=== PATIENT | female | born 1960 | race Caucasian/White ===

== ENCOUNTER → 2016-12-29 | Outpatient (CLI) | payer BC, MEDICARE, MEDICAID ==
[~2016-12-29] MED LIST: ALPR1T PO; ALPR1TAB7 PO; AMPH15TA PO; AMPH20TA PO; ATOR40TA; ATOR40TA PO; ATOR40TA70 PO; BSP10T PO; CEFP250T2 PO; CENESTIN; CHLO500T4; CITA20TA4 PO; DEXT20TA8 PO; DOXY100C2 PO; DULO30CA; DULO60CA58 PO; DULO60CA6 PO; ESTR0.62 PO; ESTR1.256; FESO4TAB PO; FESO4TAB2 PO; FLDR.1T PO; FLT05NA16 NS; FLUD0.1T7 PO; FLUT16SP22 NS; GABA800T; GBPN600T; GLUC1KIT; GLUC1KIT2 IJ; HYDR-2962 PO; HYDR-34; HYDR-3720 PO; HYDR-3820 PO; HYDR1TAB85 PO; HYDR200T46 PO; HYOS0.1217 PO; HYOS0.1283 SL; HYOS0.1296 PO; INSASP10V SC; INSU100C4 SC; INSU100I10 SC; INSU100I10 SQ; INSU100I23 SQ; Insulin Human Lispro SC; KCL10CCR PO; LEVO125T; LEVO137T17 PO; LEVO137T2 PO; LEVO137T6; LISI5TAB14; LORA1TAB5 PO; LVT.15T PO; MAGN400C PO; MELO-15 PO; MELO-170 PO; MELO-198 PO; MELO7.5T46 PO; METO10TA3 PO; MGX400T PO; MNTL10T; MNTL10T PO; MONT10TA24 PO; MULT-305 PO; NFPRILOC40 PO; NIACIN; NORT25CA PO; NRT25C; OMEP20CA12 PO; OMEP20TA2 PO; ONDA4TAB8 PO; ONDN4T PO; PANT40TA PO; PANT40TA3 PO; PENT100C3 PO; PENT100C5 PO; PHEN-566 PO; PNT40TEC PO; POTA10CA43 PO; POTA10CA68 PO; POTA10TA36 PO; PREG150C PO; PREG200C PO; PREG50C PO; PRILOSEC 40MG; PROM25SU10 PR; PROM25SU43 RC; RIZA10TA23 PO; RIZA10TA24 PO; RIZA10TA37 PO; RT-ALBUINH IH; SCR1T1 PO; SMTR50T; SUCR1ORA5 PO; SUCR1TAB PO; SUMA100T2 PO; TIZA4CAP PO; TIZA4TAB3 PO; TIZA4TAB55 PO; TRZ100T PO; ZLP10T PO; ZOLP10TA5 PO; [UNRECOGNIZED DRUG - OTHER] PO
--- OUTSIDE RECORDS SUMMARY | 2016-12-29 10:38 | XMS REPORT | Continuity of Care Document ---
Author Author [facility] Organization [facility] Address Unknown Phone Unavailable Care Team Providers Care Plug Shaper Hand Name Role Phone No Pcp, Na PCP Unavailable Source Comments Some departments are not documenting in the electronic medical record. If you do not see the information that you expected, contact Release of Information in the Health Information Management department at [phone] for further assistance in locating additional records.[facility] Active Allergies and Adverse Reactions Not on File Current Medications Not on file Active Problems Not on file Social History Tobacco Use Types Packs/Day Years Used Date Never Assessed Plan of Care Health Maintenance Due Date Last Done Comments Physical (Comprehensive) 1969 Exam Pertussis Vaccine 1973 Tetanus Vaccine 1979 Cervical Cancer Screening 1983 Breast Cancer Screening 2002 Colorectal Cancer 2012 Screening Influenza Vaccine 07/20/2016 Results from Last 3 Months Not on file
--- NOTE | 2017-01-03 18:26 | Diagnostic Imaging Report ---
Bilateral screening mammogram. The current study was also evaluated with a Computer Aided Detection (CAD) system. INDICATION: Screening. No current complaints stated on the questionnaire. COMPARISON: 03/08/2001. FINDINGS: The breasts are composed of heterogeneously dense parenchyma which may decrease mammographic sensitivity. There are benign-appearing calcifications seen. Allowing for technique and positional differences, no suspicious change is seen. IMPRESSION: Dense breasts with no definite change. ACR BI-RADS Category 2: Benign findings. Result letter will be mailed to the patient. Note: At least 10% of breast cancer is not imaged by mammography. Dictated by: Dictated on workstation # [id number]
== END ==
LOC: RAD 10:35
PROVIDERS: ATTEND Internal Medicine
DX: Z12.31 Encounter for screening mammogram for malignant neoplasm of breast (principal)
CPT/HCPCS: 77067

== ENCOUNTER 2017-01-16 12:02 | Observation (INO) | payer BC, MEDICARE, MEDICAID ==
[~2017-01-16] VITALS: Ht 165.1 cm; Wt 69.5 kg
[~2017-01-16 12:02] MED LIST changes: -NORT25CA PO; -POTA10CA68 PO; -RT-ALBUINH IH
[2017-01-16] MEDS: NS IV 1000 ML 1,000 ML IV SCH ×2 (13:15→22:42)
[2017-01-16] MEDS: ENOXAPARIN 40 MG/0.4 ML (LOVENOX) SYR SC SCH (13:17)
[2017-01-16] MEDS ORDERED: POTA10CA68 PO (13:56)
[2017-01-16] MEDS ORDERED: RT-ALBUINH IH (13:56)
[2017-01-16] MEDS ORDERED: METO10TA3 PO (13:56)
[2017-01-16] MEDS ORDERED: NORT25CA PO (13:56)
[2017-01-16] MEDS ORDERED: INSU100I10 SQ (13:56)
[2017-01-16 14:05] VITALS: BP 154/82
[2017-01-16 14:36] LABS: BASOPHILS % (AUTO) 0 % (0-10); EOSINOPHILS % (AUTO) 12 % (0-10); LYMPHOCYTES # (AUTO) 2.7 X 10^3 (1.0-4.0); LYMPHOCYTES % (AUTO) 31 % (12-44); MEAN CORPUSCULAR HEMOGLOBIN 27 PG (25-34); MEAN CORPUSCULAR HGB CONC 33 G/DL (32-36); MEAN CORPUSCULAR VOLUME 81 FL (80-99); MONOCYTES # (AUTO) 0.4 X 10^3 (0.0-1.0); MONOCYTES % (AUTO) 5 % (0-12); NEUTROPHILS # (AUTO) 4.7 X 10^3 (1.8-7.8); NEUTROPHILS % (AUTO) 53 % (42-75); PLATELET COUNT 53 10^3/uL (130-400); RED BLOOD COUNT 4.37 10^6/uL (4.35-5.85); RED CELL DISTRIBUTION WIDTH 14.6 % (10.0-14.5); WHITE BLOOD COUNT 8.9 10^3/uL (4.3-11.0)
[2017-01-16 15:39] LABS: ALANINE AMINOTRANSFERASE 14 U/L (0-55); ALBUMIN 3.8 G/DL (3.2-4.5); ANION GAP 13 MMOL/L (5-14); ASPARTATE AMINO TRANSFERASE 18 U/L (5-34); BILIRUBIN,TOTAL 0.5 MG/DL (0.1-1.0); BLOOD UREA NITROGEN 12 MG/DL (7-18); BUN/CREATININE RATIO 13; CALCIUM 8.5 MG/DL (8.5-10.1); CARBON DIOXIDE 21 MMOL/L (21-32); CHLORIDE 103 MMOL/L (98-107); CREATININE SERUM 0.89 MG/DL (0.60-1.30); GFR ESTIMATED > 60; GLUCOSE 241 MG/DL (70-105); POTASSIUM 3.5 MMOL/L (3.6-5.0); SODIUM 137 MMOL/L (135-145); TOTAL PROTEIN 6.2 G/DL (6.4-8.2)
[2017-01-16 16:00] VITALS: BP 188/87
--- OUTSIDE RECORDS SUMMARY | 2017-01-16 16:11 | XMS REPORT | Continuity of Care Document ---
Author Author [facility] Organization [facility] Address Unknown Phone Unavailable Care Team Providers Care Pharmacy Intake Technician Name Role Phone No Pcp, Na PCP Unavailable Source Comments Some departments are not documenting in the electronic medical record. If you do not see the information that you expected, contact Release of Information in the Health Information Management department at [phone] for further assistance in locating additional records.[facility] Active Allergies and Adverse Reactions [...]
[2017-01-16] MEDS ORDERED: NON-FORMULARY MEDICATION 1 EA EA (Sucralfate (Carafate) 1 GM) PO PRN (16:15)
[2017-01-16] MEDS ORDERED: FLUTICASONE NASAL SPRAY (FLONASE) 16 GM BTL NS PRN (16:15)
[2017-01-16] MEDS ORDERED: RT-ALBUTEROL HFA (VENTOLIN) PER PUFF IH PRN (16:15)
[2017-01-16] MEDS ORDERED: RT-ALBUTEROL SULF 2.5 MG/3 ML PRE-MIX VIAL INH PRN (16:30)
[2017-01-16] MEDS: morphine INJ 10 MG/ML 1ML (SYR OR VIAL) IV PRN (17:32)
[2017-01-16] MEDS: ALPRAZolam 1 MG (XANAX) TAB PO PRN (18:41)
[2017-01-16] MEDS: SUCRALFATE 1 GM (CARAFATE) TAB PO PRN (18:41)
[2017-01-16] MEDS: METOCLOPRAMIDE 10 MG (REGLAN) TAB PO SCH (20:23)
[2017-01-16 20:28] VITALS: BP 153/72
[2017-01-16] MEDS: ONDANSETRON 4 MG/2 ML (SDV) Z0FRAN IVP PRN (20:56)
[2017-01-16] MEDS ORDERED: NON-FORMULARY MEDICATION 1 EA EA (Pregabalin (Lyrica) 200 MG) PO SCH (21:00)
[2017-01-16] MEDS ORDERED: NON-FORMULARY MEDICATION 1 EA EA (Insulin Glargine,Hum.rec.anlog (Lantus Solostar) 10 UNIT SQ SCH (21:00)
[2017-01-16] MEDS ORDERED: [UNRECOGNIZED DRUG - OTHER] PO SCH (21:00)
[2017-01-16] MEDS ORDERED: NON-FORMULARY MEDICATION 1 EA EA (Zolpidem Tartrate 10 MG) PO SCH (21:00)
[2017-01-16] MEDS: NORTRIPTYLINE 25 MG (PAMELOR) CAP PO SCH (22:28)
[2017-01-16] MEDS: ZOLPIDEM 5 MG (AMBIEN) TAB PO SCH (22:28)
[2017-01-16] MEDS: inSUlin (REGULAR) HUMAN 1 UNIT/0.01 ML (CHARGE PER UNIT) SC SCH (22:28)
[2017-01-16] MEDS: FLUDROCORTISONE 0.1 MG (FLORINEF) TAB PO SCH (22:29)
[2017-01-16] MEDS: HYDROcodone/APAP 10 MG/325 MG (LORTAB) TAB PO PRN (22:29)
[2017-01-16] MEDS: MONTELUKAST 10 MG (SINGULAIR) TAB PO SCH (22:29)
[2017-01-16] MEDS: PREGABALIN 100 MG (LYRICA) CAPSULE PO SCH (22:30)
[2017-01-16] MEDS: inSUlin DETERMIR 1 UNIT/0.01 ML (LEVEMIR) CHARGE PER UNIT SQ SCH (22:30)
[2017-01-17] VITALS: BP 152/68
[2017-01-17] MEDS: ONDANSETRON 4 MG/2 ML (SDV) Z0FRAN IVP PRN ×4 (01:36→22:03)
[2017-01-17 04:00] VITALS: BP 152/91
[2017-01-17] MEDS: morphine INJ 10 MG/ML 1ML (SYR OR VIAL) IV PRN ×2 (04:51→09:29)
[2017-01-17] MEDS: inSUlin (REGULAR) HUMAN 1 UNIT/0.01 ML (CHARGE PER UNIT) SC SCH ×4 (06:00→22:00)
[2017-01-17] MEDS: LEVOTHYROXINE 25 MCG (LEVOTHROID) TAB PO SCH (06:07)
[2017-01-17] MEDS: METOCLOPRAMIDE 10 MG (REGLAN) TAB PO SCH ×4 (06:07→22:01)
[2017-01-17] MEDS: PANTOPRAZOLE 40 MG (PROTONIX) TAB PO SCH (06:07)
[2017-01-17] MEDS: LEVOTHYROXINE 112 MCG (LEVOTHROID) TAB PO SCH (06:07)
[2017-01-17] MEDS: KCL 10 MEQ TAB (MICRO K) PO SCH (06:07)
[2017-01-17] MEDS: NS IV 1000 ML 1,000 ML IV SCH ×4 (06:46→22:53)
[2017-01-17 08:00] VITALS: BP 139/62
[2017-01-17] MEDS ORDERED: NON-FORMULARY MEDICATION 1 EA EA (Potassium Chloride (Klor-Con Sprinkle) 10 MEQ) PO SCH (09:00)
[2017-01-17] MEDS ORDERED: INSULIN GLARGINE HUM REC ANLOG 12 UNIT SQ SCH (09:00)
[2017-01-17] MEDS ORDERED: [UNRECOGNIZED DRUG - OTHER] SQ SCH (09:00)
[2017-01-17] MEDS ORDERED: NON-FORMULARY MEDICATION 1 EA EA (Levothyroxine Sodium 137 MCG) PO SCH (09:00)
[2017-01-17] MEDS: MAGNESIUM OXIDE (MAG-OX)400 MG TAB PO SCH (09:29)
[2017-01-17] MEDS: FLUDROCORTISONE 0.1 MG (FLORINEF) TAB PO SCH ×2 (09:29→22:02)
[2017-01-17] MEDS: HYDROXYCHLOROQUINE 200 MG (PLAQUENIL) TAB PO SCH (09:29)
[2017-01-17] MEDS: PREGABALIN 100 MG (LYRICA) CAPSULE PO SCH ×2 (09:29→22:01)
[2017-01-17] MEDS: ESTROGENS CONJ 0.625 MG (PREMARIN) TAB PO SCH (09:38)
[2017-01-17] MEDS: inSUlin DETERMIR 1 UNIT/0.01 ML (LEVEMIR) CHARGE PER UNIT SQ SCH ×2 (09:40→22:02)
[2017-01-17] MEDS: SUCRALFATE 1 GM (CARAFATE) TAB PO PRN (09:40)
[2017-01-17] MEDS ORDERED: CATHETER FLUSH 10 ML SYR IV PRN (09:45)
[2017-01-17] MEDS: ENOXAPARIN 40 MG/0.4 ML (LOVENOX) SYR SC SCH (11:39)
[2017-01-17] MEDS: ALPRAZolam 1 MG (XANAX) TAB PO PRN (11:39)
[2017-01-17 12:00] VITALS: BP 111/57
--- NOTE | 2017-01-17 14:22 | History & Physical-Hospitalist ---
HPI History of Present Illness: HPI/Chief Complaint The patient is a 56-year-old white female known to me. She was admitted after a phone call to the hospitalist service from her community physician Dr. Patton. He reported that she had presented to his office with complaints suggesting influenza. She complained of fever, headache, generalized body aches , nausea and vomiting. She is a type I diabetic. She reported that she had not been taking her blood sugar by fingerstick. She had not adjusted her dose as she stated she was unable to eat. She was again reminded that during illness despite the fact that one does not eat, it may be required to increase and not decrease the insulin dose. She also complained of a migraine-like headache. She requested to have morphine for her headache and other pains as she was afraid that she might vomit the hydrocodone. She has had episodes before which have been thought to be possible diabetic gastroparesis. She takes Reglan but does not think it helps much. Source: patient Date Seen 01/17/17 Attending Physician Kentrell Lanier MD PCP Migue Patton DO Referring Physician Date of Admission Jan 16, 2017 at 12:25 Home Medications & Allergies Home Medications Reviewed patient Home Medication Reconciliation Form Allergies Coded Allergies: Sulfa (Sulfonamide Antibiotics) (Verified Allergy, Unknown, 11/26/15) Past Pbidpvb-Jkfiiy-Gscaea Hx Patient Social History Alcohol Use: Denies Use Recreational Drug Use: No Smoking Status: Never a Smoker Physical Abuse Screen: No Sexual Abuse: No Recent Foreign Travel: No Contact w/other who traveled: No Recent Hopitalizations: No Recent Infectious Disease Expo: No Immunizations Up To Date Tetanus Booster (TDap): More than 5yrs Date of Pneumonia Vaccine: Aug 19, 2014 Date of Influenza Vaccine: Jul 20, 2016 Seasonal Allergies Seasonal Allergies: No Surgeries HX Surgeries: Yes (PORT,CARPAL TUNNEL, R.HIP, BILAT SHOULDER SURGERY) Surgeries: Eye Surgery, Gallbladder, Hysterectomy, Orthopedic, Vascular Surgery Respiratory Hx Respiratory Disorders: Yes Cardiovascular Hx Cardiovascular Disorders: Yes Cardiac Disorders: High Cholesterol, Hypertension Neurological Hx Neurological Disorders: Yes Neurological Disorders: Concussion, Headaches /Migraines, Neuropathy, Traumatic Brain Injury Reproductive System Hx Reproductive Disorders: No Sexually Transmitted Disease: No HIV/AIDS: No Female Reproductive Disorders: Denies 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 Genitourinary Hx Genitourinary Disorders: No Gastrointestinal Hx Gastrointestinal Disorders: Yes (GASTROPARESIS) Gastrointestinal Disorders: Ulcer Musculoskeletal Hx Musculoskeletal Disorders: Yes Musculoskeletal Disorders: Arthritis Endocrine Hx Endocrine Disorders: Yes (ADRENAL DISEASE) Endocrine Disorders: Diabetes, Insulin dep, Hypothyroidsim HEENT HX ENT Disorders: Yes HEENT Disorders: Chronic Ear Infection Loss of Vision: Denies Hearing Impairment: Denies Cancer Hx Cancer: No Psychosocial Hx Psychiatric Problems: Yes Behavioral Health Disorders: Anxiety, Depression Integumentary HX Skin/Integumentary Disorder: No Blood Transfusions Hx Blood Disorders: No Adverse Reaction to a Blood Tr: No Family Medical History Significant Family History: Cancer Family Hx: Alcoholism 09 BROTHER Cancer 03 MOTHER (PANCREATIC CA) Myocardial infarction 03 MOTHER Review of Systems Constitutional: see HPI Respiratory: cough Cardiovascular: no symptoms reported Gastrointestinal: diarrhea heartburn nausea vomiting Genitourinary: no symptoms reported Musculoskeletal: muscle pain muscle weakness Skin: no symptoms reported Psychiatric/Neurological: Anxiety Depressed Physical Exam Physical Exam Vital Signs Vital Sign - Last 12Hours 01/16/17 14:05 Temp 97.7 Pulse 105 Resp 20 B/P 154/82 Pulse Ox 97 O2 Delivery Room Air Capillary Refill : Less Than 3 Seconds General Appearance: Mild Distress Eyes: Bilateral Eye Normal Inspection HEENT: PERRL/EOMI Normal ENT Inspection Pharynx Normal Neck: Full Range of Motion Normal Inspection Non Tender Supple Carotid Bruit Respiratory: Chest Non Tender Lungs Clear Normal Breath Sounds No Accessory Muscle Use No Respiratory Distress Cardiovascular: Regular Rate, Rhythm No Edema No Gallop No JVD No Murmur Normal Peripheral Pulses Gastrointestinal: Abnormal Bowel Sounds (decreased) Back: Normal Inspection No CVA Tenderness No Vertebral Tenderness Extremity: Normal Capillary Refill Normal Inspection Normal Range of Motion Non Tender No Calf Tenderness No Pedal Edema Skin: Normal Color Warm/Dry Lymphatic: No Adenopathy Results Results/Procedures Lab Laboratory Tests 01/16/17 14:27 01/16/17 15:05 Assessment/Plan Admission Diagnosis Generalized headache and myalgias suggesting viral syndrome. 2.type I diabetes. 3.gastroenteritis versus gastroparesis. 4.it is noted that she is negative on swabs for influenza A and B. Assessment and Plan 1.IV fluid support. 2.Adjust insulin as needed. 3.advanced diet Clinical Quality Measures DVT/VTE Risk/Contraindication: Risk Factor Score Per Nursin RFS Level Per Nursing on Admit: 1=Low/No VTE PPX KENTRELL LANIER MD Jan 17, 2017 14:22
[2017-01-17] MEDS: HYDROcodone/APAP 10 MG/325 MG (LORTAB) TAB PO PRN ×2 (14:45→22:01)
[2017-01-17 16:31] VITALS: BP 114/64
[2017-01-17 20:46] VITALS: BP 134/59
[2017-01-17] MEDS: NORTRIPTYLINE 25 MG (PAMELOR) CAP PO SCH (22:01)
[2017-01-17] MEDS: ZOLPIDEM 5 MG (AMBIEN) TAB PO SCH (22:02)
[2017-01-17] MEDS: MONTELUKAST 10 MG (SINGULAIR) TAB PO SCH (22:02)
[2017-01-18] VITALS: BP 131/63
[2017-01-18 04:00] VITALS: BP 153/74
[2017-01-18] MEDS: HYDROcodone/APAP 10 MG/325 MG (LORTAB) TAB PO PRN (04:01)
[2017-01-18] MEDS: inSUlin (REGULAR) HUMAN 1 UNIT/0.01 ML (CHARGE PER UNIT) SC SCH ×2 (06:00→11:46)
[2017-01-18] MEDS: KCL 10 MEQ TAB (MICRO K) PO SCH (06:44)
[2017-01-18] MEDS: LEVOTHYROXINE 112 MCG (LEVOTHROID) TAB PO SCH (06:45)
[2017-01-18] MEDS: LEVOTHYROXINE 25 MCG (LEVOTHROID) TAB PO SCH (06:45)
[2017-01-18] MEDS: PANTOPRAZOLE 40 MG (PROTONIX) TAB PO SCH (06:46)
[2017-01-18] MEDS: METOCLOPRAMIDE 10 MG (REGLAN) TAB PO SCH ×2 (06:46→11:00)
[2017-01-18] MEDS: NS IV 1000 ML 1,000 ML IV SCH (06:49)
[2017-01-18 08:00] VITALS: BP 144/68
[2017-01-18] MEDS: ALPRAZolam 1 MG (XANAX) TAB PO PRN (08:42)
[2017-01-18] MEDS: FLUDROCORTISONE 0.1 MG (FLORINEF) TAB PO SCH (08:42)
[2017-01-18] MEDS: ESTROGENS CONJ 0.625 MG (PREMARIN) TAB PO SCH (08:42)
[2017-01-18] MEDS: HYDROXYCHLOROQUINE 200 MG (PLAQUENIL) TAB PO SCH (08:42)
[2017-01-18] MEDS: MAGNESIUM OXIDE (MAG-OX)400 MG TAB PO SCH (08:42)
[2017-01-18] MEDS: PREGABALIN 100 MG (LYRICA) CAPSULE PO SCH (08:43)
[2017-01-18] MEDS: inSUlin DETERMIR 1 UNIT/0.01 ML (LEVEMIR) CHARGE PER UNIT SQ SCH (08:43)
--- NOTE | 2017-01-18 10:37 | Discharge Summary-Hospitalist ---
Diagnosis/Chief Complaint Date of Admission Jan 16, 2017 at 12:25 Date of Discharge Admission Diagnosis Generalized headache and myalgias suggesting viral syndrome. 2.type I diabetes. 3.gastroenteritis versus gastroparesis. 4.it is noted that she is negative on swabs for influenza A and B. Discharge Diagnosis Generalized headache and myalgias suggesting viral syndrome. 2.type I diabetes. 3.gastroenteritis versus gastroparesis. 4.negative on swabs for influenza A and B. Reason Hospital Visit/Course The patient is a 56-year-old white female known to me. She was admitted after a phone call to the hospitalist service from her community physician Dr. Patton. He reported that she had presented to his office with complaints suggesting influenza. She complained of fever, headache, generalized body aches , nausea and vomiting. She is a type I diabetic. She reported that she had not been taking her blood sugar by fingerstick. She had not adjusted her dose as she stated she was unable to eat. She was again reminded that during illness despite the fact that one does not eat, it may be required to increase and not decrease the insulin dose. She also complained of a migraine-like headache. She requested to have morphine for her headache and other pains as she was afraid that she might vomit the hydrocodone. She has had episodes before which have been thought to be possible diabetic gastroparesis. She takes Reglan but does not think it helps much. 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 Pt ate breakfast and is stable for DC. Patient Interview: Pt states that she sees Dr. Patton every [address] Valdez encourages pt to have a close follow-up with Dr. Patton. Pt also sees Dr. Heath in [place] for Botox every 3 months. Physical exam stable. Pt states that she has sufficient supply of Xanax and pain meds at home. Vital signs stable, pleasant, oriented 3, flat affect at the bedside Regular rate and rhythm, clear to auscultation bilaterally No edema Plan: DC to home with close follow-up with Dr. Patton. Scribed by Vincent Brady under the direct supervision of Dr. Valdez. Discharge Summary Discharge Physical Examination Allergies: Coded Allergies: Sulfa (Sulfonamide Antibiotics) (Verified Allergy, Unknown, 11/26/15) Vitals & I&Os Vital Signs Date Time Temp Pulse Resp B/P Pulse Ox O2 Delivery O2 Flow Rate FiO2 01/18/17 08:00 96.6 89 18 144/68 97 Room Air Hospital Course Labs (last 24 hrs) Laboratory Tests 01/17/17 14:47: Glucometer 103 01/17/17 20:40: Glucometer 111H 01/18/17 05:11: Glucometer 46*L 01/18/17 05:37: Glucometer 64L 01/18/17 05:54: Glucometer 113H Microbiology 01/16/17 Influenza Types A,B Antigen (MIREYA) - Final, Complete Pending Labs Laboratory Tests 01/18/17 05:11: Glucometer 46 01/18/17 05:37: Glucometer 64 01/18/17 05:54: Glucometer 113 Discharge Home Medications: Active Scripts Active Reported Nortriptyline HCl 25 Mg Capsule 25 Mg PO HS Metoclopramide HCl 10 Mg Tablet 10 Mg PO QID Klor-Con Sprinkle (Potassium Chloride) 10 Meq Capsule.er 10 Meq PO DAILY Ventolin Hfa (Albuterol Sulfate) 1 Puff Puff 2 Puff IH Q8H PRN Lantus Solostar (Insulin Glargine,Hum.rec.anlog) 100 Unit/1 Ml Insuln.pen 10 Units SQ HS Carafate (Sucralfate) 1 Gm/10 Ml Oral.susp 1 Gm PO QID PRN Humalog Kwikpen (Insulin Lispro) 100 Unit/1 Ml Insuln.pen 4-6 Units SQ AC Lantus Solostar (Insulin Glargine,Hum.rec.anlog) 100 Unit/1 Ml Insuln.pen 12 Units SQ DAILY Glucagon Emergency Kit (Glucagon,Human Recombinant) 1 Mg/Kit Soln UD PRN Levothyroxine Sodium 137 Mcg Tablet 137 Mcg PO DAILY Fludrocortisone Acetate 0.1 Mg Tab 0.1 Mg PO BID Toviaz (Fesoterodine Fumarate) 4 Mg Tab.sr.24h 4 Mg PO DAILY Elmiron (Pentosan Polysulfate Sodium) 100 Mg Capsule 100 Mg PO TID Fluticasone Propionate 16 Gm [place].susp 1 [place] NS BID PRN Lyrica (Pregabalin) 200 Mg Capsule 200 Mg PO BID Montelukast Sodium 10 Mg Tablet 10 Mg PO HS Tizanidine HCl 4 Mg Tablet 4 Mg PO TID PRN Atorvastatin Calcium 40 Mg Tablet 40 Mg PO DAILY Pantoprazole Sodium 40 Mg Tablet.dr 40 Mg PO DAILY Zolpidem Tartrate 10 Mg Tablet 10 Mg PO HS Alprazolam 1 Mg Tablet 1 Mg PO TID PRN Premarin (Estrogens, Conjugated) 0.625 Mg Tablet 0.625 Mg PO DAILY Hydroxychloroquine Sulfate 200 Mg Tablet 200 Mg PO DAILY Duloxetine HCl 60 Mg Capsule.dr 60 Mg PO BID Hydrocodon-Acetaminophn 10-325 (Hydrocodone/Acetaminophen) 1 Each Tablet 1 Tab PO QID PRN Amphetamine Salts 20 mg Tablet (Dextroamphetamine/Amphetamine) 20 Mg Tablet 20 Mg PO BID Mag Ox (Magnesium Oxide) 400 Mg Tab 400 Mg PO DAILY Instructions to patient/family Please see electonic discharge instructions given to patient. Clinical Quality Measures DVT/VTE Risk/Contraindication: Risk Factor Score Per Nursin RFS Level Per Nursing on Admit: 1=Low/No VTE PPX SANDRA VALDEZ DO Jan 18, 2017 10:37
--- NOTE | 2017-01-18 11:01 | Discharge Instructions ---
Discharge Instructions Discharge Medications New, Converted or Re-Newed RX: Other (no new meds) Continued Medications: Albuterol Sulfate (Ventolin Hfa) 1 Puff Puff 2 PUFF IH Q8H PRN SHORTNESS OF BREATH Alprazolam (Alprazolam) 1 Mg Tablet 1 MG PO TID PRN ANXIETY Atorvastatin Calcium (Atorvastatin Calcium) 40 Mg Tablet 40 MG PO DAILY Dextroamphetamine/Amphetamine (Amphetamine Salts 20 mg Tablet) 20 Mg Tablet 20 MG PO BID Duloxetine HCl (Duloxetine HCl) 60 Mg Capsule.dr 60 MG PO BID Estrogens, Conjugated (Premarin) 0.625 Mg Tablet 0.625 MG PO DAILY Fesoterodine Fumarate (Toviaz) 4 Mg Tab.sr.24h 4 MG PO DAILY Fludrocortisone Acetate (Fludrocortisone Acetate) 0.1 Mg Tab 0.1 MG PO BID Fluticasone Propionate (Fluticasone Propionate) 16 Gm [place].susp 1 SPRAY NS BID PRN ALLERGIES Glucagon,Human Recombinant (Glucagon Emergency Kit) 1 Mg/Kit Soln UD PRN BLOOD SUGAR Hydrocodone/Acetaminophen (Hydrocodon-Acetaminophn 10-325) 1 Each Tablet 1 TAB PO QID PRN PAIN Hydroxychloroquine Sulfate (Hydroxychloroquine Sulfate) 200 Mg Tablet 200 MG PO DAILY Insulin Glargine,Hum.rec.anlog (Lantus Solostar) 100 Unit/1 Ml Insuln.pen 12 UNITS SQ DAILY Insulin Glargine,Hum.rec.anlog (Lantus Solostar) 100 Unit/1 Ml Insuln.pen 10 UNITS SQ HS EA Insulin Lispro (Humalog Kwikpen) 100 Unit/1 Ml Insuln.pen 4-6 UNITS SQ AC Levothyroxine Sodium (Levothyroxine Sodium) 137 Mcg Tablet 137 MCG PO DAILY Magnesium Oxide (Mag Ox) 400 Mg Tab 400 MG PO DAILY Metoclopramide HCl (Metoclopramide HCl) 10 Mg Tablet 10 MG PO QID Montelukast Sodium (Montelukast Sodium) 10 Mg Tablet 10 MG PO HS Nortriptyline HCl (Nortriptyline HCl) 25 Mg Capsule 25 MG PO HS Pantoprazole Sodium (Pantoprazole Sodium) 40 Mg Tablet.dr 40 MG PO DAILY Pentosan Polysulfate Sodium (Elmiron) 100 Mg Capsule 100 MG PO TID Potassium Chloride (Klor-Con Sprinkle) 10 Meq Capsule.er 10 MEQ PO DAILY Pregabalin (Lyrica) 200 Mg Capsule 200 MG PO BID Sucralfate (Carafate) 1 Gm/10 Ml Oral.susp 1 GM PO QID PRN STOMACH UPSET Tizanidine HCl (Tizanidine HCl) 4 Mg Tablet 4 MG PO TID PRN MUSCLE SPASMS Zolpidem Tartrate (Zolpidem Tartrate) 10 Mg Tablet 10 MG PO HS Patient Instructions Goal/Follow Up Appt: Dr Patton in 5 days Activity & Diet Discharge Diet: ADA Diet, Soft Diet Activity as Tolerated: Yes SANDRA VALDEZ DO Jan 18, 2017 11:01
== END 2017-01-18 11:00 | disposition home or self-care (01) ==
LOC: 4TH 12:25
PROVIDERS: ADMIT Internal Medicine; ATTEND Internal Medicine
DX: R51 Headache (principal); M79.1 Myalgia; E10.9 Type 1 diabetes mellitus without complications; K52.9 Noninfective gastroenteritis and colitis, unspecified; R50.9 Fever, unspecified; E03.9 Hypothyroidism, unspecified; I10 Essential (primary) hypertension; Z79.899 Other long term (current) drug therapy
CPT/HCPCS: 36415; 80053; 82962; 85025; 87804; 99211; G0378

== ENCOUNTER → 2017-02-22 | Outpatient (CLI) | payer BC, MEDICARE, MEDICAID ==
[~2017-02-22] VITALS: Ht 165.1 cm; Wt 63.5 kg
[~2017-02-22] MED LIST changes: +CATHETER FLUSH 10 ML SYR IV PRN; +NORT25CA PO; +POTA10CA68 PO; +REGADENOSON 0.4 MG/5 ML SYR (LEXISCAN) IV ONE; +RT-ALBUINH IH
[2017-02-22 07:54] VITALS: BP 129/72
[2017-02-22 08:10] VITALS: BP 121/70
[2017-02-22 08:12] VITALS: BP 127/71
[2017-02-22 08:15] VITALS: BP 125/81
--- NOTE | 2017-02-22 15:15 | STRESS TEST ---
PROCEDURE PHYSICIAN: VALENTINA LPAZA DATE OF PROCEDURE: 02/22/2017 REFERRING PHYSICIAN: Dr. Patton INDICATION: R58.83, E10.43. SUMMARY: The patient was injected with 10.37 mCi of technetium 99 Myoview and the resting images were obtained. Then the patient received Lexiscan followed by 32.3 mCi of technetium 99 Myoview. The test was supervised by Dr. Patton. The resting and stress images were reviewed and compared in the short axis, horizontal long axis, and vertical long axis views. Review of the images showed good radiotracer uptake with no significant ischemia or infarction. SSS is 0. TID value 1.05. On the gated images, the left ventricle appeared to be normal size with normal contractility. Calculated ejection fraction 73%. CONCLUSION: 1. No ischemia or infarction on SPECT images. 2. Normal left ventricular size with normal contractility. Calculated ejection fraction 73%. Job ID: [id number] Dictated Date: 02/22/2017 14:12:34 Pipe Coremaker Date: 02/22/2017 15:12:00 / peter
== END ==
LOC: CARD 06:45
PROVIDERS: ATTEND Internal Medicine
DX: R53.83 Other fatigue (principal); E10.43 Type 1 diabetes mellitus with diabetic autonomic (poly)neuropathy
CPT/HCPCS: 78452; 93017

== ENCOUNTER 2017-05-18 17:42 | Emergency (ER) | payer BC, MEDICAID ==
[~2017-05-18] VITALS: Ht 167.6 cm; Wt 68.0 kg
[~2017-05-18 17:42] MED LIST changes: -CATHETER FLUSH 10 ML SYR IV PRN; -REGADENOSON 0.4 MG/5 ML SYR (LEXISCAN) IV ONE
--- OUTSIDE RECORDS SUMMARY | 2017-05-18 17:47 | XMS REPORT | Continuity of Care Document ---
Author Author [facility] Organization [facility] Address Unknown Phone Unavailable Care Team Providers Care Property Assistant Name Role Phone No Pcp, Na PCP Unavailable Source Comments Some departments are not documenting in the electronic medical record. If you do not see the information that you expected, contact Release of Information in the Health Information Management department at [phone] for further assistance in locating additional records.[facility] Active Allergies and Adverse Reactions Not on File Current Medications Not on file Active Problems Not on file Social History Tobacco Use Types Packs/Day Years Used Date Never Assessed Plan of Care Health Maintenance Due Date Last Done Comments Hepatitis C Screening 1962 Physical (Comprehensive) 1969 Exam Pertussis Vaccine 1973 Tetanus Vaccine 1979 Cervical Cancer Screening 1983 Breast Cancer Screening 2002 Colorectal Cancer 2012 Screening Influenza Vaccine 07/20/2017 Results from Last 3 Months Not on file
--- OUTSIDE RECORDS SUMMARY | 2017-05-18 17:48 | XMS REPORT | Continuity of Care Document ---
Author Author [facility] Organization [facility] Address Unknown Phone Unavailable Allergies Active Description Code Type Severity Reaction Onset Reported/Identified Relationship to Patient Clinical Status Yes Sulfa (Sulfonamide Antibiotics) [id number] Drug Allergy Unknown N/A 11/29/2015 Medications Problems Date Dx Coded Attending Type Code Diagnosis Diagnosed By 11/17/2012 Ot 250.01 DIAB DEANNA WO COMPL, TYPE I [JUVENILE TYP 11/17/2012 Ot 276.50 VOLUME DEPLETION, UNSPECIFIED 11/17/2012 Ot 787.03 VOMITING ALONE 11/17/2012 Ot 823.81 FX FIBULA NOS-CLOSED 11/17/2012 Ot 959.7 LOWER LEG INJURY NOS 11/17/2012 Ot E000.8 OTHER EXTERNAL CAUSE STATUS 11/17/2012 Ot E849.0 ACCIDENT IN HOME 11/17/2012 Ot E927.0 OVEREXERTION FROM SUDDEN STRENUOUS MOVEM 11/17/2012 Ot V58.67 LONG-TERM (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 11/17/2012 Ot V58.69 OTH MED,LT,CURRENT USE 02/27/2013 Ot 250.61 DIAB W NEURO MANIFEST, TYPE I [JUVENILE 02/27/2013 Ot 272.4 HYPERLIPIDEMIA NEC/NOS 02/27/2013 Ot 288.60 LEUKOCYTOSIS, UNSPECIFIED 02/27/2013 Ot 357.2 NEUROPATHY IN DIABETES 02/27/2013 Ot 401.9 HYPERTENSION NOS 02/27/2013 Ot 530.81 ESOPHAGEAL REFLUX 02/27/2013 Ot 558.9 NONINF GASTROENTERIT NEC 02/27/2013 Ot 733.90 BONE CARTILAGE DIS NOS 02/27/2013 Ot 784.0 HEADACHE 12/19/2013 RUBIO MEZA DO Ot 008.8 VIRAL ENTERITIS NOS 12/19/2013 RUBIO MEZA DO Ot 244.9 HYPOTHYROIDISM NOS 12/19/2013 RUBIO MEZA DO Ot 250.00 DIAB DEANNA WO COMPL, TYPE II OR UNSPEC TY 12/19/2013 RUBIO MEZA DO Ot 255.41 GLUCOCORTICOID DEFICIENCY 12/19/2013 RUBIO MEZA DO Ot 276.51 DEHYDRATION 12/19/2013 RUBIO MEZA DO Ot 346.90 MIGRAINE UNSPECIFIED W/O INTRACT MGRN W/ 12/19/2013 RUBIO MEZA DO Ot 458.0 ORTHOSTATIC HYPOTENSION 12/19/2013 RUBIO MEZA DO Ot 493.90 ASTHMA, UNSPECIFIED 12/19/2013 RUBIO MEZA DO, Ot 530.81 ESOPHAGEAL REFLUX 12/19/2013 RUBIO MEZA DO Ot 715.90 OSTEOARTHROS NOS-UNSPEC 12/19/2013 RUBIO MEZA DO Ot 781.0 ABN INVOLUN MOVEMENT NEC 12/19/2013 RUBIO MEZA DO, Ot 785.0 TACHYCARDIA NOS 12/19/2013 RUBIO MEZA DO, Ot V58.67 LONG-TERM (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 01/20/2014 RUBIO MEZA DO Ot 244.9 HYPOTHYROIDISM NOS 01/20/2014 RUBIO MEZA DO, Ot 250.01 DIAB DEANNA WO COMPL, TYPE I [JUVENILE TYP 01/20/2014 RUBIO MEZA DO, Ot 255.41 GLUCOCORTICOID DEFICIENCY 01/20/2014 RUBIO MEZA DO, Ot 272.0 PURE HYPERCHOLESTEROLEM 01/20/2014 RUBIO MEZA DO, Ot 275.2 DIS MAGNESIUM METABOLISM 01/20/2014 RUBIO MEZA DO, Ot 276.51 DEHYDRATION 01/20/2014 RUBIO MEZA DO, Ot 276.8 HYPOPOTASSEMIA 01/20/2014 RUBIO MEZA DO Ot 287.5 THROMBOCYTOPENIA NOS 01/20/2014 RUBIO MEZA DO Ot 346.90 MIGRAINE UNSPECIFIED W/O INTRACT MGRN W/ 01/20/2014 RUBIO MEZA DO Ot 356.9 IDIO PERIPH NEURPTHY NOS 01/20/2014 RUBIO MEZA DO Ot 401.9 HYPERTENSION NOS 01/20/2014 RUBIO MEZA DO, Ot 493.90 ASTHMA, UNSPECIFIED 01/20/2014 RUBIO MEZA DO Ot 530.81 ESOPHAGEAL REFLUX 01/20/2014 RUBIO MEZA DO Ot 558.9 NONINF GASTROENTERIT NEC 01/20/2014 RUBIO MEZA DO, Ot 593.9 RENAL URETERAL DIS NOS 01/20/2014 RUBIO MEZA DO Ot 715.90 OSTEOARTHROS NOS-UNSPEC 01/20/2014 RUBIO MEZA DO, Ot V03.82 PROPHYLACTIC VACC AGAINST STREPTOCOCCUS 01/20/2014 RUBIO MEZA DO, Ot V58.67 LONG-TERM (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 02/06/2014 RUBIO MEZA DO Ot 244.9 HYPOTHYROIDISM NOS 02/06/2014 RUBIO MEZA DO Ot 250.13 DIAB W KETOACIDOSIS, TYPE I [JUVENILE TY 02/06/2014 RUBIO MEZA DO Ot 250.63 DIAB W NEURO MANIFEST, TYPE I [ JUVENILE 02/06/2014 RUBIO MEZA DO, Ot 272.0 PURE HYPERCHOLESTEROLEM 02/06/2014 RUBIO MEZA DO, Ot 276.50 VOLUME DEPLETION, UNSPECIFIED 02/06/2014 RUBIO MEZA DO, Ot 276.8 HYPOPOTASSEMIA 02/06/2014 RUBIO MEZA DO Ot 311 DEPRESSIVE DISORDER NEC 02/06/2014 RUBIO MEZA DO, Ot 346.90 MIGRAINE UNSPECIFIED W/O INTRACT MGRN W/ 02/06/2014 RUBIO MEZA DO, Ot 357.2 NEUROPATHY IN DIABETES 02/06/2014 RUBIO MEZA DO Ot 401.9 HYPERTENSION NOS 02/06/2014 RUBIO MEZA DO, Ot 413.9 ANGINA PECTORIS NEC/NOS 02/06/2014 RUBIO MEZA DO Ot 426.4 RT BUNDLE BRANCH BLOCK 02/06/2014 RUBIO MEZA DO, Ot 530.81 ESOPHAGEAL REFLUX 02/06/2014 RUBIO MEZA DO, Ot 535.50 UNSP GASTRITIS GASTRODUODENITIS W/O ME 02/06/2014 RUBIO MEZA DO, Ot 536.3 GASTROPARESIS 02/06/2014 RUBIO MEZA DO, Ot 553.3 DIAPHRAGMATIC HERNIA 02/06/2014 RUBIO MEZA DO, Ot 584.9 ACUTE RENAL FAILURE, UNSPECIFIED 02/06/2014 RUBIO MEZA DO, Ot V15.81 HX OF PAST NONCOMPLIANCE 02/06/2014 RUBIO MEZA DO, Ot V17.3 FAM HX-ISCHEM HEART DIS 02/06/2014 RUBIO MEZA DO, Ot V58.67 LONG-TERM (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 02/11/2014 RUBIO MEZA DO Ot 244.9 HYPOTHYROIDISM NOS 02/11/2014 RUBIO MEZA DO Ot 250.13 DIAB W KETOACIDOSIS, TYPE I [JUVENILE TY 02/11/2014 RUBIO MEZA DO, Ot 250.63 DIAB W NEURO MANIFEST, TYPE I [ JUVENILE 02/11/2014 RUBIO MEZA DO, Ot 263.9 PROTEIN-CHRISTIN MALNUTR NOS 02/11/2014 RUBIO MEZA DO, Ot 272.0 PURE HYPERCHOLESTEROLEM 02/11/2014 RUBIO MEZA DO, Ot 276.50 VOLUME DEPLETION, UNSPECIFIED 02/11/2014 RUBIO MEZA DO, Ot 276.8 HYPOPOTASSEMIA 02/11/2014 RUBIO MEZA DO, Ot 311 DEPRESSIVE DISORDER NEC 02/11/2014 RUBIO MEZA DO, Ot 346.90 MIGRAINE UNSPECIFIED W/O INTRACT MGRN W/ 02/11/2014 RUBIO MEZA DO, Ot 357.2 NEUROPATHY IN DIABETES 02/11/2014 RUBIO MEZA DO Ot 401.9 HYPERTENSION NOS 02/11/2014 RUBIO MEZA DO Ot 413.9 ANGINA PECTORIS NEC/NOS 02/11/2014 RUBIO MEZA DO, Ot 426.4 RT BUNDLE BRANCH BLOCK 02/11/2014 RUBIO MEZA DO, Ot 530.81 ESOPHAGEAL REFLUX 02/11/2014 RUBIO MEZA DO, Ot 535.50 UNSP GASTRITIS GASTRODUODENITIS W/O ME 02/11/2014 RUBIO MEZA DO, Ot 536.3 GASTROPARESIS 02/11/2014 RUBIO MEZA DO, Ot 553.3 DIAPHRAGMATIC HERNIA 02/11/2014 RUBIO MEZA DO, Ot 584.9 ACUTE RENAL FAILURE, UNSPECIFIED 02/11/2014 RUBIO MEZA DO, Ot V15.81 HX OF PAST NONCOMPLIANCE 02/11/2014 RUBIO MEZA DO, Ot V17.3 FAM HX-ISCHEM HEART DIS 03/06/2014 RUBIO MEZA DO, Ot 008.8 VIRAL ENTERITIS NOS 03/06/2014 RUBIO MEZA DO Ot 250.61 DIAB W NEURO MANIFEST, TYPE I [ JUVENILE 03/06/2014 MEZA DO, RUBIO J Ot 255.41 GLUCOCORTICOID DEFICIENCY 03/06/2014 RUBIO MEZA DO Ot 263.1 MALNUTRITION MILD DEGREE 03/06/2014 RUBIO MEZA DO Ot 272.4 HYPERLIPIDEMIA NEC/NOS 03/06/2014 RUBIO MEZA DO Ot 275.2 DIS MAGNESIUM METABOLISM 03/06/2014 RUBIO MEZA DO Ot 276.2 ACIDOSIS 03/06/2014 RUBIO MEZA DO Ot 276.51 DEHYDRATION 03/06/2014 RUBIO MEZA DO Ot 276.8 HYPOPOTASSEMIA 03/06/2014 RUBIO MEZA DO Ot 296.20 DEPRESS DISORDER-UNSPEC 03/06/2014 RUBIO MEZA DO Ot 346.90 MIGRAINE UNSPECIFIED W/O INTRACT MGRN W/ 03/06/2014 RUBIO MEZA DO Ot 401.9 HYPERTENSION NOS 03/06/2014 RUBIO MEZA DO Ot 530.19 OTHER ESOPHAGITIS 03/06/2014 RUBIO MEZA DO Ot 536.3 GASTROPARESIS 03/06/2014 RUBIO MEZA DO Ot 729.1 MYALGIA AND MYOSITIS NOS 03/06/2014 RUBIO MEZA DO Ot 789.00 ABDOMINAL PAIN, UNSPECIFIED SITE 03/06/2014 RUBIO MEZA DO, Ot V12.71 PERSONAL HISTORY OF PEPTIC ULCER DISEASE 03/06/2014 RUBIO MEZA DO Ot V15.52 PERSONAL HISTORY OF TRAUMATIC BRAIN INJU 03/06/2014 RUBIO MEZA DO Ot V15.81 HX OF PAST NONCOMPLIANCE 03/06/2014 RUBIO MEZA DO, Ot V58.67 LONG-TERM (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 03/29/2014 BRENDA PARDO APRN Ot 276.8 HYPOPOTASSEMIA 03/29/2014 BRENDA PARDO APRN Ot 346.90 MIGRAINE UNSPECIFIED W/O INTRACT MGRN W03/29/2014 BRENDA PARDO APRN Ot 787.01 NAUSEA WITH VOMITING 05/09/2014 RUBIO MEZA DO Ot 250.61 DIAB W NEURO MANIFEST, TYPE I [ JUVENILE 05/09/2014 RUBIO MEZA DO Ot 255.41 GLUCOCORTICOID DEFICIENCY 05/09/2014 MEZA DO, RUBIO J Ot 275.2 DIS MAGNESIUM METABOLISM 05/09/2014 RUBIO MEZA DO Ot 276.51 DEHYDRATION 05/09/2014 RUBIO MEZA DO Ot 296.20 DEPRESS DISORDER-UNSPEC 05/09/2014 RUBIO MEZA DO Ot 309.9 ADJUSTMENT REACTION NOS 05/09/2014 RUBIO EMZA DO Ot 530.81 ESOPHAGEAL REFLUX 05/09/2014 RUBIO MEZA DO Ot 536.3 GASTROPARESIS 05/09/2014 RUBIO MEZA DO Ot 729.1 MYALGIA AND MYOSITIS NOS 05/09/2014 RUBIO MEZA DO, Ot V58.67 LONG-TERM (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 06/12/2014 RUBIO MEZA DO Ot 244.9 HYPOTHYROIDISM NOS 06/12/2014 RUBIO MEZA DO Ot 250.61 DIAB W NEURO MANIFEST, TYPE I [ JUVENILE 06/12/2014 RUBIO MEZA DO Ot 255.41 GLUCOCORTICOID DEFICIENCY 06/12/2014 RUBIO MEZA DO Ot 272.4 HYPERLIPIDEMIA NEC/NOS 06/12/2014 RUBIO MEZA DO Ot 306.4 PSYCHOGENIC GI DISEASE 06/12/2014 RUBIO MEZA DO Ot 311 DEPRESSIVE DISORDER NEC 06/12/2014 RUBIO MEZA DO Ot 355.9 MONONEURITIS NOS 06/12/2014 RUBIO MEZA DO Ot 356.9 IDIO PERIPH NEURPTHY NOS 06/12/2014 RUBIO MEZA DO Ot 401.9 HYPERTENSION NOS 06/12/2014 RUBIO MEZA DO Ot 458.9 HYPOTENSION NOS 06/12/2014 RUBIO MEZA DO Ot 530.81 ESOPHAGEAL REFLUX 06/12/2014 RUBIO MEZA DO, Ot 536.3 GASTROPARESIS 06/12/2014 RUBIO MEZA DO Ot 596.51 HYPERTONICITY OF BLADDER 06/12/2014 RUBIO MEZA DO, Ot 729.1 MYALGIA AND MYOSITIS NOS 06/12/2014 RUBIO MEZA DO Ot V15.52 PERSONAL HISTORY OF TRAUMATIC BRAIN INJU 06/12/2014 RUBIO MEZA DO, Ot V58.67 LONG-TERM (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 08/07/2014 RUBIO MEZA DO Ot 244.9 HYPOTHYROIDISM NOS 08/07/2014 RUBIO MEZA DO Ot 250.61 DIAB W NEURO MANIFEST, TYPE I [ JUVENILE 08/07/2014 RUBIO MEZA DO Ot 255.41 GLUCOCORTICOID DEFICIENCY 08/07/2014 RUBIO MEZA DO Ot 276.51 DEHYDRATION 08/07/2014 RUBIO MEZA DO Ot 309.28 ADJUSTMENT DISORDER WITH MIXED ANXIETY A 08/07/2014 RUBIO MEZA DO Ot 382.9 OTITIS MEDIA NOS 08/07/2014 RUBIO MEZA DO Ot 536.3 GASTROPARESIS 08/07/2014 RUBIO MEZA DO Ot 596.51 HYPERTONICITY OF BLADDER 08/07/2014 RUBIO MEZA DO Ot 729.1 MYALGIA AND MYOSITIS NOS 08/07/2014 RUBIO MEZA DO Ot V15.52 PERSONAL HISTORY OF TRAUMATIC BRAIN INJU 11/30/2014 RUBIO MEZA DO Ot V58.81 12/21/2014 RUBIO MEZA DO, Ot V58.81 12/24/2014 Ot 346.90 12/24/2014 Ot 780.4 12/24/2014 Ot 781.2 12/24/2014 AMANDA POWERS MD Ot 599.70 12/24/2014 AMANDA POWERS MD Ot V81.5 12/24/2014 RUBIO MEZA DO Ot V58.81 12/24/2014 MARQUITA FLOREZ DO Ot 719.43 12/24/2014 MARQUITA FLOREZ DO Ot 719.43 01/07/2015 RUBIO MEZA DO Ot V58.81 01/07/2015 MARQUITA FLOREZ DO Ot 719.43 02/12/2015 MARQUITA FLOREZ DO Ot 719.43 02/19/2015 Ot 346.90 02/19/2015 Ot 780.4 02/19/2015 Ot 781.2 02/19/2015 AMANDA POWERS MD Ot 599.70 02/19/2015 AMANDA POWERS MD Ot V81.5 02/19/2015 RUBIO MEZA DO Ot V58.81 02/19/2015 MARQUITA FLOREZ DO Ot 719.43 02/24/2015 Ot 346.90 02/24/2015 Ot 780.4 02/24/2015 Ot 781.2 02/24/2015 PRIYA LIAO, AMANDA Almanzar Ot 599.70 02/24/2015 PRIYA LIAO, AMANDA Almanzar Ot V81.5 02/24/2015 RUBIO MEZA DO, Ot V58.81 02/24/2015 MARQUITA FLOREZ DO Ot 719.43 02/25/2015 RUBIO MEZA DO, Ot V58.81 FIT/ADJ VASCULAR CATHETER 04/05/2015 JF MALIK DO Ot 250.60 DIAB W NEURO MANIFEST, TYPE II OR UNSPEC 04/05/2015 JF MALIK DO Ot 300.00 ANXIETY STATE NOS 04/05/2015 JF MALIK DO Ot 536.3 GASTROPARESIS 04/05/2015 JF MALIK DO Ot 789.00 ABDOMINAL PAIN, UNSPECIFIED SITE 04/05/2015 JF MALIK DO Ot V58.67 LONG-TERM (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 04/05/2015 JF MALIK DO Ot V58.69 OTH MED,LT,CURRENT USE 04/19/2015 MARQUITA FLOREZ DO Ot 719.43 05/10/2015 MARQUITA FLOREZ DO Ot 719.43 07/03/2015 Ot 346.90 07/03/2015 Ot 780.4 07/03/2015 Ot 781.2 07/03/2015 PRIYA LIAO, AMANDA Almanzar Ot 599.70 07/03/2015 AMANDA POWERS MD Ot V81.5 07/03/2015 MARQUITA FLOREZ DO Ot 719.43 07/03/2015 RUBIO MEZA DO Ot V58.81 07/04/2015 RUBIO MEZA DO Ot 244.9 HYPOTHYROIDISM NOS 07/04/2015 RUBIO MEZA DO Ot 250.61 DIAB W NEURO MANIFEST, TYPE I [ JUVENILE 07/04/2015 RUBIO MEZA DO Ot 255.41 GLUCOCORTICOID DEFICIENCY 07/04/2015 RUBIO MEZA DO Ot 272.0 PURE HYPERCHOLESTEROLEM 07/04/2015 RUBIO MEZA DO Ot 276.51 DEHYDRATION 07/04/2015 RUBIO MEZA DO, Ot 276.8 HYPOPOTASSEMIA 07/04/2015 RUBIO MEZA DO Ot 306.4 PSYCHOGENIC GI DISEASE 07/04/2015 RUBIO MEZA DO Ot 311 DEPRESSIVE DISORDER NEC 07/04/2015 RUBIO MEZA DO Ot 401.9 HYPERTENSION NOS 07/04/2015 RUBIO MEZA DO Ot 530.81 ESOPHAGEAL REFLUX 07/04/2015 RUBIO MEZA DO Ot 536.3 GASTROPARESIS 07/04/2015 RUBIO MEZA DO Ot 558.9 NONINF GASTROENTERIT NEC 07/04/2015 RUBIO MEZA DO Ot 584.9 ACUTE RENAL FAILURE, UNSPECIFIED 07/04/2015 RUBIO MEZA DO, Ot V15.52 PERSONAL HISTORY OF TRAUMATIC BRAIN INJU 07/04/2015 RUBIO MEZA DO, Ot V58.67 LONG-TERM (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 07/27/2015 JF MALIK DO Ot 250.00 DIAB DEANNA WO COMPL, TYPE II OR UNSPEC TY 07/27/2015 JF MALIK DO Ot 578.0 HEMATEMESIS 07/27/2015 JF MALIK DO Ot 787.01 NAUSEA WITH VOMITING 07/27/2015 JF MALIK DO Ot 789.00 ABDOMINAL PAIN, UNSPECIFIED SITE 07/27/2015 JF MALIK DO, Ot V58.67 LONG-TERM (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 08/21/2015 RUBIO MEZA DO, Ot V58.81 08/22/2015 RUBIO MEZA DO Ot E10.10 TYPE 1 DIABETES MELLITUS WITH KETOACIDOS 08/22/2015 RUBIO MEZA DO Ot E10.65 TYPE 1 DIABETES MELLITUS WITH HYPERGLYCE 08/22/2015 RUBIO MEZA DO Ot E86.0 DEHYDRATION 08/22/2015 RUBIO MEZA DO Ot F32.9 MAJOR DEPRESSIVE DISORDER, SINGLE EPISOD 08/22/2015 RUBIO MEZA DO, Ot 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, UN 08/22/2015 RUBIO MEZA DO, Ot G43.919 MIGRAINE, UNSP, INTRACTABLE, WITHOUT STA 08/22/2015 RUBIO MEAZ DO, Ot R44.3 HALLUCINATIONS, UNSPECIFIED 09/17/2015 Ot 346.90 09/17/2015 Ot 780.4 09/17/2015 Ot 781.2 09/17/2015 PRIYA LIAO, AMANDA Almanzar Ot 599.70 09/17/2015 PRIYA LIAO, AMANDA Almanzar Ot V81.5 09/17/2015 MARQUITA FLOREZ DO Ot 719.43 09/17/2015 RUBIO MEZA DO Ot V58.81 10/29/2015 RUBIO MEZA DO Ot E03.9 HYPOTHYROIDISM, UNSPECIFIED 10/29/2015 RUBIO MEZA DO Ot 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 ( PO 10/29/2015 RUBIO MEZA DO Ot E10.65 TYPE 1 DIABETES MELLITUS WITH HYPERGLYCE 10/29/2015 RUBIO MEZA DO Ot E27.40 UNSPECIFIED ADRENOCORTICAL INSUFFICIENCY 10/29/2015 RUBIO MEZA DO Ot E87.6 HYPOKALEMIA 10/29/2015 RUBIO MEZA DO Ot M79.7 FIBROMYALGIA 10/29/2015 RUBIO MEZA DO Ot N32.81 OVERACTIVE BLADDER 10/29/2015 RUBIO MEZA DO Ot R11.2 NAUSEA WITH VOMITING, UNSPECIFIED 11/26/2015 RUBIO MEZA DO Ot V58.81 11/30/2015 SANDRA VALDEZ DO Ot E03.9 HYPOTHYROIDISM, UNSPECIFIED 11/30/2015 SANDRA VALDEZ DO Ot E11.9 TYPE 2 DIABETES MELLITUS WITHOUT COMPLIC 11/30/2015 SANDRA VALDEZ DO Ot E78.5 HYPERLIPIDEMIA, UNSPECIFIED 11/30/2015 SANDRA VALDEZ DO Ot E87.6 HYPOKALEMIA 11/30/2015 SANDRA VALDEZ DO Ot F32.9 MAJOR DEPRESSIVE DISORDER, SINGLE EPISOD 11/30/2015 SANDRA VALDEZ DO Ot I10 ESSENTIAL (PRIMARY) HYPERTENSION 11/30/2015 SANDRA VALDEZ DO Ot K20.9 ESOPHAGITIS, UNSPECIFIED 11/30/2015 SANDRA VALDEZ DO Ot K29.70 GASTRITIS, UNSPECIFIED, WITHOUT BLEEDING 11/30/2015 SANDRA VALDEZ DO Ot K44.9 DIAPHRAGMATIC HERNIA WITHOUT OBSTRUCTION 11/30/2015 SANDRA VALDEZ DO Ot Z79.4 [facility] (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 12/21/2015 Ot 346.90 12/21/2015 Ot 780.4 12/21/2015 Ot 781.2 12/21/2015 PRIYA LIAO, AMANDA Jenelle Ot 599.70 12/21/2015 PRIYA LIAO, AMANDA A Ot V81.5 12/21/2015 MARQUITA FLOREZ DO Ot 719.43 12/21/2015 RUBIO MEZA DO Ot V58.81 01/06/2016 REMI LIAO, JF A Ot E03.9 01/06/2016 REMI LIAO, JF A Ot E10.9 01/06/2016 REMI LIAO, JF A Ot K21.9 01/06/2016 REMI LIAO, JF A Ot K29.70 01/14/2016 REMI LIAO, JF A Ot E03.9 01/14/2016 REMI LIAO, JF A Ot E10.9 01/14/2016 REMI LIAO, JF A Ot K21.9 01/14/2016 REMI LIAO, JF A Ot K29.70 01/24/2016 REMI LIAO, JF A Ot E03.9 01/24/2016 REMI LIAO, JF A Ot E10.9 01/24/2016 REMI LIAO, JF A Ot K21.9 01/24/2016 REMI LIAO, JF A Ot K29.70 01/25/2016 THOMAS HERNANDEZ MD Ot E11.9 TYPE 2 DIABETES MELLITUS WITHOUT COMPLIC 01/25/2016 THOMAS HERNANDEZ MD Ot G43.909 MIGRAINE, UNSP, NOT INTRACTABLE, WITHOUT 01/25/2016 THOMAS HERNANDEZ MD Ot G89.29 OTHER CHRONIC PAIN 01/25/2016 THOMAS HERNANDEZ MD Ot R10.84 GENERALIZED ABDOMINAL PAIN 01/25/2016 THOMAS HERNANDEZ MD Ot 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.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 (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 01/28/2016 REMI LIAO, JF Almanzar Ot E03.9 01/28/2016 REMI LIAO, JF A Ot E10.9 01/28/2016 REMI LIAO, JF A Ot K21.9 01/28/2016 REMI LIAO, JF A Ot K29.70 04/15/2016 SANDRA VALDEZ DO Ot E03.9 HYPOTHYROIDISM, UNSPECIFIED 04/15/2016 SANDRA VALDEZ DO Ot E11.9 TYPE 2 DIABETES MELLITUS WITHOUT COMPLIC 04/15/2016 VALDEZSANDRA GARCIA DO Ot E78.5 HYPERLIPIDEMIA, UNSPECIFIED 04/15/2016 VALDEZSANDRA GARCIA DO Ot E87.6 HYPOKALEMIA 04/15/2016 VALDEZSANDRA GARCIA DO Ot F32.9 MAJOR DEPRESSIVE DISORDER, SINGLE EPISOD 04/15/2016 VALDEZANNA GARCIA DOI Ot I10 ESSENTIAL (PRIMARY) HYPERTENSION 04/15/2016 VALDEZSANDRA GARCIA DO Ot K20.9 ESOPHAGITIS, UNSPECIFIED 04/15/2016 VALDEZSANDRA GARCIA DO Ot K29.70 GASTRITIS, UNSPECIFIED, WITHOUT BLEEDING 04/15/2016 VALDEZSANDRA GARCIA DO Ot K44.9 DIAPHRAGMATIC HERNIA WITHOUT OBSTRUCTION 04/15/2016 VALDEZSANDRA GARCIA DO Ot Z79.4 [facility] (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 12/29/2016 Ot 346.90 MIGRAINE UNSPECIFIED W/O INTRACT MGRN W/ 12/29/2016 Ot 780.4 DIZZINESS AND GIDDINESS 12/29/2016 Ot 781.2 ABNORMALITY OF GAIT 12/29/2016 AMANDA POWERS MD Ot 599.70 HEMATURIA, UNSPECIFIED 12/29/2016 AMANDA POWERS MD Ot V81.5 SCREEN FOR NEPHROPATHY 12/29/2016 MARQUITA FLOREZ DO Ot 719.43 JOINT PAIN-FOREARM 12/29/2016 RUBIO MEZA DO Ot V58.81 FIT/ADJ VASCULAR CATHETER 12/29/2016 JF KHALIL MD Ot E03.9 HYPOTHYROIDISM, UNSPECIFIED 12/29/2016 JF KHALIL MD Ot E10.9 TYPE 1 DIABETES MELLITUS WITHOUT COMPLIC 12/29/2016 JF KHALIL MD Ot K21.9 GASTRO-ESOPHAGEAL REFLUX DISEASE WITHOUT 12/29/2016 JF KHALIL MD Ot K29.70 GASTRITIS, UNSPECIFIED, WITHOUT BLEEDING 01/02/2017 Ot Z12.31 ENCNTR SCREEN MAMMOGRAM FOR MALIGNANT NE 01/11/2017 Ot Z12.31 ENCNTR SCREEN MAMMOGRAM FOR MALIGNANT NE 01/18/2017 NEVAEH LANIER MD Ot E03.9 HYPOTHYROIDISM, UNSPECIFIED 01/18/2017 NEVAEH LANIER MD Ot E10.9 TYPE 1 DIABETES MELLITUS WITHOUT COMPLIC 01/18/2017 NEVAEH LANIER MD Ot I10 ESSENTIAL (PRIMARY) HYPERTENSION 01/18/2017 NEVAEH LANIER MD Ot K52.9 NONINFECTIVE GASTROENTERITIS AND COLITIS 01/18/2017 NEVAEH LANIER MD Ot M79.1 MYALGIA 01/18/2017 NEVAEH LANIER MD Ot R50.9 FEVER, UNSPECIFIED 01/18/2017 NEVAEH LANIER MD Ot R51 HEADACHE 01/18/2017 NEVAEH LANIER MD Ot Z79.899 OTHER [facility] (CURRENT) DRUG THERAPY 01/18/2017 NEVAEH LANIER MD Ot E03.9 HYPOTHYROIDISM, UNSPECIFIED 01/18/2017 NEVAEH LANIER MD Ot E10.9 TYPE 1 DIABETES MELLITUS WITHOUT COMPLIC 01/18/2017 NEVAEH LANIER MD Ot I10 ESSENTIAL (PRIMARY) HYPERTENSION 01/18/2017 NEVAEH LANIER MD Ot K52.9 NONINFECTIVE GASTROENTERITIS AND COLITIS 01/18/2017 NEVAEH LANIER MD Ot M79.1 MYALGIA 01/18/2017 NEVAEH LANIER MD Ot R50.9 FEVER, UNSPECIFIED 01/18/2017 NEVAEH LANIER MD Ot R51 HEADACHE 01/18/2017 NEVAEH LANIER MD Ot Z79.899 OTHER RADIOLOGY PHYSICIAN ASSISTANT (CURRENT) DRUG THERAPY 02/23/2017 RUBIO MEZA DO Ot 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 ( PO 02/23/2017 RUBIO MEZA DO Ot R53.83 OTHER FATIGUE 02/28/2017 RUBIO MEZA DO Ot 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 ( PO 02/28/2017 RUBIO MEZA DO Ot R53.83 OTHER FATIGUE 03/09/2017 RUBIO MEZA DO Ot 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 ( PO 03/09/2017 RUBIO MEZA DO Ot R53.83 OTHER FATIGUE 03/28/2017 RUBIO MEZA DO Ot 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 ( PO 03/28/2017 RUBIO MEZA DO Ot R53.83 OTHER FATIGUE Procedures Code Description Performed By Performed On 99.15 PARENTERAL INFUSION OF CONCENTRATED NUT. 02/05/2014 45.13 OTHER ENDOSCOPY OF SM INTEST 02/06/2014 Results Test Result Range Capillary blood glucose measurement by glucometer (mass/volume) - 01/16/17 12: 53 Capillary blood glucose measurement by glucometer (mass/volume) 273 mg/dL 70-110 Influenza virus A and B antigen detection - 01/16/17 13:15 FLU RESULT NEGATIVE FOR INFLUENZA A AND B ANTIGENS BY [facility] Complete blood count (CBC) with automated white blood cell (WBC) differential - 01/16/17 14:27 Blood leukocytes automated count (number/volume) 8.9 10*3/ uL 4.3-11.0 Blood erythrocytes automated count (number/volume) 4.37 10*6 /uL 4.35-5.85 Venous blood hemoglobin measurement (mass/volume) 11.7 g/dL 11.5-16.0 Blood hematocrit (volume fraction) 36 % 35-52 Automated erythrocyte mean corpuscular volume 81 [foz_us] 80-99 Automated erythrocyte mean corpuscular hemoglobin (mass per erythrocyte) 27 pg 25-34 Automated erythrocyte mean corpuscular hemoglobin concentration measurement ( mass/volume) 33 g/dL 32-36 Automated erythrocyte distribution width ratio 14.6 % 10.0-14.5 Automated blood platelet count (count/volume) 53 10*3/uL 130-400 Automated blood platelet mean volume measurement 10.0 [foz_ us] 7.4-10.4 Automated blood neutrophils/100 leukocytes 53 % 42-75 Automated blood lymphocytes/100 leukocytes 31 % 12-44 Blood monocytes/100 leukocytes 5 % 0-12 Automated blood eosinophils/100 leukocytes 12 % 0-10 Automated blood basophils/100 leukocytes 0 % 0-10 Blood neutrophils automated count (number/volume) 4.7 10*3 1.8-7.8 Blood lymphocytes automated count (number/volume) 2.7 10*3 1.0-4.0 Blood monocytes automated count (number/volume) 0.4 10*3 0.0-1.0 Automated eosinophil count 1.0 10*3/uL 0.0-0.3 Automated blood basophil count (count/volume) 0.0 10*3/uL 0.0-0.1 Comprehensive metabolic panel - 01/16/17 15:05 Serum or plasma sodium measurement (moles/volume) 137 mmol/ L 135-145 Serum or plasma potassium measurement (moles/volume) 3.5 mmol/L 3.6-5.0 Serum or plasma chloride measurement (moles/volume) 103 mmol /L 98-107 Carbon dioxide 21 mmol/L 21-32 Serum or plasma anion gap determination (moles/volume) 13 mmol/L 5-14 Serum or plasma urea nitrogen measurement (mass/volume) 12 mg/dL 7-18 Serum or plasma creatinine measurement (mass/volume) 0.89 mg /dL 0.60-1.30 Serum or plasma urea nitrogen/creatinine mass ratio 13 NRG Serum or plasma creatinine measurement with calculation of estimated glomerular filtration rate > NRG Serum or plasma glucose measurement (mass/volume) 241 mg/dL 70-105 Serum or plasma calcium measurement (mass/volume) 8.5 mg/dL 8.5-10.1 Serum or plasma total bilirubin measurement (mass/volume) 0.5 mg/dL 0.1-1.0 Serum or plasma alkaline phosphatase measurement (enzymatic activity/volume) 68 U/L 40-136 Serum or plasma aspartate aminotransferase measurement (enzymatic activity/ volume) 18 U/L 5-34 Serum or plasma alanine aminotransferase measurement (enzymatic activity/volume ) 14 U/L 0-55 Serum or plasma protein measurement (mass/volume) 6.2 g/dL 6.4-8.2 Serum or plasma albumin measurement (mass/volume) 3.8 g/dL 3.2-4.5 Capillary blood glucose measurement by glucometer (mass/volume) - 01/16/17 17: 48 Capillary blood glucose measurement by glucometer (mass/volume) 225 mg/dL 70-110 Capillary blood glucose measurement by glucometer (mass/volume) - 01/16/17 19: 45 Capillary blood glucose measurement by glucometer (mass/volume) 192 mg/dL 70-110 Capillary blood glucose measurement by glucometer (mass/volume) - 01/17/17 04: 08 Capillary blood glucose measurement by glucometer (mass/volume) 73 mg/dL 70-110 Capillary blood glucose measurement by glucometer (mass/volume) - 01/17/17 09: 39 Capillary blood glucose measurement by glucometer (mass/volume) 137 mg/dL 70-110 Capillary blood glucose measurement by glucometer (mass/volume) - 01/17/17 14: 47 Capillary blood glucose measurement by glucometer (mass/volume) 103 mg/dL 70-110 Capillary blood glucose measurement by glucometer (mass/volume) - 01/17/17 20: 40 Capillary blood glucose measurement by glucometer (mass/volume) 111 mg/dL 70-110 Capillary blood glucose measurement by glucometer (mass/volume) - 01/18/17 05: 11 Capillary blood glucose measurement by glucometer (mass/volume) 46 mg/dL 70-110 Capillary blood glucose measurement by glucometer (mass/volume) - 01/18/17 05: 37 Capillary blood glucose measurement by glucometer (mass/volume) 64 mg/dL 70-110 Capillary blood glucose measurement by glucometer (mass/volume) - 01/18/17 05: 54 Capillary blood glucose measurement by glucometer (mass/volume) 113 mg/dL 70-110 Capillary blood glucose measurement by glucometer (mass/volume) - 01/18/17 11: 33 Capillary blood glucose measurement by glucometer (mass/volume) 307 mg/dL 70-110 Encounters ACCT No. Visit Date/Time Discharge Status Pt. Type Provider Facility Loc./Unit Complaint [id number] 01/16/2017 12:25:00 2016 11:47:00 DIS Inpatient NEVAEH LANIER MD [facility] 4TH N/V INSULIN REQUIRED DIABETES [id number] 01/25/2016 15:19:00 2015 19:23:00 DIS Emergency THOMAS HERNANDEZ MD [facility] ER MIGRAINE/STOMACH PAIN [id number] 11/26/2015 13:40:00 2015 16:40:00 DIS Outpatient SANDRA VALDEZ DO [facility] SDC PERSISTANT VOMITING HEMATEMESIS [id number] 10/26/2015 20:19:00 2014 08:38:00 DIS Inpatient RUBIO MEZA DO [facility] 4TH ABD PAIN,INTRACTABLE N/V [id number] 08/21/2015 13:57:00 2014 11:26:00 DIS Inpatient RUBIO MEZA DO [facility] SURGICAL INTRACTABLE HEADACHE N/ V [id number] 07/26/2015 21:39:00 2014 02:16:00 DIS Emergency JF MALIK DO [facility] ER VOMITING BLOOD [id number] 07/03/2015 01:38:00 2014 19:15:00 DIS Inpatient RUBIO MEZA DO [facility] 4TH UPPER ABDOMINAL PAIN; HEMATEMESIS;N,V,D,ACUTE [id number] 04/05/2015 15:33:00 2014 18:28:00 DIS Emergency JF MALIK DO [facility] ER VOMITING,LACK OF APPETITE [id number] 02/26/2015 00:10:00 2014 23:59:59 CLS Preadmit RUBIO MEZA DO [facility] SURG RCR PORT FLUSH [id number] 02/01/2015 13:00:00 2014 00:01:00 DIS Outpatient RUBIO MEZA DO [facility] SURG RCR PORT FLUSH [id number] 12/21/2014 12:02:00 2014 23:59:59 CLS Outpatient MARQUITA FLOREZ DO [facility] RAD WRIST PAIN ARTHSCOLOSIS OSTEOPOROSIS [id number] 08/05/2014 17:10:00 2013 13:10:00 DIS Inpatient RUBIO MEZA DO [facility] 4TH N/V HARJINDER MEDIUS [id number] 06/09/2014 21:46:00 2013 13:00:00 DIS Inpatient RUBIO MEZA DO [facility] 4TH ADRENAL INSUFFICIENCY,ABD PAIN,VOMITING [id number] 05/08/2014 12:49:00 2013 15:50:00 DIS Inpatient RUBIO MEZA DO [facility] 4TH NAUSEA VOMITING DEHYDRATION [id number] 03/29/2014 18:56:00 2013 21:59:00 DIS Emergency BRENDA PARDO APRN [facility] ER VOMITING [id number] 03/01/2014 03:30:00 2013 09:03:00 DIS Inpatient RUBIO MEZA DO [facility] 4TH ABD PAIN;HYPOKALEMIA [id number] 02/06/2014 22:53:00 2013 16:50:00 DIS Inpatient RUBIO MEZA DO [facility] 4TH SWB-DKA,ACUTE RENAL FAILURE, VOLUME DEPLETION [id number] 02/02/2014 18:16:00 2013 22:53:00 DIS Inpatient MEZA RUBIO ROGEL Chato [facility] 4TH DKA, ACUTE RENAL FAILURE, VOLUME DEPLETION [id number] 01/17/2014 15:36:00 2013 13:15:00 DIS Inpatient DERRICK ROGELRUBIO Chato [facility] 4TH HYPERGLYCEMIA, NAUSEA/ VOMITING, HYPOKALEMIA [id number] 12/18/2013 17:12:00 2013 09:40:00 DIS Inpatient RUBIO MEZA DO [facility] 4TH VIRAL GASTROENTERITIS [id number] 08/22/2013 11:21:00 2012 23:59:59 CLS Outpatient AMANDA POWERS MD [facility] RAD HEMATURIA [id number] 02/22/2017 06:45:00 ACT Outpatient DERRICK ROGELRUBIO Chato [facility] CARD R53.83,E10.43 [id number] 12/29/2016 13:05:00 Document Registration [id number] 12/21/2015 09:28:00 ACT Outpatient JF KHALIL MD [facility] CARD INTRACTABLE NAUSEA/VOMITING,GASTRITIS [id number] 12/24/2014 10:06:00 Document Registration [id number] 02/25/2013 13:22:00 Document Registration [id number] 12/11/2012 13:41:00 Document Registration [id number] 11/17/2012 19:39:00 Document Registration
--- NOTE | 2017-05-18 17:57 | ED Headache ---
General Stated Complaint: HEADACHE Source: patient Exam Limitations: no limitations History of Present Illness Time seen by provider: 17:54 Initial Comments To ER with a left occipital headache since yesterday. This is associated with a mild nausea without vomiting. She has a history of frequent headaches for which she sees a neurologist at [facility] for Botox injections every couple of months. This headache is typical of her previous migraines. Timing/Duration: 1 week Severity/Quality: moderate Location: occipital Prior Headaches/Recent Trauma: frequent headaches Associated Symptoms: No confusion, No fever/chills, nausea/vomiting Allergies and Home Medications Allergies Coded Allergies: Sulfa (Sulfonamide Antibiotics) (Verified Allergy, Unknown, 11/26/15) Home Medications Albuterol Sulfate 1 Puff Puff, 2 PUFF IH Q8H PRN for SHORTNESS OF BREATH, ( Reported) Alprazolam 1 Mg Tablet, 1 MG PO TID PRN for ANXIETY, (Reported) Atorvastatin Calcium 40 Mg Tablet, 40 MG PO DAILY, (Reported) Dextroamphetamine/Amphetamine 20 Mg Tablet, 20 MG PO BID, (Reported) Duloxetine HCl 60 Mg Capsule.dr, 60 MG PO BID, (Reported) Estrogens, Conjugated 0.625 Mg Tablet, 0.625 MG PO DAILY, (Reported) Fesoterodine Fumarate 4 Mg Tab.sr.24h, 4 MG PO DAILY, (Reported) Fludrocortisone Acetate 0.1 Mg Tab, 0.1 MG PO BID, (Reported) Fluticasone Propionate 16 Gm Laurier.susp, 1 SPRAY NS BID PRN for ALLERGIES, ( Reported) Glucagon,Human Recombinant 1 Mg/Kit Soln, UD PRN for BLOOD SUGAR, (Reported) Hydrocodone/Acetaminophen 1 Each Tablet, 1 TAB PO QID PRN for PAIN, (Reported) Hydroxychloroquine Sulfate 200 Mg Tablet, 200 MG PO DAILY, (Reported) Insulin Glargine,Hum.rec.anlog 100 Unit/1 Ml Insuln.pen, 12 UNITS SQ DAILY, ( Reported) Insulin Glargine,Hum.rec.anlog 100 Unit/1 Ml Insuln.pen, 10 UNITS SQ HS, ( Reported) Insulin Lispro 100 Unit/1 Ml Insuln.pen, 4-6 UNITS SQ AC, (Reported) Levothyroxine Sodium 137 Mcg Tablet, 137 MCG PO DAILY, (Reported) Magnesium Oxide 400 Mg Tab, 400 MG PO DAILY, (Reported) Metoclopramide HCl 10 Mg Tablet, 10 MG PO QID, (Reported) Montelukast Sodium 10 Mg Tablet, 10 MG PO HS, (Reported) Nortriptyline HCl 25 Mg Capsule, 25 MG PO HS, (Reported) Pantoprazole Sodium 40 Mg Tablet.dr, 40 MG PO DAILY, (Reported) Pentosan Polysulfate Sodium 100 Mg Capsule, 100 MG PO TID, (Reported) Potassium Chloride 10 Meq Capsule.er, 10 MEQ PO DAILY, (Reported) Pregabalin 200 Mg Capsule, 200 MG PO BID, (Reported) Sucralfate 1 Gm/10 Ml Oral.susp, 1 GM PO QID PRN for STOMACH UPSET, (Reported) Tizanidine HCl 4 Mg Tablet, 4 MG PO TID PRN for MUSCLE SPASMS, (Reported) Zolpidem Tartrate 10 Mg Tablet, 10 MG PO HS, (Reported) Constitutional: see HPI Eyes: No Symptoms Reported Ears, Nose, Mouth, Throat: no symptoms reported Respiratory: no symptoms reported Cardiovascular: no symptoms reported Genitourinary: no symptoms reported Musculoskeletal: no symptoms reported Skin: no symptoms reported Psychiatric/Neurological: No Symptoms Reported Past [id number]-Kqczur-Emwpqq Hx Patient Social History Recent Foreign Travel: No Contact w/Someone Who Travel: No Recent Hopitalizations: No Immunizations Up To Date Tetanus Booster (TDap): More than 5yrs Date of Pneumonia Vaccine: Aug 19, 2014 Date of Influenza Vaccine: Jul 20, 2016 Seasonal Allergies Seasonal Allergies: No Surgeries HX Surgeries: Yes (PORT,CARPAL TUNNEL, R.HIP, BILAT SHOULDER SURGERY) Surgeries: Eye Surgery, Gallbladder, Hysterectomy, Orthopedic, Vascular Surgery Respiratory Hx Respiratory Disorders: Yes Respiratory Disorders: Asthma Cardiovascular Hx Cardiac Disorders: Yes Cardiac Disorders: High Cholesterol, Hypertension Neurological Hx Neurological Disorders: Yes Neurological Disorders: Concussion, Headaches /Migraines, Neuropathy, Traumatic Brain Injury Reproductive System Hx Reproductive Disorders: No Sexually Transmitted Disease: No HIV/AIDS: No Female Reproductive Disorders: Denies 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 Genitourinary Hx Genitourinary Disorders: No Gastrointestinal Hx Gastrointestinal Disorders: Yes (GASTROPARESIS) Gastrointestinal Disorders: Ulcer Musculoskeletal Hx Musculoskeletal Disorders: Yes Musculoskeletal Disorders: Arthritis Endocrine Hx Endocrine Disorders: Yes (ADRENAL DISEASE) Endocrine Disorders: Diabetes, Insulin dep, Hypothyroidsim HEENT HX ENT Disorders: Yes HEENT Disorders: Chronic Ear Infection Loss of Vision: Denies Hearing Impairment: Denies Cancer Hx Cancer: No Psychosocial Hx Psychiatric Problems: Yes Behavioral Health Disorders: Anxiety, Depression Integumentary HX Skin/Integumentary Disorder: No Blood Transfusions Hx Blood Disorders: No Adverse Reaction to a Blood Tr: No Family Medical History Significant Family History: Cancer Family Medial History: Alcoholism 09 BROTHER Cancer 03 MOTHER (PANCREATIC CA) Myocardial infarction 03 MOTHER Physical Exam Vital Signs Vital Sign - Last 12Hours Capillary Refill : General Appearance: WD/WN, no apparent distress HEENT: PERRL/EOMI, normal ENT inspection Neck: non-tender, full range of motion Respiratory: no respiratory distress, no accessory muscle use Gastrointestinal: normal bowel sounds, non tender, soft Extremities: normal range of motion, non-tender Crainal Nerves: normal hearing, normal speech, PERRL Motor/Sensory: no motor deficit, no sensory deficit Skin: normal color, warm/dry Comments She arrives to the emergency room walking and talking accompanied by her . Typically she arrives in a wheelchair and refuses to speak or answer questions other than to request additional pain medications. Progress/Results/Core Measures Results/Orders My Orders Orders - BRENDA PARDO APRN Diphenhydramine Injection (Benadryl Inje (05/18/17 18:00) Prochlorperazine Injection (Compazine In (05/18/17 18:00) Ketorolac Injection (Toradol Injection) (05/18/17 18:00) Medications Given in ED Current Medications Medications Dose Ordered Sig/Reva Route Start Time Stop Time Status Last Admin Dose Admin Diphenhydramine HCl 50 mg ONCE ONCE IM 05/18/17 18:00 05/18/17 18:01 DC 05/18/17 18:01 50 MG Ketorolac Tromethamine 60 mg ONCE ONCE IM 05/18/17 18:00 05/18/17 18:01 DC 05/18/17 18:01 60 MG Prochlorperazine Edisylate 10 mg ONCE ONCE IM 05/18/17 18:00 05/18/17 18:01 DC 05/18/17 18:00 10 MG Vital Signs/I&O Vital Sign - Last 12Hours 05/18/17 05/18/17 18:01 18:01 Temp 97.3 98.1 Departure Impression Impression: Primary Impression: Headache Disposition: 01 HOME, SELF-CARE Condition: Stable Departure-Patient Inst. Decision time for Depature: 17:56 Referrals: RUBIO MEZA DO (PCP/Family) Primary Care Physician Patient Instructions: HEADACHE BRENDA PARDO APRN May 18, 2017 17:57
[2017-05-18] MEDS ORDERED: diphenhydrAMINE 50 MG/ML INJ (BENADRYL) IM ONE (18:00)
[2017-05-18] MEDS ORDERED: PROCHLORPERAZINE 10 MG/2ML INJ (COMPAZINE) IM ONE (18:00)
[2017-05-18] MEDS ORDERED: KETOROLAC 60 MG/2 ML VIAL IM ONE (18:00)
[2017-05-18 18:30] VITALS: BP 106/70
== END 2017-05-18 18:30 | disposition home or self-care (01) ==
LOC: EDUNIT# 17:42 → ER 17:44
DX: R51 Headache (principal); F41.8 Other specified anxiety disorders; E11.9 Type 2 diabetes mellitus without complications; E03.9 Hypothyroidism, unspecified; M19.90 Unspecified osteoarthritis, unspecified site; G43.909 Migraine, unspecified, not intractable, without status migrainosus; E78.00 Pure hypercholesterolemia, unspecified; I10 Essential (primary) hypertension; Z90.49 Acquired absence of other specified parts of digestive tract; Z90.89 Acquired absence of other organs; Z79.4 Long term (current) use of insulin
CPT/HCPCS: 96372; 99282

== ENCOUNTER 2017-05-30 10:26 | Outpatient (RCR) | payer BC, MEDICARE, MEDICAID ==
[~2017-05-30] VITALS: Ht 167.6 cm; Wt 59.0 kg
[2017-05-30] MEDS ORDERED: HEParin (CENTRAL IV FLUSH) 500 UNIT/5 ML SYR ONE (10:35)
[2017-05-30 10:49] VITALS: BP 130/80
[2017-05-30] MEDS ORDERED: HEParin (CENTRAL IV FLUSH) 500 UNIT/5 ML SYR IV PRN (11:00)
[2017-05-30] MEDS ORDERED: CATHETER FLUSH 10 ML SYR IV PRN (11:00)
[2017-07-22] MEDS ORDERED: ONDA8TAB9 PO (02:06)
== END 2017-08-18 | disposition home or self-care (01) ==
LOC: SDC 10:26
PROVIDERS: ATTEND Internal Medicine
DX: Z45.2 Encounter for adjustment and management of vascular access device (principal)
CPT/HCPCS: 96523

== ENCOUNTER 2017-06-08 07:39 | Emergency (ER) | payer BC, MEDICARE, MEDICAID ==
[~2017-06-08] VITALS: Ht 165.1 cm; Wt 63.5 kg
--- NOTE | 2017-06-08 08:12 | ED Neurological Problem ---
General Stated Complaint: VOMITTING,ABD PAIN,HEADACHE Source: patient, family Exam Limitations: no limitations History of Present Illness Time seen by provider: 08:07 Initial Comments This 57-year-old white female presents with a complaint of elevated glucose in the last 24 hours and associated headache similar to previous presentations from her diabetes and migraines. She is a patient of Dr. Vega. Patient denies fever, chills, hematemesis or diarrhea. The patient states that her glucoses been approximately 200. The patient has had photophobia but denies neck rigidity. Allergies and Home Medications Allergies Coded Allergies: Sulfa (Sulfonamide Antibiotics) (Verified Allergy, Unknown, 11/26/15) Home Medications Albuterol Sulfate 1 Puff Puff, 2 PUFF IH Q8H PRN for SHORTNESS OF BREATH, ( Reported) Alprazolam 1 Mg Tablet, 1 MG PO TID PRN for ANXIETY, (Reported) Atorvastatin Calcium 40 Mg Tablet, 40 MG PO DAILY, (Reported) Dextroamphetamine/Amphetamine 20 Mg Tablet, 20 MG PO BID, (Reported) Duloxetine HCl 60 Mg Capsule.dr, 60 MG PO BID, (Reported) Estrogens, Conjugated 0.625 Mg Tablet, 0.625 MG PO DAILY, (Reported) Fesoterodine Fumarate 4 Mg Tab.sr.24h, 4 MG PO DAILY, (Reported) Fludrocortisone Acetate 0.1 Mg Tab, 0.1 MG PO BID, (Reported) Fluticasone Propionate 16 Gm Hortense.susp, 1 SPRAY NS BID PRN for ALLERGIES, ( Reported) Glucagon,Human Recombinant 1 Mg/Kit Soln, UD PRN for BLOOD SUGAR, (Reported) Hydrocodone/Acetaminophen 1 Each Tablet, 1 TAB PO QID PRN for PAIN, (Reported) Hydroxychloroquine Sulfate 200 Mg Tablet, 200 MG PO DAILY, (Reported) Insulin Glargine,Hum.rec.anlog 100 Unit/1 Ml Insuln.pen, 12 UNITS SQ DAILY, ( Reported) Insulin Glargine,Hum.rec.anlog 100 Unit/1 Ml Insuln.pen, 10 UNITS SQ HS, ( Reported) Insulin Lispro 100 Unit/1 Ml Insuln.pen, 4-6 UNITS SQ AC, (Reported) Levothyroxine Sodium 137 Mcg Tablet, 137 MCG PO DAILY, (Reported) Magnesium Oxide 400 Mg Tab, 400 MG PO DAILY, (Reported) Metoclopramide HCl 10 Mg Tablet, 10 MG PO QID, (Reported) Montelukast Sodium 10 Mg Tablet, 10 MG PO HS, (Reported) Nortriptyline HCl 25 Mg Capsule, 25 MG PO HS, (Reported) Pantoprazole Sodium 40 Mg Tablet.dr, 40 MG PO DAILY, (Reported) Pentosan Polysulfate Sodium 100 Mg Capsule, 100 MG PO TID, (Reported) Potassium Chloride 10 Meq Capsule.er, 10 MEQ PO DAILY, (Reported) Pregabalin 200 Mg Capsule, 200 MG PO BID, (Reported) Sucralfate 1 Gm/10 Ml Oral.susp, 1 GM PO QID PRN for STOMACH UPSET, (Reported) Tizanidine HCl 4 Mg Tablet, 4 MG PO TID PRN for MUSCLE SPASMS, (Reported) Zolpidem Tartrate 10 Mg Tablet, 10 MG PO HS, (Reported) Constitutional: No chills, No fever Eyes: Denies Blurred Vision, Photophobia Ears, Nose, Mouth, Throat: denies ear pain Respiratory: No cough Cardiovascular: No chest pain Gastrointestinal: No abdominal pain, No diarrhea, No hematemesis, nausea, vomiting Genitourinary: No dysuria, No frequency : No Musculoskeletal: No back pain, No muscle pain Skin: No rash Psychiatric/Neurological: No Symptoms Reported Past Pcxfqdv-Jwqzpf-Ftkynx Hx Patient Social History 2nd Hand Smoke Exposure: No Recent Foreign Travel: No Contact w/Someone Who Travel: No Recent Hopitalizations: No Immunizations Up To Date Tetanus Booster (TDap): More than 5yrs Date of Pneumonia Vaccine: Aug 19, 2014 Date of Influenza Vaccine: Jul 20, 2016 Seasonal Allergies Seasonal Allergies: No Surgeries HX Surgeries: Yes (PORT,CARPAL TUNNEL, R.HIP, BILAT SHOULDER SURGERY) Surgeries: Eye Surgery, Gallbladder, Hysterectomy, Orthopedic, Vascular Surgery Respiratory Hx Respiratory Disorders: Yes Respiratory Disorders: Asthma Cardiovascular Hx Cardiac Disorders: Yes Cardiac Disorders: High Cholesterol, Hypertension Neurological Hx Neurological Disorders: Yes Neurological Disorders: Concussion, Headaches /Migraines, Neuropathy, Traumatic Brain Injury Reproductive System Hx Reproductive Disorders: No Sexually Transmitted Disease: No HIV/AIDS: No Female Reproductive Disorders: Denies 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 Genitourinary Hx Genitourinary Disorders: No Gastrointestinal Hx Gastrointestinal Disorders: Yes (GASTROPARESIS) Gastrointestinal Disorders: Ulcer Musculoskeletal Hx Musculoskeletal Disorders: Yes Musculoskeletal Disorders: Arthritis Endocrine Hx Endocrine Disorders: Yes (ADRENAL DISEASE) Endocrine Disorders: Diabetes, Insulin dep, Hypothyroidsim HEENT HX ENT Disorders: Yes HEENT Disorders: Chronic Ear Infection Loss of Vision: Denies Hearing Impairment: Denies Cancer Hx Cancer: No Psychosocial Hx Psychiatric Problems: Yes Behavioral Health Disorders: Anxiety, Depression Integumentary HX Skin/Integumentary Disorder: No Blood Transfusions Hx Blood Disorders: No Adverse Reaction to a Blood Tr: No Reviewed Nursing Assessment Reviewed/Agree w Nursing PMH: Yes Family Medical History Significant Family History: Cancer Family Medial History: Alcoholism 09 BROTHER Cancer 03 MOTHER (PANCREATIC CA) Myocardial infarction 03 MOTHER Physical Exam Vital Signs Vital Sign - Last 12Hours 06/08/17 07:56 Temp 96.7 Pulse 107 Resp 18 B/P (MAP) 144/100 Pulse Ox 98 Capillary Refill : General Appearance: mild distress HEENT: normal ENT inspection, photophobia Neck: non-tender, full range of motion, supple, normal inspection Respiratory: lungs clear Cardiovascular: regular rate, rhythm Gastrointestinal: normal bowel sounds, non tender, soft Back: normal inspection, no CVA tenderness, no vertebral tenderness Extremities: normal range of motion, non-tender, normal inspection Neurologic/Psychiatric: no motor/sensory deficits, alert, normal mood/affect, oriented x 3 Crainal Nerves: normal speech, PERRL Motor/Sensory: no motor deficit, no sensory deficit Skin: normal color, warm/dry Progress/Results/Core Measures Results/Orders Lab Results Laboratory Tests Test 06/08/17 08:59 06/08/17 09:11 Range/Units White Blood Count 10.2 4.3-11.0 10^3/uL Red Blood Count 4.38 4.35-5.85 10^6/uL Hemoglobin 11.3 L 11.5-16.0 G/DL Hematocrit 35 35-52 % Mean Corpuscular Volume 80 80-99 FL Mean Corpuscular Hemoglobin 26 25-34 PG Mean Corpuscular Hemoglobin Concent 32 32-36 G/DL Red Cell Distribution Width 15.4 H 10.0-14.5 % Platelet Count 189 130-400 10^3/uL Mean Platelet Volume 11.0 H 7.4-10.4 FL Neutrophils (%) (Auto) 56 42-75 % Lymphocytes (%) (Auto) 22 12-44 % Monocytes (%) (Auto) 5 0-12 % Eosinophils (%) (Auto) 17 H 0-10 % Basophils (%) (Auto) 1 0-10 % Neutrophils # (Auto) 5.7 1.8-7.8 X 10^3 Lymphocytes # (Auto) 2.2 1.0-4.0 X 10^3 Monocytes # (Auto) 0.5 0.0-1.0 X 10^3 Eosinophils # (Auto) 1.7 H 0.0-0.3 10^3/uL Basophils # (Auto) 0.1 0.0-0.1 10^3/uL Neutrophils % (Manual) 52 % Lymphocytes % (Manual) 27 % Monocytes % (Manual) 3 % Eosinophils % (Manual) 17 % Basophils % (Manual) 1 % Band Neutrophils 0 % Anisocytosis SLIGHT Sodium Level 135 135-145 MMOL/L Potassium Level 4.1 3.6-5.0 MMOL/L Chloride Level 103 98-107 MMOL/L Carbon Dioxide Level 18 L 21-32 MMOL/L Anion Gap 14 5-14 MMOL/L Blood Urea Nitrogen 12 7-18 MG/DL Creatinine 1.07 0.60-1.30 MG/DL Estimat Glomerular Filtration Rate 53 BUN/Creatinine Ratio 11 Glucose Level 285 H 70-105 MG/DL Calcium Level 8.3 L 8.5-10.1 MG/DL Total Bilirubin 0.4 0.1-1.0 MG/DL Aspartate Amino Transf (AST/SGOT) 20 5-34 U/L Alanine Aminotransferase (ALT/SGPT) 15 0-55 U/L Alkaline Phosphatase 73 40-136 U/L Total Protein 6.4 6.4-8.2 GM/DL Albumin 3.7 3.2-4.5 GM/DL Lipase 11 8-78 U/L Glucometer 275 H 70-110 MG/DL My Orders Orders - MARQUITA CAMPOS MD Cbc With Automated Diff (06/08/17 08:25) Comprehensive Metabolic Panel (06/08/17 08:25) Ua Culture If Indicated (06/08/17 08:25) Ns Iv 1000 Ml (Sodium Chloride 0.9%) (06/08/17 08:30) Promethazine Injection (Phenergan Injec (06/08/17 08:30) Ketorolac Injection (Toradol Injection) (06/08/17 08:30) Diphenhydramine Injection (Benadryl Inje (06/08/17 08:30) Manual Differential (06/08/17 08:59) Lipase (06/08/17 09:14) Medications Given in ED Current Medications Medications Dose Ordered Sig/Reva Route Start Time Stop Time Status Last Admin Dose Admin Diphenhydramine HCl 25 mg ONCE ONCE IVP 06/08/17 08:30 06/08/17 08:36 DC 06/08/17 08:56 25 MG Ketorolac Tromethamine 30 mg ONCE ONCE IVP 06/08/17 08:30 06/08/17 08:36 DC 06/08/17 09:00 30 MG Promethazine HCl 25 mg ONCE ONCE IVP 06/08/17 08:30 06/08/17 08:36 DC 06/08/17 08:58 25 MG Vital Signs/I&O Vital Sign - Last 12Hours 06/08/17 07:56 Temp 96.7 Pulse 107 Resp 18 B/P (MAP) 144/100 Pulse Ox 98 Progress Note : Time: 09:12 Progress Note Patient was treated with IV normal saline, Benadryl, Phenergan, and Toradol IV. Laboratory evaluation was undertaken. 10:38 After the patient was treated with them IV Benadryl, Phenergan, and Toradol the patient felt significantly improved. Patient received IV normal saline. The patient's discharge glucose was rechecked. Patient felt significantly improved to rest at home and will follow-up closely with her caregivers. Patient was discharged with Zofran. She was asked to call or return if any further problems or questions. Departure Impression Impression: Primary Impression: Migraine headache Qualified Codes: G43.009 - Migraine without aura, not intractable, without status migrainosus Additional Impressions: Nausea and vomiting Qualified Codes: R11.2 - Nausea with vomiting, unspecified Hyperglycemia Disposition: 01 HOME, SELF-CARE Condition: Improved Departure-Patient Inst. Referrals: RUBIO MEZA DO (PCP/Family) Primary Care Physician Patient Instructions: Migraine Headache (DC) Add. Discharge Instructions: Rest at home today. Zofran for nausea. Return if any problems or questions. Close follow-up with your caregiver. MARQUITA CAMPOS MD Jun 08, 2017 08:12
[2017-06-08] MEDS ORDERED: NS IV 1000 ML 1,000 ML IV SCH ×2 (08:15→08:30)
[2017-06-08] MEDS ORDERED: PROMETHAZINE INJ 25 MG/ML (PHENERGAN) AMP IVP ONE (08:30)
[2017-06-08] MEDS ORDERED: diphenhydrAMINE 50 MG/ML INJ (BENADRYL) IVP ONE (08:30)
[2017-06-08] MEDS ORDERED: KETOROLAC 30 MG/ML VIAL IVP ONE (08:30)
[2017-06-08 09:06] LABS: BASOPHILS # (AUTO) 0.1 10^3/uL (0.0-0.1); BASOPHILS % (AUTO) 1 % (0-10); EOSINOPHILS # (AUTO) 1.7 10^3/uL (0.0-0.3); EOSINOPHILS % (AUTO) 17 % (0-10); LYMPHOCYTES # (AUTO) 2.2 X 10^3 (1.0-4.0); LYMPHOCYTES % (AUTO) 22 % (12-44); MEAN CORPUSCULAR HEMOGLOBIN 26 PG (25-34); MEAN CORPUSCULAR HGB CONC 32 G/DL (32-36); MEAN CORPUSCULAR VOLUME 80 FL (80-99); MONOCYTES # (AUTO) 0.5 X 10^3 (0.0-1.0); MONOCYTES % (AUTO) 5 % (0-12); NEUTROPHILS # (AUTO) 5.7 X 10^3 (1.8-7.8); NEUTROPHILS % (AUTO) 56 % (42-75); PLATELET COUNT 189 10^3/uL (130-400); RED BLOOD COUNT 4.38 10^6/uL (4.35-5.85); RED CELL DISTRIBUTION WIDTH 15.4 % (10.0-14.5); WHITE BLOOD COUNT 10.2 10^3/uL (4.3-11.0)
[2017-06-08 09:29] LABS: ALBUMIN 3.7 GM/DL (3.2-4.5); BILIRUBIN,TOTAL 0.4 MG/DL (0.1-1.0); CALCIUM 8.3 MG/DL (8.5-10.1); CREATININE SERUM 1.07 MG/DL (0.60-1.30); POTASSIUM 4.1 MMOL/L (3.6-5.0); TOTAL PROTEIN 6.4 GM/DL (6.4-8.2)
[2017-06-08 09:37] LABS: ANISOCYTOSIS SLIGHT; BAND NEUTROPHILS 0 %; BASOPHILS % (MANUAL) 1 %; EOSINOPHILS % (MANUAL) 17 %; LYMPHOCYTES % (MANUAL) 27 %; NEUTROPHILS % (MANUAL) 52 %
[2017-06-08 10:48] VITALS: BP 123/77
== END 2017-06-08 10:53 | disposition home or self-care (01) ==
LOC: EDUNIT# 07:39 → ER 07:41
DX: E11.65 Type 2 diabetes mellitus with hyperglycemia (principal); G43.909 Migraine, unspecified, not intractable, without status migrainosus; R11.2 Nausea with vomiting, unspecified; J45.909 Unspecified asthma, uncomplicated; I10 Essential (primary) hypertension; E78.00 Pure hypercholesterolemia, unspecified; M19.90 Unspecified osteoarthritis, unspecified site; E03.9 Hypothyroidism, unspecified; F41.9 Anxiety disorder, unspecified; F32.9 Major depressive disorder, single episode, unspecified; E11.40 Type 2 diabetes mellitus with diabetic neuropathy, unspecified; Z87.820 Personal history of traumatic brain injury; Z79.4 Long term (current) use of insulin; Z82.49 Family history of ischemic heart disease and other diseases of the circulatory system; Z80.0 Family history of malignant neoplasm of digestive organs; Z90.710 Acquired absence of both cervix and uterus
CPT/HCPCS: 36415; 80053; 82962; 83690; 85007; 85027; 96361; 96374; 96375; 99282

== ENCOUNTER → 2017-07-06 | Outpatient (CLI) | payer BC, MEDICARE, MEDICAID ==
[~2017-07-06] MED LIST changes: +ALBU18HF2 IH; +CARB-88 PO; +CLIN300C3 PO; +FLUT16SP22 NSEACH; +INSU100I32 SQ; +LORA1TAB PO; +MAGN400T6 PO; +ONDA8TAB13 PO; +ONDA8TAB9 PO; +PROM25SU44 RC
--- NOTE | 2017-07-18 13:05 | ELECTROENCEPHALOPATHY REPORT ---
DATE OF SERVICE: 07/06/2017 The patient is a 57-year-old female who is having disturbing events and unresponsiveness lasting from 30 seconds to 1 minute. This study was requested to evaluate for epileptiform activity. The background rhythm consisted of 8-9 hertz, 55-75 microvolts in amplitude, bilaterally symmetrical over the vertex region which was reactive to eye opening. There was a phase reversal at T3-T4 and rhythmic activity up to 2 seconds duration. Some movement and muscle artifacts were present. The patient was awake, drowsy and asleep during this recording. Hyperventilation was not performed. Intermittent photic stimulation was done at various flash frequencies and no photic driving response was seen. IMPRESSION: This EEG is abnormal in awake and asleep states. The epileptiform activity decreased above is suggestive of seizure focus primarily on the left side and the right side cannot be excluded by EEG alone. May consider MRI brain for further evaluation. Job ID: [id number] DocumentID: [id number] Dictated Date: 07/18/2017 12:48:13 Elementary Supervisor Date: 07/18/2017 13:05:16 Dictated By: ROSANA BARFIELD MD MTDD
== END ==
LOC: RT 08:00
PROVIDERS: ATTEND Internal Medicine
DX: S09.90XA Unspecified injury of head, initial encounter (principal); X58.XXXA Exposure to other specified factors, initial encounter
CPT/HCPCS: 95819

== ENCOUNTER → 2017-07-21 | Emergency (ER) | payer BC, MEDICARE, MEDICAID ==
[~2017-07-21] VITALS: Ht 165.1 cm; Wt 63.0 kg
[~2017-07-21] MED LIST changes: +ACETAMINOPHEN 500 MG TAB (TYLENOL) PO ONE; +KCL 20 MEQ TAB (K-DUR) PO ONE; +KETOROLAC 30 MG/ML VIAL IVP ONE; +METOCLOPRAMIDE INJ 10 MG/2 ML (REGLAN) IVP STA; +NS IV 1000 ML 1,000 ML IV STA; +PROCHLORPERAZINE 10 MG/2ML INJ (COMPAZINE) IV ONE; +RX-ONDANSETRON 4 MG ODT (ZOFRAN) PPK #4 PO STA; +SUMAtriptan 6 MG/0.5 ML (IMITREX) INJ SQ ONE; +diphenhydrAMINE 50 MG/ML INJ (BENADRYL) IVP ONE
--- OUTSIDE RECORDS SUMMARY | 2017-07-21 23:52 | XMS REPORT | Clinical Summary ---
Author Author [facility] Address Unknown Phone Unavailable Care Team Providers Care Legislative Assistant Name Role Phone PCP Unavailable Source Comments Some departments are not documenting in the electronic medical record. If you do not see the information that you expected, contact Release of Information in the Health Information Management department at [phone] for further assistance in locating additional records[facility] Allergies Not on File Current Medications Not on file Active Problems Not on file Social History Tobacco Use Types Packs/Day Years Used Date Never Assessed Sex Assigned at Date Recorded Not on file Last Filed Vital Signs Not on file Plan of Treatment Health Maintenance Due Date Last Done Comments HEPATITIS C SCREENING 1962 PHYSICAL (COMPREHENSIVE) 1969 EXAM PERTUSSIS VACCINE 1973 TETANUS VACCINE 1979 CERVICAL CANCER SCREENING 1992 BREAST CANCER SCREENING 2002 COLORECTAL CANCER 2012 SCREENING INFLUENZA VACCINE 07/20/2017 Results Not on filefrom Last 3 Months
[2017-07-21 23:56] VITALS: BP 117/72
--- NOTE | 2017-07-22 00:17 | ED GI ---
General Chief Complaint: Abdominal/GI Problems Stated Complaint: VOMITING HEADACHE Nursing Triage Note: PT STATES 2 HOURS AGO STARTED VOMITTING, PT VERBALIZED NOW HAS A HEADACHE Sepsis Screen: No Definite Risk Source of Information: Patient Exam Limitations: No Limitations History of Present Illness Time Seen By Provider: 00:07 Initial Comments Patient presents to ER with proximal by 2 hours ago waking up having some nausea and vomiting times one. Shortly after that she started developing some headache. She is a history of migraines. She also has a history of diabetes and hypothyroidism. She says everybody in her family's had the stomach flu the last 3-4 days and she seemed to avoid however now she thinks she's got it. She is not having any dysuria. The past she's had previous gastroparesis and had to be given a shot of something to get over it and the ER. She does not have any nausea medicines at home. She is not taking anything for her headache however she typically uses Maxalt. She is not having any diarrhea or constipation. She has no rash or fever or chest pain. No shortness of breath or cough. Patient has been using Zofran at home but it was not helping. Allergies and Home Medications Allergies Coded Allergies: Sulfa (Sulfonamide Antibiotics) (Verified Allergy, Unknown, 11/26/15) Home Medications Albuterol Sulfate 1 Puff Puff, 2 PUFF IH Q8H PRN for SHORTNESS OF BREATH, ( Reported) Alprazolam 1 Mg Tablet, 1 MG PO TID PRN for ANXIETY, (Reported) Atorvastatin Calcium 40 Mg Tablet, 40 MG PO DAILY, (Reported) Dextroamphetamine/Amphetamine 20 Mg Tablet, 20 MG PO BID, (Reported) Duloxetine HCl 60 Mg Capsule.dr, 60 MG PO BID, (Reported) Estrogens, Conjugated 0.625 Mg Tablet, 0.625 MG PO DAILY, (Reported) Fesoterodine Fumarate 4 Mg Tab.sr.24h, 4 MG PO DAILY, (Reported) Fludrocortisone Acetate 0.1 Mg Tab, 0.1 MG PO BID, (Reported) Fluticasone Propionate 16 Gm [place].susp, 1 SPRAY NS BID PRN for ALLERGIES, ( Reported) Glucagon,Human Recombinant 1 Mg/Kit Soln, UD PRN for BLOOD SUGAR, (Reported) Hydrocodone/Acetaminophen 1 Each Tablet, 1 TAB PO QID PRN for PAIN, (Reported) Hydroxychloroquine Sulfate 200 Mg Tablet, 200 MG PO DAILY, (Reported) Insulin Glargine,Hum.rec.anlog 100 Unit/1 Ml Insuln.pen, 12 UNITS SQ DAILY, ( Reported) Insulin Glargine,Hum.rec.anlog 100 Unit/1 Ml Insuln.pen, 10 UNITS SQ HS, ( Reported) Insulin Lispro 100 Unit/1 Ml Insuln.pen, 4-6 UNITS SQ AC, (Reported) Levothyroxine Sodium 137 Mcg Tablet, 137 MCG PO DAILY, (Reported) Magnesium Oxide 400 Mg Tab, 400 MG PO DAILY, (Reported) Metoclopramide HCl 10 Mg Tablet, 10 MG PO QID, (Reported) Montelukast Sodium 10 Mg Tablet, 10 MG PO HS, (Reported) Nortriptyline HCl 25 Mg Capsule, 25 MG PO HS, (Reported) Ondansetron 8 Mg Tab.rapdis, 8 MG PO Q4H PRN for NAUSEA/VOMITING-1ST LINE, #10 Ref 0 Prescribed by: CARA LEWIS on 07/22/17 0206 Pantoprazole Sodium 40 Mg Tablet.dr, 40 MG PO DAILY, (Reported) Pentosan Polysulfate Sodium 100 Mg Capsule, 100 MG PO TID, (Reported) Potassium Chloride 10 Meq Capsule.er, 10 MEQ PO DAILY, (Reported) Pregabalin 200 Mg Capsule, 200 MG PO BID, (Reported) Sucralfate 1 Gm/10 Ml Oral.susp, 1 GM PO QID PRN for STOMACH UPSET, (Reported) Tizanidine HCl 4 Mg Tablet, 4 MG PO TID PRN for MUSCLE SPASMS, (Reported) Zolpidem Tartrate 10 Mg Tablet, 10 MG PO HS, (Reported) Review of Systems Constitutional: No chills, No diaphoresis, No fever, malaise EENTM: No Eye Pain, No Ear Pain Respiratory: Denies Cough, Denies Shortness of Air Cardiovascular: Denies Chest Pain, Denies Lightheadedness Gastrointestinal: Denies Abdomen Distended, Abdominal Pain (epigastric), Denies Constipated, Denies Diarrhea, Nausea, Vomiting Genitourinary: Denies Burning, Denies Discharge Musculoskeletal: No joint swelling, No muscle pain Skin: No pruritus, No rash Psychiatric/Neurological: See HPI, Headache, Denies Numbness, Denies Paresthesia, Denies Pre-Existing Deficit, Denies Seizure Past Yrcywvw-Oqlpaq-Cbfzce Hx Patient Social History 2nd Hand Smoke Exposure: No Recent Foreign Travel: No Contact w/Someone Who Travel: No Recent Infectious Disease Expo: No Recent Hopitalizations: No Immunizations Up To Date Tetanus Booster (TDap): More than 5yrs Date of Pneumonia Vaccine: Aug 19, 2014 Date of Influenza Vaccine: Jul 20, 2016 Seasonal Allergies Seasonal Allergies: No Surgeries History of Surgeries: Yes (PORT,CARPAL TUNNEL, R.HIP, BILAT SHOULDER SURGERY) Surgeries: Eye Surgery, Gallbladder, Hysterectomy, Orthopedic, Vascular Surgery Respiratory History of Respiratory Disorde: Yes Respiratory Disorders: Asthma Currently Using CPAP: No Currently Using BIPAP: No Cardiovascular History of Cardiac Disorders: Yes Cardiac Disorders: High Cholesterol, Hypertension Neurological History of Neurological Disord: Yes Neurological Disorders: Concussion, Headaches /Migraines, Neuropathy, Traumatic Brain Injury Reproductive System Hx Reproductive Disorders: No Sexually Transmitted Disease: No HIV/AIDS: No Female Reproductive Disorders: Denies 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 Gastrointestinal History of Gastrointestinal Di: Yes (GASTROPARESIS) Gastrointestinal Disorders: Ulcer Musculoskeletal History of Musculoskeletal Dis: Yes Musculoskeletal Disorders: Arthritis Endocrine History of Endocrine Disorders: Yes (ADRENAL DISEASE) Endocrine Disorders: Diabetes, Insulin dep, Hypothyroidsim HEENT HEENT Disorders: Chronic Ear Infection Loss of Vision: Denies Hearing Impairment: Denies Cancer History of Cancer: No Psychosocial History of Psychiatric Problem: Yes Behavioral Health Disorders: Anxiety, Depression Integumentary History of Skin or Integumenta: No Blood Transfusions History of Blood Disorders: No Adverse Reaction to a Blood Tr: No Family Medical History Significant Family History: Cancer Family Medial History: Alcoholism 09 BROTHER Cancer 03 MOTHER (PANCREATIC CA) Myocardial infarction 03 MOTHER Physical Exam Vital Signs VS - Last 72 Hours, by Label 07/21/17 23:56 Temp 97.5 Pulse 101 Resp 20 B/P (MAP) 117/72 Pulse Ox 97 Capillary Refill : Less Than 3 Seconds General Appearance: WD/WN, moderate distress HEENT: PERRL/EOMI, normal ENT inspection, pharynx normal Neck: non-tender, supple, normal inspection Respiratory: chest non-tender, lungs clear, normal breath sounds Cardiovascular: normal peripheral pulses, regular rate, rhythm, no edema Peripheral Pulses: 2+ Radial Pulses (R), 2+ Radial Pulses (L) Gastrointestinal: normal bowel sounds, soft, tenderness (over the epigastrium) Extremities: non-tender, normal inspection, normal capillary refill Neurologic/Psychiatric: alert, oriented x 3 Skin: normal color, warm/dry Progress/Results/Core Measures Results/Orders Lab Results Laboratory Tests Test 07/22/17 00:15 07/22/17 00:21 Range/Units White Blood Count 11.3 H 4.3-11.0 10^3/uL Red Blood Count 3.83 L 4.35-5.85 10^6/uL Hemoglobin 10.2 L 11.5-16.0 G/DL Hematocrit 30 L 35-52 % Mean Corpuscular Volume 79 L 80-99 FL Mean Corpuscular Hemoglobin 27 25-34 PG Mean Corpuscular Hemoglobin Concent 34 32-36 G/DL Red Cell Distribution Width 16.0 H 10.0-14.5 % Platelet Count 251 130-400 10^3/uL Mean Platelet Volume 11.0 H 7.4-10.4 FL Neutrophils (%) (Auto) 29 L 42-75 % Lymphocytes (%) (Auto) 61 H 12-44 % Monocytes (%) (Auto) 7 0-12 % Eosinophils (%) (Auto) 3 0-10 % Basophils (%) (Auto) 1 0-10 % Neutrophils # (Auto) 3.2 1.8-7.8 X 10^3 Lymphocytes # (Auto) 6.9 H 1.0-4.0 X 10^3 Monocytes # (Auto) 0.8 0.0-1.0 X 10^3 Eosinophils # (Auto) 0.3 0.0-0.3 10^3/uL Basophils # (Auto) 0.1 0.0-0.1 10^3/uL Sodium Level 142 135-145 MMOL/L Potassium Level 3.0 L 3.6-5.0 MMOL/L Chloride Level 106 98-107 MMOL/L Carbon Dioxide Level 23 21-32 MMOL/L Anion Gap 13 5-14 MMOL/L Blood Urea Nitrogen 7 7-18 MG/DL Creatinine 1.01 0.60-1.30 MG/DL Estimat Glomerular Filtration Rate 57 BUN/Creatinine Ratio 7 Glucose Level 61 L 70-105 MG/DL Calcium Level 9.0 8.5-10.1 MG/DL Magnesium Level 2.3 1.8-2.4 MG/DL Total Bilirubin 0.3 0.1-1.0 MG/DL Aspartate Amino Transf (AST/SGOT) 27 5-34 U/L Alanine Aminotransferase (ALT/SGPT) 103 H 0-55 U/L Alkaline Phosphatase 156 H 40-136 U/L Total Protein 6.5 6.4-8.2 GM/DL Albumin 3.8 3.2-4.5 GM/DL Glucometer 63 L 70-110 MG/DL My Orders Orders - CARA LEWIS Cbc With Automated Diff (07/22/17 00:07) Comprehensive Metabolic Panel (07/22/17 00:07) Magnesium (07/22/17 00:07) Ua Culture If Indicated (07/22/17 00:07) Metoclopramide Injection (Reglan Injecti (07/22/17 00:07) Ns Iv 1000 Ml (Sodium Chloride 0.9%) (07/22/17 00:07) Saline Lock/Iv-Start (07/22/17 00:07) Sumatriptan Injection (Imitrex Injection (07/22/17 00:15) Acetaminophen Tablet (Tylenol Tablet) (07/22/17 00:15) Prochlorperazine Injection (Compazine In (07/22/17 00:45) Diphenhydramine Injection (Benadryl Inje (07/22/17 00:45) Potassium Chloride (Tablet) (K Dur Table (07/22/17 01:15) Accucheck Stat ONCE (07/22/17 01:08) Ketorolac Injection (Toradol Injection) (07/22/17 01:30) Sumatriptan Injection (Imitrex Injection (07/22/17 01:30) Prochlorperazine Injection (Compazine In (07/22/17 02:00) Rx-Ondansetron Po (Rx-Zofran Po) (07/22/17 02:03) Medications Given in ED Current Medications Medications Dose Ordered Sig/Reva Route Start Time Stop Time Status Last Admin Dose Admin Acetaminophen 1,000 mg ONCE ONCE PO 07/22/17 00:15 07/22/17 00:16 DC 07/22/17 00:29 1,000 MG Diphenhydramine HCl 25 mg ONCE ONCE IVP 07/22/17 00:45 07/22/17 00:46 DC 07/22/17 00:46 25 MG Ketorolac Tromethamine 15 mg ONCE ONCE IVP 07/22/17 01:30 07/22/17 01:31 DC 07/22/17 01:26 15 MG Potassium Chloride 20 meq ONCE ONCE PO 07/22/17 01:15 07/22/17 01:16 DC 07/22/17 01:15 20 MEQ Prochlorperazine Edisylate 10 mg ONCE ONCE IV 07/22/17 00:45 07/22/17 00:46 DC 07/22/17 00:46 10 MG Prochlorperazine Edisylate 10 mg ONCE ONCE IV 07/22/17 02:00 07/22/17 02:01 DC 07/22/17 01:56 10 MG Sumatriptan Succinate 6 mg ONCE ONCE SQ 07/22/17 00:15 07/22/17 00:16 DC 07/22/17 00:31 6 MG Vital Signs/I&O Vital Sign - Last 12Hours 07/21/17 23:56 Temp 97.5 Pulse 101 Resp 20 B/P (MAP) 117/72 Pulse Ox 97 Blood Pressure Mean: 87 Point of Care Testing Finger Stick Blood Glucose: 111 Progress Note #1: Time: 00:14 Progress Note With her history of diabetes and no nausea vomiting which seems to be likely from a viral gastroenteritis as well as a migraine headache being triggered I think Cm would do double duty. We'll also hold off giving any NSAIDs as she has a history of being on anticoagulants. Instead of Maxalt we'll give her subcutaneous sumatriptan. We'll also give her a liter of IV fluids and just to be on the safe side considering her frail health we would check a urine and blood before we'll assume this is viral gastroenteritis. Progress Note #2: Time: 00:39 Progress Note Repeat blood sugar was 63 so we gave her orange juice and peanut butter and crackers when she is eating now. She seems to be tolerating this without nausea. Progress Note #3: Time: 02:04 Progress Note Patient is unable to produce urine at this time and is not very keen on getting a urinary catheter in and out. We have offered her the option of a straight catheter versus just going home and following her symptoms given that her clinical scenario fits very well for a viral gastroenteritis. We will give her some take home Zofran and send some more over to [facility] per her 's request. She is pretty somnolent now so seems at the medicines to break her migraine headaches are actually working very well and it would probably be best that she does go home and get some sleep and follow-up with her primary care physician early next week. She is been given return precautions. Departure Impression Impression: Primary Impression: Viral gastroenteritis Additional Impression: Migraine headache without aura Qualified Codes: G43.009 - Migraine without aura, not intractable, without status migrainosus Disposition: HOME, SELF-CARE Condition: Stable Departure-Patient Inst. Decision time for Depature: 02:05 Referrals: RUBIO MEZA DO (PCP/Family) Primary Care Physician Patient Instructions: Viral Gastroenteritis, Adult (DC) Add. Discharge Instructions: Use the nausea medicines every 4 hours as needed under your tongue just to keep your nausea base of that you can keep plenty of fluids down. Eating food is not as important as fluids. This should pass in 3-7 days. If it prolongs or you develop high fevers or worsening or new symptoms you can return to the ER or go to your primary care physician which ever is appropriate at the time. All discharge instructions reviewed with patient and/or family. Voiced understanding. Scripts Ondansetron (Zofran Odt) 8 Mg Tab.rapdis 8 MG PO Q4H Y for NAUSEA/VOMITING-1ST LINE, #10 TAB 0 Refills Prov: CARA LEWIS 07/22/17 Copy Copies To 1: RUBIO MEZA TITUS J Jul 22, 2017 00:17
[2017-07-22 00:26] LABS: BASOPHILS # (AUTO) 0.1 10^3/uL (0.0-0.1); BASOPHILS % (AUTO) 1 % (0-10); EOSINOPHILS # (AUTO) 0.3 10^3/uL (0.0-0.3); EOSINOPHILS % (AUTO) 3 % (0-10); LYMPHOCYTES # (AUTO) 6.9 X 10^3 (1.0-4.0); LYMPHOCYTES % (AUTO) 61 % (12-44); MEAN CORPUSCULAR HEMOGLOBIN 27 PG (25-34); MEAN CORPUSCULAR HGB CONC 34 G/DL (32-36); MEAN CORPUSCULAR VOLUME 79 FL (80-99); MONOCYTES # (AUTO) 0.8 X 10^3 (0.0-1.0); MONOCYTES % (AUTO) 7 % (0-12); NEUTROPHILS # (AUTO) 3.2 X 10^3 (1.8-7.8); NEUTROPHILS % (AUTO) 29 % (42-75); PLATELET COUNT 251 10^3/uL (130-400); RED BLOOD COUNT 3.83 10^6/uL (4.35-5.85); WHITE BLOOD COUNT 11.3 10^3/uL (4.3-11.0)
[2017-07-22 00:47] LABS: ALBUMIN 3.8 GM/DL (3.2-4.5); BILIRUBIN,TOTAL 0.3 MG/DL (0.1-1.0); CREATININE SERUM 1.01 MG/DL (0.60-1.30); MAGNESIUM 2.3 MG/DL (1.8-2.4); TOTAL PROTEIN 6.5 GM/DL (6.4-8.2)
== END | disposition home or self-care (01) ==
LOC: EDUNIT# 23:46 → ER 23:49
DX: A08.4 Viral intestinal infection, unspecified (principal); G43.909 Migraine, unspecified, not intractable, without status migrainosus; J45.909 Unspecified asthma, uncomplicated; E78.00 Pure hypercholesterolemia, unspecified; I10 Essential (primary) hypertension; E11.40 Type 2 diabetes mellitus with diabetic neuropathy, unspecified; F41.9 Anxiety disorder, unspecified; F32.9 Major depressive disorder, single episode, unspecified; E03.9 Hypothyroidism, unspecified; Z79.4 Long term (current) use of insulin; Z80.0 Family history of malignant neoplasm of digestive organs; Z82.49 Family history of ischemic heart disease and other diseases of the circulatory system; Z87.820 Personal history of traumatic brain injury; Z87.19 Personal history of other diseases of the digestive system; Z90.710 Acquired absence of both cervix and uterus
CPT/HCPCS: 36415; 80053; 82962; 83735; 85025; 96372; 96374; 96375; 96376; 99282

== ENCOUNTER 2017-09-03 11:00 | Emergency (ER) | payer BC, MEDICARE, MEDICAID ==
[~2017-09-03] VITALS: Ht 165.1 cm; Wt 63.0 kg
[~2017-09-03 11:00] MED LIST changes: -ACETAMINOPHEN 500 MG TAB (TYLENOL) PO ONE; -ALBU18HF2 IH; -CARB-88 PO; -CLIN300C3 PO; -INSU100I32 SQ; -KCL 20 MEQ TAB (K-DUR) PO ONE; -KETOROLAC 30 MG/ML VIAL IVP ONE; -LORA1TAB PO; -MAGN400T6 PO; -METOCLOPRAMIDE INJ 10 MG/2 ML (REGLAN) IVP STA; -NS IV 1000 ML 1,000 ML IV STA; -ONDA8TAB13 PO; -PROCHLORPERAZINE 10 MG/2ML INJ (COMPAZINE) IV ONE; -PROM25SU44 RC; -RX-ONDANSETRON 4 MG ODT (ZOFRAN) PPK #4 PO STA; -SUMAtriptan 6 MG/0.5 ML (IMITREX) INJ SQ ONE; -diphenhydrAMINE 50 MG/ML INJ (BENADRYL) IVP ONE
[2017-09-03] MEDS ORDERED: PREG150C PO (12:06)
[2017-09-03] MEDS ORDERED: CARB-88 PO (12:06)
[2017-09-03] MEDS ORDERED: LORA1TAB PO (12:06)
[2017-09-03] MEDS ORDERED: KETOROLAC 30 MG/ML VIAL IVP STA (12:41)
[2017-09-03] MEDS ORDERED: ORPHENADRINE 60 MG/2 ML (NORFLEX) AMP IV STA (12:41)
[2017-09-03] MEDS ORDERED: NS IV 1000 ML 1,000 ML IV ONE ×2 (12:41→14:18)
[2017-09-03] MEDS ORDERED: ONDANSETRON 4 MG/2 ML (SDV) Z0FRAN IVP ONE ×2 (12:45→14:30)
[2017-09-03 12:46] LABS: BASOPHILS # (AUTO) 0.1 10^3/uL (0.0-0.1); BASOPHILS % (AUTO) 1 % (0-10); EOSINOPHILS # (AUTO) 0.4 10^3/uL (0.0-0.3); EOSINOPHILS % (AUTO) 4 % (0-10); LYMPHOCYTES # (AUTO) 2.9 X 10^3 (1.0-4.0); LYMPHOCYTES % (AUTO) 33 % (12-44); MEAN CORPUSCULAR HEMOGLOBIN 27 PG (25-34); MEAN CORPUSCULAR HGB CONC 33 G/DL (32-36); MEAN CORPUSCULAR VOLUME 81 FL (80-99); MEAN PLATELET VOLUME 10.7 FL (7.4-10.4); MONOCYTES # (AUTO) 0.5 X 10^3 (0.0-1.0); MONOCYTES % (AUTO) 6 % (0-12); NEUTROPHILS # (AUTO) 4.7 X 10^3 (1.8-7.8); NEUTROPHILS % (AUTO) 56 % (42-75); PLATELET COUNT 292 10^3/uL (130-400); RED CELL DISTRIBUTION WIDTH 16.9 % (10.0-14.5); WHITE BLOOD COUNT 8.5 10^3/uL (4.3-11.0)
--- NOTE | 2017-09-03 12:57 | ED Headache ---
General Chief Complaint: Abdominal/GI Problems Stated Complaint: ABD PAIN/VOMITING MIGRAINE Nursing Triage Note: TO ED PER W/C CRYING ACCOMPIED BY . REPORTS THAT SINCE SAT SHE HAS BEEN SICK REPORTS THAT SHE HURTS ALL OVER. Nursing Sepsis Screen: No Definite Risk Source: patient, spouse Exam Limitations: no limitations History of Present Illness Time seen by provider: 12:05 Initial Comments 57 yo female patient presents to the ED with c/o headache, N/V and generalized abdominal pain beginning Sunday. States she has felt "sick" and hurts all over. Denies fever, chills, chest pain, SOA, dizziness. Symptoms feel similar to usual headache and chronic abdominal pain. reports patient has not been able to keep her medications down. Today she is able to drink some water. Timing/Duration: waxing and waning, other (Onset Sunday) Severity/Quality: throbbing Location: frontal Prior Headaches/Recent Trauma: chronic headaches Modifying Factors: worse with exposure to light, worse with other (sound sensitivity. vomiting worse with eating. ) Allergies and Home Medications Allergies Coded Allergies: Sulfa (Sulfonamide Antibiotics) (Verified Allergy, Unknown, 11/26/15) Home Medications Albuterol Sulfate 1 Puff Puff, 2 PUFF IH Q8H PRN for SHORTNESS OF BREATH, ( Reported) Alprazolam 1 Mg Tablet, 1 MG PO TID PRN for ANXIETY, (Reported) Atorvastatin Calcium 40 Mg Tablet, 40 MG PO DAILY, (Reported) Carbamazepine 200 Mg Tab.er.12h, (Reported) Dextroamphetamine/Amphetamine 20 Mg Tablet, 20 MG PO BID, (Reported) Duloxetine HCl 60 Mg Capsule.dr, 60 MG PO BID, (Reported) Estrogens, Conjugated 0.625 Mg Tablet, 0.625 MG PO DAILY, (Reported) Fesoterodine Fumarate 4 Mg Tab.sr.24h, 4 MG PO DAILY, (Reported) Fludrocortisone Acetate 0.1 Mg Tab, 0.1 MG PO BID, (Reported) Fluticasone Propionate 16 Gm [place].susp, 1 SPRAY NS BID PRN for ALLERGIES, ( Reported) Glucagon,Human Recombinant 1 Mg/Kit Soln, UD PRN for BLOOD SUGAR, (Reported) Hydrocodone/Acetaminophen 1 Each Tablet, 1 TAB PO QID PRN for PAIN, (Reported) Hydroxychloroquine Sulfate 200 Mg Tablet, 200 MG PO DAILY, (Reported) Insulin Glargine,Hum.rec.anlog 100 Unit/1 Ml Insuln.pen, 12 UNITS SQ DAILY, ( Reported) Insulin Glargine,Hum.rec.anlog 100 Unit/1 Ml Insuln.pen, 10 UNITS SQ HS, ( Reported) Insulin Lispro 100 Unit/1 Ml Insuln.pen, 4-6 UNITS SQ AC, (Reported) Levothyroxine Sodium 137 Mcg Tablet, 137 MCG PO DAILY, (Reported) Lorazepam 1 Mg Tablet, (Reported) Magnesium Oxide 400 Mg Tab, 400 MG PO DAILY, (Reported) Metoclopramide HCl 10 Mg Tablet, 10 MG PO QID, (Reported) Montelukast Sodium 10 Mg Tablet, 10 MG PO HS, (Reported) Nortriptyline HCl 25 Mg Capsule, 25 MG PO HS, (Reported) Ondansetron 8 Mg Tab.rapdis, 8 MG PO Q4H PRN for NAUSEA/VOMITING-1ST LINE, #10 Ref 0 Prescribed by: CARA LEWIS on 07/22/17 0206 Ondansetron 8 Mg Tab.rapdis, 8 MG PO Q6H PRN for NAUSEA/VOMITING-1ST LINE, #10 Ref 0 Prescribed by: LOUISA MACE on 09/03/17 1613 Pantoprazole Sodium 40 Mg Tablet.dr, 40 MG PO DAILY, (Reported) Pentosan Polysulfate Sodium 100 Mg Capsule, 100 MG PO TID, (Reported) Potassium Chloride 10 Meq Capsule.er, 10 MEQ PO DAILY, (Reported) Pregabalin 200 Mg Capsule, 200 MG PO BID, (Reported) Pregabalin 150 Mg Capsule, (Reported) Sucralfate 1 Gm/10 Ml Oral.susp, 1 GM PO QID PRN for STOMACH UPSET, (Reported) Tizanidine HCl 4 Mg Tablet, 4 MG PO TID PRN for MUSCLE SPASMS, (Reported) Zolpidem Tartrate 10 Mg Tablet, 10 MG PO HS, (Reported) Constitutional: No chills, No dizziness, No fever, malaise, other (fatigue and generalized weakness) Eyes: Denies Decreased Acuity, Denies Pain, Photophobia, Denies Vision Changes Ears, Nose, Mouth, Throat: denies ear pain, denies nose pain, denies nose discharge, denies throat pain Respiratory: No cough, No phlegm, No short of breath Cardiovascular: No chest pain, No edema, No syncope Gastrointestinal: abdominal pain (generalized abdominal pain), No constipation , No diarrhea, loss of appetite, nausea, vomiting Genitourinary: No decreased output, No dysuria, No frequency, No hematuria Musculoskeletal: see HPI, other (generalized bodyaches) Skin: no symptoms reported Psychiatric/Neurological: Headache, Denies Numbness, Denies Paresthesia, Denies Seizure, Denies Tingling, Denies Weakness All Other Systems Reviewed Negative Unless Noted: Yes (Negative excepted noted.) Past Zvkvxgb-Jrznoc-Muhuqp Hx Patient Social History Alcohol Use: Denies Use Recreational Drug Use: No Smoking Status: Never a Smoker 2nd Hand Smoke Exposure: No Recent Foreign Travel: No Contact w/Someone Who Travel: No Recent Infectious Disease Expo: No Recent Hopitalizations: No Immunizations Up To Date Tetanus Booster (TDap): More than 5yrs Date of Pneumonia Vaccine: Aug 19, 2014 Date of Influenza Vaccine: Jul 20, 2016 Seasonal Allergies Seasonal Allergies: No Surgeries History of Surgeries: Yes (PORT,CARPAL TUNNEL, R.HIP, BILAT SHOULDER SURGERY) Surgeries: Eye Surgery, Gallbladder, Hysterectomy, Orthopedic, Vascular Surgery Respiratory History of Respiratory Disorde: Yes Respiratory Disorders: Asthma Currently Using CPAP: No Currently Using BIPAP: No Cardiovascular History of Cardiac Disorders: Yes Cardiac Disorders: High Cholesterol, Hypertension Neurological History of Neurological Disord: Yes Neurological Disorders: Concussion, Headaches /Migraines, Neuropathy, Seizure Disorder, Traumatic Brain Injury Reproductive System Hx Reproductive Disorders: No Sexually Transmitted Disease: No HIV/AIDS: No Female Reproductive Disorders: Denies 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 Gastrointestinal History of Gastrointestinal Di: Yes (GASTROPARESIS) Gastrointestinal Disorders: Ulcer Musculoskeletal History of Musculoskeletal Dis: Yes Musculoskeletal Disorders: Arthritis Endocrine History of Endocrine Disorders: Yes (ADRENAL DISEASE) Endocrine Disorders: Diabetes, Insulin dep, Hypothyroidsim HEENT HEENT Disorders: Chronic Ear Infection Loss of Vision: Denies Hearing Impairment: Denies Cancer History of Cancer: No Psychosocial History of Psychiatric Problem: Yes Behavioral Health Disorders: Anxiety, Depression Integumentary History of Skin or Integumenta: No Blood Transfusions History of Blood Disorders: No Adverse Reaction to a Blood Tr: No Reviewed Nursing Assessment Reviewed/Agree w Nursing PMH: Yes Family Medical History Significant Family History: No Pertinent Family Hx, Cancer Family Medial History: Alcoholism 09 BROTHER Cancer 03 MOTHER (PANCREATIC CA) Myocardial infarction 03 MOTHER Physical Exam Vital Signs Vital Sign - Last 12Hours 09/03/17 11:51 Temp 97.8 Pulse 99 Resp 18 B/P (MAP) 131/90 Pulse Ox 100 Capillary Refill : Less Than 3 Seconds Progress/Results/Core Measures Results/Orders Lab Results Laboratory Tests Test 09/03/17 12:34 09/03/17 12:38 09/03/17 15:55 Range/Units White Blood Count 8.5 4.3-11.0 10^3/uL Red Blood Count 4.30 L 4.35-5.85 10^6/uL Hemoglobin 11.5 11.5-16.0 G/DL Hematocrit 35 35-52 % Mean Corpuscular Volume 81 80-99 FL Mean Corpuscular Hemoglobin 27 25-34 PG Mean Corpuscular Hemoglobin Concent 33 32-36 G/DL Red Cell Distribution Width 16.9 H 10.0-14.5 % Platelet Count 292 130-400 10^3/uL Mean Platelet Volume 10.7 H 7.4-10.4 FL Neutrophils (%) (Auto) 56 42-75 % Lymphocytes (%) (Auto) 33 12-44 % Monocytes (%) (Auto) 6 0-12 % Eosinophils (%) (Auto) 4 0-10 % Basophils (%) (Auto) 1 0-10 % Neutrophils # (Auto) 4.7 1.8-7.8 X 10^3 Lymphocytes # (Auto) 2.9 1.0-4.0 X 10^3 Monocytes # (Auto) 0.5 0.0-1.0 X 10^3 Eosinophils # (Auto) 0.4 H 0.0-0.3 10^3/uL Basophils # (Auto) 0.1 0.0-0.1 10^3/uL Sodium Level 138 135-145 MMOL/L Potassium Level 3.2 L 3.6-5.0 MMOL/L Chloride Level 100 98-107 MMOL/L Carbon Dioxide Level 25 21-32 MMOL/L Anion Gap 13 5-14 MMOL/L Blood Urea Nitrogen 12 7-18 MG/DL Creatinine 0.96 0.60-1.30 MG/DL Estimat Glomerular Filtration Rate 60 BUN/Creatinine Ratio 13 Glucose Level 121 H 70-105 MG/DL Calcium Level 8.9 8.5-10.1 MG/DL Total Bilirubin 0.4 0.1-1.0 MG/DL Aspartate Amino Transf (AST/SGOT) 19 5-34 U/L Alanine Aminotransferase (ALT/SGPT) 12 0-55 U/L Alkaline Phosphatase 86 40-136 U/L Total Protein 6.7 6.4-8.2 GM/DL Albumin 3.8 3.2-4.5 GM/DL Lipase 15 8-78 U/L Free Thyroxine 0.95 0.70-1.48 NG/DL TSH [place] Testing 9.57 H 0.35-4.94 UIU/ML Carbamazepine (Tegretol) Level 4.7 4.0-12.0 UG/ML Urine Color YELLOW Urine Clarity SLIGHTLY CLOUDY Urine pH 8 5-9 Urine Specific [place] 1.010 L 1.016-1.022 Urine Protein 2+ H NEGATIVE Urine Glucose (UA) NEGATIVE NEGATIVE Urine Ketones 4+ H NEGATIVE Urine Nitrite NEGATIVE NEGATIVE Urine Bilirubin NEGATIVE NEGATIVE Urine Urobilinogen NORMAL NORMAL MG/DL Urine Leukocyte Esterase 1+ H NEGATIVE Urine RBC (Auto) NEGATIVE NEGATIVE Urine RBC NONE /HPF Urine WBC RARE /HPF Urine Squamous Epithelial Cells 25-50 H /HPF Urine Crystals NONE /LPF Urine Bacteria MODERATE H /HPF Urine Casts NONE /LPF Urine Mucus NEGATIVE /LPF Urine Culture Indicated NO My Orders Orders - LOUISA MACE Saline Lock/Iv-Start (09/03/17 12:05) Cbc With Automated Diff (09/03/17 12:05) Comprehensive Metabolic Panel (09/03/17 12:05) Lipase (09/03/17 12:05) Ua Culture If Indicated (09/03/17 12:05) Ondansetron Injection (Zofran Injectio (09/03/17 12:45) Ketorolac Injection (Toradol Injection) (09/03/17 12:41) Orphenadrine Injection (Norflex Injectio (09/03/17 12:41) Thyroid Analyzer (09/03/17 12:41) Ns Iv 1000 Ml (Sodium Chloride 0.9%) (09/03/17 12:41) Carbamazepine (Tegretol) (09/03/17 12:41) Free T4 (Free Thyroxine) (09/03/17 12:38) Morphine Injection (Morphine Injection (09/03/17 14:18) Ondansetron Injection (Zofran Injectio (09/03/17 14:30) Ns Iv 1000 Ml (Sodium Chloride 0.9%) (09/03/17 14:18) Medications Given in ED Current Medications Medications Dose Ordered Sig/Reva Route Start Time Stop Time Status Last Admin Dose Admin Ondansetron HCl 4 mg ONCE ONCE IVP 09/03/17 12:45 09/03/17 12:46 DC 09/03/17 13:04 4 MG Ondansetron HCl 4 mg ONCE ONCE IVP 09/03/17 14:30 09/03/17 14:31 DC 09/03/17 15:37 4 MG Sodium Chloride 1,000 ml @ 0 mls/hr Q0M ONCE IV 09/03/17 12:41 09/03/17 12:43 DC 09/03/17 13:03 1,000 MLS/HR Sodium Chloride 1,000 ml @ 0 mls/hr Q0M ONCE IV 09/03/17 14:18 09/03/17 14:20 DC 09/03/17 15:35 1,000 MLS/HR Vital Signs/I&O Vital Sign - Last 12Hours 09/03/17 11:51 Temp 97.8 Pulse 99 Resp 18 B/P (MAP) 131/90 Pulse Ox 100 Intake and Output 09/04/17 00:00 Intake Total 1000 ml Balance 1000 ml Blood Pressure Mean: 104 Departure Impression Impression: Primary Impression: Migraine Additional Impressions: Abdominal pain Volume depletion Disposition: 01 HOME, SELF-CARE Condition: Improved Departure-Patient Inst. Decision time for Depature: 15:16 Referrals: RUBIO MEZA DO (PCP/Family) Primary Care Physician Patient Instructions: Abdominal Migraine (DC), Chronic Pain (DC), Dehydration, Adult (DC), Migraine Headache (DC) Add. Discharge Instructions: All discharge instructions reviewed with patient and/or family. Voiced understanding. Continue usual home medications. Drink plenty of fluids. Avoid bright lights and loud noises. Follow-up with your family practitioner for recheck tomorrow, call today for appointment time. Return to the emergency department for worsened headache, dizziness, changes in vision, changes in behavior, slurred speech, vomiting, decreased urination, shortness of air, chest pain, or any other concerns. Scripts Ondansetron (Ondansetron Odt) 8 Mg Tab.rapdis 8 MG PO Q6H Y for NAUSEA/VOMITING-1ST LINE, #10 TAB 0 Refills Prov: LOUISA MACE 09/03/17 LOUISA MACE Sep 03, 2017 12:57
[2017-09-03 13:08] LABS: ALBUMIN 3.8 GM/DL (3.2-4.5); BILIRUBIN,TOTAL 0.4 MG/DL (0.1-1.0); CALCIUM 8.9 MG/DL (8.5-10.1); CREATININE SERUM 0.96 MG/DL (0.60-1.30); POTASSIUM 3.2 MMOL/L (3.6-5.0); TOTAL PROTEIN 6.7 GM/DL (6.4-8.2)
[2017-09-03 13:28] LABS: CARBAMAZEPINE (TEGRETOL) 4.7 UG/ML (4.0-12.0)
[2017-09-03] MEDS ORDERED: morphine INJ 10 MG/ML 1ML (SYR OR VIAL) IVP STA (14:18)
[2017-09-03 16:03] LABS: BILIRUBIN,URINE NEGATIVE (NEGATIVE); KETONES,URINE 4+ (NEGATIVE); LEUKOCYTE ESTERASE ,URINE 1+ (NEGATIVE); NITRITE,URINE NEGATIVE (NEGATIVE); PH,URINE 8 (5-9); PROTEIN,URINE 2+ (NEGATIVE); UROBILINOGEN,URINE NORMAL (NORMAL)
[2017-09-03 16:13] LABS: SQUAMOUS EPITHELIAL CELL,UR 25-50 /HPF; WBC,URINE RARE /HPF
[2017-09-03] MEDS ORDERED: ONDA8TAB13 PO (16:13)
[2017-09-03] MEDS ORDERED: HYDROcodone/APAP 10 MG/325 MG (LORTAB) TAB PO STA (16:34)
[2017-09-03 16:39] VITALS: BP 128/88
[2017-09-04] MEDS ORDERED: INSU100I32 SQ (16:06)
[2017-09-04] MEDS ORDERED: MAGN400T6 PO (16:06)
[2017-09-04] MEDS ORDERED: RIZA10TA37 PO (16:06)
[2017-09-04] MEDS ORDERED: ALBU18HF2 IH (16:06)
== END 2017-09-03 16:26 | disposition home or self-care (01) ==
LOC: EDUNIT# 11:00 → ER 11:02
DX: G43.909 Migraine, unspecified, not intractable, without status migrainosus (principal); E86.9 Volume depletion, unspecified; R10.84 Generalized abdominal pain; G40.909 Epilepsy, unspecified, not intractable, without status epilepticus; J45.909 Unspecified asthma, uncomplicated; E11.40 Type 2 diabetes mellitus with diabetic neuropathy, unspecified; E03.9 Hypothyroidism, unspecified; F41.9 Anxiety disorder, unspecified; F32.9 Major depressive disorder, single episode, unspecified; E78.00 Pure hypercholesterolemia, unspecified; I10 Essential (primary) hypertension; Z79.4 Long term (current) use of insulin; Z87.820 Personal history of traumatic brain injury; Z87.19 Personal history of other diseases of the digestive system; Z90.710 Acquired absence of both cervix and uterus; Z80.0 Family history of malignant neoplasm of digestive organs; Z82.49 Family history of ischemic heart disease and other diseases of the circulatory system
CPT/HCPCS: 36415; 80053; 80156; 81000; 83690; 84439; 84443; 85025

== ENCOUNTER 2017-09-04 10:56 | Observation (INO) | payer BC, MEDICARE, MEDICAID ==
[~2017-09-04] VITALS: Ht 165.1 cm; Wt 76.8 kg
[~2017-09-04 10:56] MED LIST changes: +CARB-88 PO; +LORA1TAB PO; +ONDA8TAB13 PO
[2017-09-04 11:30] VITALS: BP 142/86
[2017-09-04] MEDS ORDERED: NS IV 1000 ML 1,000 ML ONE (12:52)
[2017-09-04] MEDS ORDERED: PROMETHAZINE INJ 25 MG/ML (PHENERGAN) AMP IVP NR (13:00)
[2017-09-04] MEDS: NS IV 1000 ML 1,000 ML IV SCH ×4 (13:12→23:54)
[2017-09-04 13:22] LABS: BASOPHILS # (AUTO) 0.1 10^3/uL (0.0-0.1); BASOPHILS % (AUTO) 1 % (0-10); EOSINOPHILS # (AUTO) 0.4 10^3/uL (0.0-0.3); EOSINOPHILS % (AUTO) 5 % (0-10); LYMPHOCYTES # (AUTO) 2.2 X 10^3 (1.0-4.0); LYMPHOCYTES % (AUTO) 30 % (12-44); MEAN CORPUSCULAR HEMOGLOBIN 26 PG (25-34); MEAN CORPUSCULAR HGB CONC 32 G/DL (32-36); MEAN CORPUSCULAR VOLUME 82 FL (80-99); MEAN PLATELET VOLUME 10.7 FL (7.4-10.4); MONOCYTES # (AUTO) 0.4 X 10^3 (0.0-1.0); MONOCYTES % (AUTO) 5 % (0-12); NEUTROPHILS # (AUTO) 4.3 X 10^3 (1.8-7.8); NEUTROPHILS % (AUTO) 59 % (42-75); PLATELET COUNT 287 10^3/uL (130-400); RED CELL DISTRIBUTION WIDTH 16.7 % (10.0-14.5); WHITE BLOOD COUNT 7.4 10^3/uL (4.3-11.0)
[2017-09-04 13:40] LABS: ALANINE AMINOTRANSFERASE 26 U/L (0-55); ALBUMIN 3.4 GM/DL (3.2-4.5); ANION GAP 11 MMOL/L (5-14); ASPARTATE AMINO TRANSFERASE 37 U/L (5-34); BILIRUBIN,TOTAL 0.3 MG/DL (0.1-1.0); BLOOD UREA NITROGEN 12 MG/DL (7-18); BUN/CREATININE RATIO 14; CALCIUM 8.1 MG/DL (8.5-10.1); CARBON DIOXIDE 22 MMOL/L (21-32); CHLORIDE 106 MMOL/L (98-107); CREATININE SERUM 0.86 MG/DL (0.60-1.30); GFR ESTIMATED > 60; GLUCOSE 126 MG/DL (70-105); POTASSIUM 3.1 MMOL/L (3.6-5.0); SODIUM 139 MMOL/L (135-145); TOTAL PROTEIN 6.1 GM/DL (6.4-8.2)
[2017-09-04 13:46] LABS: CARBAMAZEPINE (TEGRETOL) 3.3 UG/ML (4.0-12.0)
--- NOTE | 2017-09-04 14:11 | History & Physical-Hospitalist ---
HPI History of Present Illness: HPI/Chief Complaint The patient is a 57-year-old white female well-known to me. She was admitted after a phone call to the hospitalist service from her physician Dr. Patton who reported that she had been in the emergency room in the mds rn hours of 1015. Her principal complaint at that time was that of headache which was addressed. She had also stated that she had abdominal pain and some nausea and vomiting. She had Zofran which she took 3 or 4 times at home but it did not quell the nausea and vomiting. She has a past history gastroparesis secondary to diabetes and has had multiple admissions for intractable nausea and vomiting. She states her last bowel movement was yesterday. She has been poorly able to take fluids. She had presented to Dr. Patton's office this morning and was retching and vomiting repeatedly while at his office. Past experience dictated this was unlikely to be managed without admission and IV fluids plus anti-emetics. Source: patient, family Exam Limitations: no limitations Date Seen 09/04/17 Time Seen by Provider: 14:06 Attending Physician Kentrell Lanier MD PCP Migue Patton DO Referring Physician Date of Admission Sep 04, 2017 at 11:30 Home Medications & Allergies Home Medications Reviewed patient Home Medication Reconciliation Form Allergies Allergies Coded Allergies Sulfa (Sulfonamide Antibiotics) (Verified Allergy, Unknown, 11/26/15) Past Qrwqmrz-Rdmsrx-Idzetz Hx Patient Social History Alcohol Use: Denies Use Recreational Drug Use: No Smoking Status: Never a Smoker 2nd Hand Smoke Exposure: No Physical Abuse Screen: No Sexual Abuse: No Recent Foreign Travel: No Contact w/other who traveled: No Recent Hopitalizations: No Recent Infectious Disease Expo: No Immunizations Up To Date Tetanus Booster (TDap): More than 5yrs Date of Pneumonia Vaccine: Aug 19, 2014 Date of Influenza Vaccine: Jul 20, 2016 Seasonal Allergies Seasonal Allergies: No Surgeries Yes (PORT,CARPAL TUNNEL, R.HIP, BILAT SHOULDER SURGERY) Eye Surgery, Gallbladder, Hysterectomy, Orthopedic, Vascular Surgery Respiratory Yes Currently Using CPAP: No Currently Using BIPAP: No Cardiovascular Yes High Cholesterol, Hypertension Neurological Yes Concussion, Headaches /Migraines, Neuropathy, Seizure Disorder, Traumatic Brain Injury Reproductive System Hx Reproductive Disorders: No Sexually Transmitted Disease: No HIV/AIDS: No Female Reproductive Disorders: Denies 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 Gastrointestinal Yes (GASTROPARESIS) Ulcer Musculoskeletal Yes Arthritis Endocrine History of Endocrine Disorders: Yes (ADRENAL DISEASE) Endocrine Disorders: Diabetes, Insulin dep, Hypothyroidsim HEENT HEENT Disorders: Chronic Ear Infection Loss of Vision: Denies Hearing Impairment: Denies Cancer No Psychosocial History of Psychiatric Problem: Yes Behavioral Health Disorders: Anxiety, Depression Integumentary History of Skin or Integumenta: No Blood Transfusions History of Blood Disorders: No Adverse Reaction to a Blood Tr: No Family Medical History Significant Family History: No Pertinent Family Hx, Cancer Family Hx: Alcoholism 09 BROTHER Cancer 03 MOTHER (PANCREATIC CA) Myocardial infarction 03 MOTHER Review of Systems Constitutional: see HPI EENTM: other (headache with history of migraines. She is been placed on Tegretol relatively recently and had seemed to be having a lower frequency of migraines) Respiratory: no symptoms reported Cardiovascular: no symptoms reported Gastrointestinal: abdominal pain (generalized), nausea, vomiting Genitourinary: decreased output Musculoskeletal: other (generalized aching) Skin: no symptoms reported Psychiatric/Neurological: Depressed Physical Exam Physical Exam Vital Signs Capillary Refill : General Appearance: Mild Distress, Moderate Distress Eyes: Bilateral Eye Normal Inspection HEENT: Other (tongue was dry and sticky) Neck: Full Range of Motion Respiratory: Chest Non Tender, Lungs Clear, Normal Breath Sounds, No Accessory Muscle Use, No Respiratory Distress Cardiovascular: Regular Rate, Rhythm, No Edema, No Gallop, No JVD, No Murmur, Normal Peripheral Pulses Gastrointestinal: Other (generalized tenderness to palpation. Hypoactive bowel sounds.) Back: Normal Inspection Extremity: Normal Capillary Refill, Normal Inspection, Normal Range of Motion, Non Tender, No Calf Tenderness, No Pedal Edema Neurologic/Psychiatric: Alert, Oriented x3, No Motor/Sensory Deficits, Normal Mood/Affect Skin: Normal Color, Warm/Dry Lymphatic: No Adenopathy Results Results/Procedures Lab Laboratory Tests 09/04/17 13:15 Assessment/Plan Admission Diagnosis Intractable nausea and vomiting. 2.migraine headache. 3.history of diabetic gastroparesis Assessment and Plan Anti-medics and aggressive replacement. Blood sugars will be managed by virtue of fingersticks Clinical Quality Measures DVT/VTE Risk/Contraindication: RFS Level Per Nursing on Admit: 0=No Risk/No VTE PPX KENTRELL LANIER MD Sep 04, 2017 14:11
[2017-09-04] MEDS ORDERED: INFLUENZA TRIvalent 2017-2018 0.5 ML/45 MCG SYR IM ONE (15:00)
[2017-09-04 16:00] VITALS: BP 158/77
[2017-09-04] MEDS: ONDANSETRON 4 MG/2 ML (SDV) Z0FRAN IVP PRN ×2 (16:05→23:55)
[2017-09-04] MEDS ORDERED: INSU100I32 SQ (16:06)
[2017-09-04] MEDS ORDERED: RIZA10TA37 PO (16:06)
[2017-09-04] MEDS ORDERED: ALBU18HF2 IH (16:06)
[2017-09-04] MEDS ORDERED: MAGN400T6 PO (16:06)
[2017-09-04] MEDS: inSUlin (REGULAR) HUMAN 1 UNIT/0.01 ML (CHARGE PER UNIT) SC SCH ×2 (16:15→22:46)
[2017-09-04] MEDS ORDERED: fentaNYL INJECTION 100 MCG/2 ML AMP IVP NR (16:30)
[2017-09-04] MEDS ORDERED: CATHETER FLUSH 10 ML SYR IV PRN (17:00)
[2017-09-04 20:00] VITALS: BP 135/64
[2017-09-04] MEDS: LORazepam 0.5 MG (ATIVAN) TABLET PO PRN (21:17)
[2017-09-05] MEDS ORDERED: fentaNYL INJECTION 100 MCG/2 ML AMP IVP ONE
[2017-09-05 00:57] VITALS: BP 119/83
[2017-09-05 04:30] VITALS: BP 154/70
[2017-09-05] MEDS: ONDANSETRON 4 MG/2 ML (SDV) Z0FRAN IVP PRN (04:54)
[2017-09-05] MEDS: inSUlin (REGULAR) HUMAN 1 UNIT/0.01 ML (CHARGE PER UNIT) SC SCH ×2 (05:11→11:00)
[2017-09-05] MEDS: LORazepam 0.5 MG (ATIVAN) TABLET PO PRN (05:28)
[2017-09-05] MEDS: NS IV 1000 ML 1,000 ML IV SCH ×2 (07:02→11:06)
[2017-09-05 08:06] VITALS: BP 145/78
[2017-09-05] MEDS ORDERED: ACETAMINOPHEN 325 MG TABLET/CAPLET (TYLENOL) PO ONE (09:00)
[2017-09-05] MEDS ORDERED: RT-ALBUTEROL HFA (VENTOLIN) PER PUFF IH PRN (11:15)
[2017-09-05] MEDS ORDERED: NON-FORMULARY MEDICATION 1 EA EA (Sucralfate (Carafate) 1 GM) PO PRN (11:15)
[2017-09-05] MEDS ORDERED: HYDROcodone/APAP 10 MG/325 MG (LORTAB) TAB PO PRN (11:15)
[2017-09-05] MEDS ORDERED: LORazepam 1 MG (ATIVAN) TAB PO PRN (11:15)
[2017-09-05] MEDS ORDERED: ALPRAZolam 1 MG (XANAX) TAB PO PRN (11:15)
[2017-09-05] MEDS ORDERED: GLUCAGON EMERGENCY 1 MG/KIT SC PRN (11:15)
[2017-09-05] MEDS ORDERED: NON-FORMULARY MEDICATION 1 EA EA (Rizatriptan Benzoate (Rizatriptan) 10 MG) PO PRN (11:15)
[2017-09-05] MEDS ORDERED: FLUTICASONE NASAL SPRAY (FLONASE) 16 GM BTL NS PRN (11:15)
--- NOTE | 2017-09-05 11:26 | Discharge Summary-Hospitalist ---
Diagnosis/Chief Complaint Date of Admission Sep 04, 2017 at 11:30 Date of Discharge Discharge Date: Sep 05, 2017 Admission Diagnosis Intractable nausea and vomiting. 2.migraine headache. 3.history of diabetic gastroparesis Discharge Diagnosis 1. Intractable nausea and vomiting acute on chronic. 2.acute on chronic migraine headache. 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 Pt' s was very concerned at this and he was assured that she was not having a seizure. Pt tolerating clear liquids and wants to advance her diet. Patient Interview: Pt states she sees Dr. Patton every two months for pain meds. Dehydration and fluids were addressed Pain medication was discussed and pt was advised to have Dr. Patton to prescribe these medications Pt confirms living at home with her and denies having been to a rehab facility Physical exam stable. states she had gastroparesis yesterday and states that she gets migraines from this. Pt was informed that she will DC and follow up with Dr. Patton. I informed pt that her that I will not be changing her meds. AFVSS, Pleasant, flat affect, is at bedside, chronically ill, declined since last evaluated RRR, CTAB No edema Assessment: See list Plan: Advance diet Scribed by Maylin Esteban under the direct supervision of Dr. Aldridge. Possible course: Patient has a history of multiple hospitalizations for nausea and vomiting and migraines and its unfortunate that she has recurrences and we have no ability to try to manage that considering we are not a specialty center for gastroparesis. We have provided many of IV fluids to resolve any dehydration and she is able to proceed on with advancement of her diet to regular and although they wish there was a cure for this I can only provide IV fluids and supportive care for the patient. Labs (last 24 hrs) Laboratory Tests 09/04/17 13:15: White Blood Count 7.4, Red Blood Count 4.00L, Hemoglobin 10.5L, Hematocrit 33L, Mean Corpuscular Volume 82, Mean Corpuscular Hemoglobin 26, Mean Corpuscular Hemoglobin Concent 32, Red Cell Distribution Width 16.7H, Platelet Count 287, Mean Platelet Volume 10.7H, Neutrophils (%) (Auto) 59, Lymphocytes (%) (Auto) 30 , Monocytes (%) (Auto) 5, Eosinophils (%) (Auto) 5, Basophils (%) (Auto) 1, Neutrophils # (Auto) 4.3, Lymphocytes # (Auto) 2.2, Monocytes # (Auto) 0.4, Eosinophils # (Auto) 0.4H, Basophils # (Auto) 0.1, Sodium Level 139, Potassium Level 3.1L, Chloride Level 106, Carbon Dioxide Level 22, Anion Gap 11, Blood Urea Nitrogen 12, Creatinine 0.86, Estimat Glomerular Filtration Rate > 60, BUN/ Creatinine Ratio 14, Glucose Level 126H, Calcium Level 8.1L, Total Bilirubin 0.3 , Aspartate Amino Transf (AST/SGOT) 37H, Alanine Aminotransferase (ALT/SGPT) 26 , Alkaline Phosphatase 100, Total Protein 6.1L, Albumin 3.4, Carbamazepine ( Tegretol) Level 3.3L 09/04/17 16:14: Glucometer 78 09/04/17 23:40: Glucometer 166H 09/05/17 01:57: Glucometer 175H 09/05/17 05:00: Glucometer 200H 09/05/17 10:57: Glucometer 174H Pending Labs Laboratory Tests 09/05/17 05:00: Glucometer 200 09/05/17 10:57: Glucometer 174 Discharge Home Medications: Active Scripts Active Reported Ventolin Hfa (Albuterol Sulfate) 18 Gm Hfa.aer.ad 2 Puff IH Q6H PRN Rizatriptan (Rizatriptan Benzoate) 10 Mg Tablet 10 Mg PO DAILY PRN Tresiba Flextouch U-100 (Insulin Degludec) 100 Unit/1 Ml Insuln.pen 17 Units SQ HS Magnesium Oxide 400 Mg Tablet 400 Mg PO HS Carbamazepine ER (Carbamazepine) 200 Mg Tab.er.12h 200 Mg PO DAILY Lyrica (Pregabalin) 150 Mg Capsule 150 Mg PO BID Lorazepam 1 Mg Tablet 1 Mg PO TID PRN Metoclopramide HCl 10 Mg Tablet 10 Mg PO QID Klor-Con Sprinkle (Potassium Chloride) 10 Meq Capsule.er 10 Meq PO DAILY Carafate (Sucralfate) 1 Gm/10 Ml Oral.susp 1 Gm PO QID PRN Humalog Kwikpen (Insulin Lispro) 100 Unit/1 Ml Insuln.pen 4-6 Units SQ AC Glucagon Emergency Kit (Glucagon,Human Recombinant) 1 Mg/Kit Soln UD PRN Levothyroxine Sodium 137 Mcg Tablet 137 Mcg PO DAILY Fludrocortisone Acetate 0.1 Mg Tab 0.1 Mg PO BID Toviaz (Fesoterodine Fumarate) 4 Mg Tab.sr.24h 4 Mg PO DAILY Fluticasone Propionate 16 Gm [place].susp 1 [place] NSEACH BID PRN Montelukast Sodium 10 Mg Tablet 10 Mg PO DAILY Tizanidine HCl 4 Mg Tablet 4 Mg PO TID PRN Atorvastatin Calcium 40 Mg Tablet 40 Mg PO HS Pantoprazole Sodium 40 Mg Tablet.dr 40 Mg PO DAILY Zolpidem Tartrate 10 Mg Tablet 10 Mg PO HS Alprazolam 1 Mg Tablet 1 Mg PO DAILY PRN Premarin (Estrogens, Conjugated) 0.625 Mg Tablet 0.625 Mg PO DAILY Hydroxychloroquine Sulfate 200 Mg Tablet 200 Mg PO DAILY Duloxetine HCl 60 Mg Capsule.dr 60 Mg PO BID Hydrocodon-Acetaminophn 10-325 (Hydrocodone/Acetaminophen) 1 Each Tablet 1 Tab PO QID PRN Amphetamine Salts 20 mg Tablet (Dextroamphetamine/Amphetamine) 20 Mg Tablet 20 Mg PO BID Instructions to patient/family Please see electronic discharge instructions given to patient. Clinical Quality Measures DVT/VTE Risk/Contraindication: RFS Level Per Nursing on Admit: 0=No Risk/No VTE PPX SANDRA ALDRIDGE DO Sep 05, 2017 11:26
[2017-09-05] MEDS ORDERED: METOCLOPRAMIDE 10 MG (REGLAN) TAB PO SCH (13:00)
[2017-09-05] MEDS ORDERED: NON-FORMULARY MEDICATION 1 EA EA (Zolpidem Tartrate 10 MG) PO SCH (21:00)
[2017-09-05] MEDS ORDERED: INSULIN DEGLUDEC SQ SCH (21:00)
[2017-09-05] MEDS ORDERED: NON-FORMULARY MEDICATION 1 EA EA (Duloxetine HCl 60 MG) PO SCH (21:00)
[2017-09-05] MEDS ORDERED: ATORVASTATIN 40 MG (LIPITOR) TABLET PO SCH (21:00)
[2017-09-05] MEDS ORDERED: NON-FORMULARY MEDICATION 1 EA EA (Pregabalin (Lyrica) 150 MG) PO SCH (21:00)
[2017-09-05] MEDS ORDERED: NON-FORMULARY MEDICATION 1 EA EA (Dextroamphetamine/Amphetamine (Amphetamine Salts 20 mg T PO SCH (21:00)
[2017-09-05] MEDS ORDERED: MAGNESIUM OXIDE (MAG-OX)400 MG TAB PO SCH (21:00)
[2017-09-05] MEDS ORDERED: FLUDROCORTISONE 0.1 MG (FLORINEF) TAB PO SCH (21:00)
[2017-09-06] MEDS ORDERED: MONTELUKAST 10 MG (SINGULAIR) TAB PO SCH (09:00)
[2017-09-06] MEDS ORDERED: NON-FORMULARY MEDICATION 1 EA EA (Potassium Chloride (Klor-Con Sprinkle) 10 MEQ) PO SCH (09:00)
[2017-09-06] MEDS ORDERED: HYDROXYCHLOROQUINE 200 MG (PLAQUENIL) TAB PO SCH (09:00)
[2017-09-06] MEDS ORDERED: ESTROGENS CONJ 0.625 MG (PREMARIN) TAB PO SCH (09:00)
[2017-09-06] MEDS ORDERED: NON-FORMULARY MEDICATION 1 EA EA (Levothyroxine Sodium 137 MCG) PO SCH (09:00)
[2017-09-06] MEDS ORDERED: CARBAMAZEPINE 200 MG PO SCH (09:00)
[2017-09-06] MEDS ORDERED: NON-FORMULARY MEDICATION 1 EA EA (Fesoterodine Fumarate (Toviaz) 4 MG) PO SCH (09:00)
[2017-09-06] MEDS ORDERED: PANTOPRAZOLE 40 MG (PROTONIX) TAB PO SCH (09:00)
== END 2017-09-05 11:13 | disposition home or self-care (01) ==
LOC: 4TH 11:25 → UNDOADMOB 11:30 → UNDODISOB 09-05 11:50
PROVIDERS: ADMIT Internal Medicine; ATTEND Internal Medicine
DX: R11.2 Nausea with vomiting, unspecified (principal); E11.43 Type 2 diabetes mellitus with diabetic autonomic (poly)neuropathy; E03.9 Hypothyroidism, unspecified; Z79.4 Long term (current) use of insulin
CPT/HCPCS: 36415; 80053; 80156; 82962; 85025; G0378

== ENCOUNTER 2017-09-22 18:30 | Emergency (ER) | payer BC, MEDICARE, MEDICAID ==
[~2017-09-22] VITALS: Ht 165.1 cm; Wt 76.8 kg
[~2017-09-22 18:30] MED LIST changes: +ALBU18HF2 IH; +INSU100I32 SQ; +MAGN400T6 PO
[2017-09-22] MEDS: KETOROLAC 60 MG/2 ML VIAL IM STA (19:32)
[2017-09-22] MEDS: PROMETHAZINE INJ 25 MG/ML (PHENERGAN) AMP IM STA (19:33)
--- NOTE | 2017-09-22 19:43 | ED GI ---
General Chief Complaint: Abdominal/GI Problems Stated Complaint: N/V Nursing Triage Note: PT C/O N/V SINCE LAST NOC. SHE REPORTS ZOFRAN NOT HELPING. SHE DENIES ABD PAIN OR DIARRHEA. Sepsis Screen: No Definite Risk Source of Information: Patient Exam Limitations: No Limitations History of Present Illness Time Seen By Provider: 19:05 Allergies and Home Medications Allergies Coded Allergies: Sulfa (Sulfonamide Antibiotics) (Verified Allergy, Unknown, 11/26/15) Home Medications Albuterol Sulfate 18 Gm Hfa.aer.ad, 2 PUFF IH Q6H PRN for SHORTNESS OF BREATH, ( Reported) Alprazolam 1 Mg Tablet, 1 MG PO DAILY PRN for ANXIETY, (Reported) Atorvastatin Calcium 40 Mg Tablet, 40 MG PO HS, (Reported) Carbamazepine 200 Mg Tab.er.12h, 200 MG PO DAILY, (Reported) Dextroamphetamine/Amphetamine 20 Mg Tablet, 20 MG PO BID, (Reported) Duloxetine HCl 60 Mg Capsule.dr, 60 MG PO BID, (Reported) Estrogens, Conjugated 0.625 Mg Tablet, 0.625 MG PO DAILY, (Reported) Fesoterodine Fumarate 4 Mg Tab.sr.24h, 4 MG PO DAILY, (Reported) Fludrocortisone Acetate 0.1 Mg Tab, 0.1 MG PO BID, (Reported) Fluticasone Propionate 16 Gm [place].susp, 1 SPRAY NSEACH BID PRN for ALLERGIES, ( Reported) Glucagon,Human Recombinant 1 Mg/Kit Soln, UD PRN for BLOOD SUGAR, (Reported) Hydrocodone/Acetaminophen 1 Each Tablet, 1 TAB PO QID PRN for PAIN, (Reported) Hydroxychloroquine Sulfate 200 Mg Tablet, 200 MG PO DAILY, (Reported) Insulin Degludec 100 Unit/1 Ml Insuln.pen, 17 UNITS SQ HS, (Reported) Insulin Lispro 100 Unit/1 Ml Insuln.pen, 4-6 UNITS SQ AC, (Reported) Levothyroxine Sodium 137 Mcg Tablet, 137 MCG PO DAILY, (Reported) Lorazepam 1 Mg Tablet, 1 MG PO TID PRN for ANXIETY, (Reported) Magnesium Oxide 400 Mg Tablet, 400 MG PO HS, (Reported) Metoclopramide HCl 10 Mg Tablet, 10 MG PO QID, (Reported) Montelukast Sodium 10 Mg Tablet, 10 MG PO DAILY, (Reported) Pantoprazole Sodium 40 Mg Tablet.dr, 40 MG PO DAILY, (Reported) Potassium Chloride 10 Meq Capsule.er, 10 MEQ PO DAILY, (Reported) Pregabalin 150 Mg Capsule, 150 MG PO BID, (Reported) Promethazine HCl 25 Mg Supp.rect, 25 MG RC Q6H PRN for NAUSEA/VOMITING-1ST LINE , #6 Ref 0 Prescribed by: LOUISA MACE on 09/22/172056 Rizatriptan Benzoate 10 Mg Tablet, 10 MG PO DAILY PRN for MIGRAINE, (Reported) Sucralfate 1 Gm/10 Ml Oral.susp, 1 GM PO QID PRN for STOMACH UPSET, (Reported) Tizanidine HCl 4 Mg Tablet, 4 MG PO TID PRN for MUSCLE SPASMS, (Reported) Zolpidem Tartrate 10 Mg Tablet, 10 MG PO HS, (Reported) Past Zzoeepd-Zutssu-Cnwagu Hx Patient Social History Alcohol Use: Denies Use Recreational Drug Use: No Smoking Status: Never a Smoker 2nd Hand Smoke Exposure: No Recent Foreign Travel: No Contact w/Someone Who Travel: No Recent Infectious Disease Expo: No Recent Hopitalizations: No Physical Abuse: No Sexual Abuse: No Immunizations Up To Date Tetanus Booster (TDap): More than 5yrs Date of Pneumonia Vaccine: Aug 19, 2014 Date of Influenza Vaccine: Jul 20, 2016 Seasonal Allergies Seasonal Allergies: No Surgeries History of Surgeries: Yes (PORT,CARPAL TUNNEL, R.HIP, BILAT SHOULDER SURGERY) Surgeries: Eye Surgery, Gallbladder, Hysterectomy, Orthopedic, Vascular Surgery Respiratory History of Respiratory Disorde: Yes Respiratory Disorders: Asthma Currently Using CPAP: No Currently Using BIPAP: No Cardiovascular History of Cardiac Disorders: Yes Cardiac Disorders: High Cholesterol, Hypertension Neurological History of Neurological Disord: Yes Neurological Disorders: Concussion, Headaches /Migraines, Neuropathy, Seizure Disorder, Traumatic Brain Injury Reproductive System Hx Reproductive Disorders: No Sexually Transmitted Disease: No HIV/AIDS: No Female Reproductive Disorders: Denies 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 Gastrointestinal History of Gastrointestinal Di: Yes (GASTROPARESIS) Gastrointestinal Disorders: Ulcer Musculoskeletal History of Musculoskeletal Dis: Yes Musculoskeletal Disorders: Arthritis Endocrine History of Endocrine Disorders: Yes (ADRENAL DISEASE) Endocrine Disorders: Diabetes, Insulin dep, Hypothyroidsim HEENT HEENT Disorders: Chronic Ear Infection Loss of Vision: Denies Hearing Impairment: Denies Cancer History of Cancer: No Psychosocial History of Psychiatric Problem: Yes Behavioral Health Disorders: Anxiety, Depression Suicide Risk Score: 0 Integumentary History of Skin or Integumenta: No Blood Transfusions History of Blood Disorders: No Adverse Reaction to a Blood Tr: No Family Medical History Significant Family History: No Pertinent Family Hx, Cancer Family Medial History: Alcoholism 09 BROTHER Cancer 03 MOTHER (PANCREATIC CA) Myocardial infarction 03 MOTHER Physical Exam Vital Signs VS - Last 72 Hours, by Label 09/22/17 19:00 Temp 98.1 Pulse 96 Resp 16 B/P (MAP) 140/81 Pulse Ox 98 O2 Delivery Room Air Capillary Refill : Less Than 3 Seconds Progress/Results/Core Measures Results/Orders Lab Results Laboratory Tests Test 09/22/17 21:08 09/22/17 21:46 Range/Units Glucometer 234 H 70-110 MG/DL My Orders Orders - LOUISA MACE Promethazine Injection (Phenergan Injec (09/22/17 19:21) Ketorolac Injection (Toradol Injection) (09/22/17 19:21) Accucheck Stat ONCE (09/22/17 19:51) Ondansetron Oral Dissolve Tab (Zofran (09/22/17 20:58) Hyoscyamine Sl Tablet (Levsin Sl Tablet) (09/22/17 21:00) Ua Culture If Indicated (09/22/17 21:50) Medications Given in ED Current Medications Medications Dose Ordered Sig/Reva Route Start Time Stop Time Status Last Admin Dose Admin Hyoscyamine Sulfate 0.125 mg ONCE ONCE SL 09/22/17 21:00 09/22/17 21:01 DC 09/22/17 21:05 0.125 MG Vital Signs/I&O Vital Sign - Last 12Hours 09/22/17 19:00 Temp 98.1 Pulse 96 Resp 16 B/P (MAP) 140/81 Pulse Ox 98 O2 Delivery Room Air Blood Pressure Mean: 100 Departure Impression Impression: Primary Impression: Nausea and vomiting Additional Impression: Chronic headache Disposition: HOME, SELF-CARE Condition: Improved Departure-Patient Inst. Decision time for Depature: 19:41 Referrals: RUBIO MEZA DO (PCP/Family) Primary Care Physician Patient Instructions: Nausea and Vomiting, Adult Add. Discharge Instructions: All discharge instructions reviewed with patient and/or family. Voiced understanding. Medications as instructed. Continue usual home medications. Drink plenty of fluids. Clear liquid diet until symptoms improve, then increase diet slowly to a low-fat, bland diet. Monitor blood sugars closely. Follow-up with your family practitioner this week for recheck, call for appointment time. Return to the emergency department for worsened vomiting, fever, vomiting blood, rectal bleeding, or any other concerns. Scripts Hyoscyamine Sulfate (Levsin-Sl) 0.125 Mg Tab.subl 0.125 MG SL Q6H Y for SPASMS, #10 TAB 0 Refills Prov: LOUISA MACE 09/22/17 Promethazine HCl (Promethazine Suppository) 25 Mg Supp.rect 25 MG RC Q6H Y for NAUSEA/VOMITING-1ST LINE, #6 SUPP.RECT 0 Refills Prov: LOUISA MACE 09/22/17 LOUISA MACE Sep 22, 2017 19:43
[2017-09-22] MEDS ORDERED: PROM25SU44 RC (20:57)
[2017-09-22] MEDS: HYOSCYAMINE 0.125 MG (LEVSIN) TAB SL ONE (21:05)
[2017-09-22] MEDS: ONDANSETRON 4 MG (ZOFRAN) ORAL DISSOLVE TAB SL STA (21:05)
[2017-09-22 21:55] LABS: BILIRUBIN,URINE NEGATIVE (NEGATIVE); KETONES,URINE 3+ (NEGATIVE); LEUKOCYTE ESTERASE ,URINE 1+ (NEGATIVE); NITRITE,URINE NEGATIVE (NEGATIVE); PH,URINE 7 (5-9); PROTEIN,URINE 1+ (NEGATIVE); UROBILINOGEN,URINE NORMAL (NORMAL)
[2017-09-22] MEDS ORDERED: HYOS0.1283 SL (21:57)
[2017-09-22 22:02] LABS: SQUAMOUS EPITHELIAL CELL,UR >50 /HPF
[2017-09-22 22:13] VITALS: BP 140/81
== END 2017-09-22 22:13 | disposition home or self-care (01) ==
LOC: EDUNIT# 18:30 → ER 18:32
DX: R11.2 Nausea with vomiting, unspecified (principal); R51 Headache; G89.29 Other chronic pain; J45.909 Unspecified asthma, uncomplicated; E78.00 Pure hypercholesterolemia, unspecified; I10 Essential (primary) hypertension; G43.909 Migraine, unspecified, not intractable, without status migrainosus; G40.909 Epilepsy, unspecified, not intractable, without status epilepticus; E11.9 Type 2 diabetes mellitus without complications; E03.9 Hypothyroidism, unspecified; F41.9 Anxiety disorder, unspecified; F32.9 Major depressive disorder, single episode, unspecified; Z87.19 Personal history of other diseases of the digestive system; Z87.820 Personal history of traumatic brain injury; Z80.0 Family history of malignant neoplasm of digestive organs; Z82.49 Family history of ischemic heart disease and other diseases of the circulatory system; Z79.4 Long term (current) use of insulin; Z90.710 Acquired absence of both cervix and uterus
CPT/HCPCS: 81000; 82962; 99284

== ENCOUNTER 2017-10-08 12:13 | Emergency (ER) | payer BC, MEDICARE, MEDICAID ==
[~2017-10-08] VITALS: Ht 167.6 cm; Wt 68.0 kg
[~2017-10-08 12:13] MED LIST changes: +PROM25SU44 RC
[2017-10-08] MEDS ORDERED: diphenhydrAMINE 50 MG/ML INJ (BENADRYL) IV STA (12:57)
[2017-10-08] MEDS ORDERED: NS IV 1000 ML 1,000 ML IV ONE (12:57)
[2017-10-08] MEDS ORDERED: KETOROLAC 30 MG/ML VIAL IVP STA (12:57)
[2017-10-08] MEDS ORDERED: ONDANSETRON 4 MG/2 ML (SDV) Z0FRAN IVP ONE (13:00)
[2017-10-08] MEDS ORDERED: DEXAMETHASONE 10 MG/ML (DECADRON) 1 ML VIAL IV ONE (13:00)
--- NOTE | 2017-10-08 13:13 | ED General ---
General Chief Complaint: Head/Cervical Problems Stated Complaint: headache,vomiting,ear piercing infections Nursing Triage Note: c/o bilateral ear pain/swelling. Pt had ears pierced on . Requesting piercings be removed. Source of Information: Patient, Spouse History of Present Illness Time Seen by Provider: 12:40 Initial Comments 57-year-old female patient presents to the emergency department with complaints of bilateral ear pain/swelling after having the ears pierced on . Patient at the piercings to help with her chronic migraines. Now is concerned they are infected. Also exacerbating her chronic migraine headache. Headache feels similar to usual chronic migraines. Timing/Duration: 3-4 Days, Constant Modifying Factors: worse with Other (worse with palpation) Allergies and Home Medications Allergies Coded Allergies: Sulfa (Sulfonamide Antibiotics) (Verified Allergy, Unknown, 11/26/15) Home Medications Albuterol Sulfate 18 Gm Hfa.aer.ad, 2 PUFF IH Q6H PRN for SHORTNESS OF BREATH, ( Reported) Alprazolam 1 Mg Tablet, 1 MG PO DAILY PRN for ANXIETY, (Reported) Atorvastatin Calcium 40 Mg Tablet, 40 MG PO HS, (Reported) Carbamazepine 200 Mg Tab.er.12h, 200 MG PO DAILY, (Reported) Clindamycin HCl 300 Mg Capsule, 300 MG PO QID, #28 Ref 0 Prescribed by: LOUISA MACE on 10/08/17 1521 Dextroamphetamine/Amphetamine 20 Mg Tablet, 20 MG PO BID, (Reported) Duloxetine HCl 60 Mg Capsule.dr, 60 MG PO BID, (Reported) Estrogens, Conjugated 0.625 Mg Tablet, 0.625 MG PO DAILY, (Reported) Fesoterodine Fumarate 4 Mg Tab.sr.24h, 4 MG PO DAILY, (Reported) Fludrocortisone Acetate 0.1 Mg Tab, 0.1 MG PO BID, (Reported) Fluticasone Propionate 16 Gm [place].susp, 1 SPRAY NSEACH BID PRN for ALLERGIES, ( Reported) Glucagon,Human Recombinant 1 Mg/Kit Soln, UD PRN for BLOOD SUGAR, (Reported) Hydrocodone/Acetaminophen 1 Each Tablet, 1 TAB PO QID PRN for PAIN, (Reported) Hydroxychloroquine Sulfate 200 Mg Tablet, 200 MG PO DAILY, (Reported) Hyoscyamine Sulfate 0.125 Mg Tab.subl, 0.125 MG SL Q6H PRN for SPASMS, #10 Ref 0 Prescribed by: LOUISA MACE on 09/22/172156 Insulin Degludec 100 Unit/1 Ml Insuln.pen, 17 UNITS SQ HS, (Reported) Insulin Lispro 100 Unit/1 Ml Insuln.pen, 4-6 UNITS SQ AC, (Reported) Levothyroxine Sodium 137 Mcg Tablet, 137 MCG PO DAILY, (Reported) Lorazepam 1 Mg Tablet, 1 MG PO TID PRN for ANXIETY, (Reported) Magnesium Oxide 400 Mg Tablet, 400 MG PO HS, (Reported) Metoclopramide HCl 10 Mg Tablet, 10 MG PO QID, (Reported) Montelukast Sodium 10 Mg Tablet, 10 MG PO DAILY, (Reported) Pantoprazole Sodium 40 Mg Tablet.dr, 40 MG PO DAILY, (Reported) Potassium Chloride 10 Meq Capsule.er, 10 MEQ PO DAILY, (Reported) Pregabalin 150 Mg Capsule, 150 MG PO BID, (Reported) Promethazine HCl 25 Mg Supp.rect, 25 MG RC Q6H PRN for NAUSEA/VOMITING-1ST LINE , #6 Ref 0 Prescribed by: LOUISA MACE on 09/22/172056 Rizatriptan Benzoate 10 Mg Tablet, 10 MG PO DAILY PRN for MIGRAINE, (Reported) Sucralfate 1 Gm/10 Ml Oral.susp, 1 GM PO QID PRN for STOMACH UPSET, (Reported) Tizanidine HCl 4 Mg Tablet, 4 MG PO TID PRN for MUSCLE SPASMS, (Reported) Zolpidem Tartrate 10 Mg Tablet, 10 MG PO HS, (Reported) Constitutional: No chills, No dizziness, No fever, No malaise EENTM: see HPI, ear pain, other (chronic photophobia with migraine's), No ear discharge Respiratory: no symptoms reported Cardiovascular: no symptoms reported Gastrointestinal: nausea (chronic nausea with migraines), vomiting (chronic vomiting due to migraine headaches) Genitourinary: no symptoms reported Musculoskeletal: no symptoms reported Skin: see HPI Psychiatric/Neurological: See HPI, Headache (chronic migraine), Denies Numbness , Denies Paresthesia, Denies Seizure, Denies Tingling, Denies Weakness All Other Systems Reviewed Negative Unless Noted: Yes (Negative excepted noted.) Past Cmiztmj-Ownzcb-Gkazpa Hx Patient Social History Alcohol Use: Denies Use Recreational Drug Use: No Smoking Status: Never a Smoker 2nd Hand Smoke Exposure: No Recent Foreign Travel: No Contact w/Someone Who Travel: No Recent Hopitalizations: No Immunizations Up To Date Tetanus Booster (TDap): More than 5yrs Date of Pneumonia Vaccine: Aug 19, 2014 Date of Influenza Vaccine: Jul 20, 2016 Seasonal Allergies Seasonal Allergies: No Surgeries History of Surgeries: Yes (PORT,CARPAL TUNNEL, R.HIP, BILAT SHOULDER SURGERY) Surgeries: Eye Surgery, Gallbladder, Hysterectomy, Orthopedic, Vascular Surgery Respiratory History of Respiratory Disorde: Yes Respiratory Disorders: Asthma Currently Using CPAP: No Currently Using BIPAP: No Cardiovascular History of Cardiac Disorders: Yes Cardiac Disorders: High Cholesterol, Hypertension Neurological History of Neurological Disord: Yes Neurological Disorders: Concussion, Headaches /Migraines, Neuropathy, Seizure Disorder, Traumatic Brain Injury Reproductive System Hx Reproductive Disorders: No Sexually Transmitted Disease: No HIV/AIDS: No Female Reproductive Disorders: Denies 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 Gastrointestinal History of Gastrointestinal Di: Yes (GASTROPARESIS) Gastrointestinal Disorders: Ulcer Musculoskeletal History of Musculoskeletal Dis: Yes Musculoskeletal Disorders: Arthritis Endocrine History of Endocrine Disorders: Yes (ADRENAL DISEASE) Endocrine Disorders: Diabetes, Insulin dep, Hypothyroidsim HEENT HEENT Disorders: Chronic Ear Infection Loss of Vision: Denies Hearing Impairment: Denies Cancer History of Cancer: No Psychosocial History of Psychiatric Problem: Yes Behavioral Health Disorders: Anxiety, Depression Integumentary History of Skin or Integumenta: No Blood Transfusions History of Blood Disorders: No Adverse Reaction to a Blood Tr: No Reviewed Nursing Assessment Reviewed/Agree w Nursing PMH: Yes Family Medical History Significant Family History: No Pertinent Family Hx, Cancer Family Medial History: Alcoholism 09 BROTHER Cancer 03 MOTHER (PANCREATIC CA) Myocardial infarction 03 MOTHER Physical Exam Vital Signs Vital Sign - Last 12Hours 10/08/17 10/08/17 10/08/17 12:29 13:41 16:30 Temp 99.0 Pulse 100 Resp 20 B/P (MAP) 119/103 Pulse Ox 98 Capillary Refill : General Appearance: No Apparent Distress, Chronically ill Eyes: Bilateral Eye Normal Inspection, Bilateral Eye PERRL, Bilateral Eye EOMI HEENT: PERRL/EOMI, TMs Normal, Normal ENT Inspection, Pharynx Normal, Other ( oral mucosa dry. bilatateral external ears swollen, tender. faint pink blush noted to the bilateral external ears. piercing noted in the tragus bilaterally. 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 faint pink blush noted to the bilateral external ears. piercing noted in the tragus bilaterally.) Progress/Results/Core Measures Suspected Sepsis SIRS Temperature:99.0 Pulse: Respiratory Rate: Blood Pressure / Mean: Results/Orders My Orders Orders - LOUISA MACE Saline Lock/Iv-Start (10/08/17 12:57) Ondansetron Injection (Zofran Injectio (10/08/17 13:00) Ketorolac Injection (Toradol Injection) (10/08/17 12:57) Ns Iv 1000 Ml (Sodium Chloride 0.9%) (10/08/17 12:57) Diphenhydramine Injection (Benadryl Inje (10/08/17 12:57) Dexamethasone Injection (Decadron Inject (10/08/17 13:00) Fentanyl Injection (Sublimaze Injection (10/08/17 14:52) Oxycodone/Apap 5/325mg Tablet (Percocet (10/08/17 15:55) Medications Given in ED Current Medications Medications Dose Ordered Sig/Reva Route Start Time Stop Time Status Last Admin Dose Admin Dexamethasone Sodium Phosphate 10 mg ONCE ONCE IV 10/08/17 13:00 10/08/17 13:01 DC 10/08/17 13:41 10 MG Ondansetron HCl 4 mg ONCE ONCE IVP 10/08/17 13:00 10/08/17 13:01 DC 10/08/17 13:41 4 MG Sodium Chloride 1,000 ml @ 0 mls/hr Q0M ONCE IV 10/08/17 12:57 10/08/17 12:59 DC 10/08/17 13:42 1,000 MLS/HR Vital Signs/I&O Vital Sign - Last 12Hours 10/08/17 10/08/17 10/08/17 10/08/17 12:29 13:41 15:38 16:20 Temp 99.0 99.0 99.0 Pulse 100 Resp 20 B/P (MAP) 119/103 10/08/17 16:30 Temp 98.5 Pulse 82 Resp 16 Pulse Ox 98 Capillary Refill : Departure Communication (Admissions) Progress Notes Patient seen and evaluated. Patient was given 1 L normal saline, Benadryl, Toradol, and Decadron with improvement in symptoms initially. Patient did report pain was returning towards the end of the visit and was therefore given fentanyl 75 g and 1 dose of Percocet prior to discharge. No vomiting noted in the emergency department. Plan for discharge to home with follow-up as an outpatient with her PCP. Patient was noted during the exam to have a light pink blush symptoms ears externally and was given a prescription for clindamycin. Impression Impression: Primary Impression: Complication of ear piercing Qualified Codes: S01.339A - Puncture wound without foreign body of unspecified ear, initial encounter Additional Impression: Chronic migraine Disposition: HOME, SELF-CARE Condition: Improved Departure-Patient Inst. Decision time for Depature: 15:20 Referrals: RUBIO PATTON DO (PCP/Family) Primary Care Physician Patient Instructions: Migraine Headache (DC), Tatoos and Body Piercings Add. Discharge Instructions: All discharge instructions reviewed with patient and/or family. Voiced understanding. Medications as directed. Continue usual home medications. Ice pack for 20 minute intervals as needed for pain and swelling. Shower with antibacterial soap. Continue to clean the piercings as instructed your body engineer. Follow-up with Dr. Patton as an outpatient for recheck, call for appointment time. Return to the emergency department for worsened symptoms or any other concerns. Scripts Clindamycin HCl (Cleocin HCl) 300 Mg Capsule 300 MG PO QID, #28 CAP 0 Refills Prov: LOUISA MACE 10/08/17 LOUISA MACE Oct 08, 2017 13:13
[2017-10-08] MEDS ORDERED: fentaNYL INJECTION 100 MCG/2 ML AMP IVP STA (14:52)
[2017-10-08] MEDS ORDERED: CLIN300C3 PO (15:21)
[2017-10-08] MEDS ORDERED: oxyCODONE/APAP 5/325MG (PERCOCET 5) TABLET PO STA (15:55)
[2017-10-08 16:30] VITALS: BP 108/82
== END 2017-10-08 16:30 | disposition home or self-care (01) ==
LOC: EDUNIT# 12:13 → ER 12:15
DX: S01.331A Puncture wound without foreign body of right ear, initial encounter (principal); S01.332A Puncture wound without foreign body of left ear, initial encounter; G43.709 Chronic migraine without aura, not intractable, without status migrainosus; J45.909 Unspecified asthma, uncomplicated; E78.00 Pure hypercholesterolemia, unspecified; I10 Essential (primary) hypertension; E11.40 Type 2 diabetes mellitus with diabetic neuropathy, unspecified; E03.9 Hypothyroidism, unspecified; F41.9 Anxiety disorder, unspecified; F32.9 Major depressive disorder, single episode, unspecified; G40.909 Epilepsy, unspecified, not intractable, without status epilepticus; Z87.820 Personal history of traumatic brain injury; Z79.4 Long term (current) use of insulin; Z90.710 Acquired absence of both cervix and uterus; Z80.0 Family history of malignant neoplasm of digestive organs; Z82.49 Family history of ischemic heart disease and other diseases of the circulatory system; Z87.19 Personal history of other diseases of the digestive system
CPT/HCPCS: 96361; 96374; 96375

== ENCOUNTER 2017-10-11 18:30 | Emergency (ER) | payer BC, MEDICARE, MEDICAID ==
[~2017-10-11] VITALS: Ht 167.6 cm; Wt 68.2 kg
[~2017-10-11 18:30] MED LIST changes: +CLIN300C3 PO
[2017-10-11] MEDS ORDERED: KETOROLAC 30 MG/ML VIAL IVP STA (19:21)
[2017-10-11] MEDS ORDERED: NS IV 1000 ML 1,000 ML IV ONE ×2 (19:21→20:37)
[2017-10-11] MEDS ORDERED: morphine INJ 10 MG/ML 1ML (SYR OR VIAL) IVP STA ×2 (19:21→20:37)
--- NOTE | 2017-10-11 19:24 | ED General ---
General Chief Complaint: Head/Cervical Problems Stated Complaint: MIGRAINE,EAR PAIN Nursing Triage Note: PT CRYING, STATES MIGRAINE FOR 3 DAYS. HX OF. Nursing Sepsis Screen: No Definite Risk Source of Information: Patient Exam Limitations: No Limitations History of Present Illness Time Seen by Provider: 19:10 Initial Comments Here with report of typical migraine and persistence of her ear pain for the last 3 days. Seen here on the for the same and was doing a little better. Has started on clindamycin for concerns of ear infection where she had bilateral piercings done for her migraines. These apparently became infected. She is complaining of significant pain. Her last dose of her regular pain medicine she reports was this morning. No vomiting today although has some nausea. Blood sugars are been running and reasonable ranges and have not been high for the last 24 hours. Patient is just complaining of her migraine mostly and just feeling sick. Timing/Duration: 3-4 Days Severity: Moderate Associated Systoms: No Chest Pain, No Cough, No Fever/Chills, Headaches ( typical frontal global), No Loss of Appetite, Nausea/Vomiting, No Shortness of Air, Weakness, Other (bilateral ear pain) Allergies and Home Medications Allergies Coded Allergies: Sulfa (Sulfonamide Antibiotics) (Verified Allergy, Unknown, 11/26/15) Home Medications Albuterol Sulfate 18 Gm Hfa.aer.ad, 2 PUFF IH Q6H PRN for SHORTNESS OF BREATH, ( Reported) Alprazolam 1 Mg Tablet, 1 MG PO DAILY PRN for ANXIETY, (Reported) Atorvastatin Calcium 40 Mg Tablet, 40 MG PO HS, (Reported) Carbamazepine 200 Mg Tab.er.12h, 200 MG PO DAILY, (Reported) Clindamycin HCl 300 Mg Capsule, 300 MG PO QID, #28 Ref 0 Prescribed by: LOUISA MACE on 10/08/17 1521 Dextroamphetamine/Amphetamine 20 Mg Tablet, 20 MG PO BID, (Reported) Duloxetine HCl 60 Mg Capsule.dr, 60 MG PO BID, (Reported) Estrogens, Conjugated 0.625 Mg Tablet, 0.625 MG PO DAILY, (Reported) Fesoterodine Fumarate 4 Mg Tab.sr.24h, 4 MG PO DAILY, (Reported) Fludrocortisone Acetate 0.1 Mg Tab, 0.1 MG PO BID, (Reported) Fluticasone Propionate 16 Gm [place].susp, 1 SPRAY NSEACH BID PRN for ALLERGIES, ( Reported) Glucagon,Human Recombinant 1 Mg/Kit Soln, UD PRN for BLOOD SUGAR, (Reported) Hydrocodone/Acetaminophen 1 Each Tablet, 1 TAB PO QID PRN for PAIN, (Reported) Hydroxychloroquine Sulfate 200 Mg Tablet, 200 MG PO DAILY, (Reported) Hyoscyamine Sulfate 0.125 Mg Tab.subl, 0.125 MG SL Q6H PRN for SPASMS, #10 Ref 0 Prescribed by: LOUISA MACE on 09/22/172156 Insulin Degludec 100 Unit/1 Ml Insuln.pen, 17 UNITS SQ HS, (Reported) Insulin Lispro 100 Unit/1 Ml Insuln.pen, 4-6 UNITS SQ AC, (Reported) Levothyroxine Sodium 137 Mcg Tablet, 137 MCG PO DAILY, (Reported) Lorazepam 1 Mg Tablet, 1 MG PO TID PRN for ANXIETY, (Reported) Magnesium Oxide 400 Mg Tablet, 400 MG PO HS, (Reported) Metoclopramide HCl 10 Mg Tablet, 10 MG PO QID, (Reported) Montelukast Sodium 10 Mg Tablet, 10 MG PO DAILY, (Reported) Pantoprazole Sodium 40 Mg Tablet.dr, 40 MG PO DAILY, (Reported) Potassium Chloride 10 Meq Capsule.er, 10 MEQ PO DAILY, (Reported) Pregabalin 150 Mg Capsule, 150 MG PO BID, (Reported) Promethazine HCl 25 Mg Supp.rect, 25 MG RC Q6H PRN for NAUSEA/VOMITING-1ST LINE , #6 Ref 0 Prescribed by: LOUISA MACE on 09/22/172056 Rizatriptan Benzoate 10 Mg Tablet, 10 MG PO DAILY PRN for MIGRAINE, (Reported) Sucralfate 1 Gm/10 Ml Oral.susp, 1 GM PO QID PRN for STOMACH UPSET, (Reported) Tizanidine HCl 4 Mg Tablet, 4 MG PO TID PRN for MUSCLE SPASMS, (Reported) Zolpidem Tartrate 10 Mg Tablet, 10 MG PO HS, (Reported) Constitutional: see HPI, No chills, No fever EENTM: ear pain, eye pain, No mouth pain Respiratory: No cough, No short of breath Cardiovascular: No chest pain, No edema Gastrointestinal: No abdominal pain, nausea, No vomiting Genitourinary: no symptoms reported Musculoskeletal: no symptoms reported Skin: see HPI, change in color, lesions (erythema around both ear piercings) Psychiatric/Neurological: Anxiety, Headache All Other Systems Reviewed Negative Unless Noted: Yes Past Pynzelb-Ecrpom-Hqfrrb Hx Patient Social History Alcohol Use: Denies Use Recreational Drug Use: No Smoking Status: Never a Smoker 2nd Hand Smoke Exposure: No Recent Foreign Travel: No Contact w/Someone Who Travel: No Recent Infectious Disease Expo: No Recent Hopitalizations: No Immunizations Up To Date Tetanus Booster (TDap): More than 5yrs Date of Pneumonia Vaccine: Aug 19, 2014 Date of Influenza Vaccine: Aug 22, 2017 Seasonal Allergies Seasonal Allergies: No Surgeries History of Surgeries: Yes (PORT,CARPAL TUNNEL, R.HIP, BILAT SHOULDER SURGERY) Surgeries: Eye Surgery, Gallbladder, Hysterectomy, Orthopedic, Vascular Surgery Respiratory History of Respiratory Disorde: Yes Respiratory Disorders: Asthma Currently Using CPAP: No Currently Using BIPAP: No Cardiovascular History of Cardiac Disorders: Yes Cardiac Disorders: High Cholesterol, Hypertension Neurological History of Neurological Disord: Yes Neurological Disorders: Concussion, Headaches /Migraines, Neuropathy, Seizure Disorder, Traumatic Brain Injury Reproductive System Hx Reproductive Disorders: No Sexually Transmitted Disease: No HIV/AIDS: No Female Reproductive Disorders: Denies 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 Genitourinary History of Genitourinary Disor: Yes (UTI) Gastrointestinal History of Gastrointestinal Di: Yes (GASTROPARESIS) Gastrointestinal Disorders: Ulcer Musculoskeletal History of Musculoskeletal Dis: Yes Musculoskeletal Disorders: Arthritis Endocrine History of Endocrine Disorders: Yes (ADRENAL DISEASE) Endocrine Disorders: Diabetes, Insulin dep, Hypothyroidsim HEENT History of HEENT Disorders: Yes HEENT Disorders: Chronic Ear Infection Loss of Vision: Denies Hearing Impairment: Denies Cancer History of Cancer: No Psychosocial History of Psychiatric Problem: Yes Behavioral Health Disorders: Anxiety, Depression Integumentary History of Skin or Integumenta: No Blood Transfusions History of Blood Disorders: No Adverse Reaction to a Blood Tr: No Reviewed Nursing Assessment Reviewed/Agree w Nursing PMH: Yes Family Medical History Significant Family History: No Pertinent Family Hx, Cancer Family Medial History: Alcoholism 09 BROTHER Cancer 03 MOTHER (PANCREATIC CA) Myocardial infarction 03 MOTHER Physical Exam Vital Signs Vital Sign - Last 12Hours 10/11/17 19:02 Temp 96.0 Pulse 91 B/P (MAP) 142/100 Pulse Ox 97 O2 Delivery Room Air Capillary Refill : Less Than 3 Seconds General Appearance: WD/WN, Mild Distress (headache) HEENT: PERRL/EOMI, Other (bilateral ear with redness in the upper ear around the piercings that have been removed.) Neck: Normal Inspection, Non Tender Respiratory: Lungs Clear, Normal Breath Sounds Cardiovascular: Regular Rate, Rhythm, No Murmur Gastrointestinal: Non Tender, Soft Extremity: Normal Range of Motion, Non Tender, No Calf Tenderness Neurologic/Psychiatric: Alert, Oriented x3 Skin: Warm/Dry, Erythema (bilateral upper ears) Progress/Results/Core Measures Suspected Sepsis Recent Fever Within 48 Hours: No Infection Criteria Present: None New/Unexplained Altered Menta: No Sepsis Screen: No Definite Risk Sepsis Diagnosis: SIRS Temperature:96.0 Pulse: 91 Respiratory Rate: Laboratory Tests 10/11/17 19:15: White Blood Count 8.8 Blood Pressure 142 /100 Mean: 114 Laboratory Tests 10/11/17 19:15: Creatinine 0.86, Platelet Count 280, Total Bilirubin 0.2 Results/Orders Lab Results Laboratory Tests Test 10/11/17 19:15 10/11/17 19:35 Range/Units White Blood Count 8.8 4.3-11.0 10^3/uL Red Blood Count 3.87 L 4.35-5.85 10^6/uL Hemoglobin 10.5 L 11.5-16.0 G/DL Hematocrit 32 L 35-52 % Mean Corpuscular Volume 82 80-99 FL Mean Corpuscular Hemoglobin 27 25-34 PG Mean Corpuscular Hemoglobin Concent 33 32-36 G/DL Red Cell Distribution Width 16.3 H 10.0-14.5 % Platelet Count 280 130-400 10^3/uL Mean Platelet Volume 10.7 H 7.4-10.4 FL Neutrophils (%) (Auto) 40 L 42-75 % Lymphocytes (%) (Auto) 49 H 12-44 % Monocytes (%) (Auto) 7 0-12 % Eosinophils (%) (Auto) 4 0-10 % Basophils (%) (Auto) 1 0-10 % Neutrophils # (Auto) 3.5 1.8-7.8 X 10^3 Lymphocytes # (Auto) 4.3 H 1.0-4.0 X 10^3 Monocytes # (Auto) 0.6 0.0-1.0 X 10^3 Eosinophils # (Auto) 0.4 H 0.0-0.3 10^3/uL Basophils # (Auto) 0.1 0.0-0.1 10^3/uL Sodium Level 139 135-145 MMOL/L Potassium Level 3.3 L 3.6-5.0 MMOL/L Chloride Level 104 98-107 MMOL/L Carbon Dioxide Level 22 21-32 MMOL/L Anion Gap 13 5-14 MMOL/L Blood Urea Nitrogen 8 7-18 MG/DL Creatinine 0.86 0.60-1.30 MG/DL Estimat Glomerular Filtration Rate > 60 BUN/Creatinine Ratio 9 Glucose Level 106 H 70-105 MG/DL Calcium Level 8.8 8.5-10.1 MG/DL Total Bilirubin 0.2 0.1-1.0 MG/DL Aspartate Amino Transf (AST/SGOT) 12 5-34 U/L Alanine Aminotransferase (ALT/SGPT) 11 0-55 U/L Alkaline Phosphatase 89 40-136 U/L C-Reactive Protein High Sensitivity 1.71 H 0.00-0.50 MG/DL Total Protein 6.4 6.4-8.2 GM/DL Albumin 3.5 3.2-4.5 GM/DL Urine Color YELLOW Urine Clarity VERY CLOUDY H Urine pH 6 5-9 Urine Specific [place] 1.020 1.016-1.022 Urine Protein 2+ H NEGATIVE Urine Glucose (UA) NEGATIVE NEGATIVE Urine Ketones 4+ H NEGATIVE Urine Nitrite NEGATIVE NEGATIVE Urine Bilirubin NEGATIVE NEGATIVE Urine Urobilinogen NORMAL NORMAL MG/DL Urine Leukocyte Esterase 3+ H NEGATIVE Urine RBC (Auto) NEGATIVE NEGATIVE Urine RBC 0-2 /HPF Urine WBC 10-25 H /HPF Urine Squamous Epithelial Cells >50 H /HPF Urine Crystals NONE /LPF Urine Bacteria FEW H /HPF Urine Casts NONE /LPF Urine Mucus LARGE H /LPF Urine Culture Indicated NO My Orders Orders - THOMAS HERNANDEZ MD Cbc With Automated Diff (10/11/17 19:21) Comprehensive Metabolic Panel (10/11/17 19:21) Hs C Reactive Protein (10/11/17 19:21) Ua Culture If Indicated (10/11/17 19:21) Saline Lock/Iv-Start (10/11/17 19:21) Ns Iv 1000 Ml (Sodium Chloride 0.9%) (10/11/17 19:21) Ketorolac Injection (Toradol Injection) (10/11/17 19:21) Morphine Injection (Morphine Injection (10/11/17 19:21) Ondansetron Injection (Zofran Injectio (10/11/17 19:30) Morphine Injection (Morphine Injection (10/11/17 20:37) Ns Iv 1000 Ml (Sodium Chloride 0.9%) (10/11/17 20:37) Diphenhydramine Injection (Benadryl Inje (10/11/17 21:45) Medications Given in ED Current Medications Medications Dose Ordered Sig/Reva Route Start Time Stop Time Status Last Admin Dose Admin Ondansetron HCl 4 mg ONCE ONCE IVP 10/11/17 19:30 10/11/17 19:31 DC 10/11/17 19:41 4 MG Sodium Chloride 1,000 ml @ 0 mls/hr Q0M ONCE IV 10/11/17 19:21 10/11/17 19:23 DC 10/11/17 19:41 1,000 MLS/HR Sodium Chloride 1,000 ml @ 0 mls/hr Q0M ONCE IV 10/11/17 20:37 10/11/17 20:38 DC 10/11/17 20:47 1,000 MLS/HR Vital Signs/I&O Vital Sign - Last 12Hours 10/11/17 10/11/17 10/11/17 10/11/17 19:02 19:41 19:41 20:48 Temp 96.0 96.0 96.0 96.0 Pulse 91 B/P (MAP) 142/100 Pulse Ox 97 O2 Delivery Room Air Capillary Refill : Less Than 3 Seconds Blood Pressure Mean: 114 Progress Note : Progress Note Seen and evaluated. IV via port access, normal saline 1 L bolus, Zofran 4 mg IV , morphine 10 mg IV and Toradol 30 mg IV ordered. Monitor patient. Labs and UA ordered. 2038: Patient still complaining of headache. Repeat morphine 5 mg IV. Patient has 4+ ketones in the urine but normal glucose in reported normal glucose over the past 24-36 hours and certainly not high recently. When this is related to dehydration. We will repeat normal saline 1 L bolus. Labs have been reviewed and her well to previous. No indications of significant systemic infection currently. Cleocin is a reasonable option for infection of the ear bilaterally and she is currently on that. I did discuss with the and patient was listening that I do not currently have admission criteria but we will try to make her little bit more comfortable before sending her home. Monitor patient. 5: Better with respect to pain but has some itching. Benadryl 25 mg IV. Discharged home after with return precautions. Patient and family verbalize understanding instructions and agreement with plan. Departure Impression Impression: Primary Impression: Migraine Qualified Codes: G43.009 - Migraine without aura, not intractable, without status migrainosus Disposition: HOME, SELF-CARE Condition: Stable Departure-Patient Inst. Decision time for Depature: 21:45 Referrals: RUBIO MEZA DO (PCP/Family) Primary Care Physician Patient Instructions: Migraine Headache (DC) Add. Discharge Instructions: All discharge instructions reviewed with patient and/or family. Voiced understanding. Continue home medications. Drink plenty of fluids. Follow-up with your DrVasquez in a few days for recheck. Return for worse pain, fever, vomiting, weakness, breathing problems or other concerns as needed. THOMAS HERNANDEZ MD Oct 11, 2017 19:24
[2017-10-11 19:27] LABS: BASOPHILS # (AUTO) 0.1 10^3/uL (0.0-0.1); BASOPHILS % (AUTO) 1 % (0-10); EOSINOPHILS # (AUTO) 0.4 10^3/uL (0.0-0.3); EOSINOPHILS % (AUTO) 4 % (0-10); LYMPHOCYTES # (AUTO) 4.3 X 10^3 (1.0-4.0); LYMPHOCYTES % (AUTO) 49 % (12-44); MEAN CORPUSCULAR HEMOGLOBIN 27 PG (25-34); MEAN CORPUSCULAR HGB CONC 33 G/DL (32-36); MEAN CORPUSCULAR VOLUME 82 FL (80-99); MEAN PLATELET VOLUME 10.7 FL (7.4-10.4); MONOCYTES # (AUTO) 0.6 X 10^3 (0.0-1.0); MONOCYTES % (AUTO) 7 % (0-12); NEUTROPHILS # (AUTO) 3.5 X 10^3 (1.8-7.8); NEUTROPHILS % (AUTO) 40 % (42-75); PLATELET COUNT 280 10^3/uL (130-400); RED BLOOD COUNT 3.87 10^6/uL (4.35-5.85); RED CELL DISTRIBUTION WIDTH 16.3 % (10.0-14.5); WHITE BLOOD COUNT 8.8 10^3/uL (4.3-11.0)
[2017-10-11] MEDS ORDERED: ONDANSETRON 4 MG/2 ML (SDV) Z0FRAN IVP ONE (19:30)
[2017-10-11 19:40] LABS: BILIRUBIN,URINE NEGATIVE (NEGATIVE); KETONES,URINE 4+ (NEGATIVE); LEUKOCYTE ESTERASE ,URINE 3+ (NEGATIVE); NITRITE,URINE NEGATIVE (NEGATIVE); PH,URINE 6 (5-9); PROTEIN,URINE 2+ (NEGATIVE); UROBILINOGEN,URINE NORMAL (NORMAL)
[2017-10-11 19:45] LABS: ALANINE AMINOTRANSFERASE 11 U/L (0-55); ALBUMIN 3.5 GM/DL (3.2-4.5); ANION GAP 13 MMOL/L (5-14); ASPARTATE AMINO TRANSFERASE 12 U/L (5-34); BILIRUBIN,TOTAL 0.2 MG/DL (0.1-1.0); BLOOD UREA NITROGEN 8 MG/DL (7-18); BUN/CREATININE RATIO 9; CALCIUM 8.8 MG/DL (8.5-10.1); CARBON DIOXIDE 22 MMOL/L (21-32); CHLORIDE 104 MMOL/L (98-107); CREATININE SERUM 0.86 MG/DL (0.60-1.30); GFR ESTIMATED > 60; GLUCOSE 106 MG/DL (70-105); POTASSIUM 3.3 MMOL/L (3.6-5.0); SODIUM 139 MMOL/L (135-145); TOTAL PROTEIN 6.4 GM/DL (6.4-8.2); hs C REACTIVE PROTEIN 1.71 MG/DL (0.00-0.50)
[2017-10-11 19:53] LABS: SQUAMOUS EPITHELIAL CELL,UR >50 /HPF
[2017-10-11] MEDS ORDERED: diphenhydrAMINE 50 MG/ML INJ (BENADRYL) IVP ONE (21:45)
[2017-10-11 22:25] VITALS: BP 130/88
== END 2017-10-11 22:25 | disposition home or self-care (01) ==
LOC: EDUNIT# 18:30 → ER 18:31
DX: G43.909 Migraine, unspecified, not intractable, without status migrainosus (principal); J45.909 Unspecified asthma, uncomplicated; E78.00 Pure hypercholesterolemia, unspecified; I10 Essential (primary) hypertension; G40.909 Epilepsy, unspecified, not intractable, without status epilepticus; E11.40 Type 2 diabetes mellitus with diabetic neuropathy, unspecified; E03.9 Hypothyroidism, unspecified; F41.9 Anxiety disorder, unspecified; F32.9 Major depressive disorder, single episode, unspecified; Z87.820 Personal history of traumatic brain injury; Z79.4 Long term (current) use of insulin; Z80.0 Family history of malignant neoplasm of digestive organs; Z82.49 Family history of ischemic heart disease and other diseases of the circulatory system; Z90.710 Acquired absence of both cervix and uterus; Z87.19 Personal history of other diseases of the digestive system; Z87.440 Personal history of urinary (tract) infections
CPT/HCPCS: 36415; 80053; 81000; 85025; 86141

== ENCOUNTER → 2017-11-02 | Emergency (ER) | payer BC, MEDICARE, MEDICAID ==
[~2017-11-02] VITALS: Ht 165.1 cm; Wt 72.6 kg
[~2017-11-02] MED LIST changes: +KETOROLAC 30 MG/ML VIAL IM ONE; +PROCHLORPERAZINE 10 MG/2ML INJ (COMPAZINE) IM ONE; +PROCHLORPERAZINE 10 MG/2ML INJ (COMPAZINE) ONE; +PROM25TA14 PO; +PROMETHAZINE 25 MG (PHENERGAN) TAB PO ONE; +PROMETHAZINE INJ 25 MG/ML (PHENERGAN) AMP IM ONE; +PROMETHAZINE INJ 25 MG/ML (PHENERGAN) AMP ONE
[2017-11-02 17:45] VITALS: BP 145/114
--- NOTE | 2017-11-02 18:18 | ED GI ---
General Chief Complaint: Abdominal/GI Problems Stated Complaint: N/V Source of Information: Patient, Family (son) Exam Limitations: No Limitations History of Present Illness Time Seen By Provider: 17:59 Initial Comments Patient presents to ER by private conveyance with chief complaint that she is having one day of body aches for the last night she started experiencing some nausea and vomiting nonbloody emesis. She's had no problems passing a bowel movement but had no diarrhea. She has no history of irritable bowel or inflammatory bowel disease. No sick contacts, recent travel outside the [facility], drinking from unsafe water sources. She has her to 3 days before started sprinting symptoms of a cold. She saw her primary care physician this morning in the clinic and he gave her Zofran and told her to get plenty of fluids and wait it out. She's having some aching pain in her epigastric region that started especially after vomiting. She's had no rash, fevers, chills, trauma, incontinence or urinary hesitancy. She denies dysuria or discharge. The patient denies any antibiotics the last 4 weeks. She has had her gallbladder removed and a hysterectomy. Allergies and Home Medications Allergies Coded Allergies: Sulfa (Sulfonamide Antibiotics) (Verified Allergy, Unknown, 11/26/15) Home Medications Albuterol Sulfate 18 Gm Hfa.aer.ad, 2 PUFF IH Q6H PRN for SHORTNESS OF BREATH, ( Reported) Alprazolam 1 Mg Tablet, 1 MG PO DAILY PRN for ANXIETY, (Reported) Atorvastatin Calcium 40 Mg Tablet, 40 MG PO HS, (Reported) Carbamazepine 200 Mg Tab.er.12h, 200 MG PO DAILY, (Reported) Clindamycin HCl 300 Mg Capsule, 300 MG PO QID, #28 Ref 0 Prescribed by: LOUISA MACE on 10/08/17 1521 Dextroamphetamine/Amphetamine 20 Mg Tablet, 20 MG PO BID, (Reported) Duloxetine HCl 60 Mg Capsule.dr, 60 MG PO BID, (Reported) Estrogens, Conjugated 0.625 Mg Tablet, 0.625 MG PO DAILY, (Reported) Fesoterodine Fumarate 4 Mg Tab.sr.24h, 4 MG PO DAILY, (Reported) Fludrocortisone Acetate 0.1 Mg Tab, 0.1 MG PO BID, (Reported) Fluticasone Propionate 16 Gm [place].susp, 1 SPRAY NSEACH BID PRN for ALLERGIES, ( Reported) Glucagon,Human Recombinant 1 Mg/Kit Soln, UD PRN for BLOOD SUGAR, (Reported) Hydrocodone/Acetaminophen 1 Each Tablet, 1 TAB PO QID PRN for PAIN, (Reported) Hydroxychloroquine Sulfate 200 Mg Tablet, 200 MG PO DAILY, (Reported) Hyoscyamine Sulfate 0.125 Mg Tab.subl, 0.125 MG SL Q6H PRN for SPASMS, #10 Ref 0 Prescribed by: LOUISA MACE on 09/22/172156 Insulin Degludec 100 Unit/1 Ml Insuln.pen, 17 UNITS SQ HS, (Reported) Insulin Lispro 100 Unit/1 Ml Insuln.pen, 4-6 UNITS SQ AC, (Reported) Levothyroxine Sodium 137 Mcg Tablet, 137 MCG PO DAILY, (Reported) Lorazepam 1 Mg Tablet, 1 MG PO TID PRN for ANXIETY, (Reported) Magnesium Oxide 400 Mg Tablet, 400 MG PO HS, (Reported) Metoclopramide HCl 10 Mg Tablet, 10 MG PO QID, (Reported) Montelukast Sodium 10 Mg Tablet, 10 MG PO DAILY, (Reported) Pantoprazole Sodium 40 Mg Tablet.dr, 40 MG PO DAILY, (Reported) Potassium Chloride 10 Meq Capsule.er, 10 MEQ PO DAILY, (Reported) Pregabalin 150 Mg Capsule, 150 MG PO BID, (Reported) Promethazine HCl 25 Mg Supp.rect, 25 MG RC Q6H PRN for NAUSEA/VOMITING-1ST LINE , #6 Ref 0 Prescribed by: LOUISA MACE on 09/22/172056 Rizatriptan Benzoate 10 Mg Tablet, 10 MG PO DAILY PRN for MIGRAINE, (Reported) Sucralfate 1 Gm/10 Ml Oral.susp, 1 GM PO QID PRN for STOMACH UPSET, (Reported) Tizanidine HCl 4 Mg Tablet, 4 MG PO TID PRN for MUSCLE SPASMS, (Reported) Zolpidem Tartrate 10 Mg Tablet, 10 MG PO HS, (Reported) Review of Systems Constitutional: No chills, No diaphoresis, No fever, malaise (Body aches) EENTM: No Eye Pain, No Ear Pain Respiratory: Denies Cough, Denies Shortness of Air Cardiovascular: Denies Chest Pain, Denies Lightheadedness Gastrointestinal: See HPI, Denies Abdomen Distended, Abdominal Pain, Denies Constipated, Denies Diarrhea, Nausea, Poor Appetite, Vomiting Genitourinary: Denies Burning, Denies Discharge Musculoskeletal: No back pain, No joint pain Skin: No pruritus, No rash Past Efowbnv-Ejktpt-Xschkj Hx Patient Social History Alcohol Use: Denies Use 2nd Hand Smoke Exposure: No Recent Hopitalizations: No Immunizations Up To Date Tetanus Booster (TDap): More than 5yrs Date of Pneumonia Vaccine: Aug 19, 2014 Date of Influenza Vaccine: Aug 22, 2017 Seasonal Allergies Seasonal Allergies: No Surgeries History of Surgeries: Yes (PORT,CARPAL TUNNEL, R.HIP, BILAT SHOULDER SURGERY) Surgeries: Eye Surgery, Gallbladder, Hysterectomy, Orthopedic, Vascular Surgery Respiratory History of Respiratory Disorde: Yes Respiratory Disorders: Asthma Currently Using CPAP: No Currently Using BIPAP: No Cardiovascular History of Cardiac Disorders: Yes Cardiac Disorders: High Cholesterol, Hypertension Neurological History of Neurological Disord: Yes Neurological Disorders: Concussion, Headaches /Migraines, Neuropathy, Seizure Disorder, Traumatic Brain Injury Reproductive System Hx Reproductive Disorders: No Sexually Transmitted Disease: No HIV/AIDS: No Female Reproductive Disorders: Denies 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 Genitourinary History of Genitourinary Disor: Yes (UTI) Gastrointestinal History of Gastrointestinal Di: Yes (GASTROPARESIS) Gastrointestinal Disorders: Ulcer Musculoskeletal History of Musculoskeletal Dis: Yes Musculoskeletal Disorders: Arthritis Endocrine History of Endocrine Disorders: Yes (ADRENAL DISEASE) Endocrine Disorders: Diabetes, Insulin dep, Hypothyroidsim HEENT History of HEENT Disorders: Yes HEENT Disorders: Chronic Ear Infection Loss of Vision: Denies Hearing Impairment: Denies Cancer History of Cancer: No Psychosocial History of Psychiatric Problem: Yes Behavioral Health Disorders: Anxiety, Depression Integumentary History of Skin or Integumenta: No Blood Transfusions History of Blood Disorders: No Adverse Reaction to a Blood Tr: No Family Medical History Significant Family History: No Pertinent Family Hx, Cancer Family Medial History: Alcoholism 09 BROTHER Cancer 03 MOTHER (PANCREATIC CA) Myocardial infarction 03 MOTHER Physical Exam Vital Signs Capillary Refill : General Appearance: WD/WN, mild distress HEENT: PERRL/EOMI, normal ENT inspection, pharynx normal Neck: non-tender, normal inspection Respiratory: chest non-tender, lungs clear Cardiovascular: normal peripheral pulses, regular rate, rhythm, no edema Peripheral Pulses: 2+ Dorsalis Pedis (R), 2+ Left Dors-Pedis (L) Gastrointestinal: normal bowel sounds, soft, no organomegaly, No guarding, No rebound, tenderness (To direct palpation over epigastric region but not while auscultating directly.), No mass, other (No mesenteric signs) Extremities: No non-tender, No normal inspection, No normal capillary refill Neurologic/Psychiatric: alert, oriented x 3 Skin: No normal color, No warm/dry Progress/Results/Core Measures Results/Orders My Orders Orders - CARA LEWIS Ketorolac Injection (Toradol Injection) (11/02/17 18:15) Progress Note : Time: 18:16 Progress Note The patient does not have an acute belly and has normal vital signs. Her mouth looks little dry and she probably need to drink more which we will aide her by giving her some antinausea medicines. The patient's presentation is most consistent with gastroenteritis has only been going on for less than 24 hours. She has Zofran so we'll send her some Phenergan she's infecting story that initially the Zofran was working but now does not. She says she is not having any nausea now after receiving a Zofran injection from EMS on route. She is mostly just asked for something for her pain and I have advised her that Tylenol or Motrin will be very reasonable so we'll give her a shot of Toradol tonight. Highly encourage fluids and follow-up if she is not getting better in 3 -5 days. We have discussed appropriate Imodium use. Departure Impression Impression: Primary Impression: Viral gastroenteritis Disposition: 01 HOME, SELF-CARE Condition: Stable Departure-Patient Inst. Decision time for Depature: 18:17 Referrals: RUBIO MEZA DO (PCP/Family) Primary Care Physician Patient Instructions: Viral Gastroenteritis, Adult (DC) Add. Discharge Instructions: You need to drink lots of fluids and avoid caffeine. Half strength Gatorade or Pedialyte would be reasonable to get some salt back in you. If you're having body aches or abdominal pain you may use Tylenol 1000 mg every 8 hours as needed and or ibuprofen 800 mg every 8 hours as needed. You can also use heat wraps. Typically viral gastroenteritis last about 3-5 days of going on beyond that then you need to follow up with your primary care physician. If you begin to experience diarrhea for more than 24-48 hours then you can take 2 tablets of Imodium and then one tablet every 4 hours after that as long as you continue to have watery stools. If you have bloody stools or vomiting then you should return to the ER. For your nausea may take one tablet of the Zofran and place under your tongue and allowed to absorb every 6 hours. If this is not adequate you may also use the Phenergan that I sent to the pharmacy 1 tablet every 6 hours as well. Phenergan will cause drowsiness. All discharge instructions reviewed with patient and/or family. Voiced understanding. Scripts Promethazine HCl (Promethazine Tablet) 25 Mg Tablet 25 MG PO Q6H Y for NAUSEA/VOMITING, #14 TAB 0 Refills Prov: CARA LEWIS 11/02/17 Copy Copies To 1: RUBIO MEZA DO CARA LEWIS Nov 02, 2017 18:18
== END ==
LOC: EDUNIT# 17:45 → ER 17:46
DX: A08.4 Viral intestinal infection, unspecified (principal); J45.909 Unspecified asthma, uncomplicated; I10 Essential (primary) hypertension; E11.40 Type 2 diabetes mellitus with diabetic neuropathy, unspecified; E03.9 Hypothyroidism, unspecified; E78.00 Pure hypercholesterolemia, unspecified; G40.909 Epilepsy, unspecified, not intractable, without status epilepticus; G43.909 Migraine, unspecified, not intractable, without status migrainosus; F41.9 Anxiety disorder, unspecified; F32.9 Major depressive disorder, single episode, unspecified; Z87.440 Personal history of urinary (tract) infections; Z87.19 Personal history of other diseases of the digestive system; Z80.0 Family history of malignant neoplasm of digestive organs; Z87.820 Personal history of traumatic brain injury; Z82.49 Family history of ischemic heart disease and other diseases of the circulatory system; Z79.4 Long term (current) use of insulin; Z96.643 Presence of artificial hip joint, bilateral; Z90.710 Acquired absence of both cervix and uterus
CPT/HCPCS: 99282

== ENCOUNTER 2017-12-24 15:46 | Emergency (ER) | payer BC, MEDICARE, MEDICAID ==
[~2017-12-24] VITALS: Ht 165.1 cm; Wt 67.1 kg
[~2017-12-24 15:46] MED LIST changes: -KETOROLAC 30 MG/ML VIAL IM ONE; -PROCHLORPERAZINE 10 MG/2ML INJ (COMPAZINE) IM ONE; -PROCHLORPERAZINE 10 MG/2ML INJ (COMPAZINE) ONE; -PROMETHAZINE 25 MG (PHENERGAN) TAB PO ONE; -PROMETHAZINE INJ 25 MG/ML (PHENERGAN) AMP IM ONE; -PROMETHAZINE INJ 25 MG/ML (PHENERGAN) AMP ONE
--- OUTSIDE RECORDS SUMMARY | 2017-12-24 16:07 | XMS REPORT | Continuity of Care Document ---
Author Author [facility] Organization [facility] Address Unknown Phone Unavailable Allergies Active Description Code Type Severity Reaction Onset Reported/Identified Relationship to Patient Clinical Status Yes Sulfa (Sulfonamide Antibiotics) [id number] Drug Allergy Unknown N/A 2015 Medications There is no data. Problems Date Dx Coded Attending Type Code [...] SUDDEN STRENUOUS MOVEM 11/17/2012 Ot V58.67 LONG-TERM ( 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 11/17/2012 Ot V58.69 OTH MED,LT, CURRENT USE 02/27/2013 Ot 250.61 DIAB W NEURO MANIFEST, TYPE I [JUVENILE 02/27/2013 Ot 272.4 HYPERLIPIDEMIA NEC/NOS 02/27/2013 Ot 288.60 LEUKOCYTOSIS , UNSPECIFIED 02/27/2013 Ot 357.2 NEUROPATHY IN DIABETES [...] II OR UNSPEC TY 12/19/2013 RUBIO MEZA DO, Ot 255.41 GLUCOCORTICOID DEFICIENCY 12/19/2013 RUBIO MEZA DO Ot 276.51 DEHYDRATION 12/19/2013 RUBIO MEZA DO Ot 346.90 MIGRAINE UNSPECIFIED W/O INTRACT MGRN W/ 12/19/2013 RUBIO MEZA DO Ot 458.0 ORTHOSTATIC HYPOTENSION 12/19/2013 RUBIO MEZA DO, Ot 493.90 ASTHMA, UNSPECIFIED 12/19/2013 RUBIO MEZA [...] Ot 244.9 HYPOTHYROIDISM NOS 02/06/2014 RUBIO MEZA DO, Ot 250.13 DIAB W KETOACIDOSIS, TYPE I [JUVENILE TY 02/06/2014 RUBIO MEZA DO Ot 250.63 DIAB W NEURO MANIFEST, TYPE I [JUVENILE 02/06/2014 RUBIO MEZA DO, Ot 272.0 PURE HYPERCHOLESTEROLEM 02/06/2014 RUBIO MEZA DO, Ot 276.50 VOLUME DEPLETION, UNSPECIFIED 02/06/2014 RUBIO MEZA DO, Ot 276.8 HYPOPOTASSEMIA 02/06/2014 RUBIO MEZA DO Ot 311 DEPRESSIVE DISORDER NEC 02/06/2014 RUBIO MEZA DO, Ot 346.90 MIGRAINE UNSPECIFIED W/O INTRACT MGRN W/ 02/06/2014 RUBIO MEZA DO, Ot 357.2 NEUROPATHY IN DIABETES 02/06/2014 RUBIO MEZA DO, Ot 401.9 HYPERTENSION NOS 02/06/2014 RUBIO MEZA DO, Ot 413.9 ANGINA PECTORIS NEC/NOS 02/06/2014 RUBIO MEZA DO, Ot 426.4 RT BUNDLE BRANCH BLOCK 02/06/2014 [...] Ot 244.9 HYPOTHYROIDISM NOS 02/11/2014 RUBIO MEZA DO, Ot 250.13 DIAB W KETOACIDOSIS, TYPE I [JUVENILE TY 02/11/2014 RUBIO MEZA DO Ot 250.63 DIAB W NEURO MANIFEST, TYPE I [JUVENILE 02/11/2014 RUBIO MEZA DO Ot 263.9 PROTEIN-CHRISTIN MALNUTR NOS 02/11/2014 RUBIO MEZA DO Ot 272.0 PURE HYPERCHOLESTEROLEM 02/11/2014 RUBIO MEZA DO, Ot 276.50 VOLUME DEPLETION, UNSPECIFIED 02/11/2014 RUBIO MEZA DO, Ot 276.8 HYPOPOTASSEMIA 02/11/2014 RUBIO MEZA DO Ot 311 DEPRESSIVE DISORDER NEC 02/11/2014 RUBIO MEZA DO, Ot 346.90 MIGRAINE UNSPECIFIED W/O INTRACT MGRN W/ 02/11/2014 RUBIO MEZA DO, Ot 357.2 NEUROPATHY IN DIABETES 02/11/2014 RUBIO MEZA DO, Ot 401.9 HYPERTENSION NOS 02/11/2014 RUBIO MEZA DO Ot 413.9 ANGINA PECTORIS NEC/NOS 02/11/2014 RUBIO MEZA DO, Ot 426.4 RT BUNDLE BRANCH BLOCK 02/11/2014 RUBIO MEZA DO, Ot 530.81 ESOPHAGEAL REFLUX 02/11/2014 RUBIO MEZA DO Ot 535.50 UNSP GASTRITIS GASTRODUODENITIS W/O ME [...] DIAB W NEURO MANIFEST, TYPE I [JUVENILE 03/06/2014 RUBIO MEZA DO Ot 255.41 GLUCOCORTICOID DEFICIENCY 03/06/2014 RUBIO MEZA DO Ot 263.1 MALNUTRITION MILD DEGREE 03/06/2014 RUBIO EMZA DO Ot 272.4 HYPERLIPIDEMIA NEC/NOS 03/06/2014 RUBIO [...] ABDOMINAL PAIN, UNSPECIFIED SITE 03/06/2014 RUBIO MEZA DO Ot V12.71 PERSONAL HISTORY OF PEPTIC ULCER DISEASE 03/06/2014 RUBIO MEZA DO Ot V15.52 PERSONAL HISTORY OF TRAUMATIC BRAIN INJU 03/06/2014 RUBIO MEZA DO Ot V15.81 HX OF PAST NONCOMPLIANCE 03/06/2014 RUBIO MEZA DO, Ot V58.67 LONG-TERM (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 03/29/2014 BRENDA PARDO APRN Ot 276.8 HYPOPOTASSEMIA 03/29/2014 BRENDA PARDO APRN Ot 346.90 MIGRAINE UNSPECIFIED W/O INTRACT MGRN W/ 03/29/2014 BRENDA PARDO APRN Ot 787.01 NAUSEA WITH VOMITING 05/09/2014 RUBIO MEZA DO Ot 250.61 DIAB W NEURO MANIFEST, TYPE I [JUVENILE 05/09/2014 RUBIO MEZA DO Ot 255.41 GLUCOCORTICOID DEFICIENCY 05/09/2014 RUBIO MEZA DO, Ot 275.2 DIS MAGNESIUM METABOLISM 05/09/2014 RUBIO MEZA DO Ot 276.51 DEHYDRATION 05/09/2014 RUBIO MEZA DO Ot 296.20 DEPRESS DISORDER-UNSPEC 05/09/2014 RUBIO MEZA DO Ot 309.9 ADJUSTMENT REACTION NOS 05/09/2014 RUBIO MEZA DO Ot 530.81 ESOPHAGEAL REFLUX 05/09/2014 RUBIO MEZA DO Ot 536.3 GASTROPARESIS 05/09/2014 RUBIO MEZA DO, Ot 729.1 MYALGIA AND MYOSITIS NOS 05/09/2014 RUBIO MEZA DO, Ot V58.67 LONG-TERM (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 06/12/2014 RUBIO MEZA DO Ot 244.9 HYPOTHYROIDISM NOS 06/12/2014 RUBIO MEZA DO Ot 250.61 DIAB W NEURO MANIFEST, TYPE I [JUVENILE 06/12/2014 RUBIO MEZA DO Ot 255.41 GLUCOCORTICOID [...] MYALGIA AND MYOSITIS NOS 06/12/2014 RUBIO MEZA DO, Ot V15.52 PERSONAL HISTORY OF TRAUMATIC BRAIN INJU 06/12/2014 RUBIO MEZA DO, Ot V58.67 LONG-TERM (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 08/07/2014 RUBIO MEZA DO Ot 244.9 HYPOTHYROIDISM NOS 08/07/2014 RUBIO MEZA DO Ot 250.61 DIAB W NEURO MANIFEST, TYPE I [JUVENILE 08/07/2014 RUBIO MEZA DO Ot 255.41 GLUCOCORTICOID [...] AMANDA Almanzar Ot V81.5 02/24/2015 RUBIO MEZA DO Ot V58.81 02/24/2015 MARQUITA FLOREZ DO Ot [...] INSULIN 04/05/2015 JF MALIK DO Ot V58.69 OT MED,LT,CURRENT USE 04/19/2015 MARQUITA FLOREZ DO Ot 719.43 05/10/2015 MARQUITA FLOREZ DO Ot 719.43 07/03/2015 Ot 346.90 07/03/2015 Ot 780.4 07/03/2015 Ot 781.2 07/03/2015 PRIYA LIAO, AMANDA Almanzar Ot 599.70 07/03/2015 PRIYA LIAO, AMANDA Almanzar Ot V81.5 07/03/2015 MARQUITA FLOREZ DO Ot 719.43 07/03/2015 RUBIO MEZA DO Ot V58.81 07/04/2015 RUBIO MEZA DO Ot 244.9 HYPOTHYROIDISM NOS 07/04/2015 RUBIO MEZA DO Ot 250.61 DIAB W NEURO MANIFEST, TYPE I [JUVENILE 07/04/2015 RUBIO MEZA DO Ot 255.41 GLUCOCORTICOID DEFICIENCY 07/04/2015 RUBIO MEZA DO Ot 272.0 PURE HYPERCHOLESTEROLEM 07/04/2015 RUBIO MEZA DO Ot 276.51 DEHYDRATION 07/04/2015 RUBIO MEZA DO Ot 276.8 HYPOPOTASSEMIA 07/04/2015 RUBIO MEZA DO [...] DO Ot E86.0 DEHYDRATION 08/22/2015 RUBIO MEZA DO, Ot F32.9 MAJOR DEPRESSIVE DISORDER, SINGLE EPISOD 08/22/2015 RUBIO MEZA DO, Ot 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, UN 08/22/2015 RUBIO MEZA DO, Ot G43.919 MIGRAINE, UNSP, INTRACTABLE, WITHOUT STA 08/22/2015 RUBIO MEZA DO, Ot R44.3 HALLUCINATIONS, UNSPECIFIED 09/17/2015 Ot 346.90 09/17/2015 Ot 780.4 09/17/2015 Ot 781.2 09/17/2015 PRIYA LIAO, AMANDA Almanzar Ot 599.70 09/17/2015 PRIYA LIAO, AMANDA Almaznar Ot V81.5 09/17/2015 MARQUITA FLOREZ DO Ot 719.43 09/17/2015 RUBIO MEZA DO Ot V58.81 10/29/2015 RUBIO MEZA DO Ot E03.9 HYPOTHYROIDISM, UNSPECIFIED 10/29/2015 RUBIO MEZA DO Ot 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 10/29/2015 RUBIO MEZA DO Ot E10.65 TYPE [...] VALDEZ DO Ot E03.9 HYPOTHYROIDISM, UNSPECIFIED 11/30/2015 SANDAR VALDEZ DO Ot E11.9 TYPE 2 DIABETES [...] OBSTRUCTION 11/30/2015 SANDRA VALDEZ DO Ot Z79.4 PENITENTIARY (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 12/21/2015 Ot 346.90 12/21/2015 Ot 780.4 12/21/2015 Ot 781.2 12/21/2015 PRIYA LIAO, AMANDA Almanzar Ot 599.70 12/21/2015 PRIYA LIAO, AMANDA A [...] PAIN 01/25/2016 THOMAS HERNANDEZ MD Ot Z79.4 CCU NURSE (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 01/28/2016 RMEI LIAO, JF Almanzar Ot E03.9 01/28/2016 REMI [...] OBSTRUCTION 04/15/2016 VALDEZSANDRA GARCIA DO Ot Z79.4 CCU NURSE (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 12/29/2016 Ot 346.90 [...] 01/18/2017 NEVAEH LANIER MD Ot Z79.899 OTHER CCU NURSE (CURRENT) DRUG THERAPY 01/18/2017 NEVAEH LANIER MD [...] 01/18/2017 NEVAEH LANIER MD Ot Z79.899 OTHER CCU NURSE (CURRENT) DRUG THERAPY 02/23/2017 RUBIO MEZA DO Ot 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 02/23/2017 MEZARUBIO MELTON DO Ot R53.83 OTHER FATIGUE 02/28/2017 RUBIO MEZA DO Ot 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 02/28/2017 MEZARUBIO MELTON DO Ot R53.83 OTHER FATIGUE 03/09/2017 RUBIO MEZA DO Ot 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 03/09/2017 MEZARUBIO MELTON DO Ot R53.83 OTHER FATIGUE 03/28/2017 RUBIO MEZA DO Ot 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 03/28/2017 MEZARUBIO MELTON DO Ot R53.83 OTHER FATIGUE 05/18/2017 BRENDA PARDO APRN Ot E03.9 HYPOTHYROIDISM, UNSPECIFIED 05/18/2017 BRENDA PARDO [employer] SUPER[employer] Ot E11.9 TYPE 2 DIABETES MELLITUS WITHOUT COMPLIC 05/18/2017 BRENDA PARDO APRN Ot E78.00 PURE HYPERCHOLESTEROLEMIA, UNSPECIFIED 05/18/2017 BRENDA PARDO APRN Ot F41.8 OTHER SPECIFIED ANXIETY DISORDERS 05/18/2017 RBENDA PARDO APRN Ot G43.909 MIGRAINE, UNSP, NOT INTRACTABLE, WITHOUT 05/18/2017 RBENDA PARDO APRN Ot I10 ESSENTIAL (PRIMARY) HYPERTENSION 05/18/2017 BRENDA PARDO APRN Ot M19.90 UNSPECIFIED OSTEOARTHRITIS, UNSPECIFIED 05/18/2017 BRENDA PARDO APRN Ot R51 HEADACHE 05/18/2017 BRENDA PARDO APRN Ot Z79.4 CCU NURSE (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 05/18/2017 BRENDA PARDO APRN Ot Z90.49 ACQUIRED ABSENCE OF OTHER SPECIFIED PART 05/18/2017 BRENDA PARDO APRN Ot Z90.89 ACQUIRED ABSENCE OF OTHER ORGANS 05/21/2017 BRENDA PARDO APRN Ot E03.9 HYPOTHYROIDISM, UNSPECIFIED 05/21/2017 BRENDA PARDO APRN Ot E11.9 TYPE 2 DIABETES MELLITUS WITHOUT COMPLIC 05/21/2017 BRENDA PARDO APRN Ot E78.00 PURE HYPERCHOLESTEROLEMIA, UNSPECIFIED 05/21/2017 BRENDA PARDO APRN Ot F41.8 OTHER SPECIFIED ANXIETY DISORDERS 05/21/2017 BRENDA PARDO APRN Ot G43.909 MIGRAINE, UNSP, NOT INTRACTABLE, WITHOUT 05/21/2017 BRENDA PARDO APRN Ot I10 ESSENTIAL (PRIMARY) HYPERTENSION 05/21/2017 BRENDA PARDO APRN Ot M19.90 UNSPECIFIED OSTEOARTHRITIS, UNSPECIFIED 05/21/2017 BRENDA PARDO APRN Ot R51 HEADACHE 05/21/2017 BRENDA PARDO APRN Ot Z79.4 CCU NURSE (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 05/21/2017 BRENDA PARDO APRN Ot Z90.49 ACQUIRED ABSENCE OF OTHER SPECIFIED PART 05/21/2017 BRENDA PARDO [employer]SE SUPERVISOR Ot Z90.89 ACQUIRED ABSENCE OF OTHER ORGANS 05/22/2017 BRENDA PARDO APRN Ot E03.9 HYPOTHYROIDISM, UNSPECIFIED 05/22/2017 BRENDA PARDO APRN Ot E11.9 TYPE 2 DIABETES MELLITUS WITHOUT COMPLIC 05/22/2017 BRENDA PARDO APRN Ot E78.00 PURE HYPERCHOLESTEROLEMIA, UNSPECIFIED 05/22/2017 BRENDA PARDO [employer] SUPERVISOR Ot F41.8 OTHER SPECIFIED ANXIETY DISORDERS 05/22/2017 BRENDA PARDO [employer] SUPERVISOR Ot G43.909 MIGRAINE, UNSP, NOT INTRACTABLE, WITHOUT 05/22/2017 BRENDA PARDO [employer] SUPERVISOR Ot I10 ESSENTIAL (PRIMARY) HYPERTENSION 05/22/2017 BRENDA PARDO [employer] SUPERVISOR Ot M19.90 UNSPECIFIED OSTEOARTHRITIS, UNSPECIFIED 05/22/2017 BRENDA PARDO [employer] SUPERVISOR Ot R51 HEADACHE 05/22/2017 BRENDA PARDO APRN Ot Z79.4 CCU NURSE (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 05/22/2017 BRENDA PARDO APRN Ot Z90.49 ACQUIRED ABSENCE OF OTHER SPECIFIED PART 05/22/2017 BRENDA PARDO APRN Ot Z90.89 ACQUIRED ABSENCE OF OTHER ORGANS 05/22/2017 BRENDA PARDO APRN Ot E03.9 HYPOTHYROIDISM, UNSPECIFIED 05/22/2017 BRENDA PARDO APRN Ot E11.9 TYPE 2 DIABETES MELLITUS WITHOUT COMPLIC 05/22/2017 BRENDA PARDO APRN Ot E78.00 PURE HYPERCHOLESTEROLEMIA, UNSPECIFIED 05/22/2017 BRENDA PARDO [employer] SUPERVISOR Ot F41.8 OTHER SPECIFIED ANXIETY DISORDERS 05/22/2017 BRENDA PARDO APRN Ot G43.909 MIGRAINE, UNSP, NOT INTRACTABLE, WITHOUT 05/22/2017 BRENDA PARDO [employer] SUPERVISOR Ot I10 ESSENTIAL (PRIMARY) HYPERTENSION 05/22/2017 BRENDA PARDO [employer]SE SUPERVISOR Ot M19.90 UNSPECIFIED OSTEOARTHRITIS, UNSPECIFIED 05/22/2017 BRENDA PARDO APRN Ot R51 HEADACHE 05/22/2017 BRENDA PARDO APRN Ot Z79.4 CCU NURSE (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 05/22/2017 BRENDA PARDO APRN Ot Z90.49 ACQUIRED ABSENCE OF OTHER SPECIFIED PART 05/22/2017 BRENDA PARDO APRN Ot Z90.89 ACQUIRED ABSENCE OF OTHER ORGANS 05/30/2017 RUBIO MEZA DO Ot Z45.2 ENCOUNTER FOR ADJUSTMENT AND MANAGEMENT 06/08/2017 ANDRES LIAO, MARQUITA Fang Ot E03.9 HYPOTHYROIDISM, UNSPECIFIED 06/08/2017 MARQUITA CAMPOS MD Ot E11.40 TYPE 2 DIABETES MELLITUS WITH DIABETIC N 06/08/2017 MARQUITA CAMPOS MD Ot E11.65 TYPE 2 DIABETES MELLITUS WITH HYPERGLYCE 06/08/2017 MARQUITA CAMPOS MD Ot E78.00 PURE HYPERCHOLESTEROLEMIA, UNSPECIFIED 06/08/2017 MARQUITA CAMPOS MD Ot F32.9 MAJOR DEPRESSIVE DISORDER, SINGLE EPISOD 06/08/2017 MARQUITA CAMPOS MD Ot F41.9 ANXIETY DISORDER, UNSPECIFIED 06/08/2017 MARQUITA CAMPOS MD Ot G43.909 MIGRAINE, UNSP, NOT INTRACTABLE, WITHOUT 06/08/2017 ANDRES LIAO, MARQUITA Fang Ot I10 ESSENTIAL (PRIMARY) HYPERTENSION 06/08/2017 ANDRES LIAO, MARQUITA Fang Ot J45.909 UNSPECIFIED ASTHMA, UNCOMPLICATED 06/08/2017 MARQUITA CAMPOS MD Ot R11.2 NAUSEA WITH VOMITING, UNSPECIFIED 06/08/2017 MARQUITA CAMPOS MD Ot R73.09 OTHER ABNORMAL GLUCOSE 06/08/2017 MARQUITA CAMPOS MD Ot Z79.4 PENITENTIARY (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 06/08/2017 MARQUITA CAMPOS MD Ot Z80.0 FAMILY HISTORY OF MALIGNANT NEOPLASM OF 06/08/2017 MARQUITA CAMPOS MD Ot Z82.49 FAMILY HX OF ISCHEM HEART DIS AND OTH DI 06/08/2017 MARQUITA CAMPOS MD Ot Z87.820 PERSONAL HISTORY OF TRAUMATIC BRAIN INJU 06/08/2017 MARQUITA CAMPOS MD Ot Z90.710 ACQUIRED ABSENCE OF BOTH CERVIX AND UTER 06/11/2017 RUBIO MEZA DO Ot Z45.2 ENCOUNTER FOR ADJUSTMENT AND MANAGEMENT 07/09/2017 RUBIO MEZA DO Ot S09.90XA UNSPECIFIED INJURY OF HEAD, INITIAL ENCO 07/09/2017 RUBIO MEZA DO Ot X58.XXXA EXPOSURE TO OTHER SPECIFIED FACTORS, INI 07/11/2017 RUBIO MEZA DO, Ot Z45.2 ENCOUNTER FOR ADJUSTMENT AND MANAGEMENT 07/23/2017 CARA LEWIS MD Ot A08.4 VIRAL INTESTINAL INFECTION, UNSPECIFIED 07/23/2017 CARA LEWIS MD Ot E03.9 HYPOTHYROIDISM, UNSPECIFIED 07/23/2017 CARA LEWIS MD Ot E11.40 TYPE 2 DIABETES MELLITUS WITH DIABETIC N 07/23/2017 CARA LEWIS MD Ot E78.00 PURE HYPERCHOLESTEROLEMIA, UNSPECIFIED 07/23/2017 CARA LEWIS MD Ot F32.9 MAJOR DEPRESSIVE DISORDER, SINGLE EPISOD 07/23/2017 CARA LEWIS MD Ot F41.9 ANXIETY DISORDER, UNSPECIFIED 07/23/2017 CARA LEWIS MD Ot G43.909 MIGRAINE, UNSP, NOT INTRACTABLE, WITHOUT 07/23/2017 CARA LEWIS MD Ot I10 ESSENTIAL (PRIMARY) HYPERTENSION 07/23/2017 CARA LEWIS MD Ot J45.909 UNSPECIFIED ASTHMA, UNCOMPLICATED 07/23/2017 CARA LEWIS MD Ot R11.2 NAUSEA WITH VOMITING, UNSPECIFIED 07/23/2017 CARA LEWIS MD Ot Z79.4 CCU NURSE (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 07/23/2017 CARA LEWIS MD Ot Z80.0 FAMILY HISTORY OF MALIGNANT NEOPLASM OF 07/23/2017 CARA LEWIS MD Ot Z82.49 FAMILY HX OF ISCHEM HEART DIS AND OTH DI 07/23/2017 CARA LEWIS MD Ot Z87.19 PERSONAL HISTORY OF OTHER DISEASES OF 07/23/2017 CARA LEWIS MD Ot Z87.820 PERSONAL HISTORY OF TRAUMATIC BRAIN INJU 07/23/2017 CARA LEWIS MD Ot Z90.710 ACQUIRED ABSENCE OF BOTH CERVIX AND UTER 08/11/2017 CARA LEWIS MD Ot A08.4 VIRAL INTESTINAL INFECTION, UNSPECIFIED 08/11/2017 CARA LEWIS MD Ot E03.9 HYPOTHYROIDISM, UNSPECIFIED 08/11/2017 CARA LEWIS MD Ot E11.40 TYPE 2 DIABETES MELLITUS WITH DIABETIC N 08/11/2017 CARA LEWIS MD Ot E78.00 PURE HYPERCHOLESTEROLEMIA, UNSPECIFIED 08/11/2017 CARA LEWIS MD Ot F32.9 MAJOR DEPRESSIVE DISORDER, SINGLE EPISOD 08/11/2017 CARA LEWIS MD Ot F41.9 ANXIETY DISORDER, UNSPECIFIED 08/11/2017 CARA LEWIS MD Ot G43.909 MIGRAINE, UNSP, NOT INTRACTABLE, WITHOUT 08/11/2017 CARA LEWIS MD Ot I10 ESSENTIAL (PRIMARY) HYPERTENSION 08/11/2017 CARA LEWIS MD Ot J45.909 UNSPECIFIED ASTHMA, UNCOMPLICATED 08/11/2017 CARA LEWIS MD Ot R11.2 NAUSEA WITH VOMITING, UNSPECIFIED 08/11/2017 CARA LEWIS MD Ot Z79.4 CCU NURSE (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 08/11/2017 CARA LEWIS MD Ot Z80.0 FAMILY HISTORY OF MALIGNANT NEOPLASM OF 08/11/2017 CARA LEWIS MD Ot Z82.49 FAMILY HX OF ISCHEM HEART DIS AND OTH DI 08/11/2017 CARA LEWIS MD, Ot Z87.19 PERSONAL HISTORY OF OTHER DISEASES OF TH 08/11/2017 CARA LEWIS MD, Ot Z87.820 PERSONAL HISTORY OF TRAUMATIC BRAIN INJU 08/11/2017 CARA ELWIS MD, Ot Z90.710 ACQUIRED ABSENCE OF BOTH CERVIX AND UTER 08/15/2017 RUBIO MEZA DO, Ot S09.90XA UNSPECIFIED INJURY OF HEAD, INITIAL ENCO 08/15/2017 RUBIO MEZA DO, Ot X58.XXXA EXPOSURE TO OTHER SPECIFIED FACTORS, INI 08/18/2017 RUBIO MEZA DO, Ot Z45.2 ENCOUNTER FOR ADJUSTMENT AND MANAGEMENT 08/22/2017 RUBIO MEZA DO, Ot Z45.2 ENCOUNTER FOR ADJUSTMENT AND MANAGEMENT 08/22/2017 CARA LEWIS MD Ot A08.4 VIRAL INTESTINAL INFECTION, UNSPECIFIED 08/22/2017 CARA LEWIS MD Ot E03.9 HYPOTHYROIDISM, UNSPECIFIED 08/22/2017 CARA LEWIS MD Ot E11.40 TYPE 2 DIABETES MELLITUS WITH DIABETIC N 08/22/2017 CARA LEWIS MD Ot E78.00 PURE HYPERCHOLESTEROLEMIA, UNSPECIFIED 08/22/2017 CARA LEWIS MD Ot F32.9 MAJOR DEPRESSIVE DISORDER, SINGLE EPISOD 08/22/2017 CARA LEWIS MD Ot F41.9 ANXIETY DISORDER, UNSPECIFIED 08/22/2017 CARA LEWIS MD Ot G43.909 MIGRAINE, UNSP, NOT INTRACTABLE, WITHOUT 08/22/2017 CARA LEWIS MD Ot I10 ESSENTIAL (PRIMARY) HYPERTENSION 08/22/2017 CARA LEWIS MD, Ot J45.909 UNSPECIFIED ASTHMA, UNCOMPLICATED 08/22/2017 CARA LEWIS MD Ot R11.2 NAUSEA WITH VOMITING, UNSPECIFIED 08/22/2017 CARA LEWIS MD Ot Z79.4 PENITENTIARY (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 08/22/2017 CARA LEWIS MD Ot Z80.0 FAMILY HISTORY OF MALIGNANT NEOPLASM OF 08/22/2017 CARA LEWIS MD Ot Z82.49 FAMILY HX OF ISCHEM HEART DIS AND OTH DI 08/22/2017 CARA LEWIS MD Ot Z87.19 PERSONAL HISTORY OF OTHER DISEASES OF TH 08/22/2017 CARA LEWIS MD Ot Z87.820 PERSONAL HISTORY OF TRAUMATIC BRAIN INJU 08/22/2017 CARA LEWIS MD Ot Z90.710 ACQUIRED ABSENCE OF BOTH CERVIX AND UTER 09/03/2017 LOUISA BONILLA Ot E03.9 HYPOTHYROIDISM, UNSPECIFIED 09/03/2017 LOUISA BONILLA Ot E11.40 TYPE 2 DIABETES MELLITUS WITH DIABETIC N 09/03/2017 LOUISA BONILLA Ot E78.00 PURE HYPERCHOLESTEROLEMIA, UNSPECIFIED 09/03/2017 LOUISA BONILLA Ot E86.9 VOLUME DEPLETION, UNSPECIFIED 09/03/2017 LOUISA BONILLA Ot F32.9 MAJOR DEPRESSIVE DISORDER, SINGLE EPISOD 09/03/2017 LOUISA BONILLA Ot F41.9 ANXIETY DISORDER, UNSPECIFIED 09/03/2017 LOUISA BONILLA Ot G40.909 EPILEPSY, UNSP, NOT INTRACTABLE, WITHOUT 09/03/2017 LOUISA BONILLA Ot G43.909 MIGRAINE, UNSP, NOT INTRACTABLE, WITHOUT 09/03/2017 LOUISA BONILLA Ot I10 ESSENTIAL (PRIMARY) HYPERTENSION 09/03/2017 LOUISA BONILLA Ot J45.909 UNSPECIFIED ASTHMA, UNCOMPLICATED 09/03/2017 LOUISA BONILLA Ot R10.84 GENERALIZED ABDOMINAL PAIN 09/03/2017 LOUISA BONILLA Ot R51 HEADACHE 09/03/2017 LOUISA BONILLA Ot Z79.4 PENITENTIARY (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 09/03/2017 LOUISA BONILLA Ot Z80.0 FAMILY HISTORY OF MALIGNANT NEOPLASM OF 09/03/2017 LOUISA BONILLA Ot Z82.49 FAMILY HX OF ISCHEM HEART DIS AND OTH DI 09/03/2017 LOUISA BONILLA Ot Z87.19 PERSONAL HISTORY OF OTHER DISEASES OF TH 09/03/2017 LOUISA BONILLA Ot Z87.820 PERSONAL HISTORY OF TRAUMATIC BRAIN INJU 09/03/2017 LOUISA BONILLA Ot Z90.710 ACQUIRED ABSENCE OF BOTH CERVIX AND UTER 09/05/2017 NEVAEH LANIER MD Ot E03.9 HYPOTHYROIDISM, UNSPECIFIED 09/05/2017 NEVAEH LANIER MD Ot E11.43 TYPE 2 DIABETES W DIABETIC AUTONOMIC (PO 09/05/2017 NEVAEH LANIER MD Ot R11.2 NAUSEA WITH VOMITING, UNSPECIFIED 09/05/2017 NEVAEH LANIER MD Ot Z79.4 PENITENTIARY (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 09/09/2017 LOUISA BONILLA Ot E03.9 HYPOTHYROIDISM, UNSPECIFIED 09/09/2017 LOUISA BONILLA Ot E11.40 TYPE 2 DIABETES MELLITUS WITH DIABETIC N 09/09/2017 LOUISA BONILLA Ot E78.00 PURE HYPERCHOLESTEROLEMIA, UNSPECIFIED 09/09/2017 LOUISA BONILLA Ot E86.9 VOLUME DEPLETION, UNSPECIFIED 09/09/2017 LOUISA BONILLA Ot F32.9 MAJOR DEPRESSIVE DISORDER, SINGLE EPISOD 09/09/2017 LOUISA BONILLA Ot F41.9 ANXIETY DISORDER, UNSPECIFIED 09/09/2017 LOUISA BONILLA Ot G40.909 EPILEPSY, UNSP, NOT INTRACTABLE, WITHOUT 09/09/2017 LOUISA BONILLA Ot G43.909 MIGRAINE, UNSP, NOT INTRACTABLE, WITHOUT 09/09/2017 LOUISA BONILLA Ot I10 ESSENTIAL (PRIMARY) HYPERTENSION 09/09/2017 LOUISA BONILLA Ot J45.909 UNSPECIFIED ASTHMA, UNCOMPLICATED 09/09/2017 LOUISA BONILLA Ot R10.84 GENERALIZED ABDOMINAL PAIN 09/09/2017 LOUISA BONILLA Ot R51 HEADACHE 09/09/2017 LOUISA BONILLA Ot Z79.4 PENITENTIARY (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 09/09/2017 LOUISA BONILLA Ot Z80.0 FAMILY HISTORY OF MALIGNANT NEOPLASM OF 09/09/2017 LOUISA BONILLA Ot Z82.49 FAMILY HX OF ISCHEM HEART DIS AND OTH DI 09/09/2017 LOUISA BONILLA Ot Z87.19 PERSONAL HISTORY OF OTHER DISEASES OF 09/09/2017 LOUISA BONILLA Ot Z87.820 PERSONAL HISTORY OF TRAUMATIC BRAIN INJU 09/09/2017 LOUISA BONILLA Ot Z90.710 ACQUIRED ABSENCE OF BOTH CERVIX AND UTER 09/22/2017 LOUISA BONILLA Ot E03.9 HYPOTHYROIDISM, UNSPECIFIED 09/22/2017 LOUISA BONILLA Ot E11.9 TYPE 2 DIABETES MELLITUS WITHOUT COMPLIC 09/22/2017 LOUISA BONLILA Ot E78.00 PURE HYPERCHOLESTEROLEMIA, UNSPECIFIED 09/22/2017 LOUISA BONILLA Ot F32.9 MAJOR DEPRESSIVE DISORDER, SINGLE EPISOD 09/22/2017 LOUISA BONILLA Ot F41.9 ANXIETY DISORDER, UNSPECIFIED 09/22/2017 LOUISA BONILLA Ot G40.909 EPILEPSY, UNSP, NOT INTRACTABLE, WITHOUT 09/22/2017 LOUISA BONILLA Ot G43.909 MIGRAINE, UNSP, NOT INTRACTABLE, WITHOUT 09/22/2017 LOUISA BONILLA Ot G89.29 OTHER CHRONIC PAIN 09/22/2017 LOUISA BONILLA Ot I10 ESSENTIAL (PRIMARY) HYPERTENSION 09/22/2017 LOUISA BONILLA Ot J45.909 UNSPECIFIED ASTHMA, UNCOMPLICATED 09/22/2017 LOUISA BONILLA Ot R11.2 NAUSEA WITH VOMITING, UNSPECIFIED 09/22/2017 LOUISA BONILLA Ot R51 HEADACHE 09/22/2017 LOUISA BONILLA Ot Z79.4 PENITENTIARY (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 09/22/2017 LOUISA BONILLA Ot Z80.0 FAMILY HISTORY OF MALIGNANT NEOPLASM OF 09/22/2017 LOUISA BONILLA Ot Z82.49 FAMILY HX OF ISCHEM HEART DIS AND OTH DI 09/22/2017 LOUISA BONILLA Ot Z87.19 PERSONAL HISTORY OF OTHER DISEASES OF 09/22/2017 LOUISA BONILLA Ot Z87.820 PERSONAL HISTORY OF TRAUMATIC BRAIN INJU 09/22/2017 LOUISA BONILLA Ot Z90.710 ACQUIRED ABSENCE OF BOTH CERVIX AND UTER 10/01/2017 DEBBIECARA SPEARS MD Ot A08.4 VIRAL INTESTINAL INFECTION, UNSPECIFIED 10/01/2017 CARA LEWIS MD Ot E03.9 HYPOTHYROIDISM, UNSPECIFIED 10/01/2017 CARA LEWIS MD Ot E11.40 TYPE 2 DIABETES MELLITUS WITH DIABETIC N 10/01/2017 CARA LEWIS MD Ot E78.00 PURE HYPERCHOLESTEROLEMIA, UNSPECIFIED 10/01/2017 CARA LEWIS MD Ot F32.9 MAJOR DEPRESSIVE DISORDER, SINGLE EPISOD 10/01/2017 CARA LEWIS MD Ot F41.9 ANXIETY DISORDER, UNSPECIFIED 10/01/2017 CARA LEWIS MD Ot G43.909 MIGRAINE, UNSP, NOT INTRACTABLE, WITHOUT 10/01/2017 CARA LEWIS MD Ot I10 ESSENTIAL (PRIMARY) HYPERTENSION 10/01/2017 CARA LEWIS MD Ot J45.909 UNSPECIFIED ASTHMA, UNCOMPLICATED 10/01/2017 CARA LEWIS MD Ot R11.2 NAUSEA WITH VOMITING, UNSPECIFIED 10/01/2017 CARA LEWIS MD Ot Z79.4 CCU NURSE (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 10/01/2017 CARA LEWIS MD Ot Z80.0 FAMILY HISTORY OF MALIGNANT NEOPLASM OF 10/01/2017 CARA LEWIS MD Ot Z82.49 FAMILY HX OF ISCHEM HEART DIS AND OTH DI 10/01/2017 CARA LEWIS MD Ot Z87.19 PERSONAL HISTORY OF OTHER DISEASES OF TH 10/01/2017 CARA LEWIS MD Ot Z87.820 PERSONAL HISTORY OF TRAUMATIC BRAIN INJU 10/01/2017 CARA LEWIS MD Ot Z90.710 ACQUIRED ABSENCE OF BOTH CERVIX AND UTER 10/08/2017 LOUISA BONILLA Ot E03.9 HYPOTHYROIDISM, UNSPECIFIED 10/08/2017 LOUISA BONILLA Ot E11.40 TYPE 2 DIABETES MELLITUS WITH DIABETIC N 10/08/2017 LOUISA BONILLA Ot E78.00 PURE HYPERCHOLESTEROLEMIA, UNSPECIFIED 10/08/2017 LOUISA BONILLA Ot F32.9 MAJOR DEPRESSIVE DISORDER, SINGLE EPISOD 10/08/2017 LOUISA BONILLA Ot F41.9 ANXIETY DISORDER, UNSPECIFIED 10/08/2017 LOUISA BONILLA Ot G40.909 EPILEPSY, UNSP, NOT INTRACTABLE, WITHOUT 10/08/2017 LOUISA BONILLA Ot G43.709 CHRONIC MIGRAINE W/O AURA, NOT INTRACTAB 10/08/2017 LOUISA BONILLA Ot H92.01 OTALGIA, RIGHT EAR 10/08/2017 LOUISA BONILLA Ot I10 ESSENTIAL (PRIMARY) HYPERTENSION 10/08/2017 LOUISA BONILLA Ot J45.909 UNSPECIFIED ASTHMA, UNCOMPLICATED 10/08/2017 LOUISA BONILLA Ot S01.331A PUNCTURE WOUND W/O FOREIGN BODY OF RIGHT 10/08/2017 LOUISA BONILLA Ot S01.332A PUNCTURE WOUND WITHOUT FOREIGN BODY OF L 10/08/2017 LOUISA BONILLA Ot Z79.4 PENITENTIARY (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 10/08/2017 LOUISA BONILLA Ot Z80.0 FAMILY HISTORY OF MALIGNANT NEOPLASM OF 10/08/2017 LOUISA BONILLA Ot Z82.49 FAMILY HX OF ISCHEM HEART DIS AND OTH DI 10/08/2017 LOUISA BONILLA Ot Z87.19 PERSONAL HISTORY OF OTHER DISEASES OF TH 10/08/2017 LOUISA BONILLA Ot Z87.820 PERSONAL HISTORY OF TRAUMATIC BRAIN INJU 10/08/2017 LOUISA BONILLA Ot Z90.710 ACQUIRED ABSENCE OF BOTH CERVIX AND UTER 10/10/2017 LOUISA BONILLA Ot E03.9 HYPOTHYROIDISM, UNSPECIFIED 10/10/2017 LOUISA BONILLA Ot E11.40 TYPE 2 DIABETES MELLITUS WITH DIABETIC N 10/10/2017 LOUISA BONILLA Ot E78.00 PURE HYPERCHOLESTEROLEMIA, UNSPECIFIED 10/10/2017 LOUISA BONILLA Ot F32.9 MAJOR DEPRESSIVE DISORDER, SINGLE EPISOD 10/10/2017 LOUISA BONILLA Ot F41.9 ANXIETY DISORDER, UNSPECIFIED 10/10/2017 LOUISA BONILLA Ot G40.909 EPILEPSY, UNSP, NOT INTRACTABLE, WITHOUT 10/10/2017 LOUISA BONILLA Ot G43.709 CHRONIC MIGRAINE W/O AURA, NOT INTRACTAB 10/10/2017 LOUISA BONILLA Ot H92.01 OTALGIA, RIGHT EAR 10/10/2017 LOUISA BONILLA Ot I10 ESSENTIAL (PRIMARY) HYPERTENSION 10/10/2017 LOUISA BONILLA Ot J45.909 UNSPECIFIED ASTHMA, UNCOMPLICATED 10/10/2017 LOUISA BONILLA Ot S01.331A PUNCTURE WOUND W/O FOREIGN BODY OF RIGHT 10/10/2017 LOUISA BONILLA Ot S01.332A PUNCTURE WOUND WITHOUT FOREIGN BODY OF L 10/10/2017 LOUISA BONILLA Ot Z79.4 CCU NURSE (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 10/10/2017 LOUISA BONILLA Ot Z80.0 FAMILY HISTORY OF MALIGNANT NEOPLASM OF 10/10/2017 LOUISA BONILLA Ot Z82.49 FAMILY HX OF ISCHEM HEART DIS AND OTH DI 10/10/2017 LOUISA BONILLA Ot Z87.19 PERSONAL HISTORY OF OTHER DISEASES OF TH 10/10/2017 LOUISA BONILLA Ot Z87.820 PERSONAL HISTORY OF TRAUMATIC BRAIN INJU 10/10/2017 LOUISA BONILLA Ot Z90.710 ACQUIRED ABSENCE OF BOTH CERVIX AND UTER 10/11/2017 THOMAS HERNANDEZ MD, Ot E03.9 HYPOTHYROIDISM, UNSPECIFIED 10/11/2017 THOMAS HERNANDEZ MD, Ot E11.40 TYPE 2 DIABETES MELLITUS WITH DIABETIC N 10/11/2017 THOMAS HERNANDEZ MD, Ot E78.00 PURE HYPERCHOLESTEROLEMIA, UNSPECIFIED 10/11/2017 THOMAS HERNANDEZ MD, Ot F32.9 MAJOR DEPRESSIVE DISORDER, SINGLE EPISOD 10/11/2017 THOMAS HERNANDEZ MD, Ot F41.9 ANXIETY DISORDER, UNSPECIFIED 10/11/2017 THOMAS HERNANDEZ MD Ot G40.909 EPILEPSY, UNSP, NOT INTRACTABLE, WITHOUT 10/11/2017 THOMAS HERNANDEZ MD, Ot G43.909 MIGRAINE, UNSP, NOT INTRACTABLE, WITHOUT 10/11/2017 THOMAS HERNANDEZ MD, Ot I10 ESSENTIAL (PRIMARY) HYPERTENSION 10/11/2017 THOMAS HERNANDEZ MD, Ot J45.909 UNSPECIFIED ASTHMA, UNCOMPLICATED 10/11/2017 THOMAS HERNANDEZ MD, Ot Z79.4 PENITENTIARY (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 10/11/2017 DAVID MD, THOMAS D Ot Z80.0 FAMILY HISTORY OF MALIGNANT NEOPLASM OF 10/11/2017 THOMAS HERNANDEZ MD Ot Z82.49 FAMILY HX OF ISCHEM HEART DIS AND OTH DI 10/11/2017 THOMAS HERNANDEZ MD Ot Z87.19 PERSONAL HISTORY OF OTHER DISEASES OF 10/11/2017 THOMAS HERNANDEZ MD Ot Z87.440 PERSONAL HISTORY OF URINARY (TRACT) INFE 10/11/2017 THOMAS HERNANDEZ MD Ot Z87.820 PERSONAL HISTORY OF TRAUMATIC BRAIN INJU 10/11/2017 THOMAS HERNANDEZ MD Ot Z90.710 ACQUIRED ABSENCE OF BOTH CERVIX AND UTER 11/02/2017 CARA LEWIS MD Ot A08.4 VIRAL INTESTINAL INFECTION, UNSPECIFIED 11/02/2017 CARA LEWIS MD Ot E03.9 HYPOTHYROIDISM, UNSPECIFIED 11/02/2017 CAAR LEWIS MD Ot E11.40 TYPE 2 DIABETES MELLITUS WITH DIABETIC N 11/02/2017 CARA LEWIS MD Ot E78.00 PURE HYPERCHOLESTEROLEMIA, UNSPECIFIED 11/02/2017 CARA LEWIS MD Ot F32.9 MAJOR DEPRESSIVE DISORDER, SINGLE EPISOD 11/02/2017 CARA LEWIS MD Ot F41.9 ANXIETY DISORDER, UNSPECIFIED 11/02/2017 CARA LEWIS MD Ot G40.909 EPILEPSY, UNSP, NOT INTRACTABLE, WITHOUT 11/02/2017 CARA LEWIS MD Ot G43.909 MIGRAINE, UNSP, NOT INTRACTABLE, WITHOUT 11/02/2017 CARA LEWIS MD Ot I10 ESSENTIAL (PRIMARY) HYPERTENSION 11/02/2017 CARA LEWIS MD Ot J45.909 UNSPECIFIED ASTHMA, UNCOMPLICATED 11/02/2017 CARA LEWIS MD Ot R11.2 NAUSEA WITH VOMITING, UNSPECIFIED 11/02/2017 CARA LEWIS MD Ot Z79.4 PENITENTIARY (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 11/02/2017 CARA LEWIS MD Ot Z80.0 FAMILY HISTORY OF MALIGNANT NEOPLASM OF 11/02/2017 CARA LEWIS MD Ot Z82.49 FAMILY HX OF ISCHEM HEART DIS AND OTH DI 11/02/2017 CARA LEWIS MD Ot Z87.19 PERSONAL HISTORY OF OTHER DISEASES OF 11/02/2017 CARA LEWIS MD Ot Z87.440 PERSONAL HISTORY OF URINARY (TRACT) INFE 11/02/2017 CARA LEWIS MD Ot Z87.820 PERSONAL HISTORY OF TRAUMATIC BRAIN INJU 11/02/2017 CARA LEWIS MD Ot Z90.710 ACQUIRED ABSENCE OF BOTH CERVIX AND UTER 11/02/2017 CARA LEWIS MD Ot Z96.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, BILATE 11/05/2017 CARA LEWIS MD Ot A08.4 VIRAL INTESTINAL INFECTION, UNSPECIFIED 11/05/2017 CARA LEWIS MD Ot E03.9 HYPOTHYROIDISM, UNSPECIFIED 11/05/2017 CARA LEWIS MD Ot E11.40 TYPE 2 DIABETES MELLITUS WITH DIABETIC N 11/05/2017 CARA LEWIS MD Ot E78.00 PURE HYPERCHOLESTEROLEMIA, UNSPECIFIED 11/05/2017 CARA LEWIS MD Ot F32.9 MAJOR DEPRESSIVE DISORDER, SINGLE EPISOD 11/05/2017 CARA LEWIS MD Ot F41.9 ANXIETY DISORDER, UNSPECIFIED 11/05/2017 CARA LEWIS MD Ot G40.909 EPILEPSY, UNSP, NOT INTRACTABLE, WITHOUT 11/05/2017 CARA LEWIS MD Ot G43.909 MIGRAINE, UNSP, NOT INTRACTABLE, WITHOUT 11/05/2017 CARA LEWIS MD Ot I10 ESSENTIAL (PRIMARY) HYPERTENSION 11/05/2017 CARA LEWIS MD Ot J45.909 UNSPECIFIED ASTHMA, UNCOMPLICATED 11/05/2017 CARA LEWIS MD Ot R11.2 NAUSEA WITH VOMITING, UNSPECIFIED 11/05/2017 CARA LEWIS MD Ot Z79.4 CCU NURSE (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 11/05/2017 CARA LEWIS MD Ot Z80.0 FAMILY HISTORY OF MALIGNANT NEOPLASM OF 11/05/2017 CARA LEWIS MD Ot Z82.49 FAMILY HX OF ISCHEM HEART DIS AND OTH DI 11/05/2017 CARA LEWIS MD Ot Z87.19 PERSONAL HISTORY OF OTHER DISEASES OF TH 11/05/2017 CARA LEWIS MD Ot Z87.440 PERSONAL HISTORY OF URINARY (TRACT) INFE 11/05/2017 CARA LEWIS MD Ot Z87.820 PERSONAL HISTORY OF TRAUMATIC BRAIN INJU 11/05/2017 CARA LEWIS MD Ot Z90.710 ACQUIRED ABSENCE OF BOTH CERVIX AND UTER 11/05/2017 CARA LEWIS MD Ot Z96.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, BILATE 11/08/2017 CARA LEWIS MD Ot A08.4 VIRAL INTESTINAL INFECTION, UNSPECIFIED 11/08/2017 CARA LEWIS MD Ot E03.9 HYPOTHYROIDISM, UNSPECIFIED 11/08/2017 CARA LEIWS MD Ot E11.40 TYPE 2 DIABETES MELLITUS WITH DIABETIC N 11/08/2017 CARA LEWIS MD Ot E78.00 PURE HYPERCHOLESTEROLEMIA, UNSPECIFIED 11/08/2017 CARA LEWIS MD Ot F32.9 MAJOR DEPRESSIVE DISORDER, SINGLE EPISOD 11/08/2017 CARA LEWIS MD Ot F41.9 ANXIETY DISORDER, UNSPECIFIED 11/08/2017 CARA LEWIS MD Ot G43.909 MIGRAINE, UNSP, NOT INTRACTABLE, WITHOUT 11/08/2017 CARA LEWIS MD Ot I10 ESSENTIAL (PRIMARY) HYPERTENSION 11/08/2017 CARA LEWIS MD Ot J45.909 UNSPECIFIED ASTHMA, UNCOMPLICATED 11/08/2017 CARA LEWIS MD Ot R11.2 NAUSEA WITH VOMITING, UNSPECIFIED 11/08/2017 CARA LEWIS MD Ot Z79.4 CCU NURSE (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 11/08/2017 CARA LEWIS MD Ot Z80.0 FAMILY HISTORY OF MALIGNANT NEOPLASM OF 11/08/2017 CARA LEWIS MD Ot Z82.49 FAMILY HX OF ISCHEM HEART DIS AND OTH DI 11/08/2017 CARA LEWIS MD Ot Z87.19 PERSONAL HISTORY OF OTHER DISEASES OF TH 11/08/2017 CARA LEWIS MD Ot Z87.820 PERSONAL HISTORY OF TRAUMATIC BRAIN INJU 11/08/2017 CARA LEWIS MD Ot Z90.710 ACQUIRED ABSENCE OF BOTH CERVIX AND UTER 11/21/2017 CARA LEWIS MD Ot A08.4 VIRAL INTESTINAL INFECTION, UNSPECIFIED 11/21/2017 CARA LEWIS MD Ot E03.9 HYPOTHYROIDISM, UNSPECIFIED 11/21/2017 CARA LEWIS MD Ot E11.40 TYPE 2 DIABETES MELLITUS WITH DIABETIC N 11/21/2017 CARA ELWIS MD Ot E78.00 PURE HYPERCHOLESTEROLEMIA, UNSPECIFIED 11/21/2017 CARA LEWIS MD Ot F32.9 MAJOR DEPRESSIVE DISORDER, SINGLE EPISOD 11/21/2017 CARA LEWIS MD Ot F41.9 ANXIETY DISORDER, UNSPECIFIED 11/21/2017 CARA LEWIS MD Ot G40.909 EPILEPSY, UNSP, NOT INTRACTABLE, WITHOUT 11/21/2017 CARA LEWIS MD Ot G43.909 MIGRAINE, UNSP, NOT INTRACTABLE, WITHOUT 11/21/2017 CARA LEWIS MD Ot I10 ESSENTIAL (PRIMARY) HYPERTENSION 11/21/2017 CARA LEWIS MD Ot J45.909 UNSPECIFIED ASTHMA, UNCOMPLICATED 11/21/2017 CARA LEWIS MD Ot R11.2 NAUSEA WITH VOMITING, UNSPECIFIED 11/21/2017 CARA LEWIS MD Ot Z79.4 CCU NURSE (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 11/21/2017 CARA LEWIS MD Ot Z80.0 FAMILY HISTORY OF MALIGNANT NEOPLASM OF 11/21/2017 CARA LEWIS MD Ot Z82.49 FAMILY HX OF ISCHEM HEART DIS AND OTH DI 11/21/2017 CARA LEWIS MD Ot Z87.19 PERSONAL HISTORY OF OTHER DISEASES OF TH 11/21/2017 CARA LEWIS MD Ot Z87.440 PERSONAL HISTORY OF URINARY (TRACT) INFE 11/21/2017 CARA LEWIS MD Ot Z87.820 PERSONAL HISTORY OF TRAUMATIC BRAIN INJU 11/21/2017 CARA LEWIS MD Ot Z90.710 ACQUIRED ABSENCE OF BOTH CERVIX AND UTER 11/21/2017 CARA LEWIS MD Ot Z96.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, BILATE 12/04/2017 Ot 346.90 MIGRAINE UNSPECIFIED W/O INTRACT MGRN W/ 12/04/2017 Ot 780.4 DIZZINESS AND GIDDINESS 12/04/2017 Ot 781.2 ABNORMALITY OF GAIT 12/04/2017 AMANDA POWERS MD Ot 599.70 HEMATURIA, UNSPECIFIED 12/04/2017 AMANDA POWERS MD Ot V81.5 SCREEN FOR NEPHROPATHY 12/04/2017 MARQUITA FLOREZ DO Ot 719.43 JOINT PAIN-FOREARM 12/04/2017 RUBIO MEZA DO Ot V58.81 FIT/ADJ VASCULAR CATHETER 12/04/2017 JF KHALIL MD Ot E03.9 HYPOTHYROIDISM, UNSPECIFIED 12/04/2017 JF KHALIL MD Ot E10.9 TYPE 1 DIABETES MELLITUS WITHOUT COMPLIC 12/04/2017 JF KHALIL MD Ot K21.9 GASTRO-ESOPHAGEAL REFLUX DISEASE WITHOUT 12/04/2017 JF KHALIL MD Ot K29.70 GASTRITIS, UNSPECIFIED, WITHOUT BLEEDING 12/04/2017 Ot Z12.31 ENCNTR SCREEN MAMMOGRAM FOR MALIGNANT NE 12/04/2017 RUBIO MEZA DO Ot 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 12/04/2017 RUBIO MEZA DO Ot R53.83 OTHER FATIGUE 12/04/2017 RUBIO MEZA DO Ot S09.90XA UNSPECIFIED INJURY OF HEAD, INITIAL ENCO 12/04/2017 RUBIO MEZA DO Ot X58.XXXA EXPOSURE TO OTHER SPECIFIED FACTORS, INI 12/04/2017 CARA LEWIS MD Ot A08.4 VIRAL INTESTINAL INFECTION, UNSPECIFIED 12/04/2017 CARA LEWIS MD Ot E03.9 HYPOTHYROIDISM, UNSPECIFIED 12/04/2017 CARA LEWIS MD Ot E11.40 TYPE 2 DIABETES MELLITUS WITH DIABETIC N 12/04/2017 CARA LEWIS MD Ot E78.00 PURE HYPERCHOLESTEROLEMIA, UNSPECIFIED 12/04/2017 CARA LEWIS MD Ot F32.9 MAJOR DEPRESSIVE DISORDER, SINGLE EPISOD 12/04/2017 CARA LEWIS MD Ot F41.9 ANXIETY DISORDER, UNSPECIFIED 12/04/2017 CARA LEWIS MD Ot G43.909 MIGRAINE, UNSP, NOT INTRACTABLE, WITHOUT 12/04/2017 CARA LEWIS MD Ot I10 ESSENTIAL (PRIMARY) HYPERTENSION 12/04/2017 CARA LEWIS MD Ot J45.909 UNSPECIFIED ASTHMA, UNCOMPLICATED 12/04/2017 CARA LEWIS MD Ot R11.2 NAUSEA WITH VOMITING, UNSPECIFIED 12/04/2017 CARA LEWIS MD Ot Z79.4 PENITENTIARY (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 12/04/2017 CARA LEWIS MD Ot Z80.0 FAMILY HISTORY OF MALIGNANT NEOPLASM OF 12/04/2017 CARA LEWIS MD, Ot Z82.49 FAMILY HX OF ISCHEM HEART DIS AND OTH DI 12/04/2017 CARA LEWIS MD, Ot Z87.19 PERSONAL HISTORY OF OTHER DISEASES OF TH 12/04/2017 CARA LEWIS MD, Ot Z87.820 PERSONAL HISTORY OF TRAUMATIC BRAIN INJU 12/04/2017 CARA LEWIS MD, Ot Z90.710 ACQUIRED ABSENCE OF BOTH CERVIX AND UTER 12/04/2017 RUBIO MEZA DO, Ot Z45.2 ENCOUNTER FOR ADJUSTMENT AND MANAGEMENT Procedures Code Description Performed By Performed On [...] FOR INFLUENZA A AND B ANTIGENS BY [facility] Complete blood count (CBC) with automated white blood cell (WBC) differential - 01/16/17 14:27 Blood leukocytes automated count (number/volume) 8.9 10*3/uL 4.3-11.0 Blood erythrocytes automated count (number/volume) 4.37 10*6/uL 4.35-5.85 Venous blood hemoglobin measurement (mass/volume) 11.7 [...] Automated blood platelet mean volume measurement 10.0 [foz_us] 7.4-10.4 Automated blood neutrophils/100 leukocytes 53 % [...] Serum or plasma sodium measurement (moles/volume) 137 mmol/L 135-145 Serum or plasma potassium measurement (moles/volume) 3.5 mmol/L 3.6-5.0 Serum or plasma chloride measurement (moles/volume) 103 mmol/L 98-107 Carbon dioxide 21 mmol/L 21-32 Serum or plasma anion gap determination (moles/volume) 13 mmol/L 5-14 Serum or plasma urea nitrogen measurement (mass/volume) 12 mg/dL 7-18 Serum or plasma creatinine measurement (mass/volume) 0.89 mg/dL 0.60-1.30 Serum or plasma urea nitrogen/creatinine mass [...] measurement by glucometer (mass/volume) 307 mg/dL 70-110 Complete blood count (CBC) with automated white blood cell (WBC) differential - 06/08/17 08:59 Blood leukocytes automated count (number/volume) 10.2 10*3/uL 4.3-11.0 Blood erythrocytes automated count (number/volume) 4.38 10*6/uL 4.35-5.85 Venous blood hemoglobin measurement (mass/volume) 11.3 g/dL 11.5-16.0 Blood hematocrit (volume fraction) 35 % 35-52 Automated erythrocyte mean corpuscular volume 80 [foz_us] 80-99 Automated erythrocyte mean corpuscular hemoglobin (mass per erythrocyte) 26 pg 25-34 Automated erythrocyte mean corpuscular hemoglobin concentration measurement ( mass/volume) 32 g/dL 32-36 Automated erythrocyte distribution width ratio 15.4 % 10.0-14.5 Automated blood platelet count (count/volume) 189 10*3/uL 130-400 Automated blood platelet mean volume measurement 11.0 [foz_us] 7.4-10.4 Automated blood neutrophils/100 leukocytes 56 % 42-75 Automated blood lymphocytes/100 leukocytes 22 % 12-44 Blood monocytes/100 leukocytes 5 % 0-12 Automated blood eosinophils/100 leukocytes 17 % 0-10 Automated blood basophils/100 leukocytes 1 % 0-10 Blood neutrophils automated count (number/volume) 5.7 10*3 1.8-7.8 Blood lymphocytes automated count (number/volume) 2.2 10*3 1.0-4.0 Blood monocytes automated count (number/volume) 0.5 10*3 0.0-1.0 Automated eosinophil count 1.7 10*3/uL 0.0-0.3 Automated blood basophil count (count/volume) 0.1 10*3/uL 0.0-0.1 Comprehensive metabolic panel - 06/08/17 08:59 Serum or plasma sodium measurement (moles/volume) 135 mmol/L 135-145 Serum or plasma potassium measurement (moles/volume) 4.1 mmol/L 3.6-5.0 Serum or plasma chloride measurement (moles/volume) 103 mmol/L 98-107 Carbon dioxide 18 mmol/L 21-32 Serum or plasma anion gap determination (moles/volume) 14 mmol/L 5-14 Serum or plasma urea nitrogen measurement (mass/volume) 12 mg/dL 7-18 Serum or plasma creatinine measurement (mass/volume) 1.07 mg/dL 0.60-1.30 Serum or plasma urea nitrogen/creatinine mass ratio 11 NRG Serum or plasma creatinine measurement with calculation of estimated glomerular filtration rate 53 NRG Serum or plasma glucose measurement (mass/volume) 285 mg/dL 70-105 Serum or plasma calcium measurement (mass/volume) 8.3 mg/dL 8.5-10.1 Serum or plasma total bilirubin measurement (mass/volume) 0.4 mg/dL 0.1-1.0 Serum or plasma alkaline phosphatase measurement (enzymatic activity/volume) 73 U/L 40-136 Serum or plasma aspartate aminotransferase measurement (enzymatic activity/ volume) 20 U/L 5-34 Serum or plasma alanine aminotransferase measurement (enzymatic activity/volume ) 15 U/L 0-55 Serum or plasma protein measurement (mass/volume) 6.4 g/dL 6.4-8.2 Serum or plasma albumin measurement (mass/volume) 3.7 g/dL 3.2-4.5 Lipase - 06/08/17 08:59 Lipase 11 U/L 8-78 Blood manual differential performed detection - 06/08/17 08:59 Blood monocytes/100 leukocytes 3 % NRG Manual blood segmented neutrophils/100 leukocytes 52 % NRG Blood band neutrophils/100 leukocytes 0 % NRG Manual blood lymphocytes/100 leukocytes 27 % NRG Manual eosinophils/100 leukocytes in nose 17 % NRG Manual blood basophils/100 leukocytes 1 % NRG Blood anisocytosis detection by light microscopy SLIGHT NRG Capillary blood glucose measurement by glucometer (mass/volume) - 06/08/17 09: 11 Capillary blood glucose measurement by glucometer (mass/volume) 275 mg/dL 70-110 Complete blood count (CBC) with automated white blood cell (WBC) differential - 07/22/17 00:15 Blood leukocytes automated count (number/volume) 11.3 10*3/uL 4.3-11.0 Blood erythrocytes automated count (number/volume) 3.83 10*6/uL 4.35-5.85 Venous blood hemoglobin measurement (mass/volume) 10.2 g/dL 11.5-16.0 Blood hematocrit (volume fraction) 30 % 35-52 Automated erythrocyte mean corpuscular volume 79 [foz_us] 80-99 Automated erythrocyte mean corpuscular hemoglobin (mass per erythrocyte) 27 pg 25-34 Automated erythrocyte mean corpuscular hemoglobin concentration measurement ( mass/volume) 34 g/dL 32-36 Automated erythrocyte distribution width ratio 16.0 % 10.0-14.5 Automated blood platelet count (count/volume) 251 10*3/uL 130-400 Automated blood platelet mean volume measurement 11.0 [foz_us] 7.4-10.4 Automated blood neutrophils/100 leukocytes 29 % 42-75 Automated blood lymphocytes/100 leukocytes 61 % 12-44 Blood monocytes/100 leukocytes 7 % 0-12 Automated blood eosinophils/100 leukocytes 3 % 0-10 Automated blood basophils/100 leukocytes 1 % 0-10 Blood neutrophils automated count (number/volume) 3.2 10*3 1.8-7.8 Blood lymphocytes automated count (number/volume) 6.9 10*3 1.0-4.0 Blood monocytes automated count (number/volume) 0.8 10*3 0.0-1.0 Automated eosinophil count 0.3 10*3/uL 0.0-0.3 Automated blood basophil count (count/volume) 0.1 10*3/uL 0.0-0.1 Comprehensive metabolic panel - 07/22/17 00:15 Serum or plasma sodium measurement (moles/volume) 142 mmol/L 135-145 Serum or plasma potassium measurement (moles/volume) 3.0 mmol/L 3.6-5.0 Serum or plasma chloride measurement (moles/volume) 106 mmol/L 98-107 Carbon dioxide 23 mmol/L 21-32 Serum or plasma anion gap determination (moles/volume) 13 mmol/L 5-14 Serum or plasma urea nitrogen measurement (mass/volume) 7 mg/dL 7-18 Serum or plasma creatinine measurement (mass/volume) 1.01 mg/dL 0.60-1.30 Serum or plasma urea nitrogen/creatinine mass ratio 7 NRG Serum or plasma creatinine measurement with calculation of estimated glomerular filtration rate 57 NRG Serum or plasma glucose measurement (mass/volume) 61 mg/dL 70-105 Serum or plasma calcium measurement (mass/volume) 9.0 mg/dL 8.5-10.1 Serum or plasma total bilirubin measurement (mass/volume) 0.3 mg/dL 0.1-1.0 Serum or plasma alkaline phosphatase measurement (enzymatic activity/volume) 156 U/L 40-136 Serum or plasma aspartate aminotransferase measurement (enzymatic activity/ volume) 27 U/L 5-34 Serum or plasma alanine aminotransferase measurement (enzymatic activity/volume ) 103 U/L 0-55 Serum or plasma protein measurement (mass/volume) 6.5 g/dL 6.4-8.2 Serum or plasma albumin measurement (mass/volume) 3.8 g/dL 3.2-4.5 Magnesium - 07/22/17 00:15 Magnesium 2.3 mg/dL 1.8-2.4 Capillary blood glucose measurement by glucometer (mass/volume) - 07/22/17 00: 21 Capillary blood glucose measurement by glucometer (mass/volume) 63 mg/dL 70-110 Complete blood count (CBC) with automated white blood cell (WBC) differential - 09/03/17 12:34 Blood leukocytes automated count (number/volume) 8.5 10*3/uL 4.3-11.0 Blood erythrocytes automated count (number/volume) 4.30 10*6/uL 4.35-5.85 Venous blood hemoglobin measurement (mass/volume) 11.5 g/dL 11.5-16.0 Blood hematocrit (volume fraction) 35 % 35-52 Automated erythrocyte mean corpuscular volume 81 [foz_us] 80-99 Automated erythrocyte mean corpuscular hemoglobin (mass per erythrocyte) 27 pg 25-34 Automated erythrocyte mean corpuscular hemoglobin concentration measurement ( mass/volume) 33 g/dL 32-36 Automated erythrocyte distribution width ratio 16.9 % 10.0-14.5 Automated blood platelet count (count/volume) 292 10*3/uL 130-400 Automated blood platelet mean volume measurement 10.7 [foz_us] 7.4-10.4 Automated blood neutrophils/100 leukocytes 56 % 42-75 Automated blood lymphocytes/100 leukocytes 33 % 12-44 Blood monocytes/100 leukocytes 6 % 0-12 Automated blood eosinophils/100 leukocytes 4 % 0-10 Automated blood basophils/100 leukocytes 1 % 0-10 Blood neutrophils automated count (number/volume) 4.7 10*3 1.8-7.8 Blood lymphocytes automated count (number/volume) 2.9 10*3 1.0-4.0 Blood monocytes automated count (number/volume) 0.5 10*3 0.0-1.0 Automated eosinophil count 0.4 10*3/uL 0.0-0.3 Automated blood basophil count (count/volume) 0.1 10*3/uL 0.0-0.1 Comprehensive metabolic panel - 09/03/17 12:34 Serum or plasma sodium measurement (moles/volume) 138 mmol/L 135-145 Serum or plasma potassium measurement (moles/volume) 3.2 mmol/L 3.6-5.0 Serum or plasma chloride measurement (moles/volume) 100 mmol/L 98-107 Carbon dioxide 25 mmol/L 21-32 Serum or plasma anion gap determination (moles/volume) 13 mmol/L 5-14 Serum or plasma urea nitrogen measurement (mass/volume) 12 mg/dL 7-18 Serum or plasma creatinine measurement (mass/volume) 0.96 mg/dL 0.60-1.30 Serum or plasma urea nitrogen/creatinine mass ratio 13 NRG Serum or plasma creatinine measurement with calculation of estimated glomerular filtration rate 60 NRG Serum or plasma glucose measurement (mass/volume) 121 mg/dL 70-105 Serum or plasma calcium measurement (mass/volume) 8.9 mg/dL 8.5-10.1 Serum or plasma total bilirubin measurement (mass/volume) 0.4 mg/dL 0.1-1.0 Serum or plasma alkaline phosphatase measurement (enzymatic activity/volume) 86 U/L 40-136 Serum or plasma aspartate aminotransferase measurement (enzymatic activity/ volume) 19 U/L 5-34 Serum or plasma alanine aminotransferase measurement (enzymatic activity/volume ) 12 U/L 0-55 Serum or plasma protein measurement (mass/volume) 6.7 g/dL 6.4-8.2 Serum or plasma albumin measurement (mass/volume) 3.8 g/dL 3.2-4.5 Lipase - 09/03/17 12:34 Lipase 15 U/L 8-78 Serum or plasma thyroxine (T4) free measurement (mass/volume) - 09/03/17 12:38 Serum or plasma thyroxine (T4) free measurement (mass/volume) 0.95 ng/dL 0.70-1.48 Serum or plasma thyrotropin measurement by detection limit <=0.05 miu/l (units/ volume) - 09/03/17 12:38 Serum or plasma thyrotropin measurement by detection limit <=0.05 miu/l (units/ volume) 9.57 u[iU]/mL 0.35-4.94 Serum or plasma carbamazepine measurement (mass/volume) - 09/03/17 12:38 Serum or plasma carbamazepine measurement (mass/volume) 4.7 ug/mL 4.0-12.0 Complete urinalysis with reflex to culture - 09/03/17 15:55 Urine color determination YELLOW NRG Urine clarity determination SLIGHTLY CLOUDY NRG Urine pH measurement by test strip 8 5-9 Specific gravity of urine by test strip 1.010 1.016- 1.022 Urine protein assay by test strip, semi-quantitative 2+ NEGATIVE Urine glucose detection by automated test strip NEGATIVE NEGATIVE Erythrocytes detection in urine sediment by light microscopy NEGATIVE NEGATIVE Urine ketones detection by automated test strip 4+ NEGATIVE Urine nitrite detection by test strip NEGATIVE NEGATIVE Urine total bilirubin detection by test strip NEGATIVE NEGATIVE Urine urobilinogen measurement by automated test strip (mass/volume) NORMAL NORMAL Urine leukocyte esterase detection by dipstick 1+ NEGATIVE Automated urine sediment erythrocyte count by microscopy (number/high power field) NONE NRG Automated urine sediment leukocyte count by microscopy (number/high power field ) RARE NRG Bacteria detection in urine sediment by light microscopy MODERATE NRG Squamous epithelial cells detection in urine sediment by light microscopy 25-50 NRG Crystals detection in urine sediment by light microscopy NONE NRG Casts detection in urine sediment by light microscopy NONE NRG Mucus detection in urine sediment by light microscopy NEGATIVE NRG Complete urinalysis with reflex to culture NO NRG Complete blood count (CBC) with automated white blood cell (WBC) differential - 09/04/17 13:15 Blood leukocytes automated count (number/volume) 7.4 10*3/uL 4.3-11.0 Blood erythrocytes automated count (number/volume) 4.00 10*6/uL 4.35-5.85 Venous blood hemoglobin measurement (mass/volume) 10.5 g/dL 11.5-16.0 Blood hematocrit (volume fraction) 33 % 35-52 Automated erythrocyte mean corpuscular volume 82 [foz_us] 80-99 Automated erythrocyte mean corpuscular hemoglobin (mass per erythrocyte) 26 pg 25-34 Automated erythrocyte mean corpuscular hemoglobin concentration measurement ( mass/volume) 32 g/dL 32-36 Automated erythrocyte distribution width ratio 16.7 % 10.0-14.5 Automated blood platelet count (count/volume) 287 10*3/uL 130-400 Automated blood platelet mean volume measurement 10.7 [foz_us] 7.4-10.4 Automated blood neutrophils/100 leukocytes 59 % 42-75 Automated blood lymphocytes/100 leukocytes 30 % 12-44 Blood monocytes/100 leukocytes 5 % 0-12 Automated blood eosinophils/100 leukocytes 5 % 0-10 Automated blood basophils/100 leukocytes 1 % 0-10 Blood neutrophils automated count (number/volume) 4.3 10*3 1.8-7.8 Blood lymphocytes automated count (number/volume) 2.2 10*3 1.0-4.0 Blood monocytes automated count (number/volume) 0.4 10*3 0.0-1.0 Automated eosinophil count 0.4 10*3/uL 0.0-0.3 Automated blood basophil count (count/volume) 0.1 10*3/uL 0.0-0.1 Comprehensive metabolic panel - 09/04/17 13:15 Serum or plasma sodium measurement (moles/volume) 139 mmol/L 135-145 Serum or plasma potassium measurement (moles/volume) 3.1 mmol/L 3.6-5.0 Serum or plasma chloride measurement (moles/volume) 106 mmol/L 98-107 Carbon dioxide 22 mmol/L 21-32 Serum or plasma anion gap determination (moles/volume) 11 mmol/L 5-14 Serum or plasma urea nitrogen measurement (mass/volume) 12 mg/dL 7-18 Serum or plasma creatinine measurement (mass/volume) 0.86 mg/dL 0.60-1.30 Serum or plasma urea nitrogen/creatinine mass ratio 14 NRG Serum or plasma creatinine measurement with calculation of estimated glomerular filtration rate > NRG Serum or plasma glucose measurement (mass/volume) 126 mg/dL 70-105 Serum or plasma calcium measurement (mass/volume) 8.1 mg/dL 8.5-10.1 Serum or plasma total bilirubin measurement (mass/volume) 0.3 mg/dL 0.1-1.0 Serum or plasma alkaline phosphatase measurement (enzymatic activity/volume) 100 U/L 40-136 Serum or plasma aspartate aminotransferase measurement (enzymatic activity/ volume) 37 U/L 5-34 Serum or plasma alanine aminotransferase measurement (enzymatic activity/volume ) 26 U/L 0-55 Serum or plasma protein measurement (mass/volume) 6.1 g/dL 6.4-8.2 Serum or plasma albumin measurement (mass/volume) 3.4 g/dL 3.2-4.5 Serum or plasma carbamazepine measurement (mass/volume) - 09/04/17 13:15 Serum or plasma carbamazepine measurement (mass/volume) 3.3 ug/mL 4.0-12.0 Capillary blood glucose measurement by glucometer (mass/volume) - 09/04/17 16: 14 Capillary blood glucose measurement by glucometer (mass/volume) 78 mg/dL 70-110 Capillary blood glucose measurement by glucometer (mass/volume) - 09/04/17 23: 40 Capillary blood glucose measurement by glucometer (mass/volume) 166 mg/dL 70-110 Capillary blood glucose measurement by glucometer (mass/volume) - 09/05/17 01: 57 Capillary blood glucose measurement by glucometer (mass/volume) 175 mg/dL 70-110 Capillary blood glucose measurement by glucometer (mass/volume) - 09/05/17 05: 00 Capillary blood glucose measurement by glucometer (mass/volume) 200 mg/dL 70-110 Capillary blood glucose measurement by glucometer (mass/volume) - 09/05/17 10: 57 Capillary blood glucose measurement by glucometer (mass/volume) 174 mg/dL 70-110 Capillary blood glucose measurement by glucometer (mass/volume) - 09/22/17 21: 08 Capillary blood glucose measurement by glucometer (mass/volume) 234 mg/dL 70-110 Complete urinalysis with reflex to culture - 09/22/17 21:46 Urine color determination YELLOW NRG Urine clarity determination VERY CLOUDY NRG Urine pH measurement by test strip 7 5-9 Specific gravity of urine by test strip 1.010 1.016- 1.022 Urine protein assay by test strip, semi-quantitative 1+ NEGATIVE Urine glucose detection by automated test strip 4+ NEGATIVE Erythrocytes detection in urine sediment by light microscopy NEGATIVE NEGATIVE Urine ketones detection by automated test strip 3+ NEGATIVE Urine nitrite detection by test strip NEGATIVE NEGATIVE Urine total bilirubin detection by test strip NEGATIVE NEGATIVE Urine urobilinogen measurement by automated test strip (mass/volume) NORMAL NORMAL Urine leukocyte esterase detection by dipstick 1+ NEGATIVE Automated urine sediment erythrocyte count by microscopy (number/high power field) NONE NRG Automated urine sediment leukocyte count by microscopy (number/high power field ) [HPF] NRG Bacteria detection in urine sediment by light microscopy FEW NRG Squamous epithelial cells detection in urine sediment by light microscopy >50 NRG Crystals detection in urine sediment by light microscopy NONE NRG Casts detection in urine sediment by light microscopy NONE NRG Mucus detection in urine sediment by light microscopy NEGATIVE NRG Complete urinalysis with reflex to culture NO NRG Complete blood count (CBC) with automated white blood cell (WBC) differential - 10/11/17 19:15 Blood leukocytes automated count (number/volume) 8.8 10*3/uL 4.3-11.0 Blood erythrocytes automated count (number/volume) 3.87 10*6/uL 4.35-5.85 Venous blood hemoglobin measurement (mass/volume) 10.5 g/dL 11.5-16.0 Blood hematocrit (volume fraction) 32 % 35-52 Automated erythrocyte mean corpuscular volume 82 [foz_us] 80-99 Automated erythrocyte mean corpuscular hemoglobin (mass per erythrocyte) 27 pg 25-34 Automated erythrocyte mean corpuscular hemoglobin concentration measurement ( mass/volume) 33 g/dL 32-36 Automated erythrocyte distribution width ratio 16.3 % 10.0-14.5 Automated blood platelet count (count/volume) 280 10*3/uL 130-400 Automated blood platelet mean volume measurement 10.7 [foz_us] 7.4-10.4 Automated blood neutrophils/100 leukocytes 40 % 42-75 Automated blood lymphocytes/100 leukocytes 49 % 12-44 Blood monocytes/100 leukocytes 7 % 0-12 Automated blood eosinophils/100 leukocytes 4 % 0-10 Automated blood basophils/100 leukocytes 1 % 0-10 Blood neutrophils automated count (number/volume) 3.5 10*3 1.8-7.8 Blood lymphocytes automated count (number/volume) 4.3 10*3 1.0-4.0 Blood monocytes automated count (number/volume) 0.6 10*3 0.0-1.0 Automated eosinophil count 0.4 10*3/uL 0.0-0.3 Automated blood basophil count (count/volume) 0.1 10*3/uL 0.0-0.1 Comprehensive metabolic panel - 10/11/17 19:15 Serum or plasma sodium measurement (moles/volume) 139 mmol/L 135-145 Serum or plasma potassium measurement (moles/volume) 3.3 mmol/L 3.6-5.0 Serum or plasma chloride measurement (moles/volume) 104 mmol/L 98-107 Carbon dioxide 22 mmol/L 21-32 Serum or plasma anion gap determination (moles/volume) 13 mmol/L 5-14 Serum or plasma urea nitrogen measurement (mass/volume) 8 mg/dL 7-18 Serum or plasma creatinine measurement (mass/volume) 0.86 mg/dL 0.60-1.30 Serum or plasma urea nitrogen/creatinine mass ratio 9 NRG Serum or plasma creatinine measurement with calculation of estimated glomerular filtration rate > NRG Serum or plasma glucose measurement (mass/volume) 106 mg/dL 70-105 Serum or plasma calcium measurement (mass/volume) 8.8 mg/dL 8.5-10.1 Serum or plasma total bilirubin measurement (mass/volume) 0.2 mg/dL 0.1-1.0 Serum or plasma alkaline phosphatase measurement (enzymatic activity/volume) 89 U/L 40-136 Serum or plasma aspartate aminotransferase measurement (enzymatic activity/ volume) 12 U/L 5-34 Serum or plasma alanine aminotransferase measurement (enzymatic activity/volume ) 11 U/L 0-55 Serum or plasma protein measurement (mass/volume) 6.4 g/dL 6.4-8.2 Serum or plasma albumin measurement (mass/volume) 3.5 g/dL 3.2-4.5 Serum or plasma C reactive protein measurement (mass/volume) - 10/11/17 19:15 Serum or plasma C reactive protein measurement (mass/volume) 1.71 mg /dL 0.00-0.50 Complete urinalysis with reflex to culture - 10/11/17 19:35 Urine color determination YELLOW NRG Urine clarity determination VERY CLOUDY NRG Urine pH measurement by test strip 6 5-9 Specific gravity of urine by test strip 1.020 1.016- 1.022 Urine protein assay by test strip, semi-quantitative 2+ NEGATIVE Urine glucose detection by automated test strip NEGATIVE NEGATIVE Erythrocytes detection in urine sediment by light microscopy NEGATIVE NEGATIVE Urine ketones detection by automated test strip 4+ NEGATIVE Urine nitrite detection by test strip NEGATIVE NEGATIVE Urine total bilirubin detection by test strip NEGATIVE NEGATIVE Urine urobilinogen measurement by automated test strip (mass/volume) NORMAL NORMAL Urine leukocyte esterase detection by dipstick 3+ NEGATIVE Automated urine sediment erythrocyte count by microscopy (number/high power field) [HPF] NRG Automated urine sediment leukocyte count by microscopy (number/high power field ) [HPF] NRG Bacteria detection in urine sediment by light microscopy FEW NRG Squamous epithelial cells detection in urine sediment by light microscopy >50 NRG Crystals detection in urine sediment by light microscopy NONE NRG Casts detection in urine sediment by light microscopy NONE NRG Mucus detection in urine sediment by light microscopy LARGE NRG Complete urinalysis with reflex to culture NO NRG Encounters ACCT No. Visit Date/Time Discharge Status Pt. Type Provider Facility Loc./Unit Complaint [id number] 11/02/2017 17:46:00 11/02/2017 19:48:00 DIS Emergency DEBBIE LIAO, CARA [facility] N/V [id number] 10/11/2017 18:31:00 10/11/2017 22:25:00 DIS Emergency DAVID LIAO, THOMAS [facility] ER MIGRAINE,EAR PAIN [id number] 10/08/2017 12:15:00 10/08/2017 16:30:00 DIS Emergency LOIUSA BONILLA [facility] ER headache,vomiting,ear piercing infections [id number] 09/22/2017 18:32:00 09/22/2017 22:13:00 DIS Emergency LOUISA BONILLA [facility] ER N/V [id number] 09/04/2017 11:30:00 09/05/2017 11:50:00 DIS Inpatient YOLANDE LIAO, NEVAEH Victoria [facility] 4TH INTRACTABLE N/V,KETOSIS [id number] 09/03/2017 11:02:00 09/03/2017 16:26:00 DIS Emergency LOUISA BONILLA [facility] ER ABD PAIN/VOMITING MIGRAINE [id number] 08/19/2017 00:19:00 08/19/2017 23:59:59 CLS Preadmit RUBIO MEZA DO [facility] [id number] 05/30/2017 10:26:00 08/18/2017 00:01:00 DIS Outpatient RUBIO MEZA DO [facility] [id number] 07/21/2017 23:49:00 07/21/2017 23:59:59 CLS Emergency CARA LEWIS MD [facility] ER VOMITING HEADACHE [id number] 07/06/2017 08:00:00 07/06/2017 23:59:59 CLS Outpatient RUBIO MEZA DO [facility] RT SEIZURE DISORDER [id number] 06/08/2017 07:41:00 06/08/2017 10:53:00 DIS Emergency MARQUITA CAMPOS MD [facility] ER VOMITTING,ABD PAIN, HEADACHE [id number] 05/18/2017 17:44:00 05/18/2017 18:30:00 DIS Emergency BRENDA PARDO APRN [facility] ER HEADACHE [id number] 02/22/2017 06:45:00 02/22/2017 23:59:59 CLS Outpatient RUBIO MEZA DO [facility] CARD R53.83,E10.43 [id number] 01/16/2017 12:25:00 01/18/2017 11:47:00 DIS Inpatient NEVAEH LANIER MD [facility] 4TH N/V INSULIN REQUIRED DIABETES [id number] 01/25/2016 15:19:00 01/25/2016 19:23:00 DIS Emergency THOMAS HERNANDEZ MD [facility] ER MIGRAINE/STOMACH PAIN [id number] 12/21/2015 09:28:00 12/21/2015 23:59:59 CLS Outpatient JF KHALIL MD [facility] CARD INTRACTABLE NAUSEA/ VOMITING,GASTRITIS [id number] 11/26/2015 13:40:00 11/30/2015 16:40:00 DIS Outpatient SANDRA VALDEZ DO [facility] SDC PERSISTANT VOMITING HEMATEMESIS [id number] 10/26/2015 20:19:00 10/29/2015 08:38:00 DIS Inpatient RUBIO MEZA DO [facility] 4TH ABD PAIN,INTRACTABLE N/V [id number] 08/21/2015 13:57:00 08/22/2015 11:26:00 DIS Inpatient RUBIO MEZA DO [facility] SURGICAL INTRACTABLE HEADACHE N/V [id number] 07/26/2015 21:39:00 07/27/2015 02:16:00 DIS Emergency JF MALIK DO [facility] ER VOMITING BLOOD [id number] 07/03/2015 01:38:00 07/04/2015 19:15:00 DIS Inpatient RUBIO MEZA DO [facility] 4TH UPPER ABDOMINAL PAIN; HEMATEMESIS;N,V,D,ACUTE [id number] 04/05/2015 15:33:00 04/05/2015 18:28:00 DIS Emergency JF MALIK DO [facility] ER VOMITING,LACK OF APPETITE [id number] 02/26/2015 00:10:00 02/26/2015 23:59:59 CLS Preadmit RUBIO MEZA DO [facility] SURG RCR PORT FLUSH [id number] 02/01/2015 13:00:00 02/25/2015 00:01:00 DIS Outpatient RUBIO MEZA DO [facility] SURG RCR PORT FLUSH [id number] 12/21/2014 12:02:00 12/21/2014 23:59:59 CLS Outpatient VIKKI ROGEL MARQUITA Gina [facility] RAD WRIST PAIN ARTHSCOLOSIS OSTEOPOROSIS [id number] 08/05/2014 17:10:00 08/07/2014 13:10:00 DIS Inpatient RUBIO MEZA DO [facility] 4TH N/V HARJINDER MEDIUS [id number] 06/09/2014 21:46:00 06/12/2014 13:00:00 DIS Inpatient URBIO MEZA DO [facility] 4TH ADRENAL INSUFFICIENCY ,ABD PAIN,VOMITING [id number] 05/08/2014 12:49:00 05/09/2014 15:50:00 DIS Inpatient RUBIO MEZA DO [facility] 4TH NAUSEA VOMITING DEHYDRATION [id number] 03/29/2014 18:56:00 03/29/2014 21:59:00 DIS Emergency BRENDA PARDO APRN [facility] ER VOMITING [id number] 03/01/2014 03:30:00 03/06/2014 09:03:00 DIS Inpatient RUBIO MEZA DO [facility] 4TH ABD PAIN;HYPOKALEMIA [id number] 02/06/2014 22:53:00 02/11/2014 16:50:00 DIS Inpatient RUBIO MEZA DO [facility] 4TH SWB-DKA,ACUTE RENAL FAILURE,VOLUME DEPLETION [id number] 02/02/2014 18:16:00 02/06/2014 22:53:00 DIS Inpatient RUBIO MEZA DO [facility] 4TH DKA, ACUTE RENAL FAILURE, VOLUME DEPLETION [id number] 01/17/2014 15:36:00 01/20/2014 13:15:00 DIS Inpatient RUBIO MEZA DO [facility] 4TH HYPERGLYCEMIA, NAUSEA /VOMITING, HYPOKALEMIA [id number] 12/18/2013 17:12:00 12/19/2013 09:40:00 DIS Inpatient RUBIO MEZA DO [facility] 4TH VIRAL GASTROENTERITIS [id number] 08/22/2013 11:21:00 08/22/2013 23:59:59 CLS Outpatient AMANDA POWERS MD [facility] RAD HEMATURIA [id number] 12/24/2017 15:48:00 ACT Emergency JF MALIK DO [facility] ER STOMACH PAIN,VOMITTING,SWEATING [id number] 12/29/2016 13:05:00 Document Registration [id number] 12/24/2014 10:06:00 Document Registration [id number] 02/25/2013 13:22:00 Document Registration [id number] 12/11/2012 13:41:00 Document Registration [id number] 11/17/2012 19:39:00 Document Registration
[2017-12-24] MEDS ORDERED: LACTATED RINGERS 1,000 ML IV ONE (17:10)
[2017-12-24] MEDS ORDERED: PANTOPRAZOLE 40 MG/10 ML (PROTONIX) VIAL IV STA (17:10)
[2017-12-24] MEDS ORDERED: ONDANSETRON 4 MG/2 ML (SDV) Z0FRAN IVP ONE ×3 (17:15→19:30)
[2017-12-24] MEDS ORDERED: diphenhydrAMINE 50 MG/ML INJ (BENADRYL) IV STA (17:36)
[2017-12-24] MEDS ORDERED: NS IV 1000 ML 1,000 ML IV ONE (17:36)
[2017-12-24] MEDS ORDERED: KETOROLAC 30 MG/ML VIAL IVP STA (17:36)
[2017-12-24] MEDS ORDERED: DIAZEPAM INJ 10 MG/2 ML (VALIUM) SYR IV ONE (17:45)
--- NOTE | 2017-12-24 17:49 | ED Headache ---
General Chief Complaint: Abdominal/GI Problems Stated Complaint: STOMACH PAIN,VOMITTING,SWEATING Nursing Triage Note: PATIENT STATES THAT SHE BEGAN VOMITING YESTERDAY AND CURRENTLY HAS STOMACH PAIN THAT SHE DESCRIBES "IT GET'S HARD." SHE STATES THAT SHE HAS BEEN TOLD SHE MIGHT HAVE GASTROPARESIS AND SHE WAS HERE FOR THE SAME THING RECENTLY. Nursing Sepsis Screen: No Definite Risk Source: patient, spouse Exam Limitations: no limitations History of Present Illness Date Seen by Provider: Dec 24, 2017 Time Seen by Provider: 17:20 Allergies and Home Medications Allergies Coded Allergies: Sulfa (Sulfonamide Antibiotics) (Verified Allergy, Unknown, 11/26/15) Home Medications Albuterol Sulfate 18 Gm Hfa.aer.ad, 2 PUFF IH Q6H PRN for SHORTNESS OF BREATH, ( Reported) Alprazolam 1 Mg Tablet, 1 MG PO DAILY PRN for ANXIETY, (Reported) Atorvastatin Calcium 40 Mg Tablet, 40 MG PO HS, (Reported) Carbamazepine 200 Mg Tab.er.12h, 200 MG PO DAILY, (Reported) Clindamycin HCl 300 Mg Capsule, 300 MG PO QID, #28 Ref 0 Prescribed by: LOUISA MACE on 10/08/17 1521 Dextroamphetamine/Amphetamine 20 Mg Tablet, 20 MG PO BID, (Reported) Duloxetine HCl 60 Mg Capsule.dr, 60 MG PO BID, (Reported) Estrogens, Conjugated 0.625 Mg Tablet, 0.625 MG PO DAILY, (Reported) Fesoterodine Fumarate 4 Mg Tab.sr.24h, 4 MG PO DAILY, (Reported) Fludrocortisone Acetate 0.1 Mg Tab, 0.1 MG PO BID, (Reported) Fluticasone Propionate 16 Gm [place].susp, 1 SPRAY NSEACH BID PRN for ALLERGIES, ( Reported) Glucagon,Human Recombinant 1 Mg/Kit Soln, UD PRN for BLOOD SUGAR, (Reported) Hydrocodone/Acetaminophen 1 Each Tablet, 1 TAB PO QID PRN for PAIN, (Reported) Hydroxychloroquine Sulfate 200 Mg Tablet, 200 MG PO DAILY, (Reported) Hyoscyamine Sulfate 0.125 Mg Tab.subl, 0.125 MG SL Q6H PRN for SPASMS, #10 Ref 0 Prescribed by: LOUISA MACE on 09/22/17 2157 Insulin Degludec 100 Unit/1 Ml Insuln.pen, 17 UNITS SQ HS, (Reported) Insulin Lispro 100 Unit/1 Ml Insuln.pen, 4-6 UNITS SQ AC, (Reported) Levothyroxine Sodium 137 Mcg Tablet, 137 MCG PO DAILY, (Reported) Lorazepam 1 Mg Tablet, 1 MG PO TID PRN for ANXIETY, (Reported) Magnesium Oxide 400 Mg Tablet, 400 MG PO HS, (Reported) Metoclopramide HCl 10 Mg Tablet, 10 MG PO QID, (Reported) Montelukast Sodium 10 Mg Tablet, 10 MG PO DAILY, (Reported) Pantoprazole Sodium 40 Mg Tablet.dr, 40 MG PO DAILY, (Reported) Potassium Chloride 10 Meq Capsule.er, 10 MEQ PO DAILY, (Reported) Pregabalin 150 Mg Capsule, 150 MG PO BID, (Reported) Promethazine HCl 25 Mg Supp.rect, 25 MG RC Q6H PRN for NAUSEA/VOMITING-1ST LINE , #6 Ref 0 Prescribed by: LOUISA MACE on 09/22/172056 Promethazine HCl 25 Mg Tablet, 25 MG PO Q6H PRN for NAUSEA/VOMITING, #14 Ref 0 Prescribed by: CARA LEWIS on 11/02/17 182 Rizatriptan Benzoate 10 Mg Tablet, 10 MG PO DAILY PRN for MIGRAINE, (Reported) Sucralfate 1 Gm/10 Ml Oral.susp, 1 GM PO QID PRN for STOMACH UPSET, (Reported) Tizanidine HCl 4 Mg Tablet, 4 MG PO TID PRN for MUSCLE SPASMS, (Reported) Zolpidem Tartrate 10 Mg Tablet, 10 MG PO HS, (Reported) Past Oebfnyd-Izifpr-Icerii Hx Patient Social History Alcohol Use: Denies Use Recreational Drug Use: No Smoking Status: Never a Smoker 2nd Hand Smoke Exposure: No Recent Foreign Travel: No Contact w/Someone Who Travel: No Recent Infectious Disease Expo: No Recent Hopitalizations: No Immunizations Up To Date Tetanus Booster (TDap): More than 5yrs Date of Pneumonia Vaccine: Aug 19, 2014 Date of Influenza Vaccine: Aug 22, 2017 Seasonal Allergies Seasonal Allergies: No Surgeries History of Surgeries: Yes (PORT,CARPAL TUNNEL, R.HIP, BILAT SHOULDER SURGERY) Surgeries: Eye Surgery, Gallbladder, Hysterectomy, Orthopedic, Vascular Surgery Respiratory History of Respiratory Disorde: Yes Respiratory Disorders: Asthma Currently Using CPAP: No Currently Using BIPAP: No Cardiovascular History of Cardiac Disorders: Yes Cardiac Disorders: High Cholesterol, Hypertension Neurological History of Neurological Disord: Yes Neurological Disorders: Concussion, Headaches /Migraines, Neuropathy, Seizure Disorder, Traumatic Brain Injury Reproductive System Hx Reproductive Disorders: No Sexually Transmitted Disease: No HIV/AIDS: No Female Reproductive Disorders: Denies 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 Genitourinary History of Genitourinary Disor: Yes (UTI) Gastrointestinal History of Gastrointestinal Di: Yes (GASTROPARESIS WITH CHRONIC N/V) Gastrointestinal Disorders: Ulcer Musculoskeletal History of Musculoskeletal Dis: Yes Musculoskeletal Disorders: Arthritis Endocrine History of Endocrine Disorders: Yes (ADRENAL DISEASE) Endocrine Disorders: Diabetes, Insulin dep, Hypothyroidsim HEENT History of HEENT Disorders: Yes HEENT Disorders: Chronic Ear Infection Loss of Vision: Denies Hearing Impairment: Denies Cancer History of Cancer: No Psychosocial History of Psychiatric Problem: Yes Behavioral Health Disorders: Anxiety, Depression Integumentary History of Skin or Integumenta: No Blood Transfusions History of Blood Disorders: No Adverse Reaction to a Blood Tr: No Family Medical History Significant Family History: No Pertinent Family Hx, Cancer Family Medial History: Alcoholism 09 BROTHER Cancer 03 MOTHER (PANCREATIC CA) Myocardial infarction 03 MOTHER Physical Exam Vital Signs Vital Sign - Last 12Hours 12/24/17 16:48 Temp 99.2 Pulse 90 Resp 20 B/P (MAP) 139/86 (103) Pulse Ox 99 O2 Delivery Room Air Capillary Refill : Less Than 3 Seconds Progress/Results/Core Measures Results/Orders Lab Results Laboratory Tests Test 12/24/17 17:09 Range/Units Glucometer 177 H 70-110 MG/DL My Orders Orders - LOUISA MACE Ketorolac Injection (Toradol Injection) (12/24/17 17:36) Ns Iv 1000 Ml (Sodium Chloride 0.9%) (12/24/17 17:36) Ondansetron Injection (Zofran Injectio (12/24/17 17:45) Diphenhydramine Injection (Benadryl Inje (12/24/17 17:36) Diazepam Injection (Valium Injection) (12/24/17 17:45) Morphine Injection (Morphine Injection (12/24/17 19:25) Ondansetron Injection (Zofran Injectio (12/24/17 19:30) Medications Given in ED Current Medications Medications Dose Ordered Sig/Reva Route Start Time Stop Time Status Last Admin Dose Admin Diazepam 5 mg ONCE ONCE IV 12/24/17 17:45 12/24/17 17:46 DC 12/24/17 17:56 5 MG Lactated Ringer's 1,000 ml @ 0 mls/hr Q0M ONCE IV 12/24/17 17:10 12/24/17 17:17 DC 12/24/17 17:57 0 MLS/HR Ondansetron HCl 4 mg ONCE ONCE IVP 12/24/17 17:45 12/24/17 17:53 DC 12/24/17 17:56 4 MG Ondansetron HCl 4 mg ONCE ONCE IVP 12/24/17 19:30 12/24/17 19:31 DC 12/24/17 19:47 4 MG Vital Signs/I&O Vital Sign - Last 12Hours 12/24/17 16:48 Temp 99.2 Pulse 90 Resp 20 B/P (MAP) 139/86 (103) Pulse Ox 99 O2 Delivery Room Air Blood Pressure Mean: 103 Departure Impression Impression: Primary Impression: Chronic migraine Additional Impression: Chronic abdominal pain Disposition: HOME, SELF-CARE Condition: Improved Departure-Patient Inst. Decision time for Depature: 21:02 Referrals: RUBIO MEZA DO (PCP/Family) Primary Care Physician Patient Instructions: Acute Abdomen (Belly Pain), Adult (DC), Migraine Headache (DC) Add. Discharge Instructions: All discharge instructions reviewed with patient and/or family. Voiced understanding. Continue usual home medications. Drink plenty of fluids. Rest. Tylenol extra strength [id number] as directed for pain or headache. Ibuprofen 600 mg by mouth every 6-8 hours as needed for pain or headache. Avoid bright lights and loud noises. Follow-up with Dr. Meza tomorrow as an outpatient for recheck, call tomorrow morning for appointment time. Return to the emergency department for worsened symptoms or any other concerns. Scripts Ondansetron (Ondansetron Odt) 8 Mg Tab.rapdis 8 MG PO Q6H Y for NAUSEA/VOMITING-1ST LINE, #10 TAB 0 Refills Prov: LOUISA MACE 12/24/17 LOUISA MACE Dec 24, 2017 17:49
[2017-12-24] MEDS ORDERED: morphine INJ 10 MG/ML 1ML (SYR OR VIAL) IVP STA (19:25)
[2017-12-24] MEDS ORDERED: ONDA8TAB13 PO (21:05)
[2017-12-24 21:39] VITALS: BP 139/86
== END 2017-12-24 21:41 | disposition home or self-care (01) ==
LOC: EDUNIT# 15:46 → ER 15:48
DX: G43.709 Chronic migraine without aura, not intractable, without status migrainosus (principal); R10.9 Unspecified abdominal pain; G89.29 Other chronic pain; J45.909 Unspecified asthma, uncomplicated; E78.00 Pure hypercholesterolemia, unspecified; I10 Essential (primary) hypertension; E11.9 Type 2 diabetes mellitus without complications; E03.9 Hypothyroidism, unspecified; F41.9 Anxiety disorder, unspecified; F32.9 Major depressive disorder, single episode, unspecified; G40.909 Epilepsy, unspecified, not intractable, without status epilepticus; Z87.820 Personal history of traumatic brain injury; Z80.0 Family history of malignant neoplasm of digestive organs; Z82.49 Family history of ischemic heart disease and other diseases of the circulatory system; Z87.440 Personal history of urinary (tract) infections; Z87.19 Personal history of other diseases of the digestive system; Z88.2 Allergy status to sulfonamides; Z79.4 Long term (current) use of insulin; Z96.641 Presence of right artificial hip joint; Z90.710 Acquired absence of both cervix and uterus
CPT/HCPCS: 82962; 93005; 96361; 96374; 96375; 96376

== ENCOUNTER 2018-01-18 15:33 | Emergency (ER) | payer BC, MEDICARE, MEDICAID ==
[~2018-01-18] VITALS: Ht 165.1 cm; Wt 59.0 kg
--- OUTSIDE RECORDS SUMMARY | 2018-01-18 15:52 | XMS REPORT | Continuity of Care Document ---
Author Author [facility] Organization [facility] Address Unknown Phone Unavailable Allergies Active Description Code Type Severity Reaction Onset Reported/Identified Relationship to Patient Clinical Status Yes Sulfa (Sulfonamide Antibiotics) [id number] Drug Allergy Unknown N/A 2015 Medications There [...] OBSTRUCTION 11/30/2015 SANDRA VALDEZ DO Ot Z79.4 ALF (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 12/21/2015 Ot 346.90 [...] JF A Ot K29.70 01/14/2016 REMI LIAO, FJ A Ot E03.9 01/14/2016 REMI LIAO, JF [...] PAIN 01/25/2016 THOMAS HERNANDEZ MD Ot Z79.4 SCRAPER HAND (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 01/28/2016 REMI LIAO, [...] OBSTRUCTION 04/15/2016 VALDEZSANDRA GARCIA DO Ot Z79.4 ALF (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 12/29/2016 Ot 346.90 [...] 01/18/2017 NEVAEH LANIER MD Ot Z79.899 OTHER SCRAPER HAND (CURRENT) DRUG THERAPY 01/18/2017 NEVAEH LANIER MD [...] 01/18/2017 NEVAEH LANIER MD Ot Z79.899 OTHER ALF (CURRENT) DRUG THERAPY 02/23/2017 RUBIO MEZA DO [...] Ot E03.9 HYPOTHYROIDISM, UNSPECIFIED 05/18/2017 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 Ot E11.9 TYPE 2 DIABETES MELLITUS WITHOUT COMPLIC 05/18/2017 BRENDA PARDO APRN Ot E78.00 PURE HYPERCHOLESTEROLEMIA, UNSPECIFIED 05/18/2017 BRENDA PARDO APRN Ot F41.8 OTHER SPECIFIED ANXIETY DISORDERS 05/18/2017 BRENDA PARDO APRN Ot G43.909 MIGRAINE, UNSP, NOT INTRACTABLE, WITHOUT 05/18/2017 BRENDA PARDO APRN Ot I10 ESSENTIAL (PRIMARY) HYPERTENSION 05/18/2017 BRENDA PARDO APRN Ot M19.90 UNSPECIFIED OSTEOARTHRITIS, UNSPECIFIED 05/18/2017 BRENDA PARDO APRN Ot R51 HEADACHE 05/18/2017 BRENDA PARDO APRN Ot Z79.4 ALF (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 05/18/2017 BRENDA PARDO APRN Ot Z90.49 ACQUIRED ABSENCE OF OTHER SPECIFIED PART 05/18/2017 RBENDA PARDO APRN Ot Z90.89 ACQUIRED ABSENCE OF [...] HEADACHE 05/21/2017 BRENDA PARDO APRN Ot Z79.4 SCRAPER HAND (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 05/21/2017 BRENDA PARDO APRN Ot Z90.49 ACQUIRED ABSENCE OF OTHER SPECIFIED PART 05/21/2017 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 Ot Z90.89 ACQUIRED ABSENCE OF OTHER ORGANS 05/22/2017 BRENDA PARDO APRN Ot E03.9 HYPOTHYROIDISM, UNSPECIFIED 05/22/2017 BRENDA PARDO APRN Ot E11.9 TYPE 2 DIABETES MELLITUS WITHOUT COMPLIC 05/22/2017 BRENDA PARDO APRN Ot E78.00 PURE HYPERCHOLESTEROLEMIA, UNSPECIFIED 05/22/2017 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 Ot F41.8 OTHER SPECIFIED ANXIETY DISORDERS 05/22/2017 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 Ot G43.909 MIGRAINE, UNSP, NOT INTRACTABLE, WITHOUT 05/22/2017 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 Ot I10 ESSENTIAL (PRIMARY) HYPERTENSION 05/22/2017 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 Ot M19.90 UNSPECIFIED OSTEOARTHRITIS, UNSPECIFIED 05/22/2017 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 Ot R51 HEADACHE 05/22/2017 BRENDA PARDO APRN Ot Z79.4 SCRAPER HAND (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 05/22/2017 BRENDA PARDO APRN Ot Z90.49 ACQUIRED ABSENCE OF OTHER SPECIFIED PART 05/22/2017 BRENDA PARDO APRN Ot Z90.89 ACQUIRED ABSENCE OF OTHER ORGANS 05/22/2017 BRENDA PARDO APRN Ot E03.9 HYPOTHYROIDISM, UNSPECIFIED 05/22/2017 BRENDA PARDO APRN Ot E11.9 TYPE 2 DIABETES MELLITUS WITHOUT COMPLIC 05/22/2017 BRENDA PARDO APRN Ot E78.00 PURE HYPERCHOLESTEROLEMIA, UNSPECIFIED 05/22/2017 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 Ot F41.8 OTHER SPECIFIED ANXIETY DISORDERS 05/22/2017 BRENDA PARDO APRN Ot G43.909 MIGRAINE, UNSP, NOT INTRACTABLE, WITHOUT 05/22/2017 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 Ot I10 ESSENTIAL (PRIMARY) HYPERTENSION 05/22/2017 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 Ot M19.90 UNSPECIFIED OSTEOARTHRITIS, UNSPECIFIED 05/22/2017 BRENDA PARDO APRN Ot R51 HEADACHE 05/22/2017 BRENDA PARDO APRN Ot Z79.4 SCRAPER HAND (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 05/22/2017 BRENDA PARDO [...] GLUCOSE 06/08/2017 MARQUITA CAMPOS MD Ot Z79.4 ALF (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 06/08/2017 MARQUITA CAMPOS [...] Ot Z45.2 ENCOUNTER FOR ADJUSTMENT AND MANAGEMENT 07/22/2017 CARA LEWIS MD Ot A08.4 VIRAL INTESTINAL INFECTION, UNSPECIFIED 07/22/2017 CARA LEWIS MD Ot E03.9 HYPOTHYROIDISM, UNSPECIFIED 07/22/2017 CARA LEWIS MD Ot E11.40 TYPE 2 DIABETES MELLITUS WITH DIABETIC N 07/22/2017 CARA LEWIS MD Ot E78.00 PURE HYPERCHOLESTEROLEMIA, UNSPECIFIED 07/22/2017 CARA LEWIS MD Ot F32.9 MAJOR DEPRESSIVE DISORDER, SINGLE EPISOD 07/22/2017 CARA LEWIS MD Ot F41.9 ANXIETY DISORDER, UNSPECIFIED 07/22/2017 CARA LEWIS MD Ot G43.909 MIGRAINE, UNSP, NOT INTRACTABLE, WITHOUT 07/22/2017 CARA LEWIS MD Ot I10 ESSENTIAL (PRIMARY) HYPERTENSION 07/22/2017 CARA LEWIS MD Ot J45.909 UNSPECIFIED ASTHMA, UNCOMPLICATED 07/22/2017 CARA LEWIS MD Ot R11.2 NAUSEA WITH VOMITING, UNSPECIFIED 07/22/2017 CARA LEWIS MD Ot Z79.4 SCRAPER HAND (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 07/22/2017 CARA LEWIS MD Ot Z80.0 FAMILY HISTORY OF MALIGNANT NEOPLASM OF 07/22/2017 CARA LEWIS MD Ot Z82.49 FAMILY HX OF ISCHEM HEART DIS AND OTH DI 07/22/2017 CARA LEWIS MD Ot Z87.19 PERSONAL HISTORY OF OTHER DISEASES OF 07/22/2017 CARA LEWIS MD Ot Z87.820 PERSONAL HISTORY OF TRAUMATIC BRAIN INJU 07/22/2017 CARA LEWIS MD Ot Z90.710 ACQUIRED ABSENCE OF BOTH CERVIX AND UTER 07/23/2017 CARA LEWIS MD Ot A08.4 VIRAL [...] UNSPECIFIED 07/23/2017 CARA LEWIS MD Ot Z79.4 SCRAPER HAND (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 07/23/2017 CARA LEWIS [...] MD Ot J45.909 UNSPECIFIED ASTHMA, UNCOMPLICATED 08/11/2017 CRAA LEWIS MD Ot R11.2 NAUSEA WITH VOMITING, UNSPECIFIED 08/11/2017 CARA LEWIS MD Ot Z79.4 ALF (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 08/11/2017 CARA LEWIS MD Ot Z80.0 FAMILY HISTORY OF MALIGNANT NEOPLASM OF 08/11/2017 CARA LEWIS MD Ot Z82.49 FAMILY HX OF ISCHEM HEART DIS AND OTH DI 08/11/2017 CARA LEWIS MD Ot Z87.19 PERSONAL HISTORY OF OTHER DISEASES OF 08/11/2017 CARA LEWIS MD Ot Z87.820 PERSONAL HISTORY OF TRAUMATIC BRAIN INJU 08/11/2017 CARA LEWIS MD Ot Z90.710 ACQUIRED ABSENCE OF BOTH CERVIX AND UTER 08/15/2017 RUBIO MEZA DO, Ot S09.90XA UNSPECIFIED INJURY OF HEAD, INITIAL ENCO 08/15/2017 RUBIO MEZA DO Ot X58.XXXA EXPOSURE TO [...] I10 ESSENTIAL (PRIMARY) HYPERTENSION 08/22/2017 CARA LEWIS MD Ot J45.909 UNSPECIFIED ASTHMA, UNCOMPLICATED 08/22/2017 CARA LEWIS MD Ot R11.2 NAUSEA WITH VOMITING, UNSPECIFIED 08/22/2017 CARA LEWIS MD Ot Z79.4 SCRAPER HAND (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 08/22/2017 CARA LEWIS [...] R51 HEADACHE 09/03/2017 LOUISA BONILLA Ot Z79.4 ALF (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 09/03/2017 LOUISA BONILLA [...] UNSPECIFIED 09/05/2017 NEVAEH LANIER MD Ot Z79.4 ALF (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 09/09/2017 LOUISA BONILLA [...] R51 HEADACHE 09/09/2017 LOUISA BONILLA Ot Z79.4 SCRAPER HAND (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 09/09/2017 LOUISA BONILLA Ot Z80.0 FAMILY HISTORY OF MALIGNANT NEOPLASM OF 09/09/2017 LOUISA BONILLA Ot Z82.49 FAMILY HX OF ISCHEM HEART DIS AND OTH DI 09/09/2017 LOUISA BONILLA Ot Z87.19 PERSONAL HISTORY OF OTHER DISEASES OF TH 09/09/2017 LOUISA BONILLA Ot Z87.820 PERSONAL HISTORY OF TRAUMATIC BRAIN INJU 09/09/2017 LOUISA BONILLA Ot Z90.710 ACQUIRED ABSENCE OF BOTH CERVIX AND UTER 09/22/2017 LOUISA BONILLA Ot E03.9 HYPOTHYROIDISM, UNSPECIFIED 09/22/2017 LOUISA BONILLA Ot E11.9 TYPE 2 DIABETES MELLITUS WITHOUT COMPLIC 09/22/2017 LOUISA BONILLA Ot E78.00 PURE HYPERCHOLESTEROLEMIA, UNSPECIFIED 09/22/2017 LOUISA [...] R11.2 NAUSEA WITH VOMITING, UNSPECIFIED 09/22/2017 LOUISA BONILAL Ot R51 HEADACHE 09/22/2017 LOUISA BONILLA Ot Z79.4 ALF (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 09/22/2017 LOUISA BONILLA Ot Z80.0 FAMILY HISTORY OF MALIGNANT NEOPLASM OF 09/22/2017 LOUISA BONILLA Ot Z82.49 FAMILY HX OF ISCHEM HEART DIS AND OTH DI 09/22/2017 LOUISA BONILLA Ot Z87.19 PERSONAL HISTORY OF OTHER DISEASES OF TH 09/22/2017 LOUISA BONILLA Ot Z87.820 PERSONAL HISTORY OF TRAUMATIC BRAIN INJU 09/22/2017 LOUISA BOINLLA Ot Z90.710 ACQUIRED ABSENCE OF BOTH CERVIX AND UTER 10/01/2017 CARA LEWIS MD Ot A08.4 VIRAL INTESTINAL INFECTION, UNSPECIFIED 10/01/2017 CARA LEWIS MD Ot E03.9 HYPOTHYROIDISM, UNSPECIFIED 10/01/2017 CARA LEWIS MD Ot E11.40 TYPE 2 DIABETES MELLITUS WITH DIABETIC N 10/01/2017 CARA LEWIS MD Ot E78.00 PURE HYPERCHOLESTEROLEMIA, UNSPECIFIED 10/01/2017 CARA LEWIS MD Ot F32.9 MAJOR DEPRESSIVE DISORDER, SINGLE EPISOD 10/01/2017 CARA LEWIS MD Ot F41.9 ANXIETY DISORDER, UNSPECIFIED 10/01/2017 CARA LWEIS MD Ot G43.909 MIGRAINE, UNSP, NOT INTRACTABLE, WITHOUT 10/01/2017 CARA LEWIS MD Ot I10 ESSENTIAL (PRIMARY) HYPERTENSION 10/01/2017 CARA LEWIS MD Ot J45.909 UNSPECIFIED ASTHMA, UNCOMPLICATED 10/01/2017 CARA LEWIS MD Ot R11.2 NAUSEA WITH VOMITING, UNSPECIFIED 10/01/2017 CARA LEWIS MD Ot Z79.4 SCRAPER HAND (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 10/01/2017 CARA LEWIS MD Ot Z80.0 FAMILY HISTORY OF MALIGNANT NEOPLASM OF 10/01/2017 CARA LEWIS MD, Ot Z82.49 FAMILY HX OF ISCHEM HEART DIS AND OTH DI 10/01/2017 CARA LEWIS MD Ot Z87.19 PERSONAL HISTORY OF OTHER DISEASES OF TH 10/01/2017 CARA LEWIS MD, Ot Z87.820 PERSONAL HISTORY [...] OF L 10/08/2017 LOUISA BONILLA Ot Z79.4 ALF (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 10/08/2017 LOUISA BONILLA [...] OF L 10/10/2017 LOUISA BONILLA Ot Z79.4 SCRAPER HAND (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 10/10/2017 RODRI PA, LOUISA L Ot Z80.0 FAMILY HISTORY OF MALIGNANT NEOPLASM OF 10/10/2017 LOUISA BONILLA Ot Z82.49 FAMILY HX OF ISCHEM HEART DIS AND OTH DI 10/10/2017 LOUISA BONILLA Ot Z87.19 PERSONAL HISTORY OF OTHER DISEASES OF 10/10/2017 LOUISA BONILLA Ot Z87.820 PERSONAL HISTORY OF TRAUMATIC BRAIN INJU 10/10/2017 LOUISA BONILLA Ot Z90.710 ACQUIRED ABSENCE OF BOTH CERVIX AND UTER 10/11/2017 THOMAS HERNANDEZ MD, Ot E03.9 HYPOTHYROIDISM, UNSPECIFIED 10/11/2017 THOMAS HERNANDEZ MD Ot E11.40 TYPE 2 DIABETES MELLITUS WITH DIABETIC N 10/11/2017 THOMAS HERNANDEZ MD Ot E78.00 PURE HYPERCHOLESTEROLEMIA, UNSPECIFIED 10/11/2017 THOMAS HERNANDEZ MD Ot F32.9 MAJOR DEPRESSIVE DISORDER, SINGLE EPISOD 10/11/2017 THOMAS HERNANDEZ MD Ot F41.9 ANXIETY DISORDER, UNSPECIFIED 10/11/2017 THOMAS HERNANDEZ MD Ot G40.909 EPILEPSY, UNSP, NOT INTRACTABLE, WITHOUT 10/11/2017 THOMAS HERNANDEZ MD Ot G43.909 MIGRAINE, UNSP, NOT INTRACTABLE, WITHOUT 10/11/2017 THOMAS HERNANDEZ MD Ot I10 ESSENTIAL (PRIMARY) HYPERTENSION 10/11/2017 THOMAS HERNANDEZ MD Ot J45.909 UNSPECIFIED ASTHMA, UNCOMPLICATED 10/11/2017 THOMAS HERNANDEZ MD Ot Z79.4 ALF (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 10/11/2017 THOMAS HERNANDEZ MD Ot Z80.0 FAMILY HISTORY OF MALIGNANT NEOPLASM OF 10/11/2017 THOMAS HERNANDEZ MD Ot Z82.49 FAMILY HX OF ISCHEM HEART DIS AND OTH DI 10/11/2017 THOMAS HERNANDEZ MD Ot Z87.19 PERSONAL HISTORY OF OTHER DISEASES OF 10/11/2017 THOMAS HERNANDEZ MD Ot Z87.440 PERSONAL HISTORY OF URINARY (TRACT) INFE 10/11/2017 THOMAS HERNANDEZ MD Ot Z87.820 PERSONAL HISTORY OF TRAUMATIC BRAIN INJU 10/11/2017 THOMAS HERNANDEZ MD, Ot Z90.710 ACQUIRED ABSENCE OF BOTH CERVIX AND UTER 11/02/2017 CARA LEWIS MD Ot A08.4 VIRAL INTESTINAL INFECTION, UNSPECIFIED 11/02/2017 CARA LEWIS MD Ot E03.9 HYPOTHYROIDISM, UNSPECIFIED 11/02/2017 CARA LEWIS MD Ot E11.40 TYPE 2 [...] UNSPECIFIED 11/02/2017 CARA LEWIS MD Ot Z79.4 SCRAPER HAND (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 11/02/2017 CARA LEWIS MD Ot Z80.0 FAMILY HISTORY OF MALIGNANT NEOPLASM OF 11/02/2017 CARA LEWIS MD Ot Z82.49 FAMILY HX OF ISCHEM HEART DIS AND OTH DI 11/02/2017 CARA LEWIS MD Ot Z87.19 PERSONAL HISTORY OF OTHER DISEASES OF TH 11/02/2017 CARA LEWIS MD Ot Z87.440 PERSONAL [...] UNSPECIFIED 11/05/2017 CARA LEWIS MD Ot Z79.4 ALF (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 11/05/2017 CARA LEWIS [...] MD Ot E03.9 HYPOTHYROIDISM, UNSPECIFIED 11/08/2017 CARA LEWIS MD Ot E11.40 TYPE 2 [...] UNSPECIFIED 11/08/2017 CARA LEWIS MD Ot Z79.4 ALF (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 11/08/2017 CARA LEWIS MD Ot Z80.0 FAMILY HISTORY OF MALIGNANT NEOPLASM OF 11/08/2017 CARA LEWIS MD Ot Z82.49 FAMILY HX OF ISCHEM HEART DIS AND OTH DI 11/08/2017 CARA LEWIS MD Ot Z87.19 PERSONAL HISTORY OF OTHER DISEASES OF 11/08/2017 CARA LEWIS MD Ot Z87.820 PERSONAL HISTORY OF TRAUMATIC BRAIN INJU 11/08/2017 CARA LEWIS MD Ot Z90.710 ACQUIRED ABSENCE OF BOTH CERVIX AND UTER 11/21/2017 CARA LEWIS MD Ot A08.4 VIRAL INTESTINAL INFECTION, UNSPECIFIED 11/21/2017 CARA LEWIS MD Ot E03.9 HYPOTHYROIDISM, UNSPECIFIED 11/21/2017 CARA LEWIS MD Ot E11.40 TYPE 2 DIABETES MELLITUS WITH DIABETIC N 11/21/2017 CARA LEWIS MD Ot E78.00 PURE HYPERCHOLESTEROLEMIA, UNSPECIFIED 11/21/2017 [...] UNSPECIFIED 11/21/2017 CARA LEWIS MD Ot Z79.4 SCRAPER HAND (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 11/21/2017 CARA LEWIS [...] Ot R53.83 OTHER FATIGUE 12/04/2017 RUBIO MEZA DO, Ot S09.90XA UNSPECIFIED INJURY [...] UNSPECIFIED 12/04/2017 CARA LEWIS MD Ot Z79.4 ALF (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 12/04/2017 CARA LEWIS MD Ot Z80.0 FAMILY HISTORY OF MALIGNANT NEOPLASM OF 12/04/2017 CARA ELWIS MD Ot Z82.49 FAMILY HX OF ISCHEM HEART DIS AND OTH DI 12/04/2017 CARA LEWIS MD Ot Z87.19 PERSONAL HISTORY OF OTHER DISEASES OF TH 12/04/2017 CARA LEWIS MD Ot Z87.820 PERSONAL HISTORY OF TRAUMATIC BRAIN INJU 12/04/2017 CARA LEWIS MD Ot Z90.710 ACQUIRED ABSENCE OF BOTH CERVIX AND UTER 12/04/2017 RUBIO MEZA DO Ot Z45.2 ENCOUNTER FOR ADJUSTMENT AND MANAGEMENT 12/24/2017 Ot 346.90 MIGRAINE UNSPECIFIED W/O INTRACT MGRN W/ 12/24/2017 Ot 780.4 DIZZINESS AND GIDDINESS 12/24/2017 Ot 781.2 ABNORMALITY OF GAIT 12/24/2017 AMANDA POWERS MD Ot 599.70 HEMATURIA, UNSPECIFIED 12/24/2017 AMANDA POWERS MD Ot V81.5 SCREEN FOR NEPHROPATHY 12/24/2017 MARQUITA FLOREZ DO Ot 719.43 JOINT PAIN-FOREARM 12/24/2017 RUBIO MEZA DO Ot V58.81 FIT/ADJ VASCULAR CATHETER 12/24/2017 JF KHALIL MD, Ot E03.9 HYPOTHYROIDISM, UNSPECIFIED 12/24/2017 JF KHALIL MD Ot E10.9 TYPE 1 DIABETES MELLITUS WITHOUT COMPLIC 12/24/2017 JF KHALIL MD, Ot K21.9 GASTRO-ESOPHAGEAL REFLUX DISEASE WITHOUT 12/24/2017 JF KHALIL MD Ot K29.70 GASTRITIS, UNSPECIFIED, WITHOUT BLEEDING 12/24/2017 Ot Z12.31 ENCNTR SCREEN MAMMOGRAM FOR MALIGNANT NE 12/24/2017 RUBIO MEZA DO Ot 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 12/24/2017 RUBIO MEZA DO Ot R53.83 OTHER FATIGUE 12/24/2017 RUBIO MEZA DO Ot S09.90XA UNSPECIFIED INJURY OF HEAD, INITIAL ENCO 12/24/2017 RUBIO MEZA DO Ot X58.XXXA EXPOSURE TO OTHER SPECIFIED FACTORS, INI 12/24/2017 CARA LEWIS MD Ot A08.4 VIRAL INTESTINAL INFECTION, UNSPECIFIED 12/24/2017 CARA LEWIS MD Ot E03.9 HYPOTHYROIDISM, UNSPECIFIED 12/24/2017 CARA LEWIS MD Ot E11.40 TYPE 2 DIABETES MELLITUS WITH DIABETIC N 12/24/2017 CARA LEWIS MD Ot E78.00 PURE HYPERCHOLESTEROLEMIA, UNSPECIFIED 12/24/2017 CARA LEWIS MD Ot F32.9 MAJOR DEPRESSIVE DISORDER, SINGLE EPISOD 12/24/2017 CARA LEWIS MD Ot F41.9 ANXIETY DISORDER, UNSPECIFIED 12/24/2017 CARA LEWIS MD Ot G43.909 MIGRAINE, UNSP, NOT INTRACTABLE, WITHOUT 12/24/2017 CARA LEWIS MD Ot I10 ESSENTIAL (PRIMARY) HYPERTENSION 12/24/2017 CARA LEWIS MD, Ot J45.909 UNSPECIFIED ASTHMA, UNCOMPLICATED 12/24/2017 CARA LEWIS MD Ot R11.2 NAUSEA WITH VOMITING, UNSPECIFIED 12/24/2017 CARA LEWIS MD Ot Z79.4 ALF (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 12/24/2017 CARA LEWIS MD, Ot Z80.0 FAMILY HISTORY OF MALIGNANT NEOPLASM OF 12/24/2017 CARA LEWIS MD, Ot Z82.49 FAMILY HX OF ISCHEM HEART DIS AND OTH DI 12/24/2017 CARA LEWIS MD, Ot Z87.19 PERSONAL HISTORY OF OTHER DISEASES OF TH 12/24/2017 CARA LEWIS MD, Ot Z87.820 PERSONAL HISTORY OF TRAUMATIC BRAIN INJU 12/24/2017 CARA LEWIS MD, Ot Z90.710 ACQUIRED ABSENCE OF BOTH CERVIX AND UTER 12/24/2017 RUBIO MEZA DO Ot Z45.2 ENCOUNTER FOR ADJUSTMENT AND MANAGEMENT 12/24/2017 LOUISA BONILLA Ot E03.9 HYPOTHYROIDISM, UNSPECIFIED 12/24/2017 LOUISA BONILLA Ot E11.9 TYPE 2 DIABETES MELLITUS WITHOUT COMPLIC 12/24/2017 LOUISA BONILLA Ot E78.00 PURE HYPERCHOLESTEROLEMIA, UNSPECIFIED 12/24/2017 LOUISA BONILLA Ot F32.9 MAJOR DEPRESSIVE DISORDER, SINGLE EPISOD 12/24/2017 LOUISA BONILLA Ot F41.9 ANXIETY DISORDER, UNSPECIFIED 12/24/2017 LOUISA BONILLA Ot G40.909 EPILEPSY, UNSP, NOT INTRACTABLE, WITHOUT 12/24/2017 LOUISA BONILLA Ot G43.709 CHRONIC MIGRAINE W/O AURA, NOT INTRACTAB 12/24/2017 LOUISA BONILLA Ot G89.29 OTHER CHRONIC PAIN 12/24/2017 LOUISA BONILLA Ot I10 ESSENTIAL (PRIMARY) HYPERTENSION 12/24/2017 LOUISA BONILLA Ot J45.909 UNSPECIFIED ASTHMA, UNCOMPLICATED 12/24/2017 LOUISA BONILLA Ot R10.9 UNSPECIFIED ABDOMINAL PAIN 12/24/2017 LOUISA BONILLA Ot R11.10 VOMITING, UNSPECIFIED 12/24/2017 LOUISA BONILLA Ot Z79.4 SCRAPER HAND (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 12/24/2017 LOUISA BONILLA Ot Z80.0 FAMILY HISTORY OF MALIGNANT NEOPLASM OF 12/24/2017 LOUISA BONILLA Ot Z82.49 FAMILY HX OF ISCHEM HEART DIS AND OTH DI 12/24/2017 LOUISA BONILLA Ot Z87.19 PERSONAL HISTORY OF OTHER DISEASES OF TH 12/24/2017 LOUISA BONILLA Ot Z87.440 PERSONAL HISTORY OF URINARY (TRACT) INFE 12/24/2017 LOUISA BONILLA Ot Z87.820 PERSONAL HISTORY OF TRAUMATIC BRAIN INJU 12/24/2017 LOUISA BONILLA Ot Z88.2 ALLERGY STATUS TO SULFONAMIDES STATUS 12/24/2017 LOUISA BONILLA Ot Z90.710 ACQUIRED ABSENCE OF BOTH CERVIX AND UTER 12/24/2017 LOUISA BONILLA Ot Z96.641 PRESENCE OF RIGHT ARTIFICIAL HIP JOINT 12/26/2017 LOUISA BONILLA Ot E03.9 HYPOTHYROIDISM, UNSPECIFIED 12/26/2017 LOUISA BONILLA Ot E11.9 TYPE 2 DIABETES MELLITUS WITHOUT COMPLIC 12/26/2017 LOUISA BONILLA Ot E78.00 PURE HYPERCHOLESTEROLEMIA, UNSPECIFIED 12/26/2017 LOUISA BONILLA Ot F32.9 MAJOR DEPRESSIVE DISORDER, SINGLE EPISOD 12/26/2017 LOUISA BONILLA Ot F41.9 ANXIETY DISORDER, UNSPECIFIED 12/26/2017 LOUISA BONILLA Ot G40.909 EPILEPSY, UNSP, NOT INTRACTABLE, WITHOUT 12/26/2017 LOUISA BONILLA Ot G43.709 CHRONIC MIGRAINE W/O AURA, NOT INTRACTAB 12/26/2017 LOUISA BONILLA Ot G89.29 OTHER CHRONIC PAIN 12/26/2017 LOUISA BONILLA Ot I10 ESSENTIAL (PRIMARY) HYPERTENSION 12/26/2017 LOUISA BONILLA Ot J45.909 UNSPECIFIED ASTHMA, UNCOMPLICATED 12/26/2017 LOUISA BONILLA Ot R10.9 UNSPECIFIED ABDOMINAL PAIN 12/26/2017 RODRI PA, LOUISA L Ot R11.10 VOMITING, UNSPECIFIED 12/26/2017 LOUISA BONILLA Ot Z79.4 SCRAPER HAND (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 12/26/2017 LOUISA BONILLA Ot Z80.0 FAMILY HISTORY OF MALIGNANT NEOPLASM OF 12/26/2017 LOUISA BONILLA Ot Z82.49 FAMILY HX OF ISCHEM HEART DIS AND OTH DI 12/26/2017 LOUISA BONILLA Ot Z87.19 PERSONAL HISTORY OF OTHER DISEASES OF TH 12/26/2017 LOUISA BONILLA Ot Z87.440 PERSONAL HISTORY OF URINARY (TRACT) INFE 12/26/2017 LOUISA BONILLA Ot Z87.820 PERSONAL HISTORY OF TRAUMATIC BRAIN INJU 12/26/2017 LOUISA BONILLA Ot Z88.2 ALLERGY STATUS TO SULFONAMIDES STATUS 12/26/2017 LOUISA BONILLA Ot Z90.710 ACQUIRED ABSENCE OF BOTH CERVIX AND UTER 12/26/2017 LOUISA BONILLA Ot Z96.641 PRESENCE OF RIGHT ARTIFICIAL HIP JOINT 12/31/2017 CARA LEWIS MD Ot A08.4 VIRAL INTESTINAL INFECTION, UNSPECIFIED 12/31/2017 CARA LEWIS MD Ot E03.9 HYPOTHYROIDISM, UNSPECIFIED 12/31/2017 CARA LEWIS MD Ot E11.40 TYPE 2 DIABETES MELLITUS WITH DIABETIC N 12/31/2017 CARA LEWIS MD Ot E78.00 PURE HYPERCHOLESTEROLEMIA, UNSPECIFIED 12/31/2017 CARA LEWIS MD Ot F32.9 MAJOR DEPRESSIVE DISORDER, SINGLE EPISOD 12/31/2017 CARA LEWIS MD Ot F41.9 ANXIETY DISORDER, UNSPECIFIED 12/31/2017 CARA LEWIS MD Ot G43.909 MIGRAINE, UNSP, NOT INTRACTABLE, WITHOUT 12/31/2017 CARA LEWIS MD Ot I10 ESSENTIAL (PRIMARY) HYPERTENSION 12/31/2017 CARA LEWIS MD Ot J45.909 UNSPECIFIED ASTHMA, UNCOMPLICATED 12/31/2017 CARA LEWIS MD Ot R11.2 NAUSEA WITH VOMITING, UNSPECIFIED 12/31/2017 CARA LEWIS MD Ot Z79.4 ALF (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 12/31/2017 CARA LEWIS MD Ot Z80.0 FAMILY HISTORY OF MALIGNANT NEOPLASM OF 12/31/2017 CARA LEWIS MD, Ot Z82.49 FAMILY HX OF ISCHEM HEART DIS AND OTH DI 12/31/2017 CARA LEWIS MD, Ot Z87.19 PERSONAL HISTORY OF OTHER DISEASES OF TH 12/31/2017 CARA LEWIS MD, Ot Z87.820 PERSONAL HISTORY OF TRAUMATIC BRAIN INJU 12/31/2017 CARA LEWIS MD, Ot Z90.710 ACQUIRED ABSENCE OF BOTH CERVIX AND UTER 01/10/2018 Ot 346.90 MIGRAINE UNSPECIFIED W/O INTRACT MGRN W/ 01/10/2018 Ot 780.4 DIZZINESS AND GIDDINESS 01/10/2018 Ot 781.2 ABNORMALITY OF GAIT 01/10/2018 AMANDA POWERS MD Ot 599.70 HEMATURIA, UNSPECIFIED 01/10/2018 AMANDA POWERS MD Ot V81.5 SCREEN FOR NEPHROPATHY 01/10/2018 MARQUITA FLOREZ DO Ot 719.43 JOINT PAIN-FOREARM 01/10/2018 RUBIO MEZA DO, Ot V58.81 FIT/ADJ VASCULAR CATHETER 01/10/2018 JF KHALIL MD Ot E03.9 HYPOTHYROIDISM, UNSPECIFIED 01/10/2018 JF KHALIL MD Ot E10.9 TYPE 1 DIABETES MELLITUS WITHOUT COMPLIC 01/10/2018 JF KHALIL MD Ot K21.9 GASTRO-ESOPHAGEAL REFLUX DISEASE WITHOUT 01/10/2018 JF KHALIL MD Ot K29.70 GASTRITIS, UNSPECIFIED, WITHOUT BLEEDING 01/10/2018 Ot Z12.31 ENCNTR SCREEN MAMMOGRAM FOR MALIGNANT NE 01/10/2018 RUBIO MEZA DO, Ot 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 Visit Date/Time Discharge Status Pt. Type Provider Facility Loc./Unit Complaint [id number] 12/24/2017 15:48:00 12/24/2017 21:41:00 DIS Emergency LOUISA BONILLA [facility] ER STOMACH PAIN,VOMITTING ,SWEATING [id number] 11/02/2017 17:46:00 11/02/2017 19:48:00 DIS Emergency CARA LEWIS MD [facility] ER N/V [id number] 10/11/2017 18:31:00 10/11/2017 22:25:00 DIS Emergency THOMAS HERNANDEZ MD [facility] ER MIGRAINE,EAR PAIN [id number] 10/08/2017 12:15:00 10/08/2017 16:30:00 DIS Emergency LOUISA BONILLA [facility] ER headache,vomiting,ear piercing infections [id number] 09/22/2017 18:32:00 09/22/2017 22:13:00 DIS Emergency LOUISA BONILLA [facility] ER N/V [id number] 09/04/2017 11:30:00 09/05/2017 11:50:00 DIS Inpatient NEVAEH LANIER MD [facility] 4TH INTRACTABLE N/V,KETOSIS [id number] 09/03/2017 11:02:00 09/03/2017 16:26:00 DIS Emergency LOUISA BONILLA [facility] ER ABD PAIN/VOMITING MIGRAINE [id number] 08/19/2017 00:19:00 08/19/2017 23:59:59 CLS Preadmit RUBIO MEZA DO [facility] [id number] 05/30/2017 10:26:00 08/18/2017 00:01:00 DIS Outpatient RUBIO MEZA DO [facility] [id number] 07/21/2017 23:49:00 07/22/2017 02:16:00 DIS Emergency CARA LEWIS MD [facility] ER VOMITING HEADACHE [id number] 07/06/2017 08:00:00 07/06/2017 23:59:59 CLS Outpatient RUBIO MEZA DO [facility] RT SEIZURE DISORDER [id number] 06/08/2017 07:41:00 06/08/2017 10:53:00 DIS Emergency MARQUITA CAMPOS MD [facility] ER VOMITTING,ABD PAIN, HEADACHE [id number] 05/18/2017 17:44:00 05/18/2017 18:30:00 DIS Emergency BRENDA PARDO APRN [facility] ER HEADACHE [id number] 02/22/2017 06:45:00 02/22/2017 23:59:59 CLS Outpatient RUBIO MEZA DO [facility] CARD R53.83,E10.43 [id number] 01/16/2017 12:25:00 01/18/2017 11:47:00 DIS Inpatient NEVAEH LANIER MD [facility] 4TH N/V INSULIN REQUIRED DIABETES [id number] 01/25/2016 15:19:00 01/25/2016 19:23:00 DIS Emergency THOMAS HERNANDEZ MD [facility] ER MIGRAINE/STOMACH PAIN [id number] 12/21/2015 09:28:00 12/21/2015 23:59:59 CLS Outpatient JF KHALIL MD [facility] CARD INTRACTABLE NAUSEA/ VOMITING,GASTRITIS [id number] 11/26/2015 13:40:00 11/30/2015 16:40:00 DIS Outpatient SANDRA VALDEZ DO [facility] SDC PERSISTANT VOMITING HEMATEMESIS [id number] 10/26/2015 20:19:00 10/29/2015 08:38:00 DIS Inpatient RUBIO MEZA DO [facility] 4TH ABD PAIN,INTRACTABLE N/V [id number] 08/21/2015 13:57:00 08/22/2015 11:26:00 DIS Inpatient RUBIO MEZA DO [facility] SURGICAL INTRACTABLE HEADACHE N/V [id number] 07/26/2015 21:39:00 07/27/2015 02:16:00 DIS Emergency JF MALIK DO [facility] ER VOMITING BLOOD [id number] 07/03/2015 01:38:00 07/04/2015 19:15:00 DIS Inpatient RUBIO MEZA DO [facility] 4TH UPPER ABDOMINAL PAIN; HEMATEMESIS;N,V,D,ACUTE [id number] 04/05/2015 15:33:00 04/05/2015 18:28:00 DIS Emergency JF MALIK DO [facility] ER VOMITING,LACK OF APPETITE [id number] 02/26/2015 00:10:00 02/26/2015 23:59:59 CLS Preadmit RUBIO MEZA DO [facility] SURG RCR PORT FLUSH [id number] 02/01/2015 13:00:00 02/25/2015 00:01:00 DIS Outpatient RUBIO MEZA DO [facility] SURG RCR PORT FLUSH [id number] 12/21/2014 12:02:00 12/21/2014 23:59:59 [facility] Outpatient MARQUITA FLOREZ DO [facility] RAD WRIST PAIN ARTHSCOLOSIS OSTEOPOROSIS [id number] 08/05/2014 17:10:00 08/07/2014 13:10:00 DIS Inpatient RUBIO MEZA DO [facility] 4TH N/V HARJINDER MEDIUS [id number] 06/09/2014 21:46:00 06/12/2014 13:00:00 DIS Inpatient RUBIO MEZA DO [facility] 4TH ADRENAL INSUFFICIENCY ,ABD PAIN,VOMITING [id number] 05/08/2014 12:49:00 05/09/2014 15:50:00 DIS Inpatient RUBIO MEZA DO [facility] 4TH NAUSEA VOMITING DEHYDRATION [id number] 03/29/2014 18:56:00 03/29/2014 21:59:00 DIS Emergency 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 [facility] ER VOMITING [id number] 03/01/2014 03:30:00 03/06/2014 09:03:00 DIS Inpatient RUBIO MEZA DO [facility] 4TH ABD PAIN;HYPOKALEMIA [id number] 02/06/2014 22:53:00 02/11/2014 16:50:00 DIS Inpatient RUBIO MEZA DO [facility] 4TH SWB-DKA,ACUTE RENAL FAILURE,VOLUME DEPLETION [id number] 02/02/2014 18:16:00 02/06/2014 22:53:00 DIS Inpatient RUBIO MEZA DO [facility] 4TH DKA, ACUTE RENAL FAILURE, VOLUME DEPLETION [id number] 01/17/2014 15:36:00 01/20/2014 13:15:00 DIS Inpatient RUBIO MEZA DO [facility] 4TH HYPERGLYCEMIA, NAUSEA /VOMITING, HYPOKALEMIA [id number] 12/18/2013 17:12:00 12/19/2013 09:40:00 DIS Inpatient RUBIO MEZA DO [facility] 4TH VIRAL GASTROENTERITIS [id number] 08/22/2013 11:21:00 08/22/2013 23:59:59 CLS Outpatient PRIYA LIAO, AMANDA Almanzar [facility] RAD HEMATURIA [id number] 01/18/2018 15:35:00 ACT Emergency ANDRES LIAO, MARQUITA Fang [facility] ER HEADACHE/STOMACH PAIN [id number] 12/29/2016 13:05:00 Document Registration [id number] 12/24/2014 10:06:00 Document Registration [id number] 02/25/2013 13:22:00 Document Registration [id number] 12/11/2012 13:41:00 Document Registration [id number] 11/17/2012 19:39:00 Document Registration
[2018-01-18 19:45] VITALS: BP 182/97
[2018-01-18] MEDS ORDERED: NS IV 1000 ML 1,000 ML IV SCH ×2 (20:44→22:15)
[2018-01-18] MEDS ORDERED: KETOROLAC 30 MG/ML VIAL IVP STA (20:44)
[2018-01-18] MEDS ORDERED: ONDANSETRON 4 MG/2 ML (SDV) Z0FRAN IVP ONE ×2 (20:45→22:15)
--- NOTE | 2018-01-18 21:57 | ED Headache ---
General Chief Complaint: Abdominal/GI Problems Stated Complaint: HEADACHE/STOMACH PAIN Nursing Triage Note: Pt c/o upper abd pain and n/v/d starting this morning. Pt reports hx diabetes and states surgar was 212 before leaving house. Pt states her sugars were in the 500s yesterday. Pt also c/o headache. Nursing Sepsis Screen: No Definite Risk Source: patient, spouse Exam Limitations: no limitations History of Present Illness Date Seen by Provider: Jan 18, 2018 Time Seen by Provider: 21:42 Allergies and Home Medications Allergies Coded Allergies: Sulfa (Sulfonamide Antibiotics) (Verified Allergy, Unknown, 11/26/15) Home Medications Albuterol Sulfate 18 Gm Hfa.aer.ad, 2 PUFF IH Q6H PRN for SHORTNESS OF BREATH, ( Reported) Alprazolam 1 Mg Tablet, 1 MG PO DAILY PRN for ANXIETY, (Reported) Atorvastatin Calcium 40 Mg Tablet, 40 MG PO HS, (Reported) Carbamazepine 200 Mg Tab.er.12h, 200 MG PO DAILY, (Reported) Clindamycin HCl 300 Mg Capsule, 300 MG PO QID Prescribed by: LOUISA MACE on 10/08/17 1521 Dextroamphetamine/Amphetamine 20 Mg Tablet, 20 MG PO BID, (Reported) Duloxetine HCl 60 Mg Capsule.dr, 60 MG PO BID, (Reported) Estrogens, Conjugated 0.625 Mg Tablet, 0.625 MG PO DAILY, (Reported) Fesoterodine Fumarate 4 Mg Tab.sr.24h, 4 MG PO DAILY, (Reported) Fludrocortisone Acetate 0.1 Mg Tab, 0.1 MG PO BID, (Reported) Fluticasone Propionate 16 Gm Universal.susp, 1 SPRAY NSEACH BID PRN for ALLERGIES, ( Reported) Glucagon,Human Recombinant 1 Mg/Kit Soln, UD PRN for BLOOD SUGAR, (Reported) Hydrocodone/Acetaminophen 1 Each Tablet, 1 TAB PO QID PRN for PAIN, (Reported) Hydroxychloroquine Sulfate 200 Mg Tablet, 200 MG PO DAILY, (Reported) Hyoscyamine Sulfate 0.125 Mg Tab.subl, 0.125 MG SL Q6H PRN for SPASMS Prescribed by: LOUISA MACE on 09/22/17 2157 Insulin Degludec 100 Unit/1 Ml Insuln.pen, 17 UNITS SQ HS, (Reported) Insulin Lispro 100 Unit/1 Ml Insuln.pen, 4-6 UNITS SQ AC, (Reported) Levothyroxine Sodium 137 Mcg Tablet, 137 MCG PO DAILY, (Reported) Lorazepam 1 Mg Tablet, 1 MG PO TID PRN for ANXIETY, (Reported) Magnesium Oxide 400 Mg Tablet, 400 MG PO HS, (Reported) Metoclopramide HCl 10 Mg Tablet, 10 MG PO QID, (Reported) Montelukast Sodium 10 Mg Tablet, 10 MG PO DAILY, (Reported) Ondansetron 8 Mg Tab.rapdis, 8 MG PO Q6H PRN for NAUSEA/VOMITING-1ST LINE Prescribed by: LOUISA MACE on 12/24/172104 Pantoprazole Sodium 40 Mg Tablet.dr, 40 MG PO DAILY, (Reported) Potassium Chloride 10 Meq Capsule.er, 10 MEQ PO DAILY, (Reported) Pregabalin 150 Mg Capsule, 150 MG PO BID, (Reported) Promethazine HCl 25 Mg Supp.rect, 25 MG RC Q6H PRN for NAUSEA/VOMITING-1ST LINE Prescribed by: LOUISA MACE on 09/22/172056 Promethazine HCl 25 Mg Tablet, 25 MG PO Q6H PRN for NAUSEA/VOMITING Prescribed by: CARA LEWIS on 11/02/17 182 Rizatriptan Benzoate 10 Mg Tablet, 10 MG PO DAILY PRN for MIGRAINE, (Reported) Sucralfate 1 Gm/10 Ml Oral.susp, 1 GM PO QID PRN for STOMACH UPSET, (Reported) Tizanidine HCl 4 Mg Tablet, 4 MG PO TID PRN for MUSCLE SPASMS, (Reported) Zolpidem Tartrate 10 Mg Tablet, 10 MG PO HS, (Reported) Past Xebeoju-Caupcm-Xzzytt Hx Patient Social History Alcohol Use: Denies Use Recreational Drug Use: No Smoking Status: Never a Smoker 2nd Hand Smoke Exposure: No Recent Foreign Travel: No Contact w/Someone Who Travel: No Recent Infectious Disease Expo: No Recent Hopitalizations: No Immunizations Up To Date Tetanus Booster (TDap): More than 5yrs Date of Pneumonia Vaccine: Aug 19, 2014 Date of Influenza Vaccine: Aug 22, 2017 Seasonal Allergies Seasonal Allergies: No Surgeries History of Surgeries: Yes (PORT,CARPAL TUNNEL, R.HIP, BILAT SHOULDER SURGERY, port placement) Surgeries: Eye Surgery, Gallbladder, Hysterectomy, Orthopedic, Vascular Surgery Respiratory History of Respiratory Disorde: Yes Respiratory Disorders: Asthma Currently Using CPAP: No Currently Using BIPAP: No Cardiovascular History of Cardiac Disorders: Yes Cardiac Disorders: High Cholesterol, Hypertension Neurological History of Neurological Disord: Yes Neurological Disorders: Concussion, Headaches /Migraines, Neuropathy, Seizure Disorder, Traumatic Brain Injury Reproductive System Hx Reproductive Disorders: No Sexually Transmitted Disease: No HIV/AIDS: No Female Reproductive Disorders: Denies 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 Genitourinary History of Genitourinary Disor: Yes (UTI) Gastrointestinal History of Gastrointestinal Di: Yes (GASTROPARESIS WITH CHRONIC N/V) Gastrointestinal Disorders: Ulcer Musculoskeletal History of Musculoskeletal Dis: Yes Musculoskeletal Disorders: Arthritis Endocrine History of Endocrine Disorders: Yes (ADRENAL DISEASE) Endocrine Disorders: Diabetes, Insulin dep, Hypothyroidsim HEENT History of HEENT Disorders: Yes HEENT Disorders: Chronic Ear Infection Loss of Vision: Denies Hearing Impairment: Denies Cancer History of Cancer: No Psychosocial History of Psychiatric Problem: Yes Behavioral Health Disorders: Anxiety, Depression Integumentary History of Skin or Integumenta: No Blood Transfusions History of Blood Disorders: No Adverse Reaction to a Blood Tr: No Family Medical History Significant Family History: No Pertinent Family Hx, Cancer Family Medial History: Alcoholism 09 BROTHER Cancer 03 MOTHER (PANCREATIC CA) Myocardial infarction 03 MOTHER Physical Exam Vital Signs Vital Signs - First Documented 01/18/18 16:53 Temp 98.2 Pulse 93 Resp 18 B/P (MAP) 121/76 (91) Pulse Ox 98 O2 Delivery Room Air Capillary Refill : Less Than 3 Seconds Progress/Results/Core Measures Results/Orders Lab Results Laboratory Tests Test 01/18/18 16:58 01/18/18 20:53 Range/Units Glucometer 311 H 291 H 70-110 MG/DL My Orders Orders - LOUISA MACE Saline Lock/Iv-Start (01/18/18 20:44) Ns Iv 1000 Ml (Sodium Chloride 0.9%) (01/18/18 20:44) Ondansetron Injection (Zofran Injectio (01/18/18 20:45) Ketorolac Injection (Toradol Injection) (01/18/18 20:44) Accucheck Stat ONCE (01/18/18 20:44) Ns Iv 1000 Ml (Sodium Chloride 0.9%) (01/18/18 22:15) Ondansetron Injection (Zofran Injectio (01/18/18 22:15) Morphine Injection (Morphine Injection (01/18/18 22:15) Medications Given in ED Current Medications Medications Dose Ordered Sig/Reva Route Start Time Stop Time Status Last Admin Dose Admin Ondansetron HCl 4 mg ONCE ONCE IVP 01/18/18 20:45 01/18/18 20:46 DC 01/18/18 21:05 4 MG Ondansetron HCl 4 mg ONCE ONCE IVP 01/18/18 22:15 01/18/18 22:17 DC 01/18/18 22:27 4 MG Vital Signs/I&O Vital Sign - Last 12Hours 01/18/18 01/18/18 01/18/18 16:53 19:45 22:27 Temp 98.2 98.2 Pulse 93 93 Resp 18 22 B/P (MAP) 121/76 (91) 182/97 (125) Pulse Ox 98 97 O2 Delivery Room Air Room Air Blood Pressure Mean: 125 Point of Care Testing Finger Stick Blood Glucose: 291 Blood Glucose Action Taken: DR AND RN NOTIFIED Departure Impression Impression: Primary Impression: CHRONIC NAUSEA AND VOMITING Additional Impression: Chronic headache Disposition: 01 HOME, SELF-CARE Condition: Improved Departure-Patient Inst. Decision time for Depature: 23:35 Referrals: RUBIO MEZA DO (PCP/Family) Primary Care Physician Patient Instructions: Chronic Pain (DC), Gastroparesis (Delayed Gastric Emptying) (DC), Headache, Adult (DC) Add. Discharge Instructions: All discharge instructions reviewed with patient and/or family. Voiced understanding. Continue usual medications. Drink plenty fluids. Monitor Blood sugars closely. Follow-up with Dr. Meza as an outpatient for recheck this week, call for appointment time. Discuss possible need for referral to a sider mechanic and an recruiting assistant for further evaluation and management. Return to the emergency department for worsened symptoms, fever, vomiting blood , black stools, rectal bleeding, or any other concerns. LOUISA MACE Jan 18, 2018 21:57
[2018-01-18] MEDS ORDERED: morphine INJ 10 MG/ML 1ML (SYR OR VIAL) IVP STA (22:15)
[2018-01-18 23:55] VITALS: BP 135/69
== END 2018-01-18 23:55 | disposition home or self-care (01) ==
LOC: EDUNIT# 15:33 → ER 15:35
DX: R11.2 Nausea with vomiting, unspecified (principal); R51 Headache; F41.9 Anxiety disorder, unspecified; F32.9 Major depressive disorder, single episode, unspecified; G40.909 Epilepsy, unspecified, not intractable, without status epilepticus; E78.00 Pure hypercholesterolemia, unspecified; I10 Essential (primary) hypertension; J45.909 Unspecified asthma, uncomplicated; E11.40 Type 2 diabetes mellitus with diabetic neuropathy, unspecified; E03.9 Hypothyroidism, unspecified; Z87.19 Personal history of other diseases of the digestive system; Z90.710 Acquired absence of both cervix and uterus; Z87.820 Personal history of traumatic brain injury; Z79.4 Long term (current) use of insulin; Z88.2 Allergy status to sulfonamides
CPT/HCPCS: 82962; 96361; 96374; 96375; 96376

== ENCOUNTER → 2018-02-08 | Outpatient (CLI) | payer BC, MEDICARE, MEDICAID ==
[~2018-02-08] VITALS: Ht 165.1 cm; Wt 59.0 kg
[2018-02-08 14:05] VITALS: BP 149/88
== END ==
LOC: SDC 13:50
PROVIDERS: ATTEND Nurse Practitioner Family
DX: Z45.2 Encounter for adjustment and management of vascular access device (principal)
CPT/HCPCS: 96523

== ENCOUNTER → 2018-02-25 | Outpatient (CLI) | payer BC, MEDICARE, MEDICAID ==
[~2018-02-25] MED LIST changes: +IOHEXOL 300 MG/ML 50 ML (OMNIPAQUE 300) VIAL IV ONE
--- NOTE | 2018-02-25 16:00 | Diagnostic Imaging Report ---
INDICATION: Dysfunctional Port-A-Cath. PROCEDURE: Patient was brought to the fluoroscopy suite and placed on the table in the supine position. The patient's left chest wall port was accessed. Tablet Machine Operator radiograph demonstrates a left chest wall port with tip overlying the SVC. No kinking or interruption of the tubing is seen. Next, attempts were made to aspirate blood however this was unsuccessful. Small amount of Omnipaque-300 contrast was injected under fluoroscopic observation. Contrast did pass through the catheter. There is flow of contrast from the catheter tip. There is mild collection of contrast at the catheter tip, perhaps owing to a fibrin sheath. No abnormal accumulation of extravasated contrast is seen. 35 seconds of fluoroscopy time was utilized. IMPRESSION: Probable fibrin sheath noted at the tip of the [id number] catheter. We were unable to aspirate blood. However, there was normal antegrade injection of contrast through the catheter with passage of contrast into the superior vena cava. Dictated by: Dictated on workstation # [id number]
== END ==
LOC: RAD 14:05
PROVIDERS: ATTEND Internal Medicine
DX: T82.594A Other mechanical complication of infusion catheter, initial encounter (principal)
CPT/HCPCS: 36598

== ENCOUNTER 2018-03-17 17:42 | Emergency (ER) | payer BC, MEDICARE, MEDICAID ==
[~2018-03-17] VITALS: Ht 165.1 cm; Wt 67.6 kg
[~2018-03-17 17:42] MED LIST changes: -FLUT16SP22 NSEACH; -IOHEXOL 300 MG/ML 50 ML (OMNIPAQUE 300) VIAL IV ONE
[2018-03-17] MEDS ORDERED: PROMETHAZINE INJ 25 MG/ML (PHENERGAN) AMP IM ONE (19:45)
[2018-03-17] MEDS ORDERED: KETOROLAC 30 MG/ML VIAL IM ONE (19:45)
[2018-03-17] MEDS ORDERED: ACETAMINOPHEN 500 MG TAB (TYLENOL) PO ONE (19:45)
[2018-03-17] MEDS ORDERED: diphenhydrAMINE 50 MG/ML INJ (BENADRYL) IM ONE (19:45)
[2018-03-17] MEDS ORDERED: PROCHLORPERAZINE 10 MG/2ML INJ (COMPAZINE) IM ONE (19:45)
--- NOTE | 2018-03-17 19:46 | ED Headache ---
General Chief Complaint: General Problems/Pain Stated Complaint: LEG PAIN,ABD PAIN Nursing Triage Note: PT TO ED W/ C/O CHRONIC ABDOMINAL ET LEG PAIN ET ROWE ONSET LAST NOC, WORSE TODAY. Nursing Sepsis Screen: No Definite Risk Source: patient, spouse Exam Limitations: no limitations History of Present Illness Date Seen by Provider: Mar 17, 2018 Time Seen by Provider: 19:41 Initial Comments Patient presents with a history of yesterday starting to have a headache that is her usual migraine pattern headache that resulted in nausea vomiting causing her upper abdomen to hurt and inability to take her medications. She took some ondansetron once yesterday and once again this afternoon and has not broke her nausea. She has workup outpatient scheduled in the following week or 2 to see a specialist but this is an ongoing migraine pattern for the last several years. She has diabetes and her significant other has been carefully managing her blood sugar and he says 3 hours ago was about 173. She says she is not eating or drinking much because of the nausea. She has worsening peripheral neuropathy because she's not been able to keep her neuropathic pain meds down. She says she has to come to the ER about once a month get this broke. She says what helps the most was IV Xanax. Allergies and Home Medications Allergies Coded Allergies: Sulfa (Sulfonamide Antibiotics) (Verified Allergy, Unknown, 11/26/15) Home Medications Albuterol Sulfate 18 Gm Hfa.aer.ad, 2 PUFF IH Q6H PRN for SHORTNESS OF BREATH, ( Reported) Alprazolam 1 Mg Tablet, 1 MG PO DAILY PRN for ANXIETY, (Reported) Atorvastatin Calcium 40 Mg Tablet, 40 MG PO HS, (Reported) Carbamazepine 200 Mg Tab.er.12h, 200 MG PO DAILY, (Reported) Clindamycin HCl 300 Mg Capsule, 300 MG PO QID Prescribed by: LOUISA MACE on 10/08/17 1521 Dextroamphetamine/Amphetamine 20 Mg Tablet, 20 MG PO BID, (Reported) Duloxetine HCl 60 Mg Capsule.dr, 60 MG PO BID, (Reported) Estrogens, Conjugated 0.625 Mg Tablet, 0.625 MG PO DAILY, (Reported) Fesoterodine Fumarate 4 Mg Tab.sr.24h, 4 MG PO DAILY, (Reported) Fludrocortisone Acetate 0.1 Mg Tab, 0.1 MG PO BID, (Reported) Fluticasone Propionate 16 Gm [place].susp, 1 SPRAY NSEACH BID PRN for ALLERGIES, ( Reported) Glucagon,Human Recombinant 1 Mg/Kit Soln, UD PRN for BLOOD SUGAR, (Reported) Hydrocodone/Acetaminophen 1 Each Tablet, 1 TAB PO QID PRN for PAIN, (Reported) Hydroxychloroquine Sulfate 200 Mg Tablet, 200 MG PO DAILY, (Reported) Hyoscyamine Sulfate 0.125 Mg Tab.subl, 0.125 MG SL Q6H PRN for SPASMS Prescribed by: LOUISA MACE on 09/22/172156 Insulin Degludec 100 Unit/1 Ml Insuln.pen, 17 UNITS SQ HS, (Reported) Insulin Lispro 100 Unit/1 Ml Insuln.pen, 4-6 UNITS SQ AC, (Reported) Levothyroxine Sodium 137 Mcg Tablet, 137 MCG PO DAILY, (Reported) Lorazepam 1 Mg Tablet, 1 MG PO TID PRN for ANXIETY, (Reported) Magnesium Oxide 400 Mg Tablet, 400 MG PO HS, (Reported) Metoclopramide HCl 10 Mg Tablet, 10 MG PO QID, (Reported) Montelukast Sodium 10 Mg Tablet, 10 MG PO DAILY, (Reported) Ondansetron 8 Mg Tab.rapdis, 8 MG PO Q6H PRN for NAUSEA/VOMITING-1ST LINE Prescribed by: LOUISA MACE on 12/24/172104 Pantoprazole Sodium 40 Mg Tablet.dr, 40 MG PO DAILY, (Reported) Potassium Chloride 10 Meq Capsule.er, 10 MEQ PO DAILY, (Reported) Pregabalin 150 Mg Capsule, 150 MG PO BID, (Reported) Promethazine HCl 25 Mg Supp.rect, 25 MG RC Q6H PRN for NAUSEA/VOMITING-1ST LINE Prescribed by: LOUISA MACE on 09/22/172056 Promethazine HCl 25 Mg Tablet, 25 MG PO Q6H PRN for NAUSEA/VOMITING Prescribed by: CARA LEWIS on 11/02/171819 Rizatriptan Benzoate 10 Mg Tablet, 10 MG PO DAILY PRN for MIGRAINE, (Reported) Sucralfate 1 Gm/10 Ml Oral.susp, 1 GM PO QID PRN for STOMACH UPSET, (Reported) Tizanidine HCl 4 Mg Tablet, 4 MG PO TID PRN for MUSCLE SPASMS, (Reported) Zolpidem Tartrate 10 Mg Tablet, 10 MG PO HS, (Reported) Patient Home Medication List Home Medication List Reviewed: Yes Review of Systems Constitutional: No chills, No diaphoresis Eyes: Denies Blindness, Denies Blurred Vision, Denies Drainage; Photophobia Ears, Nose, Mouth, Throat: denies ear pain, denies nose pain, denies epistaxis Respiratory: No cough, No phlegm, No short of breath, No wheezing Cardiovascular: No chest pain, No edema Gastrointestinal: abdominal pain (all over); No constipation, No diarrhea; nausea, vomiting Genitourinary: No discharge, No dysuria Musculoskeletal: No back pain, No joint pain Skin: No pruritus, No rash Psychiatric/Neurological: Headache; Denies Numbness, Denies Paresthesia, Denies Seizure Past Maihftg-Oykvpp-Uwusyh Hx Patient Social History Alcohol Use: Denies Use Recreational Drug Use: No Smoking Status: Never a Smoker 2nd Hand Smoke Exposure: No Recent Foreign Travel: No Contact w/Someone Who Travel: No Recent Infectious Disease Expo: No Recent Hopitalizations: No Physical Abuse: No Sexual Abuse: No Mistreated: No Fear: No Immunizations Up To Date Tetanus Booster (TDap): More than 5yrs Date of Pneumonia Vaccine: Aug 19, 2014 Date of Influenza Vaccine: Aug 22, 2017 Seasonal Allergies Seasonal Allergies: No Past Medical History Surgeries: Yes (PORT,CARPAL TUNNEL, R.HIP, BILAT SHOULDER SURGERY, port placement) Eye Surgery, Gallbladder, Hysterectomy, Orthopedic, Vascular Surgery Respiratory: Yes Asthma Currently Using CPAP: No Currently Using BIPAP: No Cardiac: Yes High Cholesterol, Hypertension Neurological: Yes Concussion, Headaches /Migraines, Neuropathy, Seizure Disorder, Traumatic Brain Injury Reproductive Disorders: No Female Reproductive Disorders: Denies 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 CHRONIC ABDOMINAL PAIN. ) Ulcer Musculoskeletal: Yes Arthritis Endocrine: Yes (ADRENAL DISEASE) Diabetes, Insulin dep, Hypothyroidsim HEENT: Yes Chronic Ear Infection Loss of Vision: Denies Hearing Impairment: Denies Cancer: No Psychosocial: Yes Anxiety, Depression Nursing Suicide Risk Score: 0 Integumentary: No Blood Disorders: No Adverse Reaction/Blood Tranf: No Family Medical History Alcoholism 09 BROTHER Cancer 03 MOTHER (PANCREATIC CA) Myocardial infarction 03 MOTHER No Pertinent Family Hx, Cancer Physical Exam Vital Signs Vital Signs - First Documented 03/17/18 19:13 Temp 96.5 Pulse 82 Resp 20 B/P (MAP) 162/82 (108) Pulse Ox 98 O2 Delivery Room Air Capillary Refill : Less Than 3 Seconds General Appearance: WD/WN, no apparent distress, other (anxious) HEENT: PERRL/EOMI, normal ENT inspection, pharynx normal Neck: non-tender, full range of motion, normal inspection Cardiovascular: normal peripheral pulses, regular rate, rhythm Respiratory: chest non-tender, lungs clear, normal breath sounds, no respiratory distress, no accessory muscle use Gastrointestinal: normal bowel sounds, soft, no organomegaly; No distended; guarding (voluntary all 4 quads), tenderness (x4 quads) Extremities: non-tender, normal inspection, normal capillary refill Psychiatric: alert, oriented x 3 Skin: normal color, warm/dry Progress/Results/Core Measures My Orders Orders - CARA LEWIS Diphenhydramine Injection (Benadryl Inje (03/17/18 19:45) Ketorolac Injection (Toradol Injection) (03/17/18 19:45) Prochlorperazine Injection (Compazine In (03/17/18 19:45) Promethazine Injection (Phenergan Injec (03/17/18 19:45) Acetaminophen Tablet (Tylenol Tablet) (03/17/18 19:45) Vital Signs/I&O 03/17/18 19:13 Temp 96.5 Pulse 82 Resp 20 B/P (MAP) 162/82 (108) Pulse Ox 98 O2 Delivery Room Air Blood Pressure Mean: 108 Progress Note : Time: 19:45 Progress Note Patient has normal vital signs, afebrile presents with her typical migraine presentation. She is known to this provider and was seen last by me in October. She's been seen twice since by other providers. She has ongoing workup for her chronic problems and we will try and get her nausea reduced and under control as well as her headache so she can go home get some sleep and then become rehydrated and resume taking her referral neuropathy medicines. It is inappropriate to give opiates for migraine management. Is also inappropriate to give benzodiazepines for neuropathic pain. Departure Impression Primary Impression: Migraine headache Qualified Codes: G43.009 - Migraine without aura, not intractable, without status migrainosus Additional Impressions: Nausea and vomiting Qualified Codes: R11.2 - Nausea with vomiting, unspecified Chronic painful diabetic neuropathy Disposition: 01 HOME, SELF-CARE Condition: Stable Departure-Patient Inst. Decision time for Depature: 19:47 Referrals: RUBIO MEZA DO (PCP/Family) Primary Care Physician Patient Instructions: Abdominal Migraine (DC) Add. Discharge Instructions: In addition to your ondansetron which she should be taking every 6 hours if you' re having nausea and allowing it to dissolve on your tongue you should also take a Phenergan tablet every 6 hours as needed for nausea which we will send a prescription to the pharmacy for you. Keep your follow-up appointments with the specialist. Get some sleep tonight All discharge instructions reviewed with patient and/or family. Voiced understanding. Scripts Promethazine HCl (Promethazine Tablet) 25 Mg Tablet 25 MG PO Q6H PRN for NAUSEA/VOMITING, #20 TAB 0 Refills Prov: ACRA LEWIS 03/17/18 CARA LEWIS Mar 17, 2018 19:46
[2018-03-17] MEDS ORDERED: PROM25TA14 PO (19:48)
[2018-03-17 20:46] VITALS: BP 143/80
== END 2018-03-17 20:46 | disposition home or self-care (01) ==
LOC: EDUNIT# 17:42 → ER 17:43
DX: G43.009 Migraine without aura, not intractable, without status migrainosus (principal); E11.40 Type 2 diabetes mellitus with diabetic neuropathy, unspecified; R11.2 Nausea with vomiting, unspecified; J45.909 Unspecified asthma, uncomplicated; E78.00 Pure hypercholesterolemia, unspecified; I10 Essential (primary) hypertension; G40.909 Epilepsy, unspecified, not intractable, without status epilepticus; F41.9 Anxiety disorder, unspecified; F32.9 Major depressive disorder, single episode, unspecified; Z79.4 Long term (current) use of insulin; Z87.820 Personal history of traumatic brain injury; Z80.0 Family history of malignant neoplasm of digestive organs; Z82.49 Family history of ischemic heart disease and other diseases of the circulatory system; Z90.710 Acquired absence of both cervix and uterus; Z87.19 Personal history of other diseases of the digestive system; Z87.440 Personal history of urinary (tract) infections; Z88.2 Allergy status to sulfonamides; Z79.51 Long term (current) use of inhaled steroids
CPT/HCPCS: 96372; 99284

== ENCOUNTER → 2018-03-21 | Outpatient (CLI) | payer BC, MEDICARE, MEDICAID ==
[~2018-03-21] VITALS: Ht 165.1 cm; Wt 67.6 kg
[~2018-03-21] MED LIST changes: +ALTEPLASE 2 MG (CATHFLO) IV ONE; +CATHETER FLUSH 10 ML SYR IV PRN; +CETI-214 PO; +CHOL5000 PO; +CLOB15CR2 TOP; +DICL100G18 TOP; +EST30C; +LEVO175T5 PO; +LIDO30CR20 TOP; +MULT-985 PO; +NYST60PO TOP; +[UNRECOGNIZED DRUG - OTHER] PO
[2018-03-21 13:05] VITALS: BP 138/73
[2018-03-21] MEDS: ALTEPLASE 2 MG (CATHFLO) ONE (13:05)
[2018-03-21 15:20] VITALS: BP 138/73
--- NOTE | 2018-03-27 08:49 | Physician Query-Final Dx ---
DARBY SANDERS 03/27/18 0849: Clinic Account Progress/Dx Physician Query: Please give diagnosis Date of Service March 21, 2018 at 12:27 Progress Note: Darby [phone] ADALGISA RICK DO 04/08/18 2202: Clinic Account Progress/Dx Physician Query: Please give diagnosis DIAGNOSIS: Diagnosis malfunctioning port DARBY SANDERS March 27, 2018 08:49 ADALGISA RICK DO April 08, 2018 22:02
== END ==
LOC: SDC 12:27
PROVIDERS: ATTEND Surgery
DX: T82.518A Breakdown (mechanical) of other cardiac and vascular devices and implants, initial encounter (principal)
CPT/HCPCS: 36593

== ENCOUNTER 2018-04-20 17:35 | Observation (INO) | payer BC, MEDICARE, MEDICAID ==
[~2018-04-20] VITALS: Ht 165.1 cm; Wt 65.9 kg
[~2018-04-20 17:35] MED LIST changes: -ALTEPLASE 2 MG (CATHFLO) IV ONE; -CATHETER FLUSH 10 ML SYR IV PRN; -CETI-214 PO; -CHOL5000 PO; -CLOB15CR2 TOP; -DICL100G18 TOP; -EST30C; -LEVO175T5 PO; -LIDO30CR20 TOP; -MULT-985 PO; -NYST60PO TOP; -[UNRECOGNIZED DRUG - OTHER] PO
[2018-04-20] MEDS ORDERED: NS IV 1000 ML 1,000 ML IV SCH ×2 (19:10→20:31)
[2018-04-20] MEDS ORDERED: KETOROLAC 30 MG/ML VIAL IVP ONE (19:15)
[2018-04-20] MEDS ORDERED: ONDANSETRON 4 MG/2 ML (SDV) Z0FRAN IVP ONE (19:15)
--- NOTE | 2018-04-20 19:17 | ED Abdominal Pain ---
General Stated Complaint: N/V, CHILLS, CANT KEEP MEDICINE DOWN Source of Information: Patient, Spouse Exam Limitations: No Limitations History of Present Illness Date Seen by Provider: Apr 20, 2018 Time Seen by Provider: 19:00 Initial Comments The patient presents to the ER by private conveyance with 2 days history of nausea vomiting diarrhea with last bowel moment being yesterday. She's had no fevers or chills and her Phenergan and ondansetron at home are not helping her. She has not seen her primary care provider for this. She has pain in her belly all over. She is a history of gallbladder and appendix removed. She's also had a hysterectomy. She is nauseated now. Allergies and Home Medications Allergies Coded Allergies: Sulfa (Sulfonamide Antibiotics) (Verified Allergy, Unknown, 11/26/15) Home Medications Albuterol Sulfate 18 Gm Hfa.aer.ad, 2 PUFF IH Q6H PRN for SHORTNESS OF BREATH, ( Reported) Alprazolam 1 Mg Tablet, 1 MG PO DAILY PRN for ANXIETY, (Reported) Atorvastatin Calcium 40 Mg Tablet, 40 MG PO HS, (Reported) Carbamazepine 200 Mg Tab.er.12h, 200 MG PO DAILY, (Reported) Clindamycin HCl 300 Mg Capsule, 300 MG PO QID Prescribed by: LOUISA MACE on 10/08/17 1521 Dextroamphetamine/Amphetamine 20 Mg Tablet, 20 MG PO BID, (Reported) Duloxetine HCl 60 Mg Capsule.dr, 60 MG PO BID, (Reported) Estrogens, Conjugated 0.625 Mg Tablet, 0.625 MG PO DAILY, (Reported) Fesoterodine Fumarate 4 Mg Tab.sr.24h, 4 MG PO DAILY, (Reported) Fludrocortisone Acetate 0.1 Mg Tab, 0.1 MG PO BID, (Reported) Fluticasone Propionate 16 Gm [place].susp, 1 SPRAY NSEACH BID PRN for ALLERGIES, ( Reported) Glucagon,Human Recombinant 1 Mg/Kit Soln, UD PRN for BLOOD SUGAR, (Reported) Hydrocodone/Acetaminophen 1 Each Tablet, 1 TAB PO QID PRN for PAIN, (Reported) Hydroxychloroquine Sulfate 200 Mg Tablet, 200 MG PO DAILY, (Reported) Hyoscyamine Sulfate 0.125 Mg Tab.subl, 0.125 MG SL Q6H PRN for SPASMS Prescribed by: LOUISA MACE on 09/22/172156 Insulin Degludec 100 Unit/1 Ml Insuln.pen, 17 UNITS SQ HS, (Reported) Insulin Lispro 100 Unit/1 Ml Insuln.pen, 4-6 UNITS SQ AC, (Reported) Levothyroxine Sodium 137 Mcg Tablet, 137 MCG PO DAILY, (Reported) Lorazepam 1 Mg Tablet, 1 MG PO TID PRN for ANXIETY, (Reported) Magnesium Oxide 400 Mg Tablet, 400 MG PO HS, (Reported) Metoclopramide HCl 10 Mg Tablet, 10 MG PO QID, (Reported) Montelukast Sodium 10 Mg Tablet, 10 MG PO DAILY, (Reported) Ondansetron 8 Mg Tab.rapdis, 8 MG PO Q6H PRN for NAUSEA/VOMITING-1ST LINE Prescribed by: LOUISA MACE on 12/24/172104 Pantoprazole Sodium 40 Mg Tablet.dr, 40 MG PO DAILY, (Reported) Potassium Chloride 10 Meq Capsule.er, 10 MEQ PO DAILY, (Reported) Pregabalin 150 Mg Capsule, 150 MG PO BID, (Reported) Promethazine HCl 25 Mg Supp.rect, 25 MG RC Q6H PRN for NAUSEA/VOMITING-1ST LINE Prescribed by: LOUISA MACE on 09/22/172056 Promethazine HCl 25 Mg Tablet, 25 MG PO Q6H PRN for NAUSEA/VOMITING Prescribed by: CARA LEWIS on 11/02/17 182 Promethazine HCl 25 Mg Tablet, 25 MG PO Q6H PRN for NAUSEA/VOMITING Prescribed by: CARA LEWIS on 03/17/18 194 Rizatriptan Benzoate 10 Mg Tablet, 10 MG PO DAILY PRN for MIGRAINE, (Reported) Sucralfate 1 Gm/10 Ml Oral.susp, 1 GM PO QID PRN for STOMACH UPSET, (Reported) Tizanidine HCl 4 Mg Tablet, 4 MG PO TID PRN for MUSCLE SPASMS, (Reported) Zolpidem Tartrate 10 Mg Tablet, 10 MG PO HS, (Reported) Patient Home Medication List Home Medication List Reviewed: Yes Review of Systems Constitutional: No chills, No diaphoresis, No fever; malaise EENTM: No Blurred Vision, No Double Vision Respiratory: Denies Cough, Denies Shortness of Air Cardiovascular: Denies Chest Pain, Denies Edema Gastrointestinal: See HPI; Denies Abdomen Distended; Abdominal Pain, Diarrhea, Nausea, Poor Fluid Intake, Vomiting Genitourinary: Denies Burning, Denies Discharge Musculoskeletal: No back pain, No joint pain Skin: No pruritus, No rash Psychiatric/Neurological: Denies Headache, Denies Numbness, Denies Paresthesia Past [id number] Hx Patient Social History Alcohol Use: Denies Use Recreational Drug Use: No Smoking Status: Never a Smoker 2nd Hand Smoke Exposure: No Recent Foreign Travel: No Contact w/Someone Who Travel: No Recent Hopitalizations: No Immunizations Up To Date Tetanus Booster (TDap): More than 5yrs Date of Pneumonia Vaccine: Aug 19, 2014 Date of Influenza Vaccine: Aug 22, 2017 Seasonal Allergies Seasonal Allergies: No Past Medical History Surgeries: Yes (PORT,CARPAL TUNNEL, R.HIP, BILAT SHOULDER SURGERY, port placement) Eye Surgery, Gallbladder, Hysterectomy, Orthopedic, Vascular Surgery Respiratory: Yes Asthma Currently Using CPAP: No Currently Using BIPAP: No Cardiac: Yes High Cholesterol, Hypertension Neurological: Yes Concussion, Headaches /Migraines, Neuropathy, Seizure Disorder, Traumatic Brain Injury Reproductive Disorders: No Female Reproductive Disorders: Denies 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 CHRONIC ABDOMINAL PAIN. ) Ulcer Musculoskeletal: Yes Arthritis Endocrine: Yes (ADRENAL DISEASE) Diabetes, Insulin dep, Hypothyroidsim HEENT: Yes Chronic Ear Infection Loss of Vision: Denies Hearing Impairment: Denies Cancer: No Psychosocial: Yes Anxiety, Depression Integumentary: No Blood Disorders: No Adverse Reaction/Blood Tranf: No Family Medical History Alcoholism 09 BROTHER Cancer 03 MOTHER (PANCREATIC CA) Myocardial infarction 03 MOTHER No Pertinent Family Hx, Cancer Physical Exam Vital Signs Vital Signs - First Documented 04/20/18 18:50 Temp 98.8 Pulse 99 Resp 18 B/P (MAP) 146/75 (98) Pulse Ox 98 Capillary Refill : General Appearance: WD/WN, mild distress HEENT: PERRL/EOMI, normal ENT inspection, pharynx normal Neck: non-tender, full range of motion, supple, normal inspection Respiratory: chest non-tender, lungs clear, normal breath sounds, no respiratory distress, no accessory muscle use Cardiovascular: normal peripheral pulses, regular rate, rhythm, no edema Peripheral Pulses: 2+ Radial Pulses (R), 2+ Radial Pulses (L) Gastrointestinal: normal bowel sounds, soft, no organomegaly, guarding ( voluntary, right upper quadrant); No rebound; tenderness (and right upper quadrant and midepigastric) Extremities: normal range of motion, non-tender, normal inspection, no pedal edema, no calf tenderness, normal capillary refill Neurologic/Psychiatric: alert, oriented x 3, depressed affect, other Skin: normal color, warm/dry Lymphatic: no adenopathy Progress/Results/Core Measures Results/Orders Lab Results Laboratory Tests Test 04/20/18 20:00 Range/Units White Blood Count 13.9 H 4.3-11.0 10^3/uL Red Blood Count 4.21 L 4.35-5.85 10^6/uL Hemoglobin 11.0 L 11.5-16.0 G/DL Hematocrit 33 L 35-52 % Mean Corpuscular Volume 79 L 80-99 FL Mean Corpuscular Hemoglobin 26 25-34 PG Mean Corpuscular Hemoglobin Concent 33 32-36 G/DL Red Cell Distribution Width 16.0 H 10.0-14.5 % Platelet Count 250 130-400 10^3/uL Mean Platelet Volume 11.6 H 7.4-10.4 FL Neutrophils (%) (Auto) 41 L 42-75 % Lymphocytes (%) (Auto) 39 12-44 % Monocytes (%) (Auto) 8 0-12 % Eosinophils (%) (Auto) 12 H 0-10 % Basophils (%) (Auto) 0 0-10 % Neutrophils # (Auto) 5.7 1.8-7.8 X 10^3 Lymphocytes # (Auto) 5.4 H 1.0-4.0 X 10^3 Monocytes # (Auto) 1.1 H 0.0-1.0 X 10^3 Eosinophils # (Auto) 1.7 H 0.0-0.3 10^3/uL Basophils # (Auto) 0.1 0.0-0.1 10^3/uL Sodium Level 138 135-145 MMOL/L Potassium Level 3.5 L 3.6-5.0 MMOL/L Chloride Level 100 98-107 MMOL/L Carbon Dioxide Level 21 21-32 MMOL/L Anion Gap 17 H 5-14 MMOL/L Blood Urea Nitrogen 26 H 7-18 MG/DL Creatinine 2.10 H 0.60-1.30 MG/DL Estimat Glomerular Filtration Rate 24 BUN/Creatinine Ratio 12 Glucose Level 120 H 70-105 MG/DL Calcium Level 9.0 8.5-10.1 MG/DL Magnesium Level 2.0 1.8-2.4 MG/DL Total Bilirubin 0.3 0.1-1.0 MG/DL Aspartate Amino Transf (AST/SGOT) 21 5-34 U/L Alanine Aminotransferase (ALT/SGPT) 18 0-55 U/L Alkaline Phosphatase 71 40-136 U/L C-Reactive Protein High Sensitivity 0.31 0.00-0.50 MG/DL Total Protein 6.4 6.4-8.2 GM/DL Albumin 3.7 3.2-4.5 GM/DL Lipase 21 8-78 U/L My Orders Orders - CARA LEWIS Cbc With Automated Diff (04/20/18 19:10) Comprehensive Metabolic Panel (04/20/18 19:10) Hs C Reactive Protein (04/20/18 19:10) Drug Screen Stat (Urine) (04/20/18 19:10) Lipase (04/20/18 19:10) Magnesium (04/20/18 19:10) Ua Culture If Indicated (04/20/18 19:10) Saline Lock/Iv-Start (04/20/18 19:10) Ns Iv 1000 Ml (Sodium Chloride 0.9%) (04/20/18 19:10) Ondansetron Injection (Zofran Injectio (04/20/18 19:15) Ketorolac Injection (Toradol Injection) (04/20/18 19:15) Prochlorperazine Injection (Compazine In (04/20/18 19:30) Diphenhydramine Tablet (Benadryl Tablet) (04/20/18 19:30) Saline Lock/Iv-Start (04/20/18 20:31) Ns Iv 1000 Ml (Sodium Chloride 0.9%) (04/20/18 20:31) Fentanyl Injection (Sublimaze Injection (04/20/18 21:00) Medications Given in ED Current Medications Medications Dose Ordered Sig/Reva Route Start Time Stop Time Status Last Admin Dose Admin Diphenhydramine HCl 25 mg ONCE ONCE PO 6/2/18 19:30 04/20/18 19:31 DC 04/20/18 19:54 25 MG Ketorolac Tromethamine 15 mg ONCE ONCE IVP 04/20/18 19:15 04/20/18 19:16 DC 04/20/18 19:54 15 MG Ondansetron HCl 4 mg ONCE ONCE IVP 04/20/18 19:15 04/20/18 19:16 DC 04/20/18 19:54 4 MG Prochlorperazine Edisylate 10 mg ONCE ONCE IV 04/20/18 19:30 04/20/18 19:31 DC 04/20/18 19:54 10 MG Vital Signs/I&O 04/20/18 18:50 Temp 98.8 Pulse 99 Resp 18 B/P (MAP) 146/75 (98) Pulse Ox 98 Progress Progress Note : Time: 19:16 Progress Note Fairly typical, monthly presentation for her migraine headaches it results in nausea vomiting and then epigastric abdominal pain. We'll obtain basic labs give her some IV fluids, Compazine, Zofran IV and reexamine. In the past she's asked for benzos but she has benzos, amphetamines, opiates prescribed to her by her primary care doctor. Departure Impression Primary Impression: Migraine headache Qualified Codes: G43.019 - Migraine without aura, intractable, without status migrainosus Additional Impressions: Nausea & vomiting Qualified Codes: R11.2 - Nausea with vomiting, unspecified Dehydration Acute kidney injury (nontraumatic) Disposition: ADMITTED INPATIENT Condition: Stable Admissions Decision to Admit Reason: Admit from ER (General) Decision to Admit/Date: Apr 20, 2018 Time/Decision to Admit Time: 21:03 Departure-Patient Inst. Referrals: RUBIO MEZA DO (PCP/Family) Primary Care Physician Copy Copies To 1: RUBIO MEZA TITUS J Apr 20, 2018 19:17
[2018-04-20] MEDS ORDERED: PROCHLORPERAZINE 10 MG/2ML INJ (COMPAZINE) IV ONE (19:30)
[2018-04-20] MEDS ORDERED: diphenhydrAMINE 25 MG TAB (BENADRYL) PO ONE (19:30)
[2018-04-20 20:10] LABS: BASOPHILS # (AUTO) 0.1 10^3/uL (0.0-0.1); BASOPHILS % (AUTO) 0 % (0-10); EOSINOPHILS # (AUTO) 1.7 10^3/uL (0.0-0.3); EOSINOPHILS % (AUTO) 12 % (0-10); HEMATOCRIT 33 % (35-52); LYMPHOCYTES # (AUTO) 5.4 X 10^3 (1.0-4.0); LYMPHOCYTES % (AUTO) 39 % (12-44); MEAN CORPUSCULAR HEMOGLOBIN 26 PG (25-34); MEAN CORPUSCULAR HGB CONC 33 G/DL (32-36); MEAN CORPUSCULAR VOLUME 79 FL (80-99); MEAN PLATELET VOLUME 11.6 FL (7.4-10.4); MONOCYTES # (AUTO) 1.1 X 10^3 (0.0-1.0); MONOCYTES % (AUTO) 8 % (0-12); NEUTROPHILS # (AUTO) 5.7 X 10^3 (1.8-7.8); NEUTROPHILS % (AUTO) 41 % (42-75); PLATELET COUNT 250 10^3/uL (130-400); RED BLOOD COUNT 4.21 10^6/uL (4.35-5.85); WHITE BLOOD COUNT 13.9 10^3/uL (4.3-11.0)
[2018-04-20 20:30] LABS: ALBUMIN 3.7 GM/DL (3.2-4.5); BILIRUBIN,TOTAL 0.3 MG/DL (0.1-1.0); CREATININE SERUM 2.1 MG/DL (0.60-1.30); POTASSIUM 3.5 MMOL/L (3.6-5.0); TOTAL PROTEIN 6.4 GM/DL (6.4-8.2)
[2018-04-20] MEDS ORDERED: fentaNYL INJECTION 100 MCG/2 ML AMP IVP ONE (21:00)
[2018-04-20 21:20] LABS: CLARITY,URINE CLEAR; COLOR,URINE YELLOW; GLUCOSE, URINE (UA) 3+ (NEGATIVE); KETONES,URINE 3+ (NEGATIVE); LEUKOCYTE ESTERASE ,URINE 2+ (NEGATIVE); NITRITE,URINE NEGATIVE (NEGATIVE); PH,URINE 5 (5-9); PROTEIN,URINE 2+ (NEGATIVE); UROBILINOGEN,URINE NORMAL (NORMAL)
[2018-04-20 21:28] LABS: WBC,URINE 0-2 /HPF
[2018-04-20 21:29] LABS: BACTERIA,URINE TRACE /HPF; BENZODIAZEPINES SCREEN URINE POSITIVE (NEGATIVE); BILIRUBIN,URINE 1+ (NEGATIVE); COCAINE SCREEN URINE NEGATIVE (NEGATIVE); SQUAMOUS EPITHELIAL CELL,UR 25-50 /HPF
[2018-04-20 21:30] LABS: AMPHETAMINE SCREEN, URINE POSITIVE (NEGATIVE); BARBITURATE SCREEN URINE NEGATIVE (NEGATIVE); CANNABINOID SCREEN, URINE NEGATIVE (NEGATIVE); METHADONE STAT NEGATIVE (NEGATIVE); METHAMPHETAMINE SCREEN URINE S NEGATIVE (NEGATIVE); OPIATE SCREEN URINE POSITIVE (NEGATIVE); OXYCODONE STAT NEGATIVE (NEGATIVE); PROPOXYPHENE STAT NEGATIVE (NEGATIVE); TRICYCLIC ANTIDEPRESSANTS SCRE POSITIVE (NEGATIVE)
--- OUTSIDE RECORDS SUMMARY | 2018-04-20 22:01 | XMS REPORT | Continuity of Care Document ---
Author Author [facility] Organization [facility] Address Unknown Phone Unavailable Allergies Active Description Code Type Severity Reaction Onset Reported/Identified Relationship to Patient Clinical Status Yes SULFAMETHOXAZOLE-TRIMETHOPRIM SULFAMETHOXAZOLE-TRI SEVERE Yes SULFAMETHOXAZOLE-TRIMETHOPRIM SEVERE DERMATOLOGICAL - JACOBO Yes Sulfa (Sulfonamide Antibiotics) [id number] Drug Allergy Unknown N/A 2015 Medications Medication Packaging Start Date Stop Date Route Dosage Sig NORMAL SALINE 1000CC IV BAG INJ 0.9 % (NS 1000CC IV BAG) ml 11/18/2016 12/03/2016 CONTINUOUSEVERY 0 Hour PROMETHAZINE VIAL INJ 25 MG/CC (PHENERGAN VIAL) MG 11/18/2016 11/18/2016 PRN ONCE METOCLOPRAMIDE VIAL INJ 10 MG/2CC (REGLAN 2CC VIAL) MG 11/18/2016 11/18/2016 PRN ONCE PANTOPAZOLE VIAL INJ 40 MG (PROTONIX IV) MG 11/18/2016 11/18/2016 ONCE&1208 ONDANSETRON VIAL INJ 4 MG/2CC (ZOFRAN 2CC VIAL) MG 11/18/2016 11/18/2016 PRN ONCE INSULIN REGULAR HUMAN INJ 100 UNITS/CC (HUMULIN R / NOVOLIN R INSULIN) UNITS 11/18/2016 11/18/2016 ONCE&1311 KETOROLAC VIAL INJ 30 MG/CC (TORADOL VIAL) MG 11/18/2016 11/18/2016 ONCE&1515 Heparin, FLUSH IV syringe 500 units UNITS 11/18/2016 11/18/2016 ONCE&1553 SUMATRIPTAN INJ INJ 6 MG/0.5CC (IMITREX INJ) MG 11/18/2016 11/28/2016 PRN BID PROMETHAZINE VIAL INJ 25 MG/CC (PHENERGAN VIAL) MG 02/02/2017 02/02/2017 PRN ONCE DIPHENHYDRAMINE VIAL INJ 50 MG/CC (BENADRYL VIAL) MG 02/02/2017 02/02/2017 PRN ONCE KETOROLAC VIAL INJ 30 MG/CC (TORADOL VIAL) MG 02/02/2017 02/02/2017 PRN ONCE NORMAL SALINE 1000CC IV BAG INJ 0.9 % (NS 1000CC IV BAG) ml 02/02/2017 02/02/2017 ONCE&2023 FENTANYL INJ 100 MCG/2CC VIAL MCG 03/03/2017 03/03/2017 ONCE&203 PROMETHAZINE VIAL INJ 25 MG/CC (PHENERGAN VIAL) MG 03/03/2017 03/03/2017 PRN ONCE NORMAL SALINE 1000CC IV BAG INJ 0.9 % (NS 1000CC IV BAG) ml 03/03/2017 03/03/2017 ONCE&2033 KETOROLAC VIAL INJ 30 MG/CC (TORADOL VIAL) MG 03/03/2017 03/03/2017 ONCE&2217 Heparin, FLUSH IV syringe 500 units UNITS 03/03/2017 03/03/2017 ONCE&2219 Heparin, FLUSH IV syringe 500 units UNITS 04/09/2017 04/09/2017 ONCE&1132 KETOROLAC VIAL INJ 30 MG/CC (TORADOL VIAL) MG 04/09/2017 04/09/2017 ONCE&1132 PROCHLORPERAZINE VIAL INJ 10 MG/2CC (COMPAZINE VIAL) MG 04/09/2017 04/09/2017 PRN ONCE DIPHENHYDRAMINE VIAL INJ 50 MG/CC (BENADRYL VIAL) MG 04/09/2017 04/09/2017 ONCE&1132 NORMAL SALINE 500CC IV BAG INJ 0.9 % (NS 500CC IV BAG) ml 04/09/2017 04/09/2017 ONCE&1132 KETOROLAC VIAL INJ 30 MG/CC (TORADOL VIAL) MG 04/22/2017 04/22/2017 ONCE&1207 FAMOTIDINE VIAL INJ 20 MG/2CC (PEPCID VIAL) MG 04/22/2017 04/22/2017 ONCE&1208 NORMAL SALINE 1000CC IV BAG INJ 0.9 % (NS 1000CC IV BAG) ml 04/22/2017 04/22/2017 ONCE&1401 POTASSIUM CL 20MEQ VIAL INJ 20 MEQ/10CC (KCL VIAL) MEQ 04/22/2017 04/22/2017 ONCE&1404 PROCHLORPERAZINE VIAL INJ 10 MG/2CC (COMPAZINE VIAL) MG 04/22/2017 04/22/2017 ONCE&1420 PROMETHAZINE VIAL INJ 25 MG/CC (PHENERGAN VIAL) MG 04/22/2017 04/22/2017 ONCE&1748 Problems Date Dx Coded Attending Type Code [...] Ot 493.90 ASTHMA, UNSPECIFIED 12/19/2013 RUBIO MEZA DO Ot 530.81 ESOPHAGEAL REFLUX 12/19/2013 RUBIO MEZA DO Ot 715.90 OSTEOARTHROS NOS-UNSPEC 12/19/2013 RUBIO MEZA DO Ot 781.0 ABN INVOLUN MOVEMENT NEC 12/19/2013 RUBIO MEZA DO, Ot 785.0 TACHYCARDIA NOS 12/19/2013 RUBIO MEZA DO, Ot V58.67 LONG-TERM (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 01/20/2014 RUBIO MEZA DO Ot 244.9 HYPOTHYROIDISM NOS 01/20/2014 RUBOI MEZA DO Ot 250.01 DIAB DEANNA WO COMPL, TYPE I [JUVENILE TYP 01/20/2014 RUBIO MEZA DO Ot 255.41 GLUCOCORTICOID DEFICIENCY 01/20/2014 RUBIO MEZA DO, Ot 272.0 PURE HYPERCHOLESTEROLEM 01/20/2014 RUBIO MEZA DO Ot 275.2 DIS MAGNESIUM METABOLISM 01/20/2014 RUBIO MEZA DO Ot 276.51 DEHYDRATION 01/20/2014 RUBIO MEZA DO, Ot 276.8 HYPOPOTASSEMIA 01/20/2014 RUBIO MEZA DO, Ot 287.5 THROMBOCYTOPENIA NOS 01/20/2014 RUBIO MEZA DO Ot 346.90 MIGRAINE UNSPECIFIED W/O INTRACT MGRN W/ 01/20/2014 RUBIO MEZA DO Ot 356.9 IDIO PERIPH NEURPTHY NOS 01/20/2014 RUBIO MEZA DO Ot 401.9 HYPERTENSION NOS 01/20/2014 RUBIO MEZA DO Ot 493.90 ASTHMA, UNSPECIFIED 01/20/2014 RUBIO MEZA DO, Ot 530.81 ESOPHAGEAL REFLUX 01/20/2014 RUBIO MEZA DO, Ot 558.9 NONINF GASTROENTERIT NEC 01/20/2014 RUBIO MEZA DO Ot 593.9 RENAL URETERAL DIS NOS 01/20/2014 RUBIO MEZA DO, Ot 715.90 OSTEOARTHROS NOS-UNSPEC 01/20/2014 RUBIO MEZA DO, Ot V03.82 PROPHYLACTIC VACC AGAINST STREPTOCOCCUS 01/20/2014 RUBIO MEZA DO, Ot V58.67 LONG-TERM (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 02/06/2014 RUBIO MEZA DO Ot 244.9 HYPOTHYROIDISM NOS 02/06/2014 RUBIO MEZA DO, Ot 250.13 DIAB W KETOACIDOSIS, TYPE I [JUVENILE TY 02/06/2014 RUBIO MEZA DO, Ot 250.63 DIAB W NEURO MANIFEST, TYPE I [JUVENILE 02/06/2014 RUBIO MEZA DO, Ot 272.0 PURE HYPERCHOLESTEROLEM 02/06/2014 RUBIO MEZA DO Ot 276.50 VOLUME DEPLETION, UNSPECIFIED 02/06/2014 RUBIO MEZA DO, Ot 276.8 HYPOPOTASSEMIA 02/06/2014 RUBIO MEZA DO Ot 311 DEPRESSIVE DISORDER NEC 02/06/2014 RUBIO MEZA DO, Ot 346.90 MIGRAINE UNSPECIFIED W/O INTRACT MGRN W/ 02/06/2014 RUBIO MEZA DO, Ot 357.2 NEUROPATHY IN DIABETES 02/06/2014 RUBIO MEZA DO, Ot 401.9 HYPERTENSION NOS 02/06/2014 RUBIO MEZA DO Ot 413.9 ANGINA PECTORIS NEC/NOS 02/06/2014 RUBIO [...] (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 02/11/2014 RUBIO MEZA DO, Ot 244.9 HYPOTHYROIDISM NOS 02/11/2014 RUBIO MEZA DO, Ot 250.13 DIAB W KETOACIDOSIS, TYPE I [JUVENILE TY 02/11/2014 RUBIO MEZA DO, Ot 250.63 DIAB W NEURO MANIFEST, TYPE I [JUVENILE 02/11/2014 RUBIO MEZA DO, Ot 263.9 PROTEIN-CHRISTIN MALNUTR NOS 02/11/2014 RUBIO MEZA DO Ot 272.0 PURE HYPERCHOLESTEROLEM 02/11/2014 RUBIO MEZA DO, Ot 276.50 VOLUME DEPLETION, UNSPECIFIED 02/11/2014 RUBIO MEZA DO, Ot 276.8 HYPOPOTASSEMIA 02/11/2014 RUBIO MEZA DO Ot 311 DEPRESSIVE DISORDER NEC 02/11/2014 RUBIO MEZA DO Ot 346.90 MIGRAINE UNSPECIFIED W/O INTRACT MGRN W/ 02/11/2014 RUBIO MEZA DO, Ot 357.2 NEUROPATHY IN DIABETES 02/11/2014 RUBIO MEZA DO Ot 401.9 HYPERTENSION NOS 02/11/2014 RUBIO MEZA DO, Ot 413.9 ANGINA PECTORIS NEC/NOS 02/11/2014 RUBIO MEZA DO, Ot 426.4 RT BUNDLE BRANCH BLOCK 02/11/2014 RUBIO MEZA DO Ot 530.81 ESOPHAGEAL REFLUX 02/11/2014 RUBIO MEZA DO, Ot 535.50 UNSP GASTRITIS GASTRODUODENITIS W/O ME 02/11/2014 RUBIO MEZA DO, Ot 536.3 GASTROPARESIS 02/11/2014 RUBIO MEZA DO, Ot 553.3 DIAPHRAGMATIC HERNIA 02/11/2014 RUBIO MEZA DO, Ot 584.9 ACUTE RENAL FAILURE, UNSPECIFIED 02/11/2014 RUBIO MEZA DO, Ot V15.81 HX OF PAST NONCOMPLIANCE 02/11/2014 RUBIO MEZA DO, Ot V17.3 FAM HX-ISCHEM HEART DIS 03/06/2014 RUBIO MEZA DO Ot 008.8 VIRAL ENTERITIS NOS 03/06/2014 RUBIO MEZA DO Ot 250.61 DIAB W NEURO MANIFEST, TYPE I [JUVENILE 03/06/2014 RUBIO MEZA DO Ot 255.41 GLUCOCORTICOID DEFICIENCY 03/06/2014 RUBIO MEZA DO, Ot 263.1 MALNUTRITION MILD DEGREE 03/06/2014 RUBIO MEZA DO, Ot 272.4 HYPERLIPIDEMIA NEC/NOS 03/06/2014 RUBIO MEZA DO Ot 275.2 DIS MAGNESIUM METABOLISM 03/06/2014 RUBIO MEZA DO, Ot 276.2 ACIDOSIS 03/06/2014 RUBIO MEZA DO [...] HX OF PAST NONCOMPLIANCE 03/06/2014 RUBIO MEZA DO Ot V58.67 LONG-TERM (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 03/29/2014 BRENDA PARDO APRN Ot 276.8 HYPOPOTASSEMIA 03/29/2014 BRENDA PARDO APRN Ot 346.90 MIGRAINE UNSPECIFIED W/O INTRACT MGRN W/ 03/29/2014 BRENDA PARDO APRN Ot 787.01 NAUSEA WITH VOMITING 05/09/2014 RUBIO MEZA DO Ot 250.61 DIAB W NEURO MANIFEST, TYPE I [JUVENILE 05/09/2014 RUBIO MEZA DO Ot 255.41 GLUCOCORTICOID DEFICIENCY 05/09/2014 RUBIO MEZA DO Ot 275.2 DIS MAGNESIUM METABOLISM 05/09/2014 RUBIO [...] Ot 530.81 ESOPHAGEAL REFLUX 06/12/2014 RUBIO MEZA DO Ot 536.3 GASTROPARESIS 06/12/2014 RUBIO MEZA DO Ot 596.51 HYPERTONICITY OF BLADDER 06/12/2014 RUBIO MEZA DO Ot 729.1 MYALGIA AND MYOSITIS NOS 06/12/2014 [...] DO Ot 382.9 OTITIS MEDIA NOS 08/07/2014 DERRICK ROGEL RUBIO Chato Ot 536.3 GASTROPARESIS 08/07/2014 RUBIO MEZA DO Ot 596.51 HYPERTONICITY OF BLADDER 08/07/2014 DERRICK ROGEL RUBIO Chato Ot 729.1 MYALGIA AND MYOSITIS NOS 08/07/2014 RUBIO MEZA DO Ot V15.52 PERSONAL HISTORY OF TRAUMATIC BRAIN INJU 11/30/2014 RUBIO MEZA DO Ot V58.81 12/21/2014 DERRICK ROGEL RUBIO Chato Ot V58.81 12/24/2014 Ot 346.90 12/24/2014 Ot [...] 02/24/2015 Ot 780.4 02/24/2015 Ot 781.2 02/24/2015 AMANDA POWERS MD Ot 599.70 02/24/2015 AMANDA POWERS MD Ot V81.5 02/24/2015 RUBIO MEZA DO Ot [...] FLOREZ DO Ot 719.43 07/03/2015 RUBIO MEZA DO, Ot V58.81 07/04/2015 RUBIO MEZA DO Ot [...] PRIYA LIAO, AMANDA Almanzar Ot 599.70 09/17/2015 AMANDA POWERS MD Ot V81.5 09/17/2015 MARQUITA FLOREZ DO Ot 719.43 09/17/2015 RUBIO MEZA DO, Ot V58.81 10/29/2015 RUBIO MEZA DO, Ot E03.9 HYPOTHYROIDISM, UNSPECIFIED 10/29/2015 RUBIO MEZA [...] OBSTRUCTION 11/30/2015 SANDRA VALDEZ DO Ot Z79.4 [employer] (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 12/21/2015 Ot 346.90 12/21/2015 Ot 780.4 12/21/2015 Ot 781.2 12/21/2015 PRIYA LIAO, AMANDA Almanzar Ot 599.70 12/21/2015 PRIYA LIAO, AMANDA Almanzar Ot V81.5 12/21/2015 MARQUITA FLOREZ DO Ot 719.43 12/21/2015 RUBIO MEZA DO Ot V58.81 01/06/2016 REMI LIAO, JF Almanzar Ot E03.9 01/06/2016 REMI LIAO, JF A [...] PAIN 01/25/2016 THOMAS HERNANDEZ MD Ot Z79.4 [employer] (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 01/28/2016 REMI LIAO, JF Almanzar Ot E03.9 01/28/2016 REMI LIAO, JF Almanzar Ot E10.9 01/28/2016 REMI LIAO, JF Almanzar Ot K21.9 01/28/2016 REMI LIAO, JF Almanzar Ot K29.70 04/15/2016 ANNA VALDEZ DOI Ot E03.9 HYPOTHYROIDISM, UNSPECIFIED 04/15/2016 COURTNEY ROGEL SANDRA Ot E11.9 TYPE 2 DIABETES MELLITUS WITHOUT COMPLIC 04/15/2016 COURTNEY ROGEL SANDRA Ot E78.5 HYPERLIPIDEMIA, UNSPECIFIED 04/15/2016 COURTNEY ROGEL SANDRA Ot E87.6 HYPOKALEMIA 04/15/2016 COURTNEY ROGEL SANDRA Ot F32.9 MAJOR DEPRESSIVE DISORDER, SINGLE EPISOD 04/15/2016 COURTNEY ROGEL SANDRA Ot I10 ESSENTIAL (PRIMARY) HYPERTENSION 04/15/2016 ANNA VALDEZ DOI Ot K20.9 ESOPHAGITIS, UNSPECIFIED 04/15/2016 ANNA VALDEZ DOI Ot K29.70 GASTRITIS, UNSPECIFIED, WITHOUT BLEEDING 04/15/2016 SANDRA VALDEZ DO Ot K44.9 DIAPHRAGMATIC HERNIA WITHOUT OBSTRUCTION 04/15/2016 SANDRA VALDEZ DO Ot Z79.4 [employer] HEAD (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 10/05/2016 W 250.00 DIABETES MELLITUS WITHOUT MENTION OF COMPLICATION, TYPE II OR UNSPECIFIED TYPE, NOT STATED UNCONTROLLED 10/05/2016 W 285.9 ANEMIA, UNSPECIFIED 10/05/2016 A 346.90 MIGRAINE, UNSPECIFIED, WITHOUT MENTION OF INTRACTABLE MIGRAINE, WITHOUT MENTION OF STATUS MIGRAINOSUS 10/05/2016 W D64.9 ANEMIA, UNSPECIFIED 10/05/2016 W E11.9 TYPE 2 DIABETES MELLITUS WITHOUT COMPLICATIONS 10/05/2016 A G43.909 MIGRAINE, UNSPECIFIED, NOT INTRACTABLE, WITHOUT STATUS MIGRAINOSUS 11/18/2016 Clifford Rodriguez 250.60 11/18/2016 Clifford Rodriguez 595.1 CHRONIC INTERSTITIAL CYSTITIS 11/18/2016 Clifford Rodriguez 596.51 11/18/2016 Clifford Rodriguez 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84 GASTROPARESIS 12/29/2016 Ot 346.90 MIGRAINE UNSPECIFIED W/O INTRACT [...] 01/18/2017 NEVAEH LANIER MD Ot Z79.899 OTHER [employer] HEAD (CURRENT) DRUG THERAPY 01/18/2017 NEVAEH LANIER MD [...] 01/18/2017 NEVAEH LANIER MD Ot Z79.899 OTHER HALF-WAY (CURRENT) DRUG THERAPY 02/02/2017 Clifford Rodriguez 346.90 MIGRAINE, UNSPECIFIED, WITHOUT MENTION OF INTRACTABLE MIGRAINE, WITHOUT MENTION OF STATUS MIGRAINOSUS 02/02/2017 Clifford Rodriguez W 789.07 ABDOMINAL PAIN, GENERALIZED 02/02/2017 Clifford Rodriguez G43.909 MIGRAINE, UNSP, NOT INTRACTABLE, WITHOUT STATUS MIGRAINOSUS 02/02/2017 Clifford Rodriguez R10.84 GENERALIZED ABDOMINAL PAIN 02/23/2017 RUBIO MEZA DO Ot 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 02/23/2017 RUBIO MEZA DO Ot R53.83 OTHER FATIGUE 02/28/2017 RUBIO MEZA DO Ot 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 02/28/2017 RUBIO MEZA DO Ot R53.83 OTHER FATIGUE 03/03/2017 Waleska Perez W 244.9 UNSPECIFIED HYPOTHYROIDISM 03/03/2017 Hilda Perezica A 250.80 03/03/2017 Waleska Perez W 272.0 PURE HYPERCHOLESTEROLEMIA 03/03/2017 Waleska Perez W 787.01 NAUSEA WITH VOMITING 03/03/2017 Waleska Perez W 787.91 DIARRHEA 03/03/2017 Waleska Perez W E03.9 HYPOTHYROIDISM, UNSPECIFIED 03/03/2017 Waleska Perez A E11.65 TYPE 2 DIABETES MELLITUS WITH HYPERGLYCEMIA 03/03/2017 Waleska Perez W E78.00 PURE HYPERCHOLESTEROLEMIA, UNSPECIFIED 03/03/2017 Waleska Perez W R11.2 NAUSEA WITH VOMITING, UNSPECIFIED 03/03/2017 ChrisHildaWaleska W R19.7 DIARRHEA, UNSPECIFIED 03/09/2017 RUBIO MEZA DO Ot 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 03/09/2017 RUBIO MEZA DO Ot R53.83 OTHER FATIGUE 03/28/2017 RUBIO MEZA DO Ot 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 03/28/2017 RUBIO MEZA DO Ot R53.83 OTHER FATIGUE 04/09/2017 Clifford Rodriguez 346.90 MIGRAINE, UNSPECIFIED, WITHOUT MENTION OF INTRACTABLE MIGRAINE, WITHOUT MENTION OF STATUS MIGRAINOSUS 04/09/2017 Clifford Rodriguez G43.909 MIGRAINE, UNSP, NOT INTRACTABLE, WITHOUT STATUS MIGRAINOSUS 04/22/2017 Clifford Rodriguez 250.00 DIABETES MELLITUS WITHOUT MENTION OF COMPLICATION, TYPE II OR UNSPECIFIED TYPE, NOT STATED UNCONTROLLED 04/22/2017 Clifford Rodriguez 296.20 MAJOR DEPRESSIVE DISORDER, SINGLE EPISODE, UNSPECIFIED DEGREE 04/22/2017 Clifford Rodriguez 530.81 ESOPHAGEAL REFLUX 04/22/2017 Clifford Rodriguez 780.79 OTHER MALAISE AND FATIGUE 04/22/2017 Clifford Rodriguez 789.07 04/22/2017 Clifford Rodriguez E11.9 TYPE 2 DIABETES MELLITUS WITHOUT COMPLICATIONS 04/22/2017 Clifford Rodriguez F32.9 MAJOR DEPRESSIVE DISORDER, SINGLE EPISODE, UNSPECIFIED 04/22/2017 Clifford Rodriguez K21.9 GASTRO-ESOPHAGEAL REFLUX DISEASE WITHOUT ESOPHAGITIS 04/22/2017 Clifford Rodriguez R10.84 GENERALIZED ABDOMINAL PAIN 04/22/2017 Clifford Rodriguez R53.83 OTHER FATIGUE 05/18/2017 BRENDA PARDO APRN Ot E03.9 HYPOTHYROIDISM, UNSPECIFIED 05/18/2017 BRENDA PARDO APRN Ot E11.9 TYPE 2 [...] APRN Ot R51 HEADACHE 05/18/2017 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 Ot Z79.4 [employer] HEAD (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 05/18/2017 BRENDA PARDO APRN Ot Z90.49 ACQUIRED ABSENCE OF OTHER SPECIFIED PART 05/18/2017 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 Ot Z90.89 ACQUIRED ABSENCE OF OTHER ORGANS 05/21/2017 BRENDA PARDO APRN Ot E03.9 HYPOTHYROIDISM, UNSPECIFIED 05/21/2017 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 Ot E11.9 TYPE 2 DIABETES MELLITUS WITHOUT [...] HEADACHE 05/21/2017 BRENDA PARDO APRN Ot Z79.4 [employer] (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 05/21/2017 BRENDA PARDO APRN Ot Z90.49 ACQUIRED ABSENCE OF OTHER SPECIFIED PART 05/21/2017 BRENDA PARDO APRN Ot Z90.89 ACQUIRED ABSENCE OF OTHER ORGANS 05/22/2017 BRENDA PARDO APRN Ot E03.9 HYPOTHYROIDISM, UNSPECIFIED 05/22/2017 BRENDA PARDO APRN Ot E11.9 TYPE 2 DIABETES MELLITUS WITHOUT COMPLIC 05/22/2017 BRENDA PARDO APRN Ot E78.00 PURE HYPERCHOLESTEROLEMIA, UNSPECIFIED 05/22/2017 BRENDA PARDO APRN Ot F41.8 OTHER SPECIFIED ANXIETY DISORDERS 05/22/2017 BRENDA PARDO APRN Ot G43.909 MIGRAINE, UNSP, NOT INTRACTABLE, WITHOUT 05/22/2017 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 Ot I10 ESSENTIAL (PRIMARY) HYPERTENSION 05/22/2017 BRENDA PARDO APRN Ot M19.90 UNSPECIFIED OSTEOARTHRITIS, UNSPECIFIED 05/22/2017 BRENDA PARDO APRN Ot R51 HEADACHE 05/22/2017 BRENDA PARDO APRN Ot Z79.4 [employer] HEAD (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 05/22/2017 BRENDA PARDO APRN Ot Z90.49 ACQUIRED ABSENCE OF OTHER SPECIFIED PART 05/22/2017 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 Ot Z90.89 ACQUIRED ABSENCE OF OTHER ORGANS 05/22/2017 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 Ot E03.9 HYPOTHYROIDISM, UNSPECIFIED 05/22/2017 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 Ot E11.9 TYPE 2 DIABETES MELLITUS WITHOUT COMPLIC 05/22/2017 BRENDA PARDO APRN Ot E78.00 PURE HYPERCHOLESTEROLEMIA, UNSPECIFIED 05/22/2017 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 Ot F41.8 OTHER SPECIFIED ANXIETY DISORDERS 05/22/2017 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 Ot G43.909 MIGRAINE, UNSP, NOT INTRACTABLE, WITHOUT 05/22/2017 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 Ot I10 ESSENTIAL (PRIMARY) HYPERTENSION 05/22/2017 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 Ot M19.90 UNSPECIFIED OSTEOARTHRITIS, UNSPECIFIED 05/22/2017 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 Ot R51 HEADACHE 05/22/2017 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 Ot Z79.4 [employer] HEAD (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 05/22/2017 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 Ot Z90.49 ACQUIRED ABSENCE OF OTHER SPECIFIED PART 05/22/2017 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 Ot Z90.89 ACQUIRED ABSENCE OF OTHER ORGANS [...] G43.909 MIGRAINE, UNSP, NOT INTRACTABLE, WITHOUT 06/08/2017 MARQUITA CAMPOS MD Ot I10 ESSENTIAL (PRIMARY) HYPERTENSION 06/08/2017 MARQUITA CAMPOS MD Ot J45.909 UNSPECIFIED ASTHMA, UNCOMPLICATED 06/08/2017 MARQUITA CAMPOS MD Ot R11.2 NAUSEA WITH VOMITING, UNSPECIFIED 06/08/2017 MARQUITA CAMPOS MD Ot R73.09 OTHER ABNORMAL GLUCOSE 06/08/2017 MARQUITA CAMPOS MD Ot Z79.4 [employer] HEAD (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 06/08/2017 MARQUITA CAMPOS MD Ot Z80.0 FAMILY HISTORY OF MALIGNANT NEOPLASM OF 06/08/2017 MARQUITA CAMPOS MD Ot Z82.49 FAMILY HX OF ISCHEM HEART DIS AND OTH DI 06/08/2017 MARQUITA CAMPOS MD, Ot Z87.820 PERSONAL HISTORY OF TRAUMATIC BRAIN INJU 06/08/2017 MARQUITA CAMPOS MD, Ot Z90.710 ACQUIRED ABSENCE OF BOTH CERVIX AND UTER 06/11/2017 RUBIO MEZA DO, Ot Z45.2 ENCOUNTER FOR ADJUSTMENT AND MANAGEMENT 07/09/2017 RUBIO MEZA DO, Ot S09.90XA UNSPECIFIED INJURY OF HEAD, INITIAL ENCO 07/09/2017 RUBIO MEZA DO, Ot X58.XXXA EXPOSURE TO [...] UNSPECIFIED 07/22/2017 CARA LEWIS MD Ot Z79.4 [employer] HEAD (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 07/22/2017 CARA LEWIS [...] UNSPECIFIED 07/23/2017 CARA LEWIS MD Ot Z79.4 HALF-WAY (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 07/23/2017 CARA LEWIS [...] UNSPECIFIED 08/11/2017 CARA LEWIS MD Ot Z79.4 [employer] HEAD (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 08/11/2017 CARA LEWIS MD Ot Z80.0 FAMILY HISTORY OF MALIGNANT NEOPLASM OF 08/11/2017 CARA LEWIS MD Ot Z82.49 FAMILY HX OF ISCHEM HEART DIS AND OTH DI 08/11/2017 CARA LEWIS MD Ot Z87.19 PERSONAL HISTORY OF OTHER DISEASES OF TH 08/11/2017 CARA LEWIS MD Ot Z87.820 PERSONAL HISTORY OF TRAUMATIC BRAIN INJU 08/11/2017 CARA LEWIS MD Ot Z90.710 ACQUIRED ABSENCE OF BOTH CERVIX AND UTER 08/15/2017 RUBIO MEZA DO Ot S09.90XA UNSPECIFIED INJURY [...] UNSPECIFIED 08/22/2017 CARA LEWIS MD Ot Z79.4 [employer] HEAD (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 08/22/2017 CARA LEWIS [...] BONILLA Ot F41.9 ANXIETY DISORDER, UNSPECIFIED 09/03/2017 RODRI PA, LOUISA L Ot G40.909 EPILEPSY, UNSP, NOT INTRACTABLE, WITHOUT 09/03/2017 LOUISA BONILLA Ot G43.909 MIGRAINE, UNSP, NOT INTRACTABLE, WITHOUT 09/03/2017 LOUISA BONILLA Ot I10 ESSENTIAL (PRIMARY) HYPERTENSION 09/03/2017 LOUISA BONILLA Ot J45.909 UNSPECIFIED ASTHMA, UNCOMPLICATED 09/03/2017 LOUISA BONILLA Ot R10.84 GENERALIZED ABDOMINAL PAIN 09/03/2017 LOUISA BONILLA Ot R51 HEADACHE 09/03/2017 LOUISA BONILLA Ot Z79.4 HALF-WAY (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 09/03/2017 LOUISA BONILLA [...] UNSPECIFIED 09/05/2017 NEVAEH LANIER MD Ot Z79.4 HALF-WAY (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 09/09/2017 LOUISA BONILLA [...] BONILLA Ot J45.909 UNSPECIFIED ASTHMA, UNCOMPLICATED 09/09/2017 LOUIAS BONILLA Ot R10.84 GENERALIZED ABDOMINAL PAIN 09/09/2017 LOUISA BONILLA Ot R51 HEADACHE 09/09/2017 LOUISA BONILLA Ot Z79.4 HALF-WAY (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 09/09/2017 LOUISA BONILLA [...] BONILLA Ot J45.909 UNSPECIFIED ASTHMA, UNCOMPLICATED 09/22/2017 RODRI DONOHUE LOUISA L Ot R11.2 NAUSEA WITH VOMITING, UNSPECIFIED 09/22/2017 LOUISA BONILLA Ot R51 HEADACHE 09/22/2017 LOUISA BONILLA Ot Z79.4 HALF-WAY (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 09/22/2017 RODRI DONOHUE LOUISA Carlitos Ot Z80.0 FAMILY HISTORY OF MALIGNANT NEOPLASM OF 09/22/2017 LOUISA BONILLA Ot Z82.49 FAMILY HX OF ISCHEM HEART DIS AND OTH DI 09/22/2017 RODRI DONOHUE LOUISA Carlitos Ot Z87.19 PERSONAL HISTORY OF OTHER DISEASES [...] UNSPECIFIED 10/01/2017 CARA LEWIS MD Ot Z79.4 HALF-WAY (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 10/01/2017 CARA LEWIS [...] W/O FOREIGN BODY OF RIGHT 10/08/2017 LOUISA BNOILLA Ot S01.332A PUNCTURE WOUND WITHOUT FOREIGN BODY OF L 10/08/2017 LOUISA BONILLA Ot Z79.4 [employer] HEAD (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 10/08/2017 LOUISA BONILLA [...] OF L 10/10/2017 LOUISA BONILLA Ot Z79.4 [employer] HEAD (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 10/10/2017 LOUISA BONILLA [...] BOTH CERVIX AND UTER 10/11/2017 THOMAS HERNANDEZ MD Ot E03.9 HYPOTHYROIDISM, UNSPECIFIED 10/11/2017 THOMAS HERNANDEZ MD Ot E11.40 TYPE 2 DIABETES MELLITUS WITH DIABETIC N 10/11/2017 DAVID MD, THOMAS D Ot E78.00 PURE HYPERCHOLESTEROLEMIA, UNSPECIFIED 10/11/2017 THOMAS [...] UNCOMPLICATED 10/11/2017 THOMAS HERNANDEZ MD Ot Z79.4 HALF-WAY (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 10/11/2017 THOMAS HERNANDEZ MD Ot Z80.0 FAMILY HISTORY OF MALIGNANT NEOPLASM OF 10/11/2017 THOMAS HERNANDEZ MD Ot Z82.49 FAMILY HX OF ISCHEM HEART DIS AND OTH DI 10/11/2017 THOMAS HERNANDEZ MD Ot Z87.19 PERSONAL HISTORY OF OTHER DISEASES OF TH 10/11/2017 THOMAS HERNANDEZ MD Ot Z87.440 PERSONAL [...] MIGRAINE, UNSP, NOT INTRACTABLE, WITHOUT 11/02/2017 CARA LEWSI MD Ot I10 ESSENTIAL (PRIMARY) HYPERTENSION 11/02/2017 CARA LEWIS MD Ot J45.909 UNSPECIFIED ASTHMA, UNCOMPLICATED 11/02/2017 CARA LEWIS MD Ot R11.2 NAUSEA WITH VOMITING, UNSPECIFIED 11/02/2017 CARA LEWIS MD Ot Z79.4 HALF-WAY (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 11/02/2017 CARA LEWIS [...] UNSPECIFIED 11/05/2017 CARA LEWIS MD Ot Z79.4 [employer] HEAD (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 11/05/2017 CARA LEWIS [...] UNSPECIFIED 11/08/2017 CARA LEWIS MD Ot Z79.4 [employer] HEAD (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 11/08/2017 CARA LEWIS [...] UNSPECIFIED 11/21/2017 CARA LEWIS MD Ot Z79.4 HALF-WAY (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 11/21/2017 CARA LEWIS MD Ot Z80.0 FAMILY HISTORY OF MALIGNANT NEOPLASM OF 11/21/2017 CARA LEWIS MD Ot Z82.49 FAMILY HX OF ISCHEM HEART DIS AND OTH DI 11/21/2017 CARA LEWIS MD Ot Z87.19 PERSONAL HISTORY OF OTHER DISEASES OF 11/21/2017 CARA LEWIS MD Ot Z87.440 PERSONAL [...] DIABETES MELLITUS WITHOUT COMPLIC 12/04/2017 JF KHALIL MD, Ot K21.9 GASTRO-ESOPHAGEAL REFLUX DISEASE WITHOUT 12/04/2017 [...] UNSPECIFIED 12/04/2017 CARA LEWIS MD Ot Z79.4 HALF-WAY (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 12/04/2017 CARA LEWIS MD Ot Z80.0 FAMILY HISTORY OF MALIGNANT NEOPLASM OF 12/04/2017 CARA LEWIS MD Ot Z82.49 FAMILY HX [...] V58.81 FIT/ADJ VASCULAR CATHETER 12/24/2017 JF KHALIL MD Ot E03.9 HYPOTHYROIDISM, UNSPECIFIED 12/24/2017 REMI MD, JF A Ot E10.9 TYPE 1 DIABETES MELLITUS WITHOUT COMPLIC 12/24/2017 JF KHALIL MD Ot K21.9 GASTRO-ESOPHAGEAL REFLUX DISEASE WITHOUT 12/24/2017 JF KHALIL MD Ot K29.70 GASTRITIS, UNSPECIFIED, WITHOUT BLEEDING 12/24/2017 Ot Z12.31 ENCNTR SCREEN MAMMOGRAM FOR MALIGNANT NE 12/24/2017 RUBIO MEZA DO Ot 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 12/24/2017 RUBIO MEZA DO Ot R53.83 OTHER FATIGUE 12/24/2017 DERRICK ROGEL, RUBIO Reis Ot S09.90XA UNSPECIFIED INJURY OF HEAD, INITIAL [...] I10 ESSENTIAL (PRIMARY) HYPERTENSION 12/24/2017 CARA LEWIS MD Ot J45.909 UNSPECIFIED ASTHMA, UNCOMPLICATED 12/24/2017 CARA LEWIS MD Ot R11.2 NAUSEA WITH VOMITING, UNSPECIFIED 12/24/2017 CARA LEWIS MD Ot Z79.4 HALF-WAY (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 12/24/2017 CARA LEWIS MD Ot Z80.0 FAMILY HISTORY OF MALIGNANT NEOPLASM OF 12/24/2017 CARA LEWIS MD Ot Z82.49 FAMILY HX OF ISCHEM HEART DIS AND OTH DI 12/24/2017 CARA LEWIS MD Ot Z87.19 PERSONAL HISTORY OF OTHER DISEASES OF 12/24/2017 CARA LEWIS MD Ot Z87.820 PERSONAL HISTORY OF TRAUMATIC BRAIN INJU 12/24/2017 CARA LEWIS MD Ot Z90.710 ACQUIRED ABSENCE [...] CHRONIC MIGRAINE W/O AURA, NOT INTRACTAB 12/24/2017 LOUIAS BONILLA Ot G89.29 OTHER CHRONIC PAIN 12/24/2017 LOUISA BONILLA Ot I10 ESSENTIAL (PRIMARY) HYPERTENSION 12/24/2017 LOUISA BONILLA Ot J45.909 UNSPECIFIED ASTHMA, UNCOMPLICATED 12/24/2017 LOUISA BONILLA Ot R10.9 UNSPECIFIED ABDOMINAL PAIN 12/24/2017 LOUISA BONILLA Ot R11.10 VOMITING, UNSPECIFIED 12/24/2017 LOUISA BONILLA Ot Z79.4 [employer] HEAD (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 12/24/2017 LOUISA BONILLA Ot Z80.0 FAMILY HISTORY OF MALIGNANT NEOPLASM OF 12/24/2017 LOUISA BONILLA Ot Z82.49 FAMILY HX OF ISCHEM HEART DIS AND OTH DI 12/24/2017 LOUISA BONILLA Ot Z87.19 PERSONAL HISTORY OF OTHER DISEASES OF 12/24/2017 LOUISA BONILLA Ot Z87.440 PERSONAL HISTORY [...] BONILLA Ot R10.9 UNSPECIFIED ABDOMINAL PAIN 12/26/2017 LOUISA BONILLA Ot R11.10 VOMITING, UNSPECIFIED 12/26/2017 LOUISA BONILLA Ot Z79.4 [employer] HEAD (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 12/26/2017 LOUISA BONILLA [...] PERSONAL HISTORY OF TRAUMATIC BRAIN INJU 12/26/2017 RODRI PA, LOUISA L Ot Z88.2 ALLERGY STATUS TO SULFONAMIDES STATUS [...] UNSPECIFIED 12/31/2017 CARA LEWIS MD Ot Z79.4 HALF-WAY (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 12/31/2017 CARA LEWIS MD Ot Z80.0 FAMILY HISTORY OF MALIGNANT NEOPLASM OF 12/31/2017 CARA LEWIS MD Ot Z82.49 FAMILY HX OF ISCHEM HEART DIS AND OTH DI 12/31/2017 CARA LEWIS MD Ot Z87.19 PERSONAL HISTORY OF OTHER DISEASES OF TH 12/31/2017 CARA LEWIS MD Ot Z87.820 PERSONAL HISTORY OF TRAUMATIC BRAIN INJU 12/31/2017 CARA LEWIS MD Ot Z90.710 ACQUIRED ABSENCE [...] W DIABETIC AUTONOMIC (PO 01/10/2018 RUBIO MEZA DO Ot R53.83 OTHER FATIGUE 01/10/2018 RUBIO MEZA DO, Ot S09.90XA UNSPECIFIED INJURY OF HEAD, INITIAL ENCO 01/10/2018 RUBIO MEZA DO, Ot X58.XXXA EXPOSURE TO OTHER SPECIFIED FACTORS, INI 01/10/2018 RUBIO MEZA DO, Ot Z45.2 ENCOUNTER FOR ADJUSTMENT AND MANAGEMENT 01/18/2018 Ot 346.90 MIGRAINE UNSPECIFIED W/O INTRACT MGRN W/ 01/18/2018 Ot 780.4 DIZZINESS AND GIDDINESS 01/18/2018 Ot 781.2 ABNORMALITY OF GAIT 01/18/2018 AMANDA POWERS MD Ot 599.70 HEMATURIA, UNSPECIFIED 01/18/2018 AMANDA POWERS MD Ot V81.5 SCREEN FOR NEPHROPATHY 01/18/2018 MARQUITA FLOREZ DO Ot 719.43 JOINT PAIN-FOREARM 01/18/2018 RUBIO MEZA DO, Ot V58.81 FIT/ADJ VASCULAR CATHETER 01/18/2018 JF KHALIL MD Ot E03.9 HYPOTHYROIDISM, UNSPECIFIED 01/18/2018 JF KHALIL MD Ot E10.9 TYPE 1 DIABETES MELLITUS WITHOUT COMPLIC 01/18/2018 JF KHALIL MD Ot K21.9 GASTRO-ESOPHAGEAL REFLUX DISEASE WITHOUT 01/18/2018 REMI LIAO, JF Almanzar Ot K29.70 GASTRITIS, UNSPECIFIED, WITHOUT BLEEDING 01/18/2018 Ot Z12.31 ENCNTR SCREEN MAMMOGRAM FOR MALIGNANT NE 01/18/2018 RUBIO MEZA DO Ot 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 01/18/2018 RUBIO MEZA DO Ot R53.83 OTHER FATIGUE 01/18/2018 RUBIO MEZA DO Ot S09.90XA UNSPECIFIED INJURY OF HEAD, INITIAL ENCO 01/18/2018 RUBIO MEZA DO Ot X58.XXXA EXPOSURE TO OTHER SPECIFIED FACTORS, INI 01/18/2018 RUBIO MEZA DO, Ot Z45.2 ENCOUNTER FOR ADJUSTMENT AND MANAGEMENT 01/18/2018 LOUISA BONILLA Ot E03.9 HYPOTHYROIDISM, UNSPECIFIED 01/18/2018 LOUISA BONILLA Ot E11.40 TYPE 2 DIABETES MELLITUS WITH DIABETIC N 01/18/2018 LOUISA BONILLA Ot E78.00 PURE HYPERCHOLESTEROLEMIA, UNSPECIFIED 01/18/2018 LOUISA BONILLA Ot F32.9 MAJOR DEPRESSIVE DISORDER, SINGLE EPISOD 01/18/2018 LOUISA BONILLA Ot F41.9 ANXIETY DISORDER, UNSPECIFIED 01/18/2018 LOUISA BONILLA Ot G40.909 EPILEPSY, UNSP, NOT INTRACTABLE, WITHOUT 01/18/2018 LOUISA BONILLA Ot I10 ESSENTIAL (PRIMARY) HYPERTENSION 01/18/2018 LOUISA BONILLA Ot J45.909 UNSPECIFIED ASTHMA, UNCOMPLICATED 01/18/2018 LOUISA BONILLA Ot R10.10 UPPER ABDOMINAL PAIN, UNSPECIFIED 01/18/2018 LOUISA BONILLA Ot R11.2 NAUSEA WITH VOMITING, UNSPECIFIED 01/18/2018 LOUISA BONILLA Ot R51 HEADACHE 01/18/2018 LOUISA BONILLA Ot Z79.4 HALF-WAY (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 01/18/2018 LOUISA BONILLA Ot Z87.19 PERSONAL HISTORY OF OTHER DISEASES OF TH 01/18/2018 LOUISA BONILLA Ot Z87.820 PERSONAL HISTORY OF TRAUMATIC BRAIN INJU 01/18/2018 LOUISA BONILLA Ot Z88.2 ALLERGY STATUS TO SULFONAMIDES STATUS 01/18/2018 LOUISA BONILLA Ot Z90.710 ACQUIRED ABSENCE OF BOTH CERVIX AND UTER 01/21/2018 LOUISA BONILLA Ot E03.9 HYPOTHYROIDISM, UNSPECIFIED 01/21/2018 LOUISA BONILLA Ot E11.40 TYPE 2 DIABETES MELLITUS WITH DIABETIC N 01/21/2018 LOUISA BONILLA Ot E78.00 PURE HYPERCHOLESTEROLEMIA, UNSPECIFIED 01/21/2018 LOUISA BONILLA Ot F32.9 MAJOR DEPRESSIVE DISORDER, SINGLE EPISOD 01/21/2018 LOUISA BONILLA Ot F41.9 ANXIETY DISORDER, UNSPECIFIED 01/21/2018 LOUISA BONILLA Ot G40.909 EPILEPSY, UNSP, NOT INTRACTABLE, WITHOUT 01/21/2018 LOUISA BONILLA Ot I10 ESSENTIAL (PRIMARY) HYPERTENSION 01/21/2018 LOUISA BONILLA Ot J45.909 UNSPECIFIED ASTHMA, UNCOMPLICATED 01/21/2018 LOUISA BONILLA Ot R10.10 UPPER ABDOMINAL PAIN, UNSPECIFIED 01/21/2018 LOUISA BONILLA Ot R11.2 NAUSEA WITH VOMITING, UNSPECIFIED 01/21/2018 LOUISA BONILLA Ot R51 HEADACHE 01/21/2018 LOUISA BONILLA Ot Z79.4 [employer] HEAD (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 01/21/2018 LOUISA BONILLA Ot Z87.19 PERSONAL HISTORY OF OTHER DISEASES OF TH 01/21/2018 LOUISA BONILLA Ot Z87.820 PERSONAL HISTORY OF TRAUMATIC BRAIN INJU 01/21/2018 LOUISA BONILLA Ot Z88.2 ALLERGY STATUS TO SULFONAMIDES STATUS 01/21/2018 LOUISA BONILLA Ot Z90.710 ACQUIRED ABSENCE OF BOTH CERVIX AND UTER 02/12/2018 TOD MEZA SYSTEMS SECURITY CONSULTANT Ot Z45.2 ENCOUNTER FOR ADJUSTMENT AND MANAGEMENT 02/22/2018 TOD MEZA [employer] SECURITY CONSULTANT Ot Z45.2 ENCOUNTER FOR ADJUSTMENT AND MANAGEMENT 02/22/2018 JF KHALIL MD Ot E03.9 HYPOTHYROIDISM, UNSPECIFIED 02/22/2018 JF KHALIL MD Ot E10.9 TYPE 1 DIABETES MELLITUS WITHOUT COMPLIC 02/22/2018 JF KHALIL MD Ot K21.9 GASTRO-ESOPHAGEAL REFLUX DISEASE WITHOUT 02/22/2018 JF KHALIL MD Ot K29.70 GASTRITIS, UNSPECIFIED, WITHOUT BLEEDING 02/22/2018 Ot Z12.31 ENCNTR SCREEN MAMMOGRAM FOR MALIGNANT NE 02/22/2018 RUBIO MEZA DO, Ot 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 02/22/2018 RUBIO MEZA DO Ot R53.83 OTHER FATIGUE 02/22/2018 RUBIO MEZA DO Ot S09.90XA UNSPECIFIED INJURY OF HEAD, INITIAL ENCO 02/22/2018 RUBIO MEZA DO Ot X58.XXXA EXPOSURE TO OTHER SPECIFIED FACTORS, INI 02/22/2018 RUBIO MEZA DO Ot Z45.2 ENCOUNTER FOR ADJUSTMENT AND MANAGEMENT 02/22/2018 TOD MEZA Ot Z45.2 ENCOUNTER FOR ADJUSTMENT AND MANAGEMENT 02/26/2018 RUBIO MEZA DO Ot T82.594A [facility] COMPL OF INFUSION CATHETER, INITIAL 03/13/2018 RUBIO MEZA DO, Ot T82.594A [facility] COMPL OF INFUSION CATHETER, INITIAL 03/17/2018 RUBIO MEZA DO, Ot T82.594A [facility] COMPL OF INFUSION CATHETER, INITIAL 03/17/2018 CARA LEWIS MD Ot E11.40 TYPE 2 DIABETES MELLITUS WITH DIABETIC N 03/17/2018 CARA LEWIS MD Ot E78.00 PURE HYPERCHOLESTEROLEMIA, UNSPECIFIED 03/17/2018 CARA LEWIS MD Ot F32.9 MAJOR DEPRESSIVE DISORDER, SINGLE EPISOD 03/17/2018 CARA LEWIS MD Ot F41.9 ANXIETY DISORDER, UNSPECIFIED 03/17/2018 CARA LEWIS MD Ot G40.909 EPILEPSY, UNSP, NOT INTRACTABLE, WITHOUT 03/17/2018 CARA LEWIS MD Ot G43.009 MIGRAINE W/O AURA, NOT INTRACTABLE, W/O 03/17/2018 CARA LEWIS MD Ot I10 ESSENTIAL (PRIMARY) HYPERTENSION 03/17/2018 CARA LEWIS MD Ot J45.909 UNSPECIFIED ASTHMA, UNCOMPLICATED 03/17/2018 CARA LEWIS MD Ot R10.10 UPPER ABDOMINAL PAIN, UNSPECIFIED 03/17/2018 CARA LEWIS MD Ot R11.2 NAUSEA WITH VOMITING, UNSPECIFIED 03/17/2018 CARA LEWIS MD Ot Z79.4 HALF-WAY (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 03/17/2018 CARA LEWIS MD Ot Z79.51 HALF-WAY (CURRENT) USE OF INHALED STERO 03/17/2018 CARA LEWIS MD Ot Z80.0 FAMILY HISTORY OF MALIGNANT NEOPLASM OF 03/17/2018 CARA LEWIS MD Ot Z82.49 FAMILY HX OF ISCHEM HEART DIS AND OTH DI 03/17/2018 CARA LEWIS MD Ot Z87.19 PERSONAL HISTORY OF OTHER DISEASES OF TH 03/17/2018 CARA LEWIS MD Ot Z87.440 PERSONAL HISTORY OF URINARY (TRACT) INFE 03/17/2018 CARA LEWIS MD, Ot Z87.820 PERSONAL HISTORY OF TRAUMATIC BRAIN INJU 03/17/2018 CARA LEWIS MD Ot Z88.2 ALLERGY STATUS TO SULFONAMIDES STATUS 03/17/2018 CARA LEWIS MD Ot Z90.710 ACQUIRED ABSENCE OF BOTH CERVIX AND UTER 03/19/2018 CARA LEWIS MD Ot E11.40 TYPE 2 DIABETES MELLITUS WITH DIABETIC N 03/19/2018 CARA LEWIS MD Ot E78.00 PURE HYPERCHOLESTEROLEMIA, UNSPECIFIED 03/19/2018 CARA LEWIS MD Ot F32.9 MAJOR DEPRESSIVE DISORDER, SINGLE EPISOD 03/19/2018 CARA LEWIS MD Ot F41.9 ANXIETY DISORDER, UNSPECIFIED 03/19/2018 CARA LEWIS MD Ot G40.909 EPILEPSY, UNSP, NOT INTRACTABLE, WITHOUT 03/19/2018 CARA LEWIS MD Ot G43.009 MIGRAINE W/O AURA, NOT INTRACTABLE, W/O 03/19/2018 CARA LEWIS MD Ot I10 ESSENTIAL (PRIMARY) HYPERTENSION 03/19/2018 CARA LEWIS MD Ot J45.909 UNSPECIFIED ASTHMA, UNCOMPLICATED 03/19/2018 CARA LEWIS MD Ot R10.10 UPPER ABDOMINAL PAIN, UNSPECIFIED 03/19/2018 CARA LEWIS MD Ot R11.2 NAUSEA WITH VOMITING, UNSPECIFIED 03/19/2018 CARA LEWIS MD Ot Z79.4 [employer] HEAD (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 03/19/2018 CARA LEWIS MD, Ot Z79.51 HALF-WAY (CURRENT) USE OF INHALED STERO 03/19/2018 CARA LEWIS MD, Ot Z80.0 FAMILY HISTORY OF MALIGNANT NEOPLASM OF 03/19/2018 CARA LEWIS MD, Ot Z82.49 FAMILY HX OF ISCHEM HEART DIS AND OTH DI 03/19/2018 ACRA LEWIS MD, Ot Z87.19 PERSONAL HISTORY OF OTHER DISEASES OF TH 03/19/2018 CARA LEWIS MD, Ot Z87.440 PERSONAL HISTORY OF URINARY (TRACT) INFE 03/19/2018 CARA LEWIS MD, Ot Z87.820 PERSONAL HISTORY OF TRAUMATIC BRAIN INJU 03/19/2018 CARA LEWIS MD, Ot Z88.2 ALLERGY STATUS TO SULFONAMIDES STATUS 03/19/2018 CARA LEWIS MD, Ot Z90.710 ACQUIRED ABSENCE OF BOTH CERVIX AND UTER 03/22/2018 RUBIO MEZA DO, Ot T82.594A [facility] COMPL OF INFUSION CATHETER, INITIAL 03/22/2018 RUBIO MEZA DO, Ot T82.594A [facility] COMPL OF INFUSION CATHETER, INITIAL 04/09/2018 ADALGISA RICK DO Ot T82.518A BREAKDOWN OF CARDIAC AND VASCULAR DEVICE 04/17/2018 ADALGISA RICK DO Ot T82.518A BREAKDOWN OF CARDIAC AND VASCULAR DEVICE Procedures Code Description Performed By Performed On 99.15 PARENTERAL INFUSION OF CONCENTRATED NUT. 02/05/2014 45.13 OTHER ENDOSCOPY OF SM INTEST 02/06/2014 Results Test Result Range Comprehensive Metabolic Panel - 11/18/16 11:39 Albumin 3.7 g/dL 3.6-5.1 ALP 87 U/L 35-130 ALT 22 U/L 6-45 Anion Gap 18 6-14 AST 23 U/L 2-40 BUN 28 mg/dL 5-25 Calcium 8.8 mg/dL 8.3-10.4 Chloride 99 mmol/L 95-114 CO2 19 mEq/L 22-33 Creat 1.24 mg/dL 0.50-1.50 eGFR 45 mL/min/1.73m2 >59 Globulin 2.5 g/dL 2.3-3.5 Glucose 319 mg/dL 70-110 Osmo 289 280-295 Potassium 3.7 mmol/L 3.5-5.3 Sodium 132 mmol/L 134-148 TBil 0.5 mg/dL 0.2-1.2 TP 6.2 g/dL 6.0-8.3 Lipase - 11/18/16 11:39 Lipase 13 U/L 7-59 Amylase - 11/18/16 11:39 Amylase 44 U/L 20-100 Arterial Blood Gas - 11/18/16 13:19 Base -7.00 mmol/L 1.80-4.20 HCO3 18 mmol/L 20-31 O2 Sat 97 RM AIR % 95-100 pCO2 32 mm/Hg 35-45 pH 7.37 7.35-7.45 PO2 91 mm/Hg 80-95 Urinalysis - 11/18/16 13:19 Icotest N/A Negative Urine Volume Urine Volume Sufficient (10mL) Urine Yeast No Yeast present Urine-Appearance Clear Clear Urine-Bacteria Trace Urine-Bilirubin Negative Negative Urine-Blood Negative Negative Urine-Color Yellow Colorless-Lt. Yellow Urine-Epithelial Cells 10-20/HPF Urine-Glucose 2+ Negative Urine-Ketones 3+ Negative Urine-Leukocytes Negative Negative Urine-Nitrite Negative Negative Urine-Other Urine Saved if Culture Needed (48hrs from time of collection) Urine-pH 5.5 5-8.5 Urine-Protein Negative Negative Urine-RBC Negative Urine-Specific [place] 1.020 1.000-1.030 Urine-WBC Rare/HPF Urobilinogen 0.2 E.U./dL 0.2-1.0 Capillary blood glucose measurement by glucometer (mass/volume) - 01/16/17 12: 53 Capillary blood glucose measurement by glucometer (mass/volume) 273 mg/dL 70-110 Influenza virus A and B antigen detection - 01/16/17 13:15 FLU RESULT NEGATIVE FOR INFLUENZA A AND B ANTIGENS BY [facility] Complete blood count (CBC) with [...] Automated blood platelet mean volume measurement 10.0 [[facility]] 7.4-10.4 Automated blood neutrophils/100 leukocytes 53 % [...] blood glucose measurement by glucometer (mass/volume) - 01/18/18 20: 53 Capillary blood glucose measurement by glucometer (mass/volume) 291 mg/dL 70-110 Comprehensive Metabolic Panel - 02/02/17 20:50 Albumin 3.6 g/dL 3.6-5.1 ALP 81 U/L 35-130 ALT 14 U/L 6-45 Anion Gap 15 6-14 AST 15 U/L 2-40 BUN 15 mg/dL 5-25 Calcium 8.9 mg/dL 8.3-10.4 Chloride 99 mmol/L 95-114 CO2 25 mEq/L 22-33 Creat 1.33 mg/dL 0.50-1.50 eGFR 41 mL/min/1.73m2 >59 Globulin 2.7 g/dL 2.3-3.5 Glucose 435 mg/dL 70-110 Osmo 295 280-295 Potassium 4.8 mmol/L 3.5-5.3 Sodium 134 mmol/L 134-148 TBil 0.4 mg/dL 0.2-1.2 TP 6.3 g/dL 6.0-8.3 Urinalysis - 03/03/17 21:00 Icotest N/A Negative Urine Crystals Amorphous material: few/HPF Urine Volume Urine Volume Sufficient (10mL) Urine-Appearance Slightly Cloudy Clear Urine-Bacteria Trace Urine-Bilirubin Negative Negative Urine-Blood Negative Negative Urine-Color Yellow Colorless-Lt. Yellow Urine-Epithelial Cells 10-20/HPF Urine-Glucose 2+ Negative Urine-Ketones Negative Negative Urine-Leukocytes Negative Negative Urine-Nitrite Negative Negative Urine-Other Urine Saved if Culture Needed (48hrs from time of collection) Urine-pH 5.5 5-8.5 Urine-Protein Trace Negative Urine-RBC 0-2/HPF Urine-Specific [place] >=1.030 1.000-1.030 Urine-WBC 1-3/HPF Urobilinogen 0.2 0.2-1.0 Comprehensive Metabolic Panel - 04/22/17 12:11 Albumin 3.7 g/dL 3.6-5.1 ALP 75 U/L 35-130 ALT 15 U/L 6-45 Anion Gap 14 6-14 AST 17 U/L 2-40 BUN 9 mg/dL 5-25 Calcium 8.8 mg/dL 8.3-10.4 Chloride 105 mmol/L 95-114 CO2 22 mEq/L 22-33 Creat 0.97 mg/dL 0.50-1.50 eGFR 60 mL/min/1.73m2 >59 Globulin 3.4 g/dL 2.3-3.5 Glucose 234 mg/dL 70-110 Osmo 291 280-295 Potassium 3.3 mmol/L 3.5-5.3 Sodium 138 mmol/L 134-148 TBil 0.4 mg/dL 0.2-1.2 TP 7.1 g/dL 6.0-8.3 Urinalysis - 04/22/17 12:39 Icotest N/A Negative Urine Volume Urine Volume Sufficient (10mL) Urine Yeast No Yeast present Urine-Appearance Clear Clear Urine-Bacteria Trace Urine-Bilirubin Negative Negative Urine-Blood Negative Negative Urine-Color Yellow Colorless-Lt. Yellow Urine-Epithelial Cells 5-10/HPF Urine-Glucose 2+ Negative Urine-Ketones 4+ Negative Urine-Leukocytes Negative Negative Urine-Mucus 4+ Urine-Nitrite Negative Negative Urine-Other Culture to follow Urine-pH 7.0 5-8.5 Urine-Protein 1+ Negative Urine-RBC Negative Urine-Specific [place] 1.020 1.000-1.030 Urine-WBC 2-5/HPF Urobilinogen 0.2 E.U./dL 0.2-1.0 Urine Culture - 04/22/17 12:39 PRELIM CULTURE RESULTS No Growth 24 hours FINAL CULTURE RESULTS No Growth 48 hours MEDIA PLATED Setup at 12:55 on 04/22/2017 CULTURE SOURCE straight cath Complete blood count (CBC) with automated white [...] measurement by glucometer (mass/volume) 177 mg/dL 70-110 Capillary blood glucose measurement by glucometer (mass/volume) - 01/18/18 16: 58 Capillary blood glucose measurement by glucometer (mass/volume) 311 mg/dL 70-110 Complete blood count (CBC) with automated white blood cell (WBC) differential - 04/20/18 20:00 Blood leukocytes automated count (number/volume) 13.9 10*3/uL 4.3-11.0 Blood erythrocytes automated count (number/volume) 4.21 10*6/uL 4.35-5.85 Venous blood hemoglobin measurement (mass/volume) 11.0 g/dL 11.5-16.0 Blood hematocrit (volume fraction) 33 % 35-52 Automated erythrocyte mean corpuscular volume 79 [foz_us] 80-99 Automated erythrocyte mean corpuscular hemoglobin (mass per erythrocyte) 26 pg 25-34 Automated erythrocyte mean corpuscular hemoglobin concentration measurement ( mass/volume) 33 g/dL 32-36 Automated erythrocyte distribution width ratio 16.0 % 10.0-14.5 Automated blood platelet count (count/volume) 250 10*3/uL 130-400 Automated blood platelet mean volume measurement 11.6 [foz_us] 7.4-10.4 Automated blood neutrophils/100 leukocytes 41 % 42-75 Automated blood lymphocytes/100 leukocytes 39 % 12-44 Blood monocytes/100 leukocytes 8 % 0-12 Automated blood eosinophils/100 leukocytes 12 % 0-10 Automated blood basophils/100 leukocytes 0 % 0-10 Blood neutrophils automated count (number/volume) 5.7 10*3 1.8-7.8 Blood lymphocytes automated count (number/volume) 5.4 10*3 1.0-4.0 Blood monocytes automated count (number/volume) 1.1 10*3 0.0-1.0 Automated eosinophil count 1.7 10*3/uL 0.0-0.3 Automated blood basophil count (count/volume) 0.1 10*3/uL 0.0-0.1 Comprehensive metabolic panel - 04/20/18 20:00 Serum or plasma sodium measurement (moles/volume) 138 mmol/L 135-145 Serum or plasma potassium measurement (moles/volume) 3.5 mmol/L 3.6-5.0 Serum or plasma chloride measurement (moles/volume) 100 mmol/L 98-107 Carbon dioxide 21 mmol/L 21-32 Serum or plasma anion gap determination (moles/volume) 17 mmol/L 5-14 Serum or plasma urea nitrogen measurement (mass/volume) 26 mg/dL 7-18 Serum or plasma creatinine measurement (mass/volume) 2.10 mg/dL 0.60-1.30 Serum or plasma urea nitrogen/creatinine mass ratio 12 NRG Serum or plasma creatinine measurement with calculation of estimated glomerular filtration rate 24 NRG Serum or plasma glucose measurement (mass/volume) 120 mg/dL 70-105 Serum or plasma calcium measurement (mass/volume) 9.0 mg/dL 8.5-10.1 Serum or plasma total bilirubin measurement (mass/volume) 0.3 mg/dL 0.1-1.0 Serum or plasma alkaline phosphatase measurement (enzymatic activity/volume) 71 U/L 40-136 Serum or plasma aspartate aminotransferase measurement (enzymatic activity/ volume) 21 U/L 5-34 Serum or plasma alanine aminotransferase measurement (enzymatic activity/volume ) 18 U/L 0-55 Serum or plasma protein measurement (mass/volume) 6.4 g/dL 6.4-8.2 Serum or plasma albumin measurement (mass/volume) 3.7 g/dL 3.2-4.5 Magnesium - 04/20/18 20:00 Magnesium 2.0 mg/dL 1.8-2.4 Lipase - 04/20/18 20:00 Lipase 21 U/L 8-78 Serum or plasma C reactive protein measurement (mass/volume) - 04/20/18 20:00 Serum or plasma C reactive protein measurement (mass/volume) 0.31 mg /dL 0.00-0.50 Complete urinalysis with reflex to culture - 04/20/18 20:55 Urine color determination YELLOW NRG Urine clarity determination CLEAR NRG Urine pH measurement by test strip 5 5-9 Specific gravity of urine by test strip 1.020 1.016- 1.022 Urine protein assay by test strip, semi-quantitative 2+ NEGATIVE Urine glucose detection by automated test strip 3+ NEGATIVE Erythrocytes detection in urine sediment by light microscopy NEGATIVE NEGATIVE Urine ketones detection by automated test strip 3+ NEGATIVE Urine nitrite detection by test strip NEGATIVE NEGATIVE Urine total bilirubin detection by test strip 1+ NEGATIVE Urine urobilinogen measurement by automated test strip (mass/volume) NORMAL NORMAL Urine leukocyte esterase detection by dipstick 2+ NEGATIVE Automated urine sediment erythrocyte count by microscopy (number/high power field) NONE NRG Automated urine sediment leukocyte count by microscopy (number/high power field ) [HPF] NRG Bacteria detection in urine sediment by light microscopy TRACE NRG Squamous epithelial cells detection in urine sediment by light microscopy 25-50 NRG Crystals detection in urine sediment by light microscopy NONE NRG Casts detection in urine sediment by light microscopy PRESENT NRG Mucus detection in urine sediment by light microscopy SMALL NRG Complete urinalysis with reflex to culture NO NRG Hyaline casts detection in urine sediment by light microscopy 5-10 NRG Urine drug screening test - 04/20/18 20:55 Urine phencyclidine detection by screening method NEGATIVE NEGATIVE Urine benzodiazepines detection by screening method POSITIVE NEGATIVE Urine cocaine detection NEGATIVE NEGATIVE Urine amphetamines detection by screening method POSITIVE NEGATIVE Urine methamphetamine detection by screening method NEGATIVE NEGATIVE Urine cannabinoids detection by screening method NEGATIVE NEGATIVE Urine opiates detection by screening method POSITIVE NEGATIVE Urine barbiturates detection NEGATIVE NEGATIVE Screening urine tricyclic antidepressants detection POSITIVE NEGATIVE Urine methadone detection by screening method NEGATIVE NEGATIVE Urine oxycodone detection NEGATIVE NEGATIVE Urine propoxyphene detection NEGATIVE NEGATIVE Encounters ACCT No. Visit Date/Time Discharge Status Pt. Type Provider Facility Loc./Unit Complaint [id number] 03/21/2018 12:27:00 03/21/2018 23:59:59 CLS Outpatient ADALGISA RICK DO Via [facility] UNABLE TO DRAW BLOOD [id number] 03/17/2018 17:43:00 03/17/2018 20:46:00 DIS Emergency CARA LEWIS MD [facility] ER LEG PAIN,ABD PAIN [id number] 02/25/2018 14:05:00 02/25/2018 23:59:59 CLS Outpatient RUBIO MEZA DO [facility] RAD DYSFUNCTIONAL INFUSAPORT [id number] 02/08/2018 13:50:00 02/08/2018 23:59:59 CLS Outpatient TOD MEZA [facility] Z45.2 [id number] 01/18/2018 15:35:00 01/18/2018 23:55:00 DIS Emergency LOUISA BONILLA [facility] ER HEADACHE/STOMACH PAIN [id number] 12/24/2017 15:48:00 12/24/2017 21:41:00 DIS Emergency LOUISA BONILLA [facility] ER STOMACH PAIN,VOMITTING ,SWEATING [id number] 11/02/2017 17:46:00 11/02/2017 19:48:00 DIS Emergency CARA LEWIS MD [facility] ER N/V [id number] 10/11/2017 18:31:00 10/11/2017 22:25:00 DIS Emergency THOMAS HERNANDEZ MD [facility] ER MIGRAINE,EAR PAIN [id number] 10/08/2017 12:15:00 10/08/2017 16:30:00 DIS Emergency LOUISA BONILLA [facility] ER headache,vomiting,ear piercing infections [id number] 09/22/2017 18:32:00 09/22/2017 22:13:00 DIS Emergency LOUISA BONILLA [facility] ER N/V [id number] 09/04/2017 11:30:00 09/05/2017 11:50:00 DIS Inpatient NEVAEH LANIER MD [facility] 4TH INTRACTABLE N/V,KETOSIS [id number] 09/03/2017 11:02:00 09/03/2017 16:26:00 DIS Emergency LOUISA BONILLA [facility] ER ABD PAIN/VOMITING MIGRAINE [id number] 08/19/2017 00:19:00 08/19/2017 23:59:59 CLS Preadmit RUBIO MEZA DO [facility] [id number] 05/30/2017 10:26:00 08/18/2017 00:01:00 DIS Outpatient RUBIO MEZA DO [facility] [id number] 07/21/2017 23:49:00 07/22/2017 02:16:00 DIS Emergency CARA LEWIS MD [facility] ER VOMITING HEADACHE [id number] 07/06/2017 08:00:00 07/06/2017 23:59:59 CLS Outpatient RUBIO MEZA DO [facility] RT SEIZURE DISORDER [id number] 06/08/2017 07:41:00 06/08/2017 10:53:00 DIS Emergency MARQUITA CAMPOS MD [facility] ER VOMITTING,ABD PAIN, HEADACHE [id number] 05/18/2017 17:44:00 05/18/2017 18:30:00 DIS Emergency BRENDA PARDO APRN [facility] ER HEADACHE [id number] 02/22/2017 06:45:00 02/22/2017 23:59:59 CLS Outpatient RUBIO MEZA DO [facility] CARD R53.83,E10.43 [id number] 01/16/2017 12:25:00 01/18/2017 11:47:00 DIS Inpatient NEVAEH LANIER MD [facility] 4TH N/V INSULIN REQUIRED DIABETES [id number] 01/25/2016 15:19:00 01/25/2016 19:23:00 DIS Emergency THOMAS HERNANDEZ MD [facility] ER MIGRAINE/STOMACH PAIN [id number] 12/21/2015 09:28:00 12/21/2015 23:59:59 CLS Outpatient JF KHALIL MD [facility] CARD INTRACTABLE NAUSEA/ VOMITING,GASTRITIS [id number] 11/26/2015 13:40:00 11/30/2015 16:40:00 DIS Outpatient SANDRA VALDEZ DO [facility] SDC PERSISTANT VOMITING HEMATEMESIS [id number] 10/26/2015 20:19:00 10/29/2015 08:38:00 DIS Inpatient RUBIO MEZA DO [facility] 4TH ABD PAIN,INTRACTABLE N/V [id number] 08/21/2015 13:57:00 08/22/2015 11:26:00 DIS Inpatient RUBIO MEZA DO [facility] SURGICAL INTRACTABLE HEADACHE N/V [id number] 07/26/2015 21:39:00 07/27/2015 02:16:00 DIS Emergency JF MALIK DO [facility] ER VOMITING BLOOD [id number] 07/03/2015 01:38:00 07/04/2015 19:15:00 DIS Inpatient RUBIO MEZA DO [facility] 4TH UPPER ABDOMINAL PAIN; HEMATEMESIS;N,V,D,ACUTE [id number] 04/05/2015 15:33:00 04/05/2015 18:28:00 DIS Emergency JF MALIK DO [facility] ER VOMITING,LACK OF APPETITE [id number] 02/26/2015 00:10:00 02/26/2015 23:59:59 CLS Preadmit RUBIO MEZA DO [facility] SURG RCR PORT FLUSH [id number] 02/01/2015 13:00:00 02/25/2015 00:01:00 DIS Outpatient RUBIO MEZA DO [facility] SURG RCR PORT FLUSH [id number] 12/21/2014 12:02:00 12/21/2014 23:59:59 CLS Outpatient VIKKI ROGEL MARQUITA Fuentes [facility] RAD WRIST PAIN ARTHSCOLOSIS OSTEOPOROSIS [id number] 08/05/2014 17:10:00 08/07/2014 13:10:00 DIS Inpatient RUBIO MEZA DO [facility] 4TH N/V HARJINDER MEDIUS [id number] 06/09/2014 21:46:00 06/12/2014 13:00:00 DIS Inpatient RUBIO MEZA DO [facility] 4TH ADRENAL INSUFFICIENCY ,ABD PAIN,VOMITING [id number] 05/08/2014 12:49:00 05/09/2014 15:50:00 DIS Inpatient RUBIO MEZA DO [facility] 4TH NAUSEA VOMITING DEHYDRATION [id number] 03/29/2014 18:56:00 03/29/2014 21:59:00 DIS Emergency 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 [facility] ER VOMITING [id number] 03/01/2014 03:30:00 03/06/2014 09:03:00 DIS Inpatient [facility] [facility] ABD PAIN;HYPOKALEMIA [id number] 02/06/2014 22:53:00 02/11/2014 16:50:00 DIS Inpatient RUBIO MEZA DO [facility] 4TH SWB-DKA,ACUTE RENAL FAILURE,VOLUME DEPLETION [id number] 02/02/2014 18:16:00 02/06/2014 22:53:00 DIS Inpatient RUBIO MEZA DO [facility] 4TH DKA, ACUTE RENAL FAILURE, VOLUME DEPLETION [id number] 01/17/2014 15:36:00 01/20/2014 13:15:00 DIS Inpatient RUBIO MEZA DO [facility] 4TH HYPERGLYCEMIA, NAUSEA /VOMITING, HYPOKALEMIA [id number] 12/18/2013 17:12:00 12/19/2013 09:40:00 DIS Inpatient DERRICK ROGEL RUBIO Chato [facility] 4TH VIRAL GASTROENTERITIS [id number] 08/22/2013 11:21:00 08/22/2013 23:59:59 CLS Outpatient AMANDA POWERS MD [facility] RAD HEMATURIA [id number] 04/20/2018 20:11:00 Document Registration [id number] 12/29/2016 13:05:00 Document Registration [id number] 12/24/2014 10:06:00 Document Registration [id number] 02/25/2013 13:22:00 Document Registration [id number] 12/11/2012 13:41:00 Document Registration [id number] 11/17/2012 19:39:00 Document Registration [id number] 04/22/2017 11:17:00 04/22/2017 16:05:00 [id number] 04/09/2017 10:37:00 04/09/2017 12:45:00 DIS Outpatient Jennifer Coleridge [id number] 03/03/2017 20:03:00 03/03/2017 22:22:00 [id number] 02/02/2017 19:18:00 02/02/2017 21:55:00 [facility] Outpatient [facility] ER [id number] 11/18/2016 10:16:00 11/18/2016 15:57:00 DIS Outpatient [facility] [place] [id number] 11/18/2016 11:40:58 Document Registration [id number] 10/05/2016 01:10:00 Document Registration [id number] 08/21/2015 09:15:35 ACT Document Registration
[2018-04-20 22:55] VITALS: BP 109/57
[2018-04-20 23:05] VITALS: BP 109/57
[2018-04-20] MEDS ORDERED: 1/2 NS W/KCL 20 MEQ/L 1,000 ML IV SCH (23:30)
[2018-04-20] MEDS ORDERED: PROMETHAZINE INJ 25 MG/ML (PHENERGAN) AMP IV PRN (23:30)
[2018-04-20] MEDS ORDERED: ACETAMINOPHEN 325 MG TABLET/CAPLET (TYLENOL) PO PRN (23:30)
[2018-04-20] MEDS: NS W/KCL 20 MEQ/L 1,000 ML IV SCH (23:48)
[2018-04-21] MEDS: ZOLPIDEM 5 MG (AMBIEN) TAB PO PRN ×2 (00:53→21:33)
[2018-04-21 04:00] VITALS: BP 150/71
[2018-04-21] MEDS: NS W/KCL 20 MEQ/L 1,000 ML IV SCH (05:36)
[2018-04-21] MEDS: PANTOPRAZOLE 40 MG (PROTONIX) TAB PO SCH (05:44)
[2018-04-21] MEDS: LEVOTHYROXINE 100 MCG (LEVOTHROID) TAB PO SCH (05:44)
[2018-04-21] MEDS: LEVOTHYROXINE 75 MCG (LEVOTHROID) TABLET PO SCH (05:44)
[2018-04-21 05:57] LABS: BASOPHILS # (AUTO) 0.1 10^3/uL (0.0-0.1); BASOPHILS % (AUTO) 1 % (0-10); EOSINOPHILS # (AUTO) 1.8 10^3/uL (0.0-0.3); EOSINOPHILS % (AUTO) 16 % (0-10); HEMATOCRIT 27 % (35-52); HEMOGLOBIN 8.8 G/DL (11.5-16.0); LYMPHOCYTES # (AUTO) 5.8 X 10^3 (1.0-4.0); LYMPHOCYTES % (AUTO) 52 % (12-44); MEAN CORPUSCULAR HEMOGLOBIN 26 PG (25-34); MEAN CORPUSCULAR HGB CONC 32 G/DL (32-36); MEAN CORPUSCULAR VOLUME 80 FL (80-99); MEAN PLATELET VOLUME 10.8 FL (7.4-10.4); MONOCYTES # (AUTO) 0.8 X 10^3 (0.0-1.0); MONOCYTES % (AUTO) 7 % (0-12); NEUTROPHILS # (AUTO) 2.8 X 10^3 (1.8-7.8); NEUTROPHILS % (AUTO) 25 % (42-75); PLATELET COUNT 248 10^3/uL (130-400); RED BLOOD COUNT 3.39 10^6/uL (4.35-5.85); WHITE BLOOD COUNT 11.2 10^3/uL (4.3-11.0)
[2018-04-21 06:15] LABS: CALCIUM 7.6 MG/DL (8.5-10.1); CREATININE SERUM 1.23 MG/DL (0.60-1.30); POTASSIUM 3.7 MMOL/L (3.6-5.0)
[2018-04-21] MEDS: inSUlin ASPART (NovoLOG) 1 UNIT/0.01 ML (CHARGE PER UNIT) SC SCH ×4 (06:17→21:41)
[2018-04-21] MEDS: fentaNYL INJECTION 100 MCG/2 ML AMP IV PRN ×6 (06:59→21:33)
[2018-04-21] MEDS: HYDROcodone/APAP 7.5 MG/325 MG (LORTAB, LORCET PLUS) TABLET PO PRN ×2 (08:23→23:26)
[2018-04-21] MEDS: ONDANSETRON 4 MG/2 ML (SDV) Z0FRAN IV PRN (08:23)
[2018-04-21 08:30] VITALS: BP 150/71
[2018-04-21] MEDS: carBAMazepine 200 MG (TEGretol) TAB PO SCH (09:26)
[2018-04-21] MEDS: DULoxetine 30 MG (CYMBALTA) CAP PO SCH ×2 (09:26→21:33)
[2018-04-21] MEDS: PREGABALIN 75 MG (LYRICA) CAP PO SCH ×2 (09:26→21:33)
[2018-04-21] MEDS: diphenhydrAMINE 50 MG/ML INJ (BENADRYL) IVP PRN (11:17)
[2018-04-21] MEDS: KETOROLAC 30 MG/ML VIAL IVP PRN (11:17)
--- NOTE | 2018-04-21 11:47 | History & Physical-Hospitalist ---
History of Present Illness HPI/Chief Complaint Pt is 57yoCF with a history of migraine headaches who presented to the ER with CC of migraine. She is unable to provide me any history at this time due to pain and defers to her she questions. He states that her symptoms started on with a stomach ache and then progressed to a migraine. She has very little oral intake in that time and could not get her pain control with her normal home medications prompting her to seek evaluation in the ER. All she will say to me is that the front of her head hurts and she is a little nauseated. She otherwise answered no questions. Her states she has an extensive history and is normally admitted for this at [facility] and follows with a neurologist at [place] for Botox injections which she is due to for this week. Source: patient Date Seen 04/21/18 Time Seen by Provider: 11:05 Attending Physician Horacio Dove MD PCP Migue Patton DO Referring Physician Date of Admission Apr 20, 2018 at 9:00 pm Home Medications & Allergies Home Medications Reviewed patient Home Medication Reconciliation performed by pharmacy medication reconciliations communications tower technician and/or nursing. Patients Allergies have been reviewed. Allergies Allergies Coded Allergies Sulfa (Sulfonamide Antibiotics) (Verified Allergy, Unknown, 11/26/15) Past Fggydii-Aqhupe-Sthejp Hx Past Med/Social Hx: Reviewed Nursing Past Med/Soc Hx Patient Social History Marrital Status: Alcohol Use: Denies Use Recreational Drug Use: No Smoking Status: Never a Smoker 2nd Hand Smoke Exposure: No Physical Abuse Screen: No Sexual Abuse: No Recent Foreign Travel: No Contact w/other who traveled: No Recent Hopitalizations: No (SEE LIST FOR HX) Recent Infectious Disease Expo: No Immunizations Up To Date Tetanus Booster (TDap): More than 5yrs Date of Pneumonia Vaccine: Aug 19, 2014 Date of Influenza Vaccine: Aug 22, 2017 Seasonal Allergies Seasonal Allergies: No Past Medical History Surgeries: Eye Surgery, Gallbladder, Hysterectomy, Orthopedic, Vascular Surgery Currently Using CPAP: No Currently Using BIPAP: No Cardiac: High Cholesterol, Hypertension Neurological: Concussion, Headaches /Migraines, Neuropathy, Seizure Disorder, Traumatic Brain Injury Reproductive: No Sexually Transmitted Disease: No HIV/AIDS: No Female Reproductive Disorders: Denies Hysterectomy Genitourinary: UTI-Chronic Gastrointestinal: Ulcer Musculoskeletal: Arthritis Endocrine: Diabetes, Insulin dep, Hypothyroidsim HEENT: Chronic Ear Infection Loss of Vision: Denies Hearing Impairment: Denies Psychosocial: Anxiety, Depression History of Blood Disorders: No Adverse Reaction to Blood Brewer: No Family History Alcoholism 09 BROTHER Cancer 03 MOTHER (PANCREATIC CA) Myocardial infarction 03 MOTHER No Pertinent Family Hx, Cancer Review of Systems ROS-Unable to Obtain: Very limited- patient would not answer questions due to pain Constitutional: see HPI Gastrointestinal: nausea; No vomiting Psychiatric/Neurological: Headache; Denies Numbness Physical Exam Physical Exam Vital Signs Vital Signs - First Documented 04/20/18 04/20/18 18:50 22:55 Temp 98.8 Pulse 99 Resp 18 B/P (MAP) 146/75 (98) Pulse Ox 98 O2 Delivery Room Air Capillary Refill : Less Than 3 Seconds General Appearance: Mild Distress (laying in bed moaning) Neck: Supple; No JVD, No Thyromegaly Respiratory: Lungs Clear, No Respiratory Distress Cardiovascular: Regular Rate, Rhythm, No Murmur Gastrointestinal: Normal Bowel Sounds, Soft, Other (winces with palpation with hand but no apparent discomfort when palpated with stethoscope) Extremity: Normal Capillary Refill, No Calf Tenderness, No Pedal Edema Neurologic/Psychiatric: Alert, Oriented x3, No Motor/Sensory Deficits Skin: Normal Color, Warm/Dry Results Results/Procedures Labs Laboratory Tests 04/20/18 20:00 04/21/18 05:48 Patient resulted labs reviewed. Assessment/Plan Admission Diagnosis Migraine RADHA Admission Status: Observation Diagnosis/Problems Diagnosis/Problems (1) Migraine headache Status: Acute Assessment & Plan: Will start Migraine Cocktail Magnesium, IVF, Phenergan, toradol Can add Decadron if needed Is due for Botox injection with neurologist As having nausea will hold other home Migraine medications Qualifiers: Migraine type: without aura Status migrainosus presence: with status migrainosus Intractability: intractable Qualified Codes: G43.011 - Migraine without aura, intractable, with status migrainosus (2) Acute kidney injury (nontraumatic) Status: Acute Assessment & Plan: Improved today but still up from baseline of 0.8 Continue IVF (3) Nausea & vomiting Status: Acute Assessment & Plan: Phenergan available prn Qualifiers: Vomiting type: unspecified Vomiting Intractability: non-intractable Qualified Codes: R11.2 - Nausea with vomiting, unspecified (4) IDDM (insulin dependent diabetes mellitus) Status: Acute Assessment & Plan: Continue on SSI Monitor accu-checks (5) Chronic gastritis Status: Acute Assessment & Plan: Continue Protonix Qualifiers: Gastritis type: other gastritis Gastritis bleeding: presence of bleeding unspecified Qualified Codes: K29.50 - Unspecified chronic gastritis without bleeding Clinical Quality Measures DVT/VTE Risk/Contraindication: Risk Factor Score Per Nursin RFS Level Per Nursing on Admit: 1=Low/No VTE PPX HORACIO DOVE MD Apr 21, 2018 11:47
[2018-04-21] MEDS: MAGNESIUM 1 GM/100 ML IVPB 100 ML IV SCH ×2 (11:52→12:59)
[2018-04-21] MEDS: 1/2 NS IV SOLUTION 1,000 ML IV SCH ×3 (11:52→23:26)
[2018-04-21 12:00] VITALS: BP 163/74
[2018-04-21] MEDS: LORazepam 1 MG (ATIVAN) TAB PO PRN ×2 (13:11→21:33)
[2018-04-21 16:19] VITALS: BP 108/54
[2018-04-21 19:40] VITALS: BP 134/62
[2018-04-21 23:38] VITALS: BP 144/69
[2018-04-22] MEDS: KETOROLAC 30 MG/ML VIAL IVP PRN ×2 (04:19→10:03)
[2018-04-22] MEDS: PANTOPRAZOLE 40 MG (PROTONIX) TAB PO SCH (05:57)
[2018-04-22] MEDS: LEVOTHYROXINE 75 MCG (LEVOTHROID) TABLET PO SCH (05:58)
[2018-04-22] MEDS: inSUlin ASPART (NovoLOG) 1 UNIT/0.01 ML (CHARGE PER UNIT) SC SCH ×2 (05:58→11:56)
[2018-04-22] MEDS: LEVOTHYROXINE 100 MCG (LEVOTHROID) TAB PO SCH (05:58)
[2018-04-22] MEDS: diphenhydrAMINE 50 MG/ML INJ (BENADRYL) IVP PRN ×2 (06:35→10:03)
[2018-04-22] MEDS: ONDANSETRON 4 MG/2 ML (SDV) Z0FRAN IV PRN (06:35)
[2018-04-22 08:00] VITALS: BP 144/85
[2018-04-22] MEDS ORDERED: CLOB15CR2 TOP (09:46)
[2018-04-22] MEDS ORDERED: NORT25CA PO (09:46)
[2018-04-22] MEDS ORDERED: CETI-214 PO (09:46)
[2018-04-22] MEDS ORDERED: [UNRECOGNIZED DRUG - OTHER] PO (09:46)
[2018-04-22] MEDS ORDERED: MULT-985 PO (09:46)
[2018-04-22] MEDS ORDERED: EST30C (09:46)
[2018-04-22] MEDS ORDERED: NYST60PO TOP (09:46)
[2018-04-22] MEDS ORDERED: LIDO30CR20 TOP (09:46)
[2018-04-22] MEDS ORDERED: INSU100I23 SQ (09:46)
[2018-04-22] MEDS ORDERED: CHOL5000 PO (09:46)
[2018-04-22] MEDS ORDERED: LEVO175T5 PO (09:46)
[2018-04-22] MEDS ORDERED: DICL100G18 TOP (09:46)
[2018-04-22] MEDS ORDERED: PENT100C3 PO (09:47)
[2018-04-22] MEDS: DULoxetine 30 MG (CYMBALTA) CAP PO SCH (10:02)
[2018-04-22] MEDS: 1/2 NS IV SOLUTION 1,000 ML IV SCH (10:02)
[2018-04-22] MEDS: carBAMazepine 200 MG (TEGretol) TAB PO SCH (10:02)
[2018-04-22] MEDS: PREGABALIN 75 MG (LYRICA) CAP PO SCH (10:02)
[2018-04-22] MEDS: HYDROcodone/APAP 7.5 MG/325 MG (LORTAB, LORCET PLUS) TABLET PO PRN (11:56)
--- NOTE | 2018-04-22 12:06 | Discharge Instructions ---
Discharge Instructions Patient Instructions Patient Instructions: Medications as on the discharge sequence. Appointment with Dr. Patton in approximately one week to follow up on kidney function and hemoglobin Activity & Diet Discharge Diet: ADA Diet Activity as Tolerated: Yes NEVAEH LANIER MD Apr 22, 2018 12:05
--- NOTE | 2018-04-22 12:11 | Progress Note-Hospitalist ---
Progress Note Progress Notes/Assess & Plan Date Seen 04/22/18 Time Seen by Provider: 12:07 Assessment & Plan The patient reports that she is improved although not free of headache. Her creatinine is improved from admission at 2.1-1.23 on the day following. This is felt to represent dehydration as her reports that in addition to her headache and although she was taking oral fluids she was having vomiting and diarrhea. Her previous creatinine from 10/11/17 was opened 86. Her hemoglobin was reported at 11.0 on admission. On 04/21 it was reported at 8.8. There has been no apparent blood loss. She will be discharged but these will need to be followed up at Dr. Patton's office in approximately one week. She also appears rather deeply to hand. She has a collagen vascular disease and takes hydroxychloroquine which would not be compatible with extended solar exposure. Physical exam: She is alert and relatively reticent. Lungs are clear to auscultation. CV is regular without murmur. Impression: Migraine headache. Dehydration. Plan: Refer to discharge sequence. NEVAEH LANIER MD Apr 22, 2018 12:11
--- NOTE | 2018-04-22 12:17 | Short Stay Summary-Hospitalist ---
Short Stay Diagnosis D/C Date 04/22/18 1.migraine. 2.dehydration/acute renal failure. 3.diabetes mellitus type II Clinical Quality Measures DVT/VTE Risk/Contraindication: Risk Factor Score Per Nursin RFS Level Per Nursing on Admit: 1=Low/No VTE PPX NEVAEH LANIER MD Apr 22, 2018 12:17
== END 2018-04-22 12:02 | disposition home or self-care (01) ==
LOC: EDUNIT# 17:35 → ER 17:37 → UNDOADMOB 21:00 → 4TH 21:00 → UNDODISOB 04-22 12:45
PROVIDERS: ADMIT Family Medicine; ATTEND Family Medicine
DX: G43.011 Migraine without aura, intractable, with status migrainosus (principal); E86.0 Dehydration; N17.9 Acute kidney failure, unspecified; E11.9 Type 2 diabetes mellitus without complications; R11.2 Nausea with vomiting, unspecified; K29.50 Unspecified chronic gastritis without bleeding; E78.00 Pure hypercholesterolemia, unspecified; I10 Essential (primary) hypertension; E03.9 Hypothyroidism, unspecified; G40.909 Epilepsy, unspecified, not intractable, without status epilepticus; Z87.820 Personal history of traumatic brain injury; Z79.4 Long term (current) use of insulin
CPT/HCPCS: 36415; 80048; 80053; 80306; 81000; 82962; 83690; 83735; 85025; 86141; 96361; 96374; 96375; G0378

== ENCOUNTER 2018-05-17 18:09 | Emergency (ER) | payer MEDICARE, MEDICAID ==
[~2018-05-17] VITALS: Ht 167.6 cm; Wt 68.0 kg
[~2018-05-17 18:09] MED LIST changes: +CETI-214 PO; +CHOL5000 PO; +CLOB15CR2 TOP; +DICL100G18 TOP; +EST30C; +LEVO175T5 PO; +LIDO30CR20 TOP; +MULT-985 PO; +NYST60PO TOP; +[UNRECOGNIZED DRUG - OTHER] PO
[2018-05-17] MEDS ORDERED: NS IV 500 ML 500 ML IV ONE (18:33)
[2018-05-17] MEDS ORDERED: NS IV 1000 ML 1,000 ML IV SCH (18:33)
--- NOTE | 2018-05-17 18:44 | ED Abdominal Pain ---
General Chief Complaint: Abdominal/GI Problems Stated Complaint: ABD PAIN, VOMITING Nursing Triage Note: pt reports abd pain to LUQ, tenderness to touch, nausea, vomiting, diarrhea, headache starting yesterday. pt reports phenergan at 1400 and hydrocodone at 1530 without any relief. reports having these episodes approx 1/month Sepsis Screen: No Definite Risk Source of Information: Patient, Spouse Exam Limitations: No Limitations History of Present Illness Date Seen by Provider: May 17, 2018 Time Seen by Provider: 18:24 Initial Comments Patient presents to ER by private conveyance with her and a chief complaint she's been having some nausea and vomiting since yesterday as well as diarrhea yesterday but that resolved today. She took some hydrocodone for her abdominal pain that is chronic and she says didn't really help much. She is starting to get a migraine headache which is throbbing sharp pain on the left side of her frontal and temporal lobe. It does not radiate anywhere and she's not having any blindness. There is no aura to the migraine. This is her usual migraine presentation. She took Phenergan most recently about 1:30 this afternoon and did not feel that helped. She took a hydrocodone about 3:30 this afternoon most recently. She took Zofran yesterday but it didn't help. She says it was her last pill of Zofran. 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 She says they recently did a Doppler of the mesentery artery system however they've not received the results. They were advised by the pig machine supervisor that if this was negative that he would recommend they go to a specialist at . The patient had no fevers chills cough shortness of breath chest pain, rash. No blood or dark tarry stool. Her stool this morning was normal formed. She says she did take a Maxalt at about 7 this morning and try to get some sleep but was unable to sleep due to being up all night nausea and vomiting. Allergies and Home Medications Allergies Coded Allergies: Sulfa (Sulfonamide Antibiotics) (Verified Allergy, Unknown, 11/26/15) Home Medications Albuterol Sulfate 18 Gm Hfa.aer.ad, 2 PUFF IH Q6H PRN for SHORTNESS OF BREATH, ( Reported) Alprazolam 1 Mg Tablet, 1 MG PO DAILY PRN for ANXIETY, (Reported) Atorvastatin Calcium 40 Mg Tablet, 40 MG PO HS, (Reported) Carbamazepine 200 Mg Tab.er.12h, 200 MG PO BID, (Reported) Cetirizine HCl 10 Mg Tablet, 10 MG PO DAILY, (Reported) Cholecalciferol (Vitamin D3) 5,000 Unit Capsule, 5,000 UNIT PO DAILY, (Reported) Clobetasol Propionate 15 Gm Cream..g., TOP UD PRN for SKIN, (Reported) Dextroamphetamine/Amphetamine 20 Mg Tablet, 20 MG PO BID, (Reported) Diclofenac Sodium 100 Gm Gel..gram., TOP UD PRN for JOINT PAIN, (Reported) Duloxetine HCl 60 Mg Capsule.dr, 60 MG PO BID, (Reported) Estrogens Conjugated 30 Gm Cr, UD, (Reported) Estrogens, Conjugated 0.625 Mg Tablet, 0.625 MG PO DAILY, (Reported) Fesoterodine Fumarate 4 Mg Tab.sr.24h, 4 MG PO DAILY, (Reported) Fludrocortisone Acetate 0.1 Mg Tab, 0.1 MG PO BID, (Reported) Fluticasone Propionate 16 Gm [place].susp, 1 SPRAY NS BID PRN for ALLERGIES, ( Reported) Glucagon,Human Recombinant 1 Mg/Kit Soln, UD PRN for BLOOD SUGAR, (Reported) Hydrocodone/Acetaminophen 1 Each Tablet, 1 TAB PO QID PRN for PAIN-MODERATE, ( Reported) Hydroxychloroquine Sulfate 200 Mg Tablet, 200 MG PO DAILY, (Reported) Insulin Degludec 100 Unit/1 Ml Insuln.pen, 17 UNITS SQ HS, (Reported) Insulin Lispro 100 Unit/1 Ml Insuln.pen, 4 UNITS SQ 0800,1200, (Reported) Insulin Lispro 100 Unit/1 Ml Insuln.pen, 10 UNIT SQ 1800, (Reported) Levothyroxine Sodium 175 Mcg Tablet, 175 MCG PO DAILY, (Reported) Lidocaine/Prilocaine 30 Gm Cream..g., TOP UD PRN for SKIN, (Reported) Lorazepam 1 Mg Tablet, 1 MG PO BID, (Reported) Montelukast Sodium 10 Mg Tablet, 10 MG PO DAILY, (Reported) Multivitamin with Minerals 1 Each Tablet, 1 TAB PO DAILY, (Reported) Nortriptyline HCl 25 Mg Capsule, 25 MG PO HS, (Reported) Nystatin 60 Gm Powder, TOP UD PRN for RASH, (Reported) Pantoprazole Sodium 40 Mg Tablet.dr, 40 MG PO DAILY, (Reported) Pentosan Polysulfate Sodium 100 Mg Capsule, 100 MG PO TID, (Reported) UNKNOWN LAST FILL DATE Potassium Chloride 10 Meq Capsule.er, 10 MEQ PO DAILY, (Reported) Pregabalin 150 Mg Capsule, 150 MG PO BID, (Reported) Rizatriptan Benzoate 10 Mg Tablet, 10 MG PO UD PRN for MIGRAINE, (Reported) Sucralfate 1 Gm/10 Ml Oral.susp, 1 GM PO AC, (Reported) Tizanidine HCl 4 Mg Tablet, 4 MG PO TID PRN for MUSCLE SPASMS, (Reported) Zolpidem Tartrate 10 Mg Tablet, 10 MG PO HS, (Reported) [Biotex] , 200 UNITS PO UD PRN for MIGRAINE, (Reported) Patient Home Medication List Home Medication List Reviewed: Yes Review of Systems Constitutional: No chills, No diaphoresis EENTM: No Blurred Vision, No Double Vision Respiratory: Denies Cough, Denies Shortness of Air Cardiovascular: Denies Chest Pain, Denies Edema Gastrointestinal: Denies Abdomen Distended; Abdominal Pain; Denies Constipated ; Diarrhea; Denies Difficulty Swallowing; Nausea, Poor Appetite, Poor Fluid Intake, Vomiting Genitourinary: Denies Burning, Denies Discharge, Denies Drainage Musculoskeletal: No back pain, No joint pain Skin: No pruritus, No rash Psychiatric/Neurological: Headache; Denies Numbness, Denies Paresthesia, Denies Seizure; Tremors (chronic) Past Gspunib-Rhoajl-Ricsas Hx Patient Social History Alcohol Use: Denies Use Recreational Drug Use: No Smoking Status: Never a Smoker 2nd Hand Smoke Exposure: No Recent Foreign Travel: No Contact w/Someone Who Travel: No Recent Infectious Disease Expo: No Recent Hopitalizations: No (SEE LIST FOR HX) Immunizations Up To Date Tetanus Booster (TDap): More than 5yrs Date of Pneumonia Vaccine: Aug 19, 2014 Date of Influenza Vaccine: Aug 22, 2017 Seasonal Allergies Seasonal Allergies: No Past Medical History Surgeries: Yes (PORT,CARPAL TUNNEL, R.HIP, BILAT SHOULDER SURGERY, port placement) Eye Surgery, Gallbladder, Hysterectomy, Orthopedic, Vascular Surgery Respiratory: Yes Asthma Currently Using CPAP: No Currently Using BIPAP: No Cardiac: Yes High Cholesterol, Hypertension Neurological: Yes Concussion, Headaches /Migraines, Neuropathy, Seizure Disorder, Traumatic Brain Injury : No Reproductive Disorders: No Female 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 CHRONIC ABDOMINAL PAIN. ) Ulcer Musculoskeletal: Yes Arthritis Endocrine: Yes (ADRENAL DISEASE) Diabetes, Insulin dep, Hypothyroidsim HEENT: Yes Chronic Ear Infection Loss of Vision: Denies Hearing Impairment: Denies Cancer: No Psychosocial: Yes Anxiety, Depression Integumentary: No Blood Disorders: No Adverse Reaction/Blood Tranf: No Family Medical History Alcoholism 09 BROTHER Cancer 03 MOTHER (PANCREATIC CA) Myocardial infarction 03 MOTHER No Pertinent Family Hx, Cancer Physical Exam Vital Signs Vital Signs - First Documented 05/17/18 18:22 Pulse 104 Resp 22 B/P (MAP) 134/69 (90) Pulse Ox 98 O2 Delivery Room Air Capillary Refill : Less Than 3 Seconds General Appearance: WD/WN, no apparent distress HEENT: PERRL/EOMI, normal ENT inspection, pharynx normal (oral mucosa is moist) , TM abnormal (R) (mild mucoid effusion without erythema, bulging or loss of landmarks of the TM.) Neck: non-tender, full range of motion, supple, normal inspection Respiratory: chest non-tender, lungs clear, normal breath sounds, no respiratory distress, no accessory muscle use Cardiovascular: normal peripheral pulses, regular rate, rhythm, no edema, no murmur Peripheral Pulses: 1+ Dorsalis Pedis (R), 1+ Left Dors-Pedis (L); 2+ Radial Pulses (R), 2+ Radial Pulses (L) Gastrointestinal: normal bowel sounds, soft; No rebound; tenderness (diffuse), other (no psoas sign, pain over McBurney's point, Rovsing sign, other mesenteric signs.) Extremities: normal range of motion, no pedal edema, no calf tenderness, normal capillary refill Neurologic/Psychiatric: alert, normal mood/affect, oriented x 3 Skin: normal color, warm/dry Focused Exam Lactate Level 05/17/18 18:46: Lactic Acid Level 1.02 Lactic Acid Level Laboratory Tests Test 05/17/18 18:46 Lactic Acid Level 1.02 MMOL/L (0.50-2.00) Progress/Results/Core Measures Results/Orders Lab Results Laboratory Tests Test 05/17/18 18:46 05/17/18 20:29 Range/Units White Blood Count 8.1 4.3-11.0 10^3/uL Red Blood Count 3.86 L 4.35-5.85 10^6/uL Hemoglobin 9.9 L 11.5-16.0 G/DL Hematocrit 31 L 35-52 % Mean Corpuscular Volume 79 L 80-99 FL Mean Corpuscular Hemoglobin 26 25-34 PG Mean Corpuscular Hemoglobin Concent 33 32-36 G/DL Red Cell Distribution Width 15.5 H 10.0-14.5 % Platelet Count 256 130-400 10^3/uL Mean Platelet Volume 10.9 H 7.4-10.4 FL Neutrophils (%) (Auto) 36 L 42-75 % Lymphocytes (%) (Auto) 42 12-44 % Monocytes (%) (Auto) 6 0-12 % Eosinophils (%) (Auto) 16 H 0-10 % Basophils (%) (Auto) 1 0-10 % Neutrophils # (Auto) 2.9 1.8-7.8 X 10^3 Lymphocytes # (Auto) 3.4 1.0-4.0 X 10^3 Monocytes # (Auto) 0.5 0.0-1.0 X 10^3 Eosinophils # (Auto) 1.3 H 0.0-0.3 10^3/uL Basophils # (Auto) 0.1 0.0-0.1 10^3/uL Neutrophils % (Manual) 39 % Lymphocytes % (Manual) 41 % Monocytes % (Manual) 4 % Eosinophils % (Manual) 16 % Microcytosis SLIGHT Sodium Level 140 135-145 MMOL/L Potassium Level 3.9 3.6-5.0 MMOL/L Chloride Level 105 98-107 MMOL/L Carbon Dioxide Level 23 21-32 MMOL/L Anion Gap 12 5-14 MMOL/L Blood Urea Nitrogen 11 7-18 MG/DL Creatinine 0.95 0.60-1.30 MG/DL Estimat Glomerular Filtration Rate > 60 BUN/Creatinine Ratio 12 Glucose Level 207 H 70-105 MG/DL Lactic Acid Level 1.02 0.50-2.00 MMOL/L Calcium Level 9.1 8.5-10.1 MG/DL Magnesium Level 1.8 1.8-2.4 MG/DL Total Bilirubin 0.3 0.1-1.0 MG/DL Aspartate Amino Transf (AST/SGOT) 19 5-34 U/L Alanine Aminotransferase (ALT/SGPT) 11 0-55 U/L Alkaline Phosphatase 83 40-136 U/L C-Reactive Protein High Sensitivity 0.12 0.00-0.50 MG/DL Total Protein 6.2 L 6.4-8.2 GM/DL Albumin 3.7 3.2-4.5 GM/DL Lipase 16 8-78 U/L Urine Color YELLOW Urine Clarity SLIGHTLY CLOUDY Urine pH 5 5-9 Urine Specific [place] 1.020 1.016-1.022 Urine Protein 2+ H NEGATIVE Urine Glucose (UA) 1+ H NEGATIVE Urine Ketones 3+ H NEGATIVE Urine Nitrite NEGATIVE NEGATIVE Urine Bilirubin NEGATIVE NEGATIVE Urine Urobilinogen NORMAL NORMAL MG/DL Urine Leukocyte Esterase 3+ H NEGATIVE Urine RBC (Auto) NEGATIVE NEGATIVE Urine RBC NONE /HPF Urine WBC 10-25 H /HPF Urine Squamous Epithelial Cells 2-5 /HPF Urine Crystals NONE /LPF Urine Bacteria FEW H /HPF Urine Casts PRESENT /LPF Urine Hyaline Casts RARE /LPF Urine Mucus MODERATE H /LPF Urine Culture Indicated YES My Orders Orders - CARA LEWIS Cbc With Automated Diff (05/17/18 18:33) Comprehensive Metabolic Panel (05/17/18 18:33) Hs C Reactive Protein (05/17/18 18:33) Lactic Acid Analyzer (05/17/18 18:33) Lipase (05/17/18 18:33) Magnesium (05/17/18 18:33) Ua Culture If Indicated (05/17/18 18:33) Saline Lock/Iv-Start (05/17/18 18:33) Ns Iv 500 Ml (Sodium Chloride 0.9%) (05/17/18 18:33) Ns Iv 1000 Ml (Sodium Chloride 0.9%) (05/17/18 18:33) Abdomen/Kub 1view (05/17/18 18:33) Ketorolac Injection (Toradol Injection) (05/17/18 18:45) Sumatriptan Injection (Imitrex Injection (05/17/18 18:45) Prochlorperazine Injection (Compazine In (05/17/18 18:45) Diphenhydramine Injection (Benadryl Inje (05/17/18 18:45) Ondansetron Injection (Zofran Injectio (05/17/18 18:45) Manual Differential (05/17/18 18:46) Urine Culture (05/17/18 20:29) Nitrofurantoin Capsule,Macro (Macrobid C (05/17/18 21:15) Medications Given in ED Current Medications Medications Dose Ordered Sig/Reva Route Start Time Stop Time Status Last Admin Dose Admin Diphenhydramine HCl 25 mg ONCE ONCE IM 05/17/18 18:45 05/17/18 18:46 DC 05/17/18 19:02 25 MG Ketorolac Tromethamine 30 mg ONCE ONCE IVP 05/17/18 18:45 05/17/18 18:46 DC 05/17/18 19:00 30 MG Ondansetron HCl 12 mg ONCE ONCE IVP 05/17/18 18:45 05/17/18 18:46 DC 05/17/18 18:57 12 MG Prochlorperazine Edisylate 10 mg ONCE ONCE IV 05/17/18 18:45 05/17/18 18:46 DC 05/17/18 19:05 10 MG Sodium Chloride 500 ml @ 0 mls/hr Q0M ONCE IV 05/17/18 18:33 05/17/18 18:37 DC 05/17/18 18:57 0 MLS/HR Sumatriptan Succinate 6 mg ONCE ONCE SQ 05/17/18 18:45 05/17/18 18:46 DC 05/17/18 19:10 6 MG Vital Signs/I&O 05/17/18 18:22 Pulse 104 Resp 22 B/P (MAP) 134/69 (90) Pulse Ox 98 O2 Delivery Room Air Blood Pressure Mean: 90 Progress Progress Note #1: Time: 18:46 Progress Note The patient's rhythmic tremors and facial tics and full body ticks become more pronounced as the interviewer enters the room compared to when she was observed from the hallway out of her view. Her symptoms are a part of a long ongoing chronic process that is still being worked up outpatient. He would be curious to know the results of the Doppler ultrasound of the mesenteric artery system however we can get a lactate today that should rule out significant mesenteric ischemia. We'll get a plain film of her abdomen as her bowel sounds are on the class and side to see if she is constipated or if the possibility of an ileus secondary to her long-standing opiate use Versus other. We'll give her a large dose of Zofran in addition to some Compazine and sumatriptan and Toradol for her migraine and abdominal pain. We'll give her a 20 mL/kg fluid bolus and repeat check some labs on her to make sure her electrolytes and kidney function are okay as in the past she has had problems with acute kidney injury secondary to dehydration and electrolyte derangement secondary to her nausea and vomiting. If her labs look okay and she is able to get some rest will get her sent home with some more Zofran and a follow-up plan with PCP and gastroenterology. Progress Note #2: Time: 21:07 Progress Note Patient's nausea has resolved and she says her pain is much better. She has a UTI and start her with her first dose of Macrobid tonight and have her pick him up at [facility] tomorrow. She informs me she has a appointment with Dr. Patton on Sunday. Diagnostic Imaging Diagonstic Imaging: Xray Plain Films/CT/US/NM/MRI: abdomen (1v) Comments No free air in the abdomen. Nonspecific bowel gas pattern. No evidence of transition point or obstruction, ileus or other acute abnormality. Surgical Clips noted VIA [facility], [facility]. SUPERIOR, [place] NAME: MALLORY MONAE [facility] REC#: [id number] PT STATUS: REG ER : 1960 PHYSICIAN: CARA LEWIS MD ADMIT DATE: 05/17/18/ER Draft Date of Exam:05/17/18 ABDOMEN/KUB 1VIEW INDICATION: Abdominal pain, left upper quadrant tenderness, nausea vomiting and diarrhea. EXAMINATION: Two views abdomen dated 05/17/2018. FINDINGS: Clips in the right upper quadrant noted. Scattered air and stool throughout the colon seen to the rectosigmoid. No obstructive process is seen. A single minimally prominent air-filled small bowel loop in the left abdomen noted but no significant bowel loop dilatation appreciated. IMPRESSION: 1. Nonspecific nonobstructive bowel gas pattern. Dictated on workstation # [id number] Dict: 05/17/181931 Trans: 05/17/181939 [id number] Interpreted by: MELLY LAW MD Electronically signed by: Reviewed: Reviewed by Me Departure Impression Primary Impression: Nausea and vomiting Qualified Codes: R11.2 - Nausea with vomiting, unspecified Additional Impressions: Chronic abdominal pain Migraine Qualified Codes: G43.009 - Migraine without aura, not intractable, without status migrainosus UTI (urinary tract infection) Qualified Codes: N30.00 - Acute cystitis without hematuria Disposition: HOME, SELF-CARE Condition: Stable Departure-Patient Inst. Decision time for Depature: 21:06 Referrals: RUBIO PATTON DO (PCP/Family) Primary Care Physician Patient Instructions: Acute Cystitis (DC) Add. 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 Drink lots of fluids. Use the Zofran and Phenergan as necessary to control your nausea. Keep your follow-up appointment with your primary care doctor. All discharge instructions reviewed with patient and/or family. Voiced understanding. Scripts Ondansetron (Ondansetron Odt) 4 Mg Tab.rapdis 8 MG PO Q6H PRN for NAUSEA/VOMITING, #20 TAB 0 Refills Prov: CARA LEWIS 05/17/18 Nitrofurantoin Monohyd/M-Cryst (Macrobid 100 mg Capsule) 100 Mg Capsule 1 TAB PO BID for 7 Days, #14 CAP 0 Refills Prov: CARA LEWIS 05/17/18 Copy Copies To 1: RUBIO PATTON TITUS J May 17, 2018 18:44
[2018-05-17] MEDS ORDERED: KETOROLAC 30 MG/ML VIAL IVP ONE (18:45)
[2018-05-17] MEDS ORDERED: SUMAtriptan 6 MG/0.5 ML (IMITREX) INJ SQ ONE (18:45)
[2018-05-17] MEDS ORDERED: ONDANSETRON 4 MG/2 ML (SDV) Z0FRAN IVP ONE (18:45)
[2018-05-17] MEDS ORDERED: PROCHLORPERAZINE 10 MG/2ML INJ (COMPAZINE) IV ONE (18:45)
[2018-05-17] MEDS ORDERED: diphenhydrAMINE 50 MG/ML INJ (BENADRYL) IM ONE (18:45)
[2018-05-17 18:52] LABS: BASOPHILS # (AUTO) 0.1 10^3/uL (0.0-0.1); BASOPHILS % (AUTO) 1 % (0-10); EOSINOPHILS # (AUTO) 1.3 10^3/uL (0.0-0.3); EOSINOPHILS % (AUTO) 16 % (0-10); HEMATOCRIT 31 % (35-52); HEMOGLOBIN 9.9 G/DL (11.5-16.0); LYMPHOCYTES # (AUTO) 3.4 X 10^3 (1.0-4.0); LYMPHOCYTES % (AUTO) 42 % (12-44); MEAN CORPUSCULAR HEMOGLOBIN 26 PG (25-34); MEAN CORPUSCULAR HGB CONC 33 G/DL (32-36); MEAN CORPUSCULAR VOLUME 79 FL (80-99); MEAN PLATELET VOLUME 10.9 FL (7.4-10.4); MONOCYTES # (AUTO) 0.5 X 10^3 (0.0-1.0); MONOCYTES % (AUTO) 6 % (0-12); NEUTROPHILS # (AUTO) 2.9 X 10^3 (1.8-7.8); NEUTROPHILS % (AUTO) 36 % (42-75); PLATELET COUNT 256 10^3/uL (130-400); RED BLOOD COUNT 3.86 10^6/uL (4.35-5.85); RED CELL DISTRIBUTION WIDTH 15.5 % (10.0-14.5); WHITE BLOOD COUNT 8.1 10^3/uL (4.3-11.0)
[2018-05-17 19:13] LABS: ALANINE AMINOTRANSFERASE 11 U/L (0-55); ALBUMIN 3.7 GM/DL (3.2-4.5); ALKALINE PHOSPHATASE 83 U/L (40-136); BILIRUBIN,TOTAL 0.3 MG/DL (0.1-1.0); BUN/CREATININE RATIO 12; CALCIUM 9.1 MG/DL (8.5-10.1); CARBON DIOXIDE 23 MMOL/L (21-32); CHLORIDE 105 MMOL/L (98-107); CREATININE SERUM 0.95 MG/DL (0.60-1.30); GFR ESTIMATED > 60; GLUCOSE 207 MG/DL (70-105); LIPASE 16 U/L (8-78); MAGNESIUM 1.8 MG/DL (1.8-2.4); POTASSIUM 3.9 MMOL/L (3.6-5.0); SODIUM 140 MMOL/L (135-145); TOTAL PROTEIN 6.2 GM/DL (6.4-8.2)
[2018-05-17 19:27] LABS: LYMPHOCYTES % (MANUAL) 41 %; MONOCYTES % (MANUAL) 4 %; NEUTROPHILS % (MANUAL) 39 %
[2018-05-17 19:28] LABS: EOSINOPHILS % (MANUAL) 16 %; MICROCYTOSIS SLIGHT
--- NOTE | 2018-05-17 19:41 | Diagnostic Imaging Report ---
INDICATION: Abdominal pain, left upper quadrant tenderness, nausea vomiting and diarrhea. EXAMINATION: Two views abdomen dated 05/17/2018. FINDINGS: Clips in the right upper quadrant noted. Scattered air and stool throughout the colon seen to the rectosigmoid. No obstructive process is seen. A single minimally prominent air-filled small bowel loop in the left abdomen noted but no significant bowel loop dilatation appreciated. IMPRESSION: 1. Nonspecific nonobstructive bowel gas pattern. Dictated by: Dictated on workstation # [id number]
[2018-05-17 20:43] LABS: BILIRUBIN,URINE NEGATIVE (NEGATIVE); CLARITY,URINE SLIGHTLY CLOUDY; COLOR,URINE YELLOW; GLUCOSE, URINE (UA) 1+ (NEGATIVE); KETONES,URINE 3+ (NEGATIVE); LEUKOCYTE ESTERASE ,URINE 3+ (NEGATIVE); NITRITE,URINE NEGATIVE (NEGATIVE); PH,URINE 5 (5-9); PROTEIN,URINE 2+ (NEGATIVE); UROBILINOGEN,URINE NORMAL (NORMAL)
[2018-05-17 20:52] LABS: BACTERIA,URINE FEW /HPF; HYALINE CASTS, URINE RARE /LPF
[2018-05-17] MEDS ORDERED: NITR-65 PO (21:09)
[2018-05-17] MEDS ORDERED: ONDA4TAB11 PO (21:09)
[2018-05-17] MEDS ORDERED: NITROFURANTOIN 100 MG (MACROBID) CAPSULE PO ONE (21:15)
[2018-05-17 21:27] VITALS: BP 105/59
== END 2018-05-17 21:27 | disposition home or self-care (01) ==
LOC: EDUNIT# 18:09 → ER 18:11
DX: G89.29 Other chronic pain (principal); R10.12 Left upper quadrant pain; N39.0 Urinary tract infection, site not specified; R11.2 Nausea with vomiting, unspecified; G43.909 Migraine, unspecified, not intractable, without status migrainosus; F41.9 Anxiety disorder, unspecified; F32.9 Major depressive disorder, single episode, unspecified; G40.909 Epilepsy, unspecified, not intractable, without status epilepticus; E78.00 Pure hypercholesterolemia, unspecified; I10 Essential (primary) hypertension; J45.909 Unspecified asthma, uncomplicated; Z87.19 Personal history of other diseases of the digestive system; Z90.710 Acquired absence of both cervix and uterus; Z87.820 Personal history of traumatic brain injury; Z79.4 Long term (current) use of insulin; Z88.2 Allergy status to sulfonamides
CPT/HCPCS: 36415; 74018; 80053; 81000; 83605; 83690; 83735; 85007; 85027; 86141; 87088; 96361; 96372; 96374; 96375

== ENCOUNTER 2018-06-12 16:17 | Emergency (ER) | payer MEDICARE, MEDICAID ==
[~2018-06-12] VITALS: Ht 165.1 cm; Wt 63.0 kg
[~2018-06-12 16:17] MED LIST changes: +NITR-65 PO; +ONDA4TAB11 PO
[2018-06-12] MEDS ORDERED: diphenhydrAMINE 50 MG/ML INJ (BENADRYL) IVP ONE (17:00)
[2018-06-12] MEDS ORDERED: NS IV 1000 ML 1,000 ML IV SCH (17:00)
[2018-06-12] MEDS ORDERED: KETOROLAC 30 MG/ML VIAL IVP ONE (17:00)
[2018-06-12] MEDS ORDERED: ONDANSETRON 4 MG/2 ML (SDV) Z0FRAN IVP ONE (17:00)
[2018-06-12] MEDS ORDERED: PROCHLORPERAZINE 10 MG/2ML INJ (COMPAZINE) IV ONE (17:00)
--- NOTE | 2018-06-12 17:05 | ED Abdominal Pain ---
General Chief Complaint: Abdominal/GI Problems Stated Complaint: ABD PROBLEMS, MIGRANE Nursing Triage Note: PT PRESENT TO ED WITH COMPLAINTS OF UPPER ABDOMINAL/EPIGASTRIC PAIN, N/V/D, AND MIGRAINE SINCE EARLY THIS AM. Sepsis Screen: No Definite Risk Source of Information: Patient, Family Exam Limitations: No Limitations History of Present Illness Date Seen by Provider: Jun 12, 2018 Time Seen by Provider: 16:45 Initial Comments Patient is a 58-year-old female who presented to the emergency room accompanied by her complaining of migraine, nausea, vomiting, diarrhea and epigastric abdominal pain and cramping that started this morning. She reports that she was seen about a month ago for the same exact thing and she had a diagnosis of urinary tract infection and was sent home with a prescription for antibiotics. She reports that she has chronic migraines along with nausea but she usually does not vomit or have the abdominal cramping. She has been seen numerous times in this emergency room for similar complaints of a migraine. Timing/Duration: 12 Hours Severity/Quality: Cramping Location: Epigastric, Generalized Abdomen Radiation: No Radiation Activities at Onset: None Associated Symptoms: No Fever/Chills; Headache, Nausea/Vomiting Allergies and Home Medications Allergies Coded Allergies: Sulfa (Sulfonamide Antibiotics) (Verified Allergy, Unknown, 11/26/15) Home Medications Albuterol Sulfate 18 Gm Hfa.aer.ad, 2 PUFF IH Q6H PRN for SHORTNESS OF BREATH, ( Reported) Alprazolam 1 Mg Tablet, 1 MG PO DAILY PRN for ANXIETY, (Reported) Atorvastatin Calcium 40 Mg Tablet, 40 MG PO HS, (Reported) Carbamazepine 200 Mg Tab.er.12h, 200 MG PO BID, (Reported) Cetirizine HCl 10 Mg Tablet, 10 MG PO DAILY, (Reported) Cholecalciferol (Vitamin D3) 5,000 Unit Capsule, 5,000 UNIT PO DAILY, (Reported) Clobetasol Propionate 15 Gm Cream..g., TOP UD PRN for SKIN, (Reported) Dextroamphetamine/Amphetamine 20 Mg Tablet, 20 MG PO BID, (Reported) Diclofenac Sodium 100 Gm Gel..gram., TOP UD PRN for JOINT PAIN, (Reported) Duloxetine HCl 60 Mg Capsule.dr, 60 MG PO BID, (Reported) Estrogens Conjugated 30 Gm Cr, UD, (Reported) Estrogens, Conjugated 0.625 Mg Tablet, 0.625 MG PO DAILY, (Reported) Fesoterodine Fumarate 4 Mg Tab.sr.24h, 4 MG PO DAILY, (Reported) Fludrocortisone Acetate 0.1 Mg Tab, 0.1 MG PO BID, (Reported) Fluticasone Propionate 16 Gm [place].susp, 1 SPRAY NS BID PRN for ALLERGIES, ( Reported) Glucagon,Human Recombinant 1 Mg/Kit Soln, UD PRN for BLOOD SUGAR, (Reported) Hydrocodone/Acetaminophen 1 Each Tablet, 1 TAB PO QID PRN for PAIN-MODERATE, ( Reported) Hydroxychloroquine Sulfate 200 Mg Tablet, 200 MG PO DAILY, (Reported) Insulin Degludec 100 Unit/1 Ml Insuln.pen, 17 UNITS SQ HS, (Reported) Insulin Lispro 100 Unit/1 Ml Insuln.pen, 4 UNITS SQ 0800,1200, (Reported) Insulin Lispro 100 Unit/1 Ml Insuln.pen, 10 UNIT SQ 1800, (Reported) Levothyroxine Sodium 175 Mcg Tablet, 175 MCG PO DAILY, (Reported) Lidocaine/Prilocaine 30 Gm Cream..g., TOP UD PRN for SKIN, (Reported) Lorazepam 1 Mg Tablet, 1 MG PO BID, (Reported) Montelukast Sodium 10 Mg Tablet, 10 MG PO DAILY, (Reported) Multivitamin with Minerals 1 Each Tablet, 1 TAB PO DAILY, (Reported) Nitrofurantoin Monohyd/M-Cryst 100 Mg Capsule, 1 TAB PO BID Prescribed by: CARA LEWIS on 05/17/182108 Nortriptyline HCl 25 Mg Capsule, 25 MG PO HS, (Reported) Nystatin 60 Gm Powder, TOP UD PRN for RASH, (Reported) Ondansetron 4 Mg Tab.rapdis, 8 MG PO Q6H PRN for NAUSEA/VOMITING Prescribed by: CARA LEWIS on 05/17/182108 Pantoprazole Sodium 40 Mg Tablet.dr, 40 MG PO DAILY, (Reported) Pentosan Polysulfate Sodium 100 Mg Capsule, 100 MG PO TID, (Reported) UNKNOWN LAST FILL DATE Potassium Chloride 10 Meq Capsule.er, 10 MEQ PO DAILY, (Reported) Pregabalin 150 Mg Capsule, 150 MG PO BID, (Reported) Rizatriptan Benzoate 10 Mg Tablet, 10 MG PO UD PRN for MIGRAINE, (Reported) Sucralfate 1 Gm/10 Ml Oral.susp, 1 GM PO AC, (Reported) Tizanidine HCl 4 Mg Tablet, 4 MG PO TID PRN for MUSCLE SPASMS, (Reported) Zolpidem Tartrate 10 Mg Tablet, 10 MG PO HS, (Reported) [Biotex] , 200 UNITS PO UD PRN for MIGRAINE, (Reported) Patient Home Medication List Home Medication List Reviewed: Yes Review of Systems Constitutional: see HPI; No chills, No diaphoresis, No fever Cardiovascular: Denies Edema Gastrointestinal: See HPI, Abdominal Pain (epigastric cramping abdominal pain) , Diarrhea, Nausea, Vomiting All Other Systems Reviewed Negative Unless Noted: Yes Past Nnmxufu-Jpytma-Ympsrl Hx Past Med/Social Hx: Reviewed Nursing Past Med/Soc Hx Patient Social History Alcohol Use: Denies Use Recreational Drug Use: No Smoking Status: Never a Smoker 2nd Hand Smoke Exposure: No Recent Foreign Travel: No Contact w/Someone Who Travel: No Recent Infectious Disease Expo: No Recent Hopitalizations: No (SEE LIST FOR HX) Physical Abuse: No Sexual Abuse: No Mistreated: No Fear: No Immunizations Up To Date Tetanus Booster (TDap): More than 5yrs Date of Pneumonia Vaccine: Aug 19, 2014 Date of Influenza Vaccine: Aug 22, 2017 Seasonal Allergies Seasonal Allergies: No Past Medical History Surgeries: Yes (PORT,CARPAL TUNNEL, R.HIP, BILAT SHOULDER SURGERY, port placement) Eye Surgery, Gallbladder, Hysterectomy, Orthopedic, Vascular Surgery Respiratory: Yes Asthma Currently Using CPAP: No Currently Using BIPAP: No Cardiac: Yes High Cholesterol, Hypertension Neurological: Yes Concussion, Headaches /Migraines, Neuropathy, Seizure Disorder, Traumatic Brain Injury Reproductive Disorders: No Female Reproductive Disorders: 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 CHRONIC ABDOMINAL PAIN. ) Ulcer Musculoskeletal: Yes Arthritis Endocrine: Yes (ADRENAL DISEASE) Diabetes, Insulin dep, Hypothyroidsim HEENT: Yes Chronic Ear Infection Loss of Vision: Denies Hearing Impairment: Denies Cancer: No Psychosocial: Yes Anxiety, Depression Nursing Suicide Risk Score: 0 Integumentary: No Blood Disorders: No Adverse Reaction/Blood Tranf: No Family Medical History Reviewed Nursing Family Hx Alcoholism 09 BROTHER Cancer 03 MOTHER (PANCREATIC CA) Myocardial infarction 03 MOTHER No Pertinent Family Hx, Cancer Physical Exam Vital Signs Capillary Refill : Less Than 3 Seconds Height/Weight/BMI Height: 5'5.00" Weight: 139lbs. 3.2oz. 63.194832kl; 24.2 BMI Method:Stated General Appearance: WD/WN, no apparent distress Respiratory: chest non-tender, lungs clear, normal breath sounds, no respiratory distress, no accessory muscle use Cardiovascular: regular rate, rhythm, no edema, no gallop, no JVD, no murmur Gastrointestinal: normal bowel sounds, non tender, soft, no organomegaly, no pulsatile mass Neurologic/Psychiatric: alert, normal mood/affect, oriented x 3 Focused Exam Lactate Level 06/12/18 17:40: Lactic Acid Level 1.18 Lactic Acid Level Laboratory Tests Test 06/12/18 17:40 Lactic Acid Level 1.18 MMOL/L (0.50-2.00) Progress/Results/Core Measures Results/Orders Lab Results Laboratory Tests Test 06/12/18 17:40 06/12/18 18:50 06/12/18 20:12 Range/Units White Blood Count 6.6 4.3-11.0 10^3/uL Red Blood Count 3.65 L 4.35-5.85 10^6/uL Hemoglobin 9.4 L 11.5-16.0 G/DL Hematocrit 29 L 35-52 % Mean Corpuscular Volume 79 L 80-99 FL Mean Corpuscular Hemoglobin 26 25-34 PG Mean Corpuscular Hemoglobin Concent 33 32-36 G/DL Red Cell Distribution Width 15.6 H 10.0-14.5 % Platelet Count 251 130-400 10^3/uL Mean Platelet Volume 10.5 H 7.4-10.4 FL Neutrophils (%) (Auto) 44 42-75 % Lymphocytes (%) (Auto) 41 12-44 % Monocytes (%) (Auto) 6 0-12 % Eosinophils (%) (Auto) 9 0-10 % Basophils (%) (Auto) 1 0-10 % Neutrophils # (Auto) 2.9 1.8-7.8 X 10^3 Lymphocytes # (Auto) 2.7 1.0-4.0 X 10^3 Monocytes # (Auto) 0.4 0.0-1.0 X 10^3 Eosinophils # (Auto) 0.6 H 0.0-0.3 10^3/uL Basophils # (Auto) 0.1 0.0-0.1 10^3/uL Sodium Level 139 135-145 MMOL/L Potassium Level 3.8 3.6-5.0 MMOL/L Chloride Level 104 98-107 MMOL/L Carbon Dioxide Level 27 21-32 MMOL/L Anion Gap 8 5-14 MMOL/L Blood Urea Nitrogen 6 L 7-18 MG/DL Creatinine 0.90 0.60-1.30 MG/DL Estimat Glomerular Filtration Rate > 60 BUN/Creatinine Ratio 7 Glucose Level 295 H 70-105 MG/DL Lactic Acid Level 1.18 0.50-2.00 MMOL/L Calcium Level 9.0 8.5-10.1 MG/DL Magnesium Level 1.9 1.8-2.4 MG/DL Total Bilirubin 0.3 0.1-1.0 MG/DL Aspartate Amino Transf (AST/SGOT) 12 5-34 U/L Alanine Aminotransferase (ALT/SGPT) 8 0-55 U/L Alkaline Phosphatase 62 40-136 U/L Total Protein 5.9 L 6.4-8.2 GM/DL Albumin 3.7 3.2-4.5 GM/DL Amylase Level 43 25-125 U/L Lipase 7 L 8-78 U/L Urine Color YELLOW Urine Clarity CLEAR Urine pH 8 5-9 Urine Specific [place] 1.010 L 1.016-1.022 Urine Protein NEGATIVE NEGATIVE Urine Glucose (UA) 4+ H NEGATIVE Urine Ketones 1+ H NEGATIVE Urine Nitrite NEGATIVE NEGATIVE Urine Bilirubin NEGATIVE NEGATIVE Urine Urobilinogen NORMAL NORMAL MG/DL Urine Leukocyte Esterase 2+ H NEGATIVE Urine RBC (Auto) NEGATIVE NEGATIVE Urine RBC NONE /HPF Urine WBC RARE /HPF Urine Squamous Epithelial Cells 2-5 /HPF Urine Crystals NONE /LPF Urine Bacteria TRACE /HPF Urine Casts NONE /LPF Urine Mucus NEGATIVE /LPF Urine Culture Indicated NO Glucometer 304 H 70-110 MG/DL My Orders Orders - NIRMALA LEY Comprehensive Metabolic Panel (06/12/18 16:47) Lipase (06/12/18 16:47) Amylase (06/12/18 16:47) Ua Culture If Indicated (06/12/18 16:47) Saline Lock/Iv-Start (06/12/18 16:47) Cbc With Automated Diff (06/12/18 16:47) Ketorolac Injection (Toradol Injection) (06/12/18 17:00) Prochlorperazine Injection (Compazine In (06/12/18 17:00) Diphenhydramine Injection (Benadryl Inje (06/12/18 17:00) Ondansetron Injection (Zofran Injectio (06/12/18 17:00) Magnesium (06/12/18 16:47) Ns Iv 1000 Ml (Sodium Chloride 0.9%) (06/12/18 17:00) Abdomen/[place]ub [place] (06/12/18 17:14) Lactic Acid Analyzer (06/12/18 18:06) Fentanyl Injection (Sublimaze Injection (06/12/18 19:15) Iv Push Material Requirements Planning Manager Ed (06/12/18 ) Medications Given in ED Vital Signs/I&O Blood Pressure Mean: 116 Progress Progress Note : Time: 18:54 Progress Note I have seen and evaluated the patient. Patient reports that she is feeling a little better at this time. She is no longer nauseated, the pain has subsided. She agrees with plan of discharge, return precautions, and close follow-up with Dr. Meza. 2012: Patient's blood sugar is 304. She states that she is due for her evening dose of Humalog. She reports taking 10 units in the evening. She states that she 'll just go home and take her own Humalog. Departure Impression Primary Impression: Migraine Additional Impression: Nausea and vomiting Disposition: 01 HOME, SELF-CARE Condition: Stable/Unchanged Departure-Patient Inst. Decision time for Depature: 18:52 Referrals: RUBIO MEZA DO (PCP/Family) Primary Care Physician Patient Instructions: Migraine Headache (DC), Nausea and Vomiting, Adult (DC) Add. Discharge Instructions: Take your home medications as directed. Keep an eye on your blood sugars as they were slightly elevated today. Return back to the emergency room for any worsening pain, worsening symptoms, or any other concerns as needed. Follow up with Dr. Meza within 1 week for recheck. All discharge instructions reviewed with patient and/or family. Voiced understanding. NIRMALA LEY Jun 12, 2018 17:05
[2018-06-12] MEDS: fentaNYL INJECTION 100 MCG/2 ML AMP IVP ONE ×2 (17:30→19:16)
--- NOTE | 2018-06-12 18:01 | Diagnostic Imaging Report ---
INDICATION: Abdominal pain. COMPARISON: 05/17/2018 FINDINGS: Two views of the abdomen demonstrate some minimal constipation without obstruction or ileus. Bowel gas pattern is nondistended. There is no large pocket of free air. Cholecystectomy clips are present. IMPRESSION: Minimal constipation without obstruction, ileus or free air. Dictated by: Dictated on workstation # [id number]
[2018-06-12 18:05] LABS: BASOPHILS # (AUTO) 0.1 10^3/uL (0.0-0.1); BASOPHILS % (AUTO) 1 % (0-10); EOSINOPHILS # (AUTO) 0.6 10^3/uL (0.0-0.3); EOSINOPHILS % (AUTO) 9 % (0-10); HEMATOCRIT 29 % (35-52); HEMOGLOBIN 9.4 G/DL (11.5-16.0); LYMPHOCYTES # (AUTO) 2.7 X 10^3 (1.0-4.0); LYMPHOCYTES % (AUTO) 41 % (12-44); MEAN CORPUSCULAR HEMOGLOBIN 26 PG (25-34); MEAN CORPUSCULAR HGB CONC 33 G/DL (32-36); MEAN CORPUSCULAR VOLUME 79 FL (80-99); MEAN PLATELET VOLUME 10.5 FL (7.4-10.4); MONOCYTES # (AUTO) 0.4 X 10^3 (0.0-1.0); MONOCYTES % (AUTO) 6 % (0-12); NEUTROPHILS # (AUTO) 2.9 X 10^3 (1.8-7.8); NEUTROPHILS % (AUTO) 44 % (42-75); PLATELET COUNT 251 10^3/uL (130-400); RED BLOOD COUNT 3.65 10^6/uL (4.35-5.85); RED CELL DISTRIBUTION WIDTH 15.6 % (10.0-14.5); WHITE BLOOD COUNT 6.6 10^3/uL (4.3-11.0)
[2018-06-12 18:30] LABS: ALANINE AMINOTRANSFERASE 8 U/L (0-55); ALBUMIN 3.7 GM/DL (3.2-4.5); ALKALINE PHOSPHATASE 62 U/L (40-136); AMYLASE 43 U/L (25-125); BILIRUBIN,TOTAL 0.3 MG/DL (0.1-1.0); BUN/CREATININE RATIO 7; CARBON DIOXIDE 27 MMOL/L (21-32); CHLORIDE 104 MMOL/L (98-107); GFR ESTIMATED > 60; GLUCOSE 295 MG/DL (70-105); LIPASE 7 U/L (8-78); POTASSIUM 3.8 MMOL/L (3.6-5.0); SODIUM 139 MMOL/L (135-145); TOTAL PROTEIN 5.9 GM/DL (6.4-8.2)
[2018-06-12 19:41] LABS: BILIRUBIN,URINE NEGATIVE (NEGATIVE); CLARITY,URINE CLEAR; COLOR,URINE YELLOW; GLUCOSE, URINE (UA) 4+ (NEGATIVE); KETONES,URINE 1+ (NEGATIVE); LEUKOCYTE ESTERASE ,URINE 2+ (NEGATIVE); NITRITE,URINE NEGATIVE (NEGATIVE); PH,URINE 8 (5-9); PROTEIN,URINE NEGATIVE (NEGATIVE); UROBILINOGEN,URINE NORMAL (NORMAL)
[2018-06-12 20:00] LABS: BACTERIA,URINE TRACE /HPF; WBC,URINE RARE /HPF
[2018-06-12 20:17] VITALS: BP 141/89
== END 2018-06-12 20:17 | disposition home or self-care (01) ==
LOC: EDUNIT# 16:17 → ER 16:18
DX: G43.909 Migraine, unspecified, not intractable, without status migrainosus (principal); R11.2 Nausea with vomiting, unspecified; J45.909 Unspecified asthma, uncomplicated; E78.00 Pure hypercholesterolemia, unspecified; I10 Essential (primary) hypertension; E11.9 Type 2 diabetes mellitus without complications; E03.9 Hypothyroidism, unspecified; F41.9 Anxiety disorder, unspecified; F32.9 Major depressive disorder, single episode, unspecified; G40.909 Epilepsy, unspecified, not intractable, without status epilepticus; Z87.820 Personal history of traumatic brain injury; Z87.19 Personal history of other diseases of the digestive system; Z88.2 Allergy status to sulfonamides; Z87.440 Personal history of urinary (tract) infections; Z82.49 Family history of ischemic heart disease and other diseases of the circulatory system; Z80.0 Family history of malignant neoplasm of digestive organs; Z79.51 Long term (current) use of inhaled steroids; Z79.52 Long term (current) use of systemic steroids; Z79.4 Long term (current) use of insulin; Z90.710 Acquired absence of both cervix and uterus
CPT/HCPCS: 36415; 74018; 80053; 81000; 82150; 82962; 83605; 83690; 83735; 85025; 96361; 96374; 96375

== ENCOUNTER 2018-07-10 13:32 | Outpatient (RCR) | payer MEDICARE, MEDICAID ==
[~2018-07-10] VITALS: Ht 165.1 cm; Wt 63.1 kg
[2018-07-10 13:50] VITALS: BP 137/81
== END 2018-07-19 | disposition home or self-care (01) ==
LOC: SDC 13:32
PROVIDERS: ATTEND Internal Medicine
DX: Z45.2 Encounter for adjustment and management of vascular access device (principal)
CPT/HCPCS: 96523

== ENCOUNTER 2018-08-05 13:59 | Emergency (ER) | payer MEDICARE, MEDICAID ==
[~2018-08-05] VITALS: Ht 165.1 cm; Wt 61.2 kg
--- OUTSIDE RECORDS SUMMARY | 2018-08-05 14:29 | XMS REPORT | Clinical Summary ---
Author Author [facility] Organization [facility] Address Unknown Phone Unavailable Care Team Providers [employer] Salesperson Name Role Phone Charles Chau MD Unavailable Migue Patton MD PCP Source Comments Some departments are not documenting in the electronic medical record. If you do not see the information that you expected, contact Release of Information in the Health Information Management department at [phone] for further assistance in locating additional records.[facility] Allergies Active Allergy Reactions Severity Noted Date Comments Sulfa (Sulfonamide UNKNOWN Low 07/18/2018 Antibiotics) Current Medications Prescription Sig. Disp. Refills Start End Date Status Date insulin degludec (TRESEBA Inject 17 Units under the Active SOLOSTAR) 100 unit/mL (3 skin at bedtime daily. mL) injection pen pregabalin (LYRICA) 150 Take 150 mg by mouth Active mg capsule twice daily. ALPRAZolam (XANAX) 1 mg Take 1 mg by mouth at Active tablet bedtime as needed for Anxiety. zolpidem (AMBIEN) 10 mg Take 10 mg by mouth at Active tablet bedtime as needed for Sleep. tiZANidine (ZANAFLEX) 4 Take 4 mg by mouth every Active mg tablet 6 hours as needed. fludrocortisone Take 0.1 mg by mouth Active (FLORINEF) 0.1 mg tablet daily. atorvastatin (LIPITOR) 40 Take 40 mg by mouth Active mg tablet daily. levothyroxine (SYNTHROID) Take 175 mcg by mouth Active 175 mcg tablet daily 30 minutes before breakfast. potassium chloride SR Take 10 mEq by mouth Active (K-DUR) 10 mEq tablet daily. Take with a meal and a full glass of water. montelukast (SINGULAIR) Take 10 mg by mouth at Active 10 mg tablet bedtime daily. pantoprazole DR Take 40 mg by mouth Active (PROTONIX) 40 mg tablet daily. pentosan polysulfate Take 100 mg by mouth Active sodium (ELMIRON) 100 mg three times daily before capsule meals. fesoterodine ER(+) Take 4 mg by mouth daily. Active (TOVIAZ) 4 mg tablet hydroxychloroquine Take 200 mg by mouth Active (PLAQUENIL) 200 mg tablet daily. Take with food. rizatriptan (MAXALT) 10 Take 10 mg by mouth once Active mg tablet as needed for Headache. May repeat in 2 hours if needed sucralfate (CARAFATE) 1 Take 1 g by mouth three Active gram tablet times daily before meals. Take on an empty stomach. cetirizine (ZYRTEC) 10 mg Take 10 mg by mouth every Active tablet morning. cholecalciferol(+) Take 5,000 Units by mouth Active (VITAMIN D-3) 5,000 unit daily. tablet fluticasone (FLONASE) 50 Apply to each nostril as Active mcg/actuation nasal spray directed daily. Shake bottle gently before using. multivitamin with Take by mouth. Active minerals (HAIR,SKIN AND NAILS PO) glucagon,human Inject 1 Units to area(s) Active recombinant (GLUCAGEN as directed as Needed. DIAGNOSTIC KIT IJ) LORazepam (ATIVAN) 1 mg Take 1 mg by mouth every Active tablet 4 hours as needed for Nausea, Vomiting or Other.... carBAMazepine (TEGRETOL) Take 400 mg by mouth Active 200 mg tablet daily. clobetasol (TEMOVATE) Apply topically to Active 0.05 % topical solution affected area twice daily. lidocaine/prilocaine Apply topically to Active (EMLA) 2.5/2.5 % topical affected area as Needed. cream nystatin (NYSTOP) 100,000 Apply topically to Active unit/g topical powder affected area four times daily. estrogens, conjugated(+) Insert or Apply 0.5 g to Active (PREMARIN) 0.625 mg/g vaginal area daily. vaginal cream ondansetron (ZOFRAN ODT) Dissolve one tablet by 90 tablet 0 08/30/20 Active 4 mg rapid dissolve mouth every [address] on tongue to disolve. promethazine (PHENERGAN) Insert or Apply one 30 each 0 07/18/20 Active 12.5 mg rectal suppository to rectal 18 suppository area as directed every 8 hours as needed for Nausea. diclofenac(+) (VOLTAREN) Apply 4 g topically to Active 1 % topical gel affected area four times daily as needed. polyethylene glycol 3350 Take one packet by mouth 30 each 1 07/22/20 Active (MIRALAX) 17 g packet daily. [address] (CYMBALTA) Take three capsules by 30 capsule 1 07/22/20 Active 30 mg capsule mouth daily. 18 vitamins, B complex tab Take one tablet by mouth 30 tablet 1 07/22/20 Active daily. 18 ferrous gluconate Take one tablet by mouth 30 tablet 1 07/22/20 Active (FERGON) 240 mg (27 mg daily. 18 iron) tablet coenzyme Q10(+) 100 mg Take one capsule by mouth 60 capsule 1 Active cap twice daily. 18 levocarnitine(+) Take four tablets by 240 tablet 1 07/22/20 Active (LEVOCARNITINE(+)) 500 mg mouth twice daily. 18 tablet insulin lispro(+) Inject 6 units 45 mL 0 07/22/20 Active (HUMALOG KWIKPEN INSULIN) subcutaneously with 18 100 unit/mL injection PEN breakfast and lunch, and 10 units with dinner. magnesium oxide (MAG-OX) Take one tablet by mouth 180 tablet 3 Active 400 mg tablet daily. 18 acetaminophen/lidocaine/a Take 30 mL by mouth three 300 mL 0 07/22/20 Active ntacid DS(#) (GI times daily as needed. 18 COCKTAIL) 1:1:3 insulin lispro(+) Inject 4 units 07/22/20 Discontin (HUMALOG KWIKPEN INSULIN) subcutaneously with 18 ued 100 unit/mL injection PEN breakfast and lunch, and 10 units with dinner. dul[address] (CYMBALTA) Take 60 mg by mouth twice 07/22/20 Discontin 60 mg capsule daily. 18 ued HYDROcodone/acetaminophen Take 1 tablet by mouth 07/22/20 Discontin (+) (NORCO) 10/325 mg every 6 hours as needed 18 ued tablet for Pain amphetamine-dextroampheta Take 40 mg by mouth every 07/22/20 Discontin mine XR (ADDERALL XR) 20 morning 18 ued mg capsule nortriptyline (PAMELOR) Take 25 mg by mouth at 07/19/20 Discontin 25 mg capsule bedtime daily. 18 ued estrogens, conjugated Take 0.625 mg by mouth 07/22/20 Discontin (PREMARIN) 0.625 mg daily. 18 ued tablet Active Problems Problem Noted Date Abdominal pain 07/19/2018 Other dysphagia 07/18/2018 Other constipation 07/18/2018 Intractable cyclical vomiting with nausea 07/18/2018 Gastritis 07/18/2018 Type 1 diabetes mellitus with complication (HCC) 07/18/2018 Dysthymia 07/18/2018 Anxiety 07/18/2018 Migraine with aura and with status migrainosus, not intractable 07/18/2018 Epigastric pain 07/18/2018 Encounters Date Type Specialty Care Team Description 08/04/2018 Emergency Emergency Medicine Hoa Zhao MD 07/29/2018 Telephone [facility], Appointment [employer] 07/24/2018 Emergency Emergency Medicine 07/23/2018 Telephone G[facility]enterology [facility], Prior Authorization [employer] (Ondansetron ) 07/19/2018 [facility] Hoa Zhao MD Abdominal pain - Encounter Jimbo Gordon DO 07/22/2018 Sandra Ho MD 07/19/2018 Procedure Pass 07/19/2018 Procedure Pass 07/19/2018 Procedure Pass 07/18/2018 Office Visit Gastroenterology [facility], Abdominal pain, [employer] unspecified abdominal location (Primary Dx); Other dysphagia; Other constipation; Intractable cyclical vomiting with nausea; Gastropathy; Type 1 diabetes mellitus with complication (HCC); Dysthymia; Anxiety; Migraine with aura and with status migrainosus, not intractable; Epigastric pain from Last 3 Months Family History Medical History Relation Name Comments Cancer-Breast Maternal Grandmother GI Cancer Mother Cancer-Colon Neg Hx Celiac Disease Neg Hx Colon Polyps Neg Hx Inflammatory Bowel Neg Hx Disease Rectal Cancer Neg Hx Ulcerative Colitis Neg Hx Relation Name Status Comments Father Maternal Grandmother Mother Social History Tobacco Use Types Packs/Day Years Used Date Never Smoker Smokeless Tobacco: Never Used Alcohol Use Drinks/Week oz/Week Comments No Sex Assigned at Date Recorded Not on file Last Filed Vital Signs Vital Sign Reading Time Taken Blood Pressure 130/70 08/04/2018 9:00 PM CDT Pulse 68 08/04/2018 9:00 PM CDT Temperature 36.9 C (98.4 F) 08/04/2018 4:21 PM CDT Respiratory Rate 16 07/18/2018 3:40 PM CDT Oxygen Saturation 94% 08/04/2018 9:00 PM CDT Inhaled Oxygen - - Concentration Weight 61.2 kg (135 lb) 08/04/2018 4:21 PM CDT Height 165.1 cm (5' 5") 07/19/2018 1:00 PM CDT Body Mass Index 22.47 08/04/2018 4:21 PM CDT Plan of Treatment Health Maintenance Due Date Last Done Comments HEPATITIS C SCREENING 1962 PHYSICAL (COMPREHENSIVE) 1969 EXAM PERTUSSIS VACCINE 1973 HIV SCREENING 1977 TETANUS VACCINE 1979 DILATED EYE EXAM 1980 FOOT EXAM 1980 MICROALBUMIN 1980 PNEUMONIA VACCINE (DM) 1980 CERVICAL CANCER SCREENING 1992 BREAST CANCER SCREENING 2002 COLORECTAL CANCER 2012 SCREENING SHINGLES RECOMBINANT 2012 VACCINE (1 of 2) INFLUENZA VACCINE 08/19/2018 HBA1C 01/16/2019 07/19/2018 Procedures * The patient is currently admitted. The information in this section might not be complete until the patient is discharged. Procedure Name Priority Date/Time Associated Diagnosis Comments URINALYSIS, MICROSCOPIC STAT 08/04/2018 Results for this 7:12 PM CDT procedure are in the results section. URINALYSIS DIPSTICK STAT 08/04/2018 Results for this 7:12 PM CDT procedure are in the results section. CHEST SINGLE VIEW STAT 08/04/2018 Results for this 5:10 PM CDT procedure are in the results section. FREE T4-FREE THYROXINE STAT 08/04/2018 Results for this 4:46 PM CDT procedure are in the results section. POC TROPONIN 08/04/2018 Results for this 4:46 PM CDT procedure are in the results section. POC GLUCOSE 08/04/2018 Results for this 4:46 PM CDT procedure are in the results section. TSH WITH FREE T4 REFLEX STAT 08/04/2018 Results for this 4:46 PM CDT procedure are in the results section. COMPREHENSIVE METABOLIC STAT 08/04/2018 Results for this PANEL 4:46 PM CDT procedure are in the results section. CBC AND DIFF STAT 08/04/2018 Results for this 4:46 PM CDT procedure are in the results section. ECG 12-LEAD STAT 08/04/2018 4:35 PM CDT ECG 12-LEAD STAT 08/04/2018 4:15 PM CDT TELEMETRY STRIPS-SCAN 07/25/2018 Results for this 10:18 AM CDT procedure are in the results section. URINALYSIS, MICROSCOPIC STAT 07/24/2018 Results for this 9:19 PM CDT procedure are in the results section. URINALYSIS DIPSTICK STAT 07/24/2018 Results for this 9:19 PM CDT procedure are in the results section. LIPASE STAT 07/24/2018 Results for this 6:02 PM CDT procedure are in the results section. COMPREHENSIVE METABOLIC STAT 07/24/2018 Results for this PANEL 6:02 PM CDT procedure are in the results section. CBC AND DIFF STAT 07/24/2018 Results for this 6:02 PM CDT procedure are in the results section. POC GLUCOSE 07/22/2018 Results for this 4:29 PM CDT procedure are in the results section. POC GLUCOSE 07/22/2018 Results for this 1:21 PM CDT procedure are in the results section. POC GLUCOSE 07/22/2018 Results for this 8:55 AM CDT procedure are in the results section. CBC AND DIFF Routine 07/22/2018 Results for this 4:32 AM CDT procedure are in the results section. COMPREHENSIVE METABOLIC Routine 07/22/2018 Results for this PANEL 4:32 AM CDT procedure are in the results section. POC GLUCOSE 07/21/2018 Results for this 8:20 PM CDT procedure are in the results section. POC GLUCOSE 07/21/2018 Results for this 6:45 PM CDT procedure are in the results section. POC GLUCOSE 07/21/2018 Results for this 1:22 PM CDT procedure are in the results section. ECG-SCAN 07/21/2018 Results for this 1:09 PM CDT procedure are in the results section. CORTISOL 60 MINUTES POST Routine 07/21/2018 Results for this 10:10 AM CDT procedure are in the results section. POC GLUCOSE 07/21/2018 Results for this 9:39 AM CDT procedure are in the results section. CORTISOL 30 MINUTES POST Routine 07/21/2018 Results for this 9:30 AM CDT procedure are in the results section. CORTISOL BASELINE Routine 07/21/2018 Results for this 8:40 AM CDT procedure are in the results section. ACTH Routine 07/21/2018 Results for this 8:40 AM CDT procedure are in the results section. CARBAMAZEPINE LEVEL Routine 07/21/2018 Results for this 8:40 AM CDT procedure are in the results section. ANTI MANSFIELD(SM) ANTI TIN TIE MACHINE OPERATOR AUTOMATIC Routine 07/21/2018 Results for this AB 5:58 AM CDT procedure are in the results section. CENTROMERE ANTIBODIES Routine 07/21/2018 Results for this 5:58 AM CDT procedure are in the results section. CCP IGG ANTIBODY Routine 07/21/2018 Results for this 5:58 AM CDT procedure are in the results section. SCL 70 ANTIBODIES Routine 07/21/2018 Results for this 5:58 AM CDT procedure are in the results section. ANTI SSA ANTI SSB AB Routine 07/21/2018 Results for this 5:58 AM CDT procedure are in the results section. RHEUMATOID FACTOR (RF) Routine 07/21/2018 Results for this 5:58 AM CDT procedure are in the results section. ANTI-DNA DOUBLE STRAND Routine 07/21/2018 Results for this 5:58 AM CDT procedure are in the results section. ANTI-NUCLEAR Routine 07/21/2018 Results for this ANTIBODY(HERNAN) 5:58 AM CDT procedure are in the results section. PERIPHERAL SMEAR Routine 07/21/2018 Results for this 5:58 AM CDT procedure are in the results section. CBC AND DIFF Routine 07/21/2018 Results for this 5:58 AM CDT procedure are in the results section. COMPREHENSIVE METABOLIC Routine 07/21/2018 Results for this PANEL 5:58 AM CDT procedure are in the results section. POC GLUCOSE 07/20/2018 Results for this 8:28 PM CDT procedure are in the results section. POC GLUCOSE 07/20/2018 Results for this 5:17 PM CDT procedure are in the results section. POC GLUCOSE 07/20/2018 Results for this 11:59 AM CDT procedure are in the results section. POC GLUCOSE 07/20/2018 Results for this 8:15 AM CDT procedure are in the results section. POC GLUCOSE 07/20/2018 Results for this 6:40 AM CDT procedure are in the results section. PHOSPHORUS Routine 07/20/2018 Results for this 5:30 AM CDT procedure are in the results section. MAGNESIUM Routine 07/20/2018 Results for this 5:30 AM CDT procedure are in the results section. COMPREHENSIVE METABOLIC Routine 07/20/2018 Results for this PANEL 5:30 AM CDT procedure are in the results section. CBC Routine 07/20/2018 Results for this 5:30 AM CDT procedure are in the results section. POC GLUCOSE 07/19/2018 Results for this 8:24 PM CDT procedure are in the results section. POC GLUCOSE 07/19/2018 Results for this 5:08 PM CDT procedure are in the results section. FOLATE, SERUM Routine 07/19/2018 Results for this 5:00 PM CDT procedure are in the results section. VITAMIN B12 Routine 07/19/2018 Results for this 5:00 PM CDT procedure are in the results section. CORTISOL-AM Routine 07/19/2018 Results for this 5:00 PM CDT procedure are in the results section. IRON + BINDING CAPACITY + Routine 07/19/2018 Results for this %SAT+ FERRITIN 5:00 PM CDT procedure are in the results section. IMMUNOGLOBULIN E (IGE) Routine 07/19/2018 Results for this 5:00 PM CDT procedure are in the results section. URINALYSIS, MICROSCOPIC STAT 07/19/2018 Results for this 12:58 PM CDT procedure are in the results section. URINALYSIS DIPSTICK STAT 07/19/2018 Results for this 12:58 PM CDT procedure are in the results section. POC GLUCOSE 07/19/2018 Results for this 10:14 AM CDT procedure are in the results section. POC GLUCOSE 07/19/2018 Results for this 9:18 AM CDT procedure are in the results section. C REACTIVE PROTEIN (CRP) Routine 07/19/2018 Results for this 6:20 AM CDT procedure are in the results section. SED RATE Routine 07/19/2018 Results for this 6:20 AM CDT procedure are in the results section. AMYLASE STAT 07/19/2018 Results for this 6:20 AM CDT procedure are in the results section. CORTISOL,RANDOM STAT 07/19/2018 Results for this 6:20 AM CDT procedure are in the results section. TSH WITH FREE T4 REFLEX Routine 07/19/2018 Results for this 6:20 AM CDT procedure are in the results section. HEMOGLOBIN A1C Routine 07/19/2018 Results for this 6:20 AM CDT procedure are in the results section. URINALYSIS, MICROSCOPIC STAT 07/19/2018 Results for this 4:10 AM CDT procedure are in the results section. URINALYSIS DIPSTICK STAT 07/19/2018 Results for this 4:10 AM CDT procedure are in the results section. CRITICAL CARE Routine 07/19/2018 Results for this 4:00 AM CDT procedure are in the results section. POC TROPONIN 07/19/2018 Results for this 2:52 AM CDT procedure are in the results section. CTA CHEST WO/W STAT 07/19/2018 Results for this CONTRAST+POST IMPRESSION 2:22 AM CDT procedure are in the results section. CT ABD/PELV W CONTRAST STAT 07/19/2018 Results for this 2:22 AM CDT procedure are in the results section. CT HEAD WO CONTRAST STAT 07/19/2018 Results for this 2:14 AM CDT procedure are in the results section. POC CREATININE, RAD 07/19/2018 Results for this 2:03 AM CDT procedure are in the results section. ECG-SCAN 07/19/2018 Results for this 2:00 AM CDT procedure are in the results section. POC LACTATE 07/19/2018 Results for this 2:00 AM CDT procedure are in the results section. PHOSPHORUS STAT 07/19/2018 Results for this 1:40 AM CDT procedure are in the results section. MAGNESIUM STAT 07/19/2018 Results for this 1:40 AM CDT procedure are in the results section. LIPASE STAT 07/19/2018 Results for this 1:40 AM CDT procedure are in the results section. COMPREHENSIVE METABOLIC STAT 07/19/2018 Results for this PANEL 1:40 AM CDT procedure are in the results section. CBC AND DIFF STAT 07/19/2018 Results for this 1:40 AM CDT procedure are in the results section. CULTURE-BLOOD STAT 07/19/2018 Results for this W/SENSITIVITY 1:40 AM CDT procedure are in the results section. ECG 12-LEAD STAT 07/19/2018 1:33 AM CDT CULTURE-BLOOD STAT 07/19/2018 Results for this W/SENSITIVITY 1:30 AM CDT procedure are in the results section. from Last 3 Months Results * URINALYSIS, MICROSCOPIC (08/04/2018 7:12 PM) Only the most recent of 4 results within the time period is included. WBCs,UA 0-2 0 - 2 /HPF [facility] RBCs,UA 0-2 0 - 3 /HPF [facility] MucousUA TRACE [facility] Squamous Epithelial Cells 0-2 0 - 5 [facility] Hyaline Cast 5-10 [facility] Specimen Urine - Urine Performing Organization Address [facility] [place] Phone Number [facility] [address] [place] [address] * URINALYSIS DIPSTICK (08/04/2018 7:12 PM) Only the most recent of 4 results within the time period is included. Color,UA YELLOW [facility] Turbidity,UA CLEAR CLEAR-CLEAR [facility] Specific [place]-Urine 1.020 1.003 - 1.035 [facility] pH,UA 5.0 5.0 - 8.0 [facility] Protein,UA NEG NEG-NEG [facility] Glucose,UA 3+ (A) NEG-NEG [facility] Ketones,UA TRACE (A) NEG-NEG [facility] Bilirubin,UA NEG NEG-NEG [facility] Blood,UA NEG NEG-NEG [facility] Urobilinogen,UA NORMAL NORM-NORMAL [facility] Nitrite,UA NEG NEG-NEG [facility] Leukocytes,UA NEG NEG-NEG [facility] Urine Ascorbic Acid, UA NEG NEG-NEG [facility] Specimen Urine - Urine Performing Organization Address [facility] [place] Phone Number [facility] [address] [place] [address] * CHEST SINGLE VIEW (08/04/2018 5:10 PM) Impressions Performed At No acute cardiopulmonary abnormality. [facility] RESULTS Approved by Chester Baxter M.D. on 08/05/2018 8:26 AM By my electronic signature, I attest that I have personally reviewed the images for this examination and formulated the interpretations and opinions expressed in this report Finalized by Kings Flores M.D. on 08/05/2018 11:18 AM. Dictated by Chester Baxter M.D. on 08/05/2018 7:27 AM. Narrative Performed At CHEST SINGLE VIEW [facility] RESULTS Clinical history: Chest pain Comparison: CT chest from July 19, 2018 Findings: Left subclavian chest port in place with tip overlying the low SVC. Cardiac silhouette is normal in size. No consolidation, pleural effusion or pneumothorax. Procedure Note Interface, Radiant Results - 08/05/2018 11:21 AM CDT CHEST SINGLE VIEW Clinical history: Chest pain Comparison: CT chest from July 19, 2018 Findings: Left subclavian chest port in place with tip overlying the low SVC. Cardiac silhouette is normal in size. No consolidation, pleural effusion or pneumothorax. IMPRESSION No acute cardiopulmonary abnormality. Approved by Chester Baxter M.D. on 08/05/2018 8:26 AM By my electronic signature, I attest that I have personally reviewed the images for this examination and formulated the interpretations and opinions expressed in this report Finalized by Kings Flores M.D. on 08/05/2018 11:18 AM. Dictated by Chester Baxter M.D. on 08/05/2018 7:27 AM. Performing Organization Address [facility] [place] Phone Number RAD RESULTS * FREE T4-FREE THYROXINE (08/04/2018 4:46 PM) T4-Free 1.1 0.6 - 1.6 NG/DL [facility] Performing Organization Address [facility] [place] Phone Number [facility] [address] [place] [address] * TSH WITH FREE T4 REFLEX (08/04/2018 4:46 PM) Only the most recent of 2 results within the time period is included. TSH 0.330 (L) 0.35 - 5.00 MCU/ML [facility] Specimen Blood Performing Organization Address [facility] [place] Phone Number [facility] [address] [place] [address] * POC TROPONIN (08/04/2018 4:46 PM) Only the most recent of 2 results within the time period is included. [id number] 0.02 0.00 - 0.05 NG/ML [facility] Performing Organization Address [facility] [place] Phone Number [facility] [address] [place] [address] * POC GLUCOSE (08/04/2018 4:46 PM) Only the most recent of 17 results within the time period is included. Glucose, POC 212 (H) 70 - 100 MG/DL [facility] Performing Organization Address [facility] [place] Phone Number [facility] [address] [place] [phone] * CBC AND DIFF (08/04/2018 4:46 PM) Only the most recent of 5 results within the time period is included. White Blood Cells 12.5 (H) 4.5 - 11.0 K/UL [facility] RBC 4.17 4.0 - 5.0 M/UL [facility] Hemoglobin 11.2 (L) 12.0 - 15.0 GM/DL [facility] Hematocrit 34.6 (L) 36 - 45 % [facility] MCV 83.0 80 - 100 FL [facility] MCH 26.9 26 - 34 PG [facility] MCHC 32.4 32.0 - 36.0 G/DL [facility] RDW 20.0 (H) 11 - 15 % [facility] Platelet Count 289 150 - 400 K/UL [facility] MPV 9.0 7 - 11 FL [facility] Neutrophils 62 41 - 77 % [facility] Lymphocytes 23 (L) 24 - 44 % [facility] Monocytes 6 4 - 12 % [facility] Eosinophils 8 (H) 0 - 5 % [facility] Basophils 1 0 - 2 % [facility] Absolute Neutrophil Count 7.90 (H) 1.8 - 7.0 K/UL [facility] Absolute Lymph Count 2.80 1.0 - 4.8 K/UL [facility] Absolute Monocyte Count 0.70 0 - 0.80 K/UL [facility] Absolute Eosinophil Count 1.00 (H) 0 - 0.45 K/UL [facility] Absolute Basophil Count 0.10 0 - 0.20 K/UL [facility] Specimen Blood Performing Organization Address City/State/Zipcode Phone Number [facility] [address] [place] [address] * COMPREHENSIVE METABOLIC PANEL (08/04/2018 4:46 PM) Only the most recent of 6 results within the time period is included. Sodium 135 (L) 137 - 147 MMOL/L [facility] Potassium 4.7 3.5 - 5.1 MMOL/L [facility] Chloride 103 98 - 110 MMOL/L [facility] Glucose 214 (H) 70 - 100 MG/DL [facility] Blood Urea Nitrogen 13 7 - 25 MG/DL [facility] Creatinine 1.10 (H) 0.4 - 1.00 MG/DL [facility] Calcium 8.6 8.5 - 10.6 MG/DL [facility] Total Protein 6.1 6.0 - 8.0 G/DL [facility] Total Bilirubin 0.3 0.3 - 1.2 MG/DL [facility] Albumin 3.5 3.5 - 5.0 G/DL [facility] Alk Phosphatase 104 25 - 110 U/L [facility] AST (SGOT) 26 7 - 40 U/L [facility] CO2 22 21 - 30 MMOL/L [facility] ALT (SGPT) 12 7 - 56 U/L [facility] Anion Gap 10 3 - 12 [facility] eGFR Non 51 (L) >60 mL/min [facility] Comment: The eGFR is not validated for use in drug dosing adjustments.Continue to use estimated creatinine clearance per dosing reference text.Please contact the Clinical Pharmacist for questions. eGFR >60 >60 mL/min [facility] Comment: The eGFR is not validated for use in drug dosing adjustments.Continue to use estimated creatinine clearance per dosing reference text.Please contact the Clinical Pharmacist for questions. Specimen Blood Performing Organization Address City/[facility] Phone Number [facility] [address] [place] [address] * TELEMETRY STRIPS-SCAN (07/25/2018 10:18 AM) Narrative Performed At Ordered by an unspecified provider. * LIPASE (07/24/2018 6:02 PM) Only the most recent of 2 results within the time period is included. Lipase 13 11 - 82 U/L [facility] Specimen Blood Performing Organization Address [facility] Phone Number [facility] [address] [place] [address] * ECG-SCAN (07/21/2018 1:09 PM) Narrative Performed At Ordered by an unspecified provider. * CORTISOL 60 MINUTES POST (07/21/2018 10:10 AM) Cortisol 60 Min 22.6 ug/dL MAIN LAB Specimen Blood Performing Organization Address [facility] Phone Number [facility] [address] [phone] * CORTISOL 30 MINUTES POST (07/21/2018 9:30 AM) Cortisol 30 Min 19.4 ug/dL MAIN LAB Specimen Blood Performing Organization Address [facility] [place] Phone Number MAIN LAB [address] [place] [address] * CORTISOL BASELINE (07/21/2018 8:40 AM) Cortisol Baseline 13.6 ug/dL MAIN LAB Specimen Blood Performing Organization Address [facility] [place] Phone Number MAIN LAB [address] [place] [address] * ACTH (07/21/2018 8:40 AM) Adrenocorticotropic 73 (H) REFERENCE LAB Hormone Comment: Unit: pg/mL REFERENCE VALUE - 7.2-63 (a.m. collection) [facility], [facility] [place] [address] Specimen Blood Performing Organization Address [facility] [place] Phone Number REFERENCE LAB REFERENCE LAB See results for address. * CARBAMAZEPINE LEVEL (07/21/2018 8:40 AM) Carbamazepine 3.2 (L) 6.0 - 10.0 MCG/ML MAIN LAB Specimen Blood Performing Organization Address [facility] [place] Phone Number MAIN LAB [address] [place] [address] * RHEUMATOID FACTOR (RF) (07/21/2018 5:58 AM) Rheum Factor Screen <20 <24 IU/mL MAIN LAB Specimen Blood Performing Organization Address [facility] [place] Phone Number MA[facility] LAB [address] [place] [address] * PERIPHERAL SMEAR (07/21/2018 5:58 AM) Peripheral Smear Microcytic, hypochromic red MAIN LAB cells. Consider iron deficiency anemia, anemia of chronic disease, thalassemia, and sideroblastic anemia. MILD EOSINOPHILIA. PLATELETS APPEAR NORMAL IN NUMBER AND MORPHOLOGY. Pathologist Signature INTERPRETED BY CHONG ROYAL MAIN LAB Adam By the PATH SIGNATURE ABOVE, I attest that I have personally formulated the final interpretation expressed in this report and that the above diagnosis is based upon my examination of the slides and/or other material indicated in this report. Specimen Blood Performing Organization Address [facility] [place] Phone Number MAIN LAB [address] [place] [address] * ANTI MANSFIELD(SM) ANTI TIN TIE MACHINE OPERATOR AUTOMATIC AB (07/21/2018 5:58 AM) Anti-Mansfield <0.2Comment: Interpretation: <1.0 [facility] MAIN LAB Negative Anti-TIN TIE MACHINE OPERATOR AUTOMATIC <0.2Comment: Interpretation: <1.0 AI MAIN LAB Negative Specimen Blood Performing Organization Address [facility] [place] Phone Number MAIN LAB [address] [place] [address] * SCL 70 ANTIBODIES (07/21/2018 5:58 AM) SCL70 Ab <0.2 <1.0 [facility] MAIN LAB Comment: Interpretation: Negative NOTE NEW METHODOLOGY AND REFERENCE RANGE Specimen Blood Performing Organization [facility] Phone Number MAIN LAB [address] [place] [address] * ANTI-DNA DOUBLE STRAND (07/21/2018 5:58 AM) DNA Double Strand AB <10 <10 TITER MAIN LAB Specimen Blood Performing Organization [facility] Phone Number MAIN LAB [address] [place] [address] * CENTROMERE ANTIBODIES (07/21/2018 5:58 AM) Centromere Antibody <0.2 <1.0 AI MAIN LAB Comment: Interpretation: Negative NOTE NEW METHODOLOGY AND REFERENCE RANGE Specimen Blood Performing Organization [facility] Phone Number MAIN LAB [address] [place] [address] * CCP IGG ANTIBODY (07/21/2018 5:58 AM) CCP IgG Antibody <0.5Comment: NOTE NEW <3.0 [IU]/mL MAIN LAB METHODOLOGY AND REFERENCE RANGE Specimen Blood Performing Organization [facility] Phone Number MAIN LAB [address] [place] [address] * ANTI SSA ANTI SSB AB (07/21/2018 5:58 AM) Anti-SSA <0.2Comment: Interpretation: <1.0 AI MAIN LAB Negative Anti-SSB 0.2Comment: Interpretation: <1.0 AI MAIN LAB Negative Specimen Blood Performing Organization Address [facility] Phone Number MAIN LAB [address] [place] [address] * ANTI-NUCLEAR ANTIBODY(HERNAN) (07/21/2018 5:58 AM) HERNAN Screen <80 <80 TITER [facility] MAIN LAB Specimen Blood Performing Organization Address [facility] Phone Number MAIN LAB [address] [place] [address] * CBC (07/20/2018 5:30 AM) White Blood Cells 7.8 4.5 - 11.0 K/UL MAIN LAB RBC 3.31 (L) 4.0 - 5.0 M/UL [facility] MAIN LAB Hemoglobin 8.6 (L) 12.0 - 15.0 GM/DL [facility] MAIN LAB Hematocrit 26.2 (L) 36 - 45 % MAIN LAB MCV 79.0 (L) 80 - 100 FL MAIN LAB MCH 26.1 26 - 34 PG MAIN LAB MCHC 33.0 32.0 - 36.0 G/DL MAIN LAB RDW 16.9 (H) 11 - 15 % [facility] MAIN LAB Platelet Count 221 150 - 400 K/UL MAIN LAB MPV 9.1 7 - 11 FL MAIN LAB Specimen Blood Performing Organization Address [facility] Phone Number MAIN LAB [address] [place] [address] * PHOSPHORUS (07/20/2018 5:30 AM) Only the most recent of 2 results within the time period is included. Phosphorus 4.4 (H) 2.0 - 4.0 MG/DL [facility] MAIN LAB Specimen Blood Performing Organization Address [facility] Phone Number MAIN LAB [address] [place] [address] * MAGNESIUM (07/20/2018 5:30 AM) Only the most recent of 2 results within the time period is included. Magnesium 2.1 1.6 - 2.6 mg/dL MAIN LAB Specimen Blood Performing Organization Address [facility] Phone Number MAIN LAB [address] [place] [address] * IRON + BINDING CAPACITY + %SAT+ FERRITIN (07/19/2018 5:00 PM) Iron 24 (L) 50 - 160 MCG/DL [facility] MAIN LAB Iron Binding-TIBC 383 (H) 270 - 380 MCG/DL [facility]IN [facility] % Saturation 6 (L) 28 - 42 % [facility] MAIN LAB Ferritin 6 (L) 10 - 200 NG/ML [facility]IN [facility] Specimen Blood Performing Organization Address [facility] Phone Number MAIN LAB [address] [place] [address] * IMMUNOGLOBULIN E (IGE) (07/19/2018 5:00 PM) IgE 24 <165 IU/ML [facility] MAIN LAB Specimen Blood Performing Organization Address [facility] Phone Number MAIN LAB [address] [place] [address] * FOLATE, SERUM (07/19/2018 5:00 PM) Serum Folate 15.7Comment: NOTE NEW >3.9 NG/ML MAIN LAB REFERENCE RANGES Specimen Blood Performing Organization Address [facility] Phone Number MAIN LAB [address] [place] [address] * VITAMIN B12 (07/19/2018 5:00 PM) Vitamin B12 751 180 - 914 PG/ML MAIN LAB Specimen Blood Performing Organization Address [facility] Phone Number MAIN LAB [address] [phone] * CORTISOL-AM (07/19/2018 5:00 PM) Cortisol-AM 6.3 (L) 6.7 - 22.6 MCG/DL MAIN LAB Specimen Blood Performing Organization Address [facility] Phone Number MAIN LAB [address] [place] [address] * CORTISOL,RANDOM (07/19/2018 6:20 AM) Cortisol, Random 2.8 (L) 5.0 - 20.0 MCG/DL MAIN LAB Specimen Blood Performing Organization Address [facility] Phone Number MAIN LAB [address] [place] [address] * SED RATE (07/19/2018 6:20 AM) Sed Rate -ESR 5 0 - 30 MM/HR MAIN LAB Specimen Blood Performing Organization Address [facility] Phone Number MAIN LAB [address] [place] [address] * C REACTIVE PROTEIN (CRP) (07/19/2018 6:20 AM) C-Reactive Protein 0.33 <1.0 MG/DL MAIN LAB Specimen Blood Performing Organization Address [facility] Phone Number [facility] [address] [phone] * HEMOGLOBIN A1C (07/19/2018 6:20 AM) Hemoglobin A1C 11.4 (H) 4.0 - 6.0 % [facility]IN [facility] Comment: The ADA recommends that most patients with type 1 and type 2 diabetes maintain an A1c level <7%. Specimen Blood Performing Organization Address City/[facility]/Zipcode Phone Number MAIN LAB [address] [phone] * AMYLASE (07/19/2018 6:20 AM) Amylase 43 24 - 100 U/L MAIN LAB Specimen Blood Performing Organization Address [facility] Phone Number MAIN LAB [address] [place] [address] * CRITICAL CARE (07/19/2018 4:00 AM) Narrative Performed At Hoa Zhao MD 07/21/20181:30 AM Critical Care Performed by: CHESTER HONEYCUTT Authorized by: HOA ZHAO Total critical care time in minutes: 35 Critical care was exclusive of separately billable procedures and treating other patients and teaching time. Critical care was necessary to treat or prevent imminent or life-threatening deterioration of the following conditions: circulatory failure. Critical care was spent personally by me on the following activities: development of treatment plan with patient or surrogate, evaluation of patient's response to treatment, examination of patient, obtaining history from patient or surrogate, ordering and performing treatments and interventions, ordering and review of laboratory studies, ordering and review of radiographic studies, pulse oximetry, re-evaluation of patient's condition, review of old charts, discussions with consultants and blood draw for specimens. Attending Attestation: I was present during the entire procedure by a resident or midlevel. * CT ABD/PELV W CONTRAST (07/19/2018 2:22 AM) Impressions Performed At Chest: [facility] RESULTS 1.No evidence of acute pulmonary embolism. 2.Mild bilateral axillary lymphadenopathy which is nonspecific and may be reactive or due to systemic disease such as connective tissue disease. Other etiologies such as low-grade lymphoma and CLL could produce a similar appearance. Metastatic disease is less likely. If clinically indicated, PET/ CT and/or biopsy is suggested for further evaluation. 3.Tiny noncalcified right middle lobe nodule which may represent a noncalcified granuloma or nodular scar. In the absence of risk factors, no follow-up is necessary. If the patient is high risk, follow CT chest in one year is suggested. 4.No consolidating pneumonia or pleural effusion. 5.Mild cardiomegaly. Abdomen and pelvis: 1.No abdominopelvic inflammatory mass, ascites, or bowel obstruction. Normal appendix. 2.Mild bilateral pelvic lymphadenopathy with similar differential to bilateral axillary lymphadenopathy. Finalized by Alvarado Wilkins M.D. on 07/19/2018 2:34 AM. Dictated by Alvarado Wilkins M.D. on 07/19/2018 2:25 AM. Narrative Performed At CTA chest, CT abdomen and pelvis [facility] RES[facility] HISTORY: PE is leading diagnosis,hypotensive, abdominal pain TECHNIQUE: Multiple contiguous axial images were obtained throughout the chest , abdomen, and pelvis following the administration of intravenous contrast material. Axial images were reformatted into coronal and sagittal planes. Image post processing obtained through the chest. IV contrast administered: Isovue-370 Bowel contrast administered: None. COMPARISON: No prior studies are available for comparison. FINDINGS: Chest: The visualized lower neck is unremarkable. There is mild bilateral axillary lymphadenopathy, slightly greater on the left. Pediatric Allergist left axillary lymph node measures 2.5 x 1.5 cm (series 2 image 14). No enlarged mediastinal or hilar lymph nodes. Mild cardiomegaly with trace pericardial fluid or thickening. The thoracic aorta is normal in caliber. No pulmonary artery filling defects are identified. The central airways are patent. Mild dependent atelectasis, greater on the right. Tiny noncalcified right middle lobe nodule measuring 0.5 cm (series 2 image 30). No consolidation, pleural effusion, or pneumothorax. Azygos fissure is noted. Left subclavian chest port in place. No destructive osseous lesions identified. Abdomen and pelvis: The liver is upper limits of normal in size with an elongated Vicky's lobe. Focal steatosis along the falciform ligament. No focal hepatic lesions are identified. The major portal veins are patent. 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 No intrahepatic biliary ductal dilatation. The spleen is normal in size. Moderate diffuse pancreatic volume loss without ductal dilatation. The adrenal glands and kidneys are unremarkable. No hydronephrosis. Small and large bowel loops are normal in caliber without evidence of obstruction. The appendix is normal. Mild retained stool throughout the colon. No ascites or pneumoperitoneum. The abdominal aorta and iliac arteries are normal in caliber with minimal calcified atherosclerosis. No retroperitoneal or mesenteric lymphadenopathy. Prominent right common iliac lymph nodes. Mildly enlarged bilateral external iliac and inguinal lymph nodes. Pediatric Allergist right external iliac lymph node measures 2.4 x 1.5 cm (series 2 image 120). The vaginal cuff is unremarkable. The unopacified urinary bladder is grossly unremarkable. Mild bilateral hip and SI joint arthrosis. No destructive osseous lesions identified. Procedure Note Interface, Radiant Results - 07/19/2018 2:37 AM CDT CTA chest, CT abdomen and pelvis HISTORY: PE is leading diagnosis,hypotensive, abdominal pain TECHNIQUE: Multiple contiguous axial images were obtained throughout the chest, abdomen, and pelvis following the administration of intravenous contrast material. Axial images were reformatted into coronal and sagittal planes. Image post processing obtained through the chest. IV contrast administered: Isovue-370 Bowel contrast administered: None. COMPARISON: No prior studies are available for comparison. FINDINGS: Chest: The visualized lower neck is unremarkable. There is mild bilateral axillary lymphadenopathy, slightly greater on the left. Pediatric Allergist left axillary lymph node measures 2.5 x 1.5 cm (series 2 image 14 ). No enlarged mediastinal or hilar lymph nodes. Mild cardiomegaly with trace pericardial fluid or thickening. The thoracic aorta is normal in caliber. No pulmonary artery filling defects are identified. The central airways are patent. Mild dependent atelectasis, greater on the right. Tiny noncalcified right middle lobe nodule measuring 0.5 cm (series 2 image 30). No consolidation, pleural effusion, or pneumothorax. Azygos fissure is noted. Left subclavian chest port in place. No destructive osseous lesions identified. Abdomen and pelvis: The liver is upper limits of normal in size with an elongated Vicky's lobe. Focal steatosis along the falciform ligament. No focal hepatic lesions are identified. The major portal veins are patent. 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 No intrahepatic biliary ductal dilatation. The spleen is normal in size. Moderate diffuse pancreatic volume loss without ductal dilatation. The adrenal glands and kidneys are unremarkable. No hydronephrosis. Small and large bowel loops are normal in caliber without evidence of obstruction. The appendix is normal. Mild retained stool throughout the colon. No ascites or pneumoperitoneum. The abdominal aorta and iliac arteries are normal in caliber with minimal calcified atherosclerosis. No retroperitoneal or mesenteric lymphadenopathy. Prominent right common iliac lymph nodes. Mildly enlarged bilateral external iliac and inguinal lymph nodes. Pediatric Allergist right external iliac lymph node measures 2.4 x 1.5 cm (series 2 image 120). The vaginal cuff is unremarkable. The unopacified urinary bladder is grossly unremarkable. Mild bilateral hip and SI joint arthrosis. No destructive osseous lesions identified. IMPRESSION Chest: 1. No evidence of acute pulmonary embolism. 2. Mild bilateral axillary lymphadenopathy which is nonspecific and may be reactive or due to systemic disease such as connective tissue disease. Other etiologies such as low-grade lymphoma and CLL could produce a similar appearance. Metastatic disease is less likely. If clinically indicated, PET/CT and/or biopsy is suggested for further evaluation. 3. Tiny noncalcified right middle lobe nodule which may represent a noncalcified granuloma or nodular scar. In the absence of risk factors, no follow-up is necessary. If the patient is high risk, follow CT chest in one year is suggested. 4. No consolidating pneumonia or pleural effusion. 5. Mild cardiomegaly. Abdomen and pelvis: 1. No abdominopelvic inflammatory mass, ascites, or bowel obstruction. Normal appendix. 2. Mild bilateral pelvic lymphadenopathy with similar differential to bilateral axillary lymphadenopathy. Finalized by Alvarado Wilkins M.D. on 07/19/2018 2:34 AM. Dictated by Alvarado Wilkins M.D. on 07/19/2018 2:25 AM. Performing Organization Address City/State/Zipcode Phone Number [facility] RESULTS * CTA CHEST WO/W CONTRAST+POST IMPRESSION (07/19/2018 2:22 AM) Impressions Performed At Chest: [facility] RESULTS 1.No evidence of acute pulmonary embolism. 2.Mild bilateral axillary lymphadenopathy which is nonspecific and may be reactive or due to systemic disease such as connective tissue disease. Other etiologies such as low-grade lymphoma and CLL could produce a similar appearance. Metastatic disease is less likely. If clinically indicated, PET/ CT and/or biopsy is suggested for further evaluation. 3.Tiny noncalcified right middle lobe nodule which may represent a noncalcified granuloma or nodular scar. In the absence of risk factors, no follow-up is necessary. If the patient is high risk, follow CT chest in one year is suggested. 4.No consolidating pneumonia or pleural effusion. 5.Mild cardiomegaly. Abdomen and pelvis: 1.No abdominopelvic inflammatory mass, ascites, or bowel obstruction. Normal appendix. 2.Mild bilateral pelvic lymphadenopathy with similar differential to bilateral axillary lymphadenopathy. Finalized by Alvarado Wilkins M.D. on 07/19/2018 2:34 AM. Dictated by Alvarado Wilkins M.D. on 07/19/2018 2:25 AM. Narrative Performed At CTA chest, CT abdomen and pelvis [facility] RESULTS HISTORY: PE is leading diagnosis,hypotensive, abdominal pain TECHNIQUE: Multiple contiguous axial images were obtained throughout the chest , abdomen, and pelvis following the administration of intravenous contrast material. Axial images were reformatted into coronal and sagittal planes. Image post processing obtained through the chest. IV contrast administered: Isovue-370 Bowel contrast administered: None. COMPARISON: No prior studies are available for comparison. FINDINGS: Chest: The visualized lower neck is unremarkable. There is mild bilateral axillary lymphadenopathy, slightly greater on the left. Pediatric Allergist left axillary lymph node measures 2.5 x 1.5 cm (series 2 image 14). No enlarged mediastinal or hilar lymph nodes. Mild cardiomegaly with trace pericardial fluid or thickening. The thoracic aorta is normal in caliber. No pulmonary artery filling defects are identified. The central airways are patent. Mild dependent atelectasis, greater on the right. Tiny noncalcified right middle lobe nodule measuring 0.5 cm (series 2 image 30). No consolidation, pleural effusion, or pneumothorax. Azygos fissure is noted. Left subclavian chest port in place. No destructive osseous lesions identified. Abdomen and pelvis: The liver is upper limits of normal in size with an elongated Vicky's lobe. Focal steatosis along the falciform ligament. No focal hepatic lesions are identified. The major portal veins are patent. 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 No intrahepatic biliary ductal dilatation. The spleen is normal in size. Moderate diffuse pancreatic volume loss without ductal dilatation. The adrenal glands and kidneys are unremarkable. No hydronephrosis. Small and large bowel loops are normal in caliber without evidence of obstruction. The appendix is normal. Mild retained stool throughout the colon. No ascites or pneumoperitoneum. The abdominal aorta and iliac arteries are normal in caliber with minimal calcified atherosclerosis. No retroperitoneal or mesenteric lymphadenopathy. Prominent right common iliac lymph nodes. Mildly enlarged bilateral external iliac and inguinal lymph nodes. Pediatric Allergist right external iliac lymph node measures 2.4 x 1.5 cm (series 2 image 120). The vaginal cuff is unremarkable. The unopacified urinary bladder is grossly unremarkable. Mild bilateral hip and SI joint arthrosis. No destructive osseous lesions identified. Procedure Note Interface, Radiant Results - 07/19/2018 2:37 AM CDT CTA chest, CT abdomen and pelvis HISTORY: PE is leading diagnosis,hypotensive, abdominal pain TECHNIQUE: Multiple contiguous axial images were obtained throughout the chest, abdomen, and pelvis following the administration of intravenous contrast material. Axial images were reformatted into coronal and sagittal planes. Image post processing obtained through the chest. IV contrast administered: Isovue-370 Bowel contrast administered: None. COMPARISON: No prior studies are available for comparison. FINDINGS: Chest: The visualized lower neck is unremarkable. There is mild bilateral axillary lymphadenopathy, slightly greater on the left. Pediatric Allergist left axillary lymph node measures 2.5 x 1.5 cm (series 2 image 14 ). No enlarged mediastinal or hilar lymph nodes. Mild cardiomegaly with trace pericardial fluid or thickening. The thoracic aorta is normal in caliber. No pulmonary artery filling defects are identified. The central airways are patent. Mild dependent atelectasis, greater on the right. Tiny noncalcified right middle lobe nodule measuring 0.5 cm (series 2 image 30). No consolidation, pleural effusion, or pneumothorax. Azygos fissure is noted. Left subclavian chest port in place. No destructive osseous lesions identified. Abdomen and pelvis: The liver is upper limits of normal in size with an elongated Vicky's lobe. Focal steatosis along the falciform ligament. No focal hepatic lesions are identified. The major portal veins are patent. 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 No intrahepatic biliary ductal dilatation. The spleen is normal in size. Moderate diffuse pancreatic volume loss without ductal dilatation. The adrenal glands and kidneys are unremarkable. No hydronephrosis. Small and large bowel loops are normal in caliber without evidence of obstruction. The appendix is normal. Mild retained stool throughout the colon. No ascites or pneumoperitoneum. The abdominal aorta and iliac arteries are normal in caliber with minimal calcified atherosclerosis. No retroperitoneal or mesenteric lymphadenopathy. Prominent right common iliac lymph nodes. Mildly enlarged bilateral external iliac and inguinal lymph nodes. Pediatric Allergist right external iliac lymph node measures 2.4 x 1.5 cm (series 2 image 120). The vaginal cuff is unremarkable. The unopacified urinary bladder is grossly unremarkable. Mild bilateral hip and SI joint arthrosis. No destructive osseous lesions identified. IMPRESSION Chest: 1. No evidence of acute pulmonary embolism. 2. Mild bilateral axillary lymphadenopathy which is nonspecific and may be reactive or due to systemic disease such as connective tissue disease. Other etiologies such as low-grade lymphoma and CLL could produce a similar appearance. Metastatic disease is less likely. If clinically indicated, PET/CT and/or biopsy is suggested for further evaluation. 3. Tiny noncalcified right middle lobe nodule which may represent a noncalcified granuloma or nodular scar. In the absence of risk factors, no follow-up is necessary. If the patient is high risk, follow CT chest in one year is suggested. 4. No consolidating pneumonia or pleural effusion. 5. Mild cardiomegaly. Abdomen and pelvis: 1. No abdominopelvic inflammatory mass, ascites, or bowel obstruction. Normal appendix. 2. Mild bilateral pelvic lymphadenopathy with similar differential to bilateral axillary lymphadenopathy. Finalized by Alvarado Wilkins M.D. on 07/19/2018 2:34 AM. Dictated by Alvarado Wilkins M.D. on 07/19/2018 2:25 AM. Performing Organization Address City/State/Zipcode Phone Number [facility] RESULTS * CT HEAD WO CONTRAST (07/19/2018 2:14 AM) Impressions Performed At No acute intracranial hemorrhage or mass effect. [facility] RESULTS Finalized by Alvarado Wilkins M.D. on 07/19/2018 2:35 AM. Dictated by Alvarado Wilkins M.D. on 07/19/2018 2:19 AM. Narrative Performed At CT Head [facility] RESULTS HISTORY: Headache TECHNIQUE: Multiple contiguous axial images were obtained of the brain without intravenous contrast. Coronal reformatted images were obtained from the source axial data. COMPARISON: No prior studies are available for comparison. FINDINGS: The ventricles and subarachnoid spaces are normal in size and configuration. The lynne-white matter interfaces are maintained. No acute intracranial hemorrhage or extra axial fluid collection is identified. The basal cisterns are patent. No midline shift or mass effect. The calvarium and skull base are intact. The mastoid air cells are well aerated. Small right sphenoid mucous retention cyst and minimal bilateral ethmoid mucosal thickening. The globes and orbits are grossly unremarkable. Procedure Note Interface, Radiant Results - 07/19/2018 2:[address] Head HISTORY: Headache TECHNIQUE: Multiple contiguous axial images were obtained of the brain without intravenous contrast. Coronal reformatted images were obtained from the source axial data. COMPARISON: No prior studies are available for comparison. FINDINGS: The ventricles and subarachnoid spaces are normal in size and configuration. The lynne-white matter interfaces are maintained. No acute intracranial hemorrhage or extra axial fluid collection is identified. The basal cisterns are patent. No midline shift or mass effect. The calvarium and skull base are intact. The mastoid air cells are well aerated. Small right sphenoid mucous retention cyst and minimal bilateral ethmoid mucosal thickening. The globes and orbits are grossly unremarkable. IMPRESSION No acute intracranial hemorrhage or mass effect. Finalized by Alvarado Wilkins M.D. on 07/19/2018 2:35 AM. Dictated by Alvarado Wilkins M.D. on 07/19/2018 2:19 AM. Performing Organization Address City/[facility] Phone Number [facility] * POC CREATININE, RAD (07/19/2018 2:03 AM) Creatinine, POC 1.2 (H) 0.4 - 1.00 MG/DL MAIN LAB Performing Organization Address [facility] Phone Number [facility] LAB [address] [place] [address] * ECG-SCAN (07/19/2018 2:00 AM) Narrative Performed At Ordered by an unspecified provider. * POC LACTATE (07/19/2018 2:00 AM) LACTIC ACID POC 1.4 0.5 - 2.0 MMOL/L MAIN LAB Performing Organization Address [facility] Phone Number [facility] LAB [address] [place] [address] * CULTURE-BLOOD W/SENSITIVITY (07/19/2018 1:40 AM) Only the most recent of 2 results within the time period is included. Battery Name BLOOD CULTURE [facility] Specimen Description BLOOD [facility] LEFT UA Special Requests NONE [facility] Culture NO GROWTH 5 DAYS [facility] Report Status FINAL [facility] 07/25/2018 Specimen Blood Performing Organization Address City/State/Zipcode Phone Number [facility] [address] [place] [address] from Last 3 Months
--- OUTSIDE RECORDS SUMMARY | 2018-08-05 14:30 | XMS REPORT | Encounter Summary ---
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 Name Role Phone Charles Chau MD Unavailable Migue Patton MD PCP Reason for Visit * Reason Comments Appointment Encounter Details Date Type Department Care Team Description 07/29/2018 Telephone [facility] Balbina Matamoros, [facility] [employer] [facility] [address] [place] [address] [phone] [place] [address] Social History Tobacco Use Types Packs/Day Years Used Date Never Smoker Smokeless Tobacco: Never Used Alcohol Use Drinks/Week oz/Week Comments No Sex Assigned at Date Recorded Not on file as of this encounter Functional Status Functional Status Response Date of Assessment Does the patient have a hearing impairment: No 07/24/2018 Does the patient have a visual impairment: No 07/22/2018 Does the patient have impaired ambulation: No 07/22/2018 Does the patient have an activity of daily living No 07/22/2018 (ADL) impairment: Does the patient have an instrumental activity of No 07/22/2018 daily living (IADL) impairment: Cognitive Status Response Date of Assessment Does the patient have a cognitive impairment: No 07/22/2018 as of this encounter Miscellaneous Notes * Telephone Encounter - Rc Malhotra RN - 07/29/2018 12:01 PM CDT Nurse received outside records. Upon chart review noticed pt did not have a f/u apt scheduled. Spoke to pt. Inquired how she was doing? Pt stated she is doing better. Advised nurse noticed pt did not have a f/u apt scheduled. Scheduled apt 09/13/18 at 0800. Pt was provided with apt date, time and was made aware of location. No further questions/concerns. Routing to Balbina Durán as FYI. in this encounter Plan of Treatment Not on fileas of this encounter Visit Diagnoses Not on filein this encounter
--- OUTSIDE RECORDS SUMMARY | 2018-08-05 14:30 | XMS REPORT | Encounter Summary ---
Author Author [facility] Organization [facility] Address Unknown Phone Unavailable Care Team Providers Care Jewelry Enameler Name Role Phone Charles Chau MD Unavailable Migue Patton MD PCP Reason for Visit * Reason Comments Abdominal pain diabetes x 2 days with nausea and diarrhea Released from hospital sunday night for same symptoms. hx of DM, pt reports sugars was 112 about an hour ago Encounter Details Date Type Department Care Team Description 07/24/2018 Emergency Emergency Dept. [address] [place] [address] [address] Social History Tobacco Use Types Packs/Day Years Used Date Never Smoker Smokeless Tobacco: Never Used Alcohol Use Drinks/Week oz/Week Comments No Sex Assigned at Date Recorded Not on file as of this encounter Last Filed Vital Signs Vital Sign Reading Time Taken Blood Pressure 143/77 07/24/2018 9:00 PM CDT Pulse 90 07/24/2018 4:50 PM CDT Temperature 37 C (98.6 F) 07/24/2018 4:50 PM CDT Respiratory Rate - - Oxygen Saturation 99% 07/24/2018 9:00 PM CDT Inhaled Oxygen - - Concentration Weight 63.5 kg (140 lb) 07/24/2018 4:50 PM CDT Height - - Body Mass Index 23.3 07/24/2018 4:50 PM CDT in this encounter Functional Status Functional Status Response [...] impairment: No 07/22/2018 as of this encounter Discharge Instructions * Matias Berman APRN - 07/24/2018 Fill and take prescriptions as directed at discharge. The following attachments cannot be sent through Care Everywhere.* Headaches, Self-Care for ([place]) * Vomiting (Adult) ([place]) in this encounter Medications at Time of Discharge Medication Sig. Disp. Refills Start Date End Date acetaminophen/lidocaine/a Take 30 mL by mouth three 300 mL 0 2017 ntacid DS(#) (GI times daily as needed. COCKTAIL) 1:1:3 ALPRAZolam (XANAX) 1 mg Take 1 mg by mouth at tablet bedtime as needed for Anxiety. atorvastatin (LIPITOR) 40 Take 40 mg by mouth mg tablet daily. carBAMazepine (TEGRETOL) Take 400 mg by mouth 200 mg tablet daily. cetirizine (ZYRTEC) 10 mg Take 10 mg by mouth every tablet morning. cholecalciferol(+) Take 5,000 Units by mouth (VITAMIN D-3) 5,000 unit daily. tablet clobetasol (TEMOVATE) Apply topically to 0.05 % topical solution affected area twice daily. coenzyme Q10(+) 100 mg Take one capsule by mouth 60 capsule 1 2017 cap twice daily. diclofenac(+) (VOLTAREN) Apply 4 g topically to 1 % topical gel affected area four times daily as needed. duloxetine DR (CYMBALTA) Take three capsules by 30 capsule 1 2017 30 mg capsule mouth daily. estrogens, conjugated(+) Insert or Apply 0.5 g to (PREMARIN) 0.625 mg/g vaginal area daily. vaginal cream ferrous gluconate Take one tablet by mouth 30 tablet 1 07/22/2018 (FERGON) 240 mg (27 mg daily. iron) tablet fesoterodine ER(+) Take 4 mg by mouth daily. (TOVIAZ) 4 mg tablet fludrocortisone Take 0.1 mg by mouth (FLORINEF) 0.1 mg tablet daily. fluticasone (FLONASE) 50 Apply to each nostril as mcg/actuation nasal spray directed daily. Shake bottle gently before using. glucagon,human Inject 1 Units to area(s) recombinant (GLUCAGEN as directed as Needed. DIAGNOSTIC KIT IJ) hydroxychloroquine Take 200 mg by mouth (PLAQUENIL) 200 mg tablet daily. Take with food. insulin degludec (TRESEBA Inject 17 Units under the SOLOSTAR) 100 unit/mL (3 skin at bedtime daily. mL) injection pen insulin lispro(+) Inject 6 units 45 mL 0 07/22/2018 (HUMALOG KWIKPEN INSULIN) subcutaneously with 100 unit/mL injection PEN breakfast and lunch, and 10 units with dinner. levocarnitine(+) Take four tablets by 240 tablet 1 07/22/2018 (LEVOCARNITINE(+)) 500 mg mouth twice daily. tablet levothyroxine (SYNTHROID) Take 175 mcg by mouth 175 mcg tablet daily 30 minutes before breakfast. lidocaine/prilocaine Apply topically to (EMLA) 2.5/2.5 % topical affected area as Needed. cream LORazepam (ATIVAN) 1 mg Take 1 mg by mouth every tablet 4 hours as needed for Nausea, Vomiting or Other.... magnesium oxide (MAG-OX) Take one tablet by mouth 180 tablet 3 2017 400 mg tablet daily. montelukast (SINGULAIR) Take 10 mg by mouth at 10 mg tablet bedtime daily. multivitamin with Take by mouth. minerals (HAIR,SKIN AND NAILS PO) nystatin (NYSTOP) 100,000 Apply topically to unit/g topical powder affected area four times daily. ondansetron (ZOFRAN ODT) Dissolve one tablet by 90 tablet 0 2017 4 mg rapid dissolve mouth every [address] on tongue to disolve. pantoprazole DR Take 40 mg by mouth (PROTONIX) 40 mg tablet daily. pentosan polysulfate Take 100 mg by mouth sodium (ELMIRON) 100 mg three times daily before capsule meals. polyethylene glycol 3350 Take one packet by mouth 30 each 1 2017 (MIRALAX) 17 g packet daily. potassium chloride SR Take 10 mEq by mouth (K-DUR) 10 mEq tablet daily. Take with a meal and a full glass of water. pregabalin (LYRICA) 150 Take 150 mg by mouth mg capsule twice daily. promethazine (PHENERGAN) Insert or Apply one 30 each 0 07/18/2018 12.5 mg rectal suppository to rectal suppository area as directed every 8 hours as needed for Nausea. rizatriptan (MAXALT) 10 Take 10 mg by mouth once mg tablet as needed for Headache. May repeat in 2 hours if needed sucralfate (CARAFATE) 1 Take 1 g by mouth three gram tablet times daily before meals. Take on an empty stomach. tiZANidine (ZANAFLEX) 4 Take 4 mg by mouth every mg tablet 6 hours as needed. vitamins, B complex tab Take one tablet by mouth 30 tablet 1 2017 daily. zolpidem (AMBIEN) 10 mg Take 10 mg by mouth at tablet bedtime as needed for Sleep. as of this encounter Miscellaneous Notes * ED Notes - Leti Lara RN - 07/24/2018 9:52 PM CDT Port de-accessed at this time. Discharge instructions reviewed with patient and patient verbalized understanding. Patient educated on headache, vomiting, and need for follow-up with neurology. Patient leaving in agreement with plan of care. Patient wheeled to exit by her significant other. * ED Notes - Leti Lara RN - 07/24/2018 9:25 PM CDT Pt to and from restroom with this RN. * ED Notes - Leti Lara RN - 07/24/2018 9:03 PM CDT ALLISON Salcedo at bedside. * ED Notes - Leti Lara RN - 07/24/2018 8:37 PM CDT Pt reporting little to no improvement in pain following medication administration. Ordered toradol administered at this time. * ED Notes - Leti Lara RN - 07/24/2018 7:02 PM CDT ALLISON Salcedo at bedside. * ED Provider Notes - Matias Berman APRN - 07/24/2018 6:53 PM CDT Formatting of this note may be different from the original. Chelsea Castillo is a 58 y.o. female. Chief Complaint: Chief Complaint Patient presents with Abdominal pain diabetes x 2 days with nausea and diarrhea Released from hospital lali night for same symptoms. hx of DM, pt reports sugars was 112 about an hour ago History of Present Illness: Chelsea Castillo is a 58 y.o. female, with a history of gastritis of unclear etiology, hypothyroidism s/p thyroidectomy, T2DM, migraine headaches, depression, anxiety, and arthritis of unknown etiology who presents to the emergency department for abdominal pain. Patient was admitted 07/19 for epigastric abdominal pain associated with nausea and vomiting and headache. She received CT head, CTA chest, CT pelvis that were unremarkable for acute findings and admitted to Internal Medicine for pain control. Patient was discharged 07/22 and began to have pain again last night. She first experienced nausea followed by vomiting, then headache and abdominal pain. She took anti- nausea medications without relief and has not yet filled most recent changes to medications made on 07/22. Patient notes seeing flashes of light prior to having headaches and says they are associated with photophobia and phonophobia. States this is typical of her migraines. Pt states she has appointment with neurology tomorrow. History provided by: Patient research anthropologist used: No Review of Systems: Review of Systems Constitutional: Negative for chills and fever. HENT: Negative for congestion and sore throat. Eyes: Negative for photophobia and visual disturbance. Respiratory: Negative for cough and shortness of breath. Cardiovascular: Negative for chest pain, palpitations and leg swelling. Gastrointestinal: Positive for abdominal pain, nausea and vomiting. Negative for diarrhea. Endocrine: Negative. Genitourinary: Negative for dysuria, frequency and hematuria. Musculoskeletal: Negative for arthralgias. Skin: Negative for rash. Neurological: Positive for headaches. Negative for syncope, weakness and numbness. Psychiatric/Behavioral: Negative for confusion. All other systems reviewed and are negative. Allergies: Sulfa (sulfonamide antibiotics) Past Medical History: Past Medical History: Diagnosis Date Arthritis Diabetes mellitus type 1 (HCC) Osteoporosis Stomach problems Thyroid disorder Past Surgical History: Past Surgical History: Procedure Laterality Date GALLBLADDER SURGERY 1989 HX HYSTERECTOMY 12/2001 EYE SURGERY 07/2005 laser eye rietina, eyes were bleeding behind them. CARPAL TUNNEL RELEASE Right 08/2012 right hand HAND SURGERY 09/2013 HERNIA REPAIR 03/2014 ESOPHAGUS SURGERY 03/2014 Esophageal ulcers and healing Pertinent medical/surgical history reviewed Past Medical History: Diagnosis Date Arthritis Diabetes mellitus type 1 (HCC) Osteoporosis Stomach problems Thyroid disorder Past Surgical History: Procedure Laterality Date GALLBLADDER SURGERY 1989 HX HYSTERECTOMY 12/2001 EYE SURGERY 07/2005 laser eye rietina, eyes were bleeding behind them. CARPAL TUNNEL RELEASE Right 08/2012 right hand HAND SURGERY 09/2013 HERNIA REPAIR 03/2014 ESOPHAGUS SURGERY 03/2014 Esophageal ulcers and healing Social History: Social History Substance Use Topics Smoking status: Never Smoker Smokeless tobacco: Never Used Alcohol use No History Drug use: Unknown Family History: Family History Problem Relation Age of Onset GI Cancer Mother Cancer-Breast Maternal Grandmother Celiac Disease Neg Hx Cancer-Colon Neg Hx Colon Polyps Neg Hx Inflammatory Bowel Disease Neg Hx Rectal Cancer Neg Hx Ulcerative Colitis Neg Hx Vitals: ED Vitals Date and Time T BP P RR SPO2P SPO2 User 07/24/18 2100 -- 143/77 -- 16 PER MINUTE 91 99 % DM 07/24/18 2030 -- 155/78 -- -- 93 100 % DM 07/24/18 2000 -- 153/72 -- -- 92 100 % DM 07/24/18 1930 -- 146/78 -- -- 83 100 % DM 07/24/18 1900 -- 139/83 -- -- 82 100 % DM 07/24/18 1830 -- 150/78 -- -- 84 99 % DM 07/24/18 1800 -- 162/87 -- -- 87 99 % DM 07/24/18 1650 37 C (98.6 F) (!) 144/94 90 18 PER MINUTE -- 100 % JR Physical Exam: Physical Exam Constitutional: She is oriented to person, place, and time. No distress. HENT: Head: Normocephalic and atraumatic. Eyes: Conjunctivae are normal. Neck: Neck supple. Cardiovascular: Normal rate, regular rhythm and normal heart sounds. Pulmonary/Chest: Effort normal and breath sounds normal. No respiratory distress. She has no wheezes. She has no rales. She exhibits no tenderness. Abdominal: Soft. She exhibits no distension. There is tenderness in the epigastric area. Musculoskeletal: Normal range of motion. She exhibits no edema. Neurological: She is alert and oriented to person, place, and time. Skin: Skin is warm and dry. Capillary refill takes less than 2 seconds. She is not diaphoretic. Psychiatric: She has a normal mood and affect. Nursing note and vitals reviewed. Laboratory Results: Results for orders placed or performed during the hospital encounter of (from the past 24 hour(s)) CBC AND DIFF Result Value Ref Range White Blood Cells 9.9 4.5 - 11.0 K/UL RBC 3.39 (L) 4.0 - 5.0 M/UL Hemoglobin 9.0 (L) 12.0 - 15.0 GM/DL Hematocrit 27.5 (L) 36 - 45 % MCV 81.1 80 - 100 FL MCH 26.7 26 - 34 PG MCHC 32.9 32.0 - 36.0 G/DL RDW 16.8 (H) 11 - 15 % Platelet Count 216 150 - 400 K/UL MPV 9.9 7 - 11 FL Neutrophils 35 (L) 41 - 77 % Lymphocytes 45 (H) 24 - 44 % Monocytes 5 4 - 12 % Eosinophils 14 (H) 0 - 5 % Basophils 1 0 - 2 % Absolute Neutrophil Count 3.50 1.8 - 7.0 K/UL Absolute Lymph Count 4.50 1.0 - 4.8 K/UL Absolute Monocyte Count 0.50 0 - 0.80 K/UL Absolute Eosinophil Count 1.40 (H) 0 - 0.45 K/UL Absolute Basophil Count 0.10 0 - 0.20 K/UL COMPREHENSIVE METABOLIC PANEL Result Value Ref Range Sodium 141 137 - 147 MMOL/L Potassium 3.1 (L) 3.5 - 5.1 MMOL/L Chloride 107 98 - 110 MMOL/L Glucose 162 (H) 70 - 100 MG/DL Blood Urea Nitrogen 9 7 - 25 MG/DL Creatinine 0.99 0.4 - 1.00 MG/DL Calcium 8.0 (L) 8.5 - 10.6 MG/DL Total Protein 5.6 (L) 6.0 - 8.0 G/DL Total Bilirubin 0.3 0.3 - 1.2 MG/DL Albumin 3.3 (L) 3.5 - 5.0 G/DL Alk Phosphatase 67 25 - 110 U/L AST (SGOT) 16 7 - 40 U/L CO2 24 21 - 30 MMOL/L ALT (SGPT) 10 7 - 56 U/L Anion Gap 10 3 - 12 eGFR Non 58 (L) >60 mL/min eGFR >60 >60 mL/min LIPASE Result Value Ref Range Lipase 13 11 - 82 U/L Urine Urine : Negative QC: Acceptable Urine Lot #: [id number] EKG: NSR at 71 bpm ED Course: The pt was seen and evaluated by Matias Kazmaier, ROAD MIXER OPERATOR Labs were ordered. Pt was given compazine, magnesium and benadryl for headache and nausea and NS bolus was initiated. Headache and stomach pain minimally improved. Gave GI cocktail and toradol. Pt states feeling improved with headache to 6/10 and stomach pain resolved. Gave tylenol and pt states headache is much better and she feels like she could go home at this point. Pt has 1 1/2 hour ride home so gave dose of zofran to curb nausea for the ride home. Instructed to fill and take all medications as previously directed. Instructed self care for recurrent headache. Return precautions were provided. The pt was discharged in stable condition. MDM Reviewed: previous chart, nursing note and vitals Interpretation: labs Facility Administered Meds: Facility-Administered Medications as of 07/24/2018 Medication Last Dose [COMPLETED] acetaminophen (TYLENOL) tablet 1,000 mg 1,000 mg at 07/24/182110 [COMPLETED] acetaminophen/lidocaine/antacid DS(#) (GI COCKTAIL) 1:1:3 suspension 30 mL 30 mL at 07/24/182031 [COMPLETED] diphenhydrAMINE (BENADRYL) injection 25 mg 25 mg at 07/24/181928 [COMPLETED] heparin lock flush PF syringe 500 Units 500 Units at 07/24/182146 [COMPLETED] ketorolac (TORADOL) injection 15 mg 15 mg at 07/24/182031 [COMPLETED] magnesium sulfate 1 g/D5W 100 mL IVPB Stopped at 07/24/182036 [COMPLETED] ondansetron (ZOFRAN) injection 4 mg 4 mg at 07/24/182137 [COMPLETED] prochlorperazine (COMPAZINE) injection 10 mg 10 mg at 07/24/181928 [COMPLETED] sodium chloride 0.9 % infusion Stopped at 07/24/182102 Clinical Impression: Final diagnoses: Acute nonintractable headache, unspecified headache type (Primary) Abdominal pain, epigastric Non-intractable vomiting with nausea, unspecified vomiting type Disposition/Follow up Discharge Migue Patton III, MD [address] [facility] [address] As needed Dpt [facility], Neurology [address] [facility] [address] In 1 day as scheduled Emergency Dept. [address] [place] [address]. [facility] [id number] If symptoms worsen Medications: New Prescriptions No medications on file Procedure Notes: Procedures Attestation / Supervision: Perla Boyd, acacia scribing for and in the presence of Marcela Berman APRN. Perla Irizarry Attestation / Supervision Note concerning Chelsea Castillo: The service was provided by the ENTRY LEVEL MANUFACTURING ENGINEER alone with immediate availability of a physician in the ED. and Matias Boyd APRN, personally performed the services described in this documentation as scribed in my presence and it is both accurate and complete. Matisa Berman APRN * ED Notes - Jessi Verde RN - 07/24/2018 6:03 PM CDT Pt arrived to ED11 via triage with her at her side. She was discharged from [facility] on Sunday and doctor wanted to keep her another day, but she wanted to go home because she was feeling better. She reports that nausea and vomiting and migraine started last night and they drove here from where they live near [place], [place] as all her doctors are here. She denies CP. Siderails up X2, call light within reach. in this encounter Plan of Treatment Not on fileas of this encounter Procedures Procedure Name Priority Date/Time Associated Diagnosis Comments URINALYSIS, MICROSCOPIC STAT 07/24/2018 Results for this [...] CDT procedure are in the results section. in this encounter Results * URINALYSIS, MICROSCOPIC (07/24/2018 9:19 PM) WBCs,UA 2-10 0 - 2 /HPF [facility] RBCs,UA 0-2 0 - 3 /HPF [facility] MucousUA 1+ [facility] Squamous Epithelial Cells 0-2 0 - 5 [facility] Specimen Urine - Urine Performing Organization Address City/State/[facility] Phone Number [facility] [address] [place] [address] * URINALYSIS DIPSTICK (07/24/2018 9:19 PM) Color,UA YELLOW [facility] Turbidity,UA CLEAR CLEAR-CLEAR [facility] Specific [place]-Urine 1.016 1.003 - 1.035 [facility] pH,UA 7.0 5.0 - 8.0 [facility] Protein,UA NEG NEG-NEG [facility] Glucose,UA 1+ (A) NEG-NEG [facility] Ketones,UA 2+ (A) NEG-NEG [facility] Bilirubin,UA NEG NEG-NEG [facility] Blood,UA NEG NEG-NEG [facility] Urobilinogen,UA NORMAL NORM-NORMAL [facility] Nitrite,UA NEG NEG-NEG [facility] Leukocytes,UA 1+ (A) NEG-NEG [facility] Urine Ascorbic Acid, UA NEG NEG-NEG [facility] Specimen Urine - Urine Performing Organization Address [facility] Phone Number MAIN LAB [address] [place] [address] * LIPASE (07/24/2018 6:02 PM) Lipase 13 11 - 82 U/L [facility] Specimen Blood Performing Organization Address [facility] Phone Number [facility] [address] [place] [address] * COMPREHENSIVE METABOLIC PANEL (07/24/2018 6:02 PM) Sodium 141 137 - 147 MMOL/L [facility] Potassium 3.1 (L) 3.5 - 5.1 MMOL/L [facility] Chloride 107 98 - 110 MMOL/L [facility] Glucose 162 (H) 70 - 100 MG/DL [facility] Blood Urea Nitrogen 9 7 - 25 MG/DL [facility] Creatinine 0.99 0.4 - 1.00 MG/DL [facility] Calcium 8.0 (L) 8.5 - 10.6 MG/DL [facility] Total Protein 5.6 (L) 6.0 - 8.0 G/DL [facility] Total Bilirubin 0.3 0.3 - 1.2 MG/DL [facility] Albumin 3.3 (L) 3.5 - 5.0 G/DL [facility] Alk Phosphatase 67 25 - 110 U/L [facility] AST (SGOT) 16 7 - 40 U/L [facility] CO2 24 21 - 30 MMOL/L [facility] ALT (SGPT) 10 7 - 56 U/L [facility] Anion Gap 10 3 - 12 [facility] eGFR Non 58 (L) >60 mL/min [facility] Comment: [...] for questions. Specimen Blood Performing Organization Address City/State/Zipcode Phone Number [facility] [address] [place] [address] * CBC AND DIFF (07/24/2018 6:02 PM) White Blood Cells 9.9 4.5 - 11.0 K/UL [facility] RBC 3.39 (L) 4.0 - 5.0 M/UL [facility] Hemoglobin 9.0 (L) 12.0 - 15.0 GM/DL [facility] Hematocrit 27.5 (L) 36 - 45 % [facility] MCV 81.1 80 - 100 FL [facility] MCH 26.7 26 - 34 PG [facility] MCHC 32.9 32.0 - 36.0 G/DL [facility] RDW 16.8 (H) 11 - 15 % [facility] Platelet Count 216 150 - 400 K/UL [facility] MPV 9.9 7 - 11 FL [facility] Neutrophils 35 (L) 41 - 77 % [facility] Lymphocytes 45 (H) 24 - 44 % [facility] Monocytes 5 4 - 12 % [facility] Eosinophils 14 (H) 0 - 5 % [facility] Basophils 1 0 - 2 % [facility] Absolute Neutrophil Count 3.50 1.8 - 7.0 K/UL [facility] Absolute Lymph Count 4.50 1.0 - 4.8 K/UL [facility] Absolute Monocyte Count 0.50 0 - 0.80 K/UL [facility] Absolute Eosinophil Count 1.40 (H) 0 - 0.45 K/UL [facility] Absolute Basophil Count 0.10 0 - 0.20 K/UL [facility] Specimen Blood Performing Organization Address City/State/Zipcode Phone Number [facility] [address] [place] [address] in this encounter Visit Diagnoses Diagnosis Acute nonintractable headache, unspecified headache type - Primary Abdominal pain, epigastric Non-intractable vomiting with nausea, unspecified vomiting type Administered Medications Medication Order MAR Action Action Date Dose Rate Site acetaminophen (TYLENOL) tablet 1,000 mg Given 07/24/2018 1,000 mg 1,000 mg, Oral, ONCE, 1 dose, Sun07/24/18 21:11 CDT at 2115, TOTAL ACETAMINOPHEN DOSE NOT TO EXCEED 4GM DAILY acetaminophen/lidocaine/antacid DS(#) Given 07/24/2018 30 mL (GI COCKTAIL) 1:1:3 suspension 30 mL 20:32 CDT 30 mL, Oral, ONCE, 1 dose, Sun07/24/18 at 2030, 30mL (1:1:3)=192mg/6mL acetamin-6mL 2% vis lidocaine-18mL Antacid DS diphenhydrAMINE (BENADRYL) injection 25 Given 07/24/2018 25 mg mg 19:29 CDT 25 mg, Intravenous, ONCE, 1 dose, 07/24/18 at 1915 heparin lock flush PF syringe 500 Units Given 07/24/2018 500 Units 500 Units, Intravenous, ONCE, 1 dose, 21:47 CDT 07/24/18 at 2145, For Port de-accessing NOTE: This is a HIGH ALERT Medication. ketorolac (TORADOL) injection 15 mg Given 07/24/2018 15 mg 15 mg, Intravenous, ONCE, 1 dose, Wed 20:32 CDT 07/24/18 at 2030 magnesium sulfate 1 g/D5W 100 mL IVPB Given - New 07/24/2018 1 g 100 mL/hr 1 g, Intravenous, 100 mL, Administer Bag 19:29 CDT over 1 Hours, ONCE, 1 dose, Sun07/24/18 at 1915, Each 1gm delivers 8.1 mEq Magnesium. ondansetron (ZOFRAN) injection 4 mg Given 07/24/2018 4 mg 4 mg, Intravenous, ONCE, 1 dose, Wed 21:38 CDT 07/24/18 at 2145 prochlorperazine (COMPAZINE) injection Given 07/24/2018 10 mg 10 mg 19:29 CDT 10 mg, Intravenous, ONCE, 1 dose, 07/24/18 at 1915, PROTECT FROM LIGHT -- May be given undiluted, or each 5mg may be diluted with 9 mL of NS to facilitate titration. sodium chloride 0.9 % infusion Given - New 07/24/2018 1,000 mL 1000 mL /hr 1,000 mL, 1,000 mL, Intravenous, at Bag 19:29 CDT 1,000 mL/hr, BOLUS, 1 dose, 07/24/18 at 1915 in this encounter
--- OUTSIDE RECORDS SUMMARY | 2018-08-05 14:30 | XMS REPORT | Encounter Summary ---
Author Author [facility] Organization [facility] Address Unknown Phone Unavailable Care Team Providers Care Coil Rewind Machine Operator Name Role Phone Charles Chau MD Unavailable Migue Patton MD PCP Reason for Visit * Reason Comments Chest Pain intermittent since yesterday, associated dizziness, Encounter Details Date Type Department Care Team Description 08/04/2018 Emergency Emergency Dept. Hoa Zhao MD [address] [place] [address] [place] [address] [phone] Social History Tobacco Use Types Packs/Day Years [...] F) 08/04/2018 4:21 PM CDT Respiratory Rate - - Oxygen Saturation 94% 08/04/2018 9:00 PM CDT Inhaled Oxygen - - Concentration Weight 61.2 kg (135 lb) 08/04/2018 4:21 PM CDT Height - - Body Mass Index 22.47 08/04/2018 4:21 PM CDT in this encounter Functional Status Functional Status Response Date of Assessment Does the patient have a hearing impairment: No 08/04/2018 Does the patient have a visual impairment: [...] encounter Miscellaneous Notes * ED Notes - Pamela Aguirre RN - 08/04/2018 9:16 PM CDT Discharge instructions discussed and given to the patient. Patient verbalizes understanding and has no questions at this time. Patient discharges, stable in wheelchair, accompanied by . * ED Notes - Gogo Ramirez RN - 08/04/2018 7:36 PM CDT This RN to bedside. Pt awakens to this RN's voice and is able to answer simple questions. Pt's is at bedside and states that she foes appear more sleepy then earlier today but she has not slept well the last few days because she has been sick. * ED Notes - Jyoti Orourke RN - 08/04/2018 6:34 PM CDT Alteplace removed from line and 5mls blood wasted. Port flushed, then no blood return. Port de accesed * ED Notes - Jyoti Orourke RN - 08/04/2018 4:34 PM CDT Pt presents to the ER with reports of chest pain, sore throat, poor appetite and headache x 2 days. Pt hypotensive with SBP in the 50s on arrival. PMH DM, hypothyroidism. Pt lethargic, hypotensive, respirations even and unlabored, skin cool/pale. Port accessed, no blood return. Pt resting on cart, call light within reach, RN awaiting further orders. Belongings: tshirt, sweat pants, socks, tennis shoes. * ED Notes - Ana Laura De Souza RN - 08/04/2018 4:23 PM CDT Bed: 33 Expected date: Expected time: Means of arrival: Comments: Issa castillo in this encounter Plan of Treatment Name Priority Associated Diagnoses Order Schedule POC TROPONIN STAT ONE TIME for 1 Occurrences starting 08/04/2018 until 08/04/2018 POC GLUCOSE STAT ONE TIME for 1 Occurrences starting 08/04/2018 until 08/04/2018 as of this encounter Procedures * The patient is currently admitted. [...] ECG 12-LEAD STAT 08/04/2018 4:15 PM CDT in this encounter Results * URINALYSIS, MICROSCOPIC (08/04/2018 7:12 PM) WBCs,UA 0-2 0 - 2 /HPF [facility] RBCs,UA 0-2 0 - 3 /HPF [facility] MucousUA TRACE [facility] Squamous Epithelial Cells 0-2 0 - 5 [facility] Hyaline Cast 5-10 [facility] Specimen Urine - Urine Performing Organization Address City/State/Zipcode Phone Number [facility] [address] [place] [address] * URINALYSIS DIPSTICK (08/04/2018 7:12 PM) Color,UA YELLOW [facility] Turbidity,UA CLEAR CLEAR-CLEAR [facility] Specific [place]-Urine 1.020 1.003 - 1.035 [facility] [...] Specimen Urine - Urine Performing Organization Address City/[facility] Phone Number [facility] [address] [place] [address] * CHEST SINGLE VIEW (08/04/2018 5:10 PM) Impressions Performed At No acute cardiopulmonary abnormality. [facility] Approved by Quincy Baxter M.D. on 08/05/2018 8:26 AM By my electronic signature, I attest that I have personally reviewed the images for this examination and formulated the interpretations and opinions expressed in this report Finalized by Kings Flores M.D. on 08/05/2018 11:18 AM. Dictated by Quincy Baxter M.D. on 08/05/2018 7:27 AM. Narrative [...] IMPRESSION No acute cardiopulmonary abnormality. Approved by Quincy Baxter M.D. on 08/05/2018 8:26 AM By my electronic signature, I attest that I have personally reviewed the images for this examination and formulated the interpretations and opinions expressed in this report Finalized by Kings Flores M.D. on 08/05/2018 11:18 AM. Dictated by Quincy Baxter M.D. on 08/05/2018 7:27 AM. Performing Organization Address City/[facility] Phone Number [facility] * FREE T4-FREE THYROXINE (08/04/2018 4:46 PM) T4-Free 1.1 0.6 - 1.6 NG/DL [facility] Performing Organization Address [facility] Phone Number [facility] [address] [place] [address] * POC TROPONIN (08/04/2018 4:46 PM) Ghynkqgi-P-RZS 0.02 0.00 - 0.05 NG/ML [facility] Performing Organization Address [facility] Phone Number [facility] [address] [place] [address] * POC GLUCOSE (08/04/2018 4:46 PM) Glucose, POC 212 (H) 70 - 100 MG/DL [facility] Performing Organization Address [facility] Phone Number [facility] [address] [place] [address] * TSH WITH FREE T4 REFLEX (08/04/2018 4:46 PM) TSH 0.330 (L) 0.35 - 5.00 MCU/ML [facility] Specimen Blood Performing Organization Address [facility] Phone Number [facility] [address] [place] [address] * COMPREHENSIVE METABOLIC PANEL (08/04/2018 4:46 PM) Sodium 135 (L) 137 - 147 MMOL/L [...] LAB CO2 22 21 - 30 MMOL/L [facility] ALT (SGPT) 12 7 - [...] for questions. Specimen Blood Performing Organization Address City/[facility] Phone Number [facility] [address] [place] [address] * CBC AND DIFF (08/04/2018 4:46 PM) White Blood Cells 12.5 (H) 4.5 - [...] MAIN LAB Specimen Blood Performing Organization Address City/[facility]/Zipcode Phone Number [facility] [address] [place] [address] in this encounter Visit Diagnoses Diagnosis Acute URI - Primary Acute upper respiratory infections of unspecified site Nonintractable headache, unspecified chronicity pattern, unspecified headache type Administered Medications Medication Order MAR Action Action Date Dose Rate Site acetaminophen/lidocaine/antacid DS(#) Given 08/04/2018 30 mL (GI COCKTAIL) 1:1:3 suspension 30 mL 17:59 CDT 30 mL, Oral, ONCE, 1 dose, 08/04/18 at 1745, 30mL (1:1:3)=192mg/6mL acetamin-6mL 2% vis lidocaine-18mL Antacid DS alteplase (CATHFLO ACTIVASE) injection 2 Given 08/04/2018 2 mg mg 17:36 CDT 2 mg, Injection, ONCE, 1 dose, 08/04/18 at 1745 aspirin tablet 325 mg Given 08/04/2018 325 mg 325 mg, Oral, ONCE, 1 dose, 08/04/18 16:49 CDT at 1645 diphenhydrAMINE (BENADRYL) injection 25 Given 08/04/2018 25 mg mg 17:59 CDT 25 mg, Intravenous, ONCE, 1 dose, 08/04/18 at 1745 ketorolac (TORADOL) injection 30 mg Given 08/04/2018 30 mg 30 mg, Intravenous, ONCE, 1 dose, Sun 17:59 CDT 08/04/18 at 1745, Please note: this medication will be automatically discontinued 5 days after ordered per hospital policy. Please obtain a new order if the medication needs to be continued. ondansetron (ZOFRAN) injection 4 mg Given 08/04/2018 4 mg 4 mg, Intravenous, ONCE, 1 dose, Sun 17:59 CDT 08/04/18 at 1645 prochlorperazine (COMPAZINE) injection Given 08/04/2018 10 mg 10 mg 17:59 CDT 10 mg, Intravenous, ONCE, 1 dose, 08/04/18 at 1745, PROTECT FROM LIGHT -- May be given undiluted, or each 5mg may be diluted with 9 mL of NS to facilitate titration. sodium chloride 0.9 % infusion Given - New 08/04/2018 1,000 mL 999 mL /hr 1,000 mL, 1,000 mL, Intravenous, at 999 Bag 18:00 CDT mL/hr, BOLUS, 1 dose, 08/04/18 at 1700 sodium chloride 0.9 % infusion Given - New 08/04/2018 1,000 mL 1000 mL/hr 1,000 mL, 1,000 mL, Intravenous, at Bag 19:42 CDT 1,000 mL/hr, BOLUS, 1 dose, 08/04/18 at 1815 in this encounter
--- OUTSIDE RECORDS SUMMARY | 2018-08-05 14:31 | XMS REPORT | Encounter Summary ---
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 (Ondansetron ) [facility] [address] [place] [address] [phone] [place] [address] Social History Tobacco Use Types Packs/Day Years Used Date Never Smoker Smokeless Tobacco: Never Used Alcohol Use Drinks/Week oz/Week Comments No Sex Assigned at Date Recorded Not on file as of this encounter Functional Status Functional Status Response Date of Assessment Does the patient have a hearing impairment: No 07/22/2018 Does the patient have a visual impairment: [...] encounter Miscellaneous Notes * Telephone Encounter - Zhu Stephanie - 07/24/2018 2:21 PM CDT Received PA denial for medication Ondansetron, the medicare rule in the rx drug manual says off-label use of a drug is a use that is not included on the drug's label as approved by the FDA. The off label use of the medication for medication is not medically accepted per Medicare rules and isn't covered based on available information. Diagnosis used Nausea/Vomiting and Nausea relation to abdominal pain. * Telephone Encounter - Molly Zhusha - 07/23/2018 2:49 PM CDT Completed PA for medication Ondansetron through [employer], waiting on approval or denial. in this encounter Plan of Treatment Not on fileas of this encounter Visit Diagnoses Not on filein this encounter
--- OUTSIDE RECORDS SUMMARY | 2018-08-05 14:33 | XMS REPORT | Encounter Summary ---
Author Author [facility] Organization [facility] Address Unknown Phone Unavailable Care Team Providers Care Slip Cover Operator Name Role Phone Charles Chau MD Unavailable Migue Patton MD PCP Encounter Details Date Type Department Care Team Description 07/19/2018 [facility] [address] [place] [address] Social History Tobacco Use Types Packs/Day Years Used Date Never Smoker Smokeless Tobacco: Never Used Alcohol Use Drinks/Week oz/Week Comments No Sex Assigned at Date Recorded Not on file as of this encounter Functional Status Functional Status Response Date of Assessment Does the patient have a hearing impairment: No 07/19/2018 as of this encounter Plan of Treatment Not on fileas of this encounter Visit Diagnoses Not on filein this encounter
--- OUTSIDE RECORDS SUMMARY | 2018-08-05 14:33 | XMS REPORT | Encounter Summary ---
Author Author [facility] Organization [facility] Address Unknown Phone Unavailable Care Team Providers Care Network Associate Name Role Phone Charles Chau MD Unavailable Rubio Meza MD PCP Reason for Referral * Consult, Test & Treat (Routine) Status Reason Specialty Diagnoses / Referred By Referred To Procedures Contact Contact New Request Specialty Rheumatology Diagnoses Leisa Chamberlain MD [facility] Services Abdominal pain, [address] Rheumatology Cl Required unspecified [address] [facility] abdominal MS [id number] [address] [place], [place] Phone: [phone] Phone: * (Routine) Status Reason Specialty Diagnoses / Referred By Referred To Procedures Contact Contact New Request Procedures Sandra Ho F/U APPT MD REQUEST: [facility] [address] [facility] [place] [address] [place] [address] * (Routine) Status Reason Specialty Diagnoses / Referred By Referred To Procedures Contact Contact New Request Procedures Sandra Ho F/U APPT MD REQUEST: [facility] [address] [facility] [place] [address] [place] [address] Reason for Visit * Reason Comments Head Pain Vomiting * Auth/Cert Status Reason Specialty Diagnoses / Referred By Referred To Procedures Contact Contact Diagnoses Abdominal pain Encounter Details Date Type Department Care Team Description 07/19/2018 [facility] CARDIAC AND FAMILY Hoa Sarkar MD Abdominal pain - Encounter MEDICINE PROGRESSIVE CARE [address] 07/22/2018 [address] [place] [address] [place] [address] [phone] B Jimbo melton DO F ink, Jennifer, MD [address] [facility] [address] [place] [address] [phone] Social History Tobacco Use Types Packs/Day Years Used Date Never Smoker Smokeless Tobacco: Never Used Alcohol Use Drinks/Week oz/Week Comments No Sex Assigned at Date Recorded Not on file as of this encounter Last Filed Vital Signs Vital Sign Reading Time Taken Blood Pressure 110/58 07/22/2018 4:39 PM CDT Pulse 78 07/22/2018 10:46 AM CDT Temperature 36.8 C (98.2 F) 07/22/2018 4:39 PM CDT Respiratory Rate - - Oxygen Saturation 96% 07/22/2018 4:39 PM CDT Inhaled Oxygen - - Concentration Weight 64.9 kg (143 lb) 07/19/2018 1:00 PM CDT Height 165.1 cm (5' 5") 07/19/2018 1:00 PM CDT Body Mass Index 23.8 07/19/2018 1:00 PM CDT in this encounter Functional Status [...] No 07/22/2018 as of this encounter Discharge Summaries * Nba Romero MD - 07/22/2018 3:35 PM CDT Formatting of this note may be different from the original. Physician Discharge Summary Name: Chelsea Castillo Date Of : 1960 Age: 58 years Admit date: 07/19/2018 Discharge date: 07/22/2018 Attending Physician: Dr. Leias Chamberlain Service: Med 2070 Physician Summary completed by: NBA ROMERO MD Reason for hospitalization: Abdominal Pain Significant PMH: Past Medical History: Diagnosis Date Arthritis Diabetes mellitus type 1 (HCC) Osteoporosis Stomach problems Thyroid disorder Allergies: Sulfa (sulfonamide antibiotics) Admission Physical Exam notable for: Epigastric tenderness, hypotension (59-67/ 36-38) Admission Lab/Radiology studies notable for: > Abdominal Ct Scan: bilaterally axillary lymphadenopathy and tiny, non- calcified right middle lobe nodule > Significant Iron Deficiency on Iron Panel; Hemoglobin 8.6, MCV 79.0, RDW 16.9 > Normal ESR, CRP > Hemoglobin A1C 11.4 > Random and AM Cortisol Low; subsequent Cortisol Stem Testing Normal Brief Hospital Course: The patient was admitted and the following issues were addressed during this hospitalization: (with pertinent details). Mrs. Chelsea Castillo is a 58 year old female with a significant past medical history of gastritis of unclear etiology, hypothyroidism s/p thyroidectomy, T2DM, migraine headaches, depression, anxiety, and arthritis of unknown etiology who was admitted the morning of July 19 after having significant epigastric abdominal pain associated with nausea and vomiting the previous evening. On arrival to the emergency department Mrs. Castillo was found to be afebrile but significantly hypotensive, for which she received 2 liters of IV fluids. At presentation she also was experiencing significant headache and abdominal pain, for which she was given Ketamine in the ED. A Ct Abdomen/Chest revealed bilateral axillary lymphadenopathy and tiny, non-calcified right middle lobe nodule. Of note, she was previously seen in GI clinic on 07/18 in the morning for her 3-5 year history of cyclic vomiting and abdominal pain. She returned home to [place], [place] then evening of 07/18, experienced the abdominal pain with nausea and vomiting, and returned back to [place]. She was admitted to Internal Medicine inpatient where her treatment for abdominal pain and headache was continued. On admission she was found to have significant polypharmacy that may be contributing to her significant abdominal pain. She was continued on PPI and Carafate, and she was given multiple GI cocktails for her abdominal pain. She was started on Benefiber and Miralax per GI outpatient Recommendations as well. Her diet was slowly advanced from clear liquids to a diabetic soft diet as she tolerated. On discharge, she was tolerating solid foods without difficulty. She is scheduled to follow up with GI outpatient in one month. Also while inpatient, her headaches were treated with IV Magnesium with relative success. She was given compazine, benadryl, and magnesium multiple times for her periodic headaches. She is being discharged on oral magnesium to be taken daily for her headaches. Along with headaches, Mrs. Issa Castillo elaborated how she was diagnosed with Absence seizures one year prior to admission, but neevr received an EEG for diagnosis. She was started on Tegretol and Ativan for seizures by her local primary care physician. While inpatient her Tegretol was continued, and her Ativan dose was tapered down. Psychiatry was consulted while inpatient, and recommendation of continuing her INVENTORY ADMINISTRATOR Cymbalta and Xanax for her depression and anxiety was done. She also is being scheduled follow up appointments with Neurology and Psychiatry to continue to address these issues after hospitalization. Additionaly, Mrs. Castillo was found to be taking hydroxychloroquine for an unknown type of arthritis. Hydroxycholorquine was continued, and she is being scheduled follow up with Rheumatology at outpatient for further workup. Her hemoglobin A1C during hospitalization was found to be 11.4%. She was treated with long and short acting insulin with meals with correction factor while inpatient, and is being discharged on her continued INVENTORY ADMINISTRATOR Treseba, along with Aspart 6-6-10 with meals and medium dose correction factor. In Summary, Mrs. Issa Castillo has a very complex medical situation that will require follow-up from multiple specialist in order to assure she is being treated optimally. She is being scheduled follow up appointments with Neurology , Psychiatry, Rheumatology, GI, and is being scheduled follow up with Internal Medicine for coordination of care at . She will need follow up of her care for problems listed above, along with follow up of her significant lymphadenopathy and lung calcification for on examination and possible re- imaging in the future to assess for resolution/progression. She was provided the Internal Medicine outpatient phone number for scheduling of a follow up appointment for her hospitalization. Notable discharge medications that were added were: GI Cocktail as needed for abdominal pain, Magnesium for headaches, discontinuation of multiple medications including Ativan and adderall. She is being discharged home on 9.3 after finishing lunch without difficulty. Condition at Discharge: Stable Discharge Diagnoses: Abdominal Pain Hospital Problems Active Problems Abdominal pain Surgical Procedures: None Significant Diagnostic Studies and Procedures: noted in brief hospital course Consults: Psychiatry Patient Disposition: Home Patient instructions/medications: AMB REFERRAL TO RHEUMATOLOGY Referral Priority: Routine Referral Type: Consult, Test & Treat Referral Reason: Specialty Services Required Requested Specialty: Rheumatology Number of Visits Requested: 1 Expiration Date: 07/21/19 Other Diet Add 20 grams of Benefiber to your diet nightly. You can purchase this over the counter. If you have questions about your diet after you go home, you can call a dietitian at [phone]. Activity as Tolerated It is important to keep increasing your activity level after you leave the hospital. Moving around can help prevent blood clots, lung infection (pneumonia ) and other problems. Gradually increasing the number of times you are up moving around will help you return to your normal activity level more quickly. Continue to increase the number of times you are up to the chair and walking daily to return to your normal activity level. Begin to work toward your normal activity level at discharge. Diabetes Information Diabetes is managed by checking your blood sugar, taking your medicine, exercising and eating healthy. Target blood sugar range is 80 - 140 mg/dL Check blood sugars before meals and at bedtime Treatment of low blood sugars: If your blood sugar is low, you may feel shaky, weak, sweaty, hungry, confused, or have a headache. Check your blood sugar with a glucose meter. If it is below 70 treat with one of the following: juice (4 oz. ) or regular soda (4 oz.) or 4-5 hard candies. Recheck your blood sugar in 15 minutes and repeat this until level is above 70. Follow up with your doctor and inform them of any changes to your diabetes plan of care. *Talk with your doctor before stopping any medication or if you need refills on supplies or medications. *Eat three meals each day at regularly scheduled intervals (about 4-5 hours apart). It helps to control your blood sugar. Each meal should have equal amounts of carbohydrates. *Check your feet every day for blisters, cuts, and redness. Call your doctor if you have an infection, wound or cut anywhere on your feet. *Get a dilated eye exam each year. *Wear a medic alert ID if you are on insulin. *In an emergency contact your healthcare provider or go to the emergency room. A free class is available for diabetes education. The class is held in the [facility] on the 5th floor of the Medical Office Building, every Sunday from 10:00-12:00 noon and every Sunday 3:00 pm - 5:00 pm. The class is not held on actual or observed holidays. You do not need an appointment for this and we will not bill your insurance. More diabetes education and individual nutrition appointments are offered at the [facility]. Most insurance plans cover these services if you have a referral from your doctor. Call [phone], option 3 or go to [email or web address] for details. Report These Signs and Symptoms Please contact your doctor if you have any of the following symptoms: temperature higher than 100 degrees F, uncontrolled pain, persistent nausea and/ or vomiting, difficulty breathing, chest pain, severe abdominal pain, unable to urinate or unable to have bowel movement. Questions About Your Stay For questions or concerns regarding your hospital stay. Call [phone] Discharging attending physician: LEISA CHAMBERLAIN [[id number]] Diabetic Diet You should eat between 1600 and 2000 calories per day. This is equal to 60g ( grams) of carbohydrates per meal, and 30g of carbohydrates for a bedtime snack. If you have questions about your diet after you go home, you can call a dietitian at [phone]. Current Discharge Medication List START taking these medications Details acetaminophen/lidocaine/antacid DS(#) (GI COCKTAIL) 1:1:3 Take 30 mL by mouth three times daily as needed. Qty: 300 mL, Refills: 0 PRESCRIPTION TYPE: Fax This prescription was faxed to the pharmacy Pharmacy: [facility], [address] ( #: [phone]) coenzyme Q10(+) 100 mg cap Take one capsule by mouth twice daily. Qty: 60 capsule, Refills: 1 PRESCRIPTION TYPE: Normal ferrous gluconate (FERGON) 240 mg (27 mg iron) tablet Take one tablet by mouth daily. Qty: 30 tablet, Refills: 1 PRESCRIPTION TYPE: Normal levocarnitine(+) (LEVOCARNITINE(+)) 500 mg tablet Take four tablets by mouth twice daily. Qty: 240 tablet, Refills: 1 PRESCRIPTION TYPE: Normal magnesium oxide (MAG-OX) 400 mg tablet Take one tablet by mouth daily. Qty: 180 tablet, Refills: 3 PRESCRIPTION TYPE: Normal polyethylene glycol 3350 (MIRALAX) 17 g packet Take one packet by mouth daily. Qty: 30 each, Refills: 1 PRESCRIPTION TYPE: Normal vitamins, B complex tab Take one tablet by mouth daily. Qty: 30 tablet, Refills: 1 PRESCRIPTION TYPE: Normal CONTINUE these medications which have been CHANGED or REFILLED Details duloxetine DR (CYMBALTA) 30 mg capsule Take three capsules by mouth daily. Qty: 30 capsule, Refills: 1 PRESCRIPTION TYPE: Normal insulin lispro(+) (HUMALOG KWIKPEN INSULIN) 100 unit/mL injection PEN Inject 6 units subcutaneously with breakfast and lunch, and 10 units with dinner. Qty: 45 mL, Refills: 0 PRESCRIPTION TYPE: No Print CONTINUE these medications which have NOT CHANGED Details ALPRAZolam (XANAX) 1 mg tablet Take 1 mg by mouth at bedtime as needed for Anxiety. PRESCRIPTION TYPE: Historical Med atorvastatin (LIPITOR) 40 mg tablet Take 40 mg by mouth daily. PRESCRIPTION TYPE: Historical Med carBAMazepine (TEGRETOL) 200 mg tablet Take 400 mg by mouth daily. PRESCRIPTION TYPE: Historical Med cetirizine (ZYRTEC) 10 mg tablet Take 10 mg by mouth every morning. PRESCRIPTION TYPE: Historical Med cholecalciferol(+) (VITAMIN D-3) 5,000 unit tablet Take 5,000 Units by mouth daily. PRESCRIPTION TYPE: Historical Med clobetasol (TEMOVATE) 0.05 % topical solution Apply topically to affected area twice daily. PRESCRIPTION TYPE: Historical Med diclofenac(+) (VOLTAREN) 1 % topical gel Apply 4 g topically to affected area four times daily as needed. PRESCRIPTION TYPE: Historical Med estrogens, conjugated(+) (PREMARIN) 0.625 mg/g vaginal cream Insert or Apply 0.5 g to vaginal area daily. PRESCRIPTION TYPE: Historical Med fesoterodine ER(+) (TOVIAZ) 4 mg tablet Take 4 mg by mouth daily. PRESCRIPTION TYPE: Historical Med fludrocortisone (FLORINEF) 0.1 mg tablet Take 0.1 mg by mouth daily. PRESCRIPTION TYPE: Historical Med fluticasone (FLONASE) 50 mcg/actuation nasal spray Apply to each nostril as directed daily. Shake bottle gently before using. PRESCRIPTION TYPE: Historical Med glucagon,human recombinant (GLUCAGEN DIAGNOSTIC KIT IJ) Inject 1 Units to area(s ) as directed as Needed. PRESCRIPTION TYPE: Historical Med hydroxychloroquine (PLAQUENIL) 200 mg tablet Take 200 mg by mouth daily. Take with food. PRESCRIPTION TYPE: Historical Med insulin degludec (TRESEBA SOLOSTAR) 100 unit/mL (3 mL) injection pen Inject 17 Units under the skin at bedtime daily. PRESCRIPTION TYPE: Historical Med levothyroxine (SYNTHROID) 175 mcg tablet Take 175 mcg by mouth daily 30 minutes before breakfast. PRESCRIPTION TYPE: Historical Med lidocaine/prilocaine (EMLA) 2.5/2.5 % topical cream Apply topically to affected area as Needed. PRESCRIPTION TYPE: Historical Med LORazepam (ATIVAN) 1 mg tablet Take 1 mg by mouth every 4 hours as needed for Nausea, Vomiting or Other.... PRESCRIPTION TYPE: Historical Med montelukast (SINGULAIR) 10 mg tablet Take 10 mg by mouth at bedtime daily. PRESCRIPTION TYPE: Historical Med multivitamin with minerals (HAIR,SKIN AND NAILS PO) Take by mouth. PRESCRIPTION TYPE: Historical Med nystatin (NYSTOP) 100,000 unit/g topical powder Apply topically to affected area four times daily. PRESCRIPTION TYPE: Historical Med ondansetron (ZOFRAN ODT) 4 mg rapid dissolve tablet Dissolve one tablet by mouth every [address] on tongue to disolve. Qty: 90 tablet, Refills: 0 PRESCRIPTION TYPE: Normal pantoprazole DR (PROTONIX) 40 mg tablet Take 40 mg by mouth daily. PRESCRIPTION TYPE: Historical Med pentosan polysulfate sodium (ELMIRON) 100 mg capsule Take 100 mg by mouth three times daily before meals. PRESCRIPTION TYPE: Historical Med potassium chloride SR (K-DUR) 10 mEq tablet Take 10 mEq by mouth daily. Take with a meal and a full glass of water. PRESCRIPTION TYPE: Historical Med pregabalin (LYRICA) 150 mg capsule Take 150 mg by mouth twice daily. PRESCRIPTION TYPE: Historical Med promethazine (PHENERGAN) 12.5 mg rectal suppository Insert or Apply one suppository to rectal area as directed every 8 hours as needed for Nausea. Qty: 30 each, Refills: 0 PRESCRIPTION TYPE: Normal rizatriptan (MAXALT) 10 mg tablet Take 10 mg by mouth once as needed for Headache. May repeat in 2 hours if needed PRESCRIPTION TYPE: Historical Med sucralfate (CARAFATE) 1 gram tablet Take 1 g by mouth three times daily before meals. Take on an empty stomach. PRESCRIPTION TYPE: Historical Med tiZANidine (ZANAFLEX) 4 mg tablet Take 4 mg by mouth every 6 hours as needed. PRESCRIPTION TYPE: Historical Med zolpidem (AMBIEN) 10 mg tablet Take 10 mg by mouth at bedtime as needed for Sleep. PRESCRIPTION TYPE: Historical Med The following medications were removed from your list. This list includes medications discontinued this stay and those removed from your prior med list in our system amphetamine-dextroamphetamine XR (ADDERALL XR) 20 mg capsule estrogens, conjugated (PREMARIN) 0.625 mg tablet HYDROcodone/acetaminophen(+) (NORCO) 10/325 mg tablet nortriptyline (PAMELOR) 25 mg capsule Scheduled appointments: Referrals placed to establish with primary care, Neurology, Rheumatology, and Psychiatry. Please follow up with GI in 1 month. Please call Internal Medicine to schedule a follow up appointment - If you have any questions, please feel free to call at [phone] and you will directed to the area you need. We look forward to hearing from you and continuing to provide care in the future. Pending items needing follow up: Follow up of lymphadenopathy and lung calcification on admission CT Scan. Signed: NBA ROMERO MD 07/22/2018 cc: Primary Care Physician: Rubio Meza III Verified Referring physicians: No ref. provider found Additional provider(s): in this encounter Discharge Instructions * Discharge Instr - Appointments - Nba Romero MD - 07/21/2018 9:16 PM CDT Referrals placed to establish with primary care, Neurology, Rheumatology, and Psychiatry. Please follow up with GI in 1 month. Please call Internal Medicine to schedule a follow up appointment - [phone] If you have any questions, please feel free to call at [phone] and you will directed to the area you need. We look forward to hearing from you and continuing to provide care in the future. in this encounter Medications at Time of [...] needed for Sleep. as of this encounter Progress Notes * Olga Cano RN - 07/22/2018 6:07 PM CDT AVS addressed, IV removed, port deaccessed. Pt to be wheeled down with . All questions answered. Pt feeling better and okay to DC with . Chelsea Castillo discharged on 07/22/2018. Equipment Removed: Telepack. Discharge instructions reviewed with patient and family. Valuables returned: Personal Items / Valuables: (Pt DCed with all belongings). Home medications: . Functional assessment at discharge complete: Yes * Leisa Chamberlain MD - 07/22/2018 12:19 PM CDT Formatting of this note may be different from the original. General Progress Note Name: Chelsea Castillo Today's Date: 07/22/2018 Admission Date: 07/19/2018 LOS: 3 days Assessment/Plan: Active Problems: Abdominal pain Chelsea Castillo is a 58 y.o. female with PMHX of diabetes, anxiety, depression, hypothyroidism, migraine headaches, gastritis, cholecystectomy, thyroidectomy presenting with abdominal pain. Chronic Abdominal Pain Chronic N/V - Chronic for the past 3-5 years - Extensive evaluation in the past as outlined in GI clinic note from 07/18 - CT abd/pelvis in ED: No abdominopelvic inflammatory mass, ascites, or bowel obstruction. Normal appendix. - Leading ddx cyclic vomiting vs abdominal migraines vs diabetic gastroparesis vs pancreatic etiology vs other - AM Cortisol low; Cortisol Stem Test WNL Plan: - Start CoQ10, L carnitine, and B complex per Gi at discharge - not on formulary inpatient - Advancing Diet as tolerated - now on diabetic diet - Benefiber and Miralax for constipation - Anti emetics - Check IgE given peripheral eosinophilia. However, EOE has been ruled out in the past - Hold narcotics - May benefit from TCA but on too many other psychotropic medications at this time - Outpatient GI follow up in 1 month - Continue PPI and Carafate Migraines - Headacle cocktail if required Plan: - Schedule follow up with outpatient Neurology and Psychiatry upon discharge Iron Deficiency Anemia - IV Iron Sucrose at this time Arthritis, unknown etiology - pt reports diffuse joint pains and ?hx RA--no joint swelling on exam today but alopecia present - On HCQ Plan: - Check rheumatologic panel - Schedule Rheum outpatient follow up upon discharge Hypothyroidism - Continue Synthroid DM - A1c 11% - INVENTORY ADMINISTRATOR Treseba 17U and Aspart 6-6-10, MD[facility] Plan: - Lyrica for neuropathy - Insulin as noted above History of Seizures - Unclear how diagnosis was established; patient reports being told she has Absence seizures - INVENTORY ADMINISTRATOR Tegretol - Also reports taking Ativan 2mg BID for seizures??? (but prescribed as Ativan 1mg q4h PRN for nausea and prescribed by PCP) - No history of EEG per patient Plan: - Continue Tegretol - Decrease Ativan to 1mg BID PRN so as not to withdrawal - Will schedule neuro follow up outpatient Depression and Anxiety - Uncontrolled - INVENTORY ADMINISTRATOR Cymbalta and Xanax Plan: - Continue medications per psych recommendations Orthostatic Hypotension - Continue Florinef Plan: - Establish care with Outpatient Internal medicine at for continued care Allergies - Continue Zyrtec and Singulair Estrogen Replacement - On topical and tablet. Would like to continue topical only on discharge. - Discussed w/ FOURDRINIER MACHINE OPERATOR - OK to discontinue oral estrogen w/o taper Plan: - Discontinue oral estrogen - Continue topical estrogen for atrophic vaginitis FEN: No IVFs, monitor lytes, Full liquid diet and advancing PPX: Lovenox Code: Full Dispo: Patient continues admission for work-up of abdominal pain along with establishment of follow up at > Due to complexity of patients underlying conditions, patient will need follow up with numerous outpatient specialist at including: GI, Neurology, Psychiatry, Internal Medicine Nba Romero PGY-1 Patient has been seen and discussed with Dr. Chamberlain ATTESTATION I personally performed the ortega portions of the E/M visit, discussed case with the resident and I concur with their documentation of history, physical exam, assessment, and treatment plan unless otherwise noted below. I spent the below noted time providing and personally directing care that included: systems and physical examination, review of laboratory data, review of imaging studies, review of medications, fluid and electrolyte management, hemodynamic monitoring , optimization of blood pressure, and coordination of care with consulting services. Dc to home today if pt tolerates lunch. Total time 35min Leisa Chamberlain MD Date: 07/22/2018 Internal Medicine, Hospitalist [phone] Subjective Chelsea Castillo is a 58 y.o. female. Mrs. Castillo is doing well this morning and has not experienced any abdominal pain, nausea, vomiting over the last 24 hours. She feels as if her abdominal pain is improving, and was in agreement to advance her diet today to see how she tolerates it. We are scheduling her follow up at with numerous specialist for her continued medical care. ROS: Negative for chest pain, SOB, constipation,nausea, and vomiting Medications Scheduled Meds: amphetamine-dextroamphetamine XR (ADDERALL XR) capsule 40 mg 40 mg Oral QAM8 atorvastatin (LIPITOR) tablet 40 mg 40 mg Oral QDAY carBAMazepine (TEGRETOL) tablet 400 mg 400 mg Oral QDAY cetirizine (ZYRTEC) tablet 10 mg 10 mg Oral QAM8 cholecalciferol (VITAMIN D-3) tablet 5,000 Units 5,000 Units Oral QDAY duloxetine DR (CYMBALTA) capsule 90 mg 90 mg Oral QDAY enoxaparin (LOVENOX) syringe 40 mg 40 mg Subcutaneous QDAY(21) fludrocortisone (FLORINEF) tablet 0.1 mg 0.1 mg Oral QDAY hydroxychloroquine (PLAQUENIL) tablet 200 mg 200 mg Oral QDAY insulin aspart U-100 (NOVOLOG FLEXPEN) injection PEN 0-14 Units 0-14 Units Subcutaneous ACHS insulin aspart U-100 (NOVOLOG FLEXPEN) injection PEN 10 Units 10 Units Subcutaneous QDAY w/dinner insulin aspart U-100 (NOVOLOG FLEXPEN) injection PEN 6 Units 6 Units Subcutaneous BID w/meals insulin glargine (LANTUS SOLOSTAR, BASAGLAR) injection PEN 15 Units 15 Units Subcutaneous QHS iron sucrose (VENOFER) 300 mg in sodium chloride 0.9% (NS) IVPB 300 mg Intravenous QDAY levothyroxine (SYNTHROID) tablet 175 mcg 175 mcg Oral QDAY 30 min before breakfast montelukast (SINGULAIR) tablet 10 mg 10 mg Oral QHS oxybutynin XL (DITROPAN XL) tablet 5 mg 5 mg Oral QDAY pantoprazole DR (PROTONIX) tablet 40 mg 40 mg Oral QDAY pregabalin (LYRICA) capsule 150 mg 150 mg Oral BID sucralfate (CARAFATE) tablet 1 g 1 g Oral Q6H vitamins, B complex tablet 1 tablet 1 tablet Oral QDAY Continuous Infusions: PRN and Respiratory Meds:diphenhydrAMINE Q4H PRN, EPINEPHrine PF Q10 MIN PRN, LORazepam BID PRN, melatonin QHS PRN, ondansetron Q4H PRN, polyethylene glycol 3350 QDAY PRN, prochlorperazine Q6H PRN, tiZANidine QHS PRN Objective: Vital Signs: Last Filed Vital Signs: 24 Hour Range BP: 119/58 (07/22 1046) Temp: 36.8 C (98.2 F) (07/22 1046) Pulse: 78 (07/22 1046) Respirations: 16 PER MINUTE (07/22 1046) SpO2: 100 % (07/22 1046) O2 Delivery: None (Room Air) (07/22 1046) BP: (105-137)/(58-80) Temp: [36.7 C (98 F)-36.9 C (98.5 F)] Pulse: [76-89] Respirations: [16 PER MINUTE-18 PER MINUTE] SpO2: [94 %-100 %] O2 Delivery: None (Room Air) Intensity Pain Scale 0-10 (Pain 1): 5 (07/22/18 0951) Vitals: 07/19/18 0112 07/19/18 1300 Weight: 64.9 kg (143 lb) 64.9 kg (143 lb) Intake/Output Summary: (Last 24 hours) Intake/Output Summary (Last 24 hours) at 07/22/18 1219 Last data filed at 07/22/18 0951 Gross per 24 hour Intake 1865 ml Output 0 ml Net 1865 ml Physical Exam General: Alert and oriented today Head: Normocephalic, without obvious abnormality, atraumatic Eyes: Conjunctivae/corneas clear. Neck: Supple, Lungs: Clear to auscultation bilaterally Heart: Regular rate and rhythm, S1, S2 normal, Abdomen: Soft, no tenderness in abdomen throughout Extremities: Extremities normal, atraumatic, no cyanosis or edema Peripheral pulses: 2+ and symmetric, all extremities Skin: Skin color, texture, turgor normal. No rashes or lesions Neurologic: Alert and oriented, non focal Lab Review 24-hour labs: Results for orders placed or performed during the hospital encounter of (from the past 24 hour(s)) POC GLUCOSE Collection Time: 07/21/18 1:22 PM Result Value Ref Range Glucose, POC 239 (H) 70 - 100 MG/DL POC GLUCOSE Collection Time: 07/21/18 6:45 PM Result Value Ref Range Glucose, POC 129 (H) 70 - 100 MG/DL POC GLUCOSE Collection Time: 07/21/18 8:20 PM Result Value Ref Range Glucose, POC 350 (H) 70 - 100 MG/DL COMPREHENSIVE METABOLIC PANEL Collection Time: 07/22/18 4:32 AM Result Value Ref Range Sodium 141 137 - 147 MMOL/L Potassium 3.6 3.5 - 5.1 MMOL/L Chloride 106 98 - 110 MMOL/L Glucose 136 (H) 70 - 100 MG/DL Blood Urea Nitrogen 5 (L) 7 - 25 MG/DL Creatinine 0.96 0.4 - 1.00 MG/DL Calcium 8.5 8.5 - 10.6 MG/DL Total Protein 5.3 (L) 6.0 - 8.0 G/DL Total Bilirubin 0.2 (L) 0.3 - 1.2 MG/DL Albumin 3.2 (L) 3.5 - 5.0 G/DL Alk Phosphatase 64 25 - 110 U/L AST (SGOT) 17 7 - 40 U/L CO2 29 21 - 30 MMOL/L ALT (SGPT) 11 7 - 56 U/L Anion Gap 6 3 - 12 eGFR Non >60 >60 mL/min eGFR >60 >60 mL/min CBC AND DIFF Collection Time: 07/22/18 4:32 AM Result Value Ref Range White Blood Cells 8.2 4.5 - 11.0 K/UL RBC 3.27 (L) 4.0 - 5.0 M/UL Hemoglobin 8.6 (L) 12.0 - 15.0 GM/DL Hematocrit 25.7 (L) 36 - 45 % MCV 78.5 (L) 80 - 100 FL MCH 26.1 26 - 34 PG MCHC 33.3 32.0 - 36.0 G/DL RDW 16.3 (H) 11 - 15 % Platelet Count 174 150 - 400 K/UL MPV 8.9 7 - 11 FL Neutrophils 32 (L) 41 - 77 % Lymphocytes 48 (H) 24 - 44 % Monocytes 6 4 - 12 % Eosinophils 13 (H) 0 - 5 % Basophils 1 0 - 2 % Absolute Neutrophil Count 2.60 1.8 - 7.0 K/UL Absolute Lymph Count 3.90 1.0 - 4.8 K/UL Absolute Monocyte Count 0.50 0 - 0.80 K/UL Absolute Eosinophil Count 1.10 (H) 0 - 0.45 K/UL Absolute Basophil Count 0.10 0 - 0.20 K/UL POC GLUCOSE Collection Time: 07/22/18 8:55 AM Result Value Ref Range Glucose, POC 103 (H) 70 - 100 MG/DL Point of Care Testing (Last 24 hours) Glucose: (!) 136 (07/22/18 0432) POC Glucose (Download): (!) 103 (07/22/18 0869) Radiology and other Diagnostics Review: No pertinent radiology. Nba Romero MD PGY-1 * Olga Cano, RN - 07/22/2018 9:06 AM CDT Pt requesting to eat this AM. No abd pain/nausea. RN spoke with [facility], received verbal order for ADA diet. RN changed order at this time. 0955: Pt reporting 5/10 abd pain, requesting GI cocktail, RN paged team 1300: Pt reporting migraine, RN paged [facility] for new order for IV magnesium. 1320: Order for IV magnesium placed, per team okay with RN giving IV compazine and IV benadryl for headache with IV mag. 1644: Pt reporting feeling nauseous and anxious. VSS. Pt looks more lethargic to RN and pts . RN updated Dr Holguin, she will see pt shortly. RN to give zofran, hold ativan. 1730: Dr Holguin to see pt, holding ativan, okay to DC. * Gilbert Borges, PT - 07/21/2018 9:40 AM CDT PHYSICAL THERAPY ASSESSMENT MOBILITY: Mobility Progressive Mobility Level: Walk in hallway Distance Walked (feet): 100 ft Level of Assistance: Assist X1 Assistive Device: Hand Held Time Tolerated: 0-10 minutes Activity Limited By: Pain;Fatigue SUBJECTIVE: Subjective Significant hospital events: 58 y/o F with hx diabetes, anxiety, depression, hypothyroidism, gastritis, cholecystectomy; presents with abdominal pain, ddx cyclic vomiting vs abdominal migraines vs diabetic gastroparesis vs pancreatic etiology Mental / Cognitive Status: Oriented;Lethargic;Cooperative;Follows Commands Pain: Patient complains of pain;Patient does not rate pain;Before activity; During activity Pain Location: Back;Abdomen Pain Interventions: Patient agrees to participate in therapy with modifications to session;Treatment altered to patient's pain tolerance;Patient assisted into position of comfort Comments: Pt responsive to questions of subjective history, however appears to have some memory issues (slow to answer, difficulty recalling what her did for work) Ambulation Assist: Independent Mobility at Household Level without Device Patient Owned Equipment: Roller Walker;Single Point Cane Home Situation: Lives with Family Type of Home: House Entry Stairs: 1-2 Stairs In-Home Stairs: Able to Live on One Level;1-2 Flights of Stairs (stairs to basement for laundry, can stay on one level) Comments: Pt lives at home with . Pt reports that a friend comes to the home to assist with laundry and other home care tasks. Pt reports that she was independent with ADLs and mobillity without assistive device, although she has used a roller walker in the past following hospital stays due to deconditioning. Pt reports that she has had "a couple" falls in the last 3 months. STRENGTH: Strength Overall Strength: Generalized Weakness POSTURE/NEURO: Posture / Neurological Posture: Rounded Shoulders BED MOBILITY/TRANSFERS: Bed Mobility/Transfers Bed Mobility: Supine to Sit: Modified Independent;Head of Bed Elevated Bed Mobility: Sit to Supine: Independent Transfer Type: Sit to/from Stand Transfer: Assistance Level: To/From;Bed;Standby Assist Transfer: Assistive Device: None Transfers: Type Of Assistance: For Safety Considerations End Of Activity Status: In Bed;Nursing Notified;Instructed Patient to Request Assist with Mobility;Instructed Patient to Use Call Light (Bed alarm activated) BALANCE: Balance Sitting Balance: Static Sitting Balance;Dynamic Sitting Balance;No UE Support; Independent Standing Balance: Static Standing Balance;No UE support;Standby Assist;Dynamic Standing Balance;1 UE support;Minimal Assist GAIT: Gait Gait Distance: 100 feet Gait: Assistance Level: Minimal Assist (nearing standby assist) Gait: Assistive Device: Hand Hold Assist Gait: Descriptors: Pace: Slow;Decreased heel strike RLE;Decreased heel strike LLE;No balance loss;Swing-Through Gait;Decreased step length Comments: Small step length. Verbal cues to increase step length and maintain wide base of support. Activity Limited By: Complaint of Pain;Complaint of Fatigue EDUCATION: Education Persons Educated: Patient Patient Barriers To Learning: None Noted Teaching Methods: Verbal Instruction Patient Response: Verbalized Understanding Topics: Up with Assist Only;Importance of Increasing Activity;Ambulate With Nursing;Recommend Continued Therapy;Mobility Progression ASSESSMENT/PROGRESS: Assessment/Progress Impaired Mobility Due To: Deconditioning;Decreased Activity Tolerance;Pain Impaired Strength Due To: Deconditioning;Decreased Activity Tolerance Assessment/Progress: Should Improve w/ Continued PT AM-PAC 6 Clicks Basic Mobility Inpatient Turning from your back to your side while in a flat bed without using bed rails : None Moving from lying on your back to sitting on the side of a flatbed without using bedrails : None Moving to and from a bed to a chair (including a wheelchair): A Little Standing up from a chair using your arms (e.g. wheelchair, or bedside chair): A Little To walk in hospital room: A Little Climbing 3-5 steps with a railing: A Lot Raw Score: 19 Standardized (T-scale) Score: 42.48 Basic Mobility CMS 0-100%: 36.99 [facility] G Code Modifier for Basic Mobility: CJ G-Codes: Mobility G8978 Current Status: 20-39% Impairment G8979 Goal Status: 1-19% Impairment Based on above evaluation and clinical judgment. GOALS: Goals Pt Will Go Supine To/From Sit: Independently Pt Will Transfer Bed/Chair: w/ Stand By Assist Pt Will Ambulate: Greater than 200 Feet, Independently PLAN: Plan Treatment Interventions: Mobility Training;Endurance Training Plan Frequency: 3-5 Days per Week PT Plan for Next Visit: Progress ambulation distance and increase independence with gait, anticipate pt will progress without need for assistive device RECOMMENDATIONS: PT Discharge Recommendations PT Discharge Recommendations: Home with Assistance Equipment Recommendations: Patient owns necessary equipment Recommend ongoing assistance for: In and out of house;Stairs;Safety concerns; Bathing Therapist: Gilbert Borges PT, DPT Date: 07/21/2018 * Leisa Chamberlain MD - 07/21/2018 6:32 AM CDT Formatting of this note may be different from the original. General Progress Note Name: Chelsea Castillo Today's Date: 07/21/2018 Admission Date: 07/19/2018 LOS: 2 days Assessment/Plan: Active Problems: Abdominal pain Chelsea Castillo is a 58 y.o. female with PMHX of diabetes, anxiety, depression, hypothyroidism, migraine headaches, gastritis, cholecystectomy, thyroidectomy presenting with abdominal pain. Chronic Abdominal Pain Chronic N/V - Chronic for the past 3-5 years - Extensive evaluation in the past as outlined in GI clinic note from 07/18 - CT abd/pelvis in ED: No abdominopelvic inflammatory mass, ascites, or bowel obstruction. Normal appendix. - Leading ddx cyclic vomiting vs abdominal migraines vs diabetic gastroparesis vs pancreatic etiology vs other - AM Cortisol low; Cortisol Stem Test WNL Plan: - Start CoQ10, L carnitine, and B complex per Gi at discharge - not on formulary inpatient - Benefiber and Miralax for constipation - Anti emetics - Check IgE given peripheral eosinophilia. However, EOE has been ruled out in the past - Hold narcotics - May benefit from TCA but on too many other psychotropic medications at this time - Outpatient GI follow up in 1 month - Continue PPI and Carafate -- improving symptoms, advancing diet today Migraines - Headacle cocktail if required Plan: - Schedule follow up with outpatient Neurology and Psychiatry upon discharge Iron Deficiency Anemia - IV Iron Sucrose at this time Arthritis, unknown etiology - pt reports diffuse joint pains and ?hx RA--no joint swelling on exam today but alopecia present - On HCQ Plan: - Check rheumatologic panel - Schedule Rheum outpatient follow up upon discharge Hypothyroidism - Continue Synthroid DM - A1c 11% - INVENTORY ADMINISTRATOR Treseba 17U and Aspart 4-4-10 Plan: - Continue INVENTORY ADMINISTRATOR insulin and add SS. Titrate as needed - Lyrica for neuropathy History of Seizures - Unclear how diagnosis was established; patient reports being told she has Absence seizures - INVENTORY ADMINISTRATOR Tegretol - Also reports taking Ativan 2mg BID for seizures??? (but prescribed as Ativan 1mg q4h PRN for nausea and prescribed by PCP) Plan: - Continue Tegretol - Decrease Ativan to 1mg BID PRN so as not to withdrawal - Will schedule neuro follow up outpatient - no hx EEG per pt or her HB Depression and Anxiety - Uncontrolled - INVENTORY ADMINISTRATOR Cymbalta and Xanax Plan: - Continue medications per psych recommendations Orthostatic Hypotension - Continue Florinef Plan: - Establish care with Outpatient Internal medicine at for continued care Allergies - Continue Zyrtec and Singulair Estrogen Replacement - On topical and tablet. Would like to continue topical only on discharge. Discuss with FOURDRINIER MACHINE OPERATOR if need to taper oral estrogen. Plan: - Will contact FOURDRINIER MACHINE OPERATOR about possible need to taper oral estrogen? FEN: No IVFs, monitor lytes, Full liquid diet and advancing PPX: Lovenox Code: Full Dispo: Patient continues admission for work-up of abdominal pain along with establishment of follow up at > Due to complexity of patients underlying conditions, patient will need follow up with numerous outpatient specialist at including: GI, Neurology, Psychiatry, Internal Medicine Nba Romero PGY-1 Patient has been seen and discussed with Dr. Chamberlain ATTESTATION I personally performed the ortega portions of the E/M visit, discussed case with the resident and I concur with their documentation of history, physical exam, assessment, and treatment plan unless otherwise noted below. I spent the below noted time providing and personally directing care that included: systems and physical examination, review of laboratory data, review of imaging studies, review of medications, fluid and electrolyte management, hemodynamic monitoring , optimization of blood pressure, and coordination of care with consulting services. Leisa Chamberlain MD Date: 07/21/2018 Internal Medicine, Hospitalist [phone] Subjective Chelsea Castillo is a 58 y.o. female. Mrs. Castillo appears to be feeling better this morning after having a difficult night where she had an episode of vomiting and abdominal pain. She is not having abdominal pain while we visited in the morning. The team discussed with her the complicated medicine regimen she is on for her numerous medical conditions may be playing a roll in her Gi discomfort and continued pain. In order to find a better medical regime for these issues, we suggested that she follow up with specialist here at to determine what the appropriate medications may be. She agreed with this recommendation. ROS: Negative for chest pain, SOB, constipation,nausea currently; + vomiting overnight Medications Scheduled Meds: amphetamine-dextroamphetamine XR (ADDERALL XR) capsule 40 mg 40 mg Oral QAM8 atorvastatin (LIPITOR) tablet 40 mg 40 mg Oral QDAY carBAMazepine (TEGRETOL) tablet 400 mg 400 mg Oral QDAY cetirizine (ZYRTEC) tablet 10 mg 10 mg Oral QAM8 cholecalciferol (VITAMIN D-3) tablet 5,000 Units 5,000 Units Oral QDAY cosyntropin (CORTROSYN) injection 0.25 mg 0.25 mg Intravenous ONCE diphenhydrAMINE (BENADRYL) injection 25 mg 25 mg Intravenous ONCE duloxetine DR (CYMBALTA) capsule 90 mg 90 mg Oral QDAY enoxaparin (LOVENOX) syringe 40 mg 40 mg Subcutaneous QDAY(21) fludrocortisone (FLORINEF) tablet 0.1 mg 0.1 mg Oral QDAY hydroxychloroquine (PLAQUENIL) tablet 200 mg 200 mg Oral QDAY insulin aspart U-100 (NOVOLOG FLEXPEN) injection PEN 0-14 Units 0-14 Units Subcutaneous ACHS insulin aspart U-100 (NOVOLOG FLEXPEN) injection PEN 10 Units 10 Units Subcutaneous QDAY w/dinner insulin aspart U-100 (NOVOLOG FLEXPEN) injection PEN 4 Units 4 Units Subcutaneous BID w/meals insulin glargine (LANTUS SOLOSTAR, BASAGLAR) injection PEN 17 Units 17 Units Subcutaneous QHS iron sucrose (VENOFER) 300 mg in sodium chloride 0.9% (NS) IVPB 300 mg Intravenous QDAY levothyroxine (SYNTHROID) tablet 175 mcg 175 mcg Oral QDAY 30 min before breakfast montelukast (SINGULAIR) tablet 10 mg 10 mg Oral QHS oxybutynin XL (DITROPAN XL) tablet 5 mg 5 [address] Oral QDAY pantop[address]ole DR (PROTONIX) tablet 40 mg 40 mg Oral QDAY pregabalin (LYRICA) capsule 150 mg 150 mg Oral BID sucralfate (CARAFATE) tablet 1 g 1 g Oral Q6H Continuous Infusions: PRN and Respiratory Meds:diphenhydrAMINE Q4H PRN, EPINEPHrine PF Q10 MIN PRN, LORazepam BID PRN, melatonin QHS PRN, ondansetron Q4H PRN, polyethylene glycol 3350 QDAY PRN, prochlorperazine Q6H PRN, tiZANidine QHS PRN Objective: Vital Signs: Last Filed Vital Signs: 24 Hour Range BP: 114/57 (07/21 603) Temp: 36.7 C (98 F) (07/21 603) Pulse: 79 (07/21 603) Respirations: 18 PER MINUTE (07/21 603) SpO2: 95 % (07/21 603) O2 Delivery: None (Room Air) (07/21 603) BP: (86-132)/(51-66) Temp: [36.7 C (98 F)-37.2 C (99 F)] Pulse: [78-88] Respirations: [18 PER MINUTE-19 PER MINUTE] SpO2: [93 %-98 %] O2 Delivery: None (Room Air) Intensity Pain Scale 0-10 (Pain 1): 5 (07/20/18 1625) Vitals: 07/19/18 0112 07/19/18 1300 Weight: 64.9 kg (143 lb) 64.9 kg (143 lb) Intake/Output Summary: (Last 24 hours) Intake/Output Summary (Last 24 hours) at 07/21/18 0632 Last data filed at 07/21/18 0249 Gross per 24 hour Intake 2605 ml Output 2695 ml Net -90 ml Physical Exam General: Alert and oriented, somewhat somnolent on examination Head: Normocephalic, without obvious abnormality, atraumatic Eyes: Conjunctivae/corneas clear. Neck: Supple, Lungs: Clear to auscultation bilaterally Heart: Regular rate and rhythm, S1, S2 normal, Abdomen: Soft, no tenderness in epigastric region today Extremities: Extremities normal, atraumatic, no cyanosis or edema Peripheral pulses: 2+ and symmetric, all extremities Skin: Skin color, texture, turgor normal. No rashes or lesions Neurologic: Alert and oriented, non focal Lab Review 24-hour labs: Results for orders placed or performed during the hospital encounter of (from the past 24 hour(s)) POC GLUCOSE Collection Time: 07/20/18 6:40 AM Result Value Ref Range Glucose, POC 490 (H) 70 - 100 MG/DL POC GLUCOSE Collection Time: 07/20/18 8:15 AM Result Value Ref Range Glucose, POC 464 (H) 70 - 100 MG/DL POC GLUCOSE Collection Time: 07/20/18 11:59 AM Result Value Ref Range Glucose, POC 161 (H) 70 - 100 MG/DL POC GLUCOSE Collection Time: 07/20/18 5:17 PM Result Value Ref Range Glucose, POC 133 (H) 70 - 100 MG/DL POC GLUCOSE Collection Time: 07/20/18 8:28 PM Result Value Ref Range Glucose, POC 323 (H) 70 - 100 MG/DL CBC AND DIFF Collection Time: 07/21/18 5:58 AM Result Value Ref Range White Blood Cells 6.9 4.5 - 11.0 K/UL RBC 3.28 (L) 4.0 - 5.0 M/UL Hemoglobin 8.4 (L) 12.0 - 15.0 GM/DL Hematocrit 26.1 (L) 36 - 45 % MCV 79.4 (L) 80 - 100 FL MCH 25.7 (L) 26 - 34 PG MCHC 32.4 32.0 - 36.0 G/DL RDW 16.5 (H) 11 - 15 % Platelet Count 194 150 - 400 K/UL MPV 9.0 7 - 11 FL Point of Care Testing (Last 24 hours) Glucose: (!) 66 (07/21/18 0558) POC Glucose (Download): (!) 239 (07/21/18 1322) Radiology and other Diagnostics Review: No pertinent radiology. Nba Romero MD PGY-1 * Dinora Woodard, SHAVON - 07/21/2018 12:24 AM CDT At 2311 pt's BP 86/51, HR 80, sat 95 % on RA. Pt denies chest or soa. Dr Stroud notified order 1 L NS bolus. Will recheck BP after bolus is done. Will cont to monitor 0059 :BP after bolus 96/53 HR 78. Pt without any complains. notified no new orders received. Will cont to monitor. * Leisa Chamberlain MD - 07/20/2018 3:51 PM CDT Formatting of this note may be different from the original. General Progress Note Name: Chelsea Castillo Today's Date: 07/20/2018 Admission Date: 07/19/2018 LOS: 1 day Assessment/Plan: Active Problems: Abdominal pain Chelsea Castillo is a 58 y.o. female with PMHX of diabetes, anxiety, depression, hypothyroidism, migraine headaches, gastritis, cholecystectomy, thyroidectomy presenting with abdominal pain. Chronic Abdominal Pain Chronic N/V - Chronic for the past 3-5 years - Extensive evaluation in the past as outlined in GI clinic note from 07/18 - CT abd/pelvis in ED: No abdominopelvic inflammatory mass, ascites, or bowel obstruction. Normal appendix. - Leading ddx cyclic vomiting vs abdominal migraines vs diabetic gastroparesis vs pancreatic etiology vs other Plan: - Start CoQ10, L carnitine, and B complex for cyclic vomiting per outpatient GI - Benefiber and Miralax for constipation - Anti emetics - Stim test to rule out AI given low cortisol - Check IgE given peripheral eosinophilia. However, EOE has been ruled out in the past - Hold narcotics - May benefit from TCA but on too many other psychotropic medications at this time - Outpatient GI follow up in 1 month - Continue PPI and Carafate Migraines - Headacle cocktail ZHAO - IV Venofer for now Arthritis, unknown etiology - pt reports diffuse joint pains and ?hx RA--no joint swelling on exam today but alopecia present - On HCQ - Check rheumatologic panel Hypothyroidism - Continue Synthroid DM - A1c 11% - INVENTORY ADMINISTRATOR Treseba 17U and Aspart 4-4-10 Plan: - Continue INVENTORY ADMINISTRATOR insulin and add SS. Titrate as needed - Lyrica for neuropathy H/o Szs? - INVENTORY ADMINISTRATOR Tegretol - Also reports taking Ativan 2mg BID for seizures??? (but prescribed as Ativan 1mg q4h PRN for nausea and prescribed by PCP) Plan: - Continue Tegretol. Check level - Decrease Ativan to 1mg BID PRN so as not to withdrawal. Likely needs Neuro follow up outpatient to assess regimen and appropriateness of regimen Depression and Anxiety - Uncontrolled - INVENTORY ADMINISTRATOR Cymbalta and Xanax Plan: - Continue Psych Orthostatic Hypotension - Continue Florinef Allergies - Continue Zyrtec and Singulair Estrogen Replacement - On topical and tablet. Would like to continue topical only on discharge. Discuss with FOURDRINIER MACHINE OPERATOR if need to taper oral estrogen. FEN: No IVFs, monitor lytes, CLD PPX: Lovenox Code: Full Dispo: Continue admission to Med 3 Seen and discussed with Dr. Bulmaro Holguin PGY-3 [phone] ATTESTATION I personally performed the ortega portions of the E/M visit, discussed case with the resident and I concur with their documentation of history, physical exam, assessment, and treatment plan unless otherwise noted below. I spent the below noted time providing and personally directing care that included: systems and physical examination, review of laboratory data, review of imaging studies, review of medications, fluid and electrolyte management, hemodynamic monitoring , optimization of blood pressure, and coordination of care with consulting services. Pt continues to require high complexity decision making due to gastroparesis flare, ?seizure disorder, ?rheumatologic disorder, ?adrenal insufficiency, and poorly controlled DM. Plan as above. Leisa Chamberlain MD Date: 07/20/2018 Internal Medicine, Hospitalist [phone] Subjective Chelsea Castillo is a 58 y.o. female. No acute events overnight. Patient continues to have epigastric pain a/w nausea. GI cocktail didn't really help much. Headache is starting up again as well. Tearful and worried that her symptoms won't improve. No F/C. No chest pain or SOB. Reports arthritis and pain in multiple joints. Also reports dysphagia at times. Medications Scheduled Meds: amphetamine-dextroamphetamine XR (ADDERALL XR) capsule 40 mg 40 mg Oral QAM8 atorvastatin (LIPITOR) tablet 40 mg 40 mg Oral QDAY carBAMazepine (TEGRETOL) tablet 400 mg 400 mg Oral QDAY cetirizine (ZYRTEC) tablet 10 mg 10 mg Oral QAM8 cholecalciferol (VITAMIN D-3) tablet 5,000 Units 5,000 Units Oral QDAY [START ON 07/21/2018] cosyntropin (CORTROSYN) injection 0.25 mg 0.25 mg Intravenous ONCE duloxetine DR (CYMBALTA) capsule 60 mg 60 mg Oral QDAY enoxaparin (LOVENOX) syringe 40 mg 40 mg Subcutaneous QDAY(21) fludrocortisone (FLORINEF) tablet 0.1 mg 0.1 mg Oral QDAY hydroxychloroquine (PLAQUENIL) tablet 200 mg 200 mg Oral QDAY insulin aspart U-100 (NOVOLOG FLEXPEN) injection PEN 0-14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 Dioni Castillo [facility] Mobile Relation: Spouse Secondary Emergency Contact: Quiana Iqbal [facility] Mobile Relation: Sister Healthcare Directive Transportation Does the patient need discharge transport arranged?: No Transportation Name, Phone and Availability #1: Dioni Castillo () Does the patient use Medicaid Transportation?: No Expected Discharge Date Expected Discharge Date: 07/22/18 Living Situation Prior to Admission ? Living Arrangements Type of Residence: Home, independent Living Arrangements: Spouse/significant other Bathroom Shower / Tub: Tub/Shower Unit How many levels in the residence?: 1 (with basement) Can patient live on one level if needed?: Yes Does residence have entry and/or side stairs?: Yes (4 stairs to enter front of house, 14 on back deck and 14 stairs to basement) Assistance needed prior to admit or anticipated on discharge: Yes Who provides assistance or could if needed?: Dioni Castillo () Are they in good health?: Unknown Can support system provide 24/7 care if needed?: Maybe ? Level of Function Prior level of function: Independent ? Cognitive Abilities Cognitive Abilities: Alert and Oriented Financial Resources ? Coverage Primary Insurance: Medicare Secondary Insurance: Medicaid Additional Coverage: RX ? Source of Income Source Of Income: SSDI ? Financial Assistance Needed? NA Psychosocial Needs ? Mental Health Mental Health History: No ? Substance Use History Substance Use History Screen: No ? Other NA Current/Previous Services ? PCP Rubio Meza III, , ? Pharmacy [facility] [address] [facility] [address] [facility] [facility] [address] ? Durable Medical Equipment Durable Medical Equipment at home: None ? Home Health Receiving home health: No ? Hemodialysis or Peritoneal Dialysis Undergoing hemodialysis or peritoneal dialysis: No ? Tube/Enteral Feeds Receive tube/enteral feeds: No ? Infusion Receive infusions: No ? Private Duty Private duty help used: No ? Home and Community Based Services Home and community based services: No ? Mir Hester White: N/A ? Hospice Hospice: No ? 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 [facility] Facility/[facility]ison SNF: No NH: No ? Inpatient Rehab IPR: No ? [facility] LTACH: No ? Acute Hospital Stay Acute Hospital Stay: No Sandra Felipe RN. MSN Integrated Nurse Clutch Specialist Pager [phone] * ED Notes - Suleiman Adorno RN - 07/19/2018 9:24 AM CDT Pt blood sugar is 61, provided orange juice, crackers, and peanut butter. * ED Notes - Yusra Boss RN - 07/19/2018 8:57 AM CDT 0854: [id number]. Please call Judson @ [phone] for report. * ED Notes - Juana Abdullahi RN - 07/19/2018 6:34 AM CDT Pt is sleeping at this time. * ED Notes - Juana Abdullahi RN - 07/19/2018 5:55 AM CDT Pt is sleeping at this time. Pt's updated on POC * ED Notes - Juana Abdullahi RN - 07/19/2018 4:[address] Honeycutt and Dr Sarkar notified pt is requesting Morphine for pain and ice chips. Per Dr Sarkar due to patients original low blood pressures pt will not be receiving Morphine at this time. Pt educated she can have no intake by mouth due to her abdominal pain. * ED Provider Notes - Hoa Sarkar MD - 07/19/2018 4:00 AM CDT Associated Order(s): CRITICAL CARE Formatting of this note may be different from the original. Chelsea Castillo is a 58 y.o. female. Chief Complaint: Chief Complaint Patient presents with Head Pain Vomiting History of Present Illness: The patient is a 58-year-old female who presents with chief complaint of abdominal pain, headache. Patient arrives very hypotensive, IV access is obtained, and patient is given fluids, however the patient maintains normal mentation throughout the ED course. She explains that she has had chronic (months to years) abdominal pain that comes and goes, is associated with NBNB vomiting, and generalized 10 out of 10 abdominal pain, sharp and dull, constant when it occurs, it has been present since earlier this evening. She ate a hamburger for dinner, and while sitting on the couch had abrupt onset of pain. Today she also has tenderness and headache, which is sharp, constant, throbbing and located all over her head , with onset with the abdominal pain. Patient visited GI today and had no complaints of pain then, per review of records her testing is extensive and has included gastric emptying test, cholecystectomy, endoscopy, colonoscopy, multiple CTs, MRIs, blood work, all at outside hospitals. She denies fever, chills, cough, shortness of breath, chest pain, blood in stool. Last BM earlier today. Review of Systems: Review of Systems Constitutional: Positive for fatigue. Negative for chills and fever. HENT: Negative for sore throat. Eyes: Negative for visual disturbance. Respiratory: Negative for cough and shortness of breath. Cardiovascular: Negative for chest pain. Gastrointestinal: Positive for abdominal pain, nausea and vomiting. Negative for blood in stool, constipation and diarrhea. Genitourinary: Negative for dysuria. Musculoskeletal: Negative for myalgias. Skin: Negative for rash. Neurological: Positive for light-headedness. Negative for syncope. Psychiatric/Behavioral: Negative for confusion. Allergies: Sulfa (sulfonamide antibiotics) Past Medical History: [...] ulcers and healing Pertinent medical/surgical history reviewed Social History: Social History Substance Use Topics [...] T BP P RR SPO2P SPO2 User 07/20/18 2311 36.9 C (98.5 F) (!) 86/51 -- 18 PER MINUTE -- 95 % CS 07/20/18 1820 36.7 C (98 F) 128/66 81 18 PER MINUTE -- 97 % AP 07/20/18 1343 37.1 C (98.8 F) 130/61 86 18 PER MINUTE -- 98 % SF 07/20/18 1004 37.2 C (99 F) 132/65 87 18 PER MINUTE -- 95 % SF 07/20/18 0555 36.9 C (98.5 F) 125/71 74 18 PER MINUTE -- 98 % J 07/20/18 0345 -- -- 75 -- -- -- CS 07/20/18 0310 -- -- 74 -- -- -- CS 07/20/18 0224 37.2 C (98.9 F) 117/69 76 18 PER MINUTE -- 98 % JG 07/19/18 2320 -- -- 80 -- -- -- CS 07/19/182232 -- 128/69 82 18 PER MINUTE -- 99 % CS 07/19/18 2153 36.3 C (97.4 F) (!) 168/91 88 18 PER MINUTE -- 99 % J 07/19/181999 -- -- 88 -- -- -- CS 07/19/18 1706 36.8 C (98.3 F) 121/71 89 18 PER MINUTE -- 97 % HP 07/19/18 1357 36.9 C (98.4 F) 117/70 91 18 PER MINUTE -- 95 % AP 07/19/18 1143 37 C (98.6 F) 114/66 -- 18 PER MINUTE -- 96 % LW 07/19/18 0905 -- -- 90 -- 90 98 % DB 07/19/18 0900 -- 128/65 89 -- 89 94 % DB 07/19/18 0730 -- 119/71 91 -- 91 98 % DB 07/19/18 0700 -- 114/65 91 -- 91 97 % AB 07/19/18 0630 -- 112/71 90 -- 90 97 % AB 07/19/18 0601 -- -- 89 -- 89 96 % AB 07/19/18 0600 -- 118/67 90 -- -- -- AB 07/19/18 0531 -- -- 88 -- 85 95 % AB 07/19/18 0530 -- 120/63 89 -- 89 -- AB 07/19/18 0454 -- 109/58 84 -- 84 96 % AB 07/19/18 0430 -- 102/59 84 -- 84 93 % AB 07/19/18 0406 -- -- 84 -- 84 98 % AB 07/19/18 0405 -- 168/86 -- -- -- -- AB 07/19/18 0350 -- 120/66 81 -- 81 97 % AB 07/19/18 0340 -- 129/71 82 -- 82 97 % AB 07/19/18 0330 -- 124/71 83 -- 83 97 % AB 07/19/18 0320 -- 120/70 85 -- 85 99 % AB 07/19/18 0310 -- 111/72 79 20 PER MINUTE 79 98 % AB 07/19/18 0300 -- 102/62 75 17 PER MINUTE 75 98 % AB 07/19/18 0250 -- (!) 80/59 71 14 PER MINUTE 71 95 % DELMY 07/19/18 0240 -- 91/53 73 13 PER MINUTE 77 96 % DELMY 07/19/18 0230 -- 95/54 73 16 PER MINUTE 72 97 % DELMY 07/19/18 0223 -- -- 74 16 PER MINUTE 75 98 % DELMY 07/19/18 0220 -- 92/48 -- -- -- -- DELMY 07/19/18 0200 -- (!) 75/50 73 18 PER MINUTE 73 95 % AB 07/19/18 0152 -- (!) 76/50 77 17 PER MINUTE 76 95 % AB 07/19/18 0148 -- 93/60 81 20 PER MINUTE 80 98 % AB 07/19/18 0130 -- (!) 75/54 78 20 PER MINUTE 78 95 % AB 07/19/18 0120 -- (!) 83/57 81 20 PER MINUTE 81 96 % AB 07/19/18 0116 -- (!) 78/54 82 24 PER MINUTE 82 97 % AB 07/19/18 0114 -- (!) 67/36 -- -- -- -- KH 07/19/18 0112 37 C (98.6 F) (!) 59/38 90 16 PER MINUTE -- 99 % KH Physical Exam: Physical Exam Constitutional: She is oriented to person, place, and time. She appears well- developed. She appears distressed. HENT: Head: Normocephalic. Right Ear: External ear normal. Left Ear: External ear normal. Nose: Nose normal. Mouth/Throat: No oropharyngeal exudate. Eyes: Conjunctivae and EOM are normal. Pupils are equal, round, and reactive to light. Neck: Normal range of motion. Neck supple. No tracheal deviation present. Cardiovascular: Normal rate, regular rhythm, normal heart sounds and intact distal pulses. No murmur heard. Pulmonary/Chest: Effort normal and breath sounds normal. No respiratory distress. She has no wheezes. Abdominal: Soft. Bowel sounds are normal. She exhibits no distension. There is tenderness. There is no rebound and no guarding. diffusely Musculoskeletal: Normal range of motion. She exhibits no edema or tenderness. Neurological: She is alert and oriented to person, place, and time. No cranial nerve deficit or sensory deficit. She exhibits normal muscle tone. Coordination normal. Skin: Skin is warm and dry. Capillary refill takes less than 2 seconds. No rash noted. She is not diaphoretic. No erythema. Psychiatric: anxious Nursing note and vitals reviewed. Laboratory Results: Results for orders placed or performed during the hospital encounter of (from the past 24 hour(s)) CBC Result Value Ref Range White Blood Cells 7.8 4.5 - 11.0 K/UL RBC 3.31 (L) 4.0 - 5.0 M/UL Hemoglobin 8.6 (L) 12.0 - 15.0 GM/DL Hematocrit 26.2 (L) 36 - 45 % MCV 79.0 (L) 80 - 100 FL MCH 26.1 26 - 34 PG MCHC 33.0 32.0 - 36.0 G/DL RDW 16.9 (H) 11 - 15 % Platelet Count 221 150 - 400 K/UL MPV 9.1 7 - 11 FL COMPREHENSIVE METABOLIC PANEL Result Value Ref Range Sodium 133 (L) 137 - 147 MMOL/L Potassium 4.2 3.5 - 5.1 MMOL/L Chloride 99 98 - 110 MMOL/L Glucose 516 (HH) 70 - 100 MG/DL Blood Urea Nitrogen 11 7 - 25 MG/DL Creatinine 1.09 (H) 0.4 - 1.00 MG/DL Calcium 8.5 8.5 - 10.6 MG/DL Total Protein 5.6 (L) 6.0 - 8.0 G/DL Total Bilirubin 0.3 0.3 - 1.2 MG/DL Albumin 3.3 (L) 3.5 - 5.0 G/DL Alk Phosphatase 69 25 - 110 U/L AST (SGOT) 11 7 - 40 U/L CO2 26 21 - 30 MMOL/L ALT (SGPT) 11 7 - 56 U/L Anion Gap 8 3 - 12 eGFR Non 52 (L) >60 mL/min eGFR >60 >60 mL/min MAGNESIUM Result Value Ref Range Magnesium 2.1 1.6 - 2.6 mg/dL PHOSPHORUS Result Value Ref Range Phosphorus 4.4 (H) 2.0 - 4.0 MG/DL POC GLUCOSE Result Value Ref Range Glucose, POC 490 (H) 70 - 100 MG/DL POC GLUCOSE Result Value Ref Range Glucose, POC 464 (H) 70 - 100 MG/DL POC GLUCOSE Result Value Ref Range Glucose, POC 161 (H) 70 - 100 MG/DL POC GLUCOSE Result Value Ref Range Glucose, POC 133 (H) 70 - 100 MG/DL POC GLUCOSE Result Value Ref Range Glucose, POC 323 (H) 70 - 100 MG/DL POC Glucose (Download): (!) 323 Radiology Interpretation: CT HEAD WO CONTRAST Final Result No acute intracranial hemorrhage or mass effect. Finalized by Alvarado Wilkins M.D. on 07/19/2018 2:35 AM. Dictated by Alvarado Wilkins M.D. on 07/19/2018 2:[address] ABD/PELV W CONTRAST Final Result Chest: 1. No evidence of acute pulmonary [...] Alvarado Wilkins M.D. on 07/19/2018 2:25 AM. CTA CHEST WO/W CONTRAST+POST IMPRESSION Final Result Chest: 1. No evidence of acute pulmonary [...] Alvarado Wilkins M.D. on 07/19/2018 2:25 AM. EKG: Sinus rhythm, no QTC prolongation, QTC 447, no ST segment elevation or depression, normal axis. ED Course: The patient was evaluated by both resident and attending physician. Chief complaint was abd pain, vomiting, ROWE. Vital signs were sig for hypotension. IV access obtained, using patient's port which is present for need for continuous IV sticks, no history of cancer. Patient given 2 L of fluid resuscitation with improvement in blood pressures. Differential diagnosis was wide and but not limited to included SAH, migraine, cyclic vomiting, other intraabdominal pathology I.e. appendicitis, pancreatitis. CT head, CTA chest, CT pelvis and abdomen obtained as above, unremarkable for acute findings. Lactate WNL. Blood cultures obtained, CBC remarkable for anemia, CMP remarkable for RADHA. Urinalysis negative for infection. ECG and troponin neg. Patient's pain was treated with ketamine, opioids were avoided due to hypotension. Migraine cocktail avoided due to potential effects on blood pressure. Patient was still in pain, vomiting despite Zofran, and admission was recommended for continued workup of vomiting and abdominal pain despite negative imaging. Internal medicine accepted the patient for admission. Medical decision making was explained to the patient who expressed understanding and agreed with the plan. All questions were answered, and the patient was stable upon admission. MDM Reviewed: previous chart, nursing note and vitals Interpretation: labs, ECG and CT scan Total time providing critical care: 30-74 minutes. This excludes time spent performing separately reportable procedures and services. Facility Administered Meds: Facility-Administered Medications as of 07/21/2018 Medication Last Dose [COMPLETED] acetaminophen/lidocaine/antacid DS(#) (GI COCKTAIL) 1:1:3 suspension 30 mL 30 mL at 07/20/18 0819 amphetamine-dextroamphetamine XR (ADDERALL XR) capsule 40 mg 40 mg at 0820 atorvastatin (LIPITOR) tablet 40 mg 40 mg at 07/20/18 0823 carBAMazepine (TEGRETOL) tablet 400 mg Stopped at 07/21/18 0830 cetirizine (ZYRTEC) tablet 10 mg 10 mg at 07/20/18 0820 cholecalciferol (VITAMIN D-3) tablet 5,000 Units 5,000 Units at 07/20/18 08 cosyntropin (CORTROSYN) injection 0.25 mg [COMPLETED] diphenhydrAMINE (BENADRYL) injection 12.5 mg 12.5 mg at 0408 [COMPLETED] diphenhydrAMINE (BENADRYL) injection 25 mg 25 mg at 07/20/18 115 diphenhydrAMINE (BENADRYL) injection 25 mg diphenhydrAMINE (BENADRYL) injection [address] (CYMBALTA) capsule 90 mg enoxaparin (LOVENOX) syringe 40 mg 40 mg at 07/20/182052 EPINEPHrine PF (ADRENALIN) injection 0.3 mg fludrocortisone (FLORINEF) tablet 0.1 mg 0.1 mg at 07/20/18819 hydroxychloroquine (PLAQUENIL) tablet 200 mg 200 mg at 07/20/18 08 insulin aspart U-100 (NOVOLOG FLEXPEN) injection PEN 0-14 Units 8 Units at 07/20/182053 insulin aspart U-100 (NOVOLOG FLEXPEN) injection PEN 10 Units insulin aspart U-100 (NOVOLOG FLEXPEN) injection PEN 4 Units 4 Units at 12/06 insulin glargine (LANTUS SOLOSTAR, BASAGLAR) injection PEN 17 Units 17 Units at 07/20/182052 [COMPLETED] iopamidol 370 (ISOVUE-370) injection 80 mL 80 mL at 07/19/18 0230 iron sucrose (VENOFER) 300 mg in sodium chloride 0.9% (NS) IVPB 300 mg at 1504 [COMPLETED] ketamine (KETALAR) injection 13 mg 13 mg at 07/19/18 0301 levothyroxine (SYNTHROID) tablet 175 mcg 175 mcg at 07/20/18 0652 LORazepam (ATIVAN) tablet 1 mg 1 mg at 07/20/18 1507 [COMPLETED] magnesium sulfate 1 g/D5W 100 mL IVPB 1 g at 07/20/18 1154 [COMPLETED] magnesium sulfate 1 g/D5W 100 mL IVPB 1 g at 07/19/18 1645 melatonin tablet 3 mg 3 mg at 07/20/18 2251 montelukast (SINGULAIR) tablet 10 mg 10 mg at 07/20/182052 ondansetron (ZOFRAN ODT) rapid dissolve tablet 4 mg 4 mg at 07/20/18824 oxybutynin XL (DITROPAN XL) tablet 5 mg 5 mg at 07/20/[address] (PROTONIX) tablet 40 mg 40 mg at 07/20/18820 polyethylene glycol 3350 (MIRALAX) packet 17 g pregabalin (LYRICA) capsule 150 mg 150 mg at 07/20/182052 [COMPLETED] prochlorperazine (COMPAZINE) injection 10 mg 10 mg at 07/20/18 1154 prochlorperazine (COMPAZINE) injection 10 mg 10 mg at 07/20/18 2306 [COMPLETED] prochlorperazine (COMPAZINE) injection 10 mg 10 mg at 07/19/18 0409 [COMPLETED] rizatriptan (MAXALT) tablet 10 mg 10 mg at 07/19/182033 sodium chloride 0.9 % infusion [COMPLETED] sodium chloride PF 0.9% injection 50 mL 50 mL at 07/19/18 0230 sucralfate (CARAFATE) tablet 1 g 1 g at 07/20/182052 tiZANidine (ZANAFLEX) tablet 4 mg 4 mg at 07/19/182033 Clinical Impression: Final diagnoses: RADHA (acute kidney injury) (HCC) (Primary) Abdominal pain with vomiting Nonintractable headache, unspecified chronicity pattern, unspecified headache type Anemia, unspecified type Disposition/Follow up Admit No follow-up provider specified. Medications: Current Discharge Medication List Procedure Notes: Critical Care Performed by: CHESTER HONEYCUTT Authorized by: HOA SARKAR Total critical care time in minutes: 35 Critical care was exclusive of separately billable procedures and treating other patients and teaching time. Critical care was necessary to treat or prevent imminent or life-threatening deterioration of the following conditions: circulatory failure. Critical care was spent personally by me on the following activities: development of treatment plan with patient or surrogate, evaluation of patient' s response to treatment, examination of patient, obtaining history from patient or surrogate, ordering and performing treatments and interventions, ordering and review of laboratory studies, ordering and review of radiographic studies, pulse oximetry, re-evaluation of patient's condition, review of old charts, discussions with consultants and blood draw for specimens. Attending Attestation: I was present during the entire procedure by a resident or midlevel. Chester Honeycutt MD Attestation / Supervision Note concerning Chelsea Castillo: I personally performed the ortega portions of the E/M visit, discussed case with resident and concur with resident documentation of history, physical exam, assessment, and treatment plan unless otherwise noted. Hoa Sarkar MD * ED Notes - Sandra Reardon RN - 07/19/2018 3:08 AM CDT Ketamine given as first line treatment of pain. Patient states the medicine is not working yet. HOB to level; will raise up slightly if BP holds. * ED Notes - Juana Abdullahi RN - 07/19/2018 2:06 AM CDT Pt to CT with SHAVON May * ED Notes - Sandra Reardon RN - 07/19/2018 2:05 AM CDT Patient to CT. 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 She was seen in GI clinic earlier today for an initial evaluation and to get a 2nd opinion. Patient has a h/o abdominal pain with distention, n/v, and headache. Patient also has intermittent dysphagia and constipation. Last BM was today and normal for her. Patient reports these episodes have been recurring 1-2 x/month, 3-4 days at a time for the last 5 years. Patient rates her pain at 10/10; she is tearful and movement is guarded. Patient is frequently admitted for these symptoms and given a "cocktail" which seems to help her symptoms. Patient denied having pain today when seen in the clinic. They returned home to [place], [place] around 1999, and the pain began with abdominal distention around 2100. Patient ate a hamburger for dinner, but there hasn't been any causative factor to set off this pain and related symptoms. Patient came in very hypotensive with BP in triage of 59/38 and 67/36. Patient is afebrile and HR is in the 70s. Dr. Honeycutt at bedside, and Dr. Pavel came in shortly thereafter. Left chest port accessed via sterile technique. Blood return was sluggish and clotted in the syringe, but 1st set of blood cultures were obtained. Port flushed slightly sluggishly with 10 ml NS then 1L LR hung via pressure bag. Patient's belongings include lynne sweat pants, red long sleeve shirt, lynne zip front jacket, black socks, and a pain of slip on lynne shoes. She also has a folder with medical records. denies that any other personal affects were brought in tonight. in this encounter Plan of Treatment Name Priority Associated Diagnoses Order Schedule AMB REFERRAL TO RHEUMATOLOGY Routine Abdominal pain, Ordered: 07/22/2018 unspecified abdominal location as of this encounter Procedures Procedure Name Priority Date/Time Associated Diagnosis Comments TELEMETRY STRIPS-SCAN 07/25/2018 Results for this 10:18 [...] in the results section. ANTI MANSFIELD(SM) ANTI TOUCH UP EDGER Routine 07/21/2018 Results for this AB 5:58 [...] results section. in this encounter Results * TELEMETRY STRIPS-SCAN (07/25/2018 10:18 AM) Narrative Performed At Ordered by an unspecified provider. * POC GLUCOSE (07/22/2018 4:29 PM) Glucose, POC 146 (H) 70 - 100 MG/DL [facility] Performing Organization Address City/State/[facility] Phone Number [facility] [address] [place] [address] * POC GLUCOSE (07/22/2018 1:21 PM) Glucose, POC 220 (H) 70 - 100 MG/DL [facility] Performing Organization Address [facility] Phone Number [facility] [address] [place] [address] * POC GLUCOSE (07/22/2018 8:55 AM) Glucose, POC 103 (H) 70 - 100 MG/DL [facility] Performing Organization Address [facility] Phone Number [facility] [address] [place] [address] * CBC AND DIFF (07/22/2018 4:32 AM) White Blood Cells 8.2 4.5 - 11.0 K/UL [facility] RBC 3.27 (L) 4.0 - 5.0 M/UL [facility] Hemoglobin 8.6 (L) 12.0 - 15.0 GM/DL [facility] Hematocrit 25.7 (L) 36 - 45 % [facility] MCV 78.5 (L) 80 - 100 FL [facility] MCH 26.1 26 - 34 PG [facility] MCHC 33.3 32.0 - 36.0 G/DL [facility] RDW 16.3 (H) 11 - 15 % [facility] Platelet Count 174 150 - 400 K/UL [facility] MPV 8.9 7 - 11 FL [facility] Neutrophils 32 (L) 41 - 77 % [facility] Lymphocytes 48 (H) 24 - 44 % [facility] Monocytes 6 4 - 12 % [facility] Eosinophils 13 (H) 0 - 5 % [facility] Basophils 1 0 - 2 % [facility] Absolute Neutrophil Count 2.60 1.8 - 7.0 K/UL [facility] Absolute Lymph Count 3.90 1.0 - 4.8 K/UL [facility] Absolute Monocyte Count 0.50 0 - 0.80 K/UL [facility] Absolute Eosinophil Count 1.10 (H) 0 - 0.45 K/UL [facility] Absolute Basophil Count 0.10 0 - 0.20 K/UL [facility] Specimen Blood Performing Organization Address [facility] Phone Number [facility] [address] [place] [address] * COMPREHENSIVE METABOLIC PANEL (07/22/2018 4:32 AM) Sodium 141 137 - 147 MMOL/L [facility] Potassium 3.6 3.5 - 5.1 MMOL/L [facility] Chloride 106 98 - 110 MMOL/L [facility] Glucose 136 (H) 70 - 100 MG/DL [facility] Blood Urea Nitrogen 5 (L) 7 - 25 MG/DL [facility] Creatinine 0.96 0.4 - 1.00 MG/DL [facility] Calcium 8.5 8.5 - 10.6 MG/DL [facility] Total Protein 5.3 (L) 6.0 - 8.0 G/DL [facility] Total Bilirubin 0.2 (L) 0.3 - 1.2 MG/DL [facility] Albumin 3.2 (L) 3.5 - 5.0 G/DL [facility] Alk Phosphatase 64 25 - 110 U/L [facility] AST (SGOT) 17 7 - 40 U/L [facility] CO2 29 21 - 30 MMOL/L [facility] ALT (SGPT) 11 7 - 56 U/L [facility] Anion Gap 6 3 - 12 [facility] eGFR Non >60 >60 mL/min [facility] Comment: [...] for questions. Specimen Blood Performing Organization Address City/[facility]/Zipcode Phone Number [facility] [address] [place] [address] * POC GLUCOSE (07/21/2018 8:20 PM) Glucose, POC 350 (H) 70 - 100 MG/DL [facility] Performing Organization Address City/[facility]/Zipcode Phone Number [facility] [address] [place] [address] * POC GLUCOSE (07/21/2018 6:45 PM) Glucose, POC 129 (H) 70 - 100 MG/DL [facility] Performing Organization Address City/[facility]/Zipcode Phone Number [facility] [address] [place] [address] * POC GLUCOSE (07/21/2018 1:22 PM) Glucose, POC 239 (H) 70 - 100 MG/DL [facility] Performing Organization Address [facility] Phone Number [facility] [address] [place] [address] * ECG-SCAN (07/21/2018 1:09 PM) Narrative Performed At Ordered by an unspecified provider. * CORTISOL 60 MINUTES POST (07/21/2018 10:10 AM) Cortisol 60 Min 22.6 ug/dL [facility] Specimen Blood Performing Organization Address [facility] Phone Number [facility] [address] [place] [address] * POC GLUCOSE (07/21/2018 9:39 AM) Glucose, POC 165 (H) 70 - 100 MG/DL [facility] Performing Organization Address [facility] Phone Number MAIN LAB [address] [place] [address] * CORTISOL 30 MINUTES POST (07/21/2018 9:30 AM) Cortisol 30 Min 19.4 ug/dL MAIN LAB Specimen Blood Performing Organization Address [facility] Phone Number MAIN LAB [address] [place] [address] * ACTH (07/21/2018 8:40 AM) Adrenocorticotropic 73 (H) REFERENCE LAB Hormone Comment: Unit: pg/mL REFERENCE VALUE - 7.2-63 (a.m. collection) [facility], [address], [place] [address] Specimen Blood Performing Organization Address [facility] Phone Number REFERENCE LAB REFERENCE LAB See results for address. * CARBAMAZEPINE LEVEL (07/21/2018 8:40 AM) Carbamazepine 3.2 (L) 6.0 - 10.0 MCG/ML MAIN LAB Specimen Blood Performing Organization Address [facility] Phone Number MAIN LAB [address] [place] [address] * CORTISOL BASELINE (07/21/2018 8:40 AM) Cortisol Baseline 13.6 ug/dL MAIN LAB Specimen Blood Performing Organization Address [facility] Phone Number MAIN LAB [address] [place] [address] * ANTI MANSFIELD(SM) ANTI TOUCH UP EDGER AB (07/21/2018 5:58 AM) Anti-Mansfield <0.2Comment: Interpretation: <1.0 AI MAIN LAB Negative Anti-TOUCH UP EDGER <0.2Comment: Interpretation: <1.0 AI MAIN LAB Negative Specimen Blood Performing Organization Address [facility] Phone Number MAIN LAB [address] [place] [address] * CENTROMERE ANTIBODIES (07/21/2018 5:58 AM) Centromere Antibody <0.2 <1.0 [facility] MAIN LAB Comment: Interpretation: Negative NOTE NEW METHODOLOGY AND REFERENCE RANGE Specimen Blood Performing Organization Address [facility] Phone Number MAIN LAB [address] [place] [address] * CCP IGG ANTIBODY (07/21/2018 5:58 AM) CCP IgG Antibody <0.5Comment: NOTE NEW <3.0 [IU]/mL MAIN LAB METHODOLOGY AND REFERENCE RANGE Specimen Blood Performing Organization [facility] Phone Number MAIN LAB [address] [place] [address] * SCL 70 ANTIBODIES (07/21/2018 5:58 AM) SCL70 Ab <0.2 <1.0 [facility] MAIN LAB Comment: Interpretation: Negative NOTE NEW METHODOLOGY AND REFERENCE RANGE Specimen Blood Performing Organization Address [facility] Phone Number MAIN LAB [address] [place] [address] * ANTI SSA ANTI SSB AB (07/21/2018 5:58 AM) Anti-SSA <0.2Comment: Interpretation: <1.0 AI MAIN LAB Negative Anti-SSB 0.2Comment: Interpretation: <1.0 AI MAIN LAB Negative Specimen Blood Performing Organization Address [facility] Phone Number [facility] LAB [address] [place] [address] * RHEUMATOID FACTOR (RF) (07/21/2018 5:58 AM) Rheum Factor Screen <20 <24 IU/mL MAIN LAB Specimen Blood Performing Organization Address [facility] Phone Number MAIN LAB [address] [place] [address] * ANTI-DNA DOUBLE STRAND (07/21/2018 5:58 AM) DNA Double Strand AB <10 <10 [place] MAIN LAB Specimen Blood Performing Organization Address [facility] Phone Number MAIN LAB [address] [place] [address] * ANTI-NUCLEAR ANTIBODY(HERNAN) (07/21/2018 5:58 AM) HERNAN Screen <80 <80 [place] MAIN LAB Specimen Blood Performing Organization Address [facility] Phone Number MAIN LAB [address] [place] [address] * PERIPHERAL SMEAR (07/21/2018 5:58 AM) Peripheral Smear Microcytic, hypochromic red [facility] LAB cells. Consider iron deficiency anemia, anemia of chronic disease, thalassemia, and sideroblastic anemia. MILD EOSINOPHILIA. PLATELETS APPEAR NORMAL IN NUMBER AND MORPHOLOGY. Pathologist Signature INTERPRETED BY CHONG ROYAL [facility]U [place] By the PATH SIGNATURE ABOVE, I attest that I have personally formulated the final interpretation expressed in this report and that the above diagnosis is based upon my examination of the slides and/or other material indicated in this report. Specimen Blood Performing Organization Address [facility] Phone Number [facility] LAB [address] [place] [address] * CBC AND DIFF (07/21/2018 5:58 AM) White Blood Cells 6.9 4.5 - 11.0 K/UL [facility] LAB RBC 3.28 (L) 4.0 - 5.0 M/UL [facility] LAB Hemoglobin 8.4 (L) 12.0 - 15.0 GM/DL MAIN LAB Hematocrit 26.1 (L) 36 - 45 % MAIN LAB MCV 79.4 (L) 80 - 100 FL [facility] LAB MCH 25.7 (L) 26 - 34 PG [facility] LAB MCHC 32.4 32.0 - 36.0 G/DL [facility] MAIN LAB RDW 16.5 (H) 11 - 15 % [facility] MAIN LAB Platelet Count 194 150 - 400 K/UL [facility] MAIN LAB MPV 9.0 7 - 11 FL [facility] MAIN LAB Neutrophils 28 (L) 41 - 77 % [facility] MAIN LAB Lymphocytes 53 (H) 24 - 44 % [facility] MAIN LAB Monocytes 6 4 - 12 % [facility] MAIN LAB Eosinophils 12 (H) 0 - 5 % [facility] MAIN LAB Basophils 1 0 - 2 % [facility] MAIN LAB Absolute Neutrophil Count 1.90 1.8 - 7.0 K/UL [facility] MAIN LAB Absolute Lymph Count 3.70 1.0 - 4.8 K/UL [facility] MAIN LAB Absolute Monocyte Count 0.40 0 - 0.80 K/UL [facility] MAIN LAB Absolute Eosinophil Count 0.80 (H) 0 - 0.45 K/UL [facility] MAIN LAB Absolute Basophil Count 0.00 0 - 0.20 K/UL [facility] MAIN LAB Specimen Blood Performing Organization Address City/State/Zipcode Phone Number [facility] MAIN LAB [address] [place] [address] * COMPREHENSIVE METABOLIC PANEL (07/21/2018 5:58 AM) Sodium 140 137 - 147 MMOL/L [facility] MAIN LAB Potassium 3.6 3.5 - 5.1 MMOL/L [facility] MAIN LAB Chloride 105 98 - 110 MMOL/L [facility] MAIN LAB Glucose 66 (L) 70 - 100 MG/DL [facility] MAIN LAB Blood Urea Nitrogen 9 7 - 25 MG/DL [facility] MAIN LAB Creatinine 0.98 0.4 - 1.00 MG/DL [facility] MAIN LAB Calcium 8.3 (L) 8.5 - 10.6 MG/DL [facility] MAIN LAB Total Protein 5.4 (L) 6.0 - 8.0 G/DL [facility] MAIN LAB Total Bilirubin 0.3 0.3 - 1.2 MG/DL [facility] MAIN LAB Albumin 3.2 (L) 3.5 - 5.0 G/DL [facility] MAIN LAB Alk Phosphatase 67 25 - 110 U/L [facility] MAIN LAB AST (SGOT) 17 7 - 40 U/L [facility] MAIN LAB CO2 27 21 - 30 MMOL/L [facility] MAIN LAB ALT (SGPT) 10 7 - 56 U/L [facility] MAIN LAB Anion Gap 8 3 - 12 [facility] MAIN LAB eGFR Non 59 (L) >60 mL/min [facility] MAIN LAB Comment: [...] for questions. Specimen Blood Performing Organization Address City/[facility]/Zipcode Phone Number [facility] MAIN LAB [address] [place] [address] * POC GLUCOSE (07/20/2018 8:28 PM) Glucose, POC 323 (H) 70 - 100 MG/DL [facility] MAIN LAB Performing Organization Address City/[facility] Phone Number [facility] MAIN LAB [address] [place] [address] * POC GLUCOSE (07/20/2018 5:17 PM) Glucose, POC 133 (H) 70 - 100 MG/DL [facility] MAIN LAB Performing Organization Address [facility] Phone Number [facility] MAIN LAB [address] [place] [address] * POC GLUCOSE (07/20/2018 11:59 AM) Glucose, POC 161 (H) 70 - 100 MG/DL [facility] MAIN LAB Performing Organization Address City/[facility] Phone Number [facility] MAIN LAB [address] [place] [address] * POC GLUCOSE (07/20/2018 8:15 AM) Glucose, POC 464 (H) 70 - 100 MG/DL [facility] MAIN LAB Performing Organization Address [facility] Phone Number [facility] MAIN LAB [address] [place] [address] * POC GLUCOSE (07/20/2018 6:40 AM) Glucose, POC 490 (H) 70 - 100 MG/DL [facility] MAIN LAB Performing Organization Address City/[facility] Phone Number [facility] MAIN LAB [address] [place] [address] * COMPREHENSIVE METABOLIC PANEL (07/20/2018 5:30 AM) Sodium 133 (L) 137 - 147 MMOL/L [facility] MAIN LAB Potassium 4.2 3.5 - 5.1 MMOL/L [facility] MAIN LAB Chloride 99 98 - 110 MMOL/L [facility] MAIN LAB Glucose 516 (HH) 70 - 100 MG/DL [facility] MAIN LAB Comment: Critical Value GLU: Called To: DINORA Fang at: 06:40:55 by: LUPIS Read back by: DINORA Fang Blood Urea Nitrogen 11 7 - 25 MG/DL [facility] MAIN LAB Creatinine 1.09 (H) 0.4 - 1.00 MG/DL [facility] MAIN LAB Calcium 8.5 8.5 - 10.6 MG/DL [facility] MAIN LAB Total Protein 5.6 (L) 6.0 - 8.0 G/DL [facility] MAIN LAB Total Bilirubin 0.3 0.3 - 1.2 MG/DL [facility] MAIN LAB Albumin 3.3 (L) 3.5 - 5.0 G/DL [facility] MAIN LAB Alk Phosphatase 69 25 - 110 U/L [facility] MAIN LAB AST (SGOT) 11 7 - 40 U/L [facility] MAIN LAB CO2 26 21 - 30 MMOL/L [facility] MAIN LAB ALT (SGPT) 11 7 - 56 U/L [facility] MAIN LAB Anion Gap 8 3 - 12 [facility] MAIN LAB eGFR Non 52 (L) >60 mL/min [facility] MAIN LAB Comment: [...] City/State/Zipcode Phone Number [facility] MAIN LAB [address] [place] [address] * CBC (07/20/2018 5:30 AM) White Blood Cells 7.8 4.5 - 11.0 K/UL [facility] MAIN LAB RBC 3.31 (L) 4.0 - 5.0 M/UL [facility] MAIN LAB Hemoglobin 8.6 (L) 12.0 - 15.0 GM/DL [facility] MAIN LAB Hematocrit 26.2 (L) 36 - 45 % [facility] MAIN LAB MCV 79.0 (L) 80 - 100 FL [facility] MAIN LAB MCH 26.1 26 - 34 PG [facility] MAIN LAB MCHC 33.0 32.0 - 36.0 G/DL [facility] MAIN LAB RDW 16.9 (H) 11 - 15 % [facility] MAIN LAB Platelet Count 221 150 - 400 K/UL [facility] MAIN LAB MPV 9.1 7 - 11 FL MAIN LAB Specimen Blood Performing Organization Address City/[facility]/Zipcode Phone Number MAIN LAB [address] [place] [address] * PHOSPHORUS (07/20/2018 5:30 AM) Phosphorus 4.4 (H) 2.0 - 4.0 MG/DL MAIN LAB Specimen Blood Performing Organization Address City/[facility] Phone Number MAIN LAB [address] [place] [address] * MAGNESIUM (07/20/2018 5:30 AM) Magnesium 2.1 1.6 - 2.6 mg/dL MAIN LAB Specimen Blood Performing Organization Address [facility] Phone Number MAIN LAB [address] [place] [address] * POC GLUCOSE (07/19/2018 8:24 PM) Glucose, POC 372 (H) 70 - 100 MG/DL MAIN LAB Performing Organization Address [facility] Phone Number MAIN LAB [address] [place] [address] * POC GLUCOSE (07/19/2018 5:08 PM) Glucose, POC 284 (H) 70 - 100 MG/DL MAIN LAB Performing Organization Address [facility] Phone Number MAIN LAB [address] [place] [address] * IMMUNOGLOBULIN E (IGE) (07/19/2018 5:00 PM) IgE 24 <165 IU/ML MAIN LAB Specimen Blood Performing Organization Address [facility] Phone Number MAIN LAB [address] [place] [address] * FOLATE, SERUM (07/19/2018 5:00 PM) Serum Folate 15.7Comment: NOTE NEW >3.9 NG/ML MAIN LAB REFERENCE RANGES Specimen Blood Performing Organization Address City/[facility] Phone Number MAIN LAB [address] [place] [address] * VITAMIN B12 (07/19/2018 5:00 PM) Vitamin B12 751 180 - 914 PG/ML MAIN LAB Specimen Blood Performing Organization Address City/[facility]/Zipcode Phone Number [facility] MAIN LAB [address] [place] [address] * CORTISOL-AM (07/19/2018 5:00 PM) Cortisol-AM 6.3 (L) 6.7 - 22.6 MCG/DL [facility] MAIN LAB Specimen Blood Performing Organization Address [facility] Phone Number [facility] MAIN LAB [address] [place] [address] * IRON + BINDING CAPACITY + %SAT+ FERRITIN (07/19/2018 5:00 PM) Iron 24 (L) 50 - 160 MCG/DL [facility] MAIN LAB Iron Binding-TIBC 383 (H) 270 - 380 MCG/DL [facility] MAIN LAB % Saturation 6 (L) 28 - 42 % [facility] MAIN LAB Ferritin 6 (L) 10 - 200 NG/ML [facility] MAIN LAB Specimen Blood Performing Organization Address [facility] Phone Number [facility] MAIN LAB [address] [place] [address] * URINALYSIS, MICROSCOPIC (07/19/2018 12:58 PM) WBCs,UA 0-2 0 - 2 /HPF [facility] MAIN LAB RBCs,UA NONE 0 - 3 /HPF [facility] MAIN LAB Squamous Epithelial Cells 0-2 0 - 5 [facility] MAIN LAB Specimen Urine - Urine Performing Organization Address [facility] Phone Number [facility] MAIN LAB [address] [place] [address] * URINALYSIS DIPSTICK (07/19/2018 12:58 PM) Color,UA YELLOW [facility] MAIN LAB Turbidity,UA CLEAR CLEAR-CLEAR [facility] MAIN LAB Specific [place]-Urine 1.016 1.003 - 1.035 [facility] MAIN LAB pH,UA 8.0 5.0 - 8.0 [facility] MAIN LAB Protein,UA NEG NEG-NEG [facility] MAIN LAB Glucose,UA 3+ (A) NEG-NEG [facility] MAIN LAB Ketones,UA NEG NEG-NEG [facility] MAIN LAB Bilirubin,UA NEG NEG-NEG [facility] MAIN LAB Blood,UA NEG NEG-NEG [facility] MAIN LAB Urobilinogen,UA NORMAL NORM-NORMAL [facility] MAIN LAB Nitrite,UA NEG NEG-NEG [facility] MAIN LAB Leukocytes,UA NEG NEG-NEG [facility] MAIN LAB Urine Ascorbic Acid, UA NEG NEG-NEG [facility] MAIN LAB Specimen Urine - Urine Performing Organization Address [facility]/Zipcode Phone Number [facility] MAIN LAB [address] [place] [address] * POC GLUCOSE (07/19/2018 10:14 AM) Glucose, POC 117 (H) 70 - 100 MG/DL [facility] MAIN LAB Performing Organization Address [facility] Phone Number MAIN LAB [address] [place] [address] * POC GLUCOSE (07/19/2018 9:18 AM) Glucose, POC 61 (L) 70 - 100 MG/DL [facility] MAIN LAB Performing Organization Address [facility] Phone [facility] MAIN LAB [address] [place] [address] * C REACTIVE PROTEIN (CRP) (07/19/2018 6:20 AM) C-Reactive Protein 0.33 <1.0 MG/DL MAIN LAB Specimen Blood Performing Organization Address [facility] Phone Number MAIN LAB [address] [place] [address] * SED RATE (07/19/2018 6:20 AM) Sed Rate -ESR 5 0 - 30 MM/HR MAIN LAB Specimen Blood Performing Organization Address [facility] Phone Number MAIN LAB [address] [place] [address] * AMYLASE (07/19/2018 6:20 AM) Amylase 43 24 - 100 U/L MAIN LAB Specimen Blood Performing Organization Address [facility] Phone Number MAIN LAB [address] [place] [address] * CORTISOL,RANDOM (07/19/2018 6:20 AM) Cortisol, Random 2.8 (L) 5.0 - 20.0 MCG/DL MAIN LAB Specimen Blood Performing Organization Address [facility] Phone Number MAIN LAB [address] [place] [address] * TSH WITH FREE T4 REFLEX (07/19/2018 6:20 AM) TSH 4.350 0.35 - 5.00 MCU/ML MAIN LAB Specimen Blood Performing Organization Address [facility] Phone Number MAIN LAB [address] [place] [address] * HEMOGLOBIN A1C (07/19/2018 6:20 AM) Hemoglobin A1C 11.4 (H) 4.0 - 6.0 % [facility] MAIN LAB Comment: The ADA recommends that most patients with type 1 and type 2 diabetes maintain an A1c level <7%. Specimen Blood Performing Organization Address [facility] Phone Number [facility] MAIN [facility] [address] [place] [address] * URINALYSIS, MICROSCOPIC (07/19/2018 4:10 AM) WBCs,UA 0-2 0 - 2 /HPF [facility] MAIN LAB RBCs,UA NONE 0 - 3 /HPF [facility] MAIN LAB MucousUA TRACE [facility] MAIN LAB Squamous Epithelial Cells 0-2 0 - 5 [facility] MAIN LAB Specimen Urine - Urine Performing Organization Address [facility] Phone Number [facility] MAIN LAB [address] [place] [address] * URINALYSIS DIPSTICK (07/19/2018 4:10 AM) Color,UA YELLOW [facility] MAIN LAB Turbidity,UA CLEAR CLEAR-CLEAR [facility] MAIN LAB Specific [place]-Urine 1.030 1.003 - 1.035 [facility] MAIN LAB pH,UA 8.0 5.0 - 8.0 [facility] MAIN LAB Protein,UA NEG NEG-NEG [facility] MAIN LAB Glucose,UA 3+ (A) NEG-NEG [facility] MAIN LAB Ketones,UA NEG NEG-NEG [facility] MAIN LAB Bilirubin,UA NEG NEG-NEG [facility] MAIN LAB Blood,UA NEG NEG-NEG [facility] MAIN LAB Urobilinogen,UA NORMAL NORM-NORMAL [facility] MAIN LAB Nitrite,UA NEG NEG-NEG [facility] MAIN LAB Leukocytes,UA NEG NEG-NEG [facility] MAIN LAB Urine Ascorbic Acid, UA NEG NEG-NEG [facility] MAIN LAB Specimen Urine - Urine Performing Organization Address [facility] Phone Number [facility] MAIN LAB [address] [place] [address] * CRITICAL CARE (07/19/2018 4:00 AM) Narrative Performed At Hoa Sarkar MD 07/21/20181:30 AM Critical Care Performed by: CHESTER HONEYCUTT Authorized by: HOA SARKAR Total critical care time in minutes: 35 [...] procedure by a resident or midlevel. * POC TROPONIN (07/19/2018 2:52 AM) Btjrxulo-J-GRN 0.01 0.00 - 0.05 NG/ML MAIN LAB Performing Organization Address City/State/Zipcode Phone Number MAIN LAB [address] [place] [address] * CTA CHEST WO/W CONTRAST+POST IMPRESSION (07/19/2018 [...] axillary lymphadenopathy, slightly greater on the left. Clinical Support Nurse left axillary lymph node measures 2.5 x [...] bilateral external iliac and inguinal lymph nodes. Clinical Support Nurse right external iliac lymph node measures 2.4 [...] axillary lymphadenopathy, slightly greater on the left. Clinical Support Nurse left axillary lymph node measures 2.5 x [...] bilateral external iliac and inguinal lymph nodes. Clinical Support Nurse right external iliac lymph node measures 2.4 [...] Phone Number [facility] RAD RESULTS * CT ABD/PELV W CONTRAST (07/19/2018 2:22 [...] axillary lymphadenopathy, slightly greater on the left. Clinical Support Nurse left axillary lymph node measures 2.5 x [...] bilateral external iliac and inguinal lymph nodes. Clinical Support Nurse right external iliac lymph node measures 2.4 [...] axillary lymphadenopathy, slightly greater on the left. Clinical Support Nurse left axillary lymph node measures 2.5 x [...] bilateral external iliac and inguinal lymph nodes. Clinical Support Nurse right external iliac lymph node measures 2.4 [...] on 07/19/2018 2:19 AM. Performing Organization Address City/[facility]/Zipcode Phone Number RAD RESULTS * POC CREATININE, RAD (07/19/2018 2:03 AM) Creatinine, POC 1.2 (H) 0.4 - 1.00 MG/DL [facility] MAIN LAB Performing Organization Address [facility] Phone Number MAIN LAB [address] [place] [address] * ECG-SCAN (07/19/2018 2:00 AM) Narrative Performed At Ordered by an unspecified provider. * POC LACTATE (07/19/2018 2:00 AM) LACTIC ACID POC 1.4 0.5 - 2.0 MMOL/L [facility] MAIN LAB Performing Organization Address [facility] Phone Number MAIN LAB [address] [place] [address] * PHOSPHORUS (07/19/2018 1:40 AM) Phosphorus 4.2 (H) 2.0 - 4.0 MG/DL [facility] MAIN LAB Specimen Blood Performing Organization Address [facility] Phone Number MAIN LAB [address] [place] [address] * MAGNESIUM (07/19/2018 1:40 AM) Magnesium 2.3 1.6 - 2.6 mg/dL [facility] MAIN LAB Specimen Blood Performing Organization Address [facility] Phone Number MAIN LAB [address] [place] [address] * LIPASE (07/19/2018 1:40 AM) Lipase 27 11 - 82 U/L [facility] MAIN LAB Specimen Blood Performing Organization Address [facility] Phone Number MAIN LAB [address] [place] [address] * COMPREHENSIVE METABOLIC PANEL (07/19/2018 1:40 AM) Sodium 139 137 - 147 MMOL/L [facility] MAIN LAB Potassium 3.8 3.5 - 5.1 MMOL/L [facility] MAIN LAB Chloride 101 98 - 110 MMOL/L [facility] MAIN LAB Glucose 104 (H) 70 - 100 MG/DL [facility] MAIN LAB Blood Urea Nitrogen 10 7 - 25 MG/DL [facility] MAIN LAB Creatinine 1.45 (H) 0.4 - 1.00 MG/DL [facility] MAIN LAB Calcium 9.6 8.5 - 10.6 MG/DL [facility] MAIN LAB Total Protein 6.7 6.0 - 8.0 G/DL [facility] MAIN LAB Total Bilirubin 0.3 0.3 - 1.2 MG/DL [facility] MAIN LAB Albumin 4.0 3.5 - 5.0 G/DL [facility] MAIN LAB Alk Phosphatase 85 25 - 110 U/L [facility] MAIN LAB AST (SGOT) 15 7 - 40 U/L [facility] MAIN LAB CO2 30 21 - 30 MMOL/L [facility] MAIN LAB ALT (SGPT) 13 7 - 56 U/L [facility] MAIN LAB Anion Gap 8 3 - 12 [facility] MAIN LAB eGFR Non 37 (L) >60 mL/min [facility] MAIN LAB Comment: The eGFR is not validated for use in drug dosing adjustments.Continue to use estimated creatinine clearance per dosing reference text.Please contact the Clinical Pharmacist for questions. eGFR 45 (L) >60 mL/min [facility] MAIN LAB Comment: The eGFR is not validated for use in drug dosing adjustments.Continue to use estimated creatinine clearance per dosing reference text.Please contact the Clinical Pharmacist for questions. Specimen Blood Performing Organization Address City/State/Zipcode Phone Number MAIN LAB [address] [place] [address] * CBC AND DIFF (07/19/2018 1:40 AM) White Blood Cells 9.2 4.5 - 11.0 K/UL [facility] MAIN LAB RBC 3.55 (L) 4.0 - 5.0 M/UL [facility] MAIN LAB Hemoglobin 9.3 (L) 12.0 - 15.0 GM/DL [facility] MAIN LAB Hematocrit 28.1 (L) 36 - 45 % [facility] MAIN LAB MCV 79.2 (L) 80 - 100 FL [facility] MAIN LAB MCH 26.2 26 - 34 PG [facility] MAIN LAB MCHC 33.0 32.0 - 36.0 G/DL [facility] MAIN LAB RDW 17.0 (H) 11 - 15 % [facility] MAIN LAB Platelet Count 300 150 - 400 K/UL [facility] MAIN [facility] MPV 8.9 7 - 11 FL [facility] MAIN LAB Neutrophils 40 (L) 41 - 77 % [facility] MAIN LAB Lymphocytes 41 24 - 44 % [facility] MAIN [facility] Monocytes 7 4 - 12 % [facility] MAIN LAB Eosinophils 11 (H) 0 - 5 % [facility] MAIN [facility] Basophils 1 0 - 2 % [facility] MAIN LAB Absolute Neutrophil Count 3.60 1.8 - 7.0 K/UL [facility] MAIN [facility] Absolute Lymph Count 3.80 1.0 - 4.8 K/UL [facility] MAIN [facility] Absolute Monocyte Count 0.60 0 - 0.80 K/UL [facility] MAIN LAB Absolute Eosinophil Count 1.00 (H) 0 - 0.45 K/UL [facility] MAIN LAB Absolute Basophil Count 0.10 0 - 0.20 K/UL [facility] MAIN LAB Specimen Blood Performing Organization Address City/[facility] Phone Number [facility] MA[facility] [address] [place] [address] * CULTURE-BLOOD W/SENSITIVITY (07/19/2018 1:40 AM) Battery Name BLOOD CULTURE [facility] MAIN LAB Specimen Description BLOOD [facility] MAIN LAB LEFT UA Special Requests NONE [facility] MAIN LAB Culture NO GROWTH 5 DAYS [facility] MAIN LAB Report Status FINAL MAIN LAB 07/25/2018 Specimen Blood Performing Organization Address [facility] Phone Number MAIN LAB [address] [place] [address] * CULTURE-BLOOD W/SENSITIVITY (07/19/2018 1:30 AM) Battery Name BLOOD CULTURE MAIN LAB Specimen Description BLOOD MAIN LAB LEFT PORT Special Requests NONE MAIN LAB Culture NO GROWTH 5 DAYS [facility] MAIN LAB Report Status FINAL MAIN LAB 07/25/2018 Specimen Blood Performing Organization Address [facility] Phone Number [facility] MAIN [facility] [address] [place] [address] in this encounter Visit Diagnoses Diagnosis RADHA (acute kidney injury) (HCC) - Primary Acute kidney failure, unspecified Abdominal pain, unspecified abdominal location Nonintractable headache, unspecified chronicity pattern, unspecified headache type Anemia, unspecified type Admitting Diagnoses Diagnosis Abdominal pain Administered Medications Medication Order MAR Action Action Date Dose Rate Site acetaminophen (TYLENOL) tablet 650 mg Given 07/21/2018 650 mg 650 mg, Oral, ONCE, 1 dose, 07/21/18 21:00 CDT at 2045, TOTAL ACETAMINOPHEN DOSE NOT TO EXCEED 4GM DAILY acetaminophen/lidocaine/antacid DS(#) Given 07/20/2018 30 mL (GI COCKTAIL) 1:1:3 suspension 30 mL 08:19 CDT 30 mL, Oral, ONCE, 1 dose, 07/20/18 at 0815, 30mL (1:1:3)=192mg/6mL acetamin-6mL 2% vis lidocaine-18mL Antacid DS acetaminophen/lidocaine/antacid DS(#) Given 07/22/2018 30 mL (GI COCKTAIL) 1:1:3 suspension 30 mL 11:33 CDT 30 mL, Oral, ONCE, 1 dose, 07/22/18 at 1015, 30mL (1:1:3)=192mg/6mL acetamin-6mL 2% vis lidocaine-18mL Antacid DS amphetamine-dextroamphetamine XR Given 07/20/2018 40 mg (ADDERALL XR) capsule 40 mg 08:20 CDT 40 mg, Oral, EVERY MORNING, First dose on Sun07/19/18 at 0800, Until Discontinued Given 07/21/2018 40 mg 08:54 CDT Given 07/22/2018 40 mg 10:07 CDT atorvastatin (LIPITOR) tablet 40 mg Given 07/20/2018 40 mg 40 mg, Oral, DAILY, First dose on Sun 08:23 CDT 07/19/18 at 0900, Until Discontinued Given 07/21/2018 40 mg 08:54 CDT Given 07/22/2018 40 mg 10:06 CDT carBAMazepine (TEGRETOL) tablet 200 mg Given 07/19/2018 200 mg 200 mg, Oral, THREE TIMES DAILY, First 10:09 CDT dose on Sun07/19/18 at 1000, Until Discontinued carBAMazepine (TEGRETOL) tablet 400 mg Given 07/20/2018 400 mg 400 mg, Oral, DAILY, First dose on Sun 08:21 CDT 07/20/18 at 0900, Until Discontinued Given 07/21/2018 400 mg 08:54 CDT Given 07/22/2018 400 mg 10:08 CDT cetirizine (ZYRTEC) tablet 10 mg Given 07/20/2018 10 mg 10 mg, Oral, EVERY MORNING, First dose 08:20 CDT on Sun07/19/18 at 0800, Until Discontinued Given 07/21/2018 10 mg 08:54 CDT Given 07/22/2018 10 mg 10:09 CDT cholecalciferol (VITAMIN D-3) tablet Given 07/20/2018 5,000 Units 5,000 Units 08:21 CDT 5,000 Units, Oral, DAILY, First dose on Sun07/19/18 at 0900, Until Discontinued Given 07/21/2018 5,000 Units 08:53 CDT Given 07/22/2018 5,000 Units 10:06 CDT cosyntropin (CORTROSYN) injection 0.25 Given 07/21/2018 0.25 mg mg 08:59 CDT 0.25 mg, Intravenous, ONCE, 1 dose, 07/21/18 at 0800, Push over 2 minutes (dilute with 5 mL Normal Saline) x1. Obtain vital signs prior to the cosyntropin administration, after 60-minute cortisol level is drawn and PRN. diphenhydrAMINE (BENADRYL) injection Given 07/19/2018 12.5 mg 12.5 mg 04:08 CDT 12.5 mg, Intravenous, ONCE, 1 dose, 07/19/18 at 0230 diphenhydrAMINE (BENADRYL) injection 25 Given 07/20/2018 25 mg mg 11:54 CDT 25 mg, Intravenous, ONCE, 1 dose, 07/20/18 at 1130 diphenhydrAMINE (BENADRYL) injection 25 Given 07/22/2018 25 mg mg 13:04 CDT 25 mg, Intravenous, EVERY 4 HOURS PRN, Starting 07/20/18 at 1330, Until 07/22/18 at 2043, Other..., urticaria, If symptoms are rapidly progressing or continue after diphenhydramine, give epinephrine. diphenhydrAMINE (BENADRYL) injection 25 Given 07/21/2018 25 mg mg 20:59 CDT 25 mg, Intravenous, ONCE, 1 dose, 07/21/[address] (CYMBALTA) capsule 60 mg Given 07/19/2018 60 mg 60 mg, Oral, TWICE DAILY, First dose on 09:11 CDT 07/19/18 at 0900, Until Discontinued duloxetine DR (CYMBALTA) capsule 60 mg Given 07/20/2018 60 mg 60 mg, Oral, DAILY, First dose on Sat 08:21 CDT 07/20/18 at 0900, Until Discontinued duloxetine DR (CYMBALTA) capsule 90 mg Given 07/21/2018 90 mg 90 mg, Oral, DAILY, First dose on Sun 08:55 CDT 07/21/18 at 0900, Until Discontinued Given 07/22/2018 90 mg 10:08 CDT enoxaparin (LOVENOX) syringe 40 mg Given 07/19/2018 40 mg Abdomen:RLQ 40 mg, Subcutaneous, DAILY, First dose 20:35 CDT on Sun07/19/18 at 2100, Until Discontinued, For patients undergoing surgery: Consult physician in advance -- enoxaparin is an anticoagulant and may need to be held for 12hr prior to surgery or invasive procedures. NOTE: This is a HIGH ALERT Medication. Given 07/20/2018 40 mg Abdomen:LLQ 20:53 CDT EPINEPHrine PF (ADRENALIN) injection 0.3 mg 0.3 mg, Intramuscular, EVERY 10 MIN PRN, Starting 07/20/18 at 1330, Until 07/22/18 at 2043, Other..., iron infusion reaction management or symptoms of anaphylaxis, If symptoms are rapidly progressing or continue after diphenhydramine, or patient has symptoms of anaphylaxis, give epinephrine. Max 6 doses. NOTE: This is a HIGH ALERT Medication. estrogens, conjugated (PREMARIN) tablet Given 07/19/2018 0.625 mg 0.625 mg 10:09 CDT 0.625 mg, Oral, DAILY, First dose on Sun07/19/18 at 1000, Until Discontinued, Please provide educational leaflet from Nursing Teach File and document. If patient needs further education please write order for pharmacy consult. fentaNYL citrate PF (SUBLIMAZE) Given 07/19/2018 50 mcg injection 50-75 mcg 04:09 CDT 50-75 mcg, Intravenous, EVERY 1 HOUR PRN, 3 doses, Starting Sun07/19/18 at 0229, Until Sun07/19/18 at 0627, Pain Injectable ferrous gluconate tablet 324 mg Given 07/20/2018 324 mg 324 mg, Oral, DAILY WITH BREAKFAST, 08:21 CDT First dose on 07/20/18 at 0800, Until Discontinued, Each 324mg ferrous gluconate delivers 37.5mg elemental iron. fludrocortisone (FLORINEF) tablet 0.1 mg Given 07/20/2018 0.1 mg 0.1 mg, Oral, DAILY, First dose on Sun 08:20 CDT 07/19/18 at 0900, Until Discontinued Given 07/21/2018 0.1 mg 08:56 CDT Given 07/22/2018 0.1 mg 10:08 CDT heparin lock flush PF syringe 500 Units Given 07/22/2018 500 Units 500 Units, Intravenous, ONCE, 1 dose, 18:01 CDT 07/22/18 at 1745, NOTE: This is a HIGH ALERT Medication. hydroxychloroquine (PLAQUENIL) tablet Given 07/20/2018 200 mg 200 mg 08:20 CDT 200 mg, Oral, DAILY, First dose on Sun07/19/18 at 1100, Until Discontinued Given 07/21/2018 200 mg 08:54 CDT Given 07/22/2018 200 mg 10:07 CDT insulin aspart U-100 (NOVOLOG FLEXPEN) Given 07/21/2018 6 Units Abdomen :LLQ injection PEN 0-14 Units 13:23 CDT 0-14 Units, Subcutaneous, BEFORE MEALS AND AT BEDTIME, First dose on Sun07/20/18 at 0800, Until Discontinued, -POC glucose 140-180mg/dL at , , 17 administer 2 units insulin, at 21, 03* administer 0 units. -POC glucose 181-220mg/dL at , , administer 4 units insulin, at 21, 03* administer 2 units. -POC glucose 221-260mg/dL at , , administer 6 units insulin, at 21, 03* administer 4 units. -POC glucose 261-300mg/dL at , , administer 8 units insulin, at 21, 03* administer 6 units. -POC glucose 301-350mg/dL at , , administer 10 units insulin, at 21, 03* administer 8 units. -POC glucose 351-400mg/dL at , , administer 12 units insulin, at 21, 03* administer 10 units. -POC glucose >400mg/dL at , , administer 14 units insulin, at 21, 03* administer 12 units. *only if ordered 5x's daily For POCT glucose >350mg/dL give correction bolus and recheck POCT glucose in 2 hours. If POCT glucose at 2 hours >300mg/dL call physician for further orders. For patients who are not eating meals, continue to administer the appropriate correction factor. NOTE: This is a HIGH ALERT Medication. Given 07/21/2018 8 Units Arm, Left 20:22 CDT Given 07/22/2018 4 Units Arm, Right 13:23 CDT insulin aspart U-100 (NOVOLOG FLEXPEN) Given 07/19/2018 4 Units Abdomen:LLQ injection PEN 0-7 Units 17:17 CDT 0-7 Units, Subcutaneous, BEFORE MEALS AND AT BEDTIME, First dose on Sun07/19/18 at 0700, Until Discontinued, -POC glucose 140-180mg/dL at , , administer 1 unit insulin, at , 03* administer 0 units. -POC glucose 181-220mg/dL at , administer 2 units insulin, at , * administer 1 unit. -POC glucose 221-260mg/dL at , , administer 3 units insulin, at , * administer 2 units. -POC glucose 261-300mg/dL at , , administer 4 units insulin, at , * administer 3 units. -POC glucose 301-350mg/dL at , , administer 5 units insulin, at , * administer 4 units. -POC glucose 351-400mg/dL at administer 6 units insulin, at , * administer 5 units. -POC glucose >400mg/dL at , administer 7 units insulin, at , * administer 6 units. *only if ordered 5x's daily For POCT glucose >350mg/dL give correction bolus and recheck POCT glucose in 2 hours. If POCT glucose at 2 hours >300mg/dL call physician for further orders. For patients who are not eating meals, continue to administer the appropriate correction factor. NOTE: This is a HIGH ALERT Medication. Given 07/19/2018 5 Units Abdomen:LLQ 20:34 CDT insulin aspart U-100 (NOVOLOG FLEXPEN) injection PEN 10 Units 10 Units, Subcutaneous, DAILY WITH DINNER, First dose on 07/20/18 at 1700, Until Discontinued, Hold if NPO for procedure, unable to eat, or if FSBS < 70 mg/dL Give at start of meal. NOTE: This is a HIGH ALERT Medication. insulin aspart U-100 (NOVOLOG FLEXPEN) Given 07/20/2018 4 Units Abdomen :LLQ injection PEN 4 Units 08:21 CDT 4 Units, Subcutaneous, TWICE DAILY WITH MEALS, First dose on 07/20/18 at 0800, Until Discontinued, Hold if NPO for procedure, unable to eat, or if FSBS < 70 mg/dL Give at start of meal. NOTE: This is a HIGH ALERT Medication. Given 07/21/2018 4 Units Abdomen:LLQ 13:23 CDT insulin aspart U-100 (NOVOLOG FLEXPEN) Given 07/22/2018 6 Units Arm, Left injection PEN 6 Units 10:04 CDT 6 Units, Subcutaneous, TWICE DAILY WITH MEALS, First dose on 07/22/18 at 0800, Until Discontinued, Hold if NPO for procedure, unable to eat, or if FSBS < 70 mg/dL Give at start of meal. NOTE: This is a HIGH ALERT Medication. Given 07/22/2018 6 Units Arm, Right 13:23 CDT insulin glargine (LANTUS SOLOSTAR, Given 07/21/2018 15 Units Arm, Right BASAGLAR) injection PEN 15 Units 20:23 CDT 15 Units, Subcutaneous, AT BEDTIME DAILY, First dose on Sun07/21/18 at 2100, Until Discontinued, -- Do not mix with other insulins -- NOTE: This is a HIGH ALERT Medication. insulin glargine (LANTUS SOLOSTAR, Given 07/20/2018 17 Units Abdomen: LLQ BASAGLAR) injection PEN 17 Units 20:53 CDT 17 Units, Subcutaneous, AT BEDTIME DAILY, First dose on 07/20/18 at 2100, Until Discontinued, -- Do not mix with other insulins -- NOTE: This is a HIGH ALERT Medication. iopamidol 370 (ISOVUE-370) injection 80 Given 07/19/2018 80 mL mL 02:30 CDT 80 mL, Intravenous, ONCE, 1 dose, Sun07/19/18 at 0230, NOTE: This is a HIGH ALERT Medication. iron sucrose (VENOFER) 300 mg in sodium Given - New 07/20/2018 300 mg 77 mL/hr chloride 0.9% (NS) IVPB Bag 15:04 CDT 300 mg, Intravenous, 115 mL, Administer over 90 Minutes, DAILY, 3 doses, First dose on 07/20/18 at 1500, Last dose on Sun07/22/18 at 1500, -STOP infusion immediately, and notify physician for a new onset of the following: pruritis, facial flushing, chills, dyspnea, chest pain, back pain, hypotension, hypertension, lightheadedness, malaise, weakness, nausea, vomiting and diarrhea. -STOP infusion immediately, administer reaction management medication, call rapid response/code as appropriate and notify physician for a new onset of the following: diaphoresis, nausea, vomiting, severe low back pain, wheezing for 20 min, and decreased level of consciousness, staggering, ataxia, increases in respiratory rate, tremor and convulsions. Given - New Bag 07/21/2018 300 mg 77 mL/hr 14:59 CDT ketamine (KETALAR) injection 13 mg Given 07/19/2018 13 mg 13 mg (rounded from 12.98 mg=0.2 mg/kg 03:01 CDT 64.9 kg), Intravenous, ONCE, 1 dose, Sun07/19/18 at 0245, NOTE: This is a HIGH ALERT Medication. lactated ringers infusion Given - New 07/19/2018 2,000 mL 999 mL/hr 2,000 mL, 2,000 mL, Intravenous, at 999 Bag 01:30 CDT mL/hr, CONTINUOUS, Starting Sun07/19/18 at 0315, Until Sun07/19/18 at 0627 LACTATED RINGERS IV SOLP (Cabinet Override) NOW, 1 dose, Sun07/19/18 at 0145, Created by cabinet override levothyroxine (SYNTHROID) tablet 175 mcg Given 07/20/2018 175 mcg 175 mcg, Oral, DAILY 30MIN BEFORE 06:52 CDT BREAKFAST, First dose on Sun07/19/18 at 0630, Until Discontinued, Give 1 hour before a meal. If patient is receiving tube feedings, hold tube feed 1hr before and 1hr after dose. Given 07/21/2018 175 mcg 06:37 CDT Given 07/22/2018 175 mcg 06:53 CDT LORazepam (ATIVAN) tablet 1 mg Given 07/20/2018 1 mg 1 mg, Oral, TWICE DAILY PRN, Starting 15:07 CDT 07/20/18 at 1449, Until 07/22/18 at 2043, Anxiety PO, Restlessness, Seizures, Withdrawal Symptoms Given 07/21/2018 1 mg 16:49 CDT magnesium sulfate 1 g/D5W 100 mL IVPB Given - New 07/19/2018 1 g 100 mL/hr 1 g, Intravenous, 100 mL, Administer Bag 16:45 CDT over 1 Hours, ONCE, 1 dose, Sun07/19/18 at 1545, Each 1gm delivers 8.1 mEq Magnesium. magnesium sulfate 1 g/D5W 100 mL IVPB Given - 07/20/2018 1 g 100 mL/hr 1 g, Intravenous, 100 mL, Administer Bag 11:54 CDT over 1 Hours, ONCE, 1 dose, 07/20/18 at 1130, Each 1gm delivers 8.1 mEq Magnesium. magnesium sulfate 1 g/D5W 100 mL IVPB Given - 07/21/2018 1 g 100 mL/hr 1 g, Intravenous, 100 mL, Administer Bag 21:06 CDT over 1 Hours, ONCE, 1 dose, 07/21/18 at 2045, Each 1gm delivers 8.1 mEq Magnesium. magnesium sulfate 1 g/D5W 100 mL IVPB Given - New 07/22/2018 1 g 100 mL/hr 1 g, Intravenous, 100 mL, Administer Bag 13:28 CDT over 1 Hours, ONCE, 1 dose, 07/22/18 at 1330, Each 1gm delivers 8.1 mEq Magnesium. melatonin tablet 3 mg Given 07/19/2018 3 mg 3 mg, Oral, AT BEDTIME PRN, Starting Sun 23:21 CDT 07/19/18 at 2238, Until 07/22/18 at 2043, Insomnia Given 07/20/2018 3 mg 22:51 CDT Given 07/21/2018 3 mg 20:25 CDT montelukast (SINGULAIR) tablet 10 mg Given 07/19/2018 10 mg 10 mg, Oral, AT BEDTIME DAILY, First 20:34 CDT dose on Sun07/19/18 at 2100, Until Discontinued Given 07/20/2018 10 mg 20:53 CDT Given 07/21/2018 10 mg 20:21 CDT ondansetron (ZOFRAN ODT) rapid dissolve Given 07/20/2018 4 mg tablet 4 mg 08:25 CDT 4 mg, Oral, EVERY 4 HOURS PRN, Starting Sun07/19/18 at 1223, Until 07/22/18 at 2043, Nausea/Vomiting PO, Place on tongue and allow to dissolve. Given 07/21/2018 4 mg 16:49 CDT Given 07/22/2018 4 mg 16:49 CDT oxybutynin XL (DITROPAN XL) tablet 5 mg Given 07/20/2018 5 mg 5 mg, Oral, DAILY, First dose on Sun 08:24 CDT 07/19/18 at 1030, Until Discontinued Given 07/21/2018 5 mg 08:55 CDT Given 07/22/2018 5 mg 10:[address] (PROTONIX) tablet 40 mg Given 07/20/2018 40 mg 40 mg, Oral, DAILY, First dose on Sun 08:21 CDT 07/19/18 at 0900, Until Discontinued, Do not crush or chew tablet. Given 07/21/2018 40 mg 08:53 CDT Given 07/22/2018 40 mg 10:08 CDT polyethylene glycol 3350 (MIRALAX) packet 17 g 17 g (1 packet), Oral, DAILY PRN, Starting 07/20/18 at 1000, Until 07/22/18 at 2042, Constipation PO, 8.5 GRAMS=0.5 PACKET 17 GRAMS=1 PACKET 34 GRAMS=2 PACKETS pregabalin (LYRICA) capsule 150 mg Given 07/21/2018 150 mg 150 mg, Oral, TWICE DAILY, First dose on 08:53 CDT 07/19/18 at 0900, Until Discontinued Given 07/21/2018 150 mg 20:22 CDT Given 07/22/2018 150 mg 10:05 CDT prochlorperazine (COMPAZINE) injection Given 07/19/2018 10 mg 10 mg 04:09 CDT 10 mg, Intravenous, ONCE, 1 dose, Sun07/19/18 at 0230, PROTECT FROM LIGHT -- May be given undiluted, or each 5mg may be diluted with 9 mL of NS to facilitate titration. prochlorperazine (COMPAZINE) injection Given 07/20/2018 10 mg 10 mg 11:54 CDT 10 mg, Intravenous, ONCE, 1 dose, 07/20/18 at 1130, PROTECT FROM LIGHT -- May be given undiluted, or each 5mg may be diluted with 9 mL of NS to facilitate titration. prochlorperazine (COMPAZINE) injection Given 07/20/2018 10 mg 10 mg 23:06 CDT 10 mg, Intravenous, EVERY 6 HOURS PRN, Starting 07/20/18 at 2246, Until 07/22/18 at 204, Nausea/Vomiting Injectable, PROTECT FROM LIGHT -- May be given undiluted, or each 5mg may be diluted with 9 mL of NS to facilitate titration. Given 07/22/2018 10 mg 13:06 CDT prochlorperazine (COMPAZINE) injection Given 07/21/2018 10 mg 10 mg 20:59 CDT 10 mg, Intravenous, ONCE, 1 dose, 07/21/18 at 2045, PROTECT FROM LIGHT -- May be given undiluted, or each 5mg may be diluted with 9 mL of NS to facilitate titration. rizatriptan (MAXALT) tablet 10 mg Given 07/19/2018 10 mg 10 mg, Oral, ONCE PRN, 1 dose, Starting 20:34 CDT Sun07/19/18 at 0619, Until Sun07/19/18 at 2359, Headache, NOT TO EXCEED 30MG/24 HOURS sodium chloride 0.9 % infusion Given - New 07/20/2018 999 mL/hr 1,000 mL, Intravenous, at 999 mL/hr, Bag 23:45 CDT BOLUS, 1 dose, 07/20/18 at 2330 sodium chloride PF 0.9% injection 50 mL Given 07/19/2018 50 mL 50 mL, Intravenous, ONCE, 1 dose, Sun 02:30 CDT 07/19/18 at 0230, DO NOT SEND this medication unless it is requested. This med is usually available in floor stock. sucralfate (CARAFATE) tablet 1 g Given 07/22/2018 1 g 1 g, Oral, EVERY 6 HOURS, First dose on 04:45 CDT 07/19/18 at 0630, Until Discontinued, Can be made into a slurry by placing 1 Sucralfate tablet in 30 mL water and allow to stand for 5 minutes. Given 07/22/2018 1 g 10:09 CDT Given 07/22/2018 1 g 13:28 CDT tiZANidine (ZANAFLEX) tablet 4 mg Given 07/19/2018 4 mg 4 mg, Oral, AT BEDTIME PRN, Starting Fri 20:34 CDT 07/19/18 at 1407, Until 07/22/18 at 2043, Muscle Cramps vitamins, B complex tablet 1 tablet Given 07/21/2018 1 tablet 1 tablet, Oral, DAILY, First dose on Sun 13:27 CDT 9/2/18 at 1330, Until Discontinued Given 07/22/2018 1 tablet 10:05 CDT in this encounter
--- OUTSIDE RECORDS SUMMARY | 2018-08-05 14:33 | XMS REPORT | Encounter Summary ---
Author Author [facility] Organization [facility] Address Unknown Phone Unavailable Care Team Providers Care Grading Clerk Name Role Phone Charles Chau MD Unavailable Migue Patton MD PCP Encounter Details Date Type Department Care Team Description 07/19/2018 Procedure Pass [facility] [address] [place] [address] Social History Tobacco Use Types Packs/Day Years [...]
--- OUTSIDE RECORDS SUMMARY | 2018-08-05 14:33 | XMS REPORT | Encounter Summary ---
Author Author [facility] Organization [facility] Address Unknown Phone Unavailable Care Team Providers Care [place] Grounds Superintendent Name Role Phone Charles Chau MD Unavailable Migue Patton MD PCP Encounter Details Date Type Department Care Team Description 07/19/2018 Procedure Pass [facility] [address] [place] [address] Social History Tobacco Use Types Packs/Day Years [...]
--- OUTSIDE RECORDS SUMMARY | 2018-08-05 14:33 | XMS REPORT | Encounter Summary ---
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 medications. Additionally, I spent [id number] (20 min) and 1730 -1823 (53 min) totaling 73 minutes reviewing outside records, coordinating, and documenting care. Thank you for allowing me to participate in the care of this patient. Please call GI clinic with any questions/concerns. Balbina Matamoros APRN-ELECTRICAL AND INSTRUMENTATION MECHANIC in this encounter Plan of Treatment Name Priority Associated Diagnoses Order Schedule AMYLASE Routine Other dysphagia Expected: 07/18/2018, Other constipation Expires: 07/18/2019 Intractable cyclical vomiting with nausea Gastropathy Type 1 diabetes mellitus with complication (HCC) Dysthymia Anxiety Migraine with aura and with status migrainosus, not intractable Epigastric pain Abdominal pain, unspecified abdominal location LIPASE Routine Other dysphagia Expected: 07/18/2018, Other constipation Expires: 07/18/2019 Intractable cyclical vomiting with nausea Gastropathy Type 1 diabetes mellitus with complication (HCC) Dysthymia Anxiety Migraine with aura and with status migrainosus, not intractable Epigastric pain Abdominal pain, unspecified abdominal location COMPREHENSIVE METABOLIC PANEL Routine Other dysphagia Expected: 2017, Other constipation Expires: 07/18/2019 Intractable cyclical vomiting with nausea Gastropathy Type 1 diabetes mellitus with complication (HCC) Dysthymia Anxiety Migraine with aura and with status migrainosus, not intractable Epigastric pain Abdominal pain, unspecified abdominal location TSH WITH FREE T4 REFLEX Routine Other dysphagia Expected: 07/18/2018, Other constipation Expires: 07/18/2019 Intractable cyclical vomiting with nausea Gastropathy Type 1 diabetes mellitus with complication (HCC) Dysthymia Anxiety Migraine with aura and with status migrainosus, not intractable Epigastric pain Abdominal pain, unspecified abdominal location CBC Routine Other dysphagia Expected: 07/18/2018, Other constipation Expires: 07/18/2019 Intractable cyclical vomiting with nausea Gastropathy Type 1 diabetes mellitus with complication (HCC) Dysthymia Anxiety Migraine with aura and with status migrainosus, not intractable Epigastric pain Abdominal pain, unspecified abdominal location C REACTIVE PROTEIN (CRP) Routine Other dysphagia Expected: 07/18/2018, Other constipation Expires: 07/18/2019 Intractable cyclical vomiting with nausea Gastropathy Type 1 diabetes mellitus with complication (HCC) Dysthymia Anxiety Migraine with aura and with status migrainosus, not intractable Epigastric pain Abdominal pain, unspecified abdominal location SED RATE Routine Other dysphagia Expected: 07/18/2018 Other constipation (Approximate), Expires: Intractable cyclical 07/18/2019 vomiting with nausea Gastropathy Type 1 diabetes mellitus with complication (HCC) Dysthymia Anxiety Migraine with aura and with status migrainosus, not intractable Epigastric pain Abdominal pain, unspecified abdominal location CORTISOL-AM Routine Other dysphagia Expected: 07/18/2018, Other constipation Expires: 07/18/2019 Intractable cyclical vomiting with nausea Gastropathy Type 1 diabetes mellitus with complication (HCC) Dysthymia Anxiety Migraine with aura and with status migrainosus, not intractable Epigastric pain Abdominal pain, unspecified abdominal location Name Priority Associated Diagnoses Order Schedule AMB REFERRAL TO PSYCHIATRY Routine Other dysphagia Ordered: 07/18/2018 Other constipation Intractable cyclical vomiting with nausea Gastropathy Type 1 diabetes mellitus with complication (HCC) Dysthymia Anxiety Migraine with aura and with status migrainosus, not intractable Epigastric pain Abdominal pain, unspecified abdominal location AMB REFERRAL TO NEUROLOGY Routine Other dysphagia Ordered: 07/18/2018 Other constipation Intractable cyclical vomiting with nausea Gastropathy Type 1 diabetes mellitus with complication (HCC) Dysthymia Anxiety Migraine with aura and with status migrainosus, not intractable Epigastric pain Abdominal pain, unspecified abdominal location AMB REFERRAL TO SPINE [facility]ENTER Routine Other dysphagia Ordered: 07/18/2018 Other constipation Intractable cyclical vomiting with nausea Gastropathy Type 1 diabetes mellitus with complication (HCC) Dysthymia Anxiety Migraine with aura and with status migrainosus, not intractable Epigastric pain Abdominal pain, unspecified abdominal location AMB REFERRAL TO ENDOCRINOLOGY Routine Other dysphagia Ordered: 2017 Other constipation Intractable cyclical vomiting with nausea Gastropathy Type 1 diabetes mellitus with complication (HCC) Dysthymia Anxiety Migraine with aura and with status migrainosus, not intractable Epigastric pain Abdominal pain, unspecified abdominal location as of this encounter Visit Diagnoses Diagnosis Abdominal pain, unspecified abdominal location - Primary Other dysphagia Other constipation Intractable cyclical vomiting with nausea Gastropathy Unspecified disorder of stomach and duodenum Type 1 diabetes mellitus with complication (HCC) Type I (juvenile type) diabetes mellitus with unspecified complication, not stated as uncontrolled Dysthymia Dysthymic disorder Anxiety Anxiety state, unspecified Migraine with aura and with status migrainosus, not intractable Migraine with aura, with intractable migraine, so stated, with status migrainosus Epigastric pain Abdominal pain, epigastric
--- NOTE | 2018-08-05 14:58 | ED Cough/URI ---
General Chief Complaint: Cough/Cold/Flu Symptoms Stated Complaint: COLD SYMPTOMS Nursing Triage Note: Pt reports cough x3 days, chest congestion, and abd pain. Source: patient Exam Limitations: no limitations History of Present Illness Date Seen by Provider: Aug 05, 2018 Time Seen by Provider: 14:56 Initial Comments To ER with reports of a nonproductive cough for 3 days. This is nonproductive. She does have some chest congestion. She has rhinorrhea. She reports loss of voice. She also has a headache and a stomachache and is nauseous. sHe is tearful upon arrival. She is well-known to us here in the emergency room. Timing/Duration: yesterday, getting worse Severity/Quality: dry cough Associated Symptoms: cough Allergies and Home Medications Allergies Coded Allergies: Sulfa (Sulfonamide Antibiotics) (Verified Allergy, Unknown, 11/26/15) Home Medications Albuterol Sulfate 18 Gm Hfa.aer.ad, 2 PUFF IH Q6H PRN for SHORTNESS OF BREATH, ( Reported) Alprazolam 1 Mg Tablet, 1 MG PO DAILY PRN for ANXIETY, (Reported) Atorvastatin Calcium 40 Mg Tablet, 40 MG PO HS, (Reported) Carbamazepine 200 Mg Tab.er.12h, 200 MG PO BID, (Reported) Cetirizine HCl 10 Mg Tablet, 10 MG PO DAILY, (Reported) Cholecalciferol (Vitamin D3) 5,000 Unit Capsule, 5,000 UNIT PO DAILY, (Reported) Clobetasol Propionate 15 Gm Cream..g., TOP UD PRN for SKIN, (Reported) Dextroamphetamine/Amphetamine 20 Mg Tablet, 20 MG PO BID, (Reported) Diclofenac Sodium 100 Gm Gel..gram., TOP UD PRN for JOINT PAIN, (Reported) Duloxetine HCl 60 Mg Capsule.dr, 60 MG PO BID, (Reported) Estrogens Conjugated 30 Gm Cr, UD, (Reported) Estrogens, Conjugated 0.625 Mg Tablet, 0.625 MG PO DAILY, (Reported) Fesoterodine Fumarate 4 Mg Tab.sr.24h, 4 MG PO DAILY, (Reported) Fludrocortisone Acetate 0.1 Mg Tab, 0.1 MG PO BID, (Reported) Fluticasone Propionate 16 Gm [place].susp, 1 SPRAY NS BID PRN for ALLERGIES, ( Reported) Glucagon,Human Recombinant 1 Mg/Kit Soln, UD PRN for BLOOD SUGAR, (Reported) Hydrocodone/Acetaminophen 1 Each Tablet, 1 TAB PO QID PRN for PAIN-MODERATE, ( Reported) Hydroxychloroquine Sulfate 200 Mg Tablet, 200 MG PO DAILY, (Reported) Insulin Degludec 100 Unit/1 Ml Insuln.pen, 17 UNITS SQ HS, (Reported) Insulin Lispro 100 Unit/1 Ml Insuln.pen, 4 UNITS SQ 0800,1200, (Reported) Insulin Lispro 100 Unit/1 Ml Insuln.pen, 10 UNIT SQ 1800, (Reported) Levothyroxine Sodium 175 Mcg Tablet, 175 MCG PO DAILY, (Reported) Lidocaine/Prilocaine 30 Gm Cream..g., TOP UD PRN for SKIN, (Reported) Lorazepam 1 Mg Tablet, 1 MG PO BID, (Reported) Montelukast Sodium 10 Mg Tablet, 10 MG PO DAILY, (Reported) Multivitamin with Minerals 1 Each Tablet, 1 TAB PO DAILY, (Reported) Nitrofurantoin Monohyd/M-Cryst 100 Mg Capsule, 1 TAB PO BID Prescribed by: CARA LEWIS on 05/17/182108 Nortriptyline HCl 25 Mg Capsule, 25 MG PO HS, (Reported) Nystatin 60 Gm Powder, TOP UD PRN for RASH, (Reported) Ondansetron 4 Mg Tab.rapdis, 8 MG PO Q6H PRN for NAUSEA/VOMITING Prescribed by: CARA LEWIS on 05/17/182108 Pantoprazole Sodium 40 Mg Tablet.dr, 40 MG PO DAILY, (Reported) Pentosan Polysulfate Sodium 100 Mg Capsule, 100 MG PO TID, (Reported) UNKNOWN LAST FILL DATE Potassium Chloride 10 Meq Capsule.er, 10 MEQ PO DAILY, (Reported) Pregabalin 150 Mg Capsule, 150 MG PO BID, (Reported) Rizatriptan Benzoate 10 Mg Tablet, 10 MG PO UD PRN for MIGRAINE, (Reported) Sucralfate 1 Gm/10 Ml Oral.susp, 1 GM PO AC, (Reported) Tizanidine HCl 4 Mg Tablet, 4 MG PO TID PRN for MUSCLE SPASMS, (Reported) Zolpidem Tartrate 10 Mg Tablet, 10 MG PO HS, (Reported) [Biotex] , 200 UNITS PO UD PRN for MIGRAINE, (Reported) Patient Home Medication List Home Medication List Reviewed: Yes Review of Systems Review of Systems Constitutional: see HPI EENTM: see HPI, nose congestion Respiratory: see HPI, cough Cardiovascular: no symptoms reported Gastrointestinal: nausea Genitourinary: no symptoms reported Musculoskeletal: no symptoms reported Skin: no symptoms reported Psychiatric/Neurological: See HPI, Headache Hematologic/Lymphatic: No Symptoms Reported Past Syhrdym-Ozncnr-Ktxowa Hx Patient Social History 2nd Hand Smoke Exposure: No Recent Foreign Travel: No Contact w/Someone Who Travel: No Recent Infectious Disease Expo: No Recent Hopitalizations: No (SEE LIST FOR HX) Immunizations Up To Date Tetanus Booster (TDap): More than 5yrs Date of Pneumonia Vaccine: Aug 19, 2014 Date of Influenza Vaccine: Aug 22, 2017 Seasonal Allergies Seasonal Allergies: No Past Medical History Surgeries: Yes (PORT,CARPAL TUNNEL, R.HIP, BILAT SHOULDER SURGERY, port placement) Eye Surgery, Gallbladder, Hysterectomy, Orthopedic, Vascular Surgery Respiratory: Yes Asthma Currently Using CPAP: No Currently Using BIPAP: No Cardiac: Yes High Cholesterol, Hypertension Neurological: Yes Concussion, Headaches /Migraines, Neuropathy, Seizure Disorder, Traumatic Brain Injury Reproductive Disorders: No Female Reproductive Disorders: Denies 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 CHRONIC ABDOMINAL PAIN. ) Ulcer Musculoskeletal: Yes Arthritis Endocrine: Yes (ADRENAL DISEASE) Diabetes, Insulin dep, Hypothyroidsim HEENT: Yes Chronic Ear Infection Loss of Vision: Denies Hearing Impairment: Denies Cancer: No Psychosocial: Yes Anxiety, Depression Integumentary: No Blood Disorders: No Adverse Reaction/Blood Tranf: No Family Medical History Alcoholism 09 BROTHER Cancer 03 MOTHER (PANCREATIC CA) Myocardial infarction 03 MOTHER No Pertinent Family Hx, Cancer Physical Exam Vital Signs - First Documented 08/05/18 14:47 Temp 99.7 Pulse 108 Resp 20 B/P (MAP) 136/67 (90) Pulse Ox 96 O2 Delivery Room Air Capillary Refill : Less Than 3 Seconds Height: 5'5.00" Weight: 135lbs. 3.2oz. [id number]; 24.2 BMI Method:Stated General Appearance: WD/WN, no apparent distress Eyes: Bilateral Eye Normal Inspection, Bilateral Eye PERRL, Bilateral Eye EOMI HEENT: PERRL/EOMI, normal ENT inspection, other (rhinorrhea) Neck: non-tender, full range of motion Respiratory: lungs clear, normal breath sounds, no respiratory distress, no accessory muscle use; No crackles, No wheezing Cardiovascular: regular rate, rhythm, no murmur Gastrointestinal: normal bowel sounds, non tender, soft Extremities: normal range of motion, non-tender Neurologic/Psychiatric: alert, normal mood/affect, oriented x 3 Skin: normal color, warm/dry Progress/Results/Core Measures Suspected Sepsis Recent Fever Within 48 Hours: No Infection Criteria Present: Suspected New Infection New/Unexplained Altered Menta: No Sepsis Screen: No Definite Risk SIRS Temperature:99.7 Pulse: 108 Respiratory Rate: 20 Blood Pressure 136 /67 Mean: 90 Results/Orders My Orders Orders - BRENDA PARDO APRN Chest Pa/Lat (2 View) (08/05/18 14:55) Dexamethasone Pf Injection (Decadron Pf (08/05/18 15:00) Diphenhydramine Injection (Benadryl Inje (08/05/18 15:00) Prochlorperazine Injection (Compazine In (08/05/18 15:00) Ketorolac Injection (Toradol Injection) (08/05/18 15:00) Medications Given in ED Current Medications Medications Dose Ordered Sig/Reva Route Start Time Stop Time Status Last Admin Dose Admin Dexamethasone Sodium Phosphate 10 mg ONCE ONCE IM 08/05/18 15:00 08/05/18 15:01 DC 08/05/18 15:13 10 MG Diphenhydramine HCl 50 mg ONCE ONCE IM 08/05/18 15:00 08/05/18 15:01 DC 08/05/18 15:13 50 MG Ketorolac Tromethamine 60 mg ONCE ONCE IM 08/05/18 15:00 08/05/18 15:01 DC 08/05/18 15:14 60 MG Prochlorperazine Edisylate 10 mg ONCE ONCE IM 08/05/18 15:00 08/05/18 15:01 DC 08/05/18 15:14 10 MG Vital Signs/I&O 08/05/18 08/05/18 08/05/18 08/05/18 14:47 15:13 15:13 15:14 Temp 99.7 99.7 99.7 99.7 Pulse 108 Resp 20 B/P (MAP) 136/67 (90) Pulse Ox 96 O2 Delivery Room Air 08/05/18 15:14 Temp 99.7 Capillary Refill : Less Than 3 Seconds Blood Pressure Mean: 90 Departure Impression Primary Impression: Bronchitis Disposition: 01 HOME, SELF-CARE Condition: Stable Departure-Patient Inst. Decision time for Depature: 14:58 Referrals: RUBIO MEZA DO (PCP/Family) Primary Care Physician Patient Instructions: Acute Bronchitis, Adult (DC) Add. Discharge Instructions: 1. Return to ER for any concerns 2. Follow-up with your doctor this week within 48 hours for recheck. You may use an [id number] cough and cold remedy for nasal congestion and runny nose and cough. All discharge instructions reviewed with patient and/or family. Voiced understanding. Scripts Cefuroxime Axetil (Cefuroxime) 250 Mg Tablet 250 MG PO BID, #10 TAB Prov: BRENDA PARDO APRN 08/05/18 BRENDA PARDO APRN Aug 05, 2018 14:58
[2018-08-05] MEDS ORDERED: PROCHLORPERAZINE 10 MG/2ML INJ (COMPAZINE) IM ONE (15:00)
[2018-08-05] MEDS ORDERED: KETOROLAC 60 MG/2 ML VIAL IM ONE (15:00)
[2018-08-05] MEDS ORDERED: DEXAMETHASONE PF 10 MG/ML (DECADRON) VIAL IM ONE (15:00)
[2018-08-05] MEDS ORDERED: diphenhydrAMINE 50 MG/ML INJ (BENADRYL) IM ONE (15:00)
[2018-08-05] MEDS ORDERED: CEFU250T80 PO (15:36)
--- NOTE | 2018-08-05 15:37 | Diagnostic Imaging Report ---
INDICATION: Cough and chest congestion. TIME OF EXAM: 03:47 p.m. Comparison is made with prior chest from 02/02/2014. Left chest wall port remains in place. There is some linear scarring or atelectasis in the right base. Otherwise lungs are clear. No effusion or pneumothorax is seen. IMPRESSION: No acute cardiopulmonary process is detected. Dictated by: Dictated on workstation # [id number]
[2018-08-05 15:48] VITALS: BP 136/67
== END 2018-08-05 15:48 | disposition home or self-care (01) ==
LOC: EDUNIT# 13:59 → ER 14:00
DX: J40 Bronchitis, not specified as acute or chronic (principal); J45.909 Unspecified asthma, uncomplicated; E78.00 Pure hypercholesterolemia, unspecified; I10 Essential (primary) hypertension; G43.909 Migraine, unspecified, not intractable, without status migrainosus; G40.909 Epilepsy, unspecified, not intractable, without status epilepticus; E11.9 Type 2 diabetes mellitus without complications; E03.9 Hypothyroidism, unspecified; F41.9 Anxiety disorder, unspecified; F32.9 Major depressive disorder, single episode, unspecified; Z80.0 Family history of malignant neoplasm of digestive organs; Z82.49 Family history of ischemic heart disease and other diseases of the circulatory system; Z87.19 Personal history of other diseases of the digestive system; Z87.440 Personal history of urinary (tract) infections; Z87.820 Personal history of traumatic brain injury; Z88.2 Allergy status to sulfonamides; Z79.51 Long term (current) use of inhaled steroids; Z79.4 Long term (current) use of insulin; Z79.52 Long term (current) use of systemic steroids; Z90.710 Acquired absence of both cervix and uterus
CPT/HCPCS: 71046; 96372

== ENCOUNTER 2018-08-19 22:22 | Emergency (ER) | payer MEDICARE, MEDICAID ==
[~2018-08-19] VITALS: Ht 165.1 cm; Wt 63.5 kg
[~2018-08-19 22:22] MED LIST changes: +CEFU250T80 PO
--- OUTSIDE RECORDS SUMMARY | 2018-08-19 23:02 | XMS REPORT | Encounter Summary ---
Author Author [facility] Organization [facility] Address Unknown Phone Unavailable Care Team Providers Care Machine Featheredger And Reducer Name Role Phone Charles Chau MD Unavailable Migue Patton MD PCP Sandra Wayne MD 3 Reason for Referral * Consult, Test & Treat (Urgent) Status Reason Specialty Diagnoses / Referred By Referred To Procedures Contact Contact New Request Specialty Endocrinology, Diagnoses Sandra Wayne, Case Im Diabetes Services Metabolism & Type 1 diabetes MD Ortho and Medical Required Genetics mellitus with [address] (HCC) [address] [place], [place] [id number] Phone: Reason for Visit * Reason Comments Establish Care Encounter Details Date Type Department Care Team Description 08/19/2018 Office Visit [facility] Sandra Wayne MD Type 1 diabetes mellitus Physicians - Internal [address] with complication (HCC) Medicine [address] (Primary Dx); [place] [address] Healthcare maintenance; [address] [phone] Orthostatic hypotension; [address] Immunosuppression due to [place], [place] drug therapy; [id number] Influenza vaccine needed; [phone] Anxiety; Chronic abdominal pain; Acquired hypothyroidism; LAD (lymphadenopathy), axillary Social History Tobacco Use Types Packs/Day Years Used Date Never Smoker Smokeless Tobacco: Never Used Alcohol Use Drinks/Week oz/Week Comments No Sex Assigned at Date Recorded Not on file as of this encounter Last Filed Vital Signs Vital Sign Reading Time Taken Blood Pressure 113/79 08/19/2018 9:01 AM CDT Pulse 94 08/19/2018 9:01 AM CDT Temperature - - Respiratory Rate 16 08/19/2018 8:50 AM CDT Oxygen Saturation - - Inhaled Oxygen - - Concentration Weight 64 kg (141 lb) 08/19/2018 8:50 AM CDT Height 165.1 cm (5' 5") 08/19/2018 8:50 AM CDT Body Mass Index 23.46 08/19/2018 8:50 AM CDT in this encounter Functional Status Functional [...] impairment: No 07/22/2018 as of this encounter Instructions * Patient Instructions - Sandra Wayne MD - 08/19/2018 8:40 AM CDT Formatting of this note may be different from the original. It was nice to see you today. Thank you for coming into clinic. The following referral is in place for you to schedule an appoinment at your convenience: pending referrals to psychiatry, rheumatology Follow up with me in 1 month or sooner as needed. Please remember to come 15 minutes before your appointment for the check-in process. Routine Clinic Information: Please don't hesitate to call if you have any problems or questions. My nurse is Bonifacio and she can be reached at [phone]. If she does not answer, please leave a voicemail. Out of respect for patient/ call volume, please only call once in a 24 hour period and Bonifacio will return your call as soon as she can. You may also message us in [employer]. Please note that it may take up to two business days to reply to MyChart messages. For refills on medications, please have your pharmacy fax a refill authorization request form to our office at . Please allow at least 3 business days for refill requests. For urgent issues after business hours/weekends/holidays call [phone] and request for the outpatient internal medicine physician to be paged. We offer same day appointments for your acute health concerns. These appointments are on a first come, first serve basis. Please call [phone] if you would like to make an appointment. If I am not available, you can see any of my partners or try to see me the next day (call at 8am). Take care, Dr. Wayne and Bonifacio Future Appointments Date Time Provider Department Center 08/23/2018 12:30 PM David Chávez MD [facility] SPINE 09/13/2018 8:00 AM Gunnar Kirk MD [facility] IM 09/26/2018 9:20 AM Yanet Cormier MD [facility] Neuro 10/08/2018 10:20 AM Taylor Avelar MD [facility] IM in this encounter Progress Notes * Sandra Wayne MD - 08/19/2018 8:40 AM CDT Formatting of this note may be different from the original. Subjective: History of Present Illness Chelsea Castillo is a 58 y.o. female. Patient presents today to establish care. O2 request. 58yo woman history of T1DM, osteoporosis, inflammatory arthritis on hydroxycloroquine, migraine with aura, cyclic vomiting, anxiety, gastritis, hypothyroidism secondary to thyroidectomy, Admitted 07/19-07/22: admitted for epigastric abdominal pain associated with nausea and vomiting the previous evening. Afebrile but significantly hypotensive , for which she received 2 liters of IV fluids. A Ct Abdomen/Chest revealed bilateral axillary lymphadenopathy and tiny, non-calcified right middle lobe nodule. Of note, she was previously seen in GI clinic on 07/18 in the morning for her 3-5 year history of cyclic vomiting and abdominal pain. She returned home to [place], [place] then evening of 07/18, experienced the abdominal pain with nausea and vomiting, and returned back to [place]. She was admitted to Internal Medicine inpatient where her treatment for abdominal pain and headache was continued. On admission she was found to have significant polypharmacy that may be contributing to her significant abdominal pain. She was continued on PPI and Carafate, and she was given multiple GI cocktails for her abdominal pain. She was started on Benefiber and Miralax per GI outpatient recommendations as well. On discharge, she was tolerating solid foods without difficulty. She is scheduled to follow up with GI outpatient in one month. Migraine - discharged on oral mag. Questionable history of absence seizures but no EEG. Psychiatry was consulted while inpatient, and recommendation of continuing her INDUSTRIAL NURSE Cymbalta and Xanax for her depression and [...] and is being discharged on her continued INDUSTRIAL NURSE Treseba, along with Aspart 6-6-10 with meals and medium dose correction factor. Notable discharge medications that were added were: GI Cocktail as needed for abdominal pain, Magnesium for headaches, discontinuation of multiple medications including Ativan and adderall. She is being discharged home on 07/22 after finishing lunch without difficulty. -Hospital follow-up: Follow up of lymphadenopathy and lung calcification on admission CT Scan. Seen in ED on 07/24 for nausea and diarrhea. Got GI cocktail, toradol, zofran Seen in ED on 08/04 for chest pain and dizziness. Cough. Chest x-ray was negative for any acute cardiopulmonary abnormality. CMP is unremarkable, urinalysis was negative for sign of infection and TSH was within normal limits. Troponin was negative. CBC shows a mild leukocytosis of 12.5 but is otherwise unremarkable. The patient was given Compazine, Toradol, Benadryl for headache. She is given a GI cocktail with Pepcid and Protonix for abdominal pain. Her pain improved and she was discharged to home. Has appointments with spine anesthesia, neurology, GI and endocrine. Referrals placed and pending for rheumatology and psychiatry. From today's visit: Patient arrived late to her visit today. The patient presents today because she was told she needed an prop sawyer provider in the system. She lives several hours away in [facility] and does have a general practitioner that she follows with down there. She is considering continuing to follow with Dr. Patton at this time because he is closer to her house. Her PCP manages her anxiety (taking both Xanax and ativan), as well as her type 1 diabetes and her orthostatic hypotension. He also prescribes her Plaquenil for her arthritis. She does not know what kind of arthritis she has or what testing was done, and does not recall being diagnosed with lupus or rheumatoid arthritis. The patient states that her average morning blood sugars have ranged from the high 100s to the mid 200s over the past several weeks. She did not bring her glucometer. He sugars have ranged from in the 30s to unreadable/greater than 500 over the past several weeks. She takes 15 units of Treseba at night. She also takes 4 units of Humalog every 4 hours plus additional insulin for hyperglycemia or her based on the number of carbohydrates that she eats. This regimen is different from what she was discharged on in July and is managed by her PCP. The patient has difficulty explaining to me her sliding scale or how she manages her diabetes. She takes Florinef for orthostatic hypotension and saw her primary care physician Dr. Patton last Sunday, who increased her dose to 0.3 mg at night. She actually has an appointment with him this afternoon for repeat blood pressure check and medication titration. he patient has not yet been contacted to schedule for rheumatology or with psychiatry, but does have appointments with neurology, GI, and anesthesia pain management. She does not understand why her pain pills were stopped when she discharged from the hospital. I reviewed that they were stopped due to concern for dissociative episodes per psychiatry recommendations and the patient being on multiple sedating medications. Also that opiates are not recommended for chronic abdominal pain. Her states that she has nonepileptic seizures but he now thinks she did have an EEG done at [facility] (hospital notes indicate patient did not have EEG). He cannot say what kind of seizure activity she has. They seem reluctant to acknowledge that the patient is on multiple sedating medications that could be causing her seizure-like symptoms, including Ambien, Ativan and Xanax, Lyrica, Cymbalta, and had been on opiate medication prior to discharge from the hospital. The patient states that she continued to have abdominal pain, nausea, and vomiting until several days ago and is now starting to feel better. She eats approximately 2-3 times per day and then has small snacks throughout the day. She states she has had an emptying study that was normal. She was diagnosed with type 1 diabetes when she was 15 years old. She has annual mammograms, and believes she had a colonoscopy at age 52. She thinks she may have been told that she needed a 5- year follow-up but is not sure. She does not remember when her last Pap smear was done. She declines diabetic foot exam today. Review of Systems Constitutional: Positive for appetite change, chills, diaphoresis and unexpected weight change. Negative for fatigue and fever. HENT: Positive for sore throat and trouble swallowing. Negative for ear pain. Hoarseness Eyes: Positive for photophobia. Negative for pain and visual disturbance. Respiratory: Positive for cough and shortness of breath. Negative for chest tightness. Cardiovascular: Positive for chest pain. Negative for leg swelling. Gastrointestinal: Positive for abdominal pain, diarrhea, nausea and vomiting. Negative for constipation. Endocrine: Positive for cold intolerance, polydipsia and polyuria. Genitourinary: Positive for pelvic pain. Negative for dysuria, menstrual problem and vaginal discharge. Nocturia Musculoskeletal: Positive for arthralgias, back pain, gait problem, myalgias, neck pain and neck stiffness. Negative for joint swelling. Skin: Positive for color change. Negative for rash and wound. Neurological: Positive for dizziness, seizures, syncope, light-headedness, numbness and headaches. Negative for weakness. Psychiatric/Behavioral: Positive for confusion and dysphoric mood. Negative for sleep disturbance. The patient is nervous/anxious. Past Medical History: Diagnosis Date Arthritis Diabetes [...] Social History Narrative No narrative on file Objective: acetaminophen/lidocaine/antacid DS(#) (GI COCKTAIL) 1:1:3 Take 30 mL by mouth three times daily as needed. ALPRAZolam (XANAX) 1 mg tablet Take 1 mg by mouth at bedtime as needed for Anxiety. atorvastatin (LIPITOR) 40 mg tablet Take 40 mg by mouth daily. carBAMazepine (TEGRETOL) 200 mg tablet Take 400 mg by mouth daily. cetirizine (ZYRTEC) 10 mg tablet Take 10 mg by mouth every morning. cholecalciferol(+) (VITAMIN D-3) 5,000 unit tablet Take 5,000 Units by mouth daily. clobetasol (TEMOVATE) 0.05 % topical solution Apply topically to affected area twice daily. coenzyme Q10(+) 100 mg cap Take one capsule by mouth twice daily. diclofenac(+) (VOLTAREN) 1 % topical gel Apply 4 g topically to affected area four times daily as needed. duloxetine DR (CYMBALTA) 30 mg capsule Take three capsules by mouth daily. estrogens, conjugated(+) (PREMARIN) 0.625 mg/g vaginal cream Insert or Apply 0.5 g to vaginal area daily. ferrous gluconate (FERGON) 240 mg (27 mg iron) tablet Take one tablet by mouth daily. fesoterodine ER(+) (TOVIAZ) 4 mg tablet Take 4 mg by mouth daily. fludrocortisone (FLORINEF) 0.1 mg tablet Take 0.3 mg by mouth daily. fluticasone (FLONASE) 50 mcg/actuation nasal spray Apply to each nostril as directed daily. Shake bottle gently before using. glucagon,human recombinant (GLUCAGEN DIAGNOSTIC KIT IJ) Inject 1 Units to area(s) as directed as Needed. hydroxychloroquine (PLAQUENIL) 200 mg tablet Take 200 mg by mouth daily. Take with food. insulin degludec (TRESEBA SOLOSTAR) 100 unit/mL (3 mL) injection pen Inject 15 Units under the skin at bedtime daily. insulin lispro(+) (HUMALOG KWIKPEN INSULIN) 100 unit/mL injection PEN Inject 6 units subcutaneously with breakfast and lunch, and 10 units with dinner. levocarnitine(+) (LEVOCARNITINE(+)) 500 mg tablet Take four tablets by mouth twice daily. levothyroxine (SYNTHROID) 175 mcg tablet Take 175 mcg by mouth daily 30 minutes before breakfast. lidocaine/prilocaine (EMLA) 2.5/2.5 % topical cream Apply topically to affected area as Needed. LORazepam (ATIVAN) 1 mg tablet Take 1 mg by mouth every 4 hours as needed for Nausea, Vomiting or Other.... magnesium oxide (MAG-OX) 400 mg tablet Take one tablet by mouth daily. montelukast (SINGULAIR) 10 mg tablet Take 10 mg by mouth at bedtime daily. multivitamin with minerals (HAIR,SKIN AND NAILS PO) Take by mouth. nystatin (NYSTOP) 100,000 unit/g topical powder Apply topically to affected area four times daily. ondansetron (ZOFRAN ODT) 4 mg rapid dissolve tablet Dissolve one tablet by mouth every [address] on tongue to disolve. pantoprazole DR (PROTONIX) 40 mg tablet Take 40 mg by mouth daily. pentosan polysulfate sodium (ELMIRON) 100 mg capsule Take 100 mg by mouth three times daily before meals. polyethylene glycol 3350 (MIRALAX) 17 g packet Take one packet by mouth daily. potassium chloride SR (K-DUR) 10 mEq tablet Take 10 mEq by mouth daily. Take with a meal and a full glass of water. pregabalin (LYRICA) 150 mg capsule Take 150 mg by mouth twice daily. promethazine (PHENERGAN) 12.5 mg rectal suppository Insert or Apply one suppository to rectal area as directed every 8 hours as needed for Nausea. rizatriptan (MAXALT) 10 mg tablet Take 10 mg by mouth once as needed for Headache. May repeat in 2 hours if needed sucralfate (CARAFATE) 1 gram tablet Take 1 g by mouth three times daily before meals. Take on an empty stomach. tiZANidine (ZANAFLEX) 4 mg tablet Take 4 mg by mouth every 6 hours as needed. vitamins, B complex tab Take one tablet by mouth daily. zolpidem (AMBIEN) 10 mg tablet Take 10 mg by mouth at bedtime as needed for Sleep. Vitals: 08/19/18 0850 08/19/18 0901 BP: 142/87 113/79 Pulse: 91 94 Resp: 16 Weight: 64 kg (141 lb) Height: 165.1 cm (65") Body mass index is 23.46 kg/m. Physical Exam Constitutional: She is oriented to person, place, and time. She appears well- developed and well-nourished. No distress. HENT: Head: Normocephalic and atraumatic. Right Ear: Hearing, tympanic membrane and ear canal normal. Left Ear: Hearing, tympanic membrane and ear canal normal. Mouth/Throat: Oropharynx is clear and moist. No oropharyngeal exudate. Eyes: Pupils are equal, round, and reactive to light. Conjunctivae and EOM are normal. No scleral icterus. Neck: Normal range of motion. Neck supple. No JVD present. No tracheal deviation present. No thyromegaly present. Cardiovascular: Normal rate, regular rhythm, normal heart sounds and intact distal pulses. No murmur heard. Pulmonary/Chest: Effort normal and breath sounds normal. No respiratory distress. She has no wheezes. She has no rales. Abdominal: Soft. Bowel sounds are normal. She exhibits no distension and no mass. There is tenderness in the epigastric area and periumbilical area. Musculoskeletal: Normal range of motion. She exhibits no edema or tenderness. Lymphadenopathy: She has no cervical adenopathy. She has no axillary adenopathy. Neurological: She is alert and oriented to person, place, and time. Skin: Skin is warm and dry. No rash noted. She is not diaphoretic. Very hodges skin. Psychiatric: She has a normal mood and affect. Thought content normal. Her mood appears not anxious. She is slowed and withdrawn. She does not exhibit a depressed mood. Nursing note and vitals reviewed. Assessment and Plan: Problem Healthcare Maintenance Orthostatic Hypotension Immunosuppression Due to Drug Therapy Acquired Hypothyroidism Lad (Lymphadenopathy), Axillary Chronic Abdominal Pain Type 1 Diabetes Mellitus With Complication (Hcc) Anxiety Anxiety -Generalized anxiety, not well controlled -patient on Xanax 1mg qhs PRN as well as Ambien -also on Ativan for possible seizures -on duloxetine for depression, anxiety, and pain -managed by PCP in [place] -discussed with patient that she would need to establish with psychiatry ( referral pending, was ordered in the hospital) due to need for multiple medications with uncontrolled symptoms -obtain outside records Chronic abdominal pain -multiple admissions and ER visit -has follow-up with GI scheduled -on tizanidine, sucralafate, promethazine, Lyrica, Miralax, PPI, zofran ODT, and GI cocktail -has had normal emptying study -normal cortisol stim test during recent admission -patient with hyperpigmented skin -question whether she could have polyglandular autoimmune syndrome type 2 given T1DM & hypothyroidism - will follow-up endo recommendations and consider Celiac screen if not already done Acquired hypothyroidism -TSH low 08/04 with normal T4 -continue levothyroxine 175mcg for now, repeat level in 6 weeks if patient decides to follow with our clinic Healthcare maintenance -Age appropriate anticipatory guidance given -Vaccinations: -Td/Tdap vaccine: obtain outside records -Flu vaccine: due, will give today -Pneumococcal vaccine: obtain outside records -Shingles vaccine: obtain outside records -Colon Cancer screening: colonoscopy done 2011, will obtain outside records to determine follow-up interval -Breast cancer screening: done Nov 2017 -Cervical Cancer screening: due -Lung Cancer screening: not indicated based on age/risk -Osteoporosis: not indicated based on age/risk -BMI: Discussed patient's BMI with her. The body mass index is 23.46 kg/m. and falls within the category of Acceptable (19 to <25); BMI plan is in progress. -Depression: PHQ2 screen done on 08/19/18 -Tobacco/Alcohol: never smoker -HTN/HLD: BP at goal, obtain outside records for HLD screening -DM: diagnosed with T1DM -Hepatitis: obtain outside records -HIV: obtain outside records -Eye exam: counseled on regular eye exams. Follows [facility], saw them last in 2017 Immunosuppression due to drug therapy -on Plaquenil for arthritis - uncertain diagnosis -patient states she receives this medication from her PCP -follows with [facility] [place] -obtain outside records -high-dose flu vaccine today Orthostatic hypotension -episodes of hypotension while in the hospital -orthostatic hypotension without syncope in the office today -recently increased to fludrocortisone 0.3mg and taking at night - managed by her PCP -has appointment with PCP today for repeat BP check and dose adjustment, will defer management to him LAD (lymphadenopathy), axillary -noted on CT chest while in the hospital -none noted on exam today -olson-positive ROS -mammogram Nov 2017 normal -tiny calcified nodule on CT chest during hospitalization - patient is a non- smoker, no follow-up needed -obtain outside records prior to ordering further studies Type 1 diabetes mellitus with complication (HCC) -current regimen Treseba 15U qhs and Humalog 4U q4h plus SSI -managed by PCP -has had labile BS ranging 30s-500s -symptoms of increased thirst and polyuria -HA1C 11.4% on 07/19/18 - under poor control -has appt to establish with endocrine in Sep 2018 -will refer to diabetic nurse educator due to confusion over SSI Orders Placed This Encounter influenza (=>67 YO) TRIvalent HIGH DOSE (FLUZONE) vaccine PF AMB REFERRAL TO DIABETIC EDUCATION -RTC in 4 weeks if she would like to follow here for primary care, will request outside records I discussed with the patient that it is dangerous to have to primary care physicians managing her chronic conditions. I certainly understand why she would want to have a primary care physician in [facility], close to home. We discussed that she could follow here for primary care and care coordination with her specialist, and then continue to follow with Dr. Patton' s office in [place] for more urgent care issues. She however is considering staying with Dr. Patton, which is understandable as he also prescribes her benzodiazepines and manages her seizures, type 1 diabetes, anxiety, possible inflammatory arthritis, and chronic pain. I discussed that I would recommend that she at least establish with specialists for these uncontrolled chronic conditions to get updated recommendations and ensure that she actually needs to be on a lot of medication that she is on. I am very concerned about her polypharmacy as well as her health literacy, as she is on several high risk medications and does not demonstrate understanding of the complexity of her medical illnesses or why she is on these medications. Because she has an appointment with her primary care physician in [place] today, we will not make any significant changes to her medical regimen at this time to avoid medication errors. She chooses to follow with us, she is asked to make a follow -up appointment within 4 weeks. Sandra Wayne MD Internal Medicine 08/19/2018 Patient Instructions It was nice to see you today. Thank you for coming into clinic. The following referral is in place for you to schedule an appoinment at your convenience: pending referrals to psychiatry, rheumatology Follow up with me in 1 month or sooner as needed. Please remember to come 15 minutes before your appointment for the check-in process. Routine Clinic Information: Please don't hesitate to call if you have any problems or questions. My nurse is Bonifacio and she can be reached at [phone]. If she does not answer, please leave a voicemail. Out of respect for patient/ call volume, please only call once in a 24 hour period and Bonifacio will return your call as soon as she can. You may also message us in [employer]. Please note that it may take up to two business days to reply to [employer] messages. For refills on medications, please have your pharmacy fax a refill authorization request form to our office at . Please allow at least 3 business days for refill requests. For urgent issues after business hours/weekends/holidays call [phone] and request for the outpatient internal medicine physician to be paged. We offer same day appointments for your acute health concerns. These appointments are on a first come, first serve basis. Please call [phone] if you would like to make an appointment. If I am not available, you can see any of my partners or try to see me the next day (call at 8am). Take care, Dr. Wayne and Bonifacio Future Appointments Date Time Provider Department [place] 08/23/2018 12:30 PM David Chávez MD SPP[facility] SPINE 09/13/2018 8:00 AM Gunnar Kirk MD [facility] IM 09/26/2018 9:20 AM Yanet Cormier MD [facility] Neuro 10/08/2018 10:20 AM [facility] --- in this encounter Miscellaneous Notes * Assessment & Plan Note - Sandra Wayne MD - 08/19/2018 12:40 PM CDT Associated Problem(s): Type 1 diabetes mellitus with complication (HCC) -current regimen Treseba 15U qhs and Humalog 4U q4h plus SSI -managed by PCP -has had labile BS ranging 30s-500s -symptoms of increased thirst and polyuria -HA1C 11.4% on 07/19/18 - under poor control -has appt to establish with endocrine in Sep 2018 -will refer to diabetic nurse educator due to confusion over SSI * Assessment & Plan Note - Sandra Wayne MD - 08/19/2018 12:37 PM CDT Associated Problem(s): LAD (lymphadenopathy), axillary -noted on CT chest while in the hospital -none noted on exam today -olson-positive ROS -mammogram Nov 2017 normal -tiny calcified nodule on CT chest during hospitalization - patient is a non- smoker, no follow-up needed -obtain outside records prior to ordering further studies * Assessment & Plan Note - Sandra Wayne MD - 08/19/2018 12:36 PM CDT Associated Problem(s): Orthostatic hypotension -episodes of hypotension while in the hospital -orthostatic hypotension without syncope in the office today -recently increased to fludrocortisone 0.3mg and taking at night - managed by her PCP -has appointment with PCP today for repeat BP check and dose adjustment, will defer management to him * Assessment & Plan Note - Sandra Wayne MD - 08/19/2018 12:35 PM CDT Associated Problem(s): Immunosuppression due to drug therapy -on Plaquenil for arthritis - uncertain diagnosis -patient states she receives this medication from her PCP -follows with [facility] -obtain outside records -high-dose flu vaccine today * Assessment & Plan Note - Sandra Wayne MD - 08/19/2018 12:32 PM CDT Associated Problem(s): Healthcare maintenance -Age appropriate anticipatory guidance given -Vaccinations: -Td/Tdap vaccine: obtain outside records -Flu vaccine: due, will give today -Pneumococcal vaccine: obtain outside records -Shingles vaccine: obtain outside records -Colon Cancer screening: colonoscopy done 2011, will obtain outside records to determine follow-up interval -Breast cancer screening: done Nov 2017 -Cervical Cancer screening: due -Lung Cancer screening: not indicated based on age/risk -Osteoporosis: not indicated based on age/risk -BMI: Discussed patient's BMI with her. The body mass index is 23.46 kg/m. and falls within the category of Acceptable (19 to <25); BMI plan is in progress. -Depression: PHQ2 screen done on 08/19/18 -Tobacco/Alcohol: never smoker -HTN/HLD: BP at goal, obtain outside records for HLD screening -DM: diagnosed with T1DM -Hepatitis: obtain outside records -HIV: obtain outside records -Eye exam: counseled on regular eye exams. Follows [facility], saw them last in 2016 * Assessment & Plan Note - Sandra Wayne MD - 08/19/2018 12:27 PM CDT Associated Problem(s): Acquired hypothyroidism -TSH low 08/04 with normal T4 -continue levothyroxine 175mcg for now, repeat level in 6 weeks if patient decides to follow with our clinic * Assessment & Plan Note - Sandra Wayne MD - 08/19/2018 12:25 PM CDT Associated Problem(s): Chronic abdominal pain -multiple admissions and ER visit -has follow-up with GI scheduled -on tizanidine, sucralafate, promethazine, Lyrica, Miralax, PPI, zofran ODT, and GI cocktail -has had normal emptying study -normal cortisol stim test during recent admission -patient with hyperpigmented skin -question whether she could have polyglandular autoimmune syndrome type 2 given T1DM & hypothyroidism - will follow-up endo recommendations and consider Celiac screen if not already done * Assessment & Plan Note - Sandra Wayne MD - 08/19/2018 12:23 PM CDT Associated Problem(s): Anxiety -Generalized anxiety, not well controlled -patient on Xanax 1mg qhs PRN as well as Ambien -also on Ativan for possible seizures -on duloxetine for depression, anxiety, and pain -managed by PCP in [place], [place] -discussed with patient that she would need to establish with psychiatry ( referral pending, was ordered in the hospital) due to need for multiple medications with uncontrolled symptoms -obtain outside records in this encounter Plan of Treatment Name Priority Associated Diagnoses Order Schedule AMB REFERRAL TO DIABETIC EDUCATION Routine Type 1 diabetes mellitus Ordered: 08/19/2018 with complication (HCC) as of this encounter Visit Diagnoses Diagnosis Type 1 diabetes mellitus with complication (HCC) - Primary Type I (juvenile type) diabetes mellitus with unspecified complication, not stated as uncontrolled Healthcare maintenance Routine general medical examination at a health care facility Orthostatic hypotension Immunosuppression due to drug therapy Influenza vaccine needed Need for prophylactic vaccination and inoculation against influenza Anxiety Anxiety state, unspecified Chronic abdominal pain Abdominal pain, unspecified site Acquired hypothyroidism Unspecified hypothyroidism LAD (lymphadenopathy), axillary Enlargement of lymph nodes
--- OUTSIDE RECORDS SUMMARY | 2018-08-19 23:02 | XMS REPORT | Clinical Summary ---
Author Author [facility] Organization [facility] Address Unknown Phone Unavailable Care Team Providers Care Program Director Group Work Name Role Phone Charles Chau MD Unavailable Migue Patton MD PCP Sandra Wayne MD 3 Source Comments Some departments are not documenting in the electronic medical record. If you do not see the information that you expected, contact Release of Information in the Health Information Management department at [phone] for further assistance in locating additional records.[facility] Allergies Active Allergy Reactions Severity Noted Date Comments Sulfa (Sulfonamide UNKNOWN Low 07/18/2018 Antibiotics) Current Medications Prescription Sig. Disp. Refills Start End Date Status Date insulin degludec (TRESEBA Inject 15 Units under the Active SOLOSTAR) 100 unit/mL [...] tablet 6 hours as needed. fludrocortisone Take 0.3 mg by mouth Active (FLORINEF) 0.1 mg [...] 17 g packet daily. [address] (AMY) Take three capsules by 30 capsule 1 [...] and 10 units with dinner. dulox[address] (AMY) Take 60 mg by mouth twice 07/22/20 Discontin 60 mg capsule daily. 18 ued HYDROcodone/acetaminophen Take 1 tablet by mouth 07/22/20 Discontin (+) (NORCO) 10/325 mg every 6 hours as needed 18 ued tablet for Pain amphetamine-dextroampheta Take 40 mg by mouth every 07/22/20 Discontin mine XR (ADDERALL XR) 20 morning 18 ued mg capsule estrogens, conjugated Take 0.625 mg by mouth 07/22/20 Discontin (PREMARIN) 0.625 mg daily. 18 ued tablet Active Problems Problem Noted Date Healthcare maintenance 08/19/2018 Last Assessment & Plan: -Age appropriate anticipatory guidance given -Vaccinations: -Td/Tdap [...] exam: counseled on regular eye exams. Follows w [facility], saw them last in 2016 Orthostatic hypotension 08/19/2018 Last Assessment & Plan: -episodes of hypotension while in the hospital -orthostatic hypotension without syncope in the office today -recently increased to fludrocortisone 0.3mg and taking at night - managed by her PCP -has appointment with PCP today for repeat BP check and dose adjustment, will defer management to him Immunosuppression due to drug therapy 08/19/2018 Last Assessment & Plan: -on Plaquenil for arthritis - uncertain diagnosis -patient states she receives this medication from her PCP -follows with [facility] -obtain outside records -high-dose flu vaccine today Acquired hypothyroidism 08/19/2018 Last Assessment & Plan: -TSH low 08/04 with normal T4 -continue levothyroxine 175mcg for now, repeat level in 6 weeks if patient decides to follow with our clinic LAD (lymphadenopathy), axillary 08/19/2018 Last Assessment & Plan: -noted on CT chest while in the hospital -none noted on exam today -olson-positive ROS -mammogram Nov 2017 normal -tiny calcified nodule on CT chest during hospitalization - patient is a non-smoker, no follow-up needed -obtain outside records prior to ordering further studies Chronic abdominal pain 07/19/2018 Last Assessment & Plan: -multiple admissions and ER visit -has follow-up [...] consider Celiac screen if not already done Other dysphagia 07/18/2018 Other constipation 07/18/2018 Intractable cyclical vomiting with nausea 07/18/2018 Gastritis 07/18/2018 Type 1 diabetes mellitus with complication (HCC) 07/18/2018 Last Assessment & Plan: -current regimen Treseba 15U qhs and Humalog 4U q4h plus SSI -managed by PCP -has had labile BS ranging 30s-500s -symptoms of increased thirst and polyuria -HA1C 11.4% on 07/19/18 - under poor control -has appt to establish with endocrine in Sep 2018 -will refer to diabetic nurse educator due to confusion over SSI Dysthymia 07/18/2018 Anxiety 07/18/2018 Last Assessment & Plan: -Generalized anxiety, not well controlled -patient on Xanax 1mg qhs PRN as well as Ambien -also on Ativan for possible seizures -on duloxetine for depression, anxiety, and pain -managed by PCP in [place], [place] -discussed with patient that she would need to establish with psychiatry (referral pending, was ordered in the hospital) due to need for multiple medications with uncontrolled symptoms -obtain outside records Migraine with aura and with status migrainosus, not intractable 07/18/2018 Epigastric pain 07/18/2018 Encounters Date Type Specialty Care Team Description 08/19/2018 Office Visit General Internal Medicine Sandra Wayne MD Type 1 diabetes mellitus with complication (HCC) (Primary Dx); Healthcare maintenance; Orthostatic hypotension; Immunosuppression due to drug therapy; Influenza vaccine needed; Anxiety; Chronic abdominal pain; Acquired hypothyroidism; LAD (lymphadenopathy), axillary 08/04/2018 Emergency Emergency Medicine Hoa Sarkar MD 07/29/2018 Telephone Gastroenterology Balbina Matamoros, Appointment 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 INSTRUCTOR-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 DEVELOPER 07/24/2018 Emergency Emergency Medicine 07/23/2018 Telephone Gastroenterology Balbina Matamoros, Prior Authorization GERMAN INSTRUCTOR-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 DEVELOPER (Ondansetron ) 07/19/2018 [facility] Hoa Sarkar MD Chronic abdominal pain - Encounter Jimbo Gordon DO 07/22/2018 Sandra Ho MD 07/19/2018 Procedure Pass 07/19/2018 Procedure Pass 07/19/2018 Procedure Pass 07/18/2018 Office Visit Gastroenterology Balbina Matamoros, Abdominal pain, GERMAN INSTRUCTOR-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 DEVELOPER unspecified abdominal location (Primary Dx); Other dysphagia; Other constipation; Intractable cyclical vomiting with nausea; Gastropathy; Type 1 diabetes mellitus with complication (HCC); Dysthymia; Anxiety; Migraine with aura and with status migrainosus, not intractable; Epigastric pain from Last 3 Months Immunizations Name Dates Previously Given Next Due Flu Vaccine=>67 YO 08/19/2018 High-Dose (PF) Family History Medical History Relation Name Comments [...] Pulse 94 08/19/2018 9:01 AM CDT Temperature 36.9 C (98.4 F) 08/04/2018 4:21 PM CDT Respiratory Rate 16 08/19/2018 8:50 AM CDT Oxygen Saturation 94% 08/04/2018 9:00 PM CDT Inhaled Oxygen - - Concentration Weight 64 kg (141 lb) 08/19/2018 8:50 AM CDT Height 165.1 cm (5' 5") 08/19/2018 8:50 AM CDT Body Mass Index 23.46 08/19/2018 8:50 AM CDT Plan of Treatment Health Maintenance Due Date Last Done Comments HEPATITIS C SCREENING 1962 PHYSICAL (COMPREHENSIVE) 1969 EXAM PERTUSSIS VACCINE 1973 HIV SCREENING 1977 TETANUS VACCINE 1979 FOOT EXAM 1980 MICROALBUMIN 1980 PNEUMONIA VACCINE (DM) 1980 CERVICAL CANCER SCREENING 1992 SHINGLES RECOMBINANT 2012 VACCINE (1 of 2) COLORECTAL CANCER 2018 2013 (Previously completed) SCREENING INFLUENZA VACCINE 06/19/2018 DILATED EYE EXAM 09/19/2018 09/19/2017 (Previously completed) BREAST CANCER SCREENING 11/19/2018 11/19/2017 (Previously completed) HBA1C 01/16/2019 07/19/2018 Procedures Procedure Name Priority Date/Time Associated Diagnosis Comments ECG-SCAN 08/06/2018 Results for this 12:45 PM CDT procedure are in the results section. URINALYSIS, MICROSCOPIC STAT 08/04/2018 Results for this [...] in the results section. ANTI MANSFIELD(SM) ANTI RADAR SCIENTIST Routine 07/21/2018 Results for this AB 5:58 [...] section. from Last 3 Months Results * ECG-SCAN (08/06/2018 12:45 PM) Narrative Performed At Ordered by an unspecified provider. * URINALYSIS, MICROSCOPIC (08/04/2018 7:12 PM) Only [...] City/State/Zipcode Phone Number [facility] [address] [place] [address] * URINALYSIS DIPSTICK (08/04/2018 7:12 PM) Only the most recent of 4 results within the time period is included. Color,UA YELLOW [facility] Turbidity,UA CLEAR CLEAR-CLEAR [facility] Specific Hoffman-Urine 1.020 1.003 - 1.035 [facility] [...] Address City/State/Zipcode Phone Number [facility] [address] [place] [address] * CHEST SINGLE VIEW (08/04/2018 5:10 PM) [...] on 08/05/2018 7:27 AM. Performing Organization Address City/[facility] Phone Number RAD RESULTS * FREE T4-FREE THYROXINE (08/04/2018 4:46 PM) T4-Free 1.1 0.6 - 1.6 NG/DL MAIN LAB Performing Organization Address [facility] Phone Number MAIN LAB [address] [place] [address] * TSH WITH FREE T4 REFLEX (08/04/2018 4:46 PM) Only the most recent of 2 results within the time period is included. TSH 0.330 (L) 0.35 - 5.00 MCU/ML MAIN LAB Specimen Blood Performing Organization Address [facility] Phone Number MAIN LAB [address] [place] [phone] * POC TROPONIN (08/04/2018 4:46 PM) Only the most recent of 2 results within the time period is included. Mxgjrnzy-X-JEP 0.02 0.00 - 0.05 NG/ML MAIN LAB Performing Organization Address [facility] Phone Number [employer] [facility] [address] [place] [address] * POC GLUCOSE (08/04/2018 4:46 PM) Only the most recent of 17 results within the time period is included. Glucose, POC 212 (H) 70 - 100 MG/DL MAIN LAB Performing Organization Address [facility] Phone Number [employer] MAIN [facility] [address] [place] [address] * CBC AND DIFF (08/04/2018 4:46 PM) Only the most recent of 5 results within the time period is included. White Blood Cells 12.5 (H) 4.5 - 11.0 K/[facility]IN [facility] RBC 4.17 4.0 - 5.0 M/UL MAIN LAB Hemoglobin 11.2 (L) 12.0 - [...] Address City/State/Zipcode Phone Number [facility] [address] [place] [address] * COMPREHENSIVE METABOLIC PANEL (08/04/2018 4:46 PM) [...] for questions. Specimen Blood Performing Organization Address City/[facility]/Zipcode Phone Number MAIN LAB [address] [place] [address] * TELEMETRY STRIPS-SCAN (07/25/2018 10:18 AM) Narrative Performed At Ordered by an unspecified provider. * LIPASE (07/24/2018 6:02 PM) Only the most recent of 2 results within the time period is included. Lipase 13 11 - 82 U/L MAIN LAB Specimen Blood Performing Organization Address [facility] Phone Number MAIN [facility] [address] [place] [address] * ECG-SCAN (07/21/2018 1:09 PM) Narrative Performed At Ordered by an unspecified provider. * CORTISOL 60 MINUTES POST (07/21/2018 10:10 AM) Cortisol 60 Min 22.6 ug/dL [facility] Specimen Blood Performing Organization Address [facility] Phone Number [employer] MAIN [facility] [address] [place] [address] * CORTISOL 30 MINUTES POST (07/21/2018 9:30 AM) Cortisol 30 Min 19.4 ug/dL [facility] Specimen Blood Performing Organization Address City/[facility]/Zipcode Phone Number [facility] [address] [place] [address] * CORTISOL BASELINE (07/21/2018 8:40 AM) Cortisol Baseline 13.6 ug/dL [facility] Specimen Blood Performing Organization Address City/[facility]/Zipcode Phone Number [employer] MAIN [facility] [address] [place] [address] * ACTH (07/21/2018 8:40 AM) Adrenocorticotropic 73 (H) REFERENCE LAB Hormone Comment: Unit: pg/mL REFERENCE VALUE - 7.2-63 (a.m. collection) [facility], [address] [place] [id number] Specimen Blood Performing Organization Address [facility]ode Phone Number REFERENCE LAB REFERENCE LAB See results for address. * CARBAMAZEPINE LEVEL (07/21/2018 8:40 AM) Carbamazepine 3.2 (L) 6.0 - 10.0 MCG/ML MAIN LAB Specimen Blood Performing Organization Address [facility] Phone Number [facility] [address] [place] [address] * RHEUMATOID FACTOR (RF) (07/21/2018 5:58 AM) Rheum Factor Screen <20 <24 IU/mL MAIN LAB Specimen Blood Performing Organization Address [facility] Phone Number [facility] [address] [place] [address] * PERIPHERAL SMEAR (07/21/2018 5:58 AM) Peripheral Smear Microcytic, hypochromic red [facility] cells. Consider iron deficiency anemia, anemia of chronic disease, thalassemia, and sideroblastic anemia. MILD EOSINOPHILIA. PLATELETS APPEAR NORMAL IN NUMBER AND MORPHOLOGY. Pathologist Signature INTERPRETED BY CHONG ROYAL [facility] BLU [place] By the PATH SIGNATURE ABOVE, I attest that I have personally formulated the final interpretation expressed in this report and that the above diagnosis is based upon my examination of the slides and/or other material indicated in this report. Specimen Blood Performing Organization Address [facility] Phone Number [facility] [address] [place] [address] * ANTI MANSFIELD(SM) ANTI RADAR SCIENTIST AB (07/21/2018 5:58 AM) Anti-Mansfield <0.2Comment: Interpretation: <1.0 [facility] MAIN [facility] Negative Anti-RADAR SCIENTIST <0.2Comment: Interpretation: <1.0 [facility] Negative Specimen Blood Performing Organization Address [facility] Phone Number MAIN LAB [address] [place] [address] * SCL 70 ANTIBODIES (07/21/2018 5:58 AM) SCL70 Ab <0.2 <1.0 [facility] Comment: Interpretation: Negative NOTE NEW METHODOLOGY AND REFERENCE RANGE Specimen Blood Performing Organization Address [facility] Phone Number MAIN LAB [address] [place] [address] * ANTI-DNA DOUBLE STRAND (07/21/2018 5:58 AM) DNA Double Strand AB <10 <10 [facility]IN [facility] Specimen Blood Performing Organization Address [facility] Phone Number MAIN LAB [address] [place] [address] * CENTROMERE ANTIBODIES (07/21/2018 5:58 AM) Centromere Antibody <0.2 <1.0 [facility] Comment: Interpretation: Negative NOTE NEW METHODOLOGY AND REFERENCE RANGE Specimen Blood Performing Organization Address [facility] Phone Number MAIN LAB [address] [place] [address] * CCP IGG ANTIBODY (07/21/2018 5:58 AM) CCP IgG Antibody <0.5Comment: NOTE NEW <3.0 [IU]/mL [facility] METHODOLOGY AND REFERENCE RANGE Specimen Blood Performing Organization Address [facility] Phone Number MAIN LAB [address] [place] [address] * ANTI SSA ANTI SSB AB (07/21/2018 5:58 AM) Anti-SSA <0.2Comment: Interpretation: <1.0 [facility]IN [facility] Negative Anti-SSB 0.2Comment: Interpretation: <1.0 [facility] MAIN [facility] Negative Specimen Blood Performing Organization Address [facility] Phone Number MAIN LAB [address] [place] [address] * ANTI-NUCLEAR ANTIBODY(HERNAN) (07/21/2018 5:58 AM) HERNAN Screen <80 <80 [facility] MAIN LAB Specimen Blood Performing Organization Address [facility] Phone Number MAIN LAB [address] [place] [address] * CBC (07/20/2018 5:30 AM) White Blood [...] LAB MPV 9.1 7 - 11 FL [facility] Specimen Blood Performing Organization Address City/[facility] Phone Number MAIN LAB [address] [place] [phone] * PHOSPHORUS (07/20/2018 5:30 AM) Only the most recent of 2 results within the time period is included. Phosphorus 4.4 (H) 2.0 - 4.0 MG/DL MAIN LAB Specimen Blood Performing Organization Address [facility] Phone Number MAIN [facility] [address] [place] [phone] * MAGNESIUM (07/20/2018 5:30 AM) Only the most recent of 2 results within the time period is included. Magnesium 2.1 1.6 - 2.6 mg/dL MAIN LAB Specimen Blood Performing Organization Address [facility] Phone Number [facility] [address] [place] [address] * IRON + BINDING CAPACITY + %SAT+ FERRITIN (07/19/2018 5:00 PM) Iron 24 (L) 50 - 160 MCG/DL [facility] Iron Binding-TIBC 383 (H) 270 - 380 MCG/DL MAIN LAB % Saturation 6 (L) 28 - 42 % [facility] Ferritin 6 (L) 10 - 200 NG/ML MAIN LAB Specimen Blood Performing Organization Address [facility] Phone Number MAIN LAB [address] [place] [address] * IMMUNOGLOBULIN E (IGE) (07/19/2018 5:00 PM) IgE 24 <165 IU/ML MAIN LAB Specimen Blood Performing Organization Address [facility] Phone Number MAIN LAB [address] [place] [address] * FOLATE, SERUM (07/19/2018 5:00 PM) Serum Folate 15.7Comment: NOTE NEW >3.9 NG/ML MAIN LAB REFERENCE RANGES Specimen Blood Performing Organization Address City/[facility] Phone Number MAIN LAB [address] [place] [address] * VITAMIN B12 (07/19/2018 5:00 PM) Vitamin B12 751 180 - 914 PG/ML MAIN LAB Specimen Blood Performing Organization Address [facility] Phone Number MAIN LAB [address] [place] [address] * CORTISOL-AM (07/19/2018 5:00 PM) Cortisol-AM 6.3 (L) 6.7 - 22.6 MCG/DL MAIN LAB Specimen Blood Performing Organization Address [facility] Phone Number MAIN LAB [address] [place] [address] * CORTISOL,RANDOM (07/19/2018 6:20 AM) Cortisol, Random 2.8 (L) 5.0 - 20.0 MCG/DL MAIN LAB Specimen Blood Performing Organization Address [facility] Phone Number MAIN LAB [address] [place] [address] * SED RATE (07/19/2018 6:20 AM) Sed Rate -ESR 5 0 - 30 MM/HR MAIN LAB Specimen Blood Performing Organization Address [facility] Phone Number MAIN LAB [address] [place] [address] * C REACTIVE PROTEIN (CRP) (07/19/2018 6:20 AM) C-Reactive Protein 0.33 <1.0 MG/DL MAIN LAB Specimen Blood Performing Organization Address [facility] Phone Number MAIN LAB [address] [place] [address] * HEMOGLOBIN A1C (07/19/2018 6:20 AM) Hemoglobin A1C 11.4 (H) 4.0 - 6.0 % [facility] Comment: The ADA recommends that most patients with type 1 and type 2 diabetes maintain an A1c level <7%. Specimen Blood Performing Organization Address City/State/Zipcode Phone Number MAIN LAB [address] [place] [address] * AMYLASE (07/19/2018 6:20 AM) Amylase 43 24 - 100 U/L [facility] Specimen Blood Performing Organization Address City/[facility] Phone Number MAIN LAB [address] [place] [address] * CRITICAL CARE (07/19/2018 4:00 AM) Narrative [...] axillary lymphadenopathy, slightly greater on the left. Shop Assistant left axillary lymph node measures 2.5 x [...] bilateral external iliac and inguinal lymph nodes. Shop Assistant right external iliac lymph node measures 2.4 [...] axillary lymphadenopathy, slightly greater on the left. Shop Assistant left axillary lymph node measures 2.5 x [...] of normal in size with an elongated Vciky's lobe. Focal steatosis along the falciform ligament. [...] bilateral external iliac and inguinal lymph nodes. Shop Assistant right external iliac lymph node measures 2.4 [...] axillary lymphadenopathy, slightly greater on the left. Shop Assistant left axillary lymph node measures 2.5 x [...] bilateral external iliac and inguinal lymph nodes. Shop Assistant right external iliac lymph node measures 2.4 [...] axillary lymphadenopathy, slightly greater on the left. Shop Assistant left axillary lymph node measures 2.5 x [...] bilateral external iliac and inguinal lymph nodes. Shop Assistant right external iliac lymph node measures 2.4 [...] on 07/19/2018 2:19 AM. Performing Organization Address City/[facility] Phone Number RAD RESULTS * POC CREATININE, RAD (07/19/2018 2:03 AM) Creatinine, POC 1.2 (H) 0.4 - 1.00 MG/DL [facility] Performing Organization Address [facility] Phone Number MAIN LAB [address] [place] [address] * ECG-SCAN (07/19/2018 2:00 AM) Narrative Performed At Ordered by an unspecified provider. * POC LACTATE (07/19/2018 2:00 AM) LACTIC ACID POC 1.4 0.5 - 2.0 MMOL/L [facility] Performing Organization Address [facility] Phone Number MAIN LAB [address] [place] [address] * CULTURE-BLOOD W/SENSITIVITY (07/19/2018 1:40 AM) Only the most recent of 2 results within the time period is included. Battery Name BLOOD CULTURE MAIN LAB Specimen Description BLOOD [facility] LEFT UA Special Requests NONE [facility] Culture NO GROWTH 5 DAYS [facility] Report Status FINAL [facility] 07/25/2018 Specimen Blood Performing Organization Address [facility] Phone Number MAIN LAB [address] [place] [address] from Last 3 Months
--- OUTSIDE RECORDS SUMMARY | 2018-08-19 23:03 | XMS REPORT | Encounter Summary ---
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
--- OUTSIDE RECORDS SUMMARY | 2018-08-19 23:03 | XMS REPORT | Encounter Summary ---
Author Author [facility] Organization [facility] Address Unknown Phone Unavailable Care Team Providers Care Ediscovery Project Manager Name Role Phone Charles Chau MD Unavailable Migue Patton MD PCP Reason for Visit * Reason Comments Chest Pain intermittent since yesterday, associated dizziness, Encounter Details Date Type Department Care Team Description 08/04/2018 Emergency Emergency Dept. Hoa Zhao MD [address] [place] [address] [place] [address] [phone] Social History Tobacco Use Types Packs/Day Years [...] as of this encounter Discharge Instructions * Hoa Zhao MD - 08/04/2018 Formatting of this note may be different from the original. Self-Care for Headaches Most headaches aren't serious and can be relieved with self-care. But some headaches may be a sign of another health problem like eye trouble or high blood pressure. To find the best treatment, learn what kind of headaches you get. For tension headaches, self-care will usually help. To treat migraines, ask yourhealthcare providerfor advice. It is also possible to get both tension and migraine headaches. Self-care involves relieving the pain and avoiding headache triggers if you can. Ways to reduce pain and tension Try these steps: Apply a cold compress or ice pack to the pain site. Drink fluids. If nausea makes it hard to drink, try sucking on ice. Rest. Protect yourself from bright light and loud noises. Calm your emotions by imagining a peaceful scene. Massage tight neck, shoulder, and head muscles. To relax muscles, soak in a hot bath or use a hot shower. Use medicines Aspirin or other vwpn-cgg-abttysr pain medicines, such as ibuprofen and acetaminophen, can relieve headache. Remember: Never give aspirin to anyone 18 years old or younger because of the risk of developing Tomasz syndrome. Use pain medicines only when needed. Certain prescription medicines, if taken too often, can lead to rebound headaches. Check with your healthcare provider or pharmacist about your medicines. Track your headaches Keeping a headache diary can help you and yourhealthcare provideridentify what's causing your headaches: Note when each headache happens. Identify your activities and the foods you've eaten6 to 8hours before the headache began. Look for any trends or "triggers." Signs of tension headache Any of the following can be signs: Dull pain or feeling of pressure in a tight band around your head Pain in your neck or shoulders Headache without a definite beginning or end Headache after an activity such as driving or working on a computer Signs of migraine Any of the following can be signs: Throbbing pain on one or both sides of your head Nausea or vomiting Extreme sensitivity to light, sound, and smells Bright spots, flashes, or other visual changes Pain or nausea so severe that you can't continue your daily activities Call yourhealthcare provider If you have any of the following symptoms, contact your healthcare provider: A headache that lingers after a recent injury or bump to the head. A fever with a stiff neck or pain when you bend your head toward your chest. A headache along with slurred speech, changes in your vision, or numbness or weakness in your arms or legs. A headache for longer than3 days. Frequent headaches,especially in the morning. Headaches with seizures Seek immediate medical attention if you have a headache that you would call "the worst headache you have ever had." Date Last Reviewed: 01/17/201819998262-8416 [employer]. [address] [place] [address]. All rights reserved. This information is not intended as a substitute for professional medical care. Always follow your healthcare professional's instructions. Viral Upper Respiratory Illness (Adult) You have a viral upper respiratory illness (URI), which is another term for the common cold. This illness is contagious during the first few days. It is spread through the air by coughing and sneezing. It may also be spread by direct contact (touching the sick person and then touching your own eyes, nose, or mouth). Frequent handwashing will decrease risk of spread. Most viral illnesses go away within 7 to 10 days with rest and simple home remedies. Sometimes the illness may last for several weeks. Antibiotics will not kill a virus, and they are generally not prescribed for this condition. Home care If symptoms are severe, rest at home for the first 2 to 3 days. When you resume activity, don't let yourself get too tired. Don't smoke. If you need help stopping, talk with your healthcare provider. Avoid being exposed to cigarette smoke (yours or others). You may use acetaminophen or ibuprofen to control pain and fever, unless another medicine was prescribed.If you have chronic liver or kidney disease, have ever had a stomach ulcer or gastrointestinal bleeding, or are taking blood- thinning medicines, talk with your healthcare provider before using these medicines. Aspirin should never be given to anyone under 18 years of age who is ill with a viral infection or fever. It may cause severe liver or brain damage. Your appetite may be poor, so a light diet is fine. Stay well hydrated by drinking 6 to 8 glasses of fluids per day (water, soft drinks, juices, tea, or soup). Extra fluids will help loosen secretions in the nose and lungs. Ojyn-igv-fqqzink cold medicines will not shorten the length of time youre sick, but they may be helpful for the following symptoms: cough, sore throat, and nasal and sinus congestion. If you take prescription medicines, ask your healthcare provider or pharmacist which uhwg-tzp-rnozadt medicines are safe to use. (Note: Don't use decongestants if you have high blood pressure.) Follow-up care Follow up with your healthcare provider, or as advised. When to seek medical advice Call your healthcare provider right away if any of these occur: Cough with lots of colored sputum (mucus) Severe headache; face, neck, or ear pain Difficultyswallowingdue to throat pain Fever of 100.4F (38C) or higher, or as directed by your healthcare provider Call 911 Call 911 if any of these occur: Chest pain, shortness of breath, wheezing, or difficulty breathing Coughing up blood Very severe pain with swallowing, especially if it goes along with a muffled voice Date Last Reviewed: 04/19/201819990653-6359 [employer]. [address] [place] [address]. All rights reserved. This information is not intended as a substitute for professional medical care. Always follow your healthcare professional's instructions. in this encounter Medications at Time of [...] daily. (TOVIAZ) 4 mg tablet fludrocortisone Take 0.3 mg by mouth (FLORINEF) 0.1 mg tablet daily. fluticasone (FLONASE) 50 Apply to each nostril as mcg/actuation nasal spray directed daily. Shake bottle gently before using. glucagon,human Inject 1 Units to area(s) recombinant (GLUCAGEN as directed as Needed. DIAGNOSTIC KIT IJ) hydroxychloroquine Take 200 mg by mouth (PLAQUENIL) 200 mg tablet daily. Take with food. insulin degludec (TRESEBA Inject 15 Units under the SOLOSTAR) 100 unit/mL (3 [...] of this encounter Miscellaneous Notes * ED Provider Notes - Hoa Zhao MD - 08/04/2018 10:00 PM CDT Formatting of this note may be different from the original. Chelsea Castillo is a 58 y.o. female. Chief Complaint: Chief Complaint Patient presents with Chest Pain intermittent since yesterday, associated dizziness, History of Present Illness: HPI Patient is a 58-year-old female who comes to the emergency department with multiple complaints including cough, generalized abdominal pain, headache, chest pain. She states that she has had a cough with congestion, rhinorrhea, sore throat for the last couple of days. She states that over the last day she has developed generalized chest pain that is associated with her cough. In addition she states she has a headache. She states she has had headaches like this in the past. She also complains of generalized abdominal pain, and states that she has a chronic issue with this abdominal pain. The patient is awake, alert, and oriented. The nursing assessment states that the patient is lethargic, however when I am assessing the patient she does not appear to be lethargic and is awake and appropriately answering questions. Review of Systems: Review of Systems Constitutional: Positive for fatigue. Negative for fever. HENT: Positive for congestion, rhinorrhea and sore throat. Eyes: Negative for discharge. Respiratory: Positive for cough. Negative for shortness of breath. Cardiovascular: Positive for chest pain. Gastrointestinal: Positive for abdominal pain and nausea. Negative for vomiting. Genitourinary: Negative for dysuria. Musculoskeletal: Negative. Skin: Negative. Neurological: Positive for dizziness and headaches. Allergies: Sulfa (sulfonamide antibiotics) Past Medical History: [...] T BP P RR SPO2P SPO2 User 08/04/18 2100 -- 130/70 68 15 PER MINUTE 68 94 % DL 08/04/182029 -- 134/70 68 15 PER MINUTE -- 96 % 08/04/181999 -- 134/75 69 17 PER MINUTE -- 97 % 08/04/18 1930 -- 126/71 69 15 PER MINUTE -- 96 % 08/04/18 190 -- -- -- 17 PER MINUTE -- 97 % 08/04/18 1900 -- 112/69 70 17 PER MINUTE -- 94 % 08/04/18 1845 -- 120/65 70 17 PER MINUTE 70 96 % 08/04/18 1830 -- 104/62 71 19 PER MINUTE 71 96 % 08/04/18 1815 -- 109/68 74 19 PER MINUTE 74 97 % 08/04/18 1800 -- 101/66 73 18 PER MINUTE 72 95 % 08/04/18 1730 -- 107/68 73 19 PER MINUTE 73 95 % 08/04/18 1715 -- 107/65 73 9 PER MINUTE 73 96 % 08/04/18 1700 -- 91/63 76 21 PER MINUTE 71 98 % 08/04/18 1639 -- 100/60 75 21 PER MINUTE 75 99 % 08/04/18 1636 -- 104/67 76 21 PER MINUTE 76 99 % 08/04/18 1633 -- 126/71 76 19 PER MINUTE 76 97 % 08/04/18 1630 -- 90/50 -- -- 80 95 % 08/04/18 1621 36.9 C (98.4 F) (!) 59/35 -- 16 PER MINUTE 76 98 % KG Physical Exam: Physical Exam Nursing Note and Vitals reviewed GENERAL: The patient is in no acute distress. Appears non-toxic and stable. Resembles stated age. HEAD: No visible trauma or deformities. EYES: Extraocular muscles are intact. ENT. Mucous membranes are dry. Nares are patent. NECK: Trachea is midline. LUNGS: Lungs are clear to auscultation bilaterally: no wheezing, no rhonchi. Breathing is nonlabored without retractions. CARDIOVASCULAR: Regular rate, normal rhythm with normal S1-S2 cardiac sounds. 2 + bilateral radial pulses. Capillary refill is less than 3 seconds. GI: Soft, generalized tenderness palpation, nondistended. No guarding or rebound. MUSCULOSKELETAL: Patient has spontaneous movement of both upper and lower extremities bilaterally. NEUROLOGICAL: Alert and oriented x 3. No focal neurological deficits noted. SKIN: Warm, dry Laboratory Results: No results found for this visit on 08/04/18 (from the past 24 hour(s)). POC Glucose (Download): (!) 212 Radiology Interpretation: CHEST SINGLE VIEW Final Result No acute cardiopulmonary abnormality. Approved by Quincy Baxter M.D. on 08/05/2018 8:26 AM By my electronic signature, I attest that I have personally reviewed the images for this examination and formulated the interpretations and opinions expressed in this report Finalized by Kings Flores M.D. on 08/05/2018 11:18 AM. Dictated by Quincy Baxter M.D. on 08/05/2018 7:27 AM. EKG: Sinus rhythm heart rate 77 GA 160, QRS 80, QTc [address] segment changes Interpretation sinus rhythm, similar to previous EKG ED Course: Patient is a 58-year-old female who comes in with multiple complaints including cough, chest pain, generalized abdominal pain sinus symptoms. Patient's vital signs are reviewed, her blood pressure in triage was 59/35, she is afebrile and is not tachycardic. A repeat blood pressure that was done 12 minutes later showed that the patient was not hypotensive with blood pressure of 126/71, the patient was not hypotensive during the remainder of her stay in the ER. Given her history and presentation the differential on this patient is broad and includes but is not limited to: URI versus pneumonia versus intra-abdominal pathology versus UTI versus dehydration versus acute on chronic abdominal pain persist headache. The patient has a port if she is a very difficult stick, she is given a liter of IV fluid. An EKG was obtained in triage and is nonischemic. CBC as well as CMP troponin, TSH, and urinalysis are obtained. A chest x-ray is also obtained. Chest x-ray is negative for any acute cardiopulmonary abnormality. CMP is unremarkable, urinalysis is negative for sign of infection and TSH is within normal limits. Troponin is negative. CBC shows a mild leukocytosis of 12.5 but is otherwise unremarkable. The patient was given Compazine, Toradol, Benadryl for headache. She is given a GI cocktail with Pepcid and Protonix for abdominal pain. The patient is reassessed at bedside she is hemodynamically stable and she is sleeping comfortably in the bed. She states that she has had improvement of her symptoms. At this time I think the patient is stable for discharge home. It is possible that her symptoms are related to an upper respiratory infection that is likely viral in etiology. Informed the patient that she would need to follow-up with primary physician within the next few days and that she should return to the emergency department if she develops new or worsening symptoms. The patient and her was at bedside and agree with treatment plan and verbalized understanding. MDM Reviewed: previous chart, nursing note and vitals Reviewed previous: labs and ECG Interpretation: labs, ECG and x-ray Facility Administered Meds: Facility-Administered Medications as of 08/04/2018 Medication Last Dose [COMPLETED] acetaminophen/lidocaine/antacid DS(#) (GI COCKTAIL) 1:1:3 suspension 30 mL 30 mL at 08/04/181758 [] alteplase (CATHFLO ACTIVASE) injection 2 mg [COMPLETED] alteplase (CATHFLO ACTIVASE) injection 2 mg 2 mg at 08/04/18 173 [COMPLETED] aspirin tablet 325 mg 325 mg at 08/04/18 1649 [COMPLETED] diphenhydrAMINE (BENADRYL) injection 25 mg 25 mg at 08/04/18 175 [] famotidine (PEPCID) tablet 20 mg [COMPLETED] ketorolac (TORADOL) injection 30 mg 30 mg at 08/04/181758 [COMPLETED] ondansetron (ZOFRAN) injection 4 mg 4 mg at 08/04/181758 [] pantoprazole DR (PROTONIX) tablet 40 mg [COMPLETED] prochlorperazine (COMPAZINE) injection 10 mg 10 mg at 08/04/181758 [COMPLETED] sodium chloride 0.9 % infusion Stopped at 08/04/182115 [COMPLETED] sodium chloride 0.9 % infusion Stopped at 08/04/182115 Clinical Impression: Final diagnoses: Acute URI (Primary) Nonintractable headache, unspecified chronicity pattern, unspecified headache type Disposition/Follow up Discharge Migue Patton III, MD [address] [facility] [place] [facility] [address] In 3 days Medications: Discharge Medication List as of 08/04/2018 8:32 PM Procedure Notes: Procedures Attestation / Supervision: I personally performed the E/M including history, physical exam, and MDM. Hoa Zhao MD * ED Notes - Pamela Aguirre RN [...] castillo in this encounter Plan of Treatment Not [...] PM CDT in this encounter Results * ECG-SCAN (08/06/2018 12:45 PM) Narrative Performed At Ordered by an unspecified provider. * URINALYSIS, MICROSCOPIC (08/04/2018 7:12 PM) WBCs,UA 0-2 0 - 2 /HPF [facility] RBCs,UA 0-2 0 - 3 /HPF [facility] MucousUA TRACE [facility] Squamous Epithelial Cells 0-2 0 - 5 [facility] Hyaline Cast 5-10 [facility] Specimen Urine - Urine Performing Organization Address City/State/Zipcode Phone Number [facility] [address] [place] [address] * URINALYSIS DIPSTICK (08/04/2018 7:12 PM) Color,UA YELLOW [facility] Turbidity,UA CLEAR CLEAR-CLEAR [facility] Specific [place]-Urine 1.020 1.003 - 1.035 [facility] [...] Specimen Urine - Urine Performing Organization Address City/[facility] Phone Number [facility] [address] [place] [address] * CHEST SINGLE VIEW (08/04/2018 5:10 PM) [...] on 08/05/2018 7:27 AM. Performing Organization Address City/[facility] Phone Number [facility] RESULTS * FREE T4-FREE THYROXINE (08/04/2018 4:46 PM) T4-Free 1.1 0.6 - 1.6 NG/DL [facility] Performing Organization Address City/[facility] Phone Number [facility] [address] [place] [address] * POC TROPONIN (08/04/2018 4:46 PM) Dkcaqtlm-T-REI 0.02 0.00 - 0.05 NG/ML [facility] Performing Organization Address [facility] Phone Number [facility] [address] [place] [phone] * POC GLUCOSE (08/04/2018 4:46 PM) Glucose, POC 212 (H) 70 - 100 MG/DL [facility] Performing Organization Address [facility] Phone Number [facility] [address] [place] [address] * TSH WITH FREE T4 REFLEX (08/04/2018 4:46 PM) TSH 0.330 (L) 0.35 - 5.00 MCU/ML [facility] Specimen Blood Performing Organization Address [facility] Phone Number [facility] [address] [place] [address] * COMPREHENSIVE METABOLIC PANEL (08/04/2018 4:46 PM) [...] for questions. Specimen Blood Performing Organization Address City/[facility]/Zipcode Phone Number [facility] [address] [place] [address] * CBC AND DIFF (08/04/2018 4:46 PM) [...] MAIN LAB Specimen Blood Performing Organization Address City/[facility]/Zipcode Phone Number [facility] [address] [place] [address] in this encounter Visit Diagnoses Diagnosis Acute [...]
--- OUTSIDE RECORDS SUMMARY | 2018-08-19 23:03 | XMS REPORT | Encounter Summary ---
Author Author [facility] Organization [facility] Address Unknown Phone Unavailable Care Team Providers Care Airplane Coverer Name Role Phone Charles Chau MD Unavailable Migue Patton MD PCP Reason for Visit * Reason Comments Abdominal pain diabetes x 2 days with nausea and diarrhea Released from hospital sunday night for same symptoms. hx of DM, pt reports sugars was 112 about an hour ago Encounter Details Date Type Department Care Team Description 07/24/2018 Emergency Emergency Dept. [address] [place] [address]. [place] [address] Social History Tobacco Use Types Packs/Day Years [...] sent through Care Everywhere.* Headaches, Self-Care for (BURMESE) * Vomiting (Adult) (BURMESE) in this encounter Medications at Time of [...] with neurology tomorrow. History provided by: Patient full time staff interpreter used: No Review of Systems: Review of [...] : Negative QC: Acceptable Urine Lot #: [id number] EKG: NSR at 71 bpm ED Course: The pt was seen and evaluated by Matias Kazmaier, SPECIAL EFFECTS ARTIST Labs were ordered. Pt was given compazine, [...] Disposition/Follow up Discharge Migue Patton III, MD [address] [facility] [address] As needed Dpt [facility], Neurology [address] [facility] [address] In 1 day as scheduled Emergency Dept. [address] [place] [address]. [facility] [address] If symptoms worsen Medications: New Prescriptions No medications on file Procedure Notes: Procedures Attestation / Supervision: Pelra Boyd, acacia scribing for and in the presence of Marcela Berman APRN. Perla Irizarry Attestation / Supervision Note concerning Chelsea Castillo: The service was provided by the HYDROELECTRIC PLANT STRUCTURAL ENGINEER alone with immediate availability of a physician in the ED. and Matias Boyd APRN, personally performed the services described in this documentation as scribed in my presence and it is both accurate and complete. Matias Berman APRN * ED Notes - Jessi Verde RN - 07/24/2018 6:03 PM CDT Pt arrived to ED11 via triage with her at her side. She was discharged from [facility] on Sunday and doctor wanted to keep her another day, but she wanted to go home because she was feeling better. She reports that nausea and vomiting and migraine started last night and they drove here from where they live near [place], [place] as all her doctors are here. [...] Specimen Urine - Urine Performing Organization Address City/State/[facility] Phone Number MAIN LAB [address] [place] [address] * URINALYSIS DIPSTICK (07/24/2018 9:19 PM) Color,UA YELLOW [facility] Turbidity,UA CLEAR CLEAR-CLEAR [facility] Specific [place]-Urine 1.016 1.003 - 1.035 [facility] [...] Specimen Urine - Urine Performing Organization Address [facility] Phone Number MAIN LAB [address] [place] [address] * LIPASE (07/24/2018 6:02 PM) Lipase 13 11 - 82 U/L [facility] Specimen Blood Performing Organization Address [facility] Phone Number [facility] [address] [place] [address] * COMPREHENSIVE METABOLIC PANEL (07/24/2018 6:02 PM) [...] Address City/State/Zipcode Phone Number [facility] [address] [place] [address] * CBC AND DIFF (07/24/2018 6:02 PM) [...] Address City/State/Zipcode Phone Number [facility] [address] [place] [address] in this encounter Visit Diagnoses Diagnosis Acute [...]
--- OUTSIDE RECORDS SUMMARY | 2018-08-19 23:03 | XMS REPORT | Encounter Summary ---
Author Author [facility] Organization [facility] Address Unknown Phone Unavailable Care Team Providers Care Psych Rn Name Role Phone Charles Chau MD Unavailable Migue Patton MD PCP Reason for Visit * Reason Comments Prior Authorization Ondansetron Encounter Details Date Type Department Care Team Description 07/23/2018 Telephone [facility] Balbina Matamoros, Prior Authorization Physicians CYBER POLICY AND STRATEGY PLANNER-IT DESKTOP SUPPORT TECHNICIAN (Ondansetron ) [facility] [address] [place] [address] [phone] [place] [address] Social History Tobacco Use Types [...] CDT Completed [place] for medication Ondansetron through [facility], waiting on approval or denial. in this encounter Plan of Treatment Not on fileas of this encounter Visit Diagnoses Not on filein this encounter
--- OUTSIDE RECORDS SUMMARY | 2018-08-19 23:05 | XMS REPORT | Encounter Summary ---
Author Author [facility] Organization [facility] Address Unknown Phone Unavailable Care Team Providers Care Centrifugal Screen Tender Name Role Phone Charles Chau MD Unavailable Migue Patton MD PCP Sandra Wayne MD 3 Encounter Details Date Type Department Care Team Description 07/19/2018 Procedure [facility] [address] [place] [address] Social History Tobacco Use Types Packs/Day Years [...]
--- OUTSIDE RECORDS SUMMARY | 2018-08-19 23:05 | XMS REPORT | Encounter Summary ---
Author Author [facility] Organization [facility] Address Unknown Phone Unavailable Care Team Providers Care Reinforcement Maker Name Role Phone Charles Chau MD Unavailable Migue Patton MD PCP Sandra Wayne MD 3 Encounter Details Date Type Department Care Team Description 07/19/2018 Procedure [facility] [address] [place] [address] Social History Tobacco Use Types [...]
--- OUTSIDE RECORDS SUMMARY | 2018-08-19 23:05 | XMS REPORT | Encounter Summary ---
Author Author [facility] Organization [facility] Address Unknown Phone Unavailable Care Team Providers Care Piano Assembler Name Role Phone Charles Chau MD Unavailable Migue Patton MD PCP Sandra Wayne MD 3 Encounter Details Date Type Department Care Team Description 07/19/2018 Procedure [facility] [address] [place] [address] Social History Tobacco Use Types [...]
--- OUTSIDE RECORDS SUMMARY | 2018-08-19 23:05 | XMS REPORT | Encounter Summary ---
Author Author [facility] Organization [facility] Address Unknown Phone Unavailable Care Team Providers Care Employee Wellness/Fitness Coordinator Name Role Phone Charles Chau MD Unavailable Rubio Meza MD PCP Reason for Referral * Consult, Test & Treat (Routine) Status Reason Specialty Diagnoses / Referred By Referred To Procedures Contact Contact New Request Specialty Rheumatology Diagnoses Leisa Chamberlain MD [facility] Abdominal pain, [address] Rheumatology Cl Required unspecified [address] [facility] abdominal MS [id number] [address] [place], [place] Phone: [phone] Phone: * (Routine) Status Reason Specialty Diagnoses / Referred By Referred To Procedures Contact Contact New Request Procedures Sandra Ho F/U APPT MD REQUEST: [facility] [address] [facility] [place] [address] [place] [address] * (Routine) Status Reason Specialty Diagnoses / Referred By Referred To Procedures Contact Contact New Request Procedures Sandra Ho F/U APPT MD REQUEST: [facility] [address] [facility] MS [address] [place] [address] Reason for Visit * Reason Comments Head Pain Vomiting * Auth/Cert Status Reason Specialty Diagnoses / Referred By Referred To Procedures Contact Contact Diagnoses Abdominal pain Encounter Details Date Type Department Care Team Description 07/19/2018 [facility] CARDIAC AND FAMILY Hoa Sarkar MD Chronic abdominal pain - Encounter MEDICINE PROGRESSIVE CARE [address] 07/22/2018 [address] [place] [address] [place] [address] [phone] B Jimbo melton DO F ink, Jennifer, MD [address] [facility] MS [address] [place] [address] [phone] Social History Tobacco Use Types Packs/Day Years [...] 07/19/2018 Discharge date: 07/22/2018 Attending Physician: Dr. Leisa Chamberlain Service: Med 2070 Physician Summary completed [...] and abdominal pain. She returned home to [place], [place] then evening of 07/18, experienced the abdominal pain with nausea and vomiting, and returned back to in [place]. She was admitted to Internal Medicine inpatient [...] while inpatient, and recommendation of continuing her WOOD HACKER Cymbalta and Xanax for her depression and [...] and is being discharged on her continued WOOD HACKER Treseba, along with Aspart 6-6-10 with meals [...] home, you can call a dietitian at [phone]. Activity as Tolerated It is important to [...] education. The class is held in the [facility], [place] on the 5th floor of the Medical Office Building, every Sunday from 10:00-12:00 noon and every Sunday 3:00 pm - 5:00 pm. The class is not held on actual or observed holidays. You do not need an appointment for this and we will not bill your insurance. More diabetes education and individual nutrition appointments are offered at the [facility], [place]. Most insurance plans cover these services if you have a referral from your doctor. Call [phone], option 3 or go to [email or web address] for details. Report These Signs and Symptoms Please contact your doctor if you have any of the following symptoms: temperature higher than 100 degrees F, uncontrolled pain, persistent nausea and/ or vomiting, difficulty breathing, chest pain, severe abdominal pain, unable to urinate or unable to have bowel movement. Questions About Your Stay For questions or concerns regarding your hospital stay. Call [phone] Discharging attending physician: LEISA CHAMBERLAIN [[id number]] Diabetic Diet You should eat between 1600 and 2000 calories per day. This is equal to 60g ( grams) of carbohydrates per meal, and 30g of carbohydrates for a bedtime snack. If you have questions about your diet after you go home, you can call a dietitian at [phone]. Current Discharge Medication List START taking these medications Details acetaminophen/lidocaine/antacid DS(#) (GI COCKTAIL) 1:1:3 Take 30 mL by mouth three times daily as needed. Qty: 300 mL, Refills: 0 PRESCRIPTION TYPE: Fax This prescription was faxed to the pharmacy Pharmacy: [address] ( #: [phone]) coenzyme Q10(+) 100 mg cap Take one [...] any questions, please feel free to call [facility] at [phone] and you will directed to the area [...] to schedule a follow up appointment - [phone] If you have any questions, please feel free to call at [phone] and you will directed to the area [...] Continue Synthroid DM - A1c 11% - WOOD HACKER Treseba 17U and Aspart 6-6-10, MDCF Plan: - Lyrica for neuropathy - Insulin as noted above History of Seizures - Unclear how diagnosis was established; patient reports being told she has Absence seizures - WOOD HACKER Tegretol - Also reports taking Ativan 2mg BID for seizures??? (but prescribed as Ativan 1mg q4h PRN for nausea and prescribed by PCP) - No history of EEG per patient Plan: - Continue Tegretol - Decrease Ativan to 1mg BID PRN so as not to withdrawal - Will schedule neuro follow up outpatient Depression and Anxiety - Uncontrolled - WOOD HACKER Cymbalta and Xanax Plan: - Continue medications per psych recommendations Orthostatic Hypotension - Continue Florinef Plan: - Establish care with Outpatient Internal medicine at for continued care Allergies - Continue Zyrtec and Singulair Estrogen Replacement - On topical and tablet. Would like to continue topical only on discharge. - Discussed w/ SLATE CUTTER - OK to discontinue oral estrogen w/o [...] Chamberlain MD Date: 07/22/2018 Internal Medicine, Hospitalist [phone] Subjective Chelsea Castillo is a 58 y.o. [...] 0432) POC Glucose (Download): (!) 103 (07/22/18 0853) Radiology and other Diagnostics Review: No pertinent [...] Score: 42.48 Basic Mobility CMS 0-100%: 36.99 [facility] G Code Modifier for Basic Mobility: [...] Continue Synthroid DM - A1c 11% - WOOD HACKER Treseba 17U and Aspart 4-4-10 Plan: - Continue WOOD HACKER insulin and add SS. Titrate as needed - Lyrica for neuropathy History of Seizures - Unclear how diagnosis was established; patient reports being told she has Absence seizures - WOOD HACKER Tegretol - Also reports taking Ativan 2mg BID for seizures??? (but prescribed as Ativan 1mg q4h PRN for nausea and prescribed by PCP) Plan: - Continue Tegretol - Decrease Ativan to 1mg BID PRN so as not to withdrawal - Will schedule neuro follow up outpatient - no hx EEG per pt or her HB Depression and Anxiety - Uncontrolled - WOOD HACKER Cymbalta and Xanax Plan: - Continue medications per psych recommendations Orthostatic Hypotension - Continue Florinef Plan: - Establish care with Outpatient Internal medicine at for continued care Allergies - Continue Zyrtec and Singulair Estrogen Replacement - On topical and tablet. Would like to continue topical only on discharge. Discuss with SLATE CUTTER if need to taper oral estrogen. Plan: - Will contact SLATE CUTTER about possible need to taper oral estrogen? [...] Chamberlain MD Date: 07/21/2018 Internal Medicine, Hospitalist [phone] Subjective Chelsea Castillo is a 58 y.o. [...] Continue Synthroid DM - A1c 11% - WOOD HACKER Treseba 17U and Aspart 4-4-10 Plan: - Continue WOOD HACKER insulin and add SS. Titrate as needed - Lyrica for neuropathy H/o Szs? - WOOD HACKER Tegretol - Also reports taking Ativan 2mg BID for seizures??? (but prescribed as Ativan 1mg q4h PRN for nausea and prescribed by PCP) Plan: - Continue Tegretol. Check level - Decrease Ativan to 1mg BID PRN so as not to withdrawal. Likely needs Neuro follow up outpatient to assess regimen and appropriateness of regimen Depression and Anxiety - Uncontrolled - WOOD HACKER Cymbalta and Xanax Plan: - Continue Psych Orthostatic Hypotension - Continue Florinef Allergies - Continue Zyrtec and Singulair Estrogen Replacement - On topical and tablet. Would like to continue topical only on discharge. Discuss with SLATE CUTTER if need to taper oral estrogen. FEN: No IVFs, monitor lytes, CLD PPX: Lovenox Code: Full Dispo: Continue admission to Med 3 Seen and discussed with Dr. Bulmaro Holguin PGY-3 1837 ATTESTATION I personally performed the ortega portions [...] Chamberlain MD Date: 07/20/2018 Internal Medicine, Hospitalist [phone] Subjective Chelsea Castillo is a 58 y.o. [...] and a.m. Cortisol -for now resumed her station captain meds as listed except for prn [...] on telemetry for close monitoring Hypothyroidism -resumed station captain synthroid DM -unknown station captain dosing of insulin. Placed on sliding scale for now FEN: no ivf, replete as needed, NPO until awaken then can advance as tolerated to diabetic diet Code: full for now, needs further discussion with patient Dispo: admit to medicine PPx: lovenox Patient to be discussed with attending refrigeration unit repairer __ Primary Care Physician: Rubio Meza III [...] 07/19/18 2:52 AM Result Value Ref Range Hqvryxfy-L-JAC 0.01 0.00 - 0.05 NG/ML URINALYSIS DIPSTICK Collection Time: 07/19/18 4:10 AM Result Value Ref Range Color,UA YELLOW Turbidity,UA CLEAR CLEAR-CLEAR Specific [place]-Urine 1.030 1.003 - 1.035 pH,UA 8.0 5.0 [...] - continuing Synthroid DM - HbA1C 11.4; WOOD HACKER Humalog 02/20/10; Treseba 17U --> LDCF while [...] Care plan was discussed with the patient, case assembler, house staff, and pharmacist. Staff Name: Sandra Ho MD Date: 07/19/2018 in this encounter Consult Notes * Amada Wolf MD - 07/20/2018 1:16 PM CDT Associated Order(s): CONSULT ADULT PSYCHIATRY PHYSICIAN Formatting of this note may be different from the original. PSYCHIATRY CONSULT NOTE Room/Bed: [place] [address] Admission Date: 07/19/2018 LOS: 1 day Consult type: Opinion with orders Reason for Consult: Depression Assessment: 1. Other specified depressive disorder 2. Other specified anxiety disorder 3. Stimulant use disorder, in sustained remission 4. R/O PTSD Recommendations: - Agree with adrenal workup given abdominal pain and low random cortisol - Agree with holding WOOD HACKER Adderall at this time - Would increase Cymbalta to 90mg Qday for better control of anxiety - Continue WOOD HACKER Tegretol, Pregabalin given suggestion of seizure d/o per patient' s report? Vs what sounds like dissociative episodes per interview today Seen and discussed with: Dr. Connelly Please feel free to contact us with any additional questions or concerns by paging the consult team between 8am and 5pm on weekdays and between 8am and 3pm on weekends at [phone]. Otherwise, page the residential substance abuse counselor refrigeration unit repairer. Chief Concern: "I don't know" History of [...] over 20 years ago. Psychosocial History: From [facility]. Did not complete highschool, because got . Grew up with her mother and 6 siblings. 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 5 years, together 20 years. First marriage [...] Sustained Cognition: No signs of impairment Language: Ukrainian Fund of knowledge and vocabulary: Average Focused [...] and between 8am and 3pm on weekends [phone]. Otherwise, page the residential substance abuse counselor refrigeration unit repairer. Staff name: Nathalie Connelly MD Date: 07/20/2018 * Cindy Jaramillo RN - 07/19/2018 1:18 PM CDT Associated Order(s): CONSULT NURSING PAIN MANAGEMENT Formatting of this note may be different from the original. Nursing Pain Management Initial Consult Pt. Name: Chelsea Castillo Admit Date: 07/19/2018 Room: [place] [address] Reason for Consult: "Transition PO regimen; Taper opioids; Complex pain patient ; Chronic opioid therapy" Communication: Discussed patient's plan of care with Dr. Romero. Suggestions to Consider: Hydrocodone-acetaminophen 10-300 mg tablet, 1 tab PO Q 6 hours PRN pain PO- WOOD HACKER medication Continue carbamazepine- WOOD HACKER medication Continue duloxetine DR- WOOD HACKER medication Discontinue nortriptyline- Patient does not take nortriptyline at home. Continue pregabalin- WOOD HACKER medication Change tizanidine 4 mg PO QHS PRN muscle cramps, spasms- WOOD HACKER medications Patient will benefit from a multimodal [...] patient. Please page with questions/concerns, team pager [phone]. ASHLEY Mcleod, RN- Clinical Nurse Coordinator Pain Management [phone] Summary: Ms. Chelsea Castillo is a 58 [...] XR) capsule 40 mg, 40 mg, Oral, QAM8, Marquise Plunkett MD, 40 mg at 07/19/18 1049 atorvastatin (LIPITOR) tablet 40 mg, 40 mg, Oral, QDAY, Marquise Plunkett MD, 40 mg at 07/19/18 0859 [START ON 07/20/2018] carBAMazepine (TEGRETOL) tablet 400 mg, 400 mg, Oral, QDAY, Nba Romero MD cetirizine (ZYRTEC) tablet 10 mg, 10 mg, Oral, QAM8Dimitrios Nour, MD, 10 mg at 07/19/18 0857 [...] Q 6 hours PRN Recent Prescription History: [facility] 07/15/2018 ALPRAZOLAM 1 MG TABLET #30 [...] MD 06/13/2018 HYDROCODONE-ACETAMIN 10-325 MG # 112 RUBIO MEZA MD Assessment: (W) Words to describe pain: Sharp (I) Intensity of pain: Moderate Patient's personal pain goal: Mild (L) Location of pain: Upper mid abdomen (D) Duration of pain: Constant (A) Aggravating/Alleviating factors: Eating, drinking/ Rest, pain medications Last Bowel Movement: WOOD HACKER Opioid Calculations: Date: WOOD HACKER Hydrocodone-acetaminophen ~ 40 mg Total oral morphine [...] and read back): Blood glucose 516 Time MD/CARBONATION EQUIPMENT OPERATOR Notified: 0646 MD/CARBONATION EQUIPMENT OPERATOR Name: Dr Maximus LIAO/CARBONATION EQUIPMENT OPERATOR Response/Orders Given: No new orders at [...] - r/o gastroparesis vs eosinophilic gastritis vs Gowanda's vs malignancy vs cyclic vomiting syndrome - [...] as 9% - UA+ for glucosuria >> WOOD HACKER includes Degludec 17U with Humalog 02/20/10 >> Adjust inpt dosing accordingly Olayinka Ferrer, MS3, MLS([facility]) 07/19/2018 2:22 PM * Case Mgmt DC [...] will continue to follow Patient Address/Phone [address] [address] (home) Emergency Contact Extended Emergency Contact Information Primary Emergency Contact: Dioni Castillo [facility] Mobile Relation: Spouse Secondary Emergency Contact: Quiana Iqbal [facility] Mobile Relation: Sister Healthcare Directive Transportation [...] PCP Rubio Meza III, , ? Pharmacy [facility] [place], [place] - [address] [facility] [address] [facility] [address] ? Durable Medical Equipment Durable Medical Equipment at home: None ? Home Health Receiving home health: No ? Hemodialysis or Peritoneal Dialysis Undergoing hemodialysis or peritoneal dialysis: No ? Tube/Enteral Feeds Receive tube/enteral feeds: No ? Infusion Receive infusions: No ? Private Duty Private duty help used: No ? Home and Community Based Services Home and community based services: No ? Mir White Mir White: N/A ? Hospice Hospice: No ? Outpatient Therapy PT: In the past When did patient receive care?: 2018 Name of rehab location/group: Facility in [facility] [place] Would patient return for future services?: Yes OT: No WIRELESS ARCHITECT: No ? Fpc Facility/Long Term SNF: No NH: No ? Inpatient Rehab IPR: No ? Long-Term Acute Care Hospital LTACH: No ? Acute Hospital Stay Acute Hospital Stay: No Sandra Felipe RN. MSN Integrated Nurse Control Panel Tester Pager [phone] * ED Notes - Suleiman Adorno RN - 07/19/2018 9:24 AM CDT Pt blood sugar is 61, provided orange juice, crackers, and peanut butter. * ED Notes - Yursa Boss RN - 07/19/2018 8:57 AM CDT 0854: [id number]. Please call [place] @ [phone] for report. * ED Notes - [place] [...] -- 18 PER MINUTE -- 95 % 07/20/18 1820 36.7 C (98 F) 128/66 81 18 PER MINUTE -- 97 % AP 07/20/18 1343 37.1 C (98.8 F) 130/61 86 18 PER MINUTE -- 98 % SF 07/20/18 1004 37.2 C (99 F) 132/65 87 18 PER MINUTE -- 95 % 07/20/18 0555 36.9 C (98.5 F) 125/71 74 18 PER MINUTE -- 98 % J 07/20/18 0345 -- -- 75 -- -- -- CS 07/20/18 0310 -- -- 74 -- -- -- CS 07/20/18 0224 37.2 C (98.9 F) 117/69 76 18 PER MINUTE -- 98 % J 07/19/18 2320 -- -- 80 -- -- -- CS 07/19/183 -- 128/69 82 18 PER MINUTE -- [...] PEN 4 Units 4 Units at 12/06 08 insulin glargine (LANTUS SOLOSTAR, BASAGLAR) injection PEN [...] in the clinic. They returned home to [place], [place] around 1999, and the pain began with abdominal distention around 2099. Patient ate a hamburger for dinner, but there hasn't been any causative factor to set off this pain and related symptoms. Patient came in very hypotensive with BP in triage of 59/38 and 67/36. Patient is afebrile and HR is in the 70s. Dr. Honeycutt at bedside, and Dr. Sarkar came in shortly thereafter. Left chest port [...] in the results section. ANTI MANSFIELD(SM) ANTI SHIRT IRONER Routine 07/21/2018 Results for this AB 5:58 [...] POC 146 (H) 70 - 100 MG/DL MAIN LAB Performing Organization Address City/State/[facility] Phone Number [facility] [address] [place] [address] * POC GLUCOSE (07/22/2018 1:21 PM) Glucose, POC 220 (H) 70 - 100 MG/DL [facility] MAIN LAB Performing Organization Address [facility] Phone Number [facility] MAIN [facility] [address] [place] [address] * POC GLUCOSE (07/22/2018 8:55 AM) Glucose, POC 103 (H) 70 - 100 MG/DL [facility] MAIN LAB Performing Organization Address [facility] Phone Number [facility] MAIN [facility] [address] [place] [address] * CBC AND DIFF (07/22/2018 4:32 AM) [...] MAIN LAB Specimen Blood Performing Organization Address [facility] Phone Number [facility] MAIN [facility] [address] [place] [address] * COMPREHENSIVE METABOLIC PANEL (07/22/2018 4:32 AM) [...] Pharmacist for questions. eGFR >60 >60 mL/min MAIN LAB Comment: The eGFR is not validated for use in drug dosing adjustments.Continue to use estimated creatinine clearance per dosing reference text.Please contact the Clinical Pharmacist for questions. Specimen Blood Performing Organization Address City/[facility]/Zipcode Phone Number MAIN LAB [address] [place] [address] * POC GLUCOSE (07/21/2018 8:20 PM) Glucose, POC 350 (H) 70 - 100 MG/DL [facility] MAIN LAB Performing Organization Address City/[facility]/Zipcode Phone Number MAIN LAB [address] [place] [address] * POC GLUCOSE (07/21/2018 6:45 PM) Glucose, POC 129 (H) 70 - 100 MG/DL [facility] MAIN LAB Performing Organization Address City/[facility]/Zipcode Phone Number MAIN LAB [address] [place] [address] * POC GLUCOSE (07/21/2018 1:22 PM) Glucose, POC 239 (H) 70 - 100 MG/DL MAIN LAB Performing Organization Address [facility] Phone Number MAIN LAB [address] [place] [address] * ECG-SCAN (07/21/2018 1:09 PM) Narrative Performed At Ordered by an unspecified provider. * CORTISOL 60 MINUTES POST (07/21/2018 10:10 AM) Cortisol 60 Min 22.6 ug/dL MAIN LAB Specimen Blood Performing Organization Address [facility] Phone Number MAIN LAB [address] [place] [address] * POC GLUCOSE (07/21/2018 9:39 AM) Glucose, POC 165 (H) 70 - 100 MG/DL MAIN LAB Performing Organization Address [facility] Phone Number MAIN LAB [address] [place] [address] * CORTISOL 30 MINUTES POST (07/21/2018 9:30 AM) Cortisol 30 Min 19.4 ug/dL MAIN LAB Specimen Blood Performing Organization Address [facility] Phone Number MAIN LAB [address] [place] [address] * ACTH (07/21/2018 8:40 AM) Adrenocorticotropic 73 (H) REFERENCE LAB Hormone Comment: Unit: pg/mL REFERENCE VALUE - 7.2-63 (a.m. collection) [facility], [address] [facility], [place] [address] Specimen Blood Performing Organization Address [facility] Phone Number REFERENCE LAB REFERENCE LAB See results for address. * CARBAMAZEPINE LEVEL (07/21/2018 8:40 AM) Carbamazepine 3.2 (L) 6.0 - 10.0 MCG/ML MAIN LAB Specimen Blood Performing Organization Address [facility] Phone Number MAIN LAB [address] [place] [address] * CORTISOL BASELINE (07/21/2018 8:40 AM) Cortisol Baseline 13.6 ug/dL MAIN LAB Specimen Blood Performing Organization Address [facility] Phone Number MAIN LAB [address] [place] [address] * ANTI MANSFIELD(SM) ANTI SHIRT IRONER AB (07/21/2018 5:58 AM) Anti-Mansfield <0.2Comment: Interpretation: <1.0 AI MAIN LAB Negative Anti-SHIRT IRONER <0.2Comment: Interpretation: <1.0 AI MAIN LAB Negative Specimen Blood Performing Organization Address [facility] Phone Number MAIN LAB [address] [place] [address] * CENTROMERE ANTIBODIES (07/21/2018 5:58 AM) Centromere Antibody <0.2 <1.0 AI MAIN LAB Comment: Interpretation: Negative NOTE NEW METHODOLOGY AND REFERENCE RANGE Specimen Blood Performing Organization Address [facility] Phone Number MAIN LAB [address] [place] [address] * CCP IGG ANTIBODY (07/21/2018 5:58 AM) CCP IgG Antibody <0.5Comment: NOTE NEW <3.0 [IU]/mL MAIN LAB METHODOLOGY AND REFERENCE RANGE Specimen Blood Performing Organization Address [facility] Phone Number MAIN LAB [address] [place] [address] * SCL 70 ANTIBODIES (07/21/2018 5:58 AM) SCL70 Ab <0.2 <1.0 [facility] MAIN LAB Comment: Interpretation: Negative NOTE NEW METHODOLOGY AND REFERENCE RANGE Specimen Blood Performing Organization Address [facility] Phone Number MAIN LAB [address] [place] [address] * ANTI SSA ANTI SSB AB (07/21/2018 5:58 AM) Anti-SSA <0.2Comment: Interpretation: <1.0 AI MAIN LAB Negative Anti-SSB 0.2Comment: Interpretation: <1.0 AI MAIN LAB Negative Specimen Blood Performing Organization Address [facility]/Zipcode Phone Number MAIN LAB [address] [place] [address] * RHEUMATOID FACTOR (RF) (07/21/2018 5:58 AM) Rheum Factor Screen <20 <24 IU/mL MAIN LAB Specimen Blood Performing Organization Address [facility] Phone Number MAIN LAB [address] [place] [address] * ANTI-DNA DOUBLE STRAND (07/21/2018 5:58 AM) DNA Double Strand AB <10 <10 TITER MAIN LAB Specimen Blood Performing Organization Address [facility] Phone Number MAIN LAB [address] [place] [address] * ANTI-NUCLEAR ANTIBODY(HERNAN) (07/21/2018 5:58 AM) HERNAN Screen <80 <80 TITER MAIN LAB Specimen Blood Performing Organization Address [facility] Phone Number MAIN LAB [address] [place] [address] * PERIPHERAL SMEAR (07/21/2018 5:58 AM) Peripheral Smear Microcytic, hypochromic red [facility] cells. Consider iron deficiency anemia, anemia of chronic disease, thalassemia, and sideroblastic anemia. MILD EOSINOPHILIA. PLATELETS APPEAR NORMAL IN NUMBER AND MORPHOLOGY. Pathologist Signature INTERPRETED BY CHONG ROYAL [facility] [place] By the PATH SIGNATURE ABOVE, I attest that I have personally formulated the final interpretation expressed in this report and that the above diagnosis is based upon my examination of the slides and/or other material indicated in this report. Specimen Blood Performing Organization Address [facility] Phone Number MAIN LAB [address] [place] [address] * CBC AND DIFF (07/21/2018 5:58 AM) White Blood Cells 6.9 4.5 - 11.0 K/[facility] RBC 3.28 (L) 4.0 - 5.0 M/[facility] Hemoglobin 8.4 (L) 12.0 - 15.0 GM/DL MAIN LAB Hematocrit 26.1 (L) 36 - 45 % MAIN LAB MCV 79.4 (L) 80 - 100 FL MAIN LAB MCH 25.7 (L) 26 - 34 PG [facility] MAIN LAB [...] Address City/State/Zipcode Phone Number [facility] MAIN [facility] [address] [place] [address] * COMPREHENSIVE METABOLIC PANEL (07/21/2018 5:58 AM) [...] for questions. Specimen Blood Performing Organization Address City/[facility]/Zipcode Phone Number [facility] [address] [place] [address] * POC GLUCOSE (07/20/2018 8:28 PM) Glucose, POC 323 (H) 70 - 100 MG/DL [facility] Performing Organization Address City/[facility]/Zipcode Phone Number [facility] [address] [place] [address] * POC GLUCOSE (07/20/2018 5:17 PM) Glucose, POC 133 (H) 70 - 100 MG/DL [facility] Performing Organization Address [facility] Phone Number [facility] [address] [place] [address] * POC GLUCOSE (07/20/2018 11:59 AM) Glucose, POC 161 (H) 70 - 100 MG/DL [facility] Performing Organization Address [facility] Phone Number [facility] [address] [place] [address] * POC GLUCOSE (07/20/2018 8:15 AM) Glucose, POC 464 (H) 70 - 100 MG/DL [facility] Performing Organization Address [facility] Phone Number [facility] [address] [place] [address] * POC GLUCOSE (07/20/2018 6:40 AM) Glucose, POC 490 (H) 70 - 100 MG/DL [facility] Performing Organization Address [facility] Phone Number [facility] [address] [place] [address] * COMPREHENSIVE METABOLIC PANEL (07/20/2018 5:30 AM) [...] Address City/State/Zipcode Phone Number [facility] [address] [place] [address] * CBC (07/20/2018 5:30 AM) White Blood [...] MAIN LAB Specimen Blood Performing Organization Address [facility]/Zipcode Phone Number MAIN LAB [address] [place] [address] * PHOSPHORUS (07/20/2018 5:30 AM) Phosphorus 4.4 (H) 2.0 - 4.0 MG/DL [facility]IN [facility] Specimen Blood Performing Organization Address [facility] Phone Number [facility] [address] [place] [address] * MAGNESIUM (07/20/2018 5:30 AM) Magnesium 2.1 1.6 - 2.6 mg/dL [facility]IN [facility] Specimen Blood Performing Organization Address [facility] Phone Number [facility] [address] [place] [address] * POC GLUCOSE (07/19/2018 8:24 PM) Glucose, POC 372 (H) 70 - 100 MG/DL [facility]IN [facility] Performing Organization Address [facility] Phone Number MA[facility] [address] [place] [address] * POC GLUCOSE (07/19/2018 5:08 PM) Glucose, POC 284 (H) 70 - 100 MG/DL MAIN [facility] Performing Organization Address [facility] Phone Number MAIN LAB [address] [place] [address] * IMMUNOGLOBULIN E (IGE) (07/19/2018 5:00 PM) IgE 24 <165 IU/ML MAIN LAB Specimen Blood Performing Organization Address [facility] Phone Number MAIN [facility] [address] [place] [address] * FOLATE, SERUM (07/19/2018 5:00 PM) Serum Folate 15.7Comment: NOTE NEW >3.9 NG/ML MAIN LAB REFERENCE RANGES Specimen Blood Performing Organization Address [facility] Phone Number MAIN [facility] [address] [place] [address] * VITAMIN B12 (07/19/2018 5:00 PM) Vitamin B12 751 180 - 914 PG/ML MAIN LAB Specimen Blood Performing Organization Address [facility]/Zipcode Phone Number [facility] [address] [place] [address] * CORTISOL-AM (07/19/2018 5:00 PM) Cortisol-AM 6.3 (L) 6.7 - 22.6 MCG/DL [facility] Specimen Blood Performing Organization Address [facility] Phone Number [facility] [address] [place] [address] * IRON + BINDING CAPACITY + %SAT+ FERRITIN (07/19/2018 5:00 PM) Iron 24 (L) 50 - 160 MCG/DL [facility] Iron Binding-TIBC 383 (H) 270 - 380 MCG/DL [facility] % Saturation 6 (L) 28 - 42 % [facility] Ferritin 6 (L) 10 - 200 NG/ML [facility] Specimen Blood Performing Organization Address [facility] Phone Number MAIN LAB [address] [place] [address] * URINALYSIS, MICROSCOPIC (07/19/2018 12:58 PM) WBCs,UA 0-2 0 - 2 /HPF [facility] RBCs,UA NONE 0 - 3 /HPF [facility] Squamous Epithelial Cells 0-2 0 - 5 [facility] Specimen Urine - Urine Performing Organization Address [facility] Phone Number [facility] [address] [place] [address] * URINALYSIS DIPSTICK (07/19/2018 12:58 PM) Color,UA YELLOW [facility] Turbidity,UA CLEAR CLEAR-CLEAR [facility] Specific [place]-Urine 1.016 1.003 - 1.035 [facility] [...] Specimen Urine - Urine Performing Organization Address [facility]/Zipcode Phone Number MAIN LAB [address] [place] [address] * POC GLUCOSE (07/19/2018 10:14 AM) Glucose, POC 117 (H) 70 - 100 MG/DL [facility] Performing Organization Address [facility] Phone Number MAIN LAB [address] [place] [address] * POC GLUCOSE (07/19/2018 9:18 AM) Glucose, POC 61 (L) 70 - 100 MG/DL [facility] Performing Organization Address [facility] Phone Number MAIN LAB [address] [place] [address] * C REACTIVE PROTEIN (CRP) (07/19/2018 6:20 AM) C-Reactive Protein 0.33 <1.0 MG/DL MAIN LAB Specimen Blood Performing Organization Address [facility] Phone Number MAIN LAB [address] [place] [address] * SED RATE (07/19/2018 6:20 AM) Sed Rate -ESR 5 0 - 30 MM/HR MAIN LAB Specimen Blood Performing Organization Address [facility] Phone Number MAIN LAB [address] [place] [address] * AMYLASE (07/19/2018 6:20 AM) Amylase 43 24 - 100 U/L MAIN LAB Specimen Blood Performing Organization Address [facility] Phone Number MAIN LAB [address] [place] [address] * CORTISOL,RANDOM (07/19/2018 6:20 AM) Cortisol, Random 2.8 (L) 5.0 - 20.0 MCG/DL MAIN LAB Specimen Blood Performing Organization Address [facility] Phone Number MAIN LAB [address] [place] [address] * TSH WITH FREE T4 REFLEX (07/19/2018 6:20 AM) TSH 4.350 0.35 - 5.00 MCU/ML MAIN LAB Specimen Blood Performing Organization Address [facility]/Zipcode Phone Number MAIN LAB [address] [place] [address] * HEMOGLOBIN A1C (07/19/2018 6:20 AM) Hemoglobin A1C 11.4 (H) 4.0 - 6.0 % [facility] Comment: The ADA recommends that most patients with type 1 and type 2 diabetes maintain an A1c level <7%. Specimen Blood Performing Organization Address [facility] Phone Number [facility] [address] [place] [address] * URINALYSIS, MICROSCOPIC (07/19/2018 4:10 AM) WBCs,UA 0-2 0 - 2 /HPF [facility] RBCs,UA NONE 0 - 3 /HPF [facility] MucousUA TRACE [facility] Squamous Epithelial Cells 0-2 0 - 5 [facility] Specimen Urine - Urine Performing Organization Address [facility] Phone Number [facility] [address] [place] [address] * URINALYSIS DIPSTICK (07/19/2018 4:10 AM) Color,UA YELLOW [facility] Turbidity,UA CLEAR CLEAR-CLEAR [facility] Specific [place]-Urine 1.030 1.003 - 1.035 [facility] [...] Specimen Urine - Urine Performing Organization Address [facility] Phone Number [facility] [address] [place] [address] * CRITICAL CARE (07/19/2018 4:00 AM) Narrative Performed At Hoa Srakar MD 07/21/20181:30 AM Critical Care Performed by: [...] midlevel. * POC TROPONIN (07/19/2018 2:52 AM) Zucoggcl-H-DRC 0.01 0.00 - 0.05 NG/ML MAIN LAB Performing Organization Address City/State/Zipcode Phone Number MAIN LAB [address] [place] [address] * CTA CHEST WO/W CONTRAST+POST IMPRESSION (07/19/2018 [...] axillary lymphadenopathy, slightly greater on the left. [employer] Analyst left axillary lymph node measures 2.5 x [...] bilateral external iliac and inguinal lymph nodes. [employer]st right external iliac lymph node measures 2.4 [...] axillary lymphadenopathy, slightly greater on the left. [employer]st left axillary lymph node measures 2.5 x [...] bilateral external iliac and inguinal lymph nodes. [employer] Analyst right external iliac lymph node measures 2.4 [...] axillary lymphadenopathy, slightly greater on the left. [employer] Analyst left axillary lymph node measures 2.5 x [...] bilateral external iliac and inguinal lymph nodes. [employer] Analyst right external iliac lymph node measures 2.4 [...] axillary lymphadenopathy, slightly greater on the left. [employer] Analyst left axillary lymph node measures 2.5 x [...] bilateral external iliac and inguinal lymph nodes. [employer] Analyst right external iliac lymph node measures 2.4 [...] on 07/19/2018 2:19 AM. Performing Organization Address City/[facility]/Zipcode Phone Number RAD RESULTS * POC CREATININE, RAD (07/19/2018 2:03 AM) Creatinine, POC 1.2 (H) 0.4 - 1.00 MG/DL [facility] Performing Organization Address [facility] Phone Number MAIN LAB [address] [place] [address] * ECG-SCAN (07/19/2018 2:00 AM) Narrative Performed At Ordered by an unspecified provider. * POC LACTATE (07/19/2018 2:00 AM) LACTIC ACID POC 1.4 0.5 - 2.0 MMOL/L [facility] Performing Organization Address [facility] Phone Number MAIN LAB [address] [place] [address] * PHOSPHORUS (07/19/2018 1:40 AM) Phosphorus 4.2 (H) 2.0 - 4.0 MG/DL [facility] Specimen Blood Performing Organization Address [facility] Phone Number MAIN LAB [address] [place] [address] * MAGNESIUM (07/19/2018 1:40 AM) Magnesium 2.3 1.6 - 2.6 mg/dL [facility] Specimen Blood Performing Organization Address [facility] Phone Number MA[facility] LAB [address] [place] [address] * LIPASE (07/19/2018 1:40 AM) Lipase 27 11 - 82 U/L [facility] Specimen Blood Performing Organization Address [facility] Phone Number MAIN LAB [address] [place] [address] * COMPREHENSIVE METABOLIC PANEL (07/19/2018 1:40 AM) [...] Organization Address City/State/Zipcode Phone Number MAIN LAB [address] [place] [address] * CBC AND DIFF (07/19/2018 1:40 AM) [...] MAIN LAB Specimen Blood Performing Organization Address [facility] Phone Number [facility] [address] [place] [address] * CULTURE-BLOOD W/SENSITIVITY (07/19/2018 1:40 AM) Battery Name BLOOD CULTURE [facility] Specimen Description BLOOD [facility] LEFT UA Special Requests NONE [facility] Culture NO GROWTH 5 DAYS [facility] Report Status FINAL [facility] 07/25/2018 Specimen Blood Performing Organization Address [facility] Phone Number [facility] [address] [place] [address] * CULTURE-BLOOD W/SENSITIVITY (07/19/2018 1:30 AM) Battery Name BLOOD CULTURE [facility] Specimen Description BLOOD MAIN LAB LEFT PORT Special Requests NONE MAIN LAB Culture NO GROWTH 5 DAYS [facility] Report Status FINAL [facility] 07/25/2018 Specimen Blood Performing Organization Address [facility] Phone Number [facility] [address] [place] [address] in this encounter Visit Diagnoses Diagnosis RADHA (acute kidney injury) (HCC) - Primary Acute kidney failure, unspecified Abdominal pain, unspecified abdominal location Nonintractable headache, unspecified chronicity pattern, unspecified headache type Anemia, unspecified type Chronic abdominal pain Abdominal pain, unspecified site Admitting Diagnoses Diagnosis Abdominal pain Administered Medications [...] CDT 30 mL, Oral, ONCE, 1 dose, 9/1/18 at 0815, 30mL (1:1:3)=192mg/6mL acetamin-6mL 2% vis [...] 400 mg, Oral, DAILY, First dose on Sat [...] CDT 12.5 mg, Intravenous, ONCE, 1 dose, Sun07/19/18 at 0230 diphenhydrAMINE (BENADRYL) injection 25 Given [...] TWICE DAILY, First dose on 09:11 CDT Sun07/19/18 at 0900, Until Discontinued duloxetine DR (CYMBALTA) [...] Subcutaneous, DAILY, First dose 20:35 CDT on 07/19/18 at 2100, Until Discontinued, For patients undergoing [...] MEALS AND AT BEDTIME, First dose on 07/20/18 at 0800, Until Discontinued, -POC glucose 140-180mg/dL at , , administer 2 units insulin, at 21, 03* [...] -POC glucose 181-220mg/dL at , , administer 2 units insulin, at , 03* administer 1 unit. -POC glucose 221-260mg/dL at , , administer 3 units insulin, at , * administer 2 units. -POC glucose 261-300mg/dL at , , administer 4 units insulin, at , * administer 3 units. -POC glucose 301-350mg/dL at , , administer 5 units insulin, at , * administer 4 units. -POC glucose 351-400mg/dL at , administer 6 units insulin, at , * administer 5 units. -POC glucose >400mg/dL at , , administer 7 units insulin, at , [...] Subcutaneous, AT BEDTIME DAILY, First dose on 07/21/18 at 2100, Until Discontinued, -- Do not [...] g/D5W 100 mL IVPB Given - New 07/20/2018 1 g 100 mL/hr 1 g, [...] 1 g/D5W 100 mL IVPB Given - 07/22/2018 1 g 100 mL/hr 1 g, [...] DAILY PRN, Starting 07/20/18 at 1000, Until Sun07/22/18 at 2042, Constipation PO, 8.5 GRAMS=0.5 PACKET [...] HOURS PRN, Starting 07/20/18 at 2246, Until Sun07/22/18 at 2042, Nausea/Vomiting Injectable, PROTECT FROM LIGHT -- May [...] DAILY, First dose on Sun 13:27 CDT 07/21/18 at 1330, Until Discontinued Given 07/22/2018 1 tablet 10:05 CDT in this encounter
--- OUTSIDE RECORDS SUMMARY | 2018-08-19 23:06 | XMS REPORT | Encounter Summary ---
Author Author [facility] Organization [facility] Address Unknown Phone Unavailable Care Team Providers Care Engagement Director Name Role Phone Charles Chau MD Unavailable [...] [address] [facility] [place], [place] cyclical [id number] vomiting with Phone: Phone: nausea [phone] Gastropathy Fax: Type 1 diabetes [phone] mellitus with complication (HCC) Dysthymia Anxiety Migraine [...] Other [address] [facility] [place], [place] [address] [place] [address] [place], [place] vomiting with Phone: [phone] nausea [phone] Phone: Gastropathy Type 1 diabetes [phone] mellitus with complication (HCC) Dysthymia Anxiety Migraine [...] [facility] on Required Other [address] [place] cyclical [phone] vomiting with Phone: Phone: nausea [phone] Gastropathy Fax: Type 1 diabetes [phone] mellitus with complication (HCC) Dysthymia Anxiety Migraine with aura and with status migrainosus, not intractable Epigastric pain Abdominal pain, unspecified abdominal location Scheduling Instructions Contact Phone Numbers for each area if questions arise: General: [phone] Epilepsy: Multiple Sclerosis: Parkinson's: [facility]: Stroke & Neuromuscular: [place]: [phone] Please call pt and schedule. Thanks! * Consult, Test & Treat (Routine) Status Reason Specialty Diagnoses / Referred By Referred To Procedures Contact Contact New Request Specialty Psychiatry Diagnoses [facility] Other dysphagia LUIS [facility] Required Other [address] [place], [place], [place] cyclical [phone] vomiting with Phone: Phone: nausea [phone] Gastropathy Fax: Type 1 diabetes [phone] mellitus with complication (HCC) Dysthymia Anxiety Migraine [...] Level 2B abdominal pain [address] MAKSIM AVILEZ [address] [place], [place] rocedures Phone: [phone] Consult [phone] Phone: Encounter Details Date Type Department Care Team Description 07/18/[address] [facility] Balbina Matamoros, Abdominal pain, Physicians HEEL FORMER-RADIO ELECTRICIAN unspecified abdominal Ortho and Medical [address] location (Primary Dx); [address] [place] [address] Other dysphagia; [address] [phone] Other constipation; [place], [place]ractable cyclical [id number] vomiting with nausea; [phone] Gastropathy; Type 1 diabetes mellitus with complication [...] encounter Instructions * Patient Instructions - Maritza Fuentes RN - 07/18/2018 3:00 PM CDT Start: coenzyme Q10 100mg twice a day- Over the counter L-carnitine 2g twice a day- Over the counter One B complex vitamin daily- Over the counter Get at least 8-10 hours of sleep per night Start taking 1 capful of MiraLAX per day to achieve 1-2 [place] #4 bowel movements per day Start taking [...] 2 weeks to complete test. Please call [phone] if you have any questions or concerns. General Instructions: To have a medication refilled: Please use the [employer]) Refill request or contact your pharmacy directly to request medication refills. Please allow 72 hours. [facility] Lab is on the 1st floor. It is open from 7 am-6pm Sunday-Sunday and 6:30am-7pm on Mondays, and 7 am - Noon on Saturdays [facility] Lab is located on the 2nd floor and is open 8 am-5 pm Sunday-Sunday [facility] lab is located next to the check out desk and is open from 8 AM to 4:45 PM Sunday through Sunday. Radiology is on the 2nd floor of the Medical Office Building and the 2nd Floor of [facility]. Radiology Scheduling can be reached at To Schedule office visits: Call [phone]. For procedure scheduling questions at the Main [facility] or [place] please call ; for a procedure at [facility] please call . To receive appointment reminders on your cell phone: Make sure we have your cell phone number, and Text [facility] to [phone]. Support for many chronic illnesses is available through [facility] [place]: [employer] or [phone]. For urgent questions on nights, weekends or holidays, call the Dba Manager at [phone], and ask for the doctor saxophone teacher for Gastroenterology.Call 911 for any emergencies. in this encounter Progress Notes * Shiloh BalbinaALLISON-RADIO ELECTRICIAN - 07/18/2018 3:00 PM CDT Formatting of [...] vomiting. She reports that she has between [place] #1 and 4 bowel movements approximately every [...] pylori and celiac. Outside records reviewed 05/06/2018 [place] gastro[facility]ology progress note: recurrent upper abdominal pain associated with nausea and vomiting requiring 6 hospitalizations over the past year with CT scans of abdomen/pelvis as well as EGD/colonoscopy; all of which are unremarkable. 04/30/2018 small bowel follow-through at [place]: Delayed contrast transit to the large bowel with unremarkable small bowel; constipation was also observed. 04/24/2018 [place] gastroenterology progress note: Intermittent nausea, vomiting, and upper abdominal pain; she is asymptomatic between episodes. Will obtain VIP, serotonin, and gastrin levels. 04/03/2018 EGD at [facility]: Mild diffuse active gastritis with a small [...] was encouraged. 12/21/15 gastric empt[facility] at [facility]: This was a 2 hour exam and [...] future we can obtain more of an BUSINESS UNIT LEADER history Likely above-mentioned dysmotility drugs are contributing [...] and CT abdomen and pelvis at [facility] for cyclic vomiting we will treat with the following... coenzyme Q10 100mg BID L-carnitine 2g BID One B complex vitamin Get at least 8-10 hours of sleep per night -For constipation we will treat with the following Start taking 1 capful of MiraLAX per day to achieve 1-2 [place] #4 bowel movements per day Start taking [...] vs benefits of medications. Additionally, I spent 6626-1093 (20 min) and 1730 -1823 (53 min) totaling 73 minutes reviewing outside records, coordinating, and documenting care. Thank you for allowing me to participate in the care of this patient. Please call GI clinic with any questions/concerns. Balbina [facility], HEEL FORMER-RADIO ELECTRICIAN Addendum 08/09/2018: Outside records reviewed 06/12/18 [facility]: Minimal constipation without obstruction, ileus, or free air. 05/17/18 [facility]: Nonspecific nonobstructive bowel gas pattern. 04/20/18 HPI at ER: Symptoms started with stomach ache and progressed into migraine, follows with neurologist at [place] for Botox injections. 09/04/2017 admitted to hospital for intractable nausea and vomiting, migraine headaches, and history of gastroparesis. Patient angry as a result of Tylenol being recommended for pain control. Pseudoseizure suspected at that time. 07/06/2017 EEG: Abnormal in awake and asleep states, suggestive of seizure focus primarily on left side of the right side cannot be excluded by EEG alone; MRI of brain was recommended. 02/22/2017 echocardiogram; ejection fraction 73%. 01/16/2018 admitted to hospital for headache, myalgia, diabetes, gastroenteritis , gastroparesis; patient requesting morphine as she was afraid she might vomit with hydrocodone; suspected diabetic gastroparesis and actively taking Reglan does not feel Reglan is helping. 01/25/16 CT head without contrast: No identified acute intracranial abnormality. 12/21/15 gastric emptying study: No delay in gastric emptying; at 125 minutes 64% of the radiotracer cleared from stomach. 11/26/15 patient admitted for intractable abdominal pain, nausea, vomiting, depression, diabetes; IV fluids provided, per patient is currently taking medication to heal stomach ulcers. Minimal witnessed vomiting on this admission. Patient underwent EGD 11/29/15. As a result of of her grandmother, patient elected to leave. 11/29/2015 EGD: Gastritis, small gastric polyps,, small hiatal hernia, esophagitis; biopsies negative for H. pylori, stomach biopsy suggestive of mild reactive gastropathy, gastroesophageal junction biopsy was consistent with mild chronic esophagogastritis without intestinal metaplasia; patient medication regimen changed to Protonix 40 mg twice daily and 1 g Carafate with meals and bedtime was started. 10/26/15 CT abdomen and pelvis: No obstructive features, inflammatory processes, or acute abnormalities identified. No biliary duct dilatation. 08/21/2015 patient admitted with diabetic ketosis, migraine exacerbated by recent concussion, hallucinations with conversion disorder and attention seeking behavior, major depressive disorder, nausea/vomiting and dehydration; patient struck back of the head after fall on 08/18/2015 and presented to [facility] emergency room where CT of head was done and without significant pathology. 08/21/15 CT head: No abnormalities other than degenerative changes with 4 minimal and mild central narrowing at multiple levels. 07/26/15 CT abdomen pelvis: No acute process, post hysterectomy and cholecystectomy, small hiatal hernia. 07/02/15 CT abdomen pelvis without contrast: No abnormalities. 04/05/15 CT abdomen and pelvis without contrast: Normal CT scan of abdomen and pelvis. 06/09/14 admitted with abdominal pain, nausea, vomiting (likely secondary to psychosomatic overlay), diabetic gastroparesis, gastroesophagitis, adrenal cortical insufficiency, hypothyroidism, fibromyalgia, history of traumatic brain injury, suspected depression with somatizations, overactive bladder, several hospital stays over the last 6-9 months were noted as a result of nausea , vomiting, dehydration (almost all of which were precipitated by social and domestic circumstances within the home), prior clinic visit noted where patient admits to trying to make herself sick in order to be admitted to the hospital so that she could get away from home and family circumstances. Patient whom was accompanied by majority of the time denied this but became very emotionally charged; patient further question when was not around and patient admits home situation was substantial and physically making her ill but she did not feel comfortable discussing it in front of her , intensive family counseling and/or mental health evaluation was strongly recommended in order to reduce readmission rates. 03/01/2014 admitted to the hospital with viral gastroenteritis menses most likely normal virus) metabolic acidosis, Mild malnourishment, dehydration, major depression; also recently had GI illness, patient was stabilized and discharged home. 03/01/14 CT abdomen pelvis: Negative. 02/06/2014 patient admitted for severe malnutrition which required parenteral nutrition with albumin of 2.6; psychosocial issues were brought up and admittedly contributed to noncompliance. 02/02/2014 patient admitted for DKA. 01/17/14 patient admitted for nausea, vomiting, dehydration, diabetes, migraine headaches. Outside records reviewed 08/09/18 from 16 [id number] 30 (total of 46 min), there were 70 pages; erroneous documents were removed and pertinent records were scanned to be placed in chart. LUIS Moran in this encounter Plan of Treatment Name [...]
[2018-08-19] MEDS ORDERED: NS IV 1000 ML 1,000 ML IV ONE (23:35)
[2018-08-19 23:40] LABS: BASOPHILS # (AUTO) 0.1 10^3/uL (0.0-0.1); BASOPHILS % (AUTO) 0 % (0-10); EOSINOPHILS # (AUTO) 1.7 10^3/uL (0.0-0.3); EOSINOPHILS % (AUTO) 12 % (0-10); HEMATOCRIT 35 % (35-52); HEMOGLOBIN 11.4 G/DL (11.5-16.0); LYMPHOCYTES # (AUTO) 2.6 X 10^3 (1.0-4.0); LYMPHOCYTES % (AUTO) 19 % (12-44); MEAN CORPUSCULAR HEMOGLOBIN 28 PG (25-34); MEAN CORPUSCULAR HGB CONC 33 G/DL (32-36); MEAN CORPUSCULAR VOLUME 84 FL (80-99); MEAN PLATELET VOLUME 10.5 FL (7.4-10.4); MONOCYTES # (AUTO) 0.7 X 10^3 (0.0-1.0); MONOCYTES % (AUTO) 5 % (0-12); NEUTROPHILS # (AUTO) 8.8 X 10^3 (1.8-7.8); NEUTROPHILS % (AUTO) 63 % (42-75); PLATELET COUNT 339 10^3/uL (130-400); RED BLOOD COUNT 4.13 10^6/uL (4.35-5.85)
[2018-08-19] MEDS ORDERED: ONDANSETRON 4 MG/2 ML (SDV) Z0FRAN IVP ONE (23:45)
[2018-08-19] MEDS ORDERED: HYDROmorphone 2 MG/ML VIAL (DILAUDID) IV STA (23:59)
[2018-08-20] MEDS ORDERED: PANTOPRAZOLE 40 MG (PROTONIX) VIAL IV ONE
[2018-08-20 00:01] LABS: ALANINE AMINOTRANSFERASE 13 U/L (0-55); ALBUMIN 3.6 GM/DL (3.2-4.5); ALKALINE PHOSPHATASE 96 U/L (40-136); BILIRUBIN,TOTAL 0.4 MG/DL (0.1-1.0); BUN/CREATININE RATIO 7; CALCIUM 8.8 MG/DL (8.5-10.1); CARBON DIOXIDE 27 MMOL/L (21-32); CHLORIDE 99 MMOL/L (98-107); CREATININE SERUM 0.89 MG/DL (0.60-1.30); GFR ESTIMATED > 60; GLUCOSE 353 MG/DL (70-105); POTASSIUM 3.7 MMOL/L (3.6-5.0); SODIUM 138 MMOL/L (135-145); TOTAL PROTEIN 6.3 GM/DL (6.4-8.2)
--- NOTE | 2018-08-20 00:07 | ED Abdominal Pain ---
General Stated Complaint: VOMITING/STOMACH PAIN/HEAD PAIN Source of Information: Patient Exam Limitations: No Limitations History of Present Illness Date Seen by Provider: Aug 19, 2018 Time Seen by Provider: 23:42 Initial Comments Here with report of epigastric abdominal pain and nausea and vomiting for the last 24-36 hours. Reports at least 15 episodes of vomiting in that timeframe. Does have history of diabetes and states that her blood sugars have ranged between low and high but over the last couple days of pen just high in the 300s or higher range. Reports she tried to take her medicines tonight and that didn' t stay down. Patient is anxious and complaining of 10 out of 10 epigastric pain. Has recently had some med adjustments with respect to her narcotics. Family reports they are weaning her down some and have started that recently. Denies diarrhea or dysuria. Timing/Duration: 1-2 Days Severity/Quality: Moderate, Severe, Aching Location: Epigastric Radiation: RUQ, LUQ, RLQ, LLQ Activities at Onset: None Modifying Factors: Worsens With Eating, Worsens With Movement, Worsens With Vomiting Associated Symptoms: No Fever/Chills; Fatigue, Nausea/Vomiting; No Shortness of Air; Weakness Allergies and Home Medications Allergies Coded Allergies: Sulfa (Sulfonamide Antibiotics) (Verified Allergy, Unknown, 11/26/15) Home Medications Albuterol Sulfate 18 Gm Hfa.aer.ad, 2 PUFF IH Q6H PRN for SHORTNESS OF BREATH, ( Reported) Alprazolam 1 Mg Tablet, 1 MG PO DAILY PRN for ANXIETY, (Reported) Atorvastatin Calcium 40 Mg Tablet, 40 MG PO HS, (Reported) Carbamazepine 200 Mg Tab.er.12h, 200 MG PO BID, (Reported) Cefuroxime Axetil 250 Mg Tablet, 250 MG PO BID Prescribed by: BRENDA PARDO on 08/05/18 1536 Cetirizine HCl 10 Mg Tablet, 10 MG PO DAILY, (Reported) Cholecalciferol (Vitamin D3) 5,000 Unit Capsule, 5,000 UNIT PO DAILY, (Reported) Clobetasol Propionate 15 Gm Cream..g., TOP UD PRN for SKIN, (Reported) Dextroamphetamine/Amphetamine 20 Mg Tablet, 20 MG PO BID, (Reported) Diclofenac Sodium 100 Gm Gel..gram., TOP UD PRN for JOINT PAIN, (Reported) Duloxetine HCl 60 Mg Capsule.dr, 60 MG PO BID, (Reported) Estrogens Conjugated 30 Gm Cr, UD, (Reported) Estrogens, Conjugated 0.625 Mg Tablet, 0.625 MG PO DAILY, (Reported) Fesoterodine Fumarate 4 Mg Tab.sr.24h, 4 MG PO DAILY, (Reported) Fludrocortisone Acetate 0.1 Mg Tab, 0.1 MG PO BID, (Reported) Fluticasone Propionate 16 Gm [place].susp, 1 SPRAY NS BID PRN for ALLERGIES, ( Reported) Glucagon,Human Recombinant 1 Mg/Kit Soln, UD PRN for BLOOD SUGAR, (Reported) Hydrocodone/Acetaminophen 1 Each Tablet, 1 TAB PO QID PRN for PAIN-MODERATE, ( Reported) Hydroxychloroquine Sulfate 200 Mg Tablet, 200 MG PO DAILY, (Reported) Insulin Degludec 100 Unit/1 Ml Insuln.pen, 17 UNITS SQ HS, (Reported) Insulin Lispro 100 Unit/1 Ml Insuln.pen, 4 UNITS SQ 0800,1200, (Reported) Insulin Lispro 100 Unit/1 Ml Insuln.pen, 10 UNIT SQ 1800, (Reported) Levothyroxine Sodium 175 Mcg Tablet, 175 MCG PO DAILY, (Reported) Lidocaine/Prilocaine 30 Gm Cream..g., TOP UD PRN for SKIN, (Reported) Lorazepam 1 Mg Tablet, 1 MG PO BID, (Reported) Montelukast Sodium 10 Mg Tablet, 10 MG PO DAILY, (Reported) Multivitamin with Minerals 1 Each Tablet, 1 TAB PO DAILY, (Reported) Nitrofurantoin Monohyd/M-Cryst 100 Mg Capsule, 1 TAB PO BID Prescribed by: CARA LEWIS on 05/17/182108 Nortriptyline HCl 25 Mg Capsule, 25 MG PO HS, (Reported) Nystatin 60 Gm Powder, TOP UD PRN for RASH, (Reported) Ondansetron 4 Mg Tab.rapdis, 8 MG PO Q6H PRN for NAUSEA/VOMITING Prescribed by: CARA LEWIS on 05/17/182108 Ondansetron 4 Mg Tab.rapdis, 4 MG PO Q6H PRN for NAUSEA/VOMITING Prescribed by: THOMAS HERNANDEZ on 08/20/18411 Pantoprazole Sodium 40 Mg Tablet.dr, 40 MG PO DAILY, (Reported) Pentosan Polysulfate Sodium 100 Mg Capsule, 100 MG PO TID, (Reported) UNKNOWN LAST FILL DATE Potassium Chloride 10 Meq Capsule.er, 10 MEQ PO DAILY, (Reported) Pregabalin 150 Mg Capsule, 150 MG PO BID, (Reported) Rizatriptan Benzoate 10 Mg Tablet, 10 MG PO UD PRN for MIGRAINE, (Reported) Sucralfate 1 Gm/10 Ml Oral.susp, 1 GM PO AC, (Reported) Tizanidine HCl 4 Mg Tablet, 4 MG PO TID PRN for MUSCLE SPASMS, (Reported) Zolpidem Tartrate 10 Mg Tablet, 10 MG PO HS, (Reported) [Biotex] , 200 UNITS PO UD PRN for MIGRAINE, (Reported) Patient Home Medication List Home Medication List Reviewed: Yes Review of Systems Review of Systems Constitutional: see HPI; No chills, No fever EENTM: No Symptoms Reported Respiratory: No Symptoms Reported Cardiovascular: No Symptoms Reported Gastrointestinal: Abdominal Pain, Nausea, Poor Fluid Intake, Vomiting Genitourinary: No Symptoms Reported; Denies Frequency, Denies Pain Musculoskeletal: no symptoms reported Skin: no symptoms reported Psychiatric/Neurological: Anxiety, Weakness All Other Systems Reviewed Negative Unless Noted: Yes Past Ytboyae-Iaunqv-Leqiyu Hx Past Med/Social Hx: Reviewed Nursing Past Med/Soc Hx Patient Social History Alcohol Use: Denies Use Recreational Drug Use: No Smoking Status: Never a Smoker 2nd Hand Smoke Exposure: No Recent Foreign Travel: No Contact w/Someone Who Travel: No Recent Hopitalizations: No Immunizations Up To Date Tetanus Booster (TDap): More than 5yrs Date of Pneumonia Vaccine: Aug 19, 2014 Date of Influenza Vaccine: Aug 22, 2017 Seasonal Allergies Seasonal Allergies: No Past Medical History Surgeries: Yes (PORT,CARPAL TUNNEL, R.HIP, BILAT SHOULDER SURGERY, port placement) Eye Surgery, Gallbladder, Hysterectomy, Orthopedic, Vascular Surgery Respiratory: Yes Asthma Currently Using CPAP: No Currently Using BIPAP: No Cardiac: Yes High Cholesterol, Hypertension Neurological: Yes Concussion, Headaches /Migraines, Neuropathy, Seizure Disorder, Traumatic Brain Injury Reproductive Disorders: No Female Reproductive Disorders: Denies 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 CHRONIC ABDOMINAL PAIN. ) Ulcer Musculoskeletal: Yes Arthritis Endocrine: Yes (ADRENAL DISEASE) Diabetes, Insulin dep, Hypothyroidsim HEENT: Yes Chronic Ear Infection Loss of Vision: Denies Hearing Impairment: Denies Cancer: No Psychosocial: Yes Anxiety, Depression Integumentary: No Blood Disorders: No Adverse Reaction/Blood Tranf: No Family Medical History Reviewed Nursing Family Hx Alcoholism 09 BROTHER Cancer 03 MOTHER (PANCREATIC CA) Myocardial infarction 03 MOTHER Cancer Physical Exam Vital Signs Vital Signs - First Documented 08/19/18 23:10 Temp 98.4 Pulse 96 Resp 16 B/P (MAP) 190/108 (135) Pulse Ox 96 O2 Delivery Room Air Capillary Refill : Height/Weight/BMI Height: 5'5.00" Weight: 135lbs. 3.2oz. 61.717721ky; 24.2 BMI Method:Stated General Appearance: WD/WN, mild distress HEENT: PERRL/EOMI, pharynx normal Neck: full range of motion, supple Respiratory: lungs clear, normal breath sounds Cardiovascular: regular rate, rhythm, no murmur Gastrointestinal: soft; No guarding, No rebound; tenderness (Epigastric) Extremities: non-tender, normal inspection Back: normal inspection, no CVA tenderness, no vertebral tenderness Neurologic/Psychiatric: alert, oriented x 3 Skin: normal color, warm/dry Progress/Results/Core Measures Results/Orders Lab Results Laboratory Tests Test 08/19/18 23:30 08/20/18 01:11 08/20/18 03:53 Range/Units White Blood Count 14.0 H 4.3-11.0 10^3/uL Red Blood Count 4.13 L 4.35-5.85 10^6/uL Hemoglobin 11.4 L 11.5-16.0 G/DL Hematocrit 35 35-52 % Mean Corpuscular Volume 84 80-99 FL Mean Corpuscular Hemoglobin 28 25-34 PG Mean Corpuscular Hemoglobin Concent 33 32-36 G/DL Red Cell Distribution Width 18.0 H 10.0-14.5 % Platelet Count 339 130-400 10^3/uL Mean Platelet Volume 10.5 H 7.4-10.4 FL Neutrophils (%) (Auto) 63 42-75 % Lymphocytes (%) (Auto) 19 12-44 % Monocytes (%) (Auto) 5 0-12 % Eosinophils (%) (Auto) 12 H 0-10 % Basophils (%) (Auto) 0 0-10 % Neutrophils # (Auto) 8.8 H 1.8-7.8 X 10^3 Lymphocytes # (Auto) 2.6 1.0-4.0 X 10^3 Monocytes # (Auto) 0.7 0.0-1.0 X 10^3 Eosinophils # (Auto) 1.7 H 0.0-0.3 10^3/uL Basophils # (Auto) 0.1 0.0-0.1 10^3/uL Neutrophils % (Manual) 67 % Lymphocytes % (Manual) 16 % Monocytes % (Manual) 5 % Eosinophils % (Manual) 12 % Sodium Level 138 135-145 MMOL/L Potassium Level 3.7 3.6-5.0 MMOL/L Chloride Level 99 98-107 MMOL/L Carbon Dioxide Level 27 21-32 MMOL/L Anion Gap 12 5-14 MMOL/L Blood Urea Nitrogen 6 L 7-18 MG/DL Creatinine 0.89 0.60-1.30 MG/DL Estimat Glomerular Filtration Rate > 60 BUN/Creatinine Ratio 7 Glucose Level 353 H 70-105 MG/DL Calcium Level 8.8 8.5-10.1 MG/DL Corrected Calcium 9.1 8.5-10.1 MG/DL Phosphorus Level 4.0 2.3-4.7 MG/DL Magnesium Level 1.9 1.8-2.4 MG/DL Total Bilirubin 0.4 0.1-1.0 MG/DL Aspartate Amino Transf (AST/SGOT) 22 5-34 U/L Alanine Aminotransferase (ALT/SGPT) 13 0-55 U/L Alkaline Phosphatase 96 40-136 U/L C-Reactive Protein High Sensitivity 0.43 0.00-0.50 MG/DL Total Protein 6.3 L 6.4-8.2 GM/DL Albumin 3.6 3.2-4.5 GM/DL Urine Color YELLOW Urine Clarity CLEAR Urine pH 7 5-9 Urine Specific [place] 1.010 L 1.016-1.022 Urine Protein NEGATIVE NEGATIVE Urine Glucose (UA) 4+ H NEGATIVE Urine Ketones 3+ H NEGATIVE Urine Nitrite NEGATIVE NEGATIVE Urine Bilirubin NEGATIVE NEGATIVE Urine Urobilinogen NORMAL NORMAL MG/DL Urine Leukocyte Esterase NEGATIVE NEGATIVE Urine RBC (Auto) NEGATIVE NEGATIVE Urine RBC NONE /HPF Urine WBC NONE /HPF Urine Squamous Epithelial Cells 0-2 /HPF Urine Crystals NONE /LPF Urine Bacteria TRACE /HPF Urine Casts NONE /LPF Urine Mucus NEGATIVE /LPF Urine Culture Indicated NO Glucometer 177 H 70-110 MG/DL My Orders Orders - THOMAS HERNANDEZ MD Cbc With Automated Diff (08/19/18 23:35) Comprehensive Metabolic Panel (08/19/18 23:35) Hs C Reactive Protein (08/19/18 23:35) Ua Culture If Indicated (08/19/18 23:35) Saline Lock/Iv-Start (08/19/18 23:35) Ns Iv 1000 Ml (Sodium Chloride 0.9%) (08/19/18 23:35) Ondansetron Injection (Zofran Injectio (08/19/18 23:45) Manual Differential (08/19/18 23:30) Hydromorphone Injection (Dilaudid Inject (08/19/18 23:59) Pantoprazole Injection (Protonix Injecti (08/20/18 00:00) Magnesium (08/20/18 00:11) Phosphorus (08/20/18 00:11) Ondansetron Injection (Zofran Injectio (08/20/18 02:10) Ketorolac Injection (Toradol Injection) (08/20/18 02:47) Saline Lock/Iv-Start (08/20/18 02:47) Ns Iv 1000 Ml (Sodium Chloride 0.9%) (08/20/18 02:47) Insulin (Regular) Human (Humulin R (Per (08/20/18 02:47) Accucheck Stat ONCE (08/20/18 03:50) Rx-Ondansetron Po (Rx-Zofran Po) (08/20/18 04:13) Lidocaine 2% Viscous 15 Ml (Xylocaine Vi (08/20/18 04:30) Antacid Suspension (Mylanta Suspension (08/20/18 04:30) Medications Given in ED Current Medications Medications Dose Ordered Sig/Reva Route Start Time Stop Time Status Last Admin Dose Admin Ondansetron HCl 4 mg ONCE ONCE IVP 08/19/18 23:45 08/19/18 23:46 DC 08/20/18 00:06 4 MG Ondansetron HCl 4 mg STK-MED ONCE .ROUTE 08/20/18 02:10 08/20/18 02:14 DC 08/20/18 02:16 4 MG Pantoprazole 40 mg ONCE ONCE IV 08/20/18 00:00 08/20/18 00:01 DC 08/20/18 00:13 40 MG Sodium Chloride 1,000 ml @ 0 mls/hr Q0M ONCE IV 08/19/18 23:35 08/19/18 23:37 DC 08/20/18 00:07 1,000 MLS/HR Sodium Chloride 1,000 ml @ 0 mls/hr Q0M ONCE IV 08/20/18 02:47 08/20/18 02:49 DC 08/20/18 03:00 1,000 MLS/HR Vital Signs/I&O 08/19/18 23:10 Temp 98.4 Pulse 96 Resp 16 B/P (MAP) 190/108 (135) Pulse Ox 96 O2 Delivery Room Air Progress Progress Note : Progress Note Seen and evaluated. IV via port access. Labs and UA ordered. Normal saline 1 L bolus. Zofran 4 mg IV ordered. We will give her Protonix 40 mg IV and Dilaudid 0.5 mg IV for epigastric pain. Monitor patient. Improved pain. Repeat Zofran given. 0400: Normal saline 1 L bolus and still lying. Patient did receive insulin 10 units IV as well. We did check blood sugar and that has dropped to 177. Overall feeling much better. She feels like she can go home and take her own medicines. We will send home Zofran as well as write prescription for that. Discharged home with return precautions. Patient and family verbalize understanding instructions and agreement with plan. Departure Impression Primary Impression: Nausea and vomiting Qualified Codes: R11.2 - Nausea with vomiting, unspecified Disposition: 01 HOME, SELF-CARE Condition: Improved Departure-Patient Inst. Decision time for Depature: 04:11 Referrals: RUBIO MEZA DO (PCP/Family) Primary Care Physician Patient Instructions: Acute Abdomen (Belly Pain), Adult (DC), Nausea and Vomiting, Adult (DC) Add. Discharge Instructions: Clear liquid diet for 24 hours and then advance as tolerated. Take medications as directed. Follow-up with your DrVasquez in one to 2 days for recheck. Return for worse pain, fever, vomiting, weakness, breathing problems or other concerns as needed. Scripts Ondansetron (Ondansetron Odt) 4 Mg Tab.rapdis 4 MG PO Q6H PRN for NAUSEA/VOMITING, #8 TAB 0 Refills Prov: THOMAS HERNANDEZ MD 08/20/18 THOMAS HERNANDEZ MD Aug 20, 2018 00:07
[2018-08-20 00:08] LABS: EOSINOPHILS % (MANUAL) 12 %; LYMPHOCYTES % (MANUAL) 16 %; MONOCYTES % (MANUAL) 5 %; NEUTROPHILS % (MANUAL) 67 %
[2018-08-20 00:29] LABS: MAGNESIUM 1.9 MG/DL (1.8-2.4)
[2018-08-20 01:30] LABS: BACTERIA,URINE TRACE /HPF; BILIRUBIN,URINE NEGATIVE (NEGATIVE); CLARITY,URINE CLEAR; COLOR,URINE YELLOW; GLUCOSE, URINE (UA) 4+ (NEGATIVE); KETONES,URINE 3+ (NEGATIVE); LEUKOCYTE ESTERASE ,URINE NEGATIVE (NEGATIVE); NITRITE,URINE NEGATIVE (NEGATIVE); PH,URINE 7 (5-9); PROTEIN,URINE NEGATIVE (NEGATIVE); SQUAMOUS EPITHELIAL CELL,UR 0-2 /HPF; UROBILINOGEN,URINE NORMAL (NORMAL)
[2018-08-20] MEDS ORDERED: ONDANSETRON 4 MG/2 ML (SDV) Z0FRAN ONE (02:10)
[2018-08-20] MEDS ORDERED: KETOROLAC 30 MG/ML VIAL IVP STA (02:47)
[2018-08-20] MEDS ORDERED: NS IV 1000 ML 1,000 ML IV ONE (02:47)
[2018-08-20] MEDS ORDERED: inSUlin (REGULAR) HUMAN 1 UNIT/0.01 ML (CHARGE PER UNIT) IV STA (02:47)
[2018-08-20] MEDS ORDERED: ONDA4TAB11 PO (04:12)
[2018-08-20] MEDS ORDERED: RX-ONDANSETRON 4 MG ODT (ZOFRAN) PPK #4 PO STA (04:13)
[2018-08-20] MEDS ORDERED: LIDOCAINE 2% VISCOUS 15 ML UDC PO ONE (04:30)
[2018-08-20] MEDS ORDERED: ANTACID SUSP 30 ML UDC (MYLANTA) PO ONE (04:30)
[2018-08-20 04:50] VITALS: BP 127/67
== END 2018-08-20 04:50 | disposition home or self-care (01) ==
LOC: EDUNIT# 22:22 → ER 22:23
DX: R11.2 Nausea with vomiting, unspecified (principal); R10.13 Epigastric pain; F41.9 Anxiety disorder, unspecified; J45.909 Unspecified asthma, uncomplicated; E78.00 Pure hypercholesterolemia, unspecified; I10 Essential (primary) hypertension; E11.9 Type 2 diabetes mellitus without complications; E03.9 Hypothyroidism, unspecified; G43.909 Migraine, unspecified, not intractable, without status migrainosus; G40.909 Epilepsy, unspecified, not intractable, without status epilepticus; F32.9 Major depressive disorder, single episode, unspecified; Z87.820 Personal history of traumatic brain injury; Z80.0 Family history of malignant neoplasm of digestive organs; Z82.49 Family history of ischemic heart disease and other diseases of the circulatory system; Z87.440 Personal history of urinary (tract) infections; Z87.19 Personal history of other diseases of the digestive system; Z90.710 Acquired absence of both cervix and uterus; Z88.2 Allergy status to sulfonamides; Z79.51 Long term (current) use of inhaled steroids; Z79.4 Long term (current) use of insulin; Z79.52 Long term (current) use of systemic steroids
CPT/HCPCS: 36415; 80053; 81000; 82962; 83735; 84100; 85007; 85027; 86141

== ENCOUNTER 2018-08-20 16:54 | Emergency (ER) | payer MEDICARE, MEDICAID ==
[~2018-08-20] VITALS: Ht 165.1 cm; Wt 63.6 kg
--- OUTSIDE RECORDS SUMMARY | 2018-08-20 17:12 | XMS REPORT | Encounter Summary ---
Author Author [facility] Organization [facility] Address Unknown Phone Unavailable Care Team Providers Care Cant Hooker Name Role Phone Charles Chau MD Unavailable Migue Patton MD PCP ToneSandra bagley MD 3 Sandra Wayne MD PCP Sandra Wayne MD 100 Reason for Visit * Reason Comments Appointment Encounter Details Date Type Department Care Team Description 07/29/2018 Telephone [facility] Balbina Matamoros, [facility] PUMP OILER-DIRECTOR OF FLIGHT OPERATIONS Ortho and Medical [address] [facility] [address] [place] [address] [address] [facility] [phone] [place] [address] Social History Tobacco Use Types [...] Miscellaneous Notes * Telephone Encounter - Rc Malhotra, RN - 07/29/2018 12:01 PM CDT Nurse [...]
--- OUTSIDE RECORDS SUMMARY | 2018-08-20 17:12 | XMS REPORT | Encounter Summary ---
Author Author [facility] Organization [facility] Address Unknown Phone Unavailable Care Team Providers Care Cms Expert Name Role Phone Charles Chau MD Unavailable Migue Patton MD PCP Sandra Wayne MD 3 Reason for Referral * Consult, Test & Treat (Urgent) Status Reason Specialty Diagnoses / Referred By Referred To Procedures Contact Contact No Auth Needed Specialty Endocrinology and Diagnoses Sandra Wayne [facility] Diabetes Services Type 1 diabetes MD Ortho and Medical Required / Endocrinology, mellitus with [address] Genetics (HCC) [address] [place] [id number] Phone: Reason for Visit * Reason Comments Establish Care Encounter Details Date Type Department Care Team Description 08/19/2018 Office Visit [facility] Sandra Wayne MD Type 1 diabetes mellitus Physicians - Internal [address] with complication (HCC) Medicine [address] (Primary Dx); [place] [address] Healthcare maintenance; [address] [phone] Orthostatic hypotension; [address] Immunosuppression due to [place], [place] drug therapy; [address] Influenza vaccine needed; [phone] Anxiety; Chronic abdominal pain; Acquired hypothyroidism; LAD [...] Bonifacio and she can be reached at [phone]. If she does not answer, please leave a voicemail. Out of respect for patient/ call volume, please only call once in a 24 hour period and Bonifacio will return your call as soon as she can. You may also message us in Timescape. Please note that it may take up to two business days to reply to Timescape messages. For refills on medications, please have your pharmacy fax a refill authorization request form to our office at . Please allow at least 3 business days for refill requests. For urgent issues after business hours/weekends/holidays call [phone] and request for the outpatient internal medicine physician to be paged. We offer same day appointments for your acute health concerns. These appointments are on a first come, first serve basis. Please call [phone] if you would like to make an [...] 09/26/2018 9:20 AM Yanet Cormier MD [facility] Neuro 10/08/2018 10:20 AM Taylor Avelar MD [facility] IM in this encounter Progress Notes * Sandra Wayne MD - 08/19/2018 8:40 AM CDT Formatting of this note may be different from the original. Subjective: History of Present Illness Chelsea Castillo is a 58 y.o. female. Patient presents today to [facility] care. O2 request. 58yo woman history of [...] and abdominal pain. She returned home to [place], [place] then evening of 07/18, experienced the abdominal pain with nausea and vomiting, and returned back to in [place]. 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 She lives several hours away in [facility] and does have a general practitioner that [...] did have an EEG done at [facility] (hospital notes indicate patient did not have [...] anxiety, and pain -managed by PCP in [place], [place] -discussed with patient that she would [...] counseled on regular eye exams. Follows michael [facility], saw them last in 2017 Immunosuppression due to drug therapy -on Plaquenil for arthritis - uncertain diagnosis -patient states she receives this medication from her PCP -follows with [facility] [place] -obtain outside records -high-dose flu vaccine today [...] to have a primary care physician in [facility], close to home. We discussed that she could follow here for primary care and care coordination with her specialist, and then continue to follow with Dr. Patton' s office in [place] for more urgent care issues. She however [...] appointment with her primary care physician in [place] today, we will not make any significant [...] any problems or questions. My nurse is Bonifaico and she can be reached at [phone]. If she does not answer, please leave a voicemail. Out of respect for patient/ call volume, please only call once in a 24 hour period and Bonifacio will return your call as soon as she can. You may also message us in Timescape. Please note that it may take up to two business days to reply to Timescape messages. For refills on medications, please have your pharmacy fax a refill authorization request form to our office at . Please allow at least 3 business days for refill requests. For urgent issues after business hours/weekends/holidays call [phone] and request for the outpatient internal medicine physician to be paged. We offer same day appointments for your acute health concerns. These appointments are on a first come, first serve basis. Please call [phone] if you would like to make an appointment. If I am not available, you can see any of my partners or try to see me the next day (call at 8am). Take care, Dr. Wayne and Bonifacio Future Appointments Date Time Provider Department [place] 08/23/2018 12:30 PM David Chávez MD S[facility] SPINE 09/13/2018 8:00 AM Gunnar Kirk MD IMGASTRO [facility] IM 09/26/2018 9:20 AM Yanet Cormier MD [facility] Neuro 10/08/2018 10:20 AM Taylor Avelar MD [facility] --- in this encounter Miscellaneous Notes * [...] this medication from her PCP -follows with [facility] -obtain outside records -high-dose flu vaccine [...] -Eye exam: counseled on regular eye exams. Ezra rodriguez [facility], saw them last in 2016 * Assessment [...] anxiety, and pain -managed by PCP in [place] -discussed with patient that she would [...]
--- OUTSIDE RECORDS SUMMARY | 2018-08-20 17:12 | XMS REPORT | Clinical Summary ---
Author Author [facility] Organization [facility] Address Unknown Phone Unavailable Care Team Providers Care Registration Manager Name Role Phone Charles hCau MD Unavailable Sandra Wayne MD 3 Sandra Wayne MD PCP Sandra Wayne MD 100 Source Comments Some departments are not documenting in the electronic medical record. If you do not see the information that you expected, contact Release of Information in the Health Information Management department at [phone] for further assistance in locating additional records.[facility] Allergies Active Allergy Reactions Severity Noted [...] Dissolve one tablet by 90 tablet 0 07/18/20 Active 4 mg rapid dissolve mouth every [...] counseled on regular eye exams. Follows w [facility], saw them last in 2016 [...] this medication from her PCP -follows with [facility] [place] -obtain outside records -high-dose flu vaccine today [...] anxiety, and pain -managed by PCP in [place], [place] -discussed with patient that she would [...] MD 07/29/2018 Telephone Gastroenterology Balbina Matamoros, Appointment HOME HEALTH AIDE-LABOR CONTRACTOR 07/24/2018 Emergency Emergency Medicine 07/23/2018 Telephone Gastroenterology Balbina Matamoros, Prior Authorization HOME HEALTH AIDE-LABOR CONTRACTOR (Ondansetron ) 07/19/2018 [facility] Hoa Sarkar MD Chronic abdominal pain - Encounter Jimbo Gordon DO 07/22/2018 Sandra Ho MD 07/19/2018 Procedure Pass 07/19/2018 Procedure Pass 07/19/2018 Procedure Pass 07/18/2018 Office Visit Gastroenterology Balbina Matamoros, Abdominal pain, HOME HEALTH AIDE-LABOR CONTRACTOR unspecified abdominal location (Primary Dx); Other dysphagia; [...] COLORECTAL CANCER 2018 2013 (Previously completed) SCREENING DILATED EYE EXAM 09/19/2018 09/19/2017 (Previously completed) BREAST CANCER SCREENING 11/19/2018 11/19/2017 (Previously completed) HBA1C 01/16/2019 07/19/2018 INFLUENZA VACCINE Completed 08/19/2018 Procedures Procedure Name Priority Date/Time Associated Diagnosis [...] in the results section. ANTI MANSFIELD(SM) ANTI INDUSTRIAL SPECIALIST Routine 07/21/2018 Results for this AB 5:58 [...] Urine Performing Organization Address City/State/Zipcode Phone Number MAIN LAB [address] [place] [address] * URINALYSIS DIPSTICK (08/04/2018 7:12 PM) Only the most recent of 4 results within the time period is included. Color,UA YELLOW [facility] Turbidity,UA CLEAR CLEAR-CLEAR [facility] Specific [place]-Urine 1.020 1.003 - 1.035 [facility] [...] Specimen Urine - Urine Performing Organization Address [facility] [place] [place] Phone Number MAIN LAB [address] [place] [address] * CHEST SINGLE VIEW (08/04/2018 5:10 PM) [...] on 08/05/2018 7:27 AM. Performing Organization Address [facility] [place] [place] Phone Number RAD RESULTS * FREE T4-FREE THYROXINE (08/04/2018 4:46 PM) T4-Free 1.1 0.6 - 1.6 NG/DL MAIN LAB Performing Organization Address [facility] [place] [place] Phone Number MAIN LAB [address] [place] [address] * TSH WITH FREE T4 REFLEX (08/04/2018 4:46 PM) Only the most recent of 2 results within the time period is included. TSH 0.330 (L) 0.35 - 5.00 MCU/ML MAIN LAB Specimen Blood Performing Organization Address [facility] [place] [place] Phone Number MAIN LAB [address] [place] [address] * POC TROPONIN (08/04/2018 4:46 PM) Only the most recent of 2 results within the time period is included. Bvtgpgvx-R-KVY 0.02 0.00 - 0.05 NG/ML MAIN LAB Performing Organization Address [facility] [place] [place] Phone Number [email or web address] MAIN LAB [address] [place] [address] * POC GLUCOSE (08/04/2018 4:46 PM) Only the most recent of 17 results within the time period is included. Glucose, POC 212 (H) 70 - 100 MG/DL [email or web address] MAIN LAB Performing Organization Address [facility] [place] [place] Phone Number [facility] [address] [place] [address] * CBC AND DIFF (08/04/2018 4:46 PM) [...] Blood Performing Organization Address City/State/Zipcode Phone Number [facility] [address] [place] [address] * COMPREHENSIVE METABOLIC PANEL (08/04/2018 4:46 PM) [...] for questions. Specimen Blood Performing Organization Address City/[facility] Phone Number MAIN LAB [address] [place] [address] * TELEMETRY STRIPS-SCAN (07/25/2018 10:18 AM) Narrative Performed At Ordered by an unspecified provider. * LIPASE (07/24/2018 6:02 PM) Only the most recent of 2 results within the time period is included. Lipase 13 11 - 82 U/L MAIN LAB Specimen Blood Performing Organization Address [facility] Phone Number MAIN LAB [address] [place] [address] * ECG-SCAN (07/21/2018 1:09 PM) Narrative Performed At Ordered by an unspecified provider. * CORTISOL 60 MINUTES POST (07/21/2018 10:10 AM) Cortisol 60 Min 22.6 ug/dL [facility] MAIN [facility] Specimen Blood Performing Organization Address City/[facility]/Zipcode Phone Number [email or web address] MAIN LAB [address] [place] [address] * CORTISOL 30 MINUTES POST (07/21/2018 9:30 AM) Cortisol 30 Min 19.4 ug/dL [email or web address] MAIN LAB Specimen Blood Performing Organization Address [facility]/Zipcode Phone Number [email or web address] MAIN LAB [address] [place] [address] * CORTISOL BASELINE (07/21/2018 8:40 AM) Cortisol Baseline 13.6 ug/dL [facility] MAIN [facility] Specimen Blood Performing Organization Address City/State/[facility] Phone Number [facility] [address] [place] [address] * ACTH (07/21/2018 8:40 AM) Adrenocorticotropic 73 (H) REFERENCE LAB Hormone Comment: Unit: pg/mL REFERENCE VALUE - 7.2-63 (a.m. collection) [facility], [address] [place] [address] Specimen Blood Performing Organization Address [facility]/Zipcode Phone Number REFERENCE LAB REFERENCE LAB See results for address. * CARBAMAZEPINE LEVEL (07/21/2018 8:40 AM) Carbamazepine 3.2 (L) 6.0 - 10.0 MCG/ML [facility] Specimen Blood Performing Organization Address [facility] Phone Number [facility] [address] [place] [address] * RHEUMATOID FACTOR (RF) (07/21/2018 5:58 AM) Rheum Factor Screen <20 <24 IU/mL [facility] Specimen Blood Performing Organization Address [facility] [place] [place] Phone Number [facility] [address] [place] [address] * PERIPHERAL SMEAR (07/21/2018 5:58 AM) Peripheral Smear Microcytic, hypochromic red [facility] cells. Consider iron deficiency anemia, anemia of chronic disease, thalassemia, and sideroblastic anemia. MILD EOSINOPHILIA. PLATELETS APPEAR NORMAL IN NUMBER AND MORPHOLOGY. Pathologist Signature INTERPRETED BY CHONG ROYAL [facility] BL[facility] [place] By the PATH SIGNATURE ABOVE, I attest that I have personally formulated the final interpretation expressed in this report and that the above diagnosis is based upon my examination of the slides and/or other material indicated in this report. Specimen Blood Performing Organization Address [facility] Phone Number [facility] [address] [place] [address] * ANTI MANSFIELD(SM) ANTI INDUSTRIAL SPECIALIST AB (07/21/2018 5:58 AM) Anti-Mansfield <0.2Comment: Interpretation: <1.0 AI [facility] MAIN [facility] Negative Anti-INDUSTRIAL SPECIALIST <0.2Comment: Interpretation: <1.0 AI MAIN LAB Negative Specimen Blood Performing Organization Address [facility] Phone Number MAIN LAB [address] [place] [address] * SCL 70 ANTIBODIES (07/21/2018 5:58 AM) SCL70 Ab <0.2 <1.0 AI MAIN LAB Comment: Interpretation: Negative NOTE NEW METHODOLOGY AND REFERENCE RANGE Specimen Blood Performing Organization Address [facility] [place], [place] Phone Number MAIN LAB [address] [place] [address] * ANTI-DNA DOUBLE STRAND (07/21/2018 5:58 AM) DNA Double Strand AB <10 <10 [facility] MAIN LAB Specimen Blood Performing Organization Address [facility] [place], [place] Phone Number MAIN LAB [address] [place] [address] * CENTROMERE ANTIBODIES (07/21/2018 5:58 AM) Centromere Antibody <0.2 <1.0 AI MAIN LAB Comment: Interpretation: Negative NOTE NEW METHODOLOGY AND REFERENCE RANGE Specimen Blood Performing Organization Address [facility] [place], [place] Phone Number MAIN LAB [address] [place] [address] * CCP IGG ANTIBODY (07/21/2018 5:58 AM) CCP IgG Antibody <0.5Comment: NOTE NEW <3.0 [IU]/mL [facility] METHODOLOGY AND REFERENCE RANGE Specimen Blood Performing Organization [facility] [place], [place] Phone Number MAIN LAB [address] [place] [address] * ANTI SSA ANTI SSB AB (07/21/2018 5:58 AM) Anti-SSA <0.2Comment: Interpretation: <1.0 AI MAIN LAB Negative Anti-SSB 0.2Comment: Interpretation: <1.0 AI MAIN LAB Negative Specimen Blood Performing Organization Address [facility] [place] [place] Phone Number MAIN LAB [address] [place] [address] * ANTI-NUCLEAR ANTIBODY(HERNAN) (07/21/2018 5:58 AM) HERNAN Screen <80 <80 [facility] MAIN LAB Specimen Blood Performing Organization Address [facility] [place] [place] Phone Number MAIN LAB [address] [place] [address] * CBC (07/20/2018 5:30 AM) White Blood [...] MAIN LAB Specimen Blood Performing Organization Address [facility] [place], [place] Phone Number MAIN LAB [address] [place] [address] * PHOSPHORUS (07/20/2018 5:30 AM) Only the most recent of 2 results within the time period is included. Phosphorus 4.4 (H) 2.0 - 4.0 MG/DL MAIN LAB Specimen Blood Performing Organization Address [facility] [place], [place] Phone Number MAIN LAB [address] [place] [phone] * MAGNESIUM (07/20/2018 5:30 AM) Only the most recent of 2 results within the time period is included. Magnesium 2.1 1.6 - 2.6 mg/dL MAIN LAB Specimen Blood Performing Organization Address [facility] [place] [place] Phone Number MAIN LAB [address] [place] [address] * IRON + BINDING CAPACITY + %SAT+ FERRITIN (07/19/2018 5:00 PM) Iron 24 (L) 50 - 160 MCG/DL MAIN LAB Iron Binding-TIBC 383 (H) 270 - 380 MCG/DL MAIN LAB % Saturation 6 (L) 28 - 42 % [facility] MAIN [facility] Ferritin 6 (L) 10 - 200 NG/ML MAIN LAB Specimen Blood Performing Organization Address [facility] [place] [place] Phone Number MAIN LAB [address] [place] [address] * IMMUNOGLOBULIN E (IGE) (07/19/2018 5:00 PM) IgE 24 <165 IU/ML MAIN LAB Specimen Blood Performing Organization Address [facility] Phone Number MAIN LAB [address] [place] [address] * FOLATE, SERUM (07/19/2018 5:00 PM) Serum Folate 15.7Comment: NOTE NEW >3.9 NG/ML MAIN LAB REFERENCE RANGES Specimen Blood Performing Organization Address City/[facility]/Zipcode Phone Number MAIN LAB [address] [place] [address] * VITAMIN B12 (07/19/2018 5:00 PM) Vitamin B12 751 180 - 914 PG/ML MAIN LAB Specimen Blood Performing Organization Address [facility] Cent[facility] Phone Number MAIN LAB [address] [place] [address] * CORTISOL-AM (07/19/2018 5:00 PM) Cortisol-AM 6.3 (L) 6.7 - 22.6 MCG/DL MAIN LAB Specimen Blood Performing Organization Address [facility] Cent[facility] Phone Number MAIN LAB [address] [place] [address] * CORTISOL,RANDOM (07/19/2018 6:20 AM) Cortisol, Random 2.8 (L) 5.0 - 20.0 MCG/DL MAIN LAB Specimen Blood Performing Organization Address [facility] Cent[facility] Phone Number MAIN LAB [address] [place] [address] * SED RATE (07/19/2018 6:20 AM) Sed Rate -ESR 5 0 - 30 MM/HR MAIN LAB Specimen Blood Performing Organization Address [facility]/Zipcode Phone Number MAIN LAB [address] [place] [address] * C REACTIVE PROTEIN (CRP) (07/19/2018 6:20 AM) C-Reactive Protein 0.33 <1.0 MG/DL MAIN LAB Specimen Blood Performing Organization Address [facility]/Zipcode Phone Number MAIN LAB [address] [place] [address] * HEMOGLOBIN A1C (07/19/2018 6:20 AM) Hemoglobin A1C 11.4 (H) 4.0 - 6.0 % [facility] MAIN [facility] Comment: The ADA recommends that most patients with type 1 and type 2 diabetes maintain an A1c level <7%. Specimen Blood Performing Organization Address [facility]/Zipcode Phone Number [facility] [address] [place] [address] * AMYLASE (07/19/2018 6:20 AM) Amylase 43 24 - 100 U/L [facility] MAIN [facility] Specimen Blood Performing Organization Address [facility]/Zipcode Phone Number [facility] [address] [place] [address] * CRITICAL CARE (07/19/2018 4:00 AM) Narrative [...] axillary lymphadenopathy, slightly greater on the left. Net Making Supervisor left axillary lymph node measures 2.5 x [...] bilateral external iliac and inguinal lymph nodes. Net Making Supervisor right external iliac lymph node measures 2.4 [...] axillary lymphadenopathy, slightly greater on the left. Net Making Supervisor left axillary lymph node measures 2.5 x [...] bilateral external iliac and inguinal lymph nodes. Net Making Supervisor right external iliac lymph node measures 2.4 [...] axillary lymphadenopathy, slightly greater on the left. Net Making Supervisor left axillary lymph node measures 2.5 x [...] bilateral external iliac and inguinal lymph nodes. Net Making Supervisor right external iliac lymph node measures 2.4 [...] axillary lymphadenopathy, slightly greater on the left. Net Making Supervisor left axillary lymph node measures 2.5 x [...] bilateral external iliac and inguinal lymph nodes. Net Making Supervisor right external iliac lymph node measures 2.4 [...] on 07/19/2018 2:19 AM. Performing Organization Address City/[facility] Phone Number RAD RESULTS * POC CREATININE, RAD (07/19/2018 2:03 AM) Creatinine, POC 1.2 (H) 0.4 - 1.00 MG/DL [email or web address] MAIN LAB Performing Organization Address [facility] [place] [place] Phone Number [email or web address] MAIN LAB [address] [place] [phone] * ECG-SCAN (07/19/2018 2:00 AM) Narrative Performed At Ordered by an unspecified provider. * POC LACTATE (07/19/2018 2:00 AM) LACTIC ACID POC 1.4 0.5 - 2.0 MMOL/L [facility] MAIN [facility] Performing Organization Address [facility] Phone Number MAIN LAB [address] [place] [address] * CULTURE-BLOOD W/SENSITIVITY (07/19/2018 1:40 AM) Only the most recent of 2 results within the time period is included. Battery Name BLOOD CULTURE [facility] Specimen Description BLOOD [facility] LEFT UA Special Requests NONE [facility] Culture NO GROWTH 5 DAYS [facility] MAIN [facility] Report Status FINAL [facility]IN [facility] 07/25/2018 Specimen Blood Performing Organization Address City/[facility] Phone Number [facility] [address] [place] [address] from Last 3 Months
--- OUTSIDE RECORDS SUMMARY | 2018-08-20 17:12 | XMS REPORT | Encounter Summary ---
Author Author [facility] Organization [facility] Address Unknown Phone Unavailable Care Team Providers Care Acting Instructor Name Role Phone Charles Chau MD Unavailable Migue Patton MD PCP Reason for Visit * Reason Comments Chest Pain intermittent since yesterday, associated dizziness, Encounter Details Date Type Department Care Team Description 08/04/2018 Emergency Emergency Dept. Hoa Zhao MD [address] [place] [address] [place] [address] [phone] Social History Tobacco Use Types Packs/Day Years [...] hot shower. Use medicines Aspirin or other suwp-zlw-hqxynab pain medicines, such as ibuprofen and acetaminophen, [...] you have ever had." Date Last Reviewed: 01/17/201819998395-[address] [employer] [place] [address]. All rights reserved. This information is not [...] loosen secretions in the nose and lungs. Npfx-rff-zhbruqc cold medicines will not shorten the length of time youre sick, but they may be helpful for the following symptoms: cough, sore throat, and nasal and sinus congestion. If you take prescription medicines, ask your healthcare provider or pharmacist which zqgm-mqa-uipvbps medicines are safe to use. (Note: Don't [...] with a muffled voice Date Last Reviewed: 04/19/201819994840-1532 [employer]. [address] [place] [address]. All rights reserved. This information is not [...] AM. EKG: Sinus rhythm heart rate 77 ID 160, QRS 80, QTc 421 No acute [...] Disposition/Follow up Discharge Migue Patton III, MD [address] [facility] [place] [facility] [place] [address] In 3 days Medications: Discharge Medication List [...] Address City/State/Zipcode Phone Number [facility] [address] [place] [address] * URINALYSIS DIPSTICK (08/04/2018 7:12 PM) Color,UA YELLOW [facility] Turbidity,UA CLEAR CLEAR-CLEAR [facility] MAIN [facility] Specific [place]-Urine 1.020 1.003 - 1.035 [facility] MAIN LAB [...] Specimen Urine - Urine Performing Organization Address City/[facility] Phone Number [facility] [address] [place] [address] * CHEST SINGLE VIEW (08/04/2018 5:10 PM) [...] on 08/05/2018 7:27 AM. Performing Organization Address City/[facility] Phone Number [facility] RAD RESULTS * FREE T4-FREE THYROXINE (08/04/2018 4:46 PM) T4-Free 1.1 0.6 - 1.6 NG/DL [facility] MAIN [facility] Performing Organization Address City/[facility] Phone Number [facility] [address] [place] [address] * POC TROPONIN (08/04/2018 4:46 PM) Flafvswy-C-MWE 0.02 0.00 - 0.05 NG/ML [facility]IN [facility] Performing Organization Address [facility] Phone Number [facility] [address] [place] [phone] * POC GLUCOSE (08/04/2018 4:46 PM) Glucose, POC 212 (H) 70 - 100 MG/DL [facility]IN [facility] Performing Organization Address [facility] Phone Number [facility] [address] [place] [address] * TSH WITH FREE T4 REFLEX (08/04/2018 4:46 PM) TSH 0.330 (L) 0.35 - 5.00 MCU/ML [facility]IN [facility] Specimen Blood Performing Organization Address [facility] Phone Number [facility] [address] [place] [address] * COMPREHENSIVE METABOLIC PANEL (08/04/2018 4:46 PM) [...] for questions. Specimen Blood Performing Organization Address City/[facility]/Zipcode Phone Number [facility]IN [facility] [address] [place] [address] * CBC AND DIFF (08/04/2018 4:46 PM) [...] MAIN LAB Specimen Blood Performing Organization Address City/[facility]/Zipcode Phone Number [facility] [address] [place] [address] in this encounter Visit Diagnoses Diagnosis Acute [...]
--- OUTSIDE RECORDS SUMMARY | 2018-08-20 17:13 | XMS REPORT | Encounter Summary ---
Author Author [facility] Organization [facility] Address Unknown Phone Unavailable Care Team Providers Care Interior Design Consultant Name Role Phone Charles Chau MD Unavailable Migue Patton MD PCP Reason for Visit * Reason Comments Prior Authorization Ondansetron Encounter Details Date Type Department Care Team Description 07/23/2018 Telephone [facility] Balbina Matamoros, Prior Authorization Physicians GAUGE CHECKER-GROOVER RUNNER (Ondansetron ) [facility] [address] [place] [address] [phone] [place] [address] Social History Tobacco Use Types [...] CDT Completed PA for medication Ondansetron through [employer], waiting on approval or denial. in this encounter Plan of Treatment Not on fileas of this encounter Visit Diagnoses Not on filein this encounter
--- OUTSIDE RECORDS SUMMARY | 2018-08-20 17:13 | XMS REPORT | Encounter Summary ---
Author Author [facility] Organization [facility] Address Unknown Phone Unavailable Care Team Providers Care Stripping Shovel Oiler Name Role Phone Charles Chau MD Unavailable Migue Patton MD PCP Reason for Visit * Reason Comments Abdominal pain diabetes x 2 days with nausea and diarrhea Released from hospital sunday night for same symptoms. hx of DM, pt reports sugars was 112 about an hour ago Encounter Details Date Type Department Care Team Description 07/24/2018 Emergency Emergency Dept. [address] [place] [address]. [place] [address] Social History Tobacco Use Types Packs/Day Years [...] sent through Care Everywhere.* Headaches, Self-Care for (LIBERIAN) * Vomiting (Adult) (LIBERIAN) in this encounter Medications at Time of [...] with neurology tomorrow. History provided by: Patient certified court/medical interpreter used: No Review of Systems: Review [...] : Negative QC: Acceptable Urine Lot #: [id number] EKG: NSR at 71 bpm ED Course: The pt was seen and evaluated by Matias Kazmaier, MERCHANDISING CONSULTANT Labs were ordered. Pt was given compazine, [...] Disposition/Follow up Discharge Migue Patton III, MD [address] [facility] [address] As needed Dpt Ku, Neurology [address] [facility] [address] In 1 day as scheduled Emergency Dept. [address] [place] [address]. [facility] [id number] If symptoms worsen Medications: New Prescriptions No medications on file Procedure Notes: Procedures Attestation / Supervision: Perla Boyd, acacia scribing for and in the presence of Marcela Berman APRN. Perla Irizarry Attestation / Supervision Note concerning Chelsea Castillo: The service was provided by the GASSER MACHINE OPERATOR alone with immediate availability of a physician [...] at her side. She was discharged from [facility] on Sunday and doctor wanted to keep her another day, but she wanted to go home because she was feeling better. She reports that nausea and vomiting and migraine started last night and they drove here from where they live near [place], [place] as all her doctors are here. [...] Specimen Urine - Urine Performing Organization Address City/State/[facility] Phone Number MAIN LAB [address] [place] [address] * URINALYSIS DIPSTICK (07/24/2018 9:19 PM) Color,UA YELLOW [facility] Turbidity,UA CLEAR CLEAR-CLEAR [facility] Specific [place]-Urine 1.016 1.003 - 1.035 [facility] [...] Specimen Urine - Urine Performing Organization Address [facility] Phone Number [facility] [address] [place] [address] * LIPASE (07/24/2018 6:02 PM) Lipase 13 11 - 82 U/L MAIN LAB Specimen Blood Performing Organization Address [facility] Phone Number [facility] [address] [place] [address] * COMPREHENSIVE METABOLIC PANEL (07/24/2018 6:02 PM) [...] Address City/State/Zipcode Phone Number [facility] [address] [place] [address] * CBC AND DIFF (07/24/2018 6:02 PM) [...] Address City/State/Zipcode Phone Number [facility] [address] [place] [address] in this encounter Visit Diagnoses Diagnosis Acute [...]
--- OUTSIDE RECORDS SUMMARY | 2018-08-20 17:15 | XMS REPORT | Encounter Summary ---
Author Author [facility] Organization [facility] Address Unknown Phone Unavailable Care Team Providers Care Die Cutting Machine Operator Name Role Phone Charles Chau MD Unavailable Rubio Meza MD PCP Reason for Referral * Consult, Test & Treat (Routine) Status Reason Specialty Diagnoses / Referred By Referred To Procedures Contact Contact New Request Specialty Rheumatology Diagnoses Leisa Chamberlain MD [facility] Im Services Abdominal pain, [address] Rheumatology Cl Required unspecified [address] [facility] abdominal [place] [id number] [address] [place], [place] Phone: [phone] Phone: * (Routine) Status Reason Specialty Diagnoses / Referred By Referred To Procedures Contact Contact New Request Procedures Sandra Ho F/U APPT MD REQUEST: [facility] [address] [facility] ([facility] [place] [address] [place] [address] * (Routine) Status Reason Specialty Diagnoses / Referred By Referred To Procedures Contact Contact New Request Procedures Sandra Ho F/U APPT MD REQUEST: [facility] [address] [facility] ([facility] [place] [address] [place] [address] Reason for Visit * Reason Comments Head Pain Vomiting * Auth/Cert Status Reason Specialty Diagnoses / Referred By Referred To Procedures Contact Contact Diagnoses Abdominal pain Encounter Details Date Type Department Care Team Description 07/19/2018 [facility] CARDIAC AND FAMILY Hoa Sarkar MD Chronic abdominal pain - Encounter MEDICINE PROGRESSIVE CARE [address] 07/22/2018 [address] [place] [address] [place] [address] [phone] B Jimbo melton DO F ink, Jennifer, MD [address] [facility] [place] [address] [place] [address] [phone] Social History Tobacco Use Types Packs/Day Years [...] and abdominal pain. She returned home to [place], [place] then evening of 07/18, experienced the abdominal pain with nausea and vomiting, and returned back to in [place]. She was admitted to Internal Medicine inpatient [...] while inpatient, and recommendation of continuing her PLANT CONTROLS SPECIALIST Cymbalta and Xanax for her depression and [...] and is being discharged on her continued PLANT CONTROLS SPECIALIST Treseba, along with Aspart 6-6-10 with meals [...] home, you can call a dietitian at [phone]. Activity as Tolerated It is important to [...] education. The class is held in the [facility] on the 5th floor of the Medical Office Building, every Sunday from 10:00-12:00 noon and every Sunday 3:00 pm - 5:00 pm. The class is not held on actual or observed holidays. You do not need an appointment for this and we will not bill your insurance. More diabetes education and individual nutrition appointments are offered at the [facility]. Most insurance plans cover these services if you have a referral from your doctor. Call [phone], option 3 or go to [email or web address] for details. Report These Signs and Symptoms Please contact your doctor if you have any of the following symptoms: temperature higher than 100 degrees F, uncontrolled pain, persistent nausea and/ or vomiting, difficulty breathing, chest pain, severe abdominal pain, unable to urinate or unable to have bowel movement. Questions About Your Stay For questions or concerns regarding your hospital stay. Call [phone] Discharging attending physician: LEISA CHAMBERLAIN [[id number]] Diabetic Diet You should eat between 1600 and 2000 calories per day. This is equal to 60g ( grams) of carbohydrates per meal, and 30g of carbohydrates for a bedtime snack. If you have questions about your diet after you go home, you can call a dietitian at [phone]. Current Discharge Medication List START taking these medications Details acetaminophen/lidocaine/antacid DS(#) (GI COCKTAIL) 1:1:3 Take 30 mL by mouth three times daily as needed. Qty: 300 mL, Refills: 0 PRESCRIPTION TYPE: Fax This prescription was faxed to the pharmacy Pharmacy: [address] ( #: [phone]) coenzyme Q10(+) 100 mg cap Take one [...] to schedule a follow up appointment - [phone] If you have any questions, please feel free to call [facility] at [phone] and you will directed to the area [...] questions, please feel free to call at [phone] and you will directed to the area [...] Continue Synthroid DM - A1c 11% - PLANT CONTROLS SPECIALIST Treseba 17U and Aspart 6-6-10, MDCF Plan: - Lyrica for neuropathy - Insulin as noted above History of Seizures - Unclear how diagnosis was established; patient reports being told she has Absence seizures - PLANT CONTROLS SPECIALIST Tegretol - Also reports taking Ativan 2mg BID for seizures??? (but prescribed as Ativan 1mg q4h PRN for nausea and prescribed by PCP) - No history of EEG per patient Plan: - Continue Tegretol - Decrease Ativan to 1mg BID PRN so as not to withdrawal - Will schedule neuro follow up outpatient Depression and Anxiety - Uncontrolled - PLANT CONTROLS SPECIALIST Cymbalta and Xanax Plan: - Continue medications per psych recommendations Orthostatic Hypotension - Continue Florinef Plan: - Establish care with Outpatient Internal medicine at for continued care Allergies - Continue Zyrtec and Singulair Estrogen Replacement - On topical and tablet. Would like to continue topical only on discharge. - Discussed w/ ASSEMBLER WET WASH - OK to discontinue oral estrogen w/o [...] Chamberlain MD Date: 07/22/2018 Internal Medicine, Hospitalist [phone] Subjective Chelsea Castillo is a 58 y.o. [...] 0432) POC Glucose (Download): (!) 103 (07/22/18 0874) Radiology and other Diagnostics Review: No pertinent [...] Score: 42.48 Basic Mobility CMS 0-100%: 36.99 [facility] G Code Modifier for Basic Mobility: [...] Continue Synthroid DM - A1c 11% - PLANT CONTROLS SPECIALIST Treseba 17U and Aspart 4-4-10 Plan: - Continue PLANT CONTROLS SPECIALIST insulin and add SS. Titrate as needed - Lyrica for neuropathy History of Seizures - Unclear how diagnosis was established; patient reports being told she has Absence seizures - PLANT CONTROLS SPECIALIST Tegretol - Also reports taking Ativan 2mg BID for seizures??? (but prescribed as Ativan 1mg q4h PRN for nausea and prescribed by PCP) Plan: - Continue Tegretol - Decrease Ativan to 1mg BID PRN so as not to withdrawal - Will schedule neuro follow up outpatient - no hx EEG per pt or her HB Depression and Anxiety - Uncontrolled - PLANT CONTROLS SPECIALIST Cymbalta and Xanax Plan: - Continue medications per psych recommendations Orthostatic Hypotension - Continue Florinef Plan: - Establish care with Outpatient Internal medicine at for continued care Allergies - Continue Zyrtec and Singulair Estrogen Replacement - On topical and tablet. Would like to continue topical only on discharge. Discuss with ASSEMBLER WET WASH if need to taper oral estrogen. Plan: - Will contact ASSEMBLER WET WASH about possible need to taper oral estrogen? [...] Chamberlain MD Date: 07/21/2018 Internal Medicine, Hospitalist [phone] Subjective Chelsea Castillo is a 58 y.o. [...] Continue Synthroid DM - A1c 11% - PLANT CONTROLS SPECIALIST Treseba 17U and Aspart 4-4-10 Plan: - Continue PLANT CONTROLS SPECIALIST insulin and add SS. Titrate as needed - Lyrica for neuropathy H/o Szs? - PLANT CONTROLS SPECIALIST Tegretol - Also reports taking Ativan 2mg BID for seizures??? (but prescribed as Ativan 1mg q4h PRN for nausea and prescribed by PCP) Plan: - Continue Tegretol. Check level - Decrease Ativan to 1mg BID PRN so as not to withdrawal. Likely needs Neuro follow up outpatient to assess regimen and appropriateness of regimen Depression and Anxiety - Uncontrolled - PLANT CONTROLS SPECIALIST Cymbalta and Xanax Plan: - Continue Psych Orthostatic Hypotension - Continue Florinef Allergies - Continue Zyrtec and Singulair Estrogen Replacement - On topical and tablet. Would like to continue topical only on discharge. Discuss with ASSEMBLER WET WASH if need to taper oral estrogen. FEN: No IVFs, monitor lytes, CLD PPX: Lovenox Code: Full Dispo: Continue admission to Med 3 Seen and discussed with Dr. Bulmaro Holguin PGY-3 [id number] ATTESTATION I personally performed the ortega portions [...] Chamberlain MD Date: 07/20/2018 Internal Medicine, Hospitalist [phone] Subjective Chelsea Castillo is a 58 y.o. [...] and a.m. 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 Placed on sliding scale for now FEN: no ivf, replete as needed, NPO until awaken then can advance as tolerated to diabetic diet Code: full for now, needs further discussion with patient Dispo: admit to medicine PPx: lovenox Patient to be discussed with attending general production manager __ Primary Care Physician: Rubio Meza III [...] 07/19/18 2:52 AM Result Value Ref Range Ksgglaog-X-JNN 0.01 0.00 - 0.05 NG/ML URINALYSIS DIPSTICK Collection Time: 07/19/18 4:10 AM Result Value Ref Range Color,UA YELLOW Turbidity,UA CLEAR CLEAR-CLEAR Specific [place]-Urine 1.030 1.003 - 1.035 pH,UA 8.0 5.0 [...] - continuing Synthroid DM - HbA1C 11.4; PLANT CONTROLS SPECIALIST Humalog 02/20/10; Treseba 17U --> LDCF while [...] Care plan was discussed with the patient, family service caseworker, house staff, and pharmacist. Staff Name: Sandra Ho MD Date: 07/19/2018 in this encounter Consult Notes * Amada Wolf MD - 07/20/2018 1:16 PM CDT Associated Order(s): CONSULT ADULT PSYCHIATRY PHYSICIAN Formatting of this note may be different from the original. PSYCHIATRY CONSULT NOTE Room/Bed: [place] [address] Admission Date: 07/19/2018 LOS: 1 day Consult type: Opinion with orders Reason for Consult: Depression Assessment: 1. Other specified depressive disorder 2. Other specified anxiety disorder 3. Stimulant use disorder, in sustained remission 4. R/O PTSD Recommendations: - Agree with adrenal workup given abdominal pain and low random cortisol - Agree with holding PLANT CONTROLS SPECIALIST Adderall at this time - Would increase Cymbalta to 90mg Qday for better control of anxiety - Continue PLANT CONTROLS SPECIALIST Tegretol, Pregabalin given suggestion of seizure d/o per patient' s report? Vs what sounds like dissociative episodes per interview today Seen and discussed with: Dr. Connelly Please feel free to contact us with any additional questions or concerns by paging the consult team between 8am and 5pm on weekdays and between 8am and 3pm on weekends at [phone]. Otherwise, page the vice president pharmacy general production manager. Chief Concern: "I don't know" History of [...] over 20 years ago. Psychosocial History: From [facility]. Did not complete highschool, because got . Grew up with her mother and 6 siblings. 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 5 years, together 20 years. First marriage [...] Sustained Cognition: No signs of impairment Language: German Fund of knowledge and vocabulary: Average Focused [...] and between 8am and 3pm on weekends [phone]. Otherwise, page the vice president pharmacy general production manager. Staff name: Nathalie Connelly MD Date: 07/20/2018 * Cindy Jaramillo RN - 07/19/2018 1:18 PM CDT Associated Order(s): CONSULT NURSING PAIN MANAGEMENT Formatting of this note may be different from the original. Nursing Pain Management Initial Consult Pt. Name: Chelsea Castillo Admit Date: 07/19/2018 Room: [place] [address] Reason for Consult: "Transition PO regimen; Taper opioids; Complex pain patient ; Chronic opioid therapy" Communication: Discussed patient's plan of care with Dr. Romero. Suggestions to Consider: Hydrocodone-acetaminophen 10-300 mg tablet, 1 tab PO Q 6 hours PRN pain PO- PLANT CONTROLS SPECIALIST medication Continue carbamazepine- PLANT CONTROLS SPECIALIST medication Continue duloxetine DR- PLANT CONTROLS SPECIALIST medication Discontinue nortriptyline- Patient does not take nortriptyline at home. Continue pregabalin- PLANT CONTROLS SPECIALIST medication Change tizanidine 4 mg PO QHS PRN muscle cramps, spasms- PLANT CONTROLS SPECIALIST medications Patient will benefit from a multimodal [...] patient. Please page with questions/concerns, team pager [phone]. ASHLEY Mcleod, RN- Clinical Nurse Coordinator Pain Management [phone] Summary: Ms. Chelsea Castillo is a 58 [...] Recent Prescription History: [facility] 07/15/2018 ALPRAZOLAM 1 MG TABLET #30 [...] drinking/ Rest, pain medications Last Bowel Movement: PLANT CONTROLS SPECIALIST Opioid Calculations: Date: PLANT CONTROLS SPECIALIST Hydrocodone-acetaminophen ~ 40 mg Total oral morphine [...] and read back): Blood glucose 516 Time MD/FLOOR INSTALLATION MECHANIC Notified: 0646 MD/FLOOR INSTALLATION MECHANIC Name: Dr Maximus LIAO/FLOOR INSTALLATION MECHANIC Response/Orders Given: No new orders at this [...] - r/o gastroparesis vs eosinophilic gastritis vs [place]'s vs malignancy vs cyclic vomiting syndrome - [...] as 9% - UA+ for glucosuria >> PLANT CONTROLS SPECIALIST includes Degludec 17U with Humalog 02/20/10 >> Adjust inpt dosing accordingly Olayinka Ferrer, MS3, MLS([facility]) 07/19/2018 2:22 PM * Case Mgmt DC [...] will continue to follow Patient Address/Phone [address] [address] (home) Emergency Contact Extended Emergency Contact Information Primary Emergency Contact: Dioni Castillo [facility] Mobile Relation: Spouse Secondary Emergency Contact: Quiana Iqbal [facility] Mobile Relation: Sister Healthcare Directive Transportation [...] PCP Rubio Meza III, , ? Pharmacy [facility] [place], [place] - [address] [facility] [address] [facility] [facility] [address] ? Durable Medical Equipment Durable Medical Equipment [...] 2018 Name of rehab location/group: Facility in [facility] Would patient return for future services?: Yes OT: No EQUIPMENT MAINTENANCE TECHNICIAN: No ? Group Home Facility/Intermediate SNF: No NH: No ? Inpatient Rehab IPR: No ? Long-Term Acute Care Hospital LTACH: No ? Acute Hospital Stay Acute Hospital Stay: No Sandra Felipe RN. MSN Integrated Nurse Crepe Machine Operator Pager [phone] * ED Notes - Suleiman Adorno RN - 07/19/2018 9:24 AM CDT Pt blood sugar is 61, provided orange juice, crackers, and peanut butter. * ED Notes - Yusra Boss RN - 07/19/2018 8:57 AM CDT 0854: [id number]. Please call Judson @ [phone] for report. * ED Notes - [place] [...] on 07/19/2018 2:35 AM. Dictated by Alvarado Wilkisn M.D. on 07/19/2018 2:[address] ABD/PELV [...] in the clinic. They returned home to [place], [place] around 1999, and the pain began [...] in the results section. ANTI MANSFIELD(SM) ANTI ENTRY LEVEL SALES ASSOCIATE Routine 07/21/2018 Results for this AB 5:58 [...] 100 MG/DL MAIN LAB Performing Organization Address City/State/[facility] Phone Number [facility] [address] [place] [address] * POC GLUCOSE (07/22/2018 1:21 PM) Glucose, POC 220 (H) 70 - 100 MG/DL [facility] MAIN [facility] Performing Organization Address [facility] Phone Number [facility] [address] [place] [address] * POC GLUCOSE (07/22/2018 8:55 AM) Glucose, POC 103 (H) 70 - 100 MG/DL [facility] MAIN [facility] Performing Organization Address [facility] Phone Number [facility] [address] [place] [address] * CBC AND DIFF (07/22/2018 4:32 AM) [...] MAIN LAB Specimen Blood Performing Organization Address [facility] Phone Number [facility] [address] [place] [address] * COMPREHENSIVE METABOLIC PANEL (07/22/2018 4:32 AM) [...] for questions. Specimen Blood Performing Organization Address City/[facility]/Zipcode Phone Number MAIN LAB [address] [place] [address] * POC GLUCOSE (07/21/2018 8:20 PM) Glucose, POC 350 (H) 70 - 100 MG/DL [facility] MAIN [facility] Performing Organization Address City/[facility]/Zipcode Phone Number MAIN LAB [address] [place] [address] * POC GLUCOSE (07/21/2018 6:45 PM) Glucose, POC 129 (H) 70 - 100 MG/DL [facility] MAIN LAB Performing Organization Address City/[facility]/Zipcode Phone Number MAIN LAB [address] [place] [address] * POC GLUCOSE (07/21/2018 1:22 PM) Glucose, POC 239 (H) 70 - 100 MG/DL MAIN LAB Performing Organization Address [facility] Phone Number MAIN LAB [address] [place] [address] * ECG-SCAN (07/21/2018 1:09 PM) Narrative Performed At Ordered by an unspecified provider. * CORTISOL 60 MINUTES POST (07/21/2018 10:10 AM) Cortisol 60 Min 22.6 ug/dL MAIN LAB Specimen Blood Performing Organization Address [facility] Phone Number MAIN LAB [address] [place] [address] * POC GLUCOSE (07/21/2018 9:39 AM) Glucose, POC 165 (H) 70 - 100 MG/DL MAIN LAB Performing Organization Address [facility] Phone Number MAIN LAB [address] [place] [address] * CORTISOL 30 MINUTES POST (07/21/2018 9:30 AM) Cortisol 30 Min 19.4 ug/dL MAIN LAB Specimen Blood Performing Organization Address [facility] Phone Number MAIN LAB [address] [place] [address] * ACTH (07/21/2018 8:40 AM) Adrenocorticotropic 73 (H) REFERENCE LAB Hormone Comment: Unit: pg/mL REFERENCE VALUE - 7.2-63 (a.m. collection) [facility], [address] [facility], [place] [address] Specimen Blood Performing Organization Address [facility] Phone Number REFERENCE LAB REFERENCE LAB See results for address. * CARBAMAZEPINE LEVEL (07/21/2018 8:40 AM) Carbamazepine 3.2 (L) 6.0 - 10.0 MCG/ML MAIN LAB Specimen Blood Performing Organization Address [facility] Phone Number MAIN LAB [address] [place] [address] * CORTISOL BASELINE (07/21/2018 8:40 AM) Cortisol Baseline 13.6 ug/dL MAIN LAB Specimen Blood Performing Organization Address [facility] Phone Number MAIN LAB [address] [place] [address] * ANTI MANSFIELD(SM) ANTI ENTRY LEVEL SALES ASSOCIATE AB (07/21/2018 5:58 AM) Anti-Mansfield <0.2Comment: Interpretation: <1.0 AI MAIN LAB Negative Anti-ENTRY LEVEL SALES ASSOCIATE <0.2Comment: Interpretation: <1.0 AI MAIN LAB Negative Specimen Blood Performing Organization Address [facility] Phone Number MAIN LAB [address] [place] [address] * CENTROMERE ANTIBODIES (07/21/2018 5:58 AM) Centromere Antibody <0.2 <1.0 [facility] MAIN LAB Comment: Interpretation: Negative NOTE NEW METHODOLOGY AND REFERENCE RANGE Specimen Blood Performing Organization Address [facility] Phone Number MAIN LAB [address] [place] [address] * CCP IGG ANTIBODY (07/21/2018 5:58 AM) CCP IgG Antibody <0.5Comment: NOTE NEW <3.0 [IU]/mL MAIN LAB METHODOLOGY AND REFERENCE RANGE Specimen Blood Performing Organization Address [facility] Phone Number MAIN LAB [address] [place] [address] * SCL 70 ANTIBODIES (07/21/2018 5:58 AM) SCL70 Ab <0.2 <1.0 [facility] MAIN LAB Comment: Interpretation: Negative NOTE NEW METHODOLOGY AND REFERENCE RANGE Specimen Blood Performing Organization Address [facility] Phone Number MAIN LAB [address] [place] [address] * ANTI SSA ANTI SSB AB (07/21/2018 5:58 AM) Anti-SSA <0.2Comment: Interpretation: <1.0 [facility] MAIN LAB Negative Anti-SSB 0.2Comment: Interpretation: <1.0 AI MAIN LAB Negative Specimen Blood Performing Organization Address [facility]/Zipcode Phone Number MAIN LAB [address] [place] [address] * RHEUMATOID FACTOR (RF) (07/21/2018 5:58 AM) Rheum Factor Screen <20 <24 IU/mL MAIN LAB Specimen Blood Performing Organization Address [facility] Phone Number MAIN LAB [address] [place] [address] * ANTI-DNA DOUBLE STRAND (07/21/2018 5:58 AM) DNA Double Strand AB <10 <10 [facility] MAIN LAB Specimen Blood Performing Organization Address [facility] Phone Number MAIN LAB [address] [place] [address] * ANTI-NUCLEAR ANTIBODY(HERNAN) (07/21/2018 5:58 AM) HERNAN Screen <80 <80 [facility] MAIN LAB Specimen Blood Performing Organization Address [facility] Phone Number MAIN LAB [address] [place] [address] * PERIPHERAL SMEAR (07/21/2018 5:58 AM) Peripheral Smear Microcytic, hypochromic red [facility] cells. Consider iron deficiency anemia, anemia of chronic disease, thalassemia, and sideroblastic anemia. MILD EOSINOPHILIA. PLATELETS APPEAR NORMAL IN NUMBER AND MORPHOLOGY. Pathologist Signature INTERPRETED BY CHONG ROYAL [facility] [place] By the PATH SIGNATURE ABOVE, I attest that I have personally formulated the final interpretation expressed in this report and that the above diagnosis is based upon my examination of the slides and/or other material indicated in this report. Specimen Blood Performing Organization Address [facility] Phone Number MAIN LAB [address] [place] [address] * CBC AND DIFF (07/21/2018 5:58 AM) White Blood Cells 6.9 4.5 - 11.0 K/[facility] RBC 3.28 (L) 4.0 - 5.0 M/[facility] Hemoglobin 8.4 (L) 12.0 - 15.0 [...] Address City/State/Zipcode Phone Number [facility] MAIN [facility] [address] [place] [address] * COMPREHENSIVE METABOLIC PANEL (07/21/2018 5:58 AM) [...] for questions. Specimen Blood Performing Organization Address City/[facility]/Zipcode Phone Number [facility] MAIN [facility] [address] [place] [address] * POC GLUCOSE (07/20/2018 8:28 PM) Glucose, POC 323 (H) 70 - 100 MG/DL [facility] MAIN [facility] Performing Organization Address City/[facility]/Zipcode Phone Number [facility] MAIN [facility] [address] [place] [address] * POC GLUCOSE (07/20/2018 5:17 PM) Glucose, POC 133 (H) 70 - 100 MG/DL [facility] MAIN LAB Performing Organization Address [facility] Phone Number [facility] [address] [place] [address] * POC GLUCOSE (07/20/2018 11:59 AM) Glucose, POC 161 (H) 70 - 100 MG/DL [facility] MAIN [facility] Performing Organization Address City/[facility] Phone Number [facility] [address] [place] [address] * POC GLUCOSE (07/20/2018 8:15 AM) Glucose, POC 464 (H) 70 - 100 MG/DL [facility] MAIN [facility] Performing Organization Address [facility] Phone Number [facility] [address] [place] [address] * POC GLUCOSE (07/20/2018 6:40 AM) Glucose, POC 490 (H) 70 - 100 MG/DL [facility] MAIN [facility] Performing Organization Address City/[facility] Phone Number [facility] [address] [place] [address] * COMPREHENSIVE METABOLIC PANEL (07/20/2018 5:30 AM) [...] City/State/Zipcode Phone Number [facility]IN [facility] [address] [place] [address] * CBC (07/20/2018 5:30 AM) White Blood [...] MAIN LAB Specimen Blood Performing Organization Address City/[facility]/Zipcode Phone Number MAIN LAB [address] [place] [address] * PHOSPHORUS (07/20/2018 5:30 AM) Phosphorus 4.4 (H) 2.0 - 4.0 MG/DL MAIN LAB Specimen Blood Performing Organization Address City/[facility] Phone Number MAIN LAB [address] [place] [address] * MAGNESIUM (07/20/2018 5:30 AM) Magnesium 2.1 1.6 - 2.6 mg/dL MAIN LAB Specimen Blood Performing Organization Address City/[facility] Phone Number MAIN LAB [address] [place] [address] * POC GLUCOSE (07/19/2018 8:24 PM) Glucose, POC 372 (H) 70 - 100 MG/DL MAIN LAB Performing Organization Address [facility] Phone Number MAIN LAB [address] [place] [address] * POC GLUCOSE (07/19/2018 5:08 PM) Glucose, POC 284 (H) 70 - 100 MG/DL MAIN LAB Performing Organization Address [facility] Phone Number MAIN LAB [address] [place] [address] * IMMUNOGLOBULIN E (IGE) (07/19/2018 5:00 PM) IgE 24 <165 IU/ML MAIN LAB Specimen Blood Performing Organization Address [facility] Phone Number MAIN LAB [address] [place] [address] * FOLATE, SERUM (07/19/2018 5:00 PM) Serum Folate 15.7Comment: NOTE NEW >3.9 NG/ML MAIN LAB REFERENCE RANGES Specimen Blood Performing Organization Address City/[facility] Phone Number MAIN LAB [address] [place] [address] * VITAMIN B12 (07/19/2018 5:00 PM) Vitamin B12 751 180 - 914 PG/ML MAIN LAB Specimen Blood Performing Organization Address City/[facility]/Zipcode Phone Number [facility] MAIN LAB [address] [place] [address] * CORTISOL-AM (07/19/2018 5:00 PM) Cortisol-AM 6.3 (L) 6.7 - 22.6 MCG/DL [facility] MAIN LAB Specimen Blood Performing Organization Address [facility] Phone Number [facility] MAIN LAB [address] [place] [address] * IRON + BINDING CAPACITY + %SAT+ FERRITIN (07/19/2018 5:00 PM) Iron 24 (L) 50 - 160 MCG/DL [facility] MAIN LAB Iron Binding-TIBC 383 (H) 270 - 380 MCG/DL [facility] MAIN LAB % Saturation 6 (L) 28 - 42 % [facility] MAIN LAB Ferritin 6 (L) 10 - 200 NG/ML [facility] MAIN LAB Specimen Blood Performing Organization Address [facility] Phone Number MAIN LAB [address] [place] [address] * URINALYSIS, MICROSCOPIC (07/19/2018 12:58 PM) WBCs,UA 0-2 0 - 2 /HPF [facility] MAIN LAB RBCs,UA NONE 0 - 3 /HPF [facility] MAIN LAB Squamous Epithelial Cells 0-2 0 - 5 [facility] MAIN LAB Specimen Urine - Urine Performing Organization Address [facility] Phone Number [facility] MAIN LAB [address] [place] [address] * URINALYSIS DIPSTICK (07/19/2018 12:58 PM) Color,UA YELLOW [facility] MAIN LAB Turbidity,UA CLEAR CLEAR-CLEAR [facility] MAIN LAB Specific [place]-Urine 1.016 1.003 - 1.035 [facility] MAIN LAB [...] Specimen Urine - Urine Performing Organization Address [facility]/Zipcode Phone Number MAIN LAB [address] [place] [address] * POC GLUCOSE (07/19/2018 10:14 AM) Glucose, POC 117 (H) 70 - 100 MG/DL [facility] MAIN LAB Performing Organization Address [facility] Phone Number MAIN LAB [address] [place] [address] * POC GLUCOSE (07/19/2018 9:18 AM) Glucose, POC 61 (L) 70 - 100 MG/DL [facility] MAIN LAB Performing Organization Address City/[facility] Phone Number MAIN LAB [address] [place] [address] * C REACTIVE PROTEIN (CRP) (07/19/2018 6:20 AM) C-Reactive Protein 0.33 <1.0 MG/DL MAIN LAB Specimen Blood Performing Organization Address [facility] Phone Number MAIN LAB [address] [place] [address] * SED RATE (07/19/2018 6:20 AM) Sed Rate -ESR 5 0 - 30 MM/HR MAIN LAB Specimen Blood Performing Organization Address [facility] Phone Number MAIN LAB [address] [place] [address] * AMYLASE (07/19/2018 6:20 AM) Amylase 43 24 - 100 U/L MAIN LAB Specimen Blood Performing Organization Address [facility] Phone Number MAIN LAB [address] [place] [address] * CORTISOL,RANDOM (07/19/2018 6:20 AM) Cortisol, Random 2.8 (L) 5.0 - 20.0 MCG/DL MAIN LAB Specimen Blood Performing Organization Address [facility] Phone Number MAIN LAB [address] [place] [address] * TSH WITH FREE T4 REFLEX (07/19/2018 6:20 AM) TSH 4.350 0.35 - 5.00 MCU/ML MAIN LAB Specimen Blood Performing Organization Address [facility]/Zipcode Phone Number MAIN LAB [address] [place] [address] * HEMOGLOBIN A1C (07/19/2018 6:20 AM) Hemoglobin A1C 11.4 (H) 4.0 - 6.0 % [facility] MAIN LAB Comment: The ADA recommends that most patients with type 1 and type 2 diabetes maintain an A1c level <7%. Specimen Blood Performing Organization Address [facility] Phone Number [facility] MAIN LAB [address] [place] [address] * URINALYSIS, MICROSCOPIC (07/19/2018 4:10 AM) WBCs,UA 0-2 0 - 2 /HPF [facility] MAIN LAB RBCs,UA NONE 0 - 3 /HPF [facility] MAIN LAB MucousUA TRACE [facility] MAIN LAB Squamous Epithelial Cells 0-2 0 - 5 [facility] MAIN LAB Specimen Urine - Urine Performing Organization Address [facility] Phone Number [facility] MAIN LAB [address] [place] [address] * URINALYSIS DIPSTICK (07/19/2018 4:10 AM) Color,UA YELLOW [facility] MAIN LAB Turbidity,UA CLEAR CLEAR-CLEAR [facility] MAIN LAB Specific [place]-Urine 1.030 1.003 - 1.035 [facility] MAIN LAB [...] Specimen Urine - Urine Performing Organization Address [facility] Phone Number [facility] MAIN LAB [address] [place] [address] * CRITICAL CARE (07/19/2018 4:00 AM) Narrative [...] midlevel. * POC TROPONIN (07/19/2018 2:52 AM) Vqedwmjl-I-GWB 0.01 0.00 - 0.05 NG/ML MAIN LAB Performing Organization Address City/State/Zipcode Phone Number MAIN LAB [address] [place] [address] * CTA CHEST WO/W CONTRAST+POST IMPRESSION (07/19/2018 [...] axillary lymphadenopathy, slightly greater on the left. Domestic Helper left axillary lymph node measures 2.5 x [...] bilateral external iliac and inguinal lymph nodes. Domestic Helper right external iliac lymph node measures 2.4 [...] axillary lymphadenopathy, slightly greater on the left. Domestic Helper left axillary lymph node measures 2.5 x [...] bilateral external iliac and inguinal lymph nodes. Domestic Helper right external iliac lymph node measures 2.4 [...] axillary lymphadenopathy, slightly greater on the left. Domestic Helper left axillary lymph node measures 2.5 x [...] bilateral external iliac and inguinal lymph nodes. Domestic Helper right external iliac lymph node measures 2.4 [...] axillary lymphadenopathy, slightly greater on the left. Domestic Helper left axillary lymph node measures 2.5 x [...] bilateral external iliac and inguinal lymph nodes. Domestic Helper right external iliac lymph node measures 2.4 [...] on 07/19/2018 2:19 AM. Performing Organization Address City/[facility]/Zipcode Phone Number RAD RESULTS * POC CREATININE, RAD (07/19/2018 2:03 AM) Creatinine, POC 1.2 (H) 0.4 - 1.00 MG/DL [facility] MAIN LAB Performing Organization Address [facility] Phone Number MAIN LAB [address] [place] [address] * ECG-SCAN (07/19/2018 2:00 AM) Narrative Performed At Ordered by an unspecified provider. * POC LACTATE (07/19/2018 2:00 AM) LACTIC ACID POC 1.4 0.5 - 2.0 MMOL/L [facility] MAIN LAB Performing Organization Address [facility] Phone Number MAIN LAB [address] [place] [address] * PHOSPHORUS (07/19/2018 1:40 AM) Phosphorus 4.2 (H) 2.0 - 4.0 MG/DL [facility] MAIN LAB Specimen Blood Performing Organization Address [facility] Phone Number MAIN LAB [address] [place] [address] * MAGNESIUM (07/19/2018 1:40 AM) Magnesium 2.3 1.6 - 2.6 mg/dL [facility] MAIN LAB Specimen Blood Performing Organization Address [facility] Phone Number MAIN LAB [address] [place] [address] * LIPASE (07/19/2018 1:40 AM) Lipase 27 11 - 82 U/L [facility] MAIN LAB Specimen Blood Performing Organization Address [facility] Phone Number MAIN LAB [address] [place] [address] * COMPREHENSIVE METABOLIC PANEL (07/19/2018 1:40 AM) [...] Organization Address City/State/Zipcode Phone Number MAIN LAB [address] [place] [address] * CBC AND DIFF (07/19/2018 1:40 AM) [...] MAIN LAB Specimen Blood Performing Organization Address City/[facility] Phone Number [facility] MAIN LAB [address] [place] [address] * CULTURE-BLOOD W/SENSITIVITY (07/19/2018 1:40 AM) Battery Name BLOOD CULTURE [facility] MAIN LAB Specimen Description BLOOD [facility] MAIN LAB LEFT UA Special Requests NONE [facility] MAIN LAB Culture NO GROWTH 5 DAYS [facility] MAIN LAB Report Status FINAL [facility] MAIN LAB 07/25/2018 Specimen Blood Performing Organization Address [facility] Phone Number [facility] MAIN LAB [address] [place] [address] * CULTURE-BLOOD W/SENSITIVITY (07/19/2018 1:30 AM) Battery Name BLOOD CULTURE [facility] MAIN LAB Specimen Description BLOOD MAIN LAB LEFT PORT Special Requests NONE MAIN LAB Culture NO GROWTH 5 DAYS [facility] MAIN LAB Report Status FINAL [facility] MAIN LAB 07/25/2018 Specimen Blood Performing Organization Address [facility] Cent[facility]ode Phone Number [facility] MAIN LAB [address] [place] [address] in this encounter Visit Diagnoses Diagnosis RADHA [...]
--- OUTSIDE RECORDS SUMMARY | 2018-08-20 17:16 | XMS REPORT | Encounter Summary ---
Author Author [facility] Organization [facility] Address Unknown Phone Unavailable Care Team Providers Care Profile Mill Operator Tape Control Name Role Phone Charles Chau MD Unavailable Migue Patton MD PCP Sandra Wayne MD 3 Sandra Wayne MD PCP Sandra Wayne MD 100 Encounter Details Date Type Department Care Team Description 07/19/2018 Procedure Pass CARDIAC AND FAMILY MEDICINE PROGRESSIVE CARE [address] [place] [address] Social History Tobacco Use Types Packs/Day Years [...]
--- OUTSIDE RECORDS SUMMARY | 2018-08-20 17:16 | XMS REPORT | Encounter Summary ---
Author Author [facility] Organization [facility] Address Unknown Phone Unavailable Care Team Providers Care Heating Plant Superintendent Name Role Phone Charles Chau MD [...] Level [address] & [address] [facility] [place], [place] cyclical [phone] vomiting with Phone: Phone: nausea [phone] Gastropathy Fax: Type 1 diabetes [phone] mellitus with complication (HCC) Dysthymia Anxiety Migraine [...] Barnes MD constipation Blvd [facility] [place], [place] [address] cyclical [address] [place], [place] vomiting with Phone: [phone] nausea [phone] Phone: Gastropathy Type 1 diabetes [phone] mellitus with complication (HCC) Dysthymia Anxiety Migraine [...] [facility] on Required Other [address] Intractable [place], [place] cyclical [phone] vomiting with Phone: Phone: nausea [phone] Gastropathy Fax: Type 1 diabetes [phone] mellitus with complication (HCC) Dysthymia Anxiety Migraine with aura and with status migrainosus, not intractable Epigastric pain Abdominal pain, unspecified abdominal location Scheduling Instructions Contact Phone Numbers for each area if questions arise: General: [phone] Epilepsy: Multiple Sclerosis: Parkinson's: [facility]: Stroke & Neuromuscular: [place]: 2916 Please call pt and schedule. Thanks! * Consult, Test & Treat (Routine) Status Reason Specialty Diagnoses / Referred By Referred To Procedures Contact Contact New Request Specialty Psychiatry Diagnoses [facility] Other dysphagia LUIS [facility] Required Other [address] Intractable [place], [place], [place] cyclical [phone] vomiting with Phone: Phone: nausea [phone] Gastropathy Fax: Type 1 diabetes [phone] mellitus with complication (HCC) Dysthymia Anxiety Migraine [...] Level 2B abdominal pain [address] [place] [address] [place], [place] rocedures Phone: [phone] Consult [phone] Phone: Encounter Details Date Type Department Care Team Description 07/18/2018 Office Visit [facility] Balbina Matamoros, Abdominal pain, Physicians WOODWORKING CRAFTSMAN-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 Please call [phone] if you have any questions or concerns. General Instructions: To have a medication refilled: Please use the [employer] Refill request or contact your pharmacy directly to request medication refills. Please allow 72 hours. Medical Office Building Lab is on the 1st floor. It is open from 7 am-6pm Sunday-Sunday and 6:30am-7pm on Mondays, and 7 am - Noon on Saturdays [facility] Lab is located on the 2nd floor and is open 8 am-5 pm Sunday-Sunday [facility] lab is located next to the check out desk and is open from 8 AM to 4:45 PM Sunday through Sunday. Radiology is on the 2nd floor of the Medical Office Building and the 2nd Floor of [facility]. Radiology Scheduling can be reached at To Schedule office visits: Call [phone]. For procedure scheduling questions at the Main [facility] or [place] please call ; for a procedure at [facility] please call . To receive appointment reminders on your cell phone: Make sure we have your cell phone number, and Text [facility] to [phone]. Support for many chronic illnesses is available through [employer]: [employer] or 486-699-1488. For urgent questions on nights, weekends or holidays, call the Cleaner Greaser at [phone], and ask for the doctor visualization developer for Gastroenterology.Call 911 for any emergencies. in this encounter Progress Notes * Shiloh BalbinaALLISON-WATER SOFTENER SERVICER AND INSTALLER - 07/18/2018 3:00 PM CDT Formatting of [...] vomiting. She reports that she has between Hamilton #1 and 4 bowel movements approximately every [...] pylori and celiac. Outside records reviewed 05/06/2018 [place] [facility] progress note: recurrent upper abdominal pain associated with nausea and vomiting requiring 6 hospitalizations over the past year with CT scans of abdomen/pelvis as well as EGD/colonoscopy; all of which are unremarkable. 04/30/2018 small bowel follow-through at [place]: Delayed contrast transit to the large bowel with unremarkable small bowel; constipation was also observed. 04/24/2018 [place] [facility] progress note: Intermittent nausea, vomiting, and upper abdominal pain; she is asymptomatic between episodes. Will obtain VIP, serotonin, and gastrin levels. 04/03/2018 EGD at [facility]: Mild diffuse active gastritis with a small [...] was encouraged. 12/21/15 gastric emptying study at [facility]: This was a 2 hour exam [...] future we can obtain more of an AUTO DAMAGE INSURANCE APPRAISER history Likely above-mentioned dysmotility drugs are contributing [...] and CT abdomen and pelvis at [facility] for cyclic vomiting we will treat with the following... coenzyme Q10 100mg BID L-carnitine 2g BID One B complex vitamin Get at least 8-10 hours of sleep per night -For constipation we will treat with the following Start taking 1 capful of MiraLAX per day to achieve 1-2 Hamilton #4 bowel movements per day Start taking [...] vs benefits of medications. Additionally, I spent [phone] (20 min) and 1730 -1823 (53 min) totaling 73 minutes reviewing outside records, coordinating, and documenting care. Thank you for allowing me to participate in the care of this patient. Please call GI clinic with any questions/concerns. Balbina Matamoros, WOODWORKING CRAFTSMAN-WATER SOFTENER SERVICER AND INSTALLER Addendum 08/09/2018: Outside records reviewed 06/12/18 [facility]: Minimal constipation without obstruction, ileus, or free air. 05/17/18 [facility]: Nonspecific nonobstructive bowel gas pattern. 04/20/18 HPI at ER: Symptoms started with stomach ache and progressed into migraine, follows with neurologist at [place] for Botox injections. 09/04/2017 admitted to hospital [...] after fall on 08/18/2015 and presented to [facility] emergency room where CT of head was [...]
--- OUTSIDE RECORDS SUMMARY | 2018-08-20 17:16 | XMS REPORT | Encounter Summary ---
Author Author [facility] Organization [facility] Address Unknown Phone Unavailable Care Team Providers Care Grants Officer Name Role Phone Charles Chau MD Unavailable Migue Patton MD PCP Sandra Wayne MD 3 Sandra Wayne MD PCP Sandra Wayne MD 100 Encounter Details Date Type Department Care Team Description 07/19/2018 Procedure Pass CARDIAC AND FAMILY MEDICINE PROGRESSIVE CARE [address] [place] [address] Social History Tobacco Use Types Packs/Day Years [...]
--- OUTSIDE RECORDS SUMMARY | 2018-08-20 17:16 | XMS REPORT | Encounter Summary ---
Author Author [facility] Organization [facility] Address Unknown Phone Unavailable Care Team Providers Care Assembler Piano Name Role Phone Charles Chau MD Unavailable Migue Patton MD PCP Sandra Wayne MD 3 Sandra Wayne MD PCP Sandra Wayne MD 100 Encounter Details Date Type Department Care Team Description 07/19/2018 Procedure Pass CARDIAC AND FAMILY MEDICINE PROGRESSIVE CARE [address] [place] [address] Social History Tobacco Use Types Packs/Day Years [...]
[2018-08-20] MEDS ORDERED: NS IV 1000 ML 1,000 ML IV ONE (18:16)
[2018-08-20] MEDS ORDERED: HYDROmorphone 2 MG/ML VIAL (DILAUDID) IV STA (18:41)
[2018-08-20] MEDS ORDERED: KETOROLAC 30 MG/ML VIAL IVP STA (18:41)
[2018-08-20] MEDS ORDERED: KETAMINE HCL 100 MG/ML 5 ML VIAL IV ONE (18:45)
[2018-08-20 19:06] LABS: BILIRUBIN,URINE NEGATIVE (NEGATIVE); CLARITY,URINE SLIGHTLY CLOUDY; COLOR,URINE YELLOW; GLUCOSE, URINE (UA) 2+ (NEGATIVE); KETONES,URINE 4+ (NEGATIVE); LEUKOCYTE ESTERASE ,URINE 2+ (NEGATIVE); NITRITE,URINE NEGATIVE (NEGATIVE); PH,URINE 6 (5-9); PROTEIN,URINE 2+ (NEGATIVE); UROBILINOGEN,URINE NORMAL (NORMAL)
[2018-08-20 19:08] LABS: BASOPHILS % (AUTO) 0 % (0-10); EOSINOPHILS # (AUTO) 1.8 10^3/uL (0.0-0.3); EOSINOPHILS % (AUTO) 19 % (0-10); HEMATOCRIT 30 % (35-52); HEMOGLOBIN 10.2 G/DL (11.5-16.0); LYMPHOCYTES # (AUTO) 3.1 X 10^3 (1.0-4.0); LYMPHOCYTES % (AUTO) 33 % (12-44); MEAN CORPUSCULAR HEMOGLOBIN 29 PG (25-34); MEAN CORPUSCULAR HGB CONC 34 G/DL (32-36); MEAN CORPUSCULAR VOLUME 86 FL (80-99); MEAN PLATELET VOLUME 10.9 FL (7.4-10.4); MONOCYTES # (AUTO) 0.5 X 10^3 (0.0-1.0); MONOCYTES % (AUTO) 6 % (0-12); NEUTROPHILS # (AUTO) 3.9 X 10^3 (1.8-7.8); NEUTROPHILS % (AUTO) 42 % (42-75); PLATELET COUNT 274 10^3/uL (130-400); RED CELL DISTRIBUTION WIDTH 17.5 % (10.0-14.5); WHITE BLOOD COUNT 9.3 10^3/uL (4.3-11.0)
[2018-08-20 19:17] LABS: BACTERIA,URINE FEW /HPF
--- NOTE | 2018-08-20 19:21 | ED GI ---
General Chief Complaint: Abdominal/GI Problems Stated Complaint: STOMACH PAIN,HEAD PAIN Nursing Triage Note: TO ROOM PER W/C ACCOMPIED BY . WHO REPORTS THAT SHE WAS JUST DISCHARGED FROM ED AT 5A TODAY. CON'T TO HAVE ABD PAIN ON ADMIT WILL NOT TALK TO STAFF. CRYING AND MUMBLING . HOLDING ABD. Sepsis Screen: No Definite Risk Source of Information: Patient Exam Limitations: No Limitations History of Present Illness Date Seen by Provider: Aug 20, 2018 Time Seen by Provider: 18:30 Initial Comments Here with report of abdominal pain and nausea and vomiting again. Seen last night for the same. Discharged early this morning and she was feeling better. States that the pain is in a few areas in the abdomen. Has typical abdominal pain. Currently being weaned off of her pain medicine although not sure if the dosing currently. She apparently slept for several hours this morning then woke up and started having the symptoms again and tried to take her medicine. That did not help. Reports that she has increasing nausea and vomiting. Reports her diabetes is fairly well managed today. Timing/Duration: 2-3 Days Severity/Quality: Moderate, Aching, Cramping Location: RUQ, Epigastric Radiation: No Radiation Activities at Onset: None Associated Symptoms: No Back Pain, No Fever/Chills; Fatigue, Nausea/Vomiting; No Shortness of Air; Weakness Allergies and Home Medications Allergies Coded Allergies: Sulfa (Sulfonamide Antibiotics) (Verified Allergy, Unknown, 11/26/15) Home Medications Albuterol Sulfate 18 Gm Hfa.aer.ad, 2 PUFF IH Q6H PRN for SHORTNESS OF BREATH, ( Reported) Alprazolam 1 Mg Tablet, 1 MG PO DAILY PRN for ANXIETY, (Reported) Atorvastatin Calcium 40 Mg Tablet, 40 MG PO HS, (Reported) Carbamazepine 200 Mg Tab.er.12h, 200 MG PO BID, (Reported) Cefuroxime Axetil 250 Mg Tablet, 250 MG PO BID Prescribed by: BRENDA PARDO on 08/05/18 1536 Cetirizine HCl 10 Mg Tablet, 10 MG PO DAILY, (Reported) Cholecalciferol (Vitamin D3) 5,000 Unit Capsule, 5,000 UNIT PO DAILY, (Reported) Clobetasol Propionate 15 Gm Cream..g., TOP UD PRN for SKIN, (Reported) Dextroamphetamine/Amphetamine 20 Mg Tablet, 20 MG PO BID, (Reported) Diclofenac Sodium 100 Gm Gel..gram., TOP UD PRN for JOINT PAIN, (Reported) Duloxetine HCl 60 Mg Capsule.dr, 60 MG PO BID, (Reported) Estrogens Conjugated 30 Gm Cr, UD, (Reported) Estrogens, Conjugated 0.625 Mg Tablet, 0.625 MG PO DAILY, (Reported) Fesoterodine Fumarate 4 Mg Tab.sr.24h, 4 MG PO DAILY, (Reported) Fludrocortisone Acetate 0.1 Mg Tab, 0.1 MG PO BID, (Reported) Fluticasone Propionate 16 Gm [place].susp, 1 SPRAY NS BID PRN for ALLERGIES, ( Reported) Glucagon,Human Recombinant 1 Mg/Kit Soln, UD PRN for BLOOD SUGAR, (Reported) Hydrocodone/Acetaminophen 1 Each Tablet, 1 TAB PO QID PRN for PAIN-MODERATE, ( Reported) Hydroxychloroquine Sulfate 200 Mg Tablet, 200 MG PO DAILY, (Reported) Insulin Degludec 100 Unit/1 Ml Insuln.pen, 17 UNITS SQ HS, (Reported) Insulin Lispro 100 Unit/1 Ml Insuln.pen, 4 UNITS SQ 0800,1200, (Reported) Insulin Lispro 100 Unit/1 Ml Insuln.pen, 10 UNIT SQ 1800, (Reported) Levothyroxine Sodium 175 Mcg Tablet, 175 MCG PO DAILY, (Reported) Lidocaine/Prilocaine 30 Gm Cream..g., TOP UD PRN for SKIN, (Reported) Lorazepam 1 Mg Tablet, 1 MG PO BID, (Reported) Montelukast Sodium 10 Mg Tablet, 10 MG PO DAILY, (Reported) Multivitamin with Minerals 1 Each Tablet, 1 TAB PO DAILY, (Reported) Nitrofurantoin Monohyd/M-Cryst 100 Mg Capsule, 1 TAB PO BID Prescribed by: CARA LEWIS on 05/17/182108 Nortriptyline HCl 25 Mg Capsule, 25 MG PO HS, (Reported) Nystatin 60 Gm Powder, TOP UD PRN for RASH, (Reported) Ondansetron 4 Mg Tab.rapdis, 8 MG PO Q6H PRN for NAUSEA/VOMITING Prescribed by: CARA LEWIS on 05/17/182108 Ondansetron 4 Mg Tab.rapdis, 4 MG PO Q6H PRN for NAUSEA/VOMITING Prescribed by: THOMAS HERNANDEZ on 08/20/18 0412 Pantoprazole Sodium 40 Mg Tablet.dr, 40 MG PO DAILY, (Reported) Pentosan Polysulfate Sodium 100 Mg Capsule, 100 MG PO TID, (Reported) UNKNOWN LAST FILL DATE Potassium Chloride 10 Meq Capsule.er, 10 MEQ PO DAILY, (Reported) Pregabalin 150 Mg Capsule, 150 MG PO BID, (Reported) Rizatriptan Benzoate 10 Mg Tablet, 10 MG PO UD PRN for MIGRAINE, (Reported) Sucralfate 1 Gm/10 Ml Oral.susp, 1 GM PO AC, (Reported) Tizanidine HCl 4 Mg Tablet, 4 MG PO TID PRN for MUSCLE SPASMS, (Reported) Zolpidem Tartrate 10 Mg Tablet, 10 MG PO HS, (Reported) [Biotex] , 200 UNITS PO UD PRN for MIGRAINE, (Reported) Patient Home Medication List Home Medication List Reviewed: Yes Review of Systems Review of Systems Constitutional: see HPI; No chills, No fever EENTM: No Symptoms Reported Respiratory: No Symptoms Reported; Denies Cough, Denies Shortness of Air Cardiovascular: Denies Chest Pain, Denies Edema Gastrointestinal: Abdominal Pain, Nausea, Vomiting Genitourinary: No Symptoms Reported Musculoskeletal: no symptoms reported Psychiatric/Neurological: See HPI, Anxiety, Emotional Problems Endocrine: No Symptoms Reported All Other Systems Reviewed Negative Unless Noted: Yes Past Aajzgov-Sidbwy-Shopyo Hx Past Med/Social Hx: Reviewed Nursing Past Med/Soc Hx Patient Social History Alcohol Use: Occasionally Uses Recreational Drug Use: No Smoking Status: Never a Smoker 2nd Hand Smoke Exposure: No Recent Foreign Travel: No Contact w/Someone Who Travel: No Recent Infectious Disease Expo: No Recent Hopitalizations: No Immunizations Up To Date Tetanus Booster (TDap): More than 5yrs Date of Pneumonia Vaccine: Aug 19, 2014 Date of Influenza Vaccine: Aug 22, 2017 Seasonal Allergies Seasonal Allergies: No Past Medical History Surgeries: Yes (PORT,CARPAL TUNNEL, R.HIP, BILAT SHOULDER SURGERY, port placement) Eye Surgery, Gallbladder, Hysterectomy, Orthopedic, Vascular Surgery Respiratory: Yes Asthma Currently Using CPAP: No Currently Using BIPAP: No Cardiac: Yes High Cholesterol, Hypertension Neurological: Yes Concussion, Headaches /Migraines, Neuropathy, Seizure Disorder, Traumatic Brain Injury Reproductive Disorders: No Female Reproductive Disorders: Denies 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 CHRONIC ABDOMINAL PAIN. ) Ulcer Musculoskeletal: Yes Arthritis Endocrine: Yes (ADRENAL DISEASE) Diabetes, Insulin dep, Hypothyroidsim HEENT: Yes Chronic Ear Infection Loss of Vision: Denies Hearing Impairment: Denies Cancer: No Psychosocial: Yes Anxiety, Depression Integumentary: No Blood Disorders: No Adverse Reaction/Blood Tranf: No Family Medical History Reviewed Nursing Family Hx Alcoholism 09 BROTHER Cancer 03 MOTHER (PANCREATIC CA) Myocardial infarction 03 MOTHER Cancer Physical Exam Vital Signs Vital Signs - First Documented 08/20/18 18:13 Temp 96.6 Pulse 92 Resp 18 B/P (MAP) 169/88 (115) Pulse Ox 98 O2 Delivery Room Air Capillary Refill : Less Than 3 Seconds Height/Weight/BMI Height: 5'5.00" Weight: 140lbs. 3.2oz. [id number]; 24.2 BMI Method:Stated General Appearance: WD/WN, no apparent distress HEENT: PERRL/EOMI, pharynx normal Neck: full range of motion, supple Respiratory: lungs clear, normal breath sounds Cardiovascular: regular rate, rhythm, no murmur Peripheral Pulses: 2+ Dorsalis Pedis (R), 2+ Left Dors-Pedis (L), 2+ Radial Pulses (R), 2+ Radial Pulses (L) Gastrointestinal: soft; No guarding, No rebound; tenderness (epigastric) Extremities: non-tender, normal inspection Back: normal inspection, no CVA tenderness, no vertebral tenderness Neurologic/Psychiatric: alert, oriented x 3 Skin: normal color, warm/dry Progress/Results/Core Measures Results/Orders Lab Results Laboratory Tests Test 08/20/18 18:48 08/20/18 18:52 Range/Units White Blood Count 9.3 4.3-11.0 10^3/uL Red Blood Count 3.50 L 4.35-5.85 10^6/uL Hemoglobin 10.2 L 11.5-16.0 G/DL Hematocrit 30 L 35-52 % Mean Corpuscular Volume 86 80-99 FL Mean Corpuscular Hemoglobin 29 25-34 PG Mean Corpuscular Hemoglobin Concent 34 32-36 G/DL Red Cell Distribution Width 17.5 H 10.0-14.5 % Platelet Count 274 130-400 10^3/uL Mean Platelet Volume 10.9 H 7.4-10.4 FL Neutrophils (%) (Auto) 42 42-75 % Lymphocytes (%) (Auto) 33 12-44 % Monocytes (%) (Auto) 6 0-12 % Eosinophils (%) (Auto) 19 H 0-10 % Basophils (%) (Auto) 0 0-10 % Neutrophils # (Auto) 3.9 1.8-7.8 X 10^3 Lymphocytes # (Auto) 3.1 1.0-4.0 X 10^3 Monocytes # (Auto) 0.5 0.0-1.0 X 10^3 Eosinophils # (Auto) 1.8 H 0.0-0.3 10^3/uL Basophils # (Auto) 0.0 0.0-0.1 10^3/uL Neutrophils % (Manual) 46 % Lymphocytes % (Manual) 32 % Monocytes % (Manual) 1 % Eosinophils % (Manual) 19 % Basophils % (Manual) 2 % Band Neutrophils 0 % Hypochromasia MODERATE Spherocytes SLIGHT Sodium Level 142 135-145 MMOL/L Potassium Level 3.5 L 3.6-5.0 MMOL/L Chloride Level 106 98-107 MMOL/L Carbon Dioxide Level 24 21-32 MMOL/L Anion Gap 12 5-14 MMOL/L Blood Urea Nitrogen 8 7-18 MG/DL Creatinine 0.75 0.60-1.30 MG/DL Estimat Glomerular Filtration Rate > 60 BUN/Creatinine Ratio 11 Glucose Level 142 H 70-105 MG/DL Calcium Level 8.2 L 8.5-10.1 MG/DL Corrected Calcium 8.8 8.5-10.1 MG/DL Phosphorus Level 3.6 2.3-4.7 MG/DL Magnesium Level 1.8 1.8-2.4 MG/DL Total Bilirubin 0.3 0.1-1.0 MG/DL Aspartate Amino Transf (AST/SGOT) 20 5-34 U/L Alanine Aminotransferase (ALT/SGPT) 15 0-55 U/L Alkaline Phosphatase 76 40-136 U/L C-Reactive Protein High Sensitivity 0.40 0.00-0.50 MG/DL Total Protein 5.5 L 6.4-8.2 GM/DL Albumin 3.2 3.2-4.5 GM/DL Lipase 9 8-78 U/L Urine Color YELLOW Urine Clarity SLIGHTLY CLOUDY Urine pH 6 5-9 Urine Specific [place] 1.020 1.016-1.022 Urine Protein 2+ H NEGATIVE Urine Glucose (UA) 2+ H NEGATIVE Urine Ketones 4+ H NEGATIVE Urine Nitrite NEGATIVE NEGATIVE Urine Bilirubin NEGATIVE NEGATIVE Urine Urobilinogen NORMAL NORMAL MG/DL Urine Leukocyte Esterase 2+ H NEGATIVE Urine RBC (Auto) NEGATIVE NEGATIVE Urine RBC NONE /HPF Urine WBC 2-5 /HPF Urine Squamous Epithelial Cells 10-25 H /HPF Urine Crystals NONE /LPF Urine Bacteria FEW H /HPF Urine Casts NONE /LPF Urine Mucus NEGATIVE /LPF Urine Culture Indicated NO My Orders Orders - THOMAS HERNANDEZ MD Cbc With Automated Diff (08/20/18 18:16) Comprehensive Metabolic Panel (08/20/18 18:16) Hs C Reactive Protein (08/20/18 18:16) Lipase (08/20/18 18:16) Magnesium (08/20/18 18:16) Ua Culture If Indicated (08/20/18 18:16) Phosphorus (08/20/18 18:16) Saline Lock/Iv-Start (08/20/18 18:16) Ns Iv 1000 Ml (Sodium Chloride 0.9%) (08/20/18 18:16) Ketamine Injection (Ketalar Injection) (08/20/18 18:45) Ketorolac Injection (Toradol Injection) (08/20/18 18:41) Hydromorphone Injection (Dilaudid Inject (08/20/18 18:41) Manual Differential (08/20/18 18:48) Clear Liquid (08/20/18 Dinner) Ondansetron Injection (Zofran Injectio (08/20/18 21:30) Medications Given in ED Current Medications Medications Dose Ordered Sig/Reva Route Start Time Stop Time Status Last Admin Dose Admin Ketamine HCl 10 mg ONCE ONCE IV 08/20/18 18:45 08/20/18 18:46 DC 08/20/18 19:10 10 MG Ondansetron HCl 4 mg ONCE ONCE IVP 08/20/18 21:30 08/20/18 21:31 DC 08/20/18 21:34 4 MG Sodium Chloride 1,000 ml @ 0 mls/hr Q0M ONCE IV 08/20/18 18:16 08/20/18 18:22 DC 08/20/18 18:51 1,000 MLS/HR Vital Signs/I&O 08/20/18 18:13 Temp 96.6 Pulse 92 Resp 18 B/P (MAP) 169/88 (115) Pulse Ox 98 O2 Delivery Room Air Blood Pressure Mean: 115 Progress Progress Note : Progress Note Seen and evaluated. IV, labs, UA, normal saline 1 L bolus. For the pain we will try Toradol 30 mg IV and Dilaudid 0.5 mg IV. Given her long-term narcotic use, we will try ketamine 10 mg IV and see if this helps. Labs to be reviewed and compared to recent. Consider CT if indicated. Monitor patient. 2134: Overall doing much better. Did receive Zofran 4 mg IV. Did tolerate Jell-O and Sprite. Overall, states that she could tolerate this at home. Patient does have ketones in her urine but I think this is more from starvation and not ketoacidosis as she doesn't have decreased CO2 level and her blood sugars are in normal range. Does have appointment with Dr. Patton tomorrow. We discussed admission and further evaluation versus outpatient follow-up and they are okay with outpatient follow-up. I did talk further with the patient and family and she apparently had a CT scan of the abdomen and pelvis within the last month for similar presentation at a hospital in [place] with negative findings. She does have a GI specialty in [place]. Patient may be suffering from polypharmacy and this was discussed with them and they will talk with her primary doctor about that tomorrow at that appointment. I will send a copy of the chart Dr. Patton. Discharged home with return precautions. Patient and family verbalize understanding instructions and agreement with plan. Departure Impression Primary Impression: Epigastric abdominal pain Additional Impression: Moderate nausea and vomiting Disposition: HOME, SELF-CARE Condition: Stable Departure-Patient Inst. Decision time for Depature: 21:42 Referrals: RUBIO PATTON DO (PCP/Family) Primary Care Physician Patient Instructions: Acute Abdomen (Belly Pain), Adult (DC), Nausea and Vomiting, Adult (DC) Add. Discharge Instructions: All discharge instructions reviewed with patient and/or family. Voiced understanding. Continue home medicines as previously prescribed. Drink plenty of fluids. Carefully monitor your sugars. It is very important that you keep your appointment with Dr. Patton tomorrow. Return for worse pain, fever, vomiting , weakness, breathing problems or other concerns as needed. Copy Copies To 1: RUBIO PATTON TIMOTHY D MD Aug 20, 2018 19:21
[2018-08-20 19:26] LABS: ALANINE AMINOTRANSFERASE 15 U/L (0-55); ALBUMIN 3.2 GM/DL (3.2-4.5); ALKALINE PHOSPHATASE 76 U/L (40-136); BILIRUBIN,TOTAL 0.3 MG/DL (0.1-1.0); BUN/CREATININE RATIO 11; CALCIUM 8.2 MG/DL (8.5-10.1); CARBON DIOXIDE 24 MMOL/L (21-32); CHLORIDE 106 MMOL/L (98-107); CREATININE SERUM 0.75 MG/DL (0.60-1.30); GFR ESTIMATED > 60; GLUCOSE 142 MG/DL (70-105); LIPASE 9 U/L (8-78); MAGNESIUM 1.8 MG/DL (1.8-2.4); PHOSPHORUS 3.6 MG/DL (2.3-4.7); POTASSIUM 3.5 MMOL/L (3.6-5.0); SODIUM 142 MMOL/L (135-145); TOTAL PROTEIN 5.5 GM/DL (6.4-8.2)
[2018-08-20 19:32] LABS: BAND NEUTROPHILS 0 %; BASOPHILS % (MANUAL) 2 %; EOSINOPHILS % (MANUAL) 19 %; LYMPHOCYTES % (MANUAL) 32 %; MONOCYTES % (MANUAL) 1 %; NEUTROPHILS % (MANUAL) 46 %
[2018-08-20 19:33] LABS: HYPOCHROMASIA MODERATE; SPHEROCYTES SLIGHT
[2018-08-20] MEDS ORDERED: ONDANSETRON 4 MG/2 ML (SDV) Z0FRAN IVP ONE (21:30)
[2018-08-20 21:57] VITALS: BP 146/77
== END 2018-08-20 21:57 | disposition home or self-care (01) ==
LOC: EDUNIT# 16:54 → ER 16:55
DX: R10.13 Epigastric pain (principal); R11.2 Nausea with vomiting, unspecified; E11.9 Type 2 diabetes mellitus without complications; J45.909 Unspecified asthma, uncomplicated; E78.00 Pure hypercholesterolemia, unspecified; I10 Essential (primary) hypertension; G40.909 Epilepsy, unspecified, not intractable, without status epilepticus; G43.909 Migraine, unspecified, not intractable, without status migrainosus; E03.9 Hypothyroidism, unspecified; F41.9 Anxiety disorder, unspecified; F32.9 Major depressive disorder, single episode, unspecified; Z80.0 Family history of malignant neoplasm of digestive organs; Z82.49 Family history of ischemic heart disease and other diseases of the circulatory system; Z88.2 Allergy status to sulfonamides; Z87.820 Personal history of traumatic brain injury; Z79.51 Long term (current) use of inhaled steroids; Z87.440 Personal history of urinary (tract) infections; Z87.19 Personal history of other diseases of the digestive system; Z79.4 Long term (current) use of insulin; Z79.52 Long term (current) use of systemic steroids; Z90.710 Acquired absence of both cervix and uterus
CPT/HCPCS: 36415; 80053; 81000; 83690; 83735; 84100; 85007; 85027; 86141

== ENCOUNTER 2018-09-17 02:22 | Emergency (ER) | payer MEDICARE, MEDICAID ==
[~2018-09-17] VITALS: Ht 165.1 cm; Wt 62.6 kg
--- OUTSIDE RECORDS SUMMARY | 2018-09-17 02:29 | XMS REPORT | Clinical Summary ---
Author Author [facility] Organization [facility] Address Unknown Phone Unavailable Care Team Providers Care Clinical Neuropsychologist Name Role Phone Charles Chau MD Unavailable Sandra Wayne MD 3 Sandra Wayne MD PCP Sandra Wayne MD 100 Source Comments Some departments are not documenting in the electronic medical record. If you do not see the information that you expected, contact Release of Information in the Health Information Management department at [phone] for further assistance in locating additional records.[facility] Allergies Active Allergy Reactions Severity Noted [...] times daily as needed. 18 COCKTAIL) 1:1:3 electrolyte GUT PEG Mix as directed on 4000 mL 0 09/13/20 Active (NULYTELY, COLYTE, package. Drink 240ml 18 GAVILYTE-N) 420 gram oral (8oz) every 10 minutes solution until gone. Refrigerate once mixed. Active Problems Problem Noted Date Healthcare maintenance [...] exam: counseled on regular eye exams. Follows [facility], saw them last in 2016 [...] this medication from her PCP -follows with [facility] -obtain outside records -high-dose flu vaccine [...] anxiety, and pain -managed by PCP in [place], [place] -discussed with patient that she would need to establish with psychiatry (referral pending, was ordered in the hospital) due to need for multiple medications with uncontrolled symptoms -obtain outside records Migraine with aura and with status migrainosus, not intractable 07/18/2018 Epigastric pain 07/18/2018 Encounters Date Type Specialty Care Team Description 09/16/2018 Emergency Emergency Medicine Maritza Corea MD 09/16/2018 Telephone Gastroenterology Gunnar Kirk MD Other 09/16/2018 Procedure Pass Emergency Medicine 09/13/2018 Office Visit Gastroenterology Gunnar Kirk MD Nausea and vomiting, intractability of vomiting not specified, unspecified vomiting type (Primary Dx); H/O diabetes mellitus; Abnormal CT scan 09/13/2018 Prep for Case Gastroenterology Gunnar Kirk MD Nausea and vomiting, intractability of vomiting not specified, unspecified vomiting type (Primary Dx); Encounter for screening colonoscopy 08/19/2018 Office Visit General Internal Medicine Sandra Wayne MD Type 1 diabetes mellitus with complication (HCC) (Primary Dx); Healthcare maintenance; Orthostatic hypotension; Immunosuppression due to drug therapy; Influenza vaccine needed; Anxiety; Chronic abdominal pain; Acquired hypothyroidism; LAD (lymphadenopathy), axillary 08/04/2018 Emergency Emergency Medicine Hoa Sarkar MD 07/29/2018 Telephone Gastroenterology Balbina Matamoros, Appointment ELECT[employer]IC [employer]ER[employer]WR[employer] INSPECTOR 07/24/2018 Emergency Emergency Medicine 07/23/2018 Telephone Gastroenterology Balbina Matamoros, Prior Authorization 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 ) 07/19/2018 [facility] Hoa Sarkar MD Chronic abdominal pain - Encounter Jimbo Gordon DO 07/22/2018 Sandra Ho MD 07/19/2018 Procedure Pass 07/19/2018 Procedure Pass 07/19/2018 Procedure Pass 07/18/2018 Office Visit Gastroenterology Balbina Matamoros, Abdominal pain, ELECTRIC CELL TENDER-[employer]WRITER [employer]S INSPECTOR unspecified abdominal location (Primary Dx); Other dysphagia; [...] Vital Sign Reading Time Taken Blood Pressure 151/66 09/16/2018 7:00 AM CDT Pulse 88 09/16/2018 7:00 AM CDT Temperature 37.2 C (98.9 F) 09/16/2018 1:59 AM CDT Respiratory Rate 16 09/13/2018 8:07 AM CDT Oxygen Saturation 97% 09/16/2018 7:00 AM CDT Inhaled Oxygen - - Concentration Weight 62.1 kg (137 lb) 09/16/2018 1:59 AM CDT Height 165.1 cm (5' 5") 09/13/2018 8:07 AM CDT Body Mass Index 22.8 09/16/2018 1:59 AM CDT Plan of Treatment Health Maintenance [...] Procedure Name Priority Date/Time Associated Diagnosis Comments POC BLOOD GAS ARTERIAL 09/16/2018 Results for this 5:33 AM CDT procedure are in the results section. URINALYSIS, MICROSCOPIC STAT 09/16/2018 Results for this 4:35 AM CDT procedure are in the results section. URINALYSIS DIPSTICK STAT 09/16/2018 Results for this 4:35 AM CDT procedure are in the results section. CT ABD/PELV W CONTRAST STAT 09/16/2018 Results for this 4:22 AM CDT procedure are in the results section. POC LACTATE 09/16/2018 Results for this 2:47 AM CDT procedure are in the results section. BETA HYDROXYBUTYRATE Add on 09/16/2018 Results for this (KETONES) 2:46 AM CDT procedure are in the results section. LIPASE STAT 09/16/2018 Results for this 2:46 AM CDT procedure are in the results section. COMPREHENSIVE METABOLIC STAT 09/16/2018 Results for this PANEL 2:46 AM CDT procedure are in the results section. CBC AND DIFF STAT 09/16/2018 Results for this 2:46 AM CDT procedure are in the results section. ECG-SCAN 08/06/2018 Results for this 12:45 PM [...] in the results section. ANTI MANSFIELD(SM) ANTI WATER ATTENDANT Routine 07/21/2018 Results for this AB 5:58 [...] section. from Last 3 Months Results * POC BLOOD GAS ARTERIAL (09/16/2018 5:33 AM) PH-ART-POC 7.40 7.35 - 7.45 [facility] TIX5-FBR-TTJ 49 (H) 35 - 45 MMHG [facility] PO2-ART-POC 43 (LL) 80 - 100 MMHG [facility] Base Ex-ART-POC 5.0 MMOL/L [facility] O2 Sat-ART-POC 77.0 (L) 95 - 99 % [facility] Gwpzybsekld-QLL-LGS 30.1 (H) 21 - 28 MMOL/L [facility] Performing Organization Address [facility] Phone Number MAIN LAB [address] [place] [address] * URINALYSIS, MICROSCOPIC (09/16/2018 4:35 AM) Only the most recent of 5 results within the time period is included. WBCs,UA 0-2 0 - 2 /HPF [facility] RBCs,UA 0-2 0 - 3 /HPF [facility] MucousUA TRACE [facility] Squamous Epithelial Cells 0-2 0 - 5 [facility] Specimen Urine - Urine Performing Organization Address [facility] Phone Number MAIN LAB [address] [place] [address] * URINALYSIS DIPSTICK (09/16/2018 4:35 AM) Only the most recent of 5 results within the time period is included. Color,UA YELLOW [facility] Turbidity,UA CLEAR CLEAR-CLEAR [facility] Specific [place]-Urine 1.035 1.003 - 1.035 [facility] pH,UA 7.0 5.0 - 8.0 [facility] Protein,UA 1+ (A) NEG-NEG [facility] Glucose,UA 3+ (A) NEG-NEG [facility] Ketones,UA 2+ [...] City/State/Zipcode Phone Number [facility] [address] [place] [address] * CT ABD/PELV W CONTRAST (09/16/2018 4:22 AM) Only the most recent of 2 results within the time period is included. Impressions Performed At 1.Mild bilateral external iliac lymphadenopathy. There are also mildly [facility] RES[facility] prominent inguinal lymph nodes bilaterally. These are nonspecific and may be reactive in nature. 2.No bowel obstruction, inflammatory mass, or abdominopelvic ascites. Mild distal colonic diverticulosis without evidence of diverticulitis. 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 By my electronic signature, I attest that I have personally reviewed the images for this examination and formulated the interpretations and opinions expressed in this report Finalized by Kyle Martinez M.D. on 09/16/2018 5:07 AM. Dictated by Rory Mansfield D.O. on 09/16/2018 4:36 AM. Narrative Performed At CT ABDOMEN AND PELVIS [facility] RES[facility] Clinical Indication: Female, 58 years. Abd pain. Technique:Multiple contiguous axial images were obtained through the abdomen and pelvis following the administration of IV contrast material. Portal venous phase of postcontrast imaging was obtained. Post processing coronal and sagittal reconstruction images were made from the axial images. IV contrast: Isovue-370 Bowel contrast:None Comparison: CT 07/19/2018 FINDINGS: Lower Thorax: The heart is normal in size without pericardial effusion. The lung bases are clear. Liver and Biliary system: Liver is normal in size without focal lesion. Prior cholecystectomy. Stable mild central intrahepatic and mild extrahepatic biliary ductal dilation most compatible with choledocho ectasia. Redemonstration of metallic clip along the posterior aspect of the right lobe of the liver. Spleen: Unremarkable. Adrenal Glands and Kidneys: The adrenal glands are unremarkable. Contrast material is demonstrated in the upper collecting systems bilaterally. No hydronephrosis. Pancreas and Retroperitoneum: The pancreas is mildly atrophic. No retroperitoneal lymphadenopathy. Aorta and Major Vessels: Normal caliber abdominal aorta. Minimal scattered calcified atherosclerotic plaque. Bowel, Mesentery and Peritoneal space: Small and large bowel loops are normal in caliber. Mild distal colonic diverticulosis. No inflammatory mass, mesenteric adenopathy, or abdominopelvic ascites. Pelvis: Mild external iliac lymphadenopathy bilaterally. Director Of Events left external iliac lymph node measures 1.6 cm short axis (image 2/76). The mildly distended urinary bladder is unremarkable. Prior hysterectomy. Vaginal cuff is unremarkable. Mildly prominent inguinal lymph nodes bilaterally, which are reactive in appearance. Abdominal wall and Osseous Structures: No aggressive appearing osseous lesion. Procedure Note Interface, Radiant Results - 09/16/2018 5:[address] ABDOMEN AND PELVIS Clinical Indication: Female, 58 years. Abd pain. Technique: Multiple contiguous axial images were obtained through the abdomen and pelvis following the administration of IV contrast material. Portal venous phase of postcontrast imaging was obtained. Post processing coronal and sagittal reconstruction images were made from the axial images. IV contrast: Isovue-370 Bowel contrast: None Comparison: CT 07/19/2018 FINDINGS: Lower Thorax: The heart is normal in size without pericardial effusion. The lung bases are clear. Liver and Biliary system: Liver is normal in size without focal lesion. Prior cholecystectomy. Stable mild central intrahepatic and mild extrahepatic biliary ductal dilation most compatible with choledocho ectasia. Redemonstration of metallic clip along the posterior aspect of the right lobe of the liver. Spleen: Unremarkable. Adrenal Glands and Kidneys: The adrenal glands are unremarkable. Contrast material is demonstrated in the upper collecting systems bilaterally. No hydronephrosis. Pancreas and Retroperitoneum: The pancreas is mildly atrophic. No retroperitoneal lymphadenopathy. Aorta and Major Vessels: Normal caliber abdominal aorta. Minimal scattered calcified atherosclerotic plaque. Bowel, Mesentery and Peritoneal space: Small and large bowel loops are normal in caliber. Mild distal colonic diverticulosis. No inflammatory mass, mesenteric adenopathy, or abdominopelvic ascites. Pelvis: Mild external iliac lymphadenopathy bilaterally. Director Of Events left external iliac lymph node measures 1.6 cm short axis (image 2/76). The mildly distended urinary bladder is unremarkable. Prior hysterectomy. Vaginal cuff is unremarkable. Mildly prominent inguinal lymph nodes bilaterally, which are reactive in appearance. Abdominal wall and Osseous Structures: No aggressive appearing osseous lesion. IMPRESSION 1. Mild bilateral external iliac lymphadenopathy. There are also mildly prominent inguinal lymph nodes bilaterally. These are nonspecific and may be reactive in nature. 2. No bowel obstruction, inflammatory mass, or abdominopelvic ascites. Mild distal colonic diverticulosis without evidence of diverticulitis. 3. 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 By my electronic signature, I attest that I have personally reviewed the images for this examination and formulated the interpretations and opinions expressed in this report Finalized by Kyle Martinez M.D. on 09/16/2018 5:07 AM. Dictated by Rory Mansfield D.O. on 09/16/2018 4:36 AM. Performing Organization Address [facility] Phone Number RAD RESULTS * POC LACTATE (09/16/2018 2:47 AM) Only the most recent of 2 results within the time period is included. LACTIC ACID POC 1.6 0.5 - 2.0 MMOL/L [facility] Performing Organization Address [facility] Phone Number [facility] MAIN LAB [address] [place] [address] * BETA HYDROXYBUTYRATE (KETONES) (09/16/2018 2:46 AM) Beta Hydroxybutyrate 1.4 (H) <0.3 MMOL/L [facility] Comment: Beta hydroxybutyrate (BOHB) is the most abundant ketone (78%), followed by acetoacetate (20%) and acetone (2%).Measurement BOHB is recommended to assess ketones in DKA. Expected BOHB Results for DKA: Initial presentation high/increasing During treatment decreasing Resolved decreasing/normal Performing Organization Address [facility] Phone Number MAIN LAB [address] [place] [address] * CBC AND DIFF (09/16/2018 2:46 AM) Only the most recent of 6 results within the time period is included. White Blood Cells 11.3 (H) 4.5 - 11.0 K/UL [facility] RBC 5.00 4.0 - 5.0 M/UL [facility] Hemoglobin 14.2 12.0 - 15.0 GM/DL [facility] Hematocrit 43.2 36 - 45 % [facility] MCV 86.3 80 - 100 FL [facility] MCH 28.4 26 - 34 PG [facility] MCHC 32.9 32.0 - 36.0 G/DL [facility] RDW 18.3 (H) 11 - 15 % [facility] Platelet Count 245 150 - 400 K/UL [facility] MPV 8.3 7 - 11 FL [facility] Neutrophils 57 41 - 77 % [facility] Lymphocytes 23 (L) 24 - 44 % [facility] Monocytes 5 4 - 12 % [facility] Eosinophils 14 (H) 0 - 5 % [facility] Basophils 1 0 - 2 % [facility] Absolute Neutrophil Count 6.40 1.8 - 7.0 K/UL [facility] Absolute Lymph Count 2.60 1.0 - 4.8 K/UL [facility] Absolute Monocyte Count 0.60 0 - 0.80 K/UL [facility] Absolute Eosinophil Count 1.60 (H) 0 - 0.45 K/UL [facility] Absolute Basophil Count 0.10 0 - 0.20 K/UL [facility] Specimen Blood Performing Organization Address City/[facility] Phone Number [facility] [address] [place] [address] * LIPASE (09/16/2018 2:46 AM) Only the most recent of 3 results within the time period is included. Lipase 6 (L) 11 - 82 U/L [facility] Specimen Blood Performing Organization Address [facility] Phone Number [facility] [address] [place] [address] * COMPREHENSIVE METABOLIC PANEL (09/16/2018 2:46 AM) Only the most recent of 7 results within the time period is included. Sodium 138 137 - 147 MMOL/L [facility] Potassium 3.5 3.5 - 5.1 MMOL/L [facility] Chloride 98 98 - 110 MMOL/L [facility] Glucose 366 (H) 70 - 100 MG/DL [facility] Blood Urea Nitrogen 11 7 - 25 MG/DL [facility] Creatinine 0.82 0.4 - 1.00 MG/DL [facility] Calcium 9.0 8.5 - 10.6 MG/DL [facility] Total Protein 6.5 6.0 - 8.0 G/DL [facility] Total Bilirubin 0.5 0.3 - 1.2 MG/DL [facility] Albumin 3.9 3.5 - 5.0 G/DL [facility] Alk Phosphatase 71 25 - 110 U/L [facility] AST (SGOT) 21 7 - 40 U/L [facility] CO2 27 21 - 30 MMOL/L [facility] ALT (SGPT) 8 7 - 56 U/L [facility] Anion Gap 13 (H) 3 - 12 [facility] eGFR [...] City/State/Zipcode Phone Number [facility] [address] [place] [address] * ECG-SCAN (08/06/2018 12:45 PM) Narrative Performed At Ordered by an unspecified provider. * CHEST SINGLE VIEW (08/04/2018 5:10 PM) [...] on 08/05/2018 7:27 AM. Performing Organization Address [facility] Phone Number RAD RESULTS * FREE T4-FREE THYROXINE (08/04/2018 4:46 PM) T4-Free 1.1 0.6 - 1.6 NG/DL MAIN LAB Performing Organization [facility] Phone Number MAIN LAB [address] [place] [address] * TSH WITH FREE T4 REFLEX (08/04/2018 4:46 PM) Only the most recent of 2 results within the time period is included. TSH 0.330 (L) 0.35 - 5.00 MCU/ML [facility] Specimen Blood Performing Organization [facility] Phone Number MAIN LAB [address] [place] [address] * POC TROPONIN (08/04/2018 4:46 PM) Only the most recent of 2 results within the time period is included. Tswmmiaf-G-OKD 0.02 0.00 - 0.05 NG/ML [facility]IN LAB Performing Organization Address [facility] Phone Number MAIN LAB [address] [place] [address] * POC GLUCOSE (08/04/2018 4:46 PM) Only the most recent of 17 results within the time period is included. Glucose, POC 212 (H) 70 - 100 MG/DL MAIN LAB Performing Organization [facility] Phone Number [facility] [address] [place] [address] * TELEMETRY STRIPS-SCAN (07/25/2018 10:18 AM) Narrative Performed At Ordered by an unspecified provider. * ECG-SCAN (07/21/2018 1:09 PM) Narrative Performed At Ordered by an unspecified provider. * CORTISOL 60 MINUTES POST (07/21/2018 10:10 AM) Cortisol 60 Min 22.6 ug/dL [facility] Specimen Blood Performing Organization Address [facility] Phone Number [facility] [address] [place] [address] * CORTISOL 30 MINUTES POST (07/21/2018 9:30 AM) Cortisol 30 Min 19.4 ug/dL [facility] Specimen Blood Performing Organization Address [facility] Phone Number MAIN LAB [address] [place] [address] * CORTISOL BASELINE (07/21/2018 8:40 AM) Cortisol Baseline 13.6 ug/dL [facility] Specimen Blood Performing Organization Address [facility] Phone Number MAIN LAB [address] [place] [address] * ACTH (07/21/2018 8:40 AM) Adrenocorticotropic 73 (H) REFERENCE LAB Hormone Comment: Unit: pg/mL REFERENCE VALUE - 7.2-63 (a.m. collection) [facility], [address] [place] [address] Specimen Blood Performing Organization Address [facility] Phone Number REFERENCE LAB REFERENCE LAB See results for address. * CARBAMAZEPINE LEVEL (07/21/2018 8:40 AM) Carbamazepine 3.2 (L) 6.0 - 10.0 MCG/ML [facility] Specimen Blood Performing Organization Address [facility] Phone Number MAIN LAB [address] [place] [address] * RHEUMATOID FACTOR (RF) (07/21/2018 5:58 AM) Rheum Factor Screen <20 <24 IU/mL [facility] Specimen Blood Performing Organization Address [facility] Phone Number MAIN LAB [address] [place] [address] * PERIPHERAL SMEAR (07/21/2018 5:58 AM) Peripheral Smear Microcytic, hypochromic red [facility] cells. Consider iron deficiency anemia, anemia of chronic disease, thalassemia, and sideroblastic anemia. MILD EOSINOPHILIA. PLATELETS APPEAR NORMAL IN NUMBER AND MORPHOLOGY. Pathologist Signature INTERPRETED BY CHONG ROYAL [facility] [place] By the PATH SIGNATURE ABOVE, I attest that I have personally formulated the final interpretation expressed in this report and that the above diagnosis is based upon my examination of the slides and/or other material indicated in this report. Specimen Blood Performing Organization Address [facility] Phone Number [facility] [address] [place] [address] * ANTI MANSFIELD(SM) ANTI WATER ATTENDANT AB (07/21/2018 5:58 AM) Anti-Mansfield <0.2Comment: Interpretation: <1.0 AI [facility] Negative Anti-WATER ATTENDANT <0.2Comment: Interpretation: <1.0 AI [facility] Negative Specimen Blood Performing Organization Address [facility] Phone Number [facility] [address] [place] [address] * SCL 70 ANTIBODIES (07/21/2018 5:58 AM) SCL70 Ab <0.2 <1.0 AI [facility] Comment: Interpretation: Negative NOTE NEW METHODOLOGY AND REFERENCE RANGE Specimen Blood Performing Organization Address [facility] Phone Number [facility] [address] [place] [address] * ANTI-DNA DOUBLE STRAND (07/21/2018 5:58 AM) DNA Double Strand AB <10 <10 TITER [facility] Specimen Blood Performing Organization Address [facility] Phone Number [facility] [address] [place] [address] * CENTROMERE ANTIBODIES (07/21/2018 5:58 AM) Centromere Antibody <0.2 <1.0 AI [facility] Comment: Interpretation: Negative NOTE NEW METHODOLOGY AND REFERENCE RANGE Specimen Blood Performing Organization Address [facility] Phone Number [facility] [address] [place] [address] * CCP IGG ANTIBODY (07/21/2018 5:58 AM) CCP IgG Antibody <0.5Comment: NOTE NEW <3.0 [IU]/mL [facility] METHODOLOGY AND REFERENCE RANGE Specimen Blood Performing Organization Address [facility] Phone Number MAIN LAB [address] [place] [address] * ANTI SSA ANTI SSB AB (07/21/2018 5:58 AM) Anti-SSA <0.2Comment: Interpretation: <1.0 AI [facility] Negative Anti-SSB 0.2Comment: Interpretation: <1.0 AI [facility] Negative Specimen Blood Performing Organization Address [facility] Phone Number MAIN LAB [address] [place] [address] * ANTI-NUCLEAR ANTIBODY(HERNAN) (07/21/2018 5:58 AM) HERNAN Screen <80 <80 TITER [facility] Specimen Blood Performing Organization Address [facility] Phone Number MAIN LAB [address] [place] [address] * CBC (07/20/2018 5:30 AM) White Blood Cells 7.8 4.5 - 11.0 K/UL MAIN LAB RBC 3.31 (L) 4.0 - 5.0 M/UL MAIN LAB Hemoglobin 8.6 (L) 12.0 - 15.0 GM/DL MAIN LAB Hematocrit 26.2 (L) 36 - 45 % MAIN LAB MCV 79.0 (L) 80 - 100 FL MAIN LAB MCH 26.1 26 - 34 PG MAIN LAB MCHC 33.0 32.0 - 36.0 G/DL MAIN LAB RDW 16.9 (H) 11 - 15 % MAIN LAB Platelet Count 221 150 - 400 K/UL MAIN LAB MPV 9.1 7 - 11 FL MAIN LAB Specimen Blood Performing Organization Address [facility] Phone Number MAIN LAB [address] [place] [address] * PHOSPHORUS (07/20/2018 5:30 AM) Only the most recent of 2 results within the time period is included. Phosphorus 4.4 (H) 2.0 - 4.0 MG/DL [facility] Specimen Blood Performing Organization Address [facility] Phone Number MAIN LAB [address] [place] [address] * MAGNESIUM (07/20/2018 5:30 AM) Only the most recent of 2 results within the time period is included. Magnesium 2.1 1.6 - 2.6 mg/dL MAIN LAB Specimen Blood Performing Organization Address City/[facility] Phone Number [facility] LAB [address] [place] [address] * IRON + BINDING CAPACITY + %SAT+ FERRITIN (07/19/2018 5:00 PM) Iron 24 (L) 50 - 160 MCG/DL [facility] Iron Binding-TIBC 383 (H) 270 - 380 MCG/DL MAIN LAB % Saturation 6 (L) 28 - 42 % [facility] Ferritin 6 (L) 10 - 200 NG/ML MAIN LAB Specimen Blood Performing Organization Address [facility] Phone Number MAIN LAB [address] [place] [address] * IMMUNOGLOBULIN E (IGE) (07/19/2018 5:00 PM) IgE 24 <165 IU/ML MAIN LAB Specimen Blood Performing Organization Address [facility] Phone Number MAIN LAB [address] [place] [address] * FOLATE, SERUM (07/19/2018 5:00 PM) Serum Folate 15.7Comment: NOTE NEW >3.9 NG/ML MAIN LAB REFERENCE RANGES Specimen Blood Performing Organization Address [facility] Phone Number MAIN LAB [address] [place] [address] * VITAMIN B12 (07/19/2018 5:00 PM) Vitamin B12 751 180 - 914 PG/ML MAIN LAB Specimen Blood Performing Organization Address [facility] Phone Number MAIN LAB [address] [place] [address] * CORTISOL-AM (07/19/2018 5:00 PM) Cortisol-AM 6.3 (L) 6.7 - 22.6 MCG/DL MAIN LAB Specimen Blood Performing Organization Address [facility] Phone Number MAIN LAB [address] [place] [address] * CORTISOL,RANDOM (07/19/2018 6:20 AM) Cortisol, Random 2.8 (L) 5.0 - 20.0 MCG/DL MAIN LAB Specimen Blood Performing Organization Address [facility] Phone Number MAIN LAB [address] [place] [address] * SED RATE (07/19/2018 6:20 AM) Sed Rate -ESR 5 0 - 30 MM/HR MAIN LAB Specimen Blood Performing Organization Address [facility] Phone Number MAIN LAB [address] [place] [address] * C REACTIVE PROTEIN (CRP) (07/19/2018 6:20 AM) C-Reactive Protein 0.33 <1.0 MG/DL MAIN LAB Specimen Blood Performing Organization Address [facility] Phone Number MAIN LAB [address] [place] [address] * HEMOGLOBIN A1C (07/19/2018 6:20 AM) Hemoglobin A1C 11.4 (H) 4.0 - 6.0 % MAIN LAB Comment: The ADA recommends that most patients with type 1 and type 2 diabetes maintain an A1c level <7%. Specimen Blood Performing Organization Address [facility] Phone Number MAIN LAB [address] [place] [address] * AMYLASE (07/19/2018 6:20 AM) Amylase 43 24 - 100 U/L MAIN LAB Specimen Blood Performing Organization Address [facility] Phone Number MAIN LAB [address] [place] [address] * CRITICAL CARE (07/19/2018 4:00 AM) Narrative Performed At Hoa Sarkar MD 07/21/20181:30 AM Critical Care Performed by: CHESTER HONEYCUTT Authorized by: HOA SARKRA Total critical care time in minutes: 35 [...] procedure by a resident or midlevel. * CTA CHEST WO/W CONTRAST+POST IMPRESSION (07/19/2018 [...] axillary lymphadenopathy, slightly greater on the left. Director Of Events left axillary lymph node measures 2.5 x [...] bilateral external iliac and inguinal lymph nodes. Director Of Events right external iliac lymph node measures 2.4 [...] axillary lymphadenopathy, slightly greater on the left. Director Of Events left axillary lymph node measures 2.5 x [...] bilateral external iliac and inguinal lymph nodes. Director Of Events right external iliac lymph node measures 2.4 [...] on 07/19/2018 2:25 AM. Performing Organization Address [facility] Phone Number [facility] RAD RESULTS * CT [...] on 07/19/2018 2:19 AM. Performing Organization Address [facility] Phone Number [facility] RAD RESULTS * POC CREATININE, RAD (07/19/2018 2:03 AM) Creatinine, POC 1.2 (H) 0.4 - 1.00 MG/DL [facility] MAIN LAB Performing Organization Address City/[facility]/Zipcode Phone Number MAIN LAB [address] [place] [address] * ECG-SCAN (07/19/2018 2:00 AM) Narrative Performed At Ordered by an unspecified provider. * CULTURE-BLOOD W/SENSITIVITY (07/19/2018 1:40 AM) Only the most recent of 2 results within the time period is included. Battery Name BLOOD CULTURE MAIN LAB Specimen Description BLOOD MAIN LAB LEFT UA Special Requests NONE [facility] MAIN LAB Culture NO GROWTH 5 DAYS MAIN LAB Report Status FINAL MAIN LAB 07/25/2018 Specimen Blood Performing Organization Address City/[facility]/Zipcode Phone Number MAIN LAB [address] [place] [address] from Last 3 Months
--- OUTSIDE RECORDS SUMMARY | 2018-09-17 02:30 | XMS REPORT | Encounter Summary ---
Author Author [facility] Organization [facility] Address Unknown Phone Unavailable Care Team Providers Care Director Television Name Role Phone Charles Chau MD Unavailable Sandra Wayne MD 3 Sandra Wayne MD PCP Sandra Wayne MD 100 Encounter Details Date Type Department Care Team Description 09/16/2018 Procedure Pass Emergency Dept. [address] [facility] [place] [address] Social History Tobacco Use Types Packs/Day Years [...] impairment: No 07/22/2018 as of this encounter Plan of Treatment Not on fileas of this encounter Visit Diagnoses Not on filein this encounter
--- OUTSIDE RECORDS SUMMARY | 2018-09-17 02:30 | XMS REPORT | Encounter Summary ---
Author Author [facility] Organization [facility] Address Unknown Phone Unavailable Care Team Providers Care Hot Tar Roofer Name Role Phone Charles Chau MD Unavailable Sandra Wayne MD 3 Sandra Wayne MD PCP Sandra Wayne MD 100 Reason for Referral * Consult, Test & Treat (Routine) Status Reason Specialty Diagnoses / Referred By Referred To Procedures Contact Contact Submitted Specialty Gastroenterology Diagnoses Gunnar Kirk MD [facility] Gastro Services Nausea and [address] [facility] C Required vomiting, v[address] [place] of vomiting not [phone] specified, Phone: Phone: unspecified [phone] vomiting type Fax: H/O diabetes [phone] scan Scheduling Instructions Please call and schedule pt for colonoscopy [phone] (home) * Consult, Test & Treat (Routine) Status Reason Specialty Diagnoses / Referred By Referred To Procedures Contact Contact New Request Specialty Oncology Diagnoses Gunnar Kirk MD C[facility] - [facility] Services Nausea and [address] Exm/Proc Rm Required vomiting, [facility] [place] Pav[place] of vomiting not [phone] specified, Phone: [address] unspecified [phone] [place], [place] vomiting type Fax: [phone] H/O diabetes [phone] Phone: mellitus [phone] scan Scheduling Instructions Please call and schedule pt for consult following CT imaging of unknown significance. Thanks! [phone] (home) * Radiology Services (Routine) Status Reason Specialty Diagnoses / Referred By Referred To Procedures Contact Contact No Auth Needed Radiology Diagnoses Gunnar Kirk MD 2 Nuclear Med Nausea and [address] [facility] 2nd vomiting, [address] intractability [place], [place] [address] of vomiting not [address] [place], [place] specified, Phone: [phone] unspecified [phone] Phone: vomiting type H/O diabetes [phone] mellitus P rocedures NM GASTRIC EMPTYING TIME Reason for Visit * Reason Comments Abdominal pain Encounter Details Date Type Department Care Team Description 09/13/2018 Office Visit [facility] Gunnar Kirk MD Nausea and vomiting, Physicians [address] [facility] [place] [address] vomiting not specified, Pavilion Level 2B [phone] unspecified vomiting type [address] [facility] (Primary Dx); [place], [place] H/O diabetes mellitus; [phone] scan [phone] Social History Tobacco Use Types Packs/Day Years Used Date Never Smoker Smokeless Tobacco: Never Used Alcohol Use Drinks/Week oz/Week Comments No Sex Assigned at Date Recorded Not on file as of this encounter Last Filed Vital Signs Vital Sign Reading Time Taken Blood Pressure 147/86 09/13/2018 8:07 AM CDT Pulse 86 09/13/2018 8:07 AM CDT Temperature 36.8 C (98.3 F) 09/13/2018 8:07 AM CDT Respiratory Rate 16 09/13/2018 8:07 AM CDT Oxygen Saturation - - Inhaled Oxygen - - Concentration Weight 64.3 kg (141 lb 12.8 oz) 09/13/2018 8:07 AM CDT Height 165.1 cm (5' 5") 09/13/2018 8:07 AM CDT Body Mass Index 23.6 09/13/2018 8:07 AM CDT in this encounter Functional Status [...] this encounter Instructions * Patient Instructions - Ivory Mccabe RN - 09/13/2018 8:00 AM CDT 1) We have placed a referral to Oncology to review CT imaging. Their office will be contacting you to schedule the appointment. 2) Will you be contacted to schedule colonoscopy and Hydrogen Breath Test, if you are not contacted within 1-2 weeks,please contact RN. Prep instructions provided today in clinic. * You may schedule colonoscopy separate at [facility]. ( [address] [place], [place]) Registration information provided. 3) Please schedule Gastric Emptying Test. If you do not schedule today during appointment, please contact Radiology Scheduling at [phone]. 4) Please obtain stool kit from lab ( 1st floor MOB) and complete stool testing. Lab order provided today. 5) Follow up with ALLISON Mortensen once all testing has been completed. If you need to re-schedule appointment please call [phone]. For any questions/concerns please call RN at [phone] in this encounter Plan of Treatment Name Priority Associated Diagnoses Order Schedule NM GASTRIC EMPTYING TIME Routine Nausea and vomiting, Expected: 2017 intractability of (Approximate), Expires: vomiting not specified, 09/13/2019 unspecified vomiting type H/O diabetes mellitus PANCREATIC ELASTASE, STOOL Routine Nausea and vomiting, Expected: 2017 intractability of (Approximate), Expires: vomiting not specified, 09/13/2019 unspecified vomiting type H/O diabetes mellitus Name Priority Associated Diagnoses Order Schedule AMB REFERRAL TO ONCOLOGY Routine Nausea and vomiting, Ordered: 2017 intractability of vomiting not specified, unspecified vomiting type H/O diabetes mellitus Abnormal CT scan AMB REFERRAL TO GI LAB FOR PROCEDURE Routine Nausea and vomiting, Ordered: 09/13/2018 intractability of vomiting not specified, unspecified vomiting type H/O diabetes mellitus Abnormal CT scan as of this encounter Visit Diagnoses Diagnosis Nausea and vomiting, intractability of vomiting not specified, unspecified vomiting type - Primary H/O diabetes mellitus Personal history of other endocrine, metabolic, and immunity disorders Abnormal CT scan Other nonspecific (abnormal) findings on radiological and other examinations of body structure
--- OUTSIDE RECORDS SUMMARY | 2018-09-17 02:30 | XMS REPORT | Encounter Summary ---
Author Author [facility] Organization [facility] Address Unknown Phone Unavailable Care Team Providers Care Portfolio Analyst Name Role Phone Charles Chau MD Unavailable Sandra Wayne MD 3 Sandra Wayne MD PCP Sandra Wayne MD 100 Reason for Visit * Reason Comments Other Encounter Details Date Type Department Care Team Description 09/16/2018 Telephone [facility] Gunnar Kirk MD Other Physicians [address] [facility] [place] [address] Pavilion Level 2B [phone] [address] [place] [address] Social History Tobacco Use Types [...] encounter Miscellaneous Notes * Telephone Encounter - Ara Cortez RN - 09/16/2018 8:32 AM CDT Pt's called and left a message asking questions regarding the Gastric Emptying Time test scheduled for today. He states pt is a diabetic and was not sure what to do about her insulin and her pain medication. Chart reviewed. Pt presented to the ER today and has been discharged. Attempted to reach pt regarding the above and received voice mail, left message to call. in this encounter Plan of Treatment Not on fileas of this encounter Visit Diagnoses Not on filein this encounter
--- OUTSIDE RECORDS SUMMARY | 2018-09-17 02:30 | XMS REPORT | Encounter Summary ---
Author Author [facility] Organization [facility] Address Unknown Phone Unavailable Care Team Providers Care Supervisor Sintering Plant Name Role Phone Charles Chau MD Unavailable Migue Patton MD PCP Sandra Wayne MD 3 Reason for Referral * Consult, Test & Treat (Urgent) Status Reason Specialty Diagnoses / Referred By Referred To Procedures Contact Contact Closed Specialty Endocrinology and Diagnoses Sandra Wayne [facility] Diabetes Services Type 1 diabetes MD Ortho and Medical Required / Endocrinology, mellitus with [address] & [address] Genetics (HCC) [place] [address] [place] [address] Phone: Reason for Visit * Reason Comments Establish Care Encounter Details Date Type Department Care Team Description 08/19/2018 Office Visit [facility] Sandra Wayne MD Type 1 diabetes mellitus Physicians - Internal [address] with complication (HCC) Medicine [address] (Primary Dx); [place] [address] Healthcare maintenance; Pavilion Level 4B [phone] Orthostatic hypotension; [address] 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 If she does not answer, please leave a voicemail. Out of respect for patient/ call volume, please only call once in a 24 hour period and Bonifacio will return your call as soon as she can. You may also message us in [employer]. Please note that it may take up to two business days to reply to [employer] messages. For refills on medications, please have your pharmacy fax a refill authorization request form to our office at . Please allow at least 3 business days for refill requests. For urgent issues after business hours/weekends/holidays call [phone] and request for the outpatient internal medicine physician to be paged. We offer same day appointments for your acute health concerns. These appointments are on a first come, first serve basis. Please call [phone] if you would like to make an appointment. If I am not available, you can see any of my partners or try to see me the next day (call at 8am). Take michael, Dr. Wayne and Bonifacio Future Appointments Date Time Provider Department Center 08/23/2018 12:30 PM David Chávez MD SPPAINCL SPINE 09/13/2018 8:00 AM Gunnar Kirk MD IMGASTRO [facility] IM 09/26/2018 9:20 AM Yanet Cormier MD LCOANEUR P Neuro 10/08/2018 10:20 AM Taylor Avelar MD QVIMDIAB [facility] IM in this encounter Progress Notes * Sandra Wayne MD - 08/19/2018 8:40 AM CDT Formatting of this note may be different from the original. Subjective: History of Present Illness Chelsea Castillo is a 58 y.o. female. Patient [facility] today to our [facility] care. O2 request. 58yo woman history of [...] and abdominal pain. She returned home to [place], [place] then evening of 07/18, experienced the abdominal pain with nausea and vomiting, and returned back to in [place]. She was admitted to Internal Medicine inpatient [...] while inpatient, and recommendation of continuing her FINANCIAL ANALYST INTERN Cymbalta and Xanax for her depression and [...] and is being discharged on her continued FINANCIAL ANALYST INTERN Treseba, along with Aspart 6-6-10 with meals [...] because she was told she needed an warp dyeing tender provider in the system. She lives several hours away in [facility] and does have a general practitioner that [...] did have an EEG done at [facility] (hospital notes indicate patient did not have [...] anxiety, and pain -managed by PCP in [place], [place] -discussed with patient that she would [...] counseled on regular eye exams. Follows michael [facility], saw them last in 2017 Immunosuppression due to drug therapy -on Plaquenil for arthritis - uncertain diagnosis -patient states she receives this medication from her PCP -follows with [facility] [place] -obtain outside records -high-dose flu vaccine today [...] to have a primary care physician in [facility], close to home. We discussed that she could follow here for primary care and care coordination with her specialist, and then continue to follow with Dr. Patton' s office in [place] for more urgent care issues. She however [...] appointment with her primary care physician in [place] today, we will not make any significant [...] Bonifacio and she can be reached at [phone]. If she does not answer, please leave a voicemail. Out of respect for patient/ call volume, please only call once in a 24 hour period and Bonifacio will return your call as soon as she can. You may also message us in [employer]. Please note that it may take up to two business days to reply to [employer] messages. For refills on medications, please have your pharmacy fax a refill authorization request form to our office at . Please allow at least 3 business days for refill requests. For urgent issues after business hours/weekends/holidays call [phone] and request for the outpatient internal medicine physician to be paged. We offer same day appointments for your acute health concerns. These appointments are on a first come, first serve basis. Please call [phone] if you would like to make an appointment. If I am not available, you can see any of my partners or try to see me the next day (call at 8am). Take care, Dr. Wayne and Bonifacio Future Appointments Date Time Provider Department [place] 08/23/2018 12:30 PM David Chávez MD SPPAINCL SPINE 09/13/2018 8:00 AM Gunnar Kirk MD IMBLANKA [facility] IM 09/26/2018 9:20 AM Yanet Cormier MD LCOACONSTANTINO [facility] Neuro 10/08/2018 10:20 AM Taylor Avelar MD QVIMDIAB [facility] --- in this encounter Miscellaneous [...] this medication from her PCP -follows with [facility] -obtain outside records -high-dose flu vaccine [...] counseled on regular eye exams. Follows michael [facility], saw them last in 2016 * [...] anxiety, and pain -managed by PCP in [place], [place] -discussed with patient that she would [...]
--- OUTSIDE RECORDS SUMMARY | 2018-09-17 02:30 | XMS REPORT | Encounter Summary ---
Author Author [facility] Organization [facility] Address Unknown Phone Unavailable Care Team Providers Care Client Integration Manager Name Role Phone Charles Chau MD Unavailable Sandra Wayne MD 3 Sandra Wayne MD PCP Sandra Wayne MD 100 Reason for Visit * Reason Comments Abdominal pain epigastric; has gastric emptying study this AM Headache Encounter Details Date Type Department Care Team Description 09/16/2018 Emergency Emergency Dept. Maritza Corea MD [address] [place] [address] [place] [address] [place] [address] [phone] Social History Tobacco Use Types Packs/Day Years [...] F) 09/16/2018 1:59 AM CDT Respiratory Rate - - Oxygen Saturation 97% 09/16/2018 7:00 AM CDT Inhaled Oxygen - - Concentration Weight 62.1 kg (137 lb) 09/16/2018 1:59 AM CDT Height - - Body Mass Index 22.8 09/16/2018 1:59 AM CDT in this encounter Functional Status [...] as of this encounter Discharge Instructions * Jimbo Potter MD - 09/16/2018 You were seen in the ER for abdominal pain. We obtained a CT and labs and did not find anything concerning. We recommend that you follow-up with your GI doctors to discuss her symptoms further. Please return if any of your symptoms acutely worsen. The following attachments cannot be sent through Care Everywhere.* Abdominal Pain, Adult (TURKMEN) in this encounter Medications at Time of [...] 1 2017 30 mg capsule mouth daily. electrolyte GUT PEG Mix as directed on 4000 mL 0 09/13/2018 (NULYTELY, COLYTE, package. Drink 240ml GAVILYTE-N) 420 gram oral (8oz) every 10 minutes solution until gone. Refrigerate once mixed. estrogens, conjugated(+) Insert or Apply 0.5 g [...] encounter Miscellaneous Notes * ED Notes - Rajendra Hopkins RN - 09/16/2018 7:03 AM CDT Pt and given d/c instructions and verbalized understanding of home care and follow up. Pt a&ox3, gcs=15, and up to bedside commode with steady gait. 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 * ED Notes - Rajendra Hopkins RN - 09/16/2018 5:[address] Potter at bedside to update on plan of care. Pt reports pain 9/10 to MD directly after self reporting to RN pain still 10/10. * ED Notes - Rajendra Hopkins RN - 09/16/2018 4:25 AM CDT Pt returns from CT in stable condition c/o of continued nausea and pain 10/10 with associated tearfulness. Pt assisted up to bedside commode and specimen obtained. Pt updated on plan of care and verbalized understanding. * ED Notes - Rajendra Hopkins RN - 09/16/2018 4:02 AM CDT Pt to CT via cart per tech. * ED Notes - Rajendra Hopkins, RN - 09/16/2018 3:24 AM CDT Pt continues crying on ED cart and requesting additional pain medications reporting that the 6 mg Morphine "didn't work." Will alert MD. * ED Notes - Rajendra Hopkins RN - 09/16/2018 2:[address] Potter at bedside for MD evaluation. * ED Notes - Rajendra Hopkins RN - 09/16/2018 1:55 AM CDT Pt to room 38 via WC for the evaluation of diffuse upper AP with associated subjective n/v. Pt with chronic hx of gastroparesis, AP with n/v who was scheduled to have a gastric emptying study done this am was unable to handle the pain at home. Pt asked to don gown, call light in reach, and warm blanket given. Placed on continuous BP and SpO2 monitors. Pt's at bedside. BELONGINGS: Personal blanket Pajamas Socks x 2 Shoes x 2 DENIES other valuables to document in this encounter Plan of Treatment Not [...] results section. in this encounter Results * POC BLOOD GAS ARTERIAL (09/16/2018 5:33 AM) PH-ART-POC 7.40 7.35 - 7.45 MAIN LAB [id number]-YQJ-YMX 49 (H) 35 - 45 MMHG [facility] MAIN LAB PO2-ART-POC 43 (LL) 80 - 100 MMHG [facility] MAIN LAB Base Ex-ART-POC 5.0 MMOL/L MAIN LAB O2 Sat-ART-POC 77.0 (L) 95 - 99 % [facility] MAIN LAB Uoilfbyqqvh-CDZ-VFS 30.1 (H) 21 - 28 MMOL/L MAIN LAB Performing Organization Address [facility] Phone Number [facility] [address] [place] [address] * URINALYSIS, MICROSCOPIC (09/16/2018 4:35 AM) WBCs,UA 0-2 0 - 2 /HPF MAIN LAB RBCs,UA 0-2 0 - 3 /HPF MAIN LAB MucousUA TRACE MAIN LAB Squamous Epithelial Cells 0-2 0 - 5 MAIN LAB Specimen Urine - Urine Performing Organization Address [facility] Phone Number [facility] [address] [place] [address] * URINALYSIS DIPSTICK (09/16/2018 4:35 AM) Color,UA YELLOW [facility] MAIN LAB Turbidity,UA CLEAR CLEAR-CLEAR MAIN LAB Specific [place]-Urine 1.035 1.003 - 1.035 MAIN LAB pH,UA 7.0 5.0 - 8.0 [facility] MAIN LAB Protein,UA 1+ (A) NEG-NEG MAIN LAB Glucose,UA 3+ (A) NEG-NEG MAIN LAB Ketones,UA 2+ (A) NEG-NEG MAIN LAB Bilirubin,UA NEG NEG-NEG MAIN LAB Blood,UA NEG NEG-NEG MAIN LAB Urobilinogen,UA NORMAL NORM-NORMAL MAIN LAB Nitrite,UA NEG NEG-NEG MAIN LAB Leukocytes,UA NEG NEG-NEG MAIN LAB Urine Ascorbic Acid, UA NEG NEG-NEG MAIN LAB Specimen Urine - Urine Performing Organization Address [facility] Phone Number [facility] [address] [place] [address] * CT ABD/PELV W CONTRAST (09/16/2018 4:22 AM) Impressions Performed At 1.Mild bilateral external iliac [...] ascites. Pelvis: Mild external iliac lymphadenopathy bilaterally. Blacksmith Supervisor left external iliac lymph node measures 1.6 [...] ascites. Pelvis: Mild external iliac lymphadenopathy bilaterally. Blacksmith Supervisor left external iliac lymph node measures 1.6 [...] on 09/16/2018 4:36 AM. Performing Organization Address [facility] Phone Number RAD RESULTS * POC LACTATE (09/16/2018 2:47 AM) LACTIC ACID POC 1.6 0.5 - 2.0 MMOL/L MAIN LAB Performing Organization Address [facility] Phone Number MAIN LAB [address] [place] [address] * BETA HYDROXYBUTYRATE (KETONES) (09/16/2018 2:46 AM) Beta Hydroxybutyrate 1.4 (H) <0.3 MMOL/L MAIN LAB Comment: Beta hydroxybutyrate (BOHB) is the most abundant ketone (78%), followed by acetoacetate (20%) and acetone (2%).Measurement BOHB is recommended to assess ketones in DKA. Expected BOHB Results for DKA: Initial presentation high/increasing During treatment decreasing Resolved decreasing/normal Performing Organization Address [facility] Phone Number MAIN LAB [address] [place] [address] * LIPASE (09/16/2018 2:46 AM) Lipase 6 (L) 11 - 82 U/L MAIN LAB Specimen Blood Performing Organization Address [facility] Phone Number MAIN LAB [address] [place] [address] * COMPREHENSIVE METABOLIC PANEL (09/16/2018 2:46 AM) Sodium 138 137 - 147 MMOL/L KU [...] City/State/Zipcode Phone Number [facility] MAIN LAB [address] [place] [address] * CBC AND DIFF (09/16/2018 2:46 AM) White Blood Cells 11.3 (H) 4.5 - [...] Basophil Count 0.10 0 - 0.20 K/UL MAIN LAB Specimen Blood Performing Organization Address City/State/Zipcode Phone Number MAIN LAB [address] [place] [address] in this encounter Visit Diagnoses Diagnosis Generalized abdominal pain - Primary Abdominal pain, generalized Administered Medications Medication Order MAR Action Action Date Dose Rate Site chlorproMAZINE (THORAZINE) 25 mg in Given - New 09/16/2018 25 mg 200 mL/hr sodium chloride 0.9% (NS) 100 mL IVPB Bag 04:54 CDT 25 mg, Intravenous, 100 mL, Administer over 30 Minutes, ONCE, 1 dose, Sun09/16/18 at 0415, PROTECT FROM LIGHT HEPARIN, PORCINE (PF) 100 UNIT/ML IV Given 09/16/2018 SYRG (Cabinet Override) 06:57 CDT NOW, 1 dose, Sun09/16/18 at 0645, Created by cabinet override NOTE: This is a HIGH ALERT Medication. HYDROcodone/acetaminophen (VICODIN) Given 09/16/2018 1 tablet 10/300 mg tablet 1 tablet 06:38 CDT 1 tablet, Oral, ONCE, 1 dose, Sun09/16/18 at 0645, TOTAL ACETAMINOPHEN DOSE NOT TO EXCEED 4GM DAILY NOTE: This is a HIGH ALERT medication. iopamidol 370 (ISOVUE-370) injection 80 Given 09/16/2018 80 mL mL 04:30 CDT 80 mL, Intravenous, ONCE, 1 dose, Sun09/16/18 at 0430, NOTE: This is a HIGH ALERT Medication. lactated ringers infusion Given - New 09/16/2018 1,000 mL 1,000 mL, 1,000 mL, Intravenous, BOLUS, Bag 02:42 CDT 1 dose, Sun09/16/18 at 0230 morphine injection syringe 6 mg Given 09/16/2018 6 mg 6 mg, Intravenous, ONCE, 1 dose, Mon 02:41 CDT 09/16/18 at 0230 morphine injection syringe 6 mg Given 09/16/2018 6 mg 6 mg, Intravenous, EVERY 1 HOUR PRN, 3 05:53 CDT doses, Starting Sun09/16/18 at 0538, Until Sun09/16/18 at 0915, Pain Injectable ondansetron (ZOFRAN) injection 4 mg Given 09/16/2018 4 mg 4 mg, Intravenous, NEEDED, 2 doses, 03:21 CDT Starting 09/16/18 at 0417, Until 09/16/18 at 0915, Nausea/Vomiting Injectable, May repeat x 1 if nausea remains after 30 minutes. sodium chloride PF 0.9% injection 50 mL Given 09/16/2018 50 mL 50 mL, Intravenous, ONCE, 1 dose, Mon 04:30 CDT 09/16/18 at 0430, Intra-procedure (IR) in this encounter
--- OUTSIDE RECORDS SUMMARY | 2018-09-17 02:30 | XMS REPORT | Encounter Summary ---
Author Author [facility] Organization [facility] Address Unknown Phone Unavailable Care Team Providers Care Hat Lining Blocker Name Role Phone Charles Chau MD Unavailable Sandra Wayne MD 3 Sandra Wayne MD PCP Sandra Wayne MD 100 Encounter Details Date Type Department Care Team Description 09/13/2018 Prep for Case [facility] Gunnar Kirk MD Nausea and vomiting, Physicians [address] [facility] intractability of [place] [address] vomiting not specified, Pavilion Level 2B [phone] unspecified vomiting type [address] (Primary Dx); [place], [place] Encounter for screening [phone] colonoscopy [phone] Social History Tobacco Use Types Packs/Day Years [...] on fileas of this encounter Visit Diagnoses Diagnosis Nausea and vomiting, intractability of vomiting not specified, unspecified vomiting type - Primary Encounter for screening colonoscopy Special screening for malignant neoplasms, colon
--- OUTSIDE RECORDS SUMMARY | 2018-09-17 02:31 | XMS REPORT | Encounter Summary ---
Author Author [facility] Organization [facility] Address Unknown Phone Unavailable Care Team Providers Care Dial Mounter Name Role Phone Charles Chau MD Unavailable Migue Patton MD PCP Reason for Visit * Reason Comments Abdominal pain diabetes x 2 days with nausea and diarrhea Released from hospital sunday night for same symptoms. hx of DM, pt reports sugars was 112 about an hour ago Encounter Details Date Type Department Care Team Description 07/24/2018 Emergency Emergency Dept. [address] [place] [address]. [place] [address] Social History Tobacco Use Types Packs/Day Years [...] sent through Care Everywhere.* Headaches, Self-Care for (TUNISIAN) * Vomiting (Adult) (TUNISIAN) in this encounter Medications at Time of [...] with neurology tomorrow. History provided by: Patient tool filer hand used: No Review of Systems: Review of [...] : Negative QC: Acceptable Urine Lot #: [id number] EKG: NSR at 71 bpm ED Course: The pt was seen and evaluated by Matias Kazmaier, CERTIFIED MEDICAL BILLER Labs were ordered. Pt was given compazine, [...] Disposition/Follow up Discharge Migue Patton III, MD [address] [facility] [address] As needed Dpt [facility], Neurology [address] [facility] [address] In 1 day as scheduled Emergency Dept. [address] [place] [address]. [facility] [address] If symptoms worsen Medications: New Prescriptions No medications on file Procedure Notes: Procedures Attestation / Supervision: Perla Boyd, acacia scribing for and in the presence of Marcela Berman APRN. Perla Irizarry Attestation / Supervision Note concerning Chelsea Castillo: The service was provided by the REALTY LOAN SPECIALIST alone with immediate availability of a physician [...] at her side. She was discharged from [facility] on Sunday and doctor wanted to keep her another day, but she wanted to go home because she was feeling better. She reports that nausea and vomiting and migraine started last night and they drove here from where they live near [place], [place] as all her doctors are here. [...] Specimen Urine - Urine Performing Organization Address City/State/[facility] Phone Number MAIN LAB [address] [place] [address] * URINALYSIS DIPSTICK (07/24/2018 9:19 PM) Color,UA YELLOW [facility] MAIN LAB Turbidity,UA CLEAR CLEAR-CLEAR [facility] MAIN LAB Specific [place]-Urine 1.016 1.003 - 1.035 [facility] MAIN LAB [...] Specimen Urine - Urine Performing Organization Address [facility] Phone Number MAIN LAB [address] [place] [address] * LIPASE (07/24/2018 6:02 PM) Lipase 13 11 - 82 U/L MAIN LAB Specimen Blood Performing Organization Address [facility] Phone Number [facility] [address] [place] [address] * COMPREHENSIVE METABOLIC PANEL (07/24/2018 6:02 PM) [...] City/State/Zipcode Phone Number [facility] MAIN LAB [address] [place] [address] * CBC AND DIFF (07/24/2018 6:02 PM) [...] Address City/State/Zipcode Phone Number [facility] MAIN LAB [address] [place] [address] in this encounter Visit Diagnoses Diagnosis Acute [...]
--- OUTSIDE RECORDS SUMMARY | 2018-09-17 02:31 | XMS REPORT | Encounter Summary ---
Author Author [facility] Organization [facility] Address Unknown Phone Unavailable Care Team Providers Care Sagger Preparer Name Role Phone Charles Chau MD Unavailable Migue Patton MD PCP ToneSandra bagley MD 3 Sandra Wayne MD PCP Sandra Wayne MD 100 Reason for Visit * Reason Comments Appointment Encounter Details Date Type Department Care Team Description 07/29/2018 Telephone [facility] Balbina Matamoros, Nguyễn Physicians ASSISTANT NEWS DIRECTOR-BACK UP SCAN COORDINATOR Ortho and Medical [address] [facility] Pav[address] [place] [address] [address] [facility] [phone] [place] [address] Social History Tobacco Use Types [...]
--- OUTSIDE RECORDS SUMMARY | 2018-09-17 02:31 | XMS REPORT | Encounter Summary ---
Author Author [facility] Organization [facility] Address Unknown Phone Unavailable Care Team Providers Care Tip Stitcher Name Role Phone Charles Chau MD Unavailable Migue Patton MD PCP Reason for Visit * Reason Comments Prior Authorization Ondansetron Encounter Details Date Type Department Care Team Description 07/23/2018 Telephone [facility] Balbina Matamoros, Prior Authorization Physicians CAFETERIA CLERK-EMISSIONS REPAIR TECHNICIAN (Ondansetron ) Ortho and Medical [address] [place] [address] [phone] [place] [address] Social History Tobacco Use Types [...] CDT Completed [place] for medication Ondansetron through [facility], waiting on approval or denial. in this encounter Plan of Treatment Not on fileas of this encounter Visit Diagnoses Not on filein this encounter
--- OUTSIDE RECORDS SUMMARY | 2018-09-17 02:31 | XMS REPORT | Encounter Summary ---
Author Author [facility] Organization [facility] Address Unknown Phone Unavailable Care Team Providers Care Application Support Administrator Name Role Phone Charles Chau MD Unavailable Migue Patton MD PCP Reason for Visit * Reason Comments Chest Pain intermittent since yesterday, associated dizziness, Encounter Details Date Type Department Care Team Description 08/04/2018 Emergency Emergency Dept. Hoa Zhao MD [address] [address] [place] [address] [place] [address] [phone] Social History Tobacco Use Types Packs/Day Years [...] hot shower. Use medicines Aspirin or other hpfj-yma-xynyugj pain medicines, such as ibuprofen and acetaminophen, [...] you have ever had." Date Last Reviewed: 01/17/201819997814-[address] [employer] [place] [address]. All rights reserved. This information is not [...] loosen secretions in the nose and lungs. Mmln-bsw-vbmjxaw cold medicines will not shorten the length of time youre sick, but they may be helpful for the following symptoms: cough, sore throat, and nasal and sinus congestion. If you take prescription medicines, ask your healthcare provider or pharmacist which fzdf-ggy-mawvaxg medicines are safe to use. (Note: Don't [...] with a muffled voice Date Last Reviewed: 04/19/201819997539-2323 [employer]. [address] [place] [address]. All rights reserved. This information is not [...] AM. EKG: Sinus rhythm heart rate 77 LA 160, QRS 80, QTc 421 No acute [...] Disposition/Follow up Discharge Migue Patton III, MD [address] [facility] [address] In 3 days Medications: Discharge Medication List [...] City/State/Zipcode Phone Number [facility] MAIN LAB [address] [place] [address] * URINALYSIS DIPSTICK (08/04/2018 7:12 PM) Color,UA YELLOW [facility] MAIN LAB Turbidity,UA CLEAR CLEAR-CLEAR [facility] MAIN LAB Specific [place]-Urine 1.020 1.003 - 1.035 [facility] MAIN LAB [...] Specimen Urine - Urine Performing Organization Address City/[facility] Phone Number [facility]IN [facility] [address] [place] [address] * CHEST SINGLE VIEW (08/04/2018 5:10 PM) [...] on 08/05/2018 7:27 AM. Performing Organization Address City/[facility] Phone Number [facility] RAD RESULTS * FREE T4-FREE THYROXINE (08/04/2018 4:46 PM) T4-Free 1.1 0.6 - 1.6 NG/DL [facility] MAIN LAB Performing Organization Address City/[facility] Phone Number [facility] [address] [place] [address] * POC TROPONIN (08/04/2018 4:46 PM) Wdhoxvfw-M-DMO 0.02 0.00 - 0.05 NG/ML [facility] MAIN LAB Performing Organization Address [facility] Phone Number [facility] MAIN [facility] [address] [place] [phone] * POC GLUCOSE (08/04/2018 4:46 PM) Glucose, POC 212 (H) 70 - 100 MG/DL [facility] MAIN LAB Performing Organization Address [facility] Phone Number [facility] MAIN [facility] [address] [place] [address] * TSH WITH FREE T4 REFLEX (08/04/2018 4:46 PM) TSH 0.330 (L) 0.35 - 5.00 MCU/ML [facility] MAIN LAB Specimen Blood Performing Organization Address [facility] Phone Number [facility] MAIN [facility] [address] [place] [address] * COMPREHENSIVE METABOLIC PANEL (08/04/2018 4:46 PM) [...] for questions. Specimen Blood Performing Organization Address City/[facility]/Zipcode Phone Number [facility] MAIN LAB [address] [place] [address] * CBC AND DIFF (08/04/2018 4:46 PM) [...] MAIN LAB Specimen Blood Performing Organization Address City/[facility]/Zipcode Phone Number [facility] MAIN LAB [address] [place] [address] in this encounter Visit Diagnoses Diagnosis Acute [...]
--- OUTSIDE RECORDS SUMMARY | 2018-09-17 02:33 | XMS REPORT | Encounter Summary ---
Author Author [facility] Organization [facility] Address Unknown Phone Unavailable Care Team Providers Care Fabricator Special Items Name Role Phone Charles Chau MD Unavailable Migue Patton MD PCP Sandra Wayne MD 3 Sandra Wayne MD PCP Sandra Wayne MD 100 Encounter Details Date Type Department Care Team Description 07/19/2018 Procedure Pass [facility] [address] [place] [address] Social History Tobacco Use Types Packs/Day Years [...]
--- OUTSIDE RECORDS SUMMARY | 2018-09-17 02:33 | XMS REPORT | Encounter Summary ---
Author Author [facility] Organization [facility] Address Unknown Phone Unavailable Care Team Providers Care Nitrate Operator Name Role Phone Charles Chau MD Unavailable Rubio Meza MD PCP Reason for Referral * Consult, Test & Treat (Routine) Status Reason Specialty Diagnoses / Referred By Referred To Procedures Contact Contact New Request Specialty Rheumatology Diagnoses Leisa Chamberlain MD [facility] Abdominal pain, [address] Rheumatology Cl Required unspecified [address]VD [facility] abdominal MS [id number] [address] [place], [place] Phone: [phone] Phone: * (Routine) Status Reason Specialty Diagnoses / Referred By Referred To Procedures Contact Contact New Request Procedures Sandra Ho F/U APPT MD REQUEST: [facility] [address] [facility] [place] [place] [address] [place] [address] * (Routine) Status Reason Specialty Diagnoses / Referred By Referred To Procedures Contact Contact New Request Procedures Sandra Ho F/U APPT MD REQUEST: [facility] [address] [facility] [place] [place] [address] [place] [address] Reason for Visit * Reason Comments Head Pain Vomiting * Auth/Cert Status Reason Specialty Diagnoses / Referred By Referred To Procedures Contact Contact Diagnoses Abdominal pain Encounter Details Date Type Department Care Team Description 07/19/2018 [facility] CARDIAC AND FAMILY Hoa Sarkar MD Chronic abdominal pain - Encounter MEDICINE PROGRESSIVE CARE [address] 07/22/2018 [address] [place] [address] [place] [address] [phone] B Jimbo melton DO F ink, Jennifer, MD [address] [facility] MS [address] [place] [address] [phone] Social History Tobacco Use Types Packs/Day Years [...] during this hospitalization: (with pertinent details). Mrs. hCelsea Castillo is a 58 year old female [...] and abdominal pain. She returned home to [place], [place] then evening of 07/18, experienced the abdominal pain with nausea and vomiting, and returned back to in [place]. She was admitted to Internal Medicine inpatient [...] while inpatient, and recommendation of continuing her TRIMMER SORTER Cymbalta and Xanax for her depression and [...] and is being discharged on her continued TRIMMER SORTER Treseba, along with Aspart 6-6-10 with meals [...] home, you can call a dietitian at [phone]. Activity as Tolerated It is important to [...] education. The class is held in the [facility] on the 5th floor of the Medical Office Building, every Sunday from 10:00-12:00 noon and every Sunday 3:00 pm - 5:00 pm. The class is not held on actual or observed holidays. You do not need an appointment for this and we will not bill your insurance. More diabetes education and individual nutrition appointments are offered at the [facility]. Most insurance plans cover these services if you have a referral from your doctor. Call [phone], option 3 or go to [email or web address] for details. Report These Signs and Symptoms Please contact your doctor if you have any of the following symptoms: temperature higher than 100 degrees F, uncontrolled pain, persistent nausea and/ or vomiting, difficulty breathing, chest pain, severe abdominal pain, unable to urinate or unable to have bowel movement. Questions About Your Stay For questions or concerns regarding your hospital stay. Call [phone] Discharging attending physician: LEISA CHAMBERLAIN [[id number]] Diabetic Diet You should eat between 1600 and 2000 calories per day. This is equal to 60g ( grams) of carbohydrates per meal, and 30g of carbohydrates for a bedtime snack. If you have questions about your diet after you go home, you can call a dietitian at [phone]. Current Discharge Medication List START taking these medications Details acetaminophen/lidocaine/antacid DS(#) (GI COCKTAIL) 1:1:3 Take 30 mL by mouth three times daily as needed. Qty: 300 mL, Refills: 0 PRESCRIPTION TYPE: Fax This prescription was faxed to the pharmacy Pharmacy: [address] ( #: [phone]) coenzyme Q10(+) 100 mg cap Take one [...] please feel free to call [facility] at [phone] and you will directed to the area [...] to schedule a follow up appointment - [phone] If you have any questions, please feel free to call at [phone] and you will directed to the area [...] Continue Synthroid DM - A1c 11% - TRIMMER SORTER Treseba 17U and Aspart 6-6-10, MDCF Plan: - Lyrica for neuropathy - Insulin as noted above History of Seizures - Unclear how diagnosis was established; patient reports being told she has Absence seizures - TRIMMER SORTER Tegretol - Also reports taking Ativan 2mg BID for seizures??? (but prescribed as Ativan 1mg q4h PRN for nausea and prescribed by PCP) - No history of EEG per patient Plan: - Continue Tegretol - Decrease Ativan to 1mg BID PRN so as not to withdrawal - Will schedule neuro follow up outpatient Depression and Anxiety - Uncontrolled - TRIMMER SORTER Cymbalta and Xanax Plan: - Continue medications per psych recommendations Orthostatic Hypotension - Continue Florinef Plan: - Establish care with Outpatient Internal medicine at for continued care Allergies - Continue Zyrtec and Singulair Estrogen Replacement - On topical and tablet. Would like to continue topical only on discharge. - Discussed w/ HOST/HOSTESS GROUND - OK to discontinue oral estrogen w/o [...] Chamberlain MD Date: 07/22/2018 Internal Medicine, Hospitalist [phone] Subjective Chelsea Castillo is a 58 y.o. [...] 0432) POC Glucose (Download): (!) 103 (07/22/18 0824) Radiology and other Diagnostics Review: No pertinent [...] Score: 42.48 Basic Mobility CMS 0-100%: 36.99 [facility] G Code Modifier for Basic Mobility: CJ [...] Continue Synthroid DM - A1c 11% - TRIMMER SORTER Treseba 17U and Aspart 4-4-10 Plan: - Continue TRIMMER SORTER insulin and add SS. Titrate as needed - Lyrica for neuropathy History of Seizures - Unclear how diagnosis was established; patient reports being told she has Absence seizures - TRIMMER SORTER Tegretol - Also reports taking Ativan 2mg BID for seizures??? (but prescribed as Ativan 1mg q4h PRN for nausea and prescribed by PCP) Plan: - Continue Tegretol - Decrease Ativan to 1mg BID PRN so as not to withdrawal - Will schedule neuro follow up outpatient - no hx EEG per pt or her HB Depression and Anxiety - Uncontrolled - TRIMMER SORTER Cymbalta and Xanax Plan: - Continue medications per psych recommendations Orthostatic Hypotension - Continue Florinef Plan: - Establish care with Outpatient Internal medicine at for continued care Allergies - Continue Zyrtec and Singulair Estrogen Replacement - On topical and tablet. Would like to continue topical only on discharge. Discuss with HOST/HOSTESS GROUND if need to taper oral estrogen. Plan: - Will contact HOST/HOSTESS GROUND about possible need to taper oral estrogen? FEN: No IVFs, monitor lytes, Full liquid diet and advancing PPX: Lovenox Code: Full Dispo: Patient continues admission for work-up of abdominal pain along with establishment of follow up at > Due to complexity of patients underlying conditions, patient will need follow up with numerous outpatient specialist at including: GI, Neurology, Psychiatry, Internal Medicine Nab Romero PGY-1 Patient has been seen and [...] Chamberlain MD Date: 07/21/2018 Internal Medicine, Hospitalist [phone] Subjective Chelsea Castillo is a 58 y.o. [...] Continue Synthroid DM - A1c 11% - TRIMMER SORTER Treseba 17U and Aspart 4-4-10 Plan: - Continue TRIMMER SORTER insulin and add SS. Titrate as needed - Lyrica for neuropathy H/o Szs? - TRIMMER SORTER Tegretol - Also reports taking Ativan 2mg BID for seizures??? (but prescribed as Ativan 1mg q4h PRN for nausea and prescribed by PCP) Plan: - Continue Tegretol. Check level - Decrease Ativan to 1mg BID PRN so as not to withdrawal. Likely needs Neuro follow up outpatient to assess regimen and appropriateness of regimen Depression and Anxiety - Uncontrolled - TRIMMER SORTER Cymbalta and Xanax Plan: - Continue Psych Orthostatic Hypotension - Continue Florinef Allergies - Continue Zyrtec and Singulair Estrogen Replacement - On topical and tablet. Would like to continue topical only on discharge. Discuss with HOST/HOSTESS GROUND if need to taper oral estrogen. FEN: No IVFs, monitor lytes, CLD PPX: Lovenox Code: Full Dispo: Continue admission to Med 3 Seen and discussed with Dr. Bulmaro Holguin PGY-3 6553 ATTESTATION I personally performed the ortega portions [...] Chamberlain MD Date: 07/20/2018 Internal Medicine, Hospitalist [phone] Subjective Chelsea Castillo is a 58 y.o. [...] and a.m. Cortisol -for now resumed her variety lathe operator meds as listed except for prn [...] on telemetry for close monitoring Hypothyroidism -resumed variety lathe operator synthroid DM -unknown variety lathe operator dosing of insulin. Placed on sliding scale for now FEN: no ivf, replete as needed, NPO until awaken then can advance as tolerated to diabetic diet Code: full for now, needs further discussion with patient Dispo: admit to medicine PPx: lovenox Patient to be discussed with attending transportation sales consultant __ Primary Care Physician: Rubio Meza III [...] 07/19/18 2:52 AM Result Value Ref Range Dkezugmh-B-LGT 0.01 0.00 - 0.05 NG/ML URINALYSIS DIPSTICK Collection Time: 07/19/18 4:10 AM Result Value Ref Range Color,UA YELLOW Turbidity,UA CLEAR CLEAR-CLEAR Specific [place]-Urine 1.030 1.003 - 1.035 pH,UA 8.0 5.0 [...] - continuing Synthroid DM - HbA1C 11.4; TRIMMER SORTER Humalog 02/20/10; Treseba 17U --> LDCF while [...] Care plan was discussed with the patient, counter caser, house staff, and pharmacist. Staff Name: Sandra Ho MD Date: 07/19/2018 in this encounter Consult Notes * Amada Wolf MD - 07/20/2018 1:16 PM CDT Associated Order(s): CONSULT ADULT PSYCHIATRY PHYSICIAN Formatting of this note may be different from the original. PSYCHIATRY CONSULT NOTE Room/Bed: [place] [address] Admission Date: 07/19/2018 LOS: 1 day Consult type: Opinion with orders Reason for Consult: Depression Assessment: 1. Other specified depressive disorder 2. Other specified anxiety disorder 3. Stimulant use disorder, in sustained remission 4. R/O PTSD Recommendations: - Agree with adrenal workup given abdominal pain and low random cortisol - Agree with holding TRIMMER SORTER Adderall at this time - Would increase Cymbalta to 90mg Qday for better control of anxiety - Continue TRIMMER SORTER Tegretol, Pregabalin given suggestion of seizure d/o per patient' s report? Vs what sounds like dissociative episodes per interview today Seen and discussed with: Dr. Connelly Please feel free to contact us with any additional questions or concerns by paging the consult team between 8am and 5pm on weekdays and between 8am and 3pm on weekends at [phone]. Otherwise, page the vice president digital strategist transportation sales consultant. Chief Concern: "I don't know" History of [...] 20 years ago. Psychosocial History: From [facility]. Did not complete highschool, because got . Grew up with her mother and 6 siblings. 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 5 years, together 20 years. First marriage [...] Sustained Cognition: No signs of impairment Language: Lao Fund of knowledge and vocabulary: Average Focused [...] and between 8am and 3pm on weekends [phone]. Otherwise, page the vice president digital strategist transportation sales consultant. Staff name: Nathalie Connelly MD Date: 07/20/2018 * Cindy Jaramillo RN - 07/19/2018 1:18 PM CDT Associated Order(s): CONSULT NURSING PAIN MANAGEMENT Formatting of this note may be different from the original. Nursing Pain Management Initial Consult Pt. Name: Chelsea Castillo Admit Date: 07/19/2018 Room: [place] [address] Reason for Consult: "Transition PO regimen; Taper opioids; Complex pain patient ; Chronic opioid therapy" Communication: Discussed patient's plan of care with Dr. Romero. Suggestions to Consider: Hydrocodone-acetaminophen 10-300 mg tablet, 1 tab PO Q 6 hours PRN pain PO- TRIMMER SORTER medication Continue carbamazepine- TRIMMER SORTER medication Continue duloxetine DR- TRIMMER SORTER medication Discontinue nortriptyline- Patient does not take nortriptyline at home. Continue pregabalin- TRIMMER SORTER medication Change tizanidine 4 mg PO QHS PRN muscle cramps, spasms- TRIMMER SORTER medications Patient will benefit from a multimodal [...] patient. Please page with questions/concerns, team pager [phone]. ASHLEY Mcleod, RN- Clinical Nurse Coordinator Pain Management [phone] Summary: Ms. Chelsea Castillo is a 58 [...] Q 6 hours PRN Recent Prescription History: [facility] 07/15/2018 [...] drinking/ Rest, pain medications Last Bowel Movement: TRIMMER SORTER Opioid Calculations: Date: TRIMMER SORTER Hydrocodone-acetaminophen ~ 40 mg Total oral morphine [...] and read back): Blood glucose 516 Time MD/MARBLE CLEANER Notified: [phone] MD/MARBLE CLEANER Name: Dr Maximus ILAO/MARBLE CLEANER Response/Orders Given: No new orders at this [...] - r/o gastroparesis vs eosinophilic gastritis vs [place]'s vs malignancy vs cyclic vomiting syndrome - [...] as 9% - UA+ for glucosuria >> TRIMMER SORTER includes Degludec 17U with Humalog 02/20/10 >> Adjust inpt dosing accordingly Olayinka Ferrer, MS3, MLS([facility]) 07/19/2018 2:22 PM * Case Mgmt DC [...] will continue to follow Patient Address/Phone [address] [address] (home) Emergency Contact Extended Emergency Contact Information Primary Emergency Contact: Dioni Castillo [facility] Mobile Relation: Spouse Secondary Emergency Contact: Quiana Iqbal [facility] Mobile Relation: Sister Healthcare Directive Transportation Does [...] PCP Rubio Meza III, , ? Pharmacy [facility] [place], [place] - [address] [facility] [address] [facility] [address] ? Durable Medical Equipment Durable Medical Equipment [...] 2018 Name of rehab location/group: Facility in [facility] Would patient return for future services?: Yes OT: No STRATEGIC PROCUREMENT MANAGER: No ? Correction Facility/Residential SNF: No NH: No ? Inpatient Rehab IPR: No ? Long-Term Acute Care Hospital LTACH: No ? Acute Hospital Stay Acute Hospital Stay: No Sandra Felipe RN. MSN Integrated Nurse Job Hand Pager [phone] * ED Notes - Suleiman Adorno RN - 07/19/2018 9:24 AM CDT Pt blood sugar is 61, provided orange juice, crackers, and peanut butter. * ED Notes - Yusra Boss RN - 07/19/2018 8:57 AM CDT 0854: [id number]. Please call [place] @ [phone] for report. * ED Notes - Juana [...] in the clinic. They returned home to [place], [place] around 1999, and the pain began [...] in the results section. ANTI MANSFIELD(SM) ANTI FIELD CONTRACTOR Routine 07/21/2018 Results for this AB 5:58 [...] 100 MG/DL MAIN LAB Performing Organization Address City/State/[facility] [[email or web address] Phone Number [facility] MAIN LAB [address] [place] [address] * POC GLUCOSE (07/22/2018 1:21 PM) Glucose, POC 220 (H) 70 - 100 MG/DL [facility] MAIN LAB Performing Organization Address [facility] [[email or web address]]copr Phone Number [facility] MAIN LAB [address] [place] [address] * POC GLUCOSE (07/22/2018 8:55 AM) Glucose, POC 103 (H) 70 - 100 MG/DL [facility] MAIN LAB Performing Organization Address [facility] Phone Number [facility] [address] [place] [address] * CBC AND DIFF (07/22/2018 4:32 AM) [...] MAIN LAB Specimen Blood Performing Organization Address [facility] [[email or web address]]code Phone Number [facility] MAIN LAB [address] [place] [address] * COMPREHENSIVE METABOLIC PANEL (07/22/2018 4:32 AM) [...] for questions. Specimen Blood Performing Organization Address City/[facility]/Zipcode Phone Number MAIN LAB [address] [place] [address] * POC GLUCOSE (07/21/2018 8:20 PM) Glucose, POC 350 (H) 70 - 100 MG/DL [facility] MAIN LAB Performing Organization Address City/[facility]/Zipcode Phone Number MAIN LAB [address] [place] [address] * POC GLUCOSE (07/21/2018 6:45 PM) Glucose, POC 129 (H) 70 - 100 MG/DL [facility] MAIN LAB Performing Organization Address City/[facility]/Zipcode Phone Number MAIN LAB [address] [place] [address] * POC GLUCOSE (07/21/2018 1:22 PM) Glucose, POC 239 (H) 70 - 100 MG/DL MAIN LAB Performing Organization Address [facility] Phone Number MAIN LAB [address] [place] [address] * ECG-SCAN (07/21/2018 1:09 PM) Narrative Performed At Ordered by an unspecified provider. * CORTISOL 60 MINUTES POST (07/21/2018 10:10 AM) Cortisol 60 Min 22.6 ug/dL MAIN LAB Specimen Blood Performing Organization Address [facility] Phone Number MAIN LAB [address] [place] [address] * POC GLUCOSE (07/21/2018 9:39 AM) Glucose, POC 165 (H) 70 - 100 MG/DL MAIN LAB Performing Organization Address [facility] Phone Number MAIN LAB [address] [place] [address] * CORTISOL 30 MINUTES POST (07/21/2018 9:30 AM) Cortisol 30 Min 19.4 ug/dL MAIN LAB Specimen Blood Performing Organization Address [facility] Phone Number MAIN LAB [address] [place] [address] * ACTH (07/21/2018 8:40 AM) Adrenocorticotropic 73 (H) REFERENCE LAB Hormone Comment: Unit: pg/mL REFERENCE VALUE - 7.2-63 (a.m. collection) [facility], [address] [facility], [place] [address] Specimen Blood Performing Organization Address [facility] [[email or web address]]copr Phone Number REFERENCE LAB REFERENCE LAB See results for address. * CARBAMAZEPINE LEVEL (07/21/2018 8:40 AM) Carbamazepine 3.2 (L) 6.0 - 10.0 MCG/ML MAIN LAB Specimen Blood Performing Organization Address [facility] Phone Number MAIN LAB [address] [place] [address] * CORTISOL BASELINE (07/21/2018 8:40 AM) Cortisol Baseline 13.6 ug/dL MAIN LAB Specimen Blood Performing Organization Address [facility] Phone Number MAIN LAB [address] [place] [address] * ANTI MANSFIELD(SM) ANTI FIELD CONTRACTOR AB (07/21/2018 5:58 AM) Anti-Mansfield <0.2Comment: Interpretation: <1.0 AI MAIN LAB Negative Anti-FIELD CONTRACTOR <0.2Comment: Interpretation: <1.0 AI MAIN LAB Negative Specimen Blood Performing Organization Address [facility] Phone Number MAIN LAB [address] [place] [address] * CENTROMERE ANTIBODIES (07/21/2018 5:58 AM) Centromere Antibody <0.2 <1.0 [facility] MAIN LAB Comment: Interpretation: Negative NOTE NEW METHODOLOGY AND REFERENCE RANGE Specimen Blood Performing Organization Address [facility] Phone Number MAIN LAB [address] [place] [address] * CCP IGG ANTIBODY (07/21/2018 5:58 AM) CCP IgG Antibody <0.5Comment: NOTE NEW <3.0 [IU]/mL MAIN LAB METHODOLOGY AND REFERENCE RANGE Specimen Blood Performing Organization Address [facility] Phone Number MAIN LAB [address] [place] [address] * SCL 70 ANTIBODIES (07/21/2018 5:58 AM) SCL70 Ab <0.2 <1.0 [facility] MAIN LAB Comment: Interpretation: Negative NOTE NEW METHODOLOGY AND REFERENCE RANGE Specimen Blood Performing Organization Address [facility] Phone Number MAIN LAB [address] [place] [address] * ANTI SSA ANTI SSB AB (07/21/2018 5:58 AM) Anti-SSA <0.2Comment: Interpretation: <1.0 [facility] MAIN LAB Negative Anti-SSB 0.2Comment: Interpretation: <1.0 AI MAIN LAB Negative Specimen Blood Performing Organization Address [facility]/Zipcode Phone Number MAIN LAB [address] [place] [address] * RHEUMATOID FACTOR (RF) (07/21/2018 5:58 AM) Rheum Factor Screen <20 <24 IU/mL MAIN LAB Specimen Blood Performing Organization Address [facility] Phone Number MAIN LAB [address] [place] [address] * ANTI-DNA DOUBLE STRAND (07/21/2018 5:58 AM) DNA Double Strand AB <10 <10 [facility] MAIN LAB Specimen Blood Performing Organization Address [facility] [[email or web address]]copr Phone Number MAIN LAB [address] [place] [address] * ANTI-NUCLEAR ANTIBODY(HERNAN) (07/21/2018 5:58 AM) HERNAN Screen <80 <80 [facility] MAIN LAB Specimen Blood Performing Organization Address [facility] Phone Number MAIN LAB [address] [place] [address] * PERIPHERAL SMEAR (07/21/2018 5:58 AM) Peripheral Smear Microcytic, hypochromic red [facility] cells. Consider iron deficiency anemia, anemia of chronic disease, thalassemia, and sideroblastic anemia. MILD EOSINOPHILIA. PLATELETS APPEAR NORMAL IN NUMBER AND MORPHOLOGY. Pathologist Signature INTERPRETED BY CHONG ROYAL [facility] BLU [place] By the PATH SIGNATURE ABOVE, I attest that I have personally formulated the final interpretation expressed in this report and that the above diagnosis is based upon my examination of the slides and/or other material indicated in this report. Specimen Blood Performing Organization Address [facility] [[email or web address]]copr Phone Number MAIN LAB [address] [place] [address] * CBC AND DIFF (07/21/2018 5:58 AM) White Blood Cells 6.9 4.5 - 11.0 K/UL [facility] RBC 3.28 (L) 4.0 - 5.0 M/UL [facility] Hemoglobin 8.4 (L) 12.0 - 15.0 [...] City/State/Zipcode Phone Number [facility] MAIN LAB [address] [place] [address] * COMPREHENSIVE METABOLIC PANEL (07/21/2018 5:58 AM) [...] for questions. Specimen Blood Performing Organization Address City/[facility]/Zipcode Phone Number [facility] MAIN LAB [address] [place] [address] * POC GLUCOSE (07/20/2018 8:28 PM) Glucose, POC 323 (H) 70 - 100 MG/DL [facility] MAIN LAB Performing Organization Address City/[facility]/Zipcode Phone Number [facility] MAIN LAB [address] [place] [address] * POC GLUCOSE (07/20/2018 5:17 PM) Glucose, POC 133 (H) 70 - 100 MG/DL [facility] MAIN LAB Performing Organization Address [facility] [[email or web address] Phone Number [facility] MAIN LAB [address] [place] [address] * POC GLUCOSE (07/20/2018 11:59 AM) Glucose, POC 161 (H) 70 - 100 MG/DL [facility] MAIN LAB Performing Organization Address City/[facility] [[email or web address] Phone Number [facility] MAIN LAB [address] [place] [address] * POC GLUCOSE (07/20/2018 8:15 AM) Glucose, POC 464 (H) 70 - 100 MG/DL [facility] MAIN LAB Performing Organization Address [facility] [[email or web address]]code Phone Number [facility] MAIN LAB [address] [place] [address] * POC GLUCOSE (07/20/2018 6:40 AM) Glucose, POC 490 (H) 70 - 100 MG/DL [facility] MAIN LAB Performing Organization Address City/[facility] [[email or web address]]code Phone Number [facility] MAIN LAB [address] [place] [address] * COMPREHENSIVE METABOLIC PANEL (07/20/2018 5:30 AM) [...] City/State/Zipcode Phone Number [facility] MAIN LAB [address] [place] [address] * CBC (07/20/2018 5:30 AM) White Blood [...] MAIN LAB Specimen Blood Performing Organization Address City/[facility]/Zipcode Phone Number MAIN LAB [address] [place] [address] * PHOSPHORUS (07/20/2018 5:30 AM) Phosphorus 4.4 (H) 2.0 - 4.0 MG/DL MAIN LAB Specimen Blood Performing Organization Address City/[facility] [[email or web address]]code Phone Number MAIN LAB [address] [place] [address] * MAGNESIUM (07/20/2018 5:30 AM) Magnesium 2.1 1.6 - 2.6 mg/dL MAIN LAB Specimen Blood Performing Organization Address City/[facility] [[email or web address]]code Phone Number MAIN LAB [address] [place] [address] * POC GLUCOSE (07/19/2018 8:24 PM) Glucose, POC 372 (H) 70 - 100 MG/DL MAIN LAB Performing Organization Address [facility] [[email or web address]]code Phone Number MAIN LAB [address] [place] [address] * POC GLUCOSE (07/19/2018 5:08 PM) Glucose, POC 284 (H) 70 - 100 MG/DL MAIN LAB Performing Organization Address [facility] Phone Number MAIN LAB [address] [place] [address] * IMMUNOGLOBULIN E (IGE) (07/19/2018 5:00 PM) IgE 24 <165 IU/ML MAIN LAB Specimen Blood Performing Organization Address [facility] [[email or web address]]code Phone Number MAIN LAB [address] [place] [address] * FOLATE, SERUM (07/19/2018 5:00 PM) Serum Folate 15.7Comment: NOTE NEW >3.9 NG/ML MAIN LAB REFERENCE RANGES Specimen Blood Performing Organization Address City/[facility] [[email or web address]]code Phone Number MAIN LAB [address] [place] [address] * VITAMIN B12 (07/19/2018 5:00 PM) Vitamin B12 751 180 - 914 PG/ML MAIN LAB Specimen Blood Performing Organization Address City/[facility]/Zipcode Phone Number [facility] MAIN LAB [address] [place] [address] * CORTISOL-AM (07/19/2018 5:00 PM) Cortisol-AM 6.3 (L) 6.7 - 22.6 MCG/DL [facility] MAIN LAB Specimen Blood Performing Organization Address [facility] Phone Number [facility] MAIN LAB [address] [place] [address] * IRON + BINDING CAPACITY + %SAT+ FERRITIN (07/19/2018 5:00 PM) Iron 24 (L) 50 - 160 MCG/DL [facility] MAIN LAB Iron Binding-TIBC 383 (H) 270 - 380 MCG/DL [facility] MAIN LAB % Saturation 6 (L) 28 - 42 % [facility] MAIN LAB Ferritin 6 (L) 10 - 200 NG/ML [facility] MAIN LAB Specimen Blood Performing Organization Address [facility] Phone Number MAIN LAB [address] [place] [address] * URINALYSIS, MICROSCOPIC (07/19/2018 12:58 PM) WBCs,UA 0-2 0 - 2 /HPF [facility] MAIN LAB RBCs,UA NONE 0 - 3 /HPF [facility] MAIN LAB Squamous Epithelial Cells 0-2 0 - 5 [facility] MAIN LAB Specimen Urine - Urine Performing Organization Address [facility] Phone Number [facility] MAIN LAB [address] [place] [address] * URINALYSIS DIPSTICK (07/19/2018 12:58 PM) Color,UA YELLOW [facility] MAIN LAB Turbidity,UA CLEAR CLEAR-CLEAR [facility] MAIN LAB Specific [place]-Urine 1.016 1.003 - 1.035 [facility] MAIN LAB [...] Specimen Urine - Urine Performing Organization Address [facility]/Zipcode Phone Number MAIN LAB [address] [place] [address] * POC GLUCOSE (07/19/2018 10:14 AM) Glucose, POC 117 (H) 70 - 100 MG/DL [facility] MAIN LAB Performing Organization Address [facility] [[email or web address]]code Phone Number MAIN LAB [address] [place] [address] * POC GLUCOSE (07/19/2018 9:18 AM) Glucose, POC 61 (L) 70 - 100 MG/DL [facility] MAIN LAB Performing Organization Address City/[facility] [[email or web address]]code Phone Number MAIN LAB [address] [place] [address] * C REACTIVE PROTEIN (CRP) (07/19/2018 6:20 AM) C-Reactive Protein 0.33 <1.0 MG/DL MAIN LAB Specimen Blood Performing Organization Address [facility] [[email or web address]]code Phone Number MAIN LAB [address] [place] [address] * SED RATE (07/19/2018 6:20 AM) Sed Rate -ESR 5 0 - 30 MM/HR MAIN LAB Specimen Blood Performing Organization Address [facility] [[email or web address]]code Phone Number MAIN LAB [address] [place] [address] * AMYLASE (07/19/2018 6:20 AM) Amylase 43 24 - 100 U/L MAIN LAB Specimen Blood Performing Organization Address [facility] [[email or web address]]code Phone Number MAIN LAB [address] [place] [address] * CORTISOL,RANDOM (07/19/2018 6:20 AM) Cortisol, Random 2.8 (L) 5.0 - 20.0 MCG/DL MAIN LAB Specimen Blood Performing Organization Address [facility] [[email or web address]]code Phone Number MAIN LAB [address] [place] [address] * TSH WITH FREE T4 REFLEX (07/19/2018 6:20 AM) TSH 4.350 0.35 - 5.00 MCU/ML MAIN LAB Specimen Blood Performing Organization Address [facility]/Zipcode Phone Number MAIN LAB [address] [place] [address] * HEMOGLOBIN A1C (07/19/2018 6:20 AM) Hemoglobin A1C 11.4 (H) 4.0 - 6.0 % [facility] MAIN LAB Comment: The ADA recommends that most patients with type 1 and type 2 diabetes maintain an A1c level <7%. Specimen Blood Performing Organization Address [facility] [[email or web address]]copr Phone Number [facility] MAIN LAB [address] [place] [address] * URINALYSIS, MICROSCOPIC (07/19/2018 4:10 AM) WBCs,UA 0-2 0 - 2 /HPF [facility] MAIN LAB RBCs,UA NONE 0 - 3 /HPF [facility] MAIN LAB MucousUA TRACE [facility] MAIN LAB Squamous Epithelial Cells 0-2 0 - 5 [facility] MAIN LAB Specimen Urine - Urine Performing Organization Address [facility] Phone Number [facility] MAIN LAB [address] [place] [address] * URINALYSIS DIPSTICK (07/19/2018 4:10 AM) Color,UA YELLOW [facility] MAIN LAB Turbidity,UA CLEAR CLEAR-CLEAR [facility] MAIN LAB Specific [place]-Urine 1.030 1.003 - 1.035 [facility] MAIN LAB [...] Specimen Urine - Urine Performing Organization Address [facility] [[email or web address]]copr Phone Number [facility] MAIN LAB [address] [place] [address] * CRITICAL CARE (07/19/2018 4:00 AM) Narrative [...] midlevel. * POC TROPONIN (07/19/2018 2:52 AM) Grvgmljb-R-RMY 0.01 0.00 - 0.05 NG/ML MAIN LAB Performing Organization Address City/State/Zipcode Phone Number MAIN LAB [address] [place] [address] * CTA CHEST WO/W CONTRAST+POST IMPRESSION (07/19/2018 [...] axillary lymphadenopathy, slightly greater on the left. Dredge Worker left axillary lymph node measures 2.5 x [...] bilateral external iliac and inguinal lymph nodes. Dredge Worker right external iliac lymph node measures 2.4 [...] axillary lymphadenopathy, slightly greater on the left. Dredge Worker left axillary lymph node measures 2.5 x [...] bilateral external iliac and inguinal lymph nodes. Dredge Worker right external iliac lymph node measures 2.4 [...] axillary lymphadenopathy, slightly greater on the left. Dredge Worker left axillary lymph node measures 2.5 x [...] bilateral external iliac and inguinal lymph nodes. Dredge Worker right external iliac lymph node measures 2.4 [...] axillary lymphadenopathy, slightly greater on the left. Dredge Worker left axillary lymph node measures 2.5 x [...] bilateral external iliac and inguinal lymph nodes. Dredge Worker right external iliac lymph node measures 2.4 [...] on 07/19/2018 2:19 AM. Performing Organization Address City/[facility]/Zipcode Phone Number RAD RESULTS * POC CREATININE, RAD (07/19/2018 2:03 AM) Creatinine, POC 1.2 (H) 0.4 - 1.00 MG/DL [facility] MAIN LAB Performing Organization Address [facility] [[email or web address]]copr Phone Number MAIN LAB [address] [place] [address] * ECG-SCAN (07/19/2018 2:00 AM) Narrative Performed At Ordered by an unspecified provider. * POC LACTATE (07/19/2018 2:00 AM) LACTIC ACID POC 1.4 0.5 - 2.0 MMOL/L [facility] MAIN LAB Performing Organization Address [facility] Phone Number MAIN LAB [address] [place] [address] * PHOSPHORUS (07/19/2018 1:40 AM) Phosphorus 4.2 (H) 2.0 - 4.0 MG/DL [facility] MAIN LAB Specimen Blood Performing Organization Address [facility] [[email or web address]]copr Phone Number MAIN LAB [address] [place] [address] * MAGNESIUM (07/19/2018 1:40 AM) Magnesium 2.3 1.6 - 2.6 mg/dL [facility] MAIN LAB Specimen Blood Performing Organization Address [facility] [[email or web address]]copr Phone Number MAIN LAB [address] [place] [address] * LIPASE (07/19/2018 1:40 AM) Lipase 27 11 - 82 U/L [facility] MAIN LAB Specimen Blood Performing Organization Address [facility] [[email or web address]]code Phone Number MAIN LAB [address] [place] [address] * COMPREHENSIVE METABOLIC PANEL (07/19/2018 1:40 AM) [...] Organization Address City/State/Zipcode Phone Number MAIN LAB [address] [place] [address] * CBC AND DIFF (07/19/2018 1:40 AM) [...] MAIN LAB Specimen Blood Performing Organization Address City/[facility] [[email or web address]]code Phone Number [facility] MAIN LAB [address] [place] [address] * CULTURE-BLOOD W/SENSITIVITY (07/19/2018 1:40 AM) Battery Name BLOOD CULTURE [facility] MAIN LAB Specimen Description BLOOD [facility] MAIN LAB LEFT UA Special Requests NONE [facility] MAIN LAB Culture NO GROWTH 5 DAYS [facility] MAIN LAB Report Status FINAL [facility] MAIN LAB 07/25/2018 Specimen Blood Performing Organization Address [facility] [[email or web address]]code Phone Number [facility] MAIN LAB [address] [place] [address] * CULTURE-BLOOD W/SENSITIVITY (07/19/2018 1:30 AM) Battery Name BLOOD CULTURE [facility] MAIN LAB Specimen Description BLOOD MAIN LAB LEFT PORT Special Requests NONE MAIN LAB Culture NO GROWTH 5 DAYS [facility] MAIN LAB Report Status FINAL [facility] MAIN LAB 07/25/2018 Specimen Blood Performing Organization Address [facility] [[email or web address]]code Phone Number [facility] MAIN LAB [address] [place] [address] in this encounter Visit Diagnoses Diagnosis RADHA [...]
--- OUTSIDE RECORDS SUMMARY | 2018-09-17 02:33 | XMS REPORT | Encounter Summary ---
Author Author [facility] Organization [facility] Address Unknown Phone Unavailable Care Team Providers Care Construction Assistant Name Role Phone Charles Chau MD Unavailable Migue Patton MD PCP Sandra Wayne MD 3 Sandra Wayne MD PCP Sandra Wayne MD 100 Encounter Details Date Type Department Care Team Description 07/19/2018 Procedure Pass CARDIAC AND FAMILY MEDICINE PROGRESSIVE CARE [address] [place] [address] Social History Tobacco Use Types Packs/Day Years [...]
--- OUTSIDE RECORDS SUMMARY | 2018-09-17 02:33 | XMS REPORT | Encounter Summary ---
Author Author [facility] Organization [facility] Address Unknown Phone Unavailable Care Team Providers Care Budget Examiner Name Role Phone Charles Chau MD Unavailable Migue Patton MD PCP Sandra Wayne MD 3 Sandra Wayne MD PCP Sandra Wayne MD 100 Encounter Details Date Type Department Care Team Description 07/19/2018 Procedure Pass CARDIAC AND FAMILY MEDICINE PROGRESSIVE CARE [address] [place] [address] Social History Tobacco Use Types Packs/Day Years [...]
--- OUTSIDE RECORDS SUMMARY | 2018-09-17 02:34 | XMS REPORT | Encounter Summary ---
Author Author [facility] Organization [facility] Address Unknown Phone Unavailable Care Team Providers Care Surgical Assistant Name Role Phone Charles Chau MD Unavailable Migue Patton MD PCP Reason for Referral * Consult, Test & Treat (Routine) Status Reason Specialty Diagnoses / Referred By Referred To Procedures Contact Contact No Auth Needed Specialty Endocrinology and Diagnoses [facility] Diabetes Services Other dysphagia LUIS [facility] Required / Endocrinology, Other [address] [facility] [place], [place] cyclical [phone] vomiting with Phone: Phone: nausea [phone] Gastropathy Fax: Type 1 diabetes [phone] mellitus with complication (HCC) Dysthymia Anxiety Migraine [...] Other [address] [facility] [place], [place] [address] cyclical [address] [place], [place] vomiting with Phone: [phone] nausea [phone] Phone: Gastropathy Type 1 diabetes [phone] mellitus with complication (HCC) Dysthymia Anxiety Migraine [...] [facility] on Required Other [address] Intractable [place], [place] cyclical [phone] vomiting with Phone: Phone: nausea [phone] Gastropathy Fax: Type 1 diabetes [phone] mellitus with complication (HCC) Dysthymia Anxiety Migraine with aura and with status migrainosus, not intractable Epigastric pain Abdominal pain, unspecified abdominal location Scheduling Instructions Contact Phone Numbers for each area if questions arise: General: [phone] Epilepsy: Multiple Sclerosis: Parkinson's: [facility]: Stroke & Neuromuscular: [place]: 1322 Please call pt and schedule. Thanks! * Consult, Test & Treat (Routine) Status Reason Specialty Diagnoses / Referred By Referred To Procedures Contact Contact New Request Specialty Psychiatry Diagnoses [facility] Other dysphagia LUIS [facility] Required Other [address] Intractable [place], [place], [place] cyclical [phone] vomiting with Phone: Phone: nausea [phone] Gastropathy Fax: Type 1 diabetes [phone] mellitus with complication (HCC) Dysthymia Anxiety Migraine [...] Level 2B abdominal pain [place] [address] MAKSIM AVILEZ [address] [place], [place] rocedures Phone: [phone] Consult [phone] Phone: Encounter Details Date Type Department Care Team Description 07/18/2018 Office Visit [facility] Balbina Matam[place]os, Abdominal pain, Physicians E MERCHANT-DIGITAL FORENSICS EXAMINER unspecified abdominal Ortho and Medical [address] location (Primary Dx); [address] [place] [address] Other dysphagia; [address] [phone] Other constipation; [place], [place] Intractable cyclical [phone] vomiting with nausea; [phone] Gastropathy; Type 1 diabetes mellitus with complication [...] of MiraLAX per day to achieve 1-2 [place] #4 bowel movements per day Start taking [...] 2 weeks to complete test. Please call [phone] if you have any questions or concerns. General Instructions: To have a medication refilled: Please use the [employer] Refill request or contact your pharmacy directly to request medication refills. Please allow 72 hours. Medical Office Building Lab is on the 1st floor. It is open from 7 am-6pm Sunday-Sunday and 6:30am-7pm on Mondays, and 7 am - Noon on Saturdays [facility] Lab is located on the 2nd floor and is open 8 am-5 pm Sunday-Sunday [facility] lab is located next to the check out desk and is open from 8 AM to 4:45 PM Sunday through Sunday. Radiology is on the 2nd floor of the Medical Office Building and the 2nd Floor of [facility]. Radiology Scheduling can be reached at To Schedule office visits: Call [phone]. For procedure scheduling questions at the Main [facility] or [place] please call ; for a procedure at [facility] please call [phone]. To receive appointment reminders on your cell phone: Make sure we have your cell phone number, and Text [facility] to [phone]. Support for many chronic illnesses is available through [employer]: [address] [email or web address] or [phone]. For urgent questions on nights, weekends or holidays, call the Soaker Soda Worker at [phone], and ask for the doctor residential concierge for Gastroenterology.Call 911 for any emergencies. in this encounter Progress Notes * Shiloh BalbinaALLISON-DIGITAL FORENSICS EXAMINER - 07/18/2018 3:00 PM CDT Formatting of [...] vomiting. She reports that she has between Pendleton #1 and 4 bowel movements approximately every [...] pylori and celiac. Outside records reviewed 05/06/2018 [facility] gastroenterology progress note: recurrent upper abdominal pain associated with nausea and vomiting requiring 6 hospitalizations over the past year with CT scans of abdomen/pelvis as well as EGD/colonoscopy; all of which are unremarkable. 04/30/2018 small bowel follow-through at [place]: Delayed contrast transit to the large bowel with unremarkable small bowel; constipation was also observed. 04/24/2018 [facility] gastroenterology progress note: Intermittent nausea, vomiting, and upper abdominal pain; she is asymptomatic between episodes. Will obtain VIP, serotonin, and gastrin levels. 04/03/2018 EGD at [facility]: Mild diffuse active gastritis with a small [...] was encouraged. 12/21/15 gastric emptying study at [facility]: This was a 2 hour exam and [...] suicidal plans. Tearful Assessment and Plan: Chelsea Catsillo is a 58 y.o. female who will [...] future we can obtain more of an [employer] history Likely above-mentioned dysmotility drugs are contributing [...] and CT abdomen and pelvis at [facility] for cyclic vomiting we will treat with the following... coenzyme Q10 100mg BID L-carnitine 2g BID One B complex vitamin Get at least 8-10 hours of sleep per night -For constipation we will treat with the following Start taking 1 capful of MiraLAX per day to achieve 1-2 [place] #4 bowel movements per day Start taking [...] vs benefits of medications. Additionally, I spent [phone] (20 min) and 1730 -1823 (53 min) totaling 73 minutes reviewing outside records, coordinating, and documenting care. Thank you for allowing me to participate in the care of this patient. Please call GI clinic with any questions/concerns. Balbina Matamoros, E MERCHANT-DIGITAL FORENSICS EXAMINER Addendum 08/09/2018: Outside records reviewed 06/12/18 [facility]: Minimal constipation without obstruction, ileus, or free air. 05/17/18 [facility]: Nonspecific nonobstructive bowel gas pattern. 04/20/18 HPI at ER: Symptoms started with stomach ache and progressed into migraine, follows with neurologist at [place] for Botox injections. 09/04/2017 admitted to hospital [...] after fall on 08/18/2015 and presented to [facility] emergency room where CT of head [...]
[2018-09-17] MEDS ORDERED: PROMETHAZINE INJ 25 MG/ML (PHENERGAN) AMP IM ONE (03:45)
[2018-09-17] MEDS ORDERED: KETOROLAC 30 MG/ML VIAL IM ONE (03:45)
--- NOTE | 2018-09-17 03:50 | ED GI ---
General Chief Complaint: Abdominal/GI Problems Stated Complaint: VOMITING,ABD PAIN Source of Information: Patient, Spouse Exam Limitations: No Limitations History of Present Illness Date Seen by Provider: Sep 17, 2018 Time Seen by Provider: 03:15 Initial Comments Patient presents to ER by private conveyance with chief complaint that she is having abdominal pain all over and nausea without vomiting. This is her same chronic complaint for many years she's had multiple workups by GI doctors at [facility] as well as her private doctor. Most recently she been referred to a GI doctor at and he ordered a swallow study this morning so they drove up to get this test done but decided to stop in the ER at before having her swallow study done. She received 2 doses of morphine, hydrocodone, Thorazine, Zofran and still does not feel that her symptoms were greatly improved. Her nausea was better however she said. She then did not get to do her swallow study because of all the medications she had taken. She also has a colonoscopy to be scheduled with the same GI doctor. She has had to swallow studies done in the past one by her primary care and one by the GI doctor and [facility] both of which were unremarkable. While in the ER she also received a CT abdomen pelvis with contrast and extensive laboratory examination all of which was relatively unremarkable. After they got home from she began to have the same pain and nausea and decided to come the ER tonight. She is urinating regularly and states she had a bowel movement yesterday which was more on the loose side. She is not taking any laxatives. She says her last dose of hydrocodone was from approximately 16 hours ago. Allergies and Home Medications Allergies Coded Allergies: Sulfa (Sulfonamide Antibiotics) (Verified Allergy, Unknown, 11/26/15) Home Medications Albuterol Sulfate 18 Gm Hfa.aer.ad, 2 PUFF IH Q6H PRN for SHORTNESS OF BREATH, ( Reported) Alprazolam 1 Mg Tablet, 1 MG PO DAILY PRN for ANXIETY, (Reported) Atorvastatin Calcium 40 Mg Tablet, 40 MG PO HS, (Reported) Carbamazepine 200 Mg Tab.er.12h, 200 MG PO BID, (Reported) Cefuroxime Axetil 250 Mg Tablet, 250 MG PO BID Prescribed by: BRENDA PARDO on 08/05/18 1080 Cetirizine HCl 10 Mg Tablet, 10 MG PO DAILY, (Reported) Cholecalciferol (Vitamin D3) 5,000 Unit Capsule, 5,000 UNIT PO DAILY, (Reported) Clobetasol Propionate 15 Gm Cream..g., TOP UD PRN for SKIN, (Reported) Dextroamphetamine/Amphetamine 20 Mg Tablet, 20 MG PO BID, (Reported) Diclofenac Sodium 100 Gm Gel..gram., TOP UD PRN for JOINT PAIN, (Reported) Duloxetine HCl 60 Mg Capsule.dr, 60 MG PO BID, (Reported) Estrogens Conjugated 30 Gm Cr, UD, (Reported) Estrogens, Conjugated 0.625 Mg Tablet, 0.625 MG PO DAILY, (Reported) Fesoterodine Fumarate 4 Mg Tab.sr.24h, 4 MG PO DAILY, (Reported) Fludrocortisone Acetate 0.1 Mg Tab, 0.1 MG PO BID, (Reported) Fluticasone Propionate 16 Gm [place].susp, 1 SPRAY NS BID PRN for ALLERGIES, ( Reported) Glucagon,Human Recombinant 1 Mg/Kit Soln, UD PRN for BLOOD SUGAR, (Reported) Hydrocodone/Acetaminophen 1 Each Tablet, 1 TAB PO QID PRN for PAIN-MODERATE, ( Reported) Hydroxychloroquine Sulfate 200 Mg Tablet, 200 MG PO DAILY, (Reported) Insulin Degludec 100 Unit/1 Ml Insuln.pen, 17 UNITS SQ HS, (Reported) Insulin Lispro 100 Unit/1 Ml Insuln.pen, 4 UNITS SQ 0800,1200, (Reported) Insulin Lispro 100 Unit/1 Ml Insuln.pen, 10 UNIT SQ 1800, (Reported) Levothyroxine Sodium 175 Mcg Tablet, 175 MCG PO DAILY, (Reported) Lidocaine/Prilocaine 30 Gm Cream..g., TOP UD PRN for SKIN, (Reported) Lorazepam 1 Mg Tablet, 1 MG PO BID, (Reported) Montelukast Sodium 10 Mg Tablet, 10 MG PO DAILY, (Reported) Multivitamin with Minerals 1 Each Tablet, 1 TAB PO DAILY, (Reported) Nitrofurantoin Monohyd/M-Cryst 100 Mg Capsule, 1 TAB PO BID Prescribed by: CARA LEWIS on 05/17/182108 Nortriptyline HCl 25 Mg Capsule, 25 MG PO HS, (Reported) Nystatin 60 Gm Powder, TOP UD PRN for RASH, (Reported) Ondansetron 4 Mg Tab.rapdis, 8 MG PO Q6H PRN for NAUSEA/VOMITING Prescribed by: CARA LEWIS on 05/17/182108 Ondansetron 4 Mg Tab.rapdis, 4 MG PO Q6H PRN for NAUSEA/VOMITING Prescribed by: THOMAS HERNANDEZ on 08/20/18411 Pantoprazole Sodium 40 Mg Tablet.dr, 40 MG PO DAILY, (Reported) Pentosan Polysulfate Sodium 100 Mg Capsule, 100 MG PO TID, (Reported) UNKNOWN LAST FILL DATE Potassium Chloride 10 Meq Capsule.er, 10 MEQ PO DAILY, (Reported) Pregabalin 150 Mg Capsule, 150 MG PO BID, (Reported) Rizatriptan Benzoate 10 Mg Tablet, 10 MG PO UD PRN for MIGRAINE, (Reported) Sucralfate 1 Gm/10 Ml Oral.susp, 1 GM PO AC, (Reported) Tizanidine HCl 4 Mg Tablet, 4 MG PO TID PRN for MUSCLE SPASMS, (Reported) Zolpidem Tartrate 10 Mg Tablet, 10 MG PO HS, (Reported) [Biotex] , 200 UNITS PO UD PRN for MIGRAINE, (Reported) Patient Home Medication List Home Medication List Reviewed: Yes Review of Systems Review of Systems Constitutional: No chills, No diaphoresis, No fever, No malaise EENTM: No Blurred Vision, No Double Vision Respiratory: Denies Cough, Denies Shortness of Air Cardiovascular: Denies Chest Pain, Denies Edema Gastrointestinal: Denies Constipated, Denies Diarrhea Genitourinary: Denies Burning, Denies Discharge Musculoskeletal: No back pain, No joint pain Past [id number]-Wjgnvo-Zvagjs Hx Patient Social History Alcohol Use: Denies Use Recreational Drug Use: No Smoking Status: Never a Smoker 2nd Hand Smoke Exposure: No Recent Foreign Travel: No Contact w/Someone Who Travel: No Recent Hopitalizations: No Immunizations Up To Date Tetanus Booster (TDap): More than 5yrs Date of Pneumonia Vaccine: Aug 19, 2014 Date of Influenza Vaccine: Aug 22, 2017 Seasonal Allergies Seasonal Allergies: No Past Medical History Surgeries: Yes (PORT,CARPAL TUNNEL, R.HIP, BILAT SHOULDER SURGERY, port placement) Eye Surgery, Gallbladder, Hysterectomy, Orthopedic, Vascular Surgery Respiratory: Yes Asthma Currently Using CPAP: No Currently Using BIPAP: No Cardiac: Yes High Cholesterol, Hypertension Neurological: Yes Concussion, Headaches /Migraines, Neuropathy, Seizure Disorder, Traumatic Brain Injury Reproductive Disorders: No Female Reproductive Disorders: Denies 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 CHRONIC ABDOMINAL PAIN. ) Ulcer Musculoskeletal: Yes Arthritis Endocrine: Yes (ADRENAL DISEASE) Diabetes, Insulin dep, Hypothyroidsim HEENT: Yes Chronic Ear Infection Loss of Vision: Denies Hearing Impairment: Denies Cancer: No Psychosocial: Yes Anxiety, Depression Integumentary: No Blood Disorders: No Adverse Reaction/Blood Tranf: No Family Medical History Alcoholism 09 BROTHER Cancer 03 MOTHER (PANCREATIC CA) Myocardial infarction 03 MOTHER Cancer Physical Exam Vital Signs Capillary Refill : Height/Weight/BMI Height: 5'5.00" Weight: 140lbs. 3.2oz. 63.971930yx; 24.2 BMI Method:Stated General Appearance: WD/WN, no apparent distress HEENT: PERRL/EOMI, pharynx normal (moist oral mucosa) Neck: non-tender, full range of motion Respiratory: no respiratory distress, no accessory muscle use Cardiovascular: normal peripheral pulses, regular rate, rhythm Gastrointestinal: normal bowel sounds, non tender, soft Neurologic/Psychiatric: alert, normal mood/affect, oriented x 3 Skin: normal color, warm/dry Progress/Results/Core Measures Results/Orders My Orders Orders - CARA LEWIS Ketorolac Injection (Toradol Injection) (09/17/18 03:45) Promethazine Injection (Phenergan Injec (09/17/18 03:45) Progress Progress Note : Time: 03:49 Progress Note Patient has received an extensive workup this morning. She does not appear to be dehydrated. Regarding give her some Phenergan and Toradol since she thinks the hydrocodone and Zofran did not work very well earlier and send her home to get some sleep. Departure Impression Primary Impression: Abdominal pain Qualified Codes: R10.84 - Generalized abdominal pain Additional Impression: Nausea & vomiting Qualified Codes: R11.2 - Nausea with vomiting, unspecified Disposition: 01 HOME, SELF-CARE Condition: Stable Departure-Patient Inst. Decision time for Depature: 03:51 Referrals: RUBIO MEZA DO (PCP/Family) Primary Care Physician Patient Instructions: Acute Abdomen (Belly Pain), Adult (DC) Add. Discharge Instructions: Go home and get some sleep. Follow-up with primary care. Schedule your colonoscopy and gastric emptying study with the hotel baggage handler in the morning. All discharge instructions reviewed with patient and/or family. Voiced understanding. CARA LEWIS Sep 17, 2018 03:50
[2018-09-17 04:18] VITALS: BP 146/96
== END 2018-09-17 04:30 | disposition home or self-care (01) ==
LOC: EDUNIT# 02:22 → ER 02:24
DX: R10.84 Generalized abdominal pain (principal); R11.2 Nausea with vomiting, unspecified; J45.909 Unspecified asthma, uncomplicated; E78.00 Pure hypercholesterolemia, unspecified; I10 Essential (primary) hypertension; E11.9 Type 2 diabetes mellitus without complications; E03.9 Hypothyroidism, unspecified; F41.9 Anxiety disorder, unspecified; F32.9 Major depressive disorder, single episode, unspecified; G43.909 Migraine, unspecified, not intractable, without status migrainosus; G40.909 Epilepsy, unspecified, not intractable, without status epilepticus; Z80.0 Family history of malignant neoplasm of digestive organs; Z82.49 Family history of ischemic heart disease and other diseases of the circulatory system; Z87.828 Personal history of other (healed) physical injury and trauma; Z87.440 Personal history of urinary (tract) infections; Z87.19 Personal history of other diseases of the digestive system; Z88.2 Allergy status to sulfonamides; Z79.4 Long term (current) use of insulin; Z79.52 Long term (current) use of systemic steroids; Z79.51 Long term (current) use of inhaled steroids; Z90.710 Acquired absence of both cervix and uterus
CPT/HCPCS: 96372; 99284

== ENCOUNTER 2018-12-27 17:42 | Emergency (ER) | payer MEDICARE, MEDICAID ==
[~2018-12-27] VITALS: Ht 165.1 cm; Wt 62.6 kg
--- OUTSIDE RECORDS SUMMARY | 2018-12-27 17:50 | XMS REPORT | Clinical Summary ---
Author Author [facility] Organization [facility] Address Unknown Phone Unavailable Care Team Providers Care Sheet Folder Name Role Phone Charles Chau MD Unavailable Migue Patton MD PCP Aleah Broussard 20 Unavailable Source Comments Some departments are not documenting in the electronic medical record. If you do not see the information that you expected, contact Release of Information in the Health Information Management department at [phone] for further assistance in locating additional records.[facility] Allergies Comments Active Allergy Reactions Severity Noted Date Sulfa (Sulfonamide HIVES Medium 07/18/2018 Antibiotics) Medications End Date Status Medication Sig Dispensed Refills Start Date Active pregabalin (LYRICA) 150 Take 150 mg 0 mg capsule by mouth twice daily. Active ALPRAZolam (XANAX) 1 mg Take 1 mg by 0 tablet mouth twice daily as needed for Anxiety. Active zolpidem (AMBIEN) 10 mg Take 10 mg by 0 tablet mouth at bedtime as needed for Sleep. Active tiZANidine (ZANAFLEX) 4 Take 4 mg by 0 mg tablet mouth at bedtime daily. Active fludrocortisone Take 0.1 mg 0 (FLORINEF) 0.1 mg tablet by mouth twice daily. Active atorvastatin (LIPITOR) 40 Take 40 mg by 0 mg tablet mouth daily. Active levothyroxine (SYNTHROID) Take 175 mcg 0 175 mcg tablet by mouth daily 30 minutes before breakfast. Active potassium chloride SR Take 10 mEq 0 (K-DUR) 10 mEq tablet by mouth daily. Take with a meal and a full glass of water. Active montelukast (SINGULAIR) Take 10 mg by 0 10 mg tablet mouth at bedtime daily. Active pantoprazole DR Take 40 mg by 0 (PROTONIX) 40 mg tablet mouth daily. Active fesoterodine ER(+) Take 4 mg by 0 (TOVIAZ) 4 mg tablet mouth daily. Active rizatriptan (MAXALT) 10 Take 10 mg by 0 mg tablet mouth once as needed for Headache. May repeat in 2 hours if needed Active cetirizine (ZYRTEC) 10 mg Take 10 mg by 0 tablet mouth every morning. Active cholecalciferol(+) Take 5,000 0 (VITAMIN D-3) 5,000 unit Units by tablet mouth daily. Active fluticasone (FLONASE) 50 Apply 1 spray 0 mcg/actuation nasal spray to each nostril as directed daily as needed. Shake bottle gently before using. Active glucagon,human Inject 1 0 recombinant (GLUCAGEN Units to DIAGNOSTIC KIT IJ) area(s) as directed as Needed. Active carBAMazepine (TEGRETOL) Take 200 mg 0 200 mg tablet by mouth twice daily. Active vitamins, B complex tab Take one 30 tablet 1 tablet by 8 mouth daily. Active ferrous gluconate Take one 30 tablet 1 (FERGON) 240 mg (27 mg tablet by 8 iron) tablet mouth daily. Active coenzyme Q10(+) 100 mg Take one 60 capsule cap capsule by 8 mouth twice daily. Active levocarnitine(+) Take four 240 tablet 1 (LEVOCARNITINE(+)) 500 mg tablets by 8 tablet mouth twice daily. Active sucralfate(+) (CARAFATE) Take 10 mL by 414 mL 0 100 mg/mL oral suspension mouth before 8 meals and at bedtime. Active acetaminophen/lidocaine/a Take 30 mL by 1 Bottle ntacid DS(#) (GI mouth four 8 COCKTAIL) 1:1:3 times daily as needed. Active pyridoxine (VITAMIN B-6) Take one 0 50 mg tablet tablet by 8 mouth daily. Active vitamins, multiple tablet Take 1 tablet 0 by mouth daily. Active morphine IR (MS-IR) 15 mg Take 15 mg by 0 tablet mouth every 6 hours as needed for Pain Active ondansetron (ZOFRAN) 4 mg Take 4 mg by 0 tablet mouth every 8 hours as needed for Nausea or Vomiting. Active onabotulinumtoxinA (BOTOX Inject to 0 IJ) area(s) as directed. Every 3 months for headaches. Active insulin degludec (TRESEBA Inject 14 15 mL 3 SOLOSTAR) 100 unit/mL (3 Units under 9 mL) injection pen the skin at bedtime daily. Active duloxetine DR (CYMBALTA) Take one 60 capsule 1 30 mg capsule capsule by 9 mouth twice daily. Active dicyclomine (BENTYL) 10 Take one 360 capsule 3 mg capsule capsule by 9 mouth before meals and at bedtime. Active scopolamine Apply one 24 patch (TRANSDERM-SCOP) 1.5 mg 3 patch to top 9 day patch of skin as directed every 72 hours. Active acetaminophen (TYLENOL) Take two 0 325 mg tablet tablets by 9 mouth every 6 hours. Active insulin aspart U-100 Inject four 15 mL 3 (NOVOLOG FLEXPEN) 100 Units under 9 unit/mL injection PEN the skin three times daily after meals. Active Problems Problem Noted Date Migraine headache 11/15/2018 Anxiety and depression 10/13/2018 Seizure disorder 10/13/2018 Tibia/fibula fracture 10/12/2018 Diarrhea 10/09/2018 Hypotension 10/09/2018 CLL (chronic lymphocytic leukemia) 10/02/2018 Cancer Staging: Clinical stage from 10/02/2018: Modified Diallo Stage I (Modified Diallo risk: Intermediate, Binet: Stage B, Lymphocytosis: Present, Adenopathy: Present, Organomegaly: Absent, Anemia: Absent, Thrombocytopenia: Absent) - Signed by Lyn Hammonds MBBS on 10/02/2018 Abdominal pain 09/18/2018 Healthcare maintenance 08/19/2018 Last Assessment & Plan: [...] counseled on regular eye exams. Follows w [facility], saw them last in 2017 Orthostatic hypotension 08/19/2018 Last Assessment & Plan: [...] this medication from her PCP -follows with [facility] -obtain outside records -high-dose flu [...] with nausea 07/18/2018 Gastritis 07/18/2018 Type 1 diabetes, uncontrolled, with neuropathy 07/18/2018 Last Assessment & Plan: -current regimen [...] anxiety, and pain -managed by PCP in [place], [place] -discussed with patient that she would need to establish with psychiatry (referral pending, was ordered in the hospital) due to need for multiple medications with uncontrolled symptoms -obtain outside records Migraine with aura and with status migrainosus, not intractable 07/18/2018 Epigastric pain 07/18/2018 Resolved Problems Problem Noted Date Resolved Date DKA (diabetic ketoacidoses) 11/15/2018 11/17/2018 Encounters Care Team Description Date Type Specialty Paul Manley MD 12/13/2018 Hospital Radiology Encounter Paul Manley MD Gait instability (Primary Dx); Transient weakness of left lower extremity; Weakness of left lower extremity 12/13/2018 Office Visit Orthopedic Surgery Paul Manley MD Post-operative state (Primary Dx) 12/12/2018 Orders Only Orthopedic Surgery Gunnar Kirk MD Care Coordination 11/25/2018 Telephone Gastroenterology Gunnar Kirk MD Delayed gastric emptying (Primary Dx); Nausea; Vomiting, intractability of vomiting not specified, presence of nausea not specified, unspecified vomiting type 11/25/2018 Prep for Case Gastroenterology Gunnar Kirk MD Abdominal pain, unspecified abdominal location (Primary Dx); Delayed gastric emptying; Gastroparesis diabeticorum (HCC) 11/22/2018 Office Visit Gastroenterology Aleah Wheatley MD Tripathi, Alok, MD Zhidovetskiy, Dmitriy, DO Amos, Luke, MD Migraine headache 11/15/2018 Hospital - Encounter 11/20/2018 Paul Manley MD Weakness of left lower extremity (Primary Dx); Gait instability 10/30/2018 Office Visit Orthopedic Surgery Paul Manley MD 10/30/2018 Hospital Radiology Encounter Paul Manley MD Left ankle pain, unspecified chronicity (Primary Dx) 10/28/2018 Orders Only Orthopedic Surgery Yohan Romano MD 10/14/2018 Anesthesia Event Paul Manley MD OPEN TREATMENT TIBIAL SHAFT FRACTURE IM NAIL 10/14/2018 Surgery Naldo Riley MD Poddutoori, Padma, MD Amos, Luke, MD Tibia/fibula fracture 10/12/2018 [facility] - Encounter 10/18/2018 Yamil Escalante MD Reda, Eyad, MD Reddy, Devara R, MD CLL (chronic lymphocytic leukemia) ([facility]) 10/09/2018 Hospital - Encounter 10/12/2018 Balbina Matamoros APRN-[employer] Taylor Avelar MD Type 1 diabetes, uncontrolled, with neuropathy ([facility]) ( Primary Dx); Hypoglycemia associated with diabetes ([facility]); CLL (chronic lymphocytic leukemia) ([facility]) 10/08/2018 Office Visit Diabetes Services Gunnar Kirk MD Diarrhea 10/08/2018 Telephone Gastroenterology Milena Bhatti MD 10/02/2018 Hospital Lab Encounter Milena Bhatti MD CLL (chronic lymphocytic leukemia) (HCC) 10/02/2018 Office Visit Oncology Chiki Abbott Follow Up 09/27/2018 Telephone Gastroenterology Kayleigh Arias MD 09/26/2018 Anesthesia Event Kymberly Us MD ESOPHAGOGASTRODUODENOSCOPY with extensive gastric biopsies, concern for lymphoma involving GI tract 09/26/2018 Surgery Roldan Chen MD Rafique, Muhammad, MBBS Folscroft, Sarah, MD Tarakji, MD Mallory Mcdaniel Eyad, MD Sanderse, Nathan M, MD Abdominal pain 09/17/2018 Hospital - Encounter 09/27/2018 from Last 3 Months Immunizations Name Dates [...] Comments Father Maternal Grandmother Mother Social History Date Tobacco Use Types Packs/Day Years Used Never Smoker Smokeless Tobacco: Never Used Alcohol Use Drinks/Week oz/Week Comments No Sex Assigned at Date Recorded Not on file Industry Job Start Date Occupation Not on file Not on file Not on file Travel End Travel History Travel Start No recent travel history available. Last Filed Vital Signs Time Taken Vital Sign Reading 12/13/2018 10:22 AM [facility] Blood Pressure 124/77 12/13/2018 10:22 AM [facility] Pulse 102 11/20/2018 10:00 AM [facility] Temperature 36.8 C (98.3 F) 10/02/2018 10:32 AM [facility] Respiratory Rate 15 11/20/2018 10:00 AM [facility] Oxygen Saturation 97% - Inhaled Oxygen - Concentration 12/13/2018 10:22 AM [facility] Weight 67.1 kg (148 lb) 12/13/2018 10:22 AM [facility] Height 165.1 cm (5' 5") 12/13/2018 10:22 AM [facility] Body Mass Index 24.63 Plan of Treatment Care Team Description Date Type Specialty Gunnar Kirk MD [address] [place] [address] [phone] Delayed gastric emptying 02/03/2019 Hospital Encounter Gunnar Kirk MD [address] [place] [address] [phone] ESOPHAGOGASTRODUODENOSCOPY WITH SPECIMEN COLLECTION BY BRUSHING/ WASHING 02/03/2019 Surgery Health Maintenance Due Date Last Done Comments PHYSICAL (COMPREHENSIVE) 1969 EXAM DTAP/TDAP VACCINES (1 - 1980 Tdap) MICROALBUMIN 1980 PNEUMONIA VACCINE (DM) 1980 CERVICAL CANCER SCREENING 1992 SHINGLES RECOMBINANT 2012 VACCINE (1 of 2) DILATED EYE EXAM 09/19/2018 09/19/2017 (Previously completed) BREAST CANCER SCREENING 11/19/2018 11/19/2017 (Previously completed) HBA1C 04/07/2019 10/08/2018, 09/18/2018, 07/19/2018 FOOT EXAM 10/08/2019 10/08/2018 COLORECTAL CANCER 09/20/2023 09/20/2018, 2013 (Previously SCREENING completed) INFLUENZA VACCINE Completed 08/19/2018 HEPATITIS C SCREENING Completed 09/18/2018 HIV SCREENING Completed 09/18/2018 Implants Device Identifier Shelf Expiration Date Model / Serial / Lot Implanted Type Area Manufactur er 05/18/2026 [id number] / NA / [id number] Nail 9.3mm 11mm 32cm Tibial Nail Left: Tibia RYAN:ZIM Suprapatella Natural Nail - Sna DEJAN US Implanted: Qty: 1 on 10/14/2018 by Paul Manley MD [id number] / NA / NA Plate / Tube Titanium Pattison Plate Left: Tibia RYAN:ZIM Locking System 5 Hole Lock - Sna DEJAN US Implanted: Qty: 1 on 10/14/2018 by Paul Manley MD [id number] / NA / NA Screw Bone 4mm 38mm Titanium Screw Left: Tibia RYAN:ZIM Cancellous Nonsterile Pattison - DEJAN US Sna Implanted: Qty: 1 on 10/14/2018 by Paul Manley MD [id number] / NA / NA Screw Bone 3.5mm 5.9mm 30mm [id number] Screw Left: Tibia UNIDENTIFI Cortical Self Tap - Sna ED MFG Implanted: Qty: 1 on 10/14/2018 by Paul Manley MD 06/18/2028 [id number] / N/A / [id number] Screw Bone 5mm 3.5mm 30mm [id number] Left: Tibia RYAN:ZIM Full Thread Cortical - Sn/A DEJAN US Implanted: Qty: 1 on 10/14/2018 by Paul Manley MD 09/18/2027 [id number] / N/A / [id number] Screw Bone 5mm 3.5mm 37.5mm [id number] Left: Tibia RYAN:ZIM Full Thread Cortical - Sn/A DEJAN US Implanted: Qty: 1 on 10/14/2018 by Paul Manley MD 06/18/2028 [id number] / N/A / [id number] Screw Bone 5mm 3.5mm 40mm [id number] Left: Tibia RYAN:ZIM Full Thread Cortical - Sn/A DEJAN US Implanted: Qty: 1 on 10/14/2018 by Paul Manley MD Procedures Comments Procedure Name Priority Date/Time Associated Diagnosis ANKLE MIN 3 VIEWS LEFT Routine 12/13/2018 Post-operative state 10:31 AM [facility] TIBIA & FIBULA 2 VIEWS Routine 12/13/2018 Post-operative state LEFT 10:31 AM [facility] POC GLUCOSE 11/20/2018 12:34 PM [facility] POC GLUCOSE 11/20/2018 8:43 AM [facility] PHOSPHORUS Routine 11/20/2018 4:20 AM [facility] MAGNESIUM Routine 11/20/2018 4:20 AM [facility] COMPREHENSIVE METABOLIC Routine 11/20/2018 PANEL 4:20 AM [facility] CBC AND DIFF Routine 11/20/2018 4:20 AM [facility] POC GLUCOSE 11/19/2018 11:52 PM [facility] POC GLUCOSE 11/19/2018 7:55 PM [facility] POC GLUCOSE 11/19/2018 5:54 PM [facility] POC GLUCOSE 11/19/2018 12:39 PM [facility] POC GLUCOSE 11/19/2018 8:21 AM [facility] POC GLUCOSE 11/19/2018 6:07 AM [facility] PHOSPHORUS Routine 11/19/2018 4:00 AM [facility] MAGNESIUM Routine 11/19/2018 4:00 AM [facility] COMPREHENSIVE METABOLIC Routine 11/19/2018 PANEL 4:00 AM [facility] CBC AND DIFF Routine 11/19/2018 4:00 AM [facility] POC GLUCOSE 11/18/2018 10:46 PM [facility] POC GLUCOSE 11/18/2018 5:51 PM [facility] POC GLUCOSE 11/18/2018 12:48 PM [facility] POC GLUCOSE 11/18/2018 8:54 AM [facility] POC GLUCOSE 11/18/2018 7:51 AM [facility] PHOSPHORUS Routine 11/18/2018 4:15 AM [facility] MAGNESIUM Routine 11/18/2018 4:15 AM [facility] COMPREHENSIVE METABOLIC Routine 11/18/2018 PANEL 4:15 AM [facility] CBC AND DIFF Routine 11/18/2018 4:15 AM [facility] POC GLUCOSE 11/18/2018 3:07 AM [facility] POC GLUCOSE 11/17/2018 9:14 PM [facility] POC GLUCOSE 11/17/2018 7:32 PM [facility] POC GLUCOSE 11/17/2018 5:59 PM [facility] POC GLUCOSE 11/17/2018 5:45 PM [facility] POC GLUCOSE 11/17/2018 5:29 PM [facility] POC GLUCOSE 11/17/2018 3:42 PM [facility] POC GLUCOSE 11/17/2018 10:53 AM [facility] PHOSPHORUS Routine 11/17/2018 8:20 AM [facility] MAGNESIUM Routine 11/17/2018 8:20 AM [facility] COMPREHENSIVE METABOLIC Routine 11/17/2018 PANEL 8:20 AM [facility] CBC AND DIFF Routine 11/17/2018 8:20 AM [facility] POC GLUCOSE 11/17/2018 6:29 AM [facility] POC GLUCOSE 11/16/2018 9:17 PM [facility] PHOSPHORUS Routine 11/16/2018 9:00 PM [facility] MAGNESIUM Routine 11/16/2018 9:00 PM [facility] BASIC METABOLIC PANEL Routine 11/16/2018 9:00 PM [facility] POC GLUCOSE 11/16/2018 5:39 PM [facility] PHOSPHORUS Routine 11/16/2018 2:13 PM [facility] MAGNESIUM Routine 11/16/2018 2:13 PM [facility] BASIC METABOLIC PANEL Routine 11/16/2018 2:13 PM [facility] POC GLUCOSE 11/16/2018 2:02 PM [facility] POC GLUCOSE 11/16/2018 12:52 PM [facility] POC GLUCOSE 11/16/2018 11:42 AM [facility] POC GLUCOSE 11/16/2018 10:37 AM [facility] POC GLUCOSE 11/16/2018 9:33 AM [facility] POC GLUCOSE 11/16/2018 8:29 AM [facility] PHOSPHORUS Routine 11/16/2018 8:19 AM [facility] MAGNESIUM Routine 11/16/2018 8:19 AM [facility] BASIC METABOLIC PANEL Routine 11/16/2018 8:19 AM [facility] POC GLUCOSE 11/16/2018 7:34 AM [facility] POC GLUCOSE 11/16/2018 6:29 AM [facility] POC GLUCOSE 11/16/2018 5:27 AM [facility] POC GLUCOSE 11/16/2018 4:24 AM [facility] POC GLUCOSE 11/16/2018 3:38 AM [facility] POC GLUCOSE 11/16/2018 2:33 AM [facility] TSH WITH FREE T4 REFLEX Routine 11/16/2018 1:45 AM [facility] COMPREHENSIVE METABOLIC Routine 11/16/2018 PANEL 1:45 AM [facility] CBC AND DIFF Routine 11/16/2018 1:45 AM [facility] PHOSPHORUS Routine 11/16/2018 1:45 AM [facility] MAGNESIUM Routine 11/16/2018 1:45 AM [facility] POC GLUCOSE 11/16/2018 1:30 AM [facility] POC GLUCOSE 11/16/2018 12:27 AM [facility] POC GLUCOSE 11/15/2018 11:20 PM [facility] POC GLUCOSE 11/15/2018 10:03 PM [facility] POC GLUCOSE 11/15/2018 8:51 PM [facility] PHOSPHORUS Routine 11/15/2018 8:00 PM [facility] MAGNESIUM Routine 11/15/2018 8:00 PM [facility] BASIC METABOLIC PANEL Routine 11/15/2018 8:00 PM [facility] CULTURE-BLOOD STAT 11/15/2018 W/SENSITIVITY 8:00 PM [facility] POC LACTATE 11/15/2018 7:58 PM [facility] POC GLUCOSE 11/15/2018 7:43 PM [facility] POC GLUCOSE 11/15/2018 7:05 PM [facility] POC GLUCOSE 11/15/2018 6:26 PM [facility] POC GLUCOSE 11/15/2018 5:53 PM [facility] CONSULT IV THERAPY TEAM STAT 11/15/2018 5:49 PM [facility] POC GLUCOSE 11/15/2018 4:[address] HEAD WO CONTRAST STAT 11/15/2018 4:42 PM [facility] URINALYSIS, MICROSCOPIC STAT 11/15/2018 3:28 PM [facility] URINALYSIS DIPSTICK STAT 11/15/2018 3:28 PM [facility] OSMOLALITY STAT 11/15/2018 3:27 PM [facility] BETA HYDROXYBUTYRATE STAT 11/15/2018 (KETONES) 3:27 PM [facility] POC LACTATE 11/15/2018 3:22 PM [facility] BLOOD GASES, PERIPHERAL STAT 11/15/2018 VENOUS 3:19 PM [facility] POC GLUCOSE 11/15/2018 3:17 PM [facility] TROPONIN-I Add on 11/15/2018 3:16 PM [facility] MAGNESIUM STAT 11/15/2018 3:16 PM [facility] TSH WITH FREE T4 REFLEX STAT 11/15/2018 3:16 PM [facility] LIPASE STAT 11/15/2018 3:16 PM [facility] COMPREHENSIVE METABOLIC STAT 11/15/2018 PANEL 3:16 PM [facility] CBC AND DIFF STAT 11/15/2018 3:16 PM [facility] CULTURE-BLOOD STAT 11/15/2018 W/SENSITIVITY 3:16 PM [facility] ECG 12-LEAD STAT 11/15/2018 3:04 PM [facility] ECG-SCAN 11/15/2018 12:00 AM [facility] ANKLE MIN 3 VIEWS LEFT Routine 10/30/2018 Left ankle pain, 12:21 PM [facility] unspecified chronicity TELEMETRY STRIPS-SCAN 10/20/2018 2:54 PM [facility] POC GLUCOSE 10/18/2018 12:12 PM [facility] POC GLUCOSE 10/18/2018 9:12 AM [facility] CBC Routine 10/18/2018 4:00 AM [facility] BASIC METABOLIC PANEL Routine 10/18/2018 4:00 AM [facility] POC GLUCOSE 10/17/2018 9:05 PM [facility] POC GLUCOSE 10/17/2018 5:42 PM [facility] POC GLUCOSE 10/17/2018 5:04 PM [facility] POC GLUCOSE 10/17/2018 4:25 PM [facility] POC GLUCOSE 10/17/2018 11:30 AM [facility] POC GLUCOSE 10/17/2018 9:25 AM [facility] COMPREHENSIVE METABOLIC Routine 10/17/2018 PANEL 3:50 AM [facility] CBC AND DIFF Routine 10/17/2018 3:50 AM [facility] POC GLUCOSE 10/16/2018 11:00 PM [facility] POC GLUCOSE 10/16/2018 9:49 PM [facility] POC GLUCOSE 10/16/2018 6:02 PM [facility] POC GLUCOSE 10/16/2018 4:24 PM [facility] POC GLUCOSE 10/16/2018 2:26 PM [facility] POC GLUCOSE 10/16/2018 8:37 AM [facility] COMPREHENSIVE METABOLIC Routine 10/16/2018 PANEL 4:28 AM [facility] CBC AND DIFF Routine 10/16/2018 4:28 AM [facility] POC GLUCOSE 10/16/2018 4:21 AM [facility] POC GLUCOSE 10/15/2018 8:25 PM [facility] POC GLUCOSE 10/15/2018 5:34 PM [facility] ECG-SCAN 10/15/2018 1:20 PM [facility] POC GLUCOSE 10/15/2018 12:11 PM [facility] POC GLUCOSE 10/15/2018 8:35 AM [facility] COMPREHENSIVE METABOLIC Routine 10/15/2018 PANEL 4:02 AM [facility] CBC AND DIFF Routine 10/15/2018 4:02 AM [facility] POC GLUCOSE 10/14/2018 8:22 PM [facility] POC GLUCOSE 10/14/2018 5:01 PM [facility] POC GLUCOSE 10/14/2018 1:28 PM [facility] POC GLUCOSE 10/14/2018 10:16 AM [facility] FLUORO MOBILE IN OR Routine 10/14/2018 9:55 AM [facility] POC GLUCOSE 10/14/2018 9:14 AM [facility] OPEN TREATMENT TIBIAL 10/14/2018 Closed fracture of left SHAFT FRACTURE WITH 7:30 AM [facility] tibia and fibula, initial PLATES/ SCREWS WITH/ encounter WITHOUT CERCLAGE POC GLUCOSE 10/14/2018 7:03 AM [facility] COMPREHENSIVE METABOLIC Routine 10/14/2018 PANEL 4:20 AM [facility] CBC AND DIFF Routine 10/14/2018 4:20 AM [facility] POC GLUCOSE 10/13/2018 8:07 PM [facility] POC GLUCOSE 10/13/2018 5:35 PM [facility] POC GLUCOSE 10/13/2018 5:05 PM [facility] POC GLUCOSE 10/13/2018 10:48 AM [facility] POC GLUCOSE 10/13/2018 7:34 AM [facility] POC GLUCOSE 10/13/2018 7:30 AM [facility] IONIZED CALCIUM Routine 10/13/2018 2:15 AM [facility] COMPREHENSIVE METABOLIC Routine 10/13/2018 PANEL 2:15 AM [facility] CBC AND DIFF Routine 10/13/2018 2:15 AM [facility] CHEST SINGLE VIEW Routine 10/12/2018 11:13 PM [facility] UA REFLEX CULTURE LABEL STAT 10/12/2018 10:40 PM [facility] URINALYSIS MICROSCOPIC STAT 10/12/2018 REFLEX TO CULTURE 10:40 PM [facility] URINALYSIS DIPSTICK STAT 10/12/2018 REFLEX TO CULTURE 10:[address] LOWER EXTREM WO CONT JOSH 10/12/2018 LEFT 9:54 PM [facility] POC GLUCOSE 10/12/2018 9:07 PM [facility] TIBIA & FIBULA 2 VIEWS STAT 10/12/2018 LEFT 8:30 PM [facility] TIBIA & FIBULA 2 VIEWS STAT 10/12/2018 LEFT 6:44 PM [facility] ECG-SCAN 10/12/2018 5:30 PM [facility] KNEE 1 OR 2 VIEWS STAT 10/12/2018 BILATERAL 5:30 PM [facility] FOOT 2 VIEW BILATERAL STAT 10/12/2018 5:30 PM [facility] TIBIA & FIBULA 2 VIEW STAT 10/12/2018 BILAT 5:30 PM [facility] ANKLE MIN 3 VIEWS STAT 10/12/2018 BILATERAL 5:30 PM [facility] PROCEDURAL SEDATION Routine 10/12/2018 4:29 PM [facility] ECG 12-LEAD STAT 10/12/2018 4:28 PM [facility] COMPREHENSIVE METABOLIC STAT 10/12/2018 PANEL 3:30 PM [facility] CBC AND DIFF STAT 10/12/2018 3:30 PM [facility] POC GLUCOSE 10/12/2018 11:28 AM [facility] POC GLUCOSE 10/12/2018 10:47 AM [facility] POC GLUCOSE 10/12/2018 7:28 AM [facility] POC GLUCOSE 10/12/2018 3:06 AM [facility] MAGNESIUM Routine 10/12/2018 3:00 AM [facility] COMPREHENSIVE METABOLIC Routine 10/12/2018 PANEL 3:00 AM [facility] CBC AND DIFF Routine 10/12/2018 3:00 AM [facility] POC GLUCOSE 10/11/2018 8:57 PM [facility] POC GLUCOSE 10/11/2018 5:16 PM [facility] CTA ABD/PELVIS Routine 10/11/2018 2:18 PM [facility] POC GLUCOSE 10/11/2018 12:28 PM [facility] CONSULT IV THERAPY TEAM Routine 10/11/2018 11:40 AM [facility] ELECTROPHORESIS-SERUM Routine 10/11/2018 PROTEIN 11:25 AM [facility] POC GLUCOSE 10/11/2018 8:14 AM [facility] POC GLUCOSE 10/11/2018 6:14 AM [facility] POC GLUCOSE 10/11/2018 6:03 AM [facility] LIPASE Add on 10/11/2018 2:00 AM [facility] MAGNESIUM Routine 10/11/2018 2:00 AM [facility] COMPREHENSIVE METABOLIC Routine 10/11/2018 PANEL 2:00 AM [facility] CBC AND DIFF Routine 10/11/2018 2:00 AM [facility] POC GLUCOSE 10/10/2018 8:06 PM [facility] POC GLUCOSE 10/10/2018 5:04 PM [facility] UA REFLEX CULTURE LABEL Routine 10/10/2018 4:30 PM [facility] URINALYSIS MICROSCOPIC Routine 10/10/2018 REFLEX TO CULTURE 4:30 PM [facility] URINALYSIS DIPSTICK Routine 10/10/2018 REFLEX TO CULTURE 4:30 PM [facility] OPIATES 300 OR Routine 10/10/2018 GREATER-URINE RANDOM 4:30 PM [facility] OXYCODONE URINE SCREEN Routine 10/10/2018 4:30 PM [facility] METHADONE-URINE SCREEN Routine 10/10/2018 4:30 PM [facility] PHENCYCLIDINES-URINE Routine 10/10/2018 RANDOM 4:30 PM [facility] COCAINE-URINE RANDOM Routine 10/10/2018 4:30 PM [facility] CANNABINOIDS-URINE RANDOM Routine 10/10/2018 4:30 PM [facility] BENZODIAZEPINES-URINE Routine 10/10/2018 RANDOM 4:30 PM [facility] BARBITURATES-URINE RANDOM Routine 10/10/2018 4:30 PM [facility] AMPHETAMINES-URINE RANDOM Routine 10/10/2018 4:30 PM [facility] POC GLUCOSE 10/10/2018 1:44 PM [facility] POC GLUCOSE 10/10/2018 9:11 AM [facility] CRYPTOSPORIDUM,FECAL Routine 10/10/2018 4:55 AM [facility] LEUKOCYTES, FECAL Routine 10/10/2018 4:55 AM [facility] C DIFFICILE BY PCR Routine 10/10/2018 4:55 AM [facility] CULTURE-FECES Routine 10/10/2018 W/SENSITIVITY 4:55 AM [facility] POC GLUCOSE 10/10/2018 3:39 AM [facility] POC GLUCOSE 10/10/2018 3:16 AM [facility] MAGNESIUM Routine 10/10/2018 2:07 AM [facility] COMPREHENSIVE METABOLIC Routine 10/10/2018 PANEL 2:07 AM [facility] CBC AND DIFF Routine 10/10/2018 2:07 AM [facility] POC GLUCOSE 10/09/2018 8:29 PM [facility] POC GLUCOSE 10/09/2018 5:30 PM [facility] COMPREHENSIVE METABOLIC STAT 10/09/2018 PANEL 10:57 AM [facility] CBC AND DIFF STAT 10/09/2018 10:57 AM [facility] POC GLUCOSE Routine 10/08/2018 Hypoglycemia associated with diabetes (HCC) POC HEMOGLOBIN A1C Routine 10/08/2018 Hypoglycemia associated with diabetes (HCC) GLUCOSE METER DOWNLOAD Routine 10/08/2018 Hypoglycemia associated with diabetes (HCC) TELEMETRY STRIPS-SCAN 10/07/2018 1:02 PM [facility] CYTOGENETICS SCAN 10/04/2018 4:06 PM [facility] TELEMETRY STRIPS-SCAN 10/03/2018 2:01 PM [facility] CHROMOSOMES FISH DNA Routine 10/02/2018 CLL (chronic lymphocytic PROBE-BLOOD 1:00 PM [facility] leukemia) ([facility]) LDH-LACTATE DEHYDROGENASE Routine 10/02/2018 CLL (chronic lymphocytic 12:40 PM [facility] leukemia) ([facility]) BETA 2 MICROGLOBULIN Routine 10/02/2018 CLL (chronic lymphocytic 12:40 PM [facility] leukemia) ([facility]) IMMUNOGLOBULINS-IGA,IGG,I Routine 10/02/2018 CLL (chronic lymphocytic GM 12:40 PM [facility] leukemia) ([facility]) POC GLUCOSE 09/27/2018 11:44 AM [facility] DIRECT ANTIGLOBULIN Routine 09/27/2018 TEST(TITO) 11:14 AM [facility] PERIPHERAL SMEAR Routine 09/27/2018 11:14 AM [facility] HAPTOGLOBIN Routine 09/27/2018 11:14 AM [facility] LDH-LACTATE DEHYDROGENASE Routine 09/27/2018 11:14 AM [facility] POC GLUCOSE 09/27/2018 8:06 AM [facility] COMPREHENSIVE METABOLIC Routine 09/27/2018 PANEL 4:03 AM [facility] CBC AND DIFF Routine 09/27/2018 4:03 AM [facility] POC GLUCOSE 09/26/2018 8:46 PM [facility] POC GLUCOSE 09/26/2018 6:30 PM [facility] SURGICAL PATHOLOGY 09/26/2018 5:17 PM [facility] FLOW CYTOMETRY 09/26/2018 5:14 PM [facility] FLOW CYTOMETRY 09/26/2018 5:14 PM [facility] LEUKEMIA/LYMPHOMA PANEL Routine 09/26/2018 FLUID/TISSUE 5:14 PM [facility] LEUKEMIA/LYMPHOMA PANEL Routine 09/26/2018 FLUID/TISSUE 5:14 PM [facility] POC GLUCOSE 09/26/2018 4:06 PM [facility] ESOPHAGOGASTRODUODENOSCOP 09/26/2018 Stomach ache Y WITH BIOPSY - FLEXIBLE 3:59 PM [facility] ESOPHAGOGASTRODUODENOSCOP 09/26/2018 Stomach ache Y 3:59 PM [facility] EGD REPORT 09/26/2018 3:[address] ABD/PELV W CONTRAST STAT 09/26/2018 12:14 PM [facility] POC GLUCOSE 09/26/2018 11:16 AM [facility] POC GLUCOSE 09/26/2018 8:18 AM [facility] IRON + BINDING CAPACITY + Routine 09/26/2018 %SAT+ FERRITIN 4:00 AM [facility] URIC ACID Routine 09/26/2018 4:00 AM [facility] LDH-LACTATE DEHYDROGENASE Routine 09/26/2018 4:00 AM [facility] HEPATITIS B CORE AB TOT Routine 09/26/2018 (IGG+IGM) 4:00 AM [facility] COMPREHENSIVE METABOLIC Routine 09/26/2018 PANEL 4:00 AM [facility] CBC AND DIFF Routine 09/26/2018 4:00 AM [facility] from Last 3 Months Results * TIBIA & FIBULA 2 VIEWS LEFT (12/13/2018 10:31 AM [facility]) Only the most recent of 3 results within the time period is included. Impressions Performed At Findings/Impression: [facility] 1.Apparent increase in moderate apex posterior angulation at the site of the distal fibula fracture with partial progressive healing of the distal fibula fracture. Persistent ulolobzh-ou-rljnna posterior and medial displacement of the distal fibula fracture segment with some valgus angulation. 2.Persistent comminuted fractures of the distal tibia with intact hardware fixation and alignment maintained. Mild partial healing of that fracture. 3.Knee and ankle joint spaces maintained. Finalized by Benjamin Lim M.D. on 12/13/2018 12:02 PM. Dictated by Benjamin Lim M.D. on 12/13/2018 12:00 PM. Narrative Performed At TIBIA & FIBULA 2 VIEWS LEFT [facility] Clinical Indication: Pain. Comparison: None Procedure Note Interface, Radiant Results - 12/13/2018 12:05 PM [facility] TIBIA & FIBULA 2 VIEWS LEFT Clinical Indication: Pain. Comparison: None IMPRESSION Findings/Impression: 1. Apparent increase in moderate apex posterior angulation at the site of the distal fibula fracture with partial progressive healing of the distal fibula fracture. Persistent ensxbkpf-dx-oycmie posterior and medial displacement of the distal fibula fracture segment with some valgus angulation. 2. Persistent comminuted fractures of the distal tibia with intact hardware fixation and alignment maintained. Mild partial healing of that fracture. 3. Knee and ankle joint spaces maintained. Finalized by Benjamin Lim M.D. on 12/13/2018 12:02 PM. Dictated by Benjamin Lim M.D. on 12/13/2018 12:00 PM. Performing Organization Address City/State/Zipcode Phone Number [facility] RES[facility] * ANKLE MIN 3 VIEWS LEFT (12/13/2018 10:31 AM [facility]) Only the most recent of 2 results within the time period is included. Impressions Performed At Findings/Impression: [facility] 1.Apparent interval increase in apex posterior angulation at the site of the oblique distal fibula fracture. Persistent moderate to marked posterior and medial displacement of the distal fracture segment with valgus angulation. Partial progressive healing of that fracture. 2.Persistent comminuted fractures of the distal tibia with alignment similar to prior study and intact IM nail with interlocking screw fixation and medial plate and screw fixation. Mild partial healing that fracture. 3.Ankle and subtalar joint spaces maintained. Finalized by Benjamin Lim M.D. on 12/13/2018 11:58 AM. Dictated by Benjamin Lim M.D. on 12/13/2018 11:55 AM. Narrative Performed At ANKLE MIN 3 VIEWS LEFT [facility] Clinical Indication: Pain. Comparison: October 30, 2018 Procedure Note Interface, Radiant Results - 12/13/2018 12:01 PM [facility] ANKLE MIN 3 VIEWS LEFT Clinical Indication: Pain. Comparison: October 30, 2018 IMPRESSION Findings/Impression: 1. Apparent interval increase in apex posterior angulation at the site of the oblique distal fibula fracture. Persistent moderate to marked posterior and medial displacement of the distal fracture segment with valgus angulation. Partial progressive healing of that fracture. 2. Persistent comminuted fractures of the distal tibia with alignment similar to prior study and intact IM nail with interlocking screw fixation and medial plate and screw fixation. Mild partial healing that fracture. 3. Ankle and subtalar joint spaces maintained. Finalized by Benjamin Lim M.D. on 12/13/2018 11:58 AM. Dictated by Benjamin Lim M.D. on 12/13/2018 11:55 AM. Performing Organization Address City/State/Zipcode Phone Number [facility] RES[facility] * POC GLUCOSE (11/20/2018 12:34 PM [facility]) Only the most recent of 104 results within the time period is included. Glucose, POC 215 (H) 70 - 100 MG/DL [facility] Performing Organization Address City/State/Zipcode Phone Number [facility] [address] [place] [address] * CBC AND DIFF (11/20/2018 4:20 AM [facility]) Only the most recent of 18 results within the time period is included. White Blood Cells 8.2 4.5 - 11.0 K/UL [facility] RBC 3.73 (L) 4.0 - 5.0 M/UL [facility] Hemoglobin 11.3 (L) 12.0 - 15.0 GM/DL [facility] Hematocrit 34.5 (L) 36 - 45 % [facility] MCV 92.5 80 - 100 FL MAIN LAB MCH 30.4 26 - 34 PG MAIN LAB MCHC 32.9 32.0 - 36.0 G/DL MAIN LAB RDW 15.8 (H) 11 - 15 % [facility] Platelet Count 208 150 - 400 K/UL MAIN LAB MPV 8.9 7 - 11 FL [facility] Neutrophils 22 (L) 41 - 77 % [facility] Lymphocytes 63 (H) 24 - 44 % [facility] Monocytes 4 4 - 12 % [facility] Eosinophils 10 (H) 0 - 5 % [facility] Basophils 1 0 - 2 % [facility] Absolute Neutrophil Count 1.80 1.8 - 7.0 K/UL [facility] Absolute Lymph Count 5.30 (H) 1.0 - 4.8 K/UL [facility] Absolute Monocyte Count 0.30 0 - 0.80 K/UL [facility] Absolute Eosinophil Count 0.80 (H) 0 - 0.45 K/UL [facility] Absolute Basophil Count 0.00 0 - 0.20 K/UL [facility] Specimen Blood Performing Organization Address City/[facility] Phone Number MA[facility] LAB [address] [place] [address] * PHOSPHORUS (11/20/2018 4:20 AM [facility]) Only the most recent of 9 results within the time period is included. Phosphorus 3.8Comment: NOTE NEW REFERENCE 2.0 - 4.5 MG/DL MAIN LAB RANGES Specimen Blood Performing Organization Address [facility] Cent[facility] Phone Number MA[facility] LAB [address] [place] [address] * MAGNESIUM (11/20/2018 4:20 AM [facility]) Only the most recent of 13 results within the time period is included. Magnesium 1.9 1.6 - 2.6 mg/dL MAIN LAB Specimen Blood Performing Organization Address [facility] Phone Number [facility] [address] [place] [address] * COMPREHENSIVE METABOLIC PANEL (11/20/2018 4:20 AM [facility]) Only the most recent of 18 results within the time period is included. Sodium 141 137 - 147 MMOL/L MAIN LAB Potassium 3.7 3.5 - 5.1 MMOL/L [facility] Chloride 105 98 - 110 MMOL/L [facility] Glucose 155 (H) 70 - 100 MG/DL [facility] Blood Urea Nitrogen 9 7 - 25 MG/DL [facility] Creatinine 0.71 0.4 - 1.00 MG/DL [facility] Calcium 8.4 (L) 8.5 - 10.6 MG/DL [facility] Total Protein 4.7 (L) 6.0 - 8.0 G/DL [facility] Total Bilirubin 0.2 (L) 0.3 - 1.2 MG/DL [facility] Albumin 2.9 (L) 3.5 - 5.0 G/DL [facility] Alk Phosphatase 131 (H) 25 - 110 U/L [facility] AST (SGOT) 18 7 - 40 U/L [facility] CO2 30 21 - 30 MMOL/L [facility] ALT (SGPT) 27 7 - 56 U/L [facility] [...] Address City/State/Zipcode Phone Number MAIN LAB [address] [place] [address] * BASIC METABOLIC PANEL (11/16/2018 9:00 PM [facility]) Only the most recent of 5 results within the time period is included. Sodium 136 (L) 137 - 147 MMOL/L [facility] Potassium 3.7 3.5 - 5.1 MMOL/L [facility] Chloride 108 98 - 110 MMOL/L [facility] CO2 24 21 - 30 MMOL/L [facility] Anion Gap 4 3 - 12 [facility] Glucose 170 (H) 70 - 100 MG/DL [facility] Blood Urea Nitrogen 4 (L) 7 - 25 MG/DL [facility] Creatinine 0.64 0.4 - 1.00 MG/DL [facility] Calcium 7.7 (L) 8.5 - 10.6 MG/DL [facility] eGFR Non >60 >60 mL/min MAIN LAB Comment: The [...] for questions. Specimen Blood Performing Organization Address City/[facility]/Zipcode Phone Number MAIN LAB [address] [place] [address] * TSH WITH FREE T4 REFLEX (11/16/2018 1:45 AM [facility]) Only the most recent of 2 results within the time period is included. TSH 1.770 0.35 - 5.00 MCU/ML MAIN LAB Specimen Blood Performing Organization Address [facility] Cent[facility]ode Phone Number MAIN LAB [address] [place] [phone] * CULTURE-BLOOD W/SENSITIVITY (11/15/2018 8:00 PM [facility]) Only the most recent of 2 results within the time period is included. Battery Name BLOOD CULTURE MAIN LAB Specimen Description BLOOD MAIN LAB RIGHT WRIST PEDS FAN BOTTLE Special Requests Culture performed on specimen MAIN LAB with less than the recommended volume of 10 ml/bottle. Decreased volume will affect sensitivity of culture. Culture NO GROWTH 5 DAYS [facility] Report Status FINAL MAIN LAB 11/21/2018 Specimen Blood Performing Organization Address [facility] Phone Number MAIN LAB [address] [place] [phone] * POC LACTATE (11/15/2018 7:58 PM [facility]) Only the most recent of 2 results within the time period is included. LACTIC ACID POC 1.4 0.5 - 2.0 MMOL/L MAIN LAB Performing Organization Address [facility]/Zipcode Phone Number MAIN LAB [address] [place] [phone] * CT HEAD WO CONTRAST (11/15/2018 4:42 PM [facility]) Impressions Performed At No acute intracranial abnormality. RAD RESULTS Finalized by HERNÁN MENDIETA M.D. on 11/15/2018 4:54 PM. Dictated by HERNÁN MENDIETA M.D. on 11/15/2018 4:53 PM. Narrative Performed At CT HEAD WITHOUT CONTRAST [facility] RESULTS HISTORY: 58 years old Female, altered mental status. Syncope. TECHNIQUE: CT images of the head were acquired without intravenous contrast. COMPARISON: July 19, 2018 FINDINGS: BRAIN PARENCHYMA: No acute hemorrhage. No mass effect or herniation. Pisano- white differentiation is maintained. White matter is within normal limits for age. VENTRICLES/EXTRA-AXIAL SPACES: No hydrocephalus or extra-axial fluid collections. EXTRACRANIAL STRUCTURES: Normal bones and soft tissues. Visualized paranasal sinuses and mastoids are clear. Procedure Note Interface, Radiant Results - 11/15/2018 4:[address] HEAD WITHOUT CONTRAST HISTORY: 58 years old Female, altered mental status. Syncope. TECHNIQUE: CT images of the head were acquired without intravenous contrast. COMPARISON: July 19, 2018 FINDINGS: BRAIN PARENCHYMA: No acute hemorrhage. No mass effect or herniation. Pisano-white differentiation is maintained. White matter is within normal limits for age. VENTRICLES/EXTRA-AXIAL SPACES: No hydrocephalus or extra-axial fluid collections. EXTRACRANIAL STRUCTURES: Normal bones and soft tissues. Visualized paranasal sinuses and mastoids are clear. IMPRESSION No acute intracranial abnormality. Finalized by HERNÁN MENDIETA M.D. on 11/15/2018 4:54 PM. Dictated by HERNÁN MENDIETA M.D. on 11/15/2018 4:53 PM. Performing Organization Address City/State/Zipcode Phone Number [employer] RAD RESULTS * URINALYSIS, MICROSCOPIC (11/15/2018 3:28 PM [facility]) WBCs,UA 0-2 0 - 2 /HPF [facility] RBCs,UA 0-2 0 - 3 /HPF [facility] MucousUA TRACE [facility] Bacteria,UA FEW (A) NEG-NEG [facility] Squamous Epithelial Cells 0-2 0 - 5 [facility] Specimen Urine - Urine Performing Organization Address City/[facility]/Zipcode Phone Number [facility] [address] [place] [address] * URINALYSIS DIPSTICK (11/15/2018 3:28 PM [facility]) Color,UA YELLOW [facility] Turbidity,UA CLEAR CLEAR-CLEAR [facility] Specific [place]-Urine 1.028 1.003 - 1.035 [facility] pH,UA 5.0 5.0 - 8.0 [facility] Protein,UA 1+ (A) NEG-NEG MAIN LAB Glucose,UA 3+ (A) NEG-NEG MAIN LAB Ketones,UA 2+ (A) NEG-NEG MAIN LAB Bilirubin,UA NEG NEG-NEG [facility] Blood,UA NEG NEG-NEG MAIN LAB Urobilinogen,UA NORMAL NORM-NORMAL MAIN LAB Nitrite,UA NEG NEG-NEG MAIN LAB Leukocytes,UA NEG NEG-NEG MAIN LAB Urine Ascorbic Acid, UA NEG NEG-NEG MAIN LAB Specimen Urine - Urine Performing Organization Address [facility] Phone Number MAIN LAB [address] [place] [address] * BETA HYDROXYBUTYRATE (KETONES) (11/15/2018 3:27 PM [facility]) Beta Hydroxybutyrate 6.5 (H) <0.3 MMOL/L MAIN LAB Comment: Beta hydroxybutyrate (BOHB) is the most abundant ketone (78%), followed by acetoacetate (20%) and acetone (2%).Measurement BOHB is recommended to assess ketones in DKA. Expected BOHB Results for DKA: Initial presentation high/increasing During treatment decreasing Resolved decreasing/normal Specimen Blood Performing Organization Address [facility] Phone Number MAIN LAB [address] [place] [address] * OSMOLALITY (11/15/2018 3:27 PM [facility]) Osmolality 297 280 - 307 MOSMOL/KG MAIN LAB Specimen Blood Performing Organization Address [facility] Phone Number MAIN LAB [address] [place] [address] * BLOOD GASES, PERIPHERAL VENOUS (11/15/2018 3:19 PM [facility]) pH-Venous 7.33 7.30 - 7.40 MAIN LAB PCO2-Venous 35 (L) 36 - 50 MMHG MAIN LAB PO2-Venous 47 33 - 48 MMHG MAIN LAB Base Deficit-Venous 6.7 MMOL/L MAIN LAB O2 Sat-Venous 77.6 (H) 55 - 71 % MAIN LAB Kpjwcwkkupo-UIZ-Dlp 18.7 MMOL/L MAIN LAB Specimen Blood, venous - Blood Performing Organization Address [facility] Phone Number MAIN LAB [address] [place] [address] * TROPONIN-I (11/15/2018 3:16 PM [facility]) Troponin-I <0.01 0.0 - 0.05 NG/ML MAIN LAB Performing Organization Address City/[facility] Phone Number MAIN LAB [address] [place] [address] * LIPASE (11/15/2018 3:16 PM [facility]) Only the most recent of 2 results within the time period is included. Lipase 9 (L) 11 - 82 U/L MAIN LAB Specimen Blood Performing Organization Address [facility] Phone Number MAIN LAB [address] [place] [address] * ECG-SCAN (11/15/2018 12:00 AM [facility]) Narrative Performed At Ordered by an unspecified provider. * TELEMETRY STRIPS-SCAN (10/20/2018 2:54 PM [facility]) Narrative Performed At Ordered by an unspecified provider. * CBC (10/18/2018 4:00 AM [facility]) White Blood Cells 8.5 4.5 - 11.0 K/UL MAIN LAB RBC 3.08 (L) 4.0 - 5.0 M/UL MAIN LAB Hemoglobin 9.2 (L) 12.0 - 15.0 GM/DL MAIN LAB Hematocrit 28.6 (L) 36 - 45 % MAIN LAB MCV 92.9 80 - 100 FL [facility] MCH 29.9 26 - 34 PG MAIN LAB MCHC 32.2 32.0 - 36.0 G/DL [facility] LAB RDW 18.6 (H) 11 - 15 % [facility] Platelet Count 262 150 - 400 K/UL MAIN LAB MPV 8.7 7 - 11 FL MAIN LAB Specimen Blood Performing Organization Address [facility] Phone Number MAIN LAB [address] [place] [address] * ECG-SCAN (10/15/2018 1:20 PM [facility]) Narrative Performed At Ordered by an unspecified provider. * FLUORO MOBILE IN OR (10/14/2018 9:55 AM [facility]) Narrative Performed At This order has been auto finalized and does not contain a result. [facility] Performing Organization Address City/[facility]/Zipcode Phone Number [facility] * IONIZED CALCIUM (10/13/2018 2:15 AM [facility]) Ionized Calcium 0.94 (L) 1.0 - 1.3 MMOL/L [facility] Specimen Blood Performing Organization Address [facility] Phone Number [employer] MAIN LAB [address] [place] [address] * CHEST SINGLE VIEW (10/12/2018 11:13 PM [facility]) Impressions Performed At Stable chest radiograph demonstrating no acute cardiopulmonary abnormalities. [facility] RESULTS Finalized by Kings Flores M.D. on 10/13/2018 11:36 AM. Dictated by Kings Flores M.D. on 10/13/2018 11:35 AM. Narrative Performed At CHEST SINGLE VIEW [facility] RESULTS History: Questionable hypoxia. Chronic lymphocytic leukemia Technique: Single portable AP upright view of the chest was obtained. Comparison: Comparison is made to an examination of 08/04/2018. Findings: Cardiac size and configuration are stable. There is no vascular congestion. No acute interstitial or alveolar opacities are identified. No parenchymal masses are detected. Left Mxmwqk-n-Qukg catheter remains in place with its tip at the level of mid SVC. No pleural fluid is seen. No pneumothorax is identified. Procedure Note Interface, Radiant Results - 10/13/2018 11:39 AM [facility] CHEST SINGLE VIEW History: Questionable hypoxia. Chronic lymphocytic leukemia Technique: Single portable AP upright view of the chest was obtained. Comparison: Comparison is made to an examination of 08/04/2018. Findings: Cardiac size and configuration are stable. There is no vascular congestion. No acute interstitial or alveolar opacities are identified. No parenchymal masses are detected. Left Hjmgyr-o-Lycw catheter remains in place with its tip at the level of mid SVC. No pleural fluid is seen. No pneumothorax is identified. IMPRESSION Stable chest radiograph demonstrating no acute cardiopulmonary abnormalities. Finalized by Kings Flores M.D. on 10/13/2018 11:36 AM. Dictated by Kings Flores M.D. on 10/13/2018 11:35 AM. Performing Organization Address City/[facility] Phone Number [facility] RES[facility] * UA REFLEX CULTURE LABEL (10/12/2018 10:40 PM [facility]) Only the most recent of 2 results within the time period is included. UA Reflex Culture LAB LABEL [facility] Specimen Urine Performing Organization Address City/[facility] Phone Number [facility] [address] [place] [address] * URINALYSIS MICROSCOPIC REFLEX TO CULTURE (10/12/2018 10:40 PM [facility]) Only the most recent of 2 results within the time period is included. WBCs,UA 0-2 0 - 2 /HPF [facility] RBCs,UA 0-2 0 - 3 /HPF [facility] Comment,UA Urine submitted for reflex [facility] culture if criteria are met:WBC>10, positive nitrite and/or >=1+ leukocyte esterase. If quantity is not sufficient, an addendum will follow. Bacteria,UA FEW (A) NEG-NEG [facility] Squamous Epithelial Cells 2-5 0 - 5 [facility] Specimen Urine Performing Organization Address [facility] Phone Number [facility] [address] [place] [address] * URINALYSIS DIPSTICK REFLEX TO CULTURE (10/12/2018 10:40 PM [facility]) Only the most recent of 2 results within the time period is included. Color,UA YELLOW [facility] Turbidity,UA CLEAR CLEAR-CLEAR [facility] Specific [place]-Urine 1.009 1.003 - 1.035 [facility] pH,UA 8.0 5.0 - 8.0 [facility] Protein,UA NEG NEG-NEG [facility] Glucose,UA 1+ (A) NEG-NEG [facility] Ketones,UA NEG NEG-NEG [facility] Bilirubin,UA NEG NEG-NEG [facility] Blood,UA NEG NEG-NEG [facility] Urobilinogen,UA NORMAL NORM-NORMAL [facility] Nitrite,UA NEG NEG-NEG [facility] Leukocytes,UA NEG NEG-NEG [facility] Urine Ascorbic Acid, UA NEG NEG-NEG [facility] Specimen Urine Performing Organization Address [facility] Phone Number [facility] [address] [place] [address] * CT LOWER EXTREM WO CONT LEFT (10/12/2018 9:54 PM [facility]) Impressions Performed At 1.Comminuted fracture of the distal tibial diaphysis with nondisplaced [facility] RESULTS extension to the tibial plafond and medial malleolus. 2.Oblique fracture of the distal fibula with additional nondisplaced fractures in the distal fibular fracture segment. By my electronic signature, I attest that I have personally reviewed the images for this examination and formulated the interpretations and opinions expressed in this report Finalized by Alvarado Wilkins M.D. on 10/12/2018 10:08 PM. Dictated by Rory Mansfield D.O. on 10/12/2018 9:50 PM. Narrative Performed At CT LOWER EXTREM WO CONT LEFT [facility] RESULTS Clinical Indication: Tibia/fibula fracture. Comparison: Same day radiographs Technique: Axial noncontrast images were obtained through the left lower extremity. Thin section images were reconstructed and utilized for reformatted images. Additional post processing was performed and 3-D images were reconstructed with horizontal and cephalocaudad rotation. Findings: Redemonstration of comminuted fracture of the distal tibial diaphysis. There is mild apex posterior angulation of the dominant distal tibia fracture fragment. There is nondisplaced extension of fracture lines to the tibial plafond resulting in a nondisplaced medial malleolus fracture. Oblique mildly displaced fracture of the distal fibula with additional nondisplaced fractures in the distal fibula fracture segment at the level of the syndesmosis. Syndesmotic alignment is maintained. There is medial displacement of the dominant distal fracture segment at the displaced fracture site by approximately 0.5 cm. Ankle mortise is maintained. Talar dome is intact. The remaining visualized bones are intact. There is soft tissue contusion and soft tissue stranding as well as intramuscular hemorrhage in the region of fractures and in the more distal soft tissues of the lower extremity. Casting material about the foot and ankle noted. Procedure Note Interface, Radiant Results - 10/12/2018 10:[address] LOWER EXTREM WO CONT LEFT Clinical Indication: Tibia/fibula fracture. Comparison: Same day radiographs Technique: Axial noncontrast images were obtained through the left lower extremity. Thin section images were reconstructed and utilized for reformatted images. Additional post processing was performed and 3-D images were reconstructed with horizontal and cephalocaudad rotation. Findings: Redemonstration of comminuted fracture of the distal tibial diaphysis. There is mild apex posterior angulation of the dominant distal tibia fracture fragment. There is nondisplaced extension of fracture lines to the tibial plafond resulting in a nondisplaced medial malleolus fracture. Oblique mildly displaced fracture of the distal fibula with additional nondisplaced fractures in the distal fibula fracture segment at the level of the syndesmosis. Syndesmotic alignment is maintained. There is medial displacement of the dominant distal fracture segment at the displaced fracture site by approximately 0.5 cm. Ankle mortise is maintained. Talar dome is intact. The remaining visualized bones are intact. There is soft tissue contusion and soft tissue stranding as well as intramuscular hemorrhage in the region of fractures and in the more distal soft tissues of the lower extremity. Casting material about the foot and ankle noted. IMPRESSION 1. Comminuted fracture of the distal tibial diaphysis with nondisplaced extension to the tibial plafond and medial malleolus. 2. Oblique fracture of the distal fibula with additional nondisplaced fractures in the distal fibular fracture segment. By my electronic signature, I attest that I have personally reviewed the images for this examination and formulated the interpretations and opinions expressed in this report Finalized by Alvarado Wilkins M.D. on 10/12/2018 10:08 PM. Dictated by Rory Mansfield D.O. on 10/12/2018 9:50 PM. Performing Organization Address City/State/Zipcode Phone Number [facility] * ECG-SCAN (10/12/2018 5:30 PM ROUGH CARPENTER) Narrative Performed At Ordered by an unspecified provider. * TIBIA & FIBULA 2 VIEW BILAT (10/12/2018 5:30 PM ROUGH CARPENTER) Impressions Performed At 1.Comminuted and displaced fracture of the distal left tibia diaphysis. [facility] 2.Comminuted and displaced fracture of the distal left fibular diaphysis. 3.No acute fracture of the right tibia/fibula. Approved by Paul Trejo M.D. on 10/13/2018 8:36 AM By my electronic signature, I attest that I have personally reviewed the images for this examination and formulated the interpretations and opinions expressed in this report Finalized by Kings Flores M.D. on 10/13/2018 9:15 AM. Dictated by Paul Trejo M.D. on 10/13/2018 7:11 AM. Narrative Performed At TIBIA & FIBULA 2 VIEW BILAT [facility] CLINICAL HISTORY: Female, 58 years old. FALL. COMPARISON: Same day radiographs and same-day CT left lower extremity. TECHNIQUE: TIBIA & FIBULA 2 VIEW BILAT FINDINGS: Left tibia/fibula: Redemonstration of the comminuted and displaced fracture of the distal left tibial diaphysis with apex posterior angulation and extension to involve the medial malleolus. Comminuted and displaced left distal fibular diaphyseal fracture again noted. Slight bayonet apposition at the dominant obliquely oriented more proximal fibular fracture. A nondisplaced more distal fibular diaphyseal fracture is also noted. Mild soft tissue swelling about the ankle. No radiopaque foreign body. There is slight hyperextension of the left knee which is likely positional. Right tibia/fibula: No acute fracture of the right tibia/fibula is identified. Unremarkable soft tissues. No radiopaque foreign body. Procedure Note Interface, Radiant Results - 10/13/2018 9:18 AM ROUGH CARPENTER TIBIA & FIBULA 2 VIEW BILAT CLINICAL HISTORY: Female, 58 years old. FALL. COMPARISON: Same day radiographs and same-day CT left lower extremity. TECHNIQUE: TIBIA & FIBULA 2 VIEW BILAT FINDINGS: Left tibia/fibula: Redemonstration of the comminuted and displaced fracture of the distal left tibial diaphysis with apex posterior angulation and extension to involve the medial malleolus. Comminuted and displaced left distal fibular diaphyseal fracture again noted. Slight bayonet apposition at the dominant obliquely oriented more proximal fibular fracture. A nondisplaced more distal fibular diaphyseal fracture is also noted. Mild soft tissue swelling about the ankle. No radiopaque foreign body. There is slight hyperextension of the left knee which is likely positional. Right tibia/fibula: No acute fracture of the right tibia/fibula is identified. Unremarkable soft tissues. No radiopaque foreign body. IMPRESSION 1. Comminuted and displaced fracture of the distal left tibia diaphysis. 2. Comminuted and displaced fracture of the distal left fibular diaphysis. 3. No acute fracture of the right tibia/fibula. Approved by Paul Trejo M.D. on 10/13/2018 8:36 AM By my electronic signature, I attest that I have personally reviewed the images for this examination and formulated the interpretations and opinions expressed in this report Finalized by Kings Flores M.D. on 10/13/2018 9:15 AM. Dictated by Paul Trejo M.D. on 10/13/2018 7:11 AM. Performing Organization Address City/State/Zipcode Phone Number [facility] * KNEE 1 OR 2 VIEWS BILATERAL (10/12/2018 5:30 PM R[facility] CARPENTER) Impressions Performed At 1.No acute osseous abnormality involving the bilateral knees. [facility] Approved by Paul Trejo M.D. on 10/13/2018 8:36 AM By my electronic signature, I attest that I have personally reviewed the images for this examination and formulated the interpretations and opinions expressed in this report Finalized by Kings Flores M.D. on 10/13/2018 9:15 AM. Dictated by Paul Trejo M.D. on 10/13/2018 7:14 AM. Narrative Performed At KNEE 1 OR 2 VIEWS BILATERAL [facility] CLINICAL HISTORY: Female, 58 years old. FALL. COMPARISON: Tibia-fibula x-rays from earlier the same day TECHNIQUE: KNEE 1 OR 2 VIEWS BILATERAL FINDINGS: Right knee: Joint spaces are maintained. No acute fracture. Vascular calcifications are noted. No other soft tissue abnormality identified. No radiopaque foreign body. No joint effusion is identified. Left knee: Joint spaces are maintained. No acute fracture is visualized in the [id number]. Vascular calcifications are present. No radiopaque foreign body. No joint effusion is identified. Procedure Note Interface, Radiant Results - 10/13/2018 9:18 AM R[facility] CARPENTER KNEE 1 OR 2 VIEWS BILATERAL CLINICAL HISTORY: Female, 58 years old. FALL. COMPARISON: Tibia-fibula x-rays from earlier the same day TECHNIQUE: KNEE 1 OR 2 VIEWS BILATERAL FINDINGS: Right knee: Joint spaces are maintained. No acute fracture. Vascular calcifications are noted. No other soft tissue abnormality identified. No radiopaque foreign body. No joint effusion is identified. Left knee: Joint spaces are maintained. No acute fracture is visualized in the field-of- view. Vascular calcifications are present. No radiopaque foreign body. No joint effusion is identified. IMPRESSION 1. No acute osseous abnormality involving the bilateral knees. Approved by Paul Trejo M.D. on 10/13/2018 8:36 AM By my electronic signature, I attest that I have personally reviewed the images for this examination and formulated the interpretations and opinions expressed in this report Finalized by Kings Flores M.D. on 10/13/2018 9:15 AM. Dictated by Paul Trejo M.D. on 10/13/2018 7:14 AM. Performing Organization Address City/State/Zipcode Phone Number [facility] * FOOT 2 VIEW BILATERAL (10/12/2018 5:30 PM [facility]) Impressions Performed At 1.Acute nondisplaced fracture of the left fifth metatarsal base. Finding was [facility] discussed with charge nurse, Goran, by Dr. Trejo at 8:38 AM on 10/13/2018. 2.Known distal left tibial fracture better demonstrated on same-day CT and ankle radiographs. 3.No acute osseous abnormality of the right foot. Approved by Paul Trejo M.D. on 10/13/2018 8:39 AM By my electronic signature, I attest that I have personally reviewed the images for this examination and formulated the interpretations and opinions expressed in this report Finalized by Kings Flores M.D. on 10/13/2018 9:15 AM. Dictated by Paul Trejo M.D. on 10/13/2018 7:16 AM. Narrative Performed At FOOT 2 VIEW BILATERAL [facility] CLINICAL HISTORY: Female, 58 years old. FALL. COMPARISON: Same-day left lower extremity CT, same day ankle and tibia/ fibular radiographs TECHNIQUE: FOOT 2 VIEW BILATERAL FINDINGS: Right foot: No acute fracture. Joint spaces are preserved. Unremarkable soft tissues. No radiopaque foreign body. Left foot: The known distal tibial fracture with extension to involve the medial malleolus is better demonstrated on ankle radiographs and same-day left lower extremity CT. There is a nondisplaced transverse fracture involving the fifth metatarsal base. Mild soft tissue swelling of the ankle. No radiopaque foreign body. Procedure Note Interface, Radiant Results - 10/13/2018 9:18 AM ROUGH CARPENTER FOOT 2 VIEW BILATERAL CLINICAL HISTORY: Female, 58 years old. FALL. COMPARISON: Same-day left lower extremity CT, same day ankle and tibia/fibular radiographs TECHNIQUE: FOOT 2 VIEW BILATERAL FINDINGS: Right foot: No acute fracture. Joint spaces are preserved. Unremarkable soft tissues. No radiopaque foreign body. Left foot: The known distal tibial fracture with extension to involve the medial malleolus is better demonstrated on ankle radiographs and same-day left lower extremity CT. There is a nondisplaced transverse fracture involving the fifth metatarsal base. Mild soft tissue swelling of the ankle. No radiopaque foreign body. IMPRESSION 1. Acute nondisplaced fracture of the left fifth metatarsal base. Finding was discussed with charge nurse, Goran, by Dr. Trejo at 8:38 AM on 10/13/2018. 2. Known distal left tibial fracture better demonstrated on same-day CT and ankle radiographs. 3. No acute osseous abnormality of the right foot. Approved by Paul Trejo M.D. on 10/13/2018 8:39 AM By my electronic signature, I attest that I have personally reviewed the images for this examination and formulated the interpretations and opinions expressed in this report Finalized by Kings Flores M.D. on 10/13/2018 9:15 AM. Dictated by Paul Trejo M.D. on 10/13/2018 7:16 AM. Performing Organization Address City/State/Zipcode Phone Number [facility] * ANKLE MIN 3 VIEWS BILATERAL (10/12/2018 5:30 PM [facility]) Impressions Performed At 1.Comminuted and displaced fracture of the distal tibial diaphysis with [facility] extension to involve the medial malleolus. 2.Comminuted and displaced distal left fibular diaphyseal fracture with probable involvement of the tibiofibular syndesmosis. 3.Nondisplaced transverse fracture of the left fifth metatarsal, better demonstrated on dedicated foot radiographs 4.No acute fracture of the right ankle. Approved by Paul Trejo M.D. on 10/13/2018 8:36 AM By my electronic signature, I attest that I have personally reviewed the images for this examination and formulated the interpretations and opinions expressed in this report Finalized by Kings Flores M.D. on 10/13/2018 9:15 AM. Dictated by Paul Trejo M.D. on 10/13/2018 7:01 AM. Narrative Performed At ANKLE MIN 3 VIEWS BILATERAL [facility] CLINICAL HISTORY: Female, 58 years old. FALL. COMPARISON: Left lower extremity CT from 10/12/2018 TECHNIQUE: ANKLE MIN 3 VIEWS BILATERAL FINDINGS: Left: Comminuted fracture of the distal left tibial diaphysis with slight apex posterior angulation. Additional lucency is visualized corresponding to a nondisplaced fracture of the medial malleolus representing a nondisplaced fracture noted on same-day CT. Additionally, there is a comminuted and displaced fracture of the left distal fibular diaphysis. The dominant fracture line is oblique and involves the tibiofibular syndesmosis with medial displacement of the distal fracture fragment. There is also slight bayonet apposition at this site. A nondisplaced fracture of the more distal fibular diaphysis is also noted which also likely involves the tibiofibular syndesmosis. Mild soft tissue swelling. No radiopaque foreign body. Right: No acute fracture. Unremarkable soft tissues. No radiopaque foreign body. Procedure Note Interface, Radiant Results - 10/13/2018 9:18 AM R[facility] CARP[facility] ANKLE MIN 3 VIEWS BILATERAL CLINICAL HISTORY: Female, 58 years old. FALL. COMPARISON: Left lower extremity CT from 10/12/2018 TECHNIQUE: ANKLE MIN 3 VIEWS BILATERAL FINDINGS: Left: Comminuted fracture of the distal left tibial diaphysis with slight apex posterior angulation. Additional lucency is visualized corresponding to a nondisplaced fracture of the medial malleolus representing a nondisplaced fracture noted on same-day CT. Additionally, there is a comminuted and displaced fracture of the left distal fibular diaphysis. The dominant fracture line is oblique and involves the tibiofibular syndesmosis with medial displacement of the distal fracture fragment. There is also slight bayonet apposition at this site. A nondisplaced fracture of the more distal fibular diaphysis is also noted which also likely involves the tibiofibular syndesmosis. Mild soft tissue swelling. No radiopaque foreign body. Right: No acute fracture. Unremarkable soft tissues. No radiopaque foreign body. IMPRESSION 1. Comminuted and displaced fracture of the distal tibial diaphysis with extension to involve the medial malleolus. 2. Comminuted and displaced distal left fibular diaphyseal fracture with probable involvement of the tibiofibular syndesmosis. 3. Nondisplaced transverse fracture of the left fifth metatarsal, better demonstrated on dedicated foot radiographs 4. No acute fracture of the right ankle. Approved by Paul Trejo M.D. on 10/13/2018 8:36 AM By my electronic signature, I attest that I have personally reviewed the images for this examination and formulated the interpretations and opinions expressed in this report Finalized by Kings Flores M.D. on 10/13/2018 9:15 AM. Dictated by Paul Trejo M.D. on 10/13/2018 7:01 AM. Performing Organization Address City/State/Zipcode Phone Number [facility] * PROCEDURAL SEDATION (10/12/2018 4:29 PM [facility]) Narrative Performed At Jeet Tran MD 10/13/20189:39 AM Procedural Sedation Date/Time: 10/12/2018 9:35 AM Performed by: NALDO RILEY Authorized by: NALDO RILEY Consent: Verbal consent obtained. Written consent obtained. Risks and benefits: risks, benefits and alternatives were discussed Consent given by: patient Patient understanding: patient states understanding of the procedure being performed Patient consent: the patient's understanding of the procedure matches consent given Procedure consent: procedure consent matches procedure scheduled Relevant documents: relevant documents present and verified Imaging studies: imaging studies available Patient identity confirmed: verbally with patient, hospital-assigned identification number and arm band Time out: Immediately prior to procedure a "time out" was called to verify the correct patient, procedure, equipment, client application support specialist and site/side marked as required. Indications: fracture reduction Preparations: medications and reversal agents immediately available, pulse oximeter, suctioning equipment available, O2 per nasal cannula, cardiac monitoring, allergies verified, constant attendence by RN until patient recovered and additional MD available for assistance Pre sedation vital signs: I reviewed pre-procedure vital signs Certified physician present: Certified physician observer present for patient monitoring Sedation level: deep Agents: ketamine Sedation vital signs: Vital signs monitored during sedation Complications: No complications Post sedation condition: I have reviewed patient's vital signs and condition is stable Attending Attestation: I personally performed the procedure myself.I was personally responsible for the administration of moderate sedation services during the procedure performed and I confirm requirements described in CPT section on moderate sedation were followed, including the use of an independent trained observer who had no other duties during the procedure.For the drug(s) utilized see nursing log for details. The total [id number] time was 35 minutes. * CTA ABD/PELVIS (10/11/2018 2:18 PM [facility] CARP[facility]) Impressions Performed At 1. Stable CT scan of the abdomen and pelvis without bowel obstruction, acute [facility] inflammatory process, or hemodynamically significant stenosis within the major mesenteric arteries. 2. Stable, mild pelvic lymphadenopathy. Finalized by Leonel Maradiaga D.O. on 10/12/2018 8:00 AM. Dictated by Leonel Maradiaga D.O. on 10/12/2018 7:52 AM. Narrative Performed At CTA of the abdomen and pelvis [facility] Clinical history: Pain abdomen, evaluate for ischemia Technique: Multiple contiguous axial images were obtained through the abdomen and pelvis after the IV administration of Isovue-370 contrast material. Image postprocessing coronal and sagittal reconstructions were obtained from the source axial data. Comparison: September 26, 2018 Findings: Tiny subpleural nodular opacities are redemonstrated within the right lung base which are likely benign in nature. There has been no significant change in the appearance of the abdomen and pelvis since the examination performed 13 days earlier demonstrating prior cholecystectomy, mild pancreatic atrophy, and mild iliac and inguinal lymphadenopathy. The abdominal aorta and iliac arteries are normal in caliber containing trace atherosclerotic calcification. The celiac and superior mesenteric arteries are widely patent. Flow is preserved within the inferior mesenteric artery. Procedure Note Interface, Radiant Results - 10/12/2018 8:03 AM ROUGH CARPENTER CTA of the abdomen and pelvis Clinical history: Pain abdomen, evaluate for ischemia Technique: Multiple contiguous axial images were obtained through the abdomen and pelvis after the IV administration of Isovue-370 contrast material. Image postprocessing coronal and sagittal reconstructions were obtained from the source axial data. Comparison: September 26, 2018 Findings: Tiny subpleural nodular opacities are redemonstrated within the right lung base which are likely benign in nature. There has been no significant change in the appearance of the abdomen and pelvis since the examination performed 13 days earlier demonstrating prior cholecystectomy, mild pancreatic atrophy, and mild iliac and inguinal lymphadenopathy. The abdominal aorta and iliac arteries are normal in caliber containing trace atherosclerotic calcification. The celiac and superior mesenteric arteries are widely patent. Flow is preserved within the inferior mesenteric artery. IMPRESSION 1. Stable CT scan of the abdomen and pelvis without bowel obstruction, acute inflammatory process, or hemodynamically significant stenosis within the major mesenteric arteries. 2. Stable, mild pelvic lymphadenopathy. Finalized by Leonel Maradiaga D.O. on 10/12/2018 8:00 AM. Dictated by Leonel Maradiaga D.O. on 10/12/2018 7:52 AM. Performing Organization Address City/State/Zipcode Phone Number [facility] * ELECTROPHORESIS-SERUM PROTEIN (10/11/2018 11:25 AM [facility]) Total Protein-SEP 5.5 (L) 6.0 - 8.0 G/DL [facility] Albumin % 61.0 48 - 68 % [facility] Alpha 1 % 5.0 2 - 6 % [facility] Alpha 2 % 12.5 5 - 15 % [facility] Beta %,Serum 10.3 9 - 17 % [facility] Gamma % 11.2 9 - 21 % [facility] Interpretation - SEP HYPOALBUMINEMIA [facility] Pathologist Signature INTERPRETED BY CHONG ROYAL [facility] Adam By the PATH SIGNATURE ABOVE, I attest that I have personally formulated the final interpretation expressed in this report and that the above diagnosis is based upon my examination of the slides and/or other material indicated in this report. Specimen Blood Performing Organization Address [facility] Phone Number [facility] [address] [place] [address] * OPIATES 300 OR GREATER-URINE RANDOM (10/10/2018 4:30 PM R[facility] CARP[facility]) Opiates 300 NEG NEG-NEG [facility] Comment: RESULTS WERE OBTAINED BY IMMUNOASSAY AND ARE PRESUMPTIVE ONLY. POSITIVE INDICATES THE PRESENCE OF SUBSTANCE WITH CHARACTERISTICS SIMILAR TO DRUG-DRUG CLASS OR METABOLITE IN CONC. EQUAL TO OR EXCEEDING VALUES LISTED. OPIATES 300 NG/ML Specimen Urine Performing Organization Address [facility] Phone Number [facility] [address] [place] [address] * METHADONE-URINE SCREEN (10/10/2018 4:30 PM ROUGH CARPENTER) Methadone NEG NEG-NEG [facility] Comment: RESULTS WERE OBTAINED BY IMMUNOASSAY AND ARE PRESUMPTIVE ONLY. POSITIVE INDICATES THE PRESENCE OF SUBSTANCE WITH CHARACTERISTICS SIMILAR TO DRUG-DRUG CLASS OR METABOLITE IN CONC. EQUAL TO OR EXCEEDING VALUES LISTED. METHADONE 300 NG/ML Specimen Urine Performing Organization Address [facility] Phone Number [facility] [address] [place] [address] * PHENCYCLIDINES-URINE RANDOM (10/10/2018 4:30 PM ROUGH CARPENTER) Phencyclidine (PCP) NEG NEG-NEG [facility] Comment: RESULTS WERE OBTAINED BY IMMUNOASSAY AND ARE PRESUMPTIVE ONLY. POSITIVE INDICATES THE PRESENCE OF SUBSTANCE WITH CHARACTERISTICS SIMILAR TO DRUG-DRUG CLASS OR METABOLITE IN CONC. EQUAL TO OR EXCEEDING VALUES LISTED. PHENCYCLIDINE (PCP)25 NG/ML Specimen Urine - Urine Performing Organization Address [facility] Phone Number [facility] [address] [place] [address] * OXYCODONE URINE SCREEN (10/10/2018 4:30 PM ROUGH CARPENTER) Oxycodone, Urine NEG NEG-NEG [facility] Comment: RESULTS WERE OBTAINED BY IMMUNOASSAY AND ARE PRESUMPTIVE ONLY. POSITIVE INDICATES THE PRESENCE OF SUBSTANCE WITH CHARACTERISTICS SIMILAR TO DRUG-DRUG CLASS OR METABOLITE IN CONC. EQUAL TO OR EXCEEDING VALUES LISTED. OXYCODONE 300 NG/ML Specimen Urine - Urine Performing Organization Address [facility] Phone Number [facility] [address] [place] [address] * COCAINE-URINE RANDOM (10/10/2018 4:30 PM R[facility] CARPENTER) Cocaine-Urine NEG NEG-NEG [facility] Comment: RESULTS WERE OBTAINED BY IMMUNOASSAY AND ARE PRESUMPTIVE ONLY. POSITIVE INDICATES THE PRESENCE OF SUBSTANCE WITH CHARACTERISTICS SIMILAR TO DRUG-DRUG CLASS OR METABOLITE IN CONC. EQUAL TO OR EXCEEDING VALUES LISTED. COCAINE 300 NG/ML Specimen Urine - Urine Performing Organization Address [facility] Phone Number [facility] [address] [place] [address] * CANNABINOIDS-URINE RANDOM (10/10/2018 4:30 PM ROUGH CARPENTER) THC NEG NEG-NEG [facility] Comment: RESULTS WERE OBTAINED BY IMMUNOASSAY AND ARE PRESUMPTIVE ONLY. POSITIVE INDICATES THE PRESENCE OF SUBSTANCE WITH CHARACTERISTICS SIMILAR TO DRUG-DRUG CLASS OR METABOLITE IN CONC. EQUAL TO OR EXCEEDING VALUES LISTED. CANNABINOIDS 50 NG/ML Specimen Urine - Urine Performing Organization Address [facility] Phone Number [facility] [address] [place] [address] * BENZODIAZEPINES-URINE RANDOM (10/10/2018 4:30 PM ROUGH CARPENTER) Benzodiazepines POS (A) NEG-NEG [facility] Comment: RESULTS WERE OBTAINED BY IMMUNOASSAY AND ARE PRESUMPTIVE ONLY. POSITIVE INDICATES THE PRESENCE OF SUBSTANCE WITH CHARACTERISTICS SIMILAR TO DRUG-DRUG CLASS OR METABOLITE IN CONC. EQUAL TO OR EXCEEDING VALUES LISTED. BENZODIAZEPINES 200 NG/ML Specimen Urine - Urine Performing Organization Address [facility] Phone Number [facility] [address] [place] [address] * BARBITURATES-URINE RANDOM (10/10/2018 4:30 PM R[facility] CARPENTER) Barbiturates,Urine NEG NEG-NEG [facility] Comment: RESULTS WERE OBTAINED BY IMMUNOASSAY AND ARE PRESUMPTIVE ONLY. POSITIVE INDICATES THE PRESENCE OF SUBSTANCE WITH CHARACTERISTICS SIMILAR TO DRUG-DRUG CLASS OR METABOLITE IN CONC. EQUAL TO OR EXCEEDING VALUES LISTED. BARBITURATES 200 NG/ML Specimen Urine - Urine Performing Organization Address [facility] Phone Number [facility] [address] [place] [address] * AMPHETAMINES-URINE RANDOM (10/10/2018 4:30 PM ROUGH CARPENTER) Amphetamines POS (A) NEG-NEG MAIN LAB Comment: RESULTS WERE OBTAINED BY IMMUNOASSAY AND ARE PRESUMPTIVE ONLY. POSITIVE INDICATES THE PRESENCE OF SUBSTANCE WITH CHARACTERISTICS SIMILAR TO DRUG-DRUG CLASS OR METABOLITE IN CONC. EQUAL TO OR EXCEEDING VALUES LISTED. AMPHETAMINES 1000 NG/ML Specimen Urine - Urine Performing Organization [facility] Phone Number MAIN LAB [address] [place] [address] * C DIFFICILE BY PCR (10/10/2018 4:55 AM ROUGH CARPENTER) Battery Name C DIFFICILE PCR MAIN LAB Specimen Description FECES MAIN LAB Special Requests NONE MAIN LAB C. Difficile Toxin B PCR NEGATIVE-wait 7 days to repeat MAIN LAB test Report Status FINAL MAIN LAB 10/10/2018 Specimen Feces Performing Organization [facility] Phone Number MAIN LAB [address] [place] [address] * LEUKOCYTES, FECAL (10/10/2018 4:55 AM ROUGH CARPENTER) Battery Name FECAL LEUKOCYTES MAIN LAB Specimen Description FECES MAIN LAB Special Requests NONE MAIN LAB Fecal Leukocytes NEGATIVE BY LACTOFERRIN MAIN LAB Report Status FINAL MAIN LAB 10/10/2018 Specimen Stool - Feces Performing Organization [facility] Phone Number MAIN LAB [address] [place] [address] * CULTURE-FECES W/SENSITIVITY (10/10/2018 4:55 AM ROUGH CARPENTER) Battery Name STOOL CULTURE MAIN LAB Specimen Description FECES MAIN LAB Special Requests NONE MAIN LAB Culture NO SALMONELLA, SHIGELLA, MAIN LAB CAMPYLOBACTER, AEROMONAS, OR PLESIOMONAS SHIGA TOXIN NOT DETECTED Report Status FINAL MAIN LAB 10/13/2018 Specimen Stool - Feces Performing Organization [facility] Phone Number MAIN LAB [address] [place] [address] * CRYPTOSPORIDUM,FECAL (10/10/2018 4:55 AM ROUGH CARPENTER) Battery Name CRYPTOSPORIDIUM MAIN LAB Specimen Description FECES MAIN LAB Special Requests NONE MAIN LAB Cryptosporidium NEGATIVE FOR CRYPTOSPORIDIUM [facility] MAIN LAB Report Status FINAL [facility] MAIN LAB 10/10/2018 Specimen Stool - Feces Performing Organization Address [facility] Phone Number [facility] LAB [address] [place] [address] * GLUCOSE METER DOWNLOAD (10/08/2018) Narrative Performed At Performing Organization Address [facility] Phone Number [facility] * POC HEMOGLOBIN A1C (10/08/2018) Poc Hemoglobin A1C 8.5 % IN CLINIC Specimen Blood Performing Organization Address [facility] Phone Number IN CLINIC * POC GLUCOSE (10/08/2018) Glucose POC 380 (A) 65 - 110 mg/dL IN CLINIC Specimen Blood - Blood Performing Organization Address [facility] Phone Number IN CLINIC * TELEMETRY STRIPS-SCAN (10/07/2018 1:02 PM ROUGH CARPENTER) Narrative Performed At Ordered by an unspecified provider. * CYTOGENETICS SCAN (10/04/2018 4:06 PM ROUGH CARPENTER) Narrative Performed At Ordered by an unspecified provider. * TELEMETRY STRIPS-SCAN (10/03/2018 2:01 PM ROUGH CARPENTER) Narrative Performed At Ordered by an unspecified provider. * CHROMOSOMES FISH DNA PROBE-BLOOD (10/02/2018 1:00 PM ROUGH CARPENTER) Chromosomes Fish DNA SEE FINISHER SCREWDOWN FOR REPORT MAIN LAB Probe-Blood Specimen Blood Performing Organization Address [facility] Phone Number MAIN LAB [address] [place] [address] * IMMUNOGLOBULINS-IGA,IGG,IGM (10/02/2018 12:40 PM ROUGH CARPENTER) IgG 566 (L) 762 - 1,488 MG/DL [facility] MAIN LAB IgA 142 70 - 390 MG/DL [facility] MAIN LAB IgM 59 38 - 328 MG/DL MAIN LAB Specimen Blood Performing Organization Address [facility] Phone Number MAIN LAB [address] [place] [address] * LDH-LACTATE DEHYDROGENASE (10/02/2018 12:40 PM ROUGH CARPENTER) Only the most recent of 3 results within the time period is included. Lactate Dehydrogenase 174 100 - 210 U/L [facility] Specimen Blood Performing Organization Address City/[facility]/Zipcode Phone Number [facility] [address] [place] [address] * BETA 2 MICROGLOBULIN (10/02/2018 12:40 PM ROUGH CARPENTER) B2 Microglobulin 2.4 (H) 0.8 - 2.3 MG/L [facility] Specimen Blood Performing Organization Address [facility] Phone [facility] [address] [place] [address] * DIRECT ANTIGLOBULIN TEST(TITO) (09/27/2018 11:14 AM ROUGH CARPENTER) TITO, Broad Spectrum NEG [facility] Dash ABO/RH(D) A POS [facility] Specimen Blood Performing Organization Address [facility] Phone Number [facility] [address] [place] [address] * PERIPHERAL SMEAR (09/27/2018 11:14 AM ROUGH CARPENTER) Peripheral Smear NORMAL RBC COUNTS WITH [facility] ANISOCYTOSIS WHITE CELLS AND PLATELETS APPEAR NORMAL IN NUMBER AND MORPHOLOGY. CIRCULATING NEOPLASTIC B CELLS IN September SPECIMEN (FLOW REPORT [id number]) IS NOTED Pathologist Signature INTERPRETED BY LAURENCE RICHARDSON M.D. [facility] By the PATH SIGNATURE ABOVE, I attest that I have personally formulated the final interpretation expressed in this report and that the above diagnosis is based upon my examination of the slides and/or other material indicated in this report. Specimen Blood Performing Organization Address [facility] Phone Number [facility] [address] [place] [address] * HAPTOGLOBIN (09/27/2018 11:14 AM ROUGH CARPENTER) Haptoglobin 97 16 - 200 MG/DL [facility] Specimen Blood Performing Organization Address [facility] Phone Number [facility] [address] [place] [address] * SURGICAL PATHOLOGY (09/26/2018 5:17 PM ROUGH CARPENTER) PATHOLOGY REPORT [facility] [email or web address] Department of Pathology and Laboratory Medicine [address] [place] [address] Surgical Pathology Office:[phone] :[phone] SURGICAL PATHOLOGY REPORT NAME: CHELSEA LIN SURG PATH #: [id number] MR #: [id number] SPECIMEN CLASS: SR BILLING #: [id number] ALT ID #:LOCATION: DISCHARGED DATE OF PROCEDURE: 09/26/2018 AGE:58 SEX: F DATE RECEIVED: 09/27/2018 : 1960TIME RECEIVED:08: PHYSICIAN: KYMBERLY US MD DATE OF REPORT: 09/30/2018 COPY TO:DATE OF PRINTIN09/30/2018 ############################## ############################## ############ Final Diagnosis: A. Small intestinal mucosa, "duodenal biopsy r/o eosinophilic enteritis", biopsy: No diagnostic abnormality Eosinophils are not increased B. Gastric mucosa, "gastric biopsy r/o H pylori, eosinophilic gastroenteritis", biopsy: Antral and oxyntic mucosa with mild reactive/chemical gastropathy. Eosinophils are not increased No H. pylori-like organisms are identified on H and E stains Attestation: By this signature, I attest that I have personally formulated the final interpretation expressed in this report and that the above diagnosis is based upon my examination of the slides and/or other material indicated in this report. +++ +++ ashwinw/09/27/2018 ############################## ############################## ############ Material Received: A: duodenal biopsy r/o eosinophilic enteritis B: gastric biopsy r/o H pylori, esosinophilic gastroenteritis History: 58-year-old female with history of stomach ache. A. Rule out eosinophilic enteritis: B. Rule out H pylori, eosinophilic gastroenteritis: Gross Description: A.Received in formalin labeled "duodenum, rule out eosinophilic enteritis" is a 0.5 x 0.3 x 0.2 cm aggregate of hodges-brown soft tissue fragments. The specimen is entirely submitted in cassette A1.(tn) B.Received in formalin labeled "gastric, rule out H pyloric, eosinophilic gastroenteritis" is a 0.7 x 0.6 x 0.4 cm aggregate of hodges-brown soft tissue fragments. The specimen is entirely submitted in cassette B1.(tn) hodges/09/27/2018 Performing Organization Address City/State/Zipcode Phone Number [facility] LAB RESULTS * FLOW CYTOMETRY (09/26/2018 5:14 PM ROUGH CARPENTER) Only the most recent of 2 results within the time period is included. PATHOLOGY REPORT [facility] [employer] [facility] [email or web address] Dave Roberson MD, Director of Flow Cytometry Laboratory Department of Pathology and Laboratory Medicine [address] [place] [address] Surgical Pathology Office:[phone] :[phone] FLOW CYTOMETRY REPORT NAME: CHELSEA LIN SURG PATH #: [id number] MR #: [id number] SPECIMEN CLASS: LC BILLING #: [id number] ALT ID #:LOCATION: [id number] DATE OF PROCEDURE: 09/26/2018 AGE:58 SEX: F DATE RECEIVED: 09/26/2018 : 1960TIME RECEIVED:18:38 PHYSICIAN: KYMBERLY US MD DATE OF REPORT: 09/27/2018 [facility] JUSTIN Sutton MD NATHAN M SANDERSE, MD DATE OF PRINTIN09/27/2018 Material Received: A: gastric tissue biopsy History: 58-year-old female ############################## ############################## ############ Final Diagnosis: Gastric tissue biopsy, flow cytometry: Negative immunophenotypic study Interpretation: Lymphocytes comprise 85% of total events.The majority are T cells with a reduced CD4:CD8 ratio and normal antigen expression.B cells are nearly absent.There is no immunophenotypic evidence of non-Hodgkin lymphoma. Attestation: By this signature, I attest that I have personally formulated the final interpretation expressed in this report and that the above diagnosis is based upon my examination of the slides and/or other material indicated in this report. +++Electronically Signed Out By+++ ghada/09/26/2018 Interpreted by: Dave Roberson MD 09/27/2018 ############################## ############################## ############ Lab Data: Flow Cytometry - Lymphoma Panel B Cell Associated Markers (% Positive Cells): CD19=1; CD19+CD5+=1; CD20=1; CD23=1; CD23+CD5+=1; Opal=0; Lambda=1; Opal:Lambda ratio=na T Cell Associated Markers (% Positive Cells): CD2=93; CD3=85; CD4=15; CD5=80; CD7=94; CD8=65 CD4:CD8 ratio=0.2 Miscellaneous Markers (% Positive Cells): CD1d=0; CD10=0; CD34=0; CD38=57; DP49=492; CD56=35; FMC7=0; FE063=7 Cell Viability (%): 82 Number of Cells Analyzed:72504 Total Number of Markers: 19 Summary of Marker Combinations: Opal/Lambda/5/19/38/45/10/20; FMC7/23/200/34/1d/45//; 2/7/5/3/4/45/56/8 This test was developed and its performance characteristics determined by the [facility] Flow Cytometry Laboratory.It has not been cleared or approved by the U.S. Food and Drug Administration (FDA).The FDA has determined that such clearance or approval is not necessary. Performing Organization Address City/State/Zipcode Phone Number LAB RESULTS * LEUKEMIA/LYMPHOMA PANEL FLUID/TISSUE (09/26/2018 5:14 PM ROUGH CARPENTER) Only the most recent of 2 results within the time period is included. Leuk/Lymph Interpretation SEE PATHOLOGY REPORT MAIN LAB Specimen/LLM TISSUE MAIN LAB Specimen Tissue Performing Organization Address City/State/Zipcode Phone Number MAIN LAB [address] [place] [address] * EGD REPORT (09/26/2018 3:43 PM ROUGH CARPENTER) Provation Report Patient Name: Issa OSWALD OTHER RESULTS [place] Procedure Date: 09/26/2018 3:43 PM CSN: [id number] Date of : 1960 Gender: Female Attending Physician: Kymberly Us MD Procedure: Upper GI endoscopy Indications: Generalized abdominal pain Providers: Kymberly Us MD (Doctor), Ghazal Rhodes RN (Nurse), Tushar Vergara (Director Blood Bank) Referring Physician: Khang Morrison Medications: Monitored Anesthesia Care Complications: No immediate complications. Procedure: Pre-Anesthesia Assessment: - Prior to the procedure, a History and Physical was performed, and patient medications and allergies were reviewed. The patient's tolerance of previous anesthesia was also reviewed. The risks and benefits of the procedure and the sedation options and risks were discussed with the patient. All questions were answered, and informed consent was obtained. Prior Anticoagulants: The patient has taken no previous anticoagulant or antiplatelet agents. ASA Grade Assessment: III - A patient with severe systemic disease. After reviewing the risks and benefits, the patient was deemed in satisfactory condition to undergo the procedure. After obtaining informed consent, the endoscope was passed under direct vision. Throughout the procedure, the patient's blood pressure, pulse, and oxygen saturations were monitored continuously. The Endoscope 6601 was introduced through the mouth, and advanced to the second part of duodenum. The upper GI endoscopy was accomplished without difficulty. The patient tolerated the procedure well. Findings: The Z-line was regular and was found 39 cm from the incisors. The examined esophagus was normal. Patchy mildly erythematous mucosa without bleeding was found in the entire examined stomach. Biopsies were taken with a cold forceps for histology. Estimated blood loss was minimal. The examined duodenum was normal. Biopsies were taken with a cold forceps for histology. Estimated blood loss was minimal. Impression: - Z-line regular, 39 cm from the incisors. - Normal esophagus. - Erythematous mucosa in the stomach. Biopsied. - Normal examined duodenum. Biopsied. Estimated Blood Loss: Estimated blood loss: none. Recommendation: - Patient has a contact number available for emergencies. The signs and symptoms of potential delayed complications were discussed with the patient. Return to normal activities tomorrow. Written discharge instructions were provided to the patient. - Resume previous diet. - Continue present medications. - Await pathology results. Scope In: 5:06:37 PM Scope Out: 5:14:49 PM Total Procedure Duration Time 0 hours 8 minutes 12 seconds Procedure Code(s): --- Professional --- 38256, Esophagogastroduodenoscopy, flexible, transoral; with biopsy, single or multiple Diagnosis Code(s): --- Professional --- K31.89, Other diseases of stomach and duodenum R10.84, Generalized abdominal pain CPT copyright 2016 [employer]. All rights reserved. The codes documented in this report are preliminary and upon risk compliance manager review may be revised to meet current compliance requirements. Attending Participation: I was present and participated during the entire procedure, including non-ortega portions. GLORIA Rivera MD 09/26/2018 5:16:55 PM The attending physician has electronically signed and finalized this document. Number of Addenda: 0 Note Initiated On: 09/26/2018 3:43 PM Performing Organization Address City/State/Zipcode Phone Number [facility] OTHER RESULTS * CT ABD/PELV W CONTRAST (09/26/2018 12:14 PM ROUGH CARPENTER) Impressions Performed At 1. No abdominopelvic inflammatory mass, bowel obstruction, or ascites. [facility] RAD RESULTS 2. Unchanged indeterminate mild pelvic lymphadenopathy, not significantly changed since at least 07/19/2018. Consider follow-up CT in 6 months to evaluate for continued stability. 3. Previous cholecystectomy with unchanged mild biliary ductal ectasia. Finalized by REYNA SIBLEY M.D. on 09/26/2018 12:29 PM. Dictated by REYNA SIBLEY M.D. on 09/26/2018 12:18 PM. Narrative Performed At CT ABDOMEN AND PELVIS [facility] RAD RESULTS Clinical Indication:Female, 58 years old. Acute epigastric pain with recent EGD. Technique:Multiple contiguous axial images were obtained through the abdomen and pelvis following the administration of IV contrast material. Post processing coronal and sagittal reconstruction images were made from the axial images. IV contrast: Isovue-370 Bowel contrast:None Comparison: CT abdomen pelvis on 09/16/2018. FINDINGS: Lower Thorax: Unremarkable. Liver and Biliary system: Liver is normal in size. Unchanged nodular masslike low-attenuation adjacent to the falciform ligament most compatible with focal steatosis or benign perfusion alteration. No enhancing hepatic mass. Previous cholecystectomy. Unchanged mild biliary ductal ectasia. Spleen: Unremarkable. Adrenal Glands and Kidneys: Unremarkable. Pancreas and Retroperitoneum: Mild pancreatic atrophy. No retroperitoneal lymphadenopathy. Aorta and Major Vessels: Normal caliber abdominal aorta. Trace atherosclerotic plaque. Retroaortic left renal vein. Bowel, Mesentery and Peritoneal space: Unremarkable. Occasional distal colonic diverticula. Normal appendix. Pelvis: Urinary bladder incompletely distended and not well evaluated. Uterus absent. Vaginal cuff grossly unremarkable. No significant change in size of mild external iliac and inguinal lymphadenopathy. Previously measured left external iliac lymph node has a short axis of 1.4 cm (series 2 image 73) previously 1.6 cm on 09/16/2018 and 1.6 cm on 07/19/2018. No new or enlarging lymphadenopathy. Abdominal wall and Osseous Structures: No destructive osseous lesion. Procedure Note Interface, Radiant Results - 09/26/2018 12:[address] ABDOMEN AND PELVIS Clinical Indication: Female, 58 years old. Acute epigastric pain with recent EGD. Technique: Multiple contiguous axial images were obtained through the abdomen and pelvis following the administration of IV contrast material. Post processing coronal and sagittal reconstruction images were made from the axial images. IV contrast: Isovue-370 Bowel contrast: None Comparison: CT abdomen pelvis on 09/16/2018. FINDINGS: Lower Thorax: Unremarkable. Liver and Biliary system: Liver is normal in size. Unchanged nodular masslike low-attenuation adjacent to the falciform ligament most compatible with focal steatosis or benign perfusion alteration. No enhancing hepatic mass. Previous cholecystectomy. Unchanged mild biliary ductal ectasia. Spleen: Unremarkable. Adrenal Glands and Kidneys: Unremarkable. Pancreas and Retroperitoneum: Mild pancreatic atrophy. No retroperitoneal lymphadenopathy. Aorta and Major Vessels: Normal caliber abdominal aorta. Trace atherosclerotic plaque. Retroaortic left renal vein. Bowel, Mesentery and Peritoneal space: Unremarkable. Occasional distal colonic diverticula. Normal appendix. Pelvis: Urinary bladder incompletely distended and not well evaluated. Uterus absent. Vaginal cuff grossly unremarkable. No significant change in size of mild external iliac and inguinal lymphadenopathy. Previously measured left external iliac lymph node has a short axis of 1.4 cm (series 2 image 73) previously 1.6 cm on 09/16/2018 and 1.6 cm on 07/19/2018. No new or enlarging lymphadenopathy. Abdominal wall and Osseous Structures: No destructive osseous lesion. IMPRESSION 1. No abdominopelvic inflammatory mass, bowel obstruction, or ascites. 2. Unchanged indeterminate mild pelvic lymphadenopathy, not significantly changed since at least 07/19/2018. Consider follow-up CT in 6 months to evaluate for continued stability. 3. Previous cholecystectomy with unchanged mild biliary ductal ectasia. Finalized by REYNA SIBLEY M.D. on 09/26/2018 12:29 PM. Dictated by REYNA SIBLEY M.D. on 09/26/2018 12:18 PM. Performing Organization Address [facility] Phone Number RAD RESULTS * IRON + BINDING CAPACITY + %SAT+ FERRITIN (09/26/2018 4:00 AM ROUGH CARPENTER) Iron 41 (L) 50 - 160 MCG/DL [facility] MAIN LAB Iron Binding-TIBC 323 270 - 380 MCG/DL [facility] MAIN LAB % Saturation 13 (L) 28 - 42 % [facility] MAIN LAB Ferritin 22 10 - 200 NG/ML [facility] MAIN LAB Specimen Blood Performing Organization Address [facility] Phone Number MAIN LAB [address] [place] [address] * HEPATITIS B CORE AB TOT (IGG+IGM) (09/26/2018 4:00 AM ROUGH CARPENTER) Anti HBc Total NEG [facility] MAIN LAB Specimen Blood Performing Organization Address [facility] Phone Number MAIN LAB [address] [place] [address] * URIC ACID (09/26/2018 4:00 AM ROUGH CARPENTER) Uric Acid <1.5 (L) 2.0 - 7.0 MG/DL [facility] MAIN LAB Specimen Blood Performing Organization Address [facility] Phone Number MAIN LAB [address] [place] [address] from Last 3 Months Insurance Payer Benefit Subscriber ID Type Phone Address Plan / Group MEDICARE MEDICARE xxxxxxxxxxx Medicare PART A AND B AETNA MEDICAID AETNA xxxxxxxxxxx [facility] Advance Directives Patient has advance care planning documents, and code status on file. For more information, please contact: [facility] [address] [place] [address] Date Inactivated Comments Code Status Date Activated 11/20/2018 4:16 PM Full Code 11/15/2018 7:37 PM Provider has discussed Code Status Yes w/Patient or Family? 10/18/2018 6:01 PM Full Code 10/12/2018 9:05 PM Provider has discussed Code Status Yes w/Patient or Family? 10/12/2018 1:12 PM Full Code 10/09/2018 4:49 PM Provider has discussed Code Status Yes w/Patient or Family? 09/27/2018 4:33 PM Full Code 09/18/2018 1:09 AM Provider has discussed Code Status Yes w/Patient or Family? 07/22/2018 8:48 PM Full Code 07/19/2018 6:18 AM Provider has discussed Code Status Yes w/Patient or Family?
--- OUTSIDE RECORDS SUMMARY | 2018-12-27 17:51 | XMS REPORT | Encounter Summary ---
Author Author [facility] Organization [facility] Address Unknown Phone Unavailable Care Team Providers Care School Nurse Name Role Phone Charles Chau MD Unavailable Migue Patton MD PCP Aleah Broussard 20 Unavailable Reason for Referral * Consult, Test & Treat (Routine) Referred By Contact Referred To Contact Status Reason Specialty Diagnoses / Procedures Gunnar Kirk MD [address] [place] [address] [facility] [address] [place] [address] Closed Specialty Services Gastroenterology Diagnoses Required Abdominal pain, unspecified abdominal location Delayed gastric emptying Gastroparesis diabeticorum (HCC) Scheduling Instructions Please call pt to schedule. Thanks Reason for Visit * Reason Comments Nausea Encounter Details Care Team Description Date Type Department Gunnar Kirk MD [address] [place] [address] Abdominal pain, unspecified abdominal location (Primary Dx) ; Delayed gastric emptying; Gastroparesis diabeticorum (HCC) 11/22/2018 Office Visit [facility] Physicians [address] [place] [address] Ortho [place] [address] Social History Date Tobacco Use Types Packs/Day Years Used Never Smoker Smokeless Tobacco: Never Used Alcohol Use Drinks/Week oz/Week Comments No Sex Assigned at Date Recorded Not on file Industry Job Start Date Occupation Not on file Not on file Not on file Travel End Travel History Travel Start No recent travel history available. as of this encounter Last Filed Vital Signs Time Taken Vital Sign Reading 11/22/2018 2:37 PM COMMUNICATION AND OUTREACH MANAGER Blood Pressure 114/73 11/22/2018 2:37 PM COMMUNICATION AND OUTREACH MANAGER Pulse 88 - Temperature - - Respiratory Rate - - Oxygen Saturation - - Inhaled Oxygen - Concentration 11/22/2018 2:37 PM COMMUNICATION AND OUTREACH MANAGER Weight 62.6 kg (138 lb) 11/22/2018 2:37 PM COMMUNICATION AND OUTREACH MANAGER Height 165.1 cm (5' 5") 11/22/2018 2:37 PM COMMUNICATION AND OUTREACH MANAGER Body Mass Index 22.96 in this encounter Functional Status Date of Assessment Functional Status Response 11/15/2018 Does the patient have a hearing impairment: No 10/18/2018 Does the patient have a visual impairment: No 10/18/2018 Does the patient have impaired ambulation: Yes 10/18/2018 Does the patient have an activity of daily living Yes (ADL) impairment: 10/18/2018 Does the patient have an instrumental activity of Yes daily living (IADL) impairment: Date of Assessment Cognitive Status Response 10/18/2018 Does the patient have a cognitive impairment: No as of this encounter Patient Instructions * Patient Instructions* Nanette Piedra RN - 11/22/2018 3:00 PM COMMUNICATION AND OUTREACH MANAGER * EGD has been ordered for you at [facility]. They will call you to schedule. Please call Dr. Kirk's nurse at [phone] if you have any questions or concerns. General Instructions: To have a medication refilled: Please use the [employer] Refill request or contact your pharmacy directly to request medication refills. Please allow 72 hours. [facility] Lab is on the 1st floor. It is open from 7 am-6pm Sunday-Sunday and 6:30am-7pm on Mondays, and 7 am - Noon on Saturdays [facility] Lab is located on the 2nd floor and is open 8 am-5 pm Sunday-Sunday [facility] lab is located next to the check out desk and is open from 8 AM to 4:45 PM Sunday through Sunday. Radiology is on the 2nd floor of the Medical Office Building and the 2nd Floor of [facility]. Radiology Scheduling can be reached at To Schedule office visits: Call [phone]. For procedure scheduling questions at the Main [place] or [place] please call ; for a procedure at [facility] please call . To receive appointment reminders on your cell phone: Make sure we have your cell phone number, and Text [facility] to [phone]. Support for many chronic illnesses is available through [place]: [employer] or [phone]. For urgent questions on nights, weekends or holidays, call the Field Specialist at [phone], and ask for the doctor director of admissions for Gastroenterology.Call [phone] for any emergencies. UNICATION AND OUTREACH MANAGER in this encounter Progress Notes * Gunnar Kirk MD - 11/22/2018 3:00 PM COMMUNICATION AND OUTREACH MANAGER Date of Service: 11/22/2018 Subjective: Chelsea Castillo is a 58 y.o. female. History of Present IllnessFollow-up visit after discharge from hospital for history of intractable nausea/vomiting, severe gastroparesis. Past medical history significant for CLL, not on chemotherapy as of yet, seizure disorder and type 1 diabetes as well as gastroparesis. Complaining of daily nausea, with severe episode of nausea/vomiting frequently 3 -4 times a month. Abdominal pain is mild, crampy, mostly periumbilical, does not have correlation with certain foods although increase after large meals. Bowel movement became more regular lately. Extensive workup showed mostly delayed gastric emptying associated with diabetes type 1. Tried different medication including Reglan, stop due to concern of side effect. Currently on Zofran as needed and scopolamine patch. She continues on morphine from her fracture and ORIF surgery. 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 Musculoskeletal: Positive for arthralgias. Neurological: Positive for headaches. Psychiatric/Behavioral: The patient is nervous/anxious. All other systems reviewed and are negative. Objective: acetaminophen (TYLENOL) 325 mg tablet Take two tablets by mouth every 6 hours. acetaminophen/lidocaine/antacid DS(#) (GI COCKTAIL) 1:1:3 Take 30 mL by mouth four times daily as needed. ALPRAZolam (XANAX) 1 mg tablet Take 1 mg by mouth twice daily as needed for Anxiety. atorvastatin (LIPITOR) 40 mg tablet Take 40 mg by mouth daily. carBAMazepine (TEGRETOL) 200 mg tablet Take 200 mg by mouth twice daily. cetirizine (ZYRTEC) 10 mg tablet Take 10 mg by mouth every morning. cholecalciferol(+) (VITAMIN D-3) 5,000 unit tablet Take 5,000 Units by mouth daily. coenzyme Q10(+) 100 mg cap Take one capsule by mouth twice daily. dicyclomine (BENTYL) 10 mg capsule Take one capsule by mouth before meals and at bedtime. (Patient taking differently: Take 10 mg by mouth before meals and at bedtime.) duloxetine DR (CYMBALTA) 30 mg capsule Take one capsule by mouth twice daily. ferrous gluconate (FERGON) 240 mg (27 mg iron) tablet Take one tablet by mouth daily. fesoterodine ER(+) (TOVIAZ) 4 mg tablet Take 4 mg by mouth daily. fludrocortisone (FLORINEF) 0.1 mg tablet Take 0.1 mg by mouth twice daily. fluticasone (FLONASE) 50 mcg/actuation nasal spray Apply 1 spray to each nostril as directed daily as needed. Shake bottle gently before using. glucagon,human recombinant (GLUCAGEN DIAGNOSTIC KIT IJ) Inject 1 Units to area(s) as directed as Needed. insulin aspart U-100 (NOVOLOG FLEXPEN) 100 unit/mL injection PEN Inject four Units under the skin three times daily after meals. insulin degludec (TRESEBA SOLOSTAR) 100 unit/mL (3 mL) injection pen Inject 14 Units under the skin at bedtime daily. levocarnitine(+) (LEVOCARNITINE(+)) 500 mg tablet Take four tablets by mouth twice daily. (Patient taking differently: Take 1 tablet by mouth daily.) levothyroxine (SYNTHROID) 175 mcg tablet Take 175 mcg by mouth daily 30 minutes before breakfast. montelukast (SINGULAIR) 10 mg tablet Take 10 mg by mouth at bedtime daily. morphine IR (MS-IR) 15 mg tablet Take 15 mg by mouth every 6 hours as needed for Pain onabotulinumtoxinA (BOTOX IJ) Inject to area(s) as directed. Every 3 months for headaches. ondansetron (ZOFRAN) 4 mg tablet Take 4 mg by mouth every 8 hours as needed for Nausea or Vomiting. pantoprazole DR (PROTONIX) 40 mg tablet Take 40 mg by mouth daily. potassium chloride SR (K-DUR) 10 mEq tablet Take 10 mEq by mouth daily. Take with a meal and a full glass of water. pregabalin (LYRICA) 150 mg capsule Take 150 mg by mouth twice daily. pyridoxine (VITAMIN B-6) 50 mg tablet Take one tablet by mouth daily. rizatriptan (MAXALT) 10 mg tablet Take 10 mg by mouth once as needed for Headache. May repeat in 2 hours if needed scopolamine (TRANSDERM-SCOP) 1.5 mg 3 day patch Apply one patch to top of skin as directed every 72 hours. sucralfate(+) (CARAFATE) 100 mg/mL oral suspension Take 10 mL by mouth before meals and at bedtime. tiZANidine (ZANAFLEX) 4 mg tablet Take 4 mg by mouth at bedtime daily. vitamins, B complex tab Take one tablet by mouth daily. vitamins, multiple tablet Take 1 tablet by mouth daily. zolpidem (AMBIEN) 10 mg tablet Take 10 mg by mouth at bedtime as needed for Sleep. Vitals: 11/22/18 1437 Height: 165.1 cm (65") Body mass index is 24.81 kg/m. Physical Exam Constitutional: She is oriented to person, place, and time. She appears well- developed and well-nourished. Neurological: She is alert and oriented to person, place, and time. Psychiatric: She has a normal mood and affect. Her behavior is normal. Assessment and Plan: 58-year old female with history of diabetes type I, recently diagnosed CLL, and severe gastroparesis. Nausea/vomiting: Mainly associated with severe delayed gastric emptying/ diabetes gastroparesis. Due to severe gastroparesis, she tried several medication with no significant improvement, currently on a scopolamine patch and Zofran. I did discuss about possibility of temporary relief by injecting Botox into the pylorus for history of diabetic gastroparesis. Patient and her are in agreement, will schedule EGD with Botox into pylorus. Temporary relief for upto 3 months, need for repeat Botox, also minimal topical side effect including hematoma has been discussed with the patient and her , they both verbalized understanding and agreed. Adding another class of medication including domperidone- not available in the [place], and [place], side effect compared to Reglan, and does not cross the blood-brain barrier discussed with patient and her , they are not willing to pursue domperidone at this time. . Discussed with the patient to refer to Dr. Larry's for possibility to be eligible for ongoing research of diabetic gastroparesis. Try to wean off narcotic. Avoid anticholinergic, any medication can delay gastric emptying. Gastroparesis diet. Follow-up in GI clinic in 3 months with BLAYNE Alonso. Plan of care discussed in detail with patient and her , they both verbalized understanding and agreed. Total face to face time spent with patient: 30 minutes with >50% of that time spent counseling the patient on medications, prior study results related to symptoms, differential diagnosis, and options regarding the plan of care. Thank you very much for the consult, and for allowing me to participate in this patient's care. This note was in part completed with [employer], a voice recognition software. Some grammatical errors may have occurred. If you have concerns,please contact my office for clarification. UNICATION AND OUTREACH MANAGER in this encounter Plan of Treatment Care Team Description Date Type Specialty Gunnar Kirk MD [address] [place] [address] [phone] Delayed gastric emptying 02/03/2019 Hospital Encounter Gunnar Kirk MD [address] [place] [address] [phone] ESOPHAGOGASTRODUODENOSCOPY WITH SPECIMEN COLLECTION BY BRUSHING/ WASHING 02/03/2019 Surgery Order Schedule Name Priority Associated Diagnoses Ordered: 11/22/2018 AMB REFERRAL TO GI LAB FOR PROCEDURE Routine Abdominal pain, unspecified abdominal location Delayed gastric emptying Gastroparesis diabeticorum (HCC) as of this encounter Visit Diagnoses Diagnosis Abdominal pain, unspecified abdominal location - Primary Delayed gastric emptying Dyspepsia and other specified disorders of function of stomach Gastroparesis diabeticorum (HCC) Type II or unspecified type diabetes mellitus with neurological manifestations , not stated as uncontrolled in this encounter
--- OUTSIDE RECORDS SUMMARY | 2018-12-27 17:51 | XMS REPORT | Encounter Summary ---
Author Author [facility] Address Unknown Phone Unavailable Care Team Providers Care Ssn/Ssbn Weapons Equipment Operator Name Role Phone Charles Chau MD Unavailable Migue Patton MD PCP Aleah Broussard 20 Unavailable Encounter Details Care Team Description Date Type Department Paul Manley MD [address] [facility] [address] [place] [address] Post-operative state (Primary Dx) 12/12/2018 Orders Only [facility] Physicians - Orthopedics Orthopedics and [facility] [address] [place] [address] Social History Date Tobacco Use Types Packs/Day Years Used Never Smoker Smokeless Tobacco: Never Used Alcohol Use Drinks/Week oz/Week Comments No Sex Assigned at Date Recorded Not on file Industry Job Start Date Occupation Not on file Not on file Not on file Travel End Travel History Travel Start No recent travel history available. as of this encounter Functional Status Date of Assessment [...] cognitive impairment: No as of this encounter Plan of Treatment Care Team Description Date Type Specialty Gunnar Kirk MD [address] [place] [address] Delayed gastric emptying 02/03/2019 Hospital Encounter Gunnar Kirk MD [address] [place] [address] ESOPHAGOGASTRODUODENOSCOPY WITH SPECIMEN COLLECTION BY BRUSHING/ WASHING 02/03/2019 Surgery as of this encounter Results * ANKLE MIN 3 VIEWS LEFT (12/13/2018 10:31 AM WAREHOUSE ATTENDANT) Impressions Performed At Findings/Impression: [facility] RESULTS [...] Interface, Radiant Results - 12/13/2018 12:01 PM WAREHOUSE ATTENDANT ANKLE MIN 3 VIEWS LEFT Clinical Indication: [...] City/State/Zipcode Phone Number [facility] RESULTS * TIBIA & FIBULA 2 VIEWS LEFT (12/13/2018 10:31 AM WAREHOUSE ATTENDANT) Impressions Performed At Findings/Impression: [facility] RES[facility] 1.Apparent increase in moderate apex posterior angulation at the site of the distal fibula fracture with partial progressive healing of the distal fibula fracture. Persistent gaydylym-[id number] posterior and medial displacement of the distal [...] Interface, Radiant Results - 12/13/2018 12:05 PM WAREHOUSE ATTENDANT TIBIA & FIBULA 2 VIEWS LEFT Clinical Indication: Pain. Comparison: None IMPRESSION Findings/Impression: 1. Apparent increase in moderate apex posterior angulation at the site of the distal fibula fracture with partial progressive healing of the distal fibula fracture. Persistent ayzczqxe-[id number]-[id number] posterior and medial displacement of the distal [...] Address City/State/Zipcode Phone Number [facility] RESULTS in this encounter Visit Diagnoses Diagnosis Post-operative state - Primary Other postprocedural status in this encounter
--- OUTSIDE RECORDS SUMMARY | 2018-12-27 17:51 | XMS REPORT | Encounter Summary ---
Author Author [facility] Organization [facility] Address Unknown Phone Unavailable Care Team Providers Care Audio/Video Technician Name Role Phone Charles Chau MD Unavailable Migue Patton MD PCP Aleah Broussard 20 Unavailable Reason for Referral * Consult, Test & Treat (Routine) Referred By Contact Referred To Contact Status Reason Specialty Diagnoses / [place] [address] [place] [id number] Closed Specialty Services Diagnoses Required Gait instability Weakness of left lower extremity Reason for Visit * Reason Comments Post-op Left tibia and ankle Encounter Details Care Team Description [place] [address] [place] [address] Gait instability (Primary Dx); Transient weakness of left lower extremity; Weakness of left lower extremity 12/13/2018 Office Visit [facility] Physicians - Orthopedics Orthopedics and [facility] [address] [place] [address] Social History Date Tobacco Use [...] Taken Vital Sign Reading 12/13/2018 10:22 AM STORE STANDARDS ASSOCIATE Blood Pressure 124/77 12/13/2018 10:22 AM STORE STANDARDS ASSOCIATE Pulse 102 - Temperature - - Respiratory Rate - - Oxygen Saturation - - Inhaled Oxygen - Concentration 12/13/2018 10:22 AM STORE STANDARDS ASSOCIATE Weight 67.1 kg (148 lb) 12/13/2018 10:22 AM STORE STANDARDS ASSOCIATE Height 165.1 cm (5' 5") 12/13/2018 10:22 AM STORE STANDARDS ASSOCIATE Body Mass Index 24.63 in this encounter Functional Status Date of [...] Date Type Specialty Gunnar Kirk MD [address] [place] [address] [phone] Delayed gastric emptying 02/03/2019 Hospital Encounter Gunnar Kirk MD [address] [place] [address] [phone] ESOPHAGOGASTRODUODENOSCOPY WITH SPECIMEN COLLECTION BY BRUSHING/ WASHING 02/03/2019 Surgery Order Schedule Name Priority Associated Diagnoses Ordered: 12/13/2018 AMB REFERRAL TO PHYSICAL OR OCCUPATIONAL Routine Gait instability THERAPY Weakness of left lower extremity as of this encounter Visit Diagnoses Diagnosis Gait instability - Primary Abnormality of gait Transient weakness of left lower extremity Weakness of left lower extremity in this encounter
--- OUTSIDE RECORDS SUMMARY | 2018-12-27 17:51 | XMS REPORT | Encounter Summary ---
Author Author [facility] Organization [facility] Address Unknown Phone Unavailable Care Team Providers Care Msw Name Role Phone Charles Chau MD Unavailable Migue Patton MD PCP Aleah Broussard 20 Unavailable Reason for Visit * Reason Comments Care Coordination Encounter Details Care Team Description Date Type Department Gunnar Kirk MD [address] [place] [address] Care Coordination 11/25/2018 Telephone [facility] [address] [facility] [place] [address] Social History Date Tobacco Use [...] cognitive impairment: No as of this encounter Miscellaneous Notes * Telephone Encounter - Nanette Piedra RN - 11/25/2018 4:35 PM COURIER Pts called & stated pts PCP stated having the procedure done early in day due to blood sugars not being well controlled. Prep for case put in with request to schedule 1 or 2nd in the morning. IER in this encounter Plan of Treatment Care Team Description Date Type Specialty Gunnar Kirk MD [address] [place] [address] Delayed gastric emptying 02/03/2019 Hospital Encounter Gunnar Kirk MD [address] [place] [address] [phone] ESOPHAGOGASTRODUODENOSCOPY WITH SPECIMEN COLLECTION BY BRUSHING/ WASHING 02/03/2019 Surgery as of this encounter Visit Diagnoses Not on filein this encounter
--- OUTSIDE RECORDS SUMMARY | 2018-12-27 17:51 | XMS REPORT | Encounter Summary ---
Author Author [facility] Organization [facility] Address Unknown Phone Unavailable Care Team Providers Care Cloud Subject Matter Expert Name Role Phone Charles Chau MD Unavailable Migue Patton MD PCP Aleah Broussard 20 Unavailable Encounter Details Care Team Description Date Type Department Paul Manlye MD [address] [facility] [address] [place], [place] [id number] 12/13/2018 Hospital [facility] Radiology [address] [facility] MED OFF[facility] [address]LO[address] [place], [place] [id number] Social History Date Tobacco Use Types Packs/Day [...] cognitive impairment: No as of this encounter Medications at Time of Discharge Start Date End Date Medication Sig Dispensed Refills 11/20/2018 acetaminophen (TYLENOL) Take two 0 325 mg tablet tablets by mouth every 6 hours. 09/27/2018 acetaminophen/lidocaine/a Take 30 mL by 1 Bottle 11 ntacid DS(#) (GI mouth four COCKTAIL) 1:1:3 times daily as needed. ALPRAZolam (XANAX) 1 mg Take 1 mg by 0 tablet mouth twice daily as needed for Anxiety. atorvastatin (LIPITOR) 40 Take 40 mg by 0 mg tablet mouth daily. carBAMazepine (TEGRETOL) Take 200 mg 0 200 mg tablet by mouth twice daily. cetirizine (ZYRTEC) 10 mg Take 10 mg by 0 tablet mouth every morning. cholecalciferol(+) Take 5,000 0 (VITAMIN D-3) 5,000 unit Units by tablet mouth daily. 07/22/2018 coenzyme Q10(+) 100 mg Take one 60 capsule 1 cap capsule by mouth twice daily. 11/20/2018 dicyclomine (BENTYL) 10 Take one 360 capsule 3 mg capsule capsule by mouth before meals and at bedtime. 11/20/[address] (CYMBALTA) Take one 60 capsule 1 30 mg capsule capsule by mouth twice daily. 07/22/2018 ferrous gluconate Take one 30 tablet 1 (FERGON) 240 mg (27 mg tablet by iron) tablet mouth daily. fesoterodine ER(+) Take 4 mg by 0 (TOVIAZ) 4 mg tablet mouth daily. fludrocortisone Take 0.1 mg 0 (FLORINEF) 0.1 mg tablet by mouth twice daily. fluticasone (FLONASE) 50 Apply 1 spray 0 mcg/actuation nasal spray to each nostril as directed daily as needed. Shake bottle gently before using. glucagon,human Inject 1 0 recombinant (GLUCAGEN Units to DIAGNOSTIC KIT IJ) area(s) as directed as Needed. 11/20/2018 insulin aspart U-100 Inject four 15 mL 3 (NOVOLOG FLEXPEN) 100 Units under unit/mL injection PEN the skin three times daily after meals. 11/20/2018 insulin degludec (TRESEBA Inject 14 15 mL 3 SOLOSTAR) 100 unit/mL (3 Units under mL) injection pen the skin at bedtime daily. 07/22/2018 levocarnitine(+) Take four 240 tablet 1 (LEVOCARNITINE(+)) 500 mg tablets by tablet mouth twice daily. levothyroxine (SYNTHROID) Take 175 mcg 0 175 mcg tablet by mouth daily 30 minutes before breakfast. montelukast (SINGULAIR) Take 10 mg by 0 10 mg tablet mouth at bedtime daily. morphine IR (MS-IR) 15 mg Take 15 mg by 0 tablet mouth every 6 hours as needed for Pain onabotulinumtoxinA (BOTOX Inject to 0 IJ) area(s) as directed. Every 3 months for headaches. ondansetron (ZOFRAN) 4 mg Take 4 mg by 0 tablet mouth every 8 hours as needed for Nausea or Vomiting. pantoprazole DR Take 40 mg by 0 (PROTONIX) 40 mg tablet mouth daily. potassium chloride SR Take 10 mEq 0 (K-DUR) 10 mEq tablet by mouth daily. Take with a meal and a full glass of water. pregabalin (LYRICA) 150 Take 150 mg 0 mg capsule by mouth twice daily. 09/27/2018 pyridoxine (VITAMIN B-6) Take one 0 50 mg tablet tablet by mouth daily. rizatriptan (MAXALT) 10 Take 10 mg by 0 mg tablet mouth once as needed for Headache. May repeat in 2 hours if needed 11/22/2018 scopolamine Apply one 24 patch 1 (TRANSDERM-SCOP) 1.5 mg 3 patch to top day patch of skin as directed every 72 hours. 09/27/2018 sucralfate(+) (CARAFATE) Take 10 mL by 414 mL 0 100 mg/mL oral suspension mouth before meals and at bedtime. tiZANidine (ZANAFLEX) 4 Take 4 mg by 0 mg tablet mouth at bedtime daily. 07/22/2018 vitamins, B complex tab Take one 30 tablet 1 tablet by mouth daily. vitamins, multiple tablet Take 1 tablet 0 by mouth daily. zolpidem (AMBIEN) 10 mg Take 10 mg by 0 tablet mouth at bedtime as needed for Sleep. as of this encounter Plan of Treatment Care Team Description Date Type Specialty Gunnar Kirk MD [address] [place], [place] [phone] Delayed gastric emptying 02/03/2019 Hospital Encounter Gunnar Kirk MD [address] [place], [place] [phone] ESOPHAGOGASTRODUODENOSCOPY WITH SPECIMEN COLLECTION BY BRUSHING/ WASHING 02/03/2019 Surgery as of this encounter Procedures Comments Procedure Name Priority Date/Time Associated Diagnosis TIBIA & FIBULA 2 VIEWS Routine 12/13/2018 Post-operative state LEFT 10:31 AM RESOLUTION ANALYST ANKLE MIN 3 VIEWS LEFT Routine 12/13/2018 Post-operative state 10:31 AM RESOLUTION ANALYST in this encounter Results * ANKLE MIN 3 VIEWS LEFT (12/13/2018 10:31 AM RESOLUTION ANALYST) Impressions Performed At Findings/Impression: [facility] RESULTS [...] Interface, Radiant Results - 12/13/2018 12:01 PM RESOLUTION ANALYST ANKLE MIN 3 VIEWS LEFT Clinical Indication: [...] FIBULA 2 VIEWS LEFT (12/13/2018 10:31 AM RESOLUTION ANALYST) Impressions Performed At Findings/Impression: [facility] RESULTS 1.Apparent increase in moderate apex posterior angulation at the site of the distal fibula fracture with partial progressive healing of the distal fibula fracture. Persistent [id number] posterior and medial displacement of the distal [...] Interface, Radiant Results - 12/13/2018 12:05 PM RESOLUTION ANALYST TIBIA & FIBULA 2 VIEWS LEFT Clinical Indication: Pain. Comparison: None IMPRESSION Findings/Impression: 1. Apparent increase in moderate apex posterior angulation at the site of the distal fibula fracture with partial progressive healing of the distal fibula fracture. Persistent [id number] posterior and medial displacement of the distal [...] this encounter Visit Diagnoses Diagnosis Post-operative state Other postprocedural status in this encounter
--- OUTSIDE RECORDS SUMMARY | 2018-12-27 17:51 | XMS REPORT | Encounter Summary ---
Author Author [facility] Organization [facility] Address Unknown Phone Unavailable Care Team Providers Care Petroleum Analyst Name Role Phone Charles Chau MD Unavailable Migue Patton MD PCP Aleah Broussard 20 Unavailable Encounter Details Care Team Description Date Type Department Gunnar Kirk MD [address] [place] [address] Delayed gastric emptying (Primary Dx); Nausea; Vomiting, intractability of vomiting not specified, presence of nausea not specified, unspecified vomiting type 11/25/2018 Prep for Case [facility] [address] [place] [address] [place] [address] Social History Date Tobacco Use [...] Date Type Specialty Gunnar Kirk MD [address] [place], [place] [phone] Delayed gastric emptying 02/03/2019 Hospital Encounter Gunnar Kirk MD [address] [place], [place] [phone] ESOPHAGOGASTRODUODENOSCOPY WITH SPECIMEN COLLECTION BY BRUSHING/ WASHING 02/03/2019 Surgery as of this encounter Visit Diagnoses Diagnosis Delayed gastric emptying - Primary Dyspepsia and other specified disorders of function of stomach Nausea Nausea alone Vomiting, intractability of vomiting not specified, presence of nausea not specified, unspecified vomiting type in this encounter
--- OUTSIDE RECORDS SUMMARY | 2018-12-27 17:53 | XMS REPORT | Encounter Summary ---
Author Author [facility] Organization [facility] Address Unknown Phone Unavailable Care Team Providers Care Carpenter Mate Name Role Phone Charles Chau MD Unavailable Migue Patton MD PCP Aleah Broussard 20 Unavailable Reason for Visit * Reason Comments Syncope Abdominal pain * Auth/Cert Referred By Contact Referred To Contact Status Reason Specialty Diagnoses / Procedures Diagnoses DKA (diabetic ketoacidoses) (HCC) Migraine headache Encounter Details Care Team Description Date Type Department Aleah Wheatley MD [address] [place] [address] [phone] Remi Weber MD [address] [place] [address] [phone] Daron Bradley DO [address] [place] [address] [phone] Israel Orourke MD [address] [place] [address] [phone] Migraine headache 11/15/2018 Hospital 45 TELEMETRY - Encounter [address] 11/20/2018 [place] [address] Social History Date Tobacco Use Types Packs/Day [...] Vital Signs Time Taken Vital Sign Reading 11/20/2018 10:00 AM FISHING GUIDE Blood Pressure 143/65 11/20/2018 10:00 AM FISHING GUIDE Pulse 75 11/20/2018 10:00 AM FISHING GUIDE Temperature 36.8 C (98.3 F) - Respiratory Rate - 11/20/2018 10:00 AM FISHING GUIDE Oxygen Saturation 97% - Inhaled Oxygen - Concentration 11/15/2018 8:52 PM FISHING GUIDE Weight 67.6 kg (149 lb 1.6 oz) 11/15/2018 8:52 PM FISHING GUIDE Height 165.1 cm (5' 5") 11/15/2018 8:52 PM FISHING GUIDE Body Mass Index 24.81 in this encounter Functional Status Date of [...] cognitive impairment: No as of this encounter Discharge Summaries * Israel Orourke MD - 11/20/2018 2:11 PM FISHING GUIDE Physician Discharge Summary Name: Chelsea Castillo Date Of : 1960 Age: 58 years Admit date: 11/15/2018 Discharge date: 11/20/18 Attending Physician: Israel Orourke MD Service: [facility] 3400 Physician Summary completed by: Israel Orourke MD Reason for hospitalization: DKA, cyclic N/V Significant PMH: Past Medical History: Diagnosis Date Arthritis Chronic abdominal pain Cyclic vomiting syndrome Diabetes mellitus type 1 (HCC) Orthostatic hypotension Osteoporosis Stomach problems Thyroid disorder Allergies: Sulfa (sulfonamide antibiotics) Admission Physical Exam notable for: BP: (151-180)/(56-81) Temp: [37.3 C (99.2 F)-37.5 C (99.5 F)] Pulse: [92-102] Respirations: [18 PER MINUTE-29 PER MINUTE] SpO2: [97 %-100 %] O2 Delivery: None (Room Air) Abdomen: Soft, moderately diffusely tender to palpation, moderate voluntary guarding present: Patient reported this is her chronic abdominal pain from gastroparesis, non distended, Bowel sounds normal. Psyche: Depressed and anxious affect. She kept crying throughout the interview. Admission Lab/Radiology studies notable for: WBC: 13.2 Na: 131 Glucose: 421 CO2: 18 Anion gap: 20 Beta hydroxybutyrate: 6.5 Brief Hospital Course: The patient was admitted and the following issues were addressed during this hospitalization: (with pertinent details). Pt presented to the ED with recurrent intractable cyclic N/V, generalized abdominal pain, and migraine headaches. Found to be in DKA. CT head w/o contrast was normal. Was placed on an insulin gtt along w/ IVF. Large GI workup in the past has been rather unrevealing other than her known gastroparesis. She was titrated off of the insulin gtt to sub-q insulin. Endocrine was consulted; she was changed to 14u long acting insulin (is on Tresiba as outpt) and changed to 4u novolog post-meals d/t gastroparesis. She will also cont on a low dose SSI. Bentyl and scopolamine patch were restarted for her chronic abdominal pain, cyclic N/V. Continued on carafate. I had a long discussion with the pt and her this admit that narcotics were not indicated for her GI symptoms and in fact these can make it worse. She continues on morphine from her fracture and ORIF surgery. At discharge I had decreased to 5-10mg Q8hr PRN. Plaquenil was dc'd this admit. She was reportedly on this for inflammatory arthritis. In September lab work including HERNAN, dsDNA, RF, CCP, anti-quesada, anti -SSA/B, SCL70, anti-centromere were all negative. Given the side effects of Plaquenil and no clear evidence of having immune mediated arthropathy this was stopped. Condition at Discharge: Stable Discharge Diagnoses: Hospital Problems Active Problems Intractable cyclical vomiting with nausea Type 1 diabetes, uncontrolled, with neuropathy ([facility]) Migraine with aura and with status migrainosus, not intractable Chronic abdominal pain Orthostatic hypotension Acquired hypothyroidism CLL (chronic lymphocytic leukemia) ([facility]) Anxiety and depression Migraine headache Resolved Problems RESOLVED: DKA (diabetic ketoacidoses) ([facility]) Surgical Procedures: None Significant Diagnostic Studies and Procedures: noted in brief hospital course Consults: Endocrinology Patient Disposition: Home with Home Health Care Patient instructions/medications: Activity as Tolerated It is important to [...] work toward your normal activity level at discharge Report These Signs and Symptoms Please contact your doctor if you have any of the following symptoms: temperature higher than 100 degrees F, uncontrolled pain, persistent nausea and/ or vomiting, chest pain or severe abdominal pain Questions About Your Stay For questions or concerns regarding your hospital stay. Call [phone] Discharging attending physician: ISRAEL OROURKE [[id number]] Diabetic Diet You should eat between 1600 and 2000 calories per day. This is equal to 60g ( grams) of carbohydrates per meal, and 30g of carbohydrates for a bedtime snack. If you have questions about your diet after you go home, you can call a dietitian at [phone]. Opioid (Narcotic) Safety Information OPIOID (NARCOTIC) PAIN MEDICATION SAFETY We care about your comfort, and believe you need opioid medications at this time to treat your pain. An opioid is a strong pain medication. It is only available by prescription for moderate to severe pain. Usually these medications are used for only a short time to treat pain, but sometimes will be prescribed for longer. Talk with your doctor or nurse about how long they expect you to need this medication. When used the right way, opioids are safe and effective medications to treat your pain, even when used for a long time. Yet, when used in the wrong way, opioids can be dangerous for you or others. Opioids do not work for everyone. Most patients do not get full relief of their pain from opioid medication; full relief of your pain may not be possible. For your safety, we ask you to follow these instructions: *Only take your opioid medication as prescribed. If your pain is not controlled with the prescribed dose, or the medication is not lasting long enough, call your doctor. *Do not break or crush your opioid medication unless your doctor or pharmacist says you can. With certain medications, this can be dangerous, and may cause . *Never share your medications with others, even if they appear to have a good reason. Never take someone else's pain medication-this is dangerous, and illegal (a crime). Overdoses and deaths have occurred. *Keep your opioid medications safe, as you would with copeland, in a lock box or similar container. *Make sure your opioids are going to be secure, especially if you are around children or teens. *Talk with your doctor or pharmacist before you take other medications. *Avoid driving, operating machinery, or drinking alcohol while taking opioid pain medication. This may be unsafe. Pain medications can cause constipation. Constipation is bowel movements that are less often than normal. Stools often become very hard and difficult to pass. This may lead to stomach pain and bloating. It may also cause pain when trying to use the bathroom. Constipation may be treated with suppositories, laxatives or stool softeners. A diet high in fiber with plenty of fluids helps to maintain regular, soft bowel movements. Current Discharge Medication List START taking these medications Details dicyclomine (BENTYL) 10 mg capsule Take one capsule by mouth before meals and at bedtime. Qty: 360 capsule, Refills: 3 PRESCRIPTION TYPE: Normal insulin aspart U-100 (NOVOLOG FLEXPEN) 100 unit/mL injection PEN Inject four Units under the skin three times daily after meals. Qty: 15 mL, Refills: 3 PRESCRIPTION TYPE: Normal scopolamine (TRANSDERM-SCOP) 1.5 mg 3 day patch Apply one patch to top of skin as directed every 72 hours. Qty: 24 patch, Refills: 1 PRESCRIPTION TYPE: Normal CONTINUE these medications which have been CHANGED or REFILLED Details acetaminophen (TYLENOL) 325 mg tablet Take two tablets by mouth every 6 hours. Refills: 0 PRESCRIPTION TYPE: OTC duloxetine DR (CYMBALTA) 30 mg capsule Take one capsule by mouth twice daily. Qty: 60 capsule, Refills: 1 PRESCRIPTION TYPE: Normal insulin degludec (TRESEBA SOLOSTAR) 100 unit/mL (3 mL) injection pen Inject 14 Units under the skin at bedtime daily. Qty: 15 mL, Refills: 3 PRESCRIPTION TYPE: Normal CONTINUE these medications which have NOT CHANGED Details acetaminophen/lidocaine/antacid DS(#) (GI COCKTAIL) 1:1:3 Take 30 mL by mouth four times daily as needed. Qty: 1 Bottle, Refills: 11 PRESCRIPTION TYPE: Print ALPRAZolam (XANAX) 1 mg tablet Take 1 mg by mouth twice daily as needed for Anxiety. PRESCRIPTION TYPE: Historical Med atorvastatin (LIPITOR) 40 mg tablet Take 40 mg by mouth daily. PRESCRIPTION TYPE: Historical Med carBAMazepine (TEGRETOL) 200 mg tablet Take 200 mg by mouth twice daily. PRESCRIPTION TYPE: Historical Med cetirizine (ZYRTEC) 10 mg tablet Take 10 mg by mouth every morning. PRESCRIPTION TYPE: Historical Med cholecalciferol(+) (VITAMIN D-3) 5,000 unit tablet Take 5,000 Units by mouth daily. PRESCRIPTION TYPE: Historical Med coenzyme Q10(+) 100 mg cap Take one capsule by mouth twice daily. Qty: 60 capsule, Refills: 1 PRESCRIPTION TYPE: Normal ferrous gluconate (FERGON) 240 mg (27 mg iron) tablet Take one tablet by mouth daily. Qty: 30 tablet, Refills: 1 PRESCRIPTION TYPE: Normal fesoterodine ER(+) (TOVIAZ) 4 mg tablet Take 4 mg by mouth daily. PRESCRIPTION TYPE: Historical Med fludrocortisone (FLORINEF) 0.1 mg tablet Take 0.1 mg by mouth twice daily. PRESCRIPTION TYPE: Historical Med fluticasone (FLONASE) 50 mcg/actuation nasal spray Apply 1 spray to each nostril as directed daily as needed. Shake bottle gently before using. PRESCRIPTION TYPE: Historical Med glucagon,human recombinant (GLUCAGEN DIAGNOSTIC KIT IJ) Inject 1 Units to area(s ) as directed as Needed. PRESCRIPTION TYPE: Historical Med levocarnitine(+) (LEVOCARNITINE(+)) 500 mg tablet Take four tablets by mouth twice daily. Qty: 240 tablet, Refills: 1 PRESCRIPTION TYPE: Normal levothyroxine (SYNTHROID) 175 mcg tablet Take 175 mcg by mouth daily 30 minutes before breakfast. PRESCRIPTION TYPE: Historical Med montelukast (SINGULAIR) 10 mg tablet Take 10 mg by mouth at bedtime daily. PRESCRIPTION TYPE: Historical Med morphine IR (MS-IR) 15 mg tablet Take 15 mg by mouth every 6 hours as needed for Pain PRESCRIPTION TYPE: Historical Med onabotulinumtoxinA (BOTOX IJ) Inject to area(s) as directed. Every 3 months for headaches. PRESCRIPTION TYPE: Historical Med ondansetron (ZOFRAN) 4 mg tablet Take 4 mg by mouth every 8 hours as needed for Nausea or Vomiting. PRESCRIPTION TYPE: Historical Med pantoprazole DR (PROTONIX) 40 mg tablet Take 40 mg by mouth daily. PRESCRIPTION TYPE: Historical Med potassium chloride SR (K-DUR) 10 mEq tablet Take 10 mEq by mouth daily. Take with a meal and a full glass of water. PRESCRIPTION TYPE: Historical Med pregabalin (LYRICA) 150 mg capsule Take 150 mg by mouth twice daily. PRESCRIPTION TYPE: Historical Med pyridoxine (VITAMIN B-6) 50 mg tablet Take one tablet by mouth daily. PRESCRIPTION TYPE: No Print rizatriptan (MAXALT) 10 mg tablet Take 10 mg by mouth once as needed for Headache. May repeat in 2 hours if needed PRESCRIPTION TYPE: Historical Med sucralfate(+) (CARAFATE) 100 mg/mL oral suspension Take 10 mL by mouth before meals and at bedtime. Qty: 414 mL, Refills: 0 PRESCRIPTION TYPE: Print tiZANidine (ZANAFLEX) 4 mg tablet Take 4 mg by mouth at bedtime daily. PRESCRIPTION TYPE: Historical Med vitamins, B complex tab Take one tablet by mouth daily. Qty: 30 tablet, Refills: 1 PRESCRIPTION TYPE: Normal vitamins, multiple tablet Take 1 tablet by mouth daily. PRESCRIPTION TYPE: Historical Med zolpidem (AMBIEN) 10 mg tablet Take 10 mg by mouth at bedtime as needed for Sleep. PRESCRIPTION TYPE: Historical Med The following medications were removed from your list. This list includes medications discontinued this stay and those removed from your prior med list in our system hydroxychloroquine (PLAQUENIL) 200 mg tablet insulin lispro(+) (HUMALOG KWIKPEN INSULIN) 100 unit/mL injection PEN polyethylene glycol 3350 (MIRALAX) 17 g packet Scheduled appointments: Nov 22, 2018 3:00 PM FISHING GUIDE Return Patient with Gunnar Kirk MD [facility] ([facility]) Ortho and Medical Pavilion Level [address]B [address] [facility] [address] Dec 06, 2018 10:40 AM FISHING GUIDE Post - Op with Paul Manley MD [facility] - Orthopedics ([facility] Orthopedics) Orthopedics and Medical Pavilion [address] [facility] [address] Jan 08, 2019 10:00 AM FISHING GUIDE CLINICAL SUPPORT NEW with Shirley Lee RN [facility] - Internal Medicine ([facility] Internal Medicine) [address] [facility] [address] Jan 15, 2019 2:00 PM FISHING GUIDE (Arrive by 1:45 PM) Lab with LL2 PHLEBOTOMY CHAIR [facility] Exam ([facility] Exam) [address] [address] Jan 15, 2019 3:00 PM FISHING GUIDE (Arrive by 2:45 PM) Return Patient with Milena Bhatti MD [facility] Ex[facility] ([facility] Exam) [address] [address] Pending items needing follow up: None Signed: Israel Orourke MD 11/21/2018 cc: Primary Care Physician: Migue Patton III Verified Referring physicians: No ref. provider found Additional provider(s): ING GUIDE in this encounter Medications at Time of [...] as of this encounter Progress Notes * Alistair Sanders RN - 11/20/2018 1:56 PM FISHING GUIDE Discharge instructions reviewed with pt and family. Pt verbalizes understanding. All questions addressed and answered. Signs and symptoms of infections and Deep vein Thrombosis reviewed. Peripheral IV removed, port hep locked. Pt left with medications via meds to beds. Pt left with RN via wheel chair with all belongings. ING GUIDE * Israel Orourke MD - 11/20/2018 10:23 AM FISHING GUIDE Day of Discharge Progress Note S: Pt w/o acute events overnight. Abdominal pain is better today, denies N/V. Feels comfortable with post-meal insulin dosing. O: Exam unchanged from day prior, although her abdomen is much less TTP Vitals: 11/19/18 1832 11/19/18 2228 11/20/18 0149 11/20/18 0555 BP: 146/71 131/67 115/60 142/59 Pulse: 73 70 71 75 Temp: 37.1 C (98.7 F) 36.9 C (98.5 F) 37.3 C (99.1 F) 37.1 C ( 98.8 F) SpO2: 97% 96% 96% 96% Weight: Height: Labs reviewed. Fasting glucose is 155 today. A/P: 58yoF w/ PMH of CLL on active tx, DM1, migraine ROWE, hypothyroid, , chronic abd pain, anxiety and depression, seizure d/o, chronic abd pain w/ gastroparesis, arthritis on immunosuppression, recent LLE tib-fib fracture s/p ORIF admitted w / DKA Changes made to today's assessment and plan are indicated in bold. Type 1 DM, DKA on admit - endocrine consulted - cont lantus 14u QHS, aspart 4u post-meal - LDCF Chronic abd pain, N/V - w/u to date has been unrevealing, GI eval last admit was concerning for symptoms of opiate withdrawal. - cont PRN sucralfate (pt uses her own liquid formulation) - cont lyrica - cont PPI - GI cocktail PRN - cont bentyl, scopolamine patch Recent LLE tib fib fracture - s/p fixation on 10/14 - following w/ Dr. Manley - WBAT, cont CAM boot - cont PO morphine for pain control - decreased to 5-10mg Q8hr PRN - cont scheduled tylenol CLL - following w/ heme, currently only doing surveillance labs Orthostatic hypotension - cont florinef MDD, anxiety - cont [employer]OCK cymbalta, PRN BID Valium ?seizure d/o - cont tegretol Migraine ROWE - resolved ?inflammatory arthritis - HERNAN has been negative in the past along w/ dsDNA, RF, CCP, anti-quesada, anti- SSA/B, SCL70, Centromere - plaquenil dc'd as no indication of auto-immune mediated arthritis Hypothyroid - cont synthroid 35 min spent in discharge planning including counseling on medications, arranging follow up appointments, and discussing return precautions. Israel Orourke MD Pager: [phone] Future Appointments Date Time Provider Department Center 11/22/2018 3:00 PM Gunnar Kirk MD IMGASTRO [facility] IM 12/06/2018 10:40 AM Paul Manley MD ORTHOCL [facility] Orthoped 01/08/2019 10:00 AM Shirley Lee RN QVIMDIAB [facility] IM 01/15/2019 2:00 PM LL2 PHLEBOTOMY CHAIR [facility] Exam 01/15/2019 3:00 PM Milena Bhatti MD [facility] Exam ING GUIDE * Israel Orourke MD - 11/19/2018 11:29 AM FISHING GUIDE General Progress Note Name: Chelsea Castillo Today's Date: 11/19/2018 Admission Date: 11/15/2018 LOS: 4 days Assessment/Plan: Active Problems: Intractable cyclical vomiting with nausea Type 1 diabetes, uncontrolled, with neuropathy (HCC) Migraine with aura and with status migrainosus, not intractable Chronic abdominal pain Orthostatic hypotension Acquired hypothyroidism CLL (chronic lymphocytic leukemia) (HCC) Anxiety and depression Migraine headache 58yoF w/ PMH of CLL on active tx, DM1, migraine ROWE, hypothyroid, , chronic abd pain, anxiety and depression, seizure d/o, chronic abd pain w/ gastroparesis, arthritis on immunosuppression, recent LLE tib-fib fracture s/p ORIF admitted w / DKA Changes made to today's assessment and plan are indicated in bold. Type 1 DM, DKA on admit - endocrine consulted - now off of insulin gtt - cont lantus 14u QHS, increase aspart to 4u post-meal - LDCF Chronic abd pain, N/V - w/u to date has been unrevealing, GI eval last admit was concerning for symptoms of opiate withdrawal. - cont PRN sucralfate (pt uses her own liquid formulation) - cont lyrica - cont PPI - GI cocktail PRN - resume bentyl, scopolamine patch Recent LLE tib fib fracture - s/p fixation on 10/14 - following w/ Dr. 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 Sands today, will increase post meal insulin. Discussed with the patient that we will not be using opiate for her chronic abdominal pain. Current opiates on her MAR are for post-op pain. There has been concern for mis-use in the past w/ negative UDS despite reporting use of opiates. Subjective Chelsea Victoria Issa Castillo is a 58 y.o. female. Patient w/o acute events overnight. Reports having increasing abdominal pain last evening and this morning. Reports nausea, but has not had vomiting. She reports her last bowel movement was two days ago, is passing gas. Has a headache only when her stomach gets upset. She is asking for something stronger for her abdominal pain or for IV benadryl. She told me yesterday that she is only using her opiates when participating in rehab for her leg and has "plenty" left at home. ROS: neg for fevers, chills, dyspnea, chest pain, palpitations Medications Scheduled Meds: acetaminophen (TYLENOL) tablet 650 mg 650 mg Oral Q6H atorvastatin (LIPITOR) tablet 40 mg 40 mg Oral QDAY carBAMazepine (TEGRETOL) tablet 200 mg 200 mg Oral BID cetirizine (ZYRTEC) tablet 10 mg 10 mg Oral QAM8 dicyclomine (BENTYL) capsule 10 mg 10 mg Oral ACHS duloxetine DR (CYMBALTA) capsule 30 mg 30 mg Oral BID enoxaparin (LOVENOX) syringe 40 mg 40 mg Subcutaneous QDAY(21) fludrocortisone (FLORINEF) tablet 0.1 mg 0.1 mg Oral BID fluticasone (FLONASE) nasal spray 1 spray 1 spray Each Nostril QDAY insulin aspart U-100 (NOVOLOG FLEXPEN) injection PEN 0-7 Units 0-7 Units Subcutaneous ACHS insulin aspart U-100 (NOVOLOG FLEXPEN) injection PEN 4 Units 4 Units Subcutaneous TID after meals insulin glargine (LANTUS SOLOSTAR, BASAGLAR) injection PEN 14 Units 14 Units Subcutaneous QDAY(12) levothyroxine (SYNTHROID) tablet 175 mcg 175 mcg Oral QDAY 30 min before breakfast montelukast (SINGULAIR) tablet 10 mg 10 mg Oral QHS oxybutynin XL (DITROPAN XL) tablet 5 mg 5 mg Oral QDAY pantoprazole DR (PROTONIX) tablet 40 mg 40 mg Oral QDAY pregabalin (LYRICA) capsule 150 mg 150 mg Oral BID scopolamine (TRANSDERM-SCOP) patch 1 patch 1 patch Transdermal Q72H* sucralfate (CARAFATE) oral suspension 1 g Patient's Own Medication 1 g Oral ACHS Continuous Infusions: PRN and Respiratory Meds:acetaminophen/lidocaine/antacid DS(#) QID PRN, ALPRAZolam BID PRN, alteplase BID PRN, diphenhydrAMINE Q6H PRN, loperamide QID PRN, morphine Q8H PRN, ondansetron (ZOFRAN) IV Q6H PRN, promethazine Q8H PRN, tiZANidine Q6H PRN, zolpidem QHS PRN Objective Vital Signs: Last Filed Vital Signs: 24 Hour Range BP: 141/68 (11/19 999) Temp: 36.8 C (98.2 F) (11/19 999) Pulse: 75 (11/19 999) Respirations: 18 PER MINUTE (11/19 999) SpO2: 96 % (11/19 999) O2 Delivery: None (Room Air) (11/19 999) BP: (100-156)/(51-77) Temp: [36.6 C (97.8 F)-37 C (98.6 F)] Pulse: [68-77] Respirations: [17 PER MINUTE-18 PER MINUTE] SpO2: [95 %-98 %] O2 Delivery: None (Room Air) Intensity Pain Scale (Self Report): 6 (11/19/18 0358) Vitals: 11/15/18 1508 11/15/182051 Weight: 67.1 kg (147 lb 14.9 oz) 67.6 kg (149 lb 1.6 oz) Intake/Output Summary: (Last 24 hours) Intake/Output Summary (Last 24 hours) at 11/19/2018 1129 Last data filed at 11/18/2018 2200 Gross per 24 hour Intake 200 ml Output Net 200 ml Stool Occurrence: 0 Physical Exam General: Alert, cooperative, no distress, appears stated age. Psych: flat affect Head: Normocephalic, without obvious abnormality, atraumatic. Neck: - JVD Eyes: Conjunctivae/corneas clear. Lungs: CTAB, no rales, no wheezing. Heart: Regular rate and rhythm, no MRG. Abdomen: Soft, TTP in all quads w/o rebound or guarding. Bowel sounds normal. Extremities: LLE in CAM boot Pulses: 2+ radial pulses b/l Skin: Skin color, texture, turgor normal. No rashes or lesions. Lab Review Hematology: Lab Results Component Value Date HGB 11.7 11/19/2018 HCT 35.3 11/19/2018 PLTCT 223 11/19/2018 WBC 7.7 11/19/2018 NEUT 13 11/17/2018 ANC 1.77 11/19/2018 ANC 1.30 11/17/2018 LYMPH 53 11/19/2018 ALC 5.90 11/17/2018 EVELYN 5 11/17/2018 AMC 0.50 11/17/2018 ABC 0.10 11/17/2018 BASOPHILS 1 11/18/2018 MCV 93.0 11/19/2018 MCHC 33.1 11/19/2018 MPV 9.0 11/19/2018 RDW 15.3 11/19/2018 , Coagulation: No results found for: PT, PTT, INR, General Chemistry: Lab Results Component Value Date NA 142 11/19/2018 K 3.3 11/19/2018 CL 104 11/19/2018 GAP 5 11/19/2018 BUN 9 11/19/2018 CR 0.69 11/19/2018 GLU 149 11/19/2018 CA 8.3 11/19/2018 ALBUMIN 3.0 11/19/2018 OBSCA 0.94 10/13/2018 MG 1.9 11/19/2018 TOTBILI 0.2 11/19/2018 and Enzymes: Lab Results Component Value Date AST 26 11/19/2018 ALT 38 11/19/2018 ALKPHOS 136 11/19/2018 Point of Care Testing (Last 24 hours) Glucose: (!) 149 (11/19/18 0400) POC Glucose (Download): (!) 186 (11/19/18 7097) Radiology and other Diagnostics Review: No radiology Israel Orourke MD, FACP Clinical Senior Case Manager Internal Medicine, [facility] Pager: [phone] ING GUIDE * Reji Sands MD - 11/19/2018 8:56 AM FISHING GUIDE Endocrinology Follow up Progress Note Name: Chelsea Castillo Admission Date: 11/15/2018 Active Problems: Intractable cyclical vomiting with nausea Type 1 diabetes, uncontrolled, with neuropathy (HCC) Migraine with aura and with status migrainosus, not intractable Chronic abdominal pain Orthostatic hypotension Acquired hypothyroidism CLL (chronic lymphocytic leukemia) (HCC) Anxiety and depression Migraine headache Reason for Consult: "DKA" Assessment / Plan Chelsea Castillo is a 58 y.o. female with arthritis, chronic abdominal pain, cyclic vomiting syndrome, diabetes type 1, gastroparesis, CLL not on treatment,, hypothyroidism, depression, seizure disorder who presented to the hospital with worsening acute on chronic abdominal pain with nausea and vomiting and found to be in DKA. Endocrinology consulted for DKA management. 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 Avelar for diabetes management Diabetic-complications assessment: Retinopathy: yes. Peripheral neuropathy: yes Autonomic neuropathy: gastroparesis Nephropathy: no Macrovascular complications: no known CAD Risk Factor assessment Last lipid profile Lab Results Component Value Date CHOL 176 09/18/2018 TRIG 161 (H) 09/18/2018 HDL 53 09/18/2018 LDL 96 09/18/2018 VLDL 32 09/18/2018 NONHDLCHOL 123 09/18/2018 BP Readings from Last 1 Encounters: 11/19/18 156/77 On ACEi/ARB?: no On Statin?: no On admission anion gap 20, beta hydroxybutyrate 6.5, glucose 421 Hypothyroidism 11/16/2018 TSH 1.77 Impression / Recommendations Decreases Lantus 14 units daily Inc Aspart 4 units post meal dosing LDCF Pt was discussed with Staff physician Quincy Morris DO Pager [phone] ATTESTATION I personally performed the ortega portions of the E/M visit, discussed case with resident and concur with resident documentation of history, physical exam, assessment, and treatment plan unless otherwise noted. The patient was seen and discussed with the attending as well Dr. Orourke Staff name: Reji Sands MD Date: 11/19/2018 Subjective: Chelsea Castillo is a 58 y.o. female Patient with abdominal pain this am. Some hyperglycemia after meal. Increase mealtime. Physical Exam: Gen: A&O HEENT: EOMI Lungs: Non labored Abd: Non-distended Ext: No cyanosis Skin: No rashes Vital Signs: Last Filed In 24 Hours Vital Signs: 24 Hour Range BP: 156/77 (11/19 607) Temp: 36.9 C (98.5 F) (11/19 607) Pulse: 77 (11/19 607) Respirations: 18 PER MINUTE (11/19 607) SpO2: 95 % (11/19 607) O2 Delivery: None (Room Air) (11/19 607) BP: (100-156)/(51-77) Temp: [36.6 C (97.8 F)-37 C (98.6 F)] Pulse: [68-77] Respirations: [17 PER MINUTE-18 PER MINUTE] SpO2: [95 %-98 %] O2 Delivery: None (Room Air) Intensity Pain Scale (Self Report): 6 (11/19/18 5763) Medications: No current facility-administered medications on file prior to encounter. Current Outpatient Medications on File Prior to Encounter Medication Sig Dispense Refill acetaminophen/lidocaine/antacid DS(#) (GI COCKTAIL) 1:1:3 Take 30 mL by mouth four times daily as needed. 1 Bottle 11 ALPRAZolam (XANAX) 1 mg tablet Take 1 [...] Take one capsule by mouth twice daily. [address] (CYMBALTA) 30 mg capsule Take three capsules by mouth daily. ( Patient taking differently: Take 30 mg by mouth twice daily.) 30 capsule 1 ferrous gluconate (FERGON) 240 mg (27 mg iron) tablet Take one tablet by mouth daily. 30 tablet 1 fesoterodine ER(+) (TOVIAZ) 4 mg tablet Take [...] 100 unit/mL (3 mL) injection pen Inject 12 Units under the skin at bedtime daily. (Patient taking differently: Inject 13 Units under the skin at bedtime daily.) 15 mL 0 insulin lispro(+) (HUMALOG KWIKPEN INSULIN) 100 unit/mL injection PEN Inject 4 units subcutaneously with breakfast and lunch, and dinner. 45 mL 0 levocarnitine(+) (LEVOCARNITINE(+)) 500 mg tablet Take four tablets by mouth twice daily. (Patient taking differently: Take 1 tablet by mouth daily.) 240 tablet 1 levothyroxine (SYNTHROID) 175 mcg tablet Take 175 [...] tablet Take 40 mg by mouth daily. polyethylene glycol 3350 (MIRALAX) 17 g packet Take one packet by mouth daily as needed. 30 each 1 potassium chloride SR (K-DUR) 10 mEq tablet [...] May repeat in 2 hours if needed sucralfate(+) (CARAFATE) 100 mg/mL oral suspension Take 10 mL by mouth before meals and at bedtime. 414 mL 0 tiZANidine (ZANAFLEX) 4 mg tablet Take 4 mg by mouth at bedtime daily. vitamins, B complex tab Take one tablet by mouth daily. 30 tablet 1 vitamins, multiple tablet Take 1 tablet by mouth daily. zolpidem (AMBIEN) 10 mg tablet Take 10 mg by mouth at bedtime as needed for Sleep. Lab/Radiology/Other Diagnostic Tests: 24-hour labs: Results for orders placed or performed during the hospital encounter of (from the past 24 hour(s)) POC GLUCOSE Collection Time: 11/18/18 12:48 PM Result Value Ref Range Glucose, POC 254 (H) 70 - 100 MG/DL POC GLUCOSE Collection Time: 11/18/18 5:51 PM Result Value Ref Range Glucose, POC 173 (H) 70 - 100 MG/DL POC GLUCOSE Collection Time: 11/18/18 10:46 PM Result Value Ref Range Glucose, POC 226 (H) 70 - 100 MG/DL CBC AND DIFF Collection Time: 11/19/18 4:00 AM Result Value Ref Range White Blood Cells 7.7 4.5 - 11.0 K/UL RBC 3.80 (L) 4.0 - 5.0 M/UL Hemoglobin 11.7 (L) 12.0 - 15.0 GM/DL Hematocrit 35.3 (L) 36 - 45 % MCV 93.0 80 - 100 FL MCH 30.8 26 - 34 PG MCHC 33.1 32.0 - 36.0 G/DL RDW 15.3 (H) 11 - 15 % Platelet Count 223 150 - 400 K/UL MPV 9.0 7 - 11 FL Segmented Neutrophils 23 (L) 41 - 77 % Lymphocytes 53 (H) 24 - 44 % Monocytes 7 4 - 12 % Eosinophil 17 (H) 0 - 5 % Normal RBC Morph NORMAL Platelet Estimate NORMAL Absolute Neutrophil Count Manual 1.77 (L) 1.8 - 7.0 K/UL COMPREHENSIVE METABOLIC PANEL Collection Time: 11/19/18 4:00 AM Result Value Ref Range Sodium 142 137 - 147 MMOL/L Potassium 3.3 (L) 3.5 - 5.1 MMOL/L Chloride 104 98 - 110 MMOL/L Glucose 149 (H) 70 - 100 MG/DL Blood Urea Nitrogen 9 7 - 25 MG/DL Creatinine 0.69 0.4 - 1.00 MG/DL Calcium 8.3 (L) 8.5 - 10.6 MG/DL Total Protein 5.0 (L) 6.0 - 8.0 G/DL Total Bilirubin 0.2 (L) 0.3 - 1.2 MG/DL Albumin 3.0 (L) 3.5 - 5.0 G/DL Alk Phosphatase 136 (H) 25 - 110 U/L AST (SGOT) 26 7 - 40 U/L CO2 33 (H) 21 - 30 MMOL/L ALT (SGPT) 38 7 - 56 U/L Anion Gap 5 3 - 12 eGFR Non >60 >60 mL/min eGFR >60 >60 mL/min MAGNESIUM Collection Time: 11/19/18 4:00 AM Result Value Ref Range Magnesium 1.9 1.6 - 2.6 mg/dL PHOSPHORUS Collection Time: 11/19/18 4:00 AM Result Value Ref Range Phosphorus 4.2 2.0 - 4.5 MG/DL POC GLUCOSE Collection Time: 11/19/18 6:07 AM Result Value Ref Range Glucose, POC 143 (H) 70 - 100 MG/DL POC GLUCOSE Collection Time: 11/19/18 8:21 AM Result Value Ref Range Glucose, POC 186 (H) 70 - 100 MG/DL FSBS (Manual): (!) 226 (11/18/182250) Glucose: (!) 149 (11/19/18 0400) POC Glucose (Download): (!) 186 (11/19/18 9627) Pertinent radiology reviewed. ING GUIDE * Israel Orourke MD - 11/18/2018 11:15 AM FISHING GUIDE General Progress Note Name: Chelsea Castillo Today's Date: 11/18/2018 Admission Date: 11/15/2018 LOS: 3 days Assessment/Plan: Active Problems: Intractable cyclical vomiting with nausea Type 1 diabetes, uncontrolled, with neuropathy (HCC) Migraine with aura and with status migrainosus, not intractable Chronic abdominal pain Orthostatic hypotension Acquired hypothyroidism CLL (chronic lymphocytic leukemia) (HCC) Anxiety and depression Migraine headache 58yoF w/ PMH of CLL on active tx, DM1, migraine ROWE, hypothyroid, , chronic abd pain, anxiety and depression, seizure d/o, chronic abd pain w/ gastroparesis, arthritis on immunosuppression, recent LLE tib-fib fracture s/p ORIF admitted w / DKA Changes made to today's assessment and plan are indicated in bold. Type 1 DM, DKA on admit - endocrine consulted - now off of insulin gtt - decrease lantus to 14u QHS, aspart to 2u TID AC - LDCF Chronic abd pain, N/V - w/u to date has been unrevealing - cont PRN imodium, bentyl, sucralfate (pt uses her own liquid formulation) - cont lyrica - cont PPI Recent LLE tib fib fracture - s/p fixation on 10/14 - following w/ Dr. Manley - WBAT, cont CAM boot - cont PO morphine for pain control - decrease to 7.5mg-15mg Q8hr PRN, cont to titrate - cont scheduled tylenol CLL - following w/ heme, currently only have surveillance labs Orthostatic hypotension - cont florinef MDD, anxiety - cont [employer]STOCK cymbalta, PRN BID Valium ?seizure d/o - cont tegretol Migraine ROWE - resolved ?inflammatory arthritis - HERNAN has been negative in the past along w/ dsDNA, RF, CCP - I discussed with the pt that given her negative immunologic/auto-immune w/u and given the side effects of plaquenil I recommend that we d/c this, she is in agreement wit this Hypothyroid - cont synthroid FEN: no IVF, replace lytes PRN, ADA diet Ppx: lovenox Code: Full Dispo: cont inpt admit, having hypoglycemic episodes. Discussed w/ endocrine will adjust insulin doses. Subjective Chelsea Julien Castillo is a 58 y.o. female. Patient w/o acute events overnight. No longer having N/V, did reports some mild abdominal pain after dinner last night. Denies any further headaches. Reports one loose stool last evening. ROS: neg for fevers, chills, dyspnea, chest pain, palpitations Medications Scheduled Meds: acetaminophen (TYLENOL) tablet 650 mg 650 mg Oral Q6H aspirin tablet 325 mg 325 mg Oral QDAY atorvastatin (LIPITOR) tablet 40 mg 40 mg Oral QDAY carBAMazepine (TEGRETOL) tablet 400 mg 400 mg Oral QDAY cetirizine (ZYRTEC) tablet 10 mg 10 mg Oral QAM8 duloxetine (CYMBALTA) capsule 90 mg 90 mg Oral QDAY enoxaparin (LOVENOX) syringe 40 mg 40 mg Subcutaneous QDAY(21) fludrocortisone (FLORINEF) tablet 0.3 mg 0.3 mg Oral QDAY fluticasone (FLONASE) nasal spray 1 spray 1 spray Each Nostril QDAY insulin aspart U-100 (NOVOLOG FLEXPEN) injection PEN 0-7 Units 0-7 Units Subcutaneous ACHS insulin aspart U-100 (NOVOLOG FLEXPEN) injection PEN 2 Units 2 Units Subcutaneous TID after meals insulin glargine (LANTUS SOLOSTAR, BASAGLAR) injection PEN 14 Units 14 Units Subcutaneous QDAY(12) levothyroxine (SYNTHROID) tablet 175 mcg 175 mcg Oral QDAY 30 min before breakfast montelukast (SINGULAIR) tablet 10 mg 10 mg Oral QHS oxybutynin XL (DITROPAN XL) tablet 5 mg 5 mg Oral QDAY pantoprazole (PROTONIX) tablet 40 mg 40 mg Oral QDAY patients own medication 1 Dose 1 Dose Oral ACHS pregabalin (LYRICA) capsule 150 mg 150 mg Oral BID Continuous Infusions: PRN and Respiratory Meds:acetaminophen/lidocaine/antacid DS(#) QID PRN, ALPRAZolam BID PRN, alteplase BID PRN, diphenhydrAMINE Q6H PRN, loperamide QID PRN, morphine Q8H PRN, ondansetron (ZOFRAN) IV Q6H PRN, promethazine Q8H PRN, tiZANidine Q6H PRN, zolpidem QHS PRN Objective Vital Signs: Last Filed Vital Signs: 24 Hour Range BP: 135/68 (11/18 959) Temp: 36.7 C (98.1 F) (11/18 959) Pulse: 74 (11/18 959) Respirations: 18 PER MINUTE (11/18 959) SpO2: 98 % (11/18 959) O2 Delivery: None (Room Air) (11/18 959) BP: (117-143)/(55-71) Temp: [36.6 C (97.8 F)-37.3 C (99.1 F)] Pulse: [74-97] Respirations: [18 PER MINUTE-19 PER MINUTE] SpO2: [95 %-98 %] O2 Delivery: None (Room Air) Intensity Pain Scale (Self Report): (P) 5 (11/18/18 0800) Vitals: 11/15/18 1508 11/15/18 2052 Weight: 67.1 kg (147 lb 14.9 oz) 67.6 kg (149 lb 1.6 oz) Intake/Output Summary: (Last 24 hours) Intake/Output Summary (Last 24 hours) at 11/18/2018 1115 Last data filed at 11/17/2018 2115 Gross per 24 hour Intake 830 ml Output 0 ml Net 830 ml Stool Occurrence: 1 Physical Exam General: Alert, cooperative, no distress, appears stated age. Psych: flat affect Head: Normocephalic, without obvious abnormality, atraumatic. Neck: - JVD Eyes: Conjunctivae/corneas clear. Lungs: CTAB, no rales, no wheezing. Heart: Regular rate and rhythm, no MRG. Abdomen: Soft, non-tender. Bowel sounds normal. Extremities: LLE in CAM boot Pulses: 2+ radial pulses b/l Skin: Skin color, texture, turgor normal. No rashes or lesions. Lab Review Hematology: Lab Results Component Value Date HGB 10.6 11/18/2018 HCT 31.7 11/18/2018 PLTCT 199 11/18/2018 WBC 8.5 11/18/2018 NEUT 13 11/17/2018 ANC 2.72 11/18/2018 ANC 1.30 11/17/2018 LYMPH 51 11/18/2018 ALC 5.90 11/17/2018 EVELYN 5 11/17/2018 AMC 0.50 11/17/2018 ABC 0.10 11/17/2018 BASOPHILS 1 11/18/2018 MCV 91.7 11/18/2018 MCHC 33.5 11/18/2018 MPV 8.7 11/18/2018 RDW 15.6 11/18/2018 , Coagulation: No results found for: PT, PTT, INR, General Chemistry: Lab Results Component Value Date NA 142 11/18/2018 K 3.8 11/18/2018 CL 109 11/18/2018 GAP 3 11/18/2018 BUN 5 11/18/2018 CR 0.65 11/18/2018 GLU 121 11/18/2018 CA 8.1 11/18/2018 ALBUMIN 2.8 11/18/2018 OBSCA 0.94 10/13/2018 MG 2.0 11/18/2018 TOTBILI 0.2 11/18/2018 and Enzymes: Lab Results Component Value Date AST 70 11/18/2018 ALT 50 11/18/2018 ALKPHOS 134 11/18/2018 Point of Care Testing (Last 24 hours) Glucose: (!) 121 (11/18/18 3566) POC Glucose (Download): 82 (11/18/18 9702) Radiology and other Diagnostics Review: No radiology Israel Orourke MD, FACP Clinical Senior Case Manager Internal Medicine, [facility] Pager: [phone] ING GUIDE * Israel Orourke MD - 11/18/2018 11:06 AM FISHING GUIDE General Progress Note Name: Chelsea Castillo Today's Date: 11/18/2018 Admission Date: 11/15/2018 LOS: 3 days Assessment/Plan: Active Problems: Intractable cyclical vomiting with nausea Type 1 diabetes, uncontrolled, with neuropathy (HCC) Migraine with aura and with status migrainosus, not intractable Chronic abdominal pain Orthostatic hypotension Acquired hypothyroidism CLL (chronic lymphocytic leukemia) (HCC) Anxiety and depression Migraine headache 58yoF w/ PMH of CLL on active tx, DM1, migraine ROWE, hypothyroid, , chronic abd pain, anxiety and depression, seizure d/o, chronic abd pain w/ gastroparesis, arthritis on immunosuppression, recent LLE tib-fib fracture s/p ORIF admitted w / DKA Changes made to today's assessment and plan are indicated in bold. Type 1 DM, DKA on admit - endocrine consulted - now off of insulin gtt - decrease lantus to 16u QHS, aspart to 2u TID AC - LDCF Chronic abd pain, N/V - w/u to date has been unrevealing - cont PRN imodium, bentyl, sucralfate (pt uses her own liquid formulation) - cont lyrica - cont PPI Recent LLE tib fib fracture - s/p fixation on 10/14 - following w/ Dr. Manley - WBAT, cont CAM boot - cont PO morphine for pain control - decrease to 7.5mg-15mg Q8hr PRN, cont to titrate - cont scheduled tylenol CLL - following w/ heme, currently only have surveillance labs Orthostatic hypotension - cont florinef MDD, anxiety - cont [employer] L[employer]STOCK cymbalta, PRN BID Valium ?seizure d/o - cont tegretol Migraine ROWE - resolved ?inflammatory arthritis - HERNAN has been negative in the past along w/ dsDNA, RF, CCP - I discussed with the pt that given her negative immunologic/auto-immune w/u and given the side effects of plaquenil I recommend that we d/c this, she is in agreement wit this Hypothyroid - cont synthroid FEN: no IVF, replace lytes PRN, ADA diet Ppx: lovenox Code: Full Dispo: cont inpt admit, having hypoglycemic episodes. Discussed w/ endocrine will adjust insulin doses. Subjective Chelsea Julien Castillo is a 58 y.o. female. Patient w/o acute events overnight. No longer having N/V, did reports some mild abdominal pain after dinner last night. Denies any further headaches. Reports one loose stool last evening. ROS: neg for fevers, chills, dyspnea, chest pain, palpitations Medications Scheduled Meds: acetaminophen (TYLENOL) tablet 650 mg 650 mg Oral Q6H aspirin tablet 325 mg 325 mg Oral QDAY atorvastatin (LIPITOR) tablet 40 mg 40 mg Oral QDAY carBAMazepine (TEGRETOL) tablet 400 mg 400 mg Oral QDAY cetirizine (ZYRTEC) tablet 10 mg 10 mg Oral QAM8 duloxetine DR (CYMBALTA) capsule 90 mg 90 mg Oral QDAY enoxaparin (LOVENOX) syringe 40 mg 40 mg Subcutaneous QDAY(21) fludrocortisone (FLORINEF) tablet 0.3 mg 0.3 mg Oral QDAY fluticasone (FLONASE) nasal spray 1 spray 1 spray Each Nostril QDAY insulin aspart U-100 (NOVOLOG FLEXPEN) injection PEN 0-7 Units 0-7 Units Subcutaneous ACHS insulin aspart U-100 (NOVOLOG FLEXPEN) injection PEN 2 Units 2 Units Subcutaneous TID after meals insulin glargine (LANTUS SOLOSTAR, BASAGLAR) injection PEN 16 Units 16 Units Subcutaneous QDAY(12) levothyroxine (SYNTHROID) tablet 175 mcg 175 mcg Oral QDAY 30 min before breakfast montelukast (SINGULAIR) tablet 10 mg 10 mg Oral QHS oxybutynin XL (DITROPAN XL) tablet 5 mg 5 mg Oral QDAY pantoprazole DR (PROTONIX) tablet 40 mg 40 mg Oral QDAY pregabalin (LYRICA) capsule 150 mg 150 mg Oral BID Continuous Infusions: PRN and Respiratory Meds:acetaminophen/lidocaine/antacid DS(#) QID PRN, ALPRAZolam BID PRN, alteplase BID PRN, diphenhydrAMINE Q6H PRN, loperamide QID PRN, morphine Q8H PRN, ondansetron (ZOFRAN) IV Q6H PRN, promethazine Q8H PRN, tiZANidine Q6H PRN, zolpidem QHS PRN Objective Vital Signs: Last Filed Vital Signs: 24 Hour Range BP: 135/68 (11/18 959) Temp: 36.7 C (98.1 F) (11/18 959) Pulse: 74 (11/18 959) Respirations: 18 PER MINUTE (11/18 959) SpO2: 98 % (11/18 959) O2 Delivery: None (Room Air) (11/18 959) BP: (117-143)/(55-71) Temp: [36.6 C (97.8 F)-37.3 C (99.1 F)] Pulse: [74-97] Respirations: [18 PER MINUTE-19 PER MINUTE] SpO2: [95 %-98 %] O2 Delivery: None (Room Air) Intensity Pain Scale (Self Report): (P) 5 (11/18/18 0800) Vitals: 11/15/18 1508 11/15/182 Weight: 67.1 kg (147 lb 14.9 oz) 67.6 kg (149 lb 1.6 oz) Intake/Output Summary: (Last 24 hours) Intake/Output Summary (Last 24 hours) at 11/18/2018 1106 Last data filed at 11/17/2018 2115 Gross per 24 hour Intake 830 ml Output 0 ml Net 830 ml Stool Occurrence: 1 Physical Exam General: Alert, cooperative, no distress, appears stated age. Psych: flat affect Head: Normocephalic, without obvious abnormality, atraumatic. Neck: - JVD Eyes: Conjunctivae/corneas clear. Lungs: CTAB, no rales, no wheezing. Heart: Regular rate and rhythm, no MRG. Abdomen: Soft, non-tender. Bowel sounds normal. Extremities: LLE in CAM boot Pulses: 2+ radial pulses b/l Skin: Skin color, texture, turgor normal. No rashes or lesions. Lab Review Hematology: Lab Results Component Value Date HGB 10.6 11/18/2018 HCT 31.7 11/18/2018 PLTCT 199 11/18/2018 WBC 8.5 11/18/2018 NEUT 13 11/17/2018 ANC 2.72 11/18/2018 ANC 1.30 11/17/2018 LYMPH 51 11/18/2018 ALC 5.90 11/17/2018 EVELYN 5 11/17/2018 AMC 0.50 11/17/2018 ABC 0.10 11/17/2018 BASOPHILS 1 11/18/2018 MCV 91.7 11/18/2018 MCHC 33.5 11/18/2018 MPV 8.7 11/18/2018 RDW 15.6 11/18/2018 , Coagulation: No results found for: PT, PTT, INR, General Chemistry: Lab Results Component Value Date NA 142 11/18/2018 K 3.8 11/18/2018 CL 109 11/18/2018 GAP 3 11/18/2018 BUN 5 11/18/2018 CR 0.65 11/18/2018 GLU 121 11/18/2018 CA 8.1 11/18/2018 ALBUMIN 2.8 11/18/2018 OBSCA 0.94 10/13/2018 MG 2.0 11/18/2018 TOTBILI 0.2 11/18/2018 and Enzymes: Lab Results Component Value Date AST 70 11/18/2018 ALT 50 11/18/2018 ALKPHOS 134 11/18/2018 Point of Care Testing (Last 24 hours) Glucose: (!) 121 (11/18/18 5849) POC Glucose (Download): 82 (11/18/18 8551) Radiology and other Diagnostics Review: No radiology Israel Orourke MD, FACP Clinical Senior Case Manager Internal Medicine, [facility] Pager: [phone] ING GUIDE * Quincy Morris DO - 11/18/2018 9:30 AM FISHING GUIDE Endocrinology Consult Note Name: Chelsea Castillo Admission Date: 11/15/2018 Active Problems: Intractable cyclical vomiting with nausea Type 1 diabetes, uncontrolled, with neuropathy (HCC) Migraine with aura and with status migrainosus, not intractable Chronic abdominal pain Orthostatic hypotension Acquired hypothyroidism CLL (chronic lymphocytic leukemia) (HCC) Anxiety and depression Migraine headache Reason for Consult: "DKA" Assessment / Plan Chelsea Castillo is a 58 y.o. female with arthritis, chronic abdominal pain, cyclic vomiting syndrome, diabetes type 1, gastroparesis, CLL not on treatment,, hypothyroidism, depression, seizure disorder who presented to the hospital with worsening acute on chronic abdominal pain with nausea and vomiting and found to be in DKA. Endocrinology consulted for DKA management. 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 Avelar for diabetes management Diabetic-complications assessment: Retinopathy: yes. Peripheral neuropathy: yes Autonomic neuropathy: gastroparesis Nephropathy: no Macrovascular complications: no known CAD Risk Factor assessment Last lipid profile Lab Results Component Value Date CHOL 176 09/18/2018 TRIG 161 (H) 09/18/2018 HDL 53 09/18/2018 LDL 96 09/18/2018 VLDL 32 09/18/2018 NONHDLCHOL 123 09/18/2018 BP Readings from Last 1 Encounters: 11/18/18 136/68 On ACEi/ARB?: no On Statin?: no On admission anion gap 20, beta hydroxybutyrate 6.5, glucose 421 Hypothyroidism 11/16/2018 TSH 1.77 Impression / Recommendations Decreases Lantus 14 units daily Dec Aspart 2 units post meal dosing LDCF Pt was discussed with Staff physician Quincy Morris DO Pager [phone] Subjective: Chelsea Castillo is a 58 y.o. female Patient continues to have poor appetite but much less nausea and vomiting. She has had 2 separate bouts of hypoglycemia once after eating and another fasting this a.m. that persisted even after her morning meal. Physical Exam: Gen: A&O HEENT: EOMI Lungs: Non labored Abd: Non-distended Ext: No cyanosis Skin: No rashes Vital Signs: Last Filed In 24 Hours Vital Signs: 24 Hour Range BP: 136/68 (11/18 621) Temp: 36.9 C (98.4 F) (11/18 621) Pulse: 76 (11/18 621) Respirations: 18 PER MINUTE (11/18 621) SpO2: 98 % (11/18 621) O2 Delivery: None (Room Air) (11/18 621) BP: (117-143)/(55-71) Temp: [36.6 C (97.8 F)-37.3 C (99.1 F)] Pulse: [72-97] Respirations: [18 PER MINUTE-19 PER MINUTE] SpO2: [95 %-98 %] O2 Delivery: None (Room Air) Intensity Pain Scale (Self Report): 7 (11/18/18 0040) Medications: No current facility-administered medications on file prior to encounter. Current Outpatient Medications on File Prior to Encounter Medication Sig Dispense Refill acetaminophen/lidocaine/antacid DS(#) (GI COCKTAIL) 1:1:3 Take 30 mL by mouth four times daily as needed. 1 Bottle 11 ALPRAZolam (XANAX) 1 mg tablet Take 1 [...] Take one capsule by mouth twice daily. [address] (CYMBALTA) 30 mg capsule Take three capsules by mouth daily. ( Patient taking differently: Take 30 mg by mouth twice daily.) 30 capsule 1 ferrous gluconate (FERGON) 240 mg (27 mg iron) tablet Take one tablet by mouth daily. 30 tablet 1 fesoterodine ER(+) (TOVIAZ) 4 mg tablet Take [...] 100 unit/mL (3 mL) injection pen Inject 12 Units under the skin at bedtime daily. (Patient taking differently: Inject 13 Units under the skin at bedtime daily.) 15 mL 0 insulin lispro(+) (HUMALOG KWIKPEN INSULIN) 100 unit/mL injection PEN Inject 4 units subcutaneously with breakfast and lunch, and dinner. 45 mL 0 levocarnitine(+) (LEVOCARNITINE(+)) 500 mg tablet Take four tablets by mouth twice daily. (Patient taking differently: Take 1 tablet by mouth daily.) 240 tablet 1 levothyroxine (SYNTHROID) 175 mcg tablet Take 175 [...] tablet Take 40 mg by mouth daily. polyethylene glycol 3350 (MIRALAX) 17 g packet Take one packet by mouth daily as needed. 30 each 1 potassium chloride SR (K-DUR) 10 mEq tablet [...] May repeat in 2 hours if needed sucralfate(+) (CARAFATE) 100 mg/mL oral suspension Take 10 mL by mouth before meals and at bedtime. 414 mL 0 tiZANidine (ZANAFLEX) 4 mg tablet Take 4 mg by mouth at bedtime daily. vitamins, B complex tab Take one tablet by mouth daily. 30 tablet 1 vitamins, multiple tablet Take 1 tablet by mouth daily. zolpidem (AMBIEN) 10 mg tablet Take 10 mg by mouth at bedtime as needed for Sleep. Lab/Radiology/Other Diagnostic Tests: 24-hour labs: Results for orders placed or performed during the hospital encounter of (from the past 24 hour(s)) POC GLUCOSE Collection Time: 11/17/18 10:53 AM Result Value Ref Range Glucose, POC 148 (H) 70 - 100 MG/DL POC GLUCOSE Collection Time: 11/17/18 3:42 PM Result Value Ref Range Glucose, POC 142 (H) 70 - 100 MG/DL POC GLUCOSE Collection Time: 11/17/18 5:29 PM Result Value Ref Range Glucose, POC 66 (L) 70 - 100 MG/DL POC GLUCOSE Collection Time: 11/17/18 5:45 PM Result Value Ref Range Glucose, POC 73 70 - 100 MG/DL POC GLUCOSE Collection Time: 11/17/18 5:59 PM Result Value Ref Range Glucose, POC 142 (H) 70 - 100 MG/DL POC GLUCOSE Collection Time: 11/17/18 7:32 PM Result Value Ref Range Glucose, POC 158 (H) 70 - 100 MG/DL POC GLUCOSE Collection Time: 11/17/18 9:14 PM Result Value Ref Range Glucose, POC 215 (H) 70 - 100 MG/DL POC GLUCOSE Collection Time: 11/18/18 3:07 AM Result Value Ref Range Glucose, POC 136 (H) 70 - 100 MG/DL CBC AND DIFF Collection Time: 11/18/18 4:15 AM Result Value Ref Range White Blood Cells 8.5 4.5 - 11.0 K/UL RBC 3.46 (L) 4.0 - 5.0 M/UL Hemoglobin 10.6 (L) 12.0 - 15.0 GM/DL Hematocrit 31.7 (L) 36 - 45 % MCV 91.7 80 - 100 FL MCH 30.7 26 - 34 PG MCHC 33.5 32.0 - 36.0 G/DL RDW 15.6 (H) 11 - 15 % Platelet Count 199 150 - 400 K/UL MPV 8.7 7 - 11 FL Segmented Neutrophils 32 (L) 41 - 77 % Lymphocytes 51 (H) 24 - 44 % Monocytes 7 4 - 12 % Eosinophil 9 (H) 0 - 5 % Basophil 1 0 - 2 % Normal RBC Morph NORMAL Platelet Estimate NORMAL Absolute Neutrophil Count Manual 2.72 1.8 - 7.0 K/UL COMPREHENSIVE METABOLIC PANEL Collection Time: 11/18/18 4:15 AM Result Value Ref Range Sodium 142 137 - 147 MMOL/L Potassium 3.8 3.5 - 5.1 MMOL/L Chloride 109 98 - 110 MMOL/L Glucose 121 (H) 70 - 100 MG/DL Blood Urea Nitrogen 5 (L) 7 - 25 MG/DL Creatinine 0.65 0.4 - 1.00 MG/DL Calcium 8.1 (L) 8.5 - 10.6 MG/DL Total Protein 4.6 (L) 6.0 - 8.0 G/DL Total Bilirubin 0.2 (L) 0.3 - 1.2 MG/DL Albumin 2.8 (L) 3.5 - 5.0 G/DL Alk Phosphatase 134 (H) 25 - 110 U/L AST (SGOT) 70 (H) 7 - 40 U/L CO2 30 21 - 30 MMOL/L ALT (SGPT) 50 7 - 56 U/L Anion Gap 3 3 - 12 eGFR Non >60 >60 mL/min eGFR >60 >60 mL/min MAGNESIUM Collection Time: 11/18/18 4:15 AM Result Value Ref Range Magnesium 2.0 1.6 - 2.6 mg/dL PHOSPHORUS Collection Time: 11/18/18 4:15 AM Result Value Ref Range Phosphorus 3.3 2.0 - 4.5 MG/DL POC GLUCOSE Collection Time: 11/18/18 7:51 AM Result Value Ref Range Glucose, POC 74 70 - 100 MG/DL POC GLUCOSE Collection Time: 11/18/18 8:54 AM Result Value Ref Range Glucose, POC 82 70 - 100 MG/DL Glucose: (!) 121 (11/18/18 0418) POC Glucose (Download): 82 (11/18/18 8323) Pertinent radiology reviewed. ING GUIDE Associated attestation - Reji Sands MD - 11/18/2018 7:34 PM FISHING GUIDE ATTESTATION I personally performed the ortega portions of the E/M visit, discussed case with resident and concur with resident documentation of history, physical exam, assessment, and treatment plan unless otherwise noted. Staff name: Reji Sands MD Date: 11/18/2018 * Jessi Patel RN - 11/18/2018 8:18 AM FISHING GUIDE Patient's blood sugar was 74 this am. Team notified. Patient currently drinking orange juice. Will check blood sugar again in 30 minutes. ING GUIDE * Larry Mesa RN - 11/17/2018 6:10 PM FISHING GUIDE Pt. BG was 66 at 1730. Protocol followed. Gave her 12oz of juice and a package of joe crackers. Pt had severe shaking and responses were delayed. Called Charge Nurse, Lauren to help me assess patient. Vitals were: 11/17/18 1800 Vitals Pulse 97 Respirations 18 PER MINUTE SpO2 97 % O2 Delivery RA BP 143/71 Mean NBP (Calculated) 95 MM HG BP Source Arm, Right Upper BP Patient Position Dangle Rechecked BG at 1745 it was 73. Pt. still having delayed responses and shaking. Gave 25g 50% Dextrose per protocol. Rechecked BG at 1800 and it was 142. Patient talking to me normally and trace amount of shaking remaining. Pt. still working on joe crackers and another 8oz of OJ. Team notified. Pt. stated that they try to keep her BG between 100-150 because she can drop and or rise very quickly. He stated that he has had to give her rescue glucose at home a few times because of this. He also stated that her blood sugar can elevate rapidly even if she hasn't eaten anything all day. ING GUIDE * Selam Kan, PT - 11/17/2018 11:35 AM FISHING GUIDE PHYSICAL THERAPY ASSESSMENT / DC MOBILITY: Mobility Progressive Mobility Level: Walk in hallway Distance Walked (feet): 150 ft Level of Assistance: Stand by assistance Assistive Device: Walker Time Tolerated: 11-30 minutes Activity Limited By: No limitations SUBJECTIVE: Subjective Significant hospital events: abdominal pain, nausea, vomitting (recent hx of fall with L LE fracture) Mental / Cognitive Status: Alert;Oriented;Cooperative Persons Present: Occupational Therapist;Spouse(Simultaneous filing. User may not have seen previous data.) Pain: Patient complains of pain;Patient does not rate pain Pain Location: Abdomen(LLE) Pain Interventions: Patient agrees to participate in therapy;Nursing staff notified of patient's pain level;Treatment altered to patient's pain tolerance L LE Precautions: LLE WBAT: Weight Bearing As Tolerated;L Cam Boot(Simultaneous filing. User may not have seen previous data.) Ambulation Assist: Independent Mobility at Household Level with Device Patient Owned Equipment: Single Point Cane;Roller Walker Home Situation: Lives with Family Type of Home: House(Simultaneous filing. User may not have seen previous data.) Entry Stairs: 3-5 Stairs In-Home Stairs: No Stairs Comments: was having HHPT for ankle rehab BED MOBILITY/TRANSFERS: Bed Mobility/Transfers Bed Mobility: Supine to Sit: Independent Bed Mobility: Sit to Supine: Independent Transfer Type: Sit to/from Stand Transfer: Assistance Level: To/From;Bed;Modified Independent Transfer: Assistive Device: Roller Walker GAIT: Gait Gait Distance: 150 feet Gait: Assistance Level: Modified Independent Gait: Assistive Device: Roller Walker Gait: Descriptors: Decreased stance time LLE;Pace: Normal;No balance loss EDUCATION: Education Persons Educated: Patient Patient Barriers To Learning: None Noted Teaching Methods: Verbal Instruction Patient Response: Verbalized Understanding Topics: Plan/Goals of PT Interventions ASSESSMENT/PROGRESS: Assessment/Progress Assessment/Progress: Patient level of independence and safety is consistent with prior level of function and does not require physical therapy intervention AM-PAC 6 Clicks Basic Mobility Inpatient Turning from your back to your side while in a flat bed without using bed rails : None Moving from lying on your back to sitting on the side of a flatbed without using bedrails : None Moving to and from a bed to a chair (including a wheelchair): None Standing up from a chair using your arms (e.g. wheelchair, or bedside chair): None To walk in hospital room: None Climbing 3-5 steps with a railing: None Raw Score: 24 Standardized (T-scale) Score: 57.68 Basic Mobility [facility] 0-100%: 0 CMS G Code Modifier for Basic Mobility: CH G-Codes: Mobility G8978 Current Status: 0% Impairment G8979 Goal Status: 0% Impairment G8980 Discharge Status: 0% Impairment Based on above evaluation and clinical judgment. GOALS: Goals Goal Formulation: With Patient PLAN: Plan Plan Frequency: No Further Treatment RECOMMENDATIONS: PT Discharge Recommendations PT Discharge Recommendations: Home;Home Health Setting Equipment Recommendations: Patient owns necessary equipment Therapist: Selam Kan PT Date: 11/17/2018 ING GUIDE * Picicci, Anna, OT - 11/17/2018 11:30 AM FISHING GUIDE OCCUPATIONAL THERAPY ASSESSMENT/DISCHARGE NOTE Patient Name: Chelsea Castillo Room/Bed: XV9322/01 Admitting Diagnosis: Mobility Progressive Mobility Level: Walk in hallway Distance Walked (feet): 150 ft Level of Assistance: Stand by assistance Assistive Device: Walker Time Tolerated: 11-30 minutes Activity Limited By: No limitations Subjective Pertinent Dx per Physician: PMH: CLL not on treatment, type 1 diabetes with diabetic gastroparesis, history of migraine headache, hypothyroidism, depression , seizure disorder, chronic abdominal pain, arthritis who was recently discharged after fall and fracture at home on 10/17/2018, presented to the hospital with complaints of worsening abdominal pain associated with nausea and vomiting along with a worsening of migraine headache and was found to be in DKA Precautions: Falls L LE Precautions: L Cam Boot;LLE WBAT: Weight Bearing As Tolerated Pain / Complaints: Patient agrees to participate in therapy Pain Location: Left;Foot Pain Level Current: (Pt does not rate - asks for pain medication, RN notified) Objective Psychosocial Status: Willing and Cooperative to Participate Persons Present: Physical Therapist;Family Home Living Type of Home: House Home Layout: Performs ADL'S on One Level;Stairs to Enter w/o Rails(4 steps to enter) Bathroom Shower / Tub: Tub/Shower Unit;Walk-in Shower Bathroom Toilet: Standard Bathroom Equipment: Toilet Riser Bathroom Accessibility: Accessible via Walker Home Equipment: Walker;Cane Prior Function Level Of [place]: Independent with ADLs and functional transfers Lives With: Spouse Receives Help From: None Needed Other Function Comments: Spouse is retired and available 11/06. ADL's Where Assessed: Edge of Bed;Standing at Sink Grooming Assist: Stand By Assist Grooming Deficits: Supervision/Safety;Standing With Assistive Device;Wash/Dry Hands Functional Transfer Assist: Stand By Assist Functional Transfer Deficits: (supine<>sit, sit<>stand) Comment: Pt supine upon OT arrival. Pt completed functional mobility with stand by assist + roller walker. Pt declined further ADL completion at this time. Pt supine at OT departure with all needs within reach. Activity Tolerance Endurance: 2/5 Tolerates 10-20 Minutes Exercise w/Multiple Rests Sitting Balance: 4/5 Moves/Returns Trunkal Midpoint 1-2 Inches in Multiple Planes Cognition Overall Cognitive Status: WFL to Adequately Complete Self Care Tasks Safely Attention: Awake/Alert UE AROM Comment: BUE AROM WFL Sensory Overall Sensory: Pt Perceives Pressure in Both UEs in Gross Exam Comment: Pt denies numbness/tingling in BUE. UE Strength / Tone Overall Strength / Tone: WFL Able to Perform ADL Tasks Education Persons Educated: Patient Barriers To Learning: None Noted Teaching Methods: Verbal Instruction;Demonstration Patient Response: Verbalized and Demo Understanding Topics: Role of OT, Goals for Therapy;ADL Compensatory Techniques Goal Formulation: With Patient Assessment Prognosis: Good;w/ Family Goal Formulation: Patient No Skilled OT: No Acute OT Goals Identified AM-PAC 6 Clicks Daily Activity Inpatient Putting on and taking off regular lower body clothes?: A Little Bathing (Including washing, rinsing, drying): A Little Toileting, which includes using toilet, bedpan, or urinal: None Putting on and taking off regular upper body clothing: None Taking care of personal grooming such as brushing teeth: None Eating meals?: None Daily Activity Raw Score: 22 Standardized (t-scale) score: 47.1 CMS 0-100% Score: 25.8 CMS G Code Modifier: CJ Plan OT Frequency: No Further Treatment OT Discharge Recommendations OT Discharge Recommendations: Home with family assist Equipment Recommendations: Patient owns necessary equipment G-Codes: Self-care G8987 Current Status: 20-39% Impairment G8988 Goal Status: 20-39% Impairment G8989 Discharge Status: 20-39% Impairment Based on above evaluation and clinical judgment. Therapist: [place] [id number] Date: 11/17/2018 ING GUIDE * Israel Orourke MD - 11/17/2018 11:06 AM FISHING GUIDE General Progress Note Name: Chelsea Castillo Today's Date: 11/17/2018 Admission Date: 11/15/2018 LOS: 2 days Assessment/Plan: Active Problems: Intractable cyclical vomiting with nausea Type 1 diabetes, uncontrolled, with neuropathy (HCC) Migraine with aura and with status migrainosus, not intractable Chronic abdominal pain Orthostatic hypotension Acquired hypothyroidism CLL (chronic lymphocytic leukemia) (HCC) Anxiety and depression Migraine headache 58yoF w/ PMH of CLL on active tx, DM1, migraine ROWE, hypothyroid, , chronic abd pain, anxiety and depression, seizure d/o, chronic abd pain w/ gastroparesis, arthritis on immunosuppression, recent LLE tib-fib fracture s/p ORIF admitted w / DKA Changes made to today's assessment and plan are indicated in bold. Type 1 DM, DKA on admit - endocrine consulted - now off of insulin gtt - cont lantus 18u QHS, aspart 4u TID AC - LDCF - resume ADA diet Chronic abd pain, N/V - w/u to date has been unrevealing - cont PRN imodium, bentyl, sucralfate - cont lyrica - cont PPI Recent LLE tib fib fracture - s/p fixation on 10/14 - following w/ Dr. Manley - WBAT, cont CAM boot - cont PO morphine for pain control - will need to start titrating as this was for post-op pain only - cont scheduled tylenol CLL - following w/ heme, currently only have surveillance labs Orthostatic hypotension - cont florinef MDD, anxiety - cont [employer]OCK cymbalta, PRN BID Valium ?seizure d/o - cont tegretol Migraine ROWE - cont migraine cocktail PRN through today and then d/c ?inflammatory arthritis - cont plaquenil - HERNAN has been negative in the past along w/ dsDNA, RF, CCP Hypothyroid - cont synthroid FEN: no IVF, replace lytes PRN, ADA diet Ppx: lovenox Code: Full Dispo: cont inpt admit, sugars are now well controlled, will start on ADA diet. Will need to start to titrate opiates. Subjective Chelsea Victoria Issa Castillo is a 58 y.o. female. Patient w/o acute events overnight. No longer having N/V and reports her ROWE is much better. Has been tolerating liquid diet w/o worsening symptoms. Still having some soreness in her LLE from her surgery. ROS: neg for fevers, chills, dyspnea, chest pain, palpitations Medications Scheduled Meds: acetaminophen (TYLENOL) tablet 650 mg 650 mg Oral Q6H aspirin tablet 325 mg 325 mg Oral QDAY atorvastatin (LIPITOR) tablet 40 mg 40 mg Oral QDAY carBAMazepine (TEGRETOL) tablet 400 mg 400 mg Oral QDAY cetirizine (ZYRTEC) tablet 10 mg 10 mg Oral QAM8 duloxetine DR (CYMBALTA) capsule 90 mg 90 mg Oral QDAY enoxaparin (LOVENOX) syringe 40 mg 40 mg Subcutaneous QDAY(21) fludrocortisone (FLORINEF) tablet 0.3 mg 0.3 mg Oral QDAY fluticasone (FLONASE) nasal spray 1 spray 1 spray Each Nostril QDAY hydroxychloroquine (PLAQUENIL) tablet 200 mg 200 mg Oral QDAY insulin aspart U-100 (NOVOLOG FLEXPEN) injection PEN 0-7 Units 0-7 Units Subcutaneous ACHS insulin aspart U-100 (NOVOLOG FLEXPEN) injection PEN 4 Units 4 Units Subcutaneous TID after meals insulin glargine (LANTUS SOLOSTAR, BASAGLAR) injection PEN 18 Units 18 Units Subcutaneous QDAY(12) levothyroxine (SYNTHROID) tablet 175 mcg 175 mcg Oral QDAY 30 min before breakfast montelukast (SINGULAIR) tablet 10 mg 10 mg Oral QHS oxybutynin XL (DITROPAN XL) tablet 5 mg 5 mg Oral QDAY pantoprazole DR (PROTONIX) tablet 40 mg 40 mg Oral QDAY pregabalin (LYRICA) capsule 150 mg 150 mg Oral BID Continuous Infusions: PRN and Respiratory Meds:acetaminophen/lidocaine/antacid DS(#) QID PRN, ALPRAZolam BID PRN, alteplase BID PRN, diphenhydrAMINE Q6H PRN, ketorolac ( TORADOL) 15-30 mg injection Q6H PRN, loperamide QID PRN, magnesium sulfate Q6H PRN, morphine Q4H PRN, ondansetron (ZOFRAN) IV Q6H PRN, promethazine Q8H PRN, tiZANidine Q6H PRN, zolpidem QHS PRN Objective Vital Signs: Last Filed Vital Signs: 24 Hour Range BP: 120/61 (11/17 1024) Temp: 36.7 C (98.1 F) (11/17 1024) Pulse: 72 (11/17 1024) Respirations: 18 PER MINUTE (11/17 1024) SpO2: 98 % (11/17 1024) O2 Delivery: None (Room Air) (11/17 0629) BP: (94-155)/(46-73) Temp: [36.5 C (97.7 F)-37.2 C (99 F)] Pulse: [64-91] Respirations: [17 PER MINUTE-19 PER MINUTE] SpO2: [94 %-99 %] O2 Delivery: None (Room Air) Intensity Pain Scale (Self Report): 7 (11/17/18 0830) Vitals: 11/15/18 1508 11/15/182 Weight: 67.1 kg (147 lb 14.9 oz) 67.6 kg (149 lb 1.6 oz) Intake/Output Summary: (Last 24 hours) Intake/Output Summary (Last 24 hours) at 11/17/2018 1106 Last data filed at 11/17/2018 0900 Gross per 24 hour Intake 520 ml Output 1250 ml Net -730 ml Stool Occurrence: 0 Physical Exam General: Alert, cooperative, no distress, appears stated age. Psych: flat affect Head: Normocephalic, without obvious abnormality, atraumatic. Neck: - JVD Eyes: Conjunctivae/corneas clear. Lungs: CTAB, no rales, no wheezing. Heart: Regular rate and rhythm, no MRG. Abdomen: Soft, non-tender. Bowel sounds normal. Extremities: LLE in CAM boot Pulses: 2+ radial pulses b/l Skin: Skin color, texture, turgor normal. No rashes or lesions. Lab Review Hematology: Lab Results Component Value Date HGB 9.8 11/17/2018 HCT 29.8 11/17/2018 PLTCT 200 11/17/2018 WBC 9.7 11/17/2018 NEUT 13 11/17/2018 ANC 1.30 11/17/2018 LYMPH 53 09/27/2018 ALC 5.90 11/17/2018 EVELYN 5 11/17/2018 AMC 0.50 11/17/2018 ABC 0.10 11/17/2018 BASOPHILS 1 09/27/2018 MCV 92.5 11/17/2018 MCHC 32.7 11/17/2018 MPV 8.5 11/17/2018 RDW 15.9 11/17/2018 , Coagulation: No results found for: PT, PTT, INR, General Chemistry: Lab Results Component Value Date NA 139 11/17/2018 K 3.7 11/17/2018 CL 111 11/17/2018 GAP 3 11/17/2018 BUN 4 11/17/2018 CR 0.70 11/17/2018 GLU 160 11/17/2018 CA 7.9 11/17/2018 ALBUMIN 2.7 11/17/2018 OBSCA 0.94 10/13/2018 MG 1.9 11/17/2018 TOTBILI 0.2 11/17/2018 and Enzymes: Lab Results Component Value Date AST 26 11/17/2018 ALT 17 11/17/2018 ALKPHOS 112 11/17/2018 Point of Care Testing (Last 24 hours) Glucose: (!) 160 (11/17/18 0820) POC Glucose (Download): (!) 148 (11/17/18 1053) Radiology and other Diagnostics Review: Pertinent radiology reviewed. Israel Orourke MD, [facility] Clinical Senior Case Manager Internal Medicine, [facility] Pager: [phone] ING GUIDE * Bhavana Matthews RN - 11/17/2018 5:39 AM FISHING GUIDE Patient's port is not drawing back this AM. Attempted multiple turbulent flushes , repositioning, deep breathing, and coughing. Patient refusing peripheral sticks at this time for AM labs. Sent text page to on-call provider (tracking # [id number]) requesting orders as appropriate. ING GUIDE * Bhavana Matthews RN - 11/16/2018 6:45 PM FISHING GUIDE Admission skin assessment completed by: Bhavana Sarabia RN and Larry Bhandari RN Pressure Injury Present on Hospital Admission (within 24 hours): No 1. Occiput: No 2. Ear: No 3. Scapula: No 4. Spinous Process: No 5. Shoulder: No 6. Elbow: No 7. Iliac Crest: No 8. Sacrum/Coccyx: No 9. Ischial Tuberosity: No 10. Trochanter: No 11. Knee: No 12. Malleolus: No 13. Heel: No 14. Toes: No 15. Assessed for device associated injury: Yes 16. Nursing Nutrition Assessment Completed: No See Doc Flowsheet for additional wound details. INTERVENTIONS: Small abrasion on on left foot, surgical incision on left ankle. ING GUIDE * Daron Bradley, - 11/16/2018 2:33 PM FISHING GUIDE General Progress Note Name: Chelsea Victoria Issa Jonathan Today's Date: 11/16/2018 Admission Date: 11/15/2018 LOS: 1 day Assessment/Plan: Active Problems: DKA (diabetic ketoacidoses) (HCC) Migraine headache 58 y.o. female with past medical history of CLL not on treatment, type 1 diabetes with diabetic gastroparesis, history of migraine headache, hypothyroidism, depression, seizure disorder, chronic abdominal pain, arthritis who was recently discharged after fall and fracture at home on 10/17/2018, presented to the hospital with complaints of worsening abdominal pain associated with nausea and vomiting along with a worsening of migraine headache and was found to be in DKA. Diabetic ketoacidosis Cyclic vomiting syndrome -Anion gap of 20 on admission with positive ketones in urine as well as blood. -She she received 2 L of fluid in the ER, will give 3 additional liters of fluid and monitor BMP q. 6 along with magnesium and phosphorus. Plan -Endocrine consult -anion gap has now normalized. Plan to transition to 18 units of lantus and titrate of insulin drip at noon with 2 hour overalp -Clear liquid diet advance as tolerated. Migraine headache -Suspected precipitated because of inadequate sleep at nighttime. CT head in the ER did not show any acute finding. -Start headache cocktail with Toradol, magnesium and Benadryl. -Avoid opiates as it can worsen migraine headache and can have rebound headache. Type 1 diabetes with diabetic gastroparesis -Hold LAB[employer]ER LIVESTOCK long-acting and short-acting insulin regimen with DKA. Insulin drip as above. -Discussed regarding reducing the dose of opiates which can worsen her gastroparesis and can cause recurrent flareups. Chronic abdominal pain -Patient reported abdominal pain is chronic from gastroparesis and has mildly worsened from her nausea and vomiting and is not significantly worse. Offered CT scan though she wanted to treat it conservatively. -Continue to monitor for now. -If worsens consider CT of the abdomen. -Continue LAB[employer] L[employer]STOCK morphine oral solution. PRN fentanyl for breakthrough pain. - Continue Anxiety/depression/seizure disorder -Continue [employer] L[employer]STOCK Xanax, Tegretol, Lyrica Hypothyroidism -Continue LAB[employer] L[employer]STOCK Synthroid Other medical problems -Continue Plaquenil. Continue Singulair. Continue Florinef. FEN -D5 half NS 20 KCl at 75 cc/h with insulin drip./titrate off today as above -Electrolytes are as above: K+ replaced -Diabetic clear liquid diet for today and advance as tolerated Prophylaxis -Lovenox Disposition -Continue inpatient management Complexity decision making high because of DKA/migraine headache. Subjective Chelsea Victoria Issa Castillo is a 58 y.o. female. Patient seen and examined. She has abdominal pain which is a little bit better today but appetite is poor and still feels nauseas. Denies fevers, chills,, chest pain or shortness of air. Medications Scheduled Meds: acetaminophen (TYLENOL) tablet 650 mg 650 mg Oral Q6H aspirin tablet 325 mg 325 mg Oral QDAY atorvastatin (LIPITOR) tablet 40 mg 40 mg Oral QDAY carBAMazepine (TEGRETOL) tablet 400 mg 400 mg Oral QDAY cetirizine (ZYRTEC) tablet 10 mg 10 mg Oral QAM8 duloxetine DR (CYMBALTA) capsule 90 mg 90 mg Oral QDAY enoxaparin (LOVENOX) syringe 40 mg 40 mg Subcutaneous QDAY(21) fludrocortisone (FLORINEF) tablet 0.3 mg 0.3 mg Oral QDAY fluticasone (FLONASE) nasal spray 1 spray 1 spray Each Nostril QDAY hydroxychloroquine (PLAQUENIL) tablet 200 mg 200 mg Oral QDAY insulin aspart U-100 (NOVOLOG FLEXPEN) injection PEN 0-7 Units 0-7 Units Subcutaneous ACHS insulin aspart U-100 (NOVOLOG FLEXPEN) injection PEN 4 Units 4 Units Subcutaneous TID after meals insulin glargine (LANTUS SOLOSTAR, BASAGLAR) injection PEN 18 Units 18 Units Subcutaneous QDAY(12) levothyroxine (SYNTHROID) tablet 175 mcg 175 mcg Oral QDAY 30 min before breakfast montelukast (SINGULAIR) tablet 10 mg 10 mg Oral QHS oxybutynin XL (DITROPAN XL) tablet 5 mg 5 mg Oral QDAY pantoprazole DR (PROTONIX) tablet 40 mg 40 mg Oral QDAY pregabalin (LYRICA) capsule 150 mg 150 mg Oral BID Continuous Infusions: dextrose 5 % & 0.45% NaCl with KCl 20 mEq/L infusion 75 mL/hr at 11/16/18 1200 insulin regular (NOVOLIN R) 100 Units in sodium chloride 0.9% (NS) 100 mL IV drip (std conc) Stopped (11/16/18 1357) PRN and Respiratory Meds:acetaminophen/lidocaine/antacid DS(#) QID PRN, ALPRAZolam BID PRN, diphenhydrAMINE Q6H PRN, fentaNYL citrate PF Q2H PRN, ketorolac (TORADOL) 15-30 mg injection Q6H PRN, loperamide QID PRN, magnesium sulfate Q6H PRN, morphine Q4H PRN, ondansetron (ZOFRAN) IV Q6H PRN, promethazine Q8H PRN, tiZANidine Q6H PRN, zolpidem QHS PRN Review of Systems: Rest of 14 ROS is negative other than what is stated in subjective Objective: Vital Signs: Last Filed Vital Signs: 24 Hour Range BP: 119/58 (11/16 1410) Temp: 36.8 C (98.3 F) (11/16 1410) Pulse: 85 (11/16 1410) Respirations: 17 PER MINUTE (11/16 1410) SpO2: 97 % (11/16 1410) O2 Delivery: None (Room Air) (11/16 1410) SpO2 Pulse: 100 (11/15 2015) Height: 165.1 cm (65") (11/15 2052) BP: (117-180)/(48-81) Temp: [36.6 C (97.8 F)-37.5 C (99.5 F)] Pulse: [76-102] Respirations: [17 PER MINUTE-29 PER MINUTE] SpO2: [96 %-100 %] O2 Delivery: None (Room Air) Intensity Pain Scale (Self Report): 8 (11/16/18 1200) Intensity Pain Scale (Self Report): 6 (11/16/18 1200) Vitals: 11/15/18 1508 11/15/182 Weight: 67.1 kg (147 lb 14.9 oz) 67.6 kg (149 lb 1.6 oz) Intake/Output Summary: (Last 24 hours) Intake/Output Summary (Last 24 hours) at 11/16/2018 1434 Last data filed at 11/16/2018 1200 Gross per 24 hour Intake 230 ml Output 250 ml Net -20 ml Stool Occurrence: 0 Physical Exam General: Alert, cooperative, no distress, appears stated age Head: Normocephalic, without obvious abnormality, atraumatic Lungs: Clear to auscultation bilaterally Heart: Regular rate and rhythm, S1, S2 normal, no murmur, click rub or gallop Abdomen: Soft, non-tender. Bowel sounds normal. No masses. No organomegaly. Extremities: Extremities normal, atraumatic, no cyanosis or edema Lab Review 24-hour labs: Results for orders placed or performed during the hospital encounter of (from the past 24 hour(s)) CBC AND DIFF Collection Time: 11/15/18 3:16 PM Result Value Ref Range White Blood Cells 13.2 (H) 4.5 - 11.0 K/UL RBC 4.34 4.0 - 5.0 M/UL Hemoglobin 13.2 12.0 - 15.0 GM/DL Hematocrit 39.6 36 - 45 % MCV 91.4 80 - 100 FL MCH 30.4 26 - 34 PG MCHC 33.2 32.0 - 36.0 G/DL RDW 15.8 (H) 11 - 15 % Platelet Count 281 150 - 400 K/UL MPV 8.9 7 - 11 FL Neutrophils 64 41 - 77 % Lymphocytes 24 24 - 44 % Monocytes 5 4 - 12 % Eosinophils 7 (H) 0 - 5 % Basophils 0 0 - 2 % Absolute Neutrophil Count 8.30 (H) 1.8 - 7.0 K/UL Absolute Lymph Count 3.20 1.0 - 4.8 K/UL Absolute Monocyte Count 0.70 0 - 0.80 K/UL Absolute Eosinophil Count 1.00 (H) 0 - 0.45 K/UL Absolute Basophil Count 0.10 0 - 0.20 K/UL COMPREHENSIVE METABOLIC PANEL Collection Time: 11/15/18 3:16 PM Result Value Ref Range Sodium 131 (L) 137 - 147 MMOL/L Potassium 3.8 3.5 - 5.1 MMOL/L Chloride 93 (L) 98 - 110 MMOL/L Glucose 421 (H) 70 - 100 MG/DL Blood Urea Nitrogen 11 7 - 25 MG/DL Creatinine 0.79 0.4 - 1.00 MG/DL Calcium 9.3 8.5 - 10.6 MG/DL Total Protein 6.6 6.0 - 8.0 G/DL Total Bilirubin 0.4 0.3 - 1.2 MG/DL Albumin 3.9 3.5 - 5.0 G/DL Alk Phosphatase 150 (H) 25 - 110 U/L AST (SGOT) 18 7 - 40 U/L CO2 18 (L) 21 - 30 MMOL/L ALT (SGPT) 14 7 - 56 U/L Anion Gap 20 (H) 3 - 12 eGFR Non >60 >60 mL/min eGFR >60 >60 mL/min LIPASE Collection Time: 11/15/18 3:16 PM Result Value Ref Range Lipase 9 (L) 11 - 82 U/L TSH WITH FREE T4 REFLEX Collection Time: 11/15/18 3:16 PM Result Value Ref Range TSH 0.690 0.35 - 5.00 MCU/ML MAGNESIUM Collection Time: 11/15/18 3:16 PM Result Value Ref Range Magnesium 2.0 1.6 - 2.6 mg/dL CULTURE-BLOOD W/SENSITIVITY Collection Time: 11/15/18 3:16 PM Result Value Ref Range Battery Name BLOOD CULTURE Specimen Description BLOOD L PORT Special Requests NONE Culture NO GROWTH 1 DAY Report Status TROPONIN-I Collection Time: 11/15/18 3:16 PM Result Value Ref Range Troponin-I <0.01 0.0 - 0.05 NG/ML POC GLUCOSE Collection Time: 11/15/18 3:17 PM Result Value Ref Range Glucose, POC 366 (H) 70 - 100 MG/DL BLOOD GASES, PERIPHERAL VENOUS Collection Time: 11/15/18 3:19 PM Result Value Ref Range pH-Venous 7.33 7.30 - 7.40 PCO2-Venous 35 (L) 36 - 50 MMHG PO2-Venous 47 33 - 48 MMHG Base Deficit-Venous 6.7 MMOL/L O2 Sat-Venous 77.6 (H) 55 - 71 % [id number] 18.7 MMOL/L POC LACTATE Collection Time: 11/15/18 3:22 PM Result Value Ref Range LACTIC ACID POC 2.4 (H) 0.5 - 2.0 MMOL/L BETA HYDROXYBUTYRATE (KETONES) Collection Time: 11/15/18 3:27 PM Result Value Ref Range Beta Hydroxybutyrate 6.5 (H) <0.3 MMOL/L OSMOLALITY Collection Time: 11/15/18 3:27 PM Result Value Ref Range Osmolality 297 280 - 307 MOSMOL/KG URINALYSIS DIPSTICK Collection Time: 11/15/18 3:28 PM Result Value Ref Range Color,UA YELLOW Turbidity,UA CLEAR CLEAR-CLEAR Specific [place]-Urine 1.028 1.003 - 1.035 pH,UA 5.0 5.0 - 8.0 Protein,UA 1+ (A) NEG-NEG Glucose,UA 3+ (A) NEG-NEG Ketones,UA 2+ (A) NEG-NEG Bilirubin,UA NEG NEG-NEG Blood,UA NEG NEG-NEG Urobilinogen,UA NORMAL NORM-NORMAL Nitrite,UA NEG NEG-NEG Leukocytes,UA NEG NEG-NEG Urine Ascorbic Acid, UA NEG NEG-NEG URINALYSIS, MICROSCOPIC Collection Time: 11/15/18 3:28 PM Result Value Ref Range WBCs,UA 0-2 0 - 2 /HPF RBCs,UA 0-2 0 - 3 /HPF MucousUA TRACE Bacteria,UA FEW (A) NEG-NEG Squamous Epithelial Cells 0-2 0 - 5 POC GLUCOSE Collection Time: 11/15/18 4:57 PM Result Value Ref Range Glucose, POC 357 (H) 70 - 100 MG/DL POC GLUCOSE Collection Time: 11/15/18 5:53 PM Result Value Ref Range Glucose, POC 318 (H) 70 - 100 MG/DL POC GLUCOSE Collection Time: 11/15/18 6:26 PM Result Value Ref Range Glucose, POC 279 (H) 70 - 100 MG/DL POC GLUCOSE Collection Time: 11/15/18 7:05 PM Result Value Ref Range Glucose, POC 247 (H) 70 - 100 MG/DL POC GLUCOSE Collection Time: 11/15/18 7:43 PM Result Value Ref Range Glucose, POC 231 (H) 70 - 100 MG/DL POC LACTATE Collection Time: 11/15/18 7:58 PM Result Value Ref Range LACTIC ACID POC 1.4 0.5 - 2.0 MMOL/L CULTURE-BLOOD W/SENSITIVITY Collection Time: 11/15/18 8:00 PM Result Value Ref Range Battery Name BLOOD CULTURE Specimen Description BLOOD RIGHT WRIST PEDS FAN BOTTLE Special Requests Culture performed on specimen with less than the recommended volume of 10 ml/bottle. Decreased volume will affect sensitivity of culture. Culture NO GROWTH 1 DAY Report Status BASIC METABOLIC PANEL Collection Time: 11/15/18 8:00 PM Result Value Ref Range Sodium 135 (L) 137 - 147 MMOL/L Potassium 3.3 (L) 3.5 - 5.1 MMOL/L Chloride 103 98 - 110 MMOL/L CO2 19 (L) 21 - 30 MMOL/L Anion Gap 13 (H) 3 - 12 Glucose 263 (H) 70 - 100 MG/DL Blood Urea Nitrogen 10 7 - 25 MG/DL Creatinine 0.71 0.4 - 1.00 MG/DL Calcium 8.2 (L) 8.5 - 10.6 MG/DL eGFR Non >60 >60 mL/min eGFR >60 >60 mL/min MAGNESIUM Collection Time: 11/15/18 8:00 PM Result Value Ref Range Magnesium 2.1 1.6 - 2.6 mg/dL PHOSPHORUS Collection Time: 11/15/18 8:00 PM Result Value Ref Range Phosphorus 2.5 2.0 - 4.5 MG/DL POC GLUCOSE Collection Time: 11/15/18 8:51 PM Result Value Ref Range Glucose, POC 189 (H) 70 - 100 MG/DL POC GLUCOSE Collection Time: 11/15/18 10:03 PM Result Value Ref Range Glucose, POC 190 (H) 70 - 100 MG/DL POC GLUCOSE Collection Time: 11/15/18 11:20 PM Result Value Ref Range Glucose, POC 192 (H) 70 - 100 MG/DL POC GLUCOSE Collection Time: 11/16/18 12:27 AM Result Value Ref Range Glucose, POC 177 (H) 70 - 100 MG/DL POC GLUCOSE Collection Time: 11/16/18 1:30 AM Result Value Ref Range Glucose, POC 157 (H) 70 - 100 MG/DL MAGNESIUM Collection Time: 11/16/18 1:45 AM Result Value Ref Range Magnesium 2.0 1.6 - 2.6 mg/dL PHOSPHORUS Collection Time: 11/16/18 1:45 AM Result Value Ref Range Phosphorus 2.6 2.0 - 4.5 MG/DL CBC AND DIFF Collection Time: 11/16/18 1:45 AM Result Value Ref Range White Blood Cells 14.2 (H) 4.5 - 11.0 K/UL RBC 3.29 (L) 4.0 - 5.0 M/UL Hemoglobin 10.1 (L) 12.0 - 15.0 GM/DL Hematocrit 30.1 (L) 36 - 45 % MCV 91.4 80 - 100 FL MCH 30.8 26 - 34 PG MCHC 33.6 32.0 - 36.0 G/DL RDW 15.6 (H) 11 - 15 % Platelet Count 199 150 - 400 K/UL MPV 9.0 7 - 11 FL Neutrophils 33 (L) 41 - 77 % Lymphocytes 52 (H) 24 - 44 % Monocytes 3 (L) 4 - 12 % Eosinophils 11 (H) 0 - 5 % Basophils 1 0 - 2 % Absolute Neutrophil Count 4.70 1.8 - 7.0 K/UL Absolute Lymph Count 7.40 (H) 1.0 - 4.8 K/UL Absolute Monocyte Count 0.40 0 - 0.80 K/UL Absolute Eosinophil Count 1.60 (H) 0 - 0.45 K/UL Absolute Basophil Count 0.10 0 - 0.20 K/UL COMPREHENSIVE METABOLIC PANEL Collection Time: 11/16/18 1:45 AM Result Value Ref Range Sodium 137 137 - 147 MMOL/L Potassium 3.8 3.5 - 5.1 MMOL/L Chloride 110 98 - 110 MMOL/L Glucose 169 (H) 70 - 100 MG/DL Blood Urea Nitrogen 8 7 - 25 MG/DL Creatinine 0.68 0.4 - 1.00 MG/DL Calcium 7.9 (L) 8.5 - 10.6 MG/DL Total Protein 4.6 (L) 6.0 - 8.0 G/DL Total Bilirubin 0.2 (L) 0.3 - 1.2 MG/DL Albumin 2.8 (L) 3.5 - 5.0 G/DL Alk Phosphatase 110 25 - 110 U/L AST (SGOT) 14 7 - 40 U/L CO2 23 21 - 30 MMOL/L ALT (SGPT) 10 7 - 56 U/L Anion Gap 4 3 - 12 eGFR Non >60 >60 mL/min eGFR >60 >60 mL/min TSH WITH FREE T4 REFLEX Collection Time: 11/16/18 1:45 AM Result Value Ref Range TSH 1.770 0.35 - 5.00 MCU/ML POC GLUCOSE Collection Time: 11/16/18 2:33 AM Result Value Ref Range Glucose, POC 135 (H) 70 - 100 MG/DL POC GLUCOSE Collection Time: 11/16/18 3:38 AM Result Value Ref Range Glucose, POC 117 (H) 70 - 100 MG/DL POC GLUCOSE Collection Time: 11/16/18 4:24 AM Result Value Ref Range Glucose, POC 112 (H) 70 - 100 MG/DL POC GLUCOSE Collection Time: 11/16/18 5:27 AM Result Value Ref Range Glucose, POC 95 70 - 100 MG/DL POC GLUCOSE Collection Time: 11/16/18 6:29 AM Result Value Ref Range Glucose, POC 124 (H) 70 - 100 MG/DL POC GLUCOSE Collection Time: 11/16/18 7:34 AM Result Value Ref Range Glucose, POC 174 (H) 70 - 100 MG/DL BASIC METABOLIC PANEL Collection Time: 11/16/18 8:19 AM Result Value Ref Range Sodium 137 137 - 147 MMOL/L Potassium 3.8 3.5 - 5.1 MMOL/L Chloride 108 98 - 110 MMOL/L CO2 23 21 - 30 MMOL/L Anion Gap 6 3 - 12 Glucose 227 (H) 70 - 100 MG/DL Blood Urea Nitrogen 7 7 - 25 MG/DL Creatinine 0.66 0.4 - 1.00 MG/DL Calcium 8.2 (L) 8.5 - 10.6 MG/DL eGFR Non >60 >60 mL/min eGFR >60 >60 mL/min MAGNESIUM Collection Time: 11/16/18 8:19 AM Result Value Ref Range Magnesium 1.9 1.6 - 2.6 mg/dL PHOSPHORUS Collection Time: 11/16/18 8:19 AM Result Value Ref Range Phosphorus 3.2 2.0 - 4.5 MG/DL POC GLUCOSE Collection Time: 11/16/18 8:29 AM Result Value Ref Range Glucose, POC 181 (H) 70 - 100 MG/DL POC GLUCOSE Collection Time: 11/16/18 9:33 AM Result Value Ref Range Glucose, POC 197 (H) 70 - 100 MG/DL POC GLUCOSE Collection Time: 11/16/18 10:37 AM Result Value Ref Range Glucose, POC 208 (H) 70 - 100 MG/DL POC GLUCOSE Collection Time: 11/16/18 11:42 AM Result Value Ref Range Glucose, POC 195 (H) 70 - 100 MG/DL POC GLUCOSE Collection Time: 11/16/18 12:52 PM Result Value Ref Range Glucose, POC 159 (H) 70 - 100 MG/DL POC GLUCOSE Collection Time: 11/16/18 2:02 PM Result Value Ref Range Glucose, POC 151 (H) 70 - 100 MG/DL Point of Care Testing (Last 24 hours) Glucose: (!) 227 (11/16/18 0819) POC Glucose (Download): (!) 151 (11/16/18 1402) Radiology and other Diagnostics Review: Pertinent radiology reviewed. Daron Bradley DO Pager [phone] ING GUIDE * Larry Mesa RN - 11/16/2018 2:31 PM FISHING GUIDE Patient home meds put in security bag. Meds include the followin. Tresiba FlexTouch 38 units 2. Tresiba FlexTouch 300 units 3. Tresiba Flex Touch 300 units 4. Novolog Flex Pen 300 units 5. Novolog Flex Pen 16 units 6. Novolog Flex Pen 150units 7. Carafate oral solution 200mL 8. Lidocaine oral solution 420mL Receipt put in the chart. ING GUIDE * Bhavana Matthews RN - 11/16/2018 12:18 AM FISHING GUIDE 2207 - I calculated a dose/rate change on the patient's Novolin gtt with Gogo JACKSON; she verified that the new rate was correct and signed off. However, I failed to change the rate on the pump at this time. 2320 - At the next BG check, I once more calculated a dose/rate change and realized I had not changed the rate of the gtt on my prior BG check; therefore, the rate was increased from 2 to 2.5 units/hr per protocol. Gogo JACKSON verified and signed off. ING GUIDE in this encounter H&P Notes * Remi Weber MD - 11/15/2018 10:07 PM FISHING GUIDE Admission History and Physical Examination Name: Chelsea Castillo Admission Date: 11/15/2018 Assessment/Plan: Active Problems: DKA (diabetic ketoacidoses) (HCC) Migraine headache 58 y.o. female with past medical history of CLL not on treatment, type 1 diabetes with diabetic gastroparesis, history of migraine headache, hypothyroidism, depression, seizure disorder, chronic abdominal pain, arthritis who was recently discharged after fall and fracture at home on 10/17/2018, presented to the hospital with complaints of worsening abdominal pain associated with nausea and vomiting along with a worsening of migraine headache and was found to be in DKA. Diabetic ketoacidosis Cyclic vomiting syndrome -Anion gap of 20 on admission with positive ketones in urine as well as blood. -She she received 2 L of fluid in the ER, will give 3 additional liters of fluid and monitor BMP q. 6 along with magnesium and phosphorus. -Repeat BMP shows improvement in her anion gap from 20-13 with 5 L of fluid. Her blood sugar is improved to 263, will start D5 half normal saline with 20 KCl along with insulin drip. -Continue to titrate insulin drip until her anion gap is completely closed and she is able to tolerate diet. -Start diabetic clear liquid diet. -We will try to advance diet tomorrow if she is able to tolerate it fine, likely can stop the insulin and D5 W drip. -Hold LABORER LIVESTOCK insulin regimen Migraine headache -Suspected precipitated because of inadequate sleep at nighttime. CT head in the ER did not show any acute finding. -Start headache cocktail with Toradol, magnesium and Benadryl. -Avoid opiates as it can worsen migraine headache and can have rebound headache. Type 1 diabetes with diabetic gastroparesis -Hold LABOR[employer] LIVESTOCK long-acting and short-acting insulin regimen with DKA. Insulin drip as above. -Discussed regarding reducing the dose of opiates which can worsen her gastroparesis and can cause recurrent flareups. Chronic abdominal pain -Patient reported abdominal pain is chronic from gastroparesis and has mildly worsened from her nausea and vomiting and is not significantly worse. Offered CT scan though she wanted to treat it conservatively. -Continue to monitor for now. -If worsens consider CT of the abdomen. -Continue LABOR[employer] LIVESTOCK morphine oral solution. PRN fentanyl for breakthrough pain. - Continue Anxiety/depression/seizure disorder -Continue LABORER LIVESTOCK Xanax, Tegretol, Lyrica Hypothyroidism -Continue LABORER LIVESTOCK Synthroid Other medical problems -Continue Plaquenil. Continue Singulair. Continue Florinef. FEN -D5 half NS 20 KCl at 75 cc/h with insulin drip. -Electrolytes are as above: K+ replaced -Diabetic clear liquid diet for today Prophylaxis -Lovenox Disposition -Admit to medicine. Complexity decision making high because of DKA/migraine headache. _ Primary Care Physician: Migue Patton III Verified Chief Complaint: Nausea vomiting abdominal pain and headache History of Present Illness: Chelsea Castillo is a 58 y.o. female with past medical history of CLL not on treatment, type 1 diabetes with diabetic gastroparesis, history of migraine headache, hypothyroidism, depression, seizure disorder, chronic abdominal pain, arthritis who was recently discharged after fall and fracture at home on 10/17/2018, presented to the hospital with complaints of worsening abdominal pain associated with nausea and vomiting. She also reported she was having increasing migraine headache. Her abdominal pain is same in nature as before from her chronic abdominal pain, exacerbated because of recurrent nausea and vomiting. She reported sharp pain in her abdomen, nonradiating, located in the epigastric area, moderate to severe intensity and was requesting morphine for the same. Patient also reported nonbloody vomiting several times in the last 3 days. She reported that she had not been able to sleep very well and has started getting migraine headache from the inadequate sleep. She was crying consistently throughout my interview asking for pain medicine, likely related to underlying depression. Her headache is chronic throbbing headache on the left side of the head more on the posterior side, nonradiating, associated with nausea and vomiting which is typical for her migraine headache. She denies any chest pain as such but was having heartburn and shortness of breath because of the pain and nausea vomiting. Denies any palpitation. Denies any weakness or numbness in any part of the body. Denies any urinary complaints. Denies any constipation or diarrhea. No fever or chills prior to coming to hospital. 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 Tobacco Use Smoking status: Never Smoker Smokeless tobacco: Never Used Substance and Sexual Activity Alcohol use: No Drug use: No Sexual activity: Not on file Other Topics Concern Not on file Social History Narrative Not on file Immunizations (includes history and patient reported): Immunization History Administered Date(s) Administered Flu Vaccine=>65 YO High-Dose (PF) 08/19/2018 Allergies: Sulfa (sulfonamide antibiotics) Medications: Current Facility-Administered Medications Medication [START ON 11/16/2018] acetaminophen (TYLENOL) tablet 650 mg acetaminophen/lidocaine/antacid DS(#) (GI COCKTAIL) 1:1:3 suspension 30 mL ALPRAZolam (XANAX) tablet 1 mg [START ON 11/16/2018] aspirin tablet 325 mg [START ON 11/16/2018] atorvastatin (LIPITOR) tablet 40 mg carBAMazepine (TEGRETOL) tablet 400 mg [START ON 11/16/2018] cetirizine (ZYRTEC) tablet 10 mg dextrose 5 % & 0.45% NaCl with KCl 20 mEq/L infusion diphenhydrAMINE (BENADRYL) injection [address] (CYMBALTA) capsule 90 mg enoxaparin (LOVENOX) syringe 40 mg fentaNYL citrate PF (SUBLIMAZE) injection 25-50 mcg fludrocortisone (FLORINEF) tablet 0.3 mg [START ON 11/16/2018] fluticasone (FLONASE) nasal spray 1 spray [START ON 11/16/2018] hydroxychloroquine (PLAQUENIL) tablet 200 mg insulin regular (NOVOLIN R) 100 Units in sodium chloride 0.9% (NS) 100 mL IV drip (std conc) ketorolac (TORADOL) injection 15 mg [START ON 11/16/2018] levothyroxine (SYNTHROID) tablet 175 mcg loperamide (IMODIUM A-D) capsule 2 mg magnesium sulfate 1 g/D5W 100 mL IVPB montelukast (SINGULAIR) tablet 10 mg morphine (MSIR) oral solution 7.5-15 mg ondansetron (ZOFRAN) injection 4 mg oxybutynin XL (DITROPAN XL) tablet 5 mg pantoprazole (PROTONIX) injection [address] (PROTONIX) tablet 40 mg potassium chloride in water IVPB 10 mEq pregabalin (LYRICA) capsule 150 mg promethazine (PHENERGAN) rectal suppository 12.5 mg rizatriptan (MAXALT) tablet 10 mg tiZANidine (ZANAFLEX) tablet 4 mg zolpidem (AMBIEN) tablet 10 mg Review of Systems: A 14 point review of systems was negative except for: Constitutional: positive for fatigue, malaise and anorexia Respiratory: positive for Shortness of breath Gastrointestinal: positive for decreased appetite, reflux symptoms, nausea, vomiting and abdominal pain Musculoskeletal: positive for myalgias, arthralgias and back pain Behvioral/Psych: positive for Depression and anxiety Endocrine: positive for Diabetes mellitus Type I Physical Exam: Vital Signs: Last Filed In 24 Hours Vital Signs: 24 Hour Range BP: 151/56 (11/15 2052) Temp: 37.5 C (99.5 F) (11/15 2052) Pulse: 98 (11/15 2052) Respirations: 22 PER MINUTE (11/15 2052) SpO2: 99 % (11/15 2052) O2 Delivery: None (Room Air) (11/15 1508) SpO2 Pulse: 100 (11/15 2015) Height: 165.1 cm (65") (11/15 2052) BP: (151-180)/(56-81) Temp: [37.3 C (99.2 F)-37.5 C (99.5 F)] Pulse: [92-102] Respirations: [18 PER MINUTE-29 PER MINUTE] SpO2: [97 %-100 %] O2 Delivery: None (Room Air) General: Well developed, alert, awake and oriented x3. Head: Normocephalic, without obvious abnormality, atraumatic Nose/Throat: Mucous membrane dry Eyes: Conjunctivae/corneas clear. PERRL, EOMs intact. Neck: Supple, symmetrical, No JVD, No bruit Lungs: Clear to auscultation bilaterally Back: Non tender, no kyphosis or scoliosis Heart: S1, S2 heard, Regular rate and rhythm, no murmur, click rub or gallop Abdomen: Soft, moderately diffusely tender to palpation, moderate voluntary guarding present: Patient reported this is her chronic abdominal pain from gastroparesis, non distended, Bowel sounds normal. Extremities: No cyanosis or clubbing. Pulses: 2+ and symmetric, all extremities. Neurologic: CNII - XII intact. Normal strength, sensation, non focal exam Skin: Clear, no rashes Psyche: Depressed and anxious affect. She kept crying throughout the interview. Lab/Radiology/Other Diagnostic Tests: 24-hour labs: Results for orders placed or performed during the hospital encounter of (from the past 24 hour(s)) CBC AND DIFF Collection Time: 11/15/18 3:16 PM Result Value Ref Range White Blood Cells 13.2 (H) 4.5 - 11.0 K/UL RBC 4.34 4.0 - 5.0 M/UL Hemoglobin 13.2 12.0 - 15.0 GM/DL Hematocrit 39.6 36 - 45 % MCV 91.4 80 - 100 FL MCH 30.4 26 - 34 PG MCHC 33.2 32.0 - 36.0 G/DL RDW 15.8 (H) 11 - 15 % Platelet Count 281 150 - 400 K/UL MPV 8.9 7 - 11 FL Neutrophils 64 41 - 77 % Lymphocytes 24 24 - 44 % Monocytes 5 4 - 12 % Eosinophils 7 (H) 0 - 5 % Basophils 0 0 - 2 % Absolute Neutrophil Count 8.30 (H) 1.8 - 7.0 K/UL Absolute Lymph Count 3.20 1.0 - 4.8 K/UL Absolute Monocyte Count 0.70 0 - 0.80 K/UL Absolute Eosinophil Count 1.00 (H) 0 - 0.45 K/UL Absolute Basophil Count 0.10 0 - 0.20 K/UL COMPREHENSIVE METABOLIC PANEL Collection Time: 11/15/18 3:16 PM Result Value Ref Range Sodium 131 (L) 137 - 147 MMOL/L Potassium 3.8 3.5 - 5.1 MMOL/L Chloride 93 (L) 98 - 110 MMOL/L Glucose 421 (H) 70 - 100 MG/DL Blood Urea Nitrogen 11 7 - 25 MG/DL Creatinine 0.79 0.4 - 1.00 MG/DL Calcium 9.3 8.5 - 10.6 MG/DL Total Protein 6.6 6.0 - 8.0 G/DL Total Bilirubin 0.4 0.3 - 1.2 MG/DL Albumin 3.9 3.5 - 5.0 G/DL Alk Phosphatase 150 (H) 25 - 110 U/L AST (SGOT) 18 7 - 40 U/L CO2 18 (L) 21 - 30 MMOL/L ALT (SGPT) 14 7 - 56 U/L Anion Gap 20 (H) 3 - 12 eGFR Non >60 >60 mL/min eGFR >60 >60 mL/min LIPASE Collection Time: 11/15/18 3:16 PM Result Value Ref Range Lipase 9 (L) 11 - 82 U/L TSH WITH FREE T4 REFLEX Collection Time: 11/15/18 3:16 PM Result Value Ref Range TSH 0.690 0.35 - 5.00 MCU/ML MAGNESIUM Collection Time: 11/15/18 3:16 PM Result Value Ref Range Magnesium 2.0 1.6 - 2.6 mg/dL TROPONIN-I Collection Time: 11/15/18 3:16 PM Result Value Ref Range Troponin-I <0.01 0.0 - 0.05 NG/ML POC GLUCOSE Collection Time: 11/15/18 3:17 PM Result Value Ref Range Glucose, POC 366 (H) 70 - 100 MG/DL BLOOD GASES, PERIPHERAL VENOUS Collection Time: 11/15/18 3:19 PM Result Value Ref Range pH-Venous 7.33 7.30 - 7.40 PCO2-Venous 35 (L) 36 - 50 MMHG PO2-Venous 47 33 - 48 MMHG Base Deficit-Venous 6.7 MMOL/L O2 Sat-Venous 77.6 (H) 55 - 71 % Lsdhiinclup-RLN-Kwf 18.7 MMOL/L POC LACTATE Collection Time: 11/15/18 3:22 PM Result Value Ref Range LACTIC ACID POC 2.4 (H) 0.5 - 2.0 MMOL/L BETA HYDROXYBUTYRATE (KETONES) Collection Time: 11/15/18 3:27 PM Result Value Ref Range Beta Hydroxybutyrate 6.5 (H) <0.3 MMOL/L OSMOLALITY Collection Time: 11/15/18 3:27 PM Result Value Ref Range Osmolality 297 280 - 307 MOSMOL/KG URINALYSIS DIPSTICK Collection Time: 11/15/18 3:28 PM Result Value Ref Range Color,UA YELLOW Turbidity,UA CLEAR CLEAR-CLEAR Specific [place]-Urine 1.028 1.003 - 1.035 pH,UA 5.0 5.0 - 8.0 Protein,UA 1+ (A) NEG-NEG Glucose,UA 3+ (A) NEG-NEG Ketones,UA 2+ (A) NEG-NEG Bilirubin,UA NEG NEG-NEG Blood,UA NEG NEG-NEG Urobilinogen,UA NORMAL NORM-NORMAL Nitrite,UA NEG NEG-NEG Leukocytes,UA NEG NEG-NEG Urine Ascorbic Acid, UA NEG NEG-NEG URINALYSIS, MICROSCOPIC Collection Time: 11/15/18 3:28 PM Result Value Ref Range WBCs,UA 0-2 0 - 2 /HPF RBCs,UA 0-2 0 - 3 /HPF MucousUA TRACE Bacteria,UA FEW (A) NEG-NEG Squamous Epithelial Cells 0-2 0 - 5 POC GLUCOSE Collection Time: 11/15/18 4:57 PM Result Value Ref Range Glucose, POC 357 (H) 70 - 100 MG/DL POC GLUCOSE Collection Time: 11/15/18 5:53 PM Result Value Ref Range Glucose, POC 318 (H) 70 - 100 MG/DL POC GLUCOSE Collection Time: 11/15/18 6:26 PM Result Value Ref Range Glucose, POC 279 (H) 70 - 100 MG/DL POC GLUCOSE Collection Time: 11/15/18 7:05 PM Result Value Ref Range Glucose, POC 247 (H) 70 - 100 MG/DL POC GLUCOSE Collection Time: 11/15/18 7:43 PM Result Value Ref Range Glucose, POC 231 (H) 70 - 100 MG/DL POC LACTATE Collection Time: 11/15/18 7:58 PM Result Value Ref Range LACTIC ACID POC 1.4 0.5 - 2.0 MMOL/L BASIC METABOLIC PANEL Collection Time: 11/15/18 8:00 PM Result Value Ref Range Sodium 135 (L) 137 - 147 MMOL/L Potassium 3.3 (L) 3.5 - 5.1 MMOL/L Chloride 103 98 - 110 MMOL/L CO2 19 (L) 21 - 30 MMOL/L Anion Gap 13 (H) 3 - 12 Glucose 263 (H) 70 - 100 MG/DL Blood Urea Nitrogen 10 7 - 25 MG/DL Creatinine 0.71 0.4 - 1.00 MG/DL Calcium 8.2 (L) 8.5 - 10.6 MG/DL eGFR Non >60 >60 mL/min eGFR >60 >60 mL/min MAGNESIUM Collection Time: 11/15/18 8:00 PM Result Value Ref Range Magnesium 2.1 1.6 - 2.6 mg/dL PHOSPHORUS Collection Time: 11/15/18 8:00 PM Result Value Ref Range Phosphorus 2.5 2.0 - 4.5 MG/DL POC GLUCOSE Collection Time: 11/15/18 8:51 PM Result Value Ref Range Glucose, POC 189 (H) 70 - 100 MG/DL POC GLUCOSE Collection Time: 11/15/18 10:03 PM Result Value Ref Range Glucose, POC 190 (H) 70 - 100 MG/DL FSBS (Manual): (!) 318 (11/15/181811) Glucose: (!) 263 (11/15/181999) POC Glucose (Download): (!) 190 (11/15/182202) Pertinent radiology reviewed. Ct Head Wo Contrast Result Date: 11/15/2018 No acute intracranial abnormality. Finalized by ISRAEL MENDIETA M.D. on 2017 4:54 PM. Dictated by ISRAEL MENDIETA M.D. on 11/15/2018 4:53 PM. REMI WEBER MD Pager [phone] ING GUIDE in this encounter Consult Notes * Quincy Morris DO - 11/16/2018 11:47 AM FISHING GUIDE Associated Order(s): CONSULT ENDOCRINOLOGY PHYSICIAN See Consult note 11/16/2018 ING GUIDE * Quincy Morris DO - 11/16/2018 9:10 AM FISHING GUIDE Endocrinology Consult Note Name: Chelsea Castillo Admission Date: 11/15/2018 Active Problems: DKA (diabetic ketoacidoses) (HCC) Migraine headache Reason for Consult: "DKA" Assessment / Plan Chelsea Castillo is a 58 y.o. female with arthritis, chronic abdominal pain, cyclic vomiting syndrome, diabetes type 1, gastroparesis, CLL not on treatment,, hypothyroidism, depression, seizure disorder who presented to the hospital with worsening acute on chronic abdominal pain with nausea and vomiting and found to be in DKA. Endocrinology consulted for DKA management. 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 Avelar for diabetes management Diabetic-complications assessment: Retinopathy: yes. Peripheral neuropathy: yes Autonomic neuropathy: gastroparesis Nephropathy: no Macrovascular complications: no known CAD Risk Factor assessment Last lipid profile Lab Results Component Value Date CHOL 176 09/18/2018 TRIG 161 (H) 09/18/2018 HDL 53 09/18/2018 LDL 96 09/18/2018 VLDL 32 09/18/2018 NONHDLCHOL 123 09/18/2018 BP Readings from Last 1 Encounters: 11/16/18 121/54 On ACEi/ARB?: no On Statin?: no On admission anion gap 20, beta hydroxybutyrate 6.5, glucose 421 Hypothyroidism 11/16/2018 TSH 1.77 Impression / Recommendations Start Lantus 18 units daily Start Aspart 4 units post meal dosing LDCF Stop Gtt 2 hours post lantus dose Pt was discussed with Staff physician Quincy Morris DO Pager [phone] Subjective: Chelsea Castillo is a 58 y.o. female with arthritis, chronic abdominal pain, cyclic vomiting syndrome, diabetes type 1, gastroparesis, CLL not on treatment,, hypothyroidism, depression, seizure disorder who presented to the hospital with worsening acute on chronic abdominal pain with nausea and vomiting and found to be in DKA. Endocrinology consulted for DKA management. Patient follows with Dr. Avelar in endocrinology for diabetes management and was last seen on 10/08/2018 at that time her Tresiba was reduced to 12 units nightly , NovoLog 4-5 units with meals and was given a referral to the dietitian to learn about carbohydrate counting. During that visit the patient had been reporting hypoglycemia past few mornings, and diarrhea. Patient presented to the hospital with worsening abdominal pain and nausea and vomiting as well as headache. On evaluation in the emergency department the patient was found to have elevated blood glucose 421 and a beta hydroxybutyrate of 6.5 as well as an elevated anion gap. Patient was started on an insulin drip and given fluids and is currently still being treated with an insulin drip this morning with well -controlled blood glucose. Patient DKA likely 2/2 lack of oral intake and no correction dose insulin. She reports that she WAS still taking her basal insulin. 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: diasabled Tobacco Use Smoking status: Never Smoker Smokeless tobacco: Never Used Substance and Sexual Activity Alcohol use: No Drug use: No Sexual activity: Not on file Other Topics Concern Not on file Social History Narrative Not on file Immunizations (includes history and patient reported): Immunization History Administered Date(s) Administered Flu Vaccine=>65 YO High-Dose (PF) 08/19/2018 Allergies: Sulfa (sulfonamide antibiotics) Review of Systems: N/V, Abdominal pain Constitutional: negative for fevers, chills Eyes: negative for visual disturbance Ears, nose, mouth, throat, and face: change in hearing Respiratory: negative for cough or SOB Cardiovascular: negative for chest pain, palpitations Gastrointestinal: negative for nausea, vomiting, abdominal pain Genitourinary:negative for hematuria Integument/breast: negative for rash Musculoskeletal:negative for myalgias and arthralgias Neurological: negative for headaches, dizziness and lightheadedness Endocrine: negative for heat or cold intolerance Physical Exam: General: Alert, cooperative, no distress, appears stated age Head: Normocephalic Eyes: No scleral icterus Neck: Supple, symmetrical, no adenopathy, thyroid: no enlargement/tenderness/ nodules Lungs: CTA Heart: RRR Abdomen: S, NT, + BS Skin: No rashes Neurologic: Alert Vital Signs: Last Filed In 24 Hours Vital Signs: 24 Hour Range BP: 121/54 (11/16 527) Temp: 36.6 C (97.8 F) (11/16 527) Pulse: 76 (11/16 527) Respirations: 22 PER MINUTE (11/16 527) SpO2: 99 % (11/16 527) O2 Delivery: None (Room Air) (11/16 527) SpO2 Pulse: 100 (11/15 2015) Height: 165.1 cm (65") (11/15 2052) BP: (117-180)/(48-81) Temp: [36.6 C (97.8 F)-37.5 C (99.5 F)] Pulse: [76-102] Respirations: [18 PER MINUTE-29 PER MINUTE] SpO2: [96 %-100 %] O2 Delivery: None (Room Air) Intensity Pain Scale (Self Report): 9 (11/16/18 0545) Medications: No current facility-administered medications on file prior to encounter. Current Outpatient Medications on File Prior to Encounter Medication Sig Dispense Refill acetaminophen (TYLENOL) 325 mg tablet Take two tablets by mouth every 6 hours. 0 acetaminophen/lidocaine/antacid DS(#) (GI COCKTAIL) 1:1:3 Take 30 mL by mouth four times daily as needed. 1 Bottle 11 ALPRAZolam (XANAX) 1 mg tablet Take 1 mg by mouth twice daily as needed for Anxiety. aspirin 325 mg tablet Take one tablet by mouth daily. Take with food. 90 tablet 3 atorvastatin (LIPITOR) 40 mg tablet Take 40 [...] Take one capsule by mouth twice daily. 60 capsule 1 diclofenac(+) (VOLTAREN) 1 % topical gel Apply 4 g topically to affected area four times daily as needed. duloxetine DR (CYMBALTA) 30 mg capsule Take three capsules by mouth daily. 30 capsule 1 estrogens, conjugated(+) (PREMARIN) 0.625 mg/g vaginal cream Insert or Apply 0.5 g to vaginal area daily. ferrous gluconate (FERGON) 240 mg (27 mg iron) tablet Take one tablet by mouth daily. 30 tablet 1 fesoterodine ER(+) (TOVIAZ) 4 mg tablet Take [...] 100 unit/mL (3 mL) injection pen Inject 12 Units under the skin at bedtime daily. 15 mL 0 insulin lispro(+) (HUMALOG KWIKPEN INSULIN) 100 unit/mL injection PEN Inject 4 units subcutaneously with breakfast and lunch, and dinner. 45 mL 0 levocarnitine(+) (LEVOCARNITINE(+)) 500 mg tablet Take four tablets by mouth twice daily. 240 tablet 1 levothyroxine (SYNTHROID) 175 mcg tablet Take 175 mcg by mouth daily 30 minutes before breakfast. lidocaine/prilocaine (EMLA) 2.5/2.5 % topical cream Apply topically to affected area as Needed. loperamide (IMODIUM A-D) 2 mg capsule Take one capsule by mouth four times daily as needed for Diarrhea. Take 1 capsules by mouth initially, followed by 1 capsule by mouth after each loose stool up to a maximum of 8 tablets in 24 hours. 15 capsule 0 montelukast (SINGULAIR) 10 mg tablet Take 10 mg by mouth at bedtime daily. morphine (MSIR) 2 mg/mL oral solution Take 3.75-7.5 mL by mouth every 4 hours as needed Earliest Fill Date: 10/18/18 210 mL 0 multivitamin with minerals (HAIR,SKIN AND NAILS PO) Take 1 tablet by mouth daily. nystatin (NYSTOP) 100,000 unit/g topical powder Apply topically to affected area four times daily. ondansetron (ZOFRAN ODT) 4 mg rapid dissolve tablet Dissolve one tablet by mouth every [address] on tongue to disolve. [address] (PROTONIX) 40 mg tablet Take 40 mg by mouth daily. pentosan polysulfate sodium (ELMIRON) 100 mg capsule Take 100 mg by mouth three times daily before meals. polyethylene glycol 3350 (MIRALAX) 17 g packet Take one packet by mouth daily. 12 each 0 polyethylene glycol 3350 (MIRALAX) 17 g packet Take one packet by mouth daily as needed. 30 each 1 potassium chloride SR (K-DUR) 10 mEq tablet Take 10 mEq by mouth daily. Take with a meal and a full glass of water. pregabalin (LYRICA) 150 mg capsule Take 150 mg by mouth twice daily. promethazine (PHENERGAN) 12.5 mg rectal suppository Insert or Apply one suppository to rectal area as directed every 8 hours as needed for Nausea. 30 each 0 pyridoxine (VITAMIN B-6) 50 mg tablet Take one tablet by mouth daily. rizatriptan (MAXALT) 10 mg tablet Take 10 mg by mouth once as needed for Headache. May repeat in 2 hours if needed sucralfate(+) (CARAFATE) 100 mg/mL oral suspension Take 10 mL by mouth before meals and at bedtime. 414 mL 0 tiZANidine (ZANAFLEX) 4 mg tablet Take 4 mg by mouth every 6 hours as needed. vitamins, B complex tab Take one tablet by mouth daily. 30 tablet 1 zolpidem (AMBIEN) 10 mg tablet Take 10 mg by mouth at bedtime as needed for Sleep. Lab/Radiology/Other Diagnostic Tests: 24-hour labs: Results for orders placed or performed during the hospital encounter of (from the past 24 hour(s)) CBC AND DIFF Collection Time: 11/15/18 3:16 PM Result Value Ref Range White Blood Cells 13.2 (H) 4.5 - 11.0 K/UL RBC 4.34 4.0 - 5.0 M/UL Hemoglobin 13.2 12.0 - 15.0 GM/DL Hematocrit 39.6 36 - 45 % MCV 91.4 80 - 100 FL MCH 30.4 26 - 34 PG MCHC 33.2 32.0 - 36.0 G/DL RDW 15.8 (H) 11 - 15 % Platelet Count 281 150 - 400 K/UL MPV 8.9 7 - 11 FL Neutrophils 64 41 - 77 % Lymphocytes 24 24 - 44 % Monocytes 5 4 - 12 % Eosinophils 7 (H) 0 - 5 % Basophils 0 0 - 2 % Absolute Neutrophil Count 8.30 (H) 1.8 - 7.0 K/UL Absolute Lymph Count 3.20 1.0 - 4.8 K/UL Absolute Monocyte Count 0.70 0 - 0.80 K/UL Absolute Eosinophil Count 1.00 (H) 0 - 0.45 K/UL Absolute Basophil Count 0.10 0 - 0.20 K/UL COMPREHENSIVE METABOLIC PANEL Collection Time: 11/15/18 3:16 PM Result Value Ref Range Sodium 131 (L) 137 - 147 MMOL/L Potassium 3.8 3.5 - 5.1 MMOL/L Chloride 93 (L) 98 - 110 MMOL/L Glucose 421 (H) 70 - 100 MG/DL Blood Urea Nitrogen 11 7 - 25 MG/DL Creatinine 0.79 0.4 - 1.00 MG/DL Calcium 9.3 8.5 - 10.6 MG/DL Total Protein 6.6 6.0 - 8.0 G/DL Total Bilirubin 0.4 0.3 - 1.2 MG/DL Albumin 3.9 3.5 - 5.0 G/DL Alk Phosphatase 150 (H) 25 - 110 U/L AST (SGOT) 18 7 - 40 U/L CO2 18 (L) 21 - 30 MMOL/L ALT (SGPT) 14 7 - 56 U/L Anion Gap 20 (H) 3 - 12 eGFR Non >60 >60 mL/min eGFR >60 >60 mL/min LIPASE Collection Time: 11/15/18 3:16 PM Result Value Ref Range Lipase 9 (L) 11 - 82 U/L TSH WITH FREE T4 REFLEX Collection Time: 11/15/18 3:16 PM Result Value Ref Range TSH 0.690 0.35 - 5.00 MCU/ML MAGNESIUM Collection Time: 11/15/18 3:16 PM Result Value Ref Range Magnesium 2.0 1.6 - 2.6 mg/dL CULTURE-BLOOD W/SENSITIVITY Collection Time: 11/15/18 3:16 PM Result Value Ref Range Battery Name BLOOD CULTURE Specimen Description BLOOD L PORT Special Requests NONE Culture NO GROWTH 1 DAY Report Status TROPONIN-I Collection Time: 11/15/18 3:16 PM Result Value Ref Range Troponin-I <0.01 0.0 - 0.05 NG/ML POC GLUCOSE Collection Time: 11/15/18 3:17 PM Result Value Ref Range Glucose, POC 366 (H) 70 - 100 MG/DL BLOOD GASES, PERIPHERAL VENOUS Collection Time: 11/15/18 3:19 PM Result Value Ref Range pH-Venous 7.33 7.30 - 7.40 PCO2-Venous 35 (L) 36 - 50 MMHG PO2-Venous 47 33 - 48 MMHG Base Deficit-Venous 6.7 MMOL/L O2 Sat-Venous 77.6 (H) 55 - 71 % Rskghplhtnv-JZA-Uxt 18.7 MMOL/L POC LACTATE Collection Time: 11/15/18 3:22 PM Result Value Ref Range LACTIC ACID POC 2.4 (H) 0.5 - 2.0 MMOL/L BETA HYDROXYBUTYRATE (KETONES) Collection Time: 11/15/18 3:27 PM Result Value Ref Range Beta Hydroxybutyrate 6.5 (H) <0.3 MMOL/L OSMOLALITY Collection Time: 11/15/18 3:27 PM Result Value Ref Range Osmolality 297 280 - 307 MOSMOL/KG URINALYSIS DIPSTICK Collection Time: 11/15/18 3:28 PM Result Value Ref Range Color,UA YELLOW Turbidity,UA CLEAR CLEAR-CLEAR Specific [place]-Urine 1.028 1.003 - 1.035 pH,UA 5.0 5.0 - 8.0 Protein,UA 1+ (A) NEG-NEG Glucose,UA 3+ (A) NEG-NEG Ketones,UA 2+ (A) NEG-NEG Bilirubin,UA NEG NEG-NEG Blood,UA NEG NEG-NEG Urobilinogen,UA NORMAL NORM-NORMAL Nitrite,UA NEG NEG-NEG Leukocytes,UA NEG NEG-NEG Urine Ascorbic Acid, UA NEG NEG-NEG URINALYSIS, MICROSCOPIC Collection Time: 11/15/18 3:28 PM Result Value Ref Range WBCs,UA 0-2 0 - 2 /HPF RBCs,UA 0-2 0 - 3 /HPF MucousUA TRACE Bacteria,UA FEW (A) NEG-NEG Squamous Epithelial Cells 0-2 0 - 5 POC GLUCOSE Collection Time: 11/15/18 4:57 PM Result Value Ref Range Glucose, POC 357 (H) 70 - 100 MG/DL POC GLUCOSE Collection Time: 11/15/18 5:53 PM Result Value Ref Range Glucose, POC 318 (H) 70 - 100 MG/DL POC GLUCOSE Collection Time: 11/15/18 6:26 PM Result Value Ref Range Glucose, POC 279 (H) 70 - 100 MG/DL POC GLUCOSE Collection Time: 11/15/18 7:05 PM Result Value Ref Range Glucose, POC 247 (H) 70 - 100 MG/DL POC GLUCOSE Collection Time: 11/15/18 7:43 PM Result Value Ref Range Glucose, POC 231 (H) 70 - 100 MG/DL POC LACTATE Collection Time: 11/15/18 7:58 PM Result Value Ref Range LACTIC ACID POC 1.4 0.5 - 2.0 MMOL/L CULTURE-BLOOD W/SENSITIVITY Collection Time: 11/15/18 8:00 PM Result Value Ref Range Battery Name BLOOD CULTURE Specimen Description BLOOD RIGHT WRIST PEDS FAN BOTTLE Special Requests Culture performed on specimen with less than the recommended volume of 10 ml/bottle. Decreased volume will affect sensitivity of culture. Culture NO GROWTH 1 DAY Report Status BASIC METABOLIC PANEL Collection Time: 11/15/18 8:00 PM Result Value Ref Range Sodium 135 (L) 137 - 147 MMOL/L Potassium 3.3 (L) 3.5 - 5.1 MMOL/L Chloride 103 98 - 110 MMOL/L CO2 19 (L) 21 - 30 MMOL/L Anion Gap 13 (H) 3 - 12 Glucose 263 (H) 70 - 100 MG/DL Blood Urea Nitrogen 10 7 - 25 MG/DL Creatinine 0.71 0.4 - 1.00 MG/DL Calcium 8.2 (L) 8.5 - 10.6 MG/DL eGFR Non >60 >60 mL/min eGFR >60 >60 mL/min MAGNESIUM Collection Time: 11/15/18 8:00 PM Result Value Ref Range Magnesium 2.1 1.6 - 2.6 mg/dL PHOSPHORUS Collection Time: 11/15/18 8:00 PM Result Value Ref Range Phosphorus 2.5 2.0 - 4.5 MG/DL POC GLUCOSE Collection Time: 11/15/18 8:51 PM Result Value Ref Range Glucose, POC 189 (H) 70 - 100 MG/DL POC GLUCOSE Collection Time: 11/15/18 10:03 PM Result Value Ref Range Glucose, POC 190 (H) 70 - 100 MG/DL POC GLUCOSE Collection Time: 11/15/18 11:20 PM Result Value Ref Range Glucose, POC 192 (H) 70 - 100 MG/DL POC GLUCOSE Collection Time: 11/16/18 12:27 AM Result Value Ref Range Glucose, POC 177 (H) 70 - 100 MG/DL POC GLUCOSE Collection Time: 11/16/18 1:30 AM Result Value Ref Range Glucose, POC 157 (H) 70 - 100 MG/DL MAGNESIUM Collection Time: 11/16/18 1:45 AM Result Value Ref Range Magnesium 2.0 1.6 - 2.6 mg/dL PHOSPHORUS Collection Time: 11/16/18 1:45 AM Result Value Ref Range Phosphorus 2.6 2.0 - 4.5 MG/DL CBC AND DIFF Collection Time: 11/16/18 1:45 AM Result Value Ref Range White Blood Cells 14.2 (H) 4.5 - 11.0 K/UL RBC 3.29 (L) 4.0 - 5.0 M/UL Hemoglobin 10.1 (L) 12.0 - 15.0 GM/DL Hematocrit 30.1 (L) 36 - 45 % MCV 91.4 80 - 100 FL MCH 30.8 26 - 34 PG MCHC 33.6 32.0 - 36.0 G/DL RDW 15.6 (H) 11 - 15 % Platelet Count 199 150 - 400 K/UL MPV 9.0 7 - 11 FL Neutrophils 33 (L) 41 - 77 % Lymphocytes 52 (H) 24 - 44 % Monocytes 3 (L) 4 - 12 % Eosinophils 11 (H) 0 - 5 % Basophils 1 0 - 2 % Absolute Neutrophil Count 4.70 1.8 - 7.0 K/UL Absolute Lymph Count 7.40 (H) 1.0 - 4.8 K/UL Absolute Monocyte Count 0.40 0 - 0.80 K/UL Absolute Eosinophil Count 1.60 (H) 0 - 0.45 K/UL Absolute Basophil Count 0.10 0 - 0.20 K/UL COMPREHENSIVE METABOLIC PANEL Collection Time: 11/16/18 1:45 AM Result Value Ref Range Sodium 137 137 - 147 MMOL/L Potassium 3.8 3.5 - 5.1 MMOL/L Chloride 110 98 - 110 MMOL/L Glucose 169 (H) 70 - 100 MG/DL Blood Urea Nitrogen 8 7 - 25 MG/DL Creatinine 0.68 0.4 - 1.00 MG/DL Calcium 7.9 (L) 8.5 - 10.6 MG/DL Total Protein 4.6 (L) 6.0 - 8.0 G/DL Total Bilirubin 0.2 (L) 0.3 - 1.2 MG/DL Albumin 2.8 (L) 3.5 - 5.0 G/DL Alk Phosphatase 110 25 - 110 U/L AST (SGOT) 14 7 - 40 U/L CO2 23 21 - 30 MMOL/L ALT (SGPT) 10 7 - 56 U/L Anion Gap 4 3 - 12 eGFR Non >60 >60 mL/min eGFR >60 >60 mL/min TSH WITH FREE T4 REFLEX Collection Time: 11/16/18 1:45 AM Result Value Ref Range TSH 1.770 0.35 - 5.00 MCU/ML POC GLUCOSE Collection Time: 11/16/18 2:33 AM Result Value Ref Range Glucose, POC 135 (H) 70 - 100 MG/DL POC GLUCOSE Collection Time: 11/16/18 3:38 AM Result Value Ref Range Glucose, POC 117 (H) 70 - 100 MG/DL POC GLUCOSE Collection Time: 11/16/18 4:24 AM Result Value Ref Range Glucose, POC 112 (H) 70 - 100 MG/DL POC GLUCOSE Collection Time: 11/16/18 5:27 AM Result Value Ref Range Glucose, POC 95 70 - 100 MG/DL POC GLUCOSE Collection Time: 11/16/18 6:29 AM Result Value Ref Range Glucose, POC 124 (H) 70 - 100 MG/DL POC GLUCOSE Collection Time: 11/16/18 7:34 AM Result Value Ref Range Glucose, POC 174 (H) 70 - 100 MG/DL BASIC METABOLIC PANEL Collection Time: 11/16/18 8:19 AM Result Value Ref Range Sodium 137 137 - 147 MMOL/L Potassium 3.8 3.5 - 5.1 MMOL/L Chloride 108 98 - 110 MMOL/L CO2 23 21 - 30 MMOL/L Anion Gap 6 3 - 12 Glucose 227 (H) 70 - 100 MG/DL Blood Urea Nitrogen 7 7 - 25 MG/DL Creatinine 0.66 0.4 - 1.00 MG/DL Calcium 8.2 (L) 8.5 - 10.6 MG/DL eGFR Non >60 >60 mL/min eGFR >60 >60 mL/min MAGNESIUM Collection Time: 11/16/18 8:19 AM Result Value Ref Range Magnesium 1.9 1.6 - 2.6 mg/dL PHOSPHORUS Collection Time: 11/16/18 8:19 AM Result Value Ref Range Phosphorus 3.2 2.0 - 4.5 MG/DL POC GLUCOSE Collection Time: 11/16/18 8:29 AM Result Value Ref Range Glucose, POC 181 (H) 70 - 100 MG/DL POC GLUCOSE Collection Time: 11/16/18 9:33 AM Result Value Ref Range Glucose, POC 197 (H) 70 - 100 MG/DL POC GLUCOSE Collection Time: 11/16/18 10:37 AM Result Value Ref Range Glucose, POC 208 (H) 70 - 100 MG/DL FSBS (Manual): (!) 318 (11/15/181811) Glucose: (!) 227 (11/16/18 08) POC Glucose (Download): (!) 181 (11/16/18 08) Pertinent radiology reviewed. ING GUIDE Associated attestation - Maria M Keyes MD - 11/16/2018 1:42 PM FISHING GUIDE ATTESTATION I personally performed the ortega portions of the E/M visit, discussed case with resident and concur with resident documentation of history, physical exam, assessment, and treatment plan unless otherwise noted. Staff name: Maria M Keyes MD Date: 11/16/2018 We have discussed with the patient about the transition in this encounter Miscellaneous Notes * Case Mgmt DC Plan - Mariah Hoyos RN - 11/20/2018 12:51 PM FISHING GUIDE Case Management Progress NoteNAME:Chelsea Castillo :1960 AGE: 58 y.o. ADMISSION DATE: 11/15/2018 DAYS ADMITTED: LOS: 5 days Todays Date: 11/20/2018 Plan Discharge to home with resumption of home health Interventions ? Support ? Info or Referral ? Discharge Planning Discharge Planning: Home Health Pt will discharge to home with resumption of [facility] [phone]/ fax [phone] for mcc, PT/ OT. Signed orders, AVS and H&P faxed to [facility] [place]. NCM spoke with [facility] and they will resume care within 24 hours of patient's discharge. ? ? Medication Needs ? Financial ? Legal ? Other Disposition ? Expected Discharge Date Expected Discharge Date: 11/20/18 ? Transportation Does the patient need discharge transport arranged?: No Transportation Name, Phone and Availability #1: spouse, Dioni [phone] Does the patient use Medicaid Transportation?: No ? Next Level of Care (Acute Psych discharges only) ? Discharge Disposition Durable Medical Equipment No service has been selected for the patient. Destination No service has been selected for the patient. Home Care No service has been selected for the patient. Dialysis/Infusion No service has been selected for the patient. Mariah Hoyos MSN, business management associate [phone] Pager *[phone] ING GUIDE * Care Plan - Alistair Sanders RN - 11/20/2018 11:55 AM FISHING GUIDE Problem: Falls, High Risk of Goal: Absence of falls-Adult Patient Outcome: Goal Achieved Date Met: 11/20/[address], pt educated regarding precautions. Problem: Infection, Risk of, Central Venous Catheter-Associated Bloodstream Infection Goal: Absence of CVC Associated Bloodstream infection Outcome: Goal Achieved Date Met: 11/20/18 CHG washed daily Problem: Discharge Planning Goal: Participation in plan of care Outcome: Goal Achieved Date Met: 11/20/18 ` Goal: Knowledge regarding plan of care Outcome: Goal Achieved Date Met: 11/20/18 Pt educated regarding plan of care, verbalizes understanding. Goal: Prepared for discharge Outcome: Goal Achieved Date Met: 11/20/18 ` ING GUIDE * Case Mgmt DC Plan - Alice Sanchez RN - 11/18/2018 12:33 PM FISHING GUIDE Case Management Progress NoteNAME:Chelsea Castillo :1960 AGE: 58 y.o. ADMISSION DATE: 11/15/2018 DAYS ADMITTED: LOS: 3 days Todays Date: 11/18/2018 Plan Ongoing discharge planning. Interventions ? Support ? Info or Referral ? Discharge Planning Discharge Planning: Home Health [facility] called [facility], , notified that pt is currently inpt. [facility] will sent [facility] for SN and PT when pt is medically stable for dc. ? Medication Needs ? Financial ? Legal ? Other Disposition ? Expected Discharge Date ? Transportation Does the patient need discharge transport arranged?: No Transportation Name, Phone and Availability #1: spouse, Dioni [phone] Does the patient use Medicaid Transportation?: No ? Next Level of Care (Acute Psych discharges only) ? Discharge Disposition Durable Medical Equipment No service has been selected for the patient. Destination No service has been selected for the patient. Home Care No service has been selected for the patient. Dialysis/Infusion No service has been selected for the patient. ASHLEY Mcdaniel, business management associate [phone] ING GUIDE * Case Mgmt DC Plan - Alice Sanchez RN - 11/17/2018 1:37 PM FISHING GUIDE Case Management Admission AssessmentNAME:Chelsea Castillo :1960 AGE: 58 y.o. ADMISSION DATE: 11/15/2018 DAYS ADMITTED: LOS: 2 days Todays Date: 11/17/2018 Source of Information: Patient and previous notes. Plan Plan: Case Management Assessment, Assist PRN with SW/NCM Services, Discharge Planning for Home Anticipated NCM at bedside, introduced self and explained CM role. Pt admit with DKA. Pt is current with [facility], NCM will call Sunday to notify of admission. Pt has been independent, recently broke leg and had surgery here at . Pt continue to have boot on left side. Pt states medications have been affordable. Patient Address/Phone [address] [place] [phone] (home) Emergency Contact Extended Emergency Contact Information Primary Emergency Contact: Dioni Castillo [facility] Relation: Spouse Secondary Emergency Contact: Quiana Iqbal [facility] Relation: Sister Healthcare Directive Transportation Does the patient need discharge transport arranged?: No Transportation Name, Phone and Availability #1: spouseDioni [phone] Does the patient use Medicaid Transportation?: No Expected Discharge Date Living Situation Prior to Admission ? Living Arrangements Type of Residence: Home, independent Living Arrangements: Spouse/significant other Bathroom Shower / Tub: Tub/Shower Unit, Walk-in Shower How many levels in the residence?: 1 Can patient live on one level if needed?: Yes Does residence have entry and/or side stairs?: Yes(4 steps into home.) Assistance needed prior to admit or anticipated on discharge: No Who provides assistance or could if needed?: spouse Are they in good health?: Unknown Can support system provide 24/7 care if needed?: Maybe ? Level of Function Prior level of function: Independent ? Cognitive Abilities Cognitive Abilities: Alert and Oriented, Engages in problem solving and planning , Participates in decision making Financial Resources ? Coverage Primary Insurance: Medicare Replacement Secondary Insurance: Medicaid Additional Coverage: RX ? Source of Income Source Of Income: SSDI ? Financial Assistance Needed? None Psychosocial Needs ? Mental Health Mental Health History: No ? Substance Use History Substance Use History Screen: No ? Other Current/Previous Services ? PCP Migue Patton III, , ? Pharmacy [facility] [place], [place] - [address] [address] [facility] [address] [facility] [address] [facility] [id number] [facility] [address] [facility] ([facility]) [address] [place] [address] [facility] [address] ? Durable Medical Equipment Durable Medical Equipment at home: Roller Walker, Single Point Cane, Shower Chair, Bedside Commode ? Home Health Receiving home health: Yes Agency name: [facility] Would patient use this agency again?: Yes ? Hemodialysis or Peritoneal Dialysis Undergoing hemodialysis or peritoneal dialysis: No ? Tube/Enteral Feeds Receive tube/enteral feeds: No ? Infusion Receive infusions: No ? Private Duty Private duty help used: No ? Home and Community Based Services Home and community based services: No ? Mir Correia: N/A ? Hospice Hospice: No ? Outpatient Therapy PT: No OT: No SUMMER ANALYST: No ? Intermediate Facility/Prison SNF: In the past Name of Facility: [facility] NH: No ? Inpatient Rehab IPR: No ? Long-Term Acute Care Hospital LTACH: No ? Acute Hospital Stay Acute Hospital Stay: In the past Was patient's stay within the last 30 days?: Yes When did patient receive care?: 10/18/18 Name of hospital: Readmission Code Group: 9. Unrelated Readmision Related or Unrelated?: Unrelated ASHLEY Mcdaniel, business management associate [phone] ING GUIDE * ED Notes - Herminia Leavitt RN - 11/15/2018 7:00 PM FISHING GUIDE Report given to SHAVON Francisco ING GUIDE * ED Notes - Amaya Curiel RN - 11/15/2018 6:47 PM FISHING GUIDE [id number] bed assigned, please call Herminia for report @ [phone], thanks! ING GUIDE * ED Notes - Herminia Leavitt RN - 11/15/2018 6:23 PM FISHING GUIDE SHAVON Parada given report ING GUIDE * ED Notes - Amaya Curiel RN - 11/15/2018 5:53 PM FISHING GUIDE [id number] bed assigned, please call Herminia for report @ [phone], thanks! ING GUIDE * ED Provider Notes - Aleah Wheatley MD - 11/15/2018 5:01 PM FISHING GUIDE Chelsea Castillo is a 58 y.o. female. Chief Complaint: Chief Complaint Patient presents with Syncope Abdominal pain History of Present Illness: Patient is a 58-year-old female with a past medical history of CLL, not on chemotherapy as of yet, seizure disorder and type 1 diabetes as well as gastroparesis who presents to the emergency department with a chief complaint of syncope and abdominal pain. Karen states that over the last 3 days or so she has had nausea and vomiting and has been unable to take her medications. States that they were coming in today to the emergency department because of this and while although AN she passed out in the car and then passed out in the triage area of the ED. Denies any recent traumas, illnesses, fevers, chest pain , abdominal pain, dysuria, hematuria or blood in the stool. Denies any numbness /weakness/tingling or incontinence. Review of Systems: Review of Systems Constitutional: Positive for chills, diaphoresis and fatigue. HENT: Negative for ear pain, rhinorrhea, sinus pressure, sore throat, tinnitus and trouble swallowing. Eyes: Negative for pain and visual disturbance. Respiratory: Negative for cough, chest tightness, shortness of breath and wheezing. Cardiovascular: Negative for chest pain, palpitations and leg swelling. Gastrointestinal: Positive for nausea and vomiting. Negative for abdominal distention, abdominal pain, blood in stool, constipation and diarrhea. Genitourinary: Negative for dysuria and hematuria. Musculoskeletal: Negative for neck pain and neck stiffness. Skin: Negative for rash and wound. Neurological: Positive for syncope. Negative for dizziness, numbness and headaches. Psychiatric/Behavioral: Negative for confusion. Allergies: Sulfa (sulfonamide antibiotics) Past Medical History: Past Medical History: Diagnosis Date Arthritis Chronic [...] ESOPHAGUS SURGERY 03/2014 Esophageal ulcers and healing Past Medical History: Diagnosis Date Arthritis Chronic abdominal pain Cyclic vomiting syndrome Diabetes mellitus type 1 (HCC) Orthostatic hypotension Osteoporosis Stomach problems Thyroid disorder Social History: Social History Tobacco Use Smoking status: Never Smoker Smokeless tobacco: Never Used Substance Use Topics Alcohol use: No Drug use: No Social History Substance and Sexual Activity Drug Use No Family History: Family History Problem Relation Age of Onset GI Cancer Mother Cancer-Breast Maternal Grandmother Celiac Disease Neg Hx Cancer-Colon Neg Hx Colon Polyps Neg Hx Inflammatory Bowel Disease Neg Hx Rectal Cancer Neg Hx Ulcerative Colitis Neg Hx Vitals: ED Vitals Date and Time T BP P RR SPO2P SPO2 User 11/15/18 1508 -- -- 92 -- -- 100 % CW Physical Exam: Physical Exam Constitutional: She is oriented to person, place, and time. She appears well- developed and well-nourished. No distress. HENT: Head: Normocephalic and atraumatic. Mouth/Throat: Oropharynx is clear and moist. No oropharyngeal exudate. Eyes: Conjunctivae and EOM are normal. Pupils are equal, round, and reactive to light. Right eye exhibits no discharge. Left eye exhibits no discharge. No scleral icterus. Neck: Normal range of motion. Neck supple. No thyromegaly present. Cardiovascular: Normal rate, regular rhythm, normal heart sounds and intact distal pulses. No murmur heard. Pulses: Carotid pulses are 2+ on the right side, and 2+ on the left side. Radial pulses are 2+ on the right side, and 2+ on the left side. Popliteal pulses are 2+ on the right side, and 2+ on the left side. Pulmonary/Chest: Effort normal and breath sounds normal. No respiratory distress. She has no wheezes. She exhibits no tenderness. Abdominal: Soft. Bowel sounds are normal. She exhibits no distension. There is no tenderness. Musculoskeletal: Normal range of motion. She exhibits no edema, tenderness or deformity. Neurological: She is alert and oriented to person, place, and time. She has normal strength. She is not disoriented. She displays no atrophy and no tremor. No cranial nerve deficit or sensory deficit. She exhibits normal muscle tone. She displays no seizure activity. Coordination normal. GCS eye subscore is 4. GCS verbal subscore is 5. GCS motor subscore is 6. Skin: Skin is warm and dry. Capillary refill takes 2 to 3 seconds. No rash noted. She is not diaphoretic. No erythema. No pallor. Psychiatric: Thought content normal. Her mood appears anxious. Her affect is labile. Her speech is tangential. She is hyperactive. She is not actively hallucinating. She exhibits abnormal recent memory. She is inattentive. Nursing note and vitals reviewed. Laboratory Results: Results for orders placed or performed during the hospital encounter of (from the past 24 hour(s)) CBC AND DIFF Result Value Ref Range White Blood Cells 13.2 (H) 4.5 - 11.0 K/UL RBC 4.34 4.0 - 5.0 M/UL Hemoglobin 13.2 12.0 - 15.0 GM/DL Hematocrit 39.6 36 - 45 % MCV 91.4 80 - 100 FL MCH 30.4 26 - 34 PG MCHC 33.2 32.0 - 36.0 G/DL RDW 15.8 (H) 11 - 15 % Platelet Count 281 150 - 400 K/UL MPV 8.9 7 - 11 FL Neutrophils 64 41 - 77 % Lymphocytes 24 24 - 44 % Monocytes 5 4 - 12 % Eosinophils 7 (H) 0 - 5 % Basophils 0 0 - 2 % Absolute Neutrophil Count 8.30 (H) 1.8 - 7.0 K/UL Absolute Lymph Count 3.20 1.0 - 4.8 K/UL Absolute Monocyte Count 0.70 0 - 0.80 K/UL Absolute Eosinophil Count 1.00 (H) 0 - 0.45 K/UL Absolute Basophil Count 0.10 0 - 0.20 K/UL COMPREHENSIVE METABOLIC PANEL Result Value Ref Range Sodium 131 (L) 137 - 147 MMOL/L Potassium 3.8 3.5 - 5.1 MMOL/L Chloride 93 (L) 98 - 110 MMOL/L Glucose 421 (H) 70 - 100 MG/DL Blood Urea Nitrogen 11 7 - 25 MG/DL Creatinine 0.79 0.4 - 1.00 MG/DL Calcium 9.3 8.5 - 10.6 MG/DL Total Protein 6.6 6.0 - 8.0 G/DL Total Bilirubin 0.4 0.3 - 1.2 MG/DL Albumin 3.9 3.5 - 5.0 G/DL Alk Phosphatase 150 (H) 25 - 110 U/L AST (SGOT) 18 7 - 40 U/L CO2 18 (L) 21 - 30 MMOL/L ALT (SGPT) 14 7 - 56 U/L Anion Gap 20 (H) 3 - 12 eGFR Non >60 >60 mL/min eGFR >60 >60 mL/min LIPASE Result Value Ref Range Lipase 9 (L) 11 - 82 U/L TSH WITH FREE T4 REFLEX Result Value Ref Range TSH 0.690 0.35 - 5.00 MCU/ML MAGNESIUM Result Value Ref Range Magnesium 2.0 1.6 - 2.6 mg/dL TROPONIN-I Result Value Ref Range Troponin-I <0.01 0.0 - 0.05 NG/ML POC GLUCOSE Result Value Ref Range Glucose, POC 366 (H) 70 - 100 MG/DL BLOOD GASES, PERIPHERAL VENOUS Result Value Ref Range pH-Venous 7.33 7.30 - 7.40 PCO2-Venous 35 (L) 36 - 50 MMHG PO2-Venous 47 33 - 48 MMHG Base Deficit-Venous 6.7 MMOL/L O2 Sat-Venous 77.6 (H) 55 - 71 % [id number]-AGB-Wix 18.7 MMOL/L POC LACTATE Result Value Ref Range LACTIC ACID POC 2.4 (H) 0.5 - 2.0 MMOL/L BETA HYDROXYBUTYRATE (KETONES) Result Value Ref Range Beta Hydroxybutyrate 6.5 (H) <0.3 MMOL/L OSMOLALITY Result Value Ref Range Osmolality 297 280 - 307 MOSMOL/KG URINALYSIS DIPSTICK Result Value Ref Range Color,UA YELLOW Turbidity,UA CLEAR CLEAR-CLEAR Specific [place]-Urine 1.028 1.003 - 1.035 pH,UA 5.0 5.0 - 8.0 Protein,UA 1+ (A) NEG-NEG Glucose,UA 3+ (A) NEG-NEG Ketones,UA 2+ (A) NEG-NEG Bilirubin,UA NEG NEG-NEG Blood,UA NEG NEG-NEG Urobilinogen,UA NORMAL NORM-NORMAL Nitrite,UA NEG NEG-NEG Leukocytes,UA NEG NEG-NEG Urine Ascorbic Acid, UA NEG NEG-NEG URINALYSIS, MICROSCOPIC Result Value Ref Range WBCs,UA 0-2 0 - 2 /HPF RBCs,UA 0-2 0 - 3 /HPF MucousUA TRACE Bacteria,UA FEW (A) NEG-NEG Squamous Epithelial Cells 0-2 0 - 5 POC GLUCOSE Result Value Ref Range Glucose, POC 357 (H) 70 - 100 MG/DL POC Glucose (Download): (!) 357 Radiology Interpretation: CT HEAD WO CONTRAST Final Result No acute intracranial abnormality. Finalized by ISRAEL MENDIETA M.D. on 11/15/2018 4:54 PM. Dictated by ISRAEL MENDIETA M.D. on 11/15/2018 4:53 PM. EKG: RRR, no significant JESÚS or ST/T changes or abnormalities, no significant QT prolongation ED Course: Patient is a 58-year-old female who was evaluated and treated by ED resident and attending for a chief complaint of syncope, nausea vomiting Vital signs are concerning. Physical exam noted above. Patient placed on the monitor with IV access established and IV fluid resuscitation started. EKG and troponins not concerning. Head CT not concerning. Laboratory analysis notable for hyponatremia, hyperglycemia, elevated alk phos, elevated anion gap, low CO2, leukocytosis, elevated lactate, elevated serum ketones Patient continued on IV fluid resuscitation, given dose of Ativan and started on an insulin drip. Discussed all findings with patient and family and recommended admission to the internal medicine service for continued evaluation and treatment of her syncope , nausea and vomiting as well as hyperglycemic ketotic state. Family grateful, verbalized understanding and agreed with plan of admission. MDM Reviewed: previous chart, nursing note and vitals Interpretation: labs, ECG, x-ray and CT scan Facility Administered Meds: Facility-Administered Medications as of 11/15/2018 Medication Last Dose insulin regular (NOVOLIN R) 100 Units in sodium chloride 0.9% (NS) 100 mL IV drip (std conc) 6 Units/hr at 11/15/18 1658 [COMPLETED] lactated ringers infusion 1,000 mL at 11/15/18 1529 lactated ringers infusion [COMPLETED] LORazepam (ATIVAN) injection 1 mg 1 mg at 11/15/18 1614 Clinical Impression: Final diagnoses: Syncope and collapse (Primary) Non-intractable vomiting with nausea, unspecified vomiting type Disposition/Follow up No follow-up provider specified. Medications: New Prescriptions No medications on file Procedure Notes: Procedures Attestation / Supervision: Attestation / Supervision Note concerning Chelsea K Issa Castillo: I personally performed the ortega portions of the E/M visit, discussed case with resident and concur with resident documentation of history, physical exam, assessment, and treatment plan unless otherwise noted. MD Elie CAMPBELL MD ING GUIDE * ED Notes - Herminia Leavitt RN - 11/15/2018 4:00 PM FISHING GUIDE Pt rocking back and forth in bed, mumbling constantly in a high pitched voice. Doubtful she will sit still for a CT. Pt having to be reminded constantly to sit back in bed. Dr. Khan notified ING GUIDE * ED Notes - Ana Laura De Souza RN - 11/15/2018 3:55 PM FISHING GUIDE Report to SHAVON Hope ING GUIDE * ED Notes - Ana Laura De Souza RN - 11/15/2018 3:41 PM FISHING GUIDE Belongings as follows: purple plaid shirt--cut, pants, panties, two socks, one shoe, one air splint, two coats. Pt's denies that she has any other belongings. All belongings with pt at the bedside. ING GUIDE * ED Notes - Ana Laura De Souza RN - 11/15/2018 3:36 PM FISHING GUIDE Pt crying, making unintelligible noises and hitting her . ING GUIDE * ED Notes - Ashley Ramon RN - 11/15/2018 3:16 PM FISHING GUIDE Pt presents to ER trauma bay 2 after possible syncopal episode in triage. Pt anxious and impulsive. Pt has rapid speech. Pt tearful. Pt reports recent abdominal pain with nausea and vomiting. Pt reports last BM today. Pt had recent admit for gastroparesis. Pt has left leg in boot due to recent fracture. Bed low and locked. Dr. Khan at bedside. Will continue to monitor. ING GUIDE in this encounter Plan of Treatment Care Team Description Date Type Specialty Gunnar Kirk MD [address] [place] [address] Delayed gastric emptying 02/03/2019 Hospital Encounter Gunnar Kirk MD [address] [place], [place] [id number] ESOPHAGOGASTRODUODENOSCOPY WITH SPECIMEN COLLECTION BY BRUSHING/ WASHING 02/03/2019 Surgery as of this encounter Procedures Comments Procedure Name Priority Date/Time Associated Diagnosis POC GLUCOSE 11/20/2018 12:34 PM FISHING GUIDE POC GLUCOSE 11/20/2018 8:43 AM FISHING GUIDE CBC AND DIFF Routine 11/20/2018 4:20 AM FISHING GUIDE PHOSPHORUS Routine 11/20/2018 4:20 AM FISHING GUIDE MAGNESIUM Routine 11/20/2018 4:20 AM FISHING GUIDE COMPREHENSIVE METABOLIC Routine 11/20/2018 PANEL 4:20 AM FISHING GUIDE POC GLUCOSE 11/19/2018 11:52 PM FISHING GUIDE POC GLUCOSE 11/19/2018 7:55 PM FISHING GUIDE POC GLUCOSE 11/19/2018 5:54 PM FISHING GUIDE POC GLUCOSE 11/19/2018 12:39 PM FISHING GUIDE POC GLUCOSE 11/19/2018 8:21 AM FISHING GUIDE POC GLUCOSE 11/19/2018 6:07 AM FISHING GUIDE CBC AND DIFF Routine 11/19/2018 4:00 AM FISHING GUIDE PHOSPHORUS Routine 11/19/2018 4:00 AM FISHING GUIDE MAGNESIUM Routine 11/19/2018 4:00 AM FISHING GUIDE COMPREHENSIVE METABOLIC Routine 11/19/2018 PANEL 4:00 AM FISHING GUIDE POC GLUCOSE 11/18/2018 10:46 PM FISHING GUIDE POC GLUCOSE 11/18/2018 5:51 PM FISHING GUIDE POC GLUCOSE 11/18/2018 12:48 PM FISHING GUIDE POC GLUCOSE 11/18/2018 8:54 AM FISHING GUIDE POC GLUCOSE 11/18/2018 7:51 AM FISHING GUIDE CBC AND DIFF Routine 11/18/2018 4:15 AM FISHING GUIDE PHOSPHORUS Routine 11/18/2018 4:15 AM FISHING GUIDE MAGNESIUM Routine 11/18/2018 4:15 AM FISHING GUIDE COMPREHENSIVE METABOLIC Routine 11/18/2018 PANEL 4:15 AM FISHING GUIDE POC GLUCOSE 11/18/2018 3:07 AM FISHING GUIDE POC GLUCOSE 11/17/2018 9:14 PM FISHING GUIDE POC GLUCOSE 11/17/2018 7:32 PM FISHING GUIDE POC GLUCOSE 11/17/2018 5:59 PM FISHING GUIDE POC GLUCOSE 11/17/2018 5:45 PM FISHING GUIDE POC GLUCOSE 11/17/2018 5:29 PM FISHING GUIDE POC GLUCOSE 11/17/2018 3:42 PM FISHING GUIDE POC GLUCOSE 11/17/2018 10:53 AM FISHING GUIDE CBC AND DIFF Routine 11/17/2018 8:20 AM FISHING GUIDE PHOSPHORUS Routine 11/17/2018 8:20 AM FISHING GUIDE MAGNESIUM Routine 11/17/2018 8:20 AM FISHING GUIDE COMPREHENSIVE METABOLIC Routine 11/17/2018 PANEL 8:20 AM FISHING GUIDE POC GLUCOSE 11/17/2018 6:29 AM FISHING GUIDE POC GLUCOSE 11/16/2018 9:17 PM FISHING GUIDE PHOSPHORUS Routine 11/16/2018 9:00 PM FISHING GUIDE MAGNESIUM Routine 11/16/2018 9:00 PM FISHING GUIDE BASIC METABOLIC PANEL Routine 11/16/2018 9:00 PM FISHING GUIDE POC GLUCOSE 11/16/2018 5:39 PM FISHING GUIDE PHOSPHORUS Routine 11/16/2018 2:13 PM FISHING GUIDE MAGNESIUM Routine 11/16/2018 2:13 PM FISHING GUIDE BASIC METABOLIC PANEL Routine 11/16/2018 2:13 PM FISHING GUIDE POC GLUCOSE 11/16/2018 2:02 PM FISHING GUIDE POC GLUCOSE 11/16/2018 12:52 PM FISHING GUIDE POC GLUCOSE 11/16/2018 11:42 AM FISHING GUIDE POC GLUCOSE 11/16/2018 10:37 AM FISHING GUIDE POC GLUCOSE 11/16/2018 9:33 AM FISHING GUIDE POC GLUCOSE 11/16/2018 8:29 AM FISHING GUIDE PHOSPHORUS Routine 11/16/2018 8:19 AM FISHING GUIDE MAGNESIUM Routine 11/16/2018 8:19 AM FISHING GUIDE BASIC METABOLIC PANEL Routine 11/16/2018 8:19 AM FISHING GUIDE POC GLUCOSE 11/16/2018 7:34 AM FISHING GUIDE POC GLUCOSE 11/16/2018 6:29 AM FISHING GUIDE POC GLUCOSE 11/16/2018 5:27 AM FISHING GUIDE POC GLUCOSE 11/16/2018 4:24 AM FISHING GUIDE POC GLUCOSE 11/16/2018 3:38 AM FISHING GUIDE POC GLUCOSE 11/16/2018 2:33 AM FISHING GUIDE TSH WITH FREE T4 REFLEX Routine 11/16/2018 1:45 AM FISHING GUIDE CBC AND DIFF Routine 11/16/2018 1:45 AM FISHING GUIDE PHOSPHORUS Routine 11/16/2018 1:45 AM FISHING GUIDE MAGNESIUM Routine 11/16/2018 1:45 AM FISHING GUIDE COMPREHENSIVE METABOLIC Routine 11/16/2018 PANEL 1:45 AM FISHING GUIDE POC GLUCOSE 11/16/2018 1:30 AM FISHING GUIDE POC GLUCOSE 11/16/2018 12:27 AM FISHING GUIDE POC GLUCOSE 11/15/2018 11:20 PM FISHING GUIDE POC GLUCOSE 11/15/2018 10:03 PM FISHING GUIDE POC GLUCOSE 11/15/2018 8:51 PM FISHING GUIDE CULTURE-BLOOD STAT 11/15/2018 W/SENSITIVITY 8:00 PM FISHING GUIDE PHOSPHORUS Routine 11/15/2018 8:00 PM FISHING GUIDE MAGNESIUM Routine 11/15/2018 8:00 PM FISHING GUIDE BASIC METABOLIC PANEL Routine 11/15/2018 8:00 PM FISHING GUIDE POC LACTATE 11/15/2018 7:58 PM FISHING GUIDE POC GLUCOSE 11/15/2018 7:43 PM FISHING GUIDE POC GLUCOSE 11/15/2018 7:05 PM FISHING GUIDE POC GLUCOSE 11/15/2018 6:26 PM FISHING GUIDE POC GLUCOSE 11/15/2018 5:53 PM FISHING GUIDE CONSULT IV THERAPY TEAM STAT 11/15/2018 5:49 PM FISHING GUIDE POC GLUCOSE 11/15/2018 4:[address] HEAD WO CONTRAST STAT 11/15/2018 4:42 PM FISHING GUIDE URINALYSIS, MICROSCOPIC STAT 11/15/2018 3:28 PM FISHING GUIDE URINALYSIS DIPSTICK STAT 11/15/2018 3:28 PM FISHING GUIDE BETA HYDROXYBUTYRATE STAT 11/15/2018 (KETONES) 3:27 PM FISHING GUIDE OSMOLALITY STAT 11/15/2018 3:27 PM FISHING GUIDE POC LACTATE 11/15/2018 3:22 PM FISHING GUIDE BLOOD GASES, PERIPHERAL STAT 11/15/2018 VENOUS 3:19 PM FISHING GUIDE POC GLUCOSE 11/15/2018 3:17 PM FISHING GUIDE TSH WITH FREE T4 REFLEX STAT 11/15/2018 3:16 PM FISHING GUIDE CULTURE-BLOOD STAT 11/15/2018 W/SENSITIVITY 3:16 PM FISHING GUIDE TROPONIN-I Add on 11/15/2018 3:16 PM FISHING GUIDE CBC AND DIFF STAT 11/15/2018 3:16 PM FISHING GUIDE MAGNESIUM STAT 11/15/2018 3:16 PM FISHING GUIDE LIPASE STAT 11/15/2018 3:16 PM FISHING GUIDE COMPREHENSIVE METABOLIC STAT 11/15/2018 PANEL 3:16 PM FISHING GUIDE ECG 12-LEAD STAT 11/15/2018 3:04 PM FISHING GUIDE ECG-SCAN 11/15/2018 12:00 AM FISHING GUIDE in this encounter Results * POC GLUCOSE (11/20/2018 12:34 PM FISHING GUIDE) Glucose, POC 215 (H) 70 - 100 MG/DL [facility] Performing Organization Address City/[facility] Phone Number [facility] [address] [place] [address] * POC GLUCOSE (11/20/2018 8:43 AM FISHING GUIDE) Glucose, POC 212 (H) 70 - 100 MG/DL [facility] Performing Organization Address [facility] Phone Number [facility] [address] [place] [address] * PHOSPHORUS (11/20/2018 4:20 AM FISHING GUIDE) Phosphorus 3.8Comment: NOTE NEW REFERENCE 2.0 - 4.5 MG/DL [facility] RANGES Specimen Blood Performing Organization Address [facility] Phone Number [facility] [address] [place] [address] * MAGNESIUM (11/20/2018 4:20 AM FISHING GUIDE) Magnesium 1.9 1.6 - 2.6 mg/dL [facility] Specimen Blood Performing Organization Address [facility] Phone Number [facility] [address] [place] [address] * COMPREHENSIVE METABOLIC PANEL (11/20/2018 4:20 AM FISHING GUIDE) Sodium 141 137 - 147 MMOL/L [facility] [...] City/State/Zipcode Phone Number [facility] [address] [place] [address] * CBC AND DIFF (11/20/2018 4:20 AM FISHING GUIDE) White Blood Cells 8.2 4.5 - 11.0 K/UL [facility] RBC 3.73 (L) 4.0 - 5.0 M/UL [facility] Hemoglobin 11.3 (L) 12.0 - 15.0 GM/DL [facility] Hematocrit 34.5 (L) 36 - 45 % [facility] MCV 92.5 80 - 100 FL [facility] MCH 30.4 26 - 34 PG [facility] MCHC 32.9 32.0 - 36.0 G/DL [facility] RDW 15.8 (H) 11 - 15 % [facility] Platelet Count 208 150 - 400 K/UL [facility] [...] Address City/State/Zipcode Phone Number [facility] [address] [place] [address] * POC GLUCOSE (11/19/2018 11:52 PM FISHING GUIDE) Glucose, POC 168 (H) 70 - 100 MG/DL [facility] Performing Organization Address City/State/Zipcode Phone Number [facility] [address] [place] [address] * POC GLUCOSE (11/19/2018 7:55 PM FISHING GUIDE) Glucose, POC 128 (H) 70 - 100 MG/DL [facility] Performing Organization Address City/State/Zipcode Phone Number [facility] [address] [place] [address] * POC GLUCOSE (11/19/2018 5:54 PM FISHING GUIDE) Glucose, POC 219 (H) 70 - 100 MG/DL [facility] Performing Organization Address City/[facility]/Zipcode Phone Number [facility] [address] [place] [address] * POC GLUCOSE (11/19/2018 12:39 PM FISHING GUIDE) Glucose, POC 390 (H) 70 - 100 MG/DL [facility] Performing Organization Address City/[facility]/Zipcode Phone Number [facility] [address] [place] [address] * POC GLUCOSE (11/19/2018 8:21 AM FISHING GUIDE) Glucose, POC 186 (H) 70 - 100 MG/DL [facility] Performing Organization Address City/[facility]/Zipcode Phone Number [facility] [address] [place] [address] * POC GLUCOSE (11/19/2018 6:07 AM FISHING GUIDE) Glucose, POC 143 (H) 70 - 100 MG/DL [facility] Performing Organization Address City/State/Zipcode Phone Number [facility] [address] [place] [address] * PHOSPHORUS (11/19/2018 4:00 AM FISHING GUIDE) Phosphorus 4.2Comment: NOTE NEW REFERENCE 2.0 - 4.5 MG/DL [facility] RANGES Specimen Blood Performing Organization Address City/State/Zipcode Phone Number [facility] [address] [place] [address] * MAGNESIUM (11/19/2018 4:00 AM FISHING GUIDE) Magnesium 1.9 1.6 - 2.6 mg/dL [facility] Specimen Blood Performing Organization Address City/State/Zipcode Phone Number [facility] [address] [place] [address] * COMPREHENSIVE METABOLIC PANEL (11/19/2018 4:00 AM FISHING GUIDE) Sodium 142 137 - 147 MMOL/L [facility] Potassium 3.3 (L) 3.5 - 5.1 MMOL/L [facility] Chloride 104 98 - 110 MMOL/L [facility] Glucose 149 (H) 70 - 100 MG/DL [facility] Blood Urea Nitrogen 9 7 - 25 MG/DL [facility] Creatinine 0.69 0.4 - 1.00 MG/DL [facility] Calcium 8.3 (L) 8.5 - 10.6 MG/DL [facility] Total Protein 5.0 (L) 6.0 - 8.0 G/DL [facility] Total Bilirubin 0.2 (L) 0.3 - 1.2 MG/DL [facility] Albumin 3.0 (L) 3.5 - 5.0 G/DL [facility] Alk Phosphatase 136 (H) 25 - 110 U/L [facility] AST (SGOT) 26 7 - 40 U/L [facility] CO2 33 (H) 21 - 30 MMOL/L [facility] ALT (SGPT) 38 7 - 56 U/L [facility] Anion Gap 5 3 - 12 [facility] eGFR [...] Address City/State/Zipcode Phone Number [facility] [address] [place] [address] * CBC AND DIFF (11/19/2018 4:00 AM FISHING GUIDE) White Blood Cells 7.7 4.5 - 11.0 K/UL [facility] RBC 3.80 (L) 4.0 - 5.0 M/UL [facility] Hemoglobin 11.7 (L) 12.0 - 15.0 GM/DL [facility] Hematocrit 35.3 (L) 36 - 45 % [facility] MCV 93.0 80 - 100 FL [facility] MCH 30.8 26 - 34 PG [facility] MCHC 33.1 32.0 - 36.0 G/DL [facility] RDW 15.3 (H) 11 - 15 % [facility] Platelet Count 223 150 - 400 K/UL [facility] MPV 9.0 7 - 11 FL [facility] Segmented Neutrophils 23 (L) 41 - 77 % [facility] Lymphocytes 53 (H) 24 - 44 % [facility] Monocytes 7 4 - 12 % [facility] Eosinophil 17 (H) 0 - 5 % [facility] Normal RBC Morph NORMAL [facility] Platelet Estimate NORMAL [facility] Absolute Neutrophil Count 1.77 (L) 1.8 - 7.0 K/UL [facility] Manual Specimen Blood Performing Organization Address City/[facility] Phone Number [facility] [address] [place] [address] * POC GLUCOSE (11/18/2018 10:46 PM FISHING GUIDE) Glucose, POC 226 (H) 70 - 100 MG/DL [facility] Performing Organization Address City/[facility] Phone Number [facility] [address] [place] [address] * POC GLUCOSE (11/18/2018 5:51 PM FISHING GUIDE) Glucose, POC 173 (H) 70 - 100 MG/DL [facility] Performing Organization Address [facility] [facility] Phone Number [facility] [address] [phone] * POC GLUCOSE (11/18/2018 12:48 PM FISHING GUIDE) Glucose, POC 254 (H) 70 - 100 MG/DL [facility] Performing Organization Address City/[facility] Phone Number [facility] [address] [place] [address] * POC GLUCOSE (11/18/2018 8:54 AM FISHING GUIDE) Glucose, POC 82 70 - 100 MG/DL [facility] Performing Organization Address City/[facility] Phone Number [facility] [address] [place] [address] * POC GLUCOSE (11/18/2018 7:51 AM FISHING GUIDE) Glucose, POC 74 70 - 100 MG/DL [facility] Performing Organization Address City/[facility] Phone Number [facility] [address] [place] [address] * PHOSPHORUS (11/18/2018 4:15 AM FISHING GUIDE) Phosphorus 3.3Comment: NOTE NEW REFERENCE 2.0 - 4.5 MG/DL [facility] RANGES Specimen Blood Performing Organization Address City/[facility] Phone Number [facility] [address] [place] [address] * MAGNESIUM (11/18/2018 4:15 AM FISHING GUIDE) Magnesium 2.0 1.6 - 2.6 mg/dL [facility] Specimen Blood Performing Organization Address [facility] Phone Number [facility] [address] [place] [address] * COMPREHENSIVE METABOLIC PANEL (11/18/2018 4:15 AM FISHING GUIDE) Sodium 142 137 - 147 MMOL/L [facility] Potassium 3.8 3.5 - 5.1 MMOL/L [facility] Chloride 109 98 - 110 MMOL/L [facility] Glucose 121 (H) 70 - 100 MG/DL [facility] Blood Urea Nitrogen 5 (L) 7 - 25 MG/DL [facility] Creatinine 0.65 0.4 - 1.00 MG/DL [facility] Calcium 8.1 (L) 8.5 - 10.6 MG/DL [facility] Total Protein 4.6 (L) 6.0 - 8.0 G/DL [facility] Total Bilirubin 0.2 (L) 0.3 - 1.2 MG/DL [facility] Albumin 2.8 (L) 3.5 - 5.0 G/DL [facility] Alk Phosphatase 134 (H) 25 - 110 U/L [facility] AST (SGOT) 70 (H) 7 - 40 U/L [facility] CO2 30 21 - 30 MMOL/L [facility] ALT (SGPT) 50 7 - 56 U/L [facility] Anion Gap 3 3 - 12 [facility] eGFR [...] for questions. Specimen Blood Performing Organization Address [facility] Phone Number [facility] [address] [place] [address] * CBC AND DIFF (11/18/2018 4:15 AM FISHING GUIDE) White Blood Cells 8.5 4.5 - 11.0 K/UL [facility] RBC 3.46 (L) 4.0 - 5.0 M/UL [facility] Hemoglobin 10.6 (L) 12.0 - 15.0 GM/DL [facility] Hematocrit 31.7 (L) 36 - 45 % [facility] MCV 91.7 80 - 100 FL [facility] MCH 30.7 26 - 34 PG [facility] MCHC 33.5 32.0 - 36.0 G/DL [facility] RDW 15.6 (H) 11 - 15 % [facility] Platelet Count 199 150 - 400 K/UL [facility] MPV 8.7 7 - 11 FL [facility] Segmented Neutrophils 32 (L) 41 - 77 % [facility] Lymphocytes 51 (H) 24 - 44 % [facility] Monocytes 7 4 - 12 % [facility] Eosinophil 9 (H) 0 - 5 % [facility] Basophil 1 0 - 2 % [facility] Normal RBC Morph NORMAL [facility] Platelet Estimate NORMAL [facility] Absolute Neutrophil Count 2.72 1.8 - 7.0 K/UL [facility] Manual Specimen Blood Performing Organization Address [facility] Phone Number [facility] [address] [place] [address] * POC GLUCOSE (11/18/2018 3:07 AM FISHING GUIDE) Glucose, POC 136 (H) 70 - 100 MG/DL [facility] Performing Organization Address City/[facility] Phone Number [facility] [address] [place] [address] * POC GLUCOSE (11/17/2018 9:14 PM FISHING GUIDE) Glucose, POC 215 (H) 70 - 100 MG/DL [facility] Performing Organization Address City/State/Zipcode Phone Number [facility] [address] [place] [address] * POC GLUCOSE (11/17/2018 7:32 PM FISHING GUIDE) Glucose, POC 158 (H) 70 - 100 MG/DL [facility] Performing Organization Address City/State/Zipcode Phone Number MAIN LAB [address] [place] [address] * POC GLUCOSE (11/17/2018 5:59 PM FISHING GUIDE) Glucose, POC 142 (H) 70 - 100 MG/DL [facility] Performing Organization Address City/State/Zipcode Phone Number MAIN LAB [address] [place] [address] * POC GLUCOSE (11/17/2018 5:45 PM FISHING GUIDE) Glucose, POC 73 70 - 100 MG/DL [facility] Performing Organization Address City/State/Zipcode Phone Number MAIN LAB [address] [place] [address] * POC GLUCOSE (11/17/2018 5:29 PM FISHING GUIDE) Glucose, POC 66 (L) 70 - 100 MG/DL MAIN LAB Performing Organization Address City/[facility]/Zipcode Phone Number MAIN LAB [address] [place] [address] * POC GLUCOSE (11/17/2018 3:42 PM FISHING GUIDE) Glucose, POC 142 (H) 70 - 100 MG/DL [facility] Performing Organization Address City/[facility]/Zipcode Phone Number MAIN LAB [address] [place] [address] * POC GLUCOSE (11/17/2018 10:53 AM FISHING GUIDE) Glucose, POC 148 (H) 70 - 100 MG/DL [facility] Performing Organization Address City/State/Zipcode Phone Number MAIN LAB [address] [place] [address] * PHOSPHORUS (11/17/2018 8:20 AM FISHING GUIDE) Phosphorus 3.4Comment: NOTE NEW REFERENCE 2.0 - 4.5 MG/DL [facility] RANGES Specimen Blood Performing Organization Address City/State/Zipcode Phone Number MAIN LAB [address] [place] [address] * MAGNESIUM (11/17/2018 8:20 AM FISHING GUIDE) Magnesium 1.9 1.6 - 2.6 mg/dL [facility] Specimen Blood Performing Organization Address City/State/Zipcode Phone Number MAIN LAB [address] [place] [address] * COMPREHENSIVE METABOLIC PANEL (11/17/2018 8:20 AM FISHING GUIDE) Sodium 139 137 - 147 MMOL/L [facility] Potassium 3.7 3.5 - 5.1 MMOL/L [facility] Chloride 111 (H) 98 - 110 MMOL/L [facility] Glucose 160 (H) 70 - 100 MG/DL [facility] Blood Urea Nitrogen 4 (L) 7 - 25 MG/DL [facility] Creatinine 0.70 0.4 - 1.00 MG/DL [facility] Calcium 7.9 (L) 8.5 - 10.6 MG/DL [facility] Total Protein 4.3 (L) 6.0 - 8.0 G/DL [facility] Total Bilirubin 0.2 (L) 0.3 - 1.2 MG/DL [facility] Albumin 2.7 (L) 3.5 - 5.0 G/DL [facility] Alk Phosphatase 112 (H) 25 - 110 U/L [facility] AST (SGOT) 26 7 - 40 U/L [facility] CO2 25 21 - 30 MMOL/L [facility] ALT (SGPT) 17 7 - 56 U/L [facility] Anion Gap 3 3 - 12 [facility] eGFR [...] Address City/State/Zipcode Phone Number MAIN LAB [address] [place] [address] * CBC AND DIFF (11/17/2018 8:20 AM FISHING GUIDE) White Blood Cells 9.7 4.5 - 11.0 K/UL [facility] RBC 3.22 (L) 4.0 - 5.0 M/UL [facility] Hemoglobin 9.8 (L) 12.0 - 15.0 GM/DL [facility] Hematocrit 29.8 (L) 36 - 45 % [facility] MCV 92.5 80 - 100 FL [facility] MCH 30.2 26 - 34 PG [facility] MCHC 32.7 32.0 - 36.0 G/DL [facility] RDW 15.9 (H) 11 - 15 % [facility] Platelet Count 200 150 - 400 K/UL [facility] MPV 8.5 7 - 11 FL [facility] Neutrophils 13 (L) 41 - 77 % [facility] Lymphocytes 62 (H) 24 - 44 % [facility] Monocytes 5 4 - 12 % [facility] Eosinophils 19 (H) 0 - 5 % [facility]IN [facility] Basophils 1 0 - 2 % [facility]IN [facility] Absolute Neutrophil Count 1.30 (L) 1.8 - 7.0 K/UL [facility] Absolute Lymph Count 5.90 (H) 1.0 - 4.8 K/UL [facility] Absolute Monocyte Count 0.50 0 - 0.80 K/UL MAIN [facility] Absolute Eosinophil Count 1.90 (H) 0 - 0.45 K/UL [facility] Absolute Basophil Count 0.10 0 - 0.20 K/UL MAIN [facility] Specimen Blood Performing Organization Address [facility] Phone Number MAIN LAB [address] [place] [address] * POC GLUCOSE (11/17/2018 6:29 AM FISHING GUIDE) Glucose, POC 137 (H) 70 - 100 MG/DL [facility] Performing Organization Address [facility] Phone Number MAIN LAB [address] [place] [address] * POC GLUCOSE (11/16/2018 9:17 PM FISHING GUIDE) Glucose, POC 168 (H) 70 - 100 MG/DL [facility] Performing Organization Address [facility] Phone Number MAIN LAB [address] [place] [address] * PHOSPHORUS (11/16/2018 9:00 PM FISHING GUIDE) Phosphorus 2.7Comment: NOTE NEW REFERENCE 2.0 - 4.5 MG/DL [facility] RANGES Specimen Blood Performing Organization Address City/[facility] Phone Number [facility] [address] [place] [address] * MAGNESIUM (11/16/2018 9:00 PM FISHING GUIDE) Magnesium 1.9 1.6 - 2.6 mg/dL [facility] Specimen Blood Performing Organization Address [facility] Phone Number [facility] [address] [place] [address] * BASIC METABOLIC PANEL (11/16/2018 9:00 PM FISHING GUIDE) Sodium 136 (L) 137 - 147 MMOL/L [...] for questions. Specimen Blood Performing Organization Address [facility] Phone Number MA[facility] [address] [place] [address] * POC GLUCOSE (11/16/2018 5:39 PM FISHING GUIDE) Glucose, POC 138 (H) 70 - 100 MG/DL [facility] Performing Organization Address [facility] Phone Number [facility] [address] [place] [address] * PHOSPHORUS (11/16/2018 2:13 PM FISHING GUIDE) Phosphorus 2.1Comment: NOTE NEW REFERENCE 2.0 - 4.5 MG/DL [facility] RANGES Specimen Blood Performing Organization Address City/[facility]/Zipcode Phone Number [facility] [address] [place] [address] * MAGNESIUM (11/16/2018 2:13 PM FISHING GUIDE) Magnesium 1.9 1.6 - 2.6 mg/dL MAIN LAB Specimen Blood Performing Organization Address City/[facility] Phone Number [facility] [address] [place] [address] * BASIC METABOLIC PANEL (11/16/2018 2:13 PM FISHING GUIDE) Sodium 134 (L) 137 - 147 MMOL/L [facility] Potassium 3.3 (L) 3.5 - 5.1 MMOL/L [facility] Chloride 107 98 - 110 MMOL/L [facility] CO2 24 21 - 30 MMOL/L [facility] Anion Gap 3 3 - 12 [facility]IN LAB Glucose 158 (H) 70 - 100 MG/DL [facility]IN [facility] Blood Urea Nitrogen 5 (L) 7 - 25 MG/DL [facility] Creatinine 0.69 0.4 - 1.00 MG/DL [facility] Calcium 7.6 (L) 8.5 - 10.6 MG/DL [facility]IN [facility] eGFR Non >60 >60 mL/min [...] for questions. Specimen Blood Performing Organization Address City/[facility]/Zipcode Phone Number MAIN LAB [address] [place] [address] * POC GLUCOSE (11/16/2018 2:02 PM FISHING GUIDE) Glucose, POC 151 (H) 70 - 100 MG/DL [facility] Performing Organization Address City/[facility]/Zipcode Phone Number MAIN LAB [address] [place] [address] * POC GLUCOSE (11/16/2018 12:52 PM FISHING GUIDE) Glucose, POC 159 (H) 70 - 100 MG/DL [facility] Performing Organization Address City/[facility]/Zipcode Phone Number MAIN LAB [address] [place] [address] * POC GLUCOSE (11/16/2018 11:42 AM FISHING GUIDE) Glucose, POC 195 (H) 70 - 100 MG/DL [facility] Performing Organization Address [facility] Phone Number [facility] [address] [place] [address] * POC GLUCOSE (11/16/2018 10:37 AM FISHING GUIDE) Glucose, POC 208 (H) 70 - 100 MG/DL [facility] Performing Organization Address [facility] Phone Number [facility] [address] [place] [address] * POC GLUCOSE (11/16/2018 9:33 AM FISHING GUIDE) Glucose, POC 197 (H) 70 - 100 MG/DL [facility] Performing Organization Address [facility] Phone Number MAIN LAB [address] [place] [address] * POC GLUCOSE (11/16/2018 8:29 AM FISHING GUIDE) Glucose, POC 181 (H) 70 - 100 MG/DL [facility] Performing Organization Address [facility] Phone Number MAIN LAB [address] [place] [address] * PHOSPHORUS (11/16/2018 8:19 AM FISHING GUIDE) Phosphorus 3.2Comment: NOTE NEW REFERENCE 2.0 - 4.5 MG/DL [facility] RANGES Specimen Blood Performing Organization Address [facility] Phone Number MAIN LAB [address] [place] [address] * MAGNESIUM (11/16/2018 8:19 AM FISHING GUIDE) Magnesium 1.9 1.6 - 2.6 mg/dL [facility] Specimen Blood Performing Organization Address [facility] Phone Number [facility] [address] [place] [address] * BASIC METABOLIC PANEL (11/16/2018 8:19 AM FISHING GUIDE) Sodium 137 137 - 147 MMOL/L [facility] Potassium 3.8 3.5 - 5.1 MMOL/L [facility] Chloride 108 98 - 110 MMOL/L [facility] CO2 23 21 - 30 MMOL/L [facility] Anion Gap 6 3 - 12 [facility] Glucose 227 (H) 70 - 100 MG/DL [facility] Blood Urea Nitrogen 7 7 - 25 MG/DL [facility] Creatinine 0.66 0.4 - 1.00 MG/DL [facility] Calcium 8.2 (L) 8.5 - 10.6 MG/DL MAIN LAB eGFR Non >60 >60 mL/min [...] for questions. Specimen Blood Performing Organization Address City/[facility]/Zipcode Phone Number MAIN LAB [address] [place] [address] * POC GLUCOSE (11/16/2018 7:34 AM FISHING GUIDE) Glucose, POC 174 (H) 70 - 100 MG/DL [facility] Performing Organization Address City/[facility] Phone Number [facility] [address] [place] [address] * POC GLUCOSE (11/16/2018 6:29 AM FISHING GUIDE) Glucose, POC 124 (H) 70 - 100 MG/DL [facility] Performing Organization Address [facility] Phone Number [facility] [address] [phone] * POC GLUCOSE (11/16/2018 5:27 AM FISHING GUIDE) Glucose, POC 95 70 - 100 MG/DL [facility] Performing Organization Address City/[facility] Phone Number [facility] [address] [place] [address] * POC GLUCOSE (11/16/2018 4:24 AM FISHING GUIDE) Glucose, POC 112 (H) 70 - 100 MG/DL [facility] Performing Organization Address [facility] Phone Number [facility] [address] [place] [address] * POC GLUCOSE (11/16/2018 3:38 AM FISHING GUIDE) Glucose, POC 117 (H) 70 - 100 MG/DL [facility] Performing Organization Address City/[facility] Phone Number [facility] [address] [place] [address] * POC GLUCOSE (11/16/2018 2:33 AM FISHING GUIDE) Glucose, POC 135 (H) 70 - 100 MG/DL [facility] Performing Organization Address [facility]ofl Phone Number [facility] [address] [place] [address] * PHOSPHORUS (11/16/2018 1:45 AM FISHING GUIDE) Phosphorus 2.6Comment: NOTE NEW REFERENCE 2.0 - 4.5 MG/DL [facility] RANGES Specimen Blood Performing Organization Address City/[facility] Phone Number [facility] [address] [place] [address] * MAGNESIUM (11/16/2018 1:45 AM FISHING GUIDE) Magnesium 2.0 1.6 - 2.6 mg/dL [facility] Specimen Blood Performing Organization Address [facility] Phone Number [facility] [address] [phone] * TSH WITH FREE T4 REFLEX (11/16/2018 1:45 AM FISHING GUIDE) TSH 1.770 0.35 - 5.00 MCU/ML [facility] Specimen Blood Performing Organization Address [facility] Phone Number MAIN LAB [address] [phone] * COMPREHENSIVE METABOLIC PANEL (11/16/2018 1:45 AM FISHING GUIDE) Sodium 137 137 - 147 MMOL/L [facility] Potassium 3.8 3.5 - 5.1 MMOL/L [facility] Chloride 110 98 - 110 MMOL/L [facility] Glucose 169 (H) 70 - 100 MG/DL [facility] Blood Urea Nitrogen 8 7 - 25 MG/DL [facility] Creatinine 0.68 0.4 - 1.00 MG/DL [facility] Calcium 7.9 (L) 8.5 - 10.6 MG/DL [facility] Total Protein 4.6 (L) 6.0 - 8.0 G/DL [facility] Total Bilirubin 0.2 (L) 0.3 - 1.2 MG/DL [facility] Albumin 2.8 (L) 3.5 - 5.0 G/DL [facility] Alk Phosphatase 110 25 - 110 U/L [facility] AST (SGOT) 14 7 - 40 U/L [facility] CO2 23 21 - 30 MMOL/L [facility] ALT (SGPT) 10 7 - 56 U/L [facility] Anion Gap 4 3 - 12 [facility] eGFR [...] City/State/Zipcode Phone Number [facility] [address] [place] [address] * CBC AND DIFF (11/16/2018 1:45 AM FISHING GUIDE) White Blood Cells 14.2 (H) 4.5 - 11.0 K/UL [facility] RBC 3.29 (L) 4.0 - 5.0 M/UL [facility] Hemoglobin 10.1 (L) 12.0 - 15.0 GM/DL [facility] Hematocrit 30.1 (L) 36 - 45 % [facility] MCV 91.4 80 - 100 FL [facility] MCH 30.8 26 - 34 PG [facility] MCHC 33.6 32.0 - 36.0 G/DL [facility] RDW 15.6 (H) 11 - 15 % [facility] Platelet Count 199 150 - 400 K/UL [facility] MPV 9.0 7 - 11 FL [facility] Neutrophils 33 (L) 41 - 77 % [facility] Lymphocytes 52 (H) 24 - 44 % [facility] Monocytes 3 (L) 4 - 12 % [facility] Eosinophils 11 (H) 0 - 5 % [facility] Basophils 1 0 - 2 % [facility] Absolute Neutrophil Count 4.70 1.8 - 7.0 K/UL [facility] Absolute Lymph Count 7.40 (H) 1.0 - 4.8 K/UL [facility] Absolute Monocyte Count 0.40 0 - 0.80 K/UL [facility] Absolute Eosinophil Count 1.60 (H) 0 - 0.45 K/UL [facility] Absolute Basophil Count 0.10 0 - 0.20 K/UL [facility] Specimen Blood Performing Organization Address City/State/Zipcode Phone Number MAIN LAB [address] [place] [address] * POC GLUCOSE (11/16/2018 1:30 AM FISHING GUIDE) Glucose, POC 157 (H) 70 - 100 MG/DL [facility] Performing Organization Address City/[facility]/Zipcode Phone Number MAIN LAB [address] [place] [address] * POC GLUCOSE (11/16/2018 12:27 AM FISHING GUIDE) Glucose, POC 177 (H) 70 - 100 MG/DL MAIN LAB Performing Organization Address City/[facility]/Zipcode Phone Number MAIN LAB [address] [place] [address] * POC GLUCOSE (11/15/2018 11:20 PM FISHING GUIDE) Glucose, POC 192 (H) 70 - 100 MG/DL MAIN LAB Performing Organization Address City/[facility]/Zipcode Phone Number MAIN LAB [address] [place] [address] * POC GLUCOSE (11/15/2018 10:03 PM FISHING GUIDE) Glucose, POC 190 (H) 70 - 100 MG/DL MAIN LAB Performing Organization Address City/[facility] Phone Number [facility] [address] [place] [address] * POC GLUCOSE (11/15/2018 8:51 PM FISHING GUIDE) Glucose, POC 189 (H) 70 - 100 MG/DL [facility] Performing Organization Address City/[facility] Phone Number MA[facility] [address] [place] [address] * PHOSPHORUS (11/15/2018 8:00 PM FISHING GUIDE) Phosphorus 2.5Comment: NOTE NEW REFERENCE 2.0 - 4.5 MG/DL MAIN LAB RANGES Specimen Blood Performing Organization Address City/[facility]/Zipcode Phone Number MAIN LAB [address] [place] [address] * MAGNESIUM (11/15/2018 8:00 PM FISHING GUIDE) Magnesium 2.1 1.6 - 2.6 mg/dL MAIN LAB Specimen Blood Performing Organization Address City/[facility]/Zipcode Phone Number MAIN LAB [address] [place] [address] * BASIC METABOLIC PANEL (11/15/2018 8:00 PM FISHING GUIDE) Sodium 135 (L) 137 - 147 MMOL/L MAIN LAB Potassium 3.3 (L) 3.5 - 5.1 MMOL/L MAIN LAB Chloride 103 98 - 110 MMOL/L MAIN LAB CO2 19 (L) 21 - 30 MMOL/L MAIN LAB Anion Gap 13 (H) 3 - 12 MAIN LAB Glucose 263 (H) 70 - 100 MG/DL MAIN LAB Blood Urea Nitrogen 10 7 - 25 MG/DL MAIN LAB Creatinine 0.71 0.4 - 1.00 MG/DL MAIN LAB Calcium 8.2 (L) 8.5 - 10.6 MG/DL MAIN LAB eGFR Non >60 >60 mL/min [...] Address City/State/Zipcode Phone Number MAIN LAB [address] [place] [address] * CULTURE-BLOOD W/SENSITIVITY (11/15/2018 8:00 PM FISHING GUIDE) Battery Name BLOOD CULTURE MAIN LAB Specimen Description BLOOD MAIN LAB RIGHT WRIST PEDS FAN BOTTLE Special Requests Culture performed on specimen MAIN LAB with less than the recommended volume of 10 ml/bottle. Decreased volume will affect sensitivity of culture. Culture NO GROWTH 5 DAYS MAIN LAB Report Status FINAL MAIN LAB 11/21/2018 Specimen Blood Performing Organization Address City/State/Zipcode Phone Number MAIN LAB [address] [place] [address] * POC LACTATE (11/15/2018 7:58 PM FISHING GUIDE) LACTIC ACID POC 1.4 0.5 - 2.0 MMOL/L MAIN LAB Performing Organization Address City/State/Zipcode Phone Number MAIN LAB [address] [place] [address] * POC GLUCOSE (11/15/2018 7:43 PM FISHING GUIDE) Glucose, POC 231 (H) 70 - 100 MG/DL [facility] Performing Organization Address [facility] Phone Number [facility] [address] [phone] * POC GLUCOSE (11/15/2018 7:05 PM FISHING GUIDE) Glucose, POC 247 (H) 70 - 100 MG/DL [facility] Performing Organization Address [facility] Phone Number [facility] [address] [place] [address] * POC GLUCOSE (11/15/2018 6:26 PM FISHING GUIDE) Glucose, POC 279 (H) 70 - 100 MG/DL [facility] Performing Organization Address City/[facility] Phone Number [facility] [address] [place] [address] * POC GLUCOSE (11/15/2018 5:53 PM FISHING GUIDE) Glucose, POC 318 (H) 70 - 100 MG/DL [facility] Performing Organization Address [facility] Phone Number [facility] [address] [place] [address] * POC GLUCOSE (11/15/2018 4:57 PM FISHING GUIDE) Glucose, POC 357 (H) 70 - 100 MG/DL [facility] Performing Organization Address [facility] Phone Number MAIN LAB [address] [place] [address] * CT HEAD WO CONTRAST (11/15/2018 4:42 PM FISHING GUIDE) Impressions Performed At No acute intracranial abnormality. [facility] RAD RESULTS Finalized by ISRAEL MENDIETA M.D. on 11/15/2018 4:54 PM. Dictated by ISRAEL MENDIETA M.D. on 11/15/2018 4:53 PM. Narrative [...] Interface, Radiant Results - 11/15/2018 4:[address] HEAD WITHOUT CONTRAST HISTORY: 58 years [...] IMPRESSION No acute intracranial abnormality. Finalized by ISRAEL MENDIETA M.D. on 11/15/2018 4:54 PM. Dictated by ISRAEL MENDIETA M.D. on 11/15/2018 4:53 PM. Performing Organization Address City/[facility]/Zipcode Phone Number RAD RESULTS * URINALYSIS, MICROSCOPIC (11/15/2018 3:28 PM FISHING GUIDE) WBCs,UA 0-2 0 - 2 /HPF [facility] RBCs,UA 0-2 0 - 3 /HPF [facility] MucousUA TRACE [facility] Bacteria,UA FEW (A) NEG-NEG [facility] Squamous Epithelial Cells 0-2 0 - 5 [facility]IN [facility] Specimen Urine - Urine Performing Organization Address City/[facility] Phone Number [facility] [address] [place] [address] * URINALYSIS DIPSTICK (11/15/2018 3:28 PM FISHING GUIDE) Color,UA YELLOW [facility] Turbidity,UA CLEAR CLEAR-CLEAR [facility] Specific [place]-Urine 1.028 1.003 - 1.035 [facility]IN [facility] [...] Specimen Urine - Urine Performing Organization Address [facility] Phone Number MAIN LAB [address] [place] [address] * OSMOLALITY (11/15/2018 3:27 PM FISHING GUIDE) Osmolality 297 280 - 307 MOSMOL/KG MAIN LAB Specimen Blood Performing Organization Address [facility] Phone Number MAIN LAB [address] [place] [address] * BETA HYDROXYBUTYRATE (KETONES) (11/15/2018 3:27 PM FISHING GUIDE) Beta Hydroxybutyrate 6.5 (H) <0.3 MMOL/L MAIN LAB Comment: Beta hydroxybutyrate (BOHB) is the most abundant ketone (78%), followed by acetoacetate (20%) and acetone (2%).Measurement BOHB is recommended to assess ketones in DKA. Expected BOHB Results for DKA: Initial presentation high/increasing During treatment decreasing Resolved decreasing/normal Specimen Blood Performing Organization Address [facility] Phone Number MAIN LAB [address] [place] [address] * POC LACTATE (11/15/2018 3:22 PM FISHING GUIDE) LACTIC ACID POC 2.4 (H) 0.5 - 2.0 MMOL/L MAIN LAB Performing Organization Address [facility] Phone Number MAIN LAB [address] [place] [address] * BLOOD GASES, PERIPHERAL VENOUS (11/15/2018 3:19 PM FISHING GUIDE) pH-Venous 7.33 7.30 - 7.40 [facility] PCO2-Venous 35 (L) 36 - 50 MMHG [facility] PO2-Venous 47 33 - 48 MMHG [facility] Base Deficit-Venous 6.7 MMOL/L MAIN LAB O2 Sat-Venous 77.6 (H) 55 - 71 % MAIN LAB [id number] 18.7 MMOL/L [facility] Specimen Blood, venous - Blood Performing Organization Address [facility] Phone Number MAIN LAB [address] [place] [address] * POC GLUCOSE (11/15/2018 3:17 PM FISHING GUIDE) Glucose, POC 366 (H) 70 - 100 MG/DL [facility] Performing Organization Address City/[facility] Phone Number [facility] [address] [place] [address] * TROPONIN-I (11/15/2018 3:16 PM FISHING GUIDE) Troponin-I <0.01 0.0 - 0.05 NG/ML [facility] Performing Organization Address [facility] Phone Number [facility] [address] [place] [address] * CULTURE-BLOOD W/SENSITIVITY (11/15/2018 3:16 PM FISHING GUIDE) Battery Name BLOOD CULTURE MAIN LAB Specimen Description BLOOD [facility] L PORT Special Requests NONE MAIN LAB Culture NO GROWTH 5 DAYS MAIN LAB Report Status FINAL MAIN LAB 11/21/2018 Specimen Blood Performing Organization Address [facility] Phone Number MAIN LAB [address] [place] [address] * MAGNESIUM (11/15/2018 3:16 PM FISHING GUIDE) Magnesium 2.0 1.6 - 2.6 mg/dL MAIN LAB Specimen Blood Performing Organization Address [facility] Phone Number [facility] [address] [place] [address] * TSH WITH FREE T4 REFLEX (11/15/2018 3:16 PM FISHING GUIDE) TSH 0.690 0.35 - 5.00 MCU/ML MAIN LAB Specimen Blood Performing Organization Address [facility] Phone Number MA[facility] LAB [address] [place] [address] * LIPASE (11/15/2018 3:16 PM FISHING GUIDE) Lipase 9 (L) 11 - 82 U/L MAIN LAB Specimen Blood Performing Organization Address [facility] Phone Number MA[facility] LAB [address] [place] [address] * COMPREHENSIVE METABOLIC PANEL (11/15/2018 3:16 PM FISHING GUIDE) Sodium 131 (L) 137 - 147 MMOL/L [facility] Potassium 3.8 3.5 - 5.1 MMOL/L [facility] Chloride 93 (L) 98 - 110 MMOL/L [facility] Glucose 421 (H) 70 - 100 MG/DL [facility] Blood Urea Nitrogen 11 7 - 25 MG/DL [facility] Creatinine 0.79 0.4 - 1.00 MG/DL [facility] Calcium 9.3 8.5 - 10.6 MG/DL [facility] Total Protein 6.6 6.0 - 8.0 G/DL [facility] Total Bilirubin 0.4 0.3 - 1.2 MG/DL [facility] Albumin 3.9 3.5 - 5.0 G/DL [facility] Alk Phosphatase 150 (H) 25 - 110 U/L [facility] AST (SGOT) 18 7 - 40 U/L [facility] CO2 18 (L) 21 - 30 MMOL/L [facility] ALT (SGPT) 14 7 - 56 U/L [facility] Anion Gap 20 (H) 3 - 12 [facility] [...] City/State/Zipcode Phone Number [facility] [address] [place] [address] * CBC AND DIFF (11/15/2018 3:16 PM FISHING GUIDE) White Blood Cells 13.2 (H) 4.5 - 11.0 K/UL [facility] RBC 4.34 4.0 - 5.0 M/UL [facility] Hemoglobin 13.2 12.0 - 15.0 GM/DL [facility] Hematocrit 39.6 36 - 45 % [facility] MCV 91.4 80 - 100 FL [facility] MCH 30.4 26 - 34 PG [facility] MCHC 33.2 32.0 - 36.0 G/DL [facility] RDW 15.8 (H) 11 - 15 % [facility] Platelet Count 281 150 - 400 K/UL [facility] MPV 8.9 7 - 11 FL [facility] Neutrophils 64 41 - 77 % [facility] Lymphocytes 24 24 - 44 % [facility] Monocytes 5 4 - 12 % [facility] Eosinophils 7 (H) 0 - 5 % [facility] Basophils 0 0 - 2 % [facility] Absolute Neutrophil Count 8.30 (H) 1.8 - 7.0 K/UL [facility] Absolute Lymph Count 3.20 1.0 - 4.8 K/UL [facility] Absolute Monocyte Count 0.70 0 - 0.80 K/UL [facility] Absolute Eosinophil Count 1.00 (H) 0 - 0.45 K/UL [facility] Absolute Basophil Count 0.10 0 - 0.20 K/UL [facility] Specimen Blood Narrative Performed At Performing Organization Address City/State/Zipcode Phone Number [facility] [address] [place] [address] * ECG-SCAN (11/15/2018 12:00 AM FISHING GUIDE) Narrative Performed At Ordered by an unspecified provider. in this encounter Visit Diagnoses Diagnosis Syncope and collapse - Primary Non-intractable vomiting with nausea, unspecified vomiting type Diabetic ketoacidosis without coma associated with type 1 diabetes mellitus ( HCC) DKA (diabetic ketoacidoses) (HCC) Type II or unspecified type diabetes mellitus with ketoacidosis, not stated as uncontrolled Migraine headache Migraine, unspecified, without mention of intractable migraine without mention of status migrainosus Acquired hypothyroidism Unspecified hypothyroidism CLL (chronic lymphocytic leukemia) (HCC) Chronic lymphoid leukemia, without mention of having achieved remission Anxiety and depression Dysthymic disorder Chronic abdominal pain Abdominal pain, unspecified site Intractable cyclical vomiting with nausea Type 1 diabetes, uncontrolled, 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, uncontrolled Orthostatic hypotension Migraine with aura and with status migrainosus, not intractable Migraine with aura, with intractable migraine, so stated, with status migrainosus in this encounter Admitting Diagnoses Diagnosis DKA (diabetic ketoacidoses) (HCC) Type II or unspecified type diabetes mellitus with ketoacidosis, not stated as uncontrolled Migraine headache Migraine, unspecified, without mention of intractable migraine without mention of status migrainosus in this encounter Administered Medications Action Date Dose Rate Site Medication Order MAR Action 11/20/2018 1:09 PM FISHING GUIDE 650 mg acetaminophen (TYLENOL) tablet 650 mg Given 650 mg, Oral, EVERY 6 HOURS, First dose on 11/16/18 at 0000, Until Discontinued, TOTAL ACETAMINOPHEN DOSE NOT TO EXCEED 4GM DAILY, 650 mg Given 11/20/2018 5:52 AM FISHING GUIDE 650 mg Given 11/19/2018 11:53 PM FISHING GUIDE 11/17/2018 6:26 PM FISHING GUIDE 30 mL acetaminophen/lidocaine/antacid DS(#) Given (GI COCKTAIL) 1:1:3 suspension 30 mL 30 mL, Oral, FOUR TIMES DAILY PRN, Starting Sun11/15/18 at 2046, Until Sun11/20/18 at 1611, Nausea/Vomiting PO, 30mL (1:1:3)=192mg/6mL acetamin-6mL 2% vis lidocaine-18mL Antacid DS, 30 mL Given 11/17/2018 4:12 AM FISHING GUIDE 30 mL Given 11/16/2018 2:08 PM FISHING GUIDE 11/20/2018 11:20 AM FISHING GUIDE 1 mg ALPRAZolam (XANAX) tablet 1 mg Given 1 mg, Oral, TWICE DAILY PRN, Starting Sun11/15/18 at 2046, Until Sun11/20/18 at 1611, Anxiety PO 1 mg Given 11/19/2018 8:40 AM FISHING GUIDE 1 mg Given 11/18/2018 8:07 PM FISHING GUIDE 11/17/2018 5:56 AM FISHING GUIDE 2 mg alteplase (CATHFLO ACTIVASE) injection 2 Given mg 2 mg, Injection, ONCE, 1 dose, 11/17/18 at 0545 alteplase (CATHFLO ACTIVASE) injection 2 mg 2 mg, Intra-catheter, TWICE DAILY PRN, Starting 11/17/18 at 0540, Until Sun11/20/18 at 1611, Clotted vascular access 11/18/2018 8:31 AM FISHING GUIDE 325 mg aspirin tablet 325 mg Given 325 mg, Oral, DAILY, First dose on 11/16/18 at 0900, Until Discontinued 325 mg Given 11/17/2018 8:31 AM FISHING GUIDE 325 mg Given 11/16/2018 8:07 AM FISHING GUIDE 11/20/2018 8:44 AM FISHING GUIDE 40 mg atorvastatin (LIPITOR) tablet 40 mg Given 40 mg, Oral, DAILY, First dose on 11/16/18 at 0900, Until Discontinued 40 mg Given 11/19/2018 8:31 AM FISHING GUIDE 40 mg Given 11/18/2018 8:33 AM FISHING GUIDE 11/20/2018 8:44 AM FISHING GUIDE 200 mg carBAMazepine (TEGRETOL) tablet 200 mg Given 200 mg, Oral, TWICE DAILY, First dose on Sun11/19/18 at 0900, Until Discontinued 200 mg Given 11/19/2018 9:28 PM FISHING GUIDE 200 mg Given 11/19/2018 8:31 AM FISHING GUIDE 11/18/2018 8:31 AM FISHING GUIDE 400 mg carBAMazepine (TEGRETOL) tablet 400 mg Given 400 mg, Oral, DAILY, First dose on Sun11/15/18 at 2100, Until Discontinued 400 mg Given 11/17/2018 8:31 AM FISHING GUIDE 400 mg Given 11/16/2018 8:55 AM FISHING GUIDE 11/20/2018 8:43 AM FISHING GUIDE 10 mg cetirizine (ZYRTEC) tablet 10 mg Given 10 mg, Oral, EVERY MORNING, First dose on Sun11/16/18 at 0800, Until Discontinued 10 mg Given 11/19/2018 8:31 AM FISHING GUIDE 10 mg Given 11/18/2018 8:33 AM FISHING GUIDE 11/17/2018 12:17 PM FISHING GUIDE 75 mL/hr dextrose 5 % & 0.45% NaCl with KCl 20 Given - New mEq/L infusion Bag 1,000 mL, Intravenous, at 75 mL/hr, CONTINUOUS, Starting Sun11/15/18 at 2215, Until Sun11/17/18 at 1359 75 mL/hr Given - New Bag 11/17/2018 12:05 AM FISHING GUIDE 75 mL/hr Given - New Bag 11/16/2018 12:00 PM FISHING GUIDE 11/17/2018 5:44 PM FISHING GUIDE 25 mL DEXTROSE 50 % IN WATER (D50W) IV SYRG Given (Cabinet Override) NOW, 1 dose, [place] 11/17/18 at 1745, Created by cabinet override NOTE: This is a HIGH ALERT Medication., Created by cabinet override, 11/20/2018 1:09 PM FISHING GUIDE 10 mg dicyclomine (BENTYL) capsule 10 mg Given 10 mg, Oral, BEFORE MEALS AND AT BEDTIME, First dose on Sun11/19/18 at 1230, Until Discontinued 10 mg Given 11/20/2018 5:52 AM FISHING GUIDE 10 mg Given 11/19/2018 9:28 PM FISHING GUIDE 11/16/2018 9:52 AM FISHING GUIDE 25 mg diphenhydrAMINE (BENADRYL) injection 25 Given mg 25 mg, Intravenous, EVERY 6 HOURS PRN, Starting Sun11/15/18 at 1722, Until Sun11/20/18 at 1611, Other..., As a part of headache cocktail with Mag and Toradol 25 mg Given 11/15/2018 7:32 PM FISHING GUIDE 11/20/2018 8:44 AM FISHING GUIDE [address] (CYMBALTA) capsule 30 mg Given 30 mg, Oral, TWICE DAILY, First dose on Sun11/19/18 at 0900, Until Discontinued 30 mg Given 11/19/2018 9:28 PM FISHING GUIDE 30 mg Given 11/19/2018 8:31 AM FISHING GUIDE 11/18/2018 8:32 AM FISHING GUIDE [address] (CYMBALTA) capsule 90 mg Given 90 mg, Oral, DAILY, First dose on Sun11/15/18 at 2100, Until Discontinued 90 mg Given 11/17/2018 8:32 AM FISHING GUIDE 90 mg Given 11/16/2018 8:07 AM FISHING GUIDE 11/19/2018 9:28 PM FISHING GUIDE 40 mg Arm, Left enoxaparin (LOVENOX) syringe 40 mg Given 40 mg, Subcutaneous, DAILY, First dose on Sun11/15/18 at 2100, Until Discontinued, For patients undergoing surgery: Consult physician in advance -- enoxaparin is an anticoagulant and may need to be held for 12hr prior to surgery or invasive procedures. NOTE: This is a HIGH ALERT Medication., 40 mg Abdomen:LUQ Given 11/18/2018 8:07 PM FISHING GUIDE 40 mg Abdomen:LLQ Given 11/17/2018 9:16 PM FISHING GUIDE 11/17/2018 12:12 PM FISHING GUIDE 25 mcg fentaNYL citrate PF (SUBLIMAZE) Given injection 25-50 mcg 25-50 mcg, Intravenous, EVERY 2 HOURS PRN, Starting Sun11/15/18 at 1729, Until Sun11/17/18 at 1400, Pain Injectable 25 mcg Given 11/17/2018 4:12 AM FISHING GUIDE 50 mcg Given 11/15/2018 11:40 PM FISHING GUIDE 11/20/2018 8:44 AM FISHING GUIDE 0.1 mg fludrocortisone (FLORINEF) tablet 0.1 mg Given 0.1 mg, Oral, TWICE DAILY, First dose on Sun11/18/18 at 2100, Until Discontinued 0.1 mg Given 11/19/2018 9:28 PM FISHING GUIDE 0.1 mg Given 11/19/2018 8:30 AM FISHING GUIDE 11/18/2018 8:42 AM FISHING GUIDE 0.3 mg fludrocortisone (FLORINEF) tablet 0.3 mg Given 0.3 mg, Oral, DAILY, First dose on Sun11/15/18 at 2100, Until Discontinued 0.3 mg Given 11/17/2018 8:32 AM FISHING GUIDE 0.3 mg Given 11/16/2018 8:07 AM FISHING GUIDE 11/18/2018 8:42 AM FISHING GUIDE 1 spray fluticasone (FLONASE) nasal spray 1 Given spray 1 spray, Each Nostril, DAILY, First dose on Sun11/16/18 at 0900, Until Discontinued 11/20/2018 1:44 PM FISHING GUIDE 500 Units HEPARIN, PORCINE (PF) 100 UNIT/ML IV Given SYRG (Cabinet Override) NOW, 1 dose, Sun11/20/18 at 1115, Created by cabinet override NOTE: This is a HIGH ALERT Medication., Created by cabinet override, 11/18/2018 8:33 AM FISHING GUIDE 200 mg hydroxychloroquine (PLAQUENIL) tablet Given 200 mg 200 mg, Oral, DAILY, First dose on Sun11/16/18 at 0900, Until Discontinued 200 mg Given 11/17/2018 8:32 AM FISHING GUIDE 200 mg Given 11/16/2018 8:07 AM FISHING GUIDE 11/20/2018 1:13 PM FISHING GUIDE 2 Units Abdominal Tissue insulin aspart U-100 (NOVOLOG FLEXPEN) Given injection PEN 0-7 Units 0-7 Units, Subcutaneous, BEFORE MEALS AND AT BEDTIME, First dose on 11/16/18 at 1130, Until Discontinued, -POC glucose 140-180mg/dL at , , administer 1 unit insulin, at 21, 03* administer 0 units. -POC glucose 181-220mg/dL at , , administer 2 units insulin, at 21, 03* administer 1 unit. -POC glucose 221-260mg/dL at , , administer 3 units insulin, at 21, 03* administer 2 units. -POC glucose 261-300mg/dL at , , administer 4 units insulin, at 21, 03* administer 3 units. -POC glucose 301-350mg/dL at , , administer 5 units insulin, at 21, 03* administer 4 units. -POC glucose 351-400mg/dL at , , administer 6 units insulin, at 21, 03* administer 5 units. -POC glucose >400mg/dL at 07, 11, 17 administer 7 units insulin, at 21, 03* administer 6 units. *only if ordered 5x's daily For POCT glucose >350mg/dL give correction bolus and recheck POCT glucose in 2 hours. If POCT glucose at 2 hours >300mg/dL call physician for further orders. For patients who are not eating meals, continue to administer the appropriate correction factor. NOTE: This is a HIGH ALERT Medication., Dispense pens manually with initial order and then upon request. DO NOT uncheck "Do not dispense", 2 Units Abdominal Tissue Given 11/20/2018 9:54 AM FISHING GUIDE 2 Units Arm, Left Given 11/19/2018 5:56 PM FISHING GUIDE 11/18/2018 1:32 PM FISHING GUIDE 2 Units Arm, Left insulin aspart U-100 (NOVOLOG FLEXPEN) Given injection PEN 2 Units 2 Units, Subcutaneous, THREE TIMES DAILY AFTER MEALS, First dose on 11/18/18 at 1300, Until Discontinued, - Post Meal Dosing: give scheduled Aspart (Novolog) insulin at the completion of meal based on % eaten. Adjust dose based on % of meal eaten. - >50% of meal eaten, give scheduled dose - 10-50% of meal eaten, give 1/2 of schedule dose (round dose to the nearest unit) - <10% of meal eaten, hold scheduled dose. NOTE: Rapid acting insulins should be given with food/meal. Use caution when patient is NPO. NOTE: This is a HIGH ALERT Medication., Dispense pens manually with initial order and then upon request. DO NOT uncheck "Do not dispense", 11/17/2018 1:44 PM FISHING GUIDE 4 Units Arm, Right insulin aspart U-100 (NOVOLOG FLEXPEN) Given injection PEN 4 Units 4 Units, Subcutaneous, THREE TIMES DAILY AFTER MEALS, First dose on Sun11/16/18 at 1300, Until Discontinued, - Post Meal Dosing: give scheduled Aspart (Novolog) insulin at the completion of meal based on % eaten. Adjust dose based on % of meal eaten. - >50% of meal eaten, give scheduled dose - 10-50% of meal eaten, give 1/2 of schedule dose (round dose to the nearest unit) - <10% of meal eaten, hold scheduled dose. NOTE: Rapid acting insulins should be given with food/meal. Use caution when patient is NPO. NOTE: This is a HIGH ALERT Medication., Dispense pens manually with initial order and then upon request. DO NOT uncheck "Do not dispense", 11/20/2018 1:44 PM FISHING GUIDE 4 Units Abdominal Tissue insulin aspart U-100 (NOVOLOG FLEXPEN) Given injection PEN 4 Units 4 Units, Subcutaneous, THREE TIMES DAILY AFTER MEALS, First dose on Sun11/19/18 at 1300, Until Discontinued, - Post Meal Dosing: give scheduled Aspart (Novolog) insulin at the completion of meal based on % eaten. Adjust dose based on % of meal eaten. - >50% of meal eaten, give scheduled dose - 10-50% of meal eaten, give 1/2 of schedule dose (round dose to the nearest unit) - <10% of meal eaten, hold scheduled dose. NOTE: Rapid acting insulins should be given with food/meal. Use caution when patient is NPO. NOTE: This is a HIGH ALERT Medication., Dispense pens manually with initial order and then upon request. DO NOT uncheck "Do not dispense", 2 Units Abdominal Tissue Given 11/20/2018 10:36 AM FISHING GUIDE 2 Units Abdominal Tissue Given 11/19/2018 6:45 PM FISHING GUIDE 11/20/2018 11:22 AM FISHING GUIDE 14 Units Abdominal Tissue insulin glargine (LANTUS SOLOSTAR, Given BASAGLAR) injection PEN 14 Units 14 Units, Subcutaneous, DAILY, First dose on Sun11/18/18 at 1200, Until Discontinued, Continue if NPO. DO NOT mix with other insulins -- Do not mix with other insulins -- NOTE: This is a HIGH ALERT Medication., Dispense pens manually with initial order and then upon request. DO NOT uncheck "Do not dispense", 14 Units Arm, Left Given 11/19/2018 12:57 PM FISHING GUIDE 14 Units Arm, Left Given 11/18/2018 12:54 PM FISHING GUIDE 11/17/2018 12:14 PM FISHING GUIDE 18 Units Arm, Right insulin glargine (LANTUS SOLOSTAR, Given BASAGLAR) injection PEN 18 Units 18 Units, Subcutaneous, DAILY, First dose on Sun11/16/18 at 1200, Until Discontinued, Continue if NPO. DO NOT mix with other insulins -- Do not mix with other insulins -- NOTE: This is a HIGH ALERT Medication., Dispense pens manually with initial order and then upon request. DO NOT uncheck "Do not dispense", 18 Units Arm, Right Given 11/16/2018 11:58 AM FISHING GUIDE 11/15/2018 4:58 PM FISHING GUIDE 6 Units/hr 6 mL/hr insulin regular (NOVOLIN R) 100 Units in Given - New sodium chloride 0.9% (NS) 100 mL IV drip Bag (std conc) 6 Units/hr (6 mL/hr) 100 mL, at 6 mL/hr, Intravenous, TITRATE DIRECTED , Starting Sun11/15/18 at 1645, Until Sun11/15/18 at 1721, NOTE: This is a HIGH ALERT Medication., 11/16/2018 12:56 PM FISHING GUIDE 2.3 Units/hr 2.3 mL/hr insulin regular (NOVOLIN R) 100 Units in Dose/Rate sodium chloride 0.9% (NS) 100 mL IV drip Verify (std conc) 1-32 Units/hr (1-32 mL/hr) 100 mL, at 1-32 mL/hr, Intravenous, TITRATE DIRECTED , Starting Sun11/15/18 at 1730, Until Sun11/17/18 at 1359, (Administration Instructions were omitted from this summary because they were too long), 2.8 Units/hr 2.8 mL/hr Dose/Rate Verify 11/16/2018 11:44 AM FISHING GUIDE 2.8 Units/hr 2.8 mL/hr Dose/Rate Change 11/16/2018 10:44 AM FISHING GUIDE 11/18/2018 12:41 AM FISHING GUIDE 15 mg ketorolac (TORADOL) injection 15 mg Given 15 mg, Intravenous, EVERY 6 HOURS PRN, Starting Sun11/15/18 at 1722, Until Sun11/18/18 at 1105, Other..., As a part of headache cocktail, Please note: this medication will be automatically discontinued 5 days after ordered per hospital policy. Please obtain a new order if the medication needs to be continued., 15 mg Given 11/16/2018 8:54 AM FISHING GUIDE 15 mg Given 11/15/2018 7:27 PM FISHING GUIDE 11/15/2018 3:29 PM FISHING GUIDE 1,000 mL lactated ringers infusion Given - New 1,000 mL, 1,000 mL, Intravenous, BOLUS, Bag 1 dose, Sun11/15/18 at 1515 11/20/2018 5:52 AM FISHING GUIDE 175 mcg levothyroxine (SYNTHROID) tablet 175 mcg Given 175 mcg, Oral, DAILY 30MIN BEFORE BREAKFAST, First dose on Sun11/16/18 at 0630, Until Discontinued, Give 1 hour before a meal. If patient is receiving tube feedings, hold tube feed 1hr before and 1hr after dose., 175 mcg Given 11/19/2018 5:46 AM FISHING GUIDE 175 mcg Given 11/18/2018 7:34 AM FISHING GUIDE 11/18/2018 8:42 AM FISHING GUIDE 2 mg loperamide (IMODIUM A-D) capsule 2 mg Given 2 mg, Oral, FOUR TIMES DAILY PRN, Starting Sun11/15/18 at 2046, Until Sun11/20/18 at 1611, Diarrhea, GIVE WITH EACH LOOSE STOOL; NOT TO EXCEED 16MG/24HRS, 11/15/2018 4:14 PM FISHING GUIDE 1 mg LORazepam (ATIVAN) injection 1 mg Given 1 mg, Intravenous, ONCE, 1 dose, Sun11/15/18 at 1615, PROTECT FROM LIGHT, 11/16/2018 8:54 AM FISHING GUIDE 1 g 100 mL/hr magnesium sulfate 1 g/D5W 100 mL IVPB Given - New 1 g, Intravenous, 100 mL, Administer Bag over 1 Hours, EVERY 6 HOURS PRN, 10 doses, Starting Sun11/15/18 at 1722, Until Sun11/17/18 at 2359, Other..., As a part of headache cocktail, Each 1gm delivers 8.1 mEq Magnsium., 1 g 100 mL/hr Given - New Bag 11/15/2018 7:36 PM FISHING GUIDE 11/19/2018 9:28 PM FISHING GUIDE 10 mg montelukast (SINGULAIR) tablet 10 mg Given 10 mg, Oral, AT BEDTIME DAILY, First dose on Sun11/15/18 at 2100, Until Discontinued 10 mg Given 11/18/2018 8:07 PM FISHING GUIDE 10 mg Given 11/17/2018 9:16 PM FISHING GUIDE 11/20/2018 9:58 AM FISHING GUIDE 5 mg morphine (MSIR) oral solution 5-10 mg Given 5-10 mg, Oral, EVERY 8 HOURS PRN, Starting Sun11/19/18 at 1137, Until Sun11/20/18 at 1611, Pain PO 10 mg Given 11/19/2018 9:29 PM FISHING GUIDE 11/18/2018 8:51 AM FISHING GUIDE 10 mg morphine (MSIR) oral solution 7.5-15 mg Given 7.5-15 mg, Oral, EVERY 4 HOURS PRN, Starting Sun11/15/18 at 2046, Until Sun11/18/18 at 1106, Pain PO 10 mg Given 11/17/2018 9:16 PM FISHING GUIDE 10 mg Given 11/17/2018 4:29 PM FISHING GUIDE 11/19/2018 8:49 AM FISHING GUIDE 5 mg morphine (MSIR) oral solution 7.5-15 mg Given 7.5-15 mg, Oral, EVERY 8 HOURS PRN, Starting Sun11/18/18 at 1115, Until Sun11/19/18 at 1137, Pain PO 10 mg Given 11/19/2018 3:57 AM FISHING GUIDE 10 mg Given 11/18/2018 5:45 PM FISHING GUIDE 11/19/2018 4:11 AM FISHING GUIDE 4 mg ondansetron (ZOFRAN) injection 4 mg Given 4 mg, Intravenous, EVERY 6 HOURS PRN, Starting Sun11/15/18 at 2045, Until Sun11/20/18 at 1611, Nausea/Vomiting Injectable 4 mg Given 11/17/2018 12:00 AM FISHING GUIDE 4 mg Given 11/16/2018 5:48 PM FISHING GUIDE 11/20/2018 8:44 AM FISHING GUIDE 5 mg oxybutynin XL (DITROPAN XL) tablet 5 mg Given 5 mg, Oral, DAILY, First dose on Sun11/15/18 at 2100, Until Discontinued 5 mg Given 11/19/2018 8:31 AM FISHING GUIDE 5 mg Given 11/18/2018 8:33 AM FISHING GUIDE 11/15/2018 7:24 PM FISHING GUIDE 40 mg pantoprazole (PROTONIX) injection 40 mg Given 40 mg, Intravenous, TWICE DAILY, First dose on Sun11/15/18 at 1745, Until Discontinued 11/20/2018 8:44 AM FISHING GUIDE [address] (PROTONIX) tablet 40 mg Given 40 mg, Oral, DAILY, First dose on Sun11/15/18 at 2100, Until Discontinued, Do not crush or chew tablet., 40 mg Given 11/19/2018 8:31 AM FISHING GUIDE 40 mg Given 11/18/2018 8:33 AM FISHING GUIDE 11/16/2018 2:36 AM FISHING GUIDE 10 mEq 50 mL/hr potassium chloride in water IVPB 10 mEq Given - New 10 mEq, Intravenous, 50 mL, Administer Bag over 60 Minutes, EVERY 1 HOUR FOR 4 DOSES, 4 doses, First dose on Sun11/15/18 at 2300, Last dose on Sun11/16/18 at 0200, NOTE: This is a HIGH ALERT Medication., 10 mEq 50 mL/hr Given - New Bag 11/16/2018 12:56 AM FISHING GUIDE 10 mEq 50 mL/hr Given - New Bag 11/16/2018 12:08 AM FISHING GUIDE 11/19/2018 8:30 AM FISHING GUIDE 60 mEq potassium chloride SR (K-DUR) tablet 60 Given mEq 60 mEq, Oral, ONCE, 1 dose, Sun11/19/18 at 0815, Do NOT break or crush tablet , 11/20/2018 8:44 AM FISHING GUIDE 150 mg pregabalin (LYRICA) capsule 150 mg Given 150 mg, Oral, TWICE DAILY, First dose on Sun11/15/18 at 2100, Until Discontinued 150 mg Given 11/19/2018 9:28 PM FISHING GUIDE 150 mg Given 11/19/2018 8:31 AM FISHING GUIDE 11/15/2018 10:16 PM FISHING GUIDE 10 mg rizatriptan (MAXALT) tablet 10 mg Given 10 mg, Oral, ONCE PRN, 1 dose, Starting Sun11/15/18 at 2046, Until Sun11/15/18 at 2216, Headache, NOT TO EXCEED 30MG/24 HOURS , 11/19/2018 12:56 PM FISHING GUIDE 1 patch Ear, Behind scopolamine (TRANSDERM-SCOP) patch 1 Patch/Topica patch l Applied 1 patch, Transdermal, Administer over 72 Hours, EVERY 72 HOURS, First dose on Sun11/19/18 at 1230, Until Discontinued 11/15/2018 6:12 PM FISHING GUIDE 3,000 mL 999 mL/hr sodium chloride 0.9 % infusion Given - New 3,000 mL, 3,000 mL, Intravenous, at 999 Bag mL/hr, ONCE, 1 dose, Sun11/15/18 at 1730 11/20/2018 1:10 PM FISHING GUIDE 1 g sucralfate (CARAFATE) oral suspension 1 Given g Patient's Own Medication 1 g, Oral, BEFORE MEALS AND AT BEDTIME, First dose on Sun11/18/18 at 1300, Until Discontinued, Patient's Own Medication, 1 g Given 11/20/2018 8:45 AM FISHING GUIDE 1 g Given 11/19/2018 9:30 PM FISHING GUIDE 11/19/2018 9:28 PM FISHING GUIDE 4 mg tiZANidine (ZANAFLEX) tablet 4 mg Given 4 mg, Oral, EVERY 6 HOURS PRN, Starting Sun11/15/18 at 2046, Until Sun11/20/18 at 1611, Muscle Cramps 4 mg Given 11/19/2018 11:45 AM FISHING GUIDE 4 mg Given 11/18/2018 8:07 PM FISHING GUIDE 11/19/2018 9:28 PM FISHING GUIDE 10 mg zolpidem (AMBIEN) tablet 10 mg Given 10 mg, Oral, AT BEDTIME PRN, Starting Sun11/15/18 at 2046, Until Sun11/20/18 at 1611, Insomnia 10 mg Given 11/18/2018 8:07 PM FISHING GUIDE 10 mg Given 11/17/2018 9:22 PM FISHING GUIDE in this encounter
--- OUTSIDE RECORDS SUMMARY | 2018-12-27 17:54 | XMS REPORT | Encounter Summary ---
Author Author [facility] Organization [facility] Address Unknown Phone Unavailable Care Team Providers Care Patient Scheduling Coordinator Name Role Phone Charles Chau MD Unavailable Migue Patton MD PCP Reason for Referral * Consult, Test & Treat (Routine) Referred By Contact Referred To Contact Status Reason Specialty Diagnoses / [place] [address] [place] [id number] Closed Specialty Services Diagnoses Required Weakness of left lower extremity Gait instability Reason for Visit * Reason Comments Post-op Left ankle and foot Encounter Details Care Team Description [place] [address] [place] [id number] Weakness of left lower extremity (Primary Dx); Gait instability 10/30/2018 Office Visit [facility] - [facility]oped[facility] [address] [place] [address] Social History Date Tobacco Use [...] Vital Signs Time Taken Vital Sign Reading 10/30/2018 12:15 PM WIG MAKER Blood Pressure 121/77 10/30/2018 12:15 PM WIG MAKER Pulse 92 - Temperature - - Respiratory Rate - - Oxygen Saturation - - Inhaled Oxygen - Concentration 10/30/2018 12:15 PM WIG MAKER Weight 67.1 kg (148 lb) 10/30/2018 12:15 PM WIG MAKER Height 165.1 cm (5' 5") 10/30/2018 12:15 PM WIG MAKER Body Mass Index 24.63 in this encounter Functional Status Date of Assessment Functional Status Response 10/18/2018 Does the patient have a hearing impairment: [...] cognitive impairment: No as of this encounter Progress Notes * Paul Manley MD - 10/30/2018 12:00 PM WIG MAKER SUBJECTIVE: Ms. Issa Castillo presents 2 weeks s/p open treatment left tibial shaft fracture with intramedullary device and ORIF left medial malleolus fracture on October 14, 2018. She is doing well. She complains of soreness. She is in a CAM boot. PHYSICAL EXAMINATION: She has some mild swelling. Sensation is intact to light touch in all distributions. She has intact dorsiflexion and plantar flexion of the ankle. Her surgical incisions are all well healed. There is no erythema. There is in drainage. There is no signs or symptoms of infection. RADIOGRAPHS: Radiographs are ordered and reviewed from today. She is maintaining alignment of her distal quarter tibial shaft fracture. She is maintaining alignment of her ankle mortise. She is maintaining alignment of her medial malleolus fracture. Implants are in good position without evidence of loosening or failure. ASSESSMENT: 2 weeks s/p open treatment left tibial shaft fracture with intramedullary device and ORIF left medial malleolus fracture. PLAN: We can remove her sutures today and apply steri-strips. I would get her into some Tubigrip for swelling control. I would go back into her CAM boot. She can come out of the boot to work on range of motion of her ankle several times a day. She can shower and get everything wet. She is weight bearing as tolerated on her left lower extremity. I would have her start some out-patient physical therapy for gait training, weight bearing as tolerated, and range of motion. I would continue to use the walker until she is cleared by therapy. I would like to see her back in 4 weeks with repeat radiographs of the ankle and tibia, weight bearing. In the presence of Paul Manley MD, I have taken down these notes, Keila Patterson. October 31, 2018 2:45 PM MAKER in this encounter Plan of Treatment Care Team Description Date Type Specialty Gunnar Kirk MD [address] [place] [address] Delayed gastric emptying 02/03/2019 Hospital Encounter Gunnar Kirk MD [address] [place] [address] ESOPHAGOGASTRODUODENOSCOPY WITH SPECIMEN COLLECTION BY BRUSHING/ WASHING 02/03/2019 Surgery Order Schedule Name Priority Associated Diagnoses Ordered: 10/30/2018 AMB REFERRAL TO PHYSICAL OR OCCUPATIONAL Routine Weakness of left lower THERAPY extremity Gait instability as of this encounter Visit Diagnoses Diagnosis Weakness of left lower extremity - Primary Gait instability Abnormality of gait in this encounter
--- OUTSIDE RECORDS SUMMARY | 2018-12-27 17:54 | XMS REPORT | Encounter Summary ---
Author Author [facility] Organization [facility] Address Unknown Phone Unavailable Care Team Providers Care Manager Production Name Role Phone Charles Chau MD Unavailable Migue Patton MD PCP Encounter Details Care Team Description Date Type Department Paul Manley MD [address] [facility] [place] [address] [place], [place] [id number] 10/30/2018 Hospital [facility] Radiology [address] [facility] OFF[facility] [address] [place] [address] Social History Date Tobacco Use Types Packs/Day [...] Date End Date Medication Sig Dispensed Refills 09/27/2018 acetaminophen/lidocaine/a Take 30 mL by 1 [...] 1 cap capsule by mouth twice daily. 07/22/2018 ferrous [...] KIT IJ) area(s) as directed as Needed. 07/22/2018 levocarnitine(+) Take four 240 tablet 1 (LEVOCARNITINE(+)) 500 mg tablets by tablet mouth twice daily. levothyroxine (SYNTHROID) Take 175 mcg 0 175 mcg tablet by mouth daily 30 minutes before breakfast. montelukast (SINGULAIR) Take 10 mg by 0 10 mg tablet mouth at bedtime daily. pantoprazole DR Take 40 mg by 0 [...] May repeat in 2 hours if needed 09/27/2018 sucralfate(+) (CARAFATE) Take 10 mL by 414 mL 0 100 mg/mL oral suspension mouth before meals and at bedtime. tiZANidine (ZANAFLEX) 4 Take 4 mg by 0 mg tablet mouth at bedtime daily. 07/22/2018 vitamins, B complex tab Take one 30 tablet 1 tablet by mouth daily. zolpidem (AMBIEN) 10 mg Take 10 mg by 0 tablet mouth at bedtime as needed for Sleep. 10/18/2018 11/16/2018 acetaminophen (TYLENOL) Take two 0 325 mg tablet tablets by mouth every 6 hours. 10/18/2018 11/16/2018 aspirin 325 mg tablet Take one 90 tablet 3 tablet by mouth daily. Take with food. 11/16/2018 clobetasol (TEMOVATE) Apply 0 0.05 % topical solution topically to affected area twice daily. 11/16/2018 diclofenac(+) (VOLTAREN) Apply 4 g 0 1 % topical gel topically to affected area four times daily as needed. 07/22/2018 11/20/[address] (CYMBALTA) Take three 30 capsule 1 30 mg capsule capsules by mouth daily. 11/16/2018 estrogens, conjugated(+) Insert or 0 (PREMARIN) 0.625 mg/g Apply 0.5 g vaginal cream to vaginal area daily. 11/20/2018 hydroxychloroquine Take 200 mg 0 (PLAQUENIL) 200 mg tablet by mouth daily. Take with food. 10/18/2018 11/20/2018 insulin degludec (TRESEBA Inject 12 15 mL 0 SOLOSTAR) 100 unit/mL (3 Units under mL) injection pen the skin at bedtime daily. 10/18/2018 11/20/2018 insulin lispro(+) Inject 4 45 mL 0 (HUMALOG KWIKPEN INSULIN) units 100 unit/mL injection PEN subcutaneousl y with breakfast and lunch, and dinner. 11/16/2018 lidocaine/prilocaine Apply 0 (EMLA) 2.5/2.5 % topical topically to cream affected area as Needed. 10/12/2018 11/16/2018 loperamide (IMODIUM A-D) Take one 15 capsule 0 2 mg capsule capsule by mouth four times daily as needed for Diarrhea. Take 1 capsules by mouth initially, followed by 1 capsule by mouth after each loose stool up to a maximum of 8 tablets in 24 hours. 10/18/2018 11/16/2018 morphine (MSIR) 2 mg/mL Take 3.75-7.5 210 mL 0 oral solution mL by mouth every 4 hours as needed Earliest Fill Date: 10/18/18 11/16/2018 multivitamin with Take 1 tablet 0 minerals (HAIR,SKIN AND by mouth NAILS PO) daily. 11/16/2018 nystatin (NYSTOP) 100,000 Apply 0 unit/g topical powder topically to affected area four times daily. 07/18/2018 11/16/2018 ondansetron (ZOFRAN ODT) Dissolve one 90 tablet 0 4 mg rapid dissolve tablet by tablet mouth every [address] on tongue to disolve. 11/16/2018 pentosan polysulfate Take 100 mg 0 sodium (ELMIRON) 100 mg by mouth capsule three times daily before meals. 10/18/2018 11/16/2018 polyethylene glycol 3350 Take one 12 each 0 (MIRALAX) 17 g packet packet by mouth daily. 10/12/2018 11/20/2018 polyethylene glycol 3350 Take one 30 each 1 (MIRALAX) 17 g packet packet by mouth daily as needed. 07/18/2018 11/16/2018 promethazine (PHENERGAN) Insert or 30 each 0 12.5 mg rectal Apply one suppository suppository to rectal area as directed every 8 hours as needed for Nausea. as of this encounter Plan of Treatment Care Team Description Date Type Specialty Gunnar Kirk MD [address] [place] [address] [phone] Delayed gastric emptying 02/03/2019 Hospital Encounter Gunnar Kirk MD [address] [place] [address] [phone] ESOPHAGOGASTRODUODENOSCOPY WITH SPECIMEN COLLECTION BY BRUSHING/ WASHING 02/03/2019 Surgery as of this encounter Procedures Comments Procedure Name Priority Date/Time Associated Diagnosis ANKLE MIN 3 VIEWS LEFT Routine 10/30/2018 Left ankle pain, 12:21 PM [employer] unspecified chronicity in this encounter Results * ANKLE MIN 3 VIEWS LEFT (10/30/2018 12:21 PM [employer]) Impressions Performed At 1.Medial malleolar plate and screw fixation with intramedullary tibial nail [facility] traversing a comminuted distal one third junction tibial fracture. The medullary tibial nail locking screws engage the lateral aspect of the interosseous membrane and syndesmosis. 2.[place] medial angulated distal fibular fracture with one shaft width medial offset of the distal fracture fragment. 3.The mortise appears preserved. Minimal sclerosis about the medial talar dome could represent osteocartilaginous injury. Mild midfoot arthrosis. 4.Nondisplaced fracture of the fifth metatarsal base without interval displacement. Persistent lucent fifth metatarsal base fracture line is again demonstrated. Finalized by Jordan Mc M.D. on 10/30/2018 2:05 PM. Dictated by Jordan Mc M.D. on 10/30/2018 2:03 PM. Narrative Performed At Exam: ANKLE MIN 3 VIEWS LEFT [facility] CLINICAL INDICATION: 58 years Female; PAIN. Left tibia/fibular pain. Fracture and postsurgical follow-up care. COMPARISON: Left tibia/fibular radiographs 10/12/2018. Procedure Note Interface, Radiant Results - 10/30/2018 2:08 PM [employer] Exam: ANKLE MIN 3 VIEWS LEFT CLINICAL INDICATION: 58 years Female; PAIN. Left tibia/fibular pain. Fracture and postsurgical follow-up care. COMPARISON: Left tibia/fibular radiographs 10/12/2018. IMPRESSION 1. Medial malleolar plate and screw fixation with intramedullary tibial nail traversing a comminuted distal one third junction tibial fracture. The medullary tibial nail locking screws engage the lateral aspect of the interosseous membrane and syndesmosis. 2. [place] medial angulated distal fibular fracture with one shaft width medial offset of the distal fracture fragment. 3. The mortise appears preserved. Minimal sclerosis about the medial talar dome could represent osteocartilaginous injury. Mild midfoot arthrosis. 4. Nondisplaced fracture of the fifth metatarsal base without interval displacement. Persistent lucent fifth metatarsal base fracture line is again demonstrated. Finalized by Jordan Mc M.D. on 10/30/2018 2:05 PM. Dictated by Jordan Mc M.D. on 10/30/2018 2:03 PM. Performing Organization Address City/State/Zipcode Phone Number [facility] in this encounter Visit Diagnoses Diagnosis Left ankle pain, unspecified chronicity in this encounter
--- OUTSIDE RECORDS SUMMARY | 2018-12-27 17:54 | XMS REPORT | Encounter Summary ---
Author Author [facility] Organization [facility] Address Unknown Phone Unavailable Care Team Providers Care Business Process Modeler Name Role Phone Charles Chau MD Unavailable Migue Patton MD PCP Encounter Details Care Team Description Date Type Department Paul Manley MD [address] [facility] [address] [place] [address] Left ankle pain, unspecified chronicity (Primary Dx) 10/28/2018 Orders Only [facility] - Orthopedics [facility] [address] [place] [address] Social History Date Tobacco Use [...] Date Type Specialty Gunnar Kirk MD [address] [place], [place] [phone] Delayed gastric emptying 02/03/2019 Hospital Encounter Gunnar Kirk MD [address] [place] [address] ESOPHAGOGASTRODUODENOSCOPY WITH SPECIMEN COLLECTION BY BRUSHING/ WASHING 02/03/2019 Surgery as of this encounter Results * ANKLE MIN 3 VIEWS LEFT (10/30/2018 12:21 PM [employer]) Impressions Performed At 1.Medial malleolar plate and screw fixation with intramedullary tibial nail [facility] traversing a comminuted distal one third junction tibial fracture. The medullary tibial nail locking screws engage the lateral aspect of the interosseous membrane and syndesmosis. 2.[place] medial angulated distal fibular fracture with one [...] Interface, Radiant Results - 10/30/2018 2:08 PM [employer] Exam: ANKLE MIN 3 VIEWS LEFT CLINICAL INDICATION: 58 years Female; PAIN. Left tibia/fibular pain. Fracture and postsurgical follow-up care. COMPARISON: Left tibia/fibular radiographs 10/12/2018. IMPRESSION 1. Medial malleolar plate and screw fixation with intramedullary tibial nail traversing a comminuted distal one third junction tibial fracture. The medullary tibial nail locking screws engage the lateral aspect of the interosseous membrane and syndesmosis. 2. [place] medial angulated distal fibular fracture with one [...] Diagnoses Diagnosis Left ankle pain, unspecified chronicity - Primary in this encounter
--- OUTSIDE RECORDS SUMMARY | 2018-12-27 17:56 | XMS REPORT | Encounter Summary ---
Author Author [facility] Organization [facility] Address Unknown Phone Unavailable Care Team Providers Care Checker/Stocker Name Role Phone Charles Chau MD Unavailable Migue Patton MD PCP Reason for Visit * Reason Comments Fall * Auth/Cert Referred By Contact Referred To Contact Status Reason Specialty Diagnoses / Procedures Diagnoses Hypotension Diarrhea CLL (chronic lymphocytic leukemia) (HCC) Encounter Details Care Team Description Date Type Department Abby Riley MD [address] [facility] [address] [place] [address] [phone] Xochitl Khalil MD [address] [facility] [address] [place] [address] [phone] Israel Orourke MD [address] [facility] [address] [place] [address] [phone] Tibia/fibula fracture 10/12/2018 Hospital Ortho/Fam Med - Encounter Main [facility] 4th mi Unit 10/18/2018 [address] [place] [address] Social History Date Tobacco Use Types Packs/Day [...] Vital Signs Time Taken Vital Sign Reading 10/18/2018 5:51 AM ROOM SERVICE WAITER/WAITRESS Blood Pressure 124/59 10/18/2018 5:51 AM ROOM SERVICE WAITER/WAITRESS Pulse 84 10/18/2018 5:51 AM ROOM SERVICE WAITER/WAITRESS Temperature 37.1 C (98.7 F) - Respiratory Rate - 10/18/2018 5:51 AM ROOM SERVICE WAITER/WAITRESS Oxygen Saturation 92% - Inhaled Oxygen - Concentration 10/12/2018 9:31 PM ROOM SERVICE WAITER/WAITRESS Weight 67.2 kg (148 lb 2.4 oz) 10/12/2018 9:31 PM ROOM SERVICE WAITER/WAITRESS Height 165.1 cm (5' 5") 10/12/2018 9:31 PM ROOM SERVICE WAITER/WAITRESS Body Mass Index 24.65 in this encounter Functional Status Date of [...] Discharge Summaries * Israel Orourke MD - 10/18/2018 2:53 PM ROOM SERVICE WAITER/WAITRESS Physician Discharge Summary Name: Chelsea Castillo Date Of : 1960 Age: 58 years Admit date: 10/12/2018 Discharge date: 10/18/2018 Attending Physician: Israel Orourke MD Service: [facility] Commtimize Physician Summary completed by: Israel Orourke MD Reason for hospitalization: Fall at home resulting in L tib fib fracture Significant PMH: Past Medical History: Diagnosis Date Arthritis Chronic abdominal pain Cyclic vomiting syndrome Diabetes mellitus type 1 (HCC) Orthostatic hypotension Osteoporosis Stomach problems Thyroid disorder Allergies: Sulfa (sulfonamide antibiotics) Admission Physical Exam notable for: BP: (110-190)/(65-90) Temp: [36.6 C (97.8 F)-37.1 C (98.8 F)] Pulse: [82-96] Respirations: [9 PER MINUTE-30 PER MINUTE] SpO2: [94 %-100 %] O2 Delivery: Nasal Cannula General: Alert, awake, oriented x 3 , cooperative, in mild distress due to pain , appears stated age Extremities: Extremities normal, no cyanosis or edema right lower extremity, left lower extremity in splint Admission Lab/Radiology studies notable for: WBC: 17.1 Glucose: 151 Cr: 0.81 IMPRESSION 1. Comminuted and displaced fracture of the distal left tibia diaphysis. 2. Comminuted and displaced fracture of the distal left fibular diaphysis. 3. No acute fracture of the right tibia/fibula. Findings/impression: Interval placement of splinting material about the left lower extremity which limits evaluation of soft tissues and fine osseous detail. Redemonstration of comminuted and displaced fractures of the distal tibial and fibular diaphyses. Similar alignment with persistent posterior angulation of the distal tibial fracture site and overriding of the proximal fibular fracture fragment. Findings/impression: Splinting material again noted about the tibia/fibula and ankle which slightly limits evaluation. Redemonstration of comminuted distal tibial fracture. Improved alignment at the fracture site. Improved alignment at the distal fibular fracture which is overall poorly visualized due to overlying casting material. CT lower extremity IMPRESSION 1. Comminuted fracture of the distal tibial diaphysis with nondisplaced extension to the tibial plafond and medial malleolus. 2. Oblique fracture of the distal fibula with additional nondisplaced fractures in the distal fibular fracture segment. Brief Hospital Course: The patient was admitted and the following issues were addressed during this hospitalization: (with pertinent details). Pt had just been discharged on 10/14 after being admitted for chronic abd pain and N/V. The day of her discharge she was at her sisters home and tripped over a gutter in the yard resulting in a tibia and fibula fracture. Ortho was consulted in the ED and set the fracture and placed in a soft splint. She was taken to the OR on 10/14 for fixation with IM nail. Pain mgmt was consulted post op and pt's pain quickly improved. She did have some N/V 2/2 anesthesia but this improved w/ scopolamine. Continued on 325mg ASA for DVT ppx. She is WBAT on the LLE while wearing a Cam boot At discharge changed her Tresiba to 12u and humalog to 4u TID AC. Condition at Discharge: Stable Discharge Diagnoses: Hospital Problems Active Problems Type 1 diabetes, uncontrolled, with neuropathy (HCC) Chronic abdominal pain Immunosuppression due to drug therapy Acquired hypothyroidism CLL (chronic lymphocytic leukemia) ([facility]) Tibia/fibula fracture Anxiety and depression Seizure disorder ([facility]) Surgical Procedures: Date: 10/14/2018 Preoperative Dx: Closed fracture of left tibia and fibula, initial encounter [S82.202A, S82.402A] Post-op Diagnosis * Closed fracture of left tibia and fibula, initial encounter [S82.202A, S82.402A] Procedure(s) (LRB): OPEN TREATMENT TIBIAL SHAFT FRACTURE IM NAIL (Left) Anesthesia Type: General Surgeon(s) and Role: * Paul Manley MD - Primary * Karma Boothe MD - Resident - Assisting Findings: distal tibial shaft fracture with extension into the medial malleolus Estimated Blood Loss: No blood loss documented. Significant Diagnostic Studies and Procedures: noted in brief hospital course Consults: Orthopedics and Pain Management Patient Disposition: Penitentiary Facility Patient instructions/medications: Restrictions for Left Leg Weight bearing as tolerated in CAM boot Continue these restrictions until follow up appointment. Report These Signs and Symptoms Please contact your doctor if you have any of the following symptoms: temperature higher than 100 degrees F, uncontrolled pain, persistent nausea and/ or vomiting, difficulty breathing, chest pain, severe abdominal pain or drainage with a foul odor Questions About Your Stay For questions or concerns regarding your hospital stay. Call [phone] Discharging attending physician: ISRAEL OROURKE [[id number]] Complete if patient is going to a Penitentiary Facility I certify that the patient requires skilled care Yes The patient's stay is expected to be less than 30 days Yes I will be in charge of patient in long-term No Diabetic Diet You should eat between 1600 and 2000 calories per day. This is equal to 60g ( grams) of carbohydrates per meal, and 30g of carbohydrates for a bedtime snack. If you have questions about your diet after you go home, you can call a dietitian at [phone]. Wound Care Keep wound clean and dry. Do not submerge under water. Dressings to remain in place until follow up appointment. If soiled or saturated may change with dry gauze and tape. Opioid (Narcotic) Safety Information OPIOID (NARCOTIC) PAIN [...] Medication List START taking these medications Details acetaminophen (TYLENOL) 325 mg tablet Take two tablets by mouth every 6 hours. Refills: 0 PRESCRIPTION TYPE: OTC aspirin 325 mg tablet Take one tablet by mouth daily. Take with food. Qty: 90 tablet, Refills: 3 PRESCRIPTION TYPE: No Print morphine (MSIR) 2 mg/mL oral solution Take 3.75-7.5 mL by mouth every 4 hours as needed Earliest Fill Date: 10/18/18 Qty: 210 mL, Refills: 0 PRESCRIPTION TYPE: Print !! polyethylene glycol 3350 (MIRALAX) 17 g packet Take one packet by mouth daily. Qty: 12 each, Refills: 0 PRESCRIPTION TYPE: No Print !! - Potential duplicate medications found. Please discuss with provider. CONTINUE these medications which have been CHANGED or REFILLED Details insulin degludec (TRESEBA SOLOSTAR) 100 unit/mL (3 mL) injection pen Inject 12 Units under the skin at bedtime daily. Qty: 15 mL, Refills: 0 PRESCRIPTION TYPE: No Print insulin lispro(+) (HUMALOG KWIKPEN INSULIN) 100 unit/mL injection PEN Inject 4 units subcutaneously with breakfast and lunch, and dinner. Qty: 45 mL, Refills: 0 PRESCRIPTION [...] area twice daily. PRESCRIPTION TYPE: Historical Med coenzyme Q10(+) 100 mg cap Take one capsule by mouth twice daily. Qty: 60 capsule, Refills: 1 PRESCRIPTION TYPE: Normal diclofenac(+) (VOLTAREN) 1 % topical gel Apply 4 g topically to affected area four times daily as needed. PRESCRIPTION TYPE: Historical Med dicyclomine (BENTYL) 10 mg capsule Take one capsule by mouth before meals and at bedtime for 14 days. Qty: 56 capsule, Refills: 0 PRESCRIPTION TYPE: Normal duloxetine DR (CYMBALTA) 30 mg capsule Take three capsules by mouth daily. Qty: 30 capsule, Refills: 1 PRESCRIPTION TYPE: Normal estrogens, conjugated(+) (PREMARIN) 0.625 mg/g vaginal cream Insert or Apply 0.5 g to vaginal area daily. PRESCRIPTION TYPE: Historical Med ferrous gluconate (FERGON) 240 mg (27 mg iron) tablet Take one tablet by mouth daily. Qty: 30 tablet, Refills: 1 PRESCRIPTION TYPE: Normal fesoterodine ER(+) (TOVIAZ) 4 mg tablet Take 4 mg by mouth daily. PRESCRIPTION TYPE: Historical Med fludrocortisone (FLORINEF) 0.1 mg tablet Take 0.3 mg by mouth daily. PRESCRIPTION TYPE: Historical [...] Take with food. PRESCRIPTION TYPE: Historical Med levocarnitine(+) (LEVOCARNITINE(+)) 500 mg tablet Take four tablets by mouth twice daily. Qty: 240 tablet, Refills: 1 PRESCRIPTION TYPE: Normal levothyroxine (SYNTHROID) 175 mcg tablet Take 175 mcg by mouth daily 30 minutes before breakfast. PRESCRIPTION TYPE: Historical Med lidocaine/prilocaine (EMLA) 2.5/2.5 % topical cream Apply topically to affected area as Needed. PRESCRIPTION TYPE: Historical Med loperamide (IMODIUM A-D) 2 mg capsule Take one capsule by mouth four times daily as needed for Diarrhea. Take 1 capsules by mouth initially, followed by 1 capsule by mouth after each loose stool up to a maximum of 8 tablets in 24 hours. Qty: 15 capsule, Refills: 0 PRESCRIPTION TYPE: Normal montelukast (SINGULAIR) 10 mg tablet Take 10 mg by mouth at bedtime daily. PRESCRIPTION TYPE: Historical Med multivitamin with minerals (HAIR,SKIN AND NAILS PO) Take 1 tablet by mouth daily. PRESCRIPTION TYPE: Historical Med nystatin (NYSTOP) 100,000 [...] daily before meals. PRESCRIPTION TYPE: Historical Med !! polyethylene glycol 3350 (MIRALAX) 17 g packet Take one packet by mouth daily as needed. Qty: 30 each, Refills: 1 PRESCRIPTION TYPE: Normal potassium chloride SR (K-DUR) 10 mEq tablet [...] 30 each, Refills: 0 PRESCRIPTION TYPE: Normal pyridoxine (VITAMIN B-6) 50 mg tablet Take [...] hours as needed. PRESCRIPTION TYPE: Historical Med vitamins, B complex tab Take one tablet by mouth daily. Qty: 30 tablet, Refills: 1 PRESCRIPTION TYPE: Normal zolpidem (AMBIEN) 10 mg tablet Take 10 mg by mouth at bedtime as needed for Sleep. PRESCRIPTION TYPE: Historical Med !! - Potential duplicate medications found. Please discuss with provider. Scheduled appointments: Oct 30, 2018 12:00 PM ROOM SERVICE WAITER/WAITRESS Post - Op with Paul Manley MD [facility] - Orthopedics ([facility]) [facility] [address] [facility] [address] Nov 22, 2018 3:00 PM ROOM SERVICE WAITER/WAITRESS Return Patient with Gunnar Kirk MD [facility] ([facility] Internal Medicine) [facility] [address] [facility] [address] Jan 08, 2019 10:00 AM ROOM SERVICE WAITER/WAITRESS CLINICAL SUPPORT NEW with Shirley Lee RN [facility] - Internal Medicine ([facility] Internal Medicine) [address] [facility] [address] Jan 15, 2019 2:00 PM ROOM SERVICE WAITER/WAITRESS (Arrive by 1:45 PM) Lab with CC PHLEBOTOMY CHAIR [facility] Exam ([facility] Exam) [address] [address] Jan 15, 2019 3:00 PM ROOM SERVICE WAITER/WAITRESS (Arrive by 2:45 PM) Return Patient with Milena Bhatti MD [facility] Exam ([facility] Exam) [facility] [address] Pending items needing follow up: None Signed: Israel Orourke MD 10/18/2018 cc: Primary Care Physician: Migue Patton III Verified Referring physicians: No ref. provider found Additional provider(s): SERVICE WAITER/WAITRESS in this encounter Medications at Time of [...] affected area four times daily as needed. 10/12/2018 10/26/2018 dicyclomine (BENTYL) 10 Take one 56 capsule 0 mg capsule capsule by mouth before meals and at bedtime for 14 days. 07/22/2018 11/20/[address] (CYMBALTA) Take three [...] needed for Nausea. as of this encounter Progress Notes * Jannet Velasco RN - 10/18/2018 2:30 PM ROOM SERVICE WAITER/WAITRESS Chelsea Castillo discharged on 10/18/2018. . Discharge instructions reviewed with patient and family. Valuables returned: Personal Items / Valuables: Clothing. Home medications: . Functional assessment at discharge complete: Yes . SERVICE WAITER/WAITRESS * Maylin Castle - 10/18/2018 1:55 PM ROOM SERVICE WAITER/WAITRESS I have reviewed the notes, assessments, and/or procedures performed by Sandra WHITTAKER, and concur with her documentation unless otherwise noted. SERVICE WAITER/WAITRESS * Brea Garcia OT - 10/18/2018 1:39 PM ROOM SERVICE WAITER/WAITRESS OCCUPATIONAL THERAPY PROGRESS NOTE Patient Name: Chelsea Castillo Room/Bed: WM7165/01 Mobility Progressive Mobility Level: Walk in room Distance Walked (feet): 10 ft Level of Assistance: Stand by assistance Assistive Device: Walker Time Tolerated: 11-30 minutes Activity Limited By: Fatigue Subjective Pertinent Dx per Physician: 58yoF w/ PMH of CLL on active tx, DM1, migraine ROWE, hypothyroid, , chronic abd pain, anxiety and depression, seizure d/o, chronic abd pain w/ gastroparesis, arthritis on immunosuppression, who is admitted w/ tib-fib fracture, 5 metatarsal fracture after fall at home after discharge from [facility]. Precautions: Standard;Falls L LE Precautions: LLE WBAT: Weight Bearing As Tolerated;L Cam Boot Pain / Complaints: Patient agrees to participate in therapy;Patient premedicated Comments: Patient left sitting upright in chair. Chair alarm activated. All needs met. Objective Psychosocial Status: Participates in Therapy with Encouragement;Willing and Cooperative to Participate Persons Present: Spouse Home Living Type of Home: House Home Layout: One Level Bathroom Shower / Tub: Tub/Shower Unit Home Equipment: Walker Comment: Patient planning to discharge to sister's home. Documentation reflective of that set-up. Prior Function Level Of [place]: Independent with ADLs and functional transfers; Independent with homemaking w/ ambulation Lives With: Spouse Other Function Comments: Patient reports spouse will be available to provide assistance as needed upon discharge. ADL's Where Assessed: Edge of Bed;Chair Eating Assist: Modified Independent Eating Deficits: Beverage Management UE Dressing Assist: Modified Independent UE Dressing Deficits: Pull Around Back;Thread LUE;Thread RUE LE Dressing Assist: Minimal Assist LE Dressing Deficits: Pull Up Over Hips;Thread LLE Into Pants Functional Transfer Assist: Stand By Assist, supine> sit, sit> stand, ambulating room with RW. CAM boot donned all times Functional Transfer Deficits: Supervision/Safety Comments: educated patient and family regarding UE/ LE dressing modifications in standing and supine in bed. Patient and spouse verbalized understanding. No further ADL questions/ concerns at this time. Assessment Assessment: Decreased ADL Status;Decreased Endurance;Decreased Self-Care Trans; Decreased High-Level ADLs Prognosis: Good;w/ Family Goal Formulation: Patient AM-PAC 6 Clicks Daily Activity Inpatient Putting on and taking off regular lower body clothes?: A Little Bathing (Including washing, rinsing, drying): A Little Toileting, which includes using toilet, bedpan, or urinal: A Little Putting on and taking off regular upper body clothing: None Taking care of personal grooming such as brushing teeth: None Eating meals?: None Daily Activity Raw Score: 21 Standardized (t-scale) score: 44.27 CMS 0-100% Score: 32.79 CMS G Code Modifier: CJ Plan Progress: Progressing Toward Goals OT Frequency: 5x/week OT Plan for Next Visit: activity tolerance, dynamic standing at sink ADL Goals Patient Will Perform Grooming: Standing at Sink;w/ Mod Independent Patient Will Perform LE Dressing: w/ Modified Independent Patient Will Perform Toileting: w/ Modified Independent Functional Transfer Goals Pt Will Perform All Functional Transfers: Modified Independent OT Discharge Recommendations OT Discharge Recommendations: Inpatient Setting Equipment Recommendations: Tub Transfer Bench, Grab Bars Recommend ongoing assistance for: Toileting, Bathing, Dressing, Transfers Therapist: Brea Garcia OT Date: 10/18/2018 SERVICE WAITER/WAITRESS * Israel Orourke MD - 10/18/2018 8:47 AM ROOM SERVICE WAITER/WAITRESS Day of Discharge Progress Note S: Pt w/o acute events overnight. She is feeling well today. No further N/V or abdominal pain. Has not had a bowel movement in 2 days, but is passing gas. Pain in her leg is improving. O: Exam unchanged from day prior. Vitals: 10/17/18 0601 10/17/18 1434 10/17/18 2102 10/18/18 0551 BP: 113/54 108/56 115/53 124/59 Pulse: 88 84 87 84 Temp: 36.9 C (98.5 F) 36.4 C (97.5 F) 36.9 C (98.5 F) 37.1 C ( 98.7 F) SpO2: 94% 94% 93% 92% Weight: Height: Labs reviewed. No leukocytosis, Fasting [id number]. A/P: 58yoF w/ PMH of CLL on active tx, DM1, migraine ROWE, hypothyroid, , chronic abd pain, anxiety and depression, seizure d/o, chronic abd pain w/ gastroparesis, arthritis on immunosuppression, who is admitted w/ tib-fib fracture, 5 metatarsal fracture after fall at home after discharge from [facility]. Changes made to today's assessment and plan are indicated in bold. L tib fib fracture, L 5th metatarsal fracture - ortho consulted on admit, splint was applied in the ED - s/p surgical fixation w/ IM nail 10/14 - WBAT on LLE in CAM - received 24hrs post op Ancef - pain mgmt consulted; cont scheduled Tylenol, morphine solution PRN - 325mg ASA for ppx - miralax daily while on opiates - has f/u w/ Dr. Manley on 10/30, dressings to remain in place until then - cont PT, OT Chronic abd pain, N/V - w/u to date has been unrevealing - cont PRN imodium, bentyl, sucralfate - cont lyrica - cont PPI - scopolamine patch DM1 - a1c=8.5% - at discharge will be on Tresiba 12u QHS and humalog 5u TID AC - LDCF CLL - following w/ heme, currently only have surveillance labs Orthostatic hypotension - cont florinef MDD, anxiety - cont EDGE [place] cymbalta, PRN BID Valium - decreased ambien to 5mg w/ narcotics ?seizure d/o - cont tegretol ?inflammatory arthritis - cont plaquenil Hypothyroid - cont synthroid 35 min spent in discharge planning including counseling on medications, arranging follow up appointments, and discussing return precautions. Israel Orourke MD Pager: [phone] Future Appointments Date Time Provider Department Center 10/30/2018 12:00 PM Paul Manley MD ORTHOCL [facility] Orthoped 11/22/2018 3:00 PM [facility] IM 01/08/2019 10:00 AM Shirley Lee RN QVIMDIAB [facility] IM 01/15/2019 2:00 PM CC PHLEBOTOMY CHAIR [facility] Exam 01/15/2019 3:00 PM Milena Bhatti MD [facility] Exam SERVICE WAITER/WAITRESS * Kierra Fraire - 10/17/2018 1:03 PM ROOM SERVICE WAITER/WAITRESS PHYSICAL THERAPY PROGRESS NOTE MOBILITY: Mobility Progressive Mobility Level: Walk in hallway Distance Walked (feet): 175 ft Level of Assistance: Stand by assistance Assistive Device: Walker Time Tolerated: 11-30 minutes Activity Limited By: Fatigue SUBJECTIVE: Subjective Significant hospital events: PMH of Type I DM, Diabetic neuropathy, recent diagnosis of SLL/CLL, Hypothyroidism, Orthostatic hypotension, Intractrable nausea/vomiting, cyclic vomiting syndrome, anxiety/depression, chronic abdominal pain, gastroparesis ?Diomedes Stevenson who was just discharged from hospitalist service after being treated for diarrhea, now presented post fall and was found to have left tib-fib fracture. Plan to have OR 10/14. Mental / Cognitive Status: Alert;Cooperative;Follows Commands Persons Present: Family;Sister Pain: Patient complains of pain;Patient does not rate pain (reports pain is better than yesterday) Pain Location: Left;Leg Pain Interventions: Patient agrees to participate in therapy;Nursing staff notified of patient's pain level;Treatment altered to patient's pain tolerance; Patient assisted into position of comfort L LE Precautions: LLE WBAT: Weight Bearing As Tolerated;L Cam Boot Ambulation Assist: Independent Mobility at Household Level without Device Patient Owned Equipment: None Home Situation: Lives with Family Type of Home: House Entry Stairs: 3-5 Stairs;Rail on 1 Side In-Home Stairs: Able to Live on One Level BED MOBILITY/TRANSFERS: Bed Mobility/Transfers Transfer Type: Sit to/from Stand Transfer: Assistance Level: To/From;Bed Side Chair;Standby Assist Transfer: Assistive Device: Roller Walker Transfers: Type Of Assistance: For Safety Considerations;For Balance;Verbal Cues ;To Maintain Precautions End Of Activity Status: Up in Chair (TABS activated) GAIT: Gait Gait Distance: 175 feet Gait: Assistance Level: Standby Assist Gait: Assistive Device: Roller Walker Gait: Descriptors: Antalgic;Decreased stance time LLE;No balance loss ASSESSMENT/PROGRESS: Assessment/Progress Impaired Mobility Due To: Pain;Safety Concerns;Impaired Balance;Post Surgical Changes Comments: Pt able to progress to ambulation in hallway this session and reports significant improvement in pain today. Improved balance noted with pt wearing tennis shoe on R foot to balance out L CAM boot. AM-PAC 6 Clicks Basic Mobility Inpatient Turning from your back to your side while in a flat bed without using bed rails : A Little Moving from lying on your back to sitting on the side of a flatbed without using bedrails : A Little Moving to and from a bed to a chair (including a wheelchair): A Little Standing up from a chair using your arms (e.g. wheelchair, or bedside chair): A Little To walk in hospital room: A Little Climbing 3-5 steps with a railing: A Lot Raw Score: 17 Standardized (T-scale) Score: 39.67 Basic Mobility CMS 0-100%: 43.83 CMS G Code Modifier for Basic Mobility: CK GOALS: Goals Goal Formulation: With Patient Time For Goal Achievement: 5 days, To, 7 days Pt Will Go Supine To/From Sit: w/ Minimal Assist Pt Will Transfer Sit to Stand: w/ Minimal Assist Pt Will Ambulate: 1-10 Feet, w/ Walker, w/ Minimal Assist, Met Pt Will Go Up / Down Stairs: (to set when appropriate. ) PLAN: Plan Treatment Interventions: Mobility Training;Endurance Training;Balance Activities ;Family Training Plan Frequency: 5-7 Days per Week PT Plan for Next Visit: Progress ambulation distance, trial stairs, bed mobility with bed flat/no rail. P.T. mobility aide to assist with ongoing mobilization and exercise per instructions of licensed physical therapy staff. RECOMMENDATIONS: PT Discharge Recommendations PT Discharge Recommendations: Inpatient Setting Equipment Recommendations: Too early to be determined Therapist: Kierra Fraire Date: 10/17/2018 SERVICE WAITER/WAITRESS * Brea Garcia, OT - 10/17/2018 9:07 AM ROOM SERVICE WAITER/WAITRESS OCCUPATIONAL THERAPY PROGRESS NOTE Patient Name: Chelsea Castillo Room/Bed: [place] [address] Admitting Diagnosis: Past Medical History: Diagnosis Date Arthritis Diabetes mellitus type 1 (HCC) Osteoporosis Stomach problems Thyroid disorder Mobility Progressive Mobility Level: Walk in room Distance Walked (feet): 25 ft Level of Assistance: Assist X1 Assistive Device: Walker Time Tolerated: 11-30 minutes Subjective Pertinent Dx per Physician: 58yoF w/ PMH of CLL on active tx, DM1, migraine ROWE, hypothyroid, , chronic abd pain, anxiety and depression, seizure d/o, chronic abd pain w/ gastroparesis, arthritis on immunosuppression, who is admitted w/ tib-fib fracture, 5 metatarsal fracture after fall at home after discharge from [facility]. Precautions: Standard;Falls L LE Precautions: LLE WBAT: Weight Bearing As Tolerated;L Cam Boot Pain / Complaints: Patient agrees to participate in therapy;Patient premedicated Comments: Patient left sitting upright in chair. Chair alarm activated. All needs met. Objective Psychosocial Status: Participates in Therapy with Encouragement;Willing and Cooperative to Participate Persons Present: Nursing Staff Home Living Type of Home: House Home Layout: One Level Bathroom Shower / Tub: Tub/Shower Unit Home Equipment: Walker Comment: Patient planning to discharge to sister's home. Documentation reflective of that set-up. Prior Function Level Of [place]: Independent with ADLs and functional transfers; Independent with homemaking w/ ambulation Lives With: Spouse Other Function Comments: Patient reports spouse will be available to provide assistance as needed upon discharge. ADL's Where Assessed: In Bathroom;Standing at Sink;Edge of Bed Eating Assist: Stand By Assist Eating Deficits: Setup;Beverage Management Grooming Assist: Minimal Assist Grooming Deficits: Steadying;Supervision/Safety;Wash/Dry Hands (Standing at Sink ) LE Dressing Assist: Stand By Assist LE Dressing Deficits: Setup;Don/Doff R Sock;Don/Doff R Shoe Toileting Assist: Minimal Assist Toileting Deficits: Steadying;Verbal Cueing;Supervision/Safety;Grab Bar Use Functional Transfer Assist: Minimal Assist Functional Transfer Deficits: Steadying;Supervision/Safety;Toilet Transfer Assessment Assessment: Decreased ADL Status;Decreased Endurance;Decreased Self-Care Trans; Decreased High-Level ADLs Prognosis: Good;w/ Family Goal Formulation: Patient AM-PAC 6 Clicks Daily Activity Inpatient Putting on and taking off regular lower body clothes?: A Little Bathing (Including washing, rinsing, drying): A Little Toileting, which includes using toilet, bedpan, or urinal: A Little Putting on and taking off regular upper body clothing: None Taking care of personal grooming such as brushing teeth: None Eating meals?: None Daily Activity Raw Score: 21 Standardized (t-scale) score: 44.27 CMS 0-100% Score: 32.79 CMS G Code Modifier: CJ Plan Progress: Progressing Toward Goals OT Frequency: 5x/week OT Plan for Next Visit: activity tolerance, dynamic standing at sink ADL Goals Patient Will Perform Grooming: Standing at Sink;w/ Mod Independent Patient Will Perform LE Dressing: w/ Modified Independent Patient Will Perform Toileting: w/ Modified Independent Functional Transfer Goals Pt Will Perform All Functional Transfers: w/ Stand By Assist OT Discharge Recommendations OT Discharge Recommendations: Home with family assist, Home with Home Health, Vs , Inpatient Setting Equipment Recommendations: Tub Transfer Bench, Grab Bars Recommend ongoing assistance for: Toileting, Bathing, Dressing, Transfers Therapist: Brea Garcia OT Date: 10/17/2018 SERVICE WAITER/WAITRESS * Israel Orourke MD - 10/17/2018 8:39 AM ROOM SERVICE WAITER/WAITRESS General Progress Note Name: Chelsearadha Parsons Castillo Today's Date: 10/17/2018 Admission Date: 10/12/2018 LOS: 5 days Assessment/Plan: Active Problems: Type 1 diabetes, uncontrolled, with neuropathy (HCC) Chronic abdominal pain Immunosuppression due to drug therapy Acquired hypothyroidism CLL (chronic lymphocytic leukemia) (HCC) Tibia/fibula fracture Anxiety and depression Seizure disorder (HCC) 58yoF w/ PMH of CLL on active tx, DM1, migraine ROWE, hypothyroid, , chronic abd pain, anxiety and depression, seizure d/o, chronic abd pain w/ gastroparesis, arthritis on immunosuppression, who is admitted w/ tib-fib fracture, 5 metatarsal fracture after fall at home after discharge from [facility]. Changes made to today's assessment and plan are indicated in bold. L tib fib fracture, L 5th metatarsal fracture - ortho consulted on admit, splint was applied in the ED - s/p surgical fixation w/ IM nail 10/14 - WBAT on LLE in CAM - received 24hrs post op Ancef - pain mgmt consulted; cont scheduled Tylenol, morphine solution, cont IV morphine for breakthrough - cont PT, OT Chronic abd pain, N/V - w/u to date has been unrevealing - cont PRN imodium, bentyl, sucralfate - cont lyrica - cont PPI - scopolamine patch DM1 - a1c=8.5% - increase lantus to 14u, aspart 5u TID AC - change to LDCF CLL - following w/ heme, currently only have surveillance labs Orthostatic hypotension - cont florinef MDD, anxiety - cont EDGE BONDER cymbalta, PRN BID Valium - decreased ambien to 5mg w/ narcotics ?seizure d/o - cont tegretol ?inflammatory arthritis - cont plaquenil Hypothyroid - cont synthroid FEN: no IVF, replace lytes PRN, ADA diet Ppx: 325mg Aspirin Code: Full Dispo: cont inpt admit, abd olson and N/V have resolved. Pain is doing well. Continues to work well w/ PT. Plan to d/c to SNF tomorrow. Subjective Chelsea Castillo is a 58 y.o. female. Patient w/o acute events overnight. abd pain and N/V have resolved. Had dinner last night w/o issues. Worked with PT yesterday walking in her room and sitting in her chair. Pain in her leg is improving. ROS: neg for fevers, chills, dyspnea, chest pain, palpitations Medications Scheduled Meds: acetaminophen (TYLENOL) tablet 650 mg 650 mg Oral Q6H* aspirin tablet 325 mg 325 mg Oral QDAY atorvastatin (LIPITOR) tablet 40 mg 40 mg Oral QDAY carBAMazepine (TEGRETOL) tablet 400 mg 400 mg Oral QDAY cetirizine (ZYRTEC) tablet 10 mg 10 mg Oral QAM8 cholecalciferol (VITAMIN D-3) tablet 5,000 Units 5,000 Units Oral QDAY dicyclomine (BENTYL) capsule 10 mg 10 mg Oral ACHS duloxetine DR (CYMBALTA) capsule 90 mg 90 mg Oral QDAY ferrous gluconate tablet 324 mg 324 mg Oral QDAY w/breakfast fludrocortisone (FLORINEF) tablet 0.3 mg 0.3 mg Oral QDAY fluticasone (FLONASE) nasal spray 1 spray 1 spray Each Nostril QDAY hydroxychloroquine (PLAQUENIL) tablet 200 mg 200 mg Oral QDAY insulin aspart U-100 (NOVOLOG FLEXPEN) injection PEN 0-7 Units 0-7 Units Subcutaneous ACHS insulin aspart U-100 (NOVOLOG FLEXPEN) injection PEN 5 Units 5 Units Subcutaneous TID w/ meals insulin glargine (LANTUS SOLOSTAR, BASAGLAR) injection PEN 14 Units 14 Units Subcutaneous QHS(22) levothyroxine (SYNTHROID) tablet 175 mcg 175 mcg Oral QDAY 30 min before breakfast montelukast (SINGULAIR) tablet 10 mg 10 mg Oral QHS pantoprazole DR (PROTONIX) tablet 40 mg 40 mg Oral QDAY pentosan polysulfate sodium (ELMIRON) capsule 100 mg 100 mg Oral TID before meals pregabalin (LYRICA) capsule 150 mg 150 mg Oral BID pyridoxine (VITAMIN B-6) tablet 50 mg 50 mg Oral QDAY scopolamine (TRANSDERM-SCOP) patch 1 patch 1 patch Transdermal Q72H* SUCRALFATE 1gm/10ml (Patients own medication) 1 g Oral ACHS vitamins, B complex tablet 1 tablet 1 tablet Oral QDAY vitamins, multiple tablet 1 tablet 1 tablet Oral QDAY Continuous Infusions: PRN and Respiratory Meds:acetaminophen/lidocaine/antacid DS(#) QID PRN, ALPRAZolam BID PRN, hydrALAZINE Q6H PRN, loperamide QID PRN, morphine Q4H PRN, morphine injection syringe Q6H PRN, ondansetron (ZOFRAN) IV Q4H PRN, prochlorperazine Q6H PRN, tiZANidine Q6H PRN, zolpidem QHS PRN Objective Vital Signs: Last Filed Vital Signs: 24 Hour Range BP: 113/54 (10/17 601) Temp: 36.9 C (98.5 F) (10/17 601) Pulse: 88 (10/17 601) Respirations: 18 PER MINUTE (10/17 601) SpO2: 94 % (10/17 601) O2 Delivery: None (Room Air) (10/17 601) BP: (113-140)/(54-70) Temp: [36.7 C (98.1 F)-37.3 C (99.1 F)] Pulse: [80-88] Respirations: [16 PER MINUTE-18 PER MINUTE] SpO2: [94 %-97 %] O2 Delivery: None (Room Air) Intensity Pain Scale (Self Report): 7 (10/17/18 0644) Vitals: 10/12/18 2131 Weight: 67.2 kg (148 lb 2.4 oz) Intake/Output Summary: (Last 24 hours) Intake/Output Summary (Last 24 hours) at 10/17/18 0839 Last data filed at 10/17/18 0643 Gross per 24 hour Intake 0 ml Output 1450 ml Net -1450 ml Stool Occurrence: 1 Physical Exam General: Awake, alert, flat affect Head: Normocephalic, without obvious abnormality, atraumatic. Eyes: Conjunctivae/corneas clear. Lungs: CTAB, no rales, no wheezing. Heart: reg rate, reg rhythm, no MRG. Abdomen: Soft, NTTP. Bowel sounds normal. Extremities: LLE in CAM, SILT Pulses: 2+ radial pulses b/l Lab Review Hematology: Lab Results Component Value Date HGB 8.5 10/17/2018 HCT 26.4 10/17/2018 PLTCT 182 10/17/2018 WBC 9.1 10/17/2018 NEUT 32 10/17/2018 ANC 3.00 10/17/2018 LYMPH 53 09/27/2018 ALC 4.50 10/17/2018 EVELYN 7 10/17/2018 AMC 0.60 10/17/2018 ABC 0.00 10/17/2018 BASOPHILS 1 09/27/2018 MCV 92.6 10/17/2018 MCHC 32.3 10/17/2018 MPV 8.9 10/17/2018 RDW 17.8 10/17/2018 , Coagulation: No results found for: PT, PTT, INR, General Chemistry: Lab Results Component Value Date NA 135 10/17/2018 K 4.2 10/17/2018 CL 101 10/17/2018 GAP 3 10/17/2018 BUN 8 10/17/2018 CR 0.74 10/17/2018 GLU 247 10/17/2018 CA 7.8 10/17/2018 ALBUMIN 2.7 10/17/2018 OBSCA 0.94 10/13/2018 MG 2.0 10/12/2018 TOTBILI 0.2 10/17/2018 and Enzymes: Lab Results Component Value Date AST 27 10/17/2018 ALT 22 10/17/2018 ALKPHOS 109 10/17/2018 Point of Care Testing (Last 24 hours) Glucose: (!) 247 (10/17/18 0350) POC Glucose (Download): (!) 149 (10/16/18 2300) Radiology and other Diagnostics Review: No radiology Israel Orourke MD Pager [phone] SERVICE WAITER/WAITRESS * Jeny Rodriguez, MEDICAL MANAGEMENT SPECIALIST-APPETIZER PACKER - 10/16/2018 1:47 PM ROOM SERVICE WAITER/WAITRESS Subjective: No acute events O/N. Having issues with pain states she was nauseated this am and that some changes to her regimen have been made. Objective: Blood pressure 140/67, pulse 88, temperature 37.3 C (99.1 F), height 165.1 cm (65"), weight 67.2 kg (148 lb 2.4 oz), SpO2 97 %. General: AAOx3, NAD Cardiac: RRR Respirations: Unlabored Extremities: left lower extremity compartments soft, flexes/extends toes, SILT, distal cap refill < 2 sec, CAM boot in place Incisions: Dressings clean dry and intact No results for input(s): PTT, INR in the last 72 hours. CBC w/Diff Lab Results Component Value Date/Time WBC 10.1 10/16/2018 04:28 AM HGB 9.2 (L) 10/16/2018 04:28 AM HCT 27.8 (L) 10/16/2018 04:28 AM PLTCT 158 10/16/2018 04:28 AM Basic Metabolic Profile Lab Results Component Value Date/Time NA 137 10/16/2018 04:28 AM K 3.3 (L) 10/16/2018 04:28 AM CL 100 10/16/2018 04:28 AM CO2 29 10/16/2018 04:28 AM GAP 8 10/16/2018 04:28 AM Lab Results Component Value Date/Time BUN 6 (L) 10/16/2018 04:28 AM CR 0.71 10/16/2018 04:28 AM GLU 167 (H) 10/16/2018 04:28 AM A/P: 58 y.o. F w/ L tib/fib fracture with extension into the medial mal/plafond s/p IMN, medial mal ORIF 10/14 -PT/OT -weight bearing: WBAT in CAM boot -DVT ppx: per primary, ok for daily 325 mg ASA from ortho standpoint -pain control and medical management per primary team -Follow up with Dr. Manley scheduled for 10/30/18 -Dressings to remain in place until follow up appointment. If soiled or saturated may change with dry gauze and tape. Future Appointments Date Time Provider Department Center 10/30/2018 12:00 PM Paul Manley MD ORTHOCL [facility] Orthoped 11/22/2018 3:00 PM Gunnar Kirk MD IMGASTRO [facility] IM 01/08/2019 10:00 AM Shirley Lee RN QVIMDIAB [facility] IM 01/15/2019 2:00 PM CC PHLEBOTOMY CHAIR [facility] Exam 01/15/2019 3:[address] MD [facility] Exam Should you have a question or concern regarding your orthopedic care or injuries please call our nurse's line at [phone]. Our clinic is located on the 2nd floor of the Orthopedic Building on [facility], across from the [place] [facility]. The clinic address is [address] [place] [address] Jeny Rodriguez NP-C [id number] ([facility] [id number]) SERVICE WAITER/WAITRESS * Sandra Rowan APRN - 10/16/2018 11:30 AM ROOM SERVICE WAITER/WAITRESS Nursing Pain Management Follow-Up Suggested Plan for the Day: The primary team is responsible for placing all orders. No changes to suggest, although may want to DC IV morphine as she has not required any in over 24 hours. Anticipated D/C Planning: Possible d/c to SNF. S: Patient says, "I guess it's a little better." Clinically Aligned Pain Assessment: Comfort/pain: uncomfortable Change in pain: Getting better Pain Control: Partially effective Function: Pain keeps me from doing most of what I need to do Sleep: Awake with occasional pain O: Oral morphine equivalent used over past 24 hours (7:01 AM - 7:00 AM)- ~ 81 mg Current Analgesic Regimen: Acetaminophen 650 mg PO every 6 hours Morphine oral solution 7.5-15 mg PO every 4 hours PRN pain Morphine 2-4 mg IV every 6 hours PRN pain Impression: Pt sitting up in chair with spouse at bedside. She reports "a little" improvement in pain with change to regimen. She is more talkative today , and clinically appears improved. Nausea this morning, but she was eating some oatmeal when we visited. Likely d/c to facility soon. Would continue the pain regimen for now. Sandra Rowan APRN, ACNS-BC, RN-BC, AP-PMN Clinical Nurse Specialist, Pain Management *[phone] After hours pager *[phone] SERVICE WAITER/WAITRESS * Johanna Joel, RD - 10/16/2018 11:10 AM ROOM SERVICE WAITER/WAITRESS CLINICAL NUTRITION Clinical Nutrition Assessment Summary NAME:Chelsea Castillo :1960 AGE: 58 y.o. ADMISSION DATE: 10/12/2018 DAYS ADMITTED: LOS: 4 days Nutrition Assessment of Patient: BMI Categories Adult: Acceptable: 18.5-24.9 Malnutrition Assessment: Does not meet criteria Current Oral Intake: Inadequate Estimated Calorie Needs: 5597-3376 (25-30 kcal/kg usual weight of 138# (62.7kg). ) Estimated Protein Needs: 75-94 (1.2-1.5 g/kg) Oral Diet Order: Diabetic 2210-5522 Kcal/day (60 g Carb/meal, 30 g Carb/HS snack ) Comments: 58-year old female with PMH of DM 1 (HbA1c 8.5 from 10/08), DM neuropathy, recent diagnosis of SLL/CLL, hypothyroidism, orthostatic hypotension, intractable nausea and vomiting, cyclic vomiting syndrome, anxiety/depression, chronic abdominal pain, gastroparesis, ? epilepsy with recent admit to ED for diarrhea. She tested negative for C-diff at that time. She was discharged from hospitalist service s/p treatment for diarrhea but presented back to same day s/p fall resulting in left tibia/fibula fracture. She ate 80-100% meals on 10/13 per pier worker but has had poor po since because of nausea and vomiting (3L emesis yesterday). Per patient, diarrhea is resolved. On 10/14 she had open treatment of tibia and IMN. She reported she was not familiar with diabetic diet guidelines despite having been diabetic since age 15. I discussed need for knowing how many carbs are in foods to take effective insulin. I also discussed symptom management for nausea and vomiting, diarrhea, and gastroparesis including low concentrated sweets, low fat, moderate fiber, and small meals t/o day. Handouts provided on carb amounts in foods. Cancer treatment booklet provided for symptom management. Patient reports her usual weight as 138# (62.7kg). Admit weight was 67.2kg. RD to follow 2/2 poor po intake with nausea and to review diet education as needed. Recommendation: Current diet order is appropriate. Pt may benefit from 6 small meals/day with 30 grams carb per meal. Intervention / Plan: See above comment. Educations provided. RD to monitor po intake and tolerance, wt and labs. Nutrition Diagnosis: Altered GI function Etiology: gastroparesis, cyclic vomiting Signs & Symptoms: poor po intake with nausea and vomiting. Increased nutrient needs, specify: (protein) Etiology: demand for healing Signs & Symptoms: fracture, surgery. Goals: Patient to consume >50% of meals Time Frame: Within [address],LD Pager # [phone] SERVICE WAITER/WAITRESS * Brea Garcia OT - 10/16/2018 9:34 AM ROOM SERVICE WAITER/WAITRESS OCCUPATIONAL THERAPY PROGRESS NOTE Patient Name: Chelsea Castillo Room/Bed: [place] [address] Admitting Diagnosis: Past Medical History: Diagnosis Date Arthritis Diabetes mellitus type 1 (HCC) Osteoporosis Stomach problems Thyroid disorder Mobility Progressive Mobility Level: Walk in room Distance Walked (feet): 6 ft Level of Assistance: Assist X1 Assistive Device: Walker Time Tolerated: 11-30 minutes Activity Limited By: Pain Subjective Pertinent Dx per Physician: 58yoF w/ PMH of CLL on active tx, DM1, migraine ROWE, hypothyroid, , chronic abd pain, anxiety and depression, seizure d/o, chronic abd pain w/ gastroparesis, arthritis on immunosuppression, who is admitted w/ tib-fib fracture, 5 metatarsal fracture after fall at home after discharge from [facility]. Precautions: Standard;Falls L LE Precautions: LLE WBAT: Weight Bearing As Tolerated;L Cam Boot Pain / Complaints: Patient agrees to participate in therapy;Patient premedicated Pain Location: Left;Foot Pain Level Current: 9 Comments: Patient left sitting upright in chair. Chair alarm activated. All needs met. Objective Psychosocial Status: Participates in Therapy with Encouragement;Willing and Cooperative to Participate Persons Present: Physical Therapist Home Living Type of Home: House Home Layout: One Level Bathroom Shower / Tub: Tub/Shower Unit Home Equipment: Walker Comment: Patient planning to discharge to sister's home. Documentation reflective of that set-up. Prior Function Level Of [place]: Independent with ADLs and functional transfers; Independent with homemaking w/ ambulation Lives With: Spouse Other Function Comments: Patient reports spouse will be available to provide assistance as needed upon discharge. ADL's Where Assessed: Chair (BSC) Eating Assist: Stand By Assist Eating Deficits: Setup;Beverage Management Grooming Assist: Stand By Assist Grooming Deficits: Setup;Brushing Hair Toileting Assist: Minimal Assist Toileting Deficits: Bedside Commode (Hospital Gown Management) Functional Transfer Assist: Minimal Assist, sit> stand, ambulating room with RW to/ from chair > BSC Functional Transfer Deficits: Steadying;Supervision/Safety;Verbal Cueing; Increased Time to Complete Cognition Cognition Comment: Increase anxiety to complete functional tasks Assessment Assessment: Decreased ADL Status;Decreased Endurance;Decreased Self-Care Trans; Decreased High-Level ADLs Prognosis: Good;w/ Family Goal Formulation: Patient Comments: Patient limited by pain. Anticipate as pain improves patient will progress quickly even with NWB status of LLE. AM-PAC 6 Clicks Daily Activity Inpatient Putting on and taking off regular lower body clothes?: A Lot Bathing (Including washing, rinsing, drying): A Lot Toileting, which includes using toilet, bedpan, or urinal: A Little Putting on and taking off regular upper body clothing: None Taking care of personal grooming such as brushing teeth: None Eating meals?: None Daily Activity Raw Score: 19 Standardized (t-scale) score: 40.22 CMS 0-100% Score: 42.8 CMS G Code Modifier: CK Plan Progress: Progressing Toward Goals OT Frequency: 5x/week OT Plan for Next Visit: LE dressing, toilet transfer, ADL Goals Patient Will Perform Grooming: Standing at Sink;w/ Stand By Assist Patient Will Perform LE Dressing: w/ Minimum Assist Patient Will Perform Toileting: w/ Modified Independent Functional Transfer Goals Pt Will Perform All Functional Transfers: w/ Stand By Assist OT Discharge Recommendations OT Discharge Recommendations: Inpatient Setting Equipment Recommendations: Too early to be determined Recommend ongoing assistance for: Toileting, Bathing, Dressing, Transfers Therapist: Brea Garcia OT Date: 10/16/2018 SERVICE WAITER/WAITRESS * Kierra Fraire - 10/16/2018 9:21 AM ROOM SERVICE WAITER/WAITRESS PHYSICAL THERAPY PROGRESS NOTE MOBILITY: Mobility Progressive Mobility Level: Walk in room Distance Walked (feet): 3 ft Level of Assistance: Assist X1 Assistive Device: Walker Time Tolerated: 11-30 minutes Activity Limited By: Pain (Anxiety) SUBJECTIVE: Subjective Significant hospital events: PMH of Type I DM, Diabetic neuropathy, recent diagnosis of SLL/CLL, Hypothyroidism, Orthostatic hypotension, Intractrable nausea/vomiting, cyclic vomiting syndrome, anxiety/depression, chronic abdominal pain, gastroparesis ?Epilepsyon Tegretronnie who was just discharged from hospitalist service after being treated for diarrhea, now presented post fall and was found to have left tib-fib fracture. Plan to have OR 10/14. Mental / Cognitive Status: Alert;Cooperative;Anxious Persons Present: Occupational Therapist Pain: Patient complains of pain;Patient does not rate pain Pain Location: Left;Leg (Stomach) Pain Interventions: Patient agrees to participate in therapy;Nursing staff notified of patient's pain level;Treatment altered to patient's pain tolerance; Patient assisted into position of comfort L LE Precautions: LLE WBAT: Weight Bearing As Tolerated;L Cam Boot (CAM Boot All Times) Ambulation Assist: Independent Mobility at Household Level without Device Patient Owned Equipment: None Home Situation: Lives with Family Type of Home: House Entry Stairs: 3-5 Stairs;Rail on 1 Side In-Home Stairs: Able to Live on One Level BED MOBILITY/TRANSFERS: Bed Mobility: Supine to Sit: Minimal Assist;Assist with L LE;Head of Bed Elevated Transfer Type: Sit to/from Stand Transfer: Assistance Level: From;Bed;To;Bed Side Chair;Moderate Assist Transfer: Assistive Device: Roller Walker Transfers: Type Of Assistance: For Safety Considerations;For Balance;Verbal Cues to reach back with R hand prior to standing/sitting. End Of Activity Status: Up in Chair (working with OT) Pt did not back up to chair before attempting to sit (still about a foot away from chair seat), requiring verbal cues and moderate assistance to safely sit in chair. When asked why she did not back up all the way, pt replied "I don't know". GAIT: Gait Gait Distance: 3 feet Gait: Assistance Level: Minimal Assist Gait: Assistive Device: Roller Walker Gait: Descriptors: Pace: Slow;Antalgic;Decreased stance time LLE Comments: required verbal cues to extend L knee before stepping with RLE to prevent knee buckling. ACTIVITY/EXERCISE: Activity / Exercise Exercise: Seated;LLE;Assisted ROM (knee extension) Exercise Repetitions: 10 ASSESSMENT/PROGRESS: Assessment/Progress Impaired Mobility Due To: Pain;Safety Concerns;Impaired Balance;Post Surgical Changes AM-PAC 6 Clicks Basic Mobility Inpatient Turning from your back to your side while in a flat bed without using bed rails : A Little Moving from lying on your back to sitting on the side of a flatbed without using bedrails : A Little Moving to and from a bed to a chair (including a wheelchair): A Lot Standing up from a chair using your arms (e.g. wheelchair, or bedside chair): A Lot To walk in hospital room: A Little Climbing 3-5 steps with a railing: Total Raw Score: 14 Standardized (T-scale) Score: 35.55 Basic Mobility [facility] 0-100%: 53.86 [facility] G Code Modifier for Basic Mobility: CK GOALS: Goals Goal Formulation: With Patient Time For Goal Achievement: 5 days, To, 7 days Pt Will Go Supine To/From Sit: w/ Minimal Assist Pt Will Transfer Sit to Stand: w/ Minimal Assist Pt Will Ambulate: 1-10 Feet, w/ Walker, w/ Minimal Assist Pt Will Go Up / Down Stairs: (to set when appropriate. ) PLAN: Plan Treatment Interventions: Mobility Training;Endurance Training;Balance Activities ;Family Training Plan Frequency: 5-7 Days per Week PT Plan for Next Visit: Progress short distance ambulation with chair follow, bed mobility with bed flat/no rail, repeated sit to stand transfers for practice sequencing and safety. RECOMMENDATIONS: PT Discharge Recommendations PT Discharge Recommendations: Inpatient Setting Equipment Recommendations: Too early to be determined Therapist: Kierra Fraire Date: 10/16/2018 SERVICE WAITER/WAITRESS * Israel Orourke MD - 10/16/2018 8:39 AM ROOM SERVICE WAITER/WAITRESS General Progress Note Name: Chelsea Castillo Today's Date: 10/16/2018 Admission Date: 10/12/2018 LOS: 4 days Assessment/Plan: Active Problems: Type 1 diabetes, uncontrolled, with neuropathy (HCC) Chronic abdominal pain Immunosuppression due to drug therapy Acquired hypothyroidism CLL (chronic lymphocytic leukemia) (HCC) Tibia/fibula fracture Anxiety and depression Seizure disorder (HCC) 58yoF w/ PMH of CLL on active tx, DM1, migraine ROWE, hypothyroid, , chronic abd pain, anxiety and depression, seizure d/o, chronic abd pain w/ gastroparesis, arthritis on immunosuppression, who is admitted w/ tib-fib fracture, 5 metatarsal fracture after fall at home after discharge from [facility]. Changes made to today's assessment and plan are indicated in bold. L tib fib fracture, L 5th metatarsal fracture - ortho consulted on admit, splint was applied in the ED - s/p surgical fixation w/ IM nail 10/14 - WBAT on LLE in CAM - received 24hrs post op Ancef - pain mgmt consulted; will schedule Tylenol, change oxycodone to morphine solution, cont IV morphine for breakthrough - cont PT, OT Chronic abd pain, N/V - w/u to date has been unrevealing - cont PRN imodium, bentyl, sucralfate - cont lyrica - cont PPI - scopolamine patch DM1 - a1c=8.5% - cont lantus 13u QHS, aspart 5u TID AC - [facility] CLL - following w/ heme, currently only have surveillance labs Orthostatic hypotension - cont florinef MDD, anxiety - cont EDGE BONDER cymbalta, PRN BID Valium - decreased ambien to 5mg w/ narcotics ?seizure d/o - cont tegretol ?inflammatory arthritis - cont plaquenil Hypothyroid - cont synthroid FEN: no IVF, replace lytes PRN, ADA diet Ppx: 325mg Aspirin Code: Full Dispo: cont inpt admit, pain is better controlled. Still w/ N/V. Cont to work w/ PT, plan for d/c to [facility] Sunday. Subjective Chelsea Julien Castillo is a 58 y.o. female. Patient w/o acute events overnight. Started having N/V again around 0800 this morning. Is also reporting epigastric pain, she is unable to say if this is different from her chronic GI issues. Did walk a little and sat on the side of the bed yesterday, this did cause her pain in her LLE to be a little worse. Overall pain is better. ROS: neg for fevers, chills, dyspnea, chest pain, palpitations Medications Scheduled Meds: acetaminophen (TYLENOL) tablet 650 mg 650 mg Oral Q6H* aspirin tablet 325 mg 325 mg Oral QDAY atorvastatin (LIPITOR) tablet 40 mg 40 mg Oral QDAY carBAMazepine (TEGRETOL) tablet 400 mg 400 mg Oral QDAY cetirizine (ZYRTEC) tablet 10 mg 10 mg Oral QAM8 cholecalciferol (VITAMIN D-3) tablet 5,000 Units 5,000 Units Oral QDAY dicyclomine (BENTYL) capsule 10 mg 10 mg Oral ACHS duloxetine DR (CYMBALTA) capsule 90 mg 90 mg Oral QDAY ferrous gluconate tablet 324 mg 324 mg Oral QDAY w/breakfast fludrocortisone (FLORINEF) tablet 0.3 mg 0.3 mg Oral QDAY fluticasone (FLONASE) nasal spray 1 spray 1 spray Each Nostril QDAY hydroxychloroquine (PLAQUENIL) tablet 200 mg 200 mg Oral QDAY insulin aspart U-100 (NOVOLOG FLEXPEN) injection PEN 0-14 Units 0-14 Units Subcutaneous ACHS insulin aspart U-100 (NOVOLOG FLEXPEN) injection PEN 5 Units 5 Units Subcutaneous TID w/ meals insulin glargine (LANTUS SOLOSTAR, BASAGLAR) injection PEN 12 Units 12 Units Subcutaneous QHS(22) levothyroxine (SYNTHROID) tablet 175 mcg 175 mcg Oral QDAY 30 min before breakfast montelukast (SINGULAIR) tablet 10 mg 10 mg Oral QHS pantoprazole DR (PROTONIX) tablet 40 mg 40 mg Oral QDAY pentosan polysulfate sodium (ELMIRON) capsule 100 mg 100 mg Oral TID before meals potassium chloride SR (K-DUR) tablet 10 mEq 10 mEq Oral QDAY potassium chloride SR (K-DUR) tablet 60 mEq 60 mEq Oral ONCE pregabalin (LYRICA) capsule 150 mg 150 mg Oral BID pyridoxine (VITAMIN B-6) tablet 50 mg 50 mg Oral QDAY scopolamine (TRANSDERM-SCOP) patch 1 patch 1 patch Transdermal Q72H* SUCRALFATE 1gm/10ml (Patients own medication) 1 g Oral ACHS vitamins, B complex tablet 1 tablet 1 tablet Oral QDAY vitamins, multiple tablet 1 tablet 1 tablet Oral QDAY Continuous Infusions: PRN and Respiratory Meds:acetaminophen/lidocaine/antacid DS(#) QID PRN, ALPRAZolam BID PRN, hydrALAZINE Q6H PRN, loperamide QID PRN, morphine Q4H PRN, morphine injection syringe Q6H PRN, ondansetron (ZOFRAN) IV Q4H PRN, prochlorperazine Q6H PRN, tiZANidine Q6H PRN, zolpidem QHS PRN Objective Vital Signs: Last Filed Vital Signs: 24 Hour Range BP: 116/60 (10/16 619) Temp: 37.2 C (99 F) (10/16 619) Pulse: 86 (10/16 619) Respirations: 18 PER MINUTE (10/16 619) SpO2: 96 % (10/16 619) O2 Delivery: None (Room Air) (10/16 619) BP: (116-157)/(60-82) Temp: [37.1 C (98.7 F)-37.3 C (99.2 F)] Pulse: [86-99] Respirations: [16 PER MINUTE-18 PER MINUTE] SpO2: [93 %-98 %] O2 Delivery: None (Room Air) Intensity Pain Scale (Self Report): 9 (10/16/18 0410) Vitals: 10/12/18 2131 Weight: 67.2 kg (148 lb 2.4 oz) Intake/Output Summary: (Last 24 hours) Intake/Output Summary (Last 24 hours) at 10/16/18 0839 Last data filed at 10/16/18 0815 Gross per 24 hour Intake 0 ml Output 2250 ml Net -2250 ml Stool Occurrence: 1 Physical Exam General: Awake, alert, flat affect Head: Normocephalic, without obvious abnormality, atraumatic. Eyes: Conjunctivae/corneas clear. Lungs: CTAB, no rales, no wheezing. Heart: tachy, reg rhythm, no MRG. Abdomen: Soft, TTP in epigastrium w/o rebound or guarding. Bowel sounds normal. Extremities: LLE in CAM, SILT Pulses: 2+ radial pulses b/l Lab Review Hematology: Lab Results Component Value Date HGB 9.2 10/16/2018 HCT 27.8 10/16/2018 PLTCT 158 10/16/2018 WBC 10.1 10/16/2018 NEUT 49 10/16/2018 ANC 4.90 10/16/2018 LYMPH 53 09/27/2018 ALC 3.10 10/16/2018 EVELYN 7 10/16/2018 AMC 0.70 10/16/2018 ABC 0.10 10/16/2018 BASOPHILS 1 09/27/2018 MCV 90.0 10/16/2018 MCHC 33.1 10/16/2018 MPV 9.5 10/16/2018 RDW 16.9 10/16/2018 , Coagulation: No results found for: PT, PTT, INR, General Chemistry: Lab Results Component Value Date NA 137 10/16/2018 K 3.3 10/16/2018 CL 100 10/16/2018 GAP 8 10/16/2018 BUN 6 10/16/2018 CR 0.71 10/16/2018 GLU 167 10/16/2018 CA 8.0 10/16/2018 ALBUMIN 2.9 10/16/2018 OBSCA 0.94 10/13/2018 MG 2.0 10/12/2018 TOTBILI 0.3 10/16/2018 and Enzymes: Lab Results Component Value Date AST 32 10/16/2018 ALT 24 10/16/2018 ALKPHOS 97 10/16/2018 Point of Care Testing (Last 24 hours) Glucose: (!) 167 (10/16/18 0428) POC Glucose (Download): (!) 161 (10/16/18 207) Radiology and other Diagnostics Review: No radiology Israel Orourke MD Pager [phone] SERVICE WAITER/WAITRESS * Karma Boothe MD - 10/15/2018 10:34 PM ROOM SERVICE WAITER/WAITRESS Subjective: No acute events O/N. Having issues with pain and nausea/vomitting when seen this afternoon. Objective: Blood pressure 125/69, pulse 93, temperature 37.2 C (98.9 F), height 165.1 cm (65"), weight 67.2 kg (148 lb 2.4 oz), SpO2 95 %. General: AAOx3, NAD Cardiac: RRR Respirations: Unlabored Extremities: left lower extremity compartments soft, flexes/extends toes, SILT, distal cap refill < 2 sec, CAM boot in place Incisions: Dressings clean dry and intact No results for input(s): PTT, INR in the last 72 hours. CBC w/Diff Lab Results Component Value Date/Time WBC 11.5 (H) 10/15/2018 04:02 AM HGB 8.5 (L) 10/15/2018 04:02 AM HCT 25.5 (L) 10/15/2018 04:02 AM PLTCT 108 (L) 10/15/2018 04:02 AM Basic Metabolic Profile Lab Results Component Value Date/Time NA 138 10/15/2018 04:02 AM K 3.7 10/15/2018 04:02 AM CL 103 10/15/2018 04:02 AM CO2 28 10/15/2018 04:02 AM GAP 7 10/15/2018 04:02 AM Lab Results Component Value Date/Time BUN 7 10/15/2018 04:02 AM CR 0.71 10/15/2018 04:02 AM GLU 242 (H) 10/15/2018 04:02 AM A/P: 58 y.o. F w/ L tib/fib fracture with extension into the medial mal/plafond s/p IMN, medial mal ORIF 10/14 -PT/OT -weight bearing: WBAT in CAM boot -DVT ppx: per primary, ok for daily 325 mg ASA from ortho standpoint -pain control and medical management per primary team -Follow up with Dr. Manley scheduled for 10/30/18 -Dressings to remain in place until follow up appointment. If soiled or saturated may change with dry gauze and tape. Please page Jeny Rodriguez or Dayo Chan with questions Karma Boothe MD Pager [phone] SERVICE WAITER/WAITRESS * Brea Garcia, OT - 10/15/2018 1:42 PM ROOM SERVICE WAITER/WAITRESS OCCUPATIONAL THERAPY PROGRESS NOTE Patient Name: Chelsea Castillo Room/Bed: [place] [address] Mobility Progressive Mobility Level: Stand Level of Assistance: Assist X1 Assistive Device: Walker Time Tolerated: 11-30 minutes Activity Limited By: Pain;Nausea Subjective Pertinent Dx per Physician: 58yoF w/ PMH of CLL on active tx, DM1, migraine ROWE, hypothyroid, , chronic abd pain, anxiety and depression, seizure d/o, chronic abd pain w/ gastroparesis, arthritis on immunosuppression, who is admitted w/ tib-fib fracture, 5 metatarsal fracture after fall at home after discharge from [facility]. Precautions: Standard;Falls L LE Precautions: LLE WBAT: Weight Bearing As Tolerated;L Cam Boot (CAM Boot All Times) Pain / Complaints: Patient agrees to participate in therapy;Patient premedicated Pain Location: Left;Foot Pain Level Current: (Did not rate) Comments: Patient left supine in bed. Nursing and family present in room. All needs met at end of session. Increase nausea & LLE pain limits patient's ability to participate in ADL tasks fully. Per PT discussion with SW, patient indicating interest in discharging to home environment Objective Psychosocial Status: Participates in Therapy with Encouragement Persons Present: Physical Therapist;Family;Nursing Staff Home Living Type of Home: House Home Layout: One Level Bathroom Shower / Tub: Tub/Shower Unit Home Equipment: Walker Comment: Patient planning to discharge to sister's home. Documentation reflective of that set-up. Prior Function Level Of [place]: Independent with ADLs and functional transfers; Independent with homemaking w/ ambulation Lives With: Spouse Other Function Comments: Patient reports spouse will be available to provide assistance as needed upon discharge. ADL's Where Assessed: Edge of Bed UE Dressing Assist: Moderate Assist UE Dressing Deficits: Setup;Pull Around Back;Thread LUE (Hospital Gown, EOB) LE Dressing Assist: Total Assist (Clinical Reasoning) Toileting Assist: (Utilizes BSC (stand pivot) with nursing prior to entering room) Functional Transfer Assist: Minimal assistance, supine> sit: moderate A for L leg placement, sit> stand: minimal assistance (steadying), x1 step forward utilizing RW (verbal cues for appropriate weight bearing in LLE), x4 side steps to head of bed. Functional Transfer Deficits: Verbal Cueing;Steadying;Supervision/Safety; Increased Time to Complete Comments: Increase anxiety, nausea, and LLE pain to complete functional mobility tasks. Cognition Cognition Comment: Increase anxiety to complete functional tasks Assessment Assessment: Decreased ADL Status;Decreased Endurance;Decreased Self-Care Trans; Decreased High-Level ADLs Prognosis: Good;w/ Family Goal Formulation: Pt/family Comments: Patient limited by pain. Anticipate as pain improves patient will progress quickly even with NWB status of LLE. AM-PAC 6 Clicks Daily Activity Inpatient Putting on and taking off regular lower body clothes?: A Lot Bathing (Including washing, rinsing, drying): A Lot Toileting, which includes using toilet, bedpan, or urinal: A Lot Putting on and taking off regular upper body clothing: None Taking care of personal grooming such as brushing teeth: None Eating meals?: None Daily Activity Raw Score: 18 Standardized (t-scale) score: 38.66 CMS 0-100% Score: 46.65 CMS G Code Modifier: CK Plan OT Frequency: 5x/week OT Plan for Next Visit: LE dressing, toilet transfer, Further Evaluation Goals Pt Will Tolerate Further ADL Evaluation: w/in1-2 sessions ADL Goals Patient Will Perform Grooming: Standing at Sink;w/ Stand By Assist Patient Will Perform LE Dressing: w/ Minimum Assist Patient Will Perform Toileting: w/ Modified Independent Functional Transfer Goals Pt Will Perform All Functional Transfers: w/ Stand By Assist OT Discharge Recommendations OT Discharge Recommendations: Inpatient Setting Equipment Recommendations: Too early to be determined Recommend ongoing assistance for: Toileting, Bathing, Dressing, Transfers Therapist: Brea Garcia OT Date: 10/15/2018 SERVICE WAITER/WAITRESS * Michael Martin, PT - 10/15/2018 1:40 PM ROOM SERVICE WAITER/WAITRESS PHYSICAL THERAPY PROGRESS NOTE MOBILITY: Mobility Progressive Mobility Level: Stand Level of Assistance: Assist X1 Assistive Device: Walker Time Tolerated: 11-30 minutes Activity Limited By: Pain;Nausea;Other (Comment) (Anxiety) SUBJECTIVE: Subjective Significant hospital events: PMH of Type I DM, Diabetic neuropathy, recent diagnosis of SLL/CLL, Hypothyroidism, Orthostatic hypotension, Intractrable nausea/vomiting, cyclic vomiting syndrome, anxiety/depression, chronic abdominal pain, gastroparesis ?Epilepsyon Tegretol who was just discharged from hospitalist service after being treated for diarrhea, now presented post fall and was found to have left tib-fib fracture. Plan to have OR 10/14. Mental / Cognitive Status: Alert;Cooperative;Anxious Persons Present: Family;Nursing Staff;Occupational Therapist Pain: Patient complains of pain;Patient does not rate pain Pain Location: Left;Leg (Stomach) Pain Description: Sharp Pain Interventions: Patient agrees to participate in therapy with modifications to session;Nursing staff notified of patient's pain level L LE Precautions: LLE WBAT: Weight Bearing As Tolerated;L Cam Boot (CAM Boot All Times) Ambulation Assist: Independent Mobility at Household Level without Device Patient Owned Equipment: None Home Situation: Lives with Family Type of Home: House Entry Stairs: 3-5 Stairs;Rail on 1 Side In-Home Stairs: Able to Live on One Level Comments: Patient reports that she has been experiencing emesis and nausea for the majority of the day. She is agreeable to PT/OT encounter this date. Patient notably anxious about performing functional mobility this date. STRENGTH: Strength Strength Position Assessed: Seated Overall Strength: WFL Strength Unable To Assess: Due to Pain/Surgery BED MOBILITY/TRANSFERS: Bed Mobility/Transfers Bed Mobility: Supine to Sit: Minimal Assist;x2 People;Assist with L LE Bed Mobility: Sit to Supine: Minimal Assist;x2 People;Assist with L LE Comments: Patient requires second staff assistance for stabilizing LLE during bed mobility this date, but otherwise completes transfer with minimal assistance. Transfer Type: Sit to/from Stand (x2 repetitions this date) Transfer: Assistance Level: To/From;Bed;Minimal Assist;x2 People Transfer: Assistive Device: Roller Walker Transfers: Type Of Assistance: For Safety Considerations;For Balance;Verbal Cues ;To Maintain Precautions End Of Activity Status: Up in Chair;Nursing Notified;Instructed Patient to Request Assist with Mobility;Instructed Patient to Use Call Light Comments: Patient reports significant L leg and stomach pain/nausea this date and declines further activity this afternoon. RN in room with patient at end of our encounter. ACTIVITY/EXERCISE: Activity / Exercise Sit Edge Of Bed: 12 minutes Sit Edge Of Bed Assist: Stand By Assist Stand At Bedside : 1 minutes Stand At Bedside Assist: Minimal Assist;x2 People Weight Shift Repetitions: 5 repetitions Weight Shift Assist: Minimal Assist;Verbal Cues Required/Provided Comments: Patient trials weight-shifting to bilateral sides this date, but unable to place significant weight through LLE this date (difficulty lowering heel to the floor to fully place weight this afternoon). EDUCATION: Education Persons Educated: Patient/Family Patient Barriers To Learning: Pain;Anxiety Interventions: Repetition of Instructions;Family Education;Demonstration Provided Teaching Methods: Verbal Instruction;Demonstration Patient Response: More Instruction Required Topics: Up with Assist Only;Safety Awareness;Plan/Goals of PT Interventions;Use of Assistive Device/Orthosis;Mobility Progression;Precautions;Equipment Recommendations;Recommend Continued Therapy ASSESSMENT/PROGRESS: Assessment/Progress Impaired Mobility Due To: Medical Status Limitation Assessment/Progress: Should Improve w/ Continued PT Comments: Patient primarily limited by pain, nausea, and anxiety this date. Has been experiencing increased emesis this date (RN/team aware). Expected to continue to progress as these issues begin to improve. AM-PAC 6 Clicks Basic Mobility Inpatient Turning from your back to your side while in a flat bed without using bed rails : A Little Moving from lying on your back to sitting on the side of a flatbed without using bedrails : A Little Moving to and from a bed to a chair (including a wheelchair): A Lot Standing up from a chair using your arms (e.g. wheelchair, or bedside chair): A Lot To walk in hospital room: A Lot Climbing 3-5 steps with a railing: Total Raw Score: 13 Standardized (T-scale) Score: 33.99 Basic Mobility CMS 0-100%: 57.65 CMS G Code Modifier for Basic Mobility: CK GOALS: Goals Goal Formulation: With Patient Time For Goal Achievement: 5 days, To, 7 days Pt Will Go Supine To/From Sit: w/ Minimal Assist Pt Will Transfer Sit to Stand: w/ Minimal Assist Pt Will Ambulate: 1-10 Feet, w/ Walker, w/ Minimal Assist Pt Will Go Up / Down Stairs: (to set when appropriate. ) PLAN: Plan Treatment Interventions: Mobility Training;Endurance Training;Balance Activities ;Family Training Plan Frequency: 5-7 Days per Week PT Plan for Next Visit: Progress gait distance with chair follow as able. Trial active transfer to bedside chair and progress upright activity tolerance as able. RECOMMENDATIONS: PT Discharge Recommendations PT Discharge Recommendations: Inpatient Setting Equipment Recommendations: Too early to be determined Therapist: Michael Martin, PT, DPT Date: 10/15/2018 SERVICE WAITER/WAITRESS * Israel Orourke MD - 10/15/2018 8:39 AM ROOM SERVICE WAITER/WAITRESS General Progress Note Name: Chelsea Castillo Today's Date: 10/15/2018 Admission Date: 10/12/2018 LOS: 3 days Assessment/Plan: Active Problems: Type 1 diabetes, uncontrolled, with neuropathy (HCC) Chronic abdominal pain Immunosuppression due to drug therapy Acquired hypothyroidism CLL (chronic lymphocytic leukemia) ([facility]) Tibia/fibula fracture Anxiety and depression Seizure disorder (HCC) 58yoF w/ PMH of CLL on active tx, DM1, migraine ROWE, hypothyroid, , chronic abd pain, anxiety and depression, seizure d/o, chronic abd pain w/ gastroparesis, arthritis on immunosuppression, who is admitted w/ tib-fib fracture, 5 metatarsal fracture after fall at home after discharge from [facility]. Changes made to today's assessment and plan are indicated in bold. L tib fib fracture, L 5th metatarsal fracture - ortho consulted on admit, splint was applied in the ED - s/p surgical fixation w/ IM nail 10/14 - WBAT on LLE in CAM - received 24hrs post op Ancef - pain mgmt consulted; will schedule Tylenol, change oxycodone to morphine solution, cont IV morphine for breakthrough Chronic abd pain, N/V - w/u to date has been unrevealing - cont PRN imodium, bentyl, sucralfate - cont lyrica - cont PPI - scopolamine patch ordered DM1 - a1c=8.5% - cont lantus 13u QHS, aspart 5u TID AC - [facility] CLL - following w/ heme, currently only have surveillance labs Orthostatic hypotension - cont florinef MDD, anxiety - cont EDGE BONDER cymbalta, PRN BID Valium - decreased ambien to 5mg w/ narcotics ?seizure d/o - cont tegretol ?inflammatory arthritis - cont plaquenil Hypothyroid - cont synthroid FEN: no IVF, replace lytes PRN, ADA diet Ppx: lovenox Code: Full Dispo: cont inpt admit, pain mgmt consulted. Will need to start working w/ PT. Will require SNF at discharge. Will need to taper opiates at discharge. Subjective Chelsea Julien Castillo is a 58 y.o. female. Patient w/o acute events overnight. Having worsening of her chronic abd pain and N/V this morning. She is unable to state if this is different from her usual GI symptoms. Pain is not well controlled, reports oxycodone isn't helping and IV morphine only helps for 15 minutes. ROS: neg for fevers, chills, dyspnea, chest pain, palpitations Medications Scheduled Meds: atorvastatin (LIPITOR) tablet 40 mg 40 mg Oral QDAY carBAMazepine (TEGRETOL) tablet 400 mg 400 mg Oral QDAY cetirizine (ZYRTEC) tablet 10 mg 10 mg Oral QAM8 cholecalciferol (VITAMIN D-3) tablet 5,000 Units 5,000 Units Oral QDAY dicyclomine (BENTYL) capsule 10 mg 10 mg Oral ACHS duloxetine DR (CYMBALTA) capsule 90 mg 90 mg Oral QDAY enoxaparin (LOVENOX) syringe 40 mg 40 mg Subcutaneous QDAY(21) ferrous gluconate tablet 324 mg 324 mg Oral QDAY w/breakfast fludrocortisone (FLORINEF) tablet 0.3 mg 0.3 mg Oral QDAY fluticasone (FLONASE) nasal spray 1 spray 1 spray Each Nostril QDAY hydroxychloroquine (PLAQUENIL) tablet 200 mg 200 mg Oral QDAY insulin aspart U-100 (NOVOLOG FLEXPEN) injection PEN 0-14 Units 0-14 Units Subcutaneous ACHS insulin aspart U-100 (NOVOLOG FLEXPEN) injection PEN 5 Units 5 Units Subcutaneous TID w/ meals insulin glargine (LANTUS SOLOSTAR, BASAGLAR) injection PEN 12 Units 12 Units Subcutaneous QHS(22) levothyroxine (SYNTHROID) tablet 175 mcg 175 mcg Oral QDAY 30 min before breakfast montelukast (SINGULAIR) tablet 10 mg 10 mg Oral QHS pantoprazole DR (PROTONIX) tablet 40 mg 40 mg Oral QDAY pentosan polysulfate sodium (ELMIRON) capsule 100 mg 100 mg Oral TID before meals potassium chloride SR (K-DUR) tablet 10 mEq 10 mEq Oral QDAY pregabalin (LYRICA) capsule 150 mg 150 mg Oral BID pyridoxine (VITAMIN B-6) tablet 50 mg 50 mg Oral QDAY scopolamine (TRANSDERM-SCOP) patch 1 patch 1 patch Transdermal Q72H* SUCRALFATE 1gm/10ml (Patients own medication) 1 g Oral ACHS vitamins, B complex tablet 1 tablet 1 tablet Oral QDAY vitamins, multiple tablet 1 tablet 1 tablet Oral QDAY Continuous Infusions: lactated ringers infusion PRN and Respiratory Meds:acetaminophen Q6H PRN, acetaminophen/lidocaine/antacid DS(#) QID PRN, ALPRAZolam BID PRN, hydrALAZINE Q6H PRN, loperamide QID PRN, morphine injection syringe Q2H PRN, ondansetron (ZOFRAN) IV Q4H PRN, oxyCODONE Q4H PRN, prochlorperazine Q6H PRN, tiZANidine Q6H PRN, zolpidem QHS PRN Objective Vital Signs: Last Filed Vital Signs: 24 Hour Range BP: 156/81 (10/15 931) Temp: 37.1 C (98.7 F) (10/15 931) Pulse: 97 (10/15 931) Respirations: 16 PER MINUTE (10/15 931) SpO2: 94 % (10/15 931) O2 Delivery: None (Room Air) (10/15 931) BP: (89-163)/(52-76) Temp: [36.6 C (97.8 F)-37.3 C (99.1 F)] Pulse: [73-97] Respirations: [9 PER MINUTE-18 PER MINUTE] SpO2: [93 %-100 %] O2 Delivery: None (Room Air) Intensity Pain Scale (Self Report): 10 (10/15/18 0741) Vitals: 10/12/18 2131 Weight: 67.2 kg (148 lb 2.4 oz) Intake/Output Summary: (Last 24 hours) Intake/Output Summary (Last 24 hours) at 10/15/18 0839 Last data filed at 10/15/18 08 Gross per 24 hour Intake 500 ml Output 1400 ml Net -900 ml Stool Occurrence: 1 Physical Exam General: Awake, alert, flat affect Head: Normocephalic, without obvious abnormality, atraumatic. Eyes: Conjunctivae/corneas clear. Lungs: CTAB, no rales, no wheezing. Heart: tachy, reg rhythm, no MRG. Abdomen: Soft, NTTP, but she reports pain at baseline. Bowel sounds normal. Extremities: LLE in CAM, SILT Pulses: 2+ radial pulses b/l Lab Review Hematology: Lab Results Component Value Date HGB 8.5 10/15/2018 HCT 25.5 10/15/2018 PLTCT 108 10/15/2018 WBC 11.5 10/15/2018 NEUT 39 10/15/2018 ANC 4.40 10/15/2018 LYMPH 53 09/27/2018 ALC 5.00 10/15/2018 EVELYN 6 10/15/2018 AMC 0.70 10/15/2018 ABC 0.10 10/15/2018 BASOPHILS 1 09/27/2018 MCV 90.2 10/15/2018 MCHC 33.4 10/15/2018 MPV 9.0 10/15/2018 RDW 16.7 10/15/2018 , Coagulation: No results found for: PT, PTT, INR, General Chemistry: Lab Results Component Value Date NA 138 10/15/2018 K 3.7 10/15/2018 CL 103 10/15/2018 GAP 7 10/15/2018 BUN 7 10/15/2018 CR 0.71 10/15/2018 GLU 242 10/15/2018 CA 7.9 10/15/2018 ALBUMIN 2.8 10/15/2018 OBSCA 0.94 10/13/2018 MG 2.0 10/12/2018 TOTBILI 0.2 10/15/2018 and Enzymes: Lab Results Component Value Date AST 34 10/15/2018 ALT 23 10/15/2018 ALKPHOS 88 10/15/2018 Point of Care Testing (Last 24 hours) Glucose: (!) 242 (10/15/18 0402) POC Glucose (Download): (!) 308 (10/15/18 7093) Radiology and other Diagnostics Review: No radiology Israel Orourke MD Pager [phone] SERVICE WAITER/WAITRESS * Karri Peters - 10/14/2018 3:08 PM ROOM SERVICE WAITER/WAITRESS ORTHOTICS/PROSTHETICS Consult Note: NAME: Chelsea Castillo ADMISSION DATE: admitted to hospital : 1960 AGE: 58 y.o. ROOM: [place] [address] DOCTOR: Date of Order: 10/14/18 Date of Service: 10/14/18 Services referred for: Orthotic Eval and Treat: Cam walker Description of condition/injury, including services:s/p Lt tibia IM Nail Size: Sm Max Trax Air CAM Walker Side Lt Measurements: Area/circumference/Diameter/Length None Functional Goals discussed for device use: Joint stabilization (support and alignment) Increase or decrease range of motion Decrease pain Device is to be ordered No Estimated date of delivery Today Functional goals met: Yes The patient states satisfaction with the fit/function of device: Yes Additional supplies provided to the patient: None Patient Education: Written and/or verbal instruction/information provided to Patient Information provided: device function, usage/break-in period, donning/doffing of device, care and cleaning and benefits and precautions Patient did tolerate the procedure without incident/problem. Follow-up scheduled: PRN PLAN: Order completed Karri Peters 10/14/2018 SERVICE WAITER/WAITRESS * Israel Orourke MD - 10/14/2018 12:32 PM ROOM SERVICE WAITER/WAITRESS General Progress Note Name: Chelsea Castillo Today's Date: 10/14/2018 Admission Date: 10/12/2018 LOS: 2 days Assessment/Plan: Active Problems: Type 1 diabetes, uncontrolled, with neuropathy (HCC) Chronic abdominal pain Immunosuppression due to drug therapy Acquired hypothyroidism CLL (chronic lymphocytic leukemia) (HCC) Tibia/fibula fracture Anxiety and depression Seizure disorder (HCC) 58yoF w/ PMH of CLL on active tx, DM1, migraine ROWE, hypothyroid, , chronic abd pain, anxiety and depression, seizure d/o, chronic abd pain w/ gastroparesis, arthritis on immunosuppression, who is admitted w/ tib-fib fracture, 5 metatarsal fracture after fall at home after discharge from [facility]. Changes made to today's assessment and plan are indicated in bold. L tib fib fracture, L 5th metatarsal fracture - ortho consulted on admit, splint was applied in the ED - s/p surgical fixation w/ IM nail today - WBAT on LLE in CAM - cont oxycodone 5-10mg PRN q4hr, morphine 2-4mg Q2hr PRN Chronic abd pain, N/V - w/u to date has been unrevealing - cont PRN imodium, bentyl, sucralfate - cont lyrica - cont PPI DM1 - a1c=8.5% - cont lantus 13u QHS, aspart 5u TID AC - [facility] CLL - following w/ heme, currently only have surveillance labs Orthostatic hypotension - cont florinef MDD, anxiety - cont EDGE BONDER cymbalta, PRN BID Valium - decreased ambien to 5mg w/ narcotics ?seizure d/o - cont tegretol ?inflammatory arthritis - cont plaquenil Hypothyroid - cont synthroid FEN: no IVF, replace lytes PRN, ADA diet Ppx: lovenox Code: Full Dispo: cont inpt admit, seen in PACU after OR. Cont current pain regimen. Will need to start working w/ PT. Plan for SNF towards the end of the week. Subjective Chelsea Julien Castillo is a 58 y.o. female. Patient w/o acute events overnight. Seen in the PACI after the OR, reports "8/10" pain, but then falls back to sleep. ROS: neg for fevers, chills, dyspnea, chest pain, palpitations Medications Scheduled Meds: [MAR Hold] atorvastatin (LIPITOR) tablet 40 mg 40 mg Oral QDAY carBAMazepine (TEGRETOL) tablet 400 mg 400 mg Oral QDAY ceFAZolin (ANCEF) IVP 1 g 1 g Intravenous Q8H* [JAN Hold] cetirizine (ZYRTEC) tablet 10 mg 10 mg Oral QAM8 [JAN Hold] cholecalciferol (VITAMIN D-3) tablet 5,000 Units 5,000 Units Oral QDAY [JAN Hold] dicyclomine (BENTYL) capsule 10 mg 10 mg Oral ACHS [JAN Hold] duloxetine DR (CYMBALTA) capsule 90 mg 90 mg Oral QDAY [JAN Hold] enoxaparin (LOVENOX) syringe 40 mg 40 mg Subcutaneous QDAY(21) [JAN Hold] ferrous gluconate tablet 324 mg 324 mg Oral QDAY w/breakfast [JAN Hold] fludrocortisone (FLORINEF) tablet 0.3 mg 0.3 mg Oral QDAY [JAN Hold] fluticasone (FLONASE) nasal spray 1 spray 1 spray Each Nostril QDAY hydroxychloroquine (PLAQUENIL) tablet 200 mg 200 mg Oral QDAY [Jan] insulin aspart U-100 (NOVOLOG FLEXPEN) injection PEN 0-14 Units 0-14 Units Subcutaneous ACHS [JAN Hold] insulin aspart U-100 (NOVOLOG FLEXPEN) injection PEN 5 Units 5 Units Subcutaneous TID w/ meals [Jan] insulin glargine (LANTUS SOLOSTAR, BASAGLAR) injection PEN 12 Units 12 Units Subcutaneous QHS(22) [Jan] levothyroxine (SYNTHROID) tablet 175 mcg 175 mcg Oral QDAY 30 min before breakfast [JAN Hold] montelukast (SINGULAIR) tablet 10 mg 10 mg Oral QHS [JAN Hold] pantoprazole DR (PROTONIX) tablet 40 mg 40 mg Oral QDAY [Jan] pentosan polysulfate sodium (ELMIRON) capsule 100 mg 100 mg Oral TID before meals [Jan] potassium chloride SR (K-DUR) tablet 10 mEq 10 mEq Oral QDAY pregabalin (LYRICA) capsule 150 mg 150 mg Oral BID [JAN Hold] pyridoxine (VITAMIN B-6) tablet 50 mg 50 mg Oral QDAY [JAN Hold] SUCRALFATE 1gm/10ml (Patients own medication) 1 g Oral ACHS [JAN Hold] vitamins, B complex tablet 1 tablet 1 tablet Oral QDAY [JAN Hold] vitamins, multiple tablet 1 tablet 1 tablet Oral QDAY Continuous Infusions: lactated ringers infusion PRN and Respiratory Meds:[JAN Hold] acetaminophen Q6H PRN, [JAN Hold] acetaminophen/lidocaine/antacid DS(#) QID PRN, [JAN Hold] ALPRAZolam BID PRN, diphenhydrAMINE Once PRN, fentaNYL citrate PF Q5 MIN PRN, fentaNYL citrate PF Q5 MIN PRN, [JAN Hold] hydrALAZINE Q6H PRN, HYDROmorphone (DILAUDID) injection Q10 MIN PRN, [JAN Hold] lidocaine PF PRN, [JAN Hold] loperamide QID PRN, metoclopramide (REGLAN) IV Once PRN, [Jan] morphine injection syringe Q2H PRN, [JAN Hold] ondansetron (ZOFRAN) IV Q6H PRN, [JAN Hold] oxyCODONE Q4H PRN, [JAN Hold] prochlorperazine Q6H PRN, promethazine Q10 MIN PRN, [JAN Hold] tiZANidine Q6H PRN, [Jan] zolpidem QHS PRN Objective Vital Signs: Last Filed Vital Signs: 24 Hour Range BP: 100/66 (10/14 1145) Temp: 37.1 C (98.8 F) (10/14 1012) Pulse: 87 (10/14 1145) Respirations: 13 PER MINUTE (10/14 1145) SpO2: 96 % (10/14 1145) O2 Delivery: Nasal Cannula (10/14 114) SpO2 Pulse: 88 (10/14 1145) BP: (100-163)/(53-84) Temp: [37.1 C (98.7 F)-37.8 C (100.1 F)] Pulse: [73-100] Respirations: [9 PER MINUTE-20 PER MINUTE] SpO2: [92 %-100 %] O2 Delivery: Nasal Cannula Intensity Pain Scale (Self Report): 10 (10/14/18 1030) Vitals: 10/12/18 2131 Weight: 67.2 kg (148 lb 2.4 oz) Intake/Output Summary: (Last 24 hours) Intake/Output Summary (Last 24 hours) at 10/14/18 1232 Last data filed at 10/14/18 1000 Gross per 24 hour Intake 1410 ml Output 1955 ml Net -545 ml Physical Exam General: Somnolent, but awakens easily to voice Head: Normocephalic, without obvious abnormality, atraumatic. Eyes: Conjunctivae/corneas clear. Lungs: CTAB, no rales, no wheezing. Heart: tachy, reg rhythm, no MRG. Abdomen: Soft, non-tender. Bowel sounds normal. Extremities: LLE in TEDDY Pulses: 2+ radial pulses b/l Lab Review Hematology: Lab Results Component Value Date HGB 9.9 10/14/2018 HCT 30.0 10/14/2018 PLTCT 131 10/14/2018 WBC 8.1 10/14/2018 NEUT 56 10/14/2018 ANC 4.60 10/14/2018 LYMPH 53 09/27/2018 ALC 2.50 10/14/2018 EVELYN 7 10/14/2018 AMC 0.50 10/14/2018 ABC 0.00 10/14/2018 BASOPHILS 1 09/27/2018 MCV 90.6 10/14/2018 MCHC 33.1 10/14/2018 MPV 9.1 10/14/2018 RDW 17.9 10/14/2018 , Coagulation: No results found for: PT, PTT, INR, General Chemistry: Lab Results Component Value Date NA 138 10/14/2018 K 3.5 10/14/2018 CL 102 10/14/2018 GAP 7 10/14/2018 BUN 6 10/14/2018 CR 0.70 10/14/2018 GLU 232 10/14/2018 CA 8.5 10/14/2018 ALBUMIN 3.1 10/14/2018 OBSCA 0.94 10/13/2018 MG 2.0 10/12/2018 TOTBILI 0.3 10/14/2018 and Enzymes: Lab Results Component Value Date AST 26 10/14/2018 ALT 24 10/14/2018 ALKPHOS 79 10/14/2018 Point of Care Testing (Last 24 hours) Glucose: (!) 232 (10/14/18 0420) POC Glucose (Download): (!) 218 (10/14/18 1016) Radiology and other Diagnostics Review: No radiology Israel Orourke MD Pager [phone] SERVICE WAITER/WAITRESS * Karma Boothe MD - 10/14/2018 10:13 AM ROOM SERVICE WAITER/WAITRESS Ortho Post Op Recs -WBAT LLE in CAM boot -ok to resume diet from ortho standpoint -24 hrs perioperative ancef (ordered) -DVT ppx: per primary, recommend lovenox -Dressings per ortho -Pain control and medical management per primary team -PT/OT Please page Dayo Chan or Jeny Rodriguez with questions Karma Boothe MD [phone] SERVICE WAITER/WAITRESS * Brea Garcia, OT - 10/14/2018 9:26 AM ROOM SERVICE WAITER/WAITRESS OCCUPATIONAL THERAPY NOTE The patient was not seen due to: Patient not available, off the floor for L tibial fixation. Will f/u with occupational therapy plan of care post OR. Therapist: Brea Garcia, OT Date: 10/14/2018 SERVICE WAITER/WAITRESS * Arnoldo Mendez, PT - 10/14/2018 9:24 AM ROOM SERVICE WAITER/WAITRESS PHYSICAL THERAPY NOTE Patient was unavailable for physical therapy. OR today for fixation L tibia, will follow up post op. Physical therapy will continue to follow and provide intervention as indicated. Therapist: Arnoldo Mendez, PT Date: 10/14/2018 SERVICE WAITER/WAITRESS * Karma Boothe MD - 10/14/2018 7:29 AM ROOM SERVICE WAITER/WAITRESS Ortho Progress Note S: No acute events. Pain controlled this morning. Ready for OR today. O: Blood pressure 157/83, pulse 94, temperature 37.3 C (99.1 F), height 165.1 cm (65"), weight 67.2 kg (148 lb 2.4 oz), SpO2 99 %. General: AAOx3, NAD Cardiac: RRR Respirations: Unlabored Abdomen: soft, nt Extremities: left lower extremity: splint c/d/i, no pain with passive stretch of great toe, EHL/FHL function intact, wiggles lesser toes, SILT, distal cap refill < 2 sec No results for input(s): PTT, INR in the last 72 hours. CBC w/Diff Lab Results Component Value Date/Time WBC 8.1 10/14/2018 04:20 AM HGB 9.9 (L) 10/14/2018 04:20 AM HCT 30.0 (L) 10/14/2018 04:20 AM PLTCT 131 (L) 10/14/2018 04:20 AM Basic Metabolic Profile Lab Results Component Value Date/Time NA 138 10/14/2018 04:20 AM K 3.5 10/14/2018 04:20 AM CL 102 10/14/2018 04:20 AM CO2 29 10/14/2018 04:20 AM GAP 7 10/14/2018 04:20 AM Lab Results Component Value Date/Time BUN 6 (L) 10/14/2018 04:20 AM CR 0.70 10/14/2018 04:20 AM GLU 232 (H) 10/14/2018 04:20 AM A/P: Chelsea Victoria Issa Castillo is a 58 y.o. female with left, closed distal one third tibia and fibula fractures and nondisplaced L 5th MT base fx status post fall Patient Active Problem List Diagnosis Date Noted Anxiety and depression 10/13/2018 Seizure disorder (HCC) 10/13/2018 Tibia/fibula fracture 10/12/2018 Diarrhea 10/09/2018 Hypotension 10/09/2018 CLL (chronic lymphocytic leukemia) (HCC) 10/02/2018 Abdominal pain 09/18/2018 Healthcare maintenance 08/19/2018 Orthostatic hypotension 08/19/2018 Immunosuppression due to drug therapy 08/19/2018 Acquired hypothyroidism 08/19/2018 LAD (lymphadenopathy), axillary 08/19/2018 Chronic abdominal pain 07/19/2018 Other dysphagia 07/18/2018 Other constipation 07/18/2018 Intractable cyclical vomiting with nausea 07/18/2018 Gastritis 07/18/2018 Type 1 diabetes, uncontrolled, with neuropathy (HCC) 07/18/2018 Dysthymia 07/18/2018 Anxiety 07/18/2018 Migraine with aura and with status migrainosus, not intractable 07/18/2018 Epigastric pain 07/18/2018 -PT/OT -OR today for fixation L tibia. Posted, consent in chart -Recommend ice, elevation and Q3 hour NV checks -NPO at midnight -WB Status - NWB LLE Karma Boothe MD [id number] SERVICE WAITER/WAITRESS * Miguelina Levine, SHAVON - 10/14/2018 4:30 AM ROOM SERVICE WAITER/WAITRESS Pt vomited needs something besides zofran. Team paged. SERVICE WAITER/WAITRESS * Shelby Quigley, OT - 10/13/2018 10:54 AM ROOM SERVICE WAITER/WAITRESS OCCUPATIONAL THERAPY ASSESSMENT NOTE Patient Name: Chelsea Castillo Room/Bed: WE1260/01 Admitting Diagnosis: Past Medical History: Diagnosis Date Arthritis Diabetes mellitus type 1 (HCC) Osteoporosis Stomach problems Thyroid disorder Mobility Progressive Mobility Level: Active transfer to chair Level of Assistance: Assist X1 Assistive Device: Walker Time Tolerated: 11-30 minutes Activity Limited By: Pain Subjective Pertinent Dx per Physician: PMH of Type I DM, Diabetic neuropathy, recent diagnosis of SLL/CLL, Hypothyroidism, Orthostatic hypotension, Intractrable nausea/vomiting, cyclic vomiting syndrome, anxiety/depression, chronic abdominal pain, gastroparesis ?Epilepsyon Tegretol who was just discharged from hospitalist service after being treated for diarrhea, now presented post fall and was found to have left tib-fib fracture. Plan to have OR 10/14. Per PT team feels patient would benefit from therapy prior to OR. Precautions: Standard;Falls L LE Precautions: LLE Non-Weight Bearing Pain / Complaints: Patient agrees to participate in therapy Pain Location: Left;Right;Foot Pain Level Current: (did not rate ) Comments: Patient up in chair upon OT arrival. Supine in bed at end of session, all needs met. Objective Psychosocial Status: Participates in Therapy with Encouragement Persons Present: Nursing Staff Home Living Type of Home: House Home Layout: One Level Bathroom Shower / Tub: Tub/Shower Unit Comment: Patient planning to discharge to sister's home. Documentation reflective of that set-up. Prior Function Level Of [place]: Independent with ADLs and functional transfers; Independent with homemaking w/ ambulation Lives With: Spouse Receives Help From: None Needed Other Function Comments: Patient reports spouse will be available to provide assistance as needed upon discharge. ADL's Where Assessed: Chair Toileting Assist: Minimal Assist Toileting Deficits: Steadying;Use of Bedpan/Urinal Setup Functional Transfer Assist: Minimal Assist Functional Transfer Deficits: (chair > recliner; stand pivot) Comment: Upon OT arrival, patient sitting on bed olson in recliner requesting to be cleaned up. Patient performed sit <> stand with minimal assistance and was able to perform sonia care front and back with steadying assist while maintaining NWB status of LLE. Patient then completed stand pivot transfer with minimal assistance from recliner > bed. Patient tearful throughout transfer due to pain. Required moderate assistance for BLE sit > supine. Encouraged use of commode vs. bedpan as tolerated; discussed with RN. Activity Tolerance Endurance: 2/5 Tolerates 10-20 Minutes Exercise w/Multiple Rests Sitting Balance: 3+/5 Sits w/o UE Support for 30 Seconds or Greater Comment: Activity limited by 10/10 pain. Cognition Overall Cognitive Status: WFL to Adequately Complete Self Care Tasks Safely Comprehension: WFL to Adequately Complete Self Care Tasks Safely Expression: WFL Adequate to Meet Daily Needs Social Interaction: WFL Adequate to Solve Routine Tasks Problem Solving: WFL Adequate to Solve Routine Problems Memory: WFL Adequate to Recall Day to Day Activities Orientation: Alert & Oriented x4 Attention: Awake/Alert UE AROM Comment: WFL Sensory Overall Sensory: Pt Perceives Pressure in Both UEs in Gross Exam UE Strength / Tone Overall Strength / Tone: WFL Able to Perform ADL Tasks Education Persons Educated: Patient Barriers To Learning: Pain Interventions: Repetition of Instructions Teaching Methods: Verbal Instruction Patient Response: Verbalized Understanding Topics: Role of OT, Goals for Therapy Goal Formulation: With Patient Assessment Assessment: Decreased ADL Status;Decreased Endurance;Decreased Self-Care Trans; Decreased High-Level ADLs Prognosis: Good;w/ Family Goal Formulation: Patient Comments: Patient limited by pain. Anticipate as pain improves patient will progress quickly even with NWB status of LLE. AM-PAC 6 Clicks Daily Activity Inpatient Putting on and taking off regular lower body clothes?: A Lot Bathing (Including washing, rinsing, drying): A Lot Toileting, which includes using toilet, bedpan, or urinal: A Lot Putting on and taking off regular upper body clothing: None Taking care of personal grooming such as brushing teeth: None Eating meals?: None Daily Activity Raw Score: 18 Standardized (t-scale) score: 38.66 CMS 0-100% Score: 46.65 CMS G Code Modifier: CK Plan OT Frequency: 5x/week OT Plan for Next Visit: follow up after OR for fixation; commode transfers ADL Goals Patient Will Perform All ADL's: w/ Stand By Assist Functional Transfer Goals Pt Will Perform All Functional Transfers: w/ Stand By Assist OT Discharge Recommendations OT Discharge Recommendations: Inpatient Setting (early recc. may progress quickly with pain control ) Equipment Recommendations: Too early to be determined Recommend ongoing assistance for: Toileting, Bathing, Dressing, Transfers Therapist: Shelby Quigley OTR/[place] [id number] Date: 10/13/2018 G-Codes: Self-care G8987 Current Status: 40-59% Impairment G8988 Goal Status: 20-39% Impairment G8989 Discharge Status: Based on above evaluation and clinical judgment. SERVICE WAITER/WAITRESS * Brandon Shields, PT - 10/13/2018 9:42 AM ROOM SERVICE WAITER/WAITRESS PHYSICAL THERAPY ASSESSMENT MOBILITY: Mobility Progressive Mobility Level: Active transfer to chair Level of Assistance: Assist X2 Assistive Device: Walker Time Tolerated: 11-30 minutes Activity Limited By: Pain SUBJECTIVE: Subjective Significant hospital events: PMH of Type I DM, Diabetic neuropathy, recent diagnosis of SLL/CLL, Hypothyroidism, Orthostatic hypotension, Intractrable nausea/vomiting, cyclic vomiting syndrome, anxiety/depression, chronic abdominal pain, gastroparesis ?Epilepsyon Tegretronnie who was just discharged from hospitalist service after being treated for diarrhea, now presented post fall and was found to have left tib-fib fracture. Plan to have OR 10/14. Mental / Cognitive Status: Alert;Oriented;Cooperative;Anxious Persons Present: RehabTechnician Pain: Patient complains of pain;08/28;Before activity;During activity;After activity Pain Location: Left;Leg Pain Description: Stabbing Pain Interventions: Patient pre-medicated;Patient agrees to participate in therapy with modifications to session;Patient assisted into position of comfort; Nursing staff notified of patient's pain level L LE Precautions: LLE Non-Weight Bearing Ambulation Assist: Independent Mobility at Household Level without Device Patient Owned Equipment: None Home Situation: Lives with Family Type of Home: House Entry Stairs: 3-5 Stairs;Rail on 1 Side In-Home Stairs: Able to Live on One Level Comments: Pt lives at home with , states she and will be staying at her sister's house upon discharge. Pt reports spouse is available to assist as needed. Pt previously independent with mobility and ADLs, pt had one fall at home - unable to determine cause of fall whether related to dizziness or LE weakness. STRENGTH: Strength Strength Unable To Assess: Due to Pain/Surgery BED MOBILITY/TRANSFERS: Bed Mobility/Transfers Bed Mobility: Supine to Sit: Minimal Assist;x2 People;Assist with Trunk;Assist with L LE Transfer Type: Stand Pivot Transfer: Assistance Level: From;Bed;To;Bed Side Chair;Moderate Assist;x2 People Transfer: Assistive Device: Roller Walker Transfers: Type Of Assistance: Elevated Bed;Verbal Cues;To Maintain Precautions; For Balance;For Safety Considerations;Requires Extra Time End Of Activity Status: Up in Chair;Nursing Notified;Instructed Patient to Request Assist with Mobility;Instructed Patient to Use Call Light BALANCE: Balance Sitting Balance: Static Sitting Balance;Dynamic Sitting Balance;2 UE Support; Independent Standing Balance: Static Standing Balance;2 UE support;Minimal Assist;x2 People GAIT: Gait Comments: Pt is not able to hop to take steps to transfer to chair, very fear of falling and also limited by pain. Only able to pivot at this time. EDUCATION: Education Persons Educated: Patient Patient Barriers To Learning: Pain;Anxiety Interventions: Repetition of Instructions Teaching Methods: Verbal Instruction;Demonstration Patient Response: More Instruction Required Topics: Up with Assist Only;Safety Awareness;Plan/Goals of PT Interventions;Use of Assistive Device/Orthosis;Mobility Progression;Precautions;Equipment Recommendations;Recommend Continued Therapy ASSESSMENT/PROGRESS: Assessment/Progress Impaired Mobility Due To: Medical Status Limitation Assessment/Progress: Should Improve w/ Continued PT AM-PAC 6 Clicks Basic Mobility Inpatient Turning from your back to your side while in a flat bed without using bed rails : A Little Moving from lying on your back to sitting on the side of a flatbed without using bedrails : A Lot Moving to and from a bed to a chair (including a wheelchair): A Lot Standing up from a chair using your arms (e.g. wheelchair, or bedside chair): A Lot To walk in hospital room: Total Climbing 3-5 steps with a railing: Total Raw Score: 11 Standardized (T-scale) Score: 30.25 Basic Mobility CMS 0-100%: 66.76 CMS G Code Modifier for Basic Mobility: CL G-Codes: Mobility G8978 Current Status: 60-79% Impairment G8979 Goal Status: 20-39% Impairment Based on above evaluation and clinical judgment. GOALS: Goals Goal Formulation: With Patient Time For Goal Achievement: 5 days, To, 7 days Pt Will Go Supine To/From Sit: w/ Minimal Assist Pt Will Transfer Sit to Stand: w/ Minimal Assist Pt Will Ambulate: 1-10 Feet, w/ Walker, w/ Minimal Assist Pt Will Go Up / Down Stairs: (to set when appropriate. ) PLAN: Plan Treatment Interventions: Mobility Training;Endurance Training;Balance Activities ;Family Training Plan Frequency: 5-7 Days per Week PT Plan for Next Visit: progress bed mobility, transfer, initiate gait after OR. RECOMMENDATIONS: PT Discharge Recommendations PT Discharge Recommendations: Inpatient Setting Therapist: Brandon Shields, PT Date: 10/13/2018 SERVICE WAITER/WAITRESS * Bill Tyson RN - 10/13/2018 8:40 AM ROOM SERVICE WAITER/WAITRESS Notified by radiology of newly identified non-displaced left 5th metatars[address] fracture. Dr. Orourke and Dr. Hunt with Ortho notified. No change to current treatment plan. SERVICE WAITER/WAITRESS * Israel Orourke MD - 10/13/2018 8:39 AM ROOM SERVICE WAITER/WAITRESS General Progress Note Name: Chelsea Castillo Today's Date: 10/13/2018 Admission Date: 10/12/2018 LOS: 1 day Assessment/Plan: Active Problems: Type 1 diabetes, uncontrolled, with neuropathy (HCC) Chronic abdominal pain Immunosuppression due to drug therapy Acquired hypothyroidism CLL (chronic lymphocytic leukemia) ([facility]) Tibia/fibula fracture 58yoF w/ PMH of CLL on active tx, DM1, migraine ROWE, hypothyroid, , chronic abd pain, anxiety and depression, seizure d/o, chronic abd pain w/ gastroparesis, arthritis on immunosuppression, who is admitted w/ tib-fib fracture, 5 metatarsal fracture after fall at home after discharge from [facility]. Changes made to today's assessment and plan are indicated in bold. L tib fib fracture, L 5th metatarsal fracture - ortho consulted on admit, splint was applied in the ED - plan for surgical fixation 10/14 - cont q3hr N/V checks - NWB LLE - change pain regimen to oxycodone 5-10mg PRN q4hr, morphine 2-4mg Q2hr PRN Chronic abd pain, N/V - w/u to date has been unrevealing - cont PRN imodium, bentyl, sucralfate - cont lyrica - cont PPI DM1 - a1c=8.5% - start lantus 13u QHS, aspart 5u TID AC - given 10u NPH now for glucose >500 CLL - following w/ heme, currently only have surveillance labs Orthostatic hypotension - cont florinef MDD, anxiety - cont EDGE BONDER cymbalta, PRN BID Valium - decrease ambien to 5mg w/ narcotics ?seizure d/o - cont tegretol ?inflammatory arthritis - cont plaquenil Hypothyroid - cont synthroid FEN: no IVF, replace lytes PRN, regular diet/NPO at [place] Ppx: lovenox Code: Full Dispo: cont inpt admit, increase pain regimen, plan for OR in the morning. Will need PT/OT after surgery, will likely require placement. Subjective Chelsea Victoria Issa Castillo is a 58 y.o. female. Patient w/ ongoing pain in her LLE this morning. Reports fentanyl only helped for 15 minutes. Reports her abdominal pain is better since she discharged. ROS: neg for fevers, chills, dyspnea, chest pain, palpitations Medications Scheduled Meds: atorvastatin (LIPITOR) tablet 40 mg 40 mg Oral QDAY carBAMazepine (TEGRETOL) tablet 400 mg 400 mg Oral QDAY cetirizine (ZYRTEC) tablet 10 mg 10 mg Oral QAM8 cholecalciferol (VITAMIN D-3) tablet 5,000 Units 5,000 Units Oral QDAY dicyclomine (BENTYL) capsule 10 mg 10 mg Oral ACHS duloxetine DR (CYMBALTA) capsule 90 mg 90 mg Oral QDAY enoxaparin (LOVENOX) syringe 40 mg 40 mg Subcutaneous QDAY(21) ferrous gluconate tablet 324 mg 324 mg Oral QDAY w/breakfast fludrocortisone (FLORINEF) tablet 0.3 mg 0.3 mg Oral QDAY fluticasone (FLONASE) nasal spray 1 spray 1 spray Each Nostril QDAY hydroxychloroquine (PLAQUENIL) tablet 200 mg 200 mg Oral QDAY insulin aspart U-100 (NOVOLOG FLEXPEN) injection PEN 0-14 Units 0-14 Units Subcutaneous ACHS insulin aspart U-100 (NOVOLOG FLEXPEN) injection PEN 5 Units 5 Units Subcutaneous TID w/ meals insulin glargine (LANTUS SOLOSTAR, BASAGLAR) injection PEN 12 Units 12 Units Subcutaneous QHS() levothyroxine (SYNTHROID) tablet 175 mcg 175 mcg Oral QDAY 30 min before breakfast montelukast (SINGULAIR) tablet 10 mg 10 mg Oral QHS pantoprazole DR (PROTONIX) tablet 40 mg 40 mg Oral QDAY pentosan polysulfate sodium (ELMIRON) capsule 100 mg 100 mg Oral TID before meals potassium chloride SR (K-DUR) tablet 10 mEq 10 mEq Oral QDAY pregabalin (LYRICA) capsule 150 mg 150 mg Oral BID pyridoxine (VITAMIN B-6) tablet 50 mg 50 mg Oral QDAY SUCRALFATE 1gm/10ml (Patients own medication) 1 g Oral ACHS vitamins, B complex tablet 1 tablet 1 tablet Oral QDAY vitamins, multiple tablet 1 tablet 1 tablet Oral QDAY Continuous Infusions: PRN and Respiratory Meds:acetaminophen Q6H PRN, acetaminophen/lidocaine/antacid DS(#) QID PRN, ALPRAZolam BID PRN, fentaNYL citrate PF Q4H PRN, hydrALAZINE Q6H PRN, loperamide QID PRN, melatonin QHS PRN, ondansetron (ZOFRAN) IV Q6H PRN, oxyCODONE Q4H PRN, tiZANidine Q6H PRN, zolpidem QHS PRN Objective Vital Signs: Last Filed Vital Signs: 24 Hour Range BP: 130/58 (10/13 522) Temp: 37.3 C (99.2 F) (10/13 522) Pulse: 95 (10/13 522) Respirations: 16 PER MINUTE (10/13 522) SpO2: 96 % (10/13 522) O2 Delivery: None (Room Air) (10/13 522) SpO2 Pulse: 90 (10/12 2045) Height: 165.1 cm (65") (10/12 2131) BP: (99-190)/(45-99) Temp: [36.6 C (97.8 F)-37.3 C (99.2 F)] Pulse: [82-96] Respirations: [9 PER MINUTE-30 PER MINUTE] SpO2: [93 %-100 %] O2 Delivery: None (Room Air) Intensity Pain Scale (Self Report): 10 (10/13/18 0747) Vitals: 10/12/182130 Weight: 67.2 kg (148 lb 2.4 oz) Intake/Output Summary: (Last 24 hours) Intake/Output Summary (Last 24 hours) at 10/13/18 0839 Last data filed at 10/13/18 0812 Gross per 24 hour Intake 1447 ml Output 1800 ml Net -353 ml Physical Exam General: Alert, cooperative, no distress, appears stated age. Anxious appearing. Head: Normocephalic, without obvious abnormality, atraumatic. Eyes: Conjunctivae/corneas clear. Lungs: CTAB, no rales, no wheezing. Heart: tachy, reg rhythm, no MRG. Abdomen: Soft, non-tender. Bowel sounds normal. Extremities: LLE in soft splint wrapped in TEDDY Pulses: 2+ radial pulses b/l Skin: Skin color, texture, turgor normal. No rashes or lesions. Lab Review Hematology: Lab Results Component Value Date HGB 8.9 10/13/2018 HCT 26.6 10/13/2018 PLTCT 80 10/13/2018 WBC 9.8 10/13/2018 NEUT 48 10/13/2018 ANC 4.80 10/13/2018 LYMPH 53 09/27/2018 ALC 4.10 10/13/2018 EVELYN 7 10/13/2018 AMC 0.60 10/13/2018 ABC 0.00 10/13/2018 BASOPHILS 1 09/27/2018 MCV 89.3 10/13/2018 MCHC 33.5 10/13/2018 MPV 8.2 10/13/2018 RDW 18.4 10/13/2018 , Coagulation: No results found for: PT, PTT, INR, General Chemistry: Lab Results Component Value Date NA 135 10/13/2018 K 3.8 10/13/2018 CL 107 10/13/2018 GAP 6 10/13/2018 BUN 9 10/13/2018 CR 0.72 10/13/2018 GLU 349 10/13/2018 CA 6.9 10/13/2018 ALBUMIN 2.5 10/13/2018 OBSCA 0.94 10/13/2018 MG 2.0 10/12/2018 TOTBILI 0.3 10/13/2018 and Enzymes: Lab Results Component Value Date AST 23 10/13/2018 ALT 17 10/13/2018 ALKPHOS 58 10/13/2018 Point of Care Testing (Last 24 hours) Glucose: (!) 349 (10/13/18 021) POC Glucose (Download): (!) 547 (10/13/18 1207) Radiology and other Diagnostics Review: Pertinent radiology reviewed. Ct Lower Extrem Wo Cont Left Result Date: 10/12/2018 1. Comminuted fracture of the distal tibial [...] Rory Mansfield D.O. on 10/12/2018 9:50 PM. Ankle Min 3 Views Bilateral Result Date: 10/13/2018 1. Comminuted and displaced fracture of the [...] Paul Trejo M.D. on 10/13/2018 7:01 AM. Foot 2 View Bilateral Result Date: 10/13/2018 1. Acute nondisplaced fracture of the left [...] Dictated by Paul Trejo M.D. on 10/13/2018 7 :16 AM. Knee 1 Or 2 Views Bilateral Result Date: 10/13/2018 1. No acute osseous abnormality involving the bilateral knees. Approved by Paul Trejo M.D. on 10/13/2018 8:36 AM By my electronic signature, I attest that I have personally reviewed the images for this examination and formulated the interpretations and opinions expressed in this report Finalized by Kings Flores M.D. on 10/13/2018 9:15 AM. Dictated by Paul Trejo M.D. on 10/13/2018 7 :14 AM. Tibia & Fibula 2 Views Left Result Date: 10/13/2018 Findings/impression: Interval placement of splinting material about the left lower extremity which limits evaluation of soft tissues and fine osseous detail. Redemonstration of comminuted and displaced fractures of the distal tibial and fibular diaphyses. Similar alignment with persistent posterior angulation of the distal tibial fracture site and overriding of the proximal fibular fracture fragment. Approved by Palu Trejo M.D. on 10/13/2018 10:33 AM By my electronic signature, I attest that I have personally reviewed the images for this examination and formulated the interpretations and opinions expressed in this report Finalized by Kings Flores M.D. on 10/13/2018 10:41 AM. Dictated by Paul Trejo M.D. on 10/13/2018 8:54 AM. Tibia & Fibula 2 Views Left Result Date: 10/13/2018 Findings/impression: Splinting material again noted about the tibia/fibula and ankle which slightly limits evaluation. Redemonstration of comminuted distal tibial fracture. Improved alignment at the fracture site. Improved alignment at the distal fibular fracture which is overall poorly visualized due to overlying casting material. Approved by Paul Trejo M.D. on 10/13/2018 8:46 AM By my electronic signature, I attest that I have personally reviewed the images for this examination and formulated the interpretations and opinions expressed in this report Finalized by Kings Flores M.D. on 10/13/2018 9:15 AM. Dictated by Paul Trejo M.D. on 10/13/2018 7:47 AM. Tibia & Fibula 2 View Bilat Result Date: 10/13/2018 1. Comminuted and displaced fracture of the distal left tibia diaphysis. 2. Comminuted and displaced fracture of the distal left fibular diaphysis. 3. No acute fracture of the right tibia/fibula. Approved by Paul Trejo M.D. on 8:36 AM By my electronic signature, I attest that I have personally reviewed the images for this examination and formulated the interpretations and opinions expressed in this report Finalized by Kings Flores M.D. on 10/13/2018 9:15 AM. Dictated by Paul Trejo M.D. on 10/13/2018 7:11 AM. Israel Orourke MD Pager [phone] SERVICE WAITER/WAITRESS * Michael Goncalves MD - 10/13/2018 6:29 AM ROOM SERVICE WAITER/WAITRESS Ortho Progress Note S: No acute events. No increasing pain requirement overnight. Patient resting comfortably upon entrance into room. Reports pain more well controlled this AM than last night in ED. O: Blood pressure 130/58, pulse 95, temperature 37.3 C (99.2 F), height 165.1 cm (65"), weight 67.2 kg (148 lb 2.4 oz), SpO2 96 %. General: AAOx3, NAD Cardiac: RRR Respirations: Unlabored Abdomen: soft, nt Extremities: left lower extremity: splint c/d/i, no pain with passive stretch of great toe, EHL/FHL function intact, wiggles lesser toes, SILT, distal cap refill < 2 sec No results for input(s): PTT, INR in the last 72 hours. CBC w/Diff Lab Results Component Value Date/Time WBC 9.8 10/13/2018 02:15 AM HGB 8.9 (L) 10/13/2018 02:15 AM HCT 26.6 (L) 10/13/2018 02:15 AM PLTCT 80 (L) 10/13/2018 02:15 AM Basic Metabolic Profile Lab Results Component Value Date/Time NA 135 (L) 10/13/2018 02:15 AM K 3.8 10/13/2018 02:15 AM CL 107 10/13/2018 02:15 AM CO2 22 10/13/2018 02:15 AM GAP 6 10/13/2018 02:15 AM Lab Results Component Value Date/Time BUN 9 10/13/2018 02:15 AM CR 0.72 10/13/2018 02:15 AM GLU 349 (H) 10/13/2018 02:15 AM A/P: Chelsea Victoria Issa Castillo is a 58 y.o. 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 therapy 08/19/2018 Acquired hypothyroidism 08/19/2018 LAD (lymphadenopathy), axillary 08/19/2018 Chronic abdominal pain 07/19/2018 Other dysphagia 07/18/2018 Other constipation 07/18/2018 Intractable cyclical vomiting with nausea 07/18/2018 Gastritis 07/18/2018 Type 1 diabetes, uncontrolled, with neuropathy (HCC) 07/18/2018 Dysthymia 07/18/2018 Anxiety 07/18/2018 Migraine with aura and with status migrainosus, not intractable 07/18/2018 Epigastric pain 07/18/2018 -PT/OT -OR on 10/14 for surgical fixation L tib/fib; consent obtained -Recommend ice, elevation and Q3 hour NV checks -NPO at midnight -WB Status - NWB LLE Micheal Goncalves MD [phone] SERVICE WAITER/WAITRESS * Zen Rogers, PHARMD - 10/13/2018 5:36 AM ROOM SERVICE WAITER/WAITRESS Pharmacy Note: Patients Own Med The following medications have been identified by pharmacy and placed in the secure medication room for storage: RX [id number] Filled at the [facility] in [place], [place] [phone] Carafate 1g/10ml (generic sucralfate) Filled 10/07/2018 Original qty: 414ml Current 270ml May refill x 1 Physician: Dr Migue Patton Siml by mouth before meals and at bedtime The patient may use their own supply of these medications during this admission. All doses should be administered and documented per hospital policy. SERVICE WAITER/WAITRESS * Bianka Canales RN - 10/12/2018 9:00 PM ROOM SERVICE WAITER/WAITRESS Patient arrived on unit via cart accompanied by RN. Patient transferred to the bed with assistance. Assessment completed, refer to flowsheet for details. Orders released, reviewed, and implemented as appropriate. Oriented to surroundings, call light within reach. Plan of care reviewed. Will continue to monitor and assess. SERVICE WAITER/WAITRESS in this encounter H&P Notes * Xochitl Khalil MD - 10/12/2018 7:26 PM ROOM SERVICE WAITER/WAITRESS Admission History and Physical Examination Name: Chelsea Castillo Admission Date: 10/12/2018 Assessment/Plan: 58 year old female with PMH of Type I DM, Diabetic neuropathy, recent diagnosis of SLL/CLL, Hypothyroidism, Orthostatic hypotension, Intractrable nausea/ vomiting, cyclic vomiting syndrome, anxiety/depression, chronic abdominal pain, gastroparesis ?Epilepsy[on Tegretol] who was just discharged today from hospitalist service after being treated for diarrhea, now presented post fall and was found to have left tib-fib fracture Left closed tib-fib fracture post fall: -Short-leg splint was applied in ED under conscious sedation. -Orthosis consulted and has seen patient in ED -Will elevate left lower extremity and ice as needed -Started on every 4 hours neuro vascular checks -They plan on performing operative fixation of the fracture on 10/14, n.p.o. past midnight on 10/13 night -Nonweightbearing left lower extremity -obtained CT of the left lower extremity to evaluate for intra-articular extension of this fracture-showed comminuted fracture of the distal tibial diaphysis with nondisplaced extension to the tibial plafond and medial malleolus. Oblique fracture of the distal fibula with additional nondisplaced fractures of the distal fibular fracture segment. -Started on fentanyl IV as needed oxycodone p.o. as needed for pain control -Started on prophylactic Lovenox which needs to be held prior to surgery -We will consult PT OT Diarrhea - Watery diarrhea, just got discharged from on 10/12 post workup of her diarrhea - Colonosocpy from 09/20/18 was normal except for tubular adenoma - Unclear etiology. She tested negative for C diff during last admission. She had uncontrolled DM with gastroparesis -> diabetic enteropathy. She has CLL/ Hydroxychloroquine -> opportunistic infecitons but Cryptosporidium, fecal leukocytes were negative from 10/10, stool cultures pending from 10/10 -GI was consulted during last admission they thought the diarrhea is consistent with diarrhea of opioid withdrawal -She has unchanged chronic abdominal pain but no F/C/Hematochezia -> hold off on repeat abdominal imaging -Started on IV fluids Orthostatic hypotension - She has history of orthotsatic hypotension, on Florinef 0.3 mg QD -IVF, denies any dizziness currently -Continue Florinef Gastroparesis -is not on any medications currently Chronic abdominal pain - Anna possibley due to anxiety - EGD from 09/26/18 with erythematous mucosa, path with "chemical gastritis, negative for NHL/Hpylori) - It was thought that her abdominal pain was likely functional due to anxiety -Started on oxycodone as needed Cyclic vomiting syndrome Chronic nausea/vomiting Hx of dysphagia - No active Sx on this admission -Monitor TBI - Patient becomes anxious with complex discussions/medical jargon CLL/SLL - Diagnosed on LN biopsy during previous admission -Follow up with heme/onc outpatient -Currently with white count of 17.1 which is likely reactive from the stress of fall and fracture as her white count from 10/08 AM was normal Transient hypertension: -Blood pressure was elevated at 190/89 x 1, was likely due to pain -Blood pressure now better at 130 systolic -We will not start on any antihypertensive regimen as patient has history of orthostatic hypotension, will start on IV hydralazine as needed Hypocalcemia: -Check ionized calcium in a.m. ?Transient hypoxia: -Patient was on 4 L of oxygen in ED, now on room air -We will obtain chest [id number] SIRS: -3/ Sirs criteria-WBC 17.1, RR-25, HR-94 -Likely noninfectious from the stress of fall and fracture -We will hold off on any antibiotics at this time as patient does not have any cough or dysuria per se, does have diarrhea for which all the workup during last admission was negative as above FEN -NS 1 L today -Replace electrolytes as needed -Diabetic diet DVT prophylaxis: SCDs and Lovenox Code status: Full code-discussed with pt and her at bedside Primary Care Physician: Migue Patton III Chief Complaint: Fall and fracture of left leg History of Present Illness: Chelsea Castillo is a 58 y.o. female with PMH as above who was just discharged today after being admitted for diarrhea, fell down as soon as she went home and was getting out of the car and tripped over a cement water spout and fell down and hit her left ankle/leg and started having pain. Pain located in left ankle, constant, 9/10 intensity, sharp, nonradiating. Does report diarrhea 3-4 episodes per day, loose, denies any fevers or chills or chest pain or shortness of breath cough abdominal pain or nausea or vomiting or dysuria per se or headache or dizziness otherwise feels fine. Past Medical History: Diagnosis Date Arthritis Diabetes mellitus type 1 (HCC) Osteoporosis Stomach problems Thyroid disorder Past Surgical History: Procedure Laterality Date GALLBLADDER SURGERY 1989 HX HYSTERECTOMY 12/2001 EYE SURGERY 07/2005 laser eye rietina, eyes were bleeding behind them. CARPAL TUNNEL RELEASE Right 08/2012 right hand HAND SURGERY 09/2013 HERNIA REPAIR 03/2014 ESOPHAGUS SURGERY 03/2014 Esophageal ulcers and healing UPPER GASTROINTESTINAL ENDOSCOPY N/A 09/20/2018 ESOPHAGOGASTRODUODENOSCOPY performed by Charles Chau MD at ENDO/GI COLONOSCOPY N/A 09/20/2018 COLONOSCOPY performed by Charles Chau MD at ENDO/GI UPPER GASTROINTESTINAL ENDOSCOPY 09/20/2018 ESOPHAGOGASTRODUODENOSCOPY BIOPSY performed by Charles Chau MD at ENDO/GI COLONOSCOPY 09/20/2018 COLONOSCOPY BIOPSY performed by Charles Chau MD at ENDO/GI COLONOSCOPY 09/20/2018 COLONOSCOPY EXCISION LESION performed by Charles Chau MD at ENDO/GI UPPER GASTROINTESTINAL ENDOSCOPY N/A 09/26/2018 ESOPHAGOGASTRODUODENOSCOPY with extensive gastric biopsies, concern for lymphoma involving GI tract performed by Kymberly Us MD at ENDO/GI UPPER GASTROINTESTINAL ENDOSCOPY 09/26/2018 ESOPHAGOGASTRODUODENOSCOPY WITH BIOPSY - FLEXIBLE performed by Kymberly Us MD at ENDO/GI Family History Problem Relation Age of Onset [...] Never Used Alcohol use No Drug use: No Sexual activity: Not on file Other Topics Concern Not on file Social History Narrative No narrative on file Immunizations (includes history and patient reported): Immunization History Administered Date(s) Administered Flu Vaccine=>65 YO High-Dose (PF) 08/19/2018 Allergies: Sulfa (sulfonamide antibiotics) Medications: (Not in a hospital admission) Review of Systems: A comprehensive 12 point review of organ systems was negative except for left ankle/lower leg pain, diarrhea. Physical Exam: Vital Signs: Last Filed In 24 Hours Vital Signs: 24 Hour Range BP: 134/74 (10/12 1920) Temp: 37.1 C (98.7 F) (10/12 1902) Pulse: 94 (10/12 1920) Respirations: 25 PER MINUTE (10/12 1920) SpO2: 98 % (10/12 1920) O2 Delivery: Nasal Cannula (10/12 1902) SpO2 Pulse: 94 (10/12 1920) BP: (110-190)/(65-90) Temp: [36.6 C (97.8 F)-37.1 C (98.8 F)] Pulse: [82-96] Respirations: [9 PER MINUTE-30 PER MINUTE] SpO2: [94 %-100 %] O2 Delivery: Nasal Cannula Intensity Pain Scale (Self Report): 8 (10/12/181901) General: Alert, awake, oriented x 3 , cooperative, in mild distress due to pain , appears stated age Head: Normocephalic, without obvious abnormality, atraumatic Eyes: Conjunctivae/corneas clear Nose: Nares normal. Mucosa normal. No drainage or sinus tenderness Throat: Lips, mucosa and tongue slightly dry Neck: Supple, no adenopathy Lungs: Clear to auscultation bilaterally Heart: Regular rate and rhythm, S1, S2 normal, no murmur Abdomen: Soft, non-tender. Bowel sounds normal. No masses. No organomegaly. Extremities: Extremities normal, no cyanosis or edema right lower extremity, left lower extremity in splint Skin: Skin color, texture, turgor normal. Lymph nodes: Cervical, supraclavicular and axillary nodes normal Neurologic: Non focal grossly Lab/Radiology/Other Diagnostic Tests: 24-hour labs: Results for orders placed or performed during the hospital encounter of (from the past 24 hour(s)) CBC AND DIFF Collection Time: 10/12/18 3:30 PM Result Value Ref Range White Blood Cells 17.1 (H) 4.5 - 11.0 K/UL RBC 4.30 4.0 - 5.0 M/UL Hemoglobin 12.4 12.0 - 15.0 GM/DL Hematocrit 38.6 36 - 45 % MCV 89.8 80 - 100 FL MCH 28.9 26 - 34 PG MCHC 32.2 32.0 - 36.0 G/DL RDW 17.5 (H) 11 - 15 % Platelet Count 182 150 - 400 K/UL MPV 8.6 7 - 11 FL Neutrophils 82 (H) 41 - 77 % Lymphocytes 10 (L) 24 - 44 % Monocytes 7 4 - 12 % Eosinophils 1 0 - 5 % Basophils 0 0 - 2 % Absolute Neutrophil Count 14.00 (H) 1.8 - 7.0 K/UL Absolute Lymph Count 1.80 1.0 - 4.8 K/UL Absolute Monocyte Count 1.20 (H) 0 - 0.80 K/UL Absolute Eosinophil Count 0.10 0 - 0.45 K/UL Absolute Basophil Count 0.10 0 - 0.20 K/UL COMPREHENSIVE METABOLIC PANEL Collection Time: 10/12/18 3:30 PM Result Value Ref Range Sodium 137 137 - 147 MMOL/L Potassium 3.7 3.5 - 5.1 MMOL/L Chloride 105 98 - 110 MMOL/L Glucose 151 (H) 70 - 100 MG/DL Blood Urea Nitrogen 11 7 - 25 MG/DL Creatinine 0.81 0.4 - 1.00 MG/DL Calcium 7.9 (L) 8.5 - 10.6 MG/DL Total Protein 5.5 (L) 6.0 - 8.0 G/DL Total Bilirubin 0.3 0.3 - 1.2 MG/DL Albumin 3.3 (L) 3.5 - 5.0 G/DL Alk Phosphatase 79 25 - 110 U/L AST (SGOT) 22 7 - 40 U/L CO2 25 21 - 30 MMOL/L ALT (SGPT) 24 7 - 56 U/L Anion Gap 7 3 - 12 eGFR Non >60 >60 mL/min eGFR >60 >60 mL/min Glucose: (!) 151 (10/12/18 1530) Pertinent radiology reviewed. Reviewed x-rays of tibia and fibula, CT lower extremity report reviewed Xochitl Khalil MD SERVICE WAITER/WAITRESS in this encounter Consult Notes * Sandra Rowan APRN - 10/15/2018 10:11 AM ROOM SERVICE WAITER/WAITRESS Associated Order(s): CONSULT NURSING PAIN MANAGEMENT Nursing Pain Management Initial Consult Pt. Name: Chelsea Castillo Admit Date: 10/12/2018 Room: [place] [address] Reason for consult: Taper opioids; acute/post operative pain Suggestions to consider: The primary team is responsible for all orders. Patient will benefit from a multimodal pain regimen, which includes non- pharmacological interventions: Encourage patient to watch TV, listen to music, or read to promote relaxation and provide distraction from pain. Offered to bring patient items for distraction, but she declined. Pt feels ice is helpful- would continue intermittently. Pharmacological interventions: Would schedule acetaminophen 650 mg PO every 6 hours while awake (rather than PRN) for a non-opioid analgesic. Consider alternate opioid- pt feels morphine is effective, so could use morphine oral solution (liquid may be better tolerated in gastroparesis)- 7.5- 15 mg PO every 4 hours PRN pain. Would change morphine IV to every 6 hours PRN pain not controlled by oral regimen. Patient counseled about risk of use of benzodiazepines and opioids. Given fracture, she will likely require opioids for a period of time. Pt will need to be closely monitored for side effects. Anticipated D/C Planning: Case management notes indicate likely d/c to SNF. This would likely be safest plan given complexity of her medication regimen and recent fall. Summary: Ms. Elizabeth is a 58 yo female with past history of DM, hypothyroid, CLL, hypotension, cyclic vomiting syndrome, chronic abdominal pain, gastroparesis, epilepsy who was discharged on 10/12/18 after a short stay with functional diarrhea. Pt arrived home and tripped over a faucet and fell, fracturing left tib-fib. Pt reports chronic abdominal pain that is essentially at baseline, but now acute post-operative pain after the nailing of the tibia on 10/14/18. She is using oxycodone which she says "maybe helps", and IV morphine- which patient reports is superior to the oxycodone, but lasts only about 20 minutes. She had been taking hydrocodone at home for the chronic abd pain, as well as Lyrica and Cymbalta for diabetic neuropathy. The hydrocodone was stopped during the last admission due to delayed gastric emptying. Pt has flat affect and is vague in her answers to questions. It is somewhat difficult to obtain a full assessment. For now, it may be helpful to try an alternative oral opioid, morphine, to see if this provides her with better relief. Can then proceed with tapering off of IV opioids. Thank you for allowing our service to participate in the care of this patient. Please page with questions/concerns. Sandra Rowan APRN, ACNS-BC, RN-BC, AP-PMN Clinical Nurse Specialist, Pain Management *[phone] After hours pager *[phone] Current Facility-Administered Medications: acetaminophen (TYLENOL) tablet 650 mg, 650 mg, Oral, Q6H PRN, Poddutoori, Xochitl, MD, 650 mg at 10/14/18 211 acetaminophen/lidocaine/antacid DS(#) (GI COCKTAIL) 1:1:3 suspension 30 mL , 30 mL, Oral, QID PRN, Xochitl Khalil MD, 30 mL at 10/15/18 0731 ALPRAZolam (XANAX) tablet 1 mg, 1 mg, Oral, BID PRN, Xochitl Khalil MD , 1 mg at 10/15/18 0840 atorvastatin (LIPITOR) tablet 40 mg, 40 mg, Oral, QDAY, Xochitl Khalil MD, 40 mg at 10/14/18 1357 carBAMazepine (TEGRETOL) tablet 400 mg, 400 mg, Oral, QDAY, Xochitl Khalil MD, 400 mg at 10/14/18 1357 cetirizine (ZYRTEC) tablet 10 mg, 10 mg, Oral, QAM8, Xochitl Khalil MD , 10 mg at 10/13/18 0835 cholecalciferol (VITAMIN D-3) tablet 5,000 Units, 5,000 Units, Oral, QDAY, Xochitl Khalil MD, 5,000 Units at 10/14/18 1356 dicyclomine (BENTYL) capsule 10 mg, 10 mg, Oral, ACHS, Xochitl Khalil MD, 10 mg at 10/15/[address] (CYMBALTA) capsule 90 mg, 90 mg, Oral, QDAY, Xochitl Khalil MD, 90 mg at 10/14/18 1356 enoxaparin (LOVENOX) syringe 40 mg, 40 mg, Subcutaneous, QDAY(21), Xochitl Khalil MD, 40 mg at 10/14/18 2116 ferrous gluconate tablet 324 mg, 324 mg, Oral, QDAY w/breakfast, Xochitl Khalil MD, 324 mg at 10/13/18 0834 fludrocortisone (FLORINEF) tablet 0.3 mg, 0.3 mg, Oral, QDAY, Xochitl Khalil MD, 0.3 mg at 10/14/18 1357 fluticasone (FLONASE) nasal spray 1 spray, 1 spray, Each Nostril, QDAY, Xochitl Khalil MD hydrALAZINE (APRESOLINE) injection 10 mg, 10 mg, Intravenous, Q6H PRN, Xochitl Khalil MD hydroxychloroquine (PLAQUENIL) tablet 200 mg, 200 mg, Oral, QDAY, Xochitl Khalil MD, 200 mg at 10/14/18 1357 insulin aspart U-100 (NOVOLOG FLEXPEN) injection PEN 0-14 Units, 0-14 Units , Subcutaneous, ACHS, Israel Orourke MD, 2 Units at 10/14/18 2116 insulin aspart U-100 (NOVOLOG FLEXPEN) injection PEN 5 Units, 5 Units, Subcutaneous, TID w/ meals, Israel Orourke MD, 5 Units at 10/15/18 0837 insulin glargine (LANTUS SOLOSTAR, BASAGLAR) injection PEN 12 Units, 12 Units, Subcutaneous, QHS(22), Israel Orourke MD, 12 Units at 10/14/18 2255 lactated ringers infusion, 1,000 mL, Intravenous, Continuous, Paul Manley MD levothyroxine (SYNTHROID) tablet 175 mcg, 175 mcg, Oral, QDAY 30 min before breakfast, Xochitl Khalil MD, 175 mcg at 10/15/18 0634 loperamide (IMODIUM A-D) capsule 2 mg, 2 mg, Oral, QID PRN, Xochitl Khalil MD montelukast (SINGULAIR) tablet 10 mg, 10 mg, Oral, QHS, Xochitl Khalil MD, 10 mg at 10/14/18 2117 morphine injection syringe 2-4 mg, 2-4 mg, Intravenous, Q2H PRN, Israel Orourke MD, 2 mg at 10/15/18 0606 ondansetron (ZOFRAN) injection 4 mg, 4 mg, Intravenous, Q4H PRN, Neri Piper MD oxyCODONE (ROXICODONE, OXY-IR) tablet 10-15 mg, 10-15 mg, Oral, Q4H PRN, Neri Piper MD, 15 mg at 10/15/[address] (PROTONIX) tablet 40 mg, 40 mg, Oral, QDAY, Xochitl Khalil MD, 40 mg at 10/14/18 1357 pentosan polysulfate sodium (ELMIRON) capsule 100 mg, 100 mg, Oral, TID before meals, Xochitl Khalil MD, 100 mg at 10/15/18 0634 potassium chloride SR (K-DUR) tablet 10 mEq, 10 mEq, Oral, QDAY, Xochitl Khalil MD, 10 mEq at 10/14/18 1356 pregabalin (LYRICA) capsule 150 mg, 150 mg, Oral, BID, Xochitl Khalil MD, 150 mg at 10/14/18 211 prochlorperazine maleate (COMPAZINE) tablet 10 mg, 10 mg, Oral, Q6H PRN, Deepthi Veras MD, 10 mg at 10/15/18 0757 pyridoxine (VITAMIN B-6) tablet 50 mg, 50 mg, Oral, QDAY, Xochitl Khalil MD, 50 mg at 10/14/18 135 scopolamine (TRANSDERM-SCOP) patch 1 patch, 1 patch, Transdermal, Q72H*, Israel Orourke MD, 1 patch at 10/15/18 0846 SUCRALFATE 1gm/10ml (Patients own medication) , 1 g, Oral, ACHS, Deepthi Veras MD, 1 g at 10/15/18 0635 tiZANidine (ZANAFLEX) tablet 4 mg, 4 mg, Oral, Q6H PRN, Xochitl Khalil MD, 4 mg at 10/14/18 1626 vitamins, B complex tablet 1 tablet, 1 tablet, Oral, QDAY, Xohcitl Khalil MD, 1 tablet at 10/14/18 1355 vitamins, multiple tablet 1 tablet, 1 tablet, Oral, QDAY, Xochitl Khalil MD, 1 tablet at 10/14/18 1357 zolpidem (AMBIEN) tablet 5 mg, 5 mg, Oral, QHS PRN, Israel Orourke MD, 5 mg at 10/14/18 2117 Prior to Admission Analgesic Regimen Pt had previously been using hydrocodone/apap 325- 1 BID at home. Last admission this was stopped upon discharge given concerns for gastroparesis and concurrent use of benzodiazepines. Pt does use pregabalin and duloxetine for neuropathic pain at baseline. Opioid Calculations: Date:10/13/18 Morphine 8 mg IV ~ 24 mg Fentanyl 25 mcg IV ~ 2.5 mg Oxycodone 50 mg Total oral morphine equivalent ~ 76.5 mg Date:10/14/18 Morphine 4 mg IV ~ 12 mg Oxycodone 45 mg Total oral morphine equivalent ~ 57 mg Assessment: (W) Words to describe pain:sharp and achy pain in abdomen; sharp and burning pain in left leg (I) Intensity of pain:severe- 9-10 Patient's personal pain goal:5 (L) Location of pain:epigastric abdominal pain; left knee to foot (D) Duration of pain:constant (A) Aggravating/Alleviating factors:abd- worse with certain foods; today having ian flank soreness (may be due to gait belt, per pt); leg better with ice and elevation- more painful when dependent Last Bowel Movement: 10/13/18 Vitals: 10/14/18 2146 10/15/18 0235 10/15/18 0524 10/15/18 0931 BP: 141/73 137/59 158/68 156/81 Pulse: 83 97 95 97 Temp: 37.3 C (99.1 F) 37.1 C (98.8 F) 37.2 C (98.9 F) 37.1 C ( 98.7 F) SpO2: 98% 93% 98% 94% Weight: Height: Allergies Allergen Reactions Sulfa (Sulfonamide Antibiotics) HIVES Basic Metabolic Profile Lab Results Component Value Date/Time NA 138 10/15/2018 04:02 AM K 3.7 10/15/2018 04:02 AM CL 103 10/15/2018 04:02 AM CO2 28 10/15/2018 04:02 AM GAP 7 10/15/2018 04:02 AM Lab Results Component Value Date/Time BUN 7 10/15/2018 04:02 AM CR 0.71 10/15/2018 04:02 AM GLU 242 (H) 10/15/2018 04:02 AM `Hemogram Lab Results Component Value Date/Time WBC 11.5 (H) 10/15/2018 04:02 AM RBC 2.83 (L) 10/15/2018 04:02 AM HGB 8.5 (L) 10/15/2018 04:02 AM HCT 25.5 (L) 10/15/2018 04:02 AM MCV 90.2 10/15/2018 04:02 AM MCH 30.1 10/15/2018 04:02 AM MCHC 33.4 10/15/2018 04:02 AM RDW 16.7 (H) 10/15/2018 04:02 AM PLTCT 108 (L) 10/15/2018 04:02 AM MPV 9.0 10/15/2018 04:02 AM SERVICE WAITER/WAITRESS * Michael Goncalves MD - 10/12/2018 6:45 PM ROOM SERVICE WAITER/WAITRESS Associated Order(s): CONSULT ORTHOPEDIC SURGERY PHYSICIAN [facility] Orthopedic Consult Note Admission Date: 10/12/2018 Chief Complaint/Reason for Consult: Distal tibia/fibula fractures Assessment/Plan Chelsea Castillo is a 58 y.o. female with left, closed distal one third tibia and fibula fractures status post fall -Utilizing conscious sedation performed by the ED, a well-padded, short-leg splint was applied. The patient tolerated the procedure well. -Operative Intervention -the patient will require operative fixation for this fracture, will plan for OR on 10/14 -Recommend ice, elevation and Q3 hour NV checks -Please make NPO at midnight prior to OR -WB Status - NWB LLE -Will obtain CT of the left lower extremity to evaluate for intra-articular extension of this fracture -Antibiotics / Tetanus -none indicated -Pain Control per ED -Diet: Per primary, NPO at midnight of 10/14 -DVT PPX - Mechanical, please hold chemoprophylaxis prior to OR Will discuss with staff Michael Goncalves MD [id number] History of Present Illness: Chelsea Castillo is a 58 y.o. female with a past medical history of diabetes, recent diagnosis of CLL and chronic abdominal pain who presents to the ED with a chief complaint of left leg pain. The patient reports that she was discharged from the hospital earlier today, on and after getting home experienced a ground-level fall with a twisting injury of her left lower extremity. After the fall, the patient reports immediate pain about the left ankle. She denies any numbness or tingling of the left lower extremity. Past Medical History: Diagnosis Date Arthritis Diabetes mellitus type 1 (HCC) Osteoporosis Stomach problems Thyroid disorder Past Surgical History: Procedure Laterality Date GALLBLADDER SURGERY 1989 HX HYSTERECTOMY 12/2001 EYE SURGERY 07/2005 laser eye rietina, eyes were bleeding behind them. CARPAL TUNNEL RELEASE Right 08/2012 right hand HAND SURGERY 09/2013 HERNIA REPAIR 03/2014 ESOPHAGUS SURGERY 03/2014 Esophageal ulcers and healing UPPER GASTROINTESTINAL ENDOSCOPY N/A 09/20/2018 ESOPHAGOGASTRODUODENOSCOPY performed by Charles Chau MD at ENDO/GI COLONOSCOPY N/A 09/20/2018 COLONOSCOPY performed by Charles Chau MD at ENDO/GI UPPER GASTROINTESTINAL ENDOSCOPY 09/20/2018 ESOPHAGOGASTRODUODENOSCOPY BIOPSY performed by Charles Chau MD at ENDO/GI COLONOSCOPY 09/20/2018 COLONOSCOPY BIOPSY performed by Charles Chau MD at ENDO/GI COLONOSCOPY 09/20/2018 COLONOSCOPY EXCISION LESION performed by Charles Chau MD at ENDO/GI UPPER GASTROINTESTINAL ENDOSCOPY N/A 09/26/2018 ESOPHAGOGASTRODUODENOSCOPY with extensive gastric biopsies, concern for lymphoma involving GI tract performed by Kymberly Us MD at ENDO/GI UPPER GASTROINTESTINAL ENDOSCOPY 09/26/2018 ESOPHAGOGASTRODUODENOSCOPY WITH BIOPSY - FLEXIBLE performed by Kymberly Us MD at ENDO/GI Social History Substance Use Topics Smoking status: Never Smoker Smokeless tobacco: Never Used Alcohol use No Social Hx: -Tobacco Hx: Denies, -Alcohol Hx: Denies -Illicit substance: Denies Family Hx: - There is otherwise no pertinent family hx Allergies: Sulfa (sulfonamide antibiotics) Outpatient Prescriptions as of 10/12/2018 Medication Sig Dispense Refill acetaminophen/lidocaine/antacid DS(#) (GI [...] affected area four times daily as needed. dicyclomine (BENTYL) 10 mg capsule Take one capsule by mouth before meals and at bedtime for 14 days. [address] (CYMBALTA) 30 mg capsule Take [...] 100 unit/mL (3 mL) injection pen Inject 13 Units under the skin at bedtime daily. 15 mL 0 insulin lispro(+) (HUMALOG KWIKPEN INSULIN) 100 unit/mL injection PEN Inject 8 units subcutaneously with breakfast and lunch, and [...] mouth at bedtime as needed for Sleep. Review of Systems: Positive: Left lower extremity pain Negative: Numbness or tingling of the left lower extremity A 10 Point Review of Systems was otherwise negative. Vital Signs: Last Filed in 24 hours BP: 150/76 (10/12 1849) Temp: 36.8 C (98.2 F) (10/12 1815) Pulse: 92 (10/12 1849) Respirations: 14 PER MINUTE (10/12 1849) SpO2: 99 % (10/12 1849) O2 Delivery: Nasal Cannula (10/12 1849) SpO2 Pulse: 93 (10/12 1830) Physical Exam: Constitutional: Alert, intermittently crying HEENT: Normocephalic, no scleral icterus Respiratory: Unlabored respirations on RA Cardiovascular: Regular rate Abdomen: Nondistended, NTTP Lymph: No significant lymphedema, no lymphadenopathy of affected extremity Skin: Left lower extremity: No open lacerations or abrasions Musculoskeletal: Left lower extremity: Obvious deformity about the left ankle. Patient able to flex and extend great toe and lesser toes minimally 2/2 pain. Patient reports mild pain w/ passive stretch of great toe, compartments soft. Patient reports pain w/ light touch over dorsal and plantar aspects of foot. SILT. 2+ DPP. Neurologic: Grossly intact, moving all extremities spontaneously Lab/Radiology/Other Diagnostic Tests: CBC w/Diff Lab Results Component Value Date/Time WBC 17.1 (H) 10/12/2018 03:30 PM HGB 12.4 10/12/2018 03:30 PM HCT 38.6 10/12/2018 03:30 PM PLTCT 182 10/12/2018 03:30 PM Inflammatory Markers Lab Results Component Value Date/Time ESR <1 09/18/2018 01:43 AM CRP 0.16 09/18/2018 01:43 AM Basic Metabolic Profile Lab Results Component Value Date/Time NA 137 10/12/2018 03:30 PM K 3.7 10/12/2018 03:30 PM CL 105 10/12/2018 03:30 PM CO2 25 10/12/2018 03:30 PM GAP 7 10/12/2018 03:30 PM BUN 11 10/12/2018 03:30 PM CR 0.81 10/12/2018 03:30 PM GLU 151 (H) 10/12/2018 03:30 PM Coagulation Studies No results found for: PT, PTT, INR Radiology: Tib/fib films demonstrate comminuted distal 1/3 tibia and fibula fractures Michael Goncalves MD [phone] SERVICE WAITER/WAITRESS in this encounter Miscellaneous Notes * Care Plan - Jannet Velasco RN - 10/18/2018 12:29 PM ROOM SERVICE WAITER/WAITRESS Problem: Infection, Risk of, Central Venous Catheter-Associated Bloodstream Infection Goal: Absence of CVC Associated Bloodstream infection Outcome: Goal Achieved Date Met: 10/18/18 Patient discharged with no signs/symptoms of CLABSI. Problem: Falls, High Risk of Goal: Absence of falls-Adult Patient Outcome: Goal Achieved Date Met: 10/18/18 Patient had no falls this hospitalization. Problem: Discharge Planning Goal: Participation in plan of care Outcome: Goal Achieved Date Met: 10/18/18 Patient participated in plan of care. Goal: Knowledge regarding plan of care Outcome: Goal Achieved Date Met: 10/18/18 Patient verbalized understanding of plan of care. Goal: Prepared for discharge Outcome: Goal Achieved Date Met: 10/18/18 Patient is prepared for discharge. Problem: Pain Goal: Management of pain Outcome: Goal Achieved Date Met: 10/18/18 Patient reports pain is controlled. Goal: Knowledge of pain management Outcome: Goal Achieved Date Met: 10/18/18 Patient verbalizes understanding of pain management. Problem: Skin Integrity Goal: Skin integrity intact Outcome: Goal Achieved Date Met: 10/18/18 Patient discharged with skin intact, except healing surgical incisions. Problem: Glucose Management Goal: Absence of hyperglycemia Outcome: Goal Achieved Date Met: 10/18/18 Patient's blood glucose is controlled with diet and insulin. Goal: Absence of Hypoglycemia Outcome: Goal Achieved Date Met: 10/18/18 Patient's blood sugar is controlled with diet and insulin. Problem: Mobility/Activity Intolerance Goal: Maximize functional ADL's and mobility outcomes Outcome: Goal Achieved Date Met: 10/18/18 Patient will continue to work to maximize ADL and mobility outcomes after discharge. Problem: Nutrition Deficit Goal: Adequate nutritional intake Outcome: Goal Achieved Date Met: 10/18/18 Patient has adequate nutritional intake. SERVICE WAITER/WAITRESS * Case Mgmt DC Plan - Oanh Sabine - 10/18/2018 12:10 PM ROOM SERVICE WAITER/WAITRESS CORDUROY CUTTER OPERATOR Note Transfer packet completed and placed in patient's wall unit for discharge. Sabine Hugo Java Consultant SERVICE WAITER/WAITRESS * Case Mgmt DC Plan - Luz Benjamin - 10/18/2018 9:04 AM ROOM SERVICE WAITER/WAITRESS Case Management Progress NoteNAME:Chelsea Castillo :1960 AGE: 58 y.o. ADMISSION DATE: 10/12/2018 DAYS ADMITTED: LOS: 6 days Todays Date: 10/18/2018 Plan: DC to [facility] via facility transport at 1430. RN Report# . Interventions ? Support Support: Pt/Family Updates re:POC or DC Plan SW left VM with pt's spouse (who has previously made aware of DC plan by primary SW and is in agreement) confirming DC plan for today at 1430 and inviting return call with any concerns. ? Info or Referral ? Discharge Planning Discharge Planning: [facility] ROSINA notified by attending that pt stable for DC to SNF today. SW confirmed stability with Isidro at [facility] who confirmed 1430 pickers material handlers time. SW tasked CORDUROY CUTTER OPERATOR for transfer packet. SW notified RN of DC timeline. DC orders already in. ROSINA faxed DC orders and scripts for narcotics to facility. ROSINA notified by Isidro at [facility] that a number of pt's DC meds were not on original referral. Isidro noted that the following meds would either need to be provided by family or held while at facility. ROSINA discussed with attending physician. Plan for each med listed below. Elmiron - hold Premarin vaginal - hold Plaquenil - hold Clobetasol solution - hold Ferrous Gluconate - hold Florinef - see if family can supply. ROSINA phoned pt's . Reviewed that [facility] would be unable to provide pt' s Florinef. agreeable to provide home supply while pt is at facility. Update provided to Isidro at [facility]. ? Medication Needs ? Financial ? Legal ? Other Disposition ? Expected Discharge Date Expected Discharge Date: 10/18/18 Expected Discharge Time: 1430 ? Transportation ? Next Level of Care (Acute Psych discharges only) ? Discharge Disposition Durable Medical Equipment No service has been selected for the patient. Destination No service has been selected for the patient. Home Care No service has been selected for the patient. Dialysis/Infusion No service has been selected for the patient. Luz Benjamin LMSW Phone: [phone] SERVICE WAITER/WAITRESS * Case Mgmt DC Plan - JuvenalKalpana bryanJosette - 10/17/2018 11:58 AM ROOM SERVICE WAITER/WAITRESS Case Management Progress NoteNAME:Chelsea Castillo :1960 AGE: 58 y.o. ADMISSION DATE: 10/12/2018 DAYS ADMITTED: LOS: 5 days Todays Date: 10/17/2018 Plan Pt to DC to [facility] Via facility transport Sunday pending pain control and medical stability. Addendum: pt to DC to [facility] via facility transport with foot propped Sunday at 1430 pending medical stability. Interventions ? Support Support: Pt/Family Updates re:POC or DC Plan ? Info or Referral ? Discharge Planning Discharge Planning: [facility] ROSINA f/u with [facility] who confirms they can accept-ROSINA sent clinical updates. ROSINA received called from [facility] explaining they can accept pt. ROSINA met with pt and provided update on DCP. Pt expressed preference on [facility]. ROSINA contacted [facility] and provided update on [facility]. ROSINA contacted [facility] and provide update on pt preference. ROSINA contacted RN and confirmed pt can Dc via with foot elevated. UPDATE:1530 Sw informed by isidro [phone] with [facility] they can accept pt-Dc time set for 1430 Sunday pending pending medical stability. ROSINA contacted spouse [phone] who is agreeable to DCP. ? Medication Needs ? Financial ? Legal ? Other Disposition ? Expected Discharge Date Expected Discharge Date: 10/18/18 ? Transportation ? Next Level of Care (Acute Psych discharges only) ? Discharge Disposition Durable Medical Equipment No service has been selected for the patient. Destination No service has been selected for the patient. Home Care No service has been selected for the patient. Dialysis/Infusion No service has been selected for the patient. -Lovely Plunkett LMSW *[id number] SERVICE WAITER/WAITRESS * Case Mgmt DC Plan - Josette Plunkett - 10/17/2018 8:51 AM ROOM SERVICE WAITER/WAITRESS Case Management Progress NoteNAME:Chelsea Castillo :1960 AGE: 58 y.o. ADMISSION DATE: 10/12/2018 DAYS ADMITTED: LOS: 5 days Todays Date: 10/17/2018 Plan ROSINA anticipates pt to DC to placement pending family agreement and facility acceptance. Interventions ? Support Support: Pt/Family Updates re:POC or DC Plan Rosina reviewed EMR and discussed POC with team, anticipated DC Sunday pending pain control. ? Info or Referral ? Discharge Planning Discharge Planning: [facility] Pending bedside eval-pt accepted by: Savage ALMAGUER f/u with [facility]: [phone] requesting callback. Pt denied by:medicalodAugie ? Medication Needs ? Financial ? Legal ? Other Disposition ? Expected Discharge Date Expected Discharge Date: 10/18/18 ? Transportation ? Next Level of Care (Acute Psych discharges only) ? Discharge Disposition Durable Medical Equipment No service has been selected for the patient. Destination No service has been selected for the patient. Home Care No service has been selected for the patient. Dialysis/Infusion No service has been selected for the patient. -Lovely Plunkett LMSW *[id number] SERVICE WAITER/WAITRESS * Case Mgmt DC Plan - Josette Plunkett - 10/16/2018 10:39 AM ROOM SERVICE WAITER/WAITRESS Case Management Progress NoteNAME:Chelsea Castillo :1960 AGE: 58 y.o. ADMISSION DATE: 10/12/2018 DAYS ADMITTED: LOS: 4 days Todays Date: 10/16/2018 Plan SW anticipates pt to DC to placement pending family agreement and facility acceptance. Interventions ? Support Support: Pt/Family Updates re:POC or DC Plan ? Info or Referral ? Discharge Planning Discharge Planning: [facility] Sw discussed PT recs- preference is placement rather than OP PT. Sw attempted 2x itmes to meet with pt at bedside-pt unavailable. Sw called [phone] and left VM requesting callback. UPDATE:1200 SW met with pt and spouse and discussed difference between SNF vs. OP PT. Pt and spouse in agreement for SNF. SW reviewed SNF list near [place] family in agreement in SW sending referrals to in preference order with having private room only: [facility]: SW received VM from admissions [phone] requesting verification on [facility]. SW called back and left VM with update. UPDATE: Sw contacted stating facility can accept pending bedside eval morning. [facility]: SW received call from admissions [phone] verifying [facility]. facility reports they will review and contact SW. [facility]: SW received VM from [facility] in admissions requesting callback. SW called back [phone] and left VM requesting callback. UPDATE: facility contacted Sw with denail ? Medication Needs ? Financial ? Legal ? Other Disposition ? Expected Discharge Date Expected Discharge Date: 10/18/18 ? Transportation ? Next Level of Care (Acute Psych discharges only) ? Discharge Disposition Durable Medical Equipment No service has been selected for the patient. Destination No service has been selected for the patient. Home Care No service has been selected for the patient. Dialysis/Infusion No service has been selected for the patient. -Lovely Plunkett LMSW *[id number] SERVICE WAITER/WAITRESS * Patient Education - Delilah Carpenter - 10/16/2018 6:24 AM ROOM SERVICE WAITER/WAITRESS Education binder initiated and left at patient bedside for review in am. SERVICE WAITER/WAITRESS * Case Mgmt DC Plan - Josette Plunkett - 10/15/2018 11:16 AM ROOM SERVICE WAITER/WAITRESS Case Management Progress NoteNAME:Chelsea Castillo :1960 AGE: 58 y.o. ADMISSION DATE: 10/12/2018 DAYS ADMITTED: LOS: 3 days Todays Date: 10/15/2018 Plan DCP Ongoing: pt to Dc home with OP PT vs. SNF pending Pt eval when appropriate. Interventions ? Support Support: Pt/Family Updates re:POC or DC Plan SW reviewed EMR and discussed POC with team, anticipated DC Sunday. Pt DC on 10/12 from [facility]-pt admitted after fall, pt went to OR today for L tibia fracture. PT/OT recommending placement. No IV abx at DC. ? Info or Referral ? Discharge Planning Discharge Planning: [facility] SW attempted to meet with pt 2x times today to provide SNF list closer to [place]. Pt unavailable for both attempts. Sw left list in pt's room with contact number. ROSINA did meet with spouse outside pt's room and requested Sw send referrals to; [facility] [address]:ROSINA f/u at [phone] who confirm they are OP Pt and pt needs script at DC. [facility]: [address]: ROSINA f/u [phone] who confirms they are Op Pt as well. ROSINA discussed family preference with Pt-plan to eval today if appropriate and determine if pt can DC with Op Pt. ? Medication Needs ? Financial ? Legal ? Other Disposition ? Expected Discharge Date Expected Discharge Date: 10/16/18 ? Transportation ? Next Level of Care (Acute Psych discharges only) ? Discharge Disposition Durable Medical Equipment No service has been selected for the patient. Destination No service has been selected for the patient. Home Care No service has been selected for the patient. Dialysis/Infusion No service has been selected for the patient. -Lovely Plunkett LMSW *[id number] SERVICE WAITER/WAITRESS * Anesthesia Post Op Day 1 - Paul Chen SRNA - 10/15/2018 10:31 AM ROOM SERVICE WAITER/WAITRESS Anesthesia Follow-Up Evaluation: Post-Procedure Day One Name: Chelsea Castillo : 1960 Age: 58 y.o. Sex: female Procedure Date: 10/14/2018 Procedure: Procedure(s): OPEN TREATMENT TIBIAL SHAFT FRACTURE IM NAIL Physical Assessment Height: 165.1 cm (65") Weight: 67.2 kg (148 lb 2.4 oz) Vital Signs (Last Filed in 24 hours) BP: 156/81 (10/15 931) Temp: 37.1 C (98.7 F) (10/15 931) Pulse: 97 (10/15 931) Respirations: 16 PER MINUTE (10/15 931) SpO2: 94 % (10/15 931) O2 Delivery: None (Room Air) (10/15 931) SpO2 Pulse: 88 (10/14 1145) Patient History Allergies Allergies Allergen Reactions Sulfa (Sulfonamide Antibiotics) HIVES Medications Scheduled Meds: atorvastatin (LIPITOR) tablet 40 mg 40 mg Oral QDAY carBAMazepine (TEGRETOL) tablet 400 mg 400 mg Oral QDAY cetirizine (ZYRTEC) tablet 10 mg 10 mg Oral QAM8 cholecalciferol (VITAMIN D-3) tablet 5,000 Units 5,000 Units Oral QDAY dicyclomine (BENTYL) capsule 10 mg 10 mg Oral ACHS duloxetine DR (CYMBALTA) capsule 90 mg 90 mg Oral QDAY enoxaparin (LOVENOX) syringe 40 mg 40 mg Subcutaneous QDAY(21) ferrous gluconate tablet 324 mg 324 mg Oral QDAY w/breakfast fludrocortisone (FLORINEF) tablet 0.3 mg 0.3 mg Oral QDAY fluticasone (FLONASE) nasal spray 1 spray 1 spray Each Nostril QDAY hydroxychloroquine (PLAQUENIL) tablet 200 mg 200 mg Oral QDAY insulin aspart U-100 (NOVOLOG FLEXPEN) injection PEN 0-14 Units 0-14 Units Subcutaneous ACHS insulin aspart U-100 (NOVOLOG FLEXPEN) injection PEN 5 Units 5 Units Subcutaneous TID w/ meals insulin glargine (LANTUS SOLOSTAR, BASAGLAR) injection PEN 12 Units 12 Units Subcutaneous QHS(22) levothyroxine (SYNTHROID) tablet 175 mcg 175 mcg Oral QDAY 30 min before breakfast montelukast (SINGULAIR) tablet 10 mg 10 mg Oral QHS pantoprazole DR (PROTONIX) tablet 40 mg 40 mg Oral QDAY pentosan polysulfate sodium (ELMIRON) capsule 100 mg 100 mg Oral TID before meals potassium chloride SR (K-DUR) tablet 10 mEq 10 mEq Oral QDAY pregabalin (LYRICA) capsule 150 mg 150 mg Oral BID pyridoxine (VITAMIN B-6) tablet 50 mg 50 mg Oral QDAY scopolamine (TRANSDERM-SCOP) patch 1 patch 1 patch Transdermal Q72H* SUCRALFATE 1gm/10ml (Patients own medication) 1 g Oral ACHS vitamins, B complex tablet 1 tablet 1 tablet Oral QDAY vitamins, multiple tablet 1 tablet 1 tablet Oral QDAY Continuous Infusions: lactated ringers infusion PRN and Respiratory Meds:acetaminophen Q6H PRN, acetaminophen/lidocaine/antacid DS(#) QID PRN, ALPRAZolam BID PRN, hydrALAZINE Q6H PRN, loperamide QID PRN, morphine injection syringe Q2H PRN, ondansetron (ZOFRAN) IV Q4H PRN, oxyCODONE Q4H PRN, prochlorperazine Q6H PRN, tiZANidine Q6H PRN, zolpidem QHS PRN Diagnostic Tests Hematology: Lab Results Component Value Date HGB 8.5 10/15/2018 HCT 25.5 10/15/2018 PLTCT 108 10/15/2018 WBC 11.5 10/15/2018 NEUT 39 10/15/2018 ANC 4.40 10/15/2018 LYMPH 53 09/27/2018 ALC 5.00 10/15/2018 EVELYN 6 10/15/2018 AMC 0.70 10/15/2018 EOSA 11 10/15/2018 ABC 0.10 10/15/2018 BASOPHILS 1 09/27/2018 MCV 90.2 10/15/2018 MCH 30.1 10/15/2018 MCHC 33.4 10/15/2018 MPV 9.0 10/15/2018 RDW 16.7 10/15/2018 General Chemistry: Lab Results Component Value Date NA 138 10/15/2018 K 3.7 10/15/2018 CL 103 10/15/2018 CO2 28 10/15/2018 GAP 7 10/15/2018 BUN 7 10/15/2018 CR 0.71 10/15/2018 GLU 242 10/15/2018 CA 7.9 10/15/2018 ALBUMIN 2.8 10/15/2018 OBSCA 0.94 10/13/2018 MG 2.0 10/12/2018 TOTBILI 0.2 10/15/2018 PO4 3.7 09/18/2018 Coagulation: No results found for: PT, PTT, INR Follow-Up Assessment Patient location during evaluation: floor Anesthetic Complications: Anesthetic complications: The patient did not experience any anesthestic complications. Pain: Management:adequate Level of Consciousness: awake and alert Hydration:acceptable Airway Patency: patent Respiratory Status: acceptable Cardiovascular Status:acceptable Regional/Neuroaxial: SERVICE WAITER/WAITRESS * Operative Report (DICTATED ONLY) - Paul Manley MD - 10/15/2018 9:16 AM ROOM SERVICE WAITER/WAITRESS [address] [address] PATIENT NAME: CHELSEA LIN MR#/PT#: [id number] Page 1 OPERATIVE REPORT DATE OF OPERATION: 10/14/2018 SURGEON: Paul Manley MD TRADE FACILITATOR(S): Karma Boothe MD PREOPERATIVE DIAGNOSIS: 1. Closed fracture of left tibial and fibular shafts. 2. Medial malleolar ankle fracture. POSTOPERATIVE DIAGNOSIS: Same. OPERATIVE PROCEDURE: 1. Open treatment of left tibial shaft fracture with an intramedullary device. 2. Open reduction and internal fixation of left medial malleolus fracture. 3. Use and interpretation of intraoperative fluoroscopy. ANESTHESIA: General endotracheal. INDICATIONS FOR OPERATIVE PROCEDURE: Ms. Issa Castillo is a 58-year-old female, who sustained significant injury to her left lower extremity. She was initially splinted. I discussed treatment options with her. She has wished to proceed with fixation of her fractures. Risks discussed, but not limited to are complication from anesthesia, infection , neurovascular injury, malunion, nonunion, prominent implant, stiffness, posttraumatic arthrosis, need for subsequent procedures, and postoperative convalescence. She voiced her understanding and wished to proceed with the above procedure. DESCRIPTION AND FINDINGS OF OPERATIVE PROCEDURE: After obtaining informed consent, marking of correct surgical site and confirmation of correct patient, the patient was taken to the operating theater. She was transferred from the cart to the table. Anesthesia was induced via the general route. Bone foam positioners were used to position the left lower extremity. Nonsterile tourniquet was placed on the upper thigh. The left lower extremity was prepped and draped in normal sterile fashion for a case of this nature. Preoperative antibiotics were administered. A time-out was performed. I then made a longitudinal incision over the anterior aspect of the knee. I carried my dissection down via medial parapatellar approach. I established a starting point with a guidepin on the proximal tibia. I confirmed this on C-arm image in AP and lateral views. Having this in appropriate position, I advanced this into the intramedullary canal. I then opened the proximal tibia with the opening reamer. I then advanced a ball-tip guide irais down the intramedullary canal of the tibia. I reduced the fracture and passed a ball-tip across the fracture. I then placed this in a center- center position in the distal tibia. Having this in a good position, I then reamed. I inserted a 9.3 mm nail. I placed proximal and distal interlock from medial lateral using perfect circles technique. I then turned my attention to the medial malleolus. In a minimally invasive fashion, I placed a 3-hole plate that I placed in a buttress fashion. This was vertically over the medial malleolus fracture. I placed the apex screw to buttress this. I then placed a partially threaded screw across the fracture through the plate to compress across this. This provided good fixation of the medial malleolus fracture. I then placed my most distal interlock from medial to lateral using perfect circles technique. I then placed an interlock proximally through the outrigger from medial to lateral. This completed our fixation. I removed the outrigger. The wounds were copiously irrigated. I obtained final C-arm image in AP, lateral, mortise, and stress mortise views. These showed the syndesmosis to be stable. The ankle mortise was stable. The ankle was well aligned. The tibial shaft fracture was well aligned. The implants were in good position. The wounds were closed in typical layered fashion with 3-0 nylon being used for the skin. Normal sterile dressings were applied. A Cam boot was applied. Sponge and instrument counts were reported as correct. Drapes were removed. The patient was awakened from anesthesia without difficulty and transferred from the cart to the recovery room in stable condition. ESTIMATED BLOOD LOSS: Approximately 150 mL. SPECIMENS REMOVED: None. COMPLICATIONS: None. DRAINS: None. Paul Manley MD MT / MEDQ /[id number] cc: - Paul Manley MD SERVICE WAITER/WAITRESS * Case Mgmt DC Plan - Josette Plunkett - 10/14/2018 2:45 PM ROOM SERVICE WAITER/WAITRESS Case Management Progress NoteNAME:Chelsea Castillo :1960 AGE: 58 y.o. ADMISSION DATE: 10/12/2018 DAYS ADMITTED: LOS: 2 days Todays Date: 10/14/2018 Plan DCP Ongoing: ROSINA anticipates pt to DC to placement pending facility acceptance when medically stable. Interventions ? Support Support: Pt/Family Updates re:POC or DC Plan ROSINA reviewed EMR and discussed POC with team, anticipated DC Sunday. Pt DC on 10/12 from [facility]-pt admitted after fall, pt went to OR today for L tibia fracture. PT/OT recommending placement. ? Info or Referral ? Discharge Planning Discharge Planning: [facility] SW met with pt and spouse at bedside and provided recommendations. SW provided list of SNF near [facility]. Pt and spouse report they are staying with pt's sister in [place], [place]. SW explained SW and pt can explore facilities in [place] if they prefer. Pt reports she will discuss with spouse which area they want to stay [facility] [place]. SW provided contact information and explained SW will f/u tomorrow after family can discuss desired DC location. ? Medication Needs ? Financial ? Legal ? Other Disposition ? Expected Discharge Date Expected Discharge Date: 10/16/18 ? Transportation ? Next Level of Care (Acute Psych discharges only) ? Discharge Disposition Durable Medical Equipment No service has been selected for the patient. [facility] Destination No service has been selected for the patient. Home Care No service has been selected for the patient. Dialysis/Infusion No service has been selected for the patient. -Lovely Plunkett [facility] *[id number] SERVICE WAITER/WAITRESS * Procedures (Immed Post or Bedside) - Karma Boothe MD - 10/14/2018 10:12 AM ROOM SERVICE WAITER/WAITRESS Brief Operative Note Name: Chelsea Castillo is a 58 y.o. female : 1960 DATE OF OPERATION: 10/14/2018 Date: 10/14/2018 Preoperative Dx: Closed fracture of left tibia and fibula, initial encounter [S82.202A, S82.402A] Post-op Diagnosis * Closed fracture of left tibia and fibula, initial encounter [S82.202A, S82.402A] Procedure(s) (LRB): OPEN TREATMENT TIBIAL SHAFT FRACTURE IM NAIL (Left) Anesthesia Type: General Surgeon(s) and Role: * Paul Manley MD - Primary * Karma Boothe MD - Resident - Assisting Findings: distal tibial shaft fracture with extension into the medial malleolus Estimated Blood Loss: No blood loss documented. Specimen(s) Removed/Disposition: * No specimens in log * Complications: None Implants: see dictation (mona tibial nail 9 x 320 mm nail, 1/3 tubular plate) Drains: None Disposition: PACU - stable Karma Boothe MD Pager [phone] SERVICE WAITER/WAITRESS * Critical Results - Bianka Canales RN - 10/13/2018 7:36 AM ROOM SERVICE WAITER/WAITRESS Critical result or procedure called (document test and value, and read back): POC glucose 591, 547 on recheck Time MD/APPETIZER PACKER Notified: [id number] MD/APPETIZER PACKER Name: [facility] 3 Swing and E text page (tracking #[id number], [id number]) MD/APPETIZER PACKER Response/Orders Given: 0737 Return MD anjel to adjust orders for SSI SERVICE WAITER/WAITRESS * Patient Education - Bianka Canales RN - 10/13/2018 1:00 AM ROOM SERVICE WAITER/WAITRESS Education binder initiated and left at patient bedside for review. SERVICE WAITER/WAITRESS * Care Coordination-Inpatient - Philipp Candelario MD - 10/12/2018 11:54 PM ROOM SERVICE WAITER/WAITRESS Med-Private Swing 3 Team (Pager: [phone]) will take calls on this patient until 8 am on 10/13/2018. Afterwards, please call/page [facility] E team for any questions or concerns. Philipp Candelario, AOD # [phone] SERVICE WAITER/WAITRESS * ED Notes - Caitlyn Gonzalez RN - 10/12/2018 8:36 PM ROOM SERVICE WAITER/WAITRESS Report given to Bianka SANDS and transport to be added for pt. SERVICE WAITER/WAITRESS * ED Notes - Yusra Boss RN - 10/12/2018 8:09 PM ROOM SERVICE WAITER/WAITRESS 2006: [id number] READY. Please call Caitlyn @ [phone] for report. SERVICE WAITER/WAITRESS * ED Notes - Caitlyn Gonzalez RN - 10/12/2018 5:44 PM ROOM SERVICE WAITER/WAITRESS This RN looked over all charting completed by Elyssa SANDS. SERVICE WAITER/WAITRESS * ED Notes - Vonnie Patel - 10/12/2018 4:46 PM ROOM SERVICE WAITER/WAITRESS Xray at bedside SERVICE WAITER/WAITRESS * ED Provider Notes - Abby Riley MD - 10/12/2018 4:29 PM ROOM SERVICE WAITER/WAITRESS Associated Order(s): PROCEDURAL SEDATION Chelsea Castillo is a 58 y.o. female. Chief Complaint: Chief Complaint Patient presents with Fall History of Present Illness: Patient is a 58-year-old female with h/o DM 1, gastritis, and CLL who presents with left ankle pain and deformity after fall earlier today. Patient was discharged from the hospital earlier today after being hospitalized on 10/09 for diarrhea and orthostatic hypotension. She tripped on a metal grate and inverted her left ankle. There is obvious deformity, but the patient denies loss of sensation. She is able to wiggle her toes. She denies head strike, LOC , or being on blood thinners. Additionally, patient endorses pain over the lateral aspect of her right ankle. Denies chest pain, SOA, lightheadedness/ dizziness, palpitations, or other symptoms prior to her fall. 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 HENT: Negative for congestion. Eyes: Negative for visual disturbance. Respiratory: Negative for shortness of breath. Cardiovascular: Negative for chest pain. Gastrointestinal: Negative for abdominal pain, nausea and vomiting. Genitourinary: Negative for dysuria. Musculoskeletal: Positive for arthralgias and myalgias. Left ankle pain and deformity Skin: Negative for rash. Neurological: Negative for syncope. Psychiatric/Behavioral: Negative. Allergies: Sulfa (sulfonamide antibiotics) Past Medical History: [...] ESOPHAGUS SURGERY 03/2014 Esophageal ulcers and healing UPPER GASTROINTESTINAL ENDOSCOPY N/A 09/20/2018 ESOPHAGOGASTRODUODENOSCOPY performed by Charles Chau MD at ENDO/GI COLONOSCOPY N/A 09/20/2018 COLONOSCOPY performed by Charles Chau MD at ENDO/GI UPPER GASTROINTESTINAL ENDOSCOPY 09/20/2018 ESOPHAGOGASTRODUODENOSCOPY BIOPSY performed by Charles Chau MD at ENDO/GI COLONOSCOPY 09/20/2018 COLONOSCOPY BIOPSY performed by Charles Chau MD at ENDO/GI COLONOSCOPY 09/20/2018 COLONOSCOPY EXCISION LESION performed by Charles Chau MD at ENDO/GI UPPER GASTROINTESTINAL ENDOSCOPY N/A 09/26/2018 ESOPHAGOGASTRODUODENOSCOPY with extensive gastric biopsies, concern for lymphoma involving GI tract performed by Kymberly Us MD at ENDO/GI UPPER GASTROINTESTINAL ENDOSCOPY 09/26/2018 ESOPHAGOGASTRODUODENOSCOPY WITH BIOPSY - FLEXIBLE performed by Kymberly Us MD at ENDO/GI Pertinent medical/surgical history reviewed Social History: Social History Substance Use Topics Smoking status: Never Smoker Smokeless tobacco: Never Used Alcohol use No History Drug Use No Family History: Family History Problem Relation Age of Onset GI Cancer Mother Cancer-Breast Maternal Grandmother Celiac Disease Neg Hx Cancer-Colon Neg Hx Colon Polyps Neg Hx Inflammatory Bowel Disease Neg Hx Rectal Cancer Neg Hx Ulcerative Colitis Neg Hx Vitals: ED Vitals Date and Time T BP P RR SPO2P SPO2 User 10/13/18 0522 37.3 C (99.2 F) 130/58 95 16 PER MINUTE -- 96 % BR 10/13/18 0411 -- -- 91 16 PER MINUTE -- 93 % MT 10/13/18 0211 36.9 C (98.5 F) 99/45 92 15 PER MINUTE -- 97 % BR 10/12/182116 37.2 C (98.9 F) 124/65 92 14 PER MINUTE -- 93 % BR 10/12/182044 -- 121/75 91 10 PER MINUTE 90 100 % SR 10/12/182039 -- 132/71 91 23 PER MINUTE 91 100 % SR 10/12/182034 -- 107/88 93 22 PER MINUTE 92 99 % SR 10/12/182029 36.9 C (98.4 F) 122/67 90 11 PER MINUTE 90 100 % SR 10/12/182024 -- 125/63 89 11 PER MINUTE 89 100 % SR 10/12/182017 -- 137/70 90 16 PER MINUTE -- 100 % SR 10/12/182014 -- 185/80 93 17 PER MINUTE -- 100 % SR 10/12/182010 -- -- 92 10 PER MINUTE -- 100 % SR 10/12/182008 -- 185/80 93 17 PER MINUTE -- 100 % SR 10/12/182005 -- (!) 168/99 94 19 PER MINUTE -- 100 % SR 10/12/182000 -- 172/90 90 12 PER MINUTE -- 100 % SR 10/12/181955 -- 151/84 91 12 PER MINUTE -- 100 % SR 10/12/181952 -- 135/73 90 22 PER MINUTE -- 100 % SR 10/12/181939 36.6 C (97.8 F) 130/74 90 21 PER MINUTE 90 95 % SR 10/12/181919 -- 134/74 94 25 PER MINUTE 94 98 % SR 10/12/181914 -- 129/69 91 9 PER MINUTE 91 99 % SR 10/12/181909 -- 126/67 91 18 PER MINUTE 93 99 % SR 10/12/181904 -- 124/76 91 14 PER MINUTE 95 99 % SR 10/12/181901 37.1 C (98.7 F) 136/67 90 (!) 30 PER MINUTE -- 100 % SR 10/12/181899 -- 136/67 90 11 PER MINUTE 90 99 % SR 10/12/181856 -- 139/71 90 17 PER MINUTE -- 100 % SR 10/12/181854 -- 139/71 91 19 PER MINUTE 91 100 % SR 10/12/181852 -- -- 92 13 PER MINUTE -- 100 % SR 10/12/181849 -- 150/76 91 17 PER MINUTE 91 99 % SR 10/12/181848 -- 150/76 92 14 PER MINUTE -- 99 % SR 10/12/181844 -- 146/73 93 18 PER MINUTE 93 99 % SR 10/12/181843 -- 146/73 92 13 PER MINUTE -- 100 % SR 10/12/181839 -- 151/68 93 15 PER MINUTE 94 100 % SR 10/12/181836 -- -- 95 21 PER MINUTE -- 100 % SR 10/12/181834 -- 190/89 96 13 PER MINUTE -- 100 % SR 10/12/181829 -- 190/89 93 16 PER MINUTE 93 100 % SR 10/12/181827 -- -- 90 11 PER MINUTE 90 100 % SR 10/12/181824 -- 169/83 88 15 PER MINUTE 88 100 % SR 10/12/181819 -- 153/77 86 19 PER MINUTE 87 100 % SR 10/12/18 1815 36.8 C (98.2 F) 134/73 83 20 PER MINUTE 83 100 % SR 10/12/18 1810 -- 120/74 85 19 PER MINUTE 86 100 % SR 10/12/18 1805 -- 114/65 82 15 PER MINUTE 78 100 % SR 10/12/18 1758 -- 110/65 83 20 PER MINUTE -- 100 % SP 10/12/18 1647 -- 120/80 86 25 PER MINUTE -- 99 % SP 10/12/18 1552 -- -- -- -- 85 99 % SR 10/12/18 1551 -- -- -- -- 86 98 % SR 10/12/18 1549 -- -- -- -- 86 99 % SP 10/12/18 1506 36.6 C (97.9 F) 136/90 92 22 PER MINUTE -- 100 % SP Physical Exam: Physical Exam Constitutional: She is oriented to person, place, and time. No distress. HENT: Head: Normocephalic and atraumatic. Neck: No tracheal deviation present. Cardiovascular: Normal rate and regular rhythm. Pulmonary/Chest: Effort normal and breath sounds normal. No respiratory distress. Abdominal: Soft. She exhibits no distension. Musculoskeletal: She exhibits edema, tenderness and deformity. Obvious deformity of the left ankle with inversion of the foot. Patient is able to wiggle her toes and has good sensation light touch. There are 2+ DP and PT pulses. There is exquisite tenderness to palpation over the medial and lateral aspect of the ankle. Patient also endorses pain over the right lateral ankle without obvious deformity. The RLE is neurovascularly intact. Neurological: She is alert and oriented to person, place, and time. Skin: Skin is warm and dry. She is not diaphoretic. Psychiatric: She has a normal mood and affect. Nursing note and vitals reviewed. Laboratory Results: Results for orders placed or performed during the hospital encounter of (from the past 24 hour(s)) CBC AND DIFF Result Value Ref Range White Blood Cells 17.1 (H) 4.5 - 11.0 K/UL RBC 4.30 4.0 - 5.0 M/UL Hemoglobin 12.4 12.0 - 15.0 GM/DL Hematocrit 38.6 36 - 45 % MCV 89.8 80 - 100 FL MCH 28.9 26 - 34 PG MCHC 32.2 32.0 - 36.0 G/DL RDW 17.5 (H) 11 - 15 % Platelet Count 182 150 - 400 K/UL MPV 8.6 7 - 11 FL Neutrophils 82 (H) 41 - 77 % Lymphocytes 10 (L) 24 - 44 % Monocytes 7 4 - 12 % Eosinophils 1 0 - 5 % Basophils 0 0 - 2 % Absolute Neutrophil Count 14.00 (H) 1.8 - 7.0 K/UL Absolute Lymph Count 1.80 1.0 - 4.8 K/UL Absolute Monocyte Count 1.20 (H) 0 - 0.80 K/UL Absolute Eosinophil Count 0.10 0 - 0.45 K/UL Absolute Basophil Count 0.10 0 - 0.20 K/UL COMPREHENSIVE METABOLIC PANEL Result Value Ref Range Sodium 137 137 - 147 MMOL/L Potassium 3.7 3.5 - 5.1 MMOL/L Chloride 105 98 - 110 MMOL/L Glucose 151 (H) 70 - 100 MG/DL Blood Urea Nitrogen 11 7 - 25 MG/DL Creatinine 0.81 0.4 - 1.00 MG/DL Calcium 7.9 (L) 8.5 - 10.6 MG/DL Total Protein 5.5 (L) 6.0 - 8.0 G/DL Total Bilirubin 0.3 0.3 - 1.2 MG/DL Albumin 3.3 (L) 3.5 - 5.0 G/DL Alk Phosphatase 79 25 - 110 U/L AST (SGOT) 22 7 - 40 U/L CO2 25 21 - 30 MMOL/L ALT (SGPT) 24 7 - 56 U/L Anion Gap 7 3 - 12 eGFR Non >60 >60 mL/min eGFR >60 >60 mL/min POC GLUCOSE Result Value Ref Range Glucose, POC 259 (H) 70 - 100 MG/DL URINALYSIS DIPSTICK REFLEX TO CULTURE Result Value Ref Range Color,UA YELLOW Turbidity,UA CLEAR CLEAR-CLEAR Specific [place]-Urine 1.009 1.003 - 1.035 pH,UA 8.0 5.0 - 8.0 Protein,UA NEG NEG-NEG Glucose,UA 1+ (A) NEG-NEG Ketones,UA NEG NEG-NEG Bilirubin,UA NEG NEG-NEG Blood,UA NEG NEG-NEG Urobilinogen,UA NORMAL NORM-NORMAL Nitrite,UA NEG NEG-NEG Leukocytes,UA NEG NEG-NEG Urine Ascorbic Acid, UA NEG NEG-NEG URINALYSIS MICROSCOPIC REFLEX TO CULTURE Result Value Ref Range WBCs,UA 0-2 0 - 2 /HPF RBCs,UA 0-2 0 - 3 /HPF Comment,UA Urine submitted for reflex culture if criteria are met:WBC>10, positive nitrite and/or >=1+ leukocyte esterase. If quantity is not sufficient, an addendum will follow. Bacteria,UA FEW (A) NEG-NEG Squamous Epithelial Cells 2-5 0 - 5 CBC AND DIFF Result Value Ref Range White Blood Cells 9.8 4.5 - 11.0 K/UL RBC 2.98 (L) 4.0 - 5.0 M/UL Hemoglobin 8.9 (L) 12.0 - 15.0 GM/DL Hematocrit 26.6 (L) 36 - 45 % MCV 89.3 80 - 100 FL MCH 29.9 26 - 34 PG MCHC 33.5 32.0 - 36.0 G/DL RDW 18.4 (H) 11 - 15 % Platelet Count 80 (L) 150 - 400 K/UL MPV 8.2 7 - 11 FL Neutrophils 48 41 - 77 % Lymphocytes 42 24 - 44 % Monocytes 7 4 - 12 % Eosinophils 3 0 - 5 % Basophils 0 0 - 2 % Absolute Neutrophil Count 4.80 1.8 - 7.0 K/UL Absolute Lymph Count 4.10 1.0 - 4.8 K/UL Absolute Monocyte Count 0.60 0 - 0.80 K/UL Absolute Eosinophil Count 0.30 0 - 0.45 K/UL Absolute Basophil Count 0.00 0 - 0.20 K/UL COMPREHENSIVE METABOLIC PANEL Result Value Ref Range Sodium 135 (L) 137 - 147 MMOL/L Potassium 3.8 3.5 - 5.1 MMOL/L Chloride 107 98 - 110 MMOL/L Glucose 349 (H) 70 - 100 MG/DL Blood Urea Nitrogen 9 7 - 25 MG/DL Creatinine 0.72 0.4 - 1.00 MG/DL Calcium 6.9 (L) 8.5 - 10.6 MG/DL Total Protein 4.0 (L) 6.0 - 8.0 G/DL Total Bilirubin 0.3 0.3 - 1.2 MG/DL Albumin 2.5 (L) 3.5 - 5.0 G/DL Alk Phosphatase 58 25 - 110 U/L AST (SGOT) 23 7 - 40 U/L CO2 22 21 - 30 MMOL/L ALT (SGPT) 17 7 - 56 U/L Anion Gap 6 3 - 12 eGFR Non >60 >60 mL/min eGFR >60 >60 mL/min IONIZED CALCIUM Result Value Ref Range Ionized Calcium 0.94 (L) 1.0 - 1.3 MMOL/L POC GLUCOSE Result Value Ref Range Glucose, POC 591 (HH) 70 - 100 MG/DL POC GLUCOSE Result Value Ref Range Glucose, POC 547 (HH) 70 - 100 MG/DL POC Glucose (Download): (!) 547 Radiology Interpretation: ANKLE MIN 3 VIEWS BILATERAL Final Result 1. Comminuted and displaced fracture of the [...] Paul Trejo M.D. on 10/13/2018 7:01 AM. TIBIA & FIBULA 2 VIEW BILAT Final Result 1. Comminuted and displaced fracture of the [...] Paul Trejo M.D. on 10/13/2018 7:11 AM. FOOT 2 VIEW BILATERAL Final Result 1. Acute nondisplaced fracture of the left [...] opinions expressed in this report Finalized by Knigs Flores M.D. on 10/13/2018 9:15 AM. Dictated by Paul Trejo M.D. on 10/13/2018 7:16 AM. KNEE 1 OR 2 VIEWS BILATERAL Final Result 1. No acute osseous abnormality involving the bilateral knees. Approved by Paul Trejo M.D. on 10/13/2018 8:36 AM By my electronic signature, I attest that I have personally reviewed the images for this examination and formulated the interpretations and opinions expressed in this report Finalized by Kings Flores M.D. on 10/13/2018 9:15 AM. Dictated by Paul Trejo M.D. on 10/13/2018 7:14 AM. TIBIA & FIBULA 2 VIEWS LEFT Final Result Findings/impression: Splinting material again noted about the tibia/fibula and ankle which slightly limits evaluation. Redemonstration of comminuted distal tibial fracture. Improved alignment at the fracture site. Improved alignment at the distal fibular fracture which is overall poorly visualized due to overlying casting material. Approved by Paul Trejo M.D. on 10/13/2018 8:46 AM By my electronic signature, I attest that I have personally reviewed the images for this examination and formulated the interpretations and opinions expressed in this report Finalized by Kings Flores M.D. on 10/13/2018 9:15 AM. Dictated by Paul Trejo M.D. on 10/13/2018 7:[address] LOWER EXTREM WO CONT LEFT Final Result 1. Comminuted fracture of the distal tibial [...] Rory Mansfield D.O. on 10/12/2018 9:50 PM. TIBIA & FIBULA 2 VIEWS LEFT (Results Pending) CHEST SINGLE VIEW (Results Pending) EKG: N/a ED Course: 58-year-old female presenting with left ankle injury. Exam showed obvious deformity of the left ankle with inversion. The fracture was closed and the LLE was neurovascularly intact. Patient was given fentanyl and ketamine for pain. Plain film showed a comminuted fracture of the distal tibial diaphysis and medial malleolus. Orthopedics was consulted and a splint was placed under conscious sedation. With a recommended follow-up CT of the extremity. We will likely go to the OR tomorrow. Discussed case with medicine who agreed the need for admission for pain control with surgical repair in the morning. MDM Reviewed: previous chart, nursing note and vitals Reviewed previous: labs Interpretation: labs and x-ray Consults: admitting MD Facility Administered Meds: Facility-Administered Medications as of 10/13/2018 Medication Last Dose acetaminophen (TYLENOL) tablet 650 mg 650 mg at 10/13/18 0411 acetaminophen/lidocaine/antacid DS(#) (GI COCKTAIL) 1:1:3 suspension 30 mL ALPRAZolam (XANAX) tablet 1 mg 1 mg at 10/12/18 221 atorvastatin (LIPITOR) tablet 40 mg 40 mg at 10/13/18 0833 carBAMazepine (TEGRETOL) tablet 400 mg 400 mg at 10/13/18 0835 cetirizine (ZYRTEC) tablet 10 mg 10 mg at 10/13/18 0835 cholecalciferol (VITAMIN D-3) tablet 5,000 Units 5,000 Units at 10/13/18 0833 dicyclomine (BENTYL) capsule 10 mg 10 mg at 10/13/[address] (CYMBALTA) capsule 90 mg 90 mg at 10/13/18 0835 enoxaparin (LOVENOX) syringe 40 mg 40 mg at 10/12/18 2212 ferrous gluconate tablet 324 mg 324 mg at 10/13/18 0834 fludrocortisone (FLORINEF) tablet 0.3 mg 0.3 mg at 10/13/18 0835 fluticasone (FLONASE) nasal spray 1 spray [COMPLETED] heparin lock flush PF syringe 500 Units 500 Units at 10/12/18 1042 hydrALAZINE (APRESOLINE) injection 10 mg hydroxychloroquine (PLAQUENIL) tablet 200 mg 200 mg at 10/13/18 0834 insulin aspart U-100 (NOVOLOG FLEXPEN) injection PEN 0-14 Units 14 Units at 10/13/18 0830 insulin aspart U-100 (NOVOLOG FLEXPEN) injection PEN 5 Units insulin glargine (LANTUS SOLOSTAR, BASAGLAR) injection PEN 12 Units [COMPLETED] insulin NPH (HUMULIN N KwikPen) injection PEN 10 Units 10 Units at 10/13/18 0835 [COMPLETED] iron sucrose (VENOFER) 300 mg in sodium chloride 0.9% (NS) IVPB 300 mg at 10/12/18 0850 [COMPLETED] ketamine (KETALAR) injection 125 mg 125 mg at 10/12/18 1821 [COMPLETED] ketamine (KETALAR) injection 18.8 mg 18.8 mg at 10/12/18 1700 [COMPLETED] ketamine (KETALAR) injection 20 mg 20 mg at 10/12/182014 [COMPLETED] lactated ringers infusion 2,000 mL at 10/12/18 1703 levothyroxine (SYNTHROID) tablet 175 mcg 175 mcg at 10/13/18 0604 loperamide (IMODIUM A-D) capsule 2 mg [COMPLETED] melatonin tablet 3 mg 3 mg at 10/12/18 0321 montelukast (SINGULAIR) tablet 10 mg 10 mg at 10/12/18 2211 morphine injection syringe 2-4 mg 2 mg at 10/13/18 0906 ondansetron (ZOFRAN) injection 4 mg oxyCODONE (ROXICODONE, OXY-IR) tablet 5-[address] (PROTONIX) tablet 40 mg 40 mg at 10/13/18 0835 pentosan polysulfate sodium (ELMIRON) capsule 100 mg 100 mg at 10/13/18 0604 potassium chloride SR (K-DUR) tablet 10 mEq 10 mEq at 10/13/18 0834 pregabalin (LYRICA) capsule 150 mg 150 mg at 10/13/18 0834 pyridoxine (VITAMIN B-6) tablet 50 mg 50 mg at 10/13/18 0834 [] rizatriptan (MAXALT) tablet 10 mg [COMPLETED] sodium chloride 0.9 % infusion 1,000 mL at 10/12/18 2210 SUCRALFATE 1gm/10ml (Patients own medication) 1 g at 10/13/18 0605 tiZANidine (ZANAFLEX) tablet 4 mg 4 mg at 10/13/18 0530 vitamins, B complex tablet 1 tablet 1 tablet at 10/13/18 0834 vitamins, multiple tablet 1 tablet 1 tablet at 10/13/18 0834 zolpidem (AMBIEN) tablet 5 mg Clinical Impression: Final diagnoses: Closed fracture of left tibia and fibula, initial encounter (Primary) Disposition/Follow up Admit No follow-up provider specified. Medications: Current Discharge Medication List Procedure Notes: Procedural Sedation Date/Time: 10/12/2018 9:35 AM Performed by: ABBY RILEY Authorized by: ABBY RILEY Consent: Verbal consent obtained. Written consent [...] to verify the correct patient, procedure, equipment, customer support specialist and site/side marked as required. [...] see nursing log for details. The total [id number] time was 35 minutes. Attestation / Supervision: Jeet Tran MD Attestation / Supervision Note concerning Chelsea Castillo: I personally performed the ortega portions of the E/M visit, discussed case with resident and concur with resident documentation of history, physical exam, assessment, and treatment plan unless otherwise noted. Abby Riley MD SERVICE WAITER/WAITRESS * ED Notes - Caitlyn Gonzalez RN - 10/12/2018 3:32 PM ROOM SERVICE WAITER/WAITRESS Pt came in with c/o fall today. Pt states she was getting out of car and fell over a wire. Pt states she did not hit her head nor lose consciousness and is not on blood thinners. Pt has deformity to left ankle and is having 10/10 pain and tearful. Pt in obvious distress upon arrival d/t pain with turning and any mobilization to ankle. Pt states she just left [facility] today and was recently dx with leukemia. Pt cap refill <3 secs and pedal pulse palpated easily. Por accessed upon arrival and pt hooked up to monitor with call light in reach. Belongings: [place] 2 socks Pajama pants SERVICE WAITER/WAITRESS * ED Notes - Yusra Boss RN - 10/12/2018 3:06 PM ROOM SERVICE WAITER/WAITRESS Bed: 34 Expected date: Expected time: Means of arrival: Comments: Ankle deform; 200 mcg fent SERVICE WAITER/WAITRESS in this encounter Plan of Treatment Care Team Description Date Type Specialty Gunnar Kirk MD [address] [place] [address] Delayed gastric emptying 02/03/2019 Hospital Encounter Gunnar Kirk MD [address] [place] [address] [phone] ESOPHAGOGASTRODUODENOSCOPY WITH SPECIMEN COLLECTION BY BRUSHING/ WASHING 02/03/2019 Surgery as of this encounter Procedures Comments Procedure Name Priority Date/Time Associated Diagnosis TELEMETRY STRIPS-SCAN 10/20/2018 2:54 PM ROOM SERVICE WAITER/WAITRESS POC GLUCOSE 10/18/2018 12:12 PM ROOM SERVICE WAITER/WAITRESS POC GLUCOSE 10/18/2018 9:12 AM ROOM SERVICE WAITER/WAITRESS CBC Routine 10/18/2018 4:00 AM ROOM SERVICE WAITER/WAITRESS BASIC METABOLIC PANEL Routine 10/18/2018 4:00 AM ROOM SERVICE WAITER/WAITRESS POC GLUCOSE 10/17/2018 9:05 PM ROOM SERVICE WAITER/WAITRESS POC GLUCOSE 10/17/2018 5:42 PM ROOM SERVICE WAITER/WAITRESS POC GLUCOSE 10/17/2018 5:04 PM ROOM SERVICE WAITER/WAITRESS POC GLUCOSE 10/17/2018 4:25 PM ROOM SERVICE WAITER/WAITRESS POC GLUCOSE 10/17/2018 11:30 AM ROOM SERVICE WAITER/WAITRESS POC GLUCOSE 10/17/2018 9:25 AM ROOM SERVICE WAITER/WAITRESS CBC AND DIFF Routine 10/17/2018 3:50 AM ROOM SERVICE WAITER/WAITRESS COMPREHENSIVE METABOLIC Routine 10/17/2018 PANEL 3:50 AM ROOM SERVICE WAITER/WAITRESS POC GLUCOSE 10/16/2018 11:00 PM ROOM SERVICE WAITER/WAITRESS POC GLUCOSE 10/16/2018 9:49 PM ROOM SERVICE WAITER/WAITRESS POC GLUCOSE 10/16/2018 6:02 PM ROOM SERVICE WAITER/WAITRESS POC GLUCOSE 10/16/2018 4:24 PM ROOM SERVICE WAITER/WAITRESS POC GLUCOSE 10/16/2018 2:26 PM ROOM SERVICE WAITER/WAITRESS POC GLUCOSE 10/16/2018 8:37 AM ROOM SERVICE WAITER/WAITRESS CBC AND DIFF Routine 10/16/2018 4:28 AM ROOM SERVICE WAITER/WAITRESS COMPREHENSIVE METABOLIC Routine 10/16/2018 PANEL 4:28 AM ROOM SERVICE WAITER/WAITRESS POC GLUCOSE 10/16/2018 4:21 AM ROOM SERVICE WAITER/WAITRESS POC GLUCOSE 10/15/2018 8:25 PM ROOM SERVICE WAITER/WAITRESS POC GLUCOSE 10/15/2018 5:34 PM ROOM SERVICE WAITER/WAITRESS ECG-SCAN 10/15/2018 1:20 PM ROOM SERVICE WAITER/WAITRESS POC GLUCOSE 10/15/2018 12:11 PM ROOM SERVICE WAITER/WAITRESS POC GLUCOSE 10/15/2018 8:35 AM ROOM SERVICE WAITER/WAITRESS CBC AND DIFF Routine 10/15/2018 4:02 AM ROOM SERVICE WAITER/WAITRESS COMPREHENSIVE METABOLIC Routine 10/15/2018 PANEL 4:02 AM ROOM SERVICE WAITER/WAITRESS POC GLUCOSE 10/14/2018 8:22 PM ROOM SERVICE WAITER/WAITRESS POC GLUCOSE 10/14/2018 5:01 PM ROOM SERVICE WAITER/WAITRESS POC GLUCOSE 10/14/2018 1:28 PM ROOM SERVICE WAITER/WAITRESS POC GLUCOSE 10/14/2018 10:16 AM ROOM SERVICE WAITER/WAITRESS FLUORO MOBILE IN OR Routine 10/14/2018 9:55 AM ROOM SERVICE WAITER/WAITRESS POC GLUCOSE 10/14/2018 9:14 AM ROOM SERVICE WAITER/WAITRESS OPEN TREATMENT TIBIAL 10/14/2018 Closed fracture of left SHAFT FRACTURE WITH 7:30 AM ROOM SERVICE WAITER/WAITRESS tibia and fibula, initial PLATES/ SCREWS WITH/ encounter WITHOUT CERCLAGE POC GLUCOSE 10/14/2018 7:03 AM ROOM SERVICE WAITER/WAITRESS CBC AND DIFF Routine 10/14/2018 4:20 AM ROOM SERVICE WAITER/WAITRESS COMPREHENSIVE METABOLIC Routine 10/14/2018 PANEL 4:20 AM ROOM SERVICE WAITER/WAITRESS POC GLUCOSE 10/13/2018 8:07 PM ROOM SERVICE WAITER/WAITRESS POC GLUCOSE 10/13/2018 5:35 PM ROOM SERVICE WAITER/WAITRESS POC GLUCOSE 10/13/2018 5:05 PM ROOM SERVICE WAITER/WAITRESS POC GLUCOSE 10/13/2018 10:48 AM ROOM SERVICE WAITER/WAITRESS POC GLUCOSE 10/13/2018 7:34 AM ROOM SERVICE WAITER/WAITRESS POC GLUCOSE 10/13/2018 7:30 AM ROOM SERVICE WAITER/WAITRESS CBC AND DIFF Routine 10/13/2018 2:15 AM ROOM SERVICE WAITER/WAITRESS IONIZED CALCIUM Routine 10/13/2018 2:15 AM ROOM SERVICE WAITER/WAITRESS COMPREHENSIVE METABOLIC Routine 10/13/2018 PANEL 2:15 AM ROOM SERVICE WAITER/WAITRESS CHEST SINGLE VIEW Routine 10/12/2018 11:13 PM ROOM SERVICE WAITER/WAITRESS UA REFLEX CULTURE LABEL STAT 10/12/2018 10:40 PM ROOM SERVICE WAITER/WAITRESS URINALYSIS MICROSCOPIC STAT 10/12/2018 REFLEX TO CULTURE 10:40 PM ROOM SERVICE WAITER/WAITRESS URINALYSIS DIPSTICK STAT 10/12/2018 REFLEX TO CULTURE 10:40 PM ROOM SERVICE WAITER/WAITRESS CT LOWER EXTREM WO CONT JOSH 10/12/2018 LEFT 9:54 PM ROOM SERVICE WAITER/WAITRESS POC GLUCOSE 10/12/2018 9:07 PM ROOM SERVICE WAITER/WAITRESS TIBIA & FIBULA 2 VIEWS STAT 10/12/2018 LEFT 8:30 PM ROOM SERVICE WAITER/WAITRESS TIBIA & FIBULA 2 VIEWS STAT 10/12/2018 LEFT 6:44 PM ROOM SERVICE WAITER/WAITRESS ECG-SCAN 10/12/2018 5:30 PM ROOM SERVICE WAITER/WAITRESS TIBIA & FIBULA 2 VIEW STAT 10/12/2018 BILAT 5:30 PM ROOM SERVICE WAITER/WAITRESS KNEE 1 OR 2 VIEWS STAT 10/12/2018 BILATERAL 5:30 PM ROOM SERVICE WAITER/WAITRESS FOOT 2 VIEW BILATERAL STAT 10/12/2018 5:30 PM ROOM SERVICE WAITER/WAITRESS ANKLE MIN 3 VIEWS STAT 10/12/2018 BILATERAL 5:30 PM ROOM SERVICE WAITER/WAITRESS PROCEDURAL SEDATION Routine 10/12/2018 4:29 PM ROOM SERVICE WAITER/WAITRESS ECG 12-LEAD STAT 10/12/2018 4:28 PM ROOM SERVICE WAITER/WAITRESS CBC AND DIFF STAT 10/12/2018 3:30 PM ROOM SERVICE WAITER/WAITRESS COMPREHENSIVE METABOLIC STAT 10/12/2018 PANEL 3:30 PM ROOM SERVICE WAITER/WAITRESS in this encounter Results * TELEMETRY STRIPS-SCAN (10/20/2018 2:54 PM ROOM SERVICE WAITER/WAITRESS) Narrative Performed At Ordered by an unspecified provider. * POC GLUCOSE (10/18/2018 12:12 PM ROOM SERVICE WAITER/WAITRESS) Glucose, POC 170 (H) 70 - 100 MG/DL [facility] Performing Organization Address [facility] Phone Number [facility] LAB [address] [place] [address] * POC GLUCOSE (10/18/2018 9:12 AM ROOM SERVICE WAITER/WAITRESS) Glucose, POC 118 (H) 70 - 100 MG/DL [facility] Performing Organization Address [facility] [address]/[facility] Phone Number [facility] [address] [place] [address] * CBC (10/18/2018 4:00 AM ROOM SERVICE WAITER/WAITRESS) White Blood Cells 8.5 4.5 - 11.0 [facility] RBC 3.08 (L) 4.0 - 5.0 [facility] Hemoglobin 9.2 (L) 12.0 - 15.0 GM/DL [facility] Hematocrit 28.6 (L) 36 - 45 % [facility] MCV 92.9 80 - 100 FL [facility] MCH 29.9 26 - 34 [facility] MCHC 32.2 32.0 - 36.0 G/DL MAIN LAB RDW 18.6 (H) 11 - 15 % [facility] Platelet Count 262 150 - 400 [facility] MPV 8.7 7 - 11 FL [facility] Specimen Blood Performing Organization Address [facility] [address]/[facility] Phone Number MAIN LAB [address] [place] [address] * BASIC METABOLIC PANEL (10/18/2018 4:00 AM ROOM SERVICE WAITER/WAITRESS) Sodium 139 137 - 147 MMOL/L [facility] Potassium 3.9 3.5 - 5.1 MMOL/L MAIN LAB Chloride 102 98 - 110 MMOL/L [facility] CO2 30 21 - 30 MMOL/L [facility] Anion Gap 7 3 - 12 MAIN LAB Glucose 160 (H) 70 - 100 MG/DL [facility] Blood Urea Nitrogen 9 7 - 25 MG/DL [facility]IN [facility] Creatinine 0.83 0.4 - 1.00 MG/DL MAIN LAB Calcium [...] Performing Organization Address City/[facility] [address]/Zipcode Phone Number MAIN LAB [address] [place] [address] * POC GLUCOSE (10/17/2018 9:05 PM ROOM SERVICE WAITER/WAITRESS) Glucose, POC 196 (H) 70 - 100 MG/DL [facility] Performing Organization Address [facility] [address] Phone Number [facility] [address] [place] [address] * POC GLUCOSE (10/17/2018 5:42 PM ROOM SERVICE WAITER/WAITRESS) Glucose, POC 145 (H) 70 - 100 MG/DL MAIN LAB Performing Organization Address [facility] [address]/[facility] Phone Number [facility] [address] [place] [address] * POC GLUCOSE (10/17/2018 5:04 PM ROOM SERVICE WAITER/WAITRESS) Glucose, POC 131 (H) 70 - 100 MG/DL [facility] Performing Organization Address [facility] [address] Phone Number [facility] [address] [place] [address] * POC GLUCOSE (10/17/2018 4:25 PM ROOM SERVICE WAITER/WAITRESS) Glucose, POC 61 (L) 70 - 100 MG/DL [facility] Performing Organization Address [facility] [address] Phone Number [facility] [address] [place] [address] * POC GLUCOSE (10/17/2018 11:30 AM ROOM SERVICE WAITER/WAITRESS) Glucose, POC 200 (H) 70 - 100 MG/DL [facility] Performing Organization Address [facility] [address]/Zipcode Phone Number [facility] [address] [place] [address] * POC GLUCOSE (10/17/2018 9:25 AM ROOM SERVICE WAITER/WAITRESS) Glucose, POC 166 (H) 70 - 100 MG/DL [facility] Performing Organization Address [facility] [address] Phone Number [facility] [address] [place] [address] * COMPREHENSIVE METABOLIC PANEL (10/17/2018 3:50 AM ROOM SERVICE WAITER/WAITRESS) Sodium 135 (L) 137 - 147 MMOL/L [facility] Potassium 4.2 3.5 - 5.1 MMOL/L [facility] Chloride 101 98 - 110 MMOL/L [facility] Glucose 247 (H) 70 - 100 MG/DL [facility] Blood Urea Nitrogen 8 7 - 25 MG/DL [facility] Creatinine 0.74 0.4 - 1.00 MG/DL [facility] Calcium 7.8 (L) 8.5 - 10.6 MG/DL [facility] Total Protein 4.7 (L) 6.0 - 8.0 G/DL [facility] Total Bilirubin 0.2 (L) 0.3 - 1.2 MG/DL [facility] Albumin 2.7 (L) 3.5 - 5.0 G/DL [facility] Alk Phosphatase 109 25 - 110 U/L [facility] AST (SGOT) 27 7 - 40 U/L [facility] CO2 31 (H) 21 - 30 MMOL/L [facility] ALT (SGPT) 22 7 - 56 U/L [facility] [...] Performing Organization Address City/[facility] [address]/Zipcode Phone Number [facility] [address] [place] [address] * CBC AND DIFF (10/17/2018 3:50 AM ROOM SERVICE WAITER/WAITRESS) White Blood Cells 9.1 4.5 - 11.0 K/UL [facility] RBC 2.85 (L) 4.0 - 5.0 M/UL [facility] Hemoglobin 8.5 (L) 12.0 - 15.0 GM/DL [facility] Hematocrit 26.4 (L) 36 - 45 % [facility] MCV 92.6 80 - 100 FL [facility] MCH 29.9 26 - 34 PG [facility] MCHC 32.3 32.0 - 36.0 G/DL [facility] RDW 17.8 (H) 11 - 15 % [facility] Platelet Count 182 150 - 400 K/UL [facility] MPV 8.9 7 - 11 FL [facility] Neutrophils 32 (L) 41 - 77 % [facility] Lymphocytes 50 (H) 24 - 44 % [facility] Monocytes 7 4 - 12 % [facility] Eosinophils 11 (H) 0 - 5 % [facility] Basophils 0 0 - 2 % [facility] Absolute Neutrophil Count 3.00 1.8 - 7.0 K/UL [facility] Absolute Lymph Count 4.50 1.0 - 4.8 K/UL [facility] Absolute Monocyte Count 0.60 0 - 0.80 [facility] Absolute Eosinophil Count 1.00 (H) 0 - 0.45 K/UL [facility] Absolute Basophil Count 0.00 0 - 0.20 K/UL [facility] Specimen Blood Performing Organization Address City/[facility] [address]/[facility] Phone Number [facility] LAB [address] [place] [address] * POC GLUCOSE (10/16/2018 11:00 PM ROOM SERVICE WAITER/WAITRESS) Glucose, POC 149 (H) 70 - 100 MG/DL [facility] Performing Organization Address [facility] [address]/[facility] Phone Number [facility] [address] [place] [address] * POC GLUCOSE (10/16/2018 9:49 PM ROOM SERVICE WAITER/WAITRESS) Glucose, POC 109 (H) 70 - 100 MG/DL [facility] Performing Organization Address [facility] [address]/[facility] Phone Number [facility] [address] [place] [address] * POC GLUCOSE (10/16/2018 6:02 PM ROOM SERVICE WAITER/WAITRESS) Glucose, POC 176 (H) 70 - 100 MG/DL [facility] Performing Organization Address City/[facility] [address]/[facility] Phone Number [facility] [address] [place] [address] * POC GLUCOSE (10/16/2018 4:24 PM ROOM SERVICE WAITER/WAITRESS) Glucose, POC 288 (H) 70 - 100 MG/DL [facility] Performing Organization Address [facility] [address]/[facility] Phone Number [facility] [address] [place] [address] * POC GLUCOSE (10/16/2018 2:26 PM ROOM SERVICE WAITER/WAITRESS) Glucose, POC 306 (H) 70 - 100 MG/DL [facility] Performing Organization Address [facility] [address] Phone Number [facility] [address] [place] [address] * POC GLUCOSE (10/16/2018 8:37 AM ROOM SERVICE WAITER/WAITRESS) Glucose, POC 181 (H) 70 - 100 MG/DL [facility] Performing Organization Address [facility] [address] [facility] Phone Number [facility] [address] [place] [address] * COMPREHENSIVE METABOLIC PANEL (10/16/2018 4:28 AM ROOM SERVICE WAITER/WAITRESS) Sodium 137 137 - 147 MMOL/L [facility] Potassium 3.3 (L) 3.5 - 5.1 MMOL/L [facility] Chloride 100 98 - 110 MMOL/L [facility] Glucose 167 (H) 70 - 100 MG/DL [facility] Blood Urea Nitrogen 6 (L) 7 - 25 MG/DL [facility] Creatinine 0.71 0.4 - 1.00 MG/DL [facility] Calcium 8.0 (L) 8.5 - 10.6 MG/DL [facility] Total Protein 4.9 (L) 6.0 - 8.0 G/DL [facility] Total Bilirubin 0.3 0.3 - 1.2 MG/DL [facility] Albumin 2.9 (L) 3.5 - 5.0 G/DL [facility] Alk Phosphatase 97 25 - 110 U/L [facility] AST (SGOT) 32 7 - 40 U/L [facility] CO2 29 21 - 30 MMOL/L [facility] ALT (SGPT) 24 7 - 56 U/L [facility] [...] Performing Organization Address City/[facility] [address]/[facility] Phone Number [facility] [address] [place] [address] * CBC AND DIFF (10/16/2018 4:28 AM ROOM SERVICE WAITER/WAITRESS) White Blood Cells 10.1 4.5 - 11.0 K/UL [facility] RBC 3.09 (L) 4.0 - 5.0 M/UL [facility] Hemoglobin 9.2 (L) 12.0 - 15.0 GM/DL [facility] Hematocrit 27.8 (L) 36 - 45 % [facility] MCV 90.0 80 - 100 FL [facility] MCH 29.8 26 - 34 PG [facility] MCHC 33.1 32.0 - 36.0 G/DL [facility] RDW 16.9 (H) 11 - 15 % [facility] Platelet Count 158 150 - 400 K/UL [facility] MPV 9.5 7 - 11 FL [facility] Neutrophils 49 41 - 77 % [facility] Lymphocytes 31 24 - 44 % [facility] Monocytes 7 4 - 12 % [facility] Eosinophils 12 (H) 0 - 5 % [facility] Basophils 1 0 - 2 % [facility] Absolute Neutrophil Count 4.90 1.8 - 7.0 K/UL [facility] Absolute Lymph Count 3.10 1.0 - 4.8 K/UL [facility] Absolute Monocyte Count 0.70 0 - 0.80 K/UL [facility] Absolute Eosinophil Count 1.20 (H) 0 - 0.45 K/UL [facility] Absolute Basophil Count 0.10 0 - 0.20 K/UL [facility] Specimen Blood Performing Organization Address City/[facility] [address]/[facility] Phone Number [facility] [address] [place] [address] * POC GLUCOSE (10/16/2018 4:21 AM ROOM SERVICE WAITER/WAITRESS) Glucose, POC 161 (H) 70 - 100 MG/DL [facility] Performing Organization Address City/[facility] [address]/[facility] Phone Number [facility] [address] [place] [address] * POC GLUCOSE (10/15/2018 8:25 PM ROOM SERVICE WAITER/WAITRESS) Glucose, POC 137 (H) 70 - 100 MG/DL [facility] Performing Organization Address [facility] [address]/[facility] Phone Number [facility] [address] [place] [address] * POC GLUCOSE (10/15/2018 5:34 PM ROOM SERVICE WAITER/WAITRESS) Glucose, POC 249 (H) 70 - 100 MG/DL [facility] Performing Organization Address [facility] [address]/[facility] Phone Number [facility] [address] [place] [address] * ECG-SCAN (10/15/2018 1:20 PM ROOM SERVICE WAITER/WAITRESS) Narrative Performed At Ordered by an unspecified provider. * POC GLUCOSE (10/15/2018 12:11 PM ROOM SERVICE WAITER/WAITRESS) Glucose, POC 215 (H) 70 - 100 MG/DL [facility] Performing Organization Address [facility] [address]/[facility] Phone Number [facility] [address] [place] [address] * POC GLUCOSE (10/15/2018 8:35 AM ROOM SERVICE WAITER/WAITRESS) Glucose, POC 308 (H) 70 - 100 MG/DL [facility] Performing Organization Address [facility] [address]/[facility] Phone Number [facility] [address] [place] [address] * COMPREHENSIVE METABOLIC PANEL (10/15/2018 4:02 AM ROOM SERVICE WAITER/WAITRESS) Sodium 138 137 - 147 MMOL/L [facility] Potassium 3.7 3.5 - 5.1 MMOL/L [facility] Chloride 103 98 - 110 MMOL/L [facility] Glucose 242 (H) 70 - 100 MG/DL [facility] Blood Urea Nitrogen 7 7 - 25 MG/DL [facility] Creatinine 0.71 0.4 - 1.00 MG/DL [facility] Calcium 7.9 (L) 8.5 - 10.6 MG/DL [facility] Total Protein 4.8 (L) 6.0 - 8.0 G/DL [facility] Total Bilirubin 0.2 (L) 0.3 - 1.2 MG/DL [facility] Albumin 2.8 (L) 3.5 - 5.0 G/DL [facility] Alk Phosphatase 88 25 - 110 U/L [facility] AST (SGOT) 34 7 - 40 U/L [facility] CO2 28 21 - 30 MMOL/L [facility] ALT (SGPT) 23 7 - 56 U/L [facility] Anion Gap 7 3 - 12 [facility] eGFR [...] Organization Address City/State/Zipcode Phone Number MAIN LAB [address] [place] [address] * CBC AND DIFF (10/15/2018 4:02 AM ROOM SERVICE WAITER/WAITRESS) White Blood Cells 11.5 (H) 4.5 - 11.0 K/UL [facility] RBC 2.83 (L) 4.0 - 5.0 M/UL [facility] Hemoglobin 8.5 (L) 12.0 - 15.0 GM/DL [facility] Hematocrit 25.5 (L) 36 - 45 % [facility] MCV 90.2 80 - 100 FL [facility] MCH 30.1 26 - 34 PG [facility] MCHC 33.4 32.0 - 36.0 G/DL [facility] RDW 16.7 (H) 11 - 15 % [facility] Platelet Count 108 (L) 150 - 400 K/UL [facility] MPV 9.0 7 - 11 FL [facility] Neutrophils 39 (L) 41 - 77 % [facility] Lymphocytes 43 24 - 44 % [facility] Monocytes 6 4 - 12 % [facility] Eosinophils 11 (H) 0 - 5 % [facility] Basophils 1 0 - 2 % [facility] Absolute Neutrophil Count 4.40 1.8 - 7.0 K/UL [facility] Absolute Lymph Count 5.00 (H) 1.0 - 4.8 K/UL [facility] Absolute Monocyte Count 0.70 0 - 0.80 K/UL [facility] Absolute Eosinophil Count 1.30 (H) 0 - 0.45 K/[facility] Absolute Basophil Count 0.10 0 - 0.20 K/[facility] Specimen Blood Performing Organization Address City/State/Zipcode Phone Number MAIN LAB [address] [place] [address] * POC GLUCOSE (10/14/2018 8:22 PM ROOM SERVICE WAITER/WAITRESS) Glucose, POC 183 (H) 70 - 100 MG/DL [facility] Performing Organization Address City/[facility] [address]/Zipcode Phone Number MAIN LAB [address] [place] [address] * POC GLUCOSE (10/14/2018 5:01 PM ROOM SERVICE WAITER/WAITRESS) Glucose, POC 291 (H) 70 - 100 MG/DL [facility] Performing Organization Address City/[facility] [address]/Zipcode Phone Number MAIN LAB [address] [place] [address] * POC GLUCOSE (10/14/2018 1:28 PM ROOM SERVICE WAITER/WAITRESS) Glucose, POC 143 (H) 70 - 100 MG/DL [facility] Performing Organization Address City/[facility] [address]/[facility] Phone Number [facility] [address] [place] [address] * POC GLUCOSE (10/14/2018 10:16 AM ROOM SERVICE WAITER/WAITRESS) Glucose, POC 218 (H) 70 - 100 MG/DL [facility]IN [facility] Performing Organization Address City/[facility] [address]/[facility] Phone Number [facility] [address] [place] [address] * FLUORO MOBILE IN OR (10/14/2018 9:55 AM ROOM SERVICE WAITER/WAITRESS) Narrative Performed At This order has been auto finalized and does not contain a result. HERO [facility]ITAN Performing Organization Address City/[facility] [address]/Zipcode Phone Number HERO GAITAN * POC GLUCOSE (10/14/2018 9:14 AM ROOM SERVICE WAITER/WAITRESS) Glucose, POC 273 (H) 70 - 100 MG/DL [facility] Performing Organization Address City/State/Zipcode Phone Number MAIN LAB [address] [place] [address] * POC GLUCOSE (10/14/2018 7:03 AM ROOM SERVICE WAITER/WAITRESS) Glucose, POC 311 (H) 70 - 100 MG/DL [facility] Performing Organization Address City/State/Zipcode Phone Number MAIN LAB [address] [place] [address] * COMPREHENSIVE METABOLIC PANEL (10/14/2018 4:20 AM ROOM SERVICE WAITER/WAITRESS) Sodium 138 137 - 147 MMOL/L [facility] Potassium 3.5 3.5 - 5.1 MMOL/L [facility] Chloride 102 98 - 110 MMOL/L [facility] Glucose 232 (H) 70 - 100 MG/DL [facility] Blood Urea Nitrogen 6 (L) 7 - 25 MG/DL [facility] Creatinine 0.70 0.4 - 1.00 MG/DL [facility] Calcium 8.5 8.5 - 10.6 MG/DL [facility] Total Protein 5.2 (L) 6.0 - 8.0 G/DL [facility] Total Bilirubin 0.3 0.3 - 1.2 MG/DL [facility] Albumin 3.1 (L) 3.5 - 5.0 G/DL [facility] Alk Phosphatase 79 25 - 110 U/L [facility] AST (SGOT) 26 7 - 40 U/L [facility] CO2 29 21 - 30 MMOL/L [facility] ALT (SGPT) 24 7 - 56 U/L [facility] Anion Gap 7 3 - 12 [facility] eGFR [...] Address City/State/Zipcode Phone Number [facility] [address] [place] [address] * CBC AND DIFF (10/14/2018 4:20 AM ROOM SERVICE WAITER/WAITRESS) White Blood Cells 8.1 4.5 - 11.0 K/UL [facility] RBC 3.31 (L) 4.0 - 5.0 M/UL [facility] MAIN LAB Hemoglobin 9.9 (L) 12.0 - 15.0 GM/DL [facility] Hematocrit 30.0 (L) 36 - 45 % [facility] MCV 90.6 80 - 100 FL [facility] MCH 30.0 26 - 34 PG [facility] MCHC 33.1 32.0 - 36.0 G/DL [facility] RDW 17.9 (H) 11 - 15 % [facility] Platelet Count 131 (L) 150 - 400 K/UL [facility] MPV 9.1 7 - 11 FL [facility] Neutrophils 56 41 - 77 % [facility] Lymphocytes 31 24 - 44 % [facility] Monocytes 7 4 - 12 % [facility] Eosinophils 6 (H) 0 - 5 % [facility] Basophils 0 0 - 2 % [facility] Absolute Neutrophil Count 4.60 1.8 - 7.0 K/UL [facility] Absolute Lymph Count 2.50 1.0 - 4.8 K/UL [facility] Absolute Monocyte Count 0.50 0 - 0.80 K/UL [facility] Absolute Eosinophil Count 0.50 (H) 0 - 0.45 K/UL [facility] Absolute Basophil Count 0.00 0 - 0.20 K/UL [facility] Specimen Blood Performing Organization Address City/[facility] [address]/Zipcode Phone Number [facility] MA[facility] [address] [place] [address] * POC GLUCOSE (10/13/2018 8:07 PM ROOM SERVICE WAITER/WAITRESS) Glucose, POC 250 (H) 70 - 100 MG/DL [facility] Performing Organization Address City/[facility] [address]/Zipcode Phone Number [facility] [address] [place] [address] * POC GLUCOSE (10/13/2018 5:35 PM ROOM SERVICE WAITER/WAITRESS) Glucose, POC 109 (H) 70 - 100 MG/DL [facility] Performing Organization Address City/[facility] [address]/Zipcode Phone Number [facility] [address] [place] [address] * POC GLUCOSE (10/13/2018 5:05 PM ROOM SERVICE WAITER/WAITRESS) Glucose, POC 68 (L) 70 - 100 MG/DL [facility] Performing Organization Address City/State/Zipcode Phone Number [facility] [address] [place] [address] * POC GLUCOSE (10/13/2018 10:48 AM ROOM SERVICE WAITER/WAITRESS) Glucose, POC 259 (H) 70 - 100 MG/DL [facility] Performing Organization Address City/[facility] [address]/Zipcode Phone Number [facility] [address] [place] [address] * POC GLUCOSE (10/13/2018 7:34 AM ROOM SERVICE WAITER/WAITRESS) Glucose, POC 547 (HH) 70 - 100 MG/DL [facility] Performing Organization Address City/[facility] [address]/[facility] [address] [place] [address] * POC GLUCOSE (10/13/2018 7:30 AM ROOM SERVICE WAITER/WAITRESS) Glucose, POC 591 (HH) 70 - 100 MG/DL [facility] Performing Organization Address [facility] [address]/[facility] Phone Number [facility] [address] [place] [address] * IONIZED CALCIUM (10/13/2018 2:15 AM ROOM SERVICE WAITER/WAITRESS) Ionized Calcium 0.94 (L) 1.0 - 1.3 MMOL/L [facility]IN [facility] Specimen Blood Performing Organization Address [facility] [address]/[facility] Phone Number [facility] [address] [place] [address] * COMPREHENSIVE METABOLIC PANEL (10/13/2018 2:15 AM ROOM SERVICE WAITER/WAITRESS) Sodium 135 (L) 137 - 147 MMOL/L [facility] Potassium 3.8 3.5 - 5.1 MMOL/L [facility] Chloride 107 98 - 110 MMOL/L [facility] Glucose 349 (H) 70 - 100 MG/DL [facility] Blood Urea Nitrogen 9 7 - 25 MG/DL [facility] Creatinine 0.72 0.4 - 1.00 MG/DL [facility] Calcium 6.9 (L) 8.5 - 10.6 MG/DL [facility] Total Protein 4.0 (L) 6.0 - 8.0 G/DL [facility] Total Bilirubin 0.3 0.3 - 1.2 MG/DL [facility] Albumin 2.5 (L) 3.5 - 5.0 G/DL [facility] Alk Phosphatase 58 25 - 110 U/L [facility] AST (SGOT) 23 7 - 40 U/L [facility] MAIN LAB [...] Performing Organization Address City/[facility] [address]/Zipcode Phone Number [facility] [address] [place] [address] * CBC AND DIFF (10/13/2018 2:15 AM ROOM SERVICE WAITER/WAITRESS) White Blood Cells 9.8 4.5 - 11.0 K/UL [facility] RBC 2.98 (L) 4.0 - 5.0 M/UL [facility] Hemoglobin 8.9 (L) 12.0 - 15.0 GM/DL [facility] Hematocrit 26.6 (L) 36 - 45 % [facility] MCV 89.3 80 - 100 FL [facility] MCH 29.9 26 - 34 PG [facility] MCHC 33.5 32.0 - 36.0 G/DL [facility] RDW 18.4 (H) 11 - 15 % [facility] Platelet Count 80 (L) 150 - 400 K/UL [facility] MPV 8.2 7 - 11 FL [facility] Neutrophils 48 41 - 77 % [facility] Lymphocytes 42 24 - 44 % [facility] Monocytes 7 4 - 12 % [facility] Eosinophils 3 0 - 5 % [facility] Basophils 0 0 - 2 % [facility] Absolute Neutrophil Count 4.80 1.8 - 7.0 K/UL [facility] Absolute Lymph Count 4.10 1.0 - 4.8 K/UL [facility] Absolute Monocyte Count 0.60 0 - 0.80 K/UL [facility] Absolute Eosinophil Count 0.30 0 - 0.45 K/UL [facility] Absolute Basophil Count 0.00 0 - 0.20 K/UL [facility] MAIN [facility] Specimen Blood Performing Organization Address City/[facility] [address]/Zipcode Phone Number [facility] MAIN [facility] [address] [place] [address] * CHEST SINGLE VIEW (10/12/2018 11:13 PM ROOM SERVICE WAITER/WAITRESS) Impressions Performed At Stable chest radiograph demonstrating [...] identified. No parenchymal masses are detected. Left Gmvgeu-w-Ywtv catheter remains in place with its tip at the level of mid SVC. No pleural fluid is seen. No pneumothorax is identified. Procedure Note Interface, Radiant Results - 10/13/2018 11:39 AM ROOM SERVICE WAITER/WAITRESS CHEST SINGLE VIEW History: Questionable hypoxia. Chronic lymphocytic leukemia Technique: Single portable AP upright view of the chest was obtained. Comparison: Comparison is made to an examination of 08/04/2018. Findings: Cardiac size and configuration are stable. There is no vascular congestion. No acute interstitial or alveolar opacities are identified. No parenchymal masses are detected. Left Nloerh-q-Fxwo catheter remains in place with its tip at the level of mid SVC. No pleural fluid is seen. No pneumothorax is identified. IMPRESSION Stable chest radiograph demonstrating no acute cardiopulmonary abnormalities. Finalized by Kings Flores M.D. on 10/13/2018 11:36 AM. Dictated by Kings Flores M.D. on 10/13/2018 11:35 AM. Performing Organization Address [facility] Phone Number [facility] RESULTS * UA REFLEX CULTURE LABEL (10/12/2018 10:40 PM ROOM SERVICE WAITER/WAITRESS) UA Reflex Culture LAB LABEL [facility] MAIN [facility] Specimen Urine Performing Organization Address [facility] [address] [facility] Phone Number [facility] [address] [place] [address] * URINALYSIS MICROSCOPIC REFLEX TO CULTURE (10/12/2018 10:40 PM ROOM SERVICE WAITER/WAITRESS) WBCs,UA 0-2 0 - 2 /HPF K[facility] [...] MAIN LAB Specimen Urine Performing Organization Address [facility] [address] [facility]/Zipcode Phone Number MAIN LAB [address] [place] [phone] * URINALYSIS DIPSTICK REFLEX TO CULTURE (10/12/2018 10:40 PM ROOM SERVICE WAITER/WAITRESS) Color,UA YELLOW [facility] Turbidity,UA CLEAR CLEAR-CLEAR [facility]IN [facility] Specific [place]-Urine 1.009 1.003 - 1.035 [facility] MAIN LAB [...] MAIN LAB Specimen Urine Performing Organization Address City/[facility] [address]/[facility] Phone Number MAIN LAB [address] [place] [phone] * CT LOWER EXTREM WO CONT LEFT (10/12/2018 9:54 PM ROOM SERVICE WAITER/WAITRESS) Impressions Performed At 1.Comminuted fracture of the [...] Interface, Radiant Results - 10/12/2018 10:11 PM ROOM SERVICE WAITER/WAITRESS CT LOWER EXTREM WO CONT LEFT Clinical [...] on 10/12/2018 9:50 PM. Performing Organization Address City/[facility] [address]/[facility] Phone Number [facility] * POC GLUCOSE (10/12/2018 9:07 PM ROOM SERVICE WAITER/WAITRESS) Glucose, POC 259 (H) 70 - 100 MG/DL [facility] MAIN [facility] Performing Organization Address City/[facility] [address]/[facility] Phone [facility] MA[facility] LAB [address] [place] [address] * TIBIA & FIBULA 2 VIEWS LEFT (10/12/2018 8:30 PM ROOM SERVICE WAITER/WAITRESS) Impressions Performed At Findings/impression: [facility] RAD RESULTS Splinting material again noted about the tibia/fibula and ankle which slightly limits evaluation. Redemonstration of comminuted distal tibial fracture. Improved alignment at the fracture site. Improved alignment at the distal fibular fracture which is overall poorly visualized due to overlying casting material. Approved by Paul Trejo M.D. on 10/13/2018 8:46 AM By my electronic signature, I attest that I have personally reviewed the images for this examination and formulated the interpretations and opinions expressed in this report Finalized by Kings Flores M.D. on 10/13/2018 9:15 AM. Dictated by Paul Trejo M.D. on 10/13/2018 7:47 AM. Narrative Performed At TIBIA & FIBULA 2 VIEWS LEFT [facility] RAD RESULTS CLINICAL HISTORY: Female, 58 years old. FALL. COMPARISON: Same-day tibia/fibular radiograph from 6:44 PM. TECHNIQUE: TIBIA & FIBULA 2 VIEWS LEFT Procedure Note Interface, Radiant Results - 10/13/2018 9:18 AM ROOM SERVICE WAITER/WAITRESS TIBIA & FIBULA 2 VIEWS LEFT CLINICAL HISTORY: Female, 58 years old. FALL. COMPARISON: Same-day tibia/fibular radiograph from 6:44 PM. TECHNIQUE: TIBIA & FIBULA 2 VIEWS LEFT IMPRESSION Findings/impression: Splinting material again noted about the tibia/fibula and ankle which slightly limits evaluation. Redemonstration of comminuted distal tibial fracture. Improved alignment at the fracture site. Improved alignment at the distal fibular fracture which is overall poorly visualized due to overlying casting material. Approved by Paul Trejo M.D. on 10/13/2018 8:46 AM By my electronic signature, I attest that I have personally reviewed the images for this examination and formulated the interpretations and opinions expressed in this report Finalized by Kings Flores M.D. on 10/13/2018 9:15 AM. Dictated by Paul Trejo M.D. on 10/13/2018 7:47 AM. Performing Organization Address City/State/Zipcode Phone Number [facility] RAD RESULTS * TIBIA & FIBULA 2 VIEWS LEFT (10/12/2018 6:44 PM ROOM SERVICE WAITER/WAITRESS) Impressions Performed At Findings/impression: [facility] RAD RESULTS Interval placement of splinting material about the left lower extremity which limits evaluation of soft tissues and fine osseous detail. Redemonstration of comminuted and displaced fractures of the distal tibial and fibular diaphyses. Similar alignment with persistent posterior angulation of the distal tibial fracture site and overriding of the proximal fibular fracture fragment. Approved by Paul Trejo M.D. on 10/13/2018 10:33 AM By my electronic signature, I attest that I have personally reviewed the images for this examination and formulated the interpretations and opinions expressed in this report Finalized by Kings Flores M.D. on 10/13/2018 10:41 AM. Dictated by Paul Trejo M.D. on 10/13/2018 8:54 AM. Narrative Performed At TIBIA & FIBULA 2 VIEWS LEFT [facility] RAD RESULTS CLINICAL HISTORY: Female, 58 years old. FALL. COMPARISON: Tibia/fibular radiographs from earlier the same day TECHNIQUE: TIBIA & FIBULA 2 VIEWS LEFT Procedure Note Interface, Radiant Results - 10/13/2018 10:44 AM ROOM SERVICE WAITER/WAITRESS TIBIA & FIBULA 2 VIEWS LEFT CLINICAL HISTORY: Female, 58 years old. FALL. COMPARISON: Tibia/fibular radiographs from earlier the same day TECHNIQUE: TIBIA & FIBULA 2 VIEWS LEFT IMPRESSION Findings/impression: Interval placement of splinting material about the left lower extremity which limits evaluation of soft tissues and fine osseous detail. Redemonstration of comminuted and displaced fractures of the distal tibial and fibular diaphyses. Similar alignment with persistent posterior angulation of the distal tibial fracture site and overriding of the proximal fibular fracture fragment. Approved by Paul Trejo M.D. on 10/13/2018 10:33 AM By my electronic signature, I attest that I have personally reviewed the images for this examination and formulated the interpretations and opinions expressed in this report Finalized by Kings Flores M.D. on 10/13/2018 10:41 AM. Dictated by Paul Trejo M.D. on 10/13/2018 8:54 AM. Performing Organization Address City/State/Zipcode Phone Number [facility] RESULTS * ECG-SCAN (10/12/2018 5:30 PM ROOM SERVICE WAITER/WAITRESS) Narrative Performed At Ordered by an unspecified provider. * KNEE 1 OR 2 VIEWS BILATERAL (10/12/2018 5:30 PM ROOM SERVICE WAITER/WAITRESS) Impressions Performed At 1.No acute osseous abnormality involving the bilateral knees. [facility] RAD RESULTS Approved by Paul Terjo M.D. on 10/13/2018 8:36 AM By my [...] No acute fracture is visualized in the [id number]. Vascular calcifications are present. No radiopaque foreign body. No joint effusion is identified. Procedure Note Interface, Radiant Results - 10/13/2018 9:18 AM ROOM SERVICE WAITER/WAITRESS KNEE 1 OR 2 VIEWS BILATERAL CLINICAL [...] FOOT 2 VIEW BILATERAL (10/12/2018 5:30 PM ROOM SERVICE WAITER/WAITRESS) Impressions Performed At 1.Acute nondisplaced fracture of [...] Interface, Radiant Results - 10/13/2018 9:18 AM ROOM SERVICE WAITER/WAITRESS FOOT 2 VIEW BILATERAL CLINICAL HISTORY: Female, [...] RAD RESULTS * TIBIA & FIBULA 2 VIEW BILAT (10/12/2018 5:30 PM ROOM SERVICE WAITER/WAITRESS) Impressions Performed At 1.Comminuted and displaced fracture [...] Interface, Radiant Results - 10/13/2018 9:18 AM ROOM SERVICE WAITER/WAITRESS TIBIA & FIBULA 2 VIEW BILAT CLINICAL [...] MIN 3 VIEWS BILATERAL (10/12/2018 5:30 PM ROOM SERVICE WAITER/WAITRESS) Impressions Performed At 1.Comminuted and displaced fracture [...] Interface, Radiant Results - 10/13/2018 9:18 AM ROOM SERVICE WAITER/WAITRESS ANKLE MIN 3 VIEWS BILATERAL CLINICAL HISTORY: [...] on 10/13/2018 7:01 AM. Performing Organization Address City/State[facility] Phone Number [facility] * PROCEDURAL SEDATION (10/12/2018 4:29 PM ROOM SERVICE WAITER/WAITRESS) Narrative Performed At Jeet Tran MD 10/13/20189:39 AM Procedural Sedation Date/Time: 10/12/2018 9:35 AM Performed by: ABBY RILEY Authorized by: ABBY RILEY Consent: Verbal consent obtained. Written consent [...] to verify the correct patient, procedure, equipment, customer support specialist and site/side marked as required. [...] see nursing log for details. The total [id number] time was 35 minutes. * COMPREHENSIVE METABOLIC PANEL (10/12/2018 3:30 PM ROOM SERVICE WAITER/WAITRESS) Sodium 137 137 - 147 MMOL/L [facility] MAIN [facility] Potassium 3.7 3.5 - 5.1 MMOL/L [facility] Chloride 105 98 - 110 MMOL/L [facility] Glucose 151 (H) 70 - 100 MG/DL [facility] Blood Urea Nitrogen 11 7 - 25 MG/DL [facility] Creatinine 0.81 0.4 - 1.00 MG/DL [facility] Calcium 7.9 (L) 8.5 - 10.6 MG/DL [facility] Total Protein 5.5 (L) 6.0 - 8.0 G/DL [facility] Total Bilirubin 0.3 0.3 - 1.2 MG/DL [facility] Albumin 3.3 (L) 3.5 - 5.0 G/DL [facility] Alk Phosphatase 79 25 - 110 U/L [facility] AST (SGOT) 22 7 - 40 U/L [facility] CO2 25 21 - 30 MMOL/L [facility] ALT (SGPT) 24 7 - 56 U/L [facility] Anion Gap 7 3 - 12 [facility] MAIN [facility] eGFR [...] Performing Organization Address City/[facility] [address]/Zipcode Phone Number [facility] MAIN [facility] [address] [place] [address] * CBC AND DIFF (10/12/2018 3:30 PM ROOM SERVICE WAITER/WAITRESS) White Blood Cells 17.1 (H) 4.5 - 11.0 K/UL [facility] RBC 4.30 4.0 - 5.0 M/UL [facility] Hemoglobin 12.4 12.0 - 15.0 GM/DL [facility] Hematocrit 38.6 36 - 45 % [facility] MCV 89.8 80 - 100 FL [facility] MCH 28.9 26 - 34 PG [facility] MCHC 32.2 32.0 - 36.0 G/DL [facility] RDW 17.5 (H) 11 - 15 % [facility] Platelet Count 182 150 - 400 K/UL [facility] MPV 8.6 7 - 11 FL [facility] Neutrophils 82 (H) 41 - 77 % [facility] Lymphocytes 10 (L) 24 - 44 % [facility] Monocytes 7 4 - 12 % [facility] Eosinophils 1 0 - 5 % [facility] Basophils 0 0 - 2 % [facility] Absolute Neutrophil Count 14.00 (H) 1.8 - 7.0 K/UL [facility] Absolute Lymph Count 1.80 1.0 - 4.8 K/UL [facility] Absolute Monocyte Count 1.20 (H) 0 - 0.80 K/UL [facility] Absolute Eosinophil Count 0.10 0 - 0.45 K/UL [facility] Absolute Basophil Count 0.10 0 - 0.20 K/UL [facility] Specimen Blood Performing Organization Address City/State/Zipcode Phone Number [facility] [address] [place] [address] in this encounter Visit Diagnoses Diagnosis Closed fracture of left tibia and fibula, initial encounter - Primary Tibia/fibula fracture Closed fracture of unspecified part of fibula with tibia CLL (chronic lymphocytic leukemia) (HCC) Chronic lymphoid leukemia, without mention of having achieved remission Acquired hypothyroidism Unspecified hypothyroidism Chronic abdominal pain Abdominal pain, unspecified site 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, uncontrolled, 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, uncontrolled Anxiety and depression Dysthymic disorder Seizure disorder (HCC) Unspecified epilepsy without mention of intractable epilepsy in this encounter Admitting Diagnoses Diagnosis Tibia/fibula fracture Closed fracture of unspecified part of fibula with tibia in this encounter Administered Medications Action Date Dose Rate Site Medication Order MAR Action 10/15/2018 10:26 AM ROOM SERVICE WAITER/WAITRESS 650 mg acetaminophen (TYLENOL) tablet 650 mg Given 650 mg, Oral, EVERY 6 HOURS PRN, Starting Sun10/12/18 at 2105, Until Sun10/15/18 at 1210, Pain non-opioid: may be used alone or in combination with opioid analgesia, Temp > 38 C, TOTAL ACETAMINOPHEN DOSE NOT TO EXCEED 4GM DAILY, 650 mg Given 10/14/2018 9:17 PM ROOM SERVICE WAITER/WAITRESS 650 mg Given 10/14/2018 1:56 PM ROOM SERVICE WAITER/WAITRESS 10/18/2018 10:43 AM ROOM SERVICE WAITER/WAITRESS 650 mg acetaminophen (TYLENOL) tablet 650 mg Given 650 mg, Oral, EVERY 6 HOURS, First dose on Sun10/15/18 at 1630, Until Discontinued, TOTAL ACETAMINOPHEN DOSE NOT TO EXCEED 4GM DAILY, 650 mg Given 10/18/2018 4:06 AM ROOM SERVICE WAITER/WAITRESS 650 mg Given 10/17/2018 9:32 PM ROOM SERVICE WAITER/WAITRESS 10/18/2018 12:52 PM ROOM SERVICE WAITER/WAITRESS 30 mL acetaminophen/lidocaine/antacid DS(#) Given (GI COCKTAIL) 1:1:3 suspension 30 mL 30 mL, Oral, FOUR TIMES DAILY PRN, Starting 10/12/18 at 2105, Until Sun10/18/18 at 1756, Indigestion/Heartburn, 30mL (1:1:3)=192mg/6mL acetamin-6mL 2% vis lidocaine-18mL Antacid DS, 30 mL Given 10/16/2018 12:16 PM ROOM SERVICE WAITER/WAITRESS 30 mL Given 10/15/2018 5:23 PM ROOM SERVICE WAITER/WAITRESS 10/18/2018 2:13 PM ROOM SERVICE WAITER/WAITRESS 1 mg ALPRAZolam (XANAX) tablet 1 mg Given 1 mg, Oral, TWICE DAILY PRN, Starting 10/12/18 at 2105, Until Sun10/18/18 at 1756, Anxiety PO, Hold for sedation, 1 mg Given 10/17/2018 8:57 PM ROOM SERVICE WAITER/WAITRESS 1 mg Given 10/16/2018 9:31 PM ROOM SERVICE WAITER/WAITRESS 10/18/2018 10:43 AM ROOM SERVICE WAITER/WAITRESS 325 mg aspirin tablet 325 mg Given 325 mg, Oral, DAILY, First dose on Sun10/16/18 at 0900, Until Discontinued 325 mg Given 10/17/2018 9:56 AM ROOM SERVICE WAITER/WAITRESS 325 mg Given 10/16/2018 12:09 PM ROOM SERVICE WAITER/WAITRESS 10/18/2018 10:42 AM ROOM SERVICE WAITER/WAITRESS 40 mg atorvastatin (LIPITOR) tablet 40 mg Given 40 mg, Oral, DAILY, First dose on Sun10/13/18 at 0900, Until Discontinued 40 mg Given 10/17/2018 9:56 AM ROOM SERVICE WAITER/WAITRESS 40 mg Given 10/16/2018 12:10 PM ROOM SERVICE WAITER/WAITRESS 10/18/2018 10:42 AM ROOM SERVICE WAITER/WAITRESS 400 mg carBAMazepine (TEGRETOL) tablet 400 mg Given 400 mg, Oral, DAILY, First dose on Sun10/13/18 at 0900, Until Discontinued 400 mg Given 10/17/2018 9:58 AM ROOM SERVICE WAITER/WAITRESS 400 mg Given 10/16/2018 12:10 PM ROOM SERVICE WAITER/WAITRESS 10/15/2018 1:23 AM ROOM SERVICE WAITER/WAITRESS 1 g ceFAZolin (ANCEF) IVP 1 g Given 1 g, Intravenous, EVERY 8 HOURS, 2 doses, First dose on Sun10/14/18 at 1630, Last dose on Sun10/15/18 at 0030, IV PUSH -- RECONSTITUTE each 1 g vial by adding 10 mL 0.9% NACL, 1 g Given 10/14/2018 4:22 PM ROOM SERVICE WAITER/WAITRESS 10/18/2018 10:43 AM ROOM SERVICE WAITER/WAITRESS 10 mg cetirizine (ZYRTEC) tablet 10 mg Given 10 mg, Oral, EVERY MORNING, First dose on 10/13/18 at 0800, Until Discontinued 10 mg Given 10/17/2018 9:58 AM ROOM SERVICE WAITER/WAITRESS 10 mg Given 10/15/2018 10:28 AM ROOM SERVICE WAITER/WAITRESS 10/18/2018 10:43 AM ROOM SERVICE WAITER/WAITRESS 5,000 Units cholecalciferol (VITAMIN D-3) tablet Given 5,000 Units 5,000 Units, Oral, DAILY, First dose on 10/13/18 at 0900, Until Discontinued 5,000 Units Given 10/17/2018 9:54 AM ROOM SERVICE WAITER/WAITRESS 5,000 Units Given 10/15/2018 10:25 AM ROOM SERVICE WAITER/WAITRESS 10/18/2018 12:52 PM ROOM SERVICE WAITER/WAITRESS 10 mg dicyclomine (BENTYL) capsule 10 mg Given 10 mg, Oral, BEFORE MEALS AND AT BEDTIME, First dose on 10/12/18 at 2115, Until Discontinued 10 mg Given 10/18/2018 6:24 AM ROOM SERVICE WAITER/WAITRESS 10 mg Given 10/17/2018 8:57 PM ROOM SERVICE WAITER/WAITRESS 10/18/2018 10:38 AM ROOM SERVICE WAITER/WAITRESS [address] (CYMBALTA) capsule 90 mg Given 90 mg, Oral, DAILY, First dose on 10/13/18 at 0900, Until Discontinued 90 mg Given 10/17/2018 9:57 AM ROOM SERVICE WAITER/WAITRESS 90 mg Given 10/16/2018 12:11 PM ROOM SERVICE WAITER/WAITRESS 10/15/2018 8:19 PM ROOM SERVICE WAITER/WAITRESS 40 mg Arm, Right enoxaparin (LOVENOX) syringe 40 mg Given 40 mg, Subcutaneous, DAILY, First dose on 10/12/18 at 2115, Until Discontinued, For patients undergoing surgery: Consult physician in advance -- enoxaparin is an anticoagulant and may need to be held for 12hr prior to surgery or invasive procedures. NOTE: This is a HIGH ALERT Medication., 40 mg Arm, Right Given 10/14/2018 9:16 PM ROOM SERVICE WAITER/WAITRESS 40 mg Abdominal Tissue Given 10/13/2018 8:05 PM ROOM SERVICE WAITER/WAITRESS 10/15/2018 4:22 PM ROOM SERVICE WAITER/WAITRESS 40 mg famotidine (PEPCID) injection 40 mg Given 40 mg, Intravenous, ONCE, 1 dose, 10/15/18 at 1630, DILUTE W/ 10ML NS OR D5W. GIVE IV PUSH OVER 2 MIN, 10/13/2018 7:46 AM ROOM SERVICE WAITER/WAITRESS 25 mcg fentaNYL citrate PF (SUBLIMAZE) Given injection 12.5-25 mcg 12.5-25 mcg, Intravenous, EVERY 4 HOURS PRN, Starting 10/12/18 at 2000, Until 10/13/18 at 0849, Pain Injectable 25 mcg Given 10/13/2018 2:41 AM ROOM SERVICE WAITER/WAITRESS 25 mcg Given 10/12/2018 9:34 PM ROOM SERVICE WAITER/WAITRESS 10/12/2018 5:58 PM ROOM SERVICE WAITER/WAITRESS 50 mcg fentaNYL citrate PF (SUBLIMAZE) Given injection 50 mcg 50 mcg, Intravenous, EVERY 1 HOUR PRN, 3 doses, Starting 10/12/18 at 1627, Until 10/12/18 at 2002, Pain Injectable 50 mcg Given 10/12/2018 4:47 PM ROOM SERVICE WAITER/WAITRESS 10/14/2018 11:36 AM ROOM SERVICE WAITER/WAITRESS 50 mcg fentaNYL citrate PF (SUBLIMAZE) Given injection 50 mcg 50 mcg, Intravenous, EVERY 5 MIN PRN, Starting 10/14/18 at 1009, Until 10/14/18 at 1312, Pain Injectable, For Pain Score 4-6, Maximum total dose 200 mcg Hold if RR < 10, PACU (only) 10/18/2018 10:43 AM ROOM SERVICE WAITER/WAITRESS 324 mg ferrous gluconate tablet 324 mg Given 324 mg, Oral, DAILY WITH BREAKFAST, First dose on 10/13/18 at 0800, Until Discontinued, Each 324mg ferrous gluconate delivers 37.5mg elemental iron., 324 mg Given 10/17/2018 9:54 AM ROOM SERVICE WAITER/WAITRESS 324 mg Given 10/16/2018 12:11 PM ROOM SERVICE WAITER/WAITRESS 10/18/2018 10:40 AM ROOM SERVICE WAITER/WAITRESS 0.3 mg fludrocortisone (FLORINEF) tablet 0.3 mg Given 0.3 mg, Oral, DAILY, First dose on 10/13/18 at 0900, Until Discontinued 0.3 mg Given 10/17/2018 9:58 AM ROOM SERVICE WAITER/WAITRESS 0.3 mg Given 10/15/2018 10:26 AM ROOM SERVICE WAITER/WAITRESS 10/18/2018 2:14 PM ROOM SERVICE WAITER/WAITRESS 500 Units heparin lock flush PF syringe 500 Units Given 500 Units, Intravenous, ONCE, 1 dose, Sun10/18/18 at 1330, NOTE: This is a HIGH ALERT Medication., hydrALAZINE (APRESOLINE) injection 10 mg 10 mg, Intravenous, EVERY 6 HOURS PRN, Starting 10/12/18 at 2227, Until Sun10/18/18 at 1756, Systolic Blood Pressure..., Diastolic Blood Pressure..., For SBP greater than 160 or DBP greater than 100 10/14/2018 10:37 AM ROOM SERVICE WAITER/WAITRESS 1 mg HYDROmorphone injection (DILAUDID) Given injection 0.5-1 mg 0.5-1 mg, Intravenous, EVERY 10 MIN PRN, Starting 10/14/18 at 1009, Until Sun10/14/18 at 1312, Pain Injectable, For Pain Score 7-10, Maximum total dose of 2 mg Hold for RR <10, PACU (only) 1 mg Given 10/14/2018 10:25 AM ROOM SERVICE WAITER/WAITRESS 10/18/2018 10:40 AM ROOM SERVICE WAITER/WAITRESS 200 mg hydroxychloroquine (PLAQUENIL) tablet Given 200 mg 200 mg, Oral, DAILY, First dose on 10/13/18 at 0900, Until Discontinued 200 mg Given 10/17/2018 9:57 AM ROOM SERVICE WAITER/WAITRESS 200 mg Given 10/16/2018 12:11 PM ROOM SERVICE WAITER/WAITRESS 10/16/2018 6:09 PM ROOM SERVICE WAITER/WAITRESS 2 Units Arm, Right insulin aspart U-100 (NOVOLOG FLEXPEN) Given injection PEN 0-14 Units 0-14 Units, Subcutaneous, BEFORE MEALS AND AT BEDTIME, First dose on 10/13/18 at 0900, Until Discontinued, -POC glucose 140-180mg/dL at , , administer 2 units insulin, at 21, 03* administer 0 units. -POC glucose 181-220mg/dL at , , administer 4 units insulin, at , 03* administer 2 units. -POC glucose 221-260mg/dL at , , administer 6 units insulin, at , 03* administer 4 units. -POC glucose 261-300mg/dL at , , administer 8 units insulin, at , * administer 6 units. -POC glucose 301-350mg/dL at , , administer 10 units insulin, at , * administer 8 units. -POC glucose 351-400mg/dL at , administer 12 units insulin, at , * administer 10 units. -POC glucose >400mg/dL at , administer 14 units insulin, at , * administer 12 units. *only if ordered 5x's [...] request. DO NOT uncheck "Do not dispense", 10 Units Abdomen:RLQ Given 10/16/2018 2:38 PM ROOM SERVICE WAITER/WAITRESS 6 Units Arm, Right Given 10/15/2018 5:34 PM ROOM SERVICE WAITER/WAITRESS 10/12/2018 10:20 PM ROOM SERVICE WAITER/WAITRESS 2 Units Arm, Right insulin aspart U-100 (NOVOLOG FLEXPEN) Given injection PEN 0-7 Units 0-7 Units, Subcutaneous, BEFORE MEALS AND AT BEDTIME, First dose on 10/12/18 at 2115, Until Discontinued, -POC glucose 140-180mg/dL at , , administer 1 unit insulin, at 21, 03* administer 0 units. -POC glucose 181-220mg/dL at administer 2 units insulin, at , * administer 1 unit. -POC glucose 221-260mg/dL at administer 3 units insulin, at , * administer 2 units. -POC glucose 261-300mg/dL at administer 4 units insulin, at , * administer 3 units. -POC glucose 301-350mg/dL at administer 5 units insulin, at , * administer 4 units. -POC glucose 351-400mg/dL at administer 6 units insulin, at , * administer 5 units. -POC glucose >400mg/dL at administer 7 units insulin, at * administer 6 units. *only if ordered [...] request. DO NOT uncheck "Do not dispense", 10/18/2018 12:55 PM ROOM SERVICE WAITER/WAITRESS 1 Units Arm, Right insulin aspart U-100 (NOVOLOG FLEXPEN) Given injection PEN 0-7 Units 0-7 Units, Subcutaneous, BEFORE MEALS AND AT BEDTIME, First dose on Varsha 10/17/18 at 0900, Until Discontinued, -POC glucose 140-180mg/dL at administer 1 unit insulin, at , * administer 0 units. -POC glucose 181-220mg/dL at administer 2 units insulin, at , 03* administer 1 unit. -POC glucose 221-260mg/dL at administer 3 units insulin, at , * administer 2 units. -POC glucose 261-300mg/dL at administer 4 units insulin, at , * administer 3 units. -POC glucose 301-350mg/dL at administer 5 units insulin, at , * [...] request. DO NOT uncheck "Do not dispense", 1 Units Arm, Left Given 10/17/2018 9:33 PM ROOM SERVICE WAITER/WAITRESS 1 Units Arm, Right Given 10/17/2018 6:05 PM ROOM SERVICE WAITER/WAITRESS 10/18/2018 12:55 PM ROOM SERVICE WAITER/WAITRESS 5 Units Arm, Right insulin aspart U-100 (NOVOLOG FLEXPEN) Given injection PEN 5 Units 5 Units, Subcutaneous, THREE TIMES DAILY WITH MEALS, First dose on 10/13/18 at 1200, Until Discontinued, Hold if NPO for procedure, unable to eat, or if FSBS < 70 mg/dL Give at start of meal. NOTE: This is a HIGH ALERT Medication., Dispense pens manually with initial order and then upon request. DO NOT uncheck "Do not dispense", 5 Units Arm, Left Given 10/18/2018 10:45 AM ROOM SERVICE WAITER/WAITRESS 5 Units Arm, Right Given 10/17/2018 6:05 PM ROOM SERVICE WAITER/WAITRESS 10/13/2018 8:29 AM ROOM SERVICE WAITER/WAITRESS 8 Units Arm, Right insulin aspart U-100 (NOVOLOG FLEXPEN) Given injection PEN 8 Units 8 Units, Subcutaneous, THREE TIMES DAILY WITH MEALS, First dose on 10/13/18 at 0900, Until Discontinued, Hold if NPO for procedure, unable to eat, or if FSBS < 70 mg/dL Give at start of meal. NOTE: This is a HIGH ALERT Medication., Dispense pens manually with initial order and then upon request. DO NOT uncheck "Do not dispense", 10/16/2018 10:03 PM ROOM SERVICE WAITER/WAITRESS 12 Units Abdominal Tissue insulin glargine (LANTUS SOLOSTAR, Given BASAGLAR) injection PEN 12 Units 12 Units, Subcutaneous, AT BEDTIME DAILY, First dose on 10/13/18 at 2200, Until Discontinued, Continue if NPO. DO NOT mix with other insulins -- Do not mix with other insulins -- NOTE: This is a HIGH ALERT Medication., Dispense pens manually with initial order and then upon request. DO NOT uncheck "Do not dispense", 12 Units Arm, Right Given 10/15/2018 9:23 PM ROOM SERVICE WAITER/WAITRESS 12 Units Arm, Right Given 10/14/2018 10:55 PM ROOM SERVICE WAITER/WAITRESS 10/17/2018 9:32 PM ROOM SERVICE WAITER/WAITRESS 14 Units Abdominal Tissue insulin glargine (LANTUS SOLOSTAR, Given BASAGLAR) injection PEN 14 Units 14 Units, Subcutaneous, AT BEDTIME DAILY, First dose on Varsha 10/17/18 at 2200, Until Discontinued, Continue if NPO. DO NOT mix with other insulins -- Do not mix with other insulins -- NOTE: This is a HIGH ALERT Medication., Dispense pens manually with initial order and then upon request. DO NOT uncheck "Do not dispense", 10/13/2018 8:35 AM ROOM SERVICE WAITER/WAITRESS 10 Units Arm, Right insulin NPH (HUMULIN N KwikPen) Given injection PEN 10 Units 10 Units, Subcutaneous, ONCE, 1 dose, 10/13/18 at 0800, Continue if NPO. Do not mix with other insulins. NOTE: This is a HIGH ALERT Medication., Dispense pens manually with initial order and then upon request. DO NOT uncheck "Do not dispense", 10/12/2018 6:21 PM ROOM SERVICE WAITER/WAITRESS 125 mg ketamine (KETALAR) injection 125 mg Given 125 mg (2 mg/kg 62.5 kg), Intravenous, ONCE, 1 dose, 10/12/18 at 1800, NOTE: This is a HIGH ALERT Medication., 10/12/2018 5:00 PM ROOM SERVICE WAITER/WAITRESS 18.8 mg ketamine (KETALAR) injection 18.8 mg Given 18.8 mg (rounded from 18.75 mg=0.3 mg/kg 62.5 kg), Intravenous, ONCE, 1 dose, 10/12/18 at 1700, NOTE: This is a HIGH ALERT Medication., 10/12/2018 8:15 PM ROOM SERVICE WAITER/WAITRESS 20 mg ketamine (KETALAR) injection 20 mg Given 20 mg, Intravenous, ONCE, 1 dose, 10/12/18 at 2045, NOTE: This is a HIGH ALERT Medication., 10/12/2018 7:53 PM ROOM SERVICE WAITER/WAITRESS 62.5 mg ketamine (KETALAR) injection 62.5 mg Given 62.5 mg (1 mg/kg 62.5 kg), Intravenous, ONCE, 1 dose, 10/12/18 at 1945, NOTE: This is a HIGH ALERT Medication., 10/12/2018 5:03 PM ROOM SERVICE WAITER/WAITRESS 2,000 mL 999 mL/hr lactated ringers infusion Given - New 2,000 mL, 2,000 mL, Intravenous, at 999 Bag mL/hr, BOLUS, 1 dose, 10/12/18 at 1630 10/18/2018 6:24 AM ROOM SERVICE WAITER/WAITRESS 175 mcg levothyroxine (SYNTHROID) tablet 175 mcg Given 175 mcg, Oral, DAILY 30MIN BEFORE BREAKFAST, First dose on 10/13/18 at 0630, Until Discontinued, Give 1 hour before a meal. If patient is receiving tube feedings, hold tube feed 1hr before and 1hr after dose., 175 mcg Given 10/17/2018 6:32 AM ROOM SERVICE WAITER/WAITRESS 175 mcg Given 10/16/2018 6:42 AM ROOM SERVICE WAITER/WAITRESS 10/17/2018 8:57 PM ROOM SERVICE WAITER/WAITRESS 10 mg montelukast (SINGULAIR) tablet 10 mg Given 10 mg, Oral, AT BEDTIME DAILY, First dose on 10/12/18 at 2115, Until Discontinued 10 mg Given 10/16/2018 8:02 PM ROOM SERVICE WAITER/WAITRESS 10 mg Given 10/15/2018 8:18 PM ROOM SERVICE WAITER/WAITRESS 10/18/2018 2:20 PM ROOM SERVICE WAITER/WAITRESS 15 mg morphine (MSIR) oral solution 7.5-15 mg Given 7.5-15 mg, Oral, EVERY 4 HOURS PRN, Starting Sun10/16/18 at 2057, Until Sun10/18/18 at 1756, Pain PO 15 mg Given 10/18/2018 10:46 AM ROOM SERVICE WAITER/WAITRESS 15 mg Given 10/18/2018 4:06 AM ROOM SERVICE WAITER/WAITRESS 10/16/2018 3:00 PM ROOM SERVICE WAITER/WAITRESS 15 mg morphine (ROXANOL) oral concentrate Given 7.5-15 mg 7.5-15 mg, Oral, EVERY 4 HOURS PRN, Starting Sun10/15/18 at 1210, Until Sun10/16/18 at 2100, Pain PO 15 mg Given 10/16/2018 9:53 AM ROOM SERVICE WAITER/WAITRESS 15 mg Given 10/16/2018 4:09 AM ROOM SERVICE WAITER/WAITRESS 10/15/2018 12:05 PM ROOM SERVICE WAITER/WAITRESS 2 mg morphine injection syringe 2-4 mg Given 2-4 mg, Intravenous, EVERY 2 HOURS PRN, Starting 10/13/18 at 0849, Until Sun10/15/18 at 1211, Pain Injectable 2 mg Given 10/15/2018 6:06 AM ROOM SERVICE WAITER/WAITRESS 2 mg Given 10/14/2018 6:59 PM ROOM SERVICE WAITER/WAITRESS 10/15/2018 5:59 AM ROOM SERVICE WAITER/WAITRESS 4 mg ondansetron (ZOFRAN) injection 4 mg Given 4 mg, Intravenous, EVERY 6 HOURS PRN, Starting 10/12/18 at 2105, Until Sun10/15/18 at 0729, Nausea/Vomiting Injectable 4 mg Given 10/14/2018 9:40 AM ROOM SERVICE WAITER/WAITRESS 4 mg Given 10/14/2018 3:23 AM ROOM SERVICE WAITER/WAITRESS 10/16/2018 8:33 AM ROOM SERVICE WAITER/WAITRESS 4 mg ondansetron (ZOFRAN) injection 4 mg Given 4 mg, Intravenous, EVERY 4 HOURS PRN, Starting Sun10/15/18 at 0730, Until Sun10/18/18 at 1756, Nausea/Vomiting Injectable 4 mg Given 10/15/2018 5:24 PM ROOM SERVICE WAITER/WAITRESS 4 mg Given 10/15/2018 11:52 AM ROOM SERVICE WAITER/WAITRESS 10/15/2018 7:36 AM ROOM SERVICE WAITER/WAITRESS 4 mg ondansetron (ZOFRAN) injection 4 mg Given 4 mg, Intravenous, ONCE, 1 dose, [facility] 10/15/18 at 0730 10/15/2018 11:59 AM ROOM SERVICE WAITER/WAITRESS 15 mg oxyCODONE (ROXICODONE, OXY-IR) tablet Given 10-15 mg 10-15 mg, Oral, EVERY 4 HOURS PRN, Starting [facility] 10/15/18 at 0209, Until Sun10/15/18 at 1210, Pain PO, Hold for sedation, 15 mg Given 10/15/2018 7:40 AM ROOM SERVICE WAITER/WAITRESS 15 mg Given 10/15/2018 3:51 AM ROOM SERVICE WAITER/WAITRESS 10/13/2018 6:04 AM ROOM SERVICE WAITER/WAITRESS 5 mg oxyCODONE (ROXICODONE, OXY-IR) tablet 5 Given mg 5 mg, Oral, EVERY 4 HOURS PRN, Starting 10/12/18 at 2120, Until [facility] 10/13/18 at 0849, Pain PO, Hold for sedation, 5 mg Given 10/13/2018 2:04 AM ROOM SERVICE WAITER/WAITRESS 5 mg Given 10/12/2018 10:12 PM ROOM SERVICE WAITER/WAITRESS 10/14/2018 10:55 PM ROOM SERVICE WAITER/WAITRESS 10 mg oxyCODONE (ROXICODONE, OXY-IR) tablet Given 5-10 mg 5-10 mg, Oral, EVERY 4 HOURS PRN, Starting Sun10/13/18 at 0848, Until Sun10/15/18 at 0210, Pain PO, Hold for sedation, 10 mg Given 10/14/2018 5:52 PM ROOM SERVICE WAITER/WAITRESS 10 mg Given 10/14/2018 1:56 PM ROOM SERVICE WAITER/WAITRESS 10/18/2018 10:43 AM ROOM SERVICE WAITER/WAITRESS [address] (PROTONIX) tablet 40 mg Given 40 mg, Oral, DAILY, First dose on Sun10/13/18 at 0900, Until Discontinued, Do not crush or chew tablet., 40 mg Given 10/17/2018 9:57 AM ROOM SERVICE WAITER/WAITRESS 40 mg Given 10/16/2018 12:10 PM ROOM SERVICE WAITER/WAITRESS 10/18/2018 10:43 AM ROOM SERVICE WAITER/WAITRESS 100 mg pentosan polysulfate sodium (ELMIRON) Given capsule 100 mg 100 mg, Oral, THREE TIMES DAILY BEFORE MEALS, First dose on Sun10/13/18 at 0700, Until Discontinued 100 mg Given 10/18/2018 6:24 AM ROOM SERVICE WAITER/WAITRESS 100 mg Given 10/17/2018 4:28 PM ROOM SERVICE WAITER/WAITRESS 10/16/2018 8:01 PM ROOM SERVICE WAITER/WAITRESS 10 mEq 50 mL/hr potassium chloride in water IVPB 10 mEq Given - New 10 mEq, Intravenous, 50 mL, Administer Bag over 60 Minutes, EVERY 1 HOUR FOR 6 DOSES, 6 doses, First dose on Sun10/16/18 at 1500, Last dose on Sun10/16/18 at 2000, NOTE: This is a HIGH ALERT Medication., 10 mEq 50 mL/hr Given - New Bag 10/16/2018 6:58 PM ROOM SERVICE WAITER/WAITRESS 10 mEq 50 mL/hr Given - New Bag 10/16/2018 5:57 PM ROOM SERVICE WAITER/WAITRESS 10/15/2018 10:26 AM ROOM SERVICE WAITER/WAITRESS 10 mEq potassium chloride SR (K-DUR) tablet 10 Given mEq 10 mEq, Oral, DAILY, First dose on Sun10/13/18 at 0900, Until Discontinued, - Tablet may be dispersed in water. Place tab in 30 mL of water for 40-60 seconds. - Gently swirl until fully dispersed. If particles remain after admin, add small amount of water and admin remaining content. - DO NOT CRUSH. Tablet may be split in half. , 10 mEq Given 10/14/2018 1:56 PM ROOM SERVICE WAITER/WAITRESS 10 mEq Given 10/13/2018 8:34 AM ROOM SERVICE WAITER/WAITRESS 10/18/2018 10:42 AM ROOM SERVICE WAITER/WAITRESS 150 mg pregabalin (LYRICA) capsule 150 mg Given 150 mg, Oral, TWICE DAILY, First dose on Sun10/12/18 at 2115, Until Discontinued 150 mg Given 10/17/2018 8:57 PM ROOM SERVICE WAITER/WAITRESS 150 mg Given 10/17/2018 9:58 AM ROOM SERVICE WAITER/WAITRESS 10/15/2018 2:08 PM ROOM SERVICE WAITER/WAITRESS 10 mg prochlorperazine maleate (COMPAZINE) Given tablet 10 mg 10 mg, Oral, EVERY 6 HOURS PRN, Starting Sun10/14/18 at 0633, Until Sun10/18/18 at 1756, Nausea/Vomiting PO 10 mg Given 10/15/2018 7:57 AM ROOM SERVICE WAITER/WAITRESS 10/15/2018 5:55 PM ROOM SERVICE WAITER/WAITRESS 25 mg promethazine (PHENERGAN) rectal Given suppository 25 mg 25 mg, Rectal, ONCE, 1 dose, Sun10/15/18 at 1630 10/18/2018 10:42 AM ROOM SERVICE WAITER/WAITRESS 50 mg pyridoxine (VITAMIN B-6) tablet 50 mg Given 50 mg, Oral, DAILY, First dose on 10/13/18 at 0900, Until Discontinued 50 mg Given 10/17/2018 9:54 AM ROOM SERVICE WAITER/WAITRESS 50 mg Given 10/15/2018 10:27 AM ROOM SERVICE WAITER/WAITRESS 10/18/2018 10:49 AM ROOM SERVICE WAITER/WAITRESS 1 patch Ear, Behind scopolamine (TRANSDERM-SCOP) patch 1 Patch/Topica patch l Applied 1 patch, Transdermal, Administer over 72 Hours, EVERY 72 HOURS, First dose on Sun10/15/18 at 0945, Until Discontinued 1 patch Ear, Behind Patch/Topical Applied 10/15/2018 8:46 AM ROOM SERVICE WAITER/WAITRESS 10/12/2018 10:10 PM ROOM SERVICE WAITER/WAITRESS 1,000 mL 75 mL/hr sodium chloride 0.9 % infusion Given - New 1,000 mL, 1,000 mL, Intravenous, at 75 Bag mL/hr, ONCE, 1 dose, [facility] 10/12/18 at 2115 10/18/2018 10:51 AM ROOM SERVICE WAITER/WAITRESS 1 g SUCRALFATE 1gm/10ml (Patients own Given medication) 1 g, Oral, BEFORE MEALS AND AT BEDTIME, First dose on 10/13/18 at 0700, Until Discontinued, Patients own medication, 1 g Given 10/18/2018 6:25 AM ROOM SERVICE WAITER/WAITRESS 1 g Given 10/17/2018 8:58 PM ROOM SERVICE WAITER/WAITRESS 10/16/2018 3:37 AM ROOM SERVICE WAITER/WAITRESS 4 mg tiZANidine (ZANAFLEX) tablet 4 mg Given 4 mg, Oral, EVERY 6 HOURS PRN, Starting 10/12/18 at 2105, Until Sun10/18/18 at 1756, Muscle Cramps 4 mg Given 10/15/2018 2:53 PM ROOM SERVICE WAITER/WAITRESS 4 mg Given 10/14/2018 4:26 PM ROOM SERVICE WAITER/WAITRESS 10/18/2018 10:45 AM ROOM SERVICE WAITER/WAITRESS 1 tablet vitamins, B complex tablet 1 tablet Given 1 tablet, Oral, DAILY, First dose on 10/13/18 at 0900, Until Discontinued 1 tablet Given 10/17/2018 9:53 AM ROOM SERVICE WAITER/WAITRESS 1 tablet Given 10/15/2018 10:28 AM ROOM SERVICE WAITER/WAITRESS 10/18/2018 10:42 AM ROOM SERVICE WAITER/WAITRESS 1 tablet vitamins, multiple tablet 1 tablet Given 1 tablet, Oral, DAILY, First dose on 10/13/18 at 0900, Until Discontinued 1 tablet Given 10/17/2018 9:54 AM ROOM SERVICE WAITER/WAITRESS 1 tablet Given 10/15/2018 10:26 AM ROOM SERVICE WAITER/WAITRESS 10/17/2018 8:57 PM ROOM SERVICE WAITER/WAITRESS 5 mg zolpidem (AMBIEN) tablet 5 mg Given 5 mg, Oral, AT BEDTIME PRN, Starting 10/13/18 at 0848, Until Sun10/18/18 at 1756, Insomnia 5 mg Given 10/16/2018 9:31 PM ROOM SERVICE WAITER/WAITRESS 5 mg Given 10/15/2018 9:25 PM ROOM SERVICE WAITER/WAITRESS in this encounter
--- OUTSIDE RECORDS SUMMARY | 2018-12-27 17:58 | XMS REPORT | Encounter Summary ---
Author Author [facility] Organization [facility] Address Unknown Phone Unavailable Care Team Providers Care Electrification Adviser Name Role Phone Charles Chua MD Unavailable iMgue Patton MD PCP Reason for Visit * Reason Comments Fall * Auth/Cert Referred By Contact Referred To Contact Status Reason Specialty Diagnoses / Procedures Diagnoses Hypotension Diarrhea CLL (chronic lymphocytic leukemia) (HCC) Encounter Details Care Team Description Date Type Department Paul Manley MD [address] [place], [place] [id number] OPEN TREATMENT TIBIAL SHAFT FRACTURE IM NAIL 10/14/2018 Surgery Main Operating Room [address] [id number] Social History Date Tobacco Use Types Packs/Day [...] Taken Vital Sign Reading 10/18/2018 5:51 AM REFRIGERATION MANAGER Blood Pressure 124/59 10/18/2018 5:51 AM REFRIGERATION MANAGER Pulse 84 10/18/2018 5:51 AM REFRIGERATION MANAGER Temperature 37.1 C (98.7 F) - Respiratory Rate - 10/18/2018 5:51 AM REFRIGERATION MANAGER Oxygen Saturation 92% - Inhaled Oxygen - Concentration 10/12/2018 9:31 PM REFRIGERATION MANAGER Weight 67.2 kg (148 lb 2.4 oz) 10/12/2018 9:31 PM REFRIGERATION MANAGER Height 165.1 cm (5' 5") 10/12/2018 9:31 PM REFRIGERATION MANAGER Body Mass Index 24.65 in this encounter [...] Date Type Specialty Gunnar Kirk MD [address] [place] [address] [phone] Delayed gastric emptying 02/03/2019 Hospital Encounter Gunnar Kirk MD [address] [place] [address] [phone] ESOPHAGOGASTRODUODENOSCOPY WITH SPECIMEN COLLECTION BY BRUSHING/ WASHING 02/03/2019 Surgery as of this encounter Procedures Comments Procedure Name Priority Date/Time Associated Diagnosis TELEMETRY STRIPS-SCAN 10/20/2018 2:54 PM REFRIGERATION MANAGER POC GLUCOSE 10/18/2018 12:12 PM REFRIGERATION MANAGER POC GLUCOSE 10/18/2018 9:12 AM REFRIGERATION MANAGER CBC Routine 10/18/2018 4:00 AM REFRIGERATION MANAGER BASIC METABOLIC PANEL Routine 10/18/2018 4:00 AM REFRIGERATION MANAGER POC GLUCOSE 10/17/2018 9:05 PM REFRIGERATION MANAGER POC GLUCOSE 10/17/2018 5:42 PM REFRIGERATION MANAGER POC GLUCOSE 10/17/2018 5:04 PM REFRIGERATION MANAGER POC GLUCOSE 10/17/2018 4:25 PM REFRIGERATION MANAGER POC GLUCOSE 10/17/2018 11:30 AM REFRIGERATION MANAGER POC GLUCOSE 10/17/2018 9:25 AM REFRIGERATION MANAGER CBC AND DIFF Routine 10/17/2018 3:50 AM REFRIGERATION MANAGER COMPREHENSIVE METABOLIC Routine 10/17/2018 PANEL 3:50 AM REFRIGERATION MANAGER POC GLUCOSE 10/16/2018 11:00 PM REFRIGERATION MANAGER POC GLUCOSE 10/16/2018 9:49 PM REFRIGERATION MANAGER POC GLUCOSE 10/16/2018 6:02 PM REFRIGERATION MANAGER POC GLUCOSE 10/16/2018 4:24 PM REFRIGERATION MANAGER POC GLUCOSE 10/16/2018 2:26 PM REFRIGERATION MANAGER POC GLUCOSE 10/16/2018 8:37 AM REFRIGERATION MANAGER CBC AND DIFF Routine 10/16/2018 4:28 AM REFRIGERATION MANAGER COMPREHENSIVE METABOLIC Routine 10/16/2018 PANEL 4:28 AM REFRIGERATION MANAGER POC GLUCOSE 10/16/2018 4:21 AM REFRIGERATION MANAGER POC GLUCOSE 10/15/2018 8:25 PM REFRIGERATION MANAGER POC GLUCOSE 10/15/2018 5:34 PM REFRIGERATION MANAGER ECG-SCAN 10/15/2018 1:20 PM REFRIGERATION MANAGER POC GLUCOSE 10/15/2018 12:11 PM REFRIGERATION MANAGER POC GLUCOSE 10/15/2018 8:35 AM REFRIGERATION MANAGER CBC AND DIFF Routine 10/15/2018 4:02 AM REFRIGERATION MANAGER COMPREHENSIVE METABOLIC Routine 10/15/2018 PANEL 4:02 AM REFRIGERATION MANAGER POC GLUCOSE 10/14/2018 8:22 PM REFRIGERATION MANAGER POC GLUCOSE 10/14/2018 5:01 PM REFRIGERATION MANAGER POC GLUCOSE 10/14/2018 1:28 PM REFRIGERATION MANAGER POC GLUCOSE 10/14/2018 10:16 AM REFRIGERATION MANAGER FLUORO MOBILE IN OR Routine 10/14/2018 9:55 AM REFRIGERATION MANAGER POC GLUCOSE 10/14/2018 9:14 AM REFRIGERATION MANAGER OPEN TREATMENT TIBIAL 10/14/2018 Closed fracture of left SHAFT FRACTURE WITH 7:30 AM REFRIGERATION MANAGER tibia and fibula, initial PLATES/ SCREWS WITH/ encounter WITHOUT CERCLAGE POC GLUCOSE 10/14/2018 7:03 AM REFRIGERATION MANAGER CBC AND DIFF Routine 10/14/2018 4:20 AM REFRIGERATION MANAGER COMPREHENSIVE METABOLIC Routine 10/14/2018 PANEL 4:20 AM REFRIGERATION MANAGER POC GLUCOSE 10/13/2018 8:07 PM REFRIGERATION MANAGER POC GLUCOSE 10/13/2018 5:35 PM REFRIGERATION MANAGER POC GLUCOSE 10/13/2018 5:05 PM REFRIGERATION MANAGER POC GLUCOSE 10/13/2018 10:48 AM REFRIGERATION MANAGER POC GLUCOSE 10/13/2018 7:34 AM REFRIGERATION MANAGER POC GLUCOSE 10/13/2018 7:30 AM REFRIGERATION MANAGER CBC AND DIFF Routine 10/13/2018 2:15 AM REFRIGERATION MANAGER IONIZED CALCIUM Routine 10/13/2018 2:15 AM REFRIGERATION MANAGER COMPREHENSIVE METABOLIC Routine 10/13/2018 PANEL 2:15 AM REFRIGERATION MANAGER CHEST SINGLE VIEW Routine 10/12/2018 11:13 PM REFRIGERATION MANAGER UA REFLEX CULTURE LABEL STAT 10/12/2018 10:40 PM REFRIGERATION MANAGER URINALYSIS MICROSCOPIC STAT 10/12/2018 REFLEX TO CULTURE 10:40 PM REFRIGERATION MANAGER URINALYSIS DIPSTICK STAT 10/12/2018 REFLEX TO CULTURE 10:[address] LOWER EXTREM WO CONT JOSH 10/12/2018 LEFT 9:54 PM REFRIGERATION MANAGER POC GLUCOSE 10/12/2018 9:07 PM REFRIGERATION MANAGER TIBIA & FIBULA 2 VIEWS STAT 10/12/2018 LEFT 8:30 PM REFRIGERATION MANAGER TIBIA & FIBULA 2 VIEWS STAT 10/12/2018 LEFT 6:44 PM REFRIGERATION MANAGER ECG-SCAN 10/12/2018 5:30 PM REFRIGERATION MANAGER TIBIA & FIBULA 2 VIEW STAT 10/12/2018 BILAT 5:30 PM REFRIGERATION MANAGER KNEE 1 OR 2 VIEWS STAT 10/12/2018 BILATERAL 5:30 PM REFRIGERATION MANAGER FOOT 2 VIEW BILATERAL STAT 10/12/2018 5:30 PM REFRIGERATION MANAGER ANKLE MIN 3 VIEWS STAT 10/12/2018 BILATERAL 5:30 PM REFRIGERATION MANAGER PROCEDURAL SEDATION Routine 10/12/2018 4:29 PM REFRIGERATION MANAGER ECG 12-LEAD STAT 10/12/2018 4:28 PM REFRIGERATION MANAGER CBC AND DIFF STAT 10/12/2018 3:30 PM REFRIGERATION MANAGER COMPREHENSIVE METABOLIC STAT 10/12/2018 PANEL 3:30 PM REFRIGERATION MANAGER in this encounter Results * TELEMETRY STRIPS-SCAN (10/20/2018 2:54 PM REFRIGERATION MANAGER) Narrative Performed At Ordered by an unspecified provider. * POC GLUCOSE (10/18/2018 12:12 PM REFRIGERATION MANAGER) Glucose, POC 170 (H) 70 - 100 MG/DL [facility] Performing Organization Address [facility] Services[facility] Phone Number [facility] [address] [phone] * POC GLUCOSE (10/18/2018 9:12 AM REFRIGERATION MANAGER) Glucose, POC 118 (H) 70 - 100 MG/DL [facility] Performing Organization Address [facility] Services[facility] Phone Number [facility] [address] [place] [address] * CBC (10/18/2018 4:00 AM REFRIGERATION MANAGER) White Blood Cells 8.5 4.5 - 11.0 K/UL [facility] RBC 3.08 (L) 4.0 - 5.0 M/UL [facility] Hemoglobin 9.2 (L) 12.0 - 15.0 GM/DL [facility] Hematocrit 28.6 (L) 36 - 45 % [facility] MCV 92.9 80 - 100 FL [facility] MCH 29.9 26 - 34 PG [facility] MCHC 32.2 32.0 - 36.0 G/DL [facility] RDW 18.6 (H) 11 - 15 % [facility] Platelet Count 262 150 - 400 K/UL [facility] MPV 8.7 7 - 11 FL [facility] Specimen Blood Performing Organization Address City/[facility]/Zipcode Phone Number MAIN LAB [address] [place] [address] * BASIC METABOLIC PANEL (10/18/2018 4:00 AM REFRIGERATION MANAGER) Sodium 139 137 - 147 MMOL/L [facility] Potassium 3.9 3.5 - 5.1 MMOL/L [facility] Chloride 102 98 - 110 MMOL/L [facility] CO2 30 21 - 30 MMOL/L [facility] Anion Gap 7 3 - 12 [facility] Glucose 160 (H) 70 [...] for questions. Specimen Blood Performing Organization Address City/[facility]/Zipcode Phone Number MAIN LAB [address] [place] [address] * POC GLUCOSE (10/17/2018 9:05 PM REFRIGERATION MANAGER) Glucose, POC 196 (H) 70 - 100 MG/DL [facility] Performing Organization Address City/[facility]/Zipcode Phone Number MAIN LAB [address] [place] [address] * POC GLUCOSE (10/17/2018 5:42 PM REFRIGERATION MANAGER) Glucose, POC 145 (H) 70 - 100 MG/DL [facility] Performing Organization Address City/[facility]/Zipcode Phone Number MAIN LAB [address] [place] [address] * POC GLUCOSE (10/17/2018 5:04 PM REFRIGERATION MANAGER) Glucose, POC 131 (H) 70 - 100 MG/DL [facility] Performing Organization Address City/[facility] Services[facility] Phone Number [facility] [address] [place] [address] * POC GLUCOSE (10/17/2018 4:25 PM REFRIGERATION MANAGER) Glucose, POC 61 (L) 70 - 100 MG/DL [facility] Performing Organization Address [facility] Services[facility] Phone Number [facility] [address] [place] [address] * POC GLUCOSE (10/17/2018 11:30 AM REFRIGERATION MANAGER) Glucose, POC 200 (H) 70 - 100 MG/DL [facility] Performing Organization Address City/[facility] Services[facility] Phone Number [facility] [address] [place] [address] * POC GLUCOSE (10/17/2018 9:25 AM REFRIGERATION MANAGER) Glucose, POC 166 (H) 70 - 100 MG/DL [facility] Performing Organization Address [facility] Phone Number [facility] [address] [place] [address] * COMPREHENSIVE METABOLIC PANEL (10/17/2018 3:50 AM REFRIGERATION MANAGER) Sodium 135 (L) 137 - 147 MMOL/L [...] for questions. Specimen Blood Performing Organization Address City/[facility]/Zipcode Phone Number MAIN LAB [address] [place] [address] * CBC AND DIFF (10/17/2018 3:50 AM REFRIGERATION MANAGER) White Blood Cells 9.1 4.5 - 11.0 [...] MAIN LAB Specimen Blood Performing Organization Address City/[facility]/Zipcode Phone Number MARGRET [facility] [address] [place] [address] * POC GLUCOSE (10/16/2018 11:00 PM REFRIGERATION MANAGER) Glucose, POC 149 (H) 70 - 100 MG/DL [facility] Performing Organization Address City/[facility]/Zipcode Phone Number [facility] [address] [place] [address] * POC GLUCOSE (10/16/2018 9:49 PM REFRIGERATION MANAGER) Glucose, POC 109 (H) 70 - 100 MG/DL [facility] Performing Organization Address City/[facility]/Zipcode Phone Number [facility] [address] [place] [address] * POC GLUCOSE (10/16/2018 6:02 PM REFRIGERATION MANAGER) Glucose, POC 176 (H) 70 - 100 MG/DL [facility] Performing Organization Address City/[facility] Services[facility] Phone Number [facility] [address] [place] [address] * POC GLUCOSE (10/16/2018 4:24 PM REFRIGERATION MANAGER) Glucose, POC 288 (H) 70 - 100 MG/DL [facility] Performing Organization Address City/[facility] Services[facility] Phone Number [facility] [address] [place] [address] * POC GLUCOSE (10/16/2018 2:26 PM REFRIGERATION MANAGER) Glucose, POC 306 (H) 70 - 100 MG/DL [facility] Performing Organization Address City/[facility] Services[facility] Phone Number [facility] [address] [place] [address] * POC GLUCOSE (10/16/2018 8:37 AM REFRIGERATION MANAGER) Glucose, POC 181 (H) 70 - 100 MG/DL [facility] Performing Organization Address City/[facility] Phone Number [facility] [address] [place] [address] * COMPREHENSIVE METABOLIC PANEL (10/16/2018 4:28 AM REFRIGERATION MANAGER) Sodium 137 137 - 147 MMOL/L [facility] [...] Organization Address City/State/Zipcode Phone Number MAIN LAB [address] [place] [address] * CBC AND DIFF (10/16/2018 4:28 AM REFRIGERATION MANAGER) White Blood Cells 10.1 4.5 - 11.0 [...] Monocyte Count 0.70 0 - 0.80 K/UL MAIN [facility] Absolute Eosinophil Count 1.20 (H) 0 - 0.45 K/UL [facility] Absolute Basophil Count 0.10 0 - 0.20 K/UL MAIN LAB Specimen Blood Performing Organization Address City/[facility]/Zipcode Phone Number MAIN LAB [address] [place] [address] * POC GLUCOSE (10/16/2018 4:21 AM REFRIGERATION MANAGER) Glucose, POC 161 (H) 70 - 100 MG/DL [facility] Performing Organization Address City/[facility] Services[facility] Phone Number MAIN LAB [address] [place] [address] * POC GLUCOSE (10/15/2018 8:25 PM REFRIGERATION MANAGER) Glucose, POC 137 (H) 70 - 100 MG/DL [facility] Performing Organization Address [facility] Services[facility] Phone Number MAIN LAB [address] [place] [address] * POC GLUCOSE (10/15/2018 5:34 PM REFRIGERATION MANAGER) Glucose, POC 249 (H) 70 - 100 MG/DL MAIN LAB Performing Organization Address [facility] Services[facility] Phone Number MAIN LAB [address] [place] [address] * ECG-SCAN (10/15/2018 1:20 PM REFRIGERATION MANAGER) Narrative Performed At Ordered by an unspecified provider. * POC GLUCOSE (10/15/2018 12:11 PM REFRIGERATION MANAGER) Glucose, POC 215 (H) 70 - 100 MG/DL [facility] Performing Organization Address City/[facility] Services[facility] Phone Number MAIN LAB [address] [place] [address] * POC GLUCOSE (10/15/2018 8:35 AM REFRIGERATION MANAGER) Glucose, POC 308 (H) 70 - 100 MG/DL [facility] Performing Organization Address City/[facility]/Zipcode Phone Number MAIN LAB [address] [place] [address] * COMPREHENSIVE METABOLIC PANEL (10/15/2018 4:02 AM REFRIGERATION MANAGER) Sodium 138 137 - 147 MMOL/L K[facility] [...] Organization Address City/State/Zipcode Phone Number MAIN LAB [address] [place] [address] * CBC AND DIFF (10/15/2018 4:02 AM REFRIGERATION MANAGER) White Blood Cells 11.5 (H) 4.5 - [...] Count 1.30 (H) 0 - 0.45 K/UL [facility] Absolute Basophil Count 0.10 0 - 0.20 K/UL [facility] Specimen Blood Performing Organization Address City/State/Zipcode Phone Number MAIN LAB [address] [place] [address] * POC GLUCOSE (10/14/2018 8:22 PM REFRIGERATION MANAGER) Glucose, POC 183 (H) 70 - 100 MG/DL [facility] Performing Organization Address City/[facility]/Zipcode Phone Number [facility] [address] [place] [address] * POC GLUCOSE (10/14/2018 5:01 PM REFRIGERATION MANAGER) Glucose, POC 291 (H) 70 - 100 MG/DL [facility] Performing Organization Address City/[facility]/Zipcode Phone Number MAIN LAB [address] [place] [address] * POC GLUCOSE (10/14/2018 1:28 PM REFRIGERATION MANAGER) Glucose, POC 143 (H) 70 - 100 MG/DL [facility] Performing Organization Address City/[facility]/Zipcode Phone Number MAIN LAB [address] [place] [address] * POC GLUCOSE (10/14/2018 10:16 AM REFRIGERATION MANAGER) Glucose, POC 218 (H) 70 - 100 MG/DL [facility] Performing Organization Address City/[facility]/Zipcode Phone Number MAIN LAB [address] [place] [address] * FLUORO MOBILE IN OR (10/14/2018 9:55 AM REFRIGERATION MANAGER) Narrative Performed At This order has been auto finalized and does not contain a result. HERO GAITAN Performing Organization Address [facility]/Zipcode Phone Number HERO GAITAN * POC GLUCOSE (10/14/2018 9:14 AM REFRIGERATION MANAGER) Glucose, POC 273 (H) 70 - 100 MG/DL [facility] Performing Organization Address [facility] Phone Number [facility] [address] [place] [address] * POC GLUCOSE (10/14/2018 7:03 AM REFRIGERATION MANAGER) Glucose, POC 311 (H) 70 - 100 MG/DL [facility] Performing Organization Address [facility] Phone Number [facility] [address] [place] [address] * COMPREHENSIVE METABOLIC PANEL (10/14/2018 4:20 AM REFRIGERATION MANAGER) Sodium 138 137 - 147 MMOL/L [facility] [...] for questions. Specimen Blood Performing Organization Address [facility] Phone Number [facility] [address] [place] [address] * CBC AND DIFF (10/14/2018 4:20 AM REFRIGERATION MANAGER) White Blood Cells 8.1 4.5 - 11.0 [...] MAIN LAB Specimen Blood Performing Organization Address [facility] Phone Number [facility] [address] [place] [address] * POC GLUCOSE (10/13/2018 8:07 PM REFRIGERATION MANAGER) Glucose, POC 250 (H) 70 - 100 MG/DL [facility] Performing Organization Address City/[facility]/Zipcode Phone Number [facility] [address] [place] [address] * POC GLUCOSE (10/13/2018 5:35 PM REFRIGERATION MANAGER) Glucose, POC 109 (H) 70 - 100 MG/DL [facility] Performing Organization Address City/[facility] Phone Number [facility] [address] [place] [address] * POC GLUCOSE (10/13/2018 5:05 PM REFRIGERATION MANAGER) Glucose, POC 68 (L) 70 - 100 MG/DL [facility] Performing Organization Address [facility] Phone Number [facility] [address] [place] [address] * POC GLUCOSE (10/13/2018 10:48 AM REFRIGERATION MANAGER) Glucose, POC 259 (H) 70 - 100 MG/DL [facility] Performing Organization Address City/[facility] Phone Number [facility] [address] [place] [address] * POC GLUCOSE (10/13/2018 7:34 AM REFRIGERATION MANAGER) Glucose, POC 547 (HH) 70 - 100 MG/DL [facility] Performing Organization Address [facility] Phone Number [facility] [address] [place] [address] * POC GLUCOSE (10/13/2018 7:30 AM REFRIGERATION MANAGER) Glucose, POC 591 (HH) 70 - 100 MG/DL [facility] Performing Organization Address [facility] Phone Number MAIN LAB [address] [place] [address] * IONIZED CALCIUM (10/13/2018 2:15 AM REFRIGERATION MANAGER) Ionized Calcium 0.94 (L) 1.0 - 1.3 MMOL/L [facility] Specimen Blood Performing Organization Address [facility] Phone Number MA[facility] [address] [place] [address] * COMPREHENSIVE METABOLIC PANEL (10/13/2018 2:15 AM REFRIGERATION MANAGER) Sodium 135 (L) 137 - 147 MMOL/L [...] City/State/Zipcode Phone Number [facility] [address] [place] [address] * CBC AND DIFF (10/13/2018 2:15 AM REFRIGERATION MANAGER) White Blood Cells 9.8 4.5 - 11.0 [...] City/State/Zipcode Phone Number [facility] [address] [place] [address] * CHEST SINGLE VIEW (10/12/2018 11:13 PM REFRIGERATION MANAGER) Impressions Performed At Stable chest radiograph demonstrating [...] identified. No parenchymal masses are detected. Left Xlellx-k-Mlzz catheter remains in place with its tip at the level of mid SVC. No pleural fluid is seen. No pneumothorax is identified. Procedure Note Interface, Radiant Results - 10/13/2018 11:39 AM REFRIGERATION MANAGER CHEST SINGLE VIEW History: Questionable hypoxia. Chronic lymphocytic leukemia Technique: Single portable AP upright view of the chest was obtained. Comparison: Comparison is made to an examination of 08/04/2018. Findings: Cardiac size and configuration are stable. There is no vascular congestion. No acute interstitial or alveolar opacities are identified. No parenchymal masses are detected. Left Kbfpfy-m-Hovi catheter remains in place with its tip at the level of mid SVC. No pleural fluid is seen. No pneumothorax is identified. IMPRESSION Stable chest radiograph demonstrating no acute cardiopulmonary abnormalities. Finalized by Kings Flores M.D. on 10/13/2018 11:36 AM. Dictated by Kings Flores M.D. on 10/13/2018 11:35 AM. Performing Organization Address City/State/Zipcode Phone Number [facility] RES[facility] * UA REFLEX CULTURE LABEL (10/12/2018 10:40 PM REFRIGERATION MANAGER) UA Reflex Culture LAB LABEL [facility] Specimen Urine Performing Organization Address City/State/Zipcode Phone Number [facility] [address] [phone] * URINALYSIS MICROSCOPIC REFLEX TO CULTURE (10/12/2018 10:40 PM REFRIGERATION MANAGER) WBCs,UA 0-2 0 - 2 /HPF KU [...] MAIN LAB Specimen Urine Performing Organization Address [facility] Phone Number [facility] [address] [phone] * URINALYSIS DIPSTICK REFLEX TO CULTURE (10/12/2018 10:40 PM REFRIGERATION MANAGER) Color,UA YELLOW [facility] Turbidity,UA CLEAR CLEAR-CLEAR [facility] Specific Cisco-Urine 1.009 1.003 - 1.035 [facility] [...] MAIN LAB Specimen Urine Performing Organization Address City/[facility] Phone Number [facility] [address] [place] [address] * CT LOWER EXTREM WO CONT LEFT (10/12/2018 9:54 PM REFRIGERATION MANAGER) Impressions Performed At 1.Comminuted fracture of the [...] Interface, Radiant Results - 10/12/2018 10:[address] LOWER EXTREM WO CONT LEFT Clinical [...] PM. Performing Organization Address City/State/Zipcode Phone Number [facility] RAD RESULTS * POC GLUCOSE (10/12/2018 9:07 PM REFRIGERATION MANAGER) Glucose, POC 259 (H) 70 - 100 MG/DL [facility] Performing Organization Address City/State/Zipcode Phone Number [facility] MAIN [facility] [address] [place] [address] * TIBIA & FIBULA 2 VIEWS LEFT (10/12/2018 8:30 PM REFRIGERATION MANAGER) Impressions Performed At Findings/impression: [facility] RESULTS [...] Interface, Radiant Results - 10/13/2018 9:18 AM REFRIGERATION MANAGER TIBIA & FIBULA 2 VIEWS LEFT CLINICAL [...] FIBULA 2 VIEWS LEFT (10/12/2018 6:44 PM REFRIGERATION MANAGER) Impressions Performed At Findings/impression: [facility] RAD RESULTS [...] Interface, Radiant Results - 10/13/2018 10:44 AM REFRIGERATION MANAGER TIBIA & FIBULA 2 VIEWS LEFT CLINICAL [...] RAD RESULTS * ECG-SCAN (10/12/2018 5:30 PM REFRIGERATION MANAGER) Narrative Performed At Ordered by an unspecified provider. * KNEE 1 OR 2 VIEWS BILATERAL (10/12/2018 5:30 PM REFRIGERATION MANAGER) Impressions Performed At 1.No acute osseous abnormality [...] No acute fracture is visualized in the [id number]. Vascular calcifications are present. No radiopaque foreign body. No joint effusion is identified. Procedure Note Interface, Radiant Results - 10/13/2018 9:18 AM REFRIGERATION MANAGER KNEE 1 OR 2 VIEWS BILATERAL CLINICAL [...] on 10/13/2018 7:14 AM. Performing Organization Address City/State/[facility] Phone Number [facility] * FOOT 2 VIEW BILATERAL (10/12/2018 5:30 PM REFRIGERATION MANAGER) Impressions Performed At 1.Acute nondisplaced fracture of [...] Interface, Radiant Results - 10/13/2018 9:18 AM REFRIGERATION MANAGER FOOT 2 VIEW BILATERAL CLINICAL HISTORY: Female, [...] FIBULA 2 VIEW BILAT (10/12/2018 5:30 PM REFRIGERATION MANAGER) Impressions Performed At 1.Comminuted and displaced fracture [...] Interface, Radiant Results - 10/13/2018 9:18 AM REFRIGERATION MANAGER TIBIA & FIBULA 2 VIEW BILAT CLINICAL [...] MIN 3 VIEWS BILATERAL (10/12/2018 5:30 PM REFRIGERATION MANAGER) Impressions Performed At 1.Comminuted and displaced fracture [...] Interface, Radiant Results - 10/13/2018 9:18 AM REFRIGERATION MANAGER ANKLE MIN 3 VIEWS BILATERAL CLINICAL HISTORY: [...] opinions expressed in this report Finalized by Kinsg Flores M.D. on 10/13/2018 9:15 AM. Dictated by Paul Trejo M.D. on 10/13/2018 7:01 AM. Performing Organization Address City/State/Zipcode Phone Number [facility] RESULTS * PROCEDURAL SEDATION (10/12/2018 4:29 PM REFRIGERATION MANAGER) Narrative Performed At Jeet Tran MD 10/13/20189:39 AM Procedural Sedation Date/Time: 10/12/2018 9:35 AM Performed by: ABBY FRANKEL Authorized by: ABBY FRANKEL Consent: Verbal consent obtained. Written consent obtained. [...] to verify the correct patient, procedure, equipment, data support analyst and site/side marked as required. Indications: fracture [...] see nursing log for details. The total [id number] time was 35 minutes. * COMPREHENSIVE METABOLIC PANEL (10/12/2018 3:30 PM REFRIGERATION MANAGER) Sodium 137 137 - 147 MMOL/L [facility] [...] City/State/Zipcode Phone Number [facility] [address] [place] [address] * CBC AND DIFF (10/12/2018 3:30 PM REFRIGERATION MANAGER) White Blood Cells 17.1 (H) 4.5 - [...] Eosinophil Count 0.10 0 - 0.45 [facility] Absolute Basophil Count 0.10 0 - 0.20 [facility] Specimen Blood Performing Organization Address City/State/Zipcode Phone Number [facility] [address] [place] [address] in this encounter Visit Diagnoses Diagnosis Closed fracture of left tibia and fibula, initial encounter in this encounter Admitting Diagnoses Diagnosis Tibia/fibula fracture Closed fracture of unspecified part of fibula with tibia in this encounter Administered Medications Action Date Dose Rate Site Medication Order MAR Action 10/18/2018 10:43 AM REFRIGERATION MANAGER 650 mg acetaminophen (TYLENOL) tablet 650 mg Given 650 mg, Oral, EVERY 6 HOURS, First dose on Sun10/15/18 at 1630, Until Discontinued, TOTAL ACETAMINOPHEN DOSE NOT TO EXCEED 4GM DAILY, 650 mg Given 10/18/2018 4:06 AM REFRIGERATION MANAGER 650 mg Given 10/17/2018 9:32 PM REFRIGERATION MANAGER 10/18/2018 12:52 PM REFRIGERATION MANAGER 30 mL acetaminophen/lidocaine/antacid DS(#) Given (GI COCKTAIL) 1:1:3 suspension 30 mL 30 mL, Oral, FOUR TIMES DAILY PRN, Starting 10/12/18 at 2105, Until Sun10/18/18 at 1756, Indigestion/Heartburn, 30mL (1:1:3)=192mg/6mL acetamin-6mL 2% vis lidocaine-18mL Antacid DS, 30 mL Given 10/16/2018 12:16 PM REFRIGERATION MANAGER 30 mL Given 10/15/2018 5:23 PM REFRIGERATION MANAGER 10/18/2018 2:13 PM REFRIGERATION MANAGER 1 mg ALPRAZolam (XANAX) tablet 1 mg Given 1 mg, Oral, TWICE DAILY PRN, Starting 10/12/18 at 2105, Until Sun10/18/18 at 1756, Anxiety PO, Hold for sedation, 1 mg Given 10/17/2018 8:57 PM REFRIGERATION MANAGER 1 mg Given 10/16/2018 9:31 PM REFRIGERATION MANAGER 10/18/2018 10:43 AM REFRIGERATION MANAGER 325 mg aspirin tablet 325 mg Given 325 mg, Oral, DAILY, First dose on Sun10/16/18 at 0900, Until Discontinued 325 mg Given 10/17/2018 9:56 AM REFRIGERATION MANAGER 325 mg Given 10/16/2018 12:09 PM REFRIGERATION MANAGER 10/18/2018 10:42 AM REFRIGERATION MANAGER 40 mg atorvastatin (LIPITOR) tablet 40 mg Given 40 mg, Oral, DAILY, First dose on 10/13/18 at 0900, Until Discontinued 40 mg Given 10/17/2018 9:56 AM REFRIGERATION MANAGER 40 mg Given 10/16/2018 12:10 PM REFRIGERATION MANAGER 10/18/2018 10:42 AM REFRIGERATION MANAGER 400 mg carBAMazepine (TEGRETOL) tablet 400 mg Given 400 mg, Oral, DAILY, First dose on 10/13/18 at 0900, Until Discontinued 400 mg Given 10/17/2018 9:58 AM REFRIGERATION MANAGER 400 mg Given 10/16/2018 12:10 PM REFRIGERATION MANAGER 10/18/2018 10:43 AM REFRIGERATION MANAGER 10 mg cetirizine (ZYRTEC) tablet 10 mg Given 10 mg, Oral, EVERY MORNING, First dose on 10/13/18 at 0800, Until Discontinued 10 mg Given 10/17/2018 9:58 AM REFRIGERATION MANAGER 10 mg Given 10/15/2018 10:28 AM REFRIGERATION MANAGER 10/18/2018 10:43 AM REFRIGERATION MANAGER 5,000 Units cholecalciferol (VITAMIN D-3) tablet Given 5,000 Units 5,000 Units, Oral, DAILY, First dose on 10/13/18 at 0900, Until Discontinued 5,000 Units Given 10/17/2018 9:54 AM REFRIGERATION MANAGER 5,000 Units Given 10/15/2018 10:25 AM REFRIGERATION MANAGER 10/18/2018 12:52 PM REFRIGERATION MANAGER 10 mg dicyclomine (BENTYL) capsule 10 mg Given 10 mg, Oral, BEFORE MEALS AND AT BEDTIME, First dose on 10/12/18 at 2115, Until Discontinued 10 mg Given 10/18/2018 6:24 AM REFRIGERATION MANAGER 10 mg Given 10/17/2018 8:57 PM REFRIGERATION MANAGER 10/18/2018 10:38 AM REFRIGERATION MANAGER [address] (CYMBALTA) capsule 90 mg Given 90 mg, Oral, DAILY, First dose on 10/13/18 at 0900, Until Discontinued 90 mg Given 10/17/2018 9:57 AM REFRIGERATION MANAGER 90 mg Given 10/16/2018 12:11 PM REFRIGERATION MANAGER 10/18/2018 10:43 AM REFRIGERATION MANAGER 324 mg ferrous gluconate tablet 324 mg Given 324 mg, Oral, DAILY WITH BREAKFAST, First dose on 10/13/18 at 0800, Until Discontinued, Each 324mg ferrous gluconate delivers 37.5mg elemental iron., 324 mg Given 10/17/2018 9:54 AM REFRIGERATION MANAGER 324 mg Given 10/16/2018 12:11 PM REFRIGERATION MANAGER 10/18/2018 10:40 AM REFRIGERATION MANAGER 0.3 mg fludrocortisone (FLORINEF) tablet 0.3 mg Given 0.3 mg, Oral, DAILY, First dose on 10/13/18 at 0900, Until Discontinued 0.3 mg Given 10/17/2018 9:58 AM REFRIGERATION MANAGER 0.3 mg Given 10/15/2018 10:26 AM REFRIGERATION MANAGER hydrALAZINE (APRESOLINE) injection 10 mg 10 mg, Intravenous, EVERY 6 HOURS PRN, Starting 10/12/18 at 2227, Until Sun10/18/18 at 1756, Systolic Blood Pressure..., Diastolic Blood Pressure..., For SBP greater than 160 or DBP greater than 100 10/18/2018 10:40 AM REFRIGERATION MANAGER 200 mg hydroxychloroquine (PLAQUENIL) tablet Given 200 mg 200 mg, Oral, DAILY, First dose on 10/13/18 at 0900, Until Discontinued 200 mg Given 10/17/2018 9:57 AM REFRIGERATION MANAGER 200 mg Given 10/16/2018 12:11 PM REFRIGERATION MANAGER 10/18/2018 12:55 PM REFRIGERATION MANAGER 1 Units Arm, Right insulin aspart U-100 (NOVOLOG FLEXPEN) Given injection PEN 0-7 Units 0-7 Units, Subcutaneous, BEFORE MEALS AND AT BEDTIME, First dose on Varsha 10/17/18 at 0900, Until Discontinued, -POC glucose 140-180mg/dL at administer 1 unit insulin, at , 03* administer 0 units. -POC glucose 181-220mg/dL at administer 2 units insulin, at , 03* administer 1 unit. -POC glucose 221-260mg/dL at administer 3 units insulin, at , 03* administer 2 units. -POC glucose 261-300mg/dL at administer 4 units insulin, at , 03* administer 3 units. -POC glucose 301-350mg/dL at administer 5 units insulin, at , 03* administer 4 units. -POC glucose 351-400mg/dL at administer 6 units insulin, at , 03* administer 5 units. -POC glucose >400mg/dL at administer 7 units insulin, at 21, 03* [...] Units Arm, Left Given 10/17/2018 9:33 PM REFRIGERATION MANAGER 1 Units Arm, Right Given 10/17/2018 6:05 PM REFRIGERATION MANAGER 10/18/2018 12:55 PM REFRIGERATION MANAGER 5 Units Arm, Right insulin aspart U-100 [...] Units Arm, Left Given 10/18/2018 10:45 AM REFRIGERATION MANAGER 5 Units Arm, Right Given 10/17/2018 6:05 PM REFRIGERATION MANAGER 10/17/2018 9:32 PM REFRIGERATION MANAGER 14 Units Abdominal Tissue insulin glargine (LANTUS [...] DO NOT uncheck "Do not dispense", 10/18/2018 6:24 AM REFRIGERATION MANAGER 175 mcg levothyroxine (SYNTHROID) tablet 175 mcg Given 175 mcg, Oral, DAILY 30MIN BEFORE BREAKFAST, First dose on 10/13/18 at 0630, Until Discontinued, Give 1 hour before a meal. If patient is receiving tube feedings, hold tube feed 1hr before and 1hr after dose., 175 mcg Given 10/17/2018 6:32 AM REFRIGERATION MANAGER 175 mcg Given 10/16/2018 6:42 AM REFRIGERATION MANAGER 10/17/2018 8:57 PM REFRIGERATION MANAGER 10 mg montelukast (SINGULAIR) tablet 10 mg Given 10 mg, Oral, AT BEDTIME DAILY, First dose on 10/12/18 at 2115, Until Discontinued 10 mg Given 10/16/2018 8:02 PM REFRIGERATION MANAGER 10 mg Given 10/15/2018 8:18 PM REFRIGERATION MANAGER 10/18/2018 2:20 PM REFRIGERATION MANAGER 15 mg morphine (MSIR) oral solution 7.5-15 mg Given 7.5-15 mg, Oral, EVERY 4 HOURS PRN, Starting Sun10/16/18 at 2057, Until Sun10/18/18 at 1756, Pain PO 15 mg Given 10/18/2018 10:46 AM REFRIGERATION MANAGER 15 mg Given 10/18/2018 4:06 AM REFRIGERATION MANAGER 10/16/2018 8:33 AM REFRIGERATION MANAGER 4 mg ondansetron (ZOFRAN) injection 4 mg Given 4 mg, Intravenous, EVERY 4 HOURS PRN, Starting Sun10/15/18 at 0730, Until Sun10/18/18 at 1756, Nausea/Vomiting Injectable 4 mg Given 10/15/2018 5:24 PM REFRIGERATION MANAGER 4 mg Given 10/15/2018 11:52 AM REFRIGERATION MANAGER 10/18/2018 10:43 AM REFRIGERATION MANAGER [address] (PROTONIX) tablet 40 mg Given 40 mg, Oral, DAILY, First dose on 10/13/18 at 0900, Until Discontinued, Do not crush or chew tablet., 40 mg Given 10/17/2018 9:57 AM REFRIGERATION MANAGER 40 mg Given 10/16/2018 12:10 PM REFRIGERATION MANAGER 10/18/2018 10:43 AM REFRIGERATION MANAGER 100 mg pentosan polysulfate sodium (ELMIRON) Given capsule 100 mg 100 mg, Oral, THREE TIMES DAILY BEFORE MEALS, First dose on 10/13/18 at 0700, Until Discontinued 100 mg Given 10/18/2018 6:24 AM REFRIGERATION MANAGER 100 mg Given 10/17/2018 4:28 PM REFRIGERATION MANAGER 10/18/2018 10:42 AM REFRIGERATION MANAGER 150 mg pregabalin (LYRICA) capsule 150 mg Given 150 mg, Oral, TWICE DAILY, First dose on 10/12/18 at 2115, Until Discontinued 150 mg Given 10/17/2018 8:57 PM REFRIGERATION MANAGER 150 mg Given 10/17/2018 9:58 AM REFRIGERATION MANAGER 10/15/2018 2:08 PM REFRIGERATION MANAGER 10 mg prochlorperazine maleate (COMPAZINE) Given tablet 10 mg 10 mg, Oral, EVERY 6 HOURS PRN, Starting 10/14/18 at 0633, Until Sun10/18/18 at 1756, Nausea/Vomiting PO 10 mg Given 10/15/2018 7:57 AM REFRIGERATION MANAGER 10/18/2018 10:42 AM REFRIGERATION MANAGER 50 mg pyridoxine (VITAMIN B-6) tablet 50 mg Given 50 mg, Oral, DAILY, First dose on 10/13/18 at 0900, Until Discontinued 50 mg Given 10/17/2018 9:54 AM REFRIGERATION MANAGER 50 mg Given 10/15/2018 10:27 AM REFRIGERATION MANAGER 10/18/2018 10:49 AM REFRIGERATION MANAGER 1 patch Ear, Behind scopolamine (TRANSDERM-SCOP) patch 1 Patch/Topica patch l Applied 1 patch, Transdermal, Administer over 72 Hours, EVERY 72 HOURS, First dose on Sun10/15/18 at 0945, Until Discontinued 1 patch Ear, Behind Patch/Topical Applied 10/15/2018 8:46 AM REFRIGERATION MANAGER 10/18/2018 10:51 AM REFRIGERATION MANAGER 1 g SUCRALFATE 1gm/10ml (Patients own Given medication) 1 g, Oral, BEFORE MEALS AND AT BEDTIME, First dose on 10/13/18 at 0700, Until Discontinued, Patients own medication, 1 g Given 10/18/2018 6:25 AM REFRIGERATION MANAGER 1 g Given 10/17/2018 8:58 PM REFRIGERATION MANAGER 10/16/2018 3:37 AM REFRIGERATION MANAGER 4 mg tiZANidine (ZANAFLEX) tablet 4 mg Given 4 mg, Oral, EVERY 6 HOURS PRN, Starting 10/12/18 at 2105, Until Sun10/18/18 at 1756, Muscle Cramps 4 mg Given 10/15/2018 2:53 PM REFRIGERATION MANAGER 4 mg Given 10/14/2018 4:26 PM REFRIGERATION MANAGER 10/18/2018 10:45 AM REFRIGERATION MANAGER 1 tablet vitamins, B complex tablet 1 tablet Given 1 tablet, Oral, DAILY, First dose on 10/13/18 at 0900, Until Discontinued 1 tablet Given 10/17/2018 9:53 AM REFRIGERATION MANAGER 1 tablet Given 10/15/2018 10:28 AM REFRIGERATION MANAGER 10/18/2018 10:42 AM REFRIGERATION MANAGER 1 tablet vitamins, multiple tablet 1 tablet Given 1 tablet, Oral, DAILY, First dose on 10/13/18 at 0900, Until Discontinued 1 tablet Given 10/17/2018 9:54 AM REFRIGERATION MANAGER 1 tablet Given 10/15/2018 10:26 AM REFRIGERATION MANAGER 10/17/2018 8:57 PM REFRIGERATION MANAGER 5 mg zolpidem (AMBIEN) tablet 5 mg Given 5 mg, Oral, AT BEDTIME PRN, Starting 10/13/18 at 0848, Until Sun10/18/18 at 1756, Insomnia 5 mg Given 10/16/2018 9:31 PM REFRIGERATION MANAGER 5 mg Given 10/15/2018 9:25 PM REFRIGERATION MANAGER in this encounter
--- OUTSIDE RECORDS SUMMARY | 2018-12-27 17:58 | XMS REPORT | Encounter Summary ---
Author Author [facility] Organization [facility] Address Unknown Phone Unavailable Care Team Providers Care Hvac Installation Technician Name Role Phone Charles Chau MD Unavailable Migue Patton MD PCP Reason for Visit * Auth/Cert Referred By Contact Referred To Contact Status Reason Specialty Diagnoses / Procedures Diagnoses Hypotension Diarrhea CLL (chronic lymphocytic leukemia) ([facility]) Encounter Details Care Team Description Date Type Department Yohan Romano MD [address] [place] [address] 10/14/2018 Anesthesia Main Operating Room Event [facility] [address], [place] [id number] Anesthesia Record Responsible Anesthesiologist Anesthesia Start Time Anesthesia Stop Time Procedure Name Vinicio Melendez MD 10/14/18 0813 10/14/18 1015 OPEN TREATMENT TIBIAL SHAFT FRACTURE IM NAIL (Left Leg Lower) Date Time Event Comment 714 0745 AN Equip Check 0813 Out of Pre Procedure 0813 Anes Start 0815 In Room 0822 An Start Data 0824 An Induction The patient was reevaluated immediately before moderate or deep sedation use and before anesthesia induction. 0825 An Intubation 0827 Anesthesia Ready 0829 Antibiotic Given 0844 Proc Start 0916 an pollo now POC glucose is 273 1004 an pollo now Procedure completed 1008 An Extubation 1009 an stop data 1013 Handoff to RN I completed my SBAR handoff to the receiving nurse. 1015 An Stop Meds Name Total midazolam (VERSED) 1 mg/mL injection 2 mg fentaNYL PF (SUBLIMAZE) injection 100 mcg lidocaine (2%) 200 mg/10mL Injection 60 mg syringe propofol (DIPRIVAN) 200 mg/ 20 mL 120 mg injection (VIAL) succinylcholine (ANECTINE) injection 100 mg (VIAL) dexamethasone (DECADRON) 4 mg/mL 4 mg injection phenylephrine (DIONNE-SYNEPHRINE) 0.1 mg/mL 500 mcg injection (SYRINGE) dextran 70/hypromellose (GENTEAL TEARS; 2 drop BION TEARS) ophthalmic solution ceFAZolin (ANCEF) injection 2 g ketamine (KETALAR) 10 mg/mL injection 30 mg haloperidol (HALDOL) injection 1 mg famotidine (PEPCID) injection 20 mg insulin regular 100 units/ NS 100 mL (1 5 Units unit/mL) injection (IV Bolus) ondansetron (ZOFRAN) injection 4 mg 4 mg ketorolac (TORADOL) 30 mg injection IV 15 mg lactated ringers infusion 500 mL * Name O2 N2O Inspired N2O Sevoflurane Inspired Sevoflurane * No blood administrations on file. Removal Type Details Placement Wounds 09/24/18; 823; Left; Axilla; Puncture 09/24/18 08 by Mary, (NOT for Wound; s/p lymph node bx SHAVON Echeverria Pressure Injuries) Wounds 10/14/18; 0858; Leg; Surgical Incision; 10/14/18 0858 by Erlinda, (NOT for SUTURE, DERMABOND, 4X4, TEGADERM, SOFT Gayle RN Pressure ROLL, TEDDY Injuries) 10/18/18 1428 by Maylin Castle Portacath 07/24/18; 1807; Hand Hygiene; 07/24/18 1807 by Florin Verdeadine (CHG); Other (Comment) SHAVON Bowen (port); Emergent-Blood Return; 10/18/18 (Port deaccessed and packed with 5 mL of heparin); 1428; Y 10/14/18 1008 by Ara Mane CRNA ETT 10/14/18; 0825; Ventilated by mask (1); 10/14/18 0825 by Direct laryngoscopy, Stylet; Ara Mane CRNA Single-Lumen, Cuffed; 7mm; Mac; 3; 1-Full view of the glottis; 1 insertion attempt; Auscultation, ETCO2 Detector; 21 centimeters; atraaumatic, no change in dentition; 10/14/18; 1008 in this encounter Social History Date Tobacco Use Types Packs/Day [...] Status Date of Assessment Functional Status Response 10/12/2018 Does the patient have a hearing impairment: No 07/22/2018 Does the patient have a visual impairment: No 07/22/2018 Does the patient have impaired ambulation: No 07/22/2018 Does the patient have an activity of daily living No (ADL) impairment: 07/22/2018 Does the patient have an instrumental activity of No daily living (IADL) impairment: Date of Assessment Cognitive Status Response 07/22/2018 Does the patient have a cognitive impairment: No as of this encounter Plan of Treatment Care Team Description Date Type Specialty Gunnar Kirk MD [address] [place] [address] [phone] Delayed gastric emptying 02/03/2019 Hospital Encounter Gunnar Kirk MD [address] [place] [address] [phone] ESOPHAGOGASTRODUODENOSCOPY WITH SPECIMEN COLLECTION BY BRUSHING/ WASHING 02/03/2019 Surgery as of this encounter Visit Diagnoses Not on filein this encounter Administered Medications Action Date Dose Rate Site Medication Order MAR Action 10/14/2018 8:29 AM INTRAMURAL DIRECTOR 2 g ceFAZolin (ANCEF) injection Given INTRA-PROCEDURE MED, Starting Sun10/14/18 at 0829, Until Sun10/14/18 at 1016, Anesthesia Intra-op 10/14/2018 8:37 AM INTRAMURAL DIRECTOR 4 mg dexamethasone (DECADRON) injection Given Intravenous, INTRA-PROCEDURE MED, Starting Sun10/14/18 at 0837, Until Sun10/14/18 at 1016, Nausea/Vomiting Injectable, Anesthesia Intra-op 10/14/2018 8:26 AM INTRAMURAL DIRECTOR 2 drops dextran 70/hypromellose (GENTEAL TEARS; Given BION TEARS) ophthalmic solution INTRA-PROCEDURE MED, Starting Sun10/14/18 at 0826, Until Sun10/14/18 at 1016, Dry Eyes, Anesthesia Intra-op 10/14/2018 8:20 AM INTRAMURAL DIRECTOR 20 mg famotidine (PEPCID) injection Given INTRA-PROCEDURE MED, Starting Sun10/14/18 at 0820, Until Sun10/14/18 at 1016, Indigestion/Heartburn, Anesthesia Intra-op 10/14/2018 10:14 AM INTRAMURAL DIRECTOR 25 mcg fentaNYL citrate PF (SUBLIMAZE) Given injection INTRA-PROCEDURE MED, Starting Sun10/14/18 at 0824, Until Sun10/14/18 at 1016, Pain Injectable, Anesthesia Intra-op 75 mcg Given 10/14/2018 8:24 AM INTRAMURAL DIRECTOR 10/14/2018 8:52 AM INTRAMURAL DIRECTOR 1 mg haloperidol (HALDOL) injection Given INTRA-PROCEDURE MED, Starting Sun10/14/18 at 0852, Until Sun10/14/18 at 1016, Agitation Injectable, Anesthesia Intra-op 10/14/2018 9:25 AM INTRAMURAL DIRECTOR 5 Units insulin regular 100 units / NS 100 mL (1 Given unit/ 1 mL) injection INTRA-PROCEDURE MED, Starting Sun10/14/18 at 0925, Until Sun10/14/18 at 1016, Anesthesia Intra-op 10/14/2018 8:49 AM INTRAMURAL DIRECTOR 30 mg ketamine (KETALAR) injection Given INTRA-PROCEDURE MED, Starting Sun10/14/18 at 0849, Until Sun10/14/18 at 1016, Anesthesia Intra-op 10/14/2018 9:56 AM INTRAMURAL DIRECTOR 15 mg ketorolac (TORADOL) injection Given INTRA-PROCEDURE MED, Starting Sun10/14/18 at 0956, Until Sun10/14/18 at 1016, Pain non-opioid: may be used alone or in combination with opioid analgesia, Anesthesia Intra-op 10/14/2018 8:15 AM INTRAMURAL DIRECTOR lactated ringers infusion Given - New 1,000 mL, 1,000 mL, Intravenous, at 20 Bag mL/hr, CONTINUOUS, Starting Sun10/14/18 at 0615, Until Sun10/16/18 at 0614, Pre-Op 10/14/2018 8:24 AM INTRAMURAL DIRECTOR 60 mg lidocaine (PF) injection Given INTRA-PROCEDURE MED, Starting Sun10/14/18 at 0824, Until Sun10/14/18 at 1016, Anesthesia Intra-op 10/14/2018 8:15 AM INTRAMURAL DIRECTOR 2 mg midazolam (VERSED) injection Given Intravenous, INTRA-PROCEDURE MED, Starting Sun10/14/18 at 0815, Until Sun10/14/18 at 1016, Agitation Injectable, Anxiety Injectable, Anesthesia Intra-op 10/15/2018 5:59 AM INTRAMURAL DIRECTOR 4 mg ondansetron (ZOFRAN) injection 4 mg Given 4 mg, Intravenous, EVERY 6 HOURS PRN, Starting 10/12/18 at 2105, Until 10/15/18 at 0729, Nausea/Vomiting Injectable 4 mg Given 10/14/2018 9:40 AM INTRAMURAL DIRECTOR 4 mg Given 10/14/2018 3:23 AM INTRAMURAL DIRECTOR 10/14/2018 9:45 AM INTRAMURAL DIRECTOR 100 mcg phenylephrine in NS injection syringe Given Intravenous, INTRA-PROCEDURE MED, Starting Sun10/14/18 at 0835, Until Sun10/14/18 at 1016, Symptomatic Hypotension, Anesthesia Intra-op 100 mcg Given 10/14/2018 9:32 AM INTRAMURAL DIRECTOR 100 mcg Given 10/14/2018 8:50 AM INTRAMURAL DIRECTOR 10/14/2018 8:24 AM INTRAMURAL DIRECTOR 120 mg propofol (DIPRIVAN) injection Given INTRA-PROCEDURE MED, Starting Sun10/14/18 at 0824, Until Sun10/14/18 at 1016, Anesthesia Intra-op 10/14/2018 8:24 AM INTRAMURAL DIRECTOR 100 mg succinylcholine (ANECTINE) injection Given Intravenous, INTRA-PROCEDURE MED, Starting Sun10/14/18 at 0824, Until Sun10/14/18 at 1016, Anesthesia Intra-op in this encounter
--- OUTSIDE RECORDS SUMMARY | 2018-12-27 18:00 | XMS REPORT | Encounter Summary ---
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 Role Phone Charles Chau MD Unavailable Migue Patton MD PCP Reason for Visit * Reason Comments Diarrhea x3 wks, recent dx of CLL * Auth/Cert Referred By Contact Referred To Contact Status Reason Specialty Diagnoses / Procedures Diagnoses Hypotension Diarrhea CLL (chronic lymphocytic leukemia) (HCC) Encounter Details Care Team Description Date Type Department Yamil Escalante MD [address] [facility] [place] [address] [place] [address] [phone] Tejas Tejada MD [address] [place] [address] [phone] Bebeto Hartmann MD [address] [place] [address] [phone] CLL (chronic lymphocytic leukemia) (HCC) 10/09/2018 [facility] - Encounter [id number] [facility] 10/12/2018 [place] [address] Social History Date Tobacco Use Types Packs/Day [...] Vital Signs Time Taken Vital Sign Reading 10/12/2018 9:27 AM NODULIZER Blood Pressure 154/75 10/12/2018 9:27 AM NODULIZER Pulse 86 10/12/2018 9:27 AM NODULIZER Temperature 36.6 C (97.8 F) - Respiratory Rate - 10/12/2018 9:27 AM NODULIZER Oxygen Saturation 98% - Inhaled Oxygen - Concentration 10/11/2018 5:56 AM NODULIZER Weight 62.5 kg (137 lb 12.8 oz) 10/09/2018 4:49 PM NODULIZER Height 167.6 cm (5' 5.98") 10/11/2018 5:56 AM NODULIZER Body Mass Index 22.25 in this encounter Functional Status Date of Assessment Functional Status Response 10/09/2018 Does the patient have a hearing impairment: [...] as of this encounter Discharge Summaries * Bebeto Hartmann MD - 10/12/2018 10:13 AM NODULIZER Physician Discharge Summary Name: Chelsea Castillo Date Of : 1960 Age: 58 years Admit date: 10/09/2018 Discharge date: 10/12/2018 Attending Physician: Bbeeto Hartmann MD Service: [place] [address] Physician Summary completed by: Bebeto Hartmann MD Reason for hospitalization: Pain abdomen and diarrhea Significant PMH: Past Medical History: Diagnosis Date Arthritis Diabetes mellitus type 1 (HCC) Osteoporosis Stomach problems Thyroid disorder Allergies: Sulfa (sulfonamide antibiotics) Admission Physical Exam notable for: General Appearance: Cooperative, NAD Head: NC/AT Neck: no JVD; no LAD Eyes: Conjunctivae/corneas clear. PERRL, EOMs intact. Lungs: CTAB Heart: RRR, no m/r/g Abdomen: Soft, NT, +BS Extremities: Atraumatic, no C/C/E Pulses: +2 in all extremities Neurologic: A, OX3, CNII - XII grossly intact; no gross focal deficits Admission Lab/Radiology studies notable for: LABS: Recent Labs 10/09/18 1057 NA 138 K 4.0 CL 104 CO2 29 GAP 5 BUN 17 CR 0.92 GLU 139* CA 8.4* ALBUMIN 3.2* Recent Labs 10/09/18 1057 WBC 6.6 HGB 10.5* HCT 31.7* PLTCT 186 AST 21 ALT 22 ALKPHOS 82 Brief Hospital Course: The patient was admitted and the following issues were addressed during this hospitalization: (with pertinent details). Diarrhea -noninfectious most likely functional: Improving - Watery diarrhea since last discharge from . Diarrhea improving now. - Colonosocpy during previous admission was normal except for tubular adenoma - Associated with worsening lightheadedness/fatigue - In the ED she was positive orthostatic down to 84/58 when sitting on the edge of the bed. Orthostatics improved. -Possible gi dysmotility due to poorly controlled diabetes with enteropathy and on polypharmacy. - GI consult, recommendation noted -stool studies: Fecal leukocyte is negative, C. difficile negative, cryptosporidium negative -Started on PO Vancomycin empirically on admission, but discontinued -She has unchanged chronic abdominal pain but no F/C/Hematochezia - lipase: normal, SPEP: Pending, CTA abdomen and pelvis: No acute process -Continue Imodium prn, prescription given Polypharmacy -Patient was counseled regarding polypharmacy. -Discontinue her Ativan Adderall and hydrocodone on discharge Orthostatic hypotension-improved - She has history of orthotsatic hypotension, on Florinef 0.3 mg QD -Off IV fluids, tolerating p.o. - Continue Florinef Gastroparesis -Get (09/23/2018)-Delayed gastric emptying times. -Received 3 doses of IV Reglan. Will avoid Reglan due to tardive dyskinesia. -Patient denies any nausea, vomiting Chronic abdominal pain: Improving - [place] possibley due to anxiety - EGD during last admission with erythematous mucosa, path with "chemical gastritis, negative for NHL/Hpylori) - It was through that her abdominal pain was likely functional due to anxiety -Discontinue MEDICAL STAFF SERVICES MANAGER Hydrocodone. Patient was counseled to avoid narcotics due to impaired gastric motility and worsening of her pain abdomen. -urine studies: Negative and urine drug screen: Positive for amphetamines and benzodiazepines (he is on Adderall and Xanax). She reports taking hydrocodone twice daily and her last dose was the day prior to admission, however her urine drug screen was negative for opiates -Pain control with Tylenol, Bentyl and heating pad Anxiety/depression -Follows with psychiatry as outpatient -Continue MEDICAL STAFF SERVICES MANAGER Xanax and decreased Cymbalta 90 daily (reports taking 60 twice daily at home) -Also discontinued Adderall -Consult psychiatry, recommendation is noted Chronic anemia -Hemoglobin stable -Iron studies from 09/26/2018 show iron deficiency. B12 folate normal on 2017. -Status post IV iron x2 -Continue MEDICAL STAFF SERVICES MANAGER iron orally Dispo -Patient clinically improved. She is tolerating diet. Is comfortable going home. Instructions and prescriptions given. Discharged home in stable state. Condition at Discharge: Stable Discharge Diagnoses: Noninfectious diarrhea with dehydration Hospital Problems Active Problems CLL (chronic lymphocytic leukemia) (HCC) Diarrhea Hypotension Surgical Procedures: None Significant Diagnostic Studies and Procedures: noted in brief hospital course Consults: GI and Psychiatry Patient Disposition: Home Patient instructions/medications: Other Diet 6 Small portion meals If you have questions about your diet after you go home, you can call a dietitian at [phone]. Activity as Tolerated It is important to [...] persistent nausea and/ or vomiting, difficulty breathing, headache, unable to urinate, unable to have bowel movement or drainage with a foul odor Questions About Your Stay For questions or concerns regarding your hospital stay. Call [phone] Discharging attending physician: BEBETO HARTMANN [[id number]] Additional Discharge Instructions Please call your pcp and make follow up appointment in 1-2 weeks Current Discharge Medication List START taking these medications Details dicyclomine (BENTYL) 10 mg capsule Take one capsule by mouth before meals and at bedtime for 14 days. Qty: 56 capsule, Refills: 0 PRESCRIPTION TYPE: Normal CONTINUE these medications which have been CHANGED or REFILLED Details insulin degludec (TRESEBA SOLOSTAR) 100 unit/mL (3 mL) injection pen Inject 13 Units under the skin at bedtime daily. Qty: 15 mL, Refills: 0 PRESCRIPTION TYPE: Normal loperamide (IMODIUM A-D) 2 mg capsule Take one capsule by mouth four times daily as needed for Diarrhea. Take 1 capsules by mouth initially, followed by 1 capsule by mouth after each loose stool up to a maximum of 8 tablets in 24 hours. Qty: 15 capsule, Refills: 0 PRESCRIPTION TYPE: Normal polyethylene glycol 3350 (MIRALAX) 17 g packet Take one packet by mouth daily as needed. Qty: 30 each, Refills: 1 PRESCRIPTION TYPE: Normal CONTINUE these [...] daily as needed. PRESCRIPTION TYPE: Historical Med duloxetine DR (CYMBALTA) 30 mg capsule Take [...] with food. PRESCRIPTION TYPE: Historical Med insulin lispro(+) (HUMALOG KWIKPEN INSULIN) 100 unit/mL injection PEN Inject 8 units subcutaneously with breakfast and lunch, and dinner. Qty: 45 mL, Refills: 0 PRESCRIPTION TYPE: No Print levocarnitine(+) (LEVOCARNITINE(+)) 500 mg tablet Take four tablets by mouth twice daily. Qty: 240 tablet, Refills: 1 PRESCRIPTION TYPE: Normal levothyroxine (SYNTHROID) 175 mcg tablet Take 175 mcg by mouth daily 30 minutes before breakfast. PRESCRIPTION TYPE: Historical Med lidocaine/prilocaine (EMLA) 2.5/2.5 % topical cream Apply topically to affected area as Needed. PRESCRIPTION TYPE: Historical Med montelukast (SINGULAIR) 10 [...] your prior med list in our system dextroamphetamine-amphetamine (ADDERALL) 20 mg tablet HYDROcodone/acetaminophen(+) (NORCO) 10/325 mg tablet LORazepam (ATIVAN) 1 mg tablet Scheduled appointments: Nov 22, 2018 3:00 PM NODULIZER Return Patient with Gunnar Kirk MD [facility] (P Internal Medicine) [facility] [address] [facility] [id number] Jan 08, 2019 10:00 AM NODULIZER CLINICAL SUPPORT NEW with Shirley Lee RN [facility] - Internal Medicine (P Internal Medicine) [address] [facility] [phone] Jan 15, 2019 2:00 PM NODULIZER (Arrive by 1:45 PM) Lab with CC PHLEBOTOMY CHAIR [facility] Exam ([facility] Exam) [facility] [phone] Jan 15, 2019 3:00 PM NODULIZER (Arrive by 2:45 PM) Return Patient with Milena Bhatti MD [facility] Ex[facility] ([facility] Exam) [facility] [address] [facility] [phone] Pending items needing follow up: spep Signed: Bebeto Hartmann MD 10/12/2018 cc: Primary Care Physician: Migue Patton III Verified Referring physicians: Migue Patton III* Additional provider(s): LIZER in this encounter Medications at Time of [...] tablets by mouth every 6 hours. 10/18/2018 10/18/2018 aspirin 325 mg tablet Take one 90 tablet 3 tablet by mouth daily. Take with food. 10/18/2018 11/16/2018 aspirin 325 mg tablet Take [...] by mouth daily. Take with food. 10/18/2018 10/18/2018 insulin degludec (TRESEBA Inject 12 15 mL 0 SOLOSTAR) 100 unit/mL (3 Units under mL) injection pen the skin at bedtime daily. 10/18/2018 11/20/2018 insulin degludec (TRESEBA Inject 12 15 mL 0 SOLOSTAR) 100 unit/mL (3 Units under mL) injection pen the skin at bedtime daily. 10/12/2018 10/18/2018 insulin degludec (TRESEBA Inject 13 15 mL 0 SOLOSTAR) 100 unit/mL (3 Units under mL) injection pen the skin at bedtime daily. 10/18/2018 10/18/2018 insulin lispro(+) Inject 4 45 mL 0 (HUMALOG KWIKPEN INSULIN) units 100 unit/mL injection PEN subcutaneousl y with breakfast and lunch, and dinner. 10/18/2018 11/20/2018 insulin lispro(+) Inject 4 45 mL 0 (HUMALOG KWIKPEN INSULIN) units 100 unit/mL injection PEN subcutaneousl y with breakfast and lunch, and dinner. 09/27/2018 10/18/2018 insulin lispro(+) Inject 8 45 mL 0 (HUMALOG KWIKPEN INSULIN) units [...] capsule three times daily before meals. 10/18/2018 10/18/2018 polyethylene glycol 3350 Take one 12 each 0 (MIRALAX) 17 g packet packet by mouth daily. 10/18/2018 11/16/2018 polyethylene glycol 3350 Take one [...] as of this encounter Progress Notes * Gayatri Hunter RN - 10/12/2018 11:01 AM NODULIZER Pt discharged today via family transport. Discharge paperwork reviewed prior to D/C. Home medication regimen reviewed. Pt verbalized understanding. Home med Carafate sent home with pt. Pt free from questions at time of discharge. PIV removed and port heparin locked and deacessed. Pt wheeled off unit with all personal belongings. LIZER * Maryam Woods, OT - 10/12/2018 10:22 AM NODULIZER OCCUPATIONAL THERAPY NO TREATMENT/DISCHARGE NOTE The patient was not seen due to: pt denies OT needs. Reports independence with all ADLs and mobility and states she was just released to go home. Will sign off. Attempted to see patient 1 time(s) Therapist: Maryam Woods OT Date: 10/12/2018 LIZER * Bebeto Hartmann MD - 10/12/2018 10:13 AM NODULIZER General Progress Note Name: Chelsea Castillo Today's Date: 10/12/2018 Admission Date: 10/09/2018 LOS: 3 days Assessment/Plan: Active Problems: CLL (chronic lymphocytic leukemia) (HCC) Diarrhea Hypotension This is a 58 year old male with PMH of Type I DM, Diabetic neuropathy, recent diagnosis of SLL/CLL, Hypothyroidism, Orthostatic hypotension, Intractrable nausea/vomiting, cyclic vomiting syndrome, anxiety/depression, chronic abdominal pain, gastroparesis ?Epilepsy[on Tegretol] who presented to ED with diarrhea Diarrhea -noninfectious most likely functional: Improving - Watery diarrhea since last discharge from . Diarrhea improving now. - Colonosocpy during previous admission was normal except for tubular adenoma - Associated with worsening lightheadedness/fatigue - In the ED she was positive orthostatic down to 84/58 when sitting on the edge of the bed. Orthostatics improved. -Possible gi dysmotility due to poorly controlled diabetes with enteropathy and on polypharmacy. - GI consult, recommendation noted -stool studies: Fecal leukocyte is negative, C. difficile negative, cryptosporidium negative -Started on PO Vancomycin empirically on admission, but discontinued -She has unchanged chronic abdominal pain but no F/C/Hematochezia - lipase: normal, SPEP: Pending, CTA abdomen and pelvis: No acute process -Continue Imodium prn, prescription given Polypharmacy -Patient was counseled regarding polypharmacy. -Discontinue her Ativan Adderall and hydrocodone on discharge Orthostatic hypotension-improved - She has history of orthotsatic hypotension, on Florinef 0.3 mg QD -Off IV fluids, tolerating p.o. - Continue Florinef Gastroparesis -Get (09/23/2018)-Delayed gastric emptying times. -Received 3 doses of IV Reglan. Will avoid Reglan due to tardive dyskinesia. -Patient denies any nausea, vomiting Chronic abdominal pain: Improving - [place] possibley due to anxiety - EGD during last admission with erythematous mucosa, path with "chemical gastritis, negative for NHL/Hpylori) - It was through that her abdominal pain was likely functional due to anxiety -Discontinue MEDICAL STAFF SERVICES MANAGER Hydrocodone. Patient was counseled to avoid narcotics due to impaired gastric motility and worsening of her pain abdomen. -urine studies: Negative and urine drug screen: Positive for amphetamines and benzodiazepines (he is on Adderall and Xanax). She reports taking hydrocodone twice daily and her last dose was the day prior to admission, however her urine drug screen was negative for opiates -Pain control with Tylenol, Bentyl and heating pad CVC Chronic nausea/vomiting Hx of dysphagia - No active Sx on this admission -Monitor Type 1 diabetes, uncontrolled, with neuropathy -Hypoglycemia resolved -Decrease Lantus 13 units , continue NovoLog 8 units 3 times daily with meals and low-dose correction factor TBI - Patient becomes anxious with complex discussions/medical jargon CLL/SLL - Diagnosed on LN biopsy during last admission - Follow up with heme/onc outpatient Anxiety/depression -Follows with psychiatry as outpatient -Continue MEDICAL STAFF SERVICES MANAGER Xanax and decreased Cymbalta 90 daily (reports taking 60 twice daily at home) -Also discontinued Adderall -Consult psychiatry, recommendation is noted Chronic anemia -Hemoglobin stable -Iron studies from 09/26/2018 show iron deficiency. B12 folate normal on 2017. -Status post IV iron x2 -Continue MEDICAL STAFF SERVICES MANAGER iron orally FEN - IVF: None -Monitor lites -6 small portion meals PPX - Lovenox LDA - PIV Dispo -Patient clinically improved. She is tolerating diet. Is comfortable going home. Instructions and prescriptions given. Code: Full >31 minutes in [id number] time spent with patient, patient/family counseling, coordination of care, and completion of discharge summary. This note was created using [employer] Dictation software, hence some grammatical errors may still be present despite editing at the time of the dictation. Subjective Chelsea Castillo is a 58 y.o. female. Patient reports doing fine this morning. She is in good spirits. She is up sitting in the chair. Her sister is at her bedside. She says diarrhea is improving. She also says her upper abdomen pain is also improved she reports only intermittent pain but less intensity 5/10. Denies any fevers, chills, chest pain, shortness of breath. Patient has been tolerating diet. Medications Scheduled Meds: atorvastatin (LIPITOR) tablet 40 [...] insulin aspart U-100 (NOVOLOG FLEXPEN) injection PEN 8 Units 8 Units Subcutaneous TID w/ meals insulin glargine (LANTUS SOLOSTAR, BASAGLAR) injection PEN 13 Units 13 Units Subcutaneous QHS iron sucrose (VENOFER) 300 [...] tablet 50 mg 50 mg Oral QDAY sucralfate (CARAFATE) oral suspension 1 g Patient Own Med 1 g Oral ACHS Continuous Infusions: PRN and Respiratory Meds:acetaminophen Q4H PRN, acetaminophen/lidocaine/antacid DS(#) QID PRN, ALPRAZolam BID PRN, loperamide Q2H PRN, promethazine Q6H PRN, tiZANidine Q6H PRN, zolpidem QHS PRN Review of Systems: A 14 point review of systems was negative except for: Constitutional: positive for fatigue Gastrointestinal: positive for diarrhea and abdominal pain Behvioral/Psych: positive for anxiety, depression and sleep disturbance Objective: Vital Signs: Last Filed Vital Signs: 24 Hour Range BP: 154/75 (10/12 927) Temp: 36.6 C (97.8 F) (10/12 927) Pulse: 86 (10/12 927) Respirations: 16 PER MINUTE (10/12 927) SpO2: 98 % (10/12 927) O2 Delivery: None (Room Air) (10/12 927) BP: (134-154)/(74-82) Temp: [36.1 C (96.9 F)-37.1 C (98.8 F)] Pulse: [78-102] Respirations: [16 PER MINUTE-18 PER MINUTE] SpO2: [94 %-99 %] O2 Delivery: None (Room Air) Intensity Pain Scale (Self Report): 7 (10/12/18 0854) Vitals: 10/09/18 1649 10/10/18 0621 10/11/18 0556 Weight: 63.5 kg (139 lb 15.9 oz) 63.4 kg (139 lb 12.8 oz) 62.5 kg (137 lb 12.8 oz) Intake/Output Summary: (Last 24 hours) Intake/Output Summary (Last 24 hours) at 10/12/18 1013 Last data filed at 10/12/18 0904 Gross per 24 hour Intake 1435 ml Output 500 ml Net 935 ml Stool Occurrence: 1 Physical Exam General: AO3x, no distress. Head: NCAT Eyes: PERRLA EOMI, ENT: Normal external canals b/l Neck: supple Lungs: CTAB Chest wall: No tenderness, Heart: RRR, no murmurs. Abdomen: soft ,non-tender, bs+ Extremities: no edema b/l Peripheral pulses: 2+ and symmetric, all extremities Skin: Pale Skin, texture, turgor normal. Lymph nodes: No cervical LAD Neurologic:grossly normal Musculoskeletal: Nontender Lab Review 24-hour labs: Results for orders placed or performed during the hospital encounter of (from the past 24 hour(s)) ELECTROPHORESIS-SERUM PROTEIN Collection Time: 10/11/18 11:25 AM Result Value Ref Range Total Protein-SEP 5.5 (L) 6.0 - 8.0 G/DL Albumin % 48 - 68 % Alpha 1 % 2 - 6 % Alpha 2 % 5 - 15 % Beta %,Serum 9 - 17 % Gamma % 9 - 21 % Paraprotein G/DL Interpretation - SEP Pathologist Signature POC GLUCOSE Collection Time: 10/11/18 12:28 PM Result Value Ref Range Glucose, POC 137 (H) 70 - 100 MG/DL POC GLUCOSE Collection Time: 10/11/18 5:16 PM Result Value Ref Range Glucose, POC 271 (H) 70 - 100 MG/DL POC GLUCOSE Collection Time: 10/11/18 8:57 PM Result Value Ref Range Glucose, POC 174 (H) 70 - 100 MG/DL CBC AND DIFF Collection Time: 10/12/18 3:00 AM Result Value Ref Range White Blood Cells 9.0 4.5 - 11.0 K/UL RBC 3.99 (L) 4.0 - 5.0 M/UL Hemoglobin 11.7 (L) 12.0 - 15.0 GM/DL Hematocrit 36.3 36 - 45 % MCV 90.9 80 - 100 FL MCH 29.4 26 - 34 PG MCHC 32.3 32.0 - 36.0 G/DL RDW 17.4 (H) 11 - 15 % Platelet Count 178 150 - 400 K/UL MPV 8.4 7 - 11 FL Neutrophils 31 (L) 41 - 77 % Lymphocytes 52 (H) 24 - 44 % Monocytes 8 4 - 12 % Eosinophils 8 (H) 0 - 5 % Basophils 1 0 - 2 % Absolute Neutrophil Count 2.80 1.8 - 7.0 K/UL Absolute Lymph Count 4.80 1.0 - 4.8 K/UL Absolute Monocyte Count 0.70 0 - 0.80 K/UL Absolute Eosinophil Count 0.70 (H) 0 - 0.45 K/UL Absolute Basophil Count 0.00 0 - 0.20 K/UL COMPREHENSIVE METABOLIC PANEL Collection Time: 10/12/18 3:00 AM Result Value Ref Range Sodium 137 137 - 147 MMOL/L Potassium 4.2 3.5 - 5.1 MMOL/L Chloride 102 98 - 110 MMOL/L Glucose 401 (H) 70 - 100 MG/DL Blood Urea Nitrogen 9 7 - 25 MG/DL Creatinine 0.85 0.4 - 1.00 MG/DL Calcium 8.9 8.5 - 10.6 MG/DL Total Protein 5.8 (L) 6.0 - 8.0 G/DL Total Bilirubin 0.3 0.3 - 1.2 MG/DL Albumin 3.5 3.5 - 5.0 G/DL Alk Phosphatase 91 25 - 110 U/L AST (SGOT) 21 7 - 40 U/L CO2 29 21 - 30 MMOL/L ALT (SGPT) 25 7 - 56 U/L Anion Gap 6 3 - 12 eGFR Non >60 >60 mL/min eGFR >60 >60 mL/min MAGNESIUM Collection Time: 10/12/18 3:00 AM Result Value Ref Range Magnesium 2.0 1.6 - 2.6 mg/dL POC GLUCOSE Collection Time: 10/12/18 3:06 AM Result Value Ref Range Glucose, POC 360 (H) 70 - 100 MG/DL POC GLUCOSE Collection Time: 10/12/18 7:28 AM Result Value Ref Range Glucose, POC 351 (H) 70 - 100 MG/DL Point of Care Testing (Last 24 hours) Glucose: (!) 401 (10/12/18 0300) POC Glucose (Download): (!) 351 (10/12/18 7606) Radiology and other Diagnostics Review: Pertinent radiology reviewed. No results found. Bebeto Hartmann MD Pager [phone] LIZER * Isrrael Borges, PT - 10/11/2018 4:01 PM NODULIZER PHYSICAL THERAPY ASSESSMENT/DISCHARGE MOBILITY: Mobility Progressive Mobility Level: Walk in hallway Distance Walked (feet): 250 ft Level of Assistance: Stand by assistance Assistive Device: None Time Tolerated: 11-30 minutes Activity Limited By: Patient request to stop SUBJECTIVE: Subjective Significant hospital events: Hx CLL, DMI, admit for diarrhea, dizziness Mental / Cognitive Status: Alert;Oriented;Cooperative;Follows Commands Persons Present: Spouse Pain: Patient has no complaint of pain Ambulation Assist: Independent Mobility at Household Level without Device Patient Owned Equipment: None Home Situation: Lives with Family Type of Home: House Entry Stairs: 3-5 Stairs;Rail on 1 Side (5) In-Home Stairs: Able to Live on One [...] to dizziness or LE weakness. STRENGTH: Strength Overall Strength: WFL BED MOBILITY/TRANSFERS: Bed Mobility/Transfers Bed Mobility: Supine to Sit: Independent Transfer Type: Sit to/from Stand Transfer: Assistance Level: Independent Transfer: Assistive Device: None BALANCE: Balance Sitting Balance: Independent Standing Balance: Static Standing Balance;Independent;Dynamic Standing Balance; Standby Assist GAIT: Gait Gait Distance: 250 feet Gait: Assistance Level: Standby Assist Gait: Assistive Device: None Gait: Descriptors: Swing-Through Gait;Pace: Normal;No balance loss;Pathway deviations Comments: Occasional pathway deviations, no balance loss. Slow gait with decreased step length. Pt denies dizziness or lightheadedness thorughout session. Stairs: Number Climbed: 3 Stairs: Descriptors: Ascend;Descend;Reciprocal Stairs: Assistance Level: Standby Assist Stairs: Assistive Device: One Rail EDUCATION: Education Persons Educated: Patient Teaching Methods: Verbal Instruction;Demonstration Patient Response: Verbalized Understanding;Return Demonstration Topics: Up with Assist Only;Safety Awareness;Ambulate With Nursing Recommended continued up with assistance given hx of falls ASSESSMENT/PROGRESS: Assessment/Progress Impaired Mobility Due To: Medical Status Limitation Assessment/Progress: Patient current status and level of safety suggests progression of activity can be achieved with nursing and/or family and does not require physical therapist intervention AM-PAC 6 Clicks Basic Mobility Inpatient [...] None Climbing 3-5 steps with a railing: A Little Raw Score: 23 Standardized (T-scale) Score: 50.88 Basic Mobility CMS 0-100%: 16.55 CMS G Code Modifier for Basic Mobility: CI G-Codes: Mobility G8978 Current Status: 1-19% Impairment G8979 Goal Status: 1-19% Impairment G8980 Discharge Status: 1-19% Impairment Based on above evaluation and clinical judgment. PLAN: Plan Plan Frequency: No Further Treatment RECOMMENDATIONS: PT Discharge Recommendations PT Discharge Recommendations: Home with Assistance Equipment Recommendations: None Recommend ongoing assistance for: In and out of house;Safety concerns Therapist: Isrrael Borges, PT, DPT Date: 10/11/2018 LIZER * Bebeto Hartmann MD - 10/11/2018 11:36 AM NODULIZER General Progress Note Name: Chelsea Parsons Jonathan Today's Date: 10/11/2018 Admission Date: 10/09/2018 LOS: 2 days Assessment/Plan: Active Problems: CLL (chronic lymphocytic leukemia) (HCC) Diarrhea Hypotension This is a 58 year old male with PMH of Type I DM, Diabetic neuropathy, recent diagnosis of SLL/CLL, Hypothyroidism, Orthostatic hypotension, Intractrable nausea/vomiting, cyclic vomiting syndrome, anxiety/depression, chronic abdominal pain, gastroparesis ?Epilepsy[on Tegretol] who presented to ED with diarrhea Diarrhea -noninfectious most likely functional: Improving - Watery diarrhea since last discharge from . Diarrhea improving now. - Colonosocpy during previous admission was normal except for tubular adenoma - Associated with worsening lightheadedness/fatigue - In the ED she was positive orthostatic down to 84/58 when sitting on the edge of the bed. Orthostatics improved. -Possible gi dysmotility due to poorly controlled diabetes with enteropathy and on polypharmacy. - GI consult, recommendation noted -stool studies: Fecal leukocyte is negative, C. difficile negative, cryptosporidium negative -Started on PO Vancomycin empirically on admission, but discontinued -She has unchanged chronic abdominal pain but no F/C/Hematochezia -Checking lipase, SPEP, CTA abdomen and pelvis to rule out mesenteric ischemia -Started on Imodium prn Orthostatic hypotension-improved - She has history of orthotsatic hypotension, on Florinef 0.3 mg QD -Off IV fluids, tolerating p.o. - Continue Florinef Gastroparesis -Get (09/23/2018)-Delayed gastric emptying times. -Received 3 doses of IV Reglan. Will avoid Reglan due to tardive dyskinesia. -Patient denies any nausea, vomiting Chronic abdominal pain - [place] possibley due to anxiety - EGD during last admission with erythematous mucosa, path with "chemical gastritis, negative for NHL/Hpylori) - It was through that her abdominal pain was likely functional due to anxiety -Discontinue MEDICAL STAFF SERVICES MANAGER Hydrocodone. Patient was counseled to avoid narcotics due to impaired gastric motility and worsening of her pain abdomen. -urine studies: Negative and urine drug screen: Positive for amphetamines and benzodiazepines (he is on Adderall and Xanax). She reports taking hydrocodone twice daily and her last dose was the day prior to admission, however her urine drug screen was negative for opiates -Pain control with Tylenol, Bentyl and heating pad CVC Chronic nausea/vomiting Hx of dysphagia - No active Sx on this admission -Monitor Type 1 diabetes, uncontrolled, with neuropathy -Hypoglycemia in the mornings, 64 this morning. -Decrease Lantus 13 units , continue NovoLog 8 units 3 times daily with meals and low-dose correction factor TBI - Patient becomes anxious with complex discussions/medical jargon CLL/SLL - Diagnosed on LN biopsy during last admission - Follow up with heme/onc outpatient Anxiety/depression -Follows with psychiatry as outpatient -Continue MEDICAL STAFF SERVICES MANAGER Xanax and decreased Cymbalta 90 daily (reports taking 60 twice daily at home) -Also discontinued Adderall -Consult psychiatry, recommendation is noted Chronic anemia -Hemoglobin stable -Iron studies from 09/26/2018 show iron deficiency. B12 folate normal on 2017. -will give IV iron FEN - IVF: None -Monitor lites -6 small portion meals PPX - Lovenox LDA - PIV Dispo -Continue inpatient admission, possible discharge in a.m. if diarrhea improves. Code: Full This note was created using [employer] Dictation software, hence some grammatical errors may still be present despite editing at the time of the dictation. Subjective Chelsea Julien Castillo is a 58 y.o. female. Patient reports doing okay this morning. She reports 7/10 pain abdomen in her epigastric area. Denies any nausea vomiting. States her diarrhea is improving, denies any bowel movements overnight but had 3 episodes this morning. . Denies any fevers, chills, chest pain, shortness of breath. Patient has been tolerating diet. Patient endorses taking hydrocodone 10 mg twice daily at home and her last dose was day prior to admission. She also reports taking her Adderall after discharge from the hospital. Medications Scheduled Meds: atorvastatin (LIPITOR) tablet 40 [...] insulin aspart U-100 (NOVOLOG FLEXPEN) injection PEN 8 Units 8 Units Subcutaneous TID w/ meals insulin glargine (LANTUS SOLOSTAR, BASAGLAR) injection PEN 13 Units 13 Units Subcutaneous QHS levothyroxine (SYNTHROID) tablet 175 [...] tablet 50 mg 50 mg Oral QDAY sucralfate (CARAFATE) oral suspension 1 g Patient Own Med 1 g Oral ACHS Continuous Infusions: PRN and Respiratory Meds:acetaminophen Q4H PRN, acetaminophen/lidocaine/antacid DS(#) QID PRN, ALPRAZolam BID PRN, loperamide Q2H PRN, promethazine Q6H PRN, tiZANidine Q6H PRN, zolpidem QHS PRN Review of Systems: A 14 point review of systems was negative except for: Constitutional: positive for fatigue Gastrointestinal: positive for diarrhea and abdominal pain Behvioral/Psych: positive for anxiety, depression and sleep disturbance Objective: Vital Signs: Last Filed Vital Signs: 24 Hour Range BP: 150/89 (10/11 1005) Temp: 36.7 C (98.1 F) (10/11 100) Pulse: 88 (10/11 1005) Respirations: 18 PER MINUTE (10/11 1005) SpO2: 99 % (10/11 1005) O2 Delivery: None (Room Air) (10/11 100) BP: (140-163)/(73-90) Temp: [36.6 C (97.8 F)-36.9 C (98.5 F)] Pulse: [81-91] Respirations: [16 PER MINUTE-18 PER MINUTE] SpO2: [97 %-99 %] O2 Delivery: None (Room Air) Intensity Pain Scale (Self Report): 8 (10/11/18 0917) Vitals: 10/09/18 1649 10/10/18 0621 10/11/18 0556 Weight: 63.5 kg (139 lb 15.9 oz) 63.4 kg (139 lb 12.8 oz) 62.5 kg (137 lb 12.8 oz) Intake/Output Summary: (Last 24 hours) Intake/Output Summary (Last 24 hours) at 10/11/18 1136 Last data filed at 10/11/18 1010 Gross per 24 hour Intake 590 ml Output 1400 ml Net -810 ml Stool Occurrence: 1 Physical Exam General: AO3x, no distress. Head: NCAT Eyes: PERRLA EOMI, ENT: Normal external canals b/l Neck: supple Lungs: CTAB Chest wall: No tenderness, Heart: RRR, no murmurs. Abdomen: soft ,non-tender, bs+ Extremities: no edema b/l Peripheral pulses: 2+ and symmetric, all extremities Skin: Pale Skin, texture, turgor normal. Lymph nodes: No cervical LAD Neurologic:grossly normal Musculoskeletal: Nontender Lab Review 24-hour labs: Results for orders placed or performed during the hospital encounter of (from the past 24 hour(s)) POC GLUCOSE Collection Time: 10/10/18 1:44 PM Result Value Ref Range Glucose, POC 284 (H) 70 - 100 MG/DL AMPHETAMINES-URINE RANDOM Collection Time: 10/10/18 4:30 PM Result Value Ref Range Amphetamines POS (A) NEG-NEG BARBITURATES-URINE RANDOM Collection Time: 10/10/18 4:30 PM Result Value Ref Range Barbiturates,Urine NEG NEG-NEG BENZODIAZEPINES-URINE RANDOM Collection Time: 10/10/18 4:30 PM Result Value Ref Range Benzodiazepines POS (A) NEG-NEG CANNABINOIDS-URINE RANDOM Collection Time: 10/10/18 4:30 PM Result Value Ref Range THC NEG NEG-NEG COCAINE-URINE RANDOM Collection Time: 10/10/18 4:30 PM Result Value Ref Range Cocaine-Urine NEG NEG-NEG PHENCYCLIDINES-URINE RANDOM Collection Time: 10/10/18 4:30 PM Result Value Ref Range Phencyclidine (PCP) NEG NEG-NEG METHADONE-URINE SCREEN Collection Time: 10/10/18 4:30 PM Result Value Ref Range Methadone NEG NEG-NEG OXYCODONE URINE SCREEN Collection Time: 10/10/18 4:30 PM Result Value Ref Range Oxycodone, Urine NEG NEG-NEG OPIATES 300 OR GREATER-URINE RANDOM Collection Time: 10/10/18 4:30 PM Result Value Ref Range Opiates 300 NEG NEG-NEG URINALYSIS DIPSTICK REFLEX TO CULTURE Collection Time: 10/10/18 4:30 PM Result Value Ref Range Color,UA YELLOW Turbidity,UA CLEAR CLEAR-CLEAR Specific [place]-Urine 1.009 1.003 - 1.035 pH,UA 7.0 5.0 - 8.0 Protein,UA NEG NEG-NEG Glucose,UA 2+ (A) NEG-NEG Ketones,UA NEG NEG-NEG Bilirubin,UA NEG NEG-NEG Blood,UA NEG NEG-NEG Urobilinogen,UA NORMAL NORM-NORMAL Nitrite,UA NEG NEG-NEG Leukocytes,UA NEG NEG-NEG Urine Ascorbic Acid, UA NEG NEG-NEG URINALYSIS MICROSCOPIC REFLEX TO CULTURE Collection Time: 10/10/18 4:30 PM Result Value Ref Range WBCs,UA 0-2 0 - 2 /HPF RBCs,UA 0-2 0 - 3 /HPF Comment,UA Urine submitted for reflex culture if criteria are met:WBC>10, positive nitrite and/or >=1+ leukocyte esterase. If quantity is not sufficient, an addendum will follow. MucousUA TRACE Bacteria,UA FEW (A) NEG-NEG Squamous Epithelial Cells 0-2 0 - 5 POC GLUCOSE Collection Time: 10/10/18 5:04 PM Result Value Ref Range Glucose, POC 200 (H) 70 - 100 MG/DL POC GLUCOSE Collection Time: 10/10/18 8:06 PM Result Value Ref Range Glucose, POC 254 (H) 70 - 100 MG/DL CBC AND DIFF Collection Time: 10/11/18 2:00 AM Result Value Ref Range White Blood Cells 7.5 4.5 - 11.0 K/UL RBC 3.70 (L) 4.0 - 5.0 M/UL Hemoglobin 10.8 (L) 12.0 - 15.0 GM/DL Hematocrit 33.0 (L) 36 - 45 % MCV 89.1 80 - 100 FL MCH 29.2 26 - 34 PG MCHC 32.8 32.0 - 36.0 G/DL RDW 17.4 (H) 11 - 15 % Platelet Count 193 150 - 400 K/UL MPV 8.0 7 - 11 FL Neutrophils 23 (L) 41 - 77 % Lymphocytes 63 (H) 24 - 44 % Monocytes 6 4 - 12 % Eosinophils 8 (H) 0 - 5 % Basophils 0 0 - 2 % Absolute Neutrophil Count 1.70 (L) 1.8 - 7.0 K/UL Absolute Lymph Count 4.70 1.0 - 4.8 K/UL Absolute Monocyte Count 0.40 0 - 0.80 K/UL Absolute Eosinophil Count 0.60 (H) 0 - 0.45 K/UL Absolute Basophil Count 0.00 0 - 0.20 K/UL COMPREHENSIVE METABOLIC PANEL Collection Time: 10/11/18 2:00 AM Result Value Ref Range Sodium 139 137 - 147 MMOL/L Potassium 3.6 3.5 - 5.1 MMOL/L Chloride 105 98 - 110 MMOL/L Glucose 133 (H) 70 - 100 MG/DL Blood Urea Nitrogen 10 7 - 25 MG/DL Creatinine 0.81 0.4 - 1.00 MG/DL Calcium 8.3 (L) 8.5 - 10.6 MG/DL Total Protein 5.3 (L) 6.0 - 8.0 G/DL Total Bilirubin 0.2 (L) 0.3 - 1.2 MG/DL Albumin 3.1 (L) 3.5 - 5.0 G/DL Alk Phosphatase 81 25 - 110 U/L AST (SGOT) 22 7 - 40 U/L CO2 31 (H) 21 - 30 MMOL/L ALT (SGPT) 24 7 - 56 U/L Anion Gap 3 3 - 12 eGFR Non >60 >60 mL/min eGFR >60 >60 mL/min MAGNESIUM Collection Time: 10/11/18 2:00 AM Result Value Ref Range Magnesium 1.8 1.6 - 2.6 mg/dL LIPASE Collection Time: 10/11/18 2:00 AM Result Value Ref Range Lipase 14 11 - 82 U/L POC GLUCOSE Collection Time: 10/11/18 6:03 AM Result Value Ref Range Glucose, POC 64 (L) 70 - 100 MG/DL POC GLUCOSE Collection Time: 10/11/18 6:14 AM Result Value Ref Range Glucose, POC 82 70 - 100 MG/DL POC GLUCOSE Collection Time: 10/11/18 8:14 AM Result Value Ref Range Glucose, POC 293 (H) 70 - 100 MG/DL Point of Care Testing (Last 24 hours) Glucose: (!) 133 (10/11/18 0200) POC Glucose (Download): (!) 293 (10/11/18 3400) Radiology and other Diagnostics Review: Pertinent radiology reviewed. No results found. Bebeto Hartmann MD Pager [phone] LIZER * Niki Vázquez RN - 10/10/2018 2:28 PM NODULIZER Unable to obtain urine specimen, contaminated with stool. LIZER * Bebeto Hartmann MD - 10/10/2018 1:02 PM NODULIZER General Progress Note Name: Chelsea Castillo Today's Date: 10/10/2018 Admission Date: 10/09/2018 LOS: 1 day Assessment/Plan: Active Problems: CLL (chronic lymphocytic leukemia) (HCC) Diarrhea Hypotension This is a 58 year old male with PMH of Type I DM, Diabetic neuropathy, recent diagnosis of SLL/CLL, Hypothyroidism, Orthostatic hypotension, Intractrable nausea/vomiting, cyclic vomiting syndrome, anxiety/depression, chronic abdominal pain, gastroparesis ?Epilepsy[on Tegretol] who presented to ED with diarrhea Diarrhea - Watery diarrhea since last discharge from - Colonosocpy during previous admission was normal except for tubular adenoma - Associated with worsening lightheadedness/fatigue - In the ED she was positive orthostatic down to 84/58 when sitting on the edge of the bed - Unclear etiology. She tested negative for C diff during last admission but this still could be on the differential. She had uncontrolled DM with gastroparesis -> diabetic enteropathy. She has CLL/Hydroxychloroquine -> opportunistic infections - GI consult -stool studies including C. difficile pending -Started on PO Vancomycin empirically, will continue for now -She has unchanged chronic abdominal pain but no F/C/Hematochezia -> hold off on repeat abdominal imaging -Start on Imodium if stool studies are negative for infection Orthostatic hypotension-improved - She has history of orthotsatic hypotension, on Florinef 0.3 mg QD - IVF, monitor with Orthostatics - Continue Florinef Gastroparesis -Get (09/23/2018)-Delayed gastric emptying times. -Received 3 doses of IV Reglan -Patient denies any nausea, vomiting Chronic abdominal pain - [place] possibley due to anxiety - EGD during last admission with erythematous mucosa, path with "chemical gastritis, negative for NHL/Hpylori) - It was through that her abdominal pain was likely functional due to anxiety -Will hold off on MEDICAL STAFF SERVICES MANAGER Hydrocodone -Check urine studies and urine drug screen -Pain control with Tylenol, Bentyl and heating pad CVC Chronic nausea/vomiting Hx of dysphagia - No active Sx on this admission -Monitor Type 1 diabetes, uncontrolled, with neuropathy -Lantus 15 units of NovoLog. His 3 times daily with meals TBI - Patient becomes anxious with complex discussions/medical jargon CLL/SLL - Diagnosed on LN biopsy during last admission - Follow up with heme/onc outpatient Anxiety/depression -Follows with psychiatry as outpatient -Continue MEDICAL STAFF SERVICES MANAGER Xanax and Cymbalta -Patient reports feeling tearful and sleep issues. -Consult psychiatry FEN - IVF - Daily labs -6 small portion meals PPX - Lovenox LDA - PIV Dispo -Continue inpatient admission Code: Full Addendum- cdiff negative. D/c vanc and start on imodium. This note was created using [employer] Dictation software, hence some grammatical errors may still be present despite editing at the time of the dictation. Subjective Chelsea Contehrhona Castillo is a 58 y.o. female. Patient reports 9 out of 10 pain abdomen in her epigastric area. Denies any nausea vomiting. Reports multiple bowel movements small amounts. Patient reports feeling anxious. Denies any fevers, chills, chest pain, shortness of breath. She has been tolerating clear liquid diet. Medications Scheduled Meds: atorvastatin (LIPITOR) tablet 40 [...] insulin aspart U-100 (NOVOLOG FLEXPEN) injection PEN 8 Units 8 Units Subcutaneous TID w/ meals insulin glargine (LANTUS SOLOSTAR, BASAGLAR) injection PEN 15 Units 15 Units Subcutaneous QHS levothyroxine (SYNTHROID) tablet 175 [...] tablet 50 mg 50 mg Oral QDAY sucralfate (CARAFATE) oral suspension 1 g Patient Own Med 1 g Oral ACHS vancomycin (FIRVANQ) oral solution 125 mg 125 mg Oral QID Continuous Infusions: PRN and Respiratory Meds:acetaminophen Q4H PRN, acetaminophen/lidocaine/antacid DS(#) QID PRN, ALPRAZolam BID PRN, promethazine Q6H PRN, tiZANidine Q6H PRN, zolpidem QHS PRN Review of Systems: A 14 point review of systems was negative except for: Constitutional: positive for fatigue Gastrointestinal: positive for diarrhea and abdominal pain Behvioral/Psych: positive for anxiety, depression and sleep disturbance Objective: Vital Signs: Last Filed Vital Signs: 24 Hour Range BP: 164/73 (10/10 1011) Temp: 36.7 C (98 F) (10/10 1011) Pulse: 81 (10/10 1011) Respirations: 16 PER MINUTE (10/10 1011) SpO2: 98 % (10/10 1011) O2 Delivery: None (Room Air) (10/10 1011) SpO2 Pulse: 80 (10/09 1400) Height: 167.6 cm (65.98") (10/09 1649) BP: (122-164)/(69-109) Temp: [36.7 C (98 F)-36.7 C (98.1 F)] Pulse: [78-88] Respirations: [16 PER MINUTE] SpO2: [95 %-99 %] O2 Delivery: None (Room Air) Intensity Pain Scale (Self Report): 8 (10/10/18 0905) Vitals: 10/09/18 1649 10/10/18 0621 Weight: 63.5 kg (139 lb 15.9 oz) 63.4 kg (139 lb 12.8 oz) Intake/Output Summary: (Last 24 hours) No intake or output data in the 24 hours ending 10/10/18 1302 Stool Occurrence: 1 Physical Exam General: AO3x, emotional and tearful. Flat affect. Head: NCAT Eyes: PERRLA EOMI, ENT: Normal external canals b/l Neck: supple Lungs: CTAB Chest wall: No tenderness, Heart: RRR, no murmurs. Abdomen: soft ,non-tender, bs+ Extremities: no edema b/l Peripheral pulses: 2+ and symmetric, all extremities Skin: Pale Skin, texture, turgor normal. Lymph nodes: No cervical LAD Neurologic:grossly normal Musculoskeletal: Nontender Lab Review 24-hour labs: Results for orders placed or performed during the hospital encounter of (from the past 24 hour(s)) POC GLUCOSE Collection Time: 10/09/18 5:30 PM Result Value Ref Range Glucose, POC 83 70 - 100 MG/DL POC GLUCOSE Collection Time: 10/09/18 8:29 PM Result Value Ref Range Glucose, POC 167 (H) 70 - 100 MG/DL CBC AND DIFF Collection Time: 10/10/18 2:07 AM Result Value Ref Range White Blood Cells 6.3 4.5 - 11.0 K/UL RBC 3.62 (L) 4.0 - 5.0 M/UL Hemoglobin 10.6 (L) 12.0 - 15.0 GM/DL Hematocrit 32.6 (L) 36 - 45 % MCV 90.2 80 - 100 FL MCH 29.4 26 - 34 PG MCHC 32.6 32.0 - 36.0 G/DL RDW 17.7 (H) 11 - 15 % Platelet Count 157 150 - 400 K/UL MPV 7.8 7 - 11 FL Neutrophils 18 (L) 41 - 77 % Lymphocytes 70 (H) 24 - 44 % Monocytes 6 4 - 12 % Eosinophils 5 0 - 5 % Basophils 1 0 - 2 % Absolute Neutrophil Count 1.10 (L) 1.8 - 7.0 K/UL Absolute Lymph Count 4.40 1.0 - 4.8 K/UL Absolute Monocyte Count 0.40 0 - 0.80 K/UL Absolute Eosinophil Count 0.30 0 - 0.45 K/UL Absolute Basophil Count 0.00 0 - 0.20 K/UL COMPREHENSIVE METABOLIC PANEL Collection Time: 10/10/18 2:07 AM Result Value Ref Range Sodium 139 137 - 147 MMOL/L Potassium 3.5 3.5 - 5.1 MMOL/L Chloride 107 98 - 110 MMOL/L Glucose 57 (L) 70 - 100 MG/DL Blood Urea Nitrogen 12 7 - 25 MG/DL Creatinine 0.83 0.4 - 1.00 MG/DL Calcium 8.2 (L) 8.5 - 10.6 MG/DL Total Protein 4.9 (L) 6.0 - 8.0 G/DL Total Bilirubin 0.2 (L) 0.3 - 1.2 MG/DL Albumin 3.1 (L) 3.5 - 5.0 G/DL Alk Phosphatase 80 25 - 110 U/L AST (SGOT) 25 7 - 40 U/L CO2 29 21 - 30 MMOL/L ALT (SGPT) 21 7 - 56 U/L Anion Gap 3 3 - 12 eGFR Non >60 >60 mL/min eGFR >60 >60 mL/min MAGNESIUM Collection Time: 10/10/18 2:07 AM Result Value Ref Range Magnesium 1.9 1.6 - 2.6 mg/dL POC GLUCOSE Collection Time: 10/10/18 3:16 AM Result Value Ref Range Glucose, POC 69 (L) 70 - 100 MG/DL POC GLUCOSE Collection Time: 10/10/18 3:39 AM Result Value Ref Range Glucose, POC 138 (H) 70 - 100 MG/DL POC GLUCOSE Collection Time: 10/10/18 9:11 AM Result Value Ref Range Glucose, POC 283 (H) 70 - 100 MG/DL Point of Care Testing (Last 24 hours) Glucose: (!) 57 (10/10/18 0207) POC Glucose (Download): (!) 283 (10/10/18 0909) Radiology and other Diagnostics Review: Pertinent radiology reviewed. No results found. Bebeto Hartmann MD Pager [phone] LIZER * Kyle Sosa - 10/10/2018 12:11 PM NODULIZER Pharmacy Note: Patients Own Med The following medications have been identified by pharmacy and placed in the locked medication box for storage: Pharmacy: [facility] Pharmacy Prescriber: Migue Patton Rx #[id number] Medication: Carafate 1 gm/10 mL suspension Mfg: [employer] Lot: [id number] BUD Exp: 10/07/2019 The patient may use their own supply of these medications during this admission. All doses should be administered and documented per hospital policy. Kyle Sosa Clinical Construction Pit Worker 10/10/2018 LIZER * Gayatri Hunter RN - 10/09/2018 4:53 PM NODULIZER Patient arrived to room # (07460) via cart accompanied by transport. Patient transferred to the bed with assistance. Bedside safety checks completed. Initial patient assessment completed, refer to flowsheet for details. Skin Assessment Performed skin assessment with (Lyndsay Hill RN). Patient does not have pressure injury upon admission to unit. Pressure Injury is Stage 2 or greater: No Wound Team Consulted: No Please see doc flowsheet for further wound information. Fall Risk Assessment Admission fall risk assessment completed. Patient's is high fall risk, SBA. High Fall Risk Bundle Implemented: YES LIZER in this encounter H&P Notes * Tejas Tejada MD - 10/09/2018 2:42 PM NODULIZER Admission History and Physical Name: Chelsea Castillo Admission Date: 10/09/2018 Admission Diagnosis: No admission diagnoses are documented for this encounter. Active Problems: * No active hospital problems. * Assessment/Plan: This is a 58 year old male with PMH of Type I DM, Diabetic neuropathy, recent diagnosis of SLL/CLL, Hypothyroidism, Orthostatic hypotension, Intractrable nausea/vomiting, cyclic vomiting syndrome, anxiety/depression, chronic abdominal pain, gastroparesis ?Epilepsy[on Tegretol] who presented to ED with diarrhea Diarrhea - Watery diarrhea since last discharge from - Colonosocpy during previous admission was normal except for tubular adenoma - Associated with worsening lightheadedness/fatigue - In the ED she was positive orthostatic down to 84/58 when sitting on the edge of the bed - Unclear etiology. She tested negative for C diff during last admission but this still could be on the differential. She had uncontrolled DM with gastroparesis -> diabetic enteropathy. She has CLL/Hydroxychloroquine -> opportunistic infecitons > admit for workup of infectious diarrhea and GI consult > Obtain stool electrolytes > Start PO Vancomycin > She has unchanged chronic abdominal pain but no F/C/Hematochezia -> hold off on repeat abdominal imaging Orthostatic hypotension - She has history of orthotsatic hypotension, on Florinef 0.3 mg QD > IVF, monitor with Orthostatics > Continue Florinef Gastroparesis > Patient requested Reglan but this is not on her MEDICAL STAFF SERVICES MANAGER med list 0-> will give just overnight for now Chronic abdominal pain - [place] possibley due to anxiety - EGD during last admission with erythematous mucosa, path with "chemical gastritis, negative for NHL/Hpylori) - It was through that her abdominal pain was likely functional due to anxiety > Will hold off on MEDICAL STAFF SERVICES MANAGER Hydrocodone CVC Chronic nausea/vomiting Hx of dysphagia - No active Sx on this admission > Monitor TBI - Patient becomes anxious with complex discussions/medical jargon CLL/SLL - Diagnosed on LN biopsy during last admission > Follow up with heme/onc outpatient FEN - IVF - Daily labs - CLD diet, ADAT PPX - Lovenox LDA - PIV Dispo - Admit to IM Code: Full Tejas Tejada M.D. Clinical Embedded Systems Developer Department of Intrernal Medicine Subjective: CC "Diarrhea: HPI: Chelsea Castillo is a 58 y.o. female. SHe is here with diarrhea. She was discharged from couple of week ago and was having watery diarrhea since that time. She said that she was tested negative for C diff during her previous admissions. Denies any abdominal pain, no active N/V at this time but she has become progressively more weak and lightheaded. She did call GI today who agreed that she should be evaluated in an ER. Denies other acute symptomatology. Past Medical History: Diagnosis Date Arthritis Diabetes [...] Social History Narrative No narrative on file Allergies Allergen Reactions Sulfa (Sulfonamide Antibiotics) UNKNOWN Review of Systems System Positives Negatives Constitutional: Fever, chills, unintentional weight loss Eyes: Diplopia, blurry vision ENT: Congestion, sinus pain, ear pain, ear discharge Respiratory: Cough, Shortness of breath Cardiovascular: Palpitations, claudication, Chest pain Gastrointestinal: Diarrhea, chronic abdomial pain Vomiting,hematemesis, melena Genitourinary: Dysuria, blood in urine, incontinence Hematologic: Bleeding dyscrasias, easy bruising Musculoskeletal: Arthralgias, myalgias, joints swelling, joints erythema Neurological: Headache, numbness, tingling, loss of consciousness, seizures, tremors Behavioral/Psych: Suicidal ideation, hallucinations Skin: Rash, itching, skin abrasions, infected skin lesions Objective: Vital Signs: Last Filed In 24 Hours Vital Signs: 24 Hour Range BP: 158/86 (10/09 1400) Temp: 37 C (98.6 F) (10/09 1032) Pulse: 80 (10/09 1032) Respirations: 14 PER MINUTE (10/09 1032) SpO2: 95 % (10/09 1400) SpO2 Pulse: 80 (10/09 1400) BP: (84-158)/(58-86) Temp: [37 C (98.6 F)] Pulse: [80] Respirations: [14 PER MINUTE] SpO2: [94 %-97 %] PHYSICAL EXAMINATION: General Appearance: Cooperative, NAD Head: NC/AT Neck: no JVD; no LAD Eyes: Conjunctivae/corneas clear. PERRL, EOMs intact. Lungs: CTAB Heart: RRR, no m/r/g Abdomen: Soft, NT, +BS Extremities: Atraumatic, no C/C/E Pulses: +2 in all extremities Neurologic: A, OX3, CNII - XII grossly intact; no gross focal deficits LABS: Recent Labs 10/09/18 1057 NA 138 K 4.0 CL 104 CO2 29 GAP 5 BUN 17 CR 0.92 GLU 139* CA 8.4* ALBUMIN 3.2* Recent Labs 10/09/18 1057 WBC 6.6 HGB 10.5* HCT 31.7* PLTCT 186 AST 21 ALT 22 ALKPHOS 82 Estimated Creatinine Clearance: 67.5 mL/min (based on SCr of 0.92 mg/dL).There were no vitals filed for this visit. No results for input(s): PHART, PO2ART in the last 72 hours. Invalid input(s): PC02A MEDS IV MEDS Prn HOME MEDS No current facility-administered medications on file prior to encounter. Current Outpatient Prescriptions on File Prior to Encounter Medication Sig [...] by mouth twice daily. 60 capsule 1 dextroamphetamine-amphetamine (ADDERALL) 20 mg tablet Take 20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 Would not resume adderall at this time. Recommend decreasing ambien to 5mg as per FDA recommendations. Patient reports depression and anxiety in the context of pain/medical issues. Will continue to follow. Please feel free to contact us with any additional questions or concerns by paging the consult team between 8am and 5pm on weekdays and between 8am and 3pm on weekends [phone]. Otherwise, page the medical resident credit administration manager. Staff name: Karma Grant DO Date: 10/10/2018 in this encounter Miscellaneous Notes * Care Plan - Gayatri Hunter RN - 10/12/2018 10:23 AM NODULIZER Problem: Infection, Risk of, Central Venous Catheter-Associated Bloodstream Infection Goal: Absence of CVC Associated Bloodstream infection Outcome: Goal Achieved Date Met: 10/12/18 Free from s/s of infection. Port will be heparin locked and deacessed. Problem: Discharge Planning Goal: Participation in plan of care Outcome: Goal Achieved Date Met: 10/12/18 Pt discharging home today via family transport. Will review discharge paperwork prior to d/c. Problem: Pain Goal: Management of pain Outcome: Goal Achieved Date Met: 10/12/18 Pt's pain is well controlled with PRN GI cocktail. LIZER * Care Coordination-Inpatient - Pipe Bowers MD - 10/10/2018 1:28 AM NODULIZER Patient to be assigned to Med B . Please page Med swing 3 pager # [phone] until 8 am. After 8 am, please page Med B pager # [phone] Pipe Bowers MD LIZER * ED Notes - Waleska Kim RN - 10/09/2018 3:18 PM NODULIZER 1518: [id number] ready. Please call Violette for report @ [phone] LIZER * ED Provider Notes - Yamil Escalante MD - 10/09/2018 11:36 AM NODULIZER Chelsea Castillo is a 58 y.o. female. Chief Complaint: Chief Complaint Patient presents with Diarrhea x3 wks, recent dx of CLL History of Present Illness: Mrs. Issa Castillo is a 58 y/o female with pmh of CLL, Type 1 DM, hypothyroid who presents to ED for diarrhea. She states that she has been struggling with diarrhea since the middle of her last admission at end of August this year. She states that her diarrhea is non bloody, water, does not have mucus or grease in it. It is progressively getting worse. She is having some lightheadedness and dizziness with change in position. has needed to assist her a few times with ambulation. She is feeling more fatigued. She denies fevers, chills. She has been taking imodium and OTC antidiarrhea at maximum dose possible since discharge however this is not improving her symptoms. She is drinking a lot of water and urinating a normal amount. She denies recent antibiotic use. Review of Systems: Review of Systems Constitutional: Positive for activity change, appetite change and fatigue. Negative for chills, diaphoresis and fever. HENT: Negative for congestion, postnasal drip, rhinorrhea, sinus pressure, sneezing, sore throat and voice change. Eyes: Negative for photophobia. Respiratory: Positive for shortness of breath. Negative for cough, chest tightness and wheezing. Cardiovascular: Negative for chest pain, palpitations and leg swelling. Gastrointestinal: Positive for abdominal pain and diarrhea. Negative for abdominal distention, blood in stool, constipation, nausea and vomiting. Genitourinary: Negative for dysuria, frequency, hematuria and urgency. Musculoskeletal: Negative for neck stiffness. Skin: Negative for wound. Neurological: Positive for dizziness, weakness, light-headedness and headaches. Negative for syncope. Allergies: Sulfa (sulfonamide antibiotics) Past Medical History: [...] T BP P RR SPO2P SPO2 User 10/09/18 1230 -- 134/79 -- -- 76 95 % 10/09/18 1200 -- 120/74 -- -- 80 94 % 10/09/18 1130 -- 123/78 -- -- 80 97 % 10/09/18 1100 -- 119/68 -- -- 82 95 % 10/09/18 1035 -- (!) 84/58 -- -- 82 97 % 10/09/18 1034 -- 117/68 -- -- 79 95 % 10/09/18 1032 37 C (98.6 F) 111/72 80 14 PER MINUTE -- 96 % Physical Exam: Physical Exam Constitutional: She is oriented to person, place, and time. She appears well- developed and well-nourished. No distress. Appears fatigued HENT: Head: Normocephalic and atraumatic. Right Ear: External ear normal. Left Ear: External ear normal. Mouth/Throat: Oropharynx is clear and moist. Eyes: Pupils are equal, round, and reactive to light. Conjunctivae and EOM are normal. Right eye exhibits no discharge. Left eye exhibits no discharge. No scleral icterus. Neck: Neck supple. Cardiovascular: Normal rate, regular rhythm, normal heart sounds and intact distal pulses. Exam reveals no gallop and no friction rub. No murmur heard. Pulmonary/Chest: Effort normal and breath sounds normal. No respiratory distress. She has no wheezes. She has no rales. She exhibits no tenderness. Abdominal: Soft. Bowel sounds are normal. She exhibits no distension and no mass. There is tenderness. There is no rebound and no guarding. Epigastric tenderness to palpation Musculoskeletal: She exhibits no edema or deformity. Neurological: She is oriented to person, place, and time. No cranial nerve deficit. Skin: Skin is warm and dry. She is not diaphoretic. No erythema. Laboratory Results: Results for orders placed or performed during the hospital encounter of (from the past 24 hour(s)) CBC AND DIFF Result Value Ref Range White Blood Cells 6.6 4.5 - 11.0 K/UL RBC 3.58 (L) 4.0 - 5.0 M/UL Hemoglobin 10.5 (L) 12.0 - 15.0 GM/DL Hematocrit 31.7 (L) 36 - 45 % MCV 88.7 80 - 100 FL MCH 29.4 26 - 34 PG MCHC 33.1 32.0 - 36.0 G/DL RDW 17.7 (H) 11 - 15 % Platelet Count 186 150 - 400 K/UL MPV 8.2 7 - 11 FL Neutrophils 47 41 - 77 % Lymphocytes 41 24 - 44 % Monocytes 6 4 - 12 % Eosinophils 5 0 - 5 % Basophils 1 0 - 2 % Absolute Neutrophil Count 3.20 1.8 - 7.0 K/UL Absolute Lymph Count 2.70 1.0 - 4.8 K/UL Absolute Monocyte Count 0.40 0 - 0.80 K/UL Absolute Eosinophil Count 0.30 0 - 0.45 K/UL Absolute Basophil Count 0.00 0 - 0.20 K/UL COMPREHENSIVE METABOLIC PANEL Result Value Ref Range Sodium 138 137 - 147 MMOL/L Potassium 4.0 3.5 - 5.1 MMOL/L Chloride 104 98 - 110 MMOL/L Glucose 139 (H) 70 - 100 MG/DL Blood Urea Nitrogen 17 7 - 25 MG/DL Creatinine 0.92 0.4 - 1.00 MG/DL Calcium 8.4 (L) 8.5 - 10.6 MG/DL Total Protein 5.2 (L) 6.0 - 8.0 G/DL Total Bilirubin 0.2 (L) 0.3 - 1.2 MG/DL Albumin 3.2 (L) 3.5 - 5.0 G/DL Alk Phosphatase 82 25 - 110 U/L AST (SGOT) 21 7 - 40 U/L CO2 29 21 - 30 MMOL/L ALT (SGPT) 22 7 - 56 U/L Anion Gap 5 3 - 12 eGFR Non >60 >60 mL/min eGFR >60 >60 mL/min Radiology Interpretation: none EKG: none ED Course: Patient seen and evaluated by this resident and Dr. Escalante Vitals stable Orthostatic vitals positive Labs, C diff PCR ordered IVF ordered Morphine ordered for pain control Internal medicine contacted for admission MDM Reviewed: previous chart, nursing note and vitals Interpretation: labs Facility Administered Meds: Facility-Administered Medications as of 10/09/2018 Medication Last Dose morphine injection syringe 4 mg Clinical Impression: Final diagnoses: Diarrhea, unspecified type (Primary) Disposition/Follow up No follow-up provider specified. Medications: New Prescriptions No medications on file Procedure Notes: Procedures none Attestation / Supervision: SOLEDAD HARP MD PGY-1 Patient seen and discussed with Dr. Escalante Attestation / Supervision Note concerning Chelsea Castillo: I personally performed the E/M including history, physical exam, and MDM. and I personally performed the ortega portions of the E/M visit, discussed case with resident and concur with resident documentation of history, physical exam, assessment, and treatment plan unless otherwise noted. Yamil Escalante MD LIZER * ED Notes - Violette Arevalo, RN - 10/09/2018 10:21 AM NODULIZER Pt presents to the ED for the evaluation/treatment of diarrhea. Recent hospitalization, dx with leukemia, had diarrhea prior to discharge. Diarrhea has continued. Pt describes diarrhea as "running."C/o stomach pain. Denies nausea,vomiting. LIZER in this encounter Plan of Treatment Care Team Description Date Type Specialty Gunnar Kirk MD [address] [place] [address] [phone] Delayed gastric emptying 02/03/2019 Hospital Encounter Gunnar Kirk MD [address] [place] [address] [phone] ESOPHAGOGASTRODUODENOSCOPY WITH SPECIMEN COLLECTION BY BRUSHING/ WASHING 02/03/2019 Surgery as of this encounter Procedures Comments Procedure Name Priority Date/Time Associated Diagnosis POC GLUCOSE 10/12/2018 11:28 AM NODULIZER POC GLUCOSE 10/12/2018 10:47 AM NODULIZER POC GLUCOSE 10/12/2018 7:28 AM NODULIZER POC GLUCOSE 10/12/2018 3:06 AM NODULIZER CBC AND DIFF Routine 10/12/2018 3:00 AM NODULIZER MAGNESIUM Routine 10/12/2018 3:00 AM NODULIZER COMPREHENSIVE METABOLIC Routine 10/12/2018 PANEL 3:00 AM NODULIZER POC GLUCOSE 10/11/2018 8:57 PM NODULIZER POC GLUCOSE 10/11/2018 5:16 PM NODULIZER CTA ABD/PELVIS Routine 10/11/2018 2:18 PM NODULIZER POC GLUCOSE 10/11/2018 12:28 PM NODULIZER CONSULT IV THERAPY TEAM Routine 10/11/2018 11:40 AM NODULIZER ELECTROPHORESIS-SERUM Routine 10/11/2018 PROTEIN 11:25 AM NODULIZER POC GLUCOSE 10/11/2018 8:14 AM NODULIZER POC GLUCOSE 10/11/2018 6:14 AM NODULIZER POC GLUCOSE 10/11/2018 6:03 AM NODULIZER CBC AND DIFF Routine 10/11/2018 2:00 AM NODULIZER MAGNESIUM Routine 10/11/2018 2:00 AM NODULIZER LIPASE Add on 10/11/2018 2:00 AM NODULIZER COMPREHENSIVE METABOLIC Routine 10/11/2018 PANEL 2:00 AM NODULIZER POC GLUCOSE 10/10/2018 8:06 PM NODULIZER POC GLUCOSE 10/10/2018 5:04 PM NODULIZER UA REFLEX CULTURE LABEL Routine 10/10/2018 4:30 PM NODULIZER URINALYSIS MICROSCOPIC Routine 10/10/2018 REFLEX TO CULTURE 4:30 PM NODULIZER URINALYSIS DIPSTICK Routine 10/10/2018 REFLEX TO CULTURE 4:30 PM NODULIZER OPIATES 300 OR Routine 10/10/2018 GREATER-URINE RANDOM 4:30 PM NODULIZER METHADONE-URINE SCREEN Routine 10/10/2018 4:30 PM NODULIZER PHENCYCLIDINES-URINE Routine 10/10/2018 RANDOM 4:30 PM NODULIZER OXYCODONE URINE SCREEN Routine 10/10/2018 4:30 PM NODULIZER COCAINE-URINE RANDOM Routine 10/10/2018 4:30 PM NODULIZER CANNABINOIDS-URINE RANDOM Routine 10/10/2018 4:30 PM NODULIZER BENZODIAZEPINES-URINE Routine 10/10/2018 RANDOM 4:30 PM NODULIZER BARBITURATES-URINE RANDOM Routine 10/10/2018 4:30 PM NODULIZER AMPHETAMINES-URINE RANDOM Routine 10/10/2018 4:30 PM NODULIZER POC GLUCOSE 10/10/2018 1:44 PM NODULIZER POC GLUCOSE 10/10/2018 9:11 AM NODULIZER C DIFFICILE BY PCR Routine 10/10/2018 4:55 AM NODULIZER LEUKOCYTES, FECAL Routine 10/10/2018 4:55 AM NODULIZER CULTURE-FECES Routine 10/10/2018 W/SENSITIVITY 4:55 AM NODULIZER CRYPTOSPORIDUM,FECAL Routine 10/10/2018 4:55 AM NODULIZER POC GLUCOSE 10/10/2018 3:39 AM NODULIZER POC GLUCOSE 10/10/2018 3:16 AM NODULIZER CBC AND DIFF Routine 10/10/2018 2:07 AM NODULIZER MAGNESIUM Routine 10/10/2018 2:07 AM NODULIZER COMPREHENSIVE METABOLIC Routine 10/10/2018 PANEL 2:07 AM NODULIZER POC GLUCOSE 10/09/2018 8:29 PM NODULIZER POC GLUCOSE 10/09/2018 5:30 PM NODULIZER CBC AND DIFF STAT 10/09/2018 10:57 AM NODULIZER COMPREHENSIVE METABOLIC STAT 10/09/2018 PANEL 10:57 AM NODULIZER in this encounter Results * POC GLUCOSE (10/12/2018 11:28 AM NODULIZER) Glucose, POC 117 (H) 70 - 100 MG/DL [facility] Performing Organization Address City/[facility]/Zipcode Phone Number MAIN LAB [address] [place] [address] * POC GLUCOSE (10/12/2018 10:47 AM NODULIZER) Glucose, POC 160 (H) 70 - 100 MG/DL [facility] Performing Organization Address City/[facility]/Zipcode Phone Number [facility] [address] [place] [address] * POC GLUCOSE (10/12/2018 7:28 AM NODULIZER) Glucose, POC 351 (H) 70 - 100 MG/DL [facility] Performing Organization Address City/[facility]/Zipcode Phone Number [facility] [address] [place] [address] * POC GLUCOSE (10/12/2018 3:06 AM NODULIZER) Glucose, POC 360 (H) 70 - 100 MG/DL [facility] Performing Organization Address City/[facility]/Zipcode Phone Number MAIN LAB [address] [place] [address] * MAGNESIUM (10/12/2018 3:00 AM NODULIZER) Magnesium 2.0 1.6 - 2.6 mg/dL [facility] Performing Organization Address City/[facility]/Zipcode Phone Number MAIN LAB [address] [place] [address] * COMPREHENSIVE METABOLIC PANEL (10/12/2018 3:00 AM NODULIZER) Sodium 137 137 - 147 MMOL/L [facility] Potassium 4.2 3.5 - 5.1 MMOL/L [facility] Chloride 102 98 - 110 MMOL/L [facility] Glucose 401 (H) 70 - 100 MG/DL [facility] Blood Urea Nitrogen 9 7 - 25 MG/DL [facility] Creatinine 0.85 0.4 - 1.00 MG/DL [facility] Calcium 8.9 8.5 - 10.6 MG/DL [facility] Total Protein 5.8 (L) 6.0 - 8.0 G/DL [facility] Total Bilirubin 0.3 0.3 - 1.2 MG/DL [facility] Albumin 3.5 3.5 - 5.0 G/DL [facility] Alk Phosphatase 91 25 - 110 U/L [facility] AST (SGOT) 21 7 - 40 U/L [facility] CO2 29 21 - 30 MMOL/L [facility] ALT (SGPT) 25 7 - 56 U/L [facility] [...] text.Please contact the Clinical Pharmacist for questions. Performing Organization Address City/State/Zipcode Phone Number [facility] [address] [place] [address] * CBC AND DIFF (10/12/2018 3:00 AM NODULIZER) White Blood Cells 9.0 4.5 - 11.0 K/UL [facility] RBC 3.99 (L) 4.0 - 5.0 M/UL [facility] Hemoglobin 11.7 (L) 12.0 - 15.0 GM/DL [facility] Hematocrit 36.3 36 - 45 % [facility] MCV 90.9 80 - 100 FL [facility] MCH 29.4 26 - 34 PG [facility] MCHC 32.3 32.0 - 36.0 G/DL [facility] RDW 17.4 (H) 11 - 15 % [facility] Platelet Count 178 150 - 400 K/UL [facility] MPV 8.4 7 - 11 FL [facility] Neutrophils 31 (L) 41 - 77 % [facility] Lymphocytes 52 (H) 24 - 44 % [facility] Monocytes 8 4 - 12 % [facility] Eosinophils 8 (H) 0 - 5 % [facility] Basophils 1 0 - 2 % [facility] Absolute Neutrophil Count 2.80 1.8 - 7.0 K/UL [facility] Absolute Lymph Count 4.80 1.0 - 4.8 K/UL [facility] Absolute Monocyte Count 0.70 0 - 0.80 K/UL [facility] Absolute Eosinophil Count 0.70 (H) 0 - 0.45 K/UL [facility] Absolute Basophil Count 0.00 0 - 0.20 K/UL [facility] Performing Organization Address City/[facility] Phone Number [facility] [address] [place] [address] * POC GLUCOSE (10/11/2018 8:57 PM NODULIZER) Glucose, POC 174 (H) 70 - 100 MG/DL [facility]IN [facility] Performing Organization Address City/[facility] Phone Number [facility] [address] [place] [address] * POC GLUCOSE (10/11/2018 5:16 PM NODULIZER) Glucose, POC 271 (H) 70 - 100 MG/DL [facility]IN [facility] Performing Organization Address [facility] [place] Phone Number [facility] [address] [place] [address] * CTA ABD/PELVIS (10/11/2018 2:18 PM NODULIZER) Impressions Performed At 1. Stable CT scan [...] Interface, Radiant Results - 10/12/2018 8:03 AM NODULIZER CTA of the abdomen and pelvis Clinical [...] on 10/12/2018 7:52 AM. Performing Organization Address City/[facility]/Zipcode Phone Number RAD RESULTS * POC GLUCOSE (10/11/2018 12:28 PM NODULIZER) Glucose, POC 137 (H) 70 - 100 MG/DL [facility]IN [facility] Performing Organization Address City/[facility]/Zipcode Phone Number MAIN LAB [address] [place] [address] * ELECTROPHORESIS-SERUM PROTEIN (10/11/2018 11:25 AM NODULIZER) Total Protein-SEP 5.5 (L) 6.0 - 8.0 G/DL [facility] Albumin % 61.0 48 - 68 % [facility] Alpha 1 % 5.0 2 - 6 % [facility] Alpha 2 % 12.5 5 - 15 % [facility] Beta %,Serum 10.3 9 - 17 % [facility] Gamma % 11.2 9 - 21 % [facility] Interpretation - SEP HYPOALBUMINEMIA [facility] Pathologist Signature INTERPRETED BY [facility] Adam By the PATH SIGNATURE ABOVE, I attest that I have personally formulated the final interpretation expressed in this report and that the above diagnosis is based upon my examination of the slides and/or other material indicated in this report. Specimen Blood Performing Organization Address City/State/Zipcode Phone Number MAIN LAB [address] [place] [address] * POC GLUCOSE (10/11/2018 8:14 AM NODULIZER) Glucose, POC 293 (H) 70 - 100 MG/DL [facility] Performing Organization Address City/[facility] Phone Number MAIN LAB [address] [place] [address] * POC GLUCOSE (10/11/2018 6:14 AM NODULIZER) Glucose, POC 82 70 - 100 MG/DL [facility] MAIN [facility] Performing Organization Address City/[facility] Phone Number MAIN LAB [address] [place] [address] * POC GLUCOSE (10/11/2018 6:03 AM NODULIZER) Glucose, POC 64 (L) 70 - 100 MG/DL [facility] Performing Organization Address City/[facility] Phone Number MA[facility] [address] [place] [address] * LIPASE (10/11/2018 2:00 AM NODULIZER) Lipase 14 11 - 82 U/L [facility] MAIN [facility] Performing Organization Address City/[facility]/Zipcode Phone Number MAIN LAB [address] [place] [address] * MAGNESIUM (10/11/2018 2:00 AM NODULIZER) Magnesium 1.8 1.6 - 2.6 mg/dL [facility] Performing Organization Address City/[facility]/[place] Phone Number MAIN LAB [address] [place] [address] * COMPREHENSIVE METABOLIC PANEL (10/11/2018 2:00 AM NODULIZER) Sodium 139 137 - 147 MMOL/L [facility] Potassium 3.6 3.5 - 5.1 MMOL/L [facility] Chloride 105 98 - 110 MMOL/L [facility] Glucose 133 (H) 70 - 100 MG/DL [facility] [...] 5.0 G/DL [facility] Alk Phosphatase 81 25 - 110 U/L [facility] [...] text.Please contact the Clinical Pharmacist for questions. Performing Organization Address City/State/Zipcode Phone Number MAIN LAB [address] [place] [address] * CBC AND DIFF (10/11/2018 2:00 AM NODULIZER) White Blood Cells 7.5 4.5 - 11.0 K/UL [facility] RBC 3.70 (L) 4.0 - 5.0 M/UL [facility] Hemoglobin 10.8 (L) 12.0 - 15.0 GM/DL [facility] Hematocrit 33.0 (L) 36 - 45 % [facility] MCV 89.1 80 - 100 FL [facility] MCH 29.2 26 - 34 PG [facility] MCHC 32.8 32.0 - 36.0 G/DL [facility] RDW 17.4 (H) 11 - 15 % [facility] Platelet Count 193 150 - 400 K/UL [facility] MPV 8.0 7 - 11 FL [facility] Neutrophils 23 (L) 41 - 77 % [facility] Lymphocytes 63 (H) 24 - 44 % [facility] Monocytes 6 4 - 12 % [facility] Eosinophils 8 (H) 0 - 5 % [facility] Basophils 0 0 - 2 % [facility] Absolute Neutrophil Count 1.70 (L) 1.8 - 7.0 K/UL [facility] Absolute Lymph Count 4.70 1.0 - 4.8 K/UL [facility] Absolute Monocyte Count 0.40 0 - 0.80 K/UL [facility] Absolute Eosinophil Count 0.60 (H) 0 - 0.45 K/UL [facility] Absolute Basophil Count 0.00 0 - 0.20 K/UL [facility] Performing Organization Address City/[facility] [place] Phone Number [facility] [address] [place] [address] * POC GLUCOSE (10/10/2018 8:06 PM NODULIZER) Glucose, POC 254 (H) 70 - 100 MG/DL [facility] Performing Organization Address City/[facility] [place] Phone Number [facility] [address] [place] [address] * POC GLUCOSE (10/10/2018 5:04 PM NODULIZER) Glucose, POC 200 (H) 70 - 100 MG/DL [facility] Performing Organization Address [facility] [place] Phone Number MAIN LAB [address] [place] [address] * UA REFLEX CULTURE LABEL (10/10/2018 4:30 PM NODULIZER) UA Reflex Culture LAB LABEL [facility] Specimen Urine Performing Organization Address City/[facility] Phone Number MAIN LAB [address] [place] [address] * URINALYSIS MICROSCOPIC REFLEX TO CULTURE (10/10/2018 4:30 PM NODULIZER) WBCs,UA 0-2 0 - 2 /HPF [facility] RBCs,UA 0-2 0 - 3 /HPF [facility] Comment,UA Urine submitted for reflex [facility] culture if criteria are met:WBC>10, positive nitrite and/or >=1+ leukocyte esterase. If quantity is not sufficient, an addendum will follow. MucousUA TRACE [facility] Bacteria,UA FEW (A) NEG-NEG [facility] Squamous Epithelial Cells 0-2 0 - 5 [facility] Specimen Urine Performing Organization Address [facility] Phone Number MAIN LAB [address] [place] [address] * URINALYSIS DIPSTICK REFLEX TO CULTURE (10/10/2018 4:30 PM NODULIZER) Color,UA YELLOW [facility] Turbidity,UA CLEAR CLEAR-CLEAR [facility] Specific [place]-Urine 1.009 1.003 - 1.035 [facility] pH,UA 7.0 5.0 - 8.0 [facility] Protein,UA NEG NEG-NEG [facility] Glucose,UA 2+ (A) NEG-NEG [facility] Ketones,UA NEG NEG-NEG [facility] Bilirubin,UA NEG NEG-NEG [facility] Blood,UA NEG NEG-NEG [facility] Urobilinogen,UA NORMAL NORM-NORMAL [facility] Nitrite,UA NEG NEG-NEG [facility] Leukocytes,UA NEG NEG-NEG [facility] Urine Ascorbic Acid, UA NEG NEG-NEG [facility] Specimen Urine Performing Organization [facility] Phone Number MAIN LAB [address] [place] [address] * OPIATES 300 OR GREATER-URINE RANDOM (10/10/2018 4:30 PM NODULIZER) Opiates 300 NEG NEG-NEG MAIN LAB Comment: RESULTS WERE OBTAINED BY IMMUNOASSAY AND ARE PRESUMPTIVE ONLY. POSITIVE INDICATES THE PRESENCE OF SUBSTANCE WITH CHARACTERISTICS SIMILAR TO DRUG-DRUG CLASS OR METABOLITE IN CONC. EQUAL TO OR EXCEEDING VALUES LISTED. OPIATES 300 NG/ML Specimen Urine Performing Organization Address [facility] Phone Number MAIN LAB [address] [place] [address] * OXYCODONE URINE SCREEN (10/10/2018 4:30 PM NODULIZER) Oxycodone, Urine NEG NEG-NEG MAIN LAB Comment: RESULTS WERE OBTAINED BY IMMUNOASSAY AND ARE PRESUMPTIVE ONLY. POSITIVE INDICATES THE PRESENCE OF SUBSTANCE WITH CHARACTERISTICS SIMILAR TO DRUG-DRUG CLASS OR METABOLITE IN CONC. EQUAL TO OR EXCEEDING VALUES LISTED. OXYCODONE 300 NG/ML Specimen Urine - Urine Performing Organization Address [facility] Phone Number MAIN LAB [address] [place] [address] * METHADONE-URINE SCREEN (10/10/2018 4:30 PM NODULIZER) Methadone NEG NEG-NEG MAIN LAB Comment: RESULTS WERE OBTAINED BY IMMUNOASSAY AND ARE PRESUMPTIVE ONLY. POSITIVE INDICATES THE PRESENCE OF SUBSTANCE WITH CHARACTERISTICS SIMILAR TO DRUG-DRUG CLASS OR METABOLITE IN CONC. EQUAL TO OR EXCEEDING VALUES LISTED. METHADONE 300 NG/ML Specimen Urine Performing Organization Address [facility] Phone Number [facility] [address] [place] [address] * PHENCYCLIDINES-URINE RANDOM (10/10/2018 4:30 PM NODULIZER) Phencyclidine (PCP) NEG NEG-NEG MAIN LAB Comment: RESULTS WERE OBTAINED BY IMMUNOASSAY AND ARE PRESUMPTIVE ONLY. POSITIVE INDICATES THE PRESENCE OF SUBSTANCE WITH CHARACTERISTICS SIMILAR TO DRUG-DRUG CLASS OR METABOLITE IN CONC. EQUAL TO OR EXCEEDING VALUES LISTED. PHENCYCLIDINE (PCP)25 NG/ML Specimen Urine - Urine Performing Organization Address [facility] Phone Number MAIN LAB [address] [place] [address] * COCAINE-URINE RANDOM (10/10/2018 4:30 PM NODULIZER) Cocaine-Urine NEG NEG-NEG MAIN LAB Comment: RESULTS WERE OBTAINED BY IMMUNOASSAY AND ARE PRESUMPTIVE ONLY. POSITIVE INDICATES THE PRESENCE OF SUBSTANCE WITH CHARACTERISTICS SIMILAR TO DRUG-DRUG CLASS OR METABOLITE IN CONC. EQUAL TO OR EXCEEDING VALUES LISTED. COCAINE 300 NG/ML Specimen Urine - Urine Performing Organization Address [facility] Phone Number [facility] [address] [place] [address] * CANNABINOIDS-URINE RANDOM (10/10/2018 4:30 PM NODULIZER) THC NEG NEG-NEG MAIN LAB Comment: RESULTS WERE OBTAINED BY IMMUNOASSAY AND ARE PRESUMPTIVE ONLY. POSITIVE INDICATES THE PRESENCE OF SUBSTANCE WITH CHARACTERISTICS SIMILAR TO DRUG-DRUG CLASS OR METABOLITE IN CONC. EQUAL TO OR EXCEEDING VALUES LISTED. CANNABINOIDS 50 NG/ML Specimen Urine - Urine Performing Organization Address [facility] Phone Number MAIN LAB [address] [place] [address] * BENZODIAZEPINES-URINE RANDOM (10/10/2018 4:30 PM NODULIZER) Benzodiazepines POS (A) NEG-NEG MAIN LAB Comment: RESULTS WERE OBTAINED BY IMMUNOASSAY AND ARE PRESUMPTIVE ONLY. POSITIVE INDICATES THE PRESENCE OF SUBSTANCE WITH CHARACTERISTICS SIMILAR TO DRUG-DRUG CLASS OR METABOLITE IN CONC. EQUAL TO OR EXCEEDING VALUES LISTED. BENZODIAZEPINES 200 NG/ML Specimen Urine - Urine Performing Organization Address [facility] Phone Number [facility] MA[facility] [address] [place] [address] * BARBITURATES-URINE RANDOM (10/10/2018 4:30 PM NODULIZER) Barbiturates,Urine NEG NEG-NEG MAIN LAB Comment: RESULTS WERE OBTAINED BY IMMUNOASSAY AND ARE PRESUMPTIVE ONLY. POSITIVE INDICATES THE PRESENCE OF SUBSTANCE WITH CHARACTERISTICS SIMILAR TO DRUG-DRUG CLASS OR METABOLITE IN CONC. EQUAL TO OR EXCEEDING VALUES LISTED. BARBITURATES 200 NG/ML Specimen Urine - Urine Performing Organization Address [facility] Phone Number MAIN LAB [address] [place] [address] * AMPHETAMINES-URINE RANDOM (10/10/2018 4:30 PM NODULIZER) Amphetamines POS (A) NEG-NEG MAIN LAB Comment: RESULTS WERE OBTAINED BY IMMUNOASSAY AND ARE PRESUMPTIVE ONLY. POSITIVE INDICATES THE PRESENCE OF SUBSTANCE WITH CHARACTERISTICS SIMILAR TO DRUG-DRUG CLASS OR METABOLITE IN CONC. EQUAL TO OR EXCEEDING VALUES LISTED. AMPHETAMINES 1000 NG/ML Specimen Urine - Urine Performing Organization Address [facility] Phone Number MAIN LAB [address] [place] [address] * POC GLUCOSE (10/10/2018 1:44 PM NODULIZER) Glucose, POC 284 (H) 70 - 100 MG/DL [facility] MAIN LAB Performing Organization Address [facility] Phone Number [facility] MAIN LAB [address] [place] [address] * POC GLUCOSE (10/10/2018 9:11 AM NODULIZER) Glucose, POC 283 (H) 70 - 100 MG/DL [facility] MAIN LAB Performing Organization Address [facility] Phone Number MAIN LAB [address] [place] [address] * CRYPTOSPORIDUM,FECAL (10/10/2018 4:55 AM NODULIZER) Battery Name CRYPTOSPORIDIUM MAIN LAB Specimen Description FECES MAIN LAB Special Requests NONE MAIN LAB Cryptosporidium NEGATIVE FOR CRYPTOSPORIDIUM MAIN LAB Report Status FINAL MAIN LAB 10/10/2018 Specimen Stool - Feces Performing Organization Address [facility] Phone Number MAIN LAB [address] [place] [address] * LEUKOCYTES, FECAL (10/10/2018 4:55 AM NODULIZER) Battery Name FECAL LEUKOCYTES MAIN LAB Specimen Description FECES [facility] MAIN LAB Special Requests NONE MAIN LAB Fecal Leukocytes NEGATIVE BY LACTOFERRIN [facility] MAIN LAB Report Status FINAL MAIN LAB 10/10/2018 Specimen Stool - Feces Performing Organization Address [facility] Phone Number MAIN LAB [address] [place] [address] * C DIFFICILE BY PCR (10/10/2018 4:55 AM NODULIZER) Battery Name C DIFFICILE PCR MAIN LAB Specimen Description FECES MAIN LAB Special Requests NONE MAIN LAB C. Difficile Toxin B PCR NEGATIVE-wait 7 days to repeat MAIN LAB test Report Status FINAL MAIN LAB 10/10/2018 Specimen Feces Performing Organization Address [facility] Phone Number MAIN LAB [address] [place] [address] * CULTURE-FECES W/SENSITIVITY (10/10/2018 4:55 AM NODULIZER) Battery Name STOOL CULTURE MAIN LAB Specimen Description FECES MAIN LAB Special Requests NONE MAIN LAB Culture NO SALMONELLA, SHIGELLA, MAIN LAB CAMPYLOBACTER, AEROMONAS, OR PLESIOMONAS SHIGA TOXIN NOT DETECTED Report Status FINAL MAIN LAB 10/13/2018 Specimen Stool - Feces Performing Organization Address [facility] Phone Number MAIN LAB [address] [place] [address] * POC GLUCOSE (10/10/2018 3:39 AM NODULIZER) Glucose, POC 138 (H) 70 - 100 MG/DL MAIN LAB Performing Organization Address [facility] Phone Number MAIN LAB [address] [place] [address] * POC GLUCOSE (10/10/2018 3:16 AM NODULIZER) Glucose, POC 69 (L) 70 - 100 MG/DL MAIN LAB Performing Organization Address [facility] Phone Number MAIN LAB [address] [place] [address] * MAGNESIUM (10/10/2018 2:07 AM NODULIZER) Magnesium 1.9 1.6 - 2.6 mg/dL [facility] MAIN LAB Performing Organization Address [facility]/Zipcode Phone Number [facility] MAIN LAB [address] [place] [address] * COMPREHENSIVE METABOLIC PANEL (10/10/2018 2:07 AM NODULIZER) Sodium 139 137 - 147 MMOL/L [facility] MAIN LAB Potassium 3.5 3.5 - 5.1 MMOL/L [facility] MAIN LAB Chloride 107 98 - 110 MMOL/L [facility] MAIN LAB Glucose 57 (L) 70 - 100 MG/DL [facility] MAIN LAB Blood Urea Nitrogen 12 7 - 25 MG/DL [facility] MAIN LAB Creatinine 0.83 0.4 - 1.00 MG/DL [facility] MAIN LAB Calcium 8.2 (L) 8.5 - 10.6 MG/DL [facility] MAIN LAB Total Protein 4.9 (L) 6.0 - 8.0 G/DL [facility] MAIN LAB Total Bilirubin 0.2 (L) 0.3 - 1.2 MG/DL [facility] MAIN LAB Albumin 3.1 (L) 3.5 - 5.0 G/DL [facility] MAIN LAB Alk Phosphatase 80 25 - 110 U/L [facility] MAIN LAB AST (SGOT) 25 7 - 40 U/L [facility] MAIN LAB CO2 29 21 - 30 MMOL/L [facility] MAIN [facility] ALT (SGPT) 21 7 - 56 U/L [facility] MAIN LAB [...] text.Please contact the Clinical Pharmacist for questions. Performing Organization Address City/State/Zipcode Phone Number [facility] MAIN LAB [address] [place] [address] * CBC AND DIFF (10/10/2018 2:07 AM NODULIZER) White Blood Cells 6.3 4.5 - 11.0 K/UL [facility] MAIN LAB RBC 3.62 (L) 4.0 - 5.0 M/UL [facility] MAIN LAB Hemoglobin 10.6 (L) 12.0 - 15.0 GM/DL [facility] MAIN LAB Hematocrit 32.6 (L) 36 - 45 % [facility] MAIN LAB MCV 90.2 80 - 100 FL [facility] MAIN LAB MCH 29.4 26 - 34 PG [facility] MAIN LAB MCHC 32.6 32.0 - 36.0 G/DL [facility] MAIN LAB RDW 17.7 (H) 11 - 15 % [facility] MAIN [facility] Platelet Count 157 150 - 400 K/UL [facility] MAIN LAB MPV 7.8 7 - 11 FL [facility] MAIN LAB Neutrophils 18 (L) 41 - 77 % [facility] MAIN [facility] Lymphocytes 70 (H) 24 - 44 % [facility] MAIN [facility] Monocytes 6 4 - 12 % [facility] MAIN [facility] Eosinophils 5 0 - 5 % [facility] MAIN [facility] Basophils 1 0 - 2 % [facility] MAIN [facility] Absolute Neutrophil Count 1.10 (L) 1.8 - 7.0 K/UL [facility] MAIN [facility] Absolute Lymph Count 4.40 1.0 - 4.8 K/UL [facility] MAIN [facility] Absolute Monocyte Count 0.40 0 - 0.80 K/UL [facility] MAIN [facility] Absolute Eosinophil Count 0.30 0 - 0.45 K/UL [facility] MAIN [facility] Absolute Basophil Count 0.00 0 - 0.20 K/UL [facility] MAIN LAB Performing Organization Address City/[facility] Phone Number MAIN LAB [address] [place] [address] * POC GLUCOSE (10/09/2018 8:29 PM NODULIZER) Glucose, POC 167 (H) 70 - 100 MG/DL [facility] MAIN LAB Performing Organization Address City/[facility] Phone Number MAIN LAB [address] [place] [address] * POC GLUCOSE (10/09/2018 5:30 PM NODULIZER) Glucose, POC 83 70 - 100 MG/DL [facility] MAIN LAB Performing Organization Address [facility] Phone Number MAIN LAB [address] [place] [address] * COMPREHENSIVE METABOLIC PANEL (10/09/2018 10:57 AM NODULIZER) Sodium 138 137 - 147 MMOL/L [facility] MAIN LAB Potassium 4.0 3.5 - 5.1 MMOL/L [facility] MAIN [facility] Chloride 104 98 - 110 MMOL/L [facility] MAIN LAB Glucose 139 (H) 70 - 100 MG/DL [facility] MAIN LAB Blood Urea Nitrogen 17 7 - 25 MG/DL [facility] MAIN LAB Creatinine 0.92 0.4 - 1.00 MG/DL [facility] MAIN LAB Calcium 8.4 (L) 8.5 - 10.6 MG/DL [facility] MAIN [facility] Total Protein 5.2 (L) 6.0 - 8.0 G/DL [facility] MAIN LAB Total Bilirubin 0.2 (L) 0.3 - 1.2 MG/DL [facility] MAIN LAB Albumin 3.2 (L) 3.5 - 5.0 G/DL [facility] MAIN LAB Alk Phosphatase 82 25 - 110 U/L [facility] MAIN LAB [...] City/State/Zipcode Phone Number [facility] MAIN [facility] [address] [place] [address] * CBC AND DIFF (10/09/2018 10:57 AM NODULIZER) White Blood Cells 6.6 4.5 - 11.0 K/UL [facility] MAIN LAB RBC 3.58 (L) 4.0 - 5.0 M/UL [facility] MAIN LAB Hemoglobin 10.5 (L) 12.0 - 15.0 GM/DL [facility] MAIN LAB Hematocrit 31.7 (L) 36 - 45 % [facility] MAIN [facility] MCV 88.7 80 - 100 FL [facility] MAIN LAB MCH 29.4 26 - 34 PG [facility] MAIN [facility] MCHC 33.1 32.0 - 36.0 G/DL [facility] MAIN LAB RDW 17.7 (H) 11 - 15 % [facility] MAIN LAB Platelet Count 186 150 - 400 K/UL [facility] MAIN LAB MPV 8.2 7 - 11 FL [facility] MAIN [facility] Neutrophils 47 41 - 77 % [facility] MAIN [facility] Lymphocytes 41 24 - 44 % [facility] MAIN [facility] Monocytes 6 4 - 12 % [facility] MAIN [facility] Eosinophils 5 0 - 5 % [facility] MAIN [facility] Basophils 1 0 - 2 % [facility] MAIN [facility] Absolute Neutrophil Count 3.20 1.8 - 7.0 K/UL [facility] MAIN [facility] Absolute Lymph Count 2.70 1.0 - 4.8 K/UL [facility] MAIN [facility] Absolute Monocyte Count 0.40 0 - 0.80 K/UL [facility] MAIN [facility] Absolute Eosinophil Count 0.30 0 - 0.45 K/UL [facility] MAIN LAB Absolute Basophil Count 0.00 0 - 0.20 K/UL [facility] MAIN LAB Specimen Blood Performing Organization Address City/State/Zipcode Phone Number MAIN LAB [address] [place] [address] in this encounter Visit Diagnoses Diagnosis Diarrhea, unspecified type - Primary Adjustment disorder with mixed anxiety and depressed mood Chronic abdominal pain Abdominal pain, unspecified site CLL (chronic lymphocytic leukemia) (HCC) Chronic lymphoid leukemia, without mention of having achieved remission Hypotension Hypotension, unspecified in this encounter Admitting Diagnoses Diagnosis Diarrhea Hypotension Hypotension, unspecified in this encounter Administered Medications Action Date Dose Rate Site Medication Order MAR Action 10/12/2018 12:23 AM NODULIZER 650 mg acetaminophen (TYLENOL) tablet 650 mg Given 650 mg, Oral, EVERY 4 HOURS PRN, Starting Varsha 10/10/18 at 1012, Until 10/12/18 at 1307, Pain non-opioid: may be used alone or in combination with opioid analgesia, TOTAL ACETAMINOPHEN DOSE NOT TO EXCEED 4GM DAILY, 650 mg Given 10/11/2018 9:19 AM NODULIZER 650 mg Given 10/10/2018 4:47 PM NODULIZER 10/12/2018 9:03 AM NODULIZER 30 mL acetaminophen/lidocaine/antacid DS(#) Given (GI COCKTAIL) 1:1:3 suspension 30 mL 30 mL, Oral, FOUR TIMES DAILY PRN, Starting 10/09/18 at 1649, Until 10/12/18 at 1307, Indigestion/Heartburn, 30mL (1:1:3)=192mg/6mL acetamin-6mL 2% vis lidocaine-18mL Antacid DS, 30 mL Given 10/12/2018 6:37 AM NODULIZER 30 mL Given 10/11/2018 9:45 PM NODULIZER 10/09/2018 3:34 PM NODULIZER 30 mL acetaminophen/lidocaine/antacid DS(#) Given (GI COCKTAIL) 1:1:3 suspension 30 mL 30 mL, Oral, ONCE, 1 dose, Sun10/09/18 at 1545, 30mL (1:1:3)=192mg/6mL acetamin-6mL 2% vis lidocaine-18mL Antacid DS, 10/12/2018 10:32 AM NODULIZER 1 mg ALPRAZolam (XANAX) tablet 1 mg Given 1 mg, Oral, TWICE DAILY PRN, Starting Sun10/09/18 at 1649, Until 10/12/18 at 1307, Anxiety PO 1 mg Given 10/12/2018 12:23 AM NODULIZER 1 mg Given 10/11/2018 11:26 AM NODULIZER 10/12/2018 8:50 AM NODULIZER 40 mg atorvastatin (LIPITOR) tablet 40 mg Given 40 mg, Oral, DAILY, First dose on Sun10/10/18 at 0900, Until Discontinued 40 mg Given 10/11/2018 9:19 AM NODULIZER 40 mg Given 10/10/2018 9:04 AM NODULIZER 10/12/2018 8:50 AM NODULIZER 400 mg carBAMazepine (TEGRETOL) tablet 400 mg Given 400 mg, Oral, DAILY, First dose on Sun10/09/18 at 1830, Until Discontinued 400 mg Given 10/11/2018 9:19 AM NODULIZER 400 mg Given 10/10/2018 9:04 AM NODULIZER 10/12/2018 8:50 AM NODULIZER 10 mg cetirizine (ZYRTEC) tablet 10 mg Given 10 mg, Oral, EVERY MORNING, First dose on Sun10/10/18 at 0800, Until Discontinued 10 mg Given 10/11/2018 9:19 AM NODULIZER 10 mg Given 10/10/2018 9:03 AM NODULIZER 10/12/2018 10:32 AM NODULIZER 10 mg dicyclomine (BENTYL) capsule 10 mg Given 10 mg, Oral, BEFORE MEALS AND AT BEDTIME, First dose on Sun10/10/18 at 1015, Until Discontinued 10 mg Given 10/12/2018 6:30 AM NODULIZER 10 mg Given 10/11/2018 9:12 PM NODULIZER 10/12/2018 8:50 AM NODULIZER [address] (CYMBALTA) capsule 90 mg Given 90 mg, Oral, DAILY, First dose on Sun10/10/18 at 0900, Until Discontinued 90 mg Given 10/11/2018 9:19 AM NODULIZER 90 mg Given 10/10/2018 9:03 AM NODULIZER 10/11/2018 9:12 PM NODULIZER 40 mg Arm, Right enoxaparin (LOVENOX) syringe 40 mg Given 40 mg, Subcutaneous, DAILY, First dose on Sun10/09/18 at 2100, Until Discontinued, For patients undergoing surgery: Consult physician in advance -- enoxaparin is an anticoagulant and may need to be held for 12hr prior to surgery or invasive procedures. NOTE: This is a HIGH ALERT Medication., 40 mg Abdomen:LLQ Given 10/10/2018 8:02 PM NODULIZER 40 mg Abdomen:LLQ Given 10/09/2018 8:23 PM NODULIZER 10/12/2018 8:50 AM NODULIZER 0.3 mg fludrocortisone (FLORINEF) tablet 0.3 mg Given 0.3 mg, Oral, DAILY, First dose on Sun10/10/18 at 0900, Until Discontinued 0.3 mg Given 10/11/2018 9:18 AM NODULIZER 0.3 mg Given 10/10/2018 9:04 AM NODULIZER 10/10/2018 9:04 AM NODULIZER 1 spray fluticasone (FLONASE) nasal spray 1 Given spray 1 spray, Each Nostril, DAILY, First dose on Sun10/10/18 at 0900, Until Discontinued 10/12/2018 10:42 AM NODULIZER 500 Units heparin lock flush PF syringe 500 Units Given 500 Units, Intra-catheter, ONCE PRN, 1 dose, Starting 10/12/18 at 1025, Until 10/12/18 at 1042, Catheter flush, When de-accessing a port-a-cath pack with 5 mL heparin (100 units/mL) unless contraindicated. NOTE: This is a HIGH ALERT Medication., 10/12/2018 8:50 AM NODULIZER 200 mg hydroxychloroquine (PLAQUENIL) tablet Given 200 mg 200 mg, Oral, DAILY, First dose on Sun10/10/18 at 0900, Until Discontinued 200 mg Given 10/11/2018 9:19 AM NODULIZER 200 mg Given 10/10/2018 9:03 AM NODULIZER 10/12/2018 10:48 AM NODULIZER 1 Units Abdominal Tissue insulin aspart U-100 (NOVOLOG FLEXPEN) Given injection PEN 0-7 Units 0-7 Units, Subcutaneous, BEFORE MEALS AND AT BEDTIME, First dose on Sun10/10/18 at 1700, Until Discontinued, -POC glucose 140-180mg/dL at 07, 11, 17 administer 1 unit insulin, at 21, 03* administer 0 units. -POC glucose 181-220mg/dL at 07, 11, administer 2 units insulin, at , * administer 1 unit. -POC glucose 221-260mg/dL at administer 3 units insulin, at , * administer 2 units. -POC glucose 261-300mg/dL at , administer 4 units insulin, at , [...] request. DO NOT uncheck "Do not dispense", 6 Units Abdominal Tissue Given 10/12/2018 8:16 AM NODULIZER 4 Units Arm, Left Given 10/11/2018 5:25 PM NODULIZER 10/12/2018 10:48 AM NODULIZER 8 Units Abdominal Tissue insulin aspart U-100 (NOVOLOG FLEXPEN) Given injection PEN 8 Units 8 Units, Subcutaneous, THREE TIMES DAILY WITH MEALS, First dose on Sun10/09/18 at 1800, Until Discontinued, NOTE: This is a HIGH ALERT Medication., 8 Units Abdominal Tissue Given 10/12/2018 8:16 AM NODULIZER 8 Units Arm, Left Given 10/11/2018 5:25 PM NODULIZER 10/11/2018 9:15 PM NODULIZER 13 Units Arm, Right insulin glargine (LANTUS SOLOSTAR, Given BASAGLAR) injection PEN 13 Units 13 Units, Subcutaneous, AT BEDTIME DAILY, First dose on Sun10/11/18 at 2100, Until Discontinued, -- Do not mix with other insulins -- NOTE: This is a HIGH ALERT Medication., 10/10/2018 8:07 PM NODULIZER 15 Units Abdomen:LLQ insulin glargine (LANTUS SOLOSTAR, Given BASAGLAR) injection PEN 15 Units 15 Units, Subcutaneous, AT BEDTIME DAILY, First dose on Sun10/09/18 at 2100, Until Discontinued, -- Do not mix with other insulins -- NOTE: This is a HIGH ALERT Medication., 15 Units Abdomen:LLQ Given 10/09/2018 8:29 PM NODULIZER 10/11/2018 2:30 PM NODULIZER 80 mL iopamidol 370 (ISOVUE-370) injection 80 Given mL 80 mL, Intravenous, ONCE, 1 dose, Sun10/11/18 at 1430, NOTE: This is a HIGH ALERT Medication., 10/12/2018 8:50 AM NODULIZER 300 mg 77 mL/hr iron sucrose (VENOFER) 300 mg in sodium Given - New chloride 0.9% (NS) IVPB Bag 300 mg, Intravenous, 115 mL, Administer over 90 Minutes, DAILY, 2 doses, First dose on Sun10/11/18 at 1300, Last dose on Sun10/12/18 at 0900 300 mg 77 mL/hr Given - New Bag 10/11/2018 2:49 PM NODULIZER 10/09/2018 11:57 AM NODULIZER 1,000 mL lactated ringers infusion Given - New 1,000 mL, 1,000 mL, Intravenous, Bag CONTINUOUS, Starting Sun10/09/18 at 1200, Until Sun10/09/18 at 1208 10/09/2018 5:32 PM NODULIZER 1,500 mL 100 mL/hr lactated ringers infusion Given - New 2,000 mL, 1,500 mL, Intravenous, at 100 Bag mL/hr, ONCE, 1 dose, Sun10/09/18 at 1730 LACTATED RINGERS IV SOLP (Cabinet Override) NOW, 1 dose, Sun10/09/18 at 1200, Created by cabinet override, Created by cabinet override, 10/12/2018 6:30 AM NODULIZER 175 mcg levothyroxine (SYNTHROID) tablet 175 mcg Given 175 mcg, Oral, DAILY 30MIN BEFORE BREAKFAST, First dose on Sun10/10/18 at 0630, Until Discontinued, Give 1 hour before a meal. If patient is receiving tube feedings, hold tube feed 1hr before and 1hr after dose., 175 mcg Given 10/11/2018 6:06 AM NODULIZER 175 mcg Given 10/10/2018 6:16 AM NODULIZER 10/12/2018 10:32 AM NODULIZER 2 mg loperamide (IMODIUM A-D) capsule 2 mg Given 2 mg, Oral, EVERY 2 HOURS PRN, Starting Varsha 10/10/18 at 1639, Until 10/12/18 at 1307, Diarrhea, GIVE WITH EACH LOOSE STOOL; NOT TO EXCEED 16MG/24HRS, 2 mg Given 10/12/2018 8:11 AM NODULIZER 2 mg Given 10/10/2018 5:13 PM NODULIZER 10/12/2018 3:21 AM NODULIZER 3 mg melatonin tablet 3 mg Given 3 mg, Oral, ONCE, 1 dose, 10/12/18 at 0315 10/10/2018 11:23 AM NODULIZER 10 mg metoclopramide (REGLAN) injection 10 mg Given 10 mg, Intravenous, THREE TIMES DAILY BEFORE MEALS, 3 doses, First dose on Sun10/09/18 at 1845, Last dose on Sun10/10/18 at 1100 10 mg Given 10/10/2018 6:15 AM NODULIZER 10 mg Given 10/09/2018 6:22 PM NODULIZER 10/11/2018 9:13 PM NODULIZER 10 mg montelukast (SINGULAIR) tablet 10 mg Given 10 mg, Oral, AT BEDTIME DAILY, First dose on Sun10/09/18 at 2100, Until Discontinued 10 mg Given 10/10/2018 8:02 PM NODULIZER 10 mg Given 10/09/2018 8:23 PM NODULIZER 10/09/2018 1:57 PM NODULIZER 4 mg morphine injection syringe 4 mg Given 4 mg, Intravenous, ONCE, 1 dose, Sun10/09/18 at 1315 10/12/2018 8:50 AM NODULIZER [address] (PROTONIX) tablet 40 mg Given 40 mg, Oral, DAILY, First dose on Sun10/10/18 at 0900, Until Discontinued, Do not crush or chew tablet., 40 mg Given 10/11/2018 9:19 AM NODULIZER 40 mg Given 10/10/2018 9:04 AM NODULIZER 10/12/2018 10:32 AM NODULIZER 100 mg pentosan polysulfate sodium (ELMIRON) Given capsule 100 mg 100 mg, Oral, THREE TIMES DAILY BEFORE MEALS, First dose on Sun10/09/18 at 1800, Until Discontinued 100 mg Given 10/12/2018 6:31 AM NODULIZER 100 mg Given 10/11/2018 5:18 PM NODULIZER 10/12/2018 8:50 AM NODULIZER 10 mEq potassium chloride SR (K-DUR) tablet 10 Given mEq 10 mEq, Oral, DAILY, First dose on Sun10/09/18 at 1800, Until Discontinued, - Tablet may be dispersed in water. Place tab in 30 mL of water for 40-60 seconds. - Gently swirl until fully dispersed. If particles remain after admin, add small amount of water and admin remaining content. - DO NOT CRUSH. Tablet may be split in half. , 10 mEq Given 10/11/2018 9:18 AM NODULIZER 10 mEq Given 10/10/2018 9:04 AM NODULIZER 10/12/2018 8:50 AM NODULIZER 150 mg pregabalin (LYRICA) capsule 150 mg Given 150 mg, Oral, TWICE DAILY, First dose on Sun10/09/18 at 2100, Until Discontinued 150 mg Given 10/11/2018 9:12 PM NODULIZER 150 mg Given 10/11/2018 9:18 AM NODULIZER 10/12/2018 8:50 AM NODULIZER 50 mg pyridoxine (VITAMIN B-6) tablet 50 mg Given 50 mg, Oral, DAILY, First dose on Sun10/10/18 at 0900, Until Discontinued 50 mg Given 10/11/2018 9:18 AM NODULIZER 50 mg Given 10/10/2018 9:04 AM NODULIZER 10/11/2018 2:30 PM NODULIZER 50 mL sodium chloride PF 0.9% injection 50 mL Given 50 mL, Intravenous, ONCE, 1 dose, Sun10/11/18 at 1430, DO NOT SEND this medication unless it is requested. This med is usually available in floor stock., Intra-procedure (IR) 10/12/2018 10:33 AM NODULIZER 1 g sucralfate (CARAFATE) oral suspension 1 Given g Patient Own Med 1 g, Oral, BEFORE MEALS AND AT BEDTIME, First dose on Sun10/10/18 at 1245, Until Discontinued 1 g Given 10/12/2018 6:31 AM NODULIZER 1 g Given 10/11/2018 9:13 PM NODULIZER 10/10/2018 6:16 AM NODULIZER 1 g sucralfate (CARAFATE) tablet 1 g Given 1 g, Oral, THREE TIMES DAILY BEFORE MEALS, First dose on Sun10/09/18 at 1800, Until Discontinued 1 g Given 10/09/2018 6:22 PM NODULIZER 10/10/2018 9:04 AM NODULIZER 4 mg tiZANidine (ZANAFLEX) tablet 4 mg Given 4 mg, Oral, EVERY 6 HOURS PRN, Starting Sun10/09/18 at 1649, Until 10/12/18 at 1307, Muscle Cramps 10/10/2018 1:15 PM NODULIZER 125 mg vancomycin (FIRVANQ) oral solution 125 Given mg 125 mg, Oral, FOUR TIMES DAILY, First dose on Sun10/09/18 at 1800, Until Discontinued 125 mg Given 10/10/2018 9:14 AM NODULIZER 125 mg Given 10/09/2018 8:23 PM NODULIZER 10/10/2018 8:03 PM NODULIZER 10 mg zolpidem (AMBIEN) tablet 10 mg Given 10 mg, Oral, AT BEDTIME PRN, Starting Sun10/09/18 at 1649, Until Sun10/11/18 at 1010, Insomnia 10 mg Given 10/09/2018 8:40 PM NODULIZER 10/11/2018 9:12 PM NODULIZER 5 mg zolpidem (AMBIEN) tablet 5 mg Given 5 mg, Oral, AT BEDTIME PRN, Starting Sun10/11/18 at 1010, Until 10/12/18 at 1307, Insomnia in this encounter
--- OUTSIDE RECORDS SUMMARY | 2018-12-27 18:00 | XMS REPORT | Encounter Summary ---
Author Author [facility] Organization [facility] Address Unknown Phone Unavailable Care Team Providers Care Churn Tender Name Role Phone Charles Chau MD Unavailable Migue Patton MD PCP Reason for Visit * Reason Comments Diarrhea Encounter Details Care Team Description Date Type Department Gunnar Kirk MD [address] [place] [address] Diarrhea 10/08/2018 Telephone [facility] - [facility] [address] [place] [address] Social History Date Tobacco Use Types Packs/Day [...] Status Date of Assessment Functional Status Response 09/17/2018 Does the patient have a hearing impairment: [...] encounter Miscellaneous Notes * Telephone Encounter - Isaias Keane RN - 10/09/2018 9:09 AM ORTHOPHOTO TECH/DRAFTSMAN Gunnar Kirk MD You 1 minute ago (9:07 AM) Diarrhea is multifactorial could be related to diabetic enteropathy, underlying malignancy i.e. CLL, or connective tissue disorder. EGD colonoscopy did not find any conclusive evidence to explain diarrhea. Stool studies were negative for pathogens, C. difficile. I would recommend to continue symptomatic treatment with Imodium up to 6-8 times a day. Very well hydration, I agree with recommendation to ER visit for possible dehydration. As previously mentioned follow-up visit with BLAYNE Alonso. Thank you (Routing comment) OPHOTO TECH/DRAFTSMAN * Telephone Encounter - Isaias Keane RN - 10/09/2018 8:48 AM ORTHOPHOTO TECH/DRAFTSMAN Speaking with patients sister. Stating that she is having diarrhea, no control over her bowels, stating that she is incontinent throughout the night and not sleeping, stating that there is lethargy and extreme fatigue. Stating that they are giving her 4 imodium daily with no relief. Advising that the present to the ED for evaluation of dehydration. Stating that they will do so. No further questions. Isaias Keane RN OPHOTO TECH/DRAFTSMAN * Telephone Encounter - Isaias Keane RN - 10/08/2018 3:25 PM ORTHOPHOTO TECH/DRAFTSMAN Called pt to advise. Left message on machine for return call. Isaias Keane RN OPHOTO TECH/DRAFTSMAN * Telephone Encounter - Isaias Keane RN - 10/08/2018 3:24 PM ORTHOPHOTO TECH/DRAFTSMAN Gunnar Kirk MD You 2 hours ago (12:59 PM) Schedule follow-up with BLAYNE Alonso ASAP. Thank you (Routing comment) OPHOTO TECH/DRAFTSMAN * Telephone Encounter - Isaias Keane RN - 10/08/2018 12:14 PM ORTHOPHOTO TECH/DRAFTSMAN Pts calling in reporting that pt has still been having diarrhea since discharge from the hospital 10 days ago. Wanting to know if there is medication that can be prescribed for this diarrhea, or if she needs to come in for an appointment. She currently is scheduled for 11/22/2017 Please advise. .Isaias Keane RN OPHOTO TECH/DRAFTSMAN in this encounter Plan of Treatment Care Team Description Date Type Specialty Gunnar Kirk MD [address] [place] [address] Delayed gastric emptying 02/03/2019 Hospital Encounter Gunnar Kirk MD [address] [place] [address] ESOPHAGOGASTRODUODENOSCOPY WITH SPECIMEN COLLECTION BY BRUSHING/ WASHING 02/03/2019 Surgery as of this encounter Visit Diagnoses Not on filein this encounter
--- OUTSIDE RECORDS SUMMARY | 2018-12-27 18:00 | XMS REPORT | Encounter Summary ---
Author Author [facility] Organization [facility] Address Unknown Phone Unavailable Care Team Providers Care Hand Box Folder Name Role Phone Charles Chau MD Unavailable Migue Patton MD PCP Reason for Referral * Consult, Test & Treat (Routine) Referred By Contact Referred To Contact Status Reason Specialty Diagnoses / Procedures Taylor Avelar MD [address] [employer] [place] [address] [place] [address] [facility] [address] [facility] [place] [address] Canceled Specialty Services Endocrinology, Diagnoses Required Metabolism & Hypoglycemia Genetics associated with diabetes (HCC) Scheduling Instructions Please schedule into the insulin pump class. * Consult, Test & Treat (Routine) Referred By Contact Referred To Contact Status Reason Specialty Diagnoses / Procedures Taylor Avelar MD [address] [place] [address] [place] [address] [facility] [address] [facility] [place] [address] Pending Review Specialty Services Endocrinology Diagnoses Required and Diabetes Hypoglycemia Services / associated with Endocrinology, diabetes (HCC) Metabolism & Genetics Scheduling Instructions With RD at [facility] at either [facility] or V. thanks Reason for Visit * Reason Comments Diabetes * Consult, Test & Treat (Routine) Referred By Contact Referred To Contact Status Reason Specialty Diagnoses / Procedures Balbina Matamoros APRN-NP [address] [place] [address] [facility] [address] [facility] [place] [address] No Auth Needed Specialty Services Endocrinology Diagnoses Required and Diabetes Other dysphagia Services / Other constipation Endocrinology, Intractable Metabolism & cyclical vomiting Genetics with nausea Gastropathy Type 1 diabetes mellitus with complication (HCC) Dysthymia Anxiety Migraine with aura and with status migrainosus, not intractable Epigastric pain Abdominal pain, unspecified abdominal location Encounter Details Care Team Description Date Type Department Balbina Matamoros APRN-NP [address] [place] [address] [phone] Taylor Avelar MD [address] [facility] [place] [address] [place] [address] [phone] Type 1 diabetes, uncontrolled, with neuropathy (HCC) ( Primary Dx); Hypoglycemia associated with diabetes (HCC); CLL (chronic lymphocytic leukemia) (HCC) 10/08/2018 Office Visit [facility] - Internal [facility] [address] [place] [address] Social History Date Tobacco Use [...] Vital Signs Time Taken Vital Sign Reading 10/08/2018 10:38 AM BRIM SETTER Blood Pressure 121/64 10/08/2018 10:38 AM BRIM SETTER Pulse 78 - Temperature - - Respiratory Rate - - Oxygen Saturation - - Inhaled Oxygen - Concentration 10/08/2018 10:38 AM BRIM SETTER Weight 62.6 kg (138 lb) 10/08/2018 10:38 AM BRIM SETTER Height 167.6 cm (5' 6") 10/08/2018 10:38 AM BRIM SETTER Body Mass Index 22.27 in this encounter Functional Status Date of [...] this encounter Patient Instructions * Patient Instructions* Taylor Avelar MD - 10/08/2018 10:20 AM BRIM SETTER [facility] Diabetes Classes and Education Opportunities Diabetes Self-Management Program* Comprehensive diabetes education designed for those that are newly diagnosed or those in need of a refresher. In round table discussion format using the [employer] need doctor prescription and insurance approval. Four classes held over two months. Patients are encouraged to schedule a one-on-one with a dietitian during this time as well for help creating a personalized meal plan. Afternoon Sessions*: Offered and Tuesdays from 1:00p-3:00p, 4 classes total ([facility] Location) Start dates: 2018: November 27January 29, March 26, July 02August 27 Evening Sessions*: Offered and Mondays from 6:00p-8:00p, 4 classes total [place] Location: Start dates: 2018: November 26, January 28, April 01, July 01August 26 One-on-one education with a Remote Computer Terminal Operator or Dietitian* Personal education tailored to meet your needs. 1 hour session initially; 30-minute follow-up visits; various days/times offered at [facility] and [place] Location. Diabetes Survival Skills Basic survival skills class with information tailored to meet your specific needs free class; sign up REQUIRED; every Sunday ( except holidays) Offered every Sunday 10:00am-11:00am Carbohydrate Counting* How does food affect your blood sugar? Learn which foods have carbohydrates, how to estimate amounts of carbs eaten, how many carbs per meal you need and how to get away with eating what you want without your blood sugars telling on you! Offered Sunday, 3:00pm-5:00pm Pump and Sensor Preview* For those that are curious about insulin pumps or sensors but need help understanding what to expect, how it works, and deciding which one. Or those with a pump coming out of warranty that would like to see what is new on the market. Demo of actual pumps and sensors will be done by manager social work for the last 1 hour of class. Offered Sunday, 3:00p-5:00p (insurance billed only for the 1 hour class portion and not 1 hour demo) For demo only, sign up for class starting at 4:00pm. To schedule Diabetes Education please call , Option 3 *There is a charge for this class. Most insurance companies require a referral from your doctor. Contact your insurance company to determine coverage for diabetes education. Today I want you to reduce the dose of Tresiba to 12-13 units. Reduce the dose of novolog to 4-5 units with meals. Continue the correction factor of 1 unit for every 50 mg/dl over 180. Please do the diabetes education class/session, as well as meet with the dietitian to learn carb counting and/or carb consistent meals SETTER in this encounter Progress Notes * Taylor Avelar MD - 10/08/2018 10:20 AM BRIM SETTER Date of Service: 10/08/2018 Subjective: Chelsea Castillo is a 58 y.o. female. History of Present IllnessDiabetes Mellitus: The patient presents to diabetes clinic for ongoing evaluation and management of diabetes mellitus. The patient brought self blood glucose measurements for review which were reviewed and discussed and may be found scanned into [employer]. General observed trends included average glucose 238 with a range 42- 580, standard deviation 125. She was initially seen in the hospital by the endocrinology service for management of diabetes. She has CLL and has been having diarrhea. Comprehensive review of systems was obtained and is negative except with the following: She is Accompanied to this first visit by her sister her . She and her are currently staying with her sister who lives in town here. Patient lives in [facility]. She was recently hospitalized and today tells me she has been having diarrhea and weakness since discharge. She says she was having diarrhea in the hospital as well and was followed by gastroenterology at that time. She is scheduled to see gastroenterology in November. Her sister has been feeding her frequently over the last few weeks and the patient admits she has been hungry. Type: 1 Dx: Age 15 Hemoglobin A1c 8.5% FSBS 380 Frequency of testing FSBS: 4/day Current treatment: Tresiba 15 units nightly. NovoLog 8 units with meals is ordered, though s taking 4-5 units with meals per her . SHe is doing correction factor for 1 unit he is actually for every 50 >180 though not consistent. Past treatment: Hyperglycemia: Prandial Hypoglycemia: Blood sugars in the 40s-60s for the past 3 mornings Meals per day: She is eating multiple meals per day due to diarrhea and fatigue. CHO intake: Not limited. She does not carb count. She says she attempted this previously and had a lot of trouble understanding so she just doses insulin based on the size of the meal Exercise: No Last time for diabetes education: Hospital August 2018. Last visit with the dietitian: Hospital August 2018, did not find this helpful DM related hospitalizations: The following questions were discussed with the following answers: Does the patient have symptoms of excessive urination, or thirst? yes Is the patient having any visual problems or ocular pain? No When was the last room manager examination? Within the last year, Apr 2018 Has the room manager diagnosed retinopathy? Not sure Does the patient have any foot problem such as numbness, pain, callus, redness, skin break down or ulceration? Yes, numbness Does the patient have any chest pain or exertional shortness of air? No Did the patient relay any additional concerns or problems for this visit? Complications of DM: CAD: no CVA: no PVD: no Amputations: no Retinopathy: not sure Gastropathy: no Nephropathy: no Neuropathy: yes Medications: Statin: yes TEDDY-I: no ASA: no Review of Systems A comprehensive review of systems was obtained and is negative except for the following: Tires easily, weakness, dry skin, change in hair and nails, double vision, food getting stuck sometimes, chronic diarrhea, shortness of breath, abdominal cramping, frequent urination, numbness tingling, memory loss, loss of balance, dizziness, trouble with anxiety, headaches, depression, sleep problems , joint pain is stiffness, back pain, often feeling overwhelmed by her disease, he thinks make her happy. Past Medical History: Diagnosis Date Arthritis Diabetes [...] Take one capsule by mouth twice daily. dextroamphetamine-amphetamine (ADDERALL) 20 mg tablet Take 20 [...] subcutaneously with breakfast and lunch, and dinner. levocarnitine(+) (LEVOCARNITINE(+)) 500 mg tablet Take [...] maximum of 8 tablets in 24 hours. LORazepam (ATIVAN) 1 mg tablet Take 1 [...] every 8 hours as needed for Nausea. pyridoxine (VITAMIN B-6) 50 mg tablet Take [...] at bedtime as needed for Sleep. Vitals: 10/08/18 1038 BP: 121/64 Pulse: 78 Weight: 62.6 kg (138 lb) Height: 167.6 cm (66") Body mass index is 22.27 kg/m. Physical Exam Nursing note and vitals reviewed. Constitutional: she is oriented to person, place, and time. she appears chronically ill type 1 diabetes uncontrolled with neuropathy hypoglycemia. No distress. HENT: Head: Normocephalic and atraumatic. Mouth/Throat: Oropharynx is clear and moist. Eyes: Conjunctivae normal and EOM are normal. Pupils are equal, round, and reactive to light. Neck: Neck supple. No thyromegaly present. Cardiovascular: Normal rate, regular rhythm and normal heart sounds. Pulmonary/Chest: Effort normal and breath sounds normal. No respiratory distress. Abdominal: Soft. Bowel sounds are normal. she exhibits no distension. Musculoskeletal:she exhibits no edema and no tenderness. Lymphadenopathy: she has no cervical adenopathy. Neurological: she is alert and oriented to person, place, and time. Reflexes normal. Reduced sensation to 10 g monofilament in bilateral feet. Skin: Skin is warm and dry. No erythema. Psychiatric: She has a normal mood and affect. Her behavior is normal. Thought content normal. Assessment and Plan: Chelsea Castillo was seen today for diabetes. Diagnoses and all orders for this visit: Type 1 diabetes, uncontrolled, with neuropathy (HCC) Hypoglycemia associated with diabetes (HCC) - POC HEMOGLOBIN A1C, POC GLUCOSE, glucose meter download all reviewed with the patient and her family. - Glucose values are variable, both highs and lows. She has had hypoglycemia for the past 3 mornings with readings in the 40s-60s fasting. - Changes today: Reduce Tresiba 12 units nightly; reduce NovoLog to 4-5 units with meals. - Referral to dietitian to learn carbohydrate counting. We discussed at length the importance of carb counting with type 1 diabetes and insulin dosing. If she is unable to grasp this she at least needs to do carbohydrate consistent meals. We discussed all this at length. - Referral to diabetes education for general diabetes education education as well as to learn more about insulin pumps, which she is quite interested in. We discussed at length the need for her to still bolus for meals and bolus with carbohydrate counting. The pump will not work safely without her input. - She has glucagon kit at home. - Lipid management by her primary care physician in [place]. - AMB REFERRAL TO NUTRITION - AMB REFERRAL TO DIABETIC EDUCATION - GLUCOSE METER DOWNLOAD CLL (chronic lymphocytic leukemia) (HCC) - She follows with hematology for this. Return to clinic in 3 months. Diabetes education and dietitian visits prior to that time. I spent over an hour with the patient in the family discussing her diabetes, management of her diabetes, goal blood glucose readings, the need for carbohydrate counting and lifestyle modification, the risks of hypoglycemia with insulin and the need for diligence with dosing insulin. SETTER in this encounter Plan of Treatment Care Team Description Date Type Specialty Gunnar Kirk MD [address] [place], [place] [id number] Delayed gastric emptying 02/03/2019 Hospital Encounter Gunnar Kirk MD [address] [place] [address] [phone] ESOPHAGOGASTRODUODENOSCOPY WITH SPECIMEN COLLECTION BY BRUSHING/ WASHING 02/03/2019 Surgery Order Schedule Name Priority Associated Diagnoses Ordered: 10/08/2018 AMB REFERRAL TO NUTRITION Routine Hypoglycemia associated with diabetes (HCC) Ordered: 10/08/2018 AMB REFERRAL TO DIABETIC EDUCATION Routine Hypoglycemia associated with diabetes (HCC) as of this encounter Procedures Comments Procedure Name Priority Date/Time Associated Diagnosis GLUCOSE METER DOWNLOAD Routine 10/08/2018 Hypoglycemia associated with diabetes (HCC) POC HEMOGLOBIN A1C Routine 10/08/2018 Hypoglycemia associated with diabetes (HCC) POC GLUCOSE Routine 10/08/2018 Hypoglycemia associated with diabetes (HCC) in this encounter Results * POC GLUCOSE (10/08/2018) Glucose POC 380 (A) 65 - 110 mg/dL IN CLINIC Specimen Blood - Blood Performing Organization Address City/State/Zipcode Phone Number IN CLINIC * POC HEMOGLOBIN A1C (10/08/2018) Poc Hemoglobin A1C 8.5 % IN CLINIC Specimen Blood Performing Organization Address City/State/Zipcode Phone Number IN CLINIC in this encounter Visit Diagnoses Diagnosis Type 1 diabetes, uncontrolled, with neuropathy (HCC) - Primary Type I (juvenile type) diabetes mellitus with neurological manifestations, uncontrolled Hypoglycemia associated with diabetes (HCC) Type II or unspecified type diabetes mellitus with other specified manifestations, not stated as uncontrolled CLL (chronic lymphocytic leukemia) (HCC) Chronic lymphoid leukemia, without mention of having achieved remission in this encounter
--- OUTSIDE RECORDS SUMMARY | 2018-12-27 18:01 | XMS REPORT | Encounter Summary ---
Author Author [facility] Organization [facility] Address Unknown Phone Unavailable Care Team Providers Care Waste Examiner Name Role Phone Charles Chau MD Unavailable Migue Patton MD PCP Reason for Visit * Reason Comments Follow Up Encounter Details Care Team Description Date Type Department Chiki Abbott Follow Up 09/27/2018 Telephone [facility] - Internal [facility] [address] [place] [address] Social History Date Tobacco Use Types Packs/Day [...] encounter Miscellaneous Notes * Telephone Encounter - Chiki Abbott - 09/27/2018 11:42 PM BUDDY Jones, Please make sure pt has follow up appointment within the next [address] Kirk. Thank you. Chiki DEALER in this encounter Plan of Treatment Care Team Description Date Type Specialty Gunnar Kirk MD [address] [place] [address] [phone] Delayed gastric emptying 02/03/2019 Hospital Encounter Gunnar Kirk MD [address] [place] [address] [phone] ESOPHAGOGASTRODUODENOSCOPY WITH SPECIMEN COLLECTION BY BRUSHING/ WASHING 02/03/2019 Surgery as of this encounter Visit Diagnoses Not on filein this encounter
--- OUTSIDE RECORDS SUMMARY | 2018-12-27 18:01 | XMS REPORT | Encounter Summary ---
Author Author [facility] Organization [facility] Address Unknown Phone Unavailable Care Team Providers Care Primary Montessori Teacher Name Role Phone Charles Chau MD Unavailable Migue Patton MD PCP Reason for Visit * Reason Comments Heme/Onc Care * Consult, Test & Treat (Routine) Referred By Contact Referred To Contact Status Reason Specialty Diagnoses / Procedures Philipp Mckeon MBBS [address] [place] [address] [place] [address] [place] [id number] No Auth Needed Oncology Diagnoses LAD P rocedures F/U APPT REQUEST: [facility] ([place]) Encounter Details Care Team Description Date Type Department Milena Bhatti MD [address] [place] [address] CLL (chronic lymphocytic leukemia) (HCC) 10/02/2018 Office Visit [facility] [address] [place] [phone] Social History Date Tobacco Use Types Packs/Day [...] Vital Signs Time Taken Vital Sign Reading 10/02/2018 10:32 AM MULTIMEDIA SERVICES MANAGER Blood Pressure 156/86 10/02/2018 10:32 AM MULTIMEDIA SERVICES MANAGER Pulse 98 10/02/2018 10:32 AM MULTIMEDIA SERVICES MANAGER Temperature 36.6 C (97.9 F) 10/02/2018 10:32 AM MULTIMEDIA SERVICES MANAGER Respiratory Rate 15 10/02/2018 10:32 AM MULTIMEDIA SERVICES MANAGER Oxygen Saturation 100% - Inhaled Oxygen - Concentration 10/02/2018 10:32 AM MULTIMEDIA SERVICES MANAGER Weight 64.2 kg (141 lb 9.6 oz) 10/02/2018 10:32 AM MULTIMEDIA SERVICES MANAGER Height 165.1 cm (5' 5") 10/02/2018 10:32 AM MULTIMEDIA SERVICES MANAGER Body Mass Index 23.56 in this encounter Functional Status Date of [...] as of this encounter Progress Notes * Milena Bhatti MD - 10/02/2018 10:20 AM MULTIMEDIA SERVICES MANAGER Name: Chelsea Castillo : 1960 AGE: 58 y.o. DATE OF SERVICE: 10/02/2018 Subjective: Reason for Visit: Heme/Onc Care Chelsea Castillo is a 58 y.o. female. Cancer Staging CLL (chronic lymphocytic leukemia) (HCC) Staging form: Chronic Lymphocytic Leukemia / Small Lymphocytic Lymphoma, AJCC 8th Edition - Clinical stage from 10/02/2018: Modified Diallo Stage I (Modified Diallo risk: Intermediate, Binet: Stage B, Lymphocytosis: Present, Adenopathy: Present, Organomegaly: Absent, Anemia: Absent, Thrombocytopenia: Absent) - Signed by Lyn Hammonds MBBS on 10/02/2018 History of Present [id number] lady with multiple comorbidities including type 1 diabetes, on insulin, history of seizures, chronic abdominal pain with possible gastroparesis who was referred to our clinic for new diagnosis of chronic lymphocytic leukemia. Patient was admitted to [facility] from 09-17-2018 to 09-27-2018 for evaluation of abdominal pain. She has had several admissions for abdominal pain in the past one year. CT scan of abdomen pelvis on 09-16-2018 showed mild external iliac lymphadenopathy bilaterally. Largest left external iliac lymph node measures 1.6 cm. There is also mildly prominent inguinal lymph nodes bilaterally which are reactive in appearance. She also had a CT chest which showed enlarged bilateral axillary and subpectoral lymph nodes. CT neck revealed mild submental , bilateral submandibular, left level 2A, and bilateral subpectoral and axillary lymphadenopathy. She underwent left axillary lymph node core needle biopsy on 09-24-2018 that showed solid sheets of small monotonous lymphocyte. Immunohistochemistry shows that the cells are positive for CD20 and CD5 and are negative for cyclin D1. Ki-67 was 5%. The diagnosis was consistent with small lymphocytic lymphoma/CLL. Peripheral blood flow cytometry showed CD5 positive B-cell proliferation. B cells comprise 12.8% of total events that are positive for CD5, CD19, CD20, CD23 , CD38, CD 200 and monoclonal lambda. Cells were e negative for CD10, CD34, and FMC7. Neoplastic B cells were negative for ZAP 70 and positive for CD38. Patient was eventually discharged with a follow-up appointment in our clinic. In terms of her abdominal pain, she continues to have abdominal pain that is constant. Extensive workup showed gastritis and evidence of gastroparesis. She is scheduled to see gastroenterology next month. She has lost weight for the past year giving her abdominal complaints. She has had some night sweats in the past year. However, she has not had any sweats the past 1 month. She continues to have fatigue which is not new. She has not been eating well as she gets full quickly after she started eating. She lives in [facility]. Currently she is residing with her sister. She did not smoke and she does not drink. Review of Systems Constitutional: Positive for appetite change and fatigue. Negative for activity change. HENT: Negative for mouth sores, tinnitus and trouble swallowing. Eyes: Negative for photophobia, discharge and visual disturbance. Respiratory: Positive for shortness of breath. Negative for cough and chest tightness. Cardiovascular: Negative for chest pain, palpitations and leg swelling. Gastrointestinal: Positive for abdominal pain and nausea. Negative for abdominal distention, anal bleeding, blood in stool, constipation, diarrhea, rectal pain and vomiting. Genitourinary: Negative for difficulty urinating, dysuria and hematuria. Musculoskeletal: Positive for arthralgias and back pain. Negative for joint swelling. Skin: Negative for color change, pallor and rash. Neurological: Positive for dizziness and seizures. Negative for weakness, numbness and headaches. Hematological: Negative for adenopathy. Does not bruise/bleed easily. Psychiatric/Behavioral: Negative for agitation and confusion. The patient is nervous/anxious. Past Medical History: [...] at bedtime as needed for Sleep. Vitals: 10/02/18 1032 BP: 156/86 Pulse: 98 Resp: 15 Temp: 36.6 C (97.9 F) TempSrc: Oral SpO2: 100% Weight: 64.2 kg (141 lb 9.6 oz) Height: 165.1 cm (65") Body mass index is 23.56 kg/m. Pain Score: Seven Pain Loc: Abdomen Pain Addressed: N/A Patient Evaluated for a Clinical Trial: No treatment clinical trial available for this patient. Eastern Cooperative Oncology Group performance status is 0, Fully active, able to carry on all pre-disease performance without restriction.. Physical Exam Constitutional: She is oriented to person, place, and time. She appears well- developed and well-nourished. No distress. HENT: Head: Normocephalic and atraumatic. Mouth/Throat: Oropharynx is clear and moist. Eyes: Conjunctivae and EOM are normal. Right eye exhibits no discharge. Left eye exhibits no discharge. Neck: Neck supple. Cardiovascular: Normal rate, regular rhythm and normal heart sounds. No murmur heard. Pulmonary/Chest: Effort normal and breath sounds normal. She has no wheezes. She has no rales. Abdominal: Soft. She exhibits no distension and no mass. There is no hepatosplenomegaly. There is tenderness in the epigastric area and left upper quadrant. There is no guarding. Musculoskeletal: Normal range of motion. She exhibits no edema. Lymphadenopathy: She has no cervical adenopathy. She has axillary adenopathy. Left axillary: Lateral adenopathy present. Left: Inguinal adenopathy present. Neurological: She is alert and oriented to person, place, and time. Skin: Skin is warm and dry. No rash noted. No pallor. Psychiatric: She has a normal mood and affect. Her behavior is normal. Nursing note and vitals reviewed. Assessment and Plan: Problem Cll (Chronic Lymphocytic Leukemia) (Hcc) CLL: Modified Diallo-I (Lymphocytosis + enlarged lymph nodes) -Intermediate risk Binet staging-B (Three or more lymphoid bearing areas enlarged) CD38 positive ZAP-70 Neg FISH-Pending Segments of the IGHV mutation Pending 58-year-old lady with multiple comorbidities including type 1 diabetes, on insulin, history of seizures, chronic abdominal pain with possible gastroparesis who was referred to our clinic for new diagnosis of chronic lymphocytic leukemia. We discussed with the patient, her and her sister her diagnosis of chronic lymphocytic leukemia. We explained that CLL is a heterogeneous disease with usually an indolent course. We also explained that CLL can be monitored with active surveillance if there are no indications of treatment. We explained the common indications for treatment in CLL per the International workshop on CLL: Evidence of progressive marrow failure as manifested by the development of, or worsening of, anemia and/or thrombocytopenia. Massive (ie, at least 6 cm below the left costal margin) or progressive or symptomatic splenomegaly. Massive nodes (ie, at least 10 cm in longest diameter) or progressive or symptomatic lymphadenopathy. Progressive lymphocytosis with an increase of more than 50% over a two- month period or lymphocyte doubling time. Autoimmune anemia and/or thrombocytopenia that is poorly responsive to corticosteroids or other standard therapy. Symptomatic or functional extranodal involvement (eg, skin, kidney, lung, spine). Constitutional symptoms, defined as any one or more of the following disease- related symptoms or signs: a. Unintentional weight loss of 10 percent or more within the previous six months b. Significant fatigue (ie, ECOG PS 2 or worse; inability to work or perform usual activities) c. Fevers higher than 100.5F or 38.0C for two or more weeks without other evidence of infection d. Night sweats for more than one month without evidence of infection Chelsea has lost significant weight over the past 1 year but that is likely related to her GI complaints which she is seeing gastroenterology for. She had extensive workup for her GI symptoms and her gastric emptying scan was positive for possible gastroparesis. She has type 1 diabetes and has been on insulin for decades. She mentions occasional night sweats in the past 1 year. However , she has not had any sweats in the past 1 month. We explained to Chelsea that she does not have an indication for treatment right now. Therefore observation every 3 months would be appropriate. We also discussed the need for further diagnostic test to evaluate her disease risk. We will send for peripheral blood CLL FISH, mutational status of segments of the immunoglobulin heavy chain variable, immunoglobulin levels, LDH and beta-2 microglobulin. We also discussed that CLL patients might be at higher risk of infection given that there are immunoglobulin level might be low. She needs to be up-to-date with her vaccinations including yearly influenza vaccine and pneumococcal vaccine as indicated. RTC in 3 months Patient was seen and discussed with Dr. Magy Hammonds MD, MSc Hematology/Oncology Fellow [facility] Pager [phone] ATTESTATION I have personally performed the ortega portions of the visit. I have discussed the case with the fellow and concur with the fellow documentation of history, physical exam, assessment, and treatment plan. I have reviewed all pertinent labs and images for the patient. Notations made by myself are in italics. Staff name: Milena Bhatti MD Date: 10/04/2018 Interlocking And Signal Mechanic Hematology/Oncology IMEDIA SERVICES MANAGER in this encounter Plan of Treatment Care Team Description Date Type Specialty Gunnar Kirk MD [address] [place] [address] [phone] Delayed gastric emptying 02/03/2019 Hospital Encounter Gunnar Kirk MD [address] [place] [address] [phone] ESOPHAGOGASTRODUODENOSCOPY WITH SPECIMEN COLLECTION BY BRUSHING/ WASHING 02/03/2019 Surgery Order Schedule Name Priority Associated Diagnoses Expected: 10/02/2018, Expires: 10/02/2019 [facility] Routine CLL (chronic lymphocytic leukemia) ([facility]) Expected: 01/02/2019 (Approximate), Expires: 10/02/2019 CBC AND DIFF Routine CLL (chronic lymphocytic leukemia) ([facility]) Expected: 01/02/2019 (Approximate), Expires: 10/02/2019 COMPREHENSIVE METABOLIC PANEL Routine CLL (chronic lymphocytic leukemia) ([facility]) Expected: 01/02/2019 (Approximate), Expires: 10/02/2019 LDH-LACTATE DEHYDROGENASE Routine CLL (chronic lymphocytic leukemia) (HCC) as of this encounter Results * CHROMOSOMES FISH DNA PROBE-BLOOD (10/02/2018 1:00 PM MULTIMEDIA SERVICES MANAGER) Chromosomes Fish DNA SEE MASKING MACHINE FEEDER FOR REPORT [facility] Probe-Blood Specimen Blood Performing Organization Address [facility] Phone Number [facility] [address] [place] [address] * LDH-LACTATE DEHYDROGENASE (10/02/2018 12:40 PM MULTIMEDIA SERVICES MANAGER) Lactate Dehydrogenase 174 100 - 210 U/L [facility] Specimen Blood Performing Organization Address [facility] Phone Number [facility] [address] [place] [address] * BETA 2 MICROGLOBULIN (10/02/2018 12:40 PM MULTIMEDIA SERVICES MANAGER) B2 Microglobulin 2.4 (H) 0.8 - 2.3 MG/L [facility] Specimen Blood Performing Organization Address [facility] Phone Number [facility] [address] [place] [address] * IMMUNOGLOBULINS-IGA,IGG,IGM (10/02/2018 12:40 PM MULTIMEDIA SERVICES MANAGER) IgG 566 (L) 762 - 1,488 MG/DL [facility] IgA 142 70 - 390 MG/DL [facility] IgM 59 38 - 328 MG/DL [facility] Specimen Blood Performing Organization Address [facility] Phone Number MAIN LAB [address] [place] [address] in this encounter Visit Diagnoses Diagnosis CLL (chronic lymphocytic leukemia) (HCC) Chronic lymphoid leukemia, without mention of having achieved remission in this encounter
--- OUTSIDE RECORDS SUMMARY | 2018-12-27 18:01 | XMS REPORT | Encounter Summary ---
Author Author [facility] Organization [facility] Address Unknown Phone Unavailable Care Team Providers Care Muck Miner Blasting Name Role Phone Charles Chau MD Unavailable Migue Patton MD PCP Reason for Visit * Reason Comments Heme/Onc Care Lab Encounter Details Care Team Description Date Type Department Milena Bhatti MD [address] [place] [address] [phone] 10/02/2018 [facility] - Lab Level 3 [address] [facility] [address] [place] [address] Social History Date Tobacco Use Types Packs/Day [...] mouth at bedtime as needed for Sleep. 11/16/2018 clobetasol (TEMOVATE) Apply 0 0.05 % topical solution topically to affected area twice daily. 10/12/2018 dextroamphetamine-ampheta Take 20 mg by 0 mine (ADDERALL) 20 mg mouth twice tablet daily 11/16/2018 diclofenac(+) (VOLTAREN) Apply 4 g 0 1 % topical gel topically to affected area four times daily as needed. 07/22/2018 11/20/[address] (CYMBALTA) Take three 30 capsule 1 30 mg capsule capsules by mouth daily. 11/16/2018 estrogens, conjugated(+) Insert or 0 (PREMARIN) 0.625 mg/g Apply 0.5 g vaginal cream to vaginal area daily. 10/12/2018 HYDROcodone/acetaminophen Take 1 tablet 0 (+) (NORCO) 10/325 mg by mouth tablet every 6 hours as needed for Pain 11/20/2018 hydroxychloroquine Take 200 mg 0 (PLAQUENIL) 200 mg tablet by mouth daily. Take with food. 10/12/2018 insulin degludec (TRESEBA Inject 15 0 SOLOSTAR) 100 unit/mL (3 Units under mL) injection pen the skin at bedtime daily. 09/27/2018 10/18/2018 insulin lispro(+) Inject 8 45 mL 0 (HUMALOG KWIKPEN INSULIN) units 100 unit/mL injection PEN subcutaneousl y with breakfast and lunch, and dinner. 11/16/2018 lidocaine/prilocaine Apply 0 (EMLA) 2.5/2.5 % topical topically to cream affected area as Needed. 09/27/2018 10/12/2018 loperamide (IMODIUM A-D) Take one 15 capsule 0 2 mg capsule capsule by mouth four times daily as needed for Diarrhea. Take 1 capsules by mouth initially, followed by 1 capsule by mouth after each loose stool up to a maximum of 8 tablets in 24 hours. 10/12/2018 LORazepam (ATIVAN) 1 mg Take 1 mg by 0 tablet mouth four times daily. 11/16/2018 multivitamin with Take 1 tablet 0 [...] mouth capsule three times daily before meals. 07/22/2018 10/12/2018 polyethylene glycol 3350 Take one 30 each 1 (MIRALAX) 17 g packet packet by mouth daily. 07/18/2018 11/16/2018 promethazine (PHENERGAN) Insert or 30 each 0 12.5 mg rectal Apply one suppository suppository to rectal area as directed every 8 hours as needed for Nausea. as of this encounter Plan of Treatment Care Team Description Date Type Specialty Gunnar Kirk MD [address] [place] [address] [phone] Delayed gastric emptying 02/03/2019 Hospital Encounter Gunnar Kirk MD [address] [place] [address] [phone] ESOPHAGOGASTRODUODENOSCOPY WITH SPECIMEN COLLECTION BY BRUSHING/ WASHING 02/03/2019 Surgery as of this encounter Procedures Comments Procedure Name Priority Date/Time Associated Diagnosis CYTOGENETICS SCAN 10/04/2018 4:06 PM COOPERATIVE EDUCATION DIRECTOR CHROMOSOMES FISH DNA Routine 10/02/2018 CLL (chronic lymphocytic PROBE-BLOOD 1:00 PM COOPERATIVE EDUCATION DIRECTOR leukemia) ([facility]) IMMUNOGLOBULINS-IGA,IGG,I Routine 10/02/2018 CLL (chronic lymphocytic GM 12:40 PM COOPERATIVE EDUCATION DIRECTOR leukemia) (HCC) LDH-LACTATE DEHYDROGENASE Routine 10/02/2018 CLL (chronic lymphocytic 12:40 PM COOPERATIVE EDUCATION DIRECTOR leukemia) (HCC) BETA 2 MICROGLOBULIN Routine 10/02/2018 CLL (chronic lymphocytic 12:40 PM COOPERATIVE EDUCATION DIRECTOR leukemia) (HCC) in this encounter Results * CYTOGENETICS SCAN (10/04/2018 4:06 PM COOPERATIVE EDUCATION DIRECTOR) Narrative Performed At Ordered by an unspecified provider. * CHROMOSOMES FISH DNA PROBE-BLOOD (10/02/2018 1:00 PM COOPERATIVE EDUCATION DIRECTOR) Chromosomes Fish DNA SEE TON CYLINDER INSPECTOR FOR REPORT MAIN [facility] Probe-Blood Specimen Blood Performing Organization Address [facility] Phone Number MAIN LAB [address] [place] [phone] * LDH-LACTATE DEHYDROGENASE (10/02/2018 12:40 PM COOPERATIVE EDUCATION DIRECTOR) Lactate Dehydrogenase 174 100 - 210 U/L [facility] Specimen Blood Performing Organization Address [facility] Phone Number [facility] [address] [place] [address] * BETA 2 MICROGLOBULIN (10/02/2018 12:40 PM COOPERATIVE EDUCATION DIRECTOR) B2 Microglobulin 2.4 (H) 0.8 - 2.3 MG/L [facility] Specimen Blood Performing Organization Address [facility] Phone Number MAIN LAB [address] [place] [address] * IMMUNOGLOBULINS-IGA,IGG,IGM (10/02/2018 12:40 PM COOPERATIVE EDUCATION DIRECTOR) IgG 566 (L) 762 - 1,488 MG/DL [facility] IgA 142 70 - 390 MG/DL [facility] IgM 59 38 - 328 MG/DL [facility] Specimen Blood Performing Organization Address [facility] Phone Number MAIN LAB [address] [place] [address] in this encounter Visit Diagnoses Diagnosis CLL (chronic lymphocytic leukemia) (HCC) Chronic lymphoid leukemia, without mention of having achieved remission in this encounter Administered Medications Action Date Dose Rate Site Medication Order MAR Action 10/02/2018 1:06 PM COOPERATIVE EDUCATION DIRECTOR 500 Units heparin lock flush PF syringe 500 Units Given 500 Units, Intravenous, ONCE, 1 dose, 10/02/18 at 1245, NOTE: This is a HIGH ALERT Medication., in this encounter
--- OUTSIDE RECORDS SUMMARY | 2018-12-27 18:05 | XMS REPORT | Encounter Summary ---
Author Author [facility] Organization [facility] Address Unknown Phone Unavailable Care Team Providers Care Manager Of Allied Health Services Name Role Phone Charles Freeman MD Unavailable Sandra Wayne MD 3 Sandra Wayne MD PCP Sandra Wayne MD 100 Migue Patton MD PCP Reason for Referral * Consult, Test & Treat (Routine) Referred By Contact Referred To Contact Status Reason Specialty Diagnoses / Procedures Philipp Mckeon MBBS [address] [place] [address] Milena Bhatti MD [address] [place] [address] No Auth Needed Oncology Diagnoses LAD P rocedures F/U APPT REQUEST: [facility]) * Consult, Test & Treat (Routine) Referred By Contact Referred To Contact Status Reason Specialty Diagnoses / Procedures Philipp Mckeon MBBS [address] [place] [address] Milena Bhatti MD [address] [place] [address] No Auth Needed Oncology Diagnoses LAD P rocedures F/U APPT REQUEST: [facility] Reason for Visit * Reason Comments Abdominal pain onset Sun. +NV. intermittent chills/sweats. * Auth/Cert Referred By Contact Referred To Contact Status Reason Specialty Diagnoses / Procedures Diagnoses Abdominal pain Encounter Details Care Team Description Date Type Department Roldan Chen MD [address] [facility] [place] [address] [place] [address] [phone] Philipp Mckeon MBBS [address] [place] [address] [phone] Ivory Gonzalez MD [address] [facility] [address] [place] [address] [phone] Jakub Miller MD [address] [place] [address] [phone] Justin Magdaleno MD [address] [place] [address] [phone] Pauly Morrison MD [address] [place] [address] [phone] Abdominal pain 09/17/2018 Hospital [facility] - Encounter [id number] [facility] 09/27/2018 [place] [address] Social History Date Tobacco Use Types Packs/Day [...] Vital Signs Time Taken Vital Sign Reading 09/27/2018 9:15 AM LAST SAWYER Blood Pressure 137/69 09/27/2018 9:15 AM LAST SAWYER Pulse 101 09/27/2018 9:15 AM LAST SAWYER Temperature 36.9 C (98.5 F) - Respiratory Rate - 09/27/2018 9:15 AM LAST SAWYER Oxygen Saturation 99% - Inhaled Oxygen - Concentration 09/18/2018 2:47 PM CDT Weight 63 kg (139 lb) 09/18/2018 2:47 PM CDT Height 165.1 cm (5' 5") 09/18/2018 2:47 PM CDT Body Mass Index 23.13 in this encounter Functional Status Date of [...] as of this encounter Discharge Summaries * Pauly Morrison MD - 09/27/2018 2:33 PM LAST SAWYER PHYSICIAN DISCHARGE SUMMARY - [facility] DEPARTMENT OF INTERNAL MEDICINE Patient Name Chelsea Castillo | Age 58 years | Date Of 1960 Admission Date 09/17/2018 | Discharge Date 09/27/2018 Length of Stay 9 days Discharging Physician Pauly Morrison MD | [facility] P- [id number] Primary Care Physician Migue Patton III Medication Changes (w/rationale [dosages below]) Addition of sucralfate (improvement of epigastric pain) Addition of GI cocktail (symptomatic improvement of intermittent epigastric abdominal pain) Discontinuation of magnesium (non-infectious diarrhea) Addition of as needed loperamide (non-infectious diarrhea) Addition of pyridoxine (pyridoxine deficiency) Resumption of lowelemental iron iron replacement to increase GI tolerability (iron deficiency anemia) Data Pending at Time of Discharge Peripheral smear Surgical pathology from EGD performed 09/26/2018 Cyclin D1 Plan for Further Evaluation and Management To be seen by Hematology for: Follow-up evaluation of suspected CLL/SLL Reason for Hospitalization/Presenting Complaint Intermittent epigastric abdominal Primary Discharge Diagnoses Indolent B-cell lymphoma, 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 She is found to have lymphadenopathy on CT scan of the abdomen was performed at the time of admission. A pursuit of underlying hematologic malignancy was pursued given the fact that she had elevated eosinophils on her differential. Additionally, Subsequent flow cytometry revealed an elevated B-cell component and there was concern for gastric malignancy/GI lymphoma given her progressive abdominal pain and early satiety. She underwent an EGD with biopsy that required repeat due to sampling availability for CD marker testing. Hematology was consulted and recommended close outpatient follow-up for treatment options around CLL/SLL that is likely indolent. Lastly, her epigastric abdominal pain fluctuated during the course of the hospitalization, and although no clear physiologic abnormality was noted, there was a high correlation between her anxiety levels and the degree of epigastric abdominal pain. Repeat abdominal imaging again failed to reveal a cause of her epigastric abdominal pain and it was thought that the lymphoma was unlikely to be a cause. Gastroenterology also opined that degree of gastritis would not correlate with her symptomatology and given that she had some response to anxiolytics, the decision was made that she could be safely transition to outpatient management. However, delayed gastric emptying was noted on a gastric emptying study performed 09/23/2018. Her problem list on the day of DC was as follows: CD5 positive B-cell proliferation (monoclonal B-cell lymphocytosis with CLL type phenotype versus CLL/SLL versus mantle cell) | Newdiagnosis. Noted on flow cytometry collected 09/22/2018. Tissue specimen obtained from EGD with biopsy not amenable to flow cytometry. Repeat EGD 09/26/2018 with biopsies pending. Has outpatient follow-up established. Subacute dysphagia associate with nausea and vomiting (autonomic neuropathy versus GERD) | Progressive. EGD performed 09/20/2018 demonstrated normal esophagus with diffuse gastric erythema and numerous gastric polyps that were removed. Gastroenterology submitting cassettes from stomach biopsy for additional testing in light of B-cell proliferation, but cells not amenable. Repeat EGD 09/26/2018 with biopsies pending. GES with delayed gastric emptying. Chronic epigastric pain (diabetic gastroparesis versus other) | Ongoing, but improved overall. Has multiple admissions and ED visits for similar abdominal pain. Concern for polypharmacy at home with opioids administered each visit for symptomatic management. CT scan on admission was unremarkable apart from a GI tract. Tense from stomach to rectum even though patient reported no intake for 3 days. Colonoscopy performed 09/20/2018 demonstrated normal terminal ileum and colonic mucosa with a 5 mm polyp removed. Lymphadenopathy (occult malignancy) | CT scan at the time of presentation demonstrated external iliac lymphadenopathy 1.6 cm short axis lymph node noted. Was also found to have lymphadenopathy in the axillary area and had originally had plans to be seen by Oncology as an outpatient. Was originally recommended to have an excisional biopsy of the external iliac node, however, they recommended IR biopsy, and L axillary LN FNA obtained 09/24/18. Hypoglycemia | Resolved afterhospital event with associated loss of consciousness. Iron deficiency | Noted on iron studies collected 07/19/2018. History of TBI | By report, some cognitive difficulty but no clear documentation of cognitive testing. Becomes easily perturbed with complex discussions. Type I diabetes mellitus | Uncontrolled, but improving control. Most recent hemoglobin A1c 9.8% on 09/18/2018 which is down from 07/19/2018 when it was 11.4% . Endocrinology consulted 09/19/2018. Diabetes comp located by peripheral neuropathy proliferative diabetic retinopathy. 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 At the time of admission TSH 6.1 and free T4 1.0. Orthostasis (autonomic neuropathy) | Intermittent, but reasonably controlled on fludrocortisone 0.3 mg daily. Noninfectious diarrhea | Improving. Noted on 09/23/2018 and all stool cultures and C. difficile negative. Started on Imodium 09/25/2018. Depression (situational versus organic) | Controlled. Seen by Psychiatry, who recommended continuation of duloxetine 60 mg twice daily, and a lower dose of alprazolam to 0.5 mg twice daily as well as lowered dose of zolpidem. Psychology consulted. Significant Procedures Performed & Date IR guided biopsy 09/24/2018 Gastric emptying study 09/23/2018 demonstrated delayed gastric empty Significant Imaging Studies Colonoscopy performed 09/20/2018 with normal terminal ileal and colonic mucosa with a 5 mm transverse polyp removed with a cold snare. EGD performed 09/20/2018 with normal esophagus and the GE junction at 36 with random biopsies obtained. Diffuse erythema with small gastric polyps in the stomach and normal duodenum. GES 09/23/18 with delayed gastric emptying. Significant Labs Mild elevation in LDH to 211 Serum folate 15.7 on 07/19/2018 B12 751 on 07/19/2018 Iron studies 09/26/2018: Iron 41 Percent saturation 13 Total iron binding capacity 323 Ferritin 22 Haptoglobin 97 ESR less than 1 on 09/18/2018 CRP 0.16 on 09/18/2018 Pyridoxal 5 phosphate less than 2 on 09/24/2018 Significant Microbiology C. difficile PCR -03/2018 Cryptosporidium negative Giardia negative Stool culture negative Significant Pathology Flow cytometry was CD5 positive, CD20 positive, CD23 positive on peripheral flow cytometry and lymph node biopsy. Cyclin D1 is pending. Labs In The Final 24h of Hospitalization Results for orders placed or performed during the hospital encounter of (from the past 24 hour(s)) POC GLUCOSE Collection Time: 09/26/18 8:46 PM # # Low-High Glucose, POC 179 (H) 70 - 100 MG/DL CBC AND DIFF Collection Time: 09/27/18 4:03 AM # # Low-High White Blood Cells 12.5 (H) 4.5 - 11.0 K/UL RBC 4.08 4.0 - 5.0 M/UL Hemoglobin 12.1 12.0 - 15.0 GM/DL Hematocrit 36.3 36 - 45 % MCV 89.0 80 - 100 FL MCH 29.6 26 - 34 PG MCHC 33.3 32.0 - 36.0 G/DL RDW 17.7 (H) 11 - 15 % Platelet Count 437 (H) 150 - 400 K/UL MPV 8.7 7 - 11 FL Segmented Neutrophils 40 (L) 41 - 77 % Lymphocytes 53 (H) 24 - 44 % Monocytes 4 4 - 12 % Eosinophil 2 0 - 5 % Basophil 1 0 - 2 % Normal RBC Morph NORMAL Platelet Estimate SLT INC Absolute Neutrophil Count Manual 5.00 1.8 - 7.0 K/UL COMPREHENSIVE METABOLIC PANEL Collection Time: 09/27/18 4:03 AM # # Low-High Sodium 139 137 - 147 MMOL/L Potassium 3.8 3.5 - 5.1 MMOL/L Chloride 105 98 - 110 MMOL/L Glucose 150 (H) 70 - 100 MG/DL Blood Urea Nitrogen 9 7 - 25 MG/DL Creatinine 0.76 0.4 - 1.00 MG/DL Calcium 8.3 (L) 8.5 - 10.6 MG/DL Total Protein 5.6 (L) 6.0 - 8.0 G/DL Total Bilirubin 0.2 (L) 0.3 - 1.2 MG/DL Albumin 3.4 (L) 3.5 - 5.0 G/DL Alk Phosphatase 52 25 - 110 U/L AST (SGOT) 12 7 - 40 U/L CO2 28 21 - 30 MMOL/L ALT (SGPT) 9 7 - 56 U/L Anion Gap 6 3 - 12 eGFR Non >60 >60 mL/min eGFR >60 >60 mL/min POC GLUCOSE Collection Time: 09/27/18 8:06 AM # # Low-High Glucose, POC 186 (H) 70 - 100 MG/DL LDH-LACTATE DEHYDROGENASE Collection Time: 09/27/18 11:14 AM # # Low-High Lactate Dehydrogenase 211 (H) 100 - 210 U/L HAPTOGLOBIN Collection Time: 09/27/18 11:14 AM # # Low-High Haptoglobin 97 16 - 200 MG/DL DIRECT ANTIGLOBULIN TEST(TITO) Collection Time: 09/27/18 11:14 AM # # Low-High TITO, Broad Spectrum Dash NEG ABO/RH(D) A POS POC GLUCOSE Collection Time: 09/27/18 11:44 AM # # Low-High Glucose, POC 227 (H) 70 - 100 MG/DL Upcoming Appointments within [facility] Future Appointments Date Time Provider Department Center 10/02/2018 10:20 AM Milena Bhatti MD CCC2 [facility] Exam 10/08/2018 10:20 AM Taylor Avelar MD QVIMDIAB [facility] 11/22/2018 3:00 PM Gunnar Kirk MD IMGASTRO [facility] Condition at Discharge Stable Patient Disposition Home Patient Instructions Advised to keep all follow-up appointments. Consults GI and Hematology Patient Instructions/Discharge Medication List Activity as Tolerated It is important to [...] toward your normal activity level at discharge. Report These Signs and Symptoms Please contact your doctor if you have any of the following symptoms: temperature higher than 100 degrees F, uncontrolled pain, persistent nausea and/ or vomiting, difficulty breathing, chest pain, severe abdominal pain, headache, unable to urinate, unable to have bowel movement or drainage with a foul odor. Questions About Your Stay For questions or concerns regarding your hospital stay, call [phone]. If you have an emergency, do not call this number,and please dial 911. For non-urgent matters, please call during normal business hours (8:00AM - 5: 00PM Sunday - Sunday). This will help direct your call to a physician familiar with your care and needs. Please note: * Your hospital physician will not be managing your ongoing care outside of the hospital. Please direct all calls regarding ongoing care to your Primary Care Physician. * All medication refill requests should be directed to your primary care provider, Migue Carlson III. Discharging attending physician: PAULY MORRISON [[id number]] Diabetic Diet You should eat between 1600 and 2000 calories per day. This is equal to 60g ( grams) of carbohydrates per meal, and 30g of carbohydrates for a bedtime snack. If you have questions about your diet after you go home, you can call a dietitian at [phone]. Additional Discharge Instructions KEEP ALL YOUR FOLLOW-UP APPOINTMENTS Current Discharge Medication List START taking these medications Details loperamide (IMODIUM A-D) 2 mg capsule Take one capsule by mouth four times daily as needed for Diarrhea. Take 1 capsules by mouth initially, followed by 1 capsule by mouth after each loose stool up to a maximum of 8 tablets in 24 hours. Qty: 15 capsule, Refills: 0 PRESCRIPTION TYPE: Print pyridoxine (VITAMIN B-6) 50 mg tablet Take one tablet by mouth daily. PRESCRIPTION TYPE: No Print sucralfate(+) (CARAFATE) 100 mg/mL oral suspension Take 10 mL by mouth before meals and at bedtime. Qty: 414 mL, Refills: 0 PRESCRIPTION TYPE: Print CONTINUE these medications which have been CHANGED or REFILLED Details acetaminophen/lidocaine/antacid DS(#) (GI COCKTAIL) 1:1:3 Take 30 mL by mouth four times daily as needed. Qty: 1 Bottle, Refills: 11 PRESCRIPTION TYPE: Print insulin lispro(+) (HUMALOG KWIKPEN INSULIN) 100 [...] 60 capsule, Refills: 1 PRESCRIPTION TYPE: Normal dextroamphetamine-amphetamine (ADDERALL) 20 mg tablet Take 20 mg by mouth twice daily PRESCRIPTION TYPE: Historical Med diclofenac(+) (VOLTAREN) 1 [...] directed as Needed. PRESCRIPTION TYPE: Historical Med HYDROcodone/acetaminophen(+) (NORCO) 10/325 mg tablet Take 1 tablet by mouth every 6 hours as needed for Pain PRESCRIPTION TYPE: Historical Med hydroxychloroquine (PLAQUENIL) 200 mg tablet Take 200 mg by mouth daily. Take with food. PRESCRIPTION TYPE: Historical Med insulin degludec (TRESEBA SOLOSTAR) 100 unit/mL (3 mL) injection pen Inject 15 Units under the skin at bedtime daily. PRESCRIPTION TYPE: Historical Med levocarnitine(+) (LEVOCARNITINE(+)) 500 [...] 1 mg by mouth four times daily. PRESCRIPTION TYPE: Historical Med montelukast (SINGULAIR) 10 [...] daily before meals. PRESCRIPTION TYPE: Historical Med polyethylene glycol 3350 (MIRALAX) 17 g packet [...] hours if needed PRESCRIPTION TYPE: Historical Med tiZANidine (ZANAFLEX) 4 [...] your prior med list in our system electrolyte GUT PEG (NULYTELY, COLYTE, GAVILYTE-N) 420 gram oral solution magnesium oxide (MAG-OX) 400 mg tablet sucralfate (CARAFATE) 1 gram tablet Pauly Morrison M.D. Department of Internal Medicine [facility] [address] [place] [address] [address] [place] [address] (Office Phone) [phone] (Office Fax) Cc: Primary Care Provider Migue Patton [address] [address] SAWYER in this encounter Discharge Instructions * Patient Instructions* Vicky Mccarthy - 09/24/2018 7:30 AM LAST SAWYER INTERVENTIONAL RADIOLOGY DISCHARGE INSTRUCTIONS LYMPH NODE BIOPSY A lymph node biopsy is a procedure in which a tiny amount of tissue or a small sample of cells is removed from a lymph node. This procedure may also be referred to as a fine needle aspiration and may involve one or more lymph nodes in various parts of the body such as the neck, the axillae or armpits, the chest, abdomen, pelvis or the groin area. Lymph nodes are part of the immune system and may become enlarged for reasons such as infection or cancer. POST-PROCEDURE ACTIVITY: A responsible adult must drive you home. If you receive sedation for the procedure,you should not drive, operate heavy machinery or do anything that requires concentration for at least 24 hours after receiving sedation. It is recommended that a responsible adult be with you until morning. POST-PROCEDURE SITE CARE: You will have a small bandage over the site. Keep this dry. You may remove it in 24 hours. You may shower in 24 hours, after removing the bandage. Do not submerge the site underwater for one week (no swimming, hot tub, etc.) Be sure your hands are clean when touching near the site. Do not use ointments, creams or powders on the puncture site. DIET/MEDICATIONS: You may resume your previous diet after the procedure. If you receive sedation or narcotic pain medications, avoid any foods or beverages containing alcohol for at least 24 hours. Please see the Medication reconciliation sheet for instructions regarding resuming your home medications. CALL THE DOCTOR IF: Bright red blood has soaked the bandage. You have pain not relieved by medication. Some soreness at the site is to be expected. You have signs of infections such as: Chills, body aches, fever greater than 101F, redness, swelling or warmth at the puncture site, red streaks leading from the puncture site. For any of the above symptoms or for problems or concerns related to the procedure, call [phone] for Sunday-Sunday 7-5. After-hours and weekends, please call [phone] and ask for the [employer] Receptionist on-call. SAWYER in this encounter Medications at Time of [...] as of this encounter Progress Notes * Niki Parra RN - 09/27/2018 2:33 PM LAST SAWYER Chelsea Castillo discharged on 09/27/2018 at 1433. Discharge instructions reviewed with patient and family. Valuables returned: Personal Items / Valuables: Clothing. Home medications: Functional assessment at discharge complete: Yes . Port flushed with heparin and deaccessed. VSS. A&Ox4. Pt. taken via wheelchair off unit by staff in stable condition. SAWYER * Caitlyn Jerez - 09/27/2018 2:01 PM LAST SAWYER CLINICAL NUTRITION Clinical Nutrition Follow-Up Summary NAME:Chelsea Castillo :1960 AGE: 58 y.o. ADMISSION DATE: 09/17/2018 DAYS ADMITTED: LOS: 9 days Nutrition Assessment of Patient: Malnutrition Assessment: Does not meet criteria Current Oral Intake: Marginally Adequate Estimated Calorie Needs: 5292-0690 (25-28 kcal/kg present wt 63.6kg) Estimated Protein Needs: 63-75 (1-1.2 g/kg present wt) Oral Diet Order: Regular Comments: 58 y.o. female with PMHX of diabetes, anxiety, depression, hypothyroidism, migraine headaches, gastritis, cholecystectomy, thyroidectomy presenting with intractable abdominal pain and nausea/vomiting. Pt is a poor historian, she answered yes/no/I don't know to all questions even if open ended. Pt NPO frequently for tests this admission. Patient NPO this morning, now regular with discharge orders. Patient reports gastric pain remains. Accepted education for home-going: bland foods, small frequent meals, full liquids if needed, protein at each meal. Per EMR wt is stable, -2# in 2 months is not significant. Weight stable during admission. Pt not appropriate for diabetes education, did note A1c 9.8 09/18/18. Spouse acknowledged importance of diabetes diet, familiar with eating pattern and need for insulin. No pressure injuries. Trace BLE edema present. Recommendation: Continue regular diet as tolerated. Encourage intake of 3 meals daily with protein at each meal. Intervention / Plan: Educated patient + spouse on well tolerated, easy to digest foods, high protein diet Monitor PO intake, weight, intake, GI function, labs, medications. Nutrition Diagnosis: Inadequate oral intake Etiology: NPO Signs & Symptoms: procedures since admit Goals: Patient to consume >75% of meals Time Frame: Within 5 Days Status: Partially met;Ongoing Caitlyn Jerez RD, LD *[id number] SAWYER * Pauly Morrison MD - 09/27/2018 1:24 PM LAST SAWYER Discharge Note I examined Ms. Chelsea Castillo on 09/27/2018 prior to discharge. Briefly, she is a 58 y.o.female(PMHx:TBI;DMII;Anxiety;Depression;Hypothyroidism; Migraines;Gastritis) presented on 09/17/2018 w/intractable N/V and abdominal pain, and dysphagia --> found to have lymphadenopathy. Hematology consulted and recommended excisional biopsy but none amenable, so IR-guided biopsy 09/24. GES 09/23. B-cell proliferation. Consultants - GI, General Surgery, Hematology. Has close follow-up with Hematology. Has history of TBI, and is overwhelmed with medical jargon or mention of cancer. OK with as main contact. Suspect anxiety plays a large part in her abdominal pain, and was educated on additional coping strategies. BP 137/69 (BP Source: Arm, Left Upper) | Pulse 101 | Temp 36.9 C (98.5 F) | Ht 165.1 cm (65") | Wt 63 kg (139 lb) | SpO2 99% | BMI 23.13 kg/m Transition of care to the non-hospital setting is now appropriate. Bedside discharge counseling and education was completed with the patient. Please refer to discharge summary from 09/27/2018 for inpatient clinical course. Total time spent educating and coordinating the discharge and transition of care was greater than 31 minutes, including preparing the discharge summary, arranging for prescriptions, as well as integration of care plans with Case Management and Social Work, and Pharmacy. Pauly Morrison M.D. SAWYER * Niki Parra, SHAVON - 09/27/2018 12:10 PM LAST SAWYER Per paz Sue to remove telemetry. SAWYER * Roldan Yu DO - 09/27/2018 10:41 AM LAST SAWYER Hematology Progress Note Assessment/Plan: # Indolent B-cell lymphoma - CD5 pos, CD20 pos, CD23 pos on peripheral flow and lymph node biopsy. Discussed today with Dr. Leon. Cyclin D1 is pending - Likely CLL/SLL - CT C/A/P 06/2018: mild bilateral axillary lymphadenopathy which could be secondary to low-grade lymphoma or CLL as 1 of the differential diagnosis. There was mild bilateral pelvic lymphadenopathy present. - 09/16 CT AP: Mild external iliac lymphadenopathy bilaterally. Divemaster left external iliac lymph node measures 1.6 cm. There is also mildly prominent inguinal lymph nodes bilaterally which are reactive in appearance. - 09/18 CT Chest:Decreased to stable enlarged bilateral axillary and subpectoral lymph Nodes. Unchanged tiny soft tissue nodule along the lateral aspect of the left breast. Unchanged tiny bilateral pulmonary nodules. -09/18 CT neck: Mild submental, bilateral submandibular, left level 2A, and bilateral subpectoral and axillary lymphadenopathy - Repeat CT A/P 09/26 with unchanged mild pelvic adenopathy # Epigastric pain & weight loss -epigastric pain X 1 year, weight loss -09/20 EGD: diffuse erythema, numerous small gastric polyps, biopsies obtained- Increased lamina propria eosinophils, negative for H.pylori. -09/20 colonoscopy: 5 mm transverse polyp removed with cold snare. Tubular adenoma -09/23 NM gastric emptying time finds delayed emptying - EGD with gastritis and numerous small polyps - Gastric biopsy unremarkable to date, with negative H. Pylori - Repeat EGD yesterday does not report gastric polyps. Tissue biopsy with flow was collected. # Iron deficiency anemia - Most recent ferritin 22 with 13% iron sat - No clear source of blood loss Recommendations: - Added peripheral smear, dash, and haptoglobin to assess for chronic hemolysis, but does not need followed up as inpatient. - Likely CLL/SLL. No indications for acute treatment - GI symptoms not clearly due to her CLL/SLL. Repeat EGD done yesterday with biopsy/flow pending - Recommend ferrous sulfate 325mg/d po at discharge - Follow up made with Dr. Nagel on 10/02. She lives in [place], [place] and agrees to follow up with us at [facility]. - We will sign off. Please call with any questions Staff name: Roldan Yu DO Pager [phone] Date: 09/27/2018 Chief Complaint/Reason for consult: Lymphoma Subjective/HPI: Ms Parsons had a repeat EGD yesterday. She continues to have epigastric discomfort and nausea at times. She is eating better. No overt bleeding PHYSICAL EXAM Constitutional: well developed BP: 137/69 (09/27 915) Temp: 36.9 C (98.5 F) (09/27 915) Pulse: 101 (09/27 915) Respirations: 16 PER MINUTE (09/27 915) SpO2: 99 % (09/27 915) O2 Delivery: None (Room Air) (09/27 915) SpO2 Pulse: 89 (09/26 1731) Eyes: conjunctivae clear, pupils equal Respiratory: CTAB, no accessory muscle use Cardiovascular: RRR, no murmur, no LE edema GI: modest epigastric tenderness, no hepatosplenomegaly Psych: insight appears slightly limited Radiology Review: I have personally reviewed all pertinent radiology reports and significant radiology is noted in my HPI or assessment and plan Laboratory Review: I have personally reviewed labs today 09/27/2018 and significant labs are noted in my HPI or assessment/plan Hematology Lab Results Component Value Date/Time WBC 12.5 (H) 09/27/2018 04:03 AM RBC 4.08 09/27/2018 04:03 AM HGB 12.1 09/27/2018 04:03 AM HCT 36.3 09/27/2018 04:03 AM MCV 89.0 09/27/2018 04:03 AM MCH 29.6 09/27/2018 04:03 AM MCHC 33.3 09/27/2018 04:03 AM RDW 17.7 (H) 09/27/2018 04:03 AM PLTCT 437 (H) 09/27/2018 04:03 AM MPV 8.7 09/27/2018 04:03 AM Lab Results Component Value Date/Time NEUT 28 (L) 09/26/2018 04:00 AM ANC 5.00 09/27/2018 04:03 AM ANC 3.70 09/26/2018 04:00 AM LYMA 62 (H) 09/26/2018 04:00 AM ALC 8.00 (H) 09/26/2018 04:00 AM EVELYN 5 09/26/2018 04:00 AM AMC 0.70 09/26/2018 04:00 AM EOSA 4 09/26/2018 04:00 AM AEC 0.50 (H) 09/26/2018 04:00 AM BASA 1 09/26/2018 04:00 AM ABC 0.10 09/26/2018 04:00 AM Comprehensive Metabolic Profile Lab Results Component Value Date/Time NA 139 09/27/2018 04:03 AM K 3.8 09/27/2018 04:03 AM CL 105 09/27/2018 04:03 AM CO2 28 09/27/2018 04:03 AM GAP 6 09/27/2018 04:03 AM BUN 9 09/27/2018 04:03 AM CR 0.76 09/27/2018 04:03 AM GLU 150 (H) 09/27/2018 04:03 AM Lab Results Component Value Date/Time CA 8.3 (L) 09/27/2018 04:03 AM PO4 3.7 09/18/2018 01:43 AM ALBUMIN 3.4 (L) 09/27/2018 04:03 AM TOTPROT 5.6 (L) 09/27/2018 04:03 AM ALKPHOS 52 09/27/2018 04:03 AM AST 12 09/27/2018 04:03 AM ALT 9 09/27/2018 04:03 AM TOTBILI 0.2 (L) 09/27/2018 04:03 AM GFR >60 09/27/2018 04:03 AM GFRAA >60 09/27/2018 04:03 AM SAWYER * Paul Vicente DO - 09/27/2018 9:21 AM LAST SAWYER Endocrinology Progress Note Name: Chelsea Castillo Today's Date: 09/27/2018 Admission Date: 09/17/2018 LOS: 9 days Principal Problem: Abdominal pain Active Problems: Other dysphagia Other constipation Intractable cyclical vomiting with nausea Type 1 diabetes mellitus with complication (HCC) Dysthymia Anxiety Migraine with aura and with status migrainosus, not intractable Epigastric pain Chronic abdominal pain Orthostatic hypotension Acquired hypothyroidism LAD (lymphadenopathy), axillary Reason for Consult: "58 yo female hx of brittle dm, pt with syncopal episoded and hypoglycemia overnight, please assist with dm management" Assessment/Plan: Chelsea Castillo is a 58 y.o. female with arthritis, osteoporosis, hypothyroidism and DM type 1 who presented on 09/18/2018 with intractable nausea /vomiting in the setting of chronic abdomina pain. Endocrinology consulted for DM management. 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 Patton PCP for diabetes management Diabetic-complications assessment: Retinopathy: yes. . Peripheral neuropathy: yes Autonomic neuropathy: no Nephropathy: No Macrovascular complications: no known CAD Risk Factor assessment Last lipid profile Lab Results Component Value Date CHOL 176 09/18/2018 TRIG 161 (H) 09/18/2018 HDL 53 09/18/2018 LDL 96 09/18/2018 VLDL 32 09/18/2018 NONHDLCHOL 123 09/18/2018 BP Readings from Last 1 Encounters: 09/27/18 143/69 On ACEi/ARB?: no On Statin?: no Acute on Chronic abdominal pain Lymphadenopathy Being worked up by hematology Hypothyroidism 09/18/2018 TSH 6.14 On levothyroxine 175 mcg daily Impression / Recommendations Continue Lantus to 15 units nightly Continue mealtime aspart to 8u post-meal. Continue low-dose correction factor Pt was discussed with Dr. Rosio Vicente, DO Subjective Chelsea Castillo is a 58 y.o. female. No acute events overnight. No acute overnight events. Patient went for repeat EGD yesterday. Remains NPO. Improving abd pain and nausea. Physical Exam General: Alert, cooperative, appears to be in pain. Lungs: Non-labored Abdomen: Non-distended Skin: No rashes Extremities: No cyanosis Medications Scheduled Meds: carBAMazepine (TEGRETOL) tablet 400 mg 400 mg Oral QDAY duloxetine DR (CYMBALTA) capsule 60 mg 60 mg Oral BID electrolyte GUT PEG (NULYTELY, COLYTE, GAVILYTE-N) oral solution 4 L 4 L Oral As Prescribed fludrocortisone (FLORINEF) tablet 0.3 mg 0.3 mg Oral QDAY insulin aspart U-100 (NOVOLOG FLEXPEN) injection PEN 0-7 Units 0-7 Units Subcutaneous ACHS insulin aspart U-100 (NOVOLOG FLEXPEN) injection PEN 8 Units 8 Units Subcutaneous TID after meals insulin glargine (LANTUS SOLOSTAR, BASAGLAR) injection PEN 15 Units 15 Units Subcutaneous QHS levothyroxine (SYNTHROID) tablet 175 mcg 175 mcg Oral QDAY 30 min before breakfast pyridoxine (vitamin B6) (VITAMIN B-6) injection 50 mg 50 mg Intravenous QDAY sucralfate (CARAFATE) oral suspension 1 g/10ml Patient Own Med 1 g Oral ACHS Continuous Infusions: lactated ringers infusion 100 mL/hr at 09/27/18 0153 PRN and Respiratory Meds:acetaminophen Q6H PRN, acetaminophen/lidocaine/antacid DS(#) QID PRN, ALPRAZolam BID PRN, electrolyte GUT PEG PRN (Staff Appraiser from Rx), fentaNYL citrate PF Q2H PRN, loperamide PRN, ondansetron (ZOFRAN) IV Q6H PRN, zolpidem QHS PRN Objective Vital Signs: Last Filed Vital Signs: 24 Hour Range BP: 143/69 (09/27 648) Temp: 37.2 C (98.9 F) (09/27 648) Pulse: 100 (09/27 648) Respirations: 16 PER MINUTE (09/27 648) SpO2: 100 % (09/27 648) O2 Delivery: None (Room Air) (09/27 648) SpO2 Pulse: 89 (09/26 1731) BP: (115-162)/(61-91) Temp: [36.6 C (97.9 F)-37.2 C (98.9 F)] Pulse: [83-104] Respirations: [14 PER MINUTE-22 PER MINUTE] SpO2: [97 %-100 %] O2 Delivery: None (Room Air) Intensity Pain Scale (Self Report): 9 (09/27/18 0843) Vitals: 09/18/18 0112 09/18/18 1400 09/18/18 1447 Weight: 63.3 kg (139 lb 8.8 oz) 63.3 kg (139 lb 8.8 oz) 63 kg (139 lb) Intake/Output Summary: (Last 24 hours) Intake/Output Summary (Last 24 hours) at 09/27/18 0921 Last data filed at 09/26/18 1710 Gross per 24 hour Intake 100 ml Output 300 ml Net -200 ml Stool Occurrence: 1 Lab Review 24-hour labs: Results for orders placed or performed during the hospital encounter of (from the past 24 hour(s)) POC GLUCOSE Collection Time: 09/26/18 11:16 AM Result Value Ref Range Glucose, POC 164 (H) 70 - 100 MG/DL POC GLUCOSE Collection Time: 09/26/18 4:06 PM Result Value Ref Range Glucose, POC 185 (H) 70 - 100 MG/DL LEUKEMIA/LYMPHOMA PANEL FLUID/TISSUE Collection Time: 09/26/18 5:14 PM Result Value Ref Range Leuk/Lymph Interpretation SEE PATHOLOGY REPORT Specimen/LLM TISSUE LEUKEMIA/LYMPHOMA PANEL FLUID/TISSUE Collection Time: 09/26/18 5:14 PM Result Value Ref Range Leuk/Lymph Interpretation SEE PATHOLOGY REPORT Specimen/LLM TISSUE POC GLUCOSE Collection Time: 09/26/18 6:30 PM Result Value Ref Range Glucose, POC 202 (H) 70 - 100 MG/DL POC GLUCOSE Collection Time: 09/26/18 8:46 PM Result Value Ref Range Glucose, POC 179 (H) 70 - 100 MG/DL CBC AND DIFF Collection Time: 09/27/18 4:03 AM Result Value Ref Range White Blood Cells 12.5 (H) 4.5 - 11.0 K/UL RBC 4.08 4.0 - 5.0 M/UL Hemoglobin 12.1 12.0 - 15.0 GM/DL Hematocrit 36.3 36 - 45 % MCV 89.0 80 - 100 FL MCH 29.6 26 - 34 PG MCHC 33.3 32.0 - 36.0 G/DL RDW 17.7 (H) 11 - 15 % Platelet Count 437 (H) 150 - 400 K/UL MPV 8.7 7 - 11 FL Segmented Neutrophils 40 (L) 41 - 77 % Lymphocytes 53 (H) 24 - 44 % Monocytes 4 4 - 12 % Eosinophil 2 0 - 5 % Basophil 1 0 - 2 % Normal RBC Morph NORMAL Platelet Estimate SLT INC Absolute Neutrophil Count Manual 5.00 1.8 - 7.0 K/UL COMPREHENSIVE METABOLIC PANEL Collection Time: 09/27/18 4:03 AM Result Value Ref Range Sodium 139 137 - 147 MMOL/L Potassium 3.8 3.5 - 5.1 MMOL/L Chloride 105 98 - 110 MMOL/L Glucose 150 (H) 70 - 100 MG/DL Blood Urea Nitrogen 9 7 - 25 MG/DL Creatinine 0.76 0.4 - 1.00 MG/DL Calcium 8.3 (L) 8.5 - 10.6 MG/DL Total Protein 5.6 (L) 6.0 - 8.0 G/DL Total Bilirubin 0.2 (L) 0.3 - 1.2 MG/DL Albumin 3.4 (L) 3.5 - 5.0 G/DL Alk Phosphatase 52 25 - 110 U/L AST (SGOT) 12 7 - 40 U/L CO2 28 21 - 30 MMOL/L ALT (SGPT) 9 7 - 56 U/L Anion Gap 6 3 - 12 eGFR Non >60 >60 mL/min eGFR >60 >60 mL/min POC GLUCOSE Collection Time: 09/27/18 8:06 AM Result Value Ref Range Glucose, POC 186 (H) 70 - 100 MG/DL Point of Care Testing (Last 24 hours) Glucose: (!) 150 (09/27/18 0403) POC Glucose (Download): (!) 186 (09/27/18 0806) Radiology and other Diagnostics Review: Pertinent radiology reviewed. SAWYER Associated attestation - Taylor Avelar MD - 09/27/2018 6:51 PM LAST SAWYER ATTESTATION I personally performed the ortega portions of the E/M visit, discussed case with resident and concur with resident documentation of history, physical exam, assessment, and treatment plan unless otherwise noted. Staff name: Taylor Avelar MD Date: 09/27/2018 * Niki Parra RN - 09/26/2018 3:39 PM LAST SAWYER Per nuc med, pt. scheduled for PET scan tomorrow at 1430. Must be NPO and no short acting insulin given within 6 hours of procedure. Long acting insulin ok to give. Please obtain blood sugar at 1400 tomorrow. SAWYER * Pauly Morrison MD - 09/26/2018 12:51 PM LAST SAWYER Progress Note - Internal Medicine Brief Clinical Summary 58 y.o.female(PMHx:TBI;DMII;Anxiety;Depression;Hypothyroidism;Migraines; Gastritis) presented on 09/17/2018 w/intractable N/V and abdominal pain, and dysphagia --> found to have lymphadenopathy. Hematology consulted and recommended excisional biopsy but none amenable, so IR-guided biopsy 09/24. GES 09/23. Consultants - GI, General Surgery, Hematology. 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 Noted on flow cytometry collected 09/22/2018. Tissue specimen obtained from EGD with biopsy not amenable to flow cytometry. Repeat EGD 09/26/2018. Subacute dysphagia associate with nausea and vomiting (autonomic neuropathy versus GERD) | Progressive. EGD performed 09/20/2018 demonstrated normal esophagus with diffuse gastric erythema and numerous gastric polyps that were removed. Gastroenterology submitting cassettes from stomach biopsy for additional testing in light of B-cell proliferation, but cells not amenable. Repeat EGD 09/26/2018. Chronic epigastric pain (diabetic gastroparesis versus other) | Ongoing, but improved overall. Has multiple admissions and ED visits for similar abdominal pain. Concern for polypharmacy at home with opioids administered each visit for symptomatic management. CT scan on admission was unremarkable apart from a GI tract. Tense from stomach to rectum even though patient reported no intake for 3 days. Colonoscopy performed 09/20/2018 demonstrated normal terminal ileum and colonic mucosa with a 5 mm polyp removed. Lymphadenopathy (occult malignancy) | CT scan at the time of presentation demonstrated external iliac lymphadenopathy 1.6 cm short axis lymph node noted. Was also found to have lymphadenopathy in the axillary area and had originally had plans to be seen by Oncology as an outpatient. Was originally recommended to have an excisional biopsy of the external iliac node, however, they recommended IR biopsy, and L axillary LN FNA obtained 09/24/18. Hypoglycemia | Resolved afterhospital event with associated loss of consciousness. Iron deficiency | Noted on iron studies collected 07/19/2018. History of TBI | By report, some cognitive difficulty but no clear documentation of cognitive testing. Becomes easily perturbed with complex discussions. Type I diabetes mellitus | Uncontrolled, but improving control. Most recent hemoglobin A1c 9.8% on 09/18/2018 which is down from 07/19/2018 when it was 11.4% . Endocrinology consulted 09/19/2018. Diabetes comp located by peripheral neuropathy proliferative diabetic retinopathy. 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 At the time of admission TSH 6.1 and free T4 1.0. Orthostasis (autonomic neuropathy) | Intermittent, but reasonably controlled on fludrocortisone 0.3 mg daily. Noninfectious diarrhea | Improving. Noted on 09/23/2018 and all stool cultures and C. difficile negative. Started on Imodium 09/25/2018. Depression (situational versus organic) | Controlled. Seen by Psychiatry, who recommended continuation of duloxetine 60 mg twice daily, and a lower dose of alprazolam to 0.5 mg twice daily as well as lowered dose of zolpidem. Psychology consulted. At risk for DVT (hospitalization/immobilization) | Pharmacologic prophylaxis on hold due to anticipated procedure Plan EGD with biopsy 09/26/[address] abdomen and pelvis based on acute epigastric pain this morning Will check orthostatics prior to discharge In light of mild elevation of LDH, obtain PET scan Continue Imodium for diarrhea, which is improving Will need hepatitis B immunization Subjective Continue diarrhea is improving in both consistency and frequency. Denies fever , chills, nausea, vomiting. This morning, noticed the acute onset of epigastric pain that she says is nonradiating and similar in character to her previous symptoms but more severe. Responded to IV fentanyl dose this morning. States that if she had pain like this at home she would present to the emergency room. Highly tearful. Review of Systems CONS: No subjective fever, no chills. CVS: No palpitations. No chest pain. RESP: No dyspnea. No cough. GI: Epigastric abdominal pain. Diarrhea or constipation. No nausea, no vomiting. Objective Vital Signs Temp: [36.6 C (97.8 F)-37.1 C (98.7 F)] Pulse: [82-113] Respirations: [16 PER MINUTE-18 PER MINUTE] SpO2: [99 %-100 %] BP: (133-162)/(60-91) I/Os from Yesterday's Shift 09/25 0701 - 09/26 0700 In: 1680 [P.O.:1680] Out: 975 [Urine:975] Physical Examination GEN: Alert and oriented x3 (person/place/time), NAD. CVS: S1/S2 audible, no murmurs audible. Appears and feels warm and well- perfused. RESP: Lungs clear to ascultation. No wheezes, rhonchi, nor crackles. GI: Abdomen soft. Epigastric tenderness. No rebound, guarding, no rigidity SKIN: Warm. Dry. Lab Studies Recent labs reviewed. Notable for: Hemoglobin 12.3 Platelet count 414 White blood cell count 13 Iron 41 Percent saturation 13 TIBC 323 Ferritin 22 Sodium 138 Potassium 4.3 Chloride 103 Bicarb 29 Anion gap 6 BUN 8 Creatinine 0.76 LDH 218 LFTs within normal Imaging Studies Recent imaging reviewed. Notable for: Colonoscopy performed 09/20/2018 with normal terminal ileal and colonic mucosa with a 5 mm transverse polyp removed with a cold snare. EGD performed 09/20/2018 with normal esophagus and the GE junction at 36 with random biopsies obtained. Diffuse erythema with small gastric polyps in the stomach and normal duodenum. Microbiological Studies Recent microbiology reviewed. Notable for: Blood culture obtained 07/19/2018 with no growth at 5 days (final) Pathology Recent pathology reviewed and notable for: Surgical pathology obtained 09/20/2018 from small bowel mucosa biopsy with normal villous architecture with no diagnostic abnormalities. Gastric mucosa with increased lamina propria eosinophils and squamous cell mucosa with distal esophageal biopsy with no diagnostic abnormalities and squamous mucosa of the proximal esophagus with no diagnostic abnormalities. Colonic mucosa and transverse colon polyp 6 mm biopsy demonstrating tubular adenoma. Flow cytometry obtained 09/22/2018 with evidence of B-cell proliferation Discharge Planning/Barriers to Discharge Anticipate discharge to previous setting once symptoms improved As outpatient already established with Hematology Future Appointments Date Time Provider Department Center 10/02/2018 10:20 AM Milena Bhatti MD [facility] Exam 10/08/2018 10:20 AM Taylor Avelar MD [facility]VIMDIAB [facility] IM 11/22/2018 3:00 PM Gunnar Kirk MD IMGASTRO [facility] Daily Rounding Checklist Line necessity Sotelo necessity Telemetry necessity PT/OT necessity DME needs evaluated and supplied Diet at highest level IV --> PO medications Teaching needs Pharmacy needs Wound care needs Planned D/C location (Home/LTAC/SNF/Rehab/Other) Pauly Morrison M.D. Department of Internal Medicine 09/26/2018 12:51 PM SAWYER * Paul Vicente DO - 09/26/2018 7:20 AM LAST SAWYER Endocrinology Progress Note Name: Chelsea Castillo Today's Date: 09/26/2018 Admission Date: 09/17/2018 LOS: 8 days Principal Problem: Abdominal pain Active Problems: Other dysphagia Other constipation Intractable cyclical vomiting with nausea Type 1 diabetes mellitus with complication (HCC) Dysthymia Anxiety Migraine with aura and with status migrainosus, not intractable Epigastric pain Chronic abdominal pain Orthostatic hypotension Acquired hypothyroidism LAD (lymphadenopathy), axillary Reason for Consult: "58 yo female hx of brittle dm, pt with syncopal episoded and hypoglycemia overnight, please assist with dm management" Assessment/Plan: Chelsea Castillo is a 58 y.o. female with arthritis, osteoporosis, hypothyroidism and DM type 1 who presented on 09/18/2018 with intractable nausea /vomiting in the setting of chronic abdomina pain. Endocrinology consulted for DM management. 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 Patton PCP for diabetes management Diabetic-complications assessment: Retinopathy: yes. . Peripheral neuropathy: yes Autonomic neuropathy: no Nephropathy: No Macrovascular complications: no known CAD Risk Factor assessment Last lipid profile Lab Results Component Value Date CHOL 176 09/18/2018 TRIG 161 (H) 09/18/2018 HDL 53 09/18/2018 LDL 96 09/18/2018 VLDL 32 09/18/2018 NONHDLCHOL 123 09/18/2018 BP Readings from Last 1 Encounters: 09/26/18 139/69 On ACEi/ARB?: no On Statin?: no Acute on Chronic abdominal pain Lymphadenopathy Being worked up by hematology Hypothyroidism 09/18/2018 TSH 6.14 On levothyroxine 175 mcg daily Impression / Recommendations Missed breakfast and lunch dose, leading to significant hyperglycemia. Increase Lantus to 15 units nightly Switch mealtime aspart to 8u post-meal. Continue low-dose correction factor Once patient starts eating again will require mealtime insulin Pt was discussed with Dr. Rosio Perdomo Chelsea Castillo is a 58 y.o. female. No acute events overnight. She is reporting significant ABD pain this afternoon. Tolerating PO well yesterday, currently NPO for procedure. Physical Exam General: Alert, cooperative, appears to be in pain. Lungs: Non-labored Abdomen: Non-distended Skin: No rashes Extremities: No cyanosis Medications Scheduled Meds: carBAMazepine (TEGRETOL) tablet 400 mg 400 mg Oral QDAY duloxetine DR (CYMBALTA) capsule 60 mg 60 mg Oral BID electrolyte GUT PEG (NULYTELY, COLYTE, GAVILYTE-N) oral solution 4 L 4 L Oral As Prescribed fludrocortisone (FLORINEF) tablet 0.3 mg 0.3 mg Oral QDAY insulin aspart U-100 (NOVOLOG FLEXPEN) injection PEN 0-7 Units 0-7 Units Subcutaneous ACHS insulin aspart U-100 (NOVOLOG FLEXPEN) injection PEN 8 Units 8 Units Subcutaneous TID w/ meals insulin glargine (LANTUS SOLOSTAR, BASAGLAR) injection PEN 13 Units 13 Units Subcutaneous QHS levothyroxine (SYNTHROID) tablet 175 mcg 175 mcg Oral QDAY 30 min before breakfast sucralfate (CARAFATE) oral suspension 1 g/10ml Patient Own Med 1 g Oral ACHS Continuous Infusions: PRN and Respiratory Meds:acetaminophen Q6H PRN, acetaminophen/lidocaine/antacid DS(#) QID PRN, ALPRAZolam BID PRN, electrolyte GUT PEG PRN (Staff Appraiser from Rx), loperamide PRN, ondansetron (ZOFRAN) IV Q6H PRN, zolpidem QHS PRN Objective Vital Signs: Last Filed Vital Signs: 24 Hour Range BP: 139/69 (09/26 457) Temp: 36.9 C (98.5 F) (09/26 457) Pulse: 100 (09/26 457) Respirations: 16 PER MINUTE (09/26 457) SpO2: 100 % (09/26 457) O2 Delivery: None (Room Air) (09/26 457) BP: (133-159)/(60-82) Temp: [36.6 C (97.8 F)-37.1 C (98.7 F)] Pulse: [82-113] Respirations: [16 PER MINUTE-18 PER MINUTE] SpO2: [99 %-100 %] O2 Delivery: None (Room Air) Intensity Pain Scale (Self Report): Asleep (09/26/18 0537) Vitals: 09/18/18 0112 09/18/18 1400 09/18/18 1447 Weight: 63.3 kg (139 lb 8.8 oz) 63.3 kg (139 lb 8.8 oz) 63 kg (139 lb) Intake/Output Summary: (Last 24 hours) Intake/Output Summary (Last 24 hours) at 09/26/18 0721 Last data filed at 09/26/18 0648 Gross per 24 hour Intake 1680 ml Output 975 ml Net 705 ml Stool Occurrence: 1 Lab Review 24-hour labs: Results for orders placed or performed during the hospital encounter of (from the past 24 hour(s)) POC GLUCOSE Collection Time: 09/25/18 8:22 AM Result Value Ref Range Glucose, POC 181 (H) 70 - 100 MG/DL POC GLUCOSE Collection Time: 09/25/18 12:22 PM Result Value Ref Range Glucose, POC 413 (H) 70 - 100 MG/DL POC GLUCOSE Collection Time: 09/25/18 3:57 PM Result Value Ref Range Glucose, POC 302 (H) 70 - 100 MG/DL POC GLUCOSE Collection Time: 09/25/18 5:29 PM Result Value Ref Range Glucose, POC 258 (H) 70 - 100 MG/DL POC GLUCOSE Collection Time: 09/25/18 9:18 PM Result Value Ref Range Glucose, POC 128 (H) 70 - 100 MG/DL CBC AND DIFF Collection Time: 09/26/18 4:00 AM Result Value Ref Range White Blood Cells 13.0 (H) 4.5 - 11.0 K/UL RBC 4.19 4.0 - 5.0 M/UL Hemoglobin 12.3 12.0 - 15.0 GM/DL Hematocrit 37.5 36 - 45 % MCV 89.4 80 - 100 FL MCH 29.3 26 - 34 PG MCHC 32.8 32.0 - 36.0 G/DL RDW 17.8 (H) 11 - 15 % Platelet Count 414 (H) 150 - 400 K/UL MPV 8.9 7 - 11 FL Neutrophils 28 (L) 41 - 77 % Lymphocytes 62 (H) 24 - 44 % Monocytes 5 4 - 12 % Eosinophils 4 0 - 5 % Basophils 1 0 - 2 % Absolute Neutrophil Count 3.70 1.8 - 7.0 K/UL Absolute Lymph Count 8.00 (H) 1.0 - 4.8 K/UL Absolute Monocyte Count 0.70 0 - 0.80 K/UL Absolute Eosinophil Count 0.50 (H) 0 - 0.45 K/UL Absolute Basophil Count 0.10 0 - 0.20 K/UL COMPREHENSIVE METABOLIC PANEL Collection Time: 09/26/18 4:00 AM Result Value Ref Range Sodium 138 137 - 147 MMOL/L Potassium 4.3 3.5 - 5.1 MMOL/L Chloride 103 98 - 110 MMOL/L Glucose 218 (H) 70 - 100 MG/DL Blood Urea Nitrogen 8 7 - 25 MG/DL Creatinine 0.76 0.4 - 1.00 MG/DL Calcium 8.9 8.5 - 10.6 MG/DL Total Protein 6.0 6.0 - 8.0 G/DL Total Bilirubin 0.3 0.3 - 1.2 MG/DL Albumin 3.8 3.5 - 5.0 G/DL Alk Phosphatase 54 25 - 110 U/L AST (SGOT) 13 7 - 40 U/L CO2 29 21 - 30 MMOL/L ALT (SGPT) 10 7 - 56 U/L Anion Gap 6 3 - 12 eGFR Non >60 >60 mL/min eGFR >60 >60 mL/min LDH-LACTATE DEHYDROGENASE Collection Time: 09/26/18 4:00 AM Result Value Ref Range Lactate Dehydrogenase 218 (H) 100 - 210 U/L URIC ACID Collection Time: 09/26/18 4:00 AM Result Value Ref Range Uric Acid <1.5 (L) 2.0 - 7.0 MG/DL IRON + BINDING CAPACITY + %SAT+ FERRITIN Collection Time: 09/26/18 4:00 AM Result Value Ref Range Iron 41 (L) 50 - 160 MCG/DL Iron Binding-TIBC 323 270 - 380 MCG/DL % Saturation 13 (L) 28 - 42 % Ferritin 22 10 - 200 NG/ML Point of Care Testing (Last 24 hours) Glucose: (!) 218 (09/26/18 0400) POC Glucose (Download): (!) 128 (09/25/182117) Radiology and other Diagnostics Review: Pertinent radiology reviewed. SAWYER Associated attestation - Taylor Avelar MD - 09/26/2018 10:02 PM LAST SAWYER ATTESTATION I personally performed the ortega portions of the E/M visit, discussed case with resident and concur with resident documentation of history, physical exam, assessment, and treatment plan unless otherwise noted. Staff name: Taylor Avelar MD Date: 09/26/2018 * Negin Larry MD - 09/25/2018 5:51 PM LAST SAWYER - Unable to perform flow cytometry on gastric biopsies, since all tissue has been used, but there may be a possibility of immunostaining to evaluate for lymphoma - Per hematology patient's possible CLL/SLL would not be able to explain her weight loss and abdominal pain. - So far GI w/u has shown delayed gastric emptying, being treated with Reglan Patient was discussed with Dr. Larry. Chiki Abbott MD Gastroenterology & Hepatology Fellow Pager [phone] Please schedule EGD for Youssef-Biopsies for flow cytometry. Gastric polyps were non significant fundic gland polyp, but gastric biopsies showed Eosinophil infiltration, suspicious for lymphoma infiltration of the GI tract. SAWYER * Juana Cheung RN - 09/25/2018 4:08 PM LAST SAWYER Pt lunch time blood sugar 413. Two hour recheck 302. Pt had refused 8 units novolog insulin with breakfast due to anxiety regarding low blood sugars. Med [facility] P paged, Dr. Jaramillo notified. Requested RN to recheck blood sugar at dinner and treat appropriately. SAWYER * Juana Cheung RN - 09/25/2018 1:34 PM LAST SAWYER Pt AOx4, VSS. ST on tele, HR 110s. C/o abdominal pain 06/28, see eMAR. L axillary puncture, CDI, JANES. at bedside. Will continue to monitor. SAWYER * Roldan Yu DO - 09/25/2018 12:14 PM LAST SAWYER General Progress Note ATTESTATIONI personally interviewed and examined the patient. I have reviewed the history and ROS outlined by the nurse practitioner. Chief Complaint/Reason for consult: Lymphadenopathy Subjective/HPI: Ms Parsons continues to have nausea and poor appetite with epigastric discomfort. She denies fevers, but has night sweats at times. Her is at bedside PHYSICAL EXAM Constitutional: well developed BP: 159/82 (11/07 1740) Temp: 36.6 C (97.8 F) (09/25 1740) Pulse: 82 (09/25 1740) Respirations: 16 PER MINUTE (09/25 1740) SpO2: 100 % (09/25 1740) O2 Delivery: None (Room Air) (09/25 1740) Eyes: conjunctivae clear, pupils equal Respiratory: CTAB, no accessory muscle use Cardiovascular: RRR, no murmur, no LE edema GI: nontender, no hepatosplenomegaly Psych: insight appears limited Radiology Review: I have personally reviewed all pertinent radiology reports and significant radiology is noted in my HPI or assessment and plan Laboratory Review: I have personally reviewed labs today 09/25/2018 and significant labs are noted in my HPI or assessment/plan Assessment/Plan: # Indolent B-cell lymphoma - CD5 pos, CD20 pos, 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 Pylori - Delayed gastric emptying # Iron deficiency anemia - Last ferritin 6 - No clear source of blood loss Recommendations: - Added LDH, uric acid, iron panel, hep B core IgG - Will await final path from lymph node and gastric biopsies. Unfortunately flow cytometry will not be available - If LDH elevated, would consider PET scan - Unclear source of iron deficiency - GI symptoms not clearly due to her lymphoma/leukemia - She lives in [place], [place] and agrees to follow up with us at [facility]. Staff name: Roldan uY DO Pager [phone] Date: 09/25/2018 Name: Chelsea Castillo Today's Date: 09/25/2018 Admission Date: 09/17/2018 LOS: 7 days Assessment/Plan: Principal Problem: Abdominal pain Active Problems: Other dysphagia Other constipation Intractable cyclical vomiting with nausea Type 1 diabetes mellitus with complication (HCC) Dysthymia Anxiety Migraine with aura and with status migrainosus, not intractable Epigastric pain Chronic abdominal pain Orthostatic hypotension Acquired hypothyroidism LAD (lymphadenopathy), axillary 58-year-old female with past medical history of hypothyroidism, diabetes mellitus, anxiety, depression, chronic abdominal pain with nausea and vomiting, who presented to the emergency room with complaint of nausea and vomiting along with abdominal pain. Hematology service was consulted because of lymphadenopathy. 1. LAD/B-symptoms -CT C/A/P 06/2018: mild bilateral axillary lymphadenopathy which could be secondary to low-grade lymphoma or CLL as 1 of the differential diagnosis. There was mild bilateral pelvic lymphadenopathy present. -09/16 CT AP: Mild external iliac lymphadenopathy bilaterally. Divemaster left external iliac lymph node measures 1.6 cm. There is also mildly prominent inguinal lymph nodes bilaterally which are reactive in appearance. -09/18 CT Chest:Decreased to stable enlarged bilateral axillary and subpectoral lymph Nodes. Unchanged tiny soft tissue nodule along the lateral aspect of the left breast. Unchanged tiny bilateral pulmonary nodules. -09/18 CT neck: Mild submental, bilateral submandibular, left level 2A, and bilateral subpectoral and axillary lymphadenopathy -Hgb 11 with severe ZHAO -WBC 10.5 with ALC 6900 -peripheral flow cytometry: CD5 positive B-cell proliferation, 12.8% -09/[address] bx: pending. Flow cytometry was not sent and can not be added 2. GI -epigastric pain X 1 year, weight loss -09/20 EGD: diffuse erythema, numerous small gastric polyps, biopsies obtained- Increased lamina propria eosinophils, negative for H.pylori. -09/20 colonoscopy: 5 mm transverse polyp removed with cold snare. Tubular adenoma -09/23 NM gastric emptying time finds delayed emptying 3. ZHAO -Hgb 11 -07/19/18: ferritin 6, TIBC 383, % sat 6, iron 24 Recommendations: -adding LDH, iron panel, uric acid, hepatitis B core IgG -Ideally would have liked to add of flow cytometry to previous stomach biopsies but this can not be done. Spoke with pathology who will add immuno stains looking for lymphoma. If this is a standard CLL/SLL it would be highly unusual to be the cause of her weight loss and abdominal pain. -F/u lymph node pathology (note it was not sent for flow cytometry and can not be added after the fact), if not diagnostic may need additional excisional biopsy, bone marrow biopsy and/or PET scan. -F/u CT scans in 12 months for lung nodules. -consider mammography -she is from around [place], [place]. Will help coordinate hematology f/u. Pt seen with . Patient made aware of lymphoma findings. Subjective Chelsea Julien Castillo is a 58 y.o. female. Patient remains very tired. Continues to have epigastric pain. Does not get better or worse with food but can hardly eat, has been eating mainly crackers for months and lately not even that. Currently having diarrhea, yesterday says she went every hour. Denies any signs of bleeding. Medications Scheduled Meds: carBAMazepine (TEGRETOL) tablet 400 mg 400 mg Oral QDAY duloxetine DR (CYMBALTA) capsule 60 mg 60 mg Oral BID electrolyte GUT PEG (NULYTELY, COLYTE, GAVILYTE-N) oral solution 4 L 4 L Oral As Prescribed fludrocortisone (FLORINEF) tablet 0.3 mg 0.3 mg Oral QDAY insulin aspart U-100 (NOVOLOG FLEXPEN) injection PEN 0-7 Units 0-7 Units Subcutaneous ACHS insulin aspart U-100 (NOVOLOG FLEXPEN) injection PEN 8 Units 8 Units Subcutaneous TID w/ meals insulin glargine (LANTUS SOLOSTAR, BASAGLAR) injection PEN 13 Units 13 Units Subcutaneous QHS levothyroxine (SYNTHROID) tablet 175 mcg 175 mcg Oral QDAY 30 min before breakfast sucralfate (CARAFATE) oral suspension 1 g/10ml Patient Own Med 1 g Oral ACHS Continuous Infusions: PRN and Respiratory Meds:acetaminophen Q6H PRN, acetaminophen/lidocaine/antacid DS(#) QID PRN, ALPRAZolam BID PRN, electrolyte GUT PEG PRN (Staff Appraiser from Rx), loperamide PRN, ondansetron (ZOFRAN) IV Q6H PRN, zolpidem QHS PRN Review of Systems: A 14 point review of systems was negative except for: as per subjective Objective: Vital Signs: Last Filed Vital Signs: 24 Hour Range BP: 139/61 (09/25 930) Temp: 36.7 C (98 F) (09/25 930) Pulse: 92 (09/25 930) Respirations: 16 PER MINUTE (09/25 930) SpO2: 100 % (09/25 930) O2 Delivery: None (Room Air) (09/25 930) BP: (119-146)/(58-82) Temp: [36.4 C (97.5 F)-36.9 C (98.4 F)] Pulse: [87-108] Respirations: [16 PER MINUTE-18 PER MINUTE] SpO2: [99 %-100 %] O2 Delivery: None (Room Air) Intensity Pain Scale (Self Report): 8 (09/25/18 1145) Vitals: 09/18/18 0112 09/18/18 1400 09/18/18 1447 Weight: 63.3 kg (139 lb 8.8 oz) 63.3 kg (139 lb 8.8 oz) 63 kg (139 lb) Intake/Output Summary: (Last 24 hours) Intake/Output Summary (Last 24 hours) at 09/25/18 1214 Last data filed at 09/25/18 1100 Gross per 24 hour Intake 1920 ml Output 1475 ml Net 445 ml Stool Occurrence: 3 Physical Exam General: A&O, no apparent distress, in the chair, tired Head: Normocephalic, without obvious abnormality, atraumatic Eyes: PERRL, anicteric sclera, conjunctiva and lids normal Nose: Nares normal. Septum midline. Mucosa normal. No drainageor sinus tenderness Neck: Supple, no rigidity Oropharynx: No erythema, exudates, lesions or petechiae Respiratory: Clear to ausculation bilaterally, no crackles/rhonchi/wheezes Cardiovascular: Regular rate, No murmurs, rubs, clicks or gallops Abdomen: Pain to epigastric region to palpation. BS normal all quadrants, soft, non-distended Neurological: No focal deficits. Normal strength and sensation throughout Extremities: No peripheral edema, no cyanosis or clubbing Pulses: 3+ and symmetric, all extremities Skin: Thinning hair. Color, texturs and turgor normal. No rashes or lesions Psychosocial: Appropriate Lab Review 24-hour labs: Results for orders placed or performed during the hospital encounter of (from the past 24 hour(s)) POC GLUCOSE Collection Time: 09/24/18 6:05 PM Result Value Ref Range Glucose, POC 209 (H) 70 - 100 MG/DL POC GLUCOSE Collection Time: 09/24/18 8:36 PM Result Value Ref Range Glucose, POC 109 (H) 70 - 100 MG/DL OVA AND PARASITES, FECAL Collection Time: 09/25/18 12:02 AM Result Value Ref Range Battery Name OVA AND PARASITES Specimen Description FECES Special Requests NONE Ova & Parasites SEE RESULTS OF GIARDIA AND CRYPTOSPORIDIUM ANTIGENS BY EIA. THE ANTIGEN DETECTION ASSAY IS MORE SENSITIVE FOR THESE PARASITES. PLEASE CONTACT THE MICROBIOLOGY LAB AT [phone] TO REQUEST FURTHER PARASITE TESTING. Report Status FINAL 09/25/2018 CRYPTOSPORIDUM,FECAL Collection Time: 09/25/18 12:02 AM Result Value Ref Range Battery Name CRYPTOSPORIDIUM Specimen Description FECES Special Requests NONE Cryptosporidium NEGATIVE FOR CRYPTOSPORIDIUM Report Status FINAL 09/25/2018 GIARDIA SCREEN,FECAL Collection Time: 09/25/18 12:02 AM Result Value Ref Range Battery Name GIARDIA SCREEN Specimen Description FECES Special Requests NONE Giardia EIA NEGATIVE FOR GIARDIA (LAMBLIA) INTESTINALIS Report Status FINAL 09/25/2018 CBC AND DIFF Collection Time: 09/25/18 3:19 AM Result Value Ref Range White Blood Cells 10.5 4.5 - 11.0 K/UL RBC 3.78 (L) 4.0 - 5.0 M/UL Hemoglobin 11.0 (L) 12.0 - 15.0 GM/DL Hematocrit 33.4 (L) 36 - 45 % MCV 88.5 80 - 100 FL MCH 29.0 26 - 34 PG MCHC 32.8 32.0 - 36.0 G/DL RDW 17.6 (H) 11 - 15 % Platelet Count 325 150 - 400 K/UL MPV 8.6 7 - 11 FL Neutrophils 25 (L) 41 - 77 % Lymphocytes 65 (H) 24 - 44 % Monocytes 5 4 - 12 % Eosinophils 4 0 - 5 % Basophils 1 0 - 2 % Absolute Neutrophil Count 2.60 1.8 - 7.0 K/UL Absolute Lymph Count 6.90 (H) 1.0 - 4.8 K/UL Absolute Monocyte Count 0.60 0 - 0.80 K/UL Absolute Eosinophil Count 0.40 0 - 0.45 K/UL Absolute Basophil Count 0.10 0 - 0.20 K/UL COMPREHENSIVE METABOLIC PANEL Collection Time: 09/25/18 3:19 AM Result Value Ref Range Sodium 137 137 - 147 MMOL/L Potassium 3.8 3.5 - 5.1 MMOL/L Chloride 103 98 - 110 MMOL/L Glucose 135 (H) 70 - 100 MG/DL Blood Urea Nitrogen 9 7 - 25 MG/DL Creatinine 0.81 0.4 - 1.00 MG/DL Calcium 8.5 8.5 - 10.6 MG/DL Total Protein 5.2 (L) 6.0 - 8.0 G/DL Total Bilirubin 0.2 (L) 0.3 - 1.2 MG/DL Albumin 3.2 (L) 3.5 - 5.0 G/DL Alk Phosphatase 48 25 - 110 U/L AST (SGOT) 13 7 - 40 U/L CO2 30 21 - 30 MMOL/L ALT (SGPT) 11 7 - 56 U/L Anion Gap 4 3 - 12 eGFR Non >60 >60 mL/min eGFR >60 >60 mL/min POC GLUCOSE Collection Time: 09/25/18 8:22 AM Result Value Ref Range Glucose, POC 181 (H) 70 - 100 MG/DL POC GLUCOSE Collection Time: 09/25/18 12:22 PM Result Value Ref Range Glucose, POC 413 (H) 70 - 100 MG/DL POC GLUCOSE Collection Time: 09/25/18 3:57 PM Result Value Ref Range Glucose, POC 302 (H) 70 - 100 MG/DL Point of Care Testing (Last 24 hours) Glucose: (!) 135 (09/25/18318) POC Glucose (Download): (!) 181 (09/25/18 08) Radiology and other Diagnostics Review: Pertinent radiology reviewed. 09/18 CT Chest IMPRESSION 1. Decreased to stable enlarged bilateral axillary and subpectoral lymph nodes. No new or enlarging thoracic lymphadenopathy. Differential considerations are unchanged and would include collagen vascular disease, certain infection such as mononucleosis or lymphoproliferative disorder such as lymphoma or CLL. 2. Unchanged tiny soft tissue nodule along the lateral aspect of the left breast. Diagnostic mammography is recommended for further characterization if not already performed. 3. Unchanged tiny bilateral pulmonary nodules. In a low-risk patient, no follow-up of these nodules is required. In a high-risk patient, optional follow-up CT chest could be obtained in 12 months to evaluate for stability. 09/18 CT neck IMPRESSION 1. Mild submental, bilateral submandibular, left level 2A, and bilateral subpectoral and axillary lymphadenopathy, which is of indeterminate reactive or malignant etiology. 2. Atrophic hypodense thyroid tissue. 09/16 CT A/P IMPRESSION 1. Mild bilateral external iliac lymphadenopathy. There are also mildly prominent inguinal lymph nodes bilaterally. These are nonspecific and may be reactive in nature. 2. No bowel obstruction, inflammatory mass, or abdominopelvic ascites. Mild distal colonic diverticulosis without evidence of diverticulitis. 3. 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 Tiesha Tarango, BOX LINING MACHINE OPERATOR Pager [phone] SAWYER * Gayle Fink, MSN,BOX LINING MACHINE OPERATOR - 09/25/2018 11:39 AM LAST SAWYER Interventional Radiology Follow Up Note Admission Date: 09/17/2018 LOS: 7 days Principal Problem: Abdominal pain Active Problems: Other dysphagia Other constipation Intractable cyclical vomiting with nausea Type 1 diabetes mellitus with complication (HCC) Dysthymia Anxiety Migraine with aura and with status migrainosus, not intractable Epigastric pain Chronic abdominal pain Orthostatic hypotension Acquired hypothyroidism LAD (lymphadenopathy), axillary Assessment: Chelsea Castillo is a 58 y.o. female s/p day 1 left axillary lymph node biopsy for unknown lymphadenopathy Procedure completed: left axillary lymph node biopsy Recommendations: 1. Left axillary lymph node biopsy for unknown lymphadenopathy - site looks c/d/ i. Dressing removed. No tub baths until site completely healed. Biopsy results per primary team. We appreciate being able to participate in Chelsea's care and will sign off at this time. Please page with any questions or concerns. Gayle Fink, MSN,BOX LINING MACHINE OPERATOR Pgr [phone] IR Team Pager [phone] (After-hours and Weekends) Subjective Patient s/p day 1 left axillary lymph node biopsy for unknown lymphadenopathy. Patient denies complaint except for abdominal pain today. Patient reports she may be going home this afternoon. Review of Systems Constitutional: negative Respiratory: negative Cardiovascular: negative Gastrointestinal: negative except for abdominal pain Medications Scheduled Meds: carBAMazepine (TEGRETOL) tablet 400 mg 400 mg Oral QDAY duloxetine DR (CYMBALTA) capsule 60 mg 60 mg Oral BID electrolyte GUT PEG (NULYTELY, COLYTE, GAVILYTE-N) oral solution 4 L 4 L Oral As Prescribed fludrocortisone (FLORINEF) tablet 0.3 mg 0.3 mg Oral QDAY insulin aspart U-100 (NOVOLOG FLEXPEN) injection PEN 0-7 Units 0-7 Units Subcutaneous ACHS insulin aspart U-100 (NOVOLOG FLEXPEN) injection PEN 8 Units 8 Units Subcutaneous TID w/ meals insulin glargine (LANTUS SOLOSTAR, BASAGLAR) injection PEN 13 Units 13 Units Subcutaneous QHS levothyroxine (SYNTHROID) tablet 175 mcg 175 mcg Oral QDAY 30 min before breakfast sucralfate (CARAFATE) oral suspension 1 g/10ml Patient Own Med 1 g Oral ACHS Continuous Infusions: PRN and Respiratory Meds:acetaminophen Q6H PRN, acetaminophen/lidocaine/antacid DS(#) QID PRN, ALPRAZolam BID PRN, electrolyte GUT PEG PRN (Staff Appraiser from Rx), loperamide PRN, ondansetron (ZOFRAN) IV Q6H PRN, zolpidem QHS PRN Objective Vital Signs: Last Filed Vital Signs: 24 Hour Range BP: 139/61 (09/25 930) Temp: 36.7 C (98 F) (09/25 930) Pulse: 92 (09/25 930) Respirations: 16 PER MINUTE (09/25 930) SpO2: 100 % (09/25 930) O2 Delivery: None (Room Air) (09/25 930) BP: (119-146)/(58-82) Temp: [36.4 C (97.5 F)-36.9 C (98.4 F)] Pulse: [87-108] Respirations: [16 PER MINUTE-18 PER MINUTE] SpO2: [99 %-100 %] O2 Delivery: None (Room Air) Intensity Pain Scale (Self Report): 9 (09/25/18 0830) Vitals: 09/18/18 0112 09/18/18 1400 09/18/18 1447 Weight: 63.3 kg (139 lb 8.8 oz) 63.3 kg (139 lb 8.8 oz) 63 kg (139 lb) Intake/Output Summary: (Last 24 hours) Intake/Output Summary (Last 24 hours) at 09/25/18 1140 Last data filed at 09/25/18 0931 Gross per 24 hour Intake 1920 ml Output 1425 ml Net 495 ml Stool Occurrence: 3 Physical Exam General appearance: alert and cooperative Neurologic: Grossly normal Lungs: nonlabored Extremities: left axillary dressing removed and site c/d/i with no evidence of hematoma Lab/Radiology/Other Diagnostic Tests:Labs: Pertinent labs reviewed Radiology: Reviewed. Gayle Fink, MSN,BOX LINING MACHINE OPERATOR Pager [phone] SAWYER * Pauly Morrison MD - 09/25/2018 10:56 AM LAST SAWYER Progress Note - Internal Medicine Brief Clinical Summary 58 y.o.female(PMHx:TBI;DMII;Anxiety;Depression;Hypothyroidism;Migraines; Gastritis) presented on 09/17/2018 w/intractable N/V and abdominal pain, and dysphagia --> found to have lymphadenopathy. Hematology consulted and recommended excisional biopsy but none amenable, so IR-guided biopsy 09/24. GES 09/23. Consultants - GI, General Surgery, Hematology. 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 Noted on flow cytometry collected 09/22/2018. Subacute dysphagia associate with nausea and vomiting (autonomic neuropathy versus GERD) | Progressive. EGD performed 09/20/2018 demonstrated normal esophagus with diffuse gastric erythema and numerous gastric polyps that were removed. Gastroenterology submitting cassettes from stomach biopsy for additional testing in light of B-cell proliferation. Chronic epigastric pain (diabetic gastroparesis versus other) | Ongoing, but improved overall. Has multiple admissions and ED visits for similar abdominal pain. Concern for polypharmacy at home with opioids administered each visit for symptomatic management. CT scan on admission was unremarkable apart from a GI tract. Tense from stomach to rectum even though patient reported no intake for 3 days. Colonoscopy performed 09/20/2018 demonstrated normal terminal ileum and colonic mucosa with a 5 mm polyp removed. Lymphadenopathy (occult malignancy) | CT scan at the time of presentation demonstrated external iliac lymphadenopathy 1.6 cm short axis lymph node noted. Was also found to have lymphadenopathy in the axillary area and had originally had plans to be seen by Oncology as an outpatient. Was originally recommended to have an excisional biopsy of the external iliac node, however, they recommended IR biopsy, and L axillary LN FNA obtained 09/24/18. Hypoglycemia | Resolved afterhospital event with associated loss of consciousness. Iron deficiency | Noted on iron studies collected 07/19/2018. History of TBI | By report, some cognitive difficulty but no clear documentation of cognitive testing. Becomes easily perturbed with complex discussions. Type I diabetes mellitus | Uncontrolled, but improving control. Most recent hemoglobin A1c 9.8% on 09/18/2018 which is down from 07/19/2018 when it was 11.4% . Endocrinology consulted 09/19/2018. Diabetes comp located by peripheral neuropathy proliferative diabetic retinopathy. 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 At the time of admission TSH 6.1 and free T4 1.0. Orthostasis (autonomic neuropathy) | Intermittent, but reasonably controlled on fludrocortisone 0.3 mg daily. Depression (situational versus organic) | Controlled. Seen by Psychiatry, who recommended continuation of duloxetine 60 mg twice daily, and a lower dose of alprazolam to 0.5 mg twice daily as well as lowered dose of zolpidem. Psychology consulted. At risk for DVT (hospitalization/immobilization) | Pharmacologic prophylaxis on hold due to anticipated procedure Plan Await Hematology based on flow cytometry findings We will check orthostatics prior to discharge Start immodium for diarrhea Subjective Continue diarrhea. Denies fever, chills, nausea, vomiting. Review of Systems CONS: No subjective fever, no chills. CVS: No palpitations. No chest pain. RESP: No dyspnea. No cough. GI: Mild epigastric abdominal pain. Diarrhea or constipation. No nausea, no vomiting. Objective Vital Signs Temp: [36.4 C (97.5 F)-36.9 C (98.4 F)] Pulse: [87-108] Respirations: [16 PER MINUTE-18 PER MINUTE] SpO2: [99 %-100 %] BP: (119-146)/(58-82) I/Os from Yesterday's Shift 09/24 07 - 09/25 0700 In: 1200 [P.O.:1200] Out: 1375 [Urine:1375] Physical Examination GEN: Alert and oriented x3 (person/place/time), NAD. CVS: S1/S2 audible, no murmurs audible. Appears and feels warm and well- perfused. RESP: Lungs clear to ascultation. No wheezes, rhonchi, nor crackles. GI: Abdomen soft. Mild epigastric tenderness. SKIN: Warm. Dry. Lab Studies Recent labs reviewed. Notable for: Hemoglobin 11 Platelet count 325 White blood cell count 10.5 Sodium 137 Potassium 3.8 Chloride 103 Bicarb 30 Anion gap 4 BUN 9 Creatinine 0.8 Glucose 135 Albumin 3.2 Total bilirubin 0.2 Total protein 5.2 LFTs within normal Imaging Studies Recent imaging reviewed. Notable for: Colonoscopy performed 09/20/2018 with normal terminal ileal and colonic mucosa with a 5 mm transverse polyp removed with a cold snare. EGD performed 09/20/2018 with normal esophagus and the GE junction at 36 with random biopsies obtained. Diffuse erythema with small gastric polyps in the stomach and normal duodenum. Microbiological Studies Recent microbiology reviewed. Notable for: Blood culture obtained 07/19/2018 with no growth at 5 days (final) Pathology Recent pathology reviewed and notable for: Surgical pathology obtained 09/20/2018 from small bowel mucosa biopsy with normal villous architecture with no diagnostic abnormalities. Gastric mucosa with increased lamina propria eosinophils and squamous cell mucosa with distal esophageal biopsy with no diagnostic abnormalities and squamous mucosa of the proximal esophagus with no diagnostic abnormalities. Colonic mucosa and transverse colon polyp 6 mm biopsy demonstrating tubular adenoma. Flow cytometry obtained 09/22/2018 with evidence of B-cell proliferation Discharge Planning/Barriers to Discharge Anticipate discharge to previous setting once symptoms improved As outpatient already established with Hematology Future Appointments Date Time Provider Department Center 09/26/2018 9:20 AM Yanet Cormier MD [facility] Neuro 10/02/2018 10:20 AM Milena Bhatti MD [facility] Exam 10/08/2018 10:20 AM Taylor Avelar MD [facility] IM 11/22/2018 3:00 PM Gunnar Kirk MD [facility]STR[facility] IM Daily Rounding Checklist Line necessity Sotelo necessity Telemetry necessity PT/OT necessity DME needs evaluated and supplied Diet at highest level IV --> PO medications Teaching needs Pharmacy needs Wound care needs Planned D/C location (Home/LTAC/SNF/Rehab/Other) Pauly Morrison M.D. Department of Internal Medicine 09/25/2018 10:56 AM SAWYER * Alexandra QuincyDO - 09/25/2018 7:02 AM LAST SAWYER Endocrinology Progress Note Name: Chelsea Castillo Today's Date: 09/25/2018 Admission Date: 09/17/2018 LOS: 7 days Principal Problem: Abdominal pain Active Problems: Other dysphagia Other constipation Intractable cyclical vomiting with nausea Type 1 diabetes mellitus with complication (HCC) Dysthymia Anxiety Migraine with aura and with status migrainosus, not intractable Epigastric pain Chronic abdominal pain Orthostatic hypotension Acquired hypothyroidism LAD (lymphadenopathy), axillary Reason for Consult: "58 yo female hx of brittle dm, pt with syncopal episoded and hypoglycemia overnight, please assist with dm management" Assessment/Plan: Chelsea Julien Castillo is a 58 y.o. female with arthritis, osteoporosis, hypothyroidism and DM type 1 who presented on 09/18/2018 with intractable nausea /vomiting in the setting of chronic abdomina pain. Endocrinology consulted for DM management. 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 Patton PCP for diabetes management Diabetic-complications assessment: Retinopathy: yes. . Peripheral neuropathy: yes Autonomic neuropathy: no Nephropathy: No Macrovascular complications: no known CAD Risk Factor assessment Last lipid profile Lab Results Component Value Date CHOL 176 09/18/2018 TRIG 161 (H) 09/18/2018 HDL 53 09/18/2018 LDL 96 09/18/2018 VLDL 32 09/18/2018 NONHDLCHOL 123 09/18/2018 BP Readings from Last 1 Encounters: 09/25/18 138/77 On ACEi/ARB?: no On Statin?: no Acute on Chronic abdominal pain Lymphadenopathy Being worked up by hematology Hypothyroidism 09/18/2018 TSH 6.14 On levothyroxine 175 mcg daily Impression / Recommendations Missed breakfast and lunch dose, leading to significant hyperglycemia. Cont Lantus 13 units nightly con novolog 8 units with meals (home dose) Continue low-dose correction factor Once patient starts eating again will require mealtime insulin Pt was discussed with Dr. Rosio Parsons Jonathan is a 58 y.o. female. No acute events overnight. Physical Exam General: Alert, cooperative, no distress Lungs: Non-labored Abdomen: Non-distended Skin: No rashes Extremities: No cyanosis Medications Scheduled Meds: carBAMazepine (TEGRETOL) tablet 400 mg 400 mg Oral QDAY duloxetine DR (CYMBALTA) capsule 60 mg 60 mg Oral BID electrolyte GUT PEG (NULYTELY, COLYTE, GAVILYTE-N) oral solution 4 L 4 L Oral As Prescribed fludrocortisone (FLORINEF) tablet 0.3 mg 0.3 mg Oral QDAY insulin aspart U-100 (NOVOLOG FLEXPEN) injection PEN 0-7 Units 0-7 Units Subcutaneous ACHS insulin aspart U-100 (NOVOLOG FLEXPEN) injection PEN 8 Units 8 Units Subcutaneous TID w/ meals insulin glargine (LANTUS SOLOSTAR, BASAGLAR) injection PEN 13 Units 13 Units Subcutaneous QHS levothyroxine (SYNTHROID) tablet 175 mcg 175 mcg Oral QDAY 30 min before breakfast sucralfate (CARAFATE) oral suspension 1 g/10ml Patient Own Med 1 g Oral ACHS Continuous Infusions: PRN and Respiratory Meds:acetaminophen Q6H PRN, acetaminophen/lidocaine/antacid DS(#) QID PRN, ALPRAZolam BID PRN, electrolyte GUT PEG PRN (Staff Appraiser from Rx), loperamide PRN, ondansetron (ZOFRAN) IV Q6H PRN, zolpidem QHS PRN Objective Vital Signs: Last Filed Vital Signs: 24 Hour Range BP: 138/77 (09/25 515) Temp: 36.9 C (98.4 F) (09/25 515) Pulse: 91 (09/25 515) Respirations: 18 PER MINUTE (09/25 515) SpO2: 100 % (09/25 515) O2 Delivery: None (Room Air) (09/25 515) SpO2 Pulse: 85 (09/24 900) BP: (119-146)/(58-82) Temp: [36.4 C (97.5 F)-37 C (98.6 F)] Pulse: [82-108] Respirations: [14 PER MINUTE-26 PER MINUTE] SpO2: [95 %-100 %] O2 Delivery: None (Room Air) Intensity Pain Scale (Self Report): 8 (09/24/18 09) Vitals: 09/18/18 0112 09/18/18 1400 09/18/18 1447 Weight: 63.3 kg (139 lb 8.8 oz) 63.3 kg (139 lb 8.8 oz) 63 kg (139 lb) Intake/Output Summary: (Last 24 hours) Intake/Output Summary (Last 24 hours) at 09/25/18 07 Last data filed at 09/25/18 0515 Gross per 24 hour Intake 1200 ml Output 1375 ml Net -175 ml Stool Occurrence: 1 Lab Review 24-hour labs: Results for orders placed or performed during the hospital encounter of (from the past 24 hour(s)) POC GLUCOSE Collection Time: 09/24/18 8:03 AM Result Value Ref Range Glucose, POC 198 (H) 70 - 100 MG/DL POC GLUCOSE Collection Time: 09/24/18 9:36 AM Result Value Ref Range Glucose, POC 187 (H) 70 - 100 MG/DL POC GLUCOSE Collection Time: 09/24/18 12:30 PM Result Value Ref Range Glucose, POC 334 (H) 70 - 100 MG/DL ELECTROPHORESIS-SERUM PROTEIN Collection Time: 09/24/18 3:20 PM Result Value Ref Range Total Protein-SEP 5.0 (L) 6.0 - 8.0 G/DL Albumin % 48 - 68 % Alpha 1 % 2 - 6 % Alpha 2 % 5 - 15 % Beta %,Serum 9 - 17 % Gamma % 9 - 21 % Paraprotein G/DL Interpretation - SEP Pathologist Signature POC GLUCOSE Collection Time: 09/24/18 6:05 PM Result Value Ref Range Glucose, POC 209 (H) 70 - 100 MG/DL POC GLUCOSE Collection Time: 09/24/18 8:36 PM Result Value Ref Range Glucose, POC 109 (H) 70 - 100 MG/DL OVA AND PARASITES, FECAL Collection Time: 09/25/18 12:02 AM Result Value Ref Range Battery Name OVA AND PARASITES Specimen Description FECES Special Requests NONE Ova & Parasites SEE RESULTS OF GIARDIA AND CRYPTOSPORIDIUM ANTIGENS BY EIA. THE ANTIGEN DETECTION ASSAY IS MORE SENSITIVE FOR THESE PARASITES. PLEASE CONTACT THE MICROBIOLOGY LAB AT [phone] TO REQUEST FURTHER PARASITE TESTING. Report Status FINAL 09/25/2018 CRYPTOSPORIDUM,FECAL Collection Time: 09/25/18 12:02 AM Result Value Ref Range Battery Name CRYPTOSPORIDIUM Specimen Description FECES Special Requests NONE Cryptosporidium NEGATIVE FOR CRYPTOSPORIDIUM Report Status FINAL 09/25/2018 GIARDIA SCREEN,FECAL Collection Time: 09/25/18 12:02 AM Result Value Ref Range Battery Name GIARDIA SCREEN Specimen Description FECES Special Requests NONE Giardia EIA NEGATIVE FOR GIARDIA (LAMBLIA) INTESTINALIS Report Status FINAL 09/25/2018 CBC AND DIFF Collection Time: 09/25/18 3:19 AM Result Value Ref Range White Blood Cells 10.5 4.5 - 11.0 K/UL RBC 3.78 (L) 4.0 - 5.0 M/UL Hemoglobin 11.0 (L) 12.0 - 15.0 GM/DL Hematocrit 33.4 (L) 36 - 45 % MCV 88.5 80 - 100 FL MCH 29.0 26 - 34 PG MCHC 32.8 32.0 - 36.0 G/DL RDW 17.6 (H) 11 - 15 % Platelet Count 325 150 - 400 K/UL MPV 8.6 7 - 11 FL Neutrophils 25 (L) 41 - 77 % Lymphocytes 65 (H) 24 - 44 % Monocytes 5 4 - 12 % Eosinophils 4 0 - 5 % Basophils 1 0 - 2 % Absolute Neutrophil Count 2.60 1.8 - 7.0 K/UL Absolute Lymph Count 6.90 (H) 1.0 - 4.8 K/UL Absolute Monocyte Count 0.60 0 - 0.80 K/UL Absolute Eosinophil Count 0.40 0 - 0.45 K/UL Absolute Basophil Count 0.10 0 - 0.20 K/UL COMPREHENSIVE METABOLIC PANEL Collection Time: 09/25/18 3:19 AM Result Value Ref Range Sodium 137 137 - 147 MMOL/L Potassium 3.8 3.5 - 5.1 MMOL/L Chloride 103 98 - 110 MMOL/L Glucose 135 (H) 70 - 100 MG/DL Blood Urea Nitrogen 9 7 - 25 MG/DL Creatinine 0.81 0.4 - 1.00 MG/DL Calcium 8.5 8.5 - 10.6 MG/DL Total Protein 5.2 (L) 6.0 - 8.0 G/DL Total Bilirubin 0.2 (L) 0.3 - 1.2 MG/DL Albumin 3.2 (L) 3.5 - 5.0 G/DL Alk Phosphatase 48 25 - 110 U/L AST (SGOT) 13 7 - 40 U/L CO2 30 21 - 30 MMOL/L ALT (SGPT) 11 7 - 56 U/L Anion Gap 4 3 - 12 eGFR Non >60 >60 mL/min eGFR >60 >60 mL/min Point of Care Testing (Last 24 hours) Glucose: (!) 135 (09/25/18318) POC Glucose (Download): (!) 109 (09/24/182035) Radiology and other Diagnostics Review: Pertinent radiology reviewed. SAWYER Associated attestation - Taylor Avelar MD - 09/25/2018 3:10 PM LAST SAWYER ATTESTATION I personally performed the ortega portions of the E/M visit, discussed case with resident and concur with resident documentation of history, physical exam, assessment, and treatment plan unless otherwise noted. Staff name: Taylor Avelar MD Date: 09/25/2018 * Chiki Abbott - 09/24/2018 10:01 PM LAST SAWYER We will attempt to also send the biopsies of the stomach for flow cytometry to help evaluate GI involvement with possible lymphoma. I will contact pathology in the AM. The patient was discussed with Dr. Larry. Chiki Abbott MD Gastroenterology & Hepatology Fellow Pager [phone] SAWYER * Pauly Morrison MD - 09/24/2018 2:43 PM LAST SAWYER Progress Note - Internal Medicine Brief Clinical Summary 58 y.o.female(PMHx:TBI;DMII;Anxiety;Depression;Hypothyroidism;Migraines; Gastritis) presented on 09/17/2018 w/intractable N/V and abdominal pain, and dysphagia --> found to have lymphadenopathy. Hematology consulted and recommended excisional biopsy but none amenable, so IR-guided biopsy 09/24. GES 09/23. Consultants - GI, General Surgery, Hematology. 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 Noted on flow cytometry collected 09/22/2018. Subacute dysphagia associate with nausea and vomiting (autonomic neuropathy versus GERD) | Progressive. EGD performed 09/20/2018 demonstrated normal esophagus with diffuse gastric erythema and numerous gastric polyps that were removed. Chronic epigastric pain (diabetic gastroparesis versus other) | Ongoing. Has multiple admissions and ED visits for similar abdominal pain. Concern for polypharmacy at home with opioids administered each visit for symptomatic management. CT scan on admission was unremarkable apart from a GI tract. Tense from stomach to rectum even though patient reported no intake for 3 days. Colonoscopy performed 09/20/2018 demonstrated normal terminal ileum and colonic mucosa with a 5 mm polyp removed. Lymphadenopathy (occult malignancy) | CT scan at the time of presentation demonstrated external iliac lymphadenopathy 1.6 cm short axis lymph node noted. Was also found to have lymphadenopathy in the axillary area and had originally had plans to be seen by Oncology as an outpatient. Was originally recommended to have an excisional biopsy of the external iliac node, however, they recommended IR biopsy. Hypoglycemia | Resolved afterhospital event with associated loss of consciousness. Iron deficiency | Noted on iron studies collected 07/19/2018. History of TBI | By report, some cognitive difficulty but no clear documentation of cognitive testing. Becomes easily perturbed with complex discussions. Type I diabetes mellitus | Uncontrolled, but improving control. Most recent hemoglobin A1c 9.8% on 09/18/2018 which is down from 07/19/2018 when it was 11.4% . Endocrinology consulted 09/19/2018. Diabetes comp located by peripheral neuropathy proliferative diabetic retinopathy. 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 At the time of admission TSH 6.1 and free T4 1.0. Orthostasis (autonomic neuropathy) | Intermittent, but reasonably controlled on fludrocortisone 0.3 mg daily. Depression (situational versus organic) | Controlled. Seen by Psychiatry, who recommended continuation of duloxetine 60 mg twice daily, and a lower dose of alprazolam to 0.5 mg twice daily as well as lowered dose of zolpidem. Psychology consulted. At risk for DVT (hospitalization/immobilization) | Pharmacologic prophylaxis on hold due to anticipated procedure Plan Reengage Hematology based on flow cytometry findings IRguided biopsy 09/24/2018 of left axillary lymph node We will check orthostatics prior to discharge Await pyridoxal 5-phosphate Stool ova and parasites Stool cultures Celiac screen Subjective Mild epigastric discomfort. Denies fever, chills, nausea, vomiting. Tolerated the axillary lymph node biopsy well this morning without any problems with hemostasis. No chest pain or shortness of breath. Ambulatory. Review of Systems CONS: No subjective fever, no chills. CVS: No palpitations. No chest pain. RESP: No dyspnea. No cough. GI: Mild epigastric abdominal pain. No diarrhea or constipation. No nausea, no vomiting. Objective Vital Signs Temp: [36.7 C (98 F)-37 C (98.6 F)] Pulse: [82-101] Respirations: [14 PER MINUTE-26 PER MINUTE] SpO2 Pulse: [82-89] SpO2: [95 %-100 %] BP: (122-153)/(69-85) I/Os from Yesterday's Shift 09/23 0701 - 09/24 0700 In: 700 [P.O.:700] Out: 820 [Urine:820] Physical Examination GEN: Alert and oriented x3 (person/place/time), NAD. CVS: S1/S2 audible, no murmurs audible. Appears and feels warm and well- perfused. RESP: Lungs clear to ascultation. No wheezes, rhonchi, nor crackles. GI: Abdomen soft. Mild epigastric tenderness. SKIN: Warm. Dry. Lab Studies Recent labs reviewed. Notable for: Hemoglobin 11.7 Platelet count 287 White blood cell count 10.4 Sodium 137 Potassium 3.5 Chloride 103 Bicarb 29 Anion gap 5 BUN BUN 71 creatinine 0.72 AST 8 LT 8 Alk phos 46 Morning glucose 198 Imaging Studies Recent imaging reviewed. Notable for: Colonoscopy performed 09/20/2018 with normal terminal ileal and colonic mucosa with a 5 mm transverse polyp removed with a cold snare. EGD performed 09/20/2018 with normal esophagus and the GE junction at 36 with random biopsies obtained. Diffuse erythema with small gastric polyps in the stomach and normal duodenum. Microbiological Studies Recent microbiology reviewed. Notable for: Blood culture obtained 07/19/2018 with no growth at 5 days (final) Pathology Recent pathology reviewed and notable for: Surgical pathology obtained 09/20/2018 from small bowel mucosa biopsy with normal villous architecture with no diagnostic abnormalities. Gastric mucosa with increased lamina propria eosinophils and squamous cell mucosa with distal esophageal biopsy with no diagnostic abnormalities and squamous mucosa of the proximal esophagus with no diagnostic abnormalities. Colonic mucosa and transverse colon polyp 6 mm biopsy demonstrating tubular adenoma. Flow cytometry obtained 09/22/2018 with evidence of B-cell proliferation Discharge Planning/Barriers to Discharge Anticipate discharge to previous setting once symptoms improved As outpatient already established with Hematology Future Appointments Date Time Provider Department Center 09/26/2018 9:20 AM Yanet Cormier MD [facility] Neuro 10/02/2018 10:20 AM Milena Bhatti MD [facility] Exam 10/08/2018 10:20 AM Taylor Avelar MD [facility] IM 11/22/2018 3:00 PM Gunnar Kirk MD [facility] Daily Rounding Checklist Line necessity S[place]elo necessity Telemetry necessity PT/OT necessity DME needs evaluated and supplied Diet at highest level IV --> PO medications Teaching needs Pharmacy needs Wound care needs Planned D/C location (Home/LTAC/SNF/Rehab/Other) Pauly Morrison M.D. Department of Internal Medicine 09/24/2018 2:43 PM SAWYER * Jennifer Santizo, OT - 09/24/2018 2:18 PM LAST SAWYER OCCUPATIONAL THERAPY Patient reports no concerns with completing activities of daily living with no OT goals identified. Patient reports that she has been ambulating around room with walker without assistance. Patient reports that she showered standing up on this date and got dressed without difficulty OT will discontinue service, please re-consult if the patient has a decline in functional status. Jennifer Santizo, OTR/L [id number] SAWYER * Tameka Hagen, PT - 09/24/2018 2:03 PM LAST SAWYER PHYSICAL THERAPY PROGRESS NOTE & DISCHARGE NOTE MOBILITY: Mobility Progressive Mobility Level: Walk in room Distance Walked (feet): 50 ft Level of Assistance: Independent Assistive Device: Walker Time Tolerated: 0-10 minutes Activity Limited By: No limitations SUBJECTIVE: Subjective Significant hospital events: 58 y.o. female with PMHX of diabetes, anxiety, depression, hypothyroidism, migraine headaches, gastritis, cholecystectomy, thyroidectomy presenting with intractable abdominal pain and nausea/vomiting Mental / Cognitive Status: Alert;Cooperative;Follows Commands Persons Present: Spouse;Sister Pain: Patient has no complaint of pain Pain Interventions: Patient agrees to participate in therapy;Patient assisted into position of comfort Comments: Patient denies any concerns related to her mobility at this time. Ambulation Assist: Independent Mobility in Community with Device Patient Owned Equipment: Single Point Cane;Roller Walker Home Situation: Lives with Family Type of Home: House Entry Stairs: 3-5 Stairs;Rail on 1 Side (4 steps to enter front door) In-Home Stairs: 1-2 Flights of Stairs (basement with garage entry) Comments: Previously independent with ADLs/mobility. Per , patient would intermittenly need assist at home when she was feeling very sick or was having a bad day. BED MOBILITY/TRANSFERS: Bed Mobility/Transfers Comments: Bed mobility not observed as patient seated in bedside chair at beginning/end of session. Transfer Type: Sit to/from Stand Transfer: Assistance Level: To/From;Bed Side Chair;Toilet;Independent Transfer: Assistive Device: None End Of Activity Status: Up in Chair;Nursing Notified (patient up ad robina per nursing) BALANCE: Balance Sitting Balance: Static Sitting Balance;Dynamic Sitting Balance;Independent Standing Balance: Static Standing Balance;Dynamic Standing Balance;Independent GAIT: Gait Gait Distance: 50 feet Gait: Assistance Level: Modified Independent Gait: Assistive Device: Roller Walker Gait: Descriptors: Pace: Slow;Swing-Through Gait;No balance loss;Normal step length Activity Limited By: Patient Choice Comments: Patient declined to participate in stair mobility, stating she doesn' t have any concerns and that she doesn't need to do them, if she doesn't want to. EDUCATION: Education Persons Educated: Patient Patient Barriers To Learning: None Noted Teaching Methods: Verbal Instruction Patient Response: Verbalized Understanding Topics: Plan/Goals of PT Interventions;Mobility Progression;Safety Awareness; Importance of Increasing Activity;Continue Ambulation on Own;Ambulate With Nursing;Ambulate with Family ASSESSMENT/PROGRESS: Assessment/Progress Impaired Mobility Due To: Pain;Decreased Activity Tolerance Assessment/Progress: Patient level of independence and safety is consistent with prior level of function and does not require physical therapy intervention Comments: Patient with improved mobility this date, and no longer requires skilled physical therapy intervention. Please re-consult physical therapy if patient has a change in function/mobility status. AM-PAC 6 Clicks Basic Mobility Inpatient Turning [...] 23 Standardized (T-scale) Score: 50.88 Basic Mobility [facility] 0-100%: 16.55 CMS G Code Modifier for Basic Mobility: CI G-Codes: Mobility G8978 Current Status: 1-19% Impairment G8980 Discharge Status: 1-19% Impairment Based on above evaluation and clinical judgment. GOALS: Goals Goal Formulation: With Patient Time For Goal Achievement: 3 days, To, 5 days Pt Will Go Supine To/From Sit: Independently, Met Pt Will Transfer Sit to Stand: Independently, Met Pt Will Ambulate: Greater than 200 Feet, Independently, Met Pt Will Go Up / Down Stairs: 3-5 Stairs, Independently, Met PLAN: Plan Plan Frequency: No Further Treatment RECOMMENDATIONS: PT Discharge Recommendations PT Discharge Recommendations: Home with Assistance Equipment Recommendations: Patient owns necessary equipment Recommend ongoing assistance for: In and out of house;Stairs;Safety concerns Therapist: Tameka Felipe [place] [id number] Date: 09/24/2018 SAWYER * Jennifer Santizo, OT - 09/24/2018 11:34 AM LAST SAWYER OCCUPATIONAL THERAPY Occupational therapy attempted to see patient for initial evaluation. Patient unavailable for therapy due to showering. OT will continue to follow and provide intervention as indicated. Jennifer Santizo OTR/L [id number] SAWYER * Tameka Hagen PT - 09/24/2018 8:36 AM LAST SAWYER PHYSICAL THERAPY NO TREATMENT NOTE Patient is currently unavailable for physical therapy intervention as she is off the unit for a procedure (biopsy). Physical therapy will continue to follow patient and provide intervention as indicated. Therapist: Tameka Felipe [place], [place] [id number] Date: 09/24/2018 SAWYER * Jacki Hernandez RN - 09/24/2018 8:18 AM LAST SAWYER Sedation physician present in room. Recent vitals and patient condition reviewed between sedating physician and nurse. Reassessment completed. Determination made to proceed with planned sedation. SAWYER * Quincy Morris DO - 09/24/2018 8:11 AM LAST SAWYER Endocrinology Progress Note Name: Chelsea Castillo Today's Date: 09/24/2018 Admission Date: 09/17/2018 LOS: 6 days Principal Problem: Abdominal pain Active Problems: Other dysphagia Other constipation Intractable cyclical vomiting with nausea Type 1 diabetes mellitus with complication (HCC) Dysthymia Anxiety Migraine with aura and with status migrainosus, not intractable Epigastric pain Chronic abdominal pain Orthostatic hypotension Acquired hypothyroidism LAD (lymphadenopathy), axillary Reason for Consult: "58 yo female hx of brittle dm, pt with syncopal episoded and hypoglycemia overnight, please assist with dm management" Assessment/Plan: Chelsea Castillo is a 58 y.o. female with arthritis, osteoporosis, hypothyroidism and DM type 1 who presented on 09/18/2018 with intractable nausea /vomiting in the setting of chronic abdomina pain. Endocrinology consulted for DM management. 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 Patton PCP for diabetes management Diabetic-complications assessment: Retinopathy: yes. . Peripheral neuropathy: yes Autonomic neuropathy: no Nephropathy: No Macrovascular complications: no known CAD Risk Factor assessment Last lipid profile Lab Results Component Value Date CHOL 176 09/18/2018 TRIG 161 (H) 09/18/2018 HDL 53 09/18/2018 LDL 96 09/18/2018 VLDL 32 09/18/2018 NONHDLCHOL 123 09/18/2018 BP Readings from Last 1 Encounters: 09/24/18 127/82 On ACEi/ARB?: no On Statin?: no Acute on Chronic abdominal pain Lymphadenopathy Being worked up by hematology Hypothyroidism 09/18/2018 TSH 6.14 On levothyroxine 175 mcg daily Impression / Recommendations Missed breakfast and lunch dose, leading to significant hyperglycemia. Cont Lantus 13 units nightly Increase novolog 8 units with meals (home dose) Continue low-dose correction factor Once patient starts eating again will require mealtime insulin Pt was discussed with Dr. Rosio Perdomo Chelsea Castillo is a 58 y.o. female. No acute events overnight. Physical Exam General: Alert, cooperative, no distress Lungs: Non-labored Abdomen: Non-distended Skin: No rashes Extremities: No cyanosis Medications Scheduled Meds: carBAMazepine (TEGRETOL) tablet 400 mg 400 mg Oral QDAY [MAR Hold] duloxetine DR (CYMBALTA) capsule 60 mg 60 mg Oral BID [JAN Hold] electrolyte GUT PEG (NULYTELY, COLYTE, GAVILYTE-N) oral solution 4 L 4 L Oral As Prescribed [JAN Hold] fludrocortisone (FLORINEF) tablet 0.3 mg 0.3 mg Oral QDAY [Jan] insulin aspart U-100 (NOVOLOG FLEXPEN) injection PEN 0-7 Units 0-7 Units Subcutaneous ACHS [JAN Hold] insulin aspart U-100 (NOVOLOG FLEXPEN) injection PEN 5 Units 5 Units Subcutaneous TID w/ meals [JAN Hold] insulin glargine (LANTUS SOLOSTAR, BASAGLAR) injection PEN 13 Units 13 Units Subcutaneous QHS [Jan] levothyroxine (SYNTHROID) tablet 175 mcg 175 mcg Oral QDAY 30 min before breakfast [JAN Hold] sucralfate (CARAFATE) oral suspension 1 g/10ml Patient Own Med 1 g Oral ACHS Continuous Infusions: PRN and Respiratory Meds:[Jan] acetaminophen Q6H PRN, [JAN Hold] acetaminophen/lidocaine/antacid DS(#) QID PRN, [JAN Hold] ALPRAZolam BID PRN, [ Jan] electrolyte GUT PEG PRN (Staff Appraiser from Rx), [JAN Hold] ondansetron ( ZOFRAN) IV Q6H PRN, [JAN Hold] zolpidem QHS PRN Objective Vital Signs: Last Filed Vital Signs: 24 Hour Range BP: 127/82 (09/24 730) Temp: 37 C (98.6 F) (09/24 730) Pulse: 91 (09/24 730) Respirations: 18 PER MINUTE (09/24 730) SpO2: 99 % (09/24 730) O2 Delivery: None (Room Air) (09/24 730) BP: (127-153)/(71-85) Temp: [36.7 C (98 F)-37 C (98.6 F)] Pulse: [83-104] Respirations: [16 PER MINUTE-18 PER MINUTE] SpO2: [99 %-100 %] O2 Delivery: None (Room Air) Intensity Pain Scale (Self Report): 9 (09/24/18 0737) Vitals: 09/18/18 0112 09/18/18 1400 09/18/18 1447 Weight: 63.3 kg (139 lb 8.8 oz) 63.3 kg (139 lb 8.8 oz) 63 kg (139 lb) Intake/Output Summary: (Last 24 hours) Intake/Output Summary (Last 24 hours) at 09/24/18 0811 Last data filed at 09/24/18 0621 Gross per 24 hour Intake 700 ml Output 820 ml Net -120 ml Stool Occurrence: 1 (per pt report) Lab Review 24-hour labs: Results for orders placed or performed during the hospital encounter of (from the past 24 hour(s)) POC GLUCOSE Collection Time: 09/23/18 2:08 PM Result Value Ref Range Glucose, POC 308 (H) 70 - 100 MG/DL POC GLUCOSE Collection Time: 09/23/18 4:13 PM Result Value Ref Range Glucose, POC 237 (H) 70 - 100 MG/DL POC GLUCOSE Collection Time: 09/23/18 8:07 PM Result Value Ref Range Glucose, POC 295 (H) 70 - 100 MG/DL POC GLUCOSE Collection Time: 09/24/18 2:23 AM Result Value Ref Range Glucose, POC 144 (H) 70 - 100 MG/DL CBC AND DIFF Collection Time: 09/24/18 2:24 AM Result Value Ref Range White Blood Cells 10.4 4.5 - 11.0 K/UL RBC 4.01 4.0 - 5.0 M/UL Hemoglobin 11.7 (L) 12.0 - 15.0 GM/DL Hematocrit 35.7 (L) 36 - 45 % MCV 89.0 80 - 100 FL MCH 29.2 26 - 34 PG MCHC 32.8 32.0 - 36.0 G/DL RDW 17.4 (H) 11 - 15 % Platelet Count 287 150 - 400 K/UL MPV 8.8 7 - 11 FL Neutrophils 31 (L) 41 - 77 % Lymphocytes 59 (H) 24 - 44 % Monocytes 5 4 - 12 % Eosinophils 4 0 - 5 % Basophils 1 0 - 2 % Absolute Neutrophil Count 3.20 1.8 - 7.0 K/UL Absolute Lymph Count 6.20 (H) 1.0 - 4.8 K/UL Absolute Monocyte Count 0.50 0 - 0.80 K/UL Absolute Eosinophil Count 0.40 0 - 0.45 K/UL Absolute Basophil Count 0.10 0 - 0.20 K/UL COMPREHENSIVE METABOLIC PANEL Collection Time: 09/24/18 2:24 AM Result Value Ref Range Sodium 137 137 - 147 MMOL/L Potassium 3.5 3.5 - 5.1 MMOL/L Chloride 103 98 - 110 MMOL/L Glucose 154 (H) 70 - 100 MG/DL Blood Urea Nitrogen 7 7 - 25 MG/DL Creatinine 0.72 0.4 - 1.00 MG/DL Calcium 8.5 8.5 - 10.6 MG/DL Total Protein 5.4 (L) 6.0 - 8.0 G/DL Total Bilirubin 0.3 0.3 - 1.2 MG/DL Albumin 3.3 (L) 3.5 - 5.0 G/DL Alk Phosphatase 46 25 - 110 U/L AST (SGOT) 8 7 - 40 U/L CO2 29 21 - 30 MMOL/L ALT (SGPT) 8 7 - 56 U/L Anion Gap 5 3 - 12 eGFR Non >60 >60 mL/min eGFR >60 >60 mL/min POC GLUCOSE Collection Time: 09/24/18 8:03 AM Result Value Ref Range Glucose, POC 198 (H) 70 - 100 MG/DL Point of Care Testing (Last 24 hours) Glucose: (!) 154 (09/24/18 0224) POC Glucose (Download): (!) 198 (09/24/18 0803) Radiology and other Diagnostics Review: Pertinent radiology reviewed. Anmol Morrison MD Endocrinology Fellow PGY [phone] SAWYER Associated attestation - Taylor Avelar MD - 09/24/2018 3:48 PM LAST SAWYER ATTESTATION I personally performed the ortega portions of the E/M visit, discussed case with resident and concur with resident documentation of history, physical exam, assessment, and treatment plan unless otherwise noted. Uncomfortable during my exam today, recently had biopsy in IR.We have increased novolog with meals. Staff name: Taylor Avelar MD Date: 09/24/2018 * Charles Freeman MD - 09/24/2018 7:44 AM LAST SAWYER Inpatient GI pathology results: Final Diagnosis: A. Small bowel mucosa, celiac bx r/o celiac dx, biopsy: Normal villous architecture with no diagnostic abnormalities. B. Gastric mucosa, stomach biopsy r/o H. pylori, biopsy: Increased lamina propria eosinophils. See comment. Immunohistochemical stain for H. pylori is negative for H. pylori organisms. C. Squamous mucosa, distal esophageal biopsy r/o eoe, biopsy: No diagnostic abnormalities. D. Squamous mucosa, proximal esophageal biopsy r/o eoe, biopsy: No diagnostic abnormalities. E. Colonic mucosa, transverse colon polyp 6mm, biopsy: Tubular adenoma. Comment: B. The finding of increased eosinophils within the gastric lamina propria is a nonspecific finding and the significance requires correlation with other stigmata of allergic disease if necessary. SAWYER * Negin Larry MD - 09/23/2018 8:26 PM LAST SAWYER Gastroenterology Progress Note Patient Name:Chelsea Castillo Admission Date: 09/17/2018 7:53 PM 58 yo WF with long standing IDDM, with peripheral neuropathy, has 1 year history of worsening N/V, constipaton and abd pain. She is found to have severe GP (off of narcotics) and had been started on reglan 5 mg daily with subsequent increasing the dose to 10 mg. She has stopped taking narcotics. EGD and colonoscopy were unremarkable (small TA polyp) but random gastric biopsies shows eosinophils infiltration. Swallow evaluation for dysphagia showed penetration with thin and nectar thick. CT of the head was unremarkable. CT of neck/chest/abd and pelvic showed submental, bilateral submandibular, left level 2A, and bilateral subpectoral, axillary and inguinale lymphadenopathy. CBC showed mild leukocytosis with monocytosis and Eosinophilia. Normal ESR and CRP and autoimmune workup. Negative HIV, hep B or C serology. The above findings are worrisome for malignancy and paraneoplastic syndrome vs. GI involvement with lymphoma vs. Connective tissue disorders vs. GI parasites. Await result of axillary LN excisional biopsy. Please check SPEP and UPEP. Stool studies for O+P, Cx, C diff, celiac serology GI will Follow. ATTESTATION I personally interviewed and examined the patient. I performed the ortega portions of the E/M visit, discussed case with fellow and concur with fellow documentation of history, physical exam, assessment, and treatment plan unless otherwise noted. Staff name: Negin Larry MD Date: 09/23/2018 Principal Problem: Abdominal pain Active Problems: Other dysphagia Other constipation Intractable cyclical vomiting with nausea Type 1 diabetes mellitus with complication (HCC) Dysthymia Anxiety Migraine with aura and with status migrainosus, not intractable Epigastric pain Chronic abdominal pain Orthostatic hypotension Acquired hypothyroidism LAD (lymphadenopathy), axillary Reason for consult: Assessment: Chelsea Castillo is a 58 y.o. female with history of hypothyroidism, diabetes mellitus type 1, migraine headache, polypharmacy, hx of TBI, anxiety, depression, chronic abdominal pain with nausea and vomiting, who presented to the emergency room with complaint of nausea and vomiting along with abdominal pain. # dysphagia # weight loss # chronic abdominal pain, epigastric, especially post-prandial # Chronic nausea, occasional vomiting # Chronic opioid use # ZHAO # Axillary/iliac LAD DDx: gastroparesis, esophageal dysmotility, PUD, GERD, malignancy, SIBO, narcotic-induced hypomotility, constipation EGD 09/20 showed no abnormalities, random biopsies for EoE were taken Colonoscopy 09/20 showed fair prp, 5 mm transverse colon polyp Recommendations: - check baseline ECG prior to starting Reglan - agree with stopping narcotics - consult dietitian for recommendations on gastroparesis diet - start miralax 17 mg daily for daily soft BMs - follow up with pathology results of endoscopic biopsies Patient discussed with attending on service, Dr. Larry. Chiki Abbott MD Gastroenterology & Hepatology Fellow Pager [phone] HPI/Subjective: The patient feels otherwise well, denies any fever/chills, SOB, chest pain, currently no N/V, abd pain, dysuria. PMH: Past Medical History: Diagnosis Date Arthritis Diabetes mellitus type 1 (HCC) Osteoporosis Stomach problems Thyroid disorder No current facility-administered medications on file prior to encounter. Current Outpatient Prescriptions on File Prior to Encounter Medication Sig Dispense Refill ALPRAZolam (XANAX) 1 mg tablet Take 1 [...] and lunch, and 10 units with dinner. 45 mL 0 levocarnitine(+) (LEVOCARNITINE(+)) 500 mg tablet Take four tablets by mouth twice daily. 240 tablet 1 levothyroxine (SYNTHROID) 175 mcg tablet Take 175 mcg by mouth daily 30 minutes before breakfast. lidocaine/prilocaine (EMLA) 2.5/2.5 % topical cream Apply topically to affected area as Needed. LORazepam (ATIVAN) 1 mg tablet Take 1 mg by mouth four times daily. magnesium oxide (MAG-OX) 400 mg tablet Take one tablet by mouth daily. 180 tablet 3 montelukast (SINGULAIR) 10 mg tablet Take 10 [...] as needed for Nausea. 30 each 0 rizatriptan (MAXALT) 10 mg tablet Take 10 [...] mouth at bedtime as needed for Sleep. Past Surgical History: Procedure Laterality Date GALLBLADDER SURGERY 1989 HX HYSTERECTOMY 12/2001 EYE SURGERY 07/2005 laser eye rietina, eyes were bleeding behind them. CARPAL TUNNEL RELEASE Right 08/2012 right hand HAND SURGERY 09/2013 HERNIA REPAIR 03/2014 ESOPHAGUS SURGERY 03/2014 Esophageal ulcers and healing UPPER GASTROINTESTINAL ENDOSCOPY N/A 09/20/2018 ESOPHAGOGASTRODUODENOSCOPY performed by Charles Freeman MD at ENDO/GI COLONOSCOPY N/A 09/20/2018 COLONOSCOPY performed by Charles Freeman MD at ENDO/GI UPPER GASTROINTESTINAL ENDOSCOPY 09/20/2018 ESOPHAGOGASTRODUODENOSCOPY BIOPSY performed by Charles Freeman MD at ENDO/GI COLONOSCOPY 09/20/2018 COLONOSCOPY BIOPSY performed by Charles Freeman MD at ENDO/GI COLONOSCOPY 09/20/2018 COLONOSCOPY EXCISION LESION performed by Charles Freeman MD at ENDO/GI Social History Social History Marital status: Spouse name: N/A Number of children: N/A Years of education: N/A 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 Social History Main Topics Smoking status: Never Smoker Smokeless tobacco: Never Used Alcohol use No Drug use: Unknown Sexual activity: Not on file Other Topics Concern Not on file Social History Narrative No narrative on file Family History Problem Relation Age of Onset GI Cancer Mother Cancer-Breast Maternal Grandmother Celiac Disease Neg Hx Cancer-Colon Neg Hx Colon Polyps Neg Hx Inflammatory Bowel Disease Neg Hx Rectal Cancer Neg Hx Ulcerative Colitis Neg Hx Physical Exam: Vitals: 09/23/18 0434 09/23/18 0833 09/23/18 1439 09/23/18 1721 BP: 136/80 133/81 142/71 153/76 Pulse: 94 104 83 97 Temp: 36.7 C (98 F) 36.8 C (98.2 F) 36.7 C (98 F) 36.7 C (98 F) SpO2: 97% 100% 100% 100% Weight: Height: General - Alert and oriented, no acute distress. Head - Normocephalic, atraumatic. Eyes - EOMI grossly. No icterus or injection. Oropharynx- No ulcer or bleeding, moist mucosa. Neck - No swelling or tracheal deviation. Pulmonary/Chest - Normal effort, normal breath sounds. CV - Normal rate, regular rhythm, normal heart sounds and intact distal pulses. Abd - ND, soft, Non-TTP. No hepatospenomegaly. Normal bowel sounds. No masses palpable. Extremities - Warm, dry. Skin - No exposed rash, lesion. Neurological - AAOx4, No gross deficit Labs/Imaging: Pertient labs/imaging was reviewed on initiation of progress note. 24-hour labs: Results for orders placed or performed during the hospital encounter of (from the past 24 hour(s)) POC GLUCOSE Collection Time: 09/22/18 8:28 PM Result Value Ref Range Glucose, POC 276 (H) 70 - 100 MG/DL POC GLUCOSE Collection Time: 09/22/18 10:20 PM Result Value Ref Range Glucose, POC 314 (H) 70 - 100 MG/DL POC GLUCOSE Collection Time: 09/23/18 12:17 AM Result Value Ref Range Glucose, POC 248 (H) 70 - 100 MG/DL POC GLUCOSE Collection Time: 09/23/18 2:40 AM Result Value Ref Range Glucose, POC 241 (H) 70 - 100 MG/DL CBC AND DIFF Collection Time: 09/23/18 3:54 AM Result Value Ref Range White Blood Cells 10.6 4.5 - 11.0 K/UL RBC 4.48 4.0 - 5.0 M/UL Hemoglobin 12.9 12.0 - 15.0 GM/DL Hematocrit 39.6 36 - 45 % MCV 88.5 80 - 100 FL MCH 28.9 26 - 34 PG MCHC 32.7 32.0 - 36.0 G/DL RDW 17.7 (H) 11 - 15 % Platelet Count 309 150 - 400 K/UL MPV 9.6 7 - 11 FL Neutrophils 34 (L) 41 - 77 % Lymphocytes 54 (H) 24 - 44 % Monocytes 5 4 - 12 % Eosinophils 6 (H) 0 - 5 % Basophils 1 0 - 2 % Absolute Neutrophil Count 3.60 1.8 - 7.0 K/UL Absolute Lymph Count 5.70 (H) 1.0 - 4.8 K/UL Absolute Monocyte Count 0.50 0 - 0.80 K/UL Absolute Eosinophil Count 0.60 (H) 0 - 0.45 K/UL Absolute Basophil Count 0.10 0 - 0.20 K/UL COMPREHENSIVE METABOLIC PANEL Collection Time: 09/23/18 3:54 AM Result Value Ref Range Sodium 137 137 - 147 MMOL/L Potassium 4.1 3.5 - 5.1 MMOL/L Chloride 101 98 - 110 MMOL/L Glucose 281 (H) 70 - 100 MG/DL Blood Urea Nitrogen 5 (L) 7 - 25 MG/DL Creatinine 0.80 0.4 - 1.00 MG/DL Calcium 8.9 8.5 - 10.6 MG/DL Total Protein 5.7 (L) 6.0 - 8.0 G/DL Total Bilirubin 0.3 0.3 - 1.2 MG/DL Albumin 3.6 3.5 - 5.0 G/DL Alk Phosphatase 57 25 - 110 U/L AST (SGOT) 12 7 - 40 U/L CO2 29 21 - 30 MMOL/L ALT (SGPT) 8 7 - 56 U/L Anion Gap 7 3 - 12 eGFR Non >60 >60 mL/min eGFR >60 >60 mL/min POC GLUCOSE Collection Time: 09/23/18 4:28 AM Result Value Ref Range Glucose, POC 258 (H) 70 - 100 MG/DL POC GLUCOSE Collection Time: 09/23/18 7:45 AM Result Value Ref Range Glucose, POC 257 (H) 70 - 100 MG/DL POC GLUCOSE Collection Time: 09/23/18 2:08 PM Result Value Ref Range Glucose, POC 308 (H) 70 - 100 MG/DL POC GLUCOSE Collection Time: 09/23/18 4:13 PM Result Value Ref Range Glucose, POC 237 (H) 70 - 100 MG/DL POC GLUCOSE Collection Time: 09/23/18 8:07 PM Result Value Ref Range Glucose, POC 295 (H) 70 - 100 MG/DL Pertinent radiology reviewed. SAWYER * Deborah Velasco RN - 09/23/2018 5:23 PM LAST SAWYER 0745: BS 257. Sliding scale correction factor administered as ordered. 1408: BS 308. Sliding scale correction factor administered as ordered. Dr. Morrison updated and changes made to insulin orders. SAWYER * Deborah Ordonez RD - 09/23/2018 4:07 PM LAST SAWYER CLINICAL NUTRITION Clinical Nutrition Follow-Up Summary NAME:Chelsea Castillo :1960 AGE: 58 y.o. ADMISSION DATE: 09/17/2018 DAYS ADMITTED: LOS: 5 days Nutrition Assessment of Patient: Malnutrition Assessment: Does not meet criteria Current Oral Intake: Marginally Adequate Estimated Calorie Needs: 2754-1695 (25-28 kcal/kg present wt 63.6kg) Estimated Protein Needs: 63-75 (1-1.2 g/kg present wt) Oral Diet Order: Diabetic 7373-8906 Kcal/day (60 g Carb/meal, 30 g Carb/HS snack ) Comments: 58 y.o. female with PMHX of diabetes, anxiety, depression, hypothyroidism, migraine headaches, gastritis, cholecystectomy, thyroidectomy presenting with intractable abdominal pain and nausea/vomiting. Pt is a poor historian, she answered yes/no/I don't know to all questions even if open ended. Pt NPO frequently for tests this admission. OOR for videoswallow per RN. Diabetic diet (60 g/meal) onboard. RN states pt ate eggs for gastric emptying study today. CT on admit shows stomach to rectum full of stool. Per EMR wt is stable, -2# in 2 months is not significant. Pt not appropriate for diabetes education, did note A1c 9.8 09/18/18. No pressure injuries. Trace BLE edema present. S/w RN who will offer Boost to pt this evening 2/2 OOR for tests majority of the day today. Recommendation: Continue current diet as ordered. Offer Boost GC if pt missing meals. Intervention / Plan: Monitor PO intake adequacy/tolerance, wt trends, meds, labs, and GI health. Nutrition Diagnosis: Inadequate oral intake Etiology: NPO Signs & Symptoms: procedures since admit Goals: Avoid prolonged NPO status Time Frame: Within 48 Hours Status: Met Initiate nutrition Time Frame: Within 48 Hours Status: Met;new goal established Patient to consume >75% of meals Time Frame: Within [address], LD [phone] *[phone] SAWYER * Malia oCrdero MS,[facility] - 09/23/2018 3:55 PM LAST SAWYER SPEECH-LANGUAGE PATHOLOGY VIDEOSWALLOW ASSESSMENT EVALUATION SUMMARY Videoswallow Summary*: A Videoswallow study was completed this date. Results indicate minimal oropharyngeal dysphagia. Pt with mild penetration of thin liquid and nectar thick barium before/during the swallow, with contrast visualized to fully clear laryngeal vestibule upon completion of swallow. Incidence of penetration reduced but not eliminated with smaller bolus volume; minimal to no change appreciated for chin tuck. Pt denied globus sensation during this exam but reports typically improved with alternating liquids/ solids. Anticipate swallow at or near baseline. Pt with reported anxiety during this exam and regarding swallow in general. RECOMMENDATIONS Regular diet with thin liquids Swallow strategies: small bites/sips, slow rate, alternate liquids/solids PO meds as tolerated No acute HEADHUNTER needs identified MBSImp Scale: Lip closure for intraoral bolus containment resulted in no labial escape. Tongue control during bolus hold maintained a cohesive bolus held between tongue to palate seal. Bolus preparation and mastication resulted in timely and efficient chewing and mashing. Bolus transport/lingual motion was with brisk tongue motion. Oral residue was a trace, lining oral structures. Initiation of the pharyngeal swallow occured as the bolus head was at the posterior laryngeal surface of the epigliottis. Soft palate elevation resulted in no bolus between the soft palate and the pharyngeal wall. Laryngeal elevation was decreased, with partial superior movement of the thyoid cartilage/ partial approximation of the arytenoids to the epigoittic petiole. Anterior hyoid excursion demonstrated complete anterior movement. Epiglottic movement resulted in complete inversion. Laryngeal vestibular closure was incomplete, with narrow column of air/contrast noted within the laryngeal vestibule at the height of the swallow. Pharyngeal stripping wave was present, but diminished. Pharyngeal contraction could not be assessed due to logistical reasons not related to physiologic impairment. Pharyngoesophageal segment opening demonstrated partial distention /partial duration, with partial obstruction of bolus flow. Tongue base retraction allowed a trace column of contrast or air between the retracted tongue base and the posterior pharyngeal wall. Pharyngeal residue was a collection of residue within or on pharyngeal structures. Esophageal clearance in the upright position could not be assessed due to logistical reasons not related to physiologic impairment. Swallow Recommendations* PO: Regular, Thin Liquids Swallow Strategies: Small Bites/Sips, Slow Rate of Intake, Alternate Solids and Liquids Recommendation Comments: PO meds as tolerated Plan*: Patient Functioning at Baseline. No Further Speech Therapy Indicated at this Time. Prognosis*: Good NOMS Dysphagia Rating*: 6-Minimal Dysphagia -Swallow safe, pt eats/drinks indep , may require min cues. Usually self-cues when difficulty occurs. May need to avoid specific food items (e.g., popcorn & nuts) or need more time (due to dysphagia). Penetration Aspiration Scale*: 2 - Material enters laryngeal vestibule, remains above vocal folds & is ejected Objective* Relevant Med Background: 58 y.o. female with PMHX of diabetes, anxiety, depression, hypothyroidism, migraine headaches, gastritis, cholecystectomy, thyroidectomy presenting with intractable abdominal pain and nausea/vomiting CT chest 09/18 impressions 1. Decreased to stable enlarged bilateral axillary and subpectoral lymph nodes. No new or enlarging thoracic lymphadenopathy. Differential considerations are unchanged and would include collagen vascular disease, certain infection such as mononucleosis or lymphoproliferative disorder such as lymphoma or CLL. 2. Unchanged tiny soft tissue nodule along the lateral aspect of the left breast. Diagnostic mammography is recommended for further characterization if not already performed. 3. Unchanged tiny bilateral pulmonary nodules. In a low-risk patient, no follow- up of these nodules is required. In a high-risk patient, optional follow-up CT chest could be obtained in 12 months to evaluate for stability. Psychosocial Status: Willing and Cooperative to Participate Persons Present: None Subjective* Pain: Patient has no complaint of pain Trach Presence: No Feeding Tube Present During Eval: None Nutrition* Nutrition Prior To Hospitalization: Oral, Regular, Thin Liquids Current Form Of Nutrition: Oral, Regular, Thin Liquids Views / Seating* Views / Seating: Lateral View, Sitting at 90 Degrees Upright Barium Consist/Presentation* Presentations: Therapist Fed, Patient Fed Self Thin Liquid: 1 Tsp, Cup, Straw, Consecutive Swallows [place] Thick Liquid: Cup Other Consistencies: Pudding, Regular Solids Swallow Strategies Small Bites and Sips: Effective Slow Rate of Intake: Effective Alternate Solids / Liquids: Effective Education* Persons Educated: Patient Barriers To Learning: Anxiety Interventions: Staff Educated Teaching Methods: Verbal Topics: Dysphagia Patient Response: Verbalized Understanding G-Codes: Swallowing G 8996 Current Status: 1-19% Impairment G 8997 Goal Status: 1-19% Impairment G 8998 Discharge Status: 1-19% Impairment Based on above evaluation and clinical judgment. Therapist: Malia Cordero MS,[facility]-HEADHUNTER [id number] Date: 09/23/2018 SAWYER * Quincy Morris DO - 09/23/2018 2:28 PM LAST SAWYER Endocrinology Progress Note Name: Chelsea Castillo Today's Date: 09/23/2018 Admission Date: 09/17/2018 LOS: 5 days Principal Problem: Abdominal pain Active Problems: Other dysphagia Other constipation Intractable cyclical vomiting with nausea Type 1 diabetes mellitus with complication (HCC) Dysthymia Anxiety Migraine with aura and with status migrainosus, not intractable Epigastric pain Chronic abdominal pain Orthostatic hypotension Acquired hypothyroidism LAD (lymphadenopathy), axillary Reason for Consult: "58 yo female hx of brittle dm, pt with syncopal episoded and hypoglycemia overnight, please assist with dm management" Assessment/Plan: Chelsea Castillo is a 58 y.o. female with arthritis, osteoporosis, hypothyroidism and DM type 1 who presented on 09/18/2018 with intractable nausea /vomiting in the setting of chronic abdomina pain. Endocrinology consulted for DM management. 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 Patton PCP for diabetes management Diabetic-complications assessment: Retinopathy: yes. . Peripheral neuropathy: yes Autonomic neuropathy: no Nephropathy: No Macrovascular complications: no known CAD Risk Factor assessment Last lipid profile Lab Results Component Value Date CHOL 176 09/18/2018 TRIG 161 (H) 09/18/2018 HDL 53 09/18/2018 LDL 96 09/18/2018 VLDL 32 09/18/2018 NONHDLCHOL 123 09/18/2018 BP Readings from Last 1 Encounters: 09/23/18 133/81 On ACEi/ARB?: no On Statin?: no Acute on Chronic abdominal pain Lymphadenopathy Being worked up by hematology Hypothyroidism 09/18/2018 TSH 6.14 On levothyroxine 175 mcg daily Impression / Recommendations Missed breakfast and lunch dose, leading to significant hyperglycemia. Cont Lantus 13 units nightly Increase novolog 4 units postmeal dosing as she starts to eat Continue low-dose correction factor Once patient starts eating again will require mealtime insulin Pt was discussed with Dr. Rosio Perdomo Chelsea Castillo is a 58 y.o. female. Resting comfortably this morning with no acute events overnight but continues to have diarrhea and she also reports a good appetite. Denies fever, chills, nausea, vomiting Physical Exam General: Alert, cooperative, no distress Lungs: Non-labored Abdomen: Non-distended Skin: No rashes Extremities: No cyanosis Medications Scheduled Meds: carBAMazepine (TEGRETOL) tablet 400 mg 400 mg Oral QDAY duloxetine DR (CYMBALTA) capsule 60 mg 60 mg Oral BID electrolyte GUT PEG (NULYTELY, COLYTE, GAVILYTE-N) oral solution 4 L 4 L Oral As Prescribed fludrocortisone (FLORINEF) tablet 0.3 mg 0.3 mg Oral QDAY insulin aspart U-100 (NOVOLOG FLEXPEN) injection PEN 0-7 Units 0-7 Units Subcutaneous ACHS insulin aspart U-100 (NOVOLOG FLEXPEN) injection PEN 4 Units 4 Units Subcutaneous TID w/ meals insulin glargine (LANTUS SOLOSTAR, BASAGLAR) injection PEN 13 Units 13 Units Subcutaneous QHS levothyroxine (SYNTHROID) tablet 175 mcg 175 mcg Oral QDAY 30 min before breakfast sucralfate (CARAFATE) oral suspension 1 g/10ml Patient Own Med 1 g Oral ACHS Continuous Infusions: PRN and Respiratory Meds:acetaminophen Q6H PRN, acetaminophen/lidocaine/antacid DS(#) QID PRN, ALPRAZolam BID PRN, electrolyte GUT PEG PRN (Staff Appraiser from Rx), ondansetron (ZOFRAN) IV Q6H PRN, zolpidem QHS PRN Objective Vital Signs: Last Filed Vital Signs: 24 Hour Range BP: 133/81 (09/23 833) Temp: 36.8 C (98.2 F) (09/23 833) Pulse: 104 (09/23 833) Respirations: 18 PER MINUTE (09/23 833) SpO2: 100 % (09/23 833) O2 Delivery: None (Room Air) (09/23 833) BP: (133-138)/(80-81) Temp: [36.7 C (98 F)-37.2 C (98.9 F)] Pulse: [87-104] Respirations: [18 PER MINUTE] SpO2: [97 %-100 %] O2 Delivery: None (Room Air) Intensity Pain Scale (Self Report): 5 (09/23/18 0745) Vitals: 09/18/18 0112 09/18/18 1400 09/18/18 1447 Weight: 63.3 kg (139 lb 8.8 oz) 63.3 kg (139 lb 8.8 oz) 63 kg (139 lb) Intake/Output Summary: (Last 24 hours) Intake/Output Summary (Last 24 hours) at 09/23/18 1428 Last data filed at 09/23/18 0834 Gross per 24 hour Intake 0 ml Output 150 ml Net -150 ml Stool Occurrence: 1 Lab Review 24-hour labs: Results for orders placed or performed during the hospital encounter of (from the past 24 hour(s)) POC GLUCOSE Collection Time: 09/22/18 5:06 PM Result Value Ref Range Glucose, POC 94 70 - 100 MG/DL POC GLUCOSE Collection Time: 09/22/18 5:36 PM Result Value Ref Range Glucose, POC 76 70 - 100 MG/DL POC GLUCOSE Collection Time: 09/22/18 8:28 PM Result Value Ref Range Glucose, POC 276 (H) 70 - 100 MG/DL POC GLUCOSE Collection Time: 09/22/18 10:20 PM Result Value Ref Range Glucose, POC 314 (H) 70 - 100 MG/DL POC GLUCOSE Collection Time: 09/23/18 12:17 AM Result Value Ref Range Glucose, POC 248 (H) 70 - 100 MG/DL POC GLUCOSE Collection Time: 09/23/18 2:40 AM Result Value Ref Range Glucose, POC 241 (H) 70 - 100 MG/DL CBC AND DIFF Collection Time: 09/23/18 3:54 AM Result Value Ref Range White Blood Cells 10.6 4.5 - 11.0 K/UL RBC 4.48 4.0 - 5.0 M/UL Hemoglobin 12.9 12.0 - 15.0 GM/DL Hematocrit 39.6 36 - 45 % MCV 88.5 80 - 100 FL MCH 28.9 26 - 34 PG MCHC 32.7 32.0 - 36.0 G/DL RDW 17.7 (H) 11 - 15 % Platelet Count 309 150 - 400 K/UL MPV 9.6 7 - 11 FL Neutrophils 34 (L) 41 - 77 % Lymphocytes 54 (H) 24 - 44 % Monocytes 5 4 - 12 % Eosinophils 6 (H) 0 - 5 % Basophils 1 0 - 2 % Absolute Neutrophil Count 3.60 1.8 - 7.0 K/UL Absolute Lymph Count 5.70 (H) 1.0 - 4.8 K/UL Absolute Monocyte Count 0.50 0 - 0.80 K/UL Absolute Eosinophil Count 0.60 (H) 0 - 0.45 K/UL Absolute Basophil Count 0.10 0 - 0.20 K/UL COMPREHENSIVE METABOLIC PANEL Collection Time: 09/23/18 3:54 AM Result Value Ref Range Sodium 137 137 - 147 MMOL/L Potassium 4.1 3.5 - 5.1 MMOL/L Chloride 101 98 - 110 MMOL/L Glucose 281 (H) 70 - 100 MG/DL Blood Urea Nitrogen 5 (L) 7 - 25 MG/DL Creatinine 0.80 0.4 - 1.00 MG/DL Calcium 8.9 8.5 - 10.6 MG/DL Total Protein 5.7 (L) 6.0 - 8.0 G/DL Total Bilirubin 0.3 0.3 - 1.2 MG/DL Albumin 3.6 3.5 - 5.0 G/DL Alk Phosphatase 57 25 - 110 U/L AST (SGOT) 12 7 - 40 U/L CO2 29 21 - 30 MMOL/L ALT (SGPT) 8 7 - 56 U/L Anion Gap 7 3 - 12 eGFR Non >60 >60 mL/min eGFR >60 >60 mL/min POC GLUCOSE Collection Time: 09/23/18 4:28 AM Result Value Ref Range Glucose, POC 258 (H) 70 - 100 MG/DL POC GLUCOSE Collection Time: 09/23/18 7:45 AM Result Value Ref Range Glucose, POC 257 (H) 70 - 100 MG/DL POC GLUCOSE Collection Time: 09/23/18 2:08 PM Result Value Ref Range Glucose, POC 308 (H) 70 - 100 MG/DL Point of Care Testing (Last 24 hours) Glucose: (!) 281 (09/23/18 0354) POC Glucose (Download): (!) 308 (09/23/18 1408) Radiology and other Diagnostics Review: Pertinent radiology reviewed. Anmol Morrison MD Endocrinology Fellow PGY [phone] SAWYER Associated attestation - Taylor Avelar MD - 09/23/2018 10:40 PM LAST SAWYER ATTESTATION I personally performed the ortega portions of the E/M visit, discussed case with resident and concur with resident documentation of history, physical exam, assessment, and treatment plan unless otherwise noted. Staff name: Taylor Avelar MD Date: 09/23/2018 * Miguelina Mckeon PT - 09/23/2018 1:47 PM LAST [facility]ER PHYSICAL THERAPY ASSESSMENT MOBILITY: Progressive Mobility Level: Walk in room Distance Walked (feet): 20 ft Level of Assistance: Stand by assistance Assistive Device: Walker Time Tolerated: 0-10 minutes Activity Limited By: No limitations SUBJECTIVE: Subjective Significant hospital events: 58 y.o. female with PMHX of diabetes, anxiety, depression, hypothyroidism, migraine headaches, gastritis, cholecystectomy, thyroidectomy presenting with intractable abdominal pain and nausea/vomiting Mental / Cognitive Status: Alert;Cooperative;Follows Commands Persons Present: Spouse;Sister Pain: Patient complains of pain;Patient does not rate pain Pain Location: (stomach) Pain Description: Aching Pain Interventions: Patient agrees to participate in therapy;Patient assisted into position of comfort Ambulation Assist: Independent Mobility in Community with Device Patient Owned Equipment: Single Point Cane;Roller Walker Home Situation: Lives with Family Type of Home: House Entry Stairs: 3-5 Stairs;Rail on 1 Side (4 steps to enter front door) In-Home Stairs: 1-2 Flights of Stairs (basement with garage entry) Comments: Previously independent with ADLs/mobility. Per , patient would intermittenly need assist at home when she was feeling very sick or was having a bad day. ROM: ROM UE ROM: WFL LE ROM: WFL STRENGTH: Strength Overall Strength: WFL POSTURE/NEURO: Posture / Neurological Head Control: Independent Posture: No Postural Deviations BED MOBILITY/TRANSFERS: Bed Mobility/Transfers Comments: Patient seated in bedside chair upon arrival this date Transfer Type: Sit to Stand Transfer: Assistance Level: To/From;Bed Side Chair;Toilet;Standby Assist Transfer: Assistive Device: None Transfers: Type Of Assistance: For Safety Considerations End Of Activity Status: Up in Chair;Nursing Notified;Instructed Patient to Request Assist with Mobility;Instructed Patient to Use Call Light BALANCE: Balance Sitting Balance: Static Sitting Balance;Dynamic Sitting Balance;Independent Standing Balance: Static Standing Balance;Dynamic Standing Balance;Standby Assist GAIT: Gait Gait Distance: 20 feet Gait: Assistance Level: Standby Assist Gait: Assistive Device: Roller Walker Gait: Descriptors: Pace: Slow;Swing-Through Gait;No balance loss;Normal step length Comments: Ambulation distance limited this date secondary to stomach ache from recent gastric emptying study. Activity Limited By: Complaint of Pain;Complaint of Fatigue EDUCATION: Education Persons Educated: Patient Patient Barriers To Learning: None Noted Teaching Methods: Verbal Instruction Patient Response: Verbalized Understanding Topics: Plan/Goals of PT Interventions;Mobility Progression;Safety Awareness;Up with Assist Only;Importance of Increasing Activity;Ambulate With Nursing; Recommend Continued Therapy ASSESSMENT/PROGRESS: Assessment/Progress Impaired Mobility Due To: Pain;Decreased Activity Tolerance Assessment/Progress: Should Improve w/ Continued [...] with a railing: A Little Raw Score: 18 Standardized (T-scale) Score: 41.05 Basic Mobility CMS 0-100%: 40.47 CMS G Code Modifier for Basic Mobility: CK GOALS: Goals Goal Formulation: With Patient Time For Goal Achievement: 3 days, To, 5 days Pt Will Go Supine To/From Sit: Independently Pt Will Transfer Sit to Stand: Independently Pt Will Ambulate: Greater than 200 Feet, Independently Pt Will Go Up / Down Stairs: 3-5 Stairs, Independently PLAN: Plan Treatment Interventions: Mobility Training;Strengthening;Endurance Training Plan Frequency: 5 Days per Week PT Plan for Next Visit: Progress gait distance and trial stairs next visit - biopsy planned for 09/24 or sooner if able. RECOMMENDATIONS: PT Discharge Recommendations: Home with Assistance (assist from family, as needed) Equipment Recommendations: None;Patient owns necessary equipment Therapist: Miguelina Mckeon PT, DPT Date: 09/23/2018 SAWYER * Jennifer Santizo OT - 09/23/2018 12:56 PM LAST SAWYER OCCUPATIONAL THERAPY Occupational therapy valuation attempted, patient currently off unit for gastric emptying study. OT will follow up as able and provide intervention as indicated. KUSUM [place] [id number] SAWYER * Pauly Morrison MD - 09/23/2018 11:34 AM LAST SAWYER Progress Note - Internal Medicine Brief Clinical Summary 58 y.o.female(PMHx:TBI;DMII;Anxiety;Depression;Hypothyroidism;Migraines; Gastritis) presented on 09/17/2018 w/intractable N/V and abdominal pain, and dysphagia --> found to have lymphadenopathy. Hematology consulted and recommended excisional biopsy but none amenable, so IR-guided biopsy 09/24. GES 09/23. Consultants - GI, General Surgery, Hematology. Assessment (differential diagnosis) | Status Subacute dysphagia associate with nausea and vomiting (autonomic neuropathy versus GERD) | Progressive. EGD performed 09/20/2018 demonstrated normal esophagus with diffuse gastric erythema and numerous gastric polyps that were removed. Chronic epigastric pain (diabetic gastroparesis versus other) | Ongoing. Has multiple admissions and ED visits for similar abdominal pain. Concern for polypharmacy at home with opioids administered each visit for symptomatic management. CT scan on admission was unremarkable apart from a GI tract. Tense from stomach to rectum even though patient reported no intake for 3 days. Colonoscopy performed 09/20/2018 demonstrated normal terminal ileum and colonic mucosa with a 5 mm polyp removed. Hypoglycemia | Resolved afterhospital event with associated loss of consciousness. Iron deficiency | Noted on iron studies collected 07/19/2018. History of TBI | By report, some cognitive difficulty but no clear documentation of cognitive testing. Becomes easily perturbed with complex discussions. Type I diabetes mellitus | Uncontrolled, but improving control. Most recent hemoglobin A1c 9.8% on 09/18/2018 which is down from 07/19/2018 when it was 11.4% . Endocrinology consulted 09/19/2018. Diabetes comp located by peripheral neuropathy proliferative diabetic retinopathy. 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 At the time of admission TSH 6.1 and free T4 1.0. Lymphadenopathy (occult malignancy) | CT scan at the time of presentation demonstrated external iliac lymphadenopathy 1.6 cm short axis lymph node noted. Was also found to have lymphadenopathy in the axillary area and had originally had plans to be seen by Oncology as an outpatient. Was originally recommended to have an excisional biopsy of the external iliac node, however, they recommended IR biopsy. Orthostasis (autonomic neuropathy) | Intermittent, but reasonably controlled on fludrocortisone 0.3 mg daily. Depression (situational versus organic) | Controlled. Seen by Psychiatry, who recommended continuation of duloxetine 60 mg twice daily, and a lower dose of alprazolam to 0.5 mg twice daily as well as lowered dose of zolpidem. Psychology consulted. Obesity | Body mass index is 23.13 kg/m. At risk for DVT (hospitalization/immobilization) | Pharmacologic prophylaxis on hold due to anticipated procedure Plan Gastric emptying study IRguided biopsy 09/23/2018 We will check orthostatics prior to discharge Video swallow Keeganusman Michel from [place], [place] has been involved in her care AM pyridoxal 5-phosphate Await pathology from EGD and colonoscopy performed 09/20/2018 Subjective No new symptoms but continuation of mild epigastric pain. She states somewhat better with deep inspiration. Denies fever, chills, has no nausea or vomiting. Hungry. Interested in having her gastric emptying study complete so that she can eat again. Anxiety in the room, and has questions about possible memory loss due to history of traumatic brain injury. Review of Systems CONS: No subjective fever, no chills. CVS: No palpitations. No chest pain. RESP: No dyspnea. No cough. GI: Mild epigastric abdominal pain. No diarrhea or constipation. No nausea, no vomiting. Objective Vital Signs Temp: [36.6 C (97.9 F)-37.2 C (98.9 F)] Pulse: [87-104] Respirations: [16 PER MINUTE-18 PER MINUTE] SpO2: [97 %-100 %] BP: (120-138)/(76-81) I/Os from Yesterday's Shift 09/22 0701 - 09/23 0700 In: 720 [P.O.:720] Out: 350 [Urine:350] Physical Examination GEN: Alert and oriented x3 (person/place/time), NAD. CVS: S1/S2 audible, no murmurs audible. Appears and feels warm and well- perfused. RESP: Lungs clear to ascultation. No wheezes, rhonchi, nor crackles. GI: Abdomen soft. Non-tender to palpation. SKIN: Warm. Dry. Lab Studies Recent labs reviewed. Notable for: Hemoglobin 12.9 Platelet count 309 White blood cell count 10.6 Sodium 137 Potassium 4.1 Chloride 101 Bicarb 29 Anion gap 7 BUN 5 Creatinine 0.8 AST 12 LT 8 Alk phos 57 Morning glucose 257 Imaging Studies Recent imaging reviewed. Notable for: Colonoscopy performed 09/20/2018 with normal terminal ileal and colonic mucosa with a 5 mm transverse polyp removed with a cold snare. EGD performed 09/20/2018 with normal esophagus and the GE junction at 36 with random biopsies obtained. Diffuse erythema with small gastric polyps in the stomach and normal duodenum. Microbiological Studies Recent microbiology reviewed. Notable for: Blood culture obtained 07/19/2018 with no growth at 5 days (final) Discharge Planning/Barriers to Discharge Anticipate discharge to previous setting once symptoms improved As outpatient already established with Hematology Future Appointments Date Time Provider Department Center 09/24/2018 1:45 PM IR ROOM 5 IR Interv Radio 09/26/2018 9:20 AM Yanet Cormier MD [facility] Neuro 10/02/2018 10:20 AM Milena Bhatti MD [facility] Exam 10/08/2018 10:20 AM Taylor Avelar MD [facility]IM[facility] IM 11/22/2018 3:00 PM Gunnar Kirk MD [facility] IM Daily Rounding Checklist Line necessity Sotelo necessity Telemetry necessity PT/OT necessity DME needs evaluated and supplied Diet at highest level IV --> PO medications Teaching needs Pharmacy needs Wound care needs Planned D/C location (Home/LTAC/SNF/Rehab/Other) Pauly Morrison M.D. Department of Internal Medicine 09/23/2018 11:34 AM SAWYER * Miguelina Mckeon, PT - 09/23/2018 9:51 AM LAST SAWYER PHYSICAL THERAPY NOTE Physical therapy orders received and appreciated. PT evaluation attempted, patient currently off unit for gastric emptying study. PT will follow up as able and provide intervention as indicated. Therapist: Miguelina Mckeon, PT Date: 09/23/2018 SAWYER * Malia Cordero MS,CCC-HEADHUNTER - 09/23/2018 9:28 AM LAST SAWYER SPEECH-LANGUAGE PATHOLOGY NO TREATMENT NOTE Chart reviewed and made contact with RN. Orders received for videoswallow study. Pt currently off floor for gastric emptying study. Videoswallow study tentatively scheduled for 15:00 today. Will plan to follow up with RN later this date to ensure pt readiness to participate. Of note, pt reportedly also to be NPO at midnight for procedure 09/24 for left external iliac lymph node biopsy. Therapist: Malia Cordero MS,CCC-HEADHUNTER [id number] Date: 09/23/2018 SAWYER * Blas Atkinson APRN-NP - 09/23/2018 8:37 AM LAST SAWYER Interventional Radiology Case Review Note Procedure request for left axillary lymph node biopsy has been reviewed with Dr. Peterson and added onto the [place] IR CT schedule for tomorrow. Please keep NPO at midnight. Labs, medications, and allergies meet procedural protocol. LUIS Medel Pgr [phone] Thank you for allowing us to participate in the care of this patient. Please page with questions or concerns. If calling after hours or over the weekend please page the IR resident law firm consultant @ . SAWYER * Lovely Mathews - 09/22/2018 12:40 PM LAST SAWYER Pharmacy Note: Patients Own Med The following medications have been identified by pharmacy and placed in the locked medication box for storage: The patient may use their own supply of these medications during this admission. All doses should be administered and documented per hospital policy. Pharmacy: [facility] Prescriber: Keegan Michel Rx #: [id number] Drug: Carafate Susp (Sucralfate) 1gm/10mL Mfr: Cesilia Lot:n/a Exp: 06/12/2019 Lovely Mathews Clinical Welding Tester 09/22/18 SAWYER * Anmol Morrison MD - 09/22/2018 11:34 AM LAST SAWYER Endocrinology Progress Note Name: Chelsea Castillo Today's Date: 09/22/2018 Admission Date: 09/17/2018 LOS: 4 days Principal Problem: Abdominal pain Active Problems: Other dysphagia Other constipation Intractable cyclical vomiting with nausea Type 1 diabetes mellitus with complication (HCC) Dysthymia Anxiety Migraine with aura and with status migrainosus, not intractable Epigastric pain Chronic abdominal pain Orthostatic hypotension Acquired hypothyroidism LAD (lymphadenopathy), axillary Reason for Consult: "58 yo female hx of brittle dm, pt with syncopal episoded and hypoglycemia overnight, please assist with dm management" Assessment/Plan: Chelsea Castillo is a 58 y.o. female with arthritis, osteoporosis, hypothyroidism and DM type 1 who presented on 09/18/2018 with intractable nausea /vomiting in the setting of chronic abdomina pain. Endocrinology consulted for DM management. 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 aPtton PCP for diabetes management Diabetic-complications assessment: Retinopathy: yes. . Peripheral neuropathy: yes Autonomic neuropathy: no Nephropathy: No Macrovascular complications: no known CAD Risk Factor assessment Last lipid profile Lab Results Component Value Date CHOL 176 09/18/2018 TRIG 161 (H) 09/18/2018 HDL 53 09/18/2018 LDL 96 09/18/2018 VLDL 32 09/18/2018 NONHDLCHOL 123 09/18/2018 BP Readings from Last 1 Encounters: 09/22/18 123/73 On ACEi/ARB?: no On Statin?: no Acute on Chronic abdominal pain Lymphadenopathy Being worked up by hematology Hypothyroidism 09/18/2018 TSH 6.14 On levothyroxine 175 mcg daily Impression / Recommendations Tight fasting BG decrease Lantus 13 units nightly Will add novolog 2 units postmeal dosing as she starts to eat Continue low-dose correction factor Once patient starts eating again will require mealtime insulin Pt was discussed with Dr. Abbey Perdomo Chelsea Castillo is a 58 y.o. female. She is sitting in her chair. Reports no nausea or vomiting today Denies any SOB, chest pain ,palpitation. Physical Exam General: Alert, cooperative, no distress Lungs: Non-labored Abdomen: Non-distended Skin: No rashes Extremities: No cyanosis Medications Scheduled Meds: carBAMazepine (TEGRETOL) tablet 400 mg 400 mg Oral QDAY duloxetine DR (CYMBALTA) capsule 60 mg 60 mg Oral BID electrolyte GUT PEG (NULYTELY, COLYTE, GAVILYTE-N) oral solution 4 L 4 L Oral As Prescribed fludrocortisone (FLORINEF) tablet 0.3 mg 0.3 mg Oral QDAY insulin aspart U-100 (NOVOLOG FLEXPEN) injection PEN 0-7 Units 0-7 Units Subcutaneous ACHS insulin aspart U-100 (NOVOLOG FLEXPEN) injection PEN 2 Units 2 Units Subcutaneous TID after meals insulin glargine (LANTUS SOLOSTAR, BASAGLAR) injection PEN 13 Units 13 Units Subcutaneous QHS levothyroxine (SYNTHROID) tablet 175 mcg 175 mcg Oral QDAY 30 min before breakfast sucralfate (CARAFATE) tablet 1 g 1 g Oral ACHS Continuous Infusions: PRN and Respiratory Meds:acetaminophen Q6H PRN, acetaminophen/lidocaine/antacid DS(#) QID PRN, ALPRAZolam BID PRN, electrolyte GUT PEG PRN (Staff Appraiser from Rx), ondansetron (ZOFRAN) IV Q6H PRN, zolpidem QHS PRN Objective Vital Signs: Last Filed Vital Signs: 24 Hour Range BP: 123/73 (09/22 941) Temp: 36.9 C (98.5 F) (09/22 941) Pulse: 88 (09/22 941) Respirations: 18 PER MINUTE (09/22 941) SpO2: 99 % (09/22 941) O2 Delivery: None (Room Air) (09/22 941) BP: (123-161)/(73-87) Temp: [36.6 C (97.9 F)-37.1 C (98.8 F)] Pulse: [82-127] Respirations: [16 PER MINUTE-18 PER MINUTE] SpO2: [99 %-100 %] O2 Delivery: None (Room Air) Intensity Pain Scale (Self Report): 10 (09/22/18 0745) Vitals: 09/18/18 0112 09/18/18 1400 09/18/18 1447 Weight: 63.3 kg (139 lb 8.8 oz) 63.3 kg (139 lb 8.8 oz) 63 kg (139 lb) Intake/Output Summary: (Last 24 hours) Intake/Output Summary (Last 24 hours) at 09/22/18 1134 Last data filed at 09/22/18 0942 Gross per 24 hour Intake 1160 ml Output 400 ml Net 760 ml Stool Occurrence: 1 Lab Review 24-hour labs: Results for orders placed or performed during the hospital encounter of (from the past 24 hour(s)) POC GLUCOSE Collection Time: 09/21/18 11:35 AM Result Value Ref Range Glucose, POC 226 (H) 70 - 100 MG/DL POC GLUCOSE Collection Time: 09/21/18 1:45 PM Result Value Ref Range Glucose, POC 288 (H) 70 - 100 MG/DL POC GLUCOSE Collection Time: 09/21/18 6:12 PM Result Value Ref Range Glucose, POC 264 (H) 70 - 100 MG/DL POC GLUCOSE Collection Time: 09/21/18 9:23 PM Result Value Ref Range Glucose, POC 312 (H) 70 - 100 MG/DL POC GLUCOSE Collection Time: 09/21/18 11:48 PM Result Value Ref Range Glucose, POC 177 (H) 70 - 100 MG/DL POC GLUCOSE Collection Time: 09/22/18 1:46 AM Result Value Ref Range Glucose, POC 122 (H) 70 - 100 MG/DL CBC AND DIFF Collection Time: 09/22/18 4:43 AM Result Value Ref Range White Blood Cells 9.0 4.5 - 11.0 K/UL RBC 4.52 4.0 - 5.0 M/UL Hemoglobin 13.3 12.0 - 15.0 GM/DL Hematocrit 38.1 36 - 45 % MCV 84.4 80 - 100 FL MCH 29.4 26 - 34 PG MCHC 34.8 32.0 - 36.0 G/DL RDW 17.3 (H) 11 - 15 % Platelet Count 258 150 - 400 K/UL MPV 8.8 7 - 11 FL Neutrophils 34 (L) 41 - 77 % Lymphocytes 49 (H) 24 - 44 % Monocytes 6 4 - 12 % Eosinophils 10 (H) 0 - 5 % Basophils 1 0 - 2 % Absolute Neutrophil Count 3.00 1.8 - 7.0 K/UL Absolute Lymph Count 4.40 1.0 - 4.8 K/UL Absolute Monocyte Count 0.60 0 - 0.80 K/UL Absolute Eosinophil Count 0.90 (H) 0 - 0.45 K/UL Absolute Basophil Count 0.10 0 - 0.20 K/UL COMPREHENSIVE METABOLIC PANEL Collection Time: 09/22/18 4:43 AM Result Value Ref Range Sodium 140 137 - 147 MMOL/L Potassium 2.6 (LL) 3.5 - 5.1 MMOL/L Chloride 101 98 - 110 MMOL/L Glucose 75 70 - 100 MG/DL Blood Urea Nitrogen 3 (L) 7 - 25 MG/DL Creatinine 0.64 0.4 - 1.00 MG/DL Calcium 8.7 8.5 - 10.6 MG/DL Total Protein 5.9 (L) 6.0 - 8.0 G/DL Total Bilirubin 0.3 0.3 - 1.2 MG/DL Albumin 3.5 3.5 - 5.0 G/DL Alk Phosphatase 50 25 - 110 U/L AST (SGOT) 13 7 - 40 U/L CO2 32 (H) 21 - 30 MMOL/L ALT (SGPT) 11 7 - 56 U/L Anion Gap 7 3 - 12 eGFR Non >60 >60 mL/min eGFR >60 >60 mL/min POC GLUCOSE Collection Time: 09/22/18 5:36 AM Result Value Ref Range Glucose, POC 82 70 - 100 MG/DL POC GLUCOSE Collection Time: 09/22/18 7:23 AM Result Value Ref Range Glucose, POC 207 (H) 70 - 100 MG/DL POC GLUCOSE Collection Time: 09/22/18 9:44 AM Result Value Ref Range Glucose, POC 316 (H) 70 - 100 MG/DL Point of Care Testing (Last 24 hours) Glucose: 75 (09/22/18 0443) POC Glucose (Download): (!) 316 (09/22/18 4336) Radiology and other Diagnostics Review: Pertinent radiology reviewed. Anmol Morrison MD Endocrinology Fellow PGY [phone] SAWYER Associated attestation - Arik Potter MD - 09/22/2018 11:40 AM LAST SAWYER ATTESTATION I personally performed the ortega portions of the E/M visit, discussed case with resident and concur with resident documentation of history, physical exam, assessment, and treatment plan unless otherwise noted. Staff name: Arik Potter MD Date: 09/22/2018 * Justin Magdaleno MD - 09/22/2018 11:26 AM LAST SAWYER General Progress Note Name: Chelsea Castillo Today's Date: 09/22/2018 Admission Date: 09/17/2018 LOS: 4 days Assessment/Plan: Principal Problem: Abdominal pain Active Problems: Other dysphagia Other constipation Intractable cyclical vomiting with nausea Type 1 diabetes mellitus with complication (HCC) Dysthymia Anxiety Migraine with aura and with status migrainosus, not intractable Epigastric pain Chronic abdominal pain Orthostatic hypotension Acquired hypothyroidism LAD (lymphadenopathy), axillary a 58 y.o. female with PMHX of diabetes, anxiety, depression, hypothyroidism, migraine headaches, gastritis, cholecystectomy, thyroidectomy presenting with intractable abdominal pain and nausea/vomiting Updated today are bold/italics Abdominal Pain - chronic Dysphagia- subacute - associated with nausea and vomiting - history of 1 year long epigastric pain - multiple admissions and ED visits for similar complaints - polypharmacy at home and opioids administered with each visit for symptomatic management - CT on admission unremarkable apart from GI tract filled with contents from stomach to rectum even though patient reports no/minimal PO intake x3 days - labs remarkable for white cell count of 13 K, elevated glucose and mild anion gap of 13 - EGD in 2015 showing multiple gastric polyps that were biopsied (negatie for pathology or H Pylori per report) - per pt sister pt with progressive dysphagia since March - Repeat EGD and colonoscopy 09/20[Colonoscopy w normal terminal ileum/colonic mucosa, 5mm polyp removed | EGD w normal esophagus, diffuse gastric erythema/ random Bx and numerous gastric polyps removed] - Planned to undergo gastric emptying study once she is off of narcotics for a period of time to avoid false positive results. Can readdress next week - She does seem to have non specific lymphadenopathy found on CT chest ( axillary and illiac) and hence needs to get evaluated for causes including lymphoma/infection as well as known conditions such as mesenteric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 MG/DL POC GLUCOSE Collection Time: 09/19/18 3:51 PM Result Value Ref Range Glucose, POC 124 (H) 70 - 100 MG/DL POC GLUCOSE Collection Time: 09/19/18 5:51 PM Result Value Ref Range Glucose, POC 144 (H) 70 - 100 MG/DL POC GLUCOSE Collection Time: 09/19/18 8:14 PM Result Value Ref Range Glucose, POC 240 (H) 70 - 100 MG/DL POC GLUCOSE Collection Time: 09/19/18 10:00 PM Result Value Ref Range Glucose, POC 222 (H) 70 - 100 MG/DL POC GLUCOSE Collection Time: 09/20/18 12:05 AM Result Value Ref Range Glucose, POC 199 (H) 70 - 100 MG/DL POC GLUCOSE Collection Time: 09/20/18 2:24 AM Result Value Ref Range Glucose, POC 222 (H) 70 - 100 MG/DL CBC AND DIFF Collection Time: 09/20/18 3:10 AM Result Value Ref Range White Blood Cells 9.8 4.5 - 11.0 K/UL RBC 4.15 4.0 - 5.0 M/UL Hemoglobin 12.0 12.0 - 15.0 GM/DL Hematocrit 35.5 (L) 36 - 45 % MCV 85.5 80 - 100 FL MCH 28.8 26 - 34 PG MCHC 33.7 32.0 - 36.0 G/DL RDW 17.4 (H) 11 - 15 % Platelet Count 209 150 - 400 K/UL MPV 8.6 7 - 11 FL Neutrophils 34 (L) 41 - 77 % Lymphocytes 43 24 - 44 % Monocytes 7 4 - 12 % Eosinophils 15 (H) 0 - 5 % Basophils 1 0 - 2 % Absolute Neutrophil Count 3.30 1.8 - 7.0 K/UL Absolute Lymph Count 4.30 1.0 - 4.8 K/UL Absolute Monocyte Count 0.60 0 - 0.80 K/UL Absolute Eosinophil Count 1.50 (H) 0 - 0.45 K/UL Absolute Basophil Count 0.10 0 - 0.20 K/UL COMPREHENSIVE METABOLIC PANEL Collection Time: 09/20/18 3:10 AM Result Value Ref Range Sodium 135 (L) 137 - 147 MMOL/L Potassium 2.9 (L) 3.5 - 5.1 MMOL/L Chloride 101 98 - 110 MMOL/L Glucose 189 (H) 70 - 100 MG/DL Blood Urea Nitrogen 2 (L) 7 - 25 MG/DL Creatinine 0.60 0.4 - 1.00 MG/DL Calcium 8.3 (L) 8.5 - 10.6 MG/DL Total Protein 5.6 (L) 6.0 - 8.0 G/DL Total Bilirubin 0.4 0.3 - 1.2 MG/DL Albumin 3.6 3.5 - 5.0 G/DL Alk Phosphatase 53 25 - 110 U/L AST (SGOT) 24 7 - 40 U/L CO2 24 21 - 30 MMOL/L ALT (SGPT) 14 7 - 56 U/L Anion Gap 10 3 - 12 eGFR Non >60 >60 mL/min eGFR >60 >60 mL/min POC GLUCOSE Collection Time: 09/20/18 6:13 AM Result Value Ref Range Glucose, POC 169 (H) 70 - 100 MG/DL Point of Care Testing (Last 24 hours) Glucose: (!) 189 (09/20/18 0310) POC Glucose (Download): (!) 169 (09/20/18 0613) Radiology and other Diagnostics Review: Pertinent radiology reviewed. Associated attestation - Arik Potter MD - 09/20/2018 3:40 PM CDT ATTESTATION I personally performed the ortega portions of the E/M visit, discussed case with resident and concur with resident documentation of history, physical exam, assessment, and treatment plan unless otherwise noted. Staff name: Arik Potter MD Date: 09/20/2018 * Janelle Grey, BOX LINING MACHINE OPERATOR-SCRAP SAWYER - 09/19/2018 12:02 PM CDT Reporting she is anxious. Seems confused. BS was low this morning. "I don't feel well." with her. Asked her to think about what he might bring from home to help her feel less anxious. eg family photos etc. Janelle Grey [facility]- [id number] * Ivory Gonzalez MD - 09/19/2018 6:37 AM CDT General Progress Note Name: Chelsea Castillo Today's Date: 09/19/2018 Admission Date: 09/17/2018 LOS: 1 day Assessment/Plan: Principal Problem: Abdominal pain Active Problems: Other dysphagia Other constipation Intractable cyclical vomiting with nausea Type 1 diabetes mellitus with complication (HCC) Dysthymia Anxiety Migraine with aura and with status migrainosus, not intractable Epigastric pain Chronic abdominal pain Orthostatic hypotension Acquired hypothyroidism LAD (lymphadenopathy), axillary a 58 y.o. female with PMHX of diabetes, anxiety, depression, hypothyroidism, migraine headaches, gastritis, cholecystectomy, thyroidectomy presenting with intractable abdominal pain and nausea/vomiting Abdominal Pain - chronic Dysphagia- subacute - associated with nausea and vomiting - history of 1 year long epigastric pain - multiple admissions and ED visits for similar complaints - polypharmacy at home and opioids administered with each visit for symptomatic management - CT on admission unremarkable apart from GI tract filled with contents from stomach to rectum even though patient reports no/minimal PO intake x3 days - labs remarkable for white cell count of 13 K, elevated glucose and mild anion gap of 13 - EGD in 2016 showing multiple gastric polyps that were biopsied (negatie for pathology or H Pylori per report) PLAN - patient is currently established with GI and is planned to undergo gastric emptying study once she is off of narcotics for a period of time to avoid false positive results. Her symptoms seem to be progressive in nature and it seems like have a large component of slow bowels which seems to be resulting from uncontrolled DM II (A1c 11). On top of that with constant opioid administration (both in the ED with her each visit and home) she could have been developing a component of narcotic bowel syndrome. Her CT images are consistent with GI filled with stool. She does seem to have non specific lymphadenopathy found on CT chest (axillary and illiac) and hence needs to get evaluated for causes including lymphoma/ infection as well as known conditions such as mesenteric panniculitis that could be contributing to her abdominal symptoms. - will continue golytely -sister reports pt has had dysphagia with solids for ~5mo, will consult GI for possible EGD - PRN IV antiemetics for nausea and vomiting Fall-captain assistant Syncope associated with hypoglycemia while inpt -pt reports fall1-2 days captain assistant, no brusing -normal neuro exam - Echo pending -pt with hypoglycemia overnight, started on D5NS will cont to monitor bs q2hrs until lantus has cleared -will consult endo for brittle bs captain assistant as reported by sister Lymphadenopathy - CT scan showing evidence of external iliac LAD , 1.6 cm short axis lymph node noted - also has been found to have axillary LAD (left axillary lymph node 2.[address] 07/06) and had had talks to engage oncology as outpatient - Hematology consult, appreciate their assistance, will consult surgery for excisional biopsy peripheral smear - reports hx of pancreatic CA in family (mother) Diabetes Mellitus - uncontrolled and patient not able to articulate compliance - last A1c 07/06 11.4 - will repeat - reports episodes of hypoglycemia and hence not taking insulin compliantly - will have extension educator assist with education -unclear if syncope captain assistant related to hypoglycemia -will consult endo Hypothyroidism - TSH 6.140, free T4 1.0, - on captain assistant synthroid Depression - patient appears to have flat affect and get emotional easily during conversation - agreeable to getting psych eval - will have psych nurse assist with mood eval psychiatry team also consulted - depression is known to contribute to GI related symptoms which need to be addressed and treated especially in her case with her progressive cyclical GI symptoms -psychiatry consult assistance appreciated FEN - IVF with NS - monitor and replace electrolytes - ADAT PPx: SCDs . enoxaparin Code Status: Full Code Subjective Chelsea Victoria Issa Castillo is a 58 y.o. female. Patient reports abd pain slightly improved, pt denies dyspnea or batres. Pt unable to provide details of syncopal event overnight. Sister in room with pt, pt became extremely upset wiith discussion of sx. SIster reports she is easily overwhelmed by medical terms. Medications Scheduled Meds: carBAMazepine (TEGRETOL) tablet 400 mg 400 mg Oral QDAY duloxetine DR (CYMBALTA) capsule 60 mg 60 mg Oral BID enoxaparin (LOVENOX) syringe 40 mg 40 mg Subcutaneous QDAY(21) fludrocortisone (FLORINEF) tablet 0.3 mg 0.3 mg Oral QDAY insulin aspart U-100 (NOVOLOG FLEXPEN) injection PEN 0-7 Units 0-7 Units Subcutaneous ACHS levothyroxine (SYNTHROID) tablet 175 mcg 175 mcg Oral QDAY 30 min before breakfast potassium chloride in water IVPB 10 mEq 10 mEq Intravenous Q1H X 5DO potassium chloride SR (K-DUR) tablet 40 mEq 40 mEq Oral ONCE Continuous Infusions: dextrose 5 % & 0.9% NaCl infusion 1,000 mL (09/19/18 0442) sodium chloride 0.9 % infusion PRN and Respiratory Meds:ALPRAZolam BID PRN, ondansetron (ZOFRAN) IV Q6H PRN, zolpidem QHS PRN Objective: Vital Signs: Last Filed Vital Signs: 24 Hour Range BP: 141/61 (09/19 613) Temp: 36.7 C (98.1 F) (09/19 613) Pulse: 93 (09/19 613) Respirations: 16 PER MINUTE (09/19 040) SpO2: 100 % (09/19 613) O2 Delivery: None (Room Air) (09/19 613) Height: 165.1 cm (65") (09/18 1447) BP: (141-162)/(61-83) Temp: [36.6 C (97.9 F)-37 C (98.6 F)] Pulse: [84-96] Respirations: [16 PER MINUTE] SpO2: [99 %-100 %] O2 Delivery: None (Room Air) Intensity Pain Scale (Self Report): 7 (09/18/18 195) Vitals: 09/18/18 0112 09/18/18 1400 09/18/18 1447 Weight: 63.3 kg (139 lb 8.8 oz) 63.3 kg (139 lb 8.8 oz) 63 kg (139 lb) Intake/Output Summary: (Last 24 hours) Intake/Output Summary (Last 24 hours) at 09/19/18 0637 Last data filed at 10/31/18 2118 Gross per 24 hour Intake 880 ml Output 200 ml Net 680 ml Stool Occurrence: 1 Physical Exam General: Alert, cooperative, flat affect, easily emotional and tearful appears stated age Lungs: Clear to auscultation bilaterally Heart: Regular rate and rhythm, S1, S2 normal, no murmur, click rub or gallop Abdomen: Soft, mildly tender in the epigastric area. Bowel sounds normal. No masses. No organomegaly. Extremities: Extremities normal, atraumatic, no cyanosis or edema Peripheral pulses 2+ and symmetric, all extremities Lab Review 24-hour labs: Results for orders placed or performed during the hospital encounter of (from the past 24 hour(s)) POC GLUCOSE Collection Time: 09/18/18 9:55 AM Result Value Ref Range Glucose, POC 87 70 - 100 MG/DL POC GLUCOSE Collection Time: 09/18/18 1:43 PM Result Value Ref Range Glucose, POC 84 70 - 100 MG/DL POC GLUCOSE Collection Time: 09/18/18 7:53 PM Result Value Ref Range Glucose, POC 105 (H) 70 - 100 MG/DL POC GLUCOSE Collection Time: 09/19/18 3:36 AM Result Value Ref Range Glucose, POC 40 (LL) 70 - 100 MG/DL POC GLUCOSE Collection Time: 09/19/18 3:47 AM Result Value Ref Range Glucose, POC 236 (H) 70 - 100 MG/DL POC GLUCOSE Collection Time: 09/19/18 4:01 AM Result Value Ref Range Glucose, POC 188 (H) 70 - 100 MG/DL CBC AND DIFF Collection Time: 09/19/18 4:06 AM Result Value Ref Range White Blood Cells 7.4 4.5 - 11.0 K/UL RBC 3.79 (L) 4.0 - 5.0 M/UL Hemoglobin 11.0 (L) 12.0 - 15.0 GM/DL Hematocrit 32.9 (L) 36 - 45 % MCV 87.0 80 - 100 FL MCH 29.1 26 - 34 PG MCHC 33.5 32.0 - 36.0 G/DL RDW 17.2 (H) 11 - 15 % Platelet Count 183 150 - 400 K/UL MPV 8.6 7 - 11 FL Neutrophils 48 41 - 77 % Lymphocytes 37 24 - 44 % Monocytes 6 4 - 12 % Eosinophils 9 (H) 0 - 5 % Basophils 0 0 - 2 % Absolute Neutrophil Count 3.50 1.8 - 7.0 K/UL Absolute Lymph Count 2.80 1.0 - 4.8 K/UL Absolute Monocyte Count 0.50 0 - 0.80 K/UL Absolute Eosinophil Count 0.70 (H) 0 - 0.45 K/UL Absolute Basophil Count 0.00 0 - 0.20 K/UL COMPREHENSIVE METABOLIC PANEL Collection Time: 09/19/18 4:06 AM Result Value Ref Range Sodium 135 (L) 137 - 147 MMOL/L Potassium 2.7 (LL) 3.5 - 5.1 MMOL/L Chloride 99 98 - 110 MMOL/L Glucose 202 (H) 70 - 100 MG/DL Blood Urea Nitrogen 6 (L) 7 - 25 MG/DL Creatinine 0.57 0.4 - 1.00 MG/DL Calcium 7.7 (L) 8.5 - 10.6 MG/DL Total Protein 5.1 (L) 6.0 - 8.0 G/DL Total Bilirubin 0.3 0.3 - 1.2 MG/DL Albumin 3.3 (L) 3.5 - 5.0 G/DL Alk Phosphatase 49 25 - 110 U/L AST (SGOT) 22 7 - 40 U/L CO2 21 21 - 30 MMOL/L ALT (SGPT) 15 7 - 56 U/L Anion Gap 15 (H) 3 - 12 eGFR Non >60 >60 mL/min eGFR >60 >60 mL/min POC GLUCOSE Collection Time: 09/19/18 4:32 AM Result Value Ref Range Glucose, POC 168 (H) 70 - 100 MG/DL POC GLUCOSE Collection Time: 09/19/18 4:49 AM Result Value Ref Range Glucose, POC 140 (H) 70 - 100 MG/DL POC GLUCOSE Collection Time: 09/19/18 5:07 AM Result Value Ref Range Glucose, POC 123 (H) 70 - 100 MG/DL POC GLUCOSE Collection Time: 09/19/18 5:23 AM Result Value Ref Range Glucose, POC 128 (H) 70 - 100 MG/DL POC GLUCOSE Collection Time: 09/19/18 6:22 AM Result Value Ref Range Glucose, POC 130 (H) 70 - 100 MG/DL Point of Care Testing (Last 24 hours) Glucose: (!) 202 (09/19/18 323) POC Glucose (Download): (!) 130 (09/19/18 0622) Radiology and other Diagnostics Review: Pertinent radiology reviewed. Ivory Gonzalez MD Pager * Humaira Carvalho RN - 09/19/2018 3:36 AM CDT 0336: Pt with blood sugar of 40. 50 mL of D50% given. Pt became unresponsive, pupils fixed, and shaking. Vital signs stable. Rapid response team activated. 0347: Blood sugar 236. Pt alert and oriented x4. Vital signs stable. 0401: Dr. Swanson at bedside. Blood sugar 188. Discontinued NS 100 ml/hr and D5% & 0.9% NaCl at 75 ml/hr ordered. 0432: Blood sugar 168. Pt resting in bed but very anxious at this time. Vital signs stable. Will continue to monitor. * Humaira Carvalho RN - 09/18/2018 1:30 AM CDT Patient arrived to [place] [id number] via cart accompanied by transport. Patient transferred to the bed with assistance. Bedside safety checks completed. Initial patient assessment completed, refer to flowsheet for details. Skin Assessment Performed skin assessment with (SHAVON Vargas). Patient does not have pressure injury upon admission to unit. Pressure Injury is Stage 2 or greater: No Wound Team Consulted: Not applicable Please see doc flowsheet for further wound information. Fall Risk Assessment Admission fall risk assessment completed. Patient's Fall Risk: High Risk per Rivera Score or Clinical Judgment High Fall Risk Bundle Implemented: YES in this encounter H&P Notes * Kymberly Oneil MD - 09/26/2018 4:17 PM LAST SAWYER Pre Procedure History and Physical/Sedation Plan Name:Chelsea Castlilo :1960 Age: 58 y.o. Admission Date: 09/17/2018 Days Admitted: LOS: 8 days Procedure Date: 09/26/2018 Planned Procedure(s): GI: EGD Sedation/Medication Plan: MAC (Monitored Anesthesia Care) Discussion/Reviews: Physician has discussed risks and alternatives of this type of sedation and above planned procedures with patient Chief Complaint: Inpatient endo consult note reviewed. Previous Anesthetic/Sedation History: reviewed. Allergies: Sulfa (sulfonamide antibiotics) Medications: Scheduled Meds: carBAMazepine (TEGRETOL) tablet 400 mg 400 mg Oral QDAY [JAN Hold] duloxetine DR (CYMBALTA) capsule 60 mg 60 mg Oral BID [JAN Hold] electrolyte GUT PEG (NULYTELY, COLYTE, GAVILYTE-N) oral solution 4 L 4 L Oral As Prescribed [JAN Hold] fludrocortisone (FLORINEF) tablet 0.3 mg 0.3 mg Oral QDAY [JAN Hold] insulin aspart U-100 (NOVOLOG FLEXPEN) injection PEN 0-7 Units 0-7 Units Subcutaneous ACHS [JAN Hold] insulin aspart U-100 (NOVOLOG FLEXPEN) injection PEN 8 Units 8 Units Subcutaneous TID after meals [JAN Hold] insulin glargine (LANTUS SOLOSTAR, BASAGLAR) injection PEN 15 Units 15 Units Subcutaneous QHS [JAN Hold] levothyroxine (SYNTHROID) tablet 175 mcg 175 mcg Oral QDAY 30 min before breakfast [JAN Hold] sucralfate (CARAFATE) oral suspension 1 g/10ml Patient Own Med 1 g Oral ACHS Continuous Infusions: lactated ringers infusion 100 mL/hr at 09/26/18 1239 PRN and Respiratory Meds:[JAN Hold] acetaminophen Q6H PRN, [JAN Hold] acetaminophen/lidocaine/antacid DS(#) QID PRN, [JAN Hold] ALPRAZolam BID PRN, [ JAN Hold] electrolyte GUT PEG PRN (Staff Appraiser from Rx), [JAN Hold] fentaNYL citrate PF Q2H PRN, [JAN Hold] loperamide PRN, [JAN Hold] ondansetron (ZOFRAN) IV Q6H PRN, [JAN Hold] zolpidem QHS PRN Vital Signs: Last Filed Vital Signs: 24 Hour Range BP: 137/81 (09/26 1554) Temp: 36.8 C (98.2 F) (09/26 1554) Pulse: 85 (09/26 1600) Respirations: 21 PER MINUTE (09/26 1600) SpO2: 99 % (09/26 1600) O2 Delivery: None (Room Air) (09/26 1554) SpO2 Pulse: 85 (09/26 1600) BP: (133-162)/(60-91) Temp: [36.6 C (97.8 F)-37.1 C (98.7 F)] Pulse: [82-113] Respirations: [16 PER MINUTE-22 PER MINUTE] SpO2: [99 %-100 %] O2 Delivery: None (Room Air) NPO Status: Airway: airway assessment performed Mallampati II (soft palate, uvula, fauces visible) Anesthesia Classification: ASA III (A patient with a severe systemic disease that limits activity, but is not incapacitating) NPO Status: Acceptable Preganancy Status: Not Lab/Radiology/Other Diagnostic Tests Labs: 24-hour labs: Results for orders placed or performed during the hospital encounter of (from the past 24 hour(s)) POC GLUCOSE Collection Time: 09/25/18 5:29 PM Result Value Ref Range Glucose, POC 258 (H) 70 - 100 MG/DL POC GLUCOSE Collection Time: 09/25/18 9:18 PM Result Value Ref Range Glucose, POC 128 (H) 70 - 100 MG/DL CBC AND DIFF Collection Time: 09/26/18 4:00 AM Result Value Ref Range White Blood Cells 13.0 (H) 4.5 - 11.0 K/UL RBC 4.19 4.0 - 5.0 M/UL Hemoglobin 12.3 12.0 - 15.0 GM/DL Hematocrit 37.5 36 - 45 % MCV 89.4 80 - 100 FL MCH 29.3 26 - 34 PG MCHC 32.8 32.0 - 36.0 G/DL RDW 17.8 (H) 11 - 15 % Platelet Count 414 (H) 150 - 400 K/UL MPV 8.9 7 - 11 FL Neutrophils 28 (L) 41 - 77 % Lymphocytes 62 (H) 24 - 44 % Monocytes 5 4 - 12 % Eosinophils 4 0 - 5 % Basophils 1 0 - 2 % Absolute Neutrophil Count 3.70 1.8 - 7.0 K/UL Absolute Lymph Count 8.00 (H) 1.0 - 4.8 K/UL Absolute Monocyte Count 0.70 0 - 0.80 K/UL Absolute Eosinophil Count 0.50 (H) 0 - 0.45 K/UL Absolute Basophil Count 0.10 0 - 0.20 K/UL COMPREHENSIVE METABOLIC PANEL Collection Time: 09/26/18 4:00 AM Result Value Ref Range Sodium 138 137 - 147 MMOL/L Potassium 4.3 3.5 - 5.1 MMOL/L Chloride 103 98 - 110 MMOL/L Glucose 218 (H) 70 - 100 MG/DL Blood Urea Nitrogen 8 7 - 25 MG/DL Creatinine 0.76 0.4 - 1.00 MG/DL Calcium 8.9 8.5 - 10.6 MG/DL Total Protein 6.0 6.0 - 8.0 G/DL Total Bilirubin 0.3 0.3 - 1.2 MG/DL Albumin 3.8 3.5 - 5.0 G/DL Alk Phosphatase 54 25 - 110 U/L AST (SGOT) 13 7 - 40 U/L CO2 29 21 - 30 MMOL/L ALT (SGPT) 10 7 - 56 U/L Anion Gap 6 3 - 12 eGFR Non >60 >60 mL/min eGFR >60 >60 mL/min HEPATITIS B CORE AB TOT (IGG+IGM) Collection Time: 09/26/18 4:00 AM Result Value Ref Range Anti HBc Total NEG LDH-LACTATE DEHYDROGENASE Collection Time: 09/26/18 4:00 AM Result Value Ref Range Lactate Dehydrogenase 218 (H) 100 - 210 U/L URIC ACID Collection Time: 09/26/18 4:00 AM Result Value Ref Range Uric Acid <1.5 (L) 2.0 - 7.0 MG/DL IRON + BINDING CAPACITY + %SAT+ FERRITIN Collection Time: 09/26/18 4:00 AM Result Value Ref Range Iron 41 (L) 50 - 160 MCG/DL Iron Binding-TIBC 323 270 - 380 MCG/DL % Saturation 13 (L) 28 - 42 % Ferritin 22 10 - 200 NG/ML POC GLUCOSE Collection Time: 09/26/18 8:18 AM Result Value Ref Range Glucose, POC 228 (H) 70 - 100 MG/DL POC GLUCOSE Collection Time: 09/26/18 11:16 AM Result Value Ref Range Glucose, POC 164 (H) 70 - 100 MG/DL POC GLUCOSE Collection Time: 09/26/18 4:06 PM Result Value Ref Range Glucose, POC 185 (H) 70 - 100 MG/DL Kymberly Oneil MD Pager SAWYER * Gayle Fink, MSN,BOX LINING MACHINE OPERATOR - 09/24/2018 7:19 AM LAST SAWYER Pre Procedure History and Physical/Sedation Plan Procedure Date: 09/24/2018 Planned Procedure(s): Left axillary lymph node biopsy Indication for exam: Lymphadenopathy Chief Complaint: See above Previous Anesthetic/Sedation History: Patient denies adverse event. Allergies: Sulfa (sulfonamide antibiotics) Medications: Scheduled Meds: carBAMazepine (TEGRETOL) tablet 400 mg 400 mg Oral QDAY [JAN Hold] duloxetine DR (CYMBALTA) capsule 60 mg 60 mg Oral BID [JAN Hold] electrolyte GUT PEG (NULYTELY, COLYTE, GAVILYTE-N) oral solution 4 L 4 L Oral As Prescribed [JAN Hold] fludrocortisone (FLORINEF) tablet 0.3 mg 0.3 mg Oral QDAY [JAN Hold] insulin aspart U-100 (NOVOLOG FLEXPEN) injection PEN 0-7 Units 0-7 Units Subcutaneous ACHS [JAN Hold] insulin aspart U-100 (NOVOLOG FLEXPEN) injection PEN 5 Units 5 Units Subcutaneous TID w/ meals [JAN Hold] insulin glargine (LANTUS SOLOSTAR, BASAGLAR) injection PEN 13 Units 13 Units Subcutaneous QHS [JAN Hold] levothyroxine (SYNTHROID) tablet 175 mcg 175 mcg Oral QDAY 30 min before breakfast [JAN Hold] sucralfate (CARAFATE) oral suspension 1 g/10ml Patient Own Med 1 g Oral ACHS Continuous Infusions: PRN and Respiratory Meds:[JAN Hold] acetaminophen Q6H PRN, [JAN Hold] acetaminophen/lidocaine/antacid DS(#) QID PRN, [JAN Hold] ALPRAZolam BID PRN, [ JAN Hold] electrolyte GUT PEG PRN (Staff Appraiser from Rx), [JAN Hold] ondansetron ( ZOFRAN) IV Q6H PRN, [JAN Hold] zolpidem QHS PRN Vital Signs: Last Filed Vital Signs: 24 Hour Range BP: 150/72 (09/24 530) Temp: 36.9 C (98.4 F) (09/24 530) Pulse: 98 (09/24 530) Respirations: 18 PER MINUTE (09/24 530) SpO2: 100 % (09/24 530) O2 Delivery: None (Room Air) (09/24 530) BP: (133-153)/(71-85) Temp: [36.7 C (98 F)-36.9 C (98.4 F)] Pulse: [83-104] Respirations: [16 PER MINUTE-18 PER MINUTE] SpO2: [99 %-100 %] O2 Delivery: None (Room Air) Sedation/Medication Plan: Fentanyl and Midazolam Personal history of sedation complications: Denies adverse event. Family history of sedation complications: Denies adverse event. Medications for Reversal: Naloxone and Flumazenil Discussion/Reviews: Physician has discussed risks and alternatives of this type of sedation and above planned procedures with patient NPO Status: Acceptable Airway: airway assessment performed Mallampati III (soft palate, base of uvula visible) Head and Neck: no abnormalities noted Mouth: no abnormalities noted Anesthesia Classification: ASA III (A patient with a severe systemic disease that limits activity, but is not incapacitating) Status: Not Lab/Radiology/Other Diagnostic Tests Labs: Relevant labs reviewed I have examined the patient, and there are no significant changes in their condition, from the previous H&P performed on 09/20/18. Gayle Fink, MSN,BOX LINING MACHINE OPERATOR Pager [phone] SAWYER * Nicole Villasenor MD - 09/20/2018 2:47 PM CDT Pre Procedure History and Physical/Sedation Plan Name:Chelsea Castillo :1960 Age: 58 y.o. Date of Service: 09/20/18 Date of Procedure: 09/20/2018 Planned Procedure(s): GI: EGD and Colonoscopy Sedation/Medication Plan: MAC (Monitored Anesthesia Care) Discussion/Reviews: Physician has discussed risks and alternatives of this type of sedation and above planned procedures with patient Chief Complaint: Chelsea Castillo is a 58 y.o. female with history of hypothyroidism, diabetes mellitus type 1, migraine headache, polypharmacy, hx of TBI, anxiety, depression, chronic abdominal pain with nausea and vomiting, who presented to the emergency room with complaint of nausea and vomiting along with abdominal pain History of Present Illness: Chelsea Castillo is a 58 y.o. female as above Previous Anesthetic/Sedation History: Yes Past Medical History: Diagnosis Date Arthritis Diabetes mellitus type 1 (HCC) Osteoporosis Stomach problems Thyroid disorder Past Surgical History: Procedure Laterality Date GALLBLADDER SURGERY 1989 HX HYSTERECTOMY 12/2001 EYE SURGERY 07/2005 laser eye rietina, eyes were bleeding behind them. CARPAL TUNNEL RELEASE Right 08/2012 right hand HAND SURGERY 09/2013 HERNIA REPAIR 03/2014 ESOPHAGUS SURGERY 03/2014 Esophageal ulcers and healing Pertinent medical/surgical history reviewed Pertinent family history reviewed Social History Substance Use Topics Smoking status: Never Smoker Smokeless tobacco: Never Used Alcohol use No History Drug use: Unknown Allergies: Sulfa (sulfonamide antibiotics) Medications Current Facility-Administered Medications Medication [MAR Hold] ALPRAZolam (XANAX) tablet 0.5 mg carBAMazepine (TEGRETOL) tablet 400 mg dextrose 5 % & 0.9% NaCl infusion [MAR Hold] duloxetine DR (CYMBALTA) capsule 60 mg [MAR Hold] electrolyte GUT PEG (NULYTELY, COLYTE, GAVILYTE-N) oral solution 2 L [MAR Hold] electrolyte GUT PEG (NULYTELY, COLYTE, GAVILYTE-N) oral solution 4 L [MAR Hold] enoxaparin (LOVENOX) syringe 40 mg [MAR Hold] fludrocortisone (FLORINEF) tablet 0.3 mg [JAN Hold] insulin aspart U-100 (NOVOLOG FLEXPEN) injection PEN 0-7 Units [JAN Hold] insulin glargine (LANTUS SOLOSTAR, BASAGLAR) injection PEN 14 Units lactated ringers infusion [JAN Hold] levothyroxine (SYNTHROID) tablet 175 mcg [JAN Hold] ondansetron (ZOFRAN) injection 4 mg [JAN Hold] zolpidem (AMBIEN) tablet 5 mg Review of Systems: A 14 point review of systems was negative except for: HPI Physical Exam: Temp: 36.8 C (98.2 F) (09/20 1429) Pulse: 82 (09/20 1429) Respirations: 18 PER MINUTE (09/20 1429) BP: 170/81 (09/20 1429) General - Alert and oriented, no acute distress. Head - Normocephalic, atraumatic. Eyes - EOMI grossly. No icterus or injection. Oropharynx- No ulcer or bleeding, moist mucosa. Neck - No swelling or tracheal deviation. Pulmonary/Chest - Normal effort, normal breath sounds. CV - Normal rate, regular rhythm, normal heart sounds and intact distal pulses. Abd - ND, soft, Non-TTP. No hepatospenomegaly. Normal bowel sounds. No masses palpable. Extremities - Warm, dry. Skin - No exposed rash, lesion. Neurological - AAOx4, No gross deficit @ Airway: per anesthesia Anesthesia Classification: Per Anesthesia NPO Status: Yes Status: Not Lab/Radiology/Other Diagnostic Tests Labs: Hematology: Lab Results Component Value Date HGB 12.0 09/20/2018 HCT 35.5 09/20/2018 PLTCT 209 09/20/2018 WBC 9.8 09/20/2018 NEUT 34 09/20/2018 ANC 3.30 09/20/2018 ALC 4.30 09/20/2018 RBC 4.15 09/20/2018 EVELYN 7 09/20/2018 AMC 0.60 09/20/2018 EOSA 15 09/20/2018 ABC 0.10 09/20/2018 MCV 85.5 09/20/2018 MCH 28.8 09/20/2018 MCHC 33.7 09/20/2018 MPV 8.6 09/20/2018 RDW 17.4 09/20/2018 , Coagulation: No results found for: PT, PTT, INR and General Chemistry: Lab Results Component Value Date NA 135 09/20/2018 K 2.9 09/20/2018 CL 101 09/20/2018 CO2 24 09/20/2018 GAP 10 09/20/2018 BUN 2 09/20/2018 CR 0.60 09/20/2018 GLU 189 09/20/2018 CA 8.3 09/20/2018 ALBUMIN 3.6 09/20/2018 MG 1.9 09/18/2018 TOTBILI 0.4 09/20/2018 Nicole Villasenor MD Pager * Ivory Gonzalez MD - 09/18/2018 12:07 AM CDT Admission History and Physical Examination Name: Chelsea Castillo Admission Date: 09/17/2018 Assessment/Plan: Principal Problem: Abdominal pain Active Problems: Other dysphagia Other constipation Intractable cyclical vomiting with nausea Type 1 diabetes mellitus with complication (HCC) Dysthymia Anxiety Migraine with aura and with status migrainosus, not intractable Epigastric pain Chronic abdominal pain Orthostatic hypotension Acquired hypothyroidism LAD (lymphadenopathy), axillary Chelsea Castillo is a 58 y.o. female with PMHX of diabetes, anxiety, depression, hypothyroidism, migraine headaches, gastritis, cholecystectomy, thyroidectomy presenting with intractable abdominal pain and nausea/vomiting Abdominal Pain - chronic - associated with nausea and vomiting - history of 1 year long epigastric pain - multiple admissions and ED visits for similar complaints - polypharmacy at home and opioids administered with each visit for symptomatic management - CT on admission unremarkable apart from GI tract filled with contents from stomach to rectum even though patient reports no/minimal PO intake x3 days - labs remarkable for white cell count of 13 K, elevated glucose and mild anion gap of 13 - EGD in 2016 showing multiple gastric polyps that were biopsied (negatie for pathology or H Pylori per report) PLAN - patient is currently established with GI and is planned to undergo gastric emptying study once she is off of narcotics for a period of time to avoid false positive results. Her symptoms seem to be progressive in nature and it seems like have a large component of slow bowels which seems to be resulting from uncontrolled DM II (A1c 11). On top of that with constant opioid administration (both in the ED with her each visit and home) she could have been developing a component of narcotic bowel syndrome. Her CT images are consistent with GI filled with stool. She does seem to have non specific lymphadenopathy found on CT chest (axillary and illiac) and hence needs to get evaluated for causes including lymphoma/ infection as well as known conditions such as mesenteric panniculitis that could be contributing to her abdominal symptoms. - will plan on scheduling enemas to relieve the pressure and should anticipate improvement in her symptoms - need to optimized glucose control and diabetes , will have diabetes nurse educator see the patient - can engage GI if needed during this admission after appropriate decompression of her bowels with enemas, if symptoms don't improve. She might benefit from a colonoscopy as well given her LAD and GI symptoms - PRN IV antiemetics for nausea and vomiting Fall -pt reports fall1-2 days captain assistant, no brusing -normal neuro exam -will monitor on tele and check ECHO -will contact sister for details pt cannot provide any at this time Lymphadenopathy - CT scan showing evidence of external iliac LAD , 1.6 cm short axis lymph node noted - also has been found to have axillary LAD (left axillary lymph node 2.[address] 07/06) and had had talks to engage oncology as outpatient - will consult onc team to comment on the axillary and external iliac nodes and whether there is any association with her progressive abdominal sypmtoms ( lymphoma vs mesenteric panniculitis ?) consult change to heme - will obtain peripheral smear - reports hx of pancreatic CA in family (mother) Diabetes Mellitus - uncontrolled and patient not able to articulate compliance - last A1c 07/06 11.4 - will repeat - reports episodes of hypoglycemia and hence not taking insulin compliantly - will have extension educator assist with education - will place on sliding scale and continue [employer]PERATOR long acting while monitoring glucose to optimize regimen Hypothyroidism - check TSH - on captain assistant synthroid - restart once able to tolerate PO Depression - patient appears to have flat affect and get emotional easily during conversation - agreeable to getting psych eval - will have psych nurse assist with mood eval psychiatry team also consulted - depression is known to contribute to GI related symptoms which need to be addressed and treated especially in her case with her progressive cyclical GI symptoms FEN - IVF with NS - monitor and replace electrolytes - ADAT PPx: SCDs . enoxaparin Code Status: Full Code Dispo: Admit to medicine for management of progressive abdominal pain Pt seen at ~2pm, additions updates as noted in blue font __ Primary Care Physician: Sandra Wayne Verified Chief Complaint: Abdominal Pain , nausea and vomiting History of Present Illness: Chelsea Castillo is a 58 y.o. female with PMHX of diabetes, anxiety, depression, hypothyroidism, migraine headaches, gastritis , cholecystectomy, thyroidectomy presenting with intractable abdominal pain and nausea/vomiting. Patient is accompanied with her sister and . They live in [facility] and patient is currently on disability for the past 20 years. She used to work at a [employer] before that. During my encounter with the patient, she appears to have a flat affect and has her sister and provide most of the history constantly. Patient gets easily emotional and tearful during the conversation when asked about her condition and symptoms. Overall, she reports that she first started to have GI related symptoms earlier this year when it stared with epigastric discomfort once or twice a month that then progressed to become more and more frequent. She reports that she has been to several hospitals and EDs for her epigastric pain and has tried several polypharmacy meds including opioids for pain management. She describes her pain mostly epigastric in nature, constant, sharp , mostly 10/10 not relieved by anything and going on for weeks at times these days. She also reports associated nausea and vomiting along with it. She denies any hx of viral gastroenteritis prior to her symptoms. She denies alcohol use, tobacco use or illicit drug use. She reports that she especially has a hard time with solid feeds however able to tolerate fluid to some extent. She reports throwing up not long after any form of intake that has progressed since last few weeks prompting several ED visits. Her sister called patient's PCP and was advised to visit the ED and possibly get admitted for a full workup and appropriate management of her symptoms. A CT scan on arrival shows moderate gastric contents and intestines/colon filled with solid stool. She reports that her last BM was earlier today however like "corns and pellets " and felt inadequate. She denies any diarrhea. Past Medical History: Diagnosis Date Arthritis Diabetes [...] (sulfonamide antibiotics) Medications: Current Facility-Administered Medications Medication morphine injection syringe 4 mg Current Outpatient Prescriptions Medication Sig acetaminophen/lidocaine/antacid DS(#) (GI COCKTAIL) 1:1:3 Take 30 [...] capsule Take three capsules by mouth daily. electrolyte GUT PEG (NULYTELY, COLYTE, GAVILYTE-N) 420 gram oral solution Mix as directed on package. Drink 240ml (8oz) every 10 minutes until gone. Refrigerate once mixed. estrogens, conjugated(+) (PREMARIN) 0.625 mg/g vaginal cream [...] as needed for Sleep. Review of Systems: Constitutional: negative for fevers, chills or headaches Eyes: negative for double or blurry vision Ears, nose, mouth, throat, and face: negative Respiratory: negative for shortness of breath, cough or wheezing Cardiovascular: negative for chest pain, palpitations Gastrointestinal: reports nausea, vomiting and abdominal pain, denies diarrhea Genitourinary:negative for polyuria/dysuria Musculoskeletal:denies swelling or joint pain Neurological: negative for sensory or motor deficits Behavioral/Psych: negative for mood changes Physical Exam: Vital Signs: Last Filed In 24 Hours Vital Signs: 24 Hour Range BP: 171/83 (09/17 2230) Temp: 36.8 C (98.3 F) (09/17 1818) Pulse: 88 (09/17 2230) Respirations: 31 PER MINUTE (09/17 2230) SpO2: 99 % (09/17 2230) O2 Delivery: None (Room Air) (09/17 1818) SpO2 Pulse: 88 (09/17 2230) BP: (139-171)/(81-106) Temp: [36.8 C (98.3 F)] Pulse: [82-88] Respirations: [13 PER MINUTE-38 PER MINUTE] SpO2: [97 %-99 %] O2 Delivery: None (Room Air) Intensity Pain Scale (Self Report): 9 (09/17/182238) General: Alert, cooperative, flat affect, easily emotional and tearful appears stated age Head: Normocephalic, without obvious abnormality, atraumatic Eyes: Conjunctivae/corneas clear. PERRL, EOMs intact. Neck: Supple, symmetrical, trachea midline, no adenopathy, thyroid: no enlargement/tenderness/nodules, no carotid bruit and no JVD Lungs: Clear to auscultation bilaterally Heart: Regular rate and rhythm, S1, S2 normal, no murmur, click rub or gallop Abdomen: Soft, mildly tender in the epigastric area. Bowel sounds normal. No masses. No organomegaly. Extremities: Extremities normal, atraumatic, no cyanosis or edema Peripheral pulses 2+ and symmetric, all extremities Lymph nodes: Cervical, supraclavicular and axillary nodes normal Neurologic: No sensory or motor deficits Lab/Radiology/Other Diagnostic Tests: 24-hour labs: Results for orders placed or performed during the hospital encounter of (from the past 24 hour(s)) POC GLUCOSE Collection Time: 09/17/18 6:49 PM Result Value Ref Range Glucose, POC 218 (H) 70 - 100 MG/DL URINALYSIS DIPSTICK Collection Time: 09/17/18 8:30 PM Result Value Ref Range Color,UA YELLOW Turbidity,UA 1+ (A) CLEAR-CLEAR Specific [employer]-Urine 1.021 1.003 - 1.035 pH,UA 5.0 5.0 - 8.0 Protein,UA 1+ (A) NEG-NEG Glucose,UA 1+ (A) NEG-NEG Ketones,UA 2+ (A) NEG-NEG Bilirubin,UA NEG NEG-NEG Blood,UA NEG NEG-NEG Urobilinogen,UA NORMAL NORM-NORMAL Nitrite,UA NEG NEG-NEG Leukocytes,UA TRACE (A) NEG-NEG Urine Ascorbic Acid, UA NEG NEG-NEG URINALYSIS, MICROSCOPIC Collection Time: 09/17/18 8:30 PM Result Value Ref Range WBCs,UA 2-10 0 - 2 /HPF RBCs,UA 0-2 0 - 3 /HPF MucousUA TRACE Bacteria,UA MODERATE (A) NEG-NEG Squamous Epithelial Cells 5-10 0 - 5 CBC AND DIFF Collection Time: 09/17/18 9:39 PM Result Value Ref Range White Blood Cells 13.2 (H) 4.5 - 11.0 K/UL RBC 4.26 4.0 - 5.0 M/UL Hemoglobin 12.3 12.0 - 15.0 GM/DL Hematocrit 36.6 36 - 45 % MCV 86.0 80 - 100 FL MCH 28.9 26 - 34 PG MCHC 33.6 32.0 - 36.0 G/DL RDW 18.3 (H) 11 - 15 % Platelet Count 204 150 - 400 K/UL MPV 8.6 7 - 11 FL Neutrophils 43 41 - 77 % Lymphocytes 40 24 - 44 % Monocytes 8 4 - 12 % Eosinophils 9 (H) 0 - 5 % Basophils 0 0 - 2 % Absolute Neutrophil Count 5.70 1.8 - 7.0 K/UL Absolute Lymph Count 5.30 (H) 1.0 - 4.8 K/UL Absolute Monocyte Count 1.10 (H) 0 - 0.80 K/UL Absolute Eosinophil Count 1.20 (H) 0 - 0.45 K/UL Absolute Basophil Count 0.00 0 - 0.20 K/UL COMPREHENSIVE METABOLIC PANEL Collection Time: 09/17/18 9:39 PM Result Value Ref Range Sodium 138 137 - 147 MMOL/L Potassium 3.2 (L) 3.5 - 5.1 MMOL/L Chloride 99 98 - 110 MMOL/L Glucose 230 (H) 70 - 100 MG/DL Blood Urea Nitrogen 17 7 - 25 MG/DL Creatinine 0.86 0.4 - 1.00 MG/DL Calcium 9.0 8.5 - 10.6 MG/DL Total Protein 5.9 (L) 6.0 - 8.0 G/DL Total Bilirubin 0.4 0.3 - 1.2 MG/DL Albumin 3.8 3.5 - 5.0 G/DL Alk Phosphatase 54 25 - 110 U/L AST (SGOT) 20 7 - 40 U/L CO2 26 21 - 30 MMOL/L ALT (SGPT) 12 7 - 56 U/L Anion Gap 13 (H) 3 - 12 eGFR Non >60 >60 mL/min eGFR >60 >60 mL/min LIPASE Collection Time: 09/17/18 9:39 PM Result Value Ref Range Lipase 7 (L) 11 - 82 U/L BETA HYDROXYBUTYRATE (KETONES) Collection Time: 09/17/18 9:39 PM Result Value Ref Range Beta Hydroxybutyrate 2.7 (H) <0.3 MMOL/L BLOOD GASES, PERIPHERAL VENOUS Collection Time: 09/17/18 9:39 PM Result Value Ref Range pH-Venous 7.49 (H) 7.30 - 7.40 PCO2-Venous 37 36 - 50 MMHG PO2-Venous 47 33 - 48 MMHG Base Excess-Venous 4.7 MMOL/L O2 Sat-Venous 82.6 (H) 55 - 71 % [id number] 28.3 MMOL/L Glucose: (!) 230 (09/17/182138) POC Glucose (Download): (!) 218 (09/17/181848) Urine : Negative (09/17/182134) Pertinent radiology reviewed. [facility] [phone] in this encounter Procedure Notes * Charles Freeman MD - 09/20/2018 3:14 PM CDT Procedure(s): EGD REPORT; COLONOSCOPY EGD Esophagus: normal, GEJ at 36; random biopsies obtained. Stomach: diffuse erythema, numerous small gastric polyps, biopsies obtained. Duodenum: normal, biopsies obtained. Colonoscopy Preparation was only fair. Normal terminal ileal and colonic mucosa. 5 mm transverse polyp removed with cold snare. Recommendations: 1. Await pathology 2. GI consults following; please see consult note from today for additional recommendations. in this encounter Consult Notes * Krysten Lagos MD - 09/19/2018 3:38 PM CDT Associated Order(s): CONSULT ACUTE CARE/INPATIENT GENERAL SURGERY PHYSICIAN Acute Care Surgery Consult Patient: Chelsea Castillo, [id number] Admission Date: 09/17/2018, LOS: 1 day Admission Diagnosis: Abdominal pain [R10.9] Date of Service: September 19, 2018 CONSULT ACUTE CARE/INPATIENT GENERAL SURGERY PHYSICIAN Consult performed by: KRYSTEN LAGOS Consult ordered by: IVORY GONZALEZ ASSESSMENT: 58 y.o. female with h/o hypothyroidism, DM, gastritis, anxiety, chronic abdominal pain with nausea and vomitting now with lymphadenopathy on CT PLAN: - L external iliac lymph node non palpable, an excisional biopsy in this region is a surgery with very high complication risks and very invasive - Would recommend IR biopsy Discussed plan of care with staff surgeon, Dr. Thao, who directed plan of care HPI: Chelsea Castillo is a 58 y.o. female w/ h/o hypothyroidism, DM, gastritis, anxiety, chronic abdominal pain with nausea and vomitting who si admitted for abdominal pain with n/v. On CT she was found to have nonspecific lymphadenopathy in L axilla, and L external iliac artery Past Medical History: Diagnosis Date Arthritis Diabetes [...] Hx Ulcerative Colitis Neg Hx Social History Substance Use Topics Smoking status: Never Smoker Smokeless tobacco: Never Used Alcohol use No Your Current Medications: Instructions ALPRAZolam (XANAX) 1 mg tablet Take 1 [...] DIAGNOSTIC KIT IJ) Inject 1 Units to area( s) as directed as Needed. HYDROcodone/acetaminophen(+) (NORCO) 10/325 [...] 1 mg by mouth four times daily. magnesium oxide (MAG-OX) 400 mg tablet Take [...] bedtime as needed for Sleep. Review of Systems Constitutional: Positive for malaise/fatigue. Negative for fever. HENT: Negative for hearing loss. Respiratory: Negative for cough and hemoptysis. Cardiovascular: Negative for chest pain and palpitations. Gastrointestinal: Positive for abdominal pain, nausea and vomiting. Negative for constipation and diarrhea. Genitourinary: Negative for dysuria and urgency. Skin: Negative for rash. Neurological: Negative for dizziness and headaches. BP: (141-164)/(61-87) Temp: [36.6 C (97.9 F)-37 C (98.6 F)] Pulse: [84-96] Respirations: [14 PER MINUTE-16 PER MINUTE] SpO2: [99 %-100 %] O2 Delivery: None (Room Air) Physical Exam Constitutional: She is oriented to person, place, and time. She appears well- developed and well-nourished. HENT: Head: Normocephalic and atraumatic. Eyes: Pupils are equal, round, and reactive to light. EOM are normal. Neck: Normal range of motion. Cardiovascular: Normal rate. Pulmonary/Chest: Effort normal. Abdominal: Soft. Lymphadenopathy: Right: No inguinal and no supraclavicular adenopathy present. Left: No inguinal and no supraclavicular adenopathy present. Neurological: She is alert and oriented to person, place, and time. Skin: Skin is warm and dry. She is not diaphoretic. Lab/Radiology/Other Diagnostic Tests: BP: (141-164)/(61-87) Temp: [36.6 C (97.9 F)-37 C (98.6 F)] Pulse: [84-96] Respirations: [14 PER MINUTE-16 PER MINUTE] SpO2: [99 %-100 %] O2 Delivery: None (Room Air) Lab Results Component Value Date/Time NA 135 (L) 09/19/2018 04:06 AM K 2.7 (LL) 09/19/2018 04:06 AM CL 99 09/19/2018 04:06 AM CO2 21 09/19/2018 04:06 AM BUN 6 (L) 09/19/2018 04:06 AM CR 0.57 09/19/2018 04:06 AM MG 1.9 09/18/2018 01:43 AM PO4 3.7 09/18/2018 01:43 AM Lab Results Component Value Date/Time HGB 11.0 (L) 09/19/2018 04:06 AM HCT 32.9 (L) 09/19/2018 04:06 AM WBC 7.4 09/19/2018 04:06 AM PLTCT 183 09/19/2018 04:06 AM Lab Results Component Value Date/Time GLUPOC 131 (H) 09/19/2018 01:49 PM GLUPOC 119 (H) 09/19/2018 11:52 AM GLUPOC 114 (H) 09/19/2018 10:[address] NECK W/CONTRAST Final Result 1. Mild submental, bilateral submandibular, left level 2A, and bilateral subpectoral and axillary lymphadenopathy, which is of indeterminate reactive or malignant etiology. 2. Atrophic hypodense thyroid tissue. Approved by Efrain Bonilla D.O. on 09/19/2018 10:01 AM By my electronic signature, I attest that I have personally reviewed the images for this examination and formulated the interpretations and opinions expressed in this report Finalized by Vinicio Dawson M.D. on 09/19/2018 11:52 AM. Dictated by Efrain Bonilla D.O. on 09/19/2018 8:[address] CHEST W CONTRAST Final Result 1. Decreased to stable enlarged bilateral axillary and subpectoral lymph nodes. No new or enlarging thoracic lymphadenopathy. Differential considerations are unchanged and would include collagen vascular disease, certain infection such as mononucleosis or lymphoproliferative disorder such as lymphoma or CLL. 2. Unchanged tiny soft tissue nodule along the lateral aspect of the left breast. Diagnostic mammography is recommended for further characterization if not already performed. 3. Unchanged tiny bilateral pulmonary nodules. In a low-risk patient, no follow- up of these nodules is required. In a high-risk patient, optional follow-up CT chest could be obtained in 12 months to evaluate for stability. By my electronic signature, I attest that I have personally reviewed the images for this examination and formulated the interpretations and opinions expressed in this report Finalized by Isrrael Arce M.D. on 09/19/2018 9:35 AM. Dictated by Nae Dickey M.D. on 09/19/2018 8:02 AM. 2-D + DOPPLER ECHOCARDIOGRAM Final Result Krysten Lagos MD Team Pager: [phone] Associated attestation - Anju Thao MD - 11/03/2018 8:35 PM LAST SAWYER I personally performed the ortega portions of the E/M visit, discussed case with resident and concur with resident documentation of history, physical exam, assessment, and treatment plan unless otherwise noted. I personally reviewed the vitals, labs, ins/outs, images, physical exam, and A/P from other providers as appropriate. Percutaneous IR core needle biopsy is safest approach to lymph node in iliac chain. If unable to obtain tissue diagnosis, please call us back and we are happy to assist with open biopsy as long as all parties are on board and understand the risk benefits and alternatives. Anju Thao MD Trauma, Critical Care, and Acute Care Surgery Pager [phone] * Chiki Abbott - 09/19/2018 2:33 PM CDT Associated Order(s): CONSULT GASTROENTEROLOGY PHYSICIAN Gastroenterology Consult Note Patient Name:Chelsea Castillo Admission Date: 09/17/2018 7:53 PM Principal Problem: Abdominal pain Active Problems: Other dysphagia Other constipation Intractable cyclical vomiting with nausea Type 1 diabetes mellitus with complication (HCC) Dysthymia Anxiety Migraine with aura and with status migrainosus, not intractable Epigastric pain Chronic abdominal pain Orthostatic hypotension Acquired hypothyroidism LAD (lymphadenopathy), axillary Reason for consult: Dysphagia, N/V, abdominal pain Assessment: Chelsea Castillo is a 58 y.o. female with history of hypothyroidism, diabetes mellitus type 1, migraine headache, polypharmacy, hx of TBI, anxiety, depression, chronic abdominal pain with nausea and vomiting, who presented to the emergency room with complaint of nausea and vomiting along with abdominal pain. # dysphagia # weight loss # chronic abdominal pain, epigastric, especially post-prandial # Chronic nausea, occasional vomiting # Chronic opioid use # ZHAO # Axillary/iliac LAD DDx: gastroparesis, esophageal dysmotility, PUD, GERD, malignancy, SIBO, narcotic-induced hypomotility, constipation - EGD and GES in the past has been non-conclusive, we do not have the records of the GES, and she was supposed to undergo repeat gastric emptying study, however, was on narcotics and developed her currently worsened symptoms and was not able to have the study - given her weight loss, LAD and symptoms of constipation it is also important to rule out possible CRC Recommendations: - check KUB - minimize opioid use - prep for colonoscopy tomorrow with split bowel prep starting today - CLD today, NPO pMN - EGD tomorrow as well for dysphagia - can consider gastric emptying study at a later time, since tomorrow pt will be given anesthesia Patient discussed with attending on service, Dr. Stapleton, and will be staffed with Dr. Freeman tomorrow. Chiki Abbott MD Gastroenterology & Hepatology Fellow Pager [phone] HPI/Subjective: Chelsea Castillo is a 58 y.o. female with history of hypothyroidism, diabetes mellitus type 1 (43+ years), anxiety, hx of TBI, depression, chronic abdominal pain with nausea and vomiting, who presented to the emergency room with complaint of nausea and vomiting along with abdominal pain. We were moreover consulted for dysphagia as well. She has had chronic abdominal pain, N/V for years and has been recently evaluated in the GI clinic by Dr. Kirk, who would like to repeat a GES (even if on opioids). Her abdominal pain is epigastric, crampy in nature, a/w reflux, non-radiating and she has not identified any other alleviating factors other than hydrocodone. She reports the pain is occasionally worse after food intake. She also has been c/o dysphagia to solids which has been worsening over the past 4-5 months. She denies any dysphagia to liquids. She denies any episodes of food impaction. She also reports BMs q 2-3 days, occasionally experiences diarrhea, denies any melena, hematochezia. She has also been experiencing about 10-15 lbs weight loss within the last 6 months (per ) and has fatigue and nocturnal sweats, occasionally drenched in sweat. She reports mother with pancreatic cancer, and maternal grandmother with breast cancer. She denies any NSAID use, PPI use. Last colonoscopy 6 years ago at age 52, but do not have records and per patient was unremarkable. EGD 12/2015: normal esophagus, patchy erythema in proximal and mid stomach, biopsied, multiple prox and mid-gastric polyps, biopsied. Histo showed fundic gland polyp, neg H. Pylori. PMH: Past Medical History: Diagnosis Date Arthritis Diabetes mellitus type 1 (HCC) Osteoporosis Stomach problems Thyroid disorder Current medications: No current facility-administered medications on file prior to encounter. Current Outpatient Prescriptions on File Prior to Encounter Medication Sig Dispense Refill ALPRAZolam (XANAX) 1 mg tablet Take 1 [...] and lunch, and 10 units with dinner. 45 mL 0 levocarnitine(+) (LEVOCARNITINE(+)) 500 mg tablet Take four tablets by mouth twice daily. 240 tablet 1 levothyroxine (SYNTHROID) 175 mcg tablet Take 175 mcg by mouth daily 30 minutes before breakfast. lidocaine/prilocaine (EMLA) 2.5/2.5 % topical cream Apply topically to affected area as Needed. LORazepam (ATIVAN) 1 mg tablet Take 1 mg by mouth four times daily. magnesium oxide (MAG-OX) 400 mg tablet Take one tablet by mouth daily. 180 tablet 3 montelukast (SINGULAIR) 10 mg tablet Take 10 [...] as needed for Nausea. 30 each 0 rizatriptan (MAXALT) 10 mg tablet Take 10 [...] mouth at bedtime as needed for Sleep. Past Surgical History: Procedure Laterality Date GALLBLADDER SURGERY 1989 HX HYSTERECTOMY 12/2001 EYE SURGERY 07/2005 laser eye rietina, eyes were bleeding behind them. 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 Oropharynx: No lesion, ulcer. Neck: No pain or decreased ROM. Pulm: No dyspnea, cough. CV: No palpitations, no chest pain. Abdomen: No abdominal pain, brown stool, no changes in bowel habits. Extremities: No swelling, no deformity. Heme: No for easy bleeding or bruising. Neuro: No lightheadedness/dizziness, no LOC. Skin: No rashes, no jaundice. Please see HPI for additional pertinent documentation Physical Exam: Vitals: 09/19/18 0409 09/19/18 0613 09/19/18 0908 09/19/18 1340 BP: 148/82 141/61 156/66 164/87 Pulse: 96 93 84 90 Temp: 36.7 C (98.1 F) 36.8 C (98.2 F) 36.7 C (98.1 F) SpO2: 99% 100% 100% 100% Weight: Height: General - Alert and oriented, no acute distress. Head - Normocephalic, atraumatic. Eyes - EOMI grossly. No icterus or injection. Oropharynx- No ulcer or bleeding, moist mucosa. Neck - No swelling or tracheal deviation. Pulmonary/Chest - Normal effort, normal breath sounds. CV - Normal rate, regular rhythm, normal heart sounds and intact distal pulses. Abd - ND, soft, Non-TTP. No hepatospenomegaly. Normal bowel sounds. No masses palpable. Extremities - Warm, dry. Skin - No exposed rash, lesion. Neurological - AAOx4, No gross deficit Labs/Imaging: Pertient labs/imaging was reviewed on initiation of progress note. 24-hour labs: Results for orders placed or performed during the hospital encounter of (from the past 24 hour(s)) POC GLUCOSE Collection Time: 09/18/18 7:53 PM Result Value Ref Range Glucose, POC 105 (H) 70 - 100 MG/DL POC GLUCOSE Collection Time: 09/19/18 3:36 AM Result Value Ref Range Glucose, POC 40 (LL) 70 - 100 MG/DL POC GLUCOSE Collection Time: 09/19/18 3:47 AM Result Value Ref Range Glucose, POC 236 (H) 70 - 100 MG/DL POC GLUCOSE Collection Time: 09/19/18 4:01 AM Result Value Ref Range Glucose, POC 188 (H) 70 - 100 MG/DL CBC AND DIFF Collection Time: 09/19/18 4:06 AM Result Value Ref Range White Blood Cells 7.4 4.5 - 11.0 K/UL RBC 3.79 (L) 4.0 - 5.0 M/UL Hemoglobin 11.0 (L) 12.0 - 15.0 GM/DL Hematocrit 32.9 (L) 36 - 45 % MCV 87.0 80 - 100 FL MCH 29.1 26 - 34 PG MCHC 33.5 32.0 - 36.0 G/DL RDW 17.2 (H) 11 - 15 % Platelet Count 183 150 - 400 K/UL MPV 8.6 7 - 11 FL Neutrophils 48 41 - 77 % Lymphocytes 37 24 - 44 % Monocytes 6 4 - 12 % Eosinophils 9 (H) 0 - 5 % Basophils 0 0 - 2 % Absolute Neutrophil Count 3.50 1.8 - 7.0 K/UL Absolute Lymph Count 2.80 1.0 - 4.8 K/UL Absolute Monocyte Count 0.50 0 - 0.80 K/UL Absolute Eosinophil Count 0.70 (H) 0 - 0.45 K/UL Absolute Basophil Count 0.00 0 - 0.20 K/UL COMPREHENSIVE METABOLIC PANEL Collection Time: 09/19/18 4:06 AM Result Value Ref Range Sodium 135 (L) 137 - 147 MMOL/L Potassium 2.7 (LL) 3.5 - 5.1 MMOL/L Chloride 99 98 - 110 MMOL/L Glucose 202 (H) 70 - 100 MG/DL Blood Urea Nitrogen 6 (L) 7 - 25 MG/DL Creatinine 0.57 0.4 - 1.00 MG/DL Calcium 7.7 (L) 8.5 - 10.6 MG/DL Total Protein 5.1 (L) 6.0 - 8.0 G/DL Total Bilirubin 0.3 0.3 - 1.2 MG/DL Albumin 3.3 (L) 3.5 - 5.0 G/DL Alk Phosphatase 49 25 - 110 U/L AST (SGOT) 22 7 - 40 U/L CO2 21 21 - 30 MMOL/L ALT (SGPT) 15 7 - 56 U/L Anion Gap 15 (H) 3 - 12 eGFR Non >60 >60 mL/min eGFR >60 >60 mL/min POC GLUCOSE Collection Time: 09/19/18 4:32 AM Result Value Ref Range Glucose, POC 168 (H) 70 - 100 MG/DL POC GLUCOSE Collection Time: 09/19/18 4:49 AM Result Value Ref Range Glucose, POC 140 (H) 70 - 100 MG/DL POC GLUCOSE Collection Time: 09/19/18 5:07 AM Result Value Ref Range Glucose, POC 123 (H) 70 - 100 MG/DL POC GLUCOSE Collection Time: 09/19/18 5:23 AM Result Value Ref Range Glucose, POC 128 (H) 70 - 100 MG/DL POC GLUCOSE Collection Time: 09/19/18 6:22 AM Result Value Ref Range Glucose, POC 130 (H) 70 - 100 MG/DL POC GLUCOSE Collection Time: 09/19/18 8:15 AM Result Value Ref Range Glucose, POC 124 (H) 70 - 100 MG/DL POC GLUCOSE Collection Time: 09/19/18 10:17 AM Result Value Ref Range Glucose, POC 114 (H) 70 - 100 MG/DL POC GLUCOSE Collection Time: 09/19/18 11:52 AM Result Value Ref Range Glucose, POC 119 (H) 70 - 100 MG/DL POC GLUCOSE Collection Time: 09/19/18 1:49 PM Result Value Ref Range Glucose, POC 131 (H) 70 - 100 MG/DL POC GLUCOSE Collection Time: 09/19/18 3:51 PM Result Value Ref Range Glucose, POC 124 (H) 70 - 100 MG/DL POC GLUCOSE Collection Time: 09/19/18 5:51 PM Result Value Ref Range Glucose, POC 144 (H) 70 - 100 MG/DL Pertinent radiology reviewed. Associated attestation - Charles Freeman MD - 09/20/2018 3:01 PM CDT GI STAFF ATTESTATION I personally performed the ortega portions of the E/M visit, discussed case with resident and concur with resident documentation of history, physical exam, assessment, and treatment plan unless otherwise noted. History of fairly long-standing epigastric abdominal pain that is associated with nausea and vomiting. The pain can be present more or less all the time but she does note that it can get worse after eating. She is also been noting some reflux and dysphagia. She is been seen in the GI clinic most recently by Dr. Kirk. At this time we will proceed with diagnostic EGD and colonoscopy and we will obtain additional biopsies from stomach and duodenum. I think she would benefit from anesthesia pain consult for a trigger point injection. Given the fact that she has lost weight and there is a postprandial worsening of her pain I think imaging of her mesenteric vasculature is also warranted with either CTA or MRA. GI consult will continue to follow. Staff name: Charles Freeman MD Date: 09/20/2018 * Quincy Morris DO - 09/19/2018 2:24 PM CDT Associated Order(s): CONSULT ENDOCRINOLOGY PHYSICIAN Endocrinology Consult History and Physical Name: Chelsea Castillo Admission Date: 09/17/2018 Principal Problem: Abdominal pain Active Problems: Other dysphagia Other constipation Intractable cyclical vomiting with nausea Type 1 diabetes mellitus with complication (HCC) Dysthymia Anxiety Migraine with aura and with status migrainosus, not intractable Epigastric pain Chronic abdominal pain Orthostatic hypotension Acquired hypothyroidism LAD (lymphadenopathy), axillary Reason for Consult: "58 yo female hx of brittle dm, pt with syncopal episoded and hypoglycemia overnight, please assist with dm management." Assessment / Plan Chelsea Castillo is a 58 y.o. female with arthritis, osteoporosis, hypothyroidism and DM type 1 who presented on 09/18/2018 with intractable nausea /vomiting in the setting of chronic abdomina pain. Endocrinology consulted for DM management. 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 Patton PCP for diabetes management Diabetic-complications assessment: Retinopathy: yes. . Peripheral neuropathy: yes Autonomic neuropathy: no Nephropathy: No Macrovascular complications: no known CAD Risk Factor assessment Last lipid profile Lab Results Component Value Date CHOL 176 09/18/2018 TRIG 161 (H) 09/18/2018 HDL 53 09/18/2018 LDL 96 09/18/2018 VLDL 32 09/18/2018 NONHDLCHOL 123 09/18/2018 BP Readings from Last 1 Encounters: 09/19/18 164/87 On ACEi/ARB?: no On Statin?: no Acute on Chronic abdominal pain Lymphadenopathy Being worked up by hematology Hypothyroidism 09/18/2018 TSH 6.14 On levothyroxine 175 mcg daily Impression / Recommendations Hypoglycemia likely from too much basal insulin, patient getting some hypoglycemic episodes at home as well. Plan to reduce basal insulin and give correction factor while patient continues to be n.p.o. it is likely the patient suffers from some autonomic dysfunction given the length of time of diagnosis of diabetes. Reduce Lantus 14 units nightly Continue low-dose correction factor Once patient starts eating again will require mealtime insulin Pt was discussed with Staff physician Quincy Morris DO Pager [phone] Subjective: Chelsea Castillo is a 58 y.o. female with arthritis, osteoporosis, hypothyroidism and DM type 1 who presented on 09/18/2018 with intractable nausea /vomiting in the setting of chronic abdomina pain. Endocrinology consulted for DM management. Patient has had a year long history of epigastric pain and had multiple ED visits and admissions in the past. Patient also on home opioids and previous workup has been unremarkable. Patient presented on 09/18/2018 with worsening acute on chronic abdominal pain. Patient reports nausea and vomiting and denies any tobacco alcohol or drugs. It seems that her pain is worse with solid food. Patient sister called her primary care about the symptoms and was told to go to the emergency department and possibly get admitted for a full workup and appropriate management of her symptoms. CT scan on presentation did show colon filled with stool patient reports constipation. Patient is been managed since admission with Lantus 15 units nightly and low-dose correction factor. On examination patient slightly confused and slow to respond to questioning. Family able to assist in history. Patient has been diabetic since age of [age] years old and follows with her PCP in [facility]. Prior to admission she was on Tresiba 15 units daily and NovoLog 8 units with meals was it was prescribed but the patient was only taking 33 units when she was eating which is not very often as her appetite has been very poor and she been having significant abdominal symptoms. Patient does report retinopathy and neuropathy. Past Medical History: Diagnosis Date Arthritis Diabetes [...] Allergies: Sulfa (sulfonamide antibiotics) Review of Systems: Abdominal pain, confusion, nausea Constitutional: negative for fevers, chills Eyes: negative for visual disturbance Ears, nose, mouth, throat, and face: change in hearing Respiratory: negative for cough or SOB Cardiovascular: negative for chest pain Gastrointestinal: negative for nausea, vomiting Genitourinary:negative for hematuria Integument/breast: negative for rash Musculoskeletal:negative for myalgias and arthralgias Neurological: negative for headaches, dizziness and lightheadedness Endocrine: negative for heat or cold intolerance Physical Exam: General: Drowsy, confused, cooperative, no distress, appears stated age Head: Normocephalic Eyes: No scleral icterus Neck: Supple, symmetrical, no adenopathy, thyroid: no enlargement/tenderness/ nodules Lungs: CTA Heart: RRR Abdomen: S, slight tenderness to light palpation, + BS Skin: No rashes Neurologic: Alert Vital Signs: Last Filed In 24 Hours Vital Signs: 24 Hour Range BP: 164/87 (09/19 1340) Temp: 36.7 C (98.1 F) (09/19 1340) Pulse: 90 (09/19 1340) Respirations: 14 PER MINUTE (09/19 1340) SpO2: 100 % (09/19 1340) O2 Delivery: None (Room Air) (09/19 1340) Height: 165.1 cm (65") (09/18 1447) BP: (141-164)/(61-87) Temp: [36.6 C (97.9 F)-37 C (98.6 F)] Pulse: [84-96] Respirations: [14 PER MINUTE-16 PER MINUTE] SpO2: [99 %-100 %] O2 Delivery: None (Room Air) Intensity Pain Scale (Self Report): 8 (09/19/18 0800) Medications: No current facility-administered medications on file prior to encounter. Current Outpatient Prescriptions on File Prior to Encounter Medication Sig Dispense Refill ALPRAZolam (XANAX) 1 mg tablet Take 1 [...] and lunch, and 10 units with dinner. 45 mL 0 levocarnitine(+) (LEVOCARNITINE(+)) 500 mg tablet Take four tablets by mouth twice daily. 240 tablet 1 levothyroxine (SYNTHROID) 175 mcg tablet Take 175 mcg by mouth daily 30 minutes before breakfast. lidocaine/prilocaine (EMLA) 2.5/2.5 % topical cream Apply topically to affected area as Needed. LORazepam (ATIVAN) 1 mg tablet Take 1 mg by mouth four times daily. magnesium oxide (MAG-OX) 400 mg tablet Take one tablet by mouth daily. 180 tablet 3 montelukast (SINGULAIR) 10 mg tablet Take 10 [...] as needed for Nausea. 30 each 0 rizatriptan (MAXALT) 10 mg tablet Take 10 [...] encounter of (from the past 24 hour(s)) HEPATITIS PANEL, ACUTE Collection Time: 09/18/18 4:50 PM Result Value Ref Range Hepatitis A IgM NEG NEG-NEG Anti HBc IgM NEG NEG-NEG HBsAg NEG NEG-NEG Anti HCV NEG NEG-NEG HIV-1/2 ANTIGEN/ANTIBODY SCREEN Collection Time: 09/18/18 4:50 PM Result Value Ref Range HIV 1 and 2 AG AB Screen NEG NEG-NEG POC GLUCOSE Collection Time: 09/18/18 7:53 PM Result Value Ref Range Glucose, POC 105 (H) 70 - 100 MG/DL POC GLUCOSE Collection Time: 09/19/18 3:36 AM Result Value Ref Range Glucose, POC 40 (LL) 70 - 100 MG/DL POC GLUCOSE Collection Time: 09/19/18 3:47 AM Result Value Ref Range Glucose, POC 236 (H) 70 - 100 MG/DL POC GLUCOSE Collection Time: 09/19/18 4:01 AM Result Value Ref Range Glucose, POC 188 (H) 70 - 100 MG/DL CBC AND DIFF Collection Time: 09/19/18 4:06 AM Result Value Ref Range White Blood Cells 7.4 4.5 - 11.0 K/UL RBC 3.79 (L) 4.0 - 5.0 M/UL Hemoglobin 11.0 (L) 12.0 - 15.0 GM/DL Hematocrit 32.9 (L) 36 - 45 % MCV 87.0 80 - 100 FL MCH 29.1 26 - 34 PG MCHC 33.5 32.0 - 36.0 G/DL RDW 17.2 (H) 11 - 15 % Platelet Count 183 150 - 400 K/UL MPV 8.6 7 - 11 FL Neutrophils 48 41 - 77 % Lymphocytes 37 24 - 44 % Monocytes 6 4 - 12 % Eosinophils 9 (H) 0 - 5 % Basophils 0 0 - 2 % Absolute Neutrophil Count 3.50 1.8 - 7.0 K/UL Absolute Lymph Count 2.80 1.0 - 4.8 K/UL Absolute Monocyte Count 0.50 0 - 0.80 K/UL Absolute Eosinophil Count 0.70 (H) 0 - 0.45 K/UL Absolute Basophil Count 0.00 0 - 0.20 K/UL COMPREHENSIVE METABOLIC PANEL Collection Time: 09/19/18 4:06 AM Result Value Ref Range Sodium 135 (L) 137 - 147 MMOL/L Potassium 2.7 (LL) 3.5 - 5.1 MMOL/L Chloride 99 98 - 110 MMOL/L Glucose 202 (H) 70 - 100 MG/DL Blood Urea Nitrogen 6 (L) 7 - 25 MG/DL Creatinine 0.57 0.4 - 1.00 MG/DL Calcium 7.7 (L) 8.5 - 10.6 MG/DL Total Protein 5.1 (L) 6.0 - 8.0 G/DL Total Bilirubin 0.3 0.3 - 1.2 MG/DL Albumin 3.3 (L) 3.5 - 5.0 G/DL Alk Phosphatase 49 25 - 110 U/L AST (SGOT) 22 7 - 40 U/L CO2 21 21 - 30 MMOL/L ALT (SGPT) 15 7 - 56 U/L Anion Gap 15 (H) 3 - 12 eGFR Non >60 >60 mL/min eGFR >60 >60 mL/min POC GLUCOSE Collection Time: 09/19/18 4:32 AM Result Value Ref Range Glucose, POC 168 (H) 70 - 100 MG/DL POC GLUCOSE Collection Time: 09/19/18 4:49 AM Result Value Ref Range Glucose, POC 140 (H) 70 - 100 MG/DL POC GLUCOSE Collection Time: 09/19/18 5:07 AM Result Value Ref Range Glucose, POC 123 (H) 70 - 100 MG/DL POC GLUCOSE Collection Time: 09/19/18 5:23 AM Result Value Ref Range Glucose, POC 128 (H) 70 - 100 MG/DL POC GLUCOSE Collection Time: 09/19/18 6:22 AM Result Value Ref Range Glucose, POC 130 (H) 70 - 100 MG/DL POC GLUCOSE Collection Time: 09/19/18 8:15 AM Result Value Ref Range Glucose, POC 124 (H) 70 - 100 MG/DL POC GLUCOSE Collection Time: 09/19/18 10:17 AM Result Value Ref Range Glucose, POC 114 (H) 70 - 100 MG/DL POC GLUCOSE Collection Time: 09/19/18 11:52 AM Result Value Ref Range Glucose, POC 119 (H) 70 - 100 MG/DL POC GLUCOSE Collection Time: 09/19/18 1:49 PM Result Value Ref Range Glucose, POC 131 (H) 70 - 100 MG/DL Glucose: (!) 202 (09/19/18 0406) POC Glucose (Download): (!) 131 (09/19/18 1349) Pertinent radiology reviewed. Associated attestation - Arik Potter MD - 09/19/2018 4:27 PM CDT ATTESTATION I personally performed the ortega portions of the E/M visit, discussed case with resident and concur with resident documentation of history, physical exam, assessment, and treatment plan unless otherwise noted. Patient VERY poor historian. Appears confused. History obtained from family Type 1 DM diagnosed at age 15, complicated by peripheral neuropathy, PDR, unknown nephropathy At home, managed with Tresiba 15 units. Also on Novolog, but she has not used for weeks due to abdominal pain and lack of meal intake. When she did eat, was only taking 3 units. Used to be on 8 units in the past Has hypoglycemias 2x week. Last night, dropped to 40s. She was sweaty. Per sister, her memory has been very poor since Memorial weekend. Managed by PCP, has [facility] appointment in 3 weeks Received Lantus 15 units last night, hypoglycemia to 40s A1c ~10% TSH high normal, previously slightly suppressed Type 1 DM uncontrolled with peripheral and most likely autonomic neuropathy, PDR , with hypoglycemia - Decrease Lantus to 14 units - Novolog LDCF - No prandial insulin until she has some po intake Hypothyroidism - TSH high normal. Continue same LT4 dose Orthostasis - Normal adrenal function. Likely autonomic neuropathy Staff name: Arik Potter MD Date: 09/19/2018 * Sosa Oquendo, RN - 09/19/2018 1:18 PM CDT Associated Order(s): CONSULT DIABETES NURSE EDUCATOR INPATIENT DIABETES EDUCATION TEAM [facility] Reason for Consult: uncontrolled blood sugars Patient may benefit from: continuous glucose monitor This consult team does not write orders. Primary Team is responsible for placing orders. Supplies/Resources provided: Hga1c, hyperglycemia, hypoglycemia, sick day guidelines education Met with Chelsea Castillo to discuss diabetes management. Met with patient and , DENISE to discuss diabetes management at home. Insurance: Medicare, Medicaid. Discussed A1C on 09/18/2018 of 9.8%. Informed pt and that this was a decrease from 07/19/2018 A1C of 11.4%. Pt and were happy to hear of decrease. Pt has had several months of not being able to tolerate PO diet. Has had n/v/ abdominal pain. reports pt only able to eat crackers with peanut butter , cream cheese on crackers. Has to take Reglan in order to eat meals. reports variable BS. Range from 30-500s. checks BS more than 4 times per day in order to see if BS is high/low so that he can treat. Recommended CGM if covered by insurance. Informed him that this must be done on out-patient basis and to discuss with Dr. Avelar at upcoming appointment. Pt has seen GI in clinic and came to ED after attempting to be NPO for GI studies. 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 reports giving Humalog depending on BS. Will give 1 units of insulin to bring BS down by 50 points. Goal BS for pt is 100. Last OV notes with Sandra Wayne indicate that Humalog directions 4 units plus SSI every 4 hours. reports that pt had a pump several years ago, but training locally was insufficient. Pt wore pump for very short period of time due to having low BS. They wanted pt/ to carb count and to give insulin for meals. However, pt did not eat all of meal so would have low BS. Pump was discontinued. gives Tresiba insulin every night. Does not miss dose even if pt not eating. Pt has DM 1 Discussed to never hold insulin even if not eating because with DM 1, pt does not make own insulin. He states understanding and was aware of this. Discussed sick day guidelines according to handout. Recommended buy ketones sticks from pharmacy. Pt with hx of Ketoacidosis. Recommended to not hold insulin and to contact PCP/ENDO or go to ED if pt unable to tolerate foods , keep fluids down, or with ketones in urine for further recommendations. Discussed keeping pt hydrated by using powerade zero, water, chicken broth. Discussed importance of continuing to eat every 4-6 hours getting 45-60 carbs per meal, if able to tolerate. Discussed hyperglycemia, BS higher than 140, and possible causes, prevention, treatment, goals. Discussed hypoglycemia, BS lower than 70 mg/dl, and possible causes, prevention , treatment. Pt does have many low BS. Has had one while in-patient which required SUIT MAKER. Pt was symptomatic at the time. Informed pt to call nurse as soon as possible if she is having symptoms or believes that she is having a low. Discussed treatment options. At home, pt is treated with peanut butter and crackers. Informed that low BS need to be treated with rapid acting sugar quickly to get BS above 70 mg/dl. Discussed rule of 15 in order to not over treat. Once low BS is treated, recommended peanut butter and crackers. At one point, pt became tearful during education. She wishes that "they could figure out what is wrong with her so that she can start feeling better." during end of education, pt was tired and wanted to lay down. Informed and pt to have us contacted with further questions! Sosa Oquendo RN, BSN Clinical Nurse Excellence - Mobile Lab Technician (P) [phone] Pager - [phone] 08:00-4:30 weekdays, If no response, please call team pager ([phone]) Diabetic Education Team office ([phone]) * Davie Portillo MD - 09/18/2018 1:00 PM CDT Associated Order(s): CONSULT HEMATOLOGY PHYSICIAN General Consult Note Admission Date: 09/17/2018 LOS: 0 days Reason for Consult: Patient with hx of chronic abdominal pain , found to have axillary and external iliac LAD, was scheduled to see onc for workup as outpatient, gene admitted for progressive abdominal pain. Please assist in regards to her LAD and whether this could contributing to her abdominal symptoms. Moreover whether a biopsy Is warranted to workup the iliac lymph node found on the CT abdomen Consult type: Co-Management w/Signed Orders Assessment/Plan Ms. Castillo is a 58-year-old female with past medical history of hypothyroidism, diabetes mellitus, anxiety, depression, chronic abdominal pain with nausea and vomiting, who presented to the emergency room with complaint of nausea and vomiting along with abdominal pain. Hematology service was consulted because of lymphadenopathy. 1. Lymphadenopathy: - She had a CAT scan of the chest/abdomen/pelvis done in June 2018 which showed mild bilateral axillary lymphadenopathy which could be secondary to low- grade lymphoma or CLL as 1 of the differential diagnosis. There was mild bilateral pelvic lymphadenopathy present. - Repeat CAT scan during this admission showed mild external iliac lymphadenopathy bilaterally. Divemaster left external iliac lymph node measures 1.6 cm. There is also mildly prominent inguinal lymph nodes bilaterally which are reactive in appearance. - Her CBC is unremarkable except for mild leukocytosis with WBC of 13.2, RDW of 18.3, eosinophil count elevated to 1.20 - ESR is less than 1 and C-reactive protein is 0.16, hemoglobin A1c 9.8, phosphorus 3.7 and total protein 5.9 - She had a complete autoimmune panel done in July 2018 which was unremarkable, cortisol level was normal. - Peripheral smear has been ordered and the reports are pending. - She has associated nonspecific B symptoms which include low-grade fever, chills, night sweats and weight loss - She is up-to-date with is a specific screening as per her statement. - No family history of lymphoma or leukemia, mother had pancreatic carcinoma. RECOMMENDATIONS: - His autoimmune work up was negative in 06/2018. She reports of B-symptoms. Will check for HIV and Hepatitis panel (Ordered) - Consider CT chest and neck with contrast (Ordered) - If she is kept here for other medical condition, consider excisional biopsy of the left external iliac LN by general surgery. - If stable to discharge, she can be followed up as outpatient with Dr. Ortega ( adult high school instructor)- appointment requested. Patient was seen and plan discussed with Dr. Portillo Steve Liu MD PhD Fellow, Hematology/Oncology Pager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 answer questions. Inappropriate for education at this time. Will attempt again later. Sosa Oquendo RN, BSN Clinical Nurse Excellence - Mobile Lab Technician (P) [phone] Pager - [phone] 08:00-4:30 weekdays, If no response, please call team pager ([phone]) Diabetic Education Team office [phone]) in this encounter Miscellaneous Notes * Case Mgmt DC Plan - Adriana Acevedo RN - 09/25/2018 3:14 PM LAST [facility] Case Management Progress NoteNAME:Chelsea Castillo :1960 AGE: 58 y.o. ADMISSION DATE: 09/17/2018 DAYS ADMITTED: LOS: 7 days Todays Date: 09/25/2018 Plan - DC planning ongoing Interventions ? Support ? Info or Referral ? Discharge Planning - NCM reviewed EMR and discussed pt with Dr. Morrison during huddle. 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 - No NCM needs at this time. - Case management team will continue to follow. ? Medication Needs ? Financial ? Legal ? Other Disposition ? Expected Discharge Date Expected Discharge Date: 09/26/18 ? Transportation Does the patient need discharge transport arranged?: No ? Next Level of Care (Acute Psych discharges only) ? Discharge Disposition Durable Medical Equipment No service has been selected for the patient. [facility] Destination No service has been selected for the patient. Home Care No service has been selected for the patient. Dialysis/Infusion No service has been selected for the patient. Adriana RAMIREZ, RN Nurse Heart Surgeon Pager: [phone] [facility] * Procedures (Immed Post or Bedside) - Roldan Reyes MD - 09/24/2018 8:33 AM LAST [facility] Immediate Post Procedure Note Date: 09/24/2018 Attending Physician: Dr. Contreras Performing Provider: Roldan Reyes MD Consent: Consent obtained from patient. Time out performed: Consent obtained, correct patient verified, correct procedure verified, correct site verified, patient marked as necessary. Pre/Post Procedure Diagnosis: Lymphadenopathy Indications: Unknown lymphadenopathy Anesthesia: Conscious Sedation Procedure(s): US guided axillary lymph node biopsy Findings: 4x18g core biopsy left axillary lymph node Estimated Blood Loss: None/Negligible Specimen(s) Removed/Disposition: Yes, sent to pathology Complications: None Patient Tolerated Procedure: Well Post-Procedure Condition: stable Roldan Reyes MD Pager [phone] [facility] * Critical Results - Jg Larose RN - 09/22/2018 2:36 PM LAST [facility] Critical result or procedure called (document test and value, and read back): Blood glucose 514 Time MD/PULLER THROUGH Notified: 1433 MD/PULLER THROUGH Name: Dr. Mallory LIAO/PULLER THROUGH Response/Orders Given: Give correction factor of insulin [facility] * Critical Results - Emma Fischer RN - 09/22/2018 6:13 AM LAST [facility] Critical result or procedure called (document test and value, and read back): Potassium 2.6 Time MD/PULLER THROUGH Notified: 0613 MD/PULLER THROUGH Name: MD/PULLER THROUGH Response/Orders Given: Awaiting orders for potassium replacement [facility] * Anesthesia Post Op Day 1 - Jocy Baker SRNA - 09/21/2018 9:17 AM CDT Anesthesia Follow-Up Evaluation: Post-Procedure Day One Name: Chelsea Castillo : 1960 Age: 58 y.o. Sex: female Procedure Date: 09/20/2018 Procedure: Procedure(s): ESOPHAGOGASTRODUODENOSCOPY COLONOSCOPY ESOPHAGOGASTRODUODENOSCOPY BIOPSY COLONOSCOPY BIOPSY COLONOSCOPY EXCISION LESION Physical Assessment Height: 165.1 cm (65") Weight: 63 kg (139 lb) Vital Signs (Last Filed in 24 hours) BP: 149/72 (09/21 912) Temp: 36.6 C (97.9 F) (09/21 912) Pulse: 89 (09/21 912) Respirations: 16 PER MINUTE (09/21 912) SpO2: 100 % (09/21 912) O2 Delivery: None (Room Air) (09/21 912) SpO2 Pulse: 78 (09/20 1615) Patient History Allergies Allergies Allergen Reactions Sulfa (Sulfonamide Antibiotics) UNKNOWN Medications Scheduled Meds: carBAMazepine (TEGRETOL) tablet 400 mg 400 mg Oral QDAY duloxetine DR (CYMBALTA) capsule 60 mg 60 mg Oral BID electrolyte GUT PEG (NULYTELY, COLYTE, GAVILYTE-N) oral solution 4 L 4 L Oral As Prescribed enoxaparin (LOVENOX) syringe 40 mg 40 mg Subcutaneous QDAY(21) fludrocortisone (FLORINEF) tablet 0.3 mg 0.3 mg Oral QDAY insulin aspart U-100 (NOVOLOG FLEXPEN) injection PEN 0-7 Units 0-7 Units Subcutaneous ACHS insulin glargine (LANTUS SOLOSTAR, BASAGLAR) injection PEN 14 Units 14 Units Subcutaneous QHS(22) levothyroxine (SYNTHROID) tablet 175 mcg 175 mcg Oral QDAY 30 min before breakfast Continuous Infusions: lactated ringers infusion PRN and Respiratory Meds:acetaminophen Q6H PRN, ALPRAZolam BID PRN, electrolyte GUT PEG PRN (Staff Appraiser from Rx), ondansetron (ZOFRAN) IV Q6H PRN, oxyCODONE Q6H PRN, zolpidem QHS PRN Diagnostic Tests Hematology: Lab Results Component Value Date HGB 13.2 09/21/2018 HCT 40.5 09/21/2018 PLTCT 234 09/21/2018 WBC 13.1 09/21/2018 NEUT 50 09/21/2018 ANC 6.50 09/21/2018 ALC 4.50 09/21/2018 EVELYN 5 09/21/2018 AMC 0.60 09/21/2018 EOSA 10 09/21/2018 ABC 0.10 09/21/2018 MCV 89.1 09/21/2018 MCH 29.0 09/21/2018 MCHC 32.6 09/21/2018 MPV 9.1 09/21/2018 RDW 17.5 09/21/2018 General Chemistry: Lab Results Component Value Date NA 137 09/21/2018 K 3.0 09/21/2018 CL 101 09/21/2018 CO2 25 09/21/2018 GAP 11 09/21/2018 BUN 3 09/21/2018 CR 0.67 09/21/2018 GLU 152 09/21/2018 CA 8.6 09/21/2018 ALBUMIN 3.7 09/21/2018 MG 1.6 09/20/2018 TOTBILI 0.4 09/21/2018 PO4 3.7 09/18/2018 Coagulation: No results found for: PT, PTT, INR Follow-Up Assessment Patient location during evaluation: floor Anesthetic Complications: Anesthetic complications: The patient did not experience any anesthestic complications. Pain: Management:adequate Level of Consciousness: awake and alert Hydration:acceptable Airway Patency: patent Respiratory Status: spontaneous ventilation and acceptable Cardiovascular Status:hemodynamically stable Regional/Neuroaxial: * Patient Education - Tarsha Mansfield RN - 09/19/2018 11:16 AM CDT Medication Education Chelsea Castillo accepted counseling and was engaged. she verbalized understanding. The following medications were discussed: Tegretol cymbalta florinif novolog Where indicated, the patient was provided with additional medication and/or disease-state information. All patient questions were answered and patient acknowledged understanding of the medications, side effects and other pertinent medication information. Follow up should occur as needed. Continue to address: indications Tarsha Mansfield RN * Care Plan - Tarsha Mansfiled RN - 09/19/2018 11:16 AM CDT Problem: Discharge Planning Goal: Participation in plan of care Outcome: Goal Ongoing Patient actively participates in plan of care Goal: Knowledge regarding plan of care Outcome: Goal Ongoing Patient verbally states understanding in plan of care Goal: Prepared for discharge Outcome: Goal Ongoing Discharge ongoing at this time Problem: Pain Goal: Management of pain Outcome: Goal Ongoing q4h and prn pain assessment completed this shift Goal: Knowledge of pain management Outcome: Goal Ongoing Patient verbally states understanding in plan of care regarding pain management * Response Teams - Calli Martell RN - 09/19/2018 6:14 AM CDT SUIT MAKER follow up completed at this time. BG stable. Primary RN states concerns for continued drop in BG and is remaining diligent on assessing BG level. No other concerns expressed by primary RN. Please do no hesitate to contact the SUIT MAKER w/ any new needs. Thank you, Best Martell RN * Critical Results - Humaira Carvalho RN - 09/19/2018 4:54 AM CDT Critical result or procedure called (document test and value, and read back): Potassium 2.7 Time MD/PULLER THROUGH Notified: 0458 MD/PULLER THROUGH Name: Dr. Swanson MD/PULLER THROUGH Response/Orders Given: Potassium Chloride in water IVPB 10 mEq x6 doses * Response Teams - Lauren Vickers RN - 09/19/2018 4:04 AM CDT Rapid Response Team Progress Note Date: 09/19/2018 Time: 0419 Patient: Chelsea K Issa Castillo Attending: Ivory Gonzalez MD Service: [facility] P- [id number] Admission Date: 09/17/2018 LOS: 1 day A Code/Rapid Response Timeline Event Report has been created for this patient on 09/19/2018 at 0344. SUIT MAKER was paged for decrease in LOC due to blood sugar of 40. D50W was given prior to arrival of SUIT MAKER. Dr. Swanson paged and informed of patient status. See chart for repeat blood sugar. Dr. Swanson come to bedside to assess pt. Pt A&O post D50W, VSS. Primary RN will continue to monitor. SUIT MAKER to follow up with pt in 2 hours. Lauren Vickers RN * Case Mgmt DC Plan - Adriana Acevedo RN - 09/18/2018 11:52 AM CDT Case Management Admission AssessmentNAME:Chelsea K Issa Castillo :1960 AGE: 58 y.o. ADMISSION DATE: 09/17/2018 DAYS ADMITTED: LOS: 0 days Todays Date: 09/18/2018 Source of Information: Patient Plan - NCM reviewed EMR and and discussed pt with team. - Per H&P: Chelsea Parsons Pelon a 58 y.o. female with PMHX of diabetes, anxiety, depression, hypothyroidism, migraine headaches, gastritis, cholecystectomy, thyroidectomy presenting with intractable abdominal pain and nausea/vomiting - Pt recently admitted to this facility, pt denies any changes since his last admission. - Pt intermittently confused, NCM attempted to call to get assessment information. - No answer on 's phone at this time. - No HH or facility history. - No DME and pt denies the need for DME. - No NCM needs at this time. - Case management team will continue to follow. Patient Address/Phone [address] [place] [phone] (home) Emergency Contact Extended Emergency Contact Information Primary Emergency Contact: Dioni Castillo [facility] Mobile Relation: Spouse Secondary Emergency Contact: Quiana Iqbal [facility] Mobile Relation: Sister Healthcare Directive Transportation Does the patient need discharge transport arranged?: No Expected Discharge Date Expected Discharge Date: 09/20/18 Living Situation Prior to Admission ? Living Arrangements Type of Residence: Home, independent Living Arrangements: Spouse/significant other Bathroom Shower / Tub: Tub/Shower Unit How many levels in the residence?: 1 Can patient live on one level if needed?: Yes Does residence have entry and/or side stairs?: Yes (4) Assistance needed prior to admit or anticipated on discharge: Yes Who provides assistance or could if needed?: pt's Are they in good health?: Unknown Can support system provide 24/7 care if needed?: Maybe ? Level of Function Prior level of function: Independent ? Cognitive Abilities Cognitive Abilities: Alert and Oriented, Continue to Assess Financial Resources ? Coverage Primary Insurance: Medicare Secondary Insurance: Medicaid Additional Coverage: RX ? Source of Income Source Of Income: SSDI ? Financial Assistance Needed? No Psychosocial Needs ? Mental Health ? Substance Use History ? Other No Current/Previous Services ? PCP Sandra Wayne, , ? Pharmacy [facility], [place] - [address] [facility] [address] [facility] [address] ? Durable Medical Equipment Durable Medical Equipment [...] ? Outpatient Therapy PT: No OT: No HEADHUNTER: No ? Prison Facility/[facility] SNF: No NH: No ? Inpatient Rehab IPR: No ? [facility] LTACH: No ? Acute Hospital Stay Acute Hospital Stay: In the past Was patient's stay within the last 30 days?: No Adriana RAMIREZ, RN Nurse Heart Surgeon Pager: [phone] * ED Notes - Thi Pruett RN - 09/18/2018 12:46 AM CDT Pt taken to [facility] by cart in stable condition. * ED Notes - Jessi Aguilar RN - 09/18/2018 12:27 AM CDT Report given to SHAVON Gerardo * ED Notes - Chase Douglass RN - 09/18/2018 12:16 AM CDT [id number] @ 0016. Please call Jessi RN at [phone]. * ED Notes - Chase Douglass RN - 09/18/2018 12:13 AM CDT [id number] @ 0012. Please call Jessi RN at [phone]. * Advanced Care Planning/Resuscitation Status - Duncan Mckeon MBBS - 12:07 AM CDT Advance Care Planning/Resuscitation Status Conversation Individuals present for advance care planning conversation: attending physician , patient and other: and sister Pertinent details of conversation (including direct quotes from patient or surrogate): Patient would like full resuscitative efforts in an event of cardiac arrest Outcome of conversation: Full Code Documents completed as a result of this conversation: None Other documents present, which outline patient/surrogate wishes: None * ED Provider Notes - Roldan Chen MD - 09/17/2018 8:50 PM CDT Chelsea Castillo is a 58 y.o. female. Chief Complaint: Chief Complaint Patient presents with Abdominal pain onset Sun. +NV. intermittent chills/sweats. History of Present Illness: Chelsea Castillo is a 58 y.o. female, with a history of DM, osteoporosis, and thyroid disorder who presents to the emergency department for abdominal pain. Patient initially began to have upper abdominal pain months ago that has gradually been progressing. She was evaluated yesterday for exact same pain and denies any changes. She says her pain waxes and wanes and describes her pain as sharp and non-radiating. She has associated symptoms of chills, nausea, and vomiting most recently this morning. She also had 1 episode of diarrhea today without blood. Patient has taken nothing for her symptoms because she cannot keep anything down. She denies urinary changes, CP, and SOB. 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 Negative for fever. HENT: Negative for congestion, rhinorrhea and sore throat. Eyes: Negative for redness and visual disturbance. Respiratory: Negative for cough, chest tightness, shortness of breath and wheezing. Cardiovascular: Negative for chest pain and palpitations. Gastrointestinal: Positive for abdominal pain, diarrhea, nausea and vomiting. Negative for constipation. Genitourinary: Negative for decreased urine volume, difficulty urinating, dysuria and flank pain. Musculoskeletal: Negative for arthralgias and myalgias. Skin: Negative for color change. Allergic/Immunologic: Negative for immunocompromised state. Neurological: Negative for weakness, light-headedness, numbness and headaches. Hematological: Does not bruise/bleed easily. All other systems reviewed and are negative. [...] T BP P RR SPO2P SPO2 User 09/17/18 2130 -- 150/81 84 22 PER MINUTE 84 98 % HR 09/17/182099 -- (!) 163/106 88 22 PER MINUTE 88 99 % HR 09/17/182029 -- 139/84 85 (!) 38 PER MINUTE 85 99 % HR 09/17/181999 -- 148/86 84 20 PER MINUTE 84 98 % HR 09/17/18 1818 36.8 C (98.3 F) (!) 169/106 -- 20 PER MINUTE 96 99 % BR Physical Exam: Physical Exam Constitutional: She is oriented to person, place, and time. She appears well- developed and well-nourished. She appears distressed. HENT: Head: Normocephalic and atraumatic. Mouth/Throat: Oropharynx is clear and moist and mucous membranes are normal. Eyes: Pupils are equal, round, and reactive to light. EOM are normal. Neck: Normal range of motion. Neck supple. Cardiovascular: Normal rate, regular rhythm, normal heart sounds, intact distal pulses and normal pulses. Pulses: Radial pulses are 2+ on the right side, and 2+ on the left side. Dorsalis pedis pulses are 2+ on the right side, and 2+ on the left side. Pulmonary/Chest: Effort normal and breath sounds normal. Abdominal: Soft. She exhibits no distension. There is generalized tenderness. There is no rebound and no guarding. Musculoskeletal: Normal range of motion. Neurological: She is alert and oriented to person, place, and time. Skin: Skin is warm and dry. Capillary refill takes less than 2 seconds. Psychiatric: Her mood appears anxious. Nursing note and vitals reviewed. Laboratory Results: Results for orders placed or performed during the hospital encounter of (from the past 24 hour(s)) POC GLUCOSE Result Value Ref Range Glucose, POC 218 (H) 70 - 100 MG/DL URINALYSIS DIPSTICK Result Value Ref Range Color,UA YELLOW Turbidity,UA 1+ (A) CLEAR-CLEAR Specific [employer]-Urine 1.021 1.003 - 1.035 pH,UA 5.0 5.0 - 8.0 Protein,UA 1+ (A) NEG-NEG Glucose,UA 1+ (A) NEG-NEG Ketones,UA 2+ (A) NEG-NEG Bilirubin,UA NEG NEG-NEG Blood,UA NEG NEG-NEG Urobilinogen,UA NORMAL NORM-NORMAL Nitrite,UA NEG NEG-NEG Leukocytes,UA TRACE (A) NEG-NEG Urine Ascorbic Acid, UA NEG NEG-NEG URINALYSIS, MICROSCOPIC Result Value Ref Range WBCs,UA 2-10 0 - 2 /HPF RBCs,UA 0-2 0 - 3 /HPF MucousUA TRACE Bacteria,UA MODERATE (A) NEG-NEG Squamous Epithelial Cells 5-10 0 - 5 CBC AND DIFF Result Value Ref Range White Blood Cells 13.2 (H) 4.5 - 11.0 K/UL RBC 4.26 4.0 - 5.0 M/UL Hemoglobin 12.3 12.0 - 15.0 GM/DL Hematocrit 36.6 36 - 45 % MCV 86.0 80 - 100 FL MCH 28.9 26 - 34 PG MCHC 33.6 32.0 - 36.0 G/DL RDW 18.3 (H) 11 - 15 % Platelet Count 204 150 - 400 K/UL MPV 8.6 7 - 11 FL Neutrophils 43 41 - 77 % Lymphocytes 40 24 - 44 % Monocytes 8 4 - 12 % Eosinophils 9 (H) 0 - 5 % Basophils 0 0 - 2 % Absolute Neutrophil Count 5.70 1.8 - 7.0 K/UL Absolute Lymph Count 5.30 (H) 1.0 - 4.8 K/UL Absolute Monocyte Count 1.10 (H) 0 - 0.80 K/UL Absolute Eosinophil Count 1.20 (H) 0 - 0.45 K/UL Absolute Basophil Count 0.00 0 - 0.20 K/UL COMPREHENSIVE METABOLIC PANEL Result Value Ref Range Sodium 138 137 - 147 MMOL/L Potassium 3.2 (L) 3.5 - 5.1 MMOL/L Chloride 99 98 - 110 MMOL/L Glucose 230 (H) 70 - 100 MG/DL Blood Urea Nitrogen 17 7 - 25 MG/DL Creatinine 0.86 0.4 - 1.00 MG/DL Calcium 9.0 8.5 - 10.6 MG/DL Total Protein 5.9 (L) 6.0 - 8.0 G/DL Total Bilirubin 0.4 0.3 - 1.2 MG/DL Albumin 3.8 3.5 - 5.0 G/DL Alk Phosphatase 54 25 - 110 U/L AST (SGOT) 20 7 - 40 U/L CO2 26 21 - 30 MMOL/L ALT (SGPT) 12 7 - 56 U/L Anion Gap 13 (H) 3 - 12 eGFR Non >60 >60 mL/min eGFR >60 >60 mL/min LIPASE Result Value Ref Range Lipase 7 (L) 11 - 82 U/L BETA HYDROXYBUTYRATE (KETONES) Result Value Ref Range Beta Hydroxybutyrate 2.7 (H) <0.3 MMOL/L BLOOD GASES, PERIPHERAL VENOUS Result Value Ref Range pH-Venous 7.49 (H) 7.30 - 7.40 PCO2-Venous 37 36 - 50 MMHG PO2-Venous 47 33 - 48 MMHG Base Excess-Venous 4.7 MMOL/L O2 Sat-Venous 82.6 (H) 55 - 71 % [id number] 28.3 MMOL/L POC Glucose (Download): (!) 218 Urine Urine : Negative QC: Acceptable Urine Lot #: [id number] Radiology Interpretation: No orders to display EKG: N/A ED Course: The patient was seen and evaluated by the resident attending for epigastric abdominal pain. IV access was obtained she was placed on the monitor. Her vitals were unremarkable on arrival. The patient's history and exam was as above consistent with prior ED visits. This was the fourth ED visit in the past couple of months with similar symptoms. The patient has additionally been recently admitted due to intractable abdominal pain unchanged from her current presentation. She has had a thorough workup which has been unremarkable. Attempts at obtaining a gastric emptying study have been unsuccessful as the patient does not tolerate periods off of nausea or pain medications. Her differential at this time was concerning for gastroenteritis, gastroparesis , gastritis, PUD, musculoskeletal pain. Psychiatric factors were felt to be factoring in as well in this patient. Labs were obtained as above. Patient's glucose was slightly elevated but there is no evidence of DKA or HHS in this patient. The patient continued to be in a large amount of pain and nausea on reassessment. She was provided Haldol and repeated doses of morphine for which the patient stated it did not alleviate her pain. As the patient was recently here the prior day and had been to the ED multiple times in the past month, recommend admission for further pain control and management of the patient. She agreed with this plan. Internal medicine was consulted and the patient was admitted for further management. MDM Reviewed: vitals, nursing note and previous chart Reviewed previous: labs, CT scan and x-ray Interpretation: labs and ECG Consults: admitting MD Facility Administered Meds: Facility-Administered Medications as of 09/17/2018 Medication Last Dose [COMPLETED] haloperidol (HALDOL) injection 2 mg 2 mg at 09/17/182238 [COMPLETED] lactated ringers infusion 1,000 mL at 09/17/182140 [COMPLETED] morphine injection syringe 4 mg 4 mg at 09/17/182140 morphine injection syringe 4 mg [COMPLETED] prochlorperazine (COMPAZINE) injection 10 mg 10 mg at 09/17/182140 Clinical Impression: Final diagnoses: Abdominal pain, epigastric (Primary) Nausea and vomiting, intractability of vomiting not specified, unspecified vomiting type Fatigue, unspecified type Disposition/Follow up No follow-up provider specified. Medications: New Prescriptions No medications on file Procedure Notes: Procedures Attestation / Supervision: I, Perla Irizarry, am scribing for and in the presence of Sandra Yanes MD. Perla Irizarry Attestation / Supervision Note concerning Chelsea Parsons Castillo: I, Abdoulaye Yanes MD, personally performed the services described in this documentation as scribed in my presence and it is both accurate and complete. Abdoulaye Yanes MD Attestation / Supervision Note: I personally performed the ortega portions of the E /M visit, discussed case with resident and concur with resident documentation of history, physical exam, assessment, and treatment plan unless otherwise noted. Roldan Chen MD * ED Notes - Jessi Aguilar RN - 09/17/2018 8:09 PM CDT 58 yo female to ED17 with CC of abdominal pain, N/V since Sunday. Pt reports, "My stomach hurts, just all the time, I keep throwing up." Pt appetite decreased , as well as fluid intake. Pt reports voiding and having normal BM. Pt denies taking temperature, but reports chills at home. Pt reports getting flu shot this year. Pt unable to take medicines d/t inability to keep them down. Pt reports coming in Sunday for same symptoms, but was not admitted and is unable to report anything regarding dx or D/C except, "they gave me morphine," Pt hx of diabetes, thyroid disorder, absent seizures and migraines. Pt family at bedside reports pt has been progressively declining "since ." pt aaox4 answers questions appropriately, though with delayed responses. Pt denies chest pain, SOB. and sister at bedside. Pt on cardiac, bp, and spo2 monitors. Call light in reach. VSS. Belongings: blanket, valdez socks, pink shirt, pink pants, cell phone, license; family assumes responsibility for belongings. in this encounter Plan of Treatment Care Team Description Date Type Specialty Gunnar Kirk MD [address] [place] [address] [phone] Delayed gastric emptying 02/03/2019 Hospital Encounter Gunnar Kirk MD [address] [place] [address] [phone] ESOPHAGOGASTRODUODENOSCOPY WITH SPECIMEN COLLECTION BY BRUSHING/ WASHING 02/03/2019 Surgery Order Schedule Name Priority Associated Diagnoses ONCE for 1 Occurrences starting 09/20/2018 SURGICAL PATHOLOGY Routine Loss of weight Constant low-grade dysphagia ONCE for 1 Occurrences starting 09/26/2018 SURGICAL PATHOLOGY Routine Stomach ache as of this encounter Procedures Comments Procedure Name Priority Date/Time Associated Diagnosis TELEMETRY STRIPS-SCAN 10/03/2018 2:01 PM LAST [facility]WYER POC GLUCOSE 09/27/2018 11:44 AM LAST [facility]ER DIRECT ANTIGLOBULIN Routine 09/27/2018 TEST(TITO) 11:14 AM LAST [facility] PERIPHERAL SMEAR Routine 09/27/2018 11:14 AM LAST [facility]WYER LDH-LACTATE DEHYDROGENASE Routine 09/27/2018 11:14 AM LAST [facility]WYER HAPTOGLOBIN Routine 09/27/2018 11:14 AM LAST SAW[facility]ER POC GLUCOSE 09/27/2018 8:06 AM LAST SAWYER CBC AND DIFF Routine 09/27/2018 4:03 AM LAST SAWYER COMPREHENSIVE METABOLIC Routine 09/27/2018 PANEL 4:03 AM LAST [facility]ER POC GLUCOSE 09/26/2018 8:46 PM LAST [facility]ER POC GLUCOSE 09/26/2018 6:30 PM LAST [facility]WYER SURGICAL PATHOLOGY 09/26/2018 5:17 PM LAST [facility]WYER FLOW CYTOMETRY 09/26/2018 5:14 PM LAST SAWYER FLOW CYTOMETRY 09/26/2018 5:14 PM LAST [facility]WYER LEUKEMIA/LYMPHOMA PANEL Routine 09/26/2018 FLUID/TISSUE 5:14 PM LAST SAWYER LEUKEMIA/LYMPHOMA PANEL Routine 09/26/2018 FLUID/TISSUE 5:14 PM LAST [facility]ER POC GLUCOSE 09/26/2018 4:06 PM LAST SAWYER ESOPHAGOGASTRODUODENOSCOP 09/26/2018 Stomach ache Y WITH BIOPSY - FLEXIBLE 3:59 PM LAST SAW[facility]ER ESOPHAGOGASTRODUODENOSCOP 09/26/2018 Stomach ache Y 3:59 PM LAST [facility]ER EGD REPORT 09/26/2018 3:[address] ABD/PELV W CONTRAST STAT 09/26/2018 12:14 PM LAST SAWYER POC GLUCOSE 09/26/2018 11:16 AM LAST SAWYER POC GLUCOSE 09/26/2018 8:18 AM LAST SAWYER IRON + BINDING CAPACITY + Routine 09/26/2018 %SAT+ FERRITIN 4:00 AM LAST [facility]ER HEPATITIS B CORE AB TOT Routine 09/26/2018 (IGG+IGM) 4:00 AM LAST [facility]ER CBC AND DIFF Routine 09/26/2018 4:00 AM LAST SAWYER URIC ACID Routine 09/26/2018 4:00 AM LAST SAWYER LDH-LACTATE DEHYDROGENASE Routine 09/26/2018 4:00 AM LAST [facility]ER COMPREHENSIVE METABOLIC Routine 09/26/2018 PANEL 4:00 AM LAST [facility]ER POC GLUCOSE 09/25/2018 9:18 PM LAST SAWYER POC GLUCOSE 09/25/2018 5:29 PM LAST SAWYER POC GLUCOSE 09/25/2018 3:57 PM LAST SAWYER ECG-SCAN 09/25/2018 1:00 PM LAST SAWYER POC GLUCOSE 09/25/2018 12:22 PM LAST SAWYER POC GLUCOSE 09/25/2018 8:22 AM LAST SAW[facility]ER CBC AND DIFF Routine 09/25/2018 3:19 AM LAST [facility]ER COMPREHENSIVE METABOLIC Routine 09/25/2018 PANEL 3:19 AM LAST [facility]ER OVA AND PARASITES, FECAL Routine 09/25/2018 12:02 AM LAST SA[facility]ER GIARDIA SCREEN,FECAL Routine 09/25/2018 12:02 AM LAST [facility]ER CULTURE-FECES Routine 09/25/2018 W/SENSITIVITY 12:02 AM LAST SAW[facility]ER CRYPTOSPORIDUM,FECAL Routine 09/25/2018 12:02 AM LAST SAW[facility]ER POC GLUCOSE 09/24/2018 8:36 PM LAST SAW[facility]ER POC GLUCOSE 09/24/2018 6:05 PM LAST SAW[facility]ER URINE COLLECTION 09/24/2018 4:15 PM LAST SAW[facility]ER CELIAC SCREEN Routine 09/24/2018 3:20 PM LAST [facility]ER ELECTROPHORESIS-SERUM Routine 09/24/2018 PROTEIN 3:20 PM LAST SAWYER POC GLUCOSE 09/24/2018 12:30 PM LAST SAW[facility]ER POC GLUCOSE 09/24/2018 9:36 AM LAST [facility]ER SURGICAL PATHOLOGY 09/24/2018 9:30 AM LAST SAW[facility]ER IR PERCUTANEOUS BIOPSY Routine 09/24/2018 8:33 AM LAST SAW[facility]ER POC GLUCOSE 09/24/2018 8:03 AM LAST SAW[facility]ER PYRIDOXAL 5 PHOSPHATE Routine 09/24/2018 2:24 AM LAST SAW[facility]ER CBC AND DIFF Routine 09/24/2018 2:24 AM LAST [facility]ER COMPREHENSIVE METABOLIC Routine 09/24/2018 PANEL 2:24 AM LAST SA[facility]ER POC GLUCOSE 09/24/2018 2:23 AM LAST SAW[facility]ER POC GLUCOSE 09/23/2018 8:07 PM LAST SAW[facility]ER POC GLUCOSE 09/23/2018 4:13 PM LAST SA[facility]ER SWALLOW MOTION SERIES Routine 09/23/2018 3:39 PM LAST SAW[facility]ER POC GLUCOSE 09/23/2018 2:08 PM LAST SAW[facility]ER NM GASTRIC EMPTYING TIME Routine 09/23/2018 1:03 PM LAST [facility]ER POC GLUCOSE 09/23/2018 7:45 AM LAST SA[facility] C DIFFICILE BY PCR Routine 09/23/2018 6:30 AM LAST SAW[facility]ER POC GLUCOSE 09/23/2018 4:28 AM LAST SAW[facility]ER CBC AND DIFF Routine 09/23/2018 3:54 AM LAST [facility]ER COMPREHENSIVE METABOLIC Routine 09/23/2018 PANEL 3:54 AM LAST [facility]ER POC GLUCOSE 09/23/2018 2:40 AM LAST SAW[facility]ER POC GLUCOSE 09/23/2018 12:17 AM LAST SA[facility]ER POC GLUCOSE 09/22/2018 10:20 PM LAST SAW[facility]ER POC GLUCOSE 09/22/2018 8:28 PM LAST SAW[facility]ER POC GLUCOSE 09/22/2018 5:36 PM LAST SAW[facility]ER POC GLUCOSE 09/22/2018 5:06 PM LAST SAW[facility]ER POC GLUCOSE 09/22/2018 2:23 PM LAST [facility]ER MAGNESIUM Routine 09/22/2018 1:35 PM LAST SAW[facility]ER BASIC METABOLIC PANEL Routine 09/22/2018 1:35 PM LAST SAWYER POC GLUCOSE 09/22/2018 12:26 PM LAST SAW[facility]ER POC GLUCOSE 09/22/2018 9:44 AM LAST SA[facility]ER POC GLUCOSE 09/22/2018 7:23 AM LAST SAW[facility]ER POC GLUCOSE 09/22/2018 5:36 AM LAST SAW[facility]ER FLOW CYTOMETRY 09/22/2018 4:43 AM LAST [facility]ER LEUKEMIA-LYMPHOMA PANEL Routine 09/22/2018 BLOOD 4:43 AM LAST SAW[facility]ER CBC AND DIFF Routine 09/22/2018 4:43 AM LAST [facility] COMPREHENSIVE METABOLIC Routine 09/22/2018 PANEL 4:43 AM LAST [facility]ER POC GLUCOSE 09/22/2018 1:46 AM CDT POC GLUCOSE 09/21/2018 11:48 PM CDT POC GLUCOSE 09/21/2018 9:23 PM CDT POC GLUCOSE 09/21/2018 6:12 PM CDT POC GLUCOSE 09/21/2018 1:45 PM CDT POC GLUCOSE 09/21/2018 11:35 AM CDT POC GLUCOSE 09/21/2018 8:50 AM CDT POC GLUCOSE 09/21/2018 6:21 AM CDT CBC AND DIFF Routine 09/21/2018 3:55 AM CDT COMPREHENSIVE METABOLIC Routine 09/21/2018 PANEL 3:55 AM CDT POC GLUCOSE 09/21/2018 3:54 AM CDT POC GLUCOSE 09/21/2018 12:57 AM CDT POC GLUCOSE 09/20/2018 11:18 PM CDT POC GLUCOSE 09/20/2018 9:00 PM CDT POC GLUCOSE 09/20/2018 7:32 PM CDT SURGICAL PATHOLOGY 09/20/2018 5:32 PM CDT POC GLUCOSE 09/20/2018 5:01 PM CDT MAGNESIUM Routine 09/20/2018 5:00 PM CDT BASIC METABOLIC PANEL Routine 09/20/2018 5:00 PM CDT COLONOSCOPY 09/20/2018 3:17 PM CDT EGD REPORT 09/20/2018 2:51 PM CDT POC GLUCOSE 09/20/2018 2:37 PM CDT COLONOSCOPY EXCISION 09/20/2018 Loss of weight LESION 2:05 PM CDT Constant low-grade dysphagia COLONOSCOPY BIOPSY 09/20/2018 Loss of weight 2:05 PM CDT Constant low-grade dysphagia ESOPHAGOGASTRODUODENOSCOP 09/20/2018 Loss of weight Y BIOPSY 2:05 PM CDT Constant low-grade dysphagia COLONOSCOPY 09/20/2018 Loss of weight 2:05 PM CDT Constant low-grade dysphagia ESOPHAGOGASTRODUODENOSCOP 09/20/2018 Loss of weight Y 2:05 PM CDT Constant low-grade dysphagia POC GLUCOSE 09/20/2018 12:59 PM CDT POC GLUCOSE 09/20/2018 10:20 AM CDT POC GLUCOSE 09/20/2018 8:17 AM CDT POC GLUCOSE 09/20/2018 6:13 AM CDT CBC AND DIFF Routine 09/20/2018 3:10 AM CDT COMPREHENSIVE METABOLIC Routine 09/20/2018 PANEL 3:10 AM CDT POC GLUCOSE 09/20/2018 2:24 AM CDT ABDOMEN AP ONLY Routine 09/20/2018 1:45 AM CDT POC GLUCOSE 09/20/2018 12:05 AM CDT POC GLUCOSE 09/19/2018 10:00 PM CDT POC GLUCOSE 09/19/2018 8:14 PM CDT POC GLUCOSE 09/19/2018 5:51 PM CDT POC GLUCOSE 09/19/2018 3:51 PM CDT POC GLUCOSE 09/19/2018 1:49 PM CDT POC GLUCOSE 09/19/2018 11:52 AM CDT POC GLUCOSE 09/19/2018 10:17 AM CDT POC GLUCOSE 09/19/2018 8:15 AM CDT POC GLUCOSE 09/19/2018 6:22 AM CDT POC GLUCOSE 09/19/2018 5:23 AM CDT POC GLUCOSE 09/19/2018 5:07 AM CDT POC GLUCOSE 09/19/2018 4:49 AM CDT POC GLUCOSE 09/19/2018 4:32 AM CDT CBC AND DIFF Routine 09/19/2018 4:06 AM CDT COMPREHENSIVE METABOLIC Routine 09/19/2018 PANEL 4:06 AM CDT POC GLUCOSE 09/19/2018 4:01 AM CDT POC GLUCOSE 09/19/2018 3:47 AM CDT POC GLUCOSE 09/19/2018 3:36 AM CDT POC GLUCOSE 09/18/2018 7:[address] CHEST W CONTRAST Routine 09/18/2018 6:[address] NECK W/CONTRAST Routine 09/18/2018 6:19 PM CDT HIV-1/2 ANTIGEN/ANTIBODY Routine 09/18/2018 SCREEN 4:50 PM CDT HEPATITIS PANEL, ACUTE Routine 09/18/2018 4:50 PM CDT CONSULT IV THERAPY TEAM Routine 09/18/2018 4:40 PM CDT 2-D + DOPPLER Routine 09/18/2018 ECHOCARDIOGRAM 2:47 PM CDT POC GLUCOSE 09/18/2018 1:43 PM CDT POC GLUCOSE 09/18/2018 9:55 AM CDT URINALYSIS, MICROSCOPIC STAT 09/18/2018 6:10 AM CDT URINALYSIS DIPSTICK STAT 09/18/2018 6:10 AM CDT POC GLUCOSE 09/18/2018 4:41 AM CDT FREE T4-FREE THYROXINE Routine 09/18/2018 1:43 AM CDT TSH WITH FREE T4 REFLEX Routine 09/18/2018 1:43 AM CDT PERIPHERAL SMEAR Routine 09/18/2018 1:43 AM CDT SED RATE Routine 09/18/2018 1:43 AM CDT C REACTIVE PROTEIN (CRP) Routine 09/18/2018 1:43 AM CDT PHOSPHORUS Routine 09/18/2018 1:43 AM CDT MAGNESIUM Routine 09/18/2018 1:43 AM CDT HEMOGLOBIN A1C Routine 09/18/2018 1:43 AM CDT LIPID PROFILE Routine 09/18/2018 1:43 AM CDT BETA HYDROXYBUTYRATE STAT 09/17/2018 (KETONES) 9:39 PM CDT CBC AND DIFF STAT 09/17/2018 9:39 PM CDT LIPASE STAT 09/17/2018 9:39 PM CDT BLOOD GASES, PERIPHERAL STAT 09/17/2018 VENOUS 9:39 PM CDT COMPREHENSIVE METABOLIC STAT 09/17/2018 PANEL 9:39 PM CDT ECG 12-LEAD STAT 09/17/2018 8:43 PM CDT URINALYSIS, MICROSCOPIC Specimen 09/17/2018 in Lab 8:30 PM CDT URINALYSIS DIPSTICK Specimen 09/17/2018 in Lab 8:30 PM CDT ECG-SCAN 09/17/2018 8:15 PM CDT POC GLUCOSE 09/17/2018 6:49 PM CDT in this encounter Results * TELEMETRY STRIPS-SCAN (10/03/2018 2:01 PM LAST [facility]ER) Narrative Performed At Ordered by an unspecified provider. * POC GLUCOSE (09/27/2018 11:44 AM LAST SAWYER) Glucose, POC 227 (H) 70 - 100 MG/DL [facility] Performing Organization Address [facility] Phone Number [facility] [address] [place] [address] * PERIPHERAL SMEAR (09/27/2018 11:14 AM LAST SAWYER) Peripheral Smear NORMAL RBC COUNTS WITH [facility] ANISOCYTOSIS WHITE CELLS AND PLATELETS APPEAR NORMAL IN NUMBER AND MORPHOLOGY. CIRCULATING NEOPLASTIC B CELLS IN September SPECIMEN (FLOW REPORT [id number]) IS NOTED Pathologist Signature INTERPRETED BY LAURENCE RICHARDSON M.D. [facility] By the PATH SIGNATURE ABOVE, I attest that I have personally formulated the final interpretation expressed in this report and that the above diagnosis is based upon my examination of the slides and/or other material indicated in this report. Specimen Blood Performing Organization Address [facility] Phone Number [facility] [address] [place] [address] * DIRECT ANTIGLOBULIN TEST(TITO) (09/27/2018 11:14 AM LAST SAWYER) TITO, [employer] NEG [facility] Dash ABO/RH(D) A POS [facility] Specimen Blood Performing Organization Address [facility] Phone Number [facility] [address] [place] [address] * HAPTOGLOBIN (09/27/2018 11:14 AM LAST SAWYER) Haptoglobin 97 16 - 200 MG/DL [facility] Specimen Blood Performing Organization Address [facility] Phone Number [facility] [address] [place] [address] * LDH-LACTATE DEHYDROGENASE (09/27/2018 11:14 AM LAST SAW[facility]ER) Lactate Dehydrogenase 211 (H) 100 - 210 U/L [facility] Specimen Blood Performing Organization Address [facility] Phone Number [facility] [address] [place] [address] * POC GLUCOSE (09/27/2018 8:06 AM LAST SAWYER) Glucose, POC 186 (H) 70 - 100 MG/DL [facility] Performing Organization Address [facility] Phone Number [facility] [address] [place] [address] * COMPREHENSIVE METABOLIC PANEL (09/27/2018 4:03 AM LAST SAWYER) Sodium 139 137 - 147 MMOL/L [facility] Potassium 3.8 3.5 - 5.1 MMOL/L [facility] Chloride 105 98 - 110 MMOL/L [facility] Glucose 150 (H) 70 - 100 MG/DL [facility] Blood Urea Nitrogen 9 7 - 25 MG/DL [facility] Creatinine 0.76 0.4 - 1.00 MG/DL [facility] Calcium 8.3 (L) 8.5 - 10.6 MG/DL [facility] Total Protein 5.6 (L) 6.0 - 8.0 G/DL [facility] Total Bilirubin 0.2 (L) 0.3 - 1.2 MG/DL [facility] Albumin 3.4 (L) 3.5 - 5.0 G/DL [facility] Alk Phosphatase 52 25 - 110 U/L [facility] AST (SGOT) 12 7 - 40 U/L [facility] CO2 28 21 - 30 MMOL/L [facility] ALT (SGPT) 9 7 - 56 U/L [facility] [...] for questions. Specimen Blood Performing Organization Address [facility] Phone Number [facility] [address] [place] [address] * CBC AND DIFF (09/27/2018 4:03 AM LAST SAWYER) White Blood Cells 12.5 (H) 4.5 - 11.0 K/UL [facility] RBC 4.08 4.0 - 5.0 M/UL [facility] Hemoglobin 12.1 12.0 - 15.0 GM/DL [facility] Hematocrit 36.3 36 - 45 % [facility] MCV 89.0 80 - 100 FL [facility] MCH 29.6 26 - 34 PG [facility] MCHC 33.3 32.0 - 36.0 G/DL [facility] RDW 17.7 (H) 11 - 15 % [facility] Platelet Count 437 (H) 150 - 400 K/UL [facility] MPV 8.7 7 - 11 FL [facility] Segmented Neutrophils 40 (L) 41 - 77 % [facility] Lymphocytes 53 (H) 24 - 44 % [facility] Monocytes 4 4 - 12 % [facility] Eosinophil 2 0 - 5 % [facility] Basophil 1 0 - 2 % [facility] Normal RBC Morph NORMAL [facility] Platelet Estimate SLT INC [facility] Absolute Neutrophil Count 5.00 1.8 - 7.0 K/UL [facility] Manual Specimen Blood Performing Organization Address [facility] Phone Number [facility] [address] [place] [address] * POC GLUCOSE (09/26/2018 8:46 PM LAST SAWYER) Glucose, POC 179 (H) 70 - 100 MG/DL [facility] Performing Organization Address City/[facility] Phone Number [facility] [address] [place] [address] * POC GLUCOSE (09/26/2018 6:30 PM LAST SAWYER) Glucose, POC 202 (H) 70 - 100 MG/DL [facility] Performing Organization Address [facility] Phone Number [facility] [address] [place] [address] * SURGICAL PATHOLOGY (09/26/2018 5:17 PM LAST SAWYER) PATHOLOGY REPORT [facility] [employer] [facility] [email or web address] Department of Pathology and Laboratory Medicine [address] [place] [address] Surgical Pathology Office:[phone] :[phone] SURGICAL PATHOLOGY REPORT NAME: CHELSEA LIN SURG PATH #: [id number] MR #: [id number] SPECIMEN CLASS: SR BILLING #: [id number] ALT ID #:LOCATION: DISCHARGED DATE OF PROCEDURE: 09/26/2018 AGE:58 SEX: F DATE RECEIVED: 09/27/2018 : 1960TIME RECEIVED:08:55 PHYSICIAN: KYMBERLY ONEIL MD DATE OF REPORT: 09/30/2018 COPY TO:DATE [...] material indicated in this report. +++ +++ [facility]/09/27/2018 ############################## ############################## ############ Material Received: A: duodenal [...] [place]ges/09/27/2018 Performing Organization Address City/State/Zipcode Phone Number LAB RESULTS * FLOW CYTOMETRY (09/26/2018 5:14 PM LAST SAWYER) PATHOLOGY REPORT [facility] [email or web address] Dave Roberson MD, Director of Flow Cytometry Laboratory Department of Pathology and Laboratory Medicine [address] [place] [address] Surgical Pathology Office:[phone] :[phone] FLOW CYTOMETRY REPORT NAME: CHELSEA LIN SURG PATH #: [id number] MR #: [id number] SPECIMEN CLASS: LC BILLING #: [id number] ALT ID #:LOCATION: [id number] DATE OF PROCEDURE: 09/26/2018 AGE:58 SEX: F DATE RECEIVED: 09/26/2018 : 1960TIME RECEIVED:18:38 PHYSICIAN: KYMBERLY ONEIL MD DATE OF REPORT: 09/27/2018 [facility] TO: [facility] JUSTIN Sutton MD NATHAN M [...] Positive Cells): CD19=1; CD19+CD5+=1; CD20=1; CD23=1; CD23+CD5+=1; Norco=0; Lambda=1; Norco:Lambda ratio=na T Cell Associated Markers (% Positive Cells): CD2=93; CD3=85; CD4=15; CD5=80; CD7=94; CD8=65 CD4:CD8 ratio=0.2 Miscellaneous Markers (% Positive Cells): CD1d=0; CD10=0; CD34=0; CD38=57; LS80=263; CD56=35; FMC7=0; HW056=5 Cell Viability (%): 82 Number of Cells Analyzed:[id number] Total Number of Markers: 19 Summary of Marker Combinations: Norco/Lambda/5/19/38/45/10/20; FMC7/23/200/34/1d/45/04/06; 2/7/5/3/4/45/56/8 This test was developed and its performance characteristics determined by the [facility] Flow Cytometry Laboratory.It has not been cleared or approved by the U.S. Food and Drug Administration (FDA).The FDA has determined that such clearance or approval is not necessary. Performing Organization Address City/State/Zipcode Phone Number LAB RESULTS * FLOW CYTOMETRY (09/26/2018 5:14 PM LAST SAWYER) PATHOLOGY REPORT [facility] [email or web address] Dave Roberson MD, Director of Flow Cytometry Laboratory Department of Pathology and Laboratory Medicine [address] [place] [address] Surgical Pathology Office:[phone] :[phone] FLOW CYTOMETRY REPORT NAME: CHELSEA LIN SURG PATH #: [id number] MR #: [id number] SPECIMEN CLASS: LC BILLING #: [id number] ALT ID #:LOCATION: [id number] DATE OF PROCEDURE: 09/26/2018 AGE:58 SEX: F DATE RECEIVED: 09/26/2018 : 1960TIME RECEIVED:18:37 PHYSICIAN: KYMBERLY ONEIL MD DATE OF REPORT: 09/27/2018 COPY TO: [facility] JUSTIN Sutton MD NATHAN M SANDERSE, MD DATE OF PRINTIN09/27/2018 Material Received: A: duodenum biopsy History: 58-year-old female ############################## ############################## ############ Final Diagnosis: Duodenum biopsy, flow cytometry: Negative immunophenotypic study Interpretation: Lymphocytes comprise 75% of total events.The majority are T cells with a reduced CD4:CD8 ratio and normal antigen expression.B cells are polyclonal with normal antigen expression.There is no immunophenotypic evidence of non-Hodgkin lymphoma. Attestation: By this signature, I attest that I have personally formulated the final interpretation expressed in this report and that the above diagnosis is based upon my examination of the slides and/or other material indicated in this report. +++Electronically Signed Out By+++ njr/09/26/2018 Interpreted by: Dave Roberson MD 09/27/2018 ############################## ############################## ############ Lab Data: Flow Cytometry - Lymphoma Panel B Cell Associated Markers (% Positive Cells): CD19=2; CD19+CD5+=0; CD20=2; CD23=0; CD23+CD5+=0; Norco=1; Lambda=1; Norco:Lambda ratio=1.0 T Cell Associated Markers (% Positive Cells): CD2=91; CD3=90; CD4=27; CD5=86; CD7=92; CD8=70 CD4:CD8 ratio=0.4 Miscellaneous Markers (% Positive Cells): CD1d=1; CD10=0; CD34=0; CD38=83; UP33=695; CD56=19; FMC7=1; GJ163=7 Cell Viability (%): 94 Number of Cells Analyzed:[id number] Total Number of Markers: 19 Summary of Marker Combinations: Norco/Lambda/5/19/38/45/10/20; FMC7/23/200/34/1d/45//; 2/7/5/3/4/45/56/8 This test was developed and its performance characteristics determined by the [facility] Flow Cytometry Laboratory.It has not been cleared or approved by the U.S. Food and Drug Administration (FDA).The FDA has determined that such clearance or approval is not necessary. Performing Organization Address City/[facility] Phone Number LAB RESULTS * LEUKEMIA/LYMPHOMA PANEL FLUID/TISSUE (09/26/2018 5:14 PM LAST SAWYER) Leuk/Lymph Interpretation SEE PATHOLOGY REPORT MAIN LAB Specimen/LLM TISSUE MAIN LAB Specimen Tissue Performing Organization Address [facility] Phone Number [facility] [address] [place] [address] * LEUKEMIA/LYMPHOMA PANEL FLUID/TISSUE (09/26/2018 5:14 PM LAST SAWYER) Leuk/Lymph Interpretation SEE PATHOLOGY REPORT MAIN LAB Specimen/LLM TISSUE MAIN LAB Specimen Tissue Performing Organization Address [facility] Phone Number [facility] [address] [place] [address] * POC GLUCOSE (09/26/2018 4:06 PM LAST SAWYER) Glucose, POC 185 (H) 70 - 100 MG/DL MAIN LAB Performing Organization Address City/State/Zipcode Phone Number [facility] [address] [place] [address] * EGD REPORT (09/26/2018 3:43 PM LAST SAWYER) Provation Report Patient Name: Issa OSWALD OTHER RESULTS [place] Procedure Date: 09/26/2018 3:43 PM CSN: [id number] Date of : 1960 Gender: Female Attending Physician: Kymberly Oneil MD Procedure: Upper GI endoscopy Indications: Generalized abdominal pain Providers: Kymberly Oneil MD (Doctor), Ghazal hRodes RN (Nurse), Tushar Vergara (Forensic Document Examiner) Referring Physician: Pauly Morrison Medications: Monitored Anesthesia Care Complications: No [...] 12 seconds Procedure Code(s): --- Professional --- 74804, Esophagogastroduodenoscopy, flexible, transoral; with biopsy, single or multiple Diagnosis Code(s): --- Professional --- K31.89, Other diseases of stomach and duodenum R10.84, Generalized abdominal pain CPT copyright 2016 [employer]. All rights reserved. The codes documented in this report are preliminary and upon dining room helper review may be revised to meet current [...] CT ABD/PELV W CONTRAST (09/26/2018 12:14 PM LAST SAWYER) Impressions Performed At 1. No abdominopelvic inflammatory [...] Interface, Radiant Results - 09/26/2018 12:[address] ABDOMEN AND PELVIS Clinical Indication: Female, [...] on 09/26/2018 12:18 PM. Performing Organization Address City/State/Zipcode Phone Number RAD RESULTS * POC GLUCOSE (09/26/2018 11:16 AM LAST SAWYER) Glucose, POC 164 (H) 70 - 100 MG/DL [facility] Performing Organization Address [facility] Phone Number [facility] [address] [place] [address] * POC GLUCOSE (09/26/2018 8:18 AM LAST SAWYER) Glucose, POC 228 (H) 70 - 100 MG/DL [facility] Performing Organization Address [facility] Phone Number [facility] [address] [place] [address] * COMPREHENSIVE METABOLIC PANEL (09/26/2018 4:00 AM LAST SAWYER) Sodium 138 137 - 147 MMOL/L [facility] Potassium 4.3 3.5 - 5.1 MMOL/L [facility] Chloride 103 98 - 110 MMOL/L [facility] Glucose 218 (H) 70 - 100 MG/DL [facility] Blood Urea Nitrogen 8 7 - 25 MG/DL [facility] Creatinine 0.76 0.4 - 1.00 MG/DL [facility] Calcium 8.9 8.5 - 10.6 MG/DL [facility] Total Protein 6.0 6.0 - 8.0 G/DL [facility] Total Bilirubin 0.3 0.3 - 1.2 MG/DL [facility] Albumin 3.8 3.5 - 5.0 G/DL [facility] Alk Phosphatase 54 25 - 110 U/L [facility] AST (SGOT) 13 7 - 40 U/L [facility] [...] for questions. Specimen Blood Performing Organization Address City/[facility]/Zipcode Phone Number MAIN LAB [address] [place] [address] * CBC AND DIFF (09/26/2018 4:00 AM LAST SAWYER) White Blood Cells 13.0 (H) 4.5 - 11.0 K/UL [facility] RBC 4.19 4.0 - 5.0 M/UL [facility] Hemoglobin 12.3 12.0 - 15.0 GM/DL [facility] Hematocrit 37.5 36 - 45 % [facility] MCV 89.4 80 - 100 FL [facility] MCH 29.3 26 - 34 PG [facility] MCHC 32.8 32.0 - 36.0 G/DL [facility] RDW 17.8 (H) 11 - 15 % [facility] Platelet Count 414 (H) 150 - 400 K/UL [facility] MPV 8.9 7 - 11 FL [facility] Neutrophils 28 (L) 41 - 77 % [facility] Lymphocytes 62 (H) 24 - 44 % [facility] Monocytes 5 4 - 12 % [facility] Eosinophils 4 0 - 5 % [facility] Basophils 1 0 - 2 % [facility] Absolute Neutrophil Count 3.70 1.8 - 7.0 K/UL [facility] Absolute Lymph Count 8.00 (H) 1.0 - 4.8 K/UL [facility] Absolute Monocyte Count 0.70 0 - 0.80 K/UL [facility] Absolute Eosinophil Count 0.50 (H) 0 - 0.45 K/UL [facility] Absolute Basophil Count 0.10 0 - 0.20 K/UL [facility] Specimen Blood Performing Organization Address City/[facility]/Zipcode Phone Number MAIN LAB [address] [place] [address] * IRON + BINDING CAPACITY + %SAT+ FERRITIN (09/26/2018 4:00 AM LAST [facility]) Iron 41 (L) 50 - 160 MCG/DL MAIN LAB Iron Binding-TIBC 323 270 - 380 MCG/DL [facility] % Saturation 13 (L) 28 - 42 % [facility] Ferritin 22 10 - 200 NG/ML MAIN LAB Specimen Blood Performing Organization Address [facility] Phone Number MA[facility] LAB [address] [place] [address] * URIC ACID (09/26/2018 4:00 AM LAST [facility]) Uric Acid <1.5 (L) 2.0 - 7.0 MG/DL MAIN LAB Specimen Blood Performing Organization Address [facility] Phone Number MAIN LAB [address] [place] [address] * LDH-LACTATE DEHYDROGENASE (09/26/2018 4:00 AM LAST [facility]) Lactate Dehydrogenase 218 (H) 100 - 210 U/L MAIN LAB Specimen Blood Performing Organization Address [facility] Phone Number [facility] [address] [place] [address] * HEPATITIS B CORE AB TOT (IGG+IGM) (09/26/2018 4:00 AM LAST [facility]) Anti HBc Total NEG MAIN LAB Specimen Blood Performing Organization Address [facility] Phone Number MAIN LAB [address] [place] [address] * POC GLUCOSE (09/25/2018 9:18 PM LAST [facility]) Glucose, POC 128 (H) 70 - 100 MG/DL [facility] MAIN LAB Performing Organization Address [facility] Phone Number MAIN LAB [address] [place] [address] * POC GLUCOSE (09/25/2018 5:29 PM LAST SAWYER) Glucose, POC 258 (H) 70 - 100 MG/DL [facility] MAIN [facility] Performing Organization Address [facility] Phone Number [facility] LAB [address] [place] [address] * POC GLUCOSE (09/25/2018 3:57 PM LAST SAWYER) Glucose, POC 302 (H) 70 - 100 MG/DL [facility] MAIN [facility] Performing Organization Address [facility]/Zipcode Phone Number [facility] MAIN LAB [address] [place] [address] * ECG-SCAN (09/25/2018 1:00 PM LAST SAWYER) Narrative Performed At Ordered by an unspecified provider. * POC GLUCOSE (09/25/2018 12:22 PM LAST SAWYER) Glucose, POC 413 (H) 70 - 100 MG/DL [facility] MAIN [facility] Performing Organization Address [facility] Phone Number [facility] MAIN [facility] [address] [place] [address] * POC GLUCOSE (09/25/2018 8:22 AM LAST SAWYER) Glucose, POC 181 (H) 70 - 100 MG/DL [facility] MAIN [facility] Performing Organization Address [facility] Phone Number MAIN LAB [address] [place] [address] * COMPREHENSIVE METABOLIC PANEL (09/25/2018 3:19 AM LAST SAWYER) Sodium 137 137 - 147 MMOL/L [facility] MAIN LAB Potassium 3.8 3.5 - 5.1 MMOL/L [facility] MAIN [facility] Chloride 103 98 - 110 MMOL/L [facility] MAIN LAB Glucose 135 (H) 70 - 100 MG/DL KU [...] 5.0 G/DL [facility] MAIN [facility] Alk Phosphatase 48 25 - 110 U/L [facility] MAIN [facility] AST (SGOT) 13 7 - 40 U/L [facility] MAIN LAB [...] for questions. Specimen Blood Performing Organization Address City/[facility]/Zipcode Phone Number MAIN LAB [address] [place] [address] * CBC AND DIFF (09/25/2018 3:19 AM LAST SAWYER) White Blood Cells 10.5 4.5 - 11.0 K/UL MAIN LAB RBC 3.78 (L) 4.0 - 5.0 M/UL MAIN LAB Hemoglobin 11.0 (L) 12.0 - 15.0 GM/DL MAIN LAB Hematocrit 33.4 (L) 36 - 45 % MAIN LAB MCV 88.5 80 - 100 FL MAIN LAB MCH 29.0 26 - 34 PG MAIN LAB MCHC 32.8 32.0 - 36.0 G/DL MAIN LAB RDW 17.6 (H) 11 - 15 % [facility] MAIN LAB Platelet Count 325 150 - 400 K/UL MAIN LAB MPV 8.6 7 - 11 FL MAIN LAB Neutrophils 25 (L) 41 - 77 % [facility] MAIN [facility] Lymphocytes 65 (H) 24 - 44 % MAIN LAB Monocytes 5 4 - 12 % MAIN LAB Eosinophils 4 0 - 5 % MAIN LAB Basophils 1 0 - 2 % [facility] MAIN LAB Absolute Neutrophil Count 2.60 1.8 - 7.0 K/UL [facility] MAIN LAB Absolute Lymph Count 6.90 (H) 1.0 - 4.8 K/UL MAIN LAB Absolute Monocyte Count 0.60 0 - 0.80 K/UL MAIN LAB Absolute Eosinophil Count 0.40 0 - 0.45 K/UL MAIN LAB Absolute Basophil Count 0.10 0 - 0.20 K/UL MAIN LAB Specimen Blood Performing Organization Address City/[facility]/Zipcode Phone Number MAIN LAB [address] [place] [address] * GIARDIA SCREEN,FECAL (09/25/2018 12:02 AM LAST SAWYER) Battery Name GIARDIA SCREEN MAIN LAB Specimen Description FECES MAIN LAB Special Requests NONE MAIN LAB Giardia EIA NEGATIVE FOR GIARDIA (LAMBLIA) MAIN LAB INTESTINALIS Report Status FINAL MAIN LAB 09/25/2018 Specimen Feces Performing Organization Address City/[facility]/Zipcode Phone Number MAIN LAB [address] [place] [address] * CRYPTOSPORIDUM,FECAL (09/25/2018 12:02 AM LAST SAWYER) Battery Name CRYPTOSPORIDIUM MAIN LAB Specimen Description FECES MAIN LAB Special Requests NONE MAIN LAB Cryptosporidium NEGATIVE FOR CRYPTOSPORIDIUM MAIN LAB Report Status FINAL MAIN LAB 09/25/2018 Specimen Feces Performing Organization Address [facility] Phone Number MAIN LAB [address] [place] [address] * CULTURE-FECES W/SENSITIVITY (09/25/2018 12:02 AM LAST SAWYER) Battery Name STOOL CULTURE MAIN LAB Specimen Description FECES MAIN LAB Special Requests NONE MAIN LAB Culture NO SALMONELLA, SHIGELLA, MAIN LAB CAMPYLOBACTER, AEROMONAS, OR PLESIOMONAS SHIGA TOXIN NOT DETECTED Report Status FINAL MAIN LAB 09/28/2018 Specimen Stool - Feces Performing Organization Address [facility] Phone Number MAIN LAB [address] [place] [address] * OVA AND PARASITES, FECAL (09/25/2018 12:02 AM LAST SAWYER) Battery Name OVA AND PARASITES MAIN LAB Specimen Description FECES MAIN LAB Special Requests NONE MAIN LAB Ova & Parasites SEE RESULTS OF GIARDIA AND MAIN LAB CRYPTOSPORIDIUM ANTIGENS BY EIA. THE ANTIGEN DETECTION ASSAY IS MORE SENSITIVE FOR THESE PARASITES. PLEASE CONTACT THE MICROBIOLOGY LAB AT [phone] TO REQUEST FURTHER PARASITE TESTING. Report Status FINAL MAIN LAB 09/25/2018 Specimen Stool - Feces Performing Organization Address [facility] Phone Number MAIN LAB [address] [place] [address] * POC GLUCOSE (09/24/2018 8:36 PM LAST SAWYER) Glucose, POC 109 (H) 70 - 100 MG/DL MAIN LAB Performing Organization Address [facility]/Zipcode Phone Number MAIN LAB [address] [place] [address] * POC GLUCOSE (09/24/2018 6:05 PM LAST SAWYER) Glucose, POC 209 (H) 70 - 100 MG/DL MAIN LAB Performing Organization Address [facility]/Zipcode Phone Number MAIN LAB [address] [place] [address] * URINE COLLECTION (09/24/2018 4:15 PM LAST SAWYER) Collection Period, Urine 24.0 [facility] MAIN LAB Volume, Urine 1,146 MLS [facility]IN [facility] Performing Organization Address [facility] Phone Number [facility] MAIN [facility] [address] [place] [address] * CELIAC SCREEN (09/24/2018 3:20 PM LAST SAWYER) TTG IgA <0.5 <15 U/mL [facility] MAIN LAB Interpretation NORMAL [facility] MAIN [facility] Specimen Blood Performing Organization Address [facility] Phone Number [facility] MAIN LAB [address] [place] [address] * ELECTROPHORESIS-SERUM PROTEIN (09/24/2018 3:20 PM LAST SAWYER) Total Protein-SEP 5.0 (L) 6.0 - 8.0 G/DL [facility] MAIN LAB Albumin % 63.6 48 - 68 % [facility] MAIN [facility] Alpha 1 % 4.7 2 - 6 % [facility] MAIN [facility] Alpha 2 % 11.4 5 - 15 % [facility] MAIN [facility] Beta %,Serum 9.8 9 - 17 % [facility] MAIN [facility] Gamma % 10.5 9 - 21 % [facility] MAIN LAB Interpretation - SEP HYPOALBUMINEMIA [facility] MAIN LAB HYPOGAMMAGLOBULINEMIA Pathologist Signature INTERPRETED BY LAURENCE RICHARDSON M.D. MAIN LAB By the PATH SIGNATURE ABOVE, I attest that I have personally formulated the final interpretation expressed in this report and that the above diagnosis is based upon my examination of the slides and/or other material indicated in this report. Specimen Blood Performing Organization Address [facility] Phone Number MAIN LAB [address] [place] [address] * POC GLUCOSE (09/24/2018 12:30 PM LAST SAWYER) Glucose, POC 334 (H) 70 - 100 MG/DL [facility] MAIN [facility] Performing Organization Address [facility]/Zipcode Phone Number [facility] MAIN LAB [address] [place] [address] * POC GLUCOSE (09/24/2018 9:36 AM LAST SAWYER) Glucose, POC 187 (H) 70 - 100 MG/DL [facility] MAIN [facility] Performing Organization Address [facility] Phone Number [facility] MA[facility] [address] [place] [address] * SURGICAL PATHOLOGY (09/24/2018 9:30 AM LAST SAWYER) PATHOLOGY REPORT [facility] [employer] [email or web address] Department of Pathology and Laboratory Medicine [address] [place] [address] Surgical Pathology Office:[phone] :[phone] SURGICAL PATHOLOGY REPORT NAME: CHELSEA LIN SURG PATH #: [id number] MR #: [id number] SPECIMEN CLASS: SR BILLING #: [id number] ALT ID #:LOCATION: DISCHARGED DATE OF PROCEDURE: 09/24/2018 AGE:58 SEX: F DATE RECEIVED: 09/24/2018 : 1960TIME RECEIVED:09:30 PHYSICIAN: JUSTIN MAGDALENO MD DATE OF REPORT: 09/27/2018 COPY TO:DATE OF PRINTIN09/27/2018 ############################## ############################## ############ Final Diagnosis: A. Lymph node, "left axillary lymph node", needle core biopsy: Small Lymphocytic lymphoma/CLL. See comment. Comment: The normal lymph node architecture is effaced by solid sheets of small, monotonous lymphocytes. Immunohistochemistry performed on the biopsy specimen shows that the cells are positive for CD20 and CD5 and negative for Cyclin D1. The Ki-67 proliferation rate is approximately 5%. CD3 highlights scattered T lymphocytes. These findings are consistent with a diagnosis of small lymphocytic lymphoma/CLL. Attestation: By this signature, I attest that I have personally formulated the final interpretation expressed in this report and that the above diagnosis is based upon my examination of the slides and/or other material indicated in this report. +++ +++ Anabell Simms MD ksw/09/25/2018 ############################## ############################## ############ Material Received: A: left axillary lymph node History: 58-year-old female with history of lymphadenopathy and lymphocytosis, with peripheral blood flow cytometry reporting phenotypic findings in the peripheral blood compatible with CLL. Gross Description: A. Received in formalin, labeled with the patient's name and "left axillary lymph node" is a 1.0 x 0.1 x 0.1 cm aggregate of two to three yiql-[id number]-[id number] cylindrical soft tissue fragments. The specimen is filtered and entirely submitted in cassette A1. (tn) 09/24/2018 If immunohistochemical stains and/or in situ hybridization are cited in this report, the performance characteristics were determined by the Department of Pathology and Laboratory Medicine of the [facility] ([employer] [facility]) in compliance with CLIA'88 regulations.Some of these tests rely on the use of "analyte specific reagents" and are subject to specific labeling requirements by the FDA. Known positive and negative control tissues demonstrate appropriate staining.Results should be interpreted with caution given the likelihood of false negativity on decalcified specimens.This testing was developed by the Department of Pathology and Laboratory Medicine of the [facility].It has not been cleared or approved by the FDA.The FDA has determined that such clearance or approval is not necessary. Performing Organization Address City/State/Zipcode Phone Number [facility] LAB RESULTS * IR PERCUTANEOUS BIOPSY (09/24/2018 8:33 AM LAST SAWYER) Impressions Performed At Successful ultrasound-guided biopsy of left axillary lymphadenopathy. [facility] RAD RESULTS I, Elie Contreras M.D, the attending radiologist, was present for the critical and ortega portions of the procedure with a midlevel, resident, and/or fellow participating.Overlapping portions were non ortega and I was immediately available.I interpret the critical and ortega portion of this procedure to have been axillary lymph node biopsy. @TT Approved by Roldan Reyes M.D. on 09/25/2018 10:18 AM By my electronic signature, I attest that I have personally reviewed the images for this examination and formulated the interpretations and opinions expressed in this report Finalized by ELIE CONTRERAS on 09/25/2018 12:16 PM. Dictated by Roldan Reyes M.D. on 09/25/2018 10:16 AM. Narrative Performed At Ultrasound guided biopsy of left axillary lymphadenopathy: [facility] RAD RESULTS Clinical Indication: Lymphadenopathy of unknown origin Findings/Technique: A brief history and physical was obtained and appropriate imaging studies were reviewed, if available. An explanation of the procedure was provided to the patient including risks and benefits. Written informed consent was obtained. The patient was placed on the exam table in supine position. The left axilla was prepped and draped in usual sterile fashion. Ultrasound was used to identify the enlarged lymph node in the left axilla. Lidocaine was injected into the subcutaneous soft tissues over this area. An 18-gauge needle was then advanced into the lymph node under ultrasound guidance. 3 separate core samples was sent to laboratory for analysis. The patient tolerated the procedure well and left the department in stable condition. Medications: I was personally responsible for the administration of moderate sedation services during the procedure performed and I confirm requirements described in CPT section on moderate sedation were followed, including the use of an independent trained observer who had no other duties during the procedure.The drug(s) utilized were Versed and fentanyl. Procedure Note Interface, Radiant Results - 09/25/2018 12:19 PM LAST SAWYER Ultrasound guided biopsy of left axillary lymphadenopathy: Clinical Indication: Lymphadenopathy of unknown origin Findings/Technique: A brief history and physical was obtained and appropriate imaging studies were reviewed, if available. An explanation of the procedure was provided to the patient including risks and benefits. Written informed consent was obtained. The patient was placed on the exam table in supine position. The left axilla was prepped and draped in usual sterile fashion. Ultrasound was used to identify the enlarged lymph node in the left axilla. Lidocaine was injected into the subcutaneous soft tissues over this area. An 18-gauge needle was then advanced into the lymph node under ultrasound guidance. 3 separate core samples was sent to laboratory for analysis. The patient tolerated the procedure well and left the department in stable condition. Medications: I was personally responsible for the administration of moderate sedation services during the procedure performed and I confirm requirements described in CPT section on moderate sedation were followed, including the use of an independent trained observer who had no other duties during the procedure. The drug(s) utilized were Versed and fentanyl. IMPRESSION Successful ultrasound-guided biopsy of left axillary lymphadenopathy. Elie Boyd M.D, the attending radiologist, was present for the critical and ortega portions of the procedure with a midlevel, resident, and/or fellow participating. Overlapping portions were non ortega and I was immediately available. I interpret the critical and ortega portion of this procedure to have been axillary lymph node biopsy. @ Approved by Roldan Reyes M.D. on 09/25/2018 10:18 AM By my electronic signature, I attest that I have personally reviewed the images for this examination and formulated the interpretations and opinions expressed in this report Finalized by ELIE CONTRERAS on 09/25/2018 12:16 PM. Dictated by Roldan Reyes M.D. on 09/25/2018 10:16 AM. Performing Organization Address City/State/Zipcode Phone Number RAD RESULTS * POC GLUCOSE (09/24/2018 8:03 AM LAST SAWYER) Glucose, POC 198 (H) 70 - 100 MG/DL MAIN LAB Performing Organization Address City/[facility]/Zipcode Phone Number MAIN LAB [address] [place] [address] * COMPREHENSIVE METABOLIC PANEL (09/24/2018 2:24 AM LAST SAWYER) Sodium 137 137 - 147 MMOL/L [facility] MAIN LAB Potassium 3.5 3.5 - 5.1 MMOL/L [facility] MAIN LAB Chloride 103 98 - 110 MMOL/L [facility] MAIN LAB Glucose 154 (H) 70 - 100 MG/DL K[facility] MAIN [...] 5.0 G/DL [facility] MAIN LAB Alk Phosphatase 46 25 - 110 U/L [facility] MAIN LAB AST (SGOT) 8 7 - 40 U/L [facility] MAIN LAB [...] for questions. Specimen Blood Performing Organization Address [facility]/Zipcode Phone Number MARG[facility] [address] [place] [phone] * CBC AND DIFF (09/24/2018 2:24 AM LAST SAWYER) White Blood Cells 10.4 4.5 - 11.0 K/UL MAIN LAB RBC 4.01 4.0 - 5.0 M/UL MAIN LAB Hemoglobin 11.7 (L) 12.0 - 15.0 GM/DL MAIN LAB Hematocrit 35.7 (L) 36 - 45 % [facility] MAIN LAB MCV 89.0 80 - 100 FL MAIN LAB MCH 29.2 26 - 34 PG [facility] MCHC 32.8 32.0 - 36.0 G/DL MAIN LAB RDW 17.4 (H) 11 - 15 % [facility] MAIN LAB Platelet Count 287 150 - 400 K/UL MAIN LAB MPV 8.8 7 - 11 FL MAIN LAB Neutrophils 31 (L) 41 - 77 % [facility] MAIN LAB Lymphocytes 59 (H) 24 - 44 % [facility] MAIN LAB Monocytes 5 4 - 12 % MAIN LAB Eosinophils 4 0 - 5 % MAIN LAB Basophils 1 0 - 2 % [facility] MAIN LAB Absolute Neutrophil Count 3.20 1.8 - 7.0 K/UL [facility] MAIN LAB Absolute Lymph Count 6.20 (H) 1.0 - 4.8 K/UL [facility] MAIN LAB Absolute Monocyte Count 0.50 0 - 0.80 K/UL MAIN LAB Absolute Eosinophil Count 0.40 0 - 0.45 K/UL MAIN LAB Absolute Basophil Count 0.10 0 - 0.20 K/UL [facility] LAB Specimen Blood Performing Organization Address City/[facility]/Zipcode Phone Number MARGRET MAIN LAB [address] [place] [address] * PYRIDOXAL 5 PHOSPHATE (09/24/2018 2:24 AM LAST SAWYER) Pyridoxal 5 Phosphate <2 REFERENCE LAB Reference range: 5 to 50 Unit: mcg/L ADDITIONAL INFORMATION This test was developed and its performance characteristics determined by [facility] in a manner consistent with CLIA requirements. This test has not been cleared or approved by the U.S. Food and Drug Administration. [facility], [address], [place] [address] (L) Specimen Blood Performing Organization Address City/[facility] Phone Number REFERENCE LAB REFERENCE LAB See results for address. * POC GLUCOSE (09/24/2018 2:23 AM LAST SAWYER) Glucose, POC 144 (H) 70 - 100 MG/DL [facility] MAIN LAB Performing Organization Address [facility] Phone Number [facility] MAIN LAB [address] [place] [address] * POC GLUCOSE (09/23/2018 8:07 PM LAST SAWYER) Glucose, POC 295 (H) 70 - 100 MG/DL [facility] MAIN LAB Performing Organization Address [facility] Phone Number [facility] MAIN LAB [address] [place] [address] * POC GLUCOSE (09/23/2018 4:13 PM LAST SAWYER) Glucose, POC 237 (H) 70 - 100 MG/DL MAIN LAB Performing Organization Address [facility] Phone Number [facility] MAIN LAB [address] [place] [address] * SWALLOW MOTION SERIES (09/23/2018 3:39 PM LAST SAWYER) Impressions Performed At 1. Laryngeal penetration with thin and nectar consistency barium without [facility] RAD RESULTS aspiration. 2. Please see separately dictated report from the Department of Speech Pathology for further description. Approved by Tiffani Pineda M.D. on 09/23/2018 4:27 PM By my electronic signature, I attest that I have personally reviewed the images for this examination and formulated the interpretations and opinions expressed in this report Finalized by Leonel Maradiaga D.O. on 09/23/2018 10:49 PM. Dictated by Tiffani Pineda M.D. on 09/23/2018 3:50 PM. Narrative Performed At SWALLOW MOTION SERIES [facility] RAD RESULTS CLINICAL HISTORY: 58-year-old female, dysphagia. TECHNIQUE: The procedure was performed in conjunction with members of the department of speech pathology. Video fluoroscopy was performed during swallowing of various consistencies of barium. The patient tolerated the procedure well and left the department in stable condition. TOTAL FLUOROSCOPY TIME: 80 seconds FINDINGS: Laryngeal penetration with thin and nectar consistency barium. No aspiration with all tested consistencies of barium. Procedure Note Interface, Radiant Results - 09/23/2018 10:52 PM LAST SAWYER SWALLOW MOTION SERIES CLINICAL HISTORY: 58-year-old female, dysphagia. TECHNIQUE: The procedure was performed in conjunction with members of the department of speech pathology. Video fluoroscopy was performed during swallowing of various consistencies of barium. The patient tolerated the procedure well and left the department in stable condition. TOTAL FLUOROSCOPY TIME: 80 seconds FINDINGS: Laryngeal penetration with thin and nectar consistency barium. No aspiration with all tested consistencies of barium. IMPRESSION 1. Laryngeal penetration with thin and nectar consistency barium without aspiration. 2. Please see separately dictated report from the Department of Speech Pathology for further description. Approved by Tiffani Pineda M.D. on 09/23/2018 4:27 PM By my electronic signature, I attest that I have personally reviewed the images for this examination and formulated the interpretations and opinions expressed in this report Finalized by Leonel Maradiaga D.O. on 09/23/2018 10:49 PM. Dictated by Tiffani Pineda M.D. on 09/23/2018 3:50 PM. Performing Organization Address City/State/Zipcode Phone Number [facility] RAD RESULTS * POC GLUCOSE (09/23/2018 2:08 PM LAST SAWYER) Glucose, POC 308 (H) 70 - 100 MG/DL [facility] MAIN LAB Performing Organization Address City/[facility]/Zipcode Phone Number MAIN LAB [address] [place] [address] * NM GASTRIC EMPTYING TIME (09/23/2018 1:03 PM LAST SAWYER) Impressions Performed At Delayed gastric emptying times. [facility] RAD RESULTS Approved by Damian Fisher M.D. on 09/23/2018 2:31 PM By my electronic signature, I attest that I have personally reviewed the images for this examination and formulated the interpretations and opinions expressed in this report Finalized by Davey Aguilera M.D. on 09/23/2018 2:33 PM. Dictated by Damian Fisher M.D. on 09/23/2018 2:29 PM. Narrative Performed At GASTRIC EMPTYING TIME [facility] RAD RESULTS CLINICAL HISTORY: 58-year-old female. Evaluate for gastroparesis. Abdominal pain. Dysphasia. Nausea and vomiting. COMPARISON: Abdomen AP September 20, 2018. CT abdomen pelvis September 16, 2018. RADIOPHARMACEUTICAL: 1 mCi IV Technetium-99m sulfur colloid TECHNIQUE: Prior to the exam, the equivalent of two scrambled eggs were labelled by combining egg beaters and Tc-99m sulfur colloid. The patient ingested the standard test dose meal consisting of the labelled eggs, toast, jelly and 4 ounces of water. Multiplanar images were obtained in the standing position over the patient's abdomen at zero, one, two, three, and four hours. The percent gastric geometric mean retention was then calculated. FINDINGS: At one hour, the percent retention was 93% (Normal 34.8% to 91%) At two hours, the percent retention was 88% (Normal 2.7% to 60%) At three hours, the percent retention was 80% (Normal 0.5% to 28%) At four hours, the percent retention was 69% (Normal 0% to 10%) Procedure Note Interface, Radiant Results - 09/23/2018 2:36 PM LAST SAWYER GASTRIC EMPTYING TIME CLINICAL HISTORY: 58-year-old female. Evaluate for gastroparesis. Abdominal pain. Dysphasia. Nausea and vomiting. COMPARISON: Abdomen AP September 20, 2018. CT abdomen pelvis September 16, 2018. RADIOPHARMACEUTICAL: 1 mCi IV Technetium-99m sulfur colloid TECHNIQUE: Prior to the exam, the equivalent of two scrambled eggs were labelled by combining egg beaters and Tc-99m sulfur colloid. The patient ingested the standard test dose meal consisting of the labelled eggs, toast, jelly and 4 ounces of water. Multiplanar images were obtained in the standing position over the patient's abdomen at zero, one, two, three, and four hours. The percent gastric geometric mean retention was then calculated. FINDINGS: At one hour, the percent retention was 93% (Normal 34.8% to 91%) At two hours, the percent retention was 88% (Normal 2.7% to 60%) At three hours, the percent retention was 80% (Normal 0.5% to 28%) At four hours, the percent retention was 69% (Normal 0% to 10%) IMPRESSION Delayed gastric emptying times. Approved by Damian Fisher M.D. on 09/23/2018 2:31 PM By my electronic signature, I attest that I have personally reviewed the images for this examination and formulated the interpretations and opinions expressed in this report Finalized by Davey Aguilera M.D. on 09/23/2018 2:33 PM. Dictated by Damian Fisher M.D. on 09/23/2018 2:29 PM. Performing Organization Address City/[facility] Phone Number RAD RESULTS * POC GLUCOSE (09/23/2018 7:45 AM LAST SAWYER) Glucose, POC 257 (H) 70 - 100 MG/DL MAIN LAB Performing Organization Address [facility] Phone Number MAIN LAB [address] [place] [address] * C DIFFICILE BY PCR (09/23/2018 6:30 AM LAST SAWYER) Battery Name C DIFFICILE PCR MAIN LAB Specimen Description FECES MAIN LAB Special Requests NONE MAIN LAB C. Difficile Toxin B PCR NEGATIVE-wait 7 days to repeat MAIN LAB test Report Status FINAL MAIN LAB 09/23/2018 Specimen Feces Performing Organization Address [facility] Phone Number MAIN LAB [address] [place] [address] * POC GLUCOSE (09/23/2018 4:28 AM LAST SAWYER) Glucose, POC 258 (H) 70 - 100 MG/DL MAIN LAB Performing Organization Address [facility] Phone Number MAIN LAB [address] [place] [address] * COMPREHENSIVE METABOLIC PANEL (09/23/2018 3:54 AM LAST SAWYER) Sodium 137 137 - 147 MMOL/L MAIN LAB Potassium 4.1 3.5 - 5.1 MMOL/L MAIN LAB Chloride 101 98 - 110 MMOL/L [facility] LAB Glucose 281 (H) 70 - 100 MG/DL MAIN LAB Blood Urea Nitrogen 5 (L) 7 - 25 MG/DL [facility] MAIN LAB Creatinine 0.80 0.4 - 1.00 MG/DL MAIN LAB Calcium 8.9 8.5 - 10.6 MG/DL MAIN LAB Total Protein 5.7 (L) 6.0 - 8.0 G/DL MAIN LAB Total Bilirubin 0.3 0.3 - 1.2 MG/DL MAIN LAB Albumin 3.6 3.5 - 5.0 G/DL MAIN LAB Alk Phosphatase 57 25 - 110 U/L [facility] MAIN LAB AST (SGOT) 12 7 - 40 U/L [facility] MAIN LAB [...] for questions. Specimen Blood Performing Organization Address City/State[facility] Phone Number [facility] MAIN LAB [address] [place] [address] * CBC AND DIFF (09/23/2018 3:54 AM LAST SAWYER) White Blood Cells 10.6 4.5 - 11.0 K/UL [facility] MAIN LAB RBC 4.48 4.0 - 5.0 M/UL [facility] MAIN LAB Hemoglobin 12.9 12.0 - 15.0 GM/DL [facility] MAIN LAB Hematocrit 39.6 36 - 45 % [facility] MAIN LAB MCV 88.5 80 - 100 FL [facility] MAIN LAB MCH 28.9 26 - 34 PG [facility] MAIN LAB MCHC 32.7 32.0 - 36.0 G/DL [facility] MAIN LAB RDW 17.7 (H) 11 - 15 % [facility] MAIN LAB Platelet Count 309 150 - 400 K/UL [facility] MAIN LAB MPV 9.6 7 - 11 FL [facility] MAIN LAB Neutrophils 34 (L) 41 - 77 % [facility] MAIN LAB Lymphocytes 54 (H) 24 - 44 % [facility] MAIN LAB Monocytes 5 4 - 12 % [facility] MAIN LAB Eosinophils 6 (H) 0 - 5 % [facility] MAIN LAB Basophils 1 0 - 2 % [facility] MAIN LAB Absolute Neutrophil Count 3.60 1.8 - 7.0 K/UL [facility] MAIN LAB Absolute Lymph Count 5.70 (H) 1.0 - 4.8 K/UL [facility] MAIN LAB Absolute Monocyte Count 0.50 0 - 0.80 K/UL [facility] MAIN LAB Absolute Eosinophil Count 0.60 (H) 0 - 0.45 K/UL [facility] MAIN LAB Absolute Basophil Count 0.10 0 - 0.20 K/UL [facility] MAIN LAB Specimen Blood Performing Organization Address City/[facility] Phone Number MA[facility] LAB [address] [place] [address] * POC GLUCOSE (09/23/2018 2:40 AM LAST SAWYER) Glucose, POC 241 (H) 70 - 100 MG/DL [facility] MAIN LAB Performing Organization Address City/State/Zipcode Phone Number MAIN LAB [address] [place] [address] * POC GLUCOSE (09/23/2018 12:17 AM LAST SAWYER) Glucose, POC 248 (H) 70 - 100 MG/DL [facility] MAIN LAB Performing Organization Address City/State/Zipcode Phone Number MAIN LAB [address] [place] [address] * POC GLUCOSE (09/22/2018 10:20 PM LAST SAWYER) Glucose, POC 314 (H) 70 - 100 MG/DL [facility] MAIN LAB Performing Organization Address City/State/Zipcode Phone Number MAIN LAB [address] [place] [address] * POC GLUCOSE (09/22/2018 8:28 PM LAST SAWYER) Glucose, POC 276 (H) 70 - 100 MG/DL MAIN LAB Performing Organization Address City/State/Zipcode Phone Number MAIN LAB [address] [place] [address] * POC GLUCOSE (09/22/2018 5:36 PM LAST SAWYER) Glucose, POC 76 70 - 100 MG/DL [facility] MAIN LAB Performing Organization Address City/State/Zipcode Phone Number MAIN LAB [address] [place] [address] * POC GLUCOSE (09/22/2018 5:06 PM LAST SAWYER) Glucose, POC 94 70 - 100 MG/DL MAIN LAB Performing Organization Address City/State/Zipcode Phone Number MAIN LAB [address] [place] [address] * POC GLUCOSE (09/22/2018 2:23 PM LAST SAWYER) Glucose, POC 367 (H) 70 - 100 MG/DL [facility] MAIN LAB Performing Organization Address City/State/Zipcode Phone Number MAIN LAB [address] [place] [address] * MAGNESIUM (09/22/2018 1:35 PM LAST SAWYER) Magnesium 2.0 1.6 - 2.6 mg/dL [facility] MAIN LAB Specimen Blood Performing Organization Address City/[facility]/Zipcode Phone Number MAIN LAB [address] [place] [phone] * BASIC METABOLIC PANEL (09/22/2018 1:35 PM LAST SAWYER) Sodium 129 (L) 137 - 147 MMOL/L [facility] MAIN LAB Potassium 3.3 (L) 3.5 - 5.1 MMOL/L [facility] MAIN LAB Chloride 97 (L) 98 - 110 MMOL/L MAIN LAB CO2 24 21 - 30 MMOL/L [facility] MAIN LAB Anion Gap 8 3 - 12 [facility] MAIN LAB Glucose 514 (HH) 70 - 100 MG/DL MAIN LAB Comment: Critical Value GLU: Called To: WILLA Jewell at: 14:19:26 by: NO Read back by: WILLA Jewell Blood Urea Nitrogen 5 (L) 7 - 25 MG/DL MAIN LAB Creatinine 0.80 0.4 - 1.00 MG/DL MAIN LAB Calcium 8.0 (L) 8.5 - 10.6 MG/DL MAIN LAB [...] for questions. Specimen Blood Performing Organization Address City/[facility]/Zipcode Phone Number MAIN LAB [address] [place] [address] * POC GLUCOSE (09/22/2018 12:26 PM LAST SAWYER) Glucose, POC 393 (H) 70 - 100 MG/DL [facility] MAIN LAB Performing Organization Address City/[facility]/Zipcode Phone Number MAIN LAB [address] [place] [address] * POC GLUCOSE (09/22/2018 9:44 AM LAST SAWYER) Glucose, POC 316 (H) 70 - 100 MG/DL [facility] MAIN LAB Performing Organization Address City/[facility]/Zipcode Phone Number MAIN LAB [address] [place] [phone] * POC GLUCOSE (09/22/2018 7:23 AM LAST SAWYER) Glucose, POC 207 (H) 70 - 100 MG/DL MAIN LAB Performing Organization Address [facility] Phone Number MAIN LAB [address] [place] [address] * POC GLUCOSE (09/22/2018 5:36 AM LAST SAWYER) Glucose, POC 82 70 - 100 MG/DL MAIN LAB Performing Organization Address [facility] Phone Number MAIN LAB [address] [place] [address] * FLOW CYTOMETRY (09/22/2018 4:43 AM LAST SAWYER) PATHOLOGY REPORT [facility] [email or web address] Dave Roberson MD, Director of Flow Cytometry Laboratory Department of Pathology and Laboratory Medicine [address] [place] [address] Surgical Pathology Office:[phone] :[phone] FLOW CYTOMETRY REPORT NAME: ISSA CASTILLOCHELSEA SURG PATH #: [id number] MR #: [id number] SPECIMEN CLASS: LC BILLING #: [id number] ALT ID #:LOCATION: DATE OF PROCEDURE: 09/22/2018 AGE:58 SEX: F DATE RECEIVED: 09/23/2018 : 1960TIME RECEIVED:07:16 PHYSICIAN: Jakub Miller MD DATE OF REPORT: 09/24/2018 [facility]: [facility] JUSTIN Sutton MD DATE OF PRINTIN09/24/2018 Material Received: A: Blood Peripheral History: 58-year-old female with lymphadenopathy ############################## ############################## ############ Final Diagnosis: Blood, flow cytometry: CD5 positive B-cell proliferation, 12.8% Interpretation: Lymphocytes comprise 47% of total events.B cells wryedbjh92.8% of total events that are positive for CD5, CD19, CD20, CD23, CD38, CD200 and monoclonal lambda.They are negative for CD10, CD34, and FMC-7.These results are diagnostic of a CD5(+) B cell proliferation.The immunophenotypic pattern is consistent with a variety of entities, including 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 The neoplastic B cells are negative for Zap70 (19%) and positive for CD38 (51%). Attestation: By this signature, I attest that I have personally formulated the final interpretation expressed in this report and that the above diagnosis is based upon my examination of the slides and/or other material indicated in this report. +++Electronically Signed Out By+++ ghada/09/23/2018 Interpreted by: Dave Roberson MD 09/24/2018 ############################## ############################## ############ Lab Data: Flow Cytometry - Lymphoma Panel B Cell Associated Markers (% Positive Cells): CD19=33; CD19+CD5+=32; CD20=33; CD23=35; CD23+CD5+=34; Norco=0; Lambda=32; Norco:Lambda ratio=na T Cell Associated Markers (% Positive Cells): CD2=53; CD3=47; CD4=31; CD5=92; CD7=51; CD8=19 CD4:CD8 ratio=1.8 Miscellaneous Markers (% Positive Cells): CD1d=5; CD10=0; CD34=0; CD38=40; ET09=333; CD56=9; FMC7=15; DF741=05 Cell Viability (%): na Number of Cells Analyzed:16447 Total Number of Markers: 19 Summary of Marker Combinations: Norco/Lambda/5/19/38/45/10/20; FMC7/23/200/34/1d/45//; 2/7/5/3/4/45/56/8 Flow Cytometry - Zap70 Panel B Cell Associated Markers (% Positive Cells): CD19(+)CD5(+)Zap70(+)=19; CD19=41; T Cell Associated Markers (% Positive Cells): CD3(+)Zap70(+)=48; CD3=49; CD5=90; Miscellaneous Markers (% Positive Cells): LP95=176 Cell Viability (%): na Number of Cells Analyzed:49729 Total Number of Markers: 1 Summary of Marker Combinations: Zap70/5/// This test was developed and its performance characteristics determined by the [facility] Flow Cytometry Laboratory.It has not been cleared or approved by the U.S. Food and Drug Administration (FDA).The FDA has determined that such clearance or approval is not necessary. Performing Organization Address City/State/Zipcode Phone Number [facility] LAB RESULTS * COMPREHENSIVE METABOLIC PANEL (09/22/2018 4:43 AM LAST SAWYER) Sodium 140 137 - 147 MMOL/L [facility] MAIN LAB Potassium 2.6 (LL) 3.5 - 5.1 MMOL/L [facility] MAIN LAB Comment: Critical Value K: Called To: EMMA Brown at: 06:10:03 by: MARSHALL Read back by: EMMA Brown Chloride 101 98 - 110 MMOL/L [facility] MAIN LAB Glucose 75 70 - 100 MG/DL [facility] MAIN LAB Blood Urea Nitrogen 3 (L) 7 - 25 MG/DL [facility] MAIN LAB Creatinine 0.64 0.4 - 1.00 MG/DL [facility] MAIN LAB Calcium 8.7 8.5 - 10.6 MG/DL [facility] MAIN LAB Total Protein 5.9 (L) 6.0 - 8.0 G/DL [facility] MAIN LAB Total Bilirubin 0.3 0.3 - 1.2 MG/DL [facility] MAIN LAB Albumin 3.5 3.5 - 5.0 G/DL [facility] MAIN LAB Alk Phosphatase 50 25 - 110 U/L [facility] MAIN LAB AST (SGOT) 13 7 - 40 U/L [facility] MAIN LAB CO2 32 (H) 21 - 30 MMOL/L [facility] MAIN [...] for questions. Specimen Blood Performing Organization Address City/[facility]/Zipcode Phone Number [facility] MAIN LAB [address] [place] [address] * CBC AND DIFF (09/22/2018 4:43 AM LAST SAWYER) White Blood Cells 9.0 4.5 - 11.0 K/UL [facility] MAIN LAB RBC 4.52 4.0 - 5.0 M/UL [facility] MAIN LAB Hemoglobin 13.3 12.0 - 15.0 GM/DL [facility] MAIN LAB Hematocrit 38.1 36 - 45 % [facility] MAIN LAB MCV 84.4 80 - 100 FL [facility] MAIN LAB MCH 29.4 26 - 34 PG [facility] MAIN LAB MCHC 34.8 32.0 - 36.0 G/DL [facility] MAIN LAB RDW 17.3 (H) 11 - 15 % [facility] MAIN LAB Platelet Count 258 150 - 400 K/UL [facility] MAIN LAB MPV 8.8 7 - 11 FL [facility] MAIN LAB Neutrophils 34 (L) 41 - 77 % [facility] MAIN LAB Lymphocytes 49 (H) 24 - 44 % [facility] MAIN [...] K/UL [facility] MAIN LAB Absolute Eosinophil Count 0.90 (H) 0 - 0.45 K/UL [facility] MAIN LAB Absolute Basophil Count 0.10 0 - 0.20 K/UL [facility] MAIN LAB Specimen Blood Performing Organization Address City/[facility]/Zipcode Phone Number [facility] MAIN LAB [address] [place] [address] * LEUKEMIA-LYMPHOMA PANEL BLOOD (09/22/2018 4:43 AM LAST SAWYER) Leuk/Lymph Interpretation SEE PATHOLOGY REPORT [facility] MAIN LAB Specimen/LLM BLOOD [facility] MAIN LAB Specimen Blood Performing Organization Address City/[facility]/Zipcode Phone Number [facility] MAIN LAB [address] [place] [address] * POC GLUCOSE (09/22/2018 1:46 AM CDT) Glucose, POC 122 (H) 70 - 100 MG/DL [facility] MAIN LAB Performing Organization Address City/State/Zipcode Phone Number MAIN LAB [address] [place] [address] * POC GLUCOSE (09/21/2018 11:48 PM CDT) Glucose, POC 177 (H) 70 - 100 MG/DL [facility] MAIN LAB Performing Organization Address City/State/Zipcode Phone Number MAIN LAB [address] [place] [address] * POC GLUCOSE (09/21/2018 9:23 PM CDT) Glucose, POC 312 (H) 70 - 100 MG/DL [facility] MAIN LAB Performing Organization Address City/[facility]/Zipcode Phone Number MAIN LAB [address] [place] [address] * POC GLUCOSE (09/21/2018 6:12 PM CDT) Glucose, POC 264 (H) 70 - 100 MG/DL [facility] MAIN LAB Performing Organization Address City/State/Zipcode Phone Number MAIN LAB [address] [place] [address] * POC GLUCOSE (09/21/2018 1:45 PM CDT) Glucose, POC 288 (H) 70 - 100 MG/DL [facility] MAIN LAB Performing Organization Address City/[facility]/Zipcode Phone Number MAIN LAB [address] [place] [address] * POC GLUCOSE (09/21/2018 11:35 AM CDT) Glucose, POC 226 (H) 70 - 100 MG/DL [facility] MAIN LAB Performing Organization Address City/State/Zipcode Phone Number MAIN LAB [address] [place] [address] * POC GLUCOSE (09/21/2018 8:50 AM CDT) Glucose, POC 129 (H) 70 - 100 MG/DL [facility] MAIN LAB Performing Organization Address City/State/Zipcode Phone Number MAIN LAB [address] [place] [address] * POC GLUCOSE (09/21/2018 6:21 AM CDT) Glucose, POC 120 (H) 70 - 100 MG/DL [facility] MAIN LAB Performing Organization Address City/[facility]/Zipcode Phone Number [facility] MAIN LAB [address] [place] [address] * COMPREHENSIVE METABOLIC PANEL (09/21/2018 3:55 AM CDT) Sodium 137 137 - 147 MMOL/L [facility] MAIN LAB Potassium 3.0 (L) 3.5 - 5.1 MMOL/L [facility] MAIN LAB Chloride 101 98 - 110 MMOL/L [facility] MAIN LAB Glucose 152 (H) 70 - 100 MG/DL [facility] MAIN LAB Blood Urea Nitrogen 3 (L) 7 - 25 MG/DL [facility] MAIN LAB Creatinine 0.67 0.4 - 1.00 MG/DL [facility] MAIN LAB Calcium 8.6 8.5 - 10.6 MG/DL [facility] MAIN LAB Total Protein 5.9 (L) 6.0 - 8.0 G/DL [facility] MAIN LAB Total Bilirubin 0.4 0.3 - 1.2 MG/DL [facility] MAIN LAB Albumin 3.7 3.5 - 5.0 G/DL [facility] MAIN LAB Alk Phosphatase 55 25 - 110 U/L [facility] MAIN LAB AST (SGOT) 16 7 - 40 U/L [facility] MAIN LAB CO2 25 21 - 30 MMOL/L [facility] MAIN LAB ALT (SGPT) 8 7 - 56 U/L [facility] MAIN LAB Anion Gap 11 3 - 12 [facility] MAIN LAB eGFR [...] Phone Number [facility] MAIN LAB [address] [place] [address] * CBC AND DIFF (09/21/2018 3:55 AM CDT) White Blood Cells 13.1 (H) 4.5 - 11.0 K/UL [facility] MAIN LAB RBC 4.54 4.0 - 5.0 M/UL [facility] MAIN LAB Hemoglobin 13.2 12.0 - 15.0 GM/DL [facility] MAIN LAB Hematocrit 40.5 36 - 45 % [facility] MAIN LAB MCV 89.1 80 - 100 FL [facility] MAIN LAB MCH 29.0 26 - 34 PG [facility] MAIN LAB MCHC 32.6 32.0 - 36.0 G/DL MAIN LAB RDW 17.5 (H) 11 - 15 % [facility] MAIN LAB Platelet Count 234 150 - 400 K/UL [facility] MAIN LAB MPV 9.1 7 - 11 FL [facility] MAIN LAB Neutrophils 50 41 - 77 % [facility] MAIN [facility] Lymphocytes 35 24 - 44 % [facility] MAIN [facility] Monocytes 5 4 - 12 % [facility] MAIN LAB Eosinophils 10 (H) 0 - 5 % [facility] MAIN LAB Basophils 0 0 - 2 % [facility] MAIN LAB Absolute Neutrophil Count 6.50 1.8 - 7.0 K/UL [facility] MAIN LAB Absolute Lymph Count 4.50 1.0 - 4.8 K/UL [facility] MAIN LAB Absolute Monocyte Count 0.60 0 - 0.80 K/UL [facility] MAIN LAB Absolute Eosinophil Count 1.30 (H) 0 - 0.45 K/UL [facility] MAIN LAB Absolute Basophil Count 0.10 0 - 0.20 K/UL [facility] MAIN LAB Specimen Blood Performing Organization Address City/[facility] Phone Number MAIN LAB [address] [place] [address] * POC GLUCOSE (09/21/2018 3:54 AM CDT) Glucose, POC 133 (H) 70 - 100 MG/DL [facility] MAIN LAB Performing Organization Address [facility] Phone Number MAIN LAB [address] [place] [address] * POC GLUCOSE (09/21/2018 12:57 AM CDT) Glucose, POC 169 (H) 70 - 100 MG/DL [facility] MAIN LAB Performing Organization Address City/[facility] Phone Number MAIN LAB [address] [place] [address] * POC GLUCOSE (09/20/2018 11:18 PM CDT) Glucose, POC 181 (H) 70 - 100 MG/DL [facility] MAIN LAB Performing Organization Address City/[facility] Phone Number MAIN LAB [address] [place] [address] * POC GLUCOSE (09/20/2018 9:00 PM CDT) Glucose, POC 196 (H) 70 - 100 MG/DL [facility] MAIN LAB Performing Organization Address City/[facility]/Zipcode Phone Number MAIN LAB [address] [place] [address] * POC GLUCOSE (09/20/2018 7:32 PM CDT) Glucose, POC 177 (H) 70 - 100 MG/DL MAIN LAB Performing Organization Address [facility] Phone Number MAIN LAB [address] [place] [address] * SURGICAL PATHOLOGY (09/20/2018 5:32 PM CDT) PATHOLOGY REPORT [facility] [email or web address] Department of Pathology and Laboratory Medicine [address] [place] [address] Surgical Pathology Office:[phone] :[phone] SURGICAL PATHOLOGY REPORT NAME: CHELSEA LIN SURG PATH #: [id number] MR #: [id number] SPECIMEN CLASS: SR BILLING #: [id number] ALT ID #:LOCATION: [facility] DATE OF PROCEDURE: 09/20/2018 AGE:58 SEX: F DATE RECEIVED: 09/20/2018 : 1960TIME RECEIVED:17:32 PHYSICIAN: CHARLES FREEMAN M.D. DATE OF REPORT: 09/23/2018 COPY TO:DATE OF PRINTIN09/23/2018 ############################## ############################## ############ Final Diagnosis: A. Small bowel mucosa, celiac bx r/o celiac dx, biopsy: Normal villous architecture with no diagnostic abnormalities. B. Gastric mucosa, stomach biopsy r/o H. pylori, biopsy: Increased lamina propria eosinophils. See comment. Immunohistochemical stain for H. pylori is negative for H. pylori organisms. C. Squamous mucosa, distal esophageal biopsy r/o eoe, biopsy: No diagnostic abnormalities. D. Squamous mucosa, proximal esophageal biopsy r/o eoe, biopsy: No diagnostic abnormalities. E. Colonic mucosa, transverse colon polyp 6mm, biopsy: Tubular adenoma. Comment: B.The finding of increased eosinophils within the gastric lamina propria is a nonspecific finding and the significance requires correlation with other stigmata of allergic disease if necessary. Attestation: By this signature, I attest that I have personally formulated the final interpretation expressed in this report and that the above diagnosis is based upon my examination of the slides and/or other material indicated in this report. +++ +++ elmo/09/23/2018 ############################## ############################## ############ Material Received: A: celiac bx r/o celiac dx B: stomach biopsy r/o h.pylori C: distal esophageal biopsy r/o eoe D: proximal esophageal biopsy r/o eoe E: transverse colon polyp 6mm History: 58-year-old female with a history of loss of weight, constant low grade dysphagia. Gross Description: A. Received in formalin labeled "celiac biopsy rule out celiac disease" is a 1.0 x 0.3 x 0.2 cm aggregate of hodges-brown soft tissue fragments. The specimen is entirely submitted in cassette A1. (wlm) B. Received in formalin labeled "stomach biopsy rule out H. pylori" is a 0.9 x 0.3 x 0.2 cm aggregate of hodges-brown soft tissue fragments. The specimen is entirely submitted in cassette B1. (wlm) C. Received in formalin labeled "distal esophageal biopsy rule out EOE" is a 0.7 x 0.2 x 0.2 cm aggregate of hodges-brown soft tissue fragments. The specimen is entirely submitted in cassette C1. (wlm) D. Received in formalin labeled "proximal esophageal biopsy rule out EOE" is a 0.7 x 0.3 x 0.2 cm aggregate of hodges-brown soft tissue fragments. The specimen is entirely submitted in cassette D1. (wlm) E. Received in formalin labeled "transverse colon polyp 6 mm" is a 0.6 x 0.2 x 0.2 cm aggregate of hodges-brown soft tissue fragments. The specimen is entirely submitted in cassette E1. (wlm) wlm/09/20/2018 If immunohistochemical stains and/or in situ hybridization are cited in this report, the performance characteristics were determined by the Department of Pathology and Laboratory Medicine of the [facility] ([employer]) in compliance with CLIA'88 regulations.Some of these tests rely on the use of "analyte specific reagents" and are subject to specific labeling requirements by the FDA. Known positive and negative control tissues demonstrate appropriate staining.Results should be interpreted with caution given the likelihood of false negativity on decalcified specimens.This testing was developed by the Department of Pathology and Laboratory Medicine of the [facility].It has not been cleared or approved by the FDA.The FDA has determined that such clearance or approval is not necessary. Performing Organization Address City/State/Zipcode Phone Number LAB RESULTS * POC GLUCOSE (09/20/2018 5:01 PM CDT) Glucose, POC 125 (H) 70 - 100 MG/DL [facility] Performing Organization Address City/[facility] Phone Number [facility] [address] [place] [address] * MAGNESIUM (09/20/2018 5:00 PM CDT) Magnesium 1.6 1.6 - 2.6 mg/dL [facility] Specimen Blood Performing Organization Address [facility] Phone Number [facility] [address] [place] [address] * BASIC METABOLIC PANEL (09/20/2018 5:00 PM CDT) Sodium 137 137 - 147 MMOL/L MAIN LAB Potassium 2.8 (L) 3.5 - 5.1 MMOL/L MAIN LAB Chloride 102 98 - 110 MMOL/L MAIN LAB CO2 27 21 - 30 MMOL/L [facility] MA[facility] Anion Gap 8 3 - 12 [facility] MAIN [facility] Glucose 132 (H) 70 - 100 MG/DL [facility] MAIN [facility] Blood Urea Nitrogen 2 (L) 7 - 25 MG/DL [facility] MAIN [facility] Creatinine 0.57 0.4 - 1.00 MG/DL MAIN LAB Calcium 8.1 (L) 8.5 - [...] Address City/State/Zipcode Phone Number [facility] MAIN LAB [address] [place] [address] * COLONOSCOPY (09/20/2018 3:17 PM CDT) Provation Report Patient Name: Issa OSWALD OTHER RESULTS [place] Procedure Date: 09/20/2018 3:17 PM CSN: [id number] Date of : 1960 Gender: Female Attending Physician: Charles Freeman MD Procedure: Colonoscop y Indications: Screening for colorectal malignant neoplasm Providers: Charles Freeman MD (Doctor), Nicole Villasenor MD (Fellow), Bianka Lang RN (Nurse), Earlene Grady Forensic Document Examiner (Forensic Document Examiner) Referring Physician: Martin Reynoso MD, Ivory Gonzalez Medications: Propofol per Anesthesia Complications: No immediate complications. Procedure: Pre-Anesthesia Assessment: [...] satisfactory condition to undergo the procedure. After I obtained informed consent, the scope was passed under direct vision. Throughout the procedure, the patient's blood pressure, pulse, and oxygen saturations were monitored continuously. The Colonoscope [id number] was introduced through the anus and advanced to the terminal ileum. The colonoscopy was performed without difficulty. The patient tolerated the procedure well. The terminal ileum, ileocecal valve, appendiceal orifice, and rectum were photographed. The quality of the bowel preparation was fair. Findings: Preparation was only fair. Normal terminal ileal and colonic mucosa. 5 mm transverse polyp removed with cold snare. Impression: Preparation was only fair. Normal terminal ileal and colonic mucosa. 5 mm transverse polyp removed with cold snare. Estimated Blood Loss: Estimated blood loss was minimal. Recommendation: 1. Await pathology 2. GI consults following; please see consult note from today for additional recommendations. Scope In: 3:18:58 PM Scope Out: 3:39:46 PM Scope Withdrawal Time 0 hours 15 minutes 59 seconds Total Procedure Duration Time 0 hours 20 minutes 48 seconds Procedure Code(s): --- Professional --- G0121, Colorectal cancer screening; colonoscopy on individual not meeting criteria for high risk Diagnosis Code(s): --- Professional --- Z12.11, Encounter for screening for malignant neoplasm of colon CPT copyright 2016 [employer]. All rights reserved. The codes documented in this report are preliminary and upon dining room helper review may be revised to meet current compliance requirements. Attending Participation: I was present and participated during the entire procedure, including non-ortega portions. MD Charles Altamirano MD 09/20/2018 3:41:45 PM The attending physician has electronically signed and finalized this document. Nicole Villasenor MD Number of Addenda: 0 Note Initiated On: 09/20/2018 3:17 PM Performing Organization Address City/State/Zipcode Phone Number [facility] OTHER RESULTS * EGD REPORT (09/20/2018 2:51 PM CDT) Provation Report Patient Name: Issa OSWALD OTHER RESULTS [place] Procedure Date: 09/20/2018 2:51 PM CSN: [id number] Date of : 1960 Gender: Female Attending Physician: Charles Freeman MD Procedure: Upper GI endoscopy Indications: Nausea with vomiting, Weight loss Providers: Charles Freeman MD (Doctor), Nicole Villasenor MD (Fellow), Bianka Lang RN (Nurse), Earlene Grady Forensic Document Examiner (Forensic Document Examiner) Referring Physician: Martin Reynoso MD, Ivory Gonzalez Medications: Propofol per Anesthesia Complications: No immediate complications. Procedure: Pre-Anesthesia Assessment: [...] oxygen saturations were monitored continuously. The Endoscope was introduced through the mouth, and advanced to the second part of duodenum. The upper GI endoscopy was accomplished without difficulty. The patient tolerated the procedure well. Findings: Esophagus: normal, GEJ at 36; random biopsies obtained. Stomach: diffuse erythema, numerous small gastric polyps, biopsies obtained. Duodenum: normal, biopsies obtained. Impression: Esophagus: normal, GEJ at 36; random biopsies obtained. Stomach: diffuse erythema, numerous small gastric polyps, biopsies obtained. Duodenum: normal, biopsies obtained. Estimated Blood Loss: Estimated blood loss: none. Recommendation: - await pathology. - GI consults following. Scope In: 3:04:21 PM Scope Out: 3:14:04 PM Total Procedure Duration Time 0 hours 9 minutes 43 seconds Procedure Code(s): --- Professional --- 20417, Esophagogastroduodenoscopy, flexible, transoral; diagnostic, including collection of specimen(s) by brushing or washing, when performed (separate procedure) Diagnosis Code(s): --- Professional --- R11.2, Nausea with vomiting, unspecified R63.4, Abnormal weight loss CPT copyright 2016 [employer]. All rights reserved. The codes documented in this report are preliminary and upon dining room helper review may be revised to meet current compliance requirements. Attending Participation: I was present and participated during the entire procedure, including non-ortega portions. MD Charles Altamirano MD 09/20/2018 3:39:45 PM The attending physician has electronically signed and finalized this document. Nicole Villasenor MD Number of Addenda: 0 Note Initiated On: 09/20/2018 2:51 PM Performing Organization Address City/State/Zipcode Phone Number [facility] OTHER RESULTS * POC GLUCOSE (09/20/2018 2:37 PM CDT) Glucose, POC 137 (H) 70 - 100 MG/DL [facility] Performing Organization Address City/[facility] Phone Number [facility] [address] [place] [address] * POC GLUCOSE (09/20/2018 12:59 PM CDT) Glucose, POC 159 (H) 70 - 100 MG/DL [facility] Performing Organization Address City/[facility] Phone Number [facility] [address] [place] [address] * POC GLUCOSE (09/20/2018 10:20 AM CDT) Glucose, POC 155 (H) 70 - 100 MG/DL [facility] Performing Organization Address City/[facility] Phone Number [facility] [address] [place] [address] * POC GLUCOSE (09/20/2018 8:17 AM CDT) Glucose, POC 164 (H) 70 - 100 MG/DL [facility] Performing Organization Address City/[facility] Phone Number [facility] [address] [place] [address] * POC GLUCOSE (09/20/2018 6:13 AM CDT) Glucose, POC 169 (H) 70 - 100 MG/DL [facility] Performing Organization Address [facility] Phone Number [facility] [address] [place] [address] * COMPREHENSIVE METABOLIC PANEL (09/20/2018 3:10 AM CDT) Sodium 135 (L) 137 - 147 MMOL/L [facility] Potassium 2.9 (L) 3.5 - 5.1 MMOL/L [facility] Chloride 101 98 - 110 MMOL/L [facility] Glucose 189 (H) 70 - 100 MG/DL [facility] Blood Urea Nitrogen 2 (L) 7 - 25 MG/DL [facility] Creatinine 0.60 0.4 - 1.00 MG/DL [facility] Calcium 8.3 (L) 8.5 - 10.6 MG/DL [facility] Total Protein 5.6 (L) 6.0 - 8.0 G/DL [facility] Total Bilirubin 0.4 0.3 - 1.2 MG/DL [facility] Albumin 3.6 3.5 - 5.0 G/DL [facility] Alk Phosphatase 53 25 - 110 U/L [facility] AST (SGOT) 24 7 - 40 U/L [facility] [...] Address City/State/Zipcode Phone Number [facility] [address] [place] [address] * CBC AND DIFF (09/20/2018 3:10 AM CDT) White Blood Cells 9.8 4.5 - 11.0 K/UL [facility] RBC 4.15 4.0 - 5.0 M/UL [facility] Hemoglobin 12.0 12.0 - 15.0 GM/DL [facility] Hematocrit 35.5 (L) 36 - 45 % [facility] MCV 85.5 80 - 100 FL [facility] MCH 28.8 26 - 34 PG [facility] MCHC 33.7 32.0 - 36.0 G/DL [facility] RDW 17.4 (H) 11 - 15 % [facility] Platelet Count 209 150 - 400 K/UL [facility] MPV 8.6 7 - 11 FL [facility] Neutrophils 34 (L) 41 - 77 % [facility] Lymphocytes 43 24 - 44 % [facility] Monocytes 7 4 - 12 % [facility] Eosinophils 15 (H) 0 - 5 % [facility] Basophils 1 0 - 2 % [facility] Absolute Neutrophil Count 3.30 1.8 - 7.0 K/UL [facility] Absolute Lymph Count 4.30 1.0 - 4.8 K/UL [facility] Absolute Monocyte Count 0.60 0 - 0.80 K/UL [facility] Absolute Eosinophil Count 1.50 (H) 0 - 0.45 K/UL [facility] Absolute Basophil Count 0.10 0 - 0.20 K/UL [facility] Specimen Blood Performing Organization Address City/[facility]/Zipcode Phone Number MAIN LAB [address] [place] [address] * POC GLUCOSE (09/20/2018 2:24 AM CDT) Glucose, POC 222 (H) 70 - 100 MG/DL [facility] Performing Organization Address City/[facility] Phone Number [facility] [address] [place] [address] * ABDOMEN AP ONLY (09/20/2018 1:45 AM CDT) Impressions Performed At No bowel obstruction. [facility] RAD RESULTS Finalized by Leonel Maradiaga D.O. on 09/20/2018 10:27 AM. Dictated by Leonel Maradiaga D.O. on 09/20/2018 10:00 AM. Narrative Performed At Supine abdomen [facility] RAD RESULTS CLINICAL HISTORY: Nausea/vomiting/abdominal pain COMPARISON: Prior CT scan of the abdomen and pelvis September 16, 2018 FINDINGS: Surgical clips in the right upper quadrant from prior cholecystectomy. The bowel gas pattern is nonobstructive. Procedure Note Interface, Radiant Results - 09/20/2018 10:30 AM CDT Supine abdomen CLINICAL HISTORY: Nausea/vomiting/abdominal pain COMPARISON: Prior CT scan of the abdomen and pelvis September 16, 2018 FINDINGS: Surgical clips in the right upper quadrant from prior cholecystectomy. The bowel gas pattern is nonobstructive. IMPRESSION No bowel obstruction. Finalized by Leonel Maradiaga D.O. on 09/20/2018 10:27 AM. Dictated by Leonel Maradiaga D.O. on 09/20/2018 10:00 AM. Performing Organization Address City/[facility] Phone Number [facility] RAD RESULTS * POC GLUCOSE (09/20/2018 12:05 AM CDT) Glucose, POC 199 (H) 70 - 100 MG/DL [facility] Performing Organization Address City/[facility]/Zipcode Phone Number MA[facility] [address] [place] [address] * POC GLUCOSE (09/19/2018 10:00 PM CDT) Glucose, POC 222 (H) 70 - 100 MG/DL [facility] Performing Organization Address City/[facility]/Zipcode Phone Number MA[facility] [address] [place] [address] * POC GLUCOSE (09/19/2018 8:14 PM CDT) Glucose, POC 240 (H) 70 - 100 MG/DL [facility] Performing Organization Address City/State/Zipcode Phone Number [facility] [address] [place] [address] * POC GLUCOSE (09/19/2018 5:51 PM CDT) Glucose, POC 144 (H) 70 - 100 MG/DL [facility] Performing Organization Address City/State/Zipcode Phone Number MA[facility] [address] [place] [address] * POC GLUCOSE (09/19/2018 3:51 PM CDT) Glucose, POC 124 (H) 70 - 100 MG/DL [facility] Performing Organization Address City/State/Zipcode Phone Number MA[facility] [address] [place] [address] * POC GLUCOSE (09/19/2018 1:49 PM CDT) Glucose, POC 131 (H) 70 - 100 MG/DL [facility] Performing Organization Address City/State/Zipcode Phone Number [facility] [address] [place] [address] * POC GLUCOSE (09/19/2018 11:52 AM CDT) Glucose, POC 119 (H) 70 - 100 MG/DL [facility] Performing Organization Address City/State/Zipcode Phone Number [facility] [address] [place] [address] * POC GLUCOSE (09/19/2018 10:17 AM CDT) Glucose, POC 114 (H) 70 - 100 MG/DL [facility] Performing Organization Address City/State/Zipcode Phone Number MA[facility] [address] [place] [address] * POC GLUCOSE (09/19/2018 8:15 AM CDT) Glucose, POC 124 (H) 70 - 100 MG/DL [facility] Performing Organization Address City/State/Zipcode Phone Number MA[facility] [address] [place] [address] * POC GLUCOSE (09/19/2018 6:22 AM CDT) Glucose, POC 130 (H) 70 - 100 MG/DL [facility] Performing Organization Address City/[facility] Phone Number [facility] [address] [place] [address] * POC GLUCOSE (09/19/2018 5:23 AM CDT) Glucose, POC 128 (H) 70 - 100 MG/DL [facility] Performing Organization Address City/[facility] Phone Number [facility] [address] [place] [address] * POC GLUCOSE (09/19/2018 5:07 AM CDT) Glucose, POC 123 (H) 70 - 100 MG/DL [facility] Performing Organization Address City/[facility] Phone Number [facility] [address] [place] [address] * POC GLUCOSE (09/19/2018 4:49 AM CDT) Glucose, POC 140 (H) 70 - 100 MG/DL [facility] Performing Organization Address City/[facility] Phone Number [facility] [address] [place] [address] * POC GLUCOSE (09/19/2018 4:32 AM CDT) Glucose, POC 168 (H) 70 - 100 MG/DL [facility] Performing Organization Address [facility] Phone Number MA[facility] [address] [place] [address] * COMPREHENSIVE METABOLIC PANEL (09/19/2018 4:06 AM CDT) Sodium 135 (L) 137 - 147 MMOL/L [facility] Potassium 2.7 (LL) 3.5 - 5.1 MMOL/L [facility] Comment: Critical Value K: Called To: BERRY Lo at: 04:52:52 by: RODRIGO Read back by: BERRY Lo Chloride 99 98 - 110 MMOL/L [facility] Glucose 202 (H) 70 - 100 MG/DL [facility] Blood Urea Nitrogen 6 (L) 7 - 25 MG/DL [facility] Creatinine 0.57 0.4 - 1.00 MG/DL [facility] Calcium 7.7 (L) 8.5 - 10.6 MG/DL [facility] Total Protein 5.1 (L) 6.0 - 8.0 G/DL [facility] Total Bilirubin 0.3 0.3 - 1.2 MG/DL [facility] Albumin 3.3 (L) 3.5 - 5.0 G/DL [facility] Alk Phosphatase 49 25 - 110 U/L [facility] AST (SGOT) 22 7 - 40 U/L [facility] CO2 21 21 - 30 MMOL/L [facility] ALT (SGPT) 15 7 - 56 U/L [facility] Anion Gap 15 (H) 3 - 12 [facility] [...] Address City/State/Zipcode Phone Number MAIN [facility] [address] [place] [address] * CBC AND DIFF (09/19/2018 4:06 AM CDT) White Blood Cells 7.4 4.5 - 11.0 K/UL [facility] RBC 3.79 (L) 4.0 - 5.0 M/UL [facility] Hemoglobin 11.0 (L) 12.0 - 15.0 GM/DL [facility] Hematocrit 32.9 (L) 36 - 45 % [facility] MCV 87.0 80 - 100 FL [facility] MCH 29.1 26 - 34 PG [facility] MCHC 33.5 32.0 - 36.0 G/DL [facility] RDW 17.2 (H) 11 - 15 % [facility] Platelet Count 183 150 - 400 K/UL [facility] MPV 8.6 7 - 11 FL [facility] Neutrophils 48 41 - 77 % [facility] Lymphocytes 37 24 - 44 % [facility] Monocytes 6 4 - 12 % [facility] Eosinophils 9 (H) 0 - 5 % [facility] Basophils 0 0 - 2 % [facility] Absolute Neutrophil Count 3.50 1.8 - 7.0 K/UL [facility] Absolute Lymph Count 2.80 1.0 - 4.8 K/UL [facility] Absolute Monocyte Count 0.50 0 - 0.80 K/UL [facility] Absolute Eosinophil Count 0.70 (H) 0 - 0.45 K/UL [facility] Absolute Basophil Count 0.00 0 - 0.20 K/UL [facility] Specimen Blood Performing Organization Address City/[facility] Phone Number [facility] [address] [place] [address] * POC GLUCOSE (09/19/2018 4:01 AM CDT) Glucose, POC 188 (H) 70 - 100 MG/DL [facility] Performing Organization Address City/[facility] Phone Number [facility] [address] [place] [address] * POC GLUCOSE (09/19/2018 3:47 AM CDT) Glucose, POC 236 (H) 70 - 100 MG/DL [facility] Performing Organization Address [facility] Phone Number [facility] [address] [place] [address] * POC GLUCOSE (09/19/2018 3:36 AM CDT) Glucose, POC 40 (LL) 70 - 100 MG/DL [facility] Performing Organization Address [facility] Phone Number [facility] [address] [place] [address] * POC GLUCOSE (09/18/2018 7:53 PM CDT) Glucose, POC 105 (H) 70 - 100 MG/DL [facility] Performing Organization Address [facility] Phone Number [facility] [address] [place] [address] * CT NECK W/CONTRAST (09/18/2018 6:19 PM CDT) Impressions Performed At 1.Mild submental, bilateral submandibular, left level 2A, and bilateral [facility] RAD RESULTS subpectoral and axillary lymphadenopathy, which is of indeterminate reactive or malignant etiology. 2.Atrophic hypodense thyroid tissue. Approved by Efrain Bonilla D.O. on 09/19/2018 10:01 AM By my electronic signature, I attest that I have personally reviewed the images for this examination and formulated the interpretations and opinions expressed in this report Finalized by Vinicio Dawson M.D. on 09/19/2018 11:52 AM. Dictated by Efrain Bonilla D.O. on 09/19/2018 8:12 AM. Narrative Performed At CT Neck [facility] RAD RESULTS Clinical Indication: Female, 58 years old. Axillary lymphadenopathy, right. Technique: Multiple contiguous axial images were obtained through the neck following the administration of Isovue-370 IV contrast material. Post processing coronal and sagittal reconstruction images were made from the axial images. Comparison: CT head without contrast dated 18/12/2017 and CTA chest with and without contrast dated 07/19/2018. Findings: Brain and Orbits: Normal. Sinuses and Mastoids: Normal. Suprahyoid Neck: Normal nasal cavity, nasopharynx, oral cavity, oropharynx, parapharyngeal space, and retropharyngeal space. Infrahyoid Neck: Normal larynx, hypopharynx, and supraglottis. Lymph Nodes: Bilateral upper limits of normal sized submental and submandibular lymph nodes. Borderline pathologically enlarged left level 2A lymph node measuring 1.7 x 1.2 cm (series 3 image 31). Additional scattered bilateral subcentimeter short axis, cervical lymph nodes. Mild bilateral subpectoral and axillary lymphadenopathy. Divemaster left axillary lymph node measuring 2.8 x 1 cm (series 5 image 64). Divemaster right axillary lymph node measures 1.4 x 2.3 cm (series 5 image 70). Parotid and Submandibular Glands: Normal. Thyroid: Hypodense and atrophic thyroid tissue. Vasculature: Normal. Osseous Structures: Cervical spondylosis resulting in at least mild multilevel central spinal stenosis and moderate multilevel neural foraminal stenosis. Thoracic inlet: Normal upper lungs and mediastinum. Subpectoral and axillary lymphadenopathy as above. Partial visualization of a left chest wall central venous Port-A-Cath. Incidental right azygos lobe. Procedure Note Interface, Radiant Results - 09/19/2018 11:[address] Neck Clinical Indication: Female, 58 years old. Axillary lymphadenopathy, right. Technique: Multiple contiguous axial images were obtained through the neck following the administration of Isovue-370 IV contrast material. Post processing coronal and sagittal reconstruction images were made from the axial images. Comparison: CT head without contrast dated 18/12/2017 and CTA chest with and without contrast dated 07/19/2018. Findings: Brain and Orbits: Normal. Sinuses and Mastoids: Normal. Suprahyoid Neck: Normal nasal cavity, nasopharynx, oral cavity, oropharynx, parapharyngeal space, and retropharyngeal space. Infrahyoid Neck: Normal larynx, hypopharynx, and supraglottis. Lymph Nodes: Bilateral upper limits of normal sized submental and submandibular lymph nodes. Borderline pathologically enlarged left level 2A lymph node measuring 1.7 x 1.2 cm (series 3 image 31). Additional scattered bilateral subcentimeter short axis, cervical lymph nodes. Mild bilateral subpectoral and axillary lymphadenopathy. Divemaster left axillary lymph node measuring 2.8 x 1 cm (series 5 image 64). Divemaster right axillary lymph node measures 1.4 x 2.3 cm (series 5 image 70). Parotid and Submandibular Glands: Normal. Thyroid: Hypodense and atrophic thyroid tissue. Vasculature: Normal. Osseous Structures: Cervical spondylosis resulting in at least mild multilevel central spinal stenosis and moderate multilevel neural foraminal stenosis. Thoracic inlet: Normal upper lungs and mediastinum. Subpectoral and axillary lymphadenopathy as above. Partial visualization of a left chest wall central venous Port-A-Cath. Incidental right azygos lobe. IMPRESSION 1. Mild submental, bilateral submandibular, left level 2A, and bilateral subpectoral and axillary lymphadenopathy, which is of indeterminate reactive or malignant etiology. 2. Atrophic hypodense thyroid tissue. Approved by Efrain Bonilla D.O. on 09/19/2018 10:01 AM By my electronic signature, I attest that I have personally reviewed the images for this examination and formulated the interpretations and opinions expressed in this report Finalized by Vinicio Dawson M.D. on 09/19/2018 11:52 AM. Dictated by Efrain Bonilla D.O. on 09/19/2018 8:12 AM. Performing Organization Address City/State/[facility] Phone Number [facility] RAD RESULTS * CT CHEST W CONTRAST (09/18/2018 6:19 PM CDT) Impressions Performed At 1. Decreased to stable enlarged bilateral axillary and subpectoral lymph nodes. [facility] RAD RESULTS No new or enlarging thoracic lymphadenopathy. Differential considerations are unchanged and would include collagen vascular disease, certain infection such as mononucleosis or lymphoproliferative disorder such as lymphoma or CLL. 2. Unchanged tiny soft tissue nodule along the lateral aspect of the left breast. Diagnostic mammography is recommended for further characterization if not already performed. 3. Unchanged tiny bilateral pulmonary nodules. In a low-risk patient, no follow-up of these nodules is required. In a high-risk patient, optional follow-up CT chest could be obtained in 12 months to evaluate for stability. By my electronic signature, I attest that I have personally reviewed the images for this examination and formulated the interpretations and opinions expressed in this report Finalized by Isrrael Arce M.D. on 09/19/2018 9:35 AM. Dictated by Nae Dickey M.D. on 09/19/2018 8:02 AM. Narrative Performed At CT CHEST [facility] RAD RESULTS Clinical Indication:Female, 58 years old. Axillary lymphadenopathy Technique: Multiple contiguous axial CT images were obtained through the chest following the administration of IV contrast. Post processing coronal and sagittal reconstruction images were made from the axial images. IV contrast: Isovue-370 Comparison: CTA chest 07/19/2018 FINDINGS: Lower Neck: Absent or atrophic thyroid gland. Axilla, Mediastinum and Ingrid: Decrease in size of mildly enlarged bilateral axillary and subpectoral lymph nodes, the majority of which maintain a reniform shape. Divemaster left axillary node measures 1.8 x 0.9 cm (series 6 image 13), previously 2.5 x 1.5 cm. No mediastinal or hilar lymphadenopathy. Heart and Great Vessels: Heart is normal in size without pericardial effusion. Left chest port is in place with the distal catheter tip terminating within the mid SVC. Airway, Lungs and Pleura: A few unchanged tiny bilateral pulmonary nodules, the largest within the right middle lobe measuring up to 0.5 cm (series 6 image 32 ). Mild dependent atelectasis. No focal area of consolidation or pleural effusion. Upper Abdomen: Unremarkable. Chest Wall and Osseous Structures: Unchanged soft tissue nodule along the lateral aspect of the left breast measuring up to 1.1 cm (series 6 image 29). No destructive osseous lesions. Procedure Note Interface, Radiant Results - 09/19/2018 9:[address] CHEST Clinical Indication: Female, 58 years old. Axillary lymphadenopathy Technique: Multiple contiguous axial CT images were obtained through the chest following the administration of IV contrast. Post processing coronal and sagittal reconstruction images were made from the axial images. IV contrast: Isovue-370 Comparison: CTA chest 07/19/2018 FINDINGS: Lower Neck: Absent or atrophic thyroid gland. Axilla, Mediastinum and Ingrid: Decrease in size of mildly enlarged bilateral axillary and subpectoral lymph nodes, the majority of which maintain a reniform shape. Divemaster left axillary node measures 1.8 x 0.9 cm (series 6 image 13), previously 2.5 x 1.5 cm. No mediastinal or hilar lymphadenopathy. Heart and Great Vessels: Heart is normal in size without pericardial effusion. Left chest port is in place with the distal catheter tip terminating within the mid SVC. Airway, Lungs and Pleura: A few unchanged tiny bilateral pulmonary nodules, the largest within the right middle lobe measuring up to 0.5 cm (series 6 image 32) . Mild dependent atelectasis. No focal area of consolidation or pleural effusion. Upper Abdomen: Unremarkable. Chest Wall and Osseous Structures: Unchanged soft tissue nodule along the lateral aspect of the left breast measuring up to 1.1 cm (series 6 image 29). No destructive osseous lesions. IMPRESSION 1. Decreased to stable enlarged bilateral axillary and subpectoral lymph nodes. No new or enlarging thoracic lymphadenopathy. Differential considerations are unchanged and would include collagen vascular disease, certain infection such as mononucleosis or lymphoproliferative disorder such as lymphoma or CLL. 2. Unchanged tiny soft tissue nodule along the lateral aspect of the left breast. Diagnostic mammography is recommended for further characterization if not already performed. 3. Unchanged tiny bilateral pulmonary nodules. In a low-risk patient, no follow -up of these nodules is required. In a high-risk patient, optional follow-up CT chest could be obtained in 12 months to evaluate for stability. By my electronic signature, I attest that I have personally reviewed the images for this examination and formulated the interpretations and opinions expressed in this report Finalized by Isrrael Arce M.D. on 09/19/2018 9:35 AM. Dictated by Nae Dickey M.D. on 09/19/2018 8:02 AM. Performing Organization Address City/State/Zipcode Phone Number RAD RESULTS * HIV-1/2 ANTIGEN/ANTIBODY SCREEN (09/18/2018 4:50 PM CDT) HIV 1 and 2 AG AB Screen NEG NEG-NEG [facility] Specimen Blood Performing Organization Address City/[facility]/Zipcode Phone Number [facility] [address] [place] [address] * HEPATITIS PANEL, ACUTE (09/18/2018 4:50 PM CDT) Hepatitis A IgM NEG NEG-NEG [facility] Anti HBc IgM NEG NEG-NEG [facility] HBsAg NEG NEG-NEG [facility] Anti HCV NEG NEG-NEG [facility] Specimen Blood Performing Organization Address City/State/Zipcode Phone Number MAIN LAB [address] [place] [address] * 2-D + DOPPLER ECHOCARDIOGRAM (09/18/2018 2:47 PM CDT) IVS 1.02 0.6 - 0.9 cm OTHER OUTSIDE LAB LVIDD 3.58 3.8 - 5.2 cm OTHER OUTSIDE LAB LVIDS 2.60 2.2 - 3.5 cm OTHER OUTSIDE LAB PW 1.06 0.6 - 0.9 cm OTHER OUTSIDE LAB TDI e' 0.09 m/s OTHER OUTSIDE LAB Right Ventricular Mid 2.47 1.9 - 3.5 cm OTHER OUTSIDE LAB Diameter LA size 3.35 2.7 - 3.8 cm OTHER OUTSIDE LAB LA volume 34.67 22 - 52 mL OTHER OUTSIDE LAB Right Atrial Area 7.48 <18 cm2 OTHER OUTSIDE LAB Right Atrial Major 3.55 2.2 - 2.8 cm OTHER OUTSIDE LAB Dimension AV peak velocity 1.38 m/s OTHER OUTSIDE LAB MV Peak A Jim 0.85 m/s OTHER OUTSIDE LAB MV Peak E Jim PW 0.68 m/s OTHER OUTSIDE LAB Right Heart Systolic 1.30 >1.7 cm OTHER OUTSIDE LAB Mmode TAPSE Right Ventricular Basal 2.49 2.5 - 4.1 cm OTHER OUTSIDE LAB Diameter Sinus 3.01 2.7 - 3.3 cm OTHER OUTSIDE LAB BSA 1.7 m2 OTHER OUTSIDE LAB FS 27.37 28 - 44 % OTHER OUTSIDE LAB EF 46.53 % OTHER OUTSIDE LAB Left Atrium Index 20.39 16 - 34 OTHER OUTSIDE LAB E/A ratio 0.80 OTHER OUTSIDE LAB E/E' ratio 7.56 OTHER OUTSIDE LAB LV mass 113.29 66 - 150 g OTHER OUTSIDE LAB RWT 0.59 <=0.42 OTHER OUTSIDE LAB TV rest pulmonary artery n/a mmHg OTHER OUTSIDE LAB pressure Right Heart Systolic TDI 0.120 m/s OTHER OUTSIDE LAB S' Cardiology Ultrasound Siemens [id number] OTHER OUTSIDE LAB Machine Left Ventricle Mass Index 66.64 44 - 88 g/m2 OTHER OUTSIDE LAB ECHO EF 65 % OTHER OUTSIDE LAB Narrative Performed At OTHER OUTSIDE LAB Left Ventricle: Normal size. Concentric remodeling. Sigmoid septum. Normal ejection fraction. No regional wall motion abnormalities seen. Right Ventricle: Normal size and ejection fraction. No hemodynamically significant valvular abnormalities. Insufficient TR jet to calculate RVSP. Performing Organization Address City/[facility] Phone Number OTHER OUT[facility]IDE LAB * POC GLUCOSE (09/18/2018 1:43 PM CDT) Glucose, POC 84 70 - 100 MG/DL [facility] Performing Organization Address City/[facility] Phone Number [facility] [address] [place] [address] * POC GLUCOSE (09/18/2018 9:55 AM CDT) Glucose, POC 87 70 - 100 MG/DL [facility] Performing Organization Address [facility] Phone Number [facility] [address] [place] [address] * URINALYSIS, MICROSCOPIC (09/18/2018 6:10 AM CDT) WBCs,UA 0-2 0 - 2 /HPF [facility] RBCs,UA 0-2 0 - 3 /HPF [facility] MucousUA TRACE [facility] Bacteria,UA FEW (A) NEG-NEG [facility] Squamous Epithelial Cells 2-5 0 - 5 [facility] Specimen Urine - Urine Performing Organization Address [facility] Phone Number [facility] [address] [place] [address] * URINALYSIS DIPSTICK (09/18/2018 6:10 AM CDT) Color,UA YELLOW [facility] Turbidity,UA CLEAR CLEAR-CLEAR [facility] Specific [employer]-Urine 1.014 1.003 - 1.035 [facility] pH,UA [...] Specimen Urine - Urine Performing Organization Address [facility] Phone Number [facility] [address] [place] [address] * POC GLUCOSE (09/18/2018 4:41 AM CDT) Glucose, POC 159 (H) 70 - 100 MG/DL MAIN LAB Performing Organization Address [facility] Phone Number MAIN LAB [address] [place] [address] * FREE T4-FREE THYROXINE (09/18/2018 1:43 AM CDT) T4-Free 1.0 0.6 - 1.6 NG/DL [facility] Performing Organization Address [facility] Phone Number MAIN LAB [address] [place] [address] * C REACTIVE PROTEIN (CRP) (09/18/2018 1:43 AM CDT) C-Reactive Protein 0.16 <1.0 MG/DL MAIN LAB Specimen Blood Performing Organization Address [facility] Phone Number MAIN LAB [address] [place] [address] * SED RATE (09/18/2018 1:43 AM CDT) Sed Rate -ESR <1 0 - 30 MM/HR MAIN LAB Specimen Blood Performing Organization Address [facility] Phone Number MAIN LAB [address] [place] [address] * PERIPHERAL SMEAR (09/18/2018 1:43 AM CDT) Peripheral Smear NORMOCYTIC ANEMIA WITH MAIN LAB ANISOCYTOSIS. MILD EOSINOPHILIA MILD MONOCYTOSIS PLATELETS APPEAR NORMAL IN NUMBER AND MORPHOLOGY. Pathologist Signature INTERPRETED BY CHONG ROYAL MAIN BLU SCHAEFFER M.D. By the PATH SIGNATURE ABOVE, I attest that I have personally formulated the final interpretation expressed in this report and that the above diagnosis is based upon my examination of the slides and/or other material indicated in this report. Specimen Blood Performing Organization Address [facility] Phone Number MAIN LAB [address] [place] [address] * TSH WITH FREE T4 REFLEX (09/18/2018 1:43 AM CDT) TSH 6.140 (H) 0.35 - 5.00 MCU/ML MAIN LAB Specimen Blood Performing Organization Address [facility]/Zipcode Phone Number MAIN LAB [address] [place] [address] * LIPID PROFILE (09/18/2018 1:43 AM CDT) Cholesterol 176 <200 MG/DL [facility] Triglycerides 161 (H) <150 MG/DL [facility] HDL 53 >40 MG/DL [facility] LDL 96 <100 MG/DL [facility] VLDL 32 MG/DL [facility] Non HDL Cholesterol 123 MG/DL [facility] Comment: Calculated non-HDL Cholesterol (non-HDL-C) indirectly measures LDL-C, Lp(a), IDL-C, and VLDL-C.It is a surrogate marker for Apoprotein B.Goal should be less than 130 mg/dL. Specimen Blood Performing Organization Address [facility] Phone Number MAIN LAB [address] [place] [phone] * HEMOGLOBIN A1C (09/18/2018 1:43 AM CDT) Hemoglobin A1C 9.8 (H) 4.0 - 6.0 % MAIN LAB Comment: The ADA recommends that most patients with type 1 and type 2 diabetes maintain an A1c level <7%. Specimen Blood Performing Organization Address [facility] Phone Number MAIN LAB [address] [place] [address] * PHOSPHORUS (09/18/2018 1:43 AM CDT) Phosphorus 3.7Comment: NOTE NEW REFERENCE 2.0 - 4.5 MG/DL [facility] RANGES Specimen Blood Performing Organization Address [facility] Phone Number MAIN LAB [address] [place] [address] * MAGNESIUM (09/18/2018 1:43 AM CDT) Magnesium 1.9 1.6 - 2.6 mg/dL MAIN LAB Specimen Blood Performing Organization Address City/[facility]/Zipcode Phone Number MAIN LAB [address] [place] [address] * BLOOD GASES, PERIPHERAL VENOUS (09/17/2018 9:39 PM CDT) pH-Venous 7.49 (H) 7.30 - 7.40 [facility] PCO2-Venous 37 36 - 50 MMHG [facility] PO2-Venous 47 33 - 48 MMHG [facility] Base Excess-Venous 4.7 MMOL/L [facility] O2 Sat-Venous 82.6 (H) 55 - 71 % [facility] Wfejkrjjqcp-IDV-Tcq 28.3 MMOL/L [facility] Specimen Blood, venous - Blood Performing Organization Address [facility] Phone Number [facility] [address] [place] [address] * BETA HYDROXYBUTYRATE (KETONES) (09/17/2018 9:39 PM CDT) Beta Hydroxybutyrate 2.7 (H) <0.3 MMOL/L [facility] Comment: Beta hydroxybutyrate (BOHB) is the most abundant ketone (78%), followed by acetoacetate (20%) and acetone (2%).Measurement BOHB is recommended to assess ketones in DKA. Expected BOHB Results for DKA: Initial presentation high/increasing During treatment decreasing Resolved decreasing/normal Specimen Blood Performing Organization Address [facility] Phone Number MAIN LAB [address] [place] [address] * LIPASE (09/17/2018 9:39 PM CDT) Lipase 7 (L) 11 - 82 U/L [facility] Specimen Blood Performing Organization Address [facility] Phone Number MAIN LAB [address] [place] [address] * COMPREHENSIVE METABOLIC PANEL (09/17/2018 9:39 PM CDT) Sodium 138 137 - 147 MMOL/L [facility] Potassium 3.2 (L) 3.5 - 5.1 MMOL/L [facility] Chloride 99 98 - 110 MMOL/L [facility] Glucose 230 (H) 70 - 100 MG/DL [facility] Blood Urea Nitrogen 17 7 - 25 MG/DL [facility] Creatinine 0.86 0.4 - 1.00 MG/DL [facility] Calcium 9.0 8.5 - 10.6 MG/DL [facility] Total Protein 5.9 (L) 6.0 - 8.0 G/DL [facility] Total Bilirubin 0.4 0.3 - 1.2 MG/DL [facility] Albumin 3.8 3.5 - 5.0 G/DL [facility] Alk Phosphatase 54 25 - 110 U/L [facility] AST (SGOT) 20 7 - 40 U/L [facility] [...] City/State/Zipcode Phone Number [facility] [address] [place] [address] * CBC AND DIFF (09/17/2018 9:39 PM CDT) White Blood Cells 13.2 (H) 4.5 - 11.0 K/UL [facility] RBC 4.26 4.0 - 5.0 M/UL [facility] Hemoglobin 12.3 12.0 - 15.0 GM/DL [facility] Hematocrit 36.6 36 - 45 % [facility] MCV 86.0 80 - 100 FL [facility] MCH 28.9 26 - 34 PG [facility] MCHC 33.6 32.0 - 36.0 G/DL [facility] RDW 18.3 (H) 11 - 15 % [facility] Platelet Count 204 150 - 400 K/UL [facility] MPV 8.6 7 - 11 FL [facility] Neutrophils 43 41 - 77 % [facility] Lymphocytes 40 24 - 44 % [facility] Monocytes 8 4 - 12 % [facility] Eosinophils 9 (H) 0 - 5 % [facility] Basophils 0 0 - 2 % [facility] Absolute Neutrophil Count 5.70 1.8 - 7.0 K/UL [facility] Absolute Lymph Count 5.30 (H) 1.0 - 4.8 K/UL [facility] Absolute Monocyte Count 1.10 (H) 0 - 0.80 K/UL [facility] Absolute Eosinophil Count 1.20 (H) 0 - 0.45 K/UL [facility] Absolute Basophil Count 0.00 0 - 0.20 K/UL [facility] Specimen Blood Performing Organization Address City/State/Zipcode Phone Number [facility] [address] [place] [address] * URINALYSIS, MICROSCOPIC (09/17/2018 8:30 PM CDT) WBCs,UA 2-10 0 - 2 /HPF [facility] RBCs,UA 0-2 0 - 3 /HPF [facility] MucousUA TRACE [facility] Bacteria,UA MODERATE (A) NEG-NEG [facility] Squamous Epithelial Cells 5-10 0 - 5 [facility] Specimen Urine - Urine Performing Organization Address [facility] Phone Number [facility] [address] [place] [address] * URINALYSIS DIPSTICK (09/17/2018 8:30 PM CDT) Color,UA YELLOW [facility] Turbidity,UA 1+ (A) CLEAR-CLEAR [facility] Specific [employer]-Urine 1.021 1.003 - 1.035 [facility] pH,UA 5.0 5.0 - 8.0 [facility] Protein,UA 1+ (A) NEG-NEG [facility] Glucose,UA 1+ (A) NEG-NEG [facility] Ketones,UA 2+ (A) NEG-NEG [facility] Bilirubin,UA NEG NEG-NEG [facility] Blood,UA NEG NEG-NEG [facility] Urobilinogen,UA NORMAL NORM-NORMAL [facility] Nitrite,UA NEG NEG-NEG [facility] Leukocytes,UA TRACE (A) NEG-NEG [facility] Urine Ascorbic Acid, UA NEG NEG-NEG MAIN LAB Specimen Urine - Urine Performing Organization Address [facility] Phone Number MAIN LAB [address] [place] [address] * ECG-SCAN (09/17/2018 8:15 PM CDT) Narrative Performed At Ordered by an unspecified provider. * POC GLUCOSE (09/17/2018 6:49 PM CDT) Glucose, POC 218 (H) 70 - 100 MG/DL [facility] Performing Organization Address [facility] Phone Number [facility] [address] [place] [address] in this encounter Visit Diagnoses Diagnosis Abdominal pain, epigastric Nausea and vomiting, intractability of vomiting not specified, unspecified vomiting type Fatigue, unspecified type Other dysphagia Epigastric pain Abdominal pain, epigastric Weight loss Loss of weight Loss of weight Constant low-grade dysphagia Other dysphagia Abdominal pain, unspecified abdominal location Stomach ache Dyspepsia and other specified disorders of function of stomach 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 Other constipation Intractable cyclical vomiting with nausea Type 1 diabetes, uncontrolled, 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, uncontrolled Dysthymia Dysthymic disorder Migraine with aura and with status migrainosus, not intractable Migraine with aura, with intractable migraine, so stated, with status migrainosus Anxiety Anxiety state, unspecified Chronic abdominal pain Abdominal pain, unspecified site Orthostatic hypotension LAD (lymphadenopathy), axillary Enlargement of lymph nodes Acquired hypothyroidism Unspecified hypothyroidism in this encounter Admitting Diagnoses Diagnosis Abdominal pain Abdominal pain, unspecified site in this encounter Administered Medications Action Date Dose Rate Site Medication Order MAR Action 09/27/2018 11:18 AM LAST SAWYER 325 mg acetaminophen (TYLENOL) tablet 325 mg Given 325 mg, Oral, EVERY 6 HOURS PRN, Starting 09/20/18 at 1955, Until Sun09/27/18 at 1633, Pain non-opioid: may be used alone or in combination with opioid analgesia, TOTAL ACETAMINOPHEN DOSE NOT TO EXCEED 4GM DAILY, 325 mg Given 09/26/2018 9:22 PM LAST SAWYER 325 mg Given 09/26/2018 2:51 PM LAST SAWYER 09/21/2018 6:42 AM CDT 30 mL acetaminophen/lidocaine/antacid DS(#) Given (GI COCKTAIL) 1:1:3 suspension 30 mL 30 mL, Oral, ONCE, 1 dose, 09/21/18 at 0630, 30mL (1:1:3)=192mg/6mL acetamin-6mL 2% vis lidocaine-18mL Antacid DS, 09/27/2018 11:48 AM LAST SAWYER 30 mL acetaminophen/lidocaine/antacid DS(#) Given (GI COCKTAIL) 1:1:3 suspension 30 mL 30 mL, Oral, FOUR TIMES DAILY PRN, Starting 09/21/18 at 1154, Until Sun09/27/18 at 1633, Indigestion/Heartburn, 30mL (1:1:3)=192mg/6mL acetamin-6mL 2% vis lidocaine-18mL Antacid DS, 30 mL Given 09/27/2018 3:58 AM LAST SAWYER 30 mL Given 09/26/2018 8:36 PM LAST SAWYER 09/27/2018 1:56 PM LAST SAWYER 0.5 mg ALPRAZolam (XANAX) tablet 0.5 mg Given 0.5 mg, Oral, TWICE DAILY PRN, Starting Sun09/18/18 at 1218, Until Sun09/27/18 at 1633, Anxiety PO 0.5 mg Given 09/27/2018 8:18 AM LAST SAWYER 0.5 mg Given 09/26/2018 2:51 PM LAST SAWYER 09/23/2018 3:45 PM LAST SAWYER 10 mL barium sulfate 40 % (VARIBAR HONEY) oral Given suspension 10 mL 10 mL, Oral, ONCE, 1 dose, 09/23/18 at 1545, GI Procedure Area Only 09/23/2018 3:45 PM LAST SAWYER 10 mL barium sulfate 40 % (VARIBAR NECTAR) Given oral suspension 10 mL 10 mL, Oral, ONCE, 1 dose, 09/23/18 at 1545, GI Procedure Area Only 09/23/2018 3:45 PM LAST SAWYER 10 mL barium sulfate 40 % (VARIBAR PUDDING) Given oral paste 10 mL 10 mL, Oral, ONCE, 1 dose, 09/23/18 at 1545, GI Procedure Area Only 09/23/2018 3:45 PM LAST SAWYER 10 mL barium sulfate 40 % (VARIBAR THIN Given LIQUID) oral powder for suspension 10 mL 10 mL, Oral, ONCE, 1 dose, 09/23/18 at 1545, Mixing Instructions: 1. Gently shake the barium sulfate to loosen the powder. 2. Remove Cap. Add water to the 40% (w/v) line and replace the cap. 3. Invert bottle and tap with fingers to mix the powder into the water. 4. Shake vigorously for 30 seconds. Let stand for 5 minutes. 5. Suspension has hydrated and settled. Re-fill with water to the 40% line and replace cap. 6. Re-shake thoroughly. Product is now ready for use., GI Procedure Area Only 09/27/2018 8:11 AM LAST SAWYER 400 mg carBAMazepine (TEGRETOL) tablet 400 mg Given 400 mg, Oral, DAILY, First dose on Sun09/18/18 at 0900, Until Discontinued 400 mg Given 09/26/2018 8:15 AM LAST SAWYER 400 mg Given 09/25/2018 8:34 AM LAST SAWYER 09/20/2018 7:11 AM CDT 1,000 mL 75 mL/hr dextrose 5 % & 0.9% NaCl infusion Given - New 1,000 mL, 1,000 mL, Intravenous, at 75 Bag mL/hr, CONTINUOUS, Starting Sun09/19/18 at 0430, Until Sun09/20/18 at 1653 1,000 mL 75 mL/hr Given - New Bag 09/19/2018 6:21 PM CDT 1,000 mL 75 mL/hr Given - New Bag 09/19/2018 4:42 AM CDT 09/19/2018 3:46 AM CDT 50 mL DEXTROSE 50 % IN WATER (D50W) IV SYRG Given (Cabinet Override) NOW, 1 dose, Sun09/19/18 at 0345, Created by cabinet override NOTE: This is a HIGH ALERT Medication., Created by cabinet override, 09/27/2018 8:12 AM LAST [facility] [address] (CYMBALTA) capsule 60 mg Given 60 mg, Oral, TWICE DAILY, First dose on Sun09/18/18 at 2100, Until Discontinued 60 mg Given 09/26/2018 8:26 PM LAST SAWYER 60 mg Given 09/26/2018 8:15 AM LAST SAWYER 09/18/2018 8:24 AM CDT [address] (CYMBALTA) capsule 90 mg Given 90 mg, Oral, DAILY, First dose on Sun09/18/18 at 0900, Until Discontinued electrolyte GUT PEG (NULYTELY, COLYTE, GAVILYTE-N) oral solution 2 L 2 L, Oral, NEEDED (FISH TRAPPER FROM RX), Starting Sun09/19/18 at 1731, Until Sun09/27/18 at 1633, Other..., bowel prep not progressing, Instructions: Check Progress at 0500, if not clear then give additional 2 liters Send message to pharmacy to obtain another bottle. Add one of the four attached flavor packets during mixing., 09/18/2018 11:43 AM CDT 4 L electrolyte GUT PEG (NULYTELY, COLYTE, Given GAVILYTE-N) oral solution 4 L 4 L, Oral, ONCE, 1 dose, Sun09/18/18 at 1100, Note: Add one of the four attached flavor packets during mixing., 09/19/2018 6:20 PM CDT 4 L electrolyte GUT PEG (NULYTELY, COLYTE, Given GAVILYTE-N) oral solution 4 L 4 L, Oral, SEE ADMIN INSTRUCTIONS, Starting Varsha 09/19/18 at 1800, Until Sun09/27/18 at 1311, Begin 2 L of bowel preparation at 1800 the night prior to the colonoscopy, finish in 2 hours or 8 ounces every 15 min. Begin the second 2 L of bowel preparation at 0300 the morning of the procedure, finish in 2 hours or 8 ounces every 15 min. Note: Add one of the four attached flavor packets during mixing., 09/21/2018 9:23 PM CDT 40 mg Abdominal Tissue enoxaparin (LOVENOX) syringe 40 mg Given 40 mg, Subcutaneous, DAILY, First dose on Sun09/18/18 at 0115, Until Discontinued, For patients undergoing surgery: Consult physician in advance -- enoxaparin is an anticoagulant and may need to be held for 12hr prior to surgery or invasive procedures. NOTE: This is a HIGH ALERT Medication., 40 mg Abdominal Tissue Given 09/20/2018 8:07 PM CDT 40 mg Abdominal Tissue Given 09/18/2018 8:00 PM CDT 09/27/2018 8:41 AM LAST SAWYER 25 mcg fentaNYL citrate PF (SUBLIMAZE) Given injection 12.5-25 mcg 12.5-25 mcg, Intravenous, EVERY 2 HOURS PRN, Starting Varsha 09/26/18 at 1055, Until Sun09/27/18 at 1154, Pain Injectable 25 mcg Given 09/27/2018 6:33 AM LAST SAWYER 25 mcg Given 09/27/2018 3:57 AM LAST SAWYER 09/26/2018 8:43 AM LAST SAWYER 25 mcg fentaNYL citrate PF (SUBLIMAZE) Given injection 25 mcg 25 mcg, Intravenous, ONCE, 1 dose, Varsha 09/26/18 at 0830 09/26/2018 11:12 AM LAST SAWYER 25 mcg fentaNYL citrate PF (SUBLIMAZE) Given injection 25 mcg 25 mcg, Intravenous, ONCE, 1 dose, Varsha 09/26/18 at 1045 09/24/2018 7:47 AM LAST SAWYER 50 mcg fentaNYL citrate PF (SUBLIMAZE) Given injection 50 mcg 50 mcg, Intravenous, ONCE, 1 dose, 09/24/18 at 0730 09/24/2018 8:20 AM LAST SAWYER 50 mcg fentaNYL citrate PF (SUBLIMAZE) Given injection INTRA-PROCEDURE MED, Starting Sun09/24/18 at 0820, Until Sun09/24/18 at 0820 ferrous sulfate (FEOSOL, FEROSUL) tablet 325 mg 325 mg, Oral, DAILY, First dose on Sun09/28/18 at 0800, Until Discontinued, Each 325mg ferrous sulfate delivers 65mg elemental iron., 09/27/2018 8:11 AM LAST SAWYER 0.3 mg fludrocortisone (FLORINEF) tablet 0.3 mg Given 0.3 mg, Oral, DAILY, First dose on Sun09/18/18 at 0900, Until Discontinued 0.3 mg Given 09/26/2018 8:15 AM LAST SAWYER 0.3 mg Given 09/25/2018 8:34 AM LAST SAWYER 09/17/2018 10:39 PM CDT 2 mg haloperidol (HALDOL) injection 2 mg Given 2 mg, Intravenous, ONCE, 1 dose, Sun09/17/18 at 2200, PROTECT FROM LIGHT, 09/27/2018 1:42 PM LAST SAWYER 500 Units heparin lock flush PF syringe 500 Units Given 500 Units, Intra-catheter, ONCE PRN, 1 dose, Starting Sun09/27/18 at 1328, Until Sun09/27/18 at 1342, Catheter flush, When de-accessing a port-a-cath pack with 5 mL heparin (100 units/mL) unless contraindicated. NOTE: This is a HIGH ALERT Medication., 09/27/2018 12:00 PM LAST SAWYER 1 tablet HYDROcodone/acetaminophen (NORCO) 5/325 Given mg tablet 1 tablet 1 tablet, Oral, EVERY 6 HOURS PRN, Starting Sun09/27/18 at 1154, Until Sun09/27/18 at 1633, Pain PO, TOTAL ACETAMINOPHEN DOSE NOT TO EXCEED 4GM DAILY NOTE: This is a HIGH ALERT Medication., 09/27/2018 11:00 AM LAST SAWYER 3 Units Arm, Right insulin aspart U-100 (NOVOLOG FLEXPEN) Given injection PEN 0-7 Units 0-7 Units, Subcutaneous, BEFORE MEALS AND AT BEDTIME, First dose on Sun09/18/18 at 1100, Until Discontinued, -POC glucose 140-180mg/dL at , , 17 administer 1 unit insulin, at 21, 03* administer 0 units. -POC glucose 181-220mg/dL at 07, 11, 17 administer 2 units insulin, at , * [...] NOT uncheck "Do not dispense", 2 Units Arm, Right Given 09/26/2018 7:00 PM LAST SAWYER 1 Units Arm, Right Given 09/26/2018 11:17 AM LAST SAWYER 09/22/2018 12:28 PM LAST SAWYER 2 Units Arm, Right insulin aspart U-100 (NOVOLOG FLEXPEN) Given injection PEN 2 Units 2 Units, Subcutaneous, THREE TIMES DAILY AFTER MEALS, First dose on 09/22/18 at 1145, Until Discontinued, - Post Meal Dosing: give [...] request. DO NOT uncheck "Do not dispense", 09/23/2018 4:39 PM LAST SAWYER 4 Units Arm, Left insulin aspart U-100 (NOVOLOG FLEXPEN) Given injection PEN 4 Units 4 Units, Subcutaneous, THREE TIMES DAILY WITH MEALS, First dose on Sun09/23/18 at 1230, Until Discontinued, Hold if NPO for procedure, unable to eat, or if FSBS < 70 mg/dL Give at start of meal. NOTE: This is a HIGH ALERT Medication., Dispense pens manually with initial order and then upon request. DO NOT uncheck "Do not dispense", 09/24/2018 10:20 AM LAST SAWYER 5 Units Arm, Left insulin aspart U-100 (NOVOLOG FLEXPEN) Given injection PEN 5 Units 5 Units, Subcutaneous, THREE TIMES DAILY WITH MEALS, First dose on Sun09/23/18 at 1800, Until Discontinued, Hold if NPO for procedure, unable to eat, or if FSBS < 70 mg/dL Give at start of meal. NOTE: This is a HIGH ALERT Medication., Dispense pens manually with initial order and then upon request. DO NOT uncheck "Do not dispense", 09/25/2018 5:30 PM LAST SAWYER 8 Units Arm, Left insulin aspart U-100 (NOVOLOG FLEXPEN) Given injection PEN 8 Units 8 Units, Subcutaneous, THREE TIMES DAILY WITH MEALS, First dose on Sun09/24/18 at 1315, Until Discontinued, Hold if NPO for procedure, unable to eat, or if FSBS < 70 mg/dL Give at start of meal. NOTE: This is a HIGH ALERT Medication., Dispense pens manually with initial order and then upon request. DO NOT uncheck "Do not dispense", 8 Units Arm, Right Given 09/25/2018 12:35 PM LAST SAWYER 8 Units Arm, Right Given 09/24/2018 6:30 PM LAST SAWYER 09/27/2018 11:50 AM LAST SAWYER 8 Units Arm, Right insulin aspart U-100 (NOVOLOG FLEXPEN) Given injection PEN 8 Units 8 Units, Subcutaneous, THREE TIMES DAILY AFTER MEALS, First dose on Sun09/26/18 at 1900, Until Discontinued, - Post Meal Dosing: give [...] request. DO NOT uncheck "Do not dispense", 8 Units Arm, Right Given 09/26/2018 7:00 PM LAST SAWYER 09/25/2018 9:19 PM LAST SAWYER 13 Units Abdominal Tissue insulin glargine (LANTUS SOLOSTAR, Given BASAGLAR) injection PEN 13 Units 13 Units, Subcutaneous, AT BEDTIME DAILY, First dose on Sun09/22/18 at 2100, Until Discontinued, Continue if NPO. DO NOT mix with other insulins -- Do not mix with other insulins -- NOTE: This is a HIGH ALERT Medication., Dispense pens manually with initial order and then upon request. DO NOT uncheck "Do not dispense", 13 Units Arm, Left Given 09/24/2018 8:39 PM LAST SAWYER 13 Units Arm, Right Given 09/23/2018 8:03 PM LAST SAWYER 09/21/2018 9:28 PM CDT 14 Units Arm, Right insulin glargine (LANTUS SOLOSTAR, Given BASAGLAR) injection PEN 14 Units 14 Units, Subcutaneous, AT BEDTIME DAILY, First dose on Varsha 09/19/18 at 2200, Until Discontinued, Continue if NPO. DO NOT mix with other insulins -- Do not mix with other insulins -- NOTE: This is a HIGH ALERT Medication., Dispense pens manually with initial order and then upon request. DO NOT uncheck "Do not dispense", 14 Units Abdominal Tissue Given 09/20/2018 9:05 PM CDT 14 Units Abdominal Tissue Given 09/19/2018 10:30 PM CDT 09/18/2018 8:01 PM CDT 15 Units Arm, Right insulin glargine (LANTUS SOLOSTAR, Given BASAGLAR) injection PEN 15 Units 15 Units, Subcutaneous, AT BEDTIME DAILY, First dose on Sun09/18/18 at 0115, Until Discontinued, -- Do not mix with other insulins -- NOTE: This is a HIGH ALERT Medication., 15 Units Abdominal Tissue Given 09/18/2018 1:40 AM CDT 09/26/2018 8:46 PM LAST SAWYER 15 Units Arm, Left insulin glargine (LANTUS SOLOSTAR, Given BASAGLAR) injection PEN 15 Units 15 Units, Subcutaneous, AT BEDTIME DAILY, First dose on Sun09/26/18 at 2100, Until Discontinued, Continue if NPO. DO NOT mix with other insulins -- Do not mix with other insulins -- NOTE: This is a HIGH ALERT Medication., Dispense pens manually with initial order and then upon request. DO NOT uncheck "Do not dispense", 09/18/2018 6:30 PM CDT 130 mL iopamidol 370 (ISOVUE-370) injection 130 Given mL 130 mL, Intravenous, ONCE, 1 dose, Sun09/18/18 at 1830, NOTE: This is a HIGH ALERT Medication., 09/26/2018 12:15 PM LAST SAWYER 80 mL iopamidol 370 (ISOVUE-370) injection 80 Given mL 80 mL, Intravenous, ONCE, 1 dose, Sun09/26/18 at 1215, NOTE: This is a HIGH ALERT Medication., 09/17/2018 9:41 PM CDT 1,000 mL 999 mL/hr lactated ringers infusion Given - New 1,000 mL, 1,000 mL, Intravenous, at 999 Bag mL/hr, BOLUS, 1 dose, Sun09/17/18 at 2100 09/20/2018 2:32 PM CDT 1,000 mL lactated ringers infusion Given - New 1,000 mL, Intravenous, CONTINUOUS, Bag Starting Sun09/20/18 at 1415, Until 09/21/18 at 1115, Pre-Op 09/27/2018 1:53 AM LAST SAWYER 100 mL/hr lactated ringers infusion Given - New 1,000 mL, Intravenous, at 100 mL/hr, Bag CONTINUOUS, Starting Varsha 09/26/18 at 1100, Until Sun09/27/18 at 1633 Given - New Bag 09/26/2018 4:50 PM LAST SAWYER 100 mL/hr Given - New Bag 09/26/2018 12:39 PM LAST SAWYER 09/27/2018 6:33 AM LAST SAWYER 175 mcg levothyroxine (SYNTHROID) tablet 175 mcg Given 175 mcg, Oral, DAILY 30MIN BEFORE BREAKFAST, First dose on Sun09/18/18 at 0630, Until Discontinued, Give 1 hour before a meal. If patient is receiving tube feedings, hold tube feed 1hr before and 1hr after dose., 175 mcg Given 09/26/2018 6:40 AM LAST SAWYER 175 mcg Given 09/25/2018 5:59 AM LAST SAWYER 09/24/2018 3:19 PM LAST SAWYER 2 mg loperamide (IMODIUM A-D) capsule 2 mg Given 2 mg, Oral, NEEDED, Starting Sun09/24/18 at 1533, Until Sun09/25/18 at 1058, Diarrhea, GIVE WITH EACH LOOSE STOOL; NOT TO EXCEED 16MG/24HRS, 09/27/2018 8:11 AM LAST SAWYER 4 mg loperamide (IMODIUM A-D) capsule 4 mg Given 4 mg, Oral, NEEDED, Starting Sun09/25/18 at 1058, Until Sun09/27/18 at 1633, Diarrhea, GIVE WITH EACH LOOSE STOOL; NOT TO EXCEED 16MG/24HRS, 4 mg Given 09/26/2018 6:47 AM LAST SAWYER 4 mg Given 09/25/2018 11:47 AM LAST SAWYER 09/24/2018 8:10 AM LAST SAWYER 1 mg midazolam (VERSED) injection 1 mg Given 1 mg, Intravenous, ONCE, 1 dose, Sun09/24/18 at 0730 09/24/2018 8:26 AM LAST SAWYER 1 mg midazolam (VERSED) injection Given INTRA-PROCEDURE MED, Starting Sun09/24/18 at 0826, Until Sun09/24/18 at 0826 09/17/2018 9:41 PM CDT 4 mg morphine injection syringe 4 mg Given 4 mg, Intravenous, ONCE, 1 dose, Sun09/17/18 at 2100 09/26/2018 8:44 PM LAST SAWYER 4 mg ondansetron (ZOFRAN) injection 4 mg Given 4 mg, Intravenous, EVERY 6 HOURS PRN, Starting Sun09/18/18 at 0109, Until Sun09/27/18 at 1633, Nausea/Vomiting Injectable 4 mg Given 09/18/2018 1:39 AM CDT 09/21/2018 3:47 AM CDT 5 mg oxyCODONE (ROXICODONE, OXY-IR) tablet 5 Given mg 5 mg, Oral, EVERY 6 HOURS PRN, Starting Sun09/20/18 at 2118, Until 09/21/18 at 1154, Pain PO 5 mg Given 09/20/2018 9:43 PM CDT 09/19/2018 5:18 AM CDT 10 mEq 50 mL/hr potassium chloride in water IVPB 10 mEq Given - New 10 mEq, Intravenous, 50 mL, Administer Bag over 60 Minutes, EVERY 1 HOUR FOR 2 DOSES, 2 doses, First dose on Sun09/19/18 at 0600, Last dose on Sun09/19/18 at 0700, NOTE: This is a HIGH ALERT Medication., 09/19/2018 10:57 AM CDT 10 mEq 50 mL/hr potassium chloride in water IVPB 10 mEq Given - New 10 mEq, Intravenous, 50 mL, Administer Bag over 60 Minutes, EVERY 1 HOUR FOR 5 DOSES, 5 doses, First dose on Varsha 09/19/18 at 0600, Last dose on Sun09/19/18 at 1000, NOTE: This is a HIGH ALERT Medication., 10 mEq 50 mL/hr Given - New Bag 09/19/2018 9:50 AM CDT 10 mEq 50 mL/hr Given - New Bag 09/19/2018 9:02 AM CDT 09/20/2018 1:47 PM CDT 10 mEq 50 mL/hr potassium chloride in water IVPB 10 mEq Given - New 10 mEq, Intravenous, 50 mL, Administer Bag over 60 Minutes, EVERY 1 HOUR FOR 2 DOSES, 2 doses, First dose on Sun09/20/18 at 1300, Last dose on Sun09/20/18 at 1400, NOTE: This is a HIGH ALERT Medication., 10 mEq 50 mL/hr Given - New Bag 09/20/2018 12:51 PM CDT 09/22/2018 7:10 PM LAST SAWYER 10 mEq 50 mL/hr potassium chloride in water IVPB 10 mEq Given - New 10 mEq, Intravenous, 50 mL, Administer Bag over 60 Minutes, EVERY 1 HOUR FOR 5 DOSES, 5 doses, First dose on Sun09/22/18 at 1500, Last dose on Sun09/22/18 at 1900, NOTE: This is a HIGH ALERT Medication., 10 mEq 50 mL/hr Given - New Bag 09/22/2018 6:15 PM LAST SAWYER 10 mEq 50 mL/hr Given - New Bag 09/22/2018 5:07 PM LAST SAWYER 09/20/2018 12:54 PM CDT 40 mEq potassium chloride SR (K-DUR) tablet 40 Given mEq 40 mEq, Oral, ONCE, 1 dose, Sun09/20/18 at 1300, - Tablet may be dispersed in water. Place tab in 30 mL of water for 40-60 seconds. - Gently swirl until fully dispersed. If particles remain after admin, add small amount of water and admin remaining content. - DO NOT CRUSH. Tablet may be split in half. , 09/22/2018 6:21 AM LAST SAWYER 80 mEq potassium chloride SR (K-DUR) tablet 80 Given mEq 80 mEq, Oral, ONCE, 1 dose, 09/22/18 at 0615, - Tablet may be dispersed in water. Place tab in 30 mL of water for 40-60 seconds. - Gently swirl until fully dispersed. If particles remain after admin, add small amount of water and admin remaining content. - DO NOT CRUSH. Tablet may be split in half. , 09/17/2018 9:41 PM CDT 10 mg prochlorperazine (COMPAZINE) injection Given 10 mg 10 mg, Intravenous, ONCE, 1 dose, 09/17/18 at 2100, PROTECT FROM LIGHT -- May be given undiluted, or each 5mg may be diluted with 9 mL of NS to facilitate titration., 09/27/2018 8:12 AM LAST SAWYER 50 mg pyridoxine (vitamin B6) (VITAMIN B-6) Given injection 50 mg 50 mg, Intravenous, DAILY, First dose on Varsha 09/26/18 at 1830, Until Discontinued, PROTECT FROM LIGHT, 50 mg Given 09/26/2018 9:22 PM LAST SAWYER 09/23/2018 2:00 PM LAST SAWYER 1 millicurie RP DX Tc-99m sulfur colloid injection 1 Given millicurie 1 millicurie, Intravenous, ONCE, 1 dose, 09/23/18 at 0930 09/19/2018 12:33 AM CDT 1,000 mL 100 mL/hr sodium chloride 0.9 % infusion Given - New 1,000 mL, 1,000 mL, Intravenous, at 100 Bag mL/hr, CONTINUOUS, Starting 09/18/18 at 0115, Until Varsha 09/19/18 at 0422 1,000 mL 100 mL/hr Given - New Bag 09/18/2018 12:29 PM CDT 1,000 mL 100 mL/hr Given - New Bag 09/18/2018 2:42 AM CDT 09/18/2018 12:28 PM CDT 1,000 mL sodium chloride 0.9 % infusion Given - New 1,000 mL, Intravenous, CONTINUOUS, Bag Starting Sun09/18/18 at 0115, Until Sun09/20/18 at 0114, Pre-Op 09/24/2018 8:26 AM LAST SAWYER 150 mL sodium chloride 0.9 % infusion Given - New INTRA-PROCEDURE MED(CONT), Starting Tu Bag 09/24/18 at 0826, Until 09/24/18 at 0826 09/18/2018 6:30 PM CDT 50 mL sodium chloride PF 0.9% injection 50 mL Given 50 mL, Intravenous, ONCE, 1 dose, Sun09/18/18 at 1830, Intra-procedure (IR) 09/27/2018 6:33 AM LAST SAWYER 1 g sucralfate (CARAFATE) oral suspension 1 Given g/10ml Patient Own Med 1 g, Oral, BEFORE MEALS AND AT BEDTIME, First dose on 09/22/18 at 1700, Until Discontinued 1 g Given 09/26/2018 8:28 PM LAST SAWYER 1 g Given 09/26/2018 6:26 PM LAST SAWYER 09/22/2018 12:28 PM LAST SAWYER 1 g sucralfate (CARAFATE) tablet 1 g Given 1 g, Oral, BEFORE MEALS AND AT BEDTIME, First dose on 09/21/18 at 1300, Until Discontinued, Can be made into a slurry by placing 1 Sucralfate tablet in 30 mL water and allow to stand for 5 minutes. , 1 g Given 09/22/2018 6:34 AM LAST SAWYER 1 g Given 09/21/2018 9:23 PM CDT 09/26/2018 8:25 PM LAST SAWYER 5 mg zolpidem (AMBIEN) tablet 5 mg Given 5 mg, Oral, AT BEDTIME PRN, Starting Sun09/18/18 at 1256, Until Sun09/27/18 at 1633, Insomnia 5 mg Given 09/25/2018 9:33 PM LAST SAWYER 5 mg Given 09/24/2018 8:38 PM LAST SAWYER in this encounter
--- OUTSIDE RECORDS SUMMARY | 2018-12-27 18:06 | XMS REPORT | Encounter Summary ---
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 Name Role Phone Charles Chau MD Unavailable Sandra Wayne MD 3 Sandra Wayne MD PCP Sandra Wayne MD 100 Reason for Visit * Auth/Cert Referred By Contact Referred To Contact Status Reason Specialty Diagnoses / Procedures Diagnoses Abdominal pain Encounter Details Care Team Description Date Type Department Kayleigh Arias MD [address] [place] [address] 09/26/2018 Anesthesia Gastrointenstinal Event Endoscopy [address] [place], [place] [id number] Anesthesia Record Responsible Anesthesiologist Anesthesia Start Time Anesthesia Stop Time Procedure Name Kayleigh Arias MD 09/26/18 1700 09/26/18 1722 ESOPHAGOGASTRODUODENOSCOP Y with extensive gastric biopsies, concern for lymphoma involving GI tract (N/A ) Date Time Event Comment 1641 AN Equip Check 2017 1656 1659 Out of Pre Procedure 1700 Anes Start 1700 An Start Data 1700 In Room 1701 Start Supplemental O2 1704 Anesthesia Ready 1705 Proc Start 1717 an stop data 1722 Handoff to RN I completed my SBAR handoff to the receiving nurse. 1722 An Stop Meds Name Total lidocaine (2%) 200 mg/10mL Injection 100 mg syringe propofol (DIPRIVAN) 200 mg/ 20 mL 70 mg injection (VIAL) propofol (DIPRIVAN) infusion 88.97 mg lactated ringers infusion 100 mL * Name O2 N2O Inspired N2O * No blood administrations on file. Removal Type Details Placement Wounds 09/24/18; 0824; Left; Axilla; Puncture 09/24/18 0824 by Mary, (NOT for Wound; s/p lymph node bx SHAVON Echeverria Pressure Injuries) 10/18/18 1428 by Maylin Castle Portacath 07/24/18; 1807; Hand Hygiene; 07/24/18 180 by Andrew Verde (CHG); Other (Comment) SHAVON Bowen (port); Emergent-Blood Return; 10/18/18 (Port deaccessed and packed with 5 mL of heparin); 1428; Y in this encounter Social History Date Tobacco [...] Date Type Specialty Gunnar Kirk MD [address] [place] [address] [phone] Delayed gastric emptying 02/03/2019 Hospital Encounter Gunnar Kirk MD [address] [place] [address] [phone] ESOPHAGOGASTRODUODENOSCOPY WITH SPECIMEN COLLECTION BY BRUSHING/ WASHING 02/03/2019 Surgery as of this encounter Visit Diagnoses Not on filein this encounter Administered Medications Action Date Dose Rate Site Medication Order MAR Action 09/27/2018 1:53 AM MANAGER HOTEL 100 mL/hr lactated ringers infusion Given - New 1,000 mL, Intravenous, at 100 mL/hr, Bag CONTINUOUS, Starting Varsha 09/26/18 at 1100, Until Sun09/27/18 at 1633 Given - New Bag 09/26/2018 4:50 PM MANAGER HOTEL 100 mL/hr Given - New Bag 09/26/2018 12:39 PM MANAGER HOTEL 09/26/2018 5:03 PM MANAGER HOTEL 100 mg lidocaine (PF) injection Given INTRA-PROCEDURE MED, Starting Varsha 09/26/18 at 1703, Until Varsha 09/26/18 at 1723, Anesthesia Intra-op 09/26/2018 5:09 PM MANAGER HOTEL 100 mcg/kg/min 37.9 mL/hr propofol (DIPRIVAN) infusion Dose/Rate 20 mL, Intravenous, INTRA-PROCEDURE Change MED(CONT), Starting Varsha 09/26/18 at 1703, Until Varsha 09/26/18 at 1723, Anesthesia Intra-op 120 mcg/kg/min 45.4 mL/hr Dose/Rate Change 09/26/2018 5:06 PM MANAGER HOTEL 150 mcg/kg/min 56.8 mL/hr Given - New Bag 09/26/2018 5:03 PM MANAGER HOTEL 09/26/2018 5:07 PM MANAGER HOTEL 20 mg propofol (DIPRIVAN) injection Given INTRA-PROCEDURE MED, Starting Varsha 09/26/18 at 1703, Until Varsha 09/26/18 at 1723, Anesthesia Intra-op 20 mg Given 09/26/2018 5:05 PM MANAGER HOTEL 30 mg Given 09/26/2018 5:03 PM MANAGER HOTEL in this encounter
--- OUTSIDE RECORDS SUMMARY | 2018-12-27 18:09 | XMS REPORT | Encounter Summary ---
Author Author [facility] Organization [facility] Address Unknown Phone Unavailable Care Team Providers Care [employer] Name Role Phone Khoa Chau MD Unavailable Sandra Wayne MD 3 Sandra Wayne MD PCP Sandra Wayne MD 100 Reason for Visit * Reason Comments Abdominal pain onset Sun. +NV. intermittent chills/sweats. 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 involving GI tract 09/26/2018 Surgery Gastrointenstinal Endoscopy [address] [place], [place] [id number] Social History Date Tobacco Use Types Packs/Day [...] Taken Vital Sign Reading 09/27/2018 9:15 AM DEVELOPMENT SPEC Blood Pressure 137/69 09/27/2018 9:15 AM DEVELOPMENT SPEC Pulse 101 09/27/2018 9:15 AM DEVELOPMENT SPEC Temperature 36.9 C (98.5 F) - Respiratory Rate - 09/27/2018 9:15 AM DEVELOPMENT SPEC Oxygen Saturation 99% - Inhaled Oxygen - [...] Description Date Type Specialty Gunnar Kirk MD [address] [place] [address] [phone] Delayed gastric emptying 02/03/2019 Hospital Encounter Gunnar Kirk MD [address] [place] [address] [phone] ESOPHAGOGASTRODUODENOSCOPY WITH SPECIMEN COLLECTION BY BRUSHING/ WASHING 02/03/2019 Surgery Order Schedule Name Priority Associated Diagnoses ONCE for 1 Occurrences starting 09/20/2018 SURGICAL PATHOLOGY Routine Loss of weight Constant low-grade dysphagia ONCE for 1 Occurrences starting 09/26/2018 SURGICAL PATHOLOGY Routine Stomach ache as of this encounter Procedures Comments Procedure Name Priority Date/Time Associated Diagnosis TELEMETRY STRIPS-SCAN 10/03/2018 2:01 PM DEVELOPMENT SPEC POC GLUCOSE 09/27/2018 11:44 AM DEVELOPMENT SPEC DIRECT ANTIGLOBULIN Routine 09/27/2018 TEST(TITO) 11:14 AM DEVELOPMENT SPEC PERIPHERAL SMEAR Routine 09/27/2018 11:14 AM DEVELOPMENT SPEC LDH-LACTATE DEHYDROGENASE Routine 09/27/2018 11:14 AM DEVELOPMENT SPEC HAPTOGLOBIN Routine 09/27/2018 11:14 AM DEVELOPMENT SPEC POC GLUCOSE 09/27/2018 8:06 AM DEVELOPMENT SPEC CBC AND DIFF Routine 09/27/2018 4:03 AM DEVELOPMENT SPEC COMPREHENSIVE METABOLIC Routine 09/27/2018 PANEL 4:03 AM DEVELOPMENT SPEC POC GLUCOSE 09/26/2018 8:46 PM DEVELOPMENT SPEC POC GLUCOSE 09/26/2018 6:30 PM DEVELOPMENT SPEC SURGICAL PATHOLOGY 09/26/2018 5:17 PM DEVELOPMENT SPEC FLOW CYTOMETRY 09/26/2018 5:14 PM DEVELOPMENT SPEC FLOW CYTOMETRY 09/26/2018 5:14 PM DEVELOPMENT SPEC LEUKEMIA/LYMPHOMA PANEL Routine 09/26/2018 FLUID/TISSUE 5:14 PM DEVELOPMENT SPEC LEUKEMIA/LYMPHOMA PANEL Routine 09/26/2018 FLUID/TISSUE 5:14 PM DEVELOPMENT SPEC POC GLUCOSE 09/26/2018 4:06 PM DEVELOPMENT SPEC ESOPHAGOGASTRODUODENOSCOP 09/26/2018 Stomach ache Y WITH BIOPSY - FLEXIBLE 3:59 PM DEVELOPMENT SPEC ESOPHAGOGASTRODUODENOSCOP 09/26/2018 Stomach ache Y 3:59 PM DEVELOPMENT SPEC EGD REPORT 09/26/2018 3:[address] ABD/PELV W CONTRAST STAT 09/26/2018 12:14 PM DEVELOPMENT SPEC POC GLUCOSE 09/26/2018 11:16 AM DEVELOPMENT SPEC POC GLUCOSE 09/26/2018 8:18 AM DEVELOPMENT SPEC IRON + BINDING CAPACITY + Routine 09/26/2018 %SAT+ FERRITIN 4:00 AM DEVELOPMENT SPEC HEPATITIS B CORE AB TOT Routine 09/26/2018 (IGG+IGM) 4:00 AM DEVELOPMENT SPEC CBC AND DIFF Routine 09/26/2018 4:00 AM DEVELOPMENT SPEC URIC ACID Routine 09/26/2018 4:00 AM DEVELOPMENT SPEC LDH-LACTATE DEHYDROGENASE Routine 09/26/2018 4:00 AM DEVELOPMENT SPEC COMPREHENSIVE METABOLIC Routine 09/26/2018 PANEL 4:00 AM DEVELOPMENT SPEC POC GLUCOSE 09/25/2018 9:18 PM DEVELOPMENT SPEC POC GLUCOSE 09/25/2018 5:29 PM DEVELOPMENT SPEC POC GLUCOSE 09/25/2018 3:57 PM DEVELOPMENT SPEC ECG-SCAN 09/25/2018 1:00 PM DEVELOPMENT SPEC POC GLUCOSE 09/25/2018 12:22 PM DEVELOPMENT SPEC POC GLUCOSE 09/25/2018 8:22 AM DEVELOPMENT SPEC CBC AND DIFF Routine 09/25/2018 3:19 AM DEVELOPMENT SPEC COMPREHENSIVE METABOLIC Routine 09/25/2018 PANEL 3:19 AM DEVELOPMENT SPEC OVA AND PARASITES, FECAL Routine 09/25/2018 12:02 AM DEVELOPMENT SPEC GIARDIA SCREEN,FECAL Routine 09/25/2018 12:02 AM DEVELOPMENT SPEC CULTURE-FECES Routine 09/25/2018 W/SENSITIVITY 12:02 AM DEVELOPMENT SPEC CRYPTOSPORIDUM,FECAL Routine 09/25/2018 12:02 AM DEVELOPMENT SPEC POC GLUCOSE 09/24/2018 8:36 PM DEVELOPMENT SPEC POC GLUCOSE 09/24/2018 6:05 PM DEVELOPMENT SPEC URINE COLLECTION 09/24/2018 4:15 PM DEVELOPMENT SPEC CELIAC SCREEN Routine 09/24/2018 3:20 PM DEVELOPMENT SPEC ELECTROPHORESIS-SERUM Routine 09/24/2018 PROTEIN 3:20 PM DEVELOPMENT SPEC POC GLUCOSE 09/24/2018 12:30 PM DEVELOPMENT SPEC POC GLUCOSE 09/24/2018 9:36 AM DEVELOPMENT SPEC SURGICAL PATHOLOGY 09/24/2018 9:30 AM DEVELOPMENT SPEC IR PERCUTANEOUS BIOPSY Routine 09/24/2018 8:33 AM DEVELOPMENT SPEC POC GLUCOSE 09/24/2018 8:03 AM DEVELOPMENT SPEC PYRIDOXAL 5 PHOSPHATE Routine 09/24/2018 2:24 AM DEVELOPMENT SPEC CBC AND DIFF Routine 09/24/2018 2:24 AM DEVELOPMENT SPEC COMPREHENSIVE METABOLIC Routine 09/24/2018 PANEL 2:24 AM DEVELOPMENT SPEC POC GLUCOSE 09/24/2018 2:23 AM DEVELOPMENT SPEC POC GLUCOSE 09/23/2018 8:07 PM DEVELOPMENT SPEC POC GLUCOSE 09/23/2018 4:13 PM DEVELOPMENT SPEC SWALLOW MOTION SERIES Routine 09/23/2018 3:39 PM DEVELOPMENT SPEC POC GLUCOSE 09/23/2018 2:08 PM DEVELOPMENT SPEC NM GASTRIC EMPTYING TIME Routine 09/23/2018 1:03 PM DEVELOPMENT SPEC POC GLUCOSE 09/23/2018 7:45 AM DEVELOPMENT SPEC C DIFFICILE BY PCR Routine 09/23/2018 6:30 AM DEVELOPMENT SPEC POC GLUCOSE 09/23/2018 4:28 AM DEVELOPMENT SPEC CBC AND DIFF Routine 09/23/2018 3:54 AM DEVELOPMENT SPEC COMPREHENSIVE METABOLIC Routine 09/23/2018 PANEL 3:54 AM DEVELOPMENT SPEC POC GLUCOSE 09/23/2018 2:40 AM DEVELOPMENT SPEC POC GLUCOSE 09/23/2018 12:17 AM DEVELOPMENT SPEC POC GLUCOSE 09/22/2018 10:20 PM DEVELOPMENT SPEC POC GLUCOSE 09/22/2018 8:28 PM DEVELOPMENT SPEC POC GLUCOSE 09/22/2018 5:36 PM DEVELOPMENT SPEC POC GLUCOSE 09/22/2018 5:06 PM DEVELOPMENT SPEC POC GLUCOSE 09/22/2018 2:23 PM DEVELOPMENT SPEC MAGNESIUM Routine 09/22/2018 1:35 PM DEVELOPMENT SPEC BASIC METABOLIC PANEL Routine 09/22/2018 1:35 PM DEVELOPMENT SPEC POC GLUCOSE 09/22/2018 12:26 PM DEVELOPMENT SPEC POC GLUCOSE 09/22/2018 9:44 AM DEVELOPMENT SPEC POC GLUCOSE 09/22/2018 7:23 AM DEVELOPMENT SPEC POC GLUCOSE 09/22/2018 5:36 AM DEVELOPMENT SPEC FLOW CYTOMETRY 09/22/2018 4:43 AM DEVELOPMENT SPEC LEUKEMIA-LYMPHOMA PANEL Routine 09/22/2018 BLOOD 4:43 AM DEVELOPMENT SPEC CBC AND DIFF Routine 09/22/2018 4:43 AM DEVELOPMENT SPEC COMPREHENSIVE METABOLIC Routine 09/22/2018 PANEL 4:43 AM DEVELOPMENT SPEC POC GLUCOSE 09/22/2018 1:46 AM CDT POC [...] CDT POC GLUCOSE 09/20/2018 2:37 PM CDT POC GLUCOSE 09/20/2018 12:59 PM CDT POC [...] Results * TELEMETRY STRIPS-SCAN (10/03/2018 2:01 PM DEVELOPMENT SPEC) Narrative Performed At Ordered by an unspecified provider. * POC GLUCOSE (09/27/2018 11:44 AM DEVELOPMENT SPEC) Glucose, POC 227 (H) 70 - 100 MG/DL MAIN LAB Performing Organization Address [facility] Phone Number [facility] LAB [address] [place] [address] * PERIPHERAL SMEAR (09/27/2018 11:14 AM DEVELOPMENT SPEC) Peripheral Smear NORMAL RBC COUNTS WITH [facility] ANISOCYTOSIS WHITE CELLS AND PLATELETS APPEAR NORMAL IN NUMBER AND MORPHOLOGY. CIRCULATING NEOPLASTIC B CELLS IN September SPECIMEN (FLOW REPORT [id number]) IS NOTED Pathologist Signature INTERPRETED BY LAURENCE RICHARDSON M.D. [facility] By the PATH SIGNATURE ABOVE, I attest that I have personally formulated the final interpretation expressed in this report and that the above diagnosis is based upon my examination of the slides and/or other material indicated in this report. Specimen Blood Performing Organization Address [facility] Phone Number [facility] [address] [place] [address] * DIRECT ANTIGLOBULIN TEST(TITO) (09/27/2018 11:14 AM DEVELOPMENT SPEC) TITO, [employer] NEG MAIN LAB Dash ABO/RH(D) A POS MAIN LAB Specimen Blood Performing Organization Address [facility] Phone Number [facility] [address] [place] [address] * HAPTOGLOBIN (09/27/2018 11:14 AM DEVELOPMENT SPEC) Haptoglobin 97 16 - 200 MG/DL MAIN LAB Specimen Blood Performing Organization Address [facility] Phone Number [facility] [address] [place] [address] * LDH-LACTATE DEHYDROGENASE (09/27/2018 11:14 AM DEVELOPMENT SPEC) Lactate Dehydrogenase 211 (H) 100 - 210 U/L MAIN LAB Specimen Blood Performing Organization Address [facility] Phone Number [facility] [address] [place] [address] * POC GLUCOSE (09/27/2018 8:06 AM DEVELOPMENT SPEC) Glucose, POC 186 (H) 70 - 100 MG/DL [facility] MAIN LAB Performing Organization Address City/[facility]/Zipcode Phone Number [facility] MAIN LAB [address] [place] [address] * COMPREHENSIVE METABOLIC PANEL (09/27/2018 4:03 AM DEVELOPMENT SPEC) Sodium 139 137 - 147 MMOL/L KU [...] Phone Number [facility] MAIN LAB [address] [place] [address] * CBC AND DIFF (09/27/2018 4:03 AM DEVELOPMENT SPEC) White Blood Cells 12.5 (H) 4.5 - 11.0 K/UL [facility] MAIN LAB RBC 4.08 4.0 - 5.0 M/UL [facility] MAIN LAB Hemoglobin 12.1 12.0 - 15.0 GM/DL [facility] MAIN LAB Hematocrit 36.3 36 - 45 % MAIN LAB MCV 89.0 80 - 100 FL MAIN LAB MCH 29.6 26 - 34 PG MAIN LAB MCHC 33.3 32.0 - 36.0 G/DL MAIN LAB RDW 17.7 (H) 11 - 15 % [facility] MAIN LAB Platelet Count 437 (H) 150 - 400 K/UL MAIN LAB MPV 8.7 7 - 11 FL MAIN LAB Segmented Neutrophils 40 (L) 41 - 77 % MAIN LAB Lymphocytes 53 (H) 24 - 44 % MAIN LAB Monocytes 4 4 - 12 % [facility] MAIN LAB Eosinophil 2 0 - 5 % MAIN LAB Basophil 1 0 - 2 % MAIN LAB Normal RBC Morph NORMAL MAIN LAB Platelet Estimate SLT INC MAIN LAB Absolute Neutrophil Count 5.00 1.8 - 7.0 K/UL MAIN LAB Manual Specimen Blood Performing Organization Address City/[facility] Phone Number MAIN LAB [address] [place] [address] * POC GLUCOSE (09/26/2018 8:46 PM DEVELOPMENT SPEC) Glucose, POC 179 (H) 70 - 100 MG/DL MAIN LAB Performing Organization Address City/[facility] Phone Number MAIN LAB [address] [place] [address] * POC GLUCOSE (09/26/2018 6:30 PM DEVELOPMENT SPEC) Glucose, POC 202 (H) 70 - 100 MG/DL MAIN LAB Performing Organization Address [facility] Phone Number MAIN LAB [address] [place] [address] * SURGICAL PATHOLOGY (09/26/2018 5:17 PM DEVELOPMENT SPEC) PATHOLOGY REPORT [facility] inexio [facility] [email or web address] Department of Pathology and Laboratory Medicine [address] [place] [address] Surgical Pathology Office:[phone] :[phone] SURGICAL PATHOLOGY REPORT NAME: ISSA CASTRO CHELSEA Victoria SURG PATH #: [id number] MR #: [id number] SPECIMEN CLASS: SR BILLING #: [id number] ALT ID #:LOCATION: DISCHARGED DATE OF PROCEDURE: 09/26/2018 AGE:58 SEX: F DATE RECEIVED: 09/27/2018 : 1960TIME RECEIVED:08:55 PHYSICIAN: KYMBERLY US MD DATE OF REPORT: [...] material indicated in this report. +++ +++ ksw/09/27/2018 ############################## ############################## ############ Material Received: A: duodenal [...] RESULTS * FLOW CYTOMETRY (09/26/2018 5:14 PM DEVELOPMENT SPEC) PATHOLOGY REPORT [facility] [email or web address] Dave Roberson MD, Director of Flow Cytometry Laboratory Department of Pathology and Laboratory Medicine [address] [place] [address] Surgical Pathology Office:[phone] :[phone] FLOW CYTOMETRY REPORT NAME: CHELSEA LIN SURG PATH #: [id number] MR #: [id number] SPECIMEN CLASS: LC BILLING #: [id number] ALT ID #:LOCATION: [id number] DATE OF PROCEDURE: 09/26/2018 AGE:58 SEX: F DATE RECEIVED: 09/26/2018 : 1960TIME RECEIVED:18:38 PHYSICIAN: KYMBERLY US MD DATE OF REPORT: 09/27/2018 [facility] JUSTIN Sutton MD NATHAN M SANDERSE, [...] Positive Cells): CD19=1; CD19+CD5+=1; CD20=1; CD23=1; CD23+CD5+=1; [place]=0; Lambda=1; [place]:Lambda ratio=na T Cell Associated Markers (% Positive Cells): CD2=93; CD3=85; CD4=15; CD5=80; CD7=94; CD8=65 CD4:CD8 ratio=0.2 Miscellaneous Markers (% Positive Cells): CD1d=0; CD10=0; CD34=0; CD38=57; VW01=920; CD56=35; FMC7=0; EF173=1 Cell Viability (%): 82 Number of Cells Analyzed:[id number] Total Number of Markers: 19 Summary of Marker Combinations: [place]/Lambda/5/19/38/45/10/20; FMC7/23/200/34/1d/45/04/06; 2/7/5/3/4/45//8 This test was developed and its performance characteristics determined by the [facility].It has not been cleared or approved by the U.S. Food and Drug Administration (FDA).The FDA has determined that such clearance or approval is not necessary. Performing Organization Address City/State/Zipcode Phone Number [facility] LAB RESULTS * FLOW CYTOMETRY (09/26/2018 5:14 PM DEVELOPMENT SPEC) PATHOLOGY REPORT [facility] inexio [facility] [email or web address] Dvae Roberson MD, Director of Flow Cytometry Laboratory Department of Pathology and Laboratory Medicine [address] [place] [address] Surgical Pathology Office:[phone] :[phone] FLOW CYTOMETRY REPORT NAME: CHELSEA LIN SURG PATH #: [id number] MR #: [id number] SPECIMEN CLASS: LC BILLING #: [id number] ALT ID #:LOCATION: [id number] DATE OF PROCEDURE: 09/26/2018 AGE:58 SEX: F DATE RECEIVED: 09/26/2018 : 1960TIME RECEIVED:18:37 PHYSICIAN: KYMBERLY US MD DATE OF REPORT: 09/27/2018 [facility] JUSTIN Sutton MD NATHAN M SANDERSE, [...] in this report. +++Electronically Signed Out By+++ msr/09/26/2018 Interpreted by: Dave Roberson MD 09/27/2018 ############################## ############################## ############ Lab Data: Flow Cytometry - Lymphoma Panel B Cell Associated Markers (% Positive Cells): CD19=2; CD19+CD5+=0; CD20=2; CD23=0; CD23+CD5+=0; [place]=1; Lambda=1; [place]:Lambda ratio=1.0 T Cell Associated Markers (% Positive Cells): CD2=91; CD3=90; CD4=27; CD5=86; CD7=92; CD8=70 CD4:CD8 ratio=0.4 Miscellaneous Markers (% Positive Cells): CD1d=1; CD10=0; CD34=0; CD38=83; TH16=872; CD56=19; FMC7=1; CY980=9 Cell Viability (%): 94 Number of Cells Analyzed:95350 Total Number of Markers: 19 Summary of Marker Combinations: [place]/Lambda/5/19/38/45/10/20; FMC7/23/200/34/1d/45//; 2/7/5/3/4/45/56/8 This test was developed and its performance characteristics determined by the [facility].It has not been cleared or approved by the U.S. Food and Drug Administration (FDA).The FDA has determined that such clearance or approval is not necessary. Performing Organization Address City/[facility]/Zipcode Phone Number LAB RESULTS * LEUKEMIA/LYMPHOMA PANEL FLUID/TISSUE (09/26/2018 5:14 PM DEVELOPMENT SPEC) Leuk/Lymph Interpretation SEE PATHOLOGY REPORT MAIN LAB Specimen/LLM TISSUE MAIN LAB Specimen Tissue Performing Organization Address City/[facility] Phone Number MAIN LAB [address] [place] [address] * LEUKEMIA/LYMPHOMA PANEL FLUID/TISSUE (09/26/2018 5:14 PM DEVELOPMENT SPEC) Leuk/Lymph Interpretation SEE PATHOLOGY REPORT MAIN LAB Specimen/LLM TISSUE MAIN LAB Specimen Tissue Performing Organization Address City/[facility] Phone Number MAIN LAB [address] [place] [address] * POC GLUCOSE (09/26/2018 4:06 PM DEVELOPMENT SPEC) Glucose, POC 185 (H) 70 - 100 MG/DL MAIN LAB Performing Organization Address City/[facility]/Zipcode Phone Number MAIN LAB [address] [place] [address] * EGD REPORT (09/26/2018 3:43 PM DEVELOPMENT SPEC) Provation Report Patient Name: Issa OSWALD OTHER RESULTS [place] Procedure Date: 09/26/2018 3:43 PM [facility]: [id number] Date of : 1960 Gender: Female Attending Physician: Kymberly Us MD Procedure: Upper GI endoscopy Indications: Generalized abdominal pain Providers: Kymberly Us MD (Doctor), Ghazal Rhodes RN (Nurse), Tushar Vergara (Financial Market Dealer) Referring Physician: Khang Morrison Medications: Monitored Anesthesia [...] 12 seconds Procedure Code(s): --- Professional --- 98776, Esophagogastroduodenoscopy, flexible, transoral; with biopsy, single or multiple Diagnosis Code(s): --- Professional --- K31.89, Other diseases of stomach and duodenum R10.84, Generalized abdominal pain CPT copyright 2016 [employer]. All rights reserved. The codes documented in this report are preliminary and upon printed products assembler review may be revised to meet current [...] CT ABD/PELV W CONTRAST (09/26/2018 12:14 PM DEVELOPMENT SPEC) Impressions Performed At 1. No abdominopelvic inflammatory [...] Interface, Radiant Results - 09/26/2018 12:[address] ABDOMEN AND PELVIS Clinical Indication: Female, [...] on 09/26/2018 12:18 PM. Performing Organization Address City/[facility]/Zipcode Phone Number RAD RESULTS * POC GLUCOSE (09/26/2018 11:16 AM DEVELOPMENT SPEC) Glucose, POC 164 (H) 70 - 100 MG/DL MAIN LAB Performing Organization Address City/[facility] Phone Number MAIN LAB [address] [place] [address] * POC GLUCOSE (09/26/2018 8:18 AM DEVELOPMENT SPEC) Glucose, POC 228 (H) 70 - 100 MG/DL MAIN LAB Performing Organization Address [facility] Phone Number MAIN LAB [address] [place] [address] * COMPREHENSIVE METABOLIC PANEL (09/26/2018 4:00 AM DEVELOPMENT SPEC) Sodium 138 137 - 147 MMOL/L [facility] MAIN LAB Potassium 4.3 3.5 - 5.1 MMOL/L [facility] MAIN LAB Chloride 103 98 - 110 MMOL/L MAIN LAB Glucose 218 (H) 70 - [...] for questions. Specimen Blood Performing Organization Address City/[facility]/Zipcode Phone Number [facility] MAIN LAB [address] [place] [address] * CBC AND DIFF (09/26/2018 4:00 AM DEVELOPMENT SPEC) White Blood Cells 13.0 (H) 4.5 - [...] MAIN LAB Specimen Blood Performing Organization Address [facility] Phone Number [facility] MAIN LAB [address] [place] [address] * IRON + BINDING CAPACITY + %SAT+ FERRITIN (09/26/2018 4:00 AM DEVELOPMENT SPEC) Iron 41 (L) 50 - 160 MCG/DL [facility] MAIN LAB Iron Binding-TIBC 323 270 - 380 MCG/DL [facility] MAIN LAB % Saturation 13 (L) 28 - 42 % [facility] MAIN LAB Ferritin 22 10 - 200 NG/ML [facility] MAIN LAB Specimen Blood Performing Organization Address City/[facility]/Zipcode Phone Number [facility] MAIN LAB [address] [place] [address] * URIC ACID (09/26/2018 4:00 AM DEVELOPMENT SPEC) Uric Acid <1.5 (L) 2.0 - 7.0 MG/DL MAIN LAB Specimen Blood Performing Organization Address [facility] Phone Number MAIN LAB [address] [place] [address] * LDH-LACTATE DEHYDROGENASE (09/26/2018 4:00 AM DEVELOPMENT SPEC) Lactate Dehydrogenase 218 (H) 100 - 210 U/L MAIN LAB Specimen Blood Performing Organization Address [facility] Phone Number MAIN LAB [address] [place] [address] * HEPATITIS B CORE AB TOT (IGG+IGM) (09/26/2018 4:00 AM DEVELOPMENT SPEC) Anti HBc Total NEG MAIN LAB Specimen Blood Performing Organization Address [facility] Phone Number MAIN LAB [address] [place] [address] * POC GLUCOSE (09/25/2018 9:18 PM DEVELOPMENT SPEC) Glucose, POC 128 (H) 70 - 100 MG/DL MAIN LAB Performing Organization Address [facility] Phone Number MAIN LAB [address] [place] [address] * POC GLUCOSE (09/25/2018 5:29 PM DEVELOPMENT SPEC) Glucose, POC 258 (H) 70 - 100 MG/DL MAIN LAB Performing Organization Address [facility] Phone Number MAIN LAB [address] [place] [address] * POC GLUCOSE (09/25/2018 3:57 PM DEVELOPMENT SPEC) Glucose, POC 302 (H) 70 - 100 MG/DL MAIN LAB Performing Organization Address [facility] Phone Number MAIN LAB [address] [place] [address] * ECG-SCAN (09/25/2018 1:00 PM DEVELOPMENT SPEC) Narrative Performed At Ordered by an unspecified provider. * POC GLUCOSE (09/25/2018 12:22 PM DEVELOPMENT SPEC) Glucose, POC 413 (H) 70 - 100 MG/DL MAIN LAB Performing Organization Address [facility] Phone Number [facility] MA[facility] [address] [place] [address] * POC GLUCOSE (09/25/2018 8:22 AM DEVELOPMENT SPEC) Glucose, POC 181 (H) 70 - 100 MG/DL [facility] MAIN LAB Performing Organization Address [facility] Phone Number [facility] MAIN [facility] [address] [place] [address] * COMPREHENSIVE METABOLIC PANEL (09/25/2018 3:19 AM DEVELOPMENT SPEC) Sodium 137 137 - 147 MMOL/L K[facility] [...] for questions. Specimen Blood Performing Organization Address [facility]/Zipcode Phone Number [facility] MAIN LAB [address] [place] [address] * CBC AND DIFF (09/25/2018 3:19 AM DEVELOPMENT SPEC) White Blood Cells 10.5 4.5 - 11.0 [...] Neutrophils 25 (L) 41 - 77 % MAIN LAB Lymphocytes 65 (H) 24 - 44 % MAIN LAB Monocytes 5 4 - 12 % MAIN LAB Eosinophils 4 0 - 5 % MAIN LAB Basophils 1 0 - 2 % MAIN LAB Absolute Neutrophil Count 2.60 1.8 - 7.0 K/UL MAIN LAB Absolute Lymph Count 6.90 (H) 1.0 - 4.8 K/UL MAIN LAB Absolute Monocyte Count 0.60 0 - 0.80 K/UL MAIN LAB Absolute Eosinophil Count 0.40 0 - 0.45 K/UL MAIN LAB Absolute Basophil Count 0.10 0 - 0.20 K/UL MAIN LAB Specimen Blood Performing Organization Address City/[facility] Phone Number MAIN LAB [address] [place] [address] * GIARDIA SCREEN,FECAL (09/25/2018 12:02 AM DEVELOPMENT SPEC) Battery Name GIARDIA SCREEN MAIN LAB Specimen Description FECES MAIN LAB Special Requests NONE MAIN LAB Giardia EIA NEGATIVE FOR GIARDIA (LAMBLIA) MAIN LAB INTESTINALIS Report Status FINAL MAIN LAB 09/25/2018 Specimen Feces Performing Organization Address City/[facility] Phone Number MAIN LAB [address] [place] [address] * CRYPTOSPORIDUM,FECAL (09/25/2018 12:02 AM DEVELOPMENT SPEC) Battery Name CRYPTOSPORIDIUM MAIN LAB Specimen Description FECES MAIN LAB Special Requests NONE MAIN LAB Cryptosporidium NEGATIVE FOR CRYPTOSPORIDIUM MAIN LAB Report Status FINAL MAIN LAB 09/25/2018 Specimen Feces Performing Organization Address City/[facility] Phone Number MAIN LAB [address] [place] [phone] * CULTURE-FECES W/SENSITIVITY (09/25/2018 12:02 AM DEVELOPMENT SPEC) Battery Name STOOL CULTURE MAIN LAB Specimen Description FECES MAIN LAB Special Requests NONE MAIN LAB Culture NO SALMONELLA, SHIGELLA, MAIN LAB CAMPYLOBACTER, AEROMONAS, OR PLESIOMONAS SHIGA TOXIN NOT DETECTED Report Status FINAL MAIN LAB 09/28/2018 Specimen Stool - Feces Performing Organization Address [facility] [facility] Phone Number MAIN LAB [address] [place] [address] * OVA AND PARASITES, FECAL (09/25/2018 12:02 AM DEVELOPMENT SPEC) Battery Name OVA AND PARASITES MAIN LAB Specimen Description FECES MAIN LAB Special Requests NONE [facility] Ova & Parasites SEE RESULTS OF GIARDIA AND MAIN LAB CRYPTOSPORIDIUM ANTIGENS BY EIA. THE ANTIGEN DETECTION ASSAY IS MORE SENSITIVE FOR THESE PARASITES. PLEASE CONTACT THE MICROBIOLOGY LAB AT [phone] TO REQUEST FURTHER PARASITE TESTING. Report Status FINAL MAIN LAB 09/25/2018 Specimen Stool - Feces Performing Organization Address [facility] Phone Number MAIN LAB [address] [id number] * POC GLUCOSE (09/24/2018 8:36 PM DEVELOPMENT SPEC) Glucose, POC 109 (H) 70 - 100 MG/DL MAIN LAB Performing Organization Address [facility] Phone Number MAIN LAB [address] [place] [address] * POC GLUCOSE (09/24/2018 6:05 PM DEVELOPMENT SPEC) Glucose, POC 209 (H) 70 - 100 MG/DL MAIN LAB Performing Organization Address [facility] Phone Number MAIN LAB [address] [place] [address] * URINE COLLECTION (09/24/2018 4:15 PM DEVELOPMENT SPEC) Collection Period, Urine 24.0 MAIN LAB Volume, Urine 1,146 MLS MAIN LAB Performing Organization Address [facility] Phone Number [facility] LAB [address] [place] [address] * CELIAC SCREEN (09/24/2018 3:20 PM DEVELOPMENT SPEC) TTG IgA <0.5 <15 U/mL MAIN LAB Interpretation NORMAL MAIN LAB Specimen Blood Performing Organization Address [facility] Phone Number MAIN LAB [address] [place] [address] * ELECTROPHORESIS-SERUM PROTEIN (09/24/2018 3:20 PM DEVELOPMENT SPEC) Total Protein-SEP 5.0 (L) 6.0 - 8.0 [...] this report. Specimen Blood Performing Organization Address [facility] Phone Number MAIN LAB [address] [place] [address] * POC GLUCOSE (09/24/2018 12:30 PM DEVELOPMENT SPEC) Glucose, POC 334 (H) 70 - 100 MG/DL MAIN LAB Performing Organization Address [facility] Phone Number MAIN LAB [address] [place] [address] * POC GLUCOSE (09/24/2018 9:36 AM DEVELOPMENT SPEC) Glucose, POC 187 (H) 70 - 100 MG/DL MAIN LAB Performing Organization Address [facility] Phone Number MAIN LAB [address] [place] [address] * SURGICAL PATHOLOGY (09/24/2018 9:30 AM DEVELOPMENT SPEC) PATHOLOGY REPORT [facility] inexio LAB [facility] [email or web address] Department of Pathology and Laboratory Medicine [address] [place] [address] Surgical Pathology Office:[phone] :[phone] SURGICAL PATHOLOGY REPORT NAME: CHELSEA LIN SURG PATH #: [id number] MR #: [id number] SPECIMEN CLASS: SR BILLING #: [id number] ALT ID #:LOCATION: DISCHARGED DATE OF PROCEDURE: [...] 0.1 cm aggregate of two to three [id number] cylindrical soft tissue fragments. The specimen is filtered and entirely submitted in cassette A1. (tn) 09/24/2018 If immunohistochemical stains and/or in situ hybridization are cited in this report, the performance characteristics were determined by the Department of Pathology and Laboratory Medicine of the [facility] ([employer]) in compliance with CLIA'88 [...] of Pathology and Laboratory Medicine of the [facility].It has not been cleared or approved by the FDA.The FDA has determined that such clearance or approval is not necessary. Performing Organization Address City/State/Zipcode Phone Number [facility] LAB RESULTS * IR PERCUTANEOUS BIOPSY (09/24/2018 8:33 AM DEVELOPMENT SPEC) Impressions Performed At Successful ultrasound-guided biopsy of left axillary lymphadenopathy. [facility] RAD RESULTS I, Elie Iglesias M.D, the attending radiologist, was present for [...] expressed in this report Finalized by ELIE IGLESIAS on 09/25/2018 12:16 PM. Dictated by Roldan [...] Interface, Radiant Results - 09/25/2018 12:19 PM DEVELOPMENT SPEC Ultrasound guided biopsy of left axillary lymphadenopathy: [...] Successful ultrasound-guided biopsy of left axillary lymphadenopathy. I, Elie Iglesias M.D, the attending radiologist, was present for [...] expressed in this report Finalized by ELIE IGLESIAS on 09/25/2018 12:16 PM. Dictated by Roldan Reyes M.D. on 09/25/2018 10:16 AM. Performing Organization Address [facility] Phone Number RAD RESULTS * POC GLUCOSE (09/24/2018 8:03 AM DEVELOPMENT SPEC) Glucose, POC 198 (H) 70 - 100 MG/DL MAIN LAB Performing Organization Address [facility] Phone Number MAIN LAB [address] [place] [address] * COMPREHENSIVE METABOLIC PANEL (09/24/2018 2:24 AM DEVELOPMENT SPEC) Sodium 137 137 - 147 MMOL/L KU [...] for questions. Specimen Blood Performing Organization Address [facility] Phone Number MAIN LAB [address] [place] [address] * CBC AND DIFF (09/24/2018 2:24 AM DEVELOPMENT SPEC) White Blood Cells 10.4 4.5 - 11.0 K/UL [facility] MAIN LAB RBC 4.01 4.0 - 5.0 M/UL [facility] Hemoglobin 11.7 (L) 12.0 - 15.0 GM/DL [facility] Hematocrit 35.7 (L) 36 - 45 % [facility] MCV 89.0 80 - 100 FL [facility] MCH 29.2 26 - 34 PG [facility] MCHC 32.8 32.0 - 36.0 G/DL [facility] RDW 17.4 (H) 11 - 15 % [facility] MAIN LAB Platelet Count 287 150 - 400 K/UL [facility] MPV 8.8 7 - 11 FL [facility] Neutrophils 31 (L) 41 - 77 % [facility] MAIN LAB Lymphocytes 59 (H) 24 - 44 % [facility] MAIN LAB Monocytes 5 4 - 12 % [facility] Eosinophils 4 0 - 5 % [facility] Basophils 1 0 - 2 % [facility] Absolute Neutrophil Count 3.20 1.8 - 7.0 K/UL [facility] Absolute Lymph Count 6.20 (H) 1.0 - 4.8 K/UL [facility] Absolute Monocyte Count 0.50 0 - 0.80 K/UL [facility] Absolute Eosinophil Count 0.40 0 - 0.45 K/UL [facility] Absolute Basophil Count 0.10 0 - 0.20 K/UL MAIN LAB Specimen Blood Performing Organization Address City/[facility]/Zipcode Phone Number MAIN LAB [address] [place] [address] * PYRIDOXAL 5 PHOSPHATE (09/24/2018 2:24 AM DEVELOPMENT SPEC) Pyridoxal 5 Phosphate <2 REFERENCE LAB Reference range: 5 to 50 Unit: mcg/L ADDITIONAL INFORMATION This test was developed and its performance characteristics determined by [facility] in a manner consistent with CLIA requirements. This test has not been cleared or approved by the U.S. Food and Drug Administration. [place] [facility], [address], [place] [address] (L) Specimen Blood Performing Organization Address City/[facility]/Zipcode Phone Number REFERENCE LAB REFERENCE LAB See results for address. * POC GLUCOSE (09/24/2018 2:23 AM DEVELOPMENT SPEC) Glucose, POC 144 (H) 70 - 100 MG/DL [facility] MAIN LAB Performing Organization Address City/[facility] Phone Number [facility] MAIN LAB [address] [place] [address] * POC GLUCOSE (09/23/2018 8:07 PM DEVELOPMENT SPEC) Glucose, POC 295 (H) 70 - 100 MG/DL [facility] MAIN LAB Performing Organization Address City/[facility] Phone Number [facility] MAIN LAB [address] [place] [address] * POC GLUCOSE (09/23/2018 4:13 PM DEVELOPMENT SPEC) Glucose, POC 237 (H) 70 - 100 MG/DL [facility] MAIN LAB Performing Organization Address [facility] Phone Number [facility] MAIN LAB [address] [place] [address] * SWALLOW MOTION SERIES (09/23/2018 3:39 PM DEVELOPMENT SPEC) Impressions Performed At 1. Laryngeal penetration with [...] Interface, Radiant Results - 09/23/2018 10:52 PM DEVELOPMENT SPEC SWALLOW MOTION SERIES CLINICAL HISTORY: 58-year-old female, [...] RESULTS * POC GLUCOSE (09/23/2018 2:08 PM DEVELOPMENT SPEC) Glucose, POC 308 (H) 70 - 100 MG/DL [facility] MAIN LAB Performing Organization Address City/[facility] Phone Number MAIN LAB [address] [place] [address] * NM GASTRIC EMPTYING TIME (09/23/2018 1:03 PM DEVELOPMENT SPEC) Impressions Performed At Delayed gastric emptying times. [...] Interface, Radiant Results - 09/23/2018 2:36 PM DEVELOPMENT SPEC GASTRIC EMPTYING TIME CLINICAL HISTORY: 58-year-old female. [...] on 09/23/2018 2:29 PM. Performing Organization Address City/State/Zipcode Phone Number K[facility] RAD RESULTS * POC GLUCOSE (09/23/2018 7:45 AM DEVELOPMENT SPEC) Glucose, POC 257 (H) 70 - 100 MG/DL [facility] MAIN LAB Performing Organization Address City/[facility] Phone Number [facility] MAIN LAB [address] [place] [address] * C DIFFICILE BY PCR (09/23/2018 6:30 AM DEVELOPMENT SPEC) Battery Name C DIFFICILE PCR K[facility] MAIN LAB Specimen Description FECES MAIN LAB Special Requests NONE MAIN LAB C. Difficile Toxin B PCR NEGATIVE-wait 7 days to repeat [facility] MAIN LAB test Report Status FINAL [facility] MAIN LAB 09/23/2018 Specimen Feces Performing Organization Address City/[facility] Phone Number [facility] MAIN LAB [address] [place] [address] * POC GLUCOSE (09/23/2018 4:28 AM DEVELOPMENT SPEC) Glucose, POC 258 (H) 70 - 100 MG/DL [facility] MAIN LAB Performing Organization Address City/[facility] Phone Number [facility] MAIN LAB [address] [place] [address] * COMPREHENSIVE METABOLIC PANEL (09/23/2018 3:54 AM DEVELOPMENT SPEC) Sodium 137 137 - 147 MMOL/L [facility] MAIN LAB Potassium 4.1 3.5 - 5.1 MMOL/L [facility] MAIN LAB Chloride 101 98 - 110 MMOL/L [facility] MAIN LAB Glucose 281 (H) 70 - 100 MG/DL [facility] MAIN LAB Blood Urea Nitrogen 5 (L) 7 - 25 MG/DL [facility] MAIN LAB Creatinine 0.80 0.4 - 1.00 MG/DL [facility] MAIN LAB Calcium 8.9 8.5 - 10.6 MG/DL [facility] MAIN LAB Total Protein 5.7 (L) 6.0 - 8.0 G/DL [facility] MAIN LAB Total Bilirubin 0.3 0.3 - 1.2 MG/DL [facility] MAIN LAB Albumin 3.6 3.5 - 5.0 G/DL [facility] MAIN LAB Alk Phosphatase 57 25 - [...] City/State/Zipcode Phone Number [facility] MAIN LAB [address] [place] [address] * CBC AND DIFF (09/23/2018 3:54 AM DEVELOPMENT SPEC) White Blood Cells 10.6 4.5 - 11.0 [...] MAIN LAB Specimen Blood Performing Organization Address City/[facility]/Zipcode Phone Number KU MAIN LAB [address] [place] [address] * POC GLUCOSE (09/23/2018 2:40 AM DEVELOPMENT SPEC) Glucose, POC 241 (H) 70 - 100 MG/DL [facility] MAIN LAB Performing Organization Address City/[facility]/Zipcode Phone Number [facility] MAIN LAB [address] [place] [address] * POC GLUCOSE (09/23/2018 12:17 AM DEVELOPMENT SPEC) Glucose, POC 248 (H) 70 - 100 MG/DL [facility] MAIN LAB Performing Organization Address City/[facility]/Zipcode Phone Number [facility] MAIN LAB [address] [place] [address] * POC GLUCOSE (09/22/2018 10:20 PM DEVELOPMENT SPEC) Glucose, POC 314 (H) 70 - 100 MG/DL [facility] MAIN LAB Performing Organization Address City/[facility] Phone Number MAIN LAB [address] [place] [address] * POC GLUCOSE (09/22/2018 8:28 PM DEVELOPMENT SPEC) Glucose, POC 276 (H) 70 - 100 MG/DL [facility] MAIN LAB Performing Organization Address City/[facility] Phone Number MAIN LAB [address] [place] [address] * POC GLUCOSE (09/22/2018 5:36 PM DEVELOPMENT SPEC) Glucose, POC 76 70 - 100 MG/DL [facility] MAIN LAB Performing Organization Address City/[facility] Phone Number MAIN LAB [address] [place] [address] * POC GLUCOSE (09/22/2018 5:06 PM DEVELOPMENT SPEC) Glucose, POC 94 70 - 100 MG/DL [facility] MAIN LAB Performing Organization Address City/[facility] Phone Number MAIN LAB [address] [place] [address] * POC GLUCOSE (09/22/2018 2:23 PM DEVELOPMENT SPEC) Glucose, POC 367 (H) 70 - 100 MG/DL [facility] MAIN LAB Performing Organization Address City/[facility] Phone Number MAIN LAB [address] [place] [address] * MAGNESIUM (09/22/2018 1:35 PM DEVELOPMENT SPEC) Magnesium 2.0 1.6 - 2.6 mg/dL [facility] MAIN LAB Specimen Blood Performing Organization Address City/[facility] Phone Number MAIN LAB [address] [place] [address] * BASIC METABOLIC PANEL (09/22/2018 1:35 PM DEVELOPMENT SPEC) Sodium 129 (L) 137 - 147 MMOL/L [facility] MAIN LAB Potassium 3.3 (L) 3.5 - 5.1 MMOL/L MAIN LAB Chloride 97 (L) 98 - 110 MMOL/L MAIN LAB CO2 24 21 - 30 MMOL/L MAIN LAB Anion Gap 8 3 - 12 MAIN LAB Glucose 514 (HH) 70 - [...] Address City/State/Zipcode Phone Number MAIN LAB [address] [place] [address] * POC GLUCOSE (09/22/2018 12:26 PM DEVELOPMENT SPEC) Glucose, POC 393 (H) 70 - 100 MG/DL [facility] MAIN LAB Performing Organization Address City/[facility] Phone Number MAIN LAB [address] [place] [address] * POC GLUCOSE (09/22/2018 9:44 AM DEVELOPMENT SPEC) Glucose, POC 316 (H) 70 - 100 MG/DL [facility] MAIN LAB Performing Organization Address City/[facility]/Zipcode Phone Number MAIN LAB [address] [place] [address] * POC GLUCOSE (09/22/2018 7:23 AM DEVELOPMENT SPEC) Glucose, POC 207 (H) 70 - 100 MG/DL [facility] MAIN LAB Performing Organization Address City/[facility]/Zipcode Phone Number MAIN LAB [address] [place] [address] * POC GLUCOSE (09/22/2018 5:36 AM DEVELOPMENT SPEC) Glucose, POC 82 70 - 100 MG/DL MAIN LAB Performing Organization Address City/State/Zipcode Phone Number MAIN LAB [address] [place] [address] * FLOW CYTOMETRY (09/22/2018 4:43 AM DEVELOPMENT SPEC) PATHOLOGY REPORT [facility] inexio LAB [facility] [email or web address] Dave Roberson MD, Director of Flow Cytometry Laboratory Department of Pathology and Laboratory Medicine [address] [place] [address] Surgical Pathology Office:[phone] :[phone] FLOW CYTOMETRY REPORT NAME: CHELSEA LIN SURG PATH #: [id number] MR #: [id number] SPECIMEN CLASS: LC BILLING #: [id number] ALT ID #:LOCATION: DATE OF PROCEDURE: 09/22/2018 AGE:58 SEX: F DATE RECEIVED: 09/23/2018 : 1960TIME RECEIVED:07:16 PHYSICIAN: Jakub Miller MD DATE OF REPORT: 09/24/2018 [facility]: [facility] JUSTIN Sutton MD DATE OF PRINTIN09/24/2018 Material Received: A: Blood Peripheral History: 58-year-old female with lymphadenopathy ############################## ############################## ############ Final Diagnosis: Blood, flow cytometry: CD5 positive B-cell proliferation, 12.8% Interpretation: Lymphocytes comprise 47% of total events.B cells yksjobfx19.8% of total events that are positive for [...] Positive Cells): CD19=33; CD19+CD5+=32; CD20=33; CD23=35; CD23+CD5+=34; [place]=0; Lambda=32; [place]:Lambda ratio=na T Cell Associated Markers (% Positive Cells): CD2=53; CD3=47; CD4=31; CD5=92; CD7=51; CD8=19 CD4:CD8 ratio=1.8 Miscellaneous Markers (% Positive Cells): CD1d=5; CD10=0; CD34=0; CD38=40; XI34=928; CD56=9; FMC7=15; MS469=91 Cell Viability (%): na Number of Cells Analyzed:38301 Total Number of Markers: 19 Summary of Marker Combinations: [place]/Lambda/5/19/38/45/10/20; FMC7/23/200/34/1d/45/04/06; 2/7/5/3/4/45/56/8 Flow Cytometry - Zap70 Panel B Cell Associated Markers (% Positive Cells): CD19(+)CD5(+)Zap70(+)=19; CD19=41; T Cell Associated Markers (% Positive Cells): CD3(+)Zap70(+)=48; CD3=49; CD5=90; Miscellaneous Markers (% Positive Cells): QV95=758 Cell Viability (%): na Number of Cells Analyzed:57444 Total Number of Markers: 1 Summary of Marker Combinations: Zap70/5/3/19/45 This test was developed and its performance characteristics determined by the [facility] Flow Cytometry Laboratory.It has not been cleared or approved by the U.S. Food and Drug Administration (FDA).The FDA has determined that such clearance or approval is not necessary. Performing Organization Address City/[facility] Phone Number [facility] RESULTS * COMPREHENSIVE METABOLIC PANEL (09/22/2018 4:43 AM DEVELOPMENT SPEC) Sodium 140 137 - 147 MMOL/L K[facility] MAIN LAB Potassium 2.6 (LL) 3.5 - 5.1 MMOL/L K[facility] MAIN LAB Comment: Critical Value K: Called To: ANABELLE Brown at: 06:10:03 by: MARSHALL Read back by: ANABELLE Brown Chloride 101 98 - 110 MMOL/L [...] for questions. Specimen Blood Performing Organization Address [facility]/Zipcode Phone Number KU MAIN LAB [address] [place] [address] * CBC AND DIFF (09/22/2018 4:43 AM DEVELOPMENT SPEC) White Blood Cells 9.0 4.5 - 11.0 K/UL MAIN LAB RBC 4.52 4.0 - 5.0 M/UL MAIN LAB Hemoglobin 13.3 12.0 - 15.0 GM/DL MAIN LAB Hematocrit 38.1 36 - 45 % [facility] MAIN LAB MCV 84.4 80 - 100 FL MAIN LAB MCH 29.4 26 - 34 PG MAIN LAB MCHC 34.8 32.0 - 36.0 G/DL MAIN LAB RDW 17.3 (H) 11 - 15 % [facility] MAIN LAB Platelet Count 258 150 - 400 K/UL MAIN LAB MPV 8.8 7 - 11 FL MAIN LAB Neutrophils 34 (L) 41 - 77 % [facility] MAIN LAB Lymphocytes 49 (H) 24 - 44 % [facility] MAIN LAB Monocytes 6 4 - 12 % MAIN LAB Eosinophils 10 (H) 0 - 5 % MAIN LAB Basophils 1 0 - 2 % MAIN LAB Absolute Neutrophil Count 3.00 1.8 - 7.0 K/UL MAIN LAB Absolute Lymph Count 4.40 1.0 - 4.8 K/UL MAIN LAB Absolute Monocyte Count 0.60 0 - 0.80 K/UL MAIN LAB Absolute Eosinophil Count 0.90 (H) 0 - 0.45 K/UL MAIN LAB Absolute Basophil Count 0.10 0 - 0.20 K/UL MAIN LAB Specimen Blood Performing Organization Address City/[facility] Phone Number MAIN LAB [address] [place] [address] * LEUKEMIA-LYMPHOMA PANEL BLOOD (09/22/2018 4:43 AM DEVELOPMENT SPEC) Leuk/Lymph Interpretation SEE PATHOLOGY REPORT [facility] MAIN LAB Specimen/LLM BLOOD MAIN LAB Specimen Blood Performing Organization Address City/State/Zipcode Phone Number MAIN LAB [address] [place] [address] * POC GLUCOSE (09/22/2018 1:46 AM CDT) Glucose, POC 122 (H) 70 - 100 MG/DL [facility] MAIN LAB Performing Organization Address City/[facility] Phone Number MAIN LAB [address] [place] [address] * POC GLUCOSE (09/21/2018 11:48 PM CDT) Glucose, POC 177 (H) 70 - 100 MG/DL [facility] MAIN LAB Performing Organization Address City/[facility]/Zipcode Phone Number [facility] MAIN LAB [address] [place] [address] * POC GLUCOSE (09/21/2018 9:23 PM CDT) Glucose, POC 312 (H) 70 - 100 MG/DL [facility] MAIN LAB Performing Organization Address City/[facility]/Zipcode Phone Number MAIN LAB [address] [place] [address] * POC GLUCOSE (09/21/2018 6:12 PM CDT) Glucose, POC 264 (H) 70 - 100 MG/DL [facility] MAIN LAB Performing Organization Address City/[facility]/Zipcode Phone Number MAIN LAB [address] [place] [address] * POC GLUCOSE (09/21/2018 1:45 PM CDT) Glucose, POC 288 (H) 70 - 100 MG/DL [facility] MAIN LAB Performing Organization Address City/[facility]/Zipcode Phone Number MAIN LAB [address] [place] [address] * POC GLUCOSE (09/21/2018 11:35 AM CDT) Glucose, POC 226 (H) 70 - 100 MG/DL [facility] MAIN LAB Performing Organization Address City/[facility] Phone Number [facility] LAB [address] [place] [address] * POC GLUCOSE (09/21/2018 8:50 AM CDT) Glucose, POC 129 (H) 70 - 100 MG/DL [facility] MAIN LAB Performing Organization Address City/[facility] Phone Number MA[facility] LAB [address] [place] [address] * POC GLUCOSE (09/21/2018 6:21 AM CDT) Glucose, POC 120 (H) 70 - 100 MG/DL [facility] MAIN LAB Performing Organization Address City/[facility]/Zipcode Phone Number MAIN LAB [address] [place] [address] * COMPREHENSIVE METABOLIC PANEL (09/21/2018 3:55 AM CDT) Sodium 137 137 - 147 MMOL/L MAIN LAB Potassium 3.0 (L) 3.5 - [...] Address City/State/Zipcode Phone Number MAIN LAB [address] [place] [address] * CBC AND DIFF (09/21/2018 3:55 AM [...] Address City/State/Zipcode Phone Number MAIN LAB [address] [place] [address] * POC GLUCOSE (09/21/2018 3:54 AM CDT) Glucose, POC 133 (H) 70 - 100 MG/DL [facility] MAIN LAB Performing Organization Address City/[facility]/Zipcode Phone Number MAIN LAB [address] [place] [address] * POC GLUCOSE (09/21/2018 12:57 AM CDT) Glucose, POC 169 (H) 70 - 100 MG/DL [facility] MAIN LAB Performing Organization Address City/[facility]/Zipcode Phone Number MAIN LAB [address] [place] [address] * POC GLUCOSE (09/20/2018 11:18 PM CDT) Glucose, POC 181 (H) 70 - 100 MG/DL [facility] MAIN LAB Performing Organization Address City/[facility]/Zipcode Phone Number MAIN LAB [address] [place] [address] * POC GLUCOSE (09/20/2018 9:00 PM CDT) Glucose, POC 196 (H) 70 - 100 MG/DL [facility] MAIN LAB Performing Organization Address City/[facility]/Zipcode Phone Number MAIN LAB [address] [place] [address] * POC GLUCOSE (09/20/2018 7:32 PM CDT) Glucose, POC 177 (H) 70 - 100 MG/DL [facility] MAIN LAB Performing Organization Address City/[facility]/Zipcode Phone Number [facility] MAIN LAB [address] [place] [address] * SURGICAL PATHOLOGY (09/20/2018 5:32 PM CDT) PATHOLOGY REPORT [facility] inexio LAB [employer] [facility] [email or web address] 9 Department of Pathology and Laboratory Medicine [address] [place] [address] Surgical Pathology Office:[phone] :[phone] SURGICAL PATHOLOGY REPORT NAME: CHELSEA LIN SURG PATH #: [id number] MR #: [id number] SPECIMEN CLASS: SR BILLING #: [id number] ALT ID #:LOCATION: [id number] DATE OF PROCEDURE: 09/20/2018 AGE:58 SEX: F DATE RECEIVED: 09/20/2018 : 1960TIME RECEIVED:17:32 PHYSICIAN: KHOA CHAU M.D. DATE OF REPORT: 09/23/2018 COPY TO:DATE [...] material indicated in this report. +++ +++ lkr/09/23/2018 ############################## ############################## ############ Material Received: A: celiac [...] of Pathology and Laboratory Medicine of the [facility] ([employer]) in compliance with CLIA'88 [...] of Pathology and Laboratory Medicine of the [facility].It has not been cleared or approved by the FDA.The FDA has determined that such clearance or approval is not necessary. Performing Organization Address City/[facility]/Zipcode Phone Number LAB RESULTS * POC GLUCOSE (09/20/2018 5:01 PM CDT) Glucose, POC 125 (H) 70 - 100 MG/DL [facility] MAIN LAB Performing Organization Address [facility] Phone Number MAIN LAB [address] [place] [id number] * MAGNESIUM (09/20/2018 5:00 PM CDT) Magnesium 1.6 1.6 - 2.6 mg/dL [facility] MAIN [facility] Specimen Blood Performing Organization Address [facility] Phone Number MAIN LAB [address] [place] [address] * BASIC METABOLIC PANEL (09/20/2018 5:00 PM CDT) Sodium 137 137 - 147 MMOL/L [facility] Potassium 2.8 (L) 3.5 - 5.1 MMOL/L [facility] Chloride 102 98 - 110 MMOL/L [facility] CO2 27 21 - [...] for questions. Specimen Blood Performing Organization Address [facility] Phone Number [facility] LAB [address] [place] [address] * COLONOSCOPY (09/20/2018 3:17 PM CDT) Provation Report Patient Name: Issa OSWALD OTHER RESULTS [place] Procedure Date: 09/20/2018 3:17 PM CSN: [id number] Date of : 1960 Gender: Female Attending Physician: Khoa Chau MD Procedure: Colonoscop y Indications: Screening for colorectal malignant neoplasm Providers: Khoa Chau MD (Doctor), Nicole Villasenor MD (Fellow), Bianka Lang RN (Nurse), Earlene Grady Financial Market Dealer (Financial Market Dealer) Referring Physician: Martin Reynoso MD, Ivory Gonzalez [...] malignant neoplasm of colon CPT copyright 2016 [employer]. All rights reserved. The codes documented in this report are preliminary and upon printed products assembler review may be revised to meet current compliance requirements. Attending Participation: I was present and participated during the entire procedure, including non-ortega portions. MD Khoa Altamirano MD 09/20/2018 3:41:45 PM The attending physician has electronically signed and finalized this document. Nicole Villasenor MD Number of Addenda: 0 Note Initiated On: 09/20/2018 3:17 PM Performing Organization Address City/State/Zipcode Phone Number [facility] OTHER RESULTS * EGD REPORT (09/20/2018 2:51 PM CDT) Provation Report Patient Name: Issa OSWALD OTHER RESULTS [place] Procedure Date: 09/20/2018 2:51 PM [facility]: [id number] Date of : 1960 Gender: Female Attending Physician: Khoa Chau MD Procedure: Upper GI endoscopy Indications: Nausea with vomiting, Weight loss Providers: Khoa Chau MD (Doctor), Nicole Villasenor MD (Fellow), Bianka Lang RN (Nurse), Earlene Grady, Financial Market Dealer (Financial Market Dealer) Referring Physician: Martni Reynoso MD, Ivory Gonzalez Medications: Propofol per [...] 43 seconds Procedure Code(s): --- Professional --- 17434, Esophagogastroduodenoscopy, flexible, transoral; diagnostic, including collection of specimen(s) by brushing or washing, when performed (separate procedure) Diagnosis Code(s): --- Professional --- R11.2, Nausea with vomiting, unspecified R63.4, Abnormal weight loss CPT copyright 2016 [employer]. All rights reserved. The codes documented in this report are preliminary and upon printed products assembler review may be revised to meet current compliance requirements. Attending Participation: I was present and participated during the entire procedure, including non-ortega portions. MD Khoa Altamirano MD 09/20/2018 3:39:45 PM The attending physician has electronically signed and finalized this document. Nicole Villasenor MD Number of Addenda: 0 Note Initiated On: 09/20/2018 2:51 PM Performing Organization Address City/[facility] Phone Number [facility] OTHER RESULTS * POC GLUCOSE (09/20/2018 2:37 PM CDT) Glucose, POC 137 (H) 70 - 100 MG/DL MAIN LAB Performing Organization Address City/[facility] Phone Number MAIN LAB [address] [place] [address] * POC GLUCOSE (09/20/2018 12:59 PM CDT) Glucose, POC 159 (H) 70 - 100 MG/DL MAIN LAB Performing Organization Address [facility]/Zipcode Phone Number [facility] MAIN [facility] [address] [place] [address] * POC GLUCOSE (09/20/2018 10:20 AM CDT) Glucose, POC 155 (H) 70 - 100 MG/DL [facility]IN [facility] Performing Organization Address [facility] Phone Number [facility] [address] [place] [address] * POC GLUCOSE (09/20/2018 8:17 AM CDT) Glucose, POC 164 (H) 70 - 100 MG/DL [facility]IN [facility] Performing Organization Address [facility] Phone Number [facility] [address] [place] [address] * POC GLUCOSE (09/20/2018 6:13 AM CDT) Glucose, POC 169 (H) 70 - 100 MG/DL [facility] Performing Organization Address [facility] Phone Number [facility]IN [facility] [address] [place] [address] * COMPREHENSIVE METABOLIC PANEL (09/20/2018 3:10 AM [...] for questions. Specimen Blood Performing Organization Address City/[facility]/Zipcode Phone Number [facility] MAIN LAB [address] [place] [address] * CBC AND DIFF (09/20/2018 3:10 AM [...] MAIN LAB Specimen Blood Performing Organization Address City/[facility]/Zipcode Phone Number [facility] MAIN [facility] [address] [place] [address] * POC GLUCOSE (09/20/2018 2:24 AM CDT) Glucose, POC 222 (H) 70 - 100 MG/DL [facility]IN [facility] Performing Organization Address City/[facility]/Zipcode Phone Number [facility] MAIN [facility] [address] [place] [address] * ABDOMEN AP ONLY (09/20/2018 1:45 AM [...] on 09/20/2018 10:00 AM. Performing Organization Address City/State/Zipcode Phone Number [facility] RAD RESULTS * POC GLUCOSE (09/20/2018 12:05 AM CDT) Glucose, POC 199 (H) 70 - 100 MG/DL [facility] MAIN [facility] Performing Organization Address City/State/Zipcode Phone Number MAIN LAB [address] [place] [address] * POC GLUCOSE (09/19/2018 10:00 PM CDT) Glucose, POC 222 (H) 70 - 100 MG/DL [facility]IN [facility] Performing Organization Address City/State/Zipcode Phone Number MAIN LAB [address] [place] [address] * POC GLUCOSE (09/19/2018 8:14 PM CDT) Glucose, POC 240 (H) 70 - 100 MG/DL [facility]IN [facility] Performing Organization Address City/State/Zipcode Phone Number MAIN LAB [address] [place] [address] * POC GLUCOSE (09/19/2018 5:51 PM CDT) Glucose, POC 144 (H) 70 - 100 MG/DL [facility] Performing Organization Address City/State/Zipcode Phone Number MAIN LAB [address] [place] [address] * POC GLUCOSE (09/19/2018 3:51 PM CDT) Glucose, POC 124 (H) 70 - 100 MG/DL [facility] Performing Organization Address City/State/Zipcode Phone Number MAIN LAB [address] [place] [address] * POC GLUCOSE (09/19/2018 1:49 PM CDT) Glucose, POC 131 (H) 70 - 100 MG/DL [facility] Performing Organization Address City/State/Zipcode Phone Number MAIN LAB [address] [place] [address] * POC GLUCOSE (09/19/2018 11:52 AM CDT) Glucose, POC 119 (H) 70 - 100 MG/DL [facility] Performing Organization Address City/State/Zipcode Phone Number MAIN LAB [address] [place] [address] * POC GLUCOSE (09/19/2018 10:17 AM CDT) Glucose, POC 114 (H) 70 - 100 MG/DL [facility] Performing Organization Address City/State/Zipcode Phone Number MAIN LAB [address] [place] [address] * POC GLUCOSE (09/19/2018 8:15 AM CDT) Glucose, POC 124 (H) 70 - 100 MG/DL [facility] Performing Organization Address City/State/Zipcode Phone Number MAIN LAB [address] [place] [address] * POC GLUCOSE (09/19/2018 6:22 AM CDT) Glucose, POC 130 (H) 70 - 100 MG/DL [facility] Performing Organization Address City/State/Zipcode Phone Number MAIN LAB [address] [place] [address] * POC GLUCOSE (09/19/2018 5:23 AM CDT) Glucose, POC 128 (H) 70 - 100 MG/DL [facility] Performing Organization Address City/State/Zipcode Phone Number MAIN LAB [address] [place] [address] * POC GLUCOSE (09/19/2018 5:07 AM CDT) Glucose, POC 123 (H) 70 - 100 MG/DL [facility] Performing Organization Address [facility] Phone Number [facility] [address] [place] [address] * POC GLUCOSE (09/19/2018 4:49 AM CDT) Glucose, POC 140 (H) 70 - 100 MG/DL [facility] Performing Organization Address [facility] Phone Number [facility] [address] [place] [address] * POC GLUCOSE (09/19/2018 4:32 AM CDT) Glucose, POC 168 (H) 70 - 100 MG/DL [facility]IN [facility] Performing Organization Address [facility] Phone Number [facility] MAIN [facility] [address] [place] [address] * COMPREHENSIVE METABOLIC PANEL (09/19/2018 4:06 AM CDT) Sodium 135 (L) 137 - 147 MMOL/L [facility] Potassium 2.7 (LL) 3.5 - 5.1 MMOL/L [facility]IN [facility] Comment: Critical Value K: Called To: BERRY Lo at: 04:52:52 by: RODRIGO Read back by: BERRY Lo Chloride 99 98 - 110 MMOL/L [facility] Glucose 202 (H) 70 - 100 MG/DL [facility] Blood Urea Nitrogen 6 (L) 7 - 25 MG/DL [facility] Creatinine 0.57 0.4 - 1.00 MG/DL [facility] Calcium 7.7 (L) 8.5 - 10.6 MG/DL [facility] Total Protein 5.1 (L) 6.0 [...] for questions. Specimen Blood Performing Organization Address City/[facility]/Zipcode Phone Number MAIN LAB [address] [place] [address] * CBC AND DIFF (09/19/2018 4:06 AM [...] MAIN LAB Specimen Blood Performing Organization Address [facility]/Zipcode Phone Number MAIN LAB [address] [place] [address] * POC GLUCOSE (09/19/2018 4:01 AM CDT) Glucose, POC 188 (H) 70 - 100 MG/DL [facility]IN [facility] Performing Organization Address [facility] Phone Number [facility] [address] [place] [address] * POC GLUCOSE (09/19/2018 3:47 AM CDT) Glucose, POC 236 (H) 70 - 100 MG/DL [facility] Performing Organization Address [facility] Phone Number [facility] [address] [place] [address] * POC GLUCOSE (09/19/2018 3:36 AM CDT) Glucose, POC 40 (LL) 70 - 100 MG/DL [facility]IN [facility] Performing Organization Address [facility] Phone Number MAIN LAB [address] [place] [address] * POC GLUCOSE (09/18/2018 7:53 PM CDT) Glucose, POC 105 (H) 70 - 100 MG/DL [facility]IN [facility] Performing Organization Address [facility] Phone Number MAIN LAB [address] [place] [address] * CT NECK W/CONTRAST (09/18/2018 6:19 PM [...] nodes. Mild bilateral subpectoral and axillary lymphadenopathy. Emblem Fuser Tender left axillary lymph node measuring 2.8 x 1 cm (series 5 image 64). Emblem Fuser Tender right axillary lymph node measures 1.4 x [...] nodes. Mild bilateral subpectoral and axillary lymphadenopathy. Emblem Fuser Tender left axillary lymph node measuring 2.8 x 1 cm (series 5 image 64). Emblem Fuser Tender right axillary lymph node measures 1.4 x [...] on 09/19/2018 8:12 AM. Performing Organization Address City/State/Zipcode Phone Number [...] majority of which maintain a reniform shape. Emblem Fuser Tender left axillary node measures 1.8 x 0.9 [...] majority of which maintain a reniform shape. Emblem Fuser Tender left axillary node measures 1.8 x 0.9 [...] on 09/19/2018 8:02 AM. Performing Organization Address City/[facility] Phone Number RAD RESULTS * HIV-1/2 ANTIGEN/ANTIBODY SCREEN (09/18/2018 4:50 PM CDT) HIV 1 and 2 AG AB Screen NEG NEG-NEG MAIN LAB Specimen Blood Performing Organization Address [facility] Phone Number [facility] [address] [place] [address] * HEPATITIS PANEL, ACUTE (09/18/2018 4:50 PM CDT) Hepatitis A IgM NEG NEG-NEG MAIN LAB Anti HBc IgM NEG NEG-NEG MAIN LAB HBsAg NEG NEG-NEG MAIN LAB Anti HCV NEG NEG-NEG MAIN LAB Specimen Blood Performing Organization Address [facility] Phone Number MAIN LAB [address] [place] [address] * 2-D + DOPPLER ECHOCARDIOGRAM (09/18/2018 2:47 [...] OTHER OUTSIDE LAB S' Cardiology Ultrasound Siemens [id number] OTHER OUTSIDE LAB Machine Left Ventricle Mass [...] jet to calculate RVSP. Performing Organization Address City/State/Zipcode Phone Number OTHER OUTSIDE LAB * POC GLUCOSE (09/18/2018 1:43 PM CDT) Glucose, POC 84 70 - 100 MG/DL [facility] Performing Organization Address City/State/[facility] Phone Number [facility] [address] [place] [address] * POC GLUCOSE (09/18/2018 9:55 AM CDT) Glucose, POC 87 70 - 100 MG/DL [facility]IN [facility] Performing Organization Address [facility] Phone Number [facility]IN [facility] [address] [place] [address] * URINALYSIS, MICROSCOPIC (09/18/2018 6:10 AM CDT) WBCs,UA 0-2 0 - 2 /HPF [facility] RBCs,UA 0-2 0 - 3 /HPF [facility] MucousUA TRACE [facility] Bacteria,UA FEW (A) NEG-NEG [facility] Squamous Epithelial Cells 2-5 0 - 5 [facility] MAIN [facility] Specimen Urine - Urine Performing Organization Address [facility] Phone Number [facility]IN [facility] [address] [place] [address] * URINALYSIS DIPSTICK (09/18/2018 6:10 AM CDT) Color,UA YELLOW [facility] Turbidity,UA CLEAR CLEAR-CLEAR [facility] Specific [place]-Urine 1.014 1.003 - 1.035 [facility] MAIN LAB [...] Specimen Urine - Urine Performing Organization Address [facility] Phone Number [facility] [address] [place] [address] * POC GLUCOSE (09/18/2018 4:41 AM CDT) Glucose, POC 159 (H) 70 - 100 MG/DL [facility] Performing Organization Address [facility] Phone Number [facility] [address] [place] [address] * FREE T4-FREE THYROXINE (09/18/2018 1:43 AM CDT) T4-Free 1.0 0.6 - 1.6 NG/DL [facility] Performing Organization Address [facility] Phone Number MAIN LAB [address] [place] [address] * C REACTIVE PROTEIN (CRP) (09/18/2018 1:43 AM CDT) C-Reactive Protein 0.16 <1.0 MG/DL [facility]IN [facility] Specimen Blood Performing Organization Address [facility] Phone Number [facility]IN [facility] [address] [place] [address] * SED RATE (09/18/2018 1:43 AM CDT) Sed Rate -ESR <1 0 - 30 MM/HR MAIN LAB Specimen Blood Performing Organization Address [facility] Phone Number MAIN LAB [address] [place] [address] * PERIPHERAL SMEAR (09/18/2018 1:43 AM CDT) Peripheral Smear NORMOCYTIC ANEMIA WITH [facility] ANISOCYTOSIS. MILD EOSINOPHILIA MILD MONOCYTOSIS PLATELETS APPEAR NORMAL IN NUMBER AND MORPHOLOGY. Pathologist Signature INTERPRETED BY CHONG ROYAL [facility] BLU SCHAEFFER M.D. By the PATH SIGNATURE ABOVE, I attest that I have personally formulated the final interpretation expressed in this report and that the above diagnosis is based upon my examination of the slides and/or other material indicated in this report. Specimen Blood Performing Organization Address [facility] Phone Number MAIN LAB [address] [place] [address] * TSH WITH FREE T4 REFLEX (09/18/2018 1:43 AM CDT) TSH 6.140 (H) 0.35 - 5.00 MCU/ML MAIN LAB Specimen Blood Performing Organization Address [facility] Phone Number MAIN LAB [address] [place] [address] * LIPID PROFILE (09/18/2018 1:43 AM CDT) [...] 130 mg/dL. Specimen Blood Performing Organization Address [facility] Phone Number MAIN LAB [address] [place] [address] * HEMOGLOBIN A1C (09/18/2018 1:43 AM CDT) Hemoglobin A1C 9.8 (H) 4.0 - 6.0 % MAIN LAB Comment: The ADA recommends that most patients with type 1 and type 2 diabetes maintain an A1c level <7%. Specimen Blood Performing Organization Address [facility] Phone Number MAIN LAB [address] [place] [phone] * PHOSPHORUS (09/18/2018 1:43 AM CDT) Phosphorus 3.7Comment: NOTE NEW REFERENCE 2.0 - 4.5 MG/DL [facility] MAIN [facility] RANGES Specimen Blood Performing Organization Address [facility] Phone Number MAIN LAB [address] [place] [address] * MAGNESIUM (09/18/2018 1:43 AM CDT) Magnesium 1.9 1.6 - 2.6 mg/dL MAIN LAB Specimen Blood Performing Organization Address [facility] Phone Number MAIN LAB [address] [place] [address] * BLOOD GASES, PERIPHERAL VENOUS (09/17/2018 9:39 PM CDT) pH-Venous 7.49 (H) 7.30 - 7.40 MAIN LAB PCO2-Venous 37 36 - 50 MMHG [facility] MAIN [facility] PO2-Venous 47 33 - 48 MMHG [facility] MAIN LAB Base Excess-Venous 4.7 MMOL/L MAIN LAB O2 Sat-Venous 82.6 (H) 55 - 71 % MAIN LAB Veipvsrldzb-YDN-Nxw 28.3 MMOL/L MAIN LAB Specimen Blood, venous - Blood Performing Organization Address [facility] Phone Number MAIN LAB [address] [place] [address] * BETA HYDROXYBUTYRATE (KETONES) (09/17/2018 9:39 PM CDT) Beta Hydroxybutyrate 2.7 (H) <0.3 MMOL/L [facility] MAIN [facility] Comment: Beta hydroxybutyrate (BOHB) is the most abundant ketone (78%), followed by acetoacetate (20%) and acetone (2%).Measurement BOHB is recommended to assess ketones in DKA. Expected BOHB Results for DKA: Initial presentation high/increasing During treatment decreasing Resolved decreasing/normal Specimen Blood Performing Organization Address City/[facility] Phone Number MAIN LAB [address] [place] [address] * LIPASE (09/17/2018 9:39 PM CDT) Lipase 7 (L) 11 - 82 U/L [facility] MAIN [facility] Specimen Blood Performing Organization Address [facility] Phone Number MAIN LAB [address] [place] [address] * COMPREHENSIVE METABOLIC PANEL (09/17/2018 9:39 PM [...] for questions. Specimen Blood Performing Organization Address City/[facility]/Zipcode Phone Number [facility] MAIN [facility] [address] [place] [address] * CBC AND DIFF (09/17/2018 9:39 PM [...] MAIN LAB Specimen Blood Performing Organization Address City/[facility]/Zipcode Phone Number [facility] MAIN [facility] [address] [place] [address] * URINALYSIS, MICROSCOPIC (09/17/2018 8:30 PM CDT) WBCs,UA 2-10 0 - 2 /HPF [facility] MAIN [facility] RBCs,UA 0-2 0 - 3 /HPF [facility] MAIN [facility] MucousUA TRACE [facility] MA[facility] Bacteria,UA MODERATE (A) NEG-NEG [facility] Squamous Epithelial Cells 5-10 0 - 5 MAIN LAB Specimen Urine - Urine Performing Organization Address [facility] Phone Number MAIN LAB [address] [phone] * URINALYSIS DIPSTICK (09/17/2018 8:30 PM CDT) Color,UA YELLOW [facility] MAIN [facility] Turbidity,UA 1+ (A) CLEAR-CLEAR [facility] MAIN [facility] Specific [place]-Urine 1.021 1.003 - 1.035 [facility] MAIN LAB [...] [facility] MAIN LAB Leukocytes,UA TRACE (A) NEG-NEG MAIN LAB Urine Ascorbic Acid, UA NEG NEG-NEG MAIN LAB Specimen Urine - Urine Performing Organization Address [facility] Phone Number MAIN LAB [address] [phone] * ECG-SCAN (09/17/2018 8:15 PM CDT) Narrative Performed At Ordered by an unspecified provider. * POC GLUCOSE (09/17/2018 6:49 PM CDT) Glucose, POC 218 (H) 70 - 100 MG/DL MAIN LAB Performing Organization Address [facility] Phone Number [facility] [address] [phone] in this encounter Visit Diagnoses Diagnosis Stomach ache Dyspepsia and other specified disorders of function of stomach in this encounter Admitting Diagnoses Diagnosis Abdominal pain Abdominal pain, unspecified site in this encounter Administered Medications Action Date Dose Rate Site Medication Order MAR Action 09/27/2018 11:18 AM DEVELOPMENT SPEC 325 mg acetaminophen (TYLENOL) tablet 325 mg Given 325 mg, Oral, EVERY 6 HOURS PRN, Starting Sun09/20/18 at 1955, Until Sun09/27/18 at 1633, Pain non-opioid: may be used alone or in combination with opioid analgesia, TOTAL ACETAMINOPHEN DOSE NOT TO EXCEED 4GM DAILY, 325 mg Given 09/26/2018 9:22 PM DEVELOPMENT SPEC 325 mg Given 09/26/2018 2:51 PM DEVELOPMENT SPEC 09/27/2018 11:48 AM DEVELOPMENT SPEC 30 mL acetaminophen/lidocaine/antacid DS(#) Given (GI COCKTAIL) 1:1:3 suspension 30 mL 30 mL, Oral, FOUR TIMES DAILY PRN, Starting 09/21/18 at 1154, Until Sun09/27/18 at 1633, Indigestion/Heartburn, 30mL (1:1:3)=192mg/6mL acetamin-6mL 2% vis lidocaine-18mL Antacid DS, 30 mL Given 09/27/2018 3:58 AM DEVELOPMENT SPEC 30 mL Given 09/26/2018 8:36 PM DEVELOPMENT SPEC 09/27/2018 1:56 PM DEVELOPMENT SPEC 0.5 mg ALPRAZolam (XANAX) tablet 0.5 mg Given 0.5 mg, Oral, TWICE DAILY PRN, Starting Sun09/18/18 at 1218, Until Sun09/27/18 at 1633, Anxiety PO 0.5 mg Given 09/27/2018 8:18 AM DEVELOPMENT SPEC 0.5 mg Given 09/26/2018 2:51 PM DEVELOPMENT SPEC 09/27/2018 8:11 AM DEVELOPMENT SPEC 400 mg carBAMazepine (TEGRETOL) tablet 400 mg Given 400 mg, Oral, DAILY, First dose on Sun09/18/18 at 0900, Until Discontinued 400 mg Given 09/26/2018 8:15 AM DEVELOPMENT SPEC 400 mg Given 09/25/2018 8:34 AM DEVELOPMENT SPEC 09/27/2018 8:12 AM DEVELOPMENT SPEC [address] (CYMBALTA) capsule 60 mg Given 60 mg, Oral, TWICE DAILY, First dose on Sun09/18/18 at 2100, Until Discontinued 60 mg Given 09/26/2018 8:26 PM DEVELOPMENT SPEC 60 mg Given 09/26/2018 8:15 AM DEVELOPMENT SPEC electrolyte GUT PEG (NULYTELY, COLYTE, GAVILYTE-N) oral solution 2 L 2 L, Oral, 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 Add one of the four attached flavor packets during mixing., ferrous sulfate (FEOSOL, FEROSUL) tablet 325 mg 325 mg, Oral, DAILY, First dose on Sun09/28/18 at 0800, Until Discontinued, Each 325mg ferrous sulfate delivers 65mg elemental iron., 09/27/2018 8:11 AM DEVELOPMENT SPEC 0.3 mg fludrocortisone (FLORINEF) tablet 0.3 mg Given 0.3 mg, Oral, DAILY, First dose on Sun09/18/18 at 0900, Until Discontinued 0.3 mg Given 09/26/2018 8:15 AM DEVELOPMENT SPEC 0.3 mg Given 09/25/2018 8:34 AM DEVELOPMENT SPEC 09/27/2018 12:00 PM DEVELOPMENT SPEC 1 tablet HYDROcodone/acetaminophen (NORCO) 5/325 Given mg tablet 1 tablet 1 tablet, Oral, EVERY 6 HOURS PRN, Starting Sun09/27/18 at 1154, Until Sun09/27/18 at 1633, Pain PO, TOTAL ACETAMINOPHEN DOSE NOT TO EXCEED 4GM DAILY NOTE: This is a HIGH ALERT Medication., 09/27/2018 11:00 AM DEVELOPMENT SPEC 3 Units Arm, Right insulin aspart U-100 (NOVOLOG FLEXPEN) Given injection PEN 0-7 Units 0-7 Units, Subcutaneous, BEFORE MEALS AND AT BEDTIME, First dose on Sun09/18/18 at 1100, Until Discontinued, -POC glucose 140-180mg/dL at administer 1 unit insulin, at 21, 03* administer 0 units. -POC glucose 181-220mg/dL at administer 2 units insulin, at 21, 03* administer 1 unit. -POC glucose 221-260mg/dL at administer 3 units insulin, at 21, 03* administer 2 units. -POC glucose 261-300mg/dL at administer 4 units insulin, at 21, 03* administer 3 units. -POC glucose 301-350mg/dL at administer 5 units insulin, at 21, 03* administer 4 units. -POC glucose 351-400mg/dL at administer 6 units insulin, at 21, 03* administer 5 units. -POC glucose >400mg/dL at , , administer 7 units insulin, at 21, 03* [...] Units Arm, Right Given 09/26/2018 7:00 PM DEVELOPMENT SPEC 1 Units Arm, Right Given 09/26/2018 11:17 AM DEVELOPMENT SPEC 09/27/2018 11:50 AM DEVELOPMENT SPEC 8 Units Arm, Right insulin aspart U-100 (NOVOLOG FLEXPEN) Given injection PEN 8 Units 8 Units, Subcutaneous, THREE TIMES DAILY AFTER MEALS, First dose on Varsha 09/26/18 at 1900, Until Discontinued, - Post Meal [...] Units Arm, Right Given 09/26/2018 7:00 PM DEVELOPMENT SPEC 09/26/2018 8:46 PM DEVELOPMENT SPEC 15 Units Arm, Left insulin glargine (LANTUS SOLOSTAR, Given BASAGLAR) injection PEN 15 Units 15 Units, Subcutaneous, AT BEDTIME DAILY, First dose on Varsha 09/26/18 at 2100, Until Discontinued, Continue if NPO. DO NOT mix with other insulins -- Do not mix with other insulins -- NOTE: This is a HIGH ALERT Medication., Dispense pens manually with initial order and then upon request. DO NOT uncheck "Do not dispense", 09/27/2018 1:53 AM DEVELOPMENT SPEC 100 mL/hr lactated ringers infusion Given - New 1,000 mL, Intravenous, at 100 mL/hr, Bag CONTINUOUS, Starting Varsha 09/26/18 at 1100, Until Sun09/27/18 at 1633 Given - New Bag 09/26/2018 4:50 PM DEVELOPMENT SPEC 100 mL/hr Given - New Bag 09/26/2018 12:39 PM DEVELOPMENT SPEC 09/27/2018 6:33 AM DEVELOPMENT SPEC 175 mcg levothyroxine (SYNTHROID) tablet 175 mcg Given 175 mcg, Oral, DAILY 30MIN BEFORE BREAKFAST, First dose on Sun09/18/18 at 0630, Until Discontinued, Give 1 hour before a meal. If patient is receiving tube feedings, hold tube feed 1hr before and 1hr after dose., 175 mcg Given 09/26/2018 6:40 AM DEVELOPMENT SPEC 175 mcg Given 09/25/2018 5:59 AM DEVELOPMENT SPEC 09/27/2018 8:11 AM DEVELOPMENT SPEC 4 mg loperamide (IMODIUM A-D) capsule 4 mg Given 4 mg, Oral, NEEDED, Starting Sun09/25/18 at 1058, Until Sun09/27/18 at 1633, Diarrhea, GIVE WITH EACH LOOSE STOOL; NOT TO EXCEED 16MG/24HRS, 4 mg Given 09/26/2018 6:47 AM DEVELOPMENT SPEC 4 mg Given 09/25/2018 11:47 AM DEVELOPMENT SPEC 09/26/2018 8:44 PM DEVELOPMENT SPEC 4 mg ondansetron (ZOFRAN) injection 4 mg Given 4 mg, Intravenous, EVERY 6 HOURS PRN, Starting Sun09/18/18 at 0109, Until Sun09/27/18 at 1633, Nausea/Vomiting Injectable 4 mg Given 09/18/2018 1:39 AM CDT 09/27/2018 6:33 AM DEVELOPMENT SPEC 1 g sucralfate (CARAFATE) oral suspension 1 Given g/10ml Patient Own Med 1 g, Oral, BEFORE MEALS AND AT BEDTIME, First dose on 09/22/18 at 1700, Until Discontinued 1 g Given 09/26/2018 8:28 PM DEVELOPMENT SPEC 1 g Given 09/26/2018 6:26 PM DEVELOPMENT SPEC 09/26/2018 8:25 PM DEVELOPMENT SPEC 5 mg zolpidem (AMBIEN) tablet 5 mg Given 5 mg, Oral, AT BEDTIME PRN, Starting Sun09/18/18 at 1256, Until Sun09/27/18 at 1633, Insomnia 5 mg Given 09/25/2018 9:33 PM DEVELOPMENT SPEC 5 mg Given 09/24/2018 8:38 PM DEVELOPMENT SPEC in this encounter
[2018-12-27] MEDS ORDERED: KETAMINE HCL 100 MG/ML 5 ML VIAL IM ONE (20:30)
--- NOTE | 2018-12-27 20:33 | ED GU-Female ---
General Chief Complaint: -Female Stated Complaint: GROIN PAIN Nursing Triage Note: Pt to triage in wheelchair. Pt c/o urethra being swollen for 2-3 days. Pt denies pain with urination. Pt reports being unable to wear underwear because of the pain. Pt reports soaking in a warm tub, however that has not provided relief. Pt reports having recent diagnosis of leukemia. 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 Nursing Sepsis Screen: No Definite Risk Source: patient Exam Limitations: no limitations History of Present Illness Date Seen by Provider: Dec 27, 2018 Time Seen by Provider: 20:00 Initial Comments Here with report of pain in the vaginal perivaginal area. This is been going on for 2-3 days. Does have history of diabetes. States her blood sugars have been okay recently. Does have history of high narcotic use but is currently off narcotics for the last month. Does have history of gastroparesis that is being evaluated at . Denies recent sexual activity. Does have a little vaginal discharge. Denies fevers or vomiting. Timing/Duration: getting worse Severity/Quality: moderate, aching, burning Location: vaginal, urethral (physical) Radiation: none Activities at Onset: none Sexual [employer] History: not active Modifying Factors: Worsens With Movement, Worsens With Palpation Associated Symptoms: No abdominal pain, No dysuria, No fever/chills, No nausea/ vomiting, No urinary frequency Allergies and Home Medications Allergies Coded Allergies: Sulfa (Sulfonamide Antibiotics) (Verified Allergy, Unknown, 11/26/15) Home Medications Albuterol Sulfate 18 Gm Hfa.aer.ad, 2 PUFF IH Q6H PRN for SHORTNESS OF BREATH, ( Reported) Alprazolam 1 Mg Tablet, 1 MG PO DAILY PRN for ANXIETY, (Reported) Atorvastatin Calcium 40 Mg Tablet, 40 MG PO HS, (Reported) Carbamazepine 200 Mg Tab.er.12h, 200 MG PO BID, (Reported) Cefuroxime Axetil 250 Mg Tablet, 250 MG PO BID Prescribed by: BRENDA PARDO on 08/05/18 1536 Cetirizine HCl 10 Mg Tablet, 10 MG PO DAILY, (Reported) Cholecalciferol (Vitamin D3) 5,000 Unit Capsule, 5,000 UNIT PO DAILY, (Reported) Clobetasol Propionate 15 Gm Cream..g., TOP UD PRN for SKIN, (Reported) Dextroamphetamine/Amphetamine 20 Mg Tablet, 20 MG PO BID, (Reported) Diclofenac Sodium 100 Gm Gel..gram., TOP UD PRN for JOINT PAIN, (Reported) Duloxetine HCl 60 Mg Capsule.dr, 60 MG PO BID, (Reported) Estrogens Conjugated 30 Gm Cr, UD, (Reported) Estrogens, Conjugated 0.625 Mg Tablet, 0.625 MG PO DAILY, (Reported) Fesoterodine Fumarate 4 Mg Tab.sr.24h, 4 MG PO DAILY, (Reported) Fludrocortisone Acetate 0.1 Mg Tab, 0.1 MG PO BID, (Reported) Fluticasone Propionate 16 Gm Offerle.susp, 1 SPRAY NS BID PRN for ALLERGIES, ( Reported) Glucagon,Human Recombinant 1 Mg/Kit Soln, UD PRN for BLOOD SUGAR, (Reported) Hydrocodone/Acetaminophen 1 Each Tablet, 1 TAB PO QID PRN for PAIN-MODERATE, ( Reported) Hydroxychloroquine Sulfate 200 Mg Tablet, 200 MG PO DAILY, (Reported) Insulin Degludec 100 Unit/1 Ml Insuln.pen, 17 UNITS SQ HS, (Reported) Insulin Lispro 100 Unit/1 Ml Insuln.pen, 4 UNITS SQ 0800,1200, (Reported) Insulin Lispro 100 Unit/1 Ml Insuln.pen, 10 UNIT SQ 1800, (Reported) Levothyroxine Sodium 175 Mcg Tablet, 175 MCG PO DAILY, (Reported) Lidocaine/Prilocaine 30 Gm Cream..g., TOP UD PRN for SKIN, (Reported) Lorazepam 1 Mg Tablet, 1 MG PO BID, (Reported) Montelukast Sodium 10 Mg Tablet, 10 MG PO DAILY, (Reported) Multivitamin with Minerals 1 Each Tablet, 1 TAB PO DAILY, (Reported) Nitrofurantoin Monohyd/M-Cryst 100 Mg Capsule, 1 TAB PO BID Prescribed by: CARA LEWIS on 05/17/182108 Nortriptyline HCl 25 Mg Capsule, 25 MG PO HS, (Reported) Nystatin 60 Gm Powder, TOP UD PRN for RASH, (Reported) Ondansetron 4 Mg Tab.rapdis, 8 MG PO Q6H PRN for NAUSEA/VOMITING Prescribed by: CARA LEWIS on 05/17/182108 Ondansetron 4 Mg Tab.rapdis, 4 MG PO Q6H PRN for NAUSEA/VOMITING Prescribed by: THOMAS HERNANDEZ on 08/20/18 0412 Pantoprazole Sodium 40 Mg Tablet.dr, 40 MG PO DAILY, (Reported) Pentosan Polysulfate Sodium 100 Mg Capsule, 100 MG PO TID, (Reported) UNKNOWN LAST FILL DATE Potassium Chloride 10 Meq Capsule.er, 10 MEQ PO DAILY, (Reported) Pregabalin 150 Mg Capsule, 150 MG PO BID, (Reported) Rizatriptan Benzoate 10 Mg Tablet, 10 MG PO UD PRN for MIGRAINE, (Reported) Sucralfate 1 Gm/10 Ml Oral.susp, 1 GM PO AC, (Reported) Tizanidine HCl 4 Mg Tablet, 4 MG PO TID PRN for MUSCLE SPASMS, (Reported) Zolpidem Tartrate 10 Mg Tablet, 10 MG PO HS, (Reported) [Biotex] , 200 UNITS PO UD PRN for MIGRAINE, (Reported) Patient Home Medication List Home Medication List Reviewed: Yes Review of Systems Review of Systems Constitutional: see HPI; No chills, No fever Respiratory: no symptoms reported Cardiovascular: no symptoms reported Genitourinary: see HPI, discharge; denies dysuria, denies hematuria; pain : No Musculoskeletal: no symptoms reported Skin: change in color; No lesions; rash Past Ewgcmbs-Xmzerv-Xdyrwd Hx Past Med/Social Hx: Reviewed Nursing Past Med/Soc Hx Patient Social History Alcohol Use: Denies Use Recreational Drug Use: No Smoking Status: Never a Smoker 2nd Hand Smoke Exposure: No Recent Foreign Travel: No Contact w/Someone Who Travel: No Recent Infectious Disease Expo: No Recent Hopitalizations: No Immunizations Up To Date Tetanus Booster (TDap): More than 5yrs PED Vaccines UTD: Yes Date of Pneumonia Vaccine: Aug 19, 2014 Date of Influenza Vaccine: Aug 22, 2017 Seasonal Allergies Seasonal Allergies: No Past Medical History Surgeries: Yes (PORT,CARPAL TUNNEL, R.HIP, BILAT SHOULDER SURGERY, port placement) Eye Surgery, Gallbladder, Hysterectomy, Orthopedic, Vascular Surgery Respiratory: Yes Asthma Currently Using CPAP: No Currently Using BIPAP: No Cardiac: Yes High Cholesterol, Hypertension Neurological: Yes Concussion, Headaches /Migraines, Neuropathy, Seizure Disorder, Traumatic Brain Injury Reproductive Disorders: No Female Reproductive Disorders: Denies [employer] History: Hysterectomy Sexually Transmitted Disease: No HIV/AIDS: No Genitourinary: Yes (UTI) UTI-Chronic Gastrointestinal: Yes (GASTROPARESIS WITH CHRONIC N/V. CHRONIC ABDOMINAL PAIN. ) Ulcer Musculoskeletal: Yes Arthritis Endocrine: Yes (ADRENAL DISEASE) Diabetes, Insulin dep, Hypothyroidsim HEENT: Yes Chronic Ear Infection Loss of Vision: Denies Hearing Impairment: Denies Cancer: No Psychosocial: Yes Anxiety, Depression Integumentary: No Blood Disorders: No Adverse Reaction/Blood Tranf: No Family Medical History Reviewed Nursing Family Hx Alcoholism 09 BROTHER Cancer 03 MOTHER (PANCREATIC CA) Myocardial infarction 03 MOTHER Cancer Physical Exam Vital Signs Vital Signs - First Documented 12/27/18 17:49 Temp 98.7 Pulse 89 Resp 15 B/P (MAP) 120/82 (95) Pulse Ox 99 O2 Delivery Room Air Capillary Refill : Less Than 3 Seconds Height, Weight, BMI Height: 5'5.00" Weight: 138lbs. 3.2oz. 62.192066dl; 24.2 BMI Method:Stated General Appearance: WD/WN, mild distress Cardiovascular: regular rate, rhythm, no murmur Respiratory: lungs clear, normal breath sounds Pelvic: other (mild dryness of the skin around the vaginal area. Question lymph nodes in the mons area bilateral. Tender to the labia with clear lynne discharge noted. Mild swelling and very tender to touch.) Neurologic/Psychiatric: alert, depressed affect, other (repetitive lipsmacking and tongue movement typical for her.) Skin: warm/dry, rash (as listed above) Progress/Results/Core Measures Suspected Sepsis Recent Fever Within 48 Hours: No Infection Criteria Present: None New/Unexplained Altered Menta: No Sepsis Screen: No Definite Risk SIRS Temperature:98.7 Pulse: 89 Respiratory Rate: 15 Blood Pressure 120 /82 Mean: 95 Results/Orders Lab Results Laboratory Tests Test 12/27/18 19:19 12/27/18 20:20 Range/Units Urine Color YELLOW Urine Clarity SLIGHTLY CLOUDY Urine pH 6.5 5-9 Urine Specific Clarence 1.010 L 1.016-1.022 Urine Protein 1+ H NEGATIVE Urine Glucose (UA) NEGATIVE NEGATIVE Urine Ketones 3+ H NEGATIVE Urine Nitrite NEGATIVE NEGATIVE Urine Bilirubin NEGATIVE NEGATIVE Urine Urobilinogen NORMAL NORMAL MG/DL Urine Leukocyte Esterase 2+ H NEGATIVE Urine RBC (Auto) NEGATIVE NEGATIVE Urine RBC NONE /HPF Urine WBC 5-10 H /HPF Urine Squamous Epithelial Cells 25-50 H /HPF Urine Crystals NONE /LPF Urine Bacteria FEW H /HPF Urine Casts NONE /LPF Urine Mucus SMALL H /LPF Urine Culture Indicated YES My Orders Orders - THOMAS HERNANDEZ MD Urinalysis (12/27/18 20:01) Wet Prep (12/27/18 20:24) Neisseria Gonorrhea Swab (12/27/18 20:24) Chlamydia Trachomatis Swab (12/27/18 20:24) Ketamine Injection (Ketalar Injection) (12/27/18 20:30) Urine Culture (12/27/18 19:19) Ketorolac Injection (Toradol Injection) (12/27/18 21:53) Ceftriaxone For Im Use (Rocephin For Im (12/27/18 22:00) Lidocaine 1% Inj 20 Ml (Xylocaine 1% Inj (12/27/18 22:00) Ondansetron Oral Dissolve Tab (Zofran (12/27/18 22:00) Alprazolam Tablet (Xanax Tablet) (12/27/18 22:00) Medications Given in ED Current Medications Medications Dose Ordered Sig/Reva Route Start Time Stop Time Status Last Admin Dose Admin Alprazolam 1 mg ONCE ONCE PO 12/27/18 22:00 12/27/18 22:02 DC 12/27/18 22:23 1 MG Ceftriaxone Sodium 1,000 mg ONCE ONCE IM 12/27/18 22:00 12/27/18 22:01 DC 12/27/18 22:30 1,000 MG Ketamine HCl 20 mg ONCE ONCE IM 12/27/18 20:30 12/27/18 20:31 DC 12/27/18 21:03 20 MG Lidocaine HCl 2.1 ml ONCE ONCE INJ 12/27/18 22:00 12/27/18 22:01 DC 12/27/18 22:30 2.1 ML Vital Signs/I&O 12/27/18 17:49 Temp 98.7 Pulse 89 Resp 15 B/P (MAP) 120/82 (95) Pulse Ox 99 O2 Delivery Room Air Capillary Refill : Less Than 3 Seconds Blood Pressure Mean: 95 Progress Note : Progress Note Seen and evaluated. Blood sugar 107. UA ordered. Wet prep swab and GC chlamydia swab ordered. Ketamine 20 mg IM for pain. Monitor patient. 2200: Patient had one episode of vomiting and she is getting quite anxious. She normally takes Xanax daily and she has not had that today. Zofran 4 mg by mouth and Xanax 1 mg by mouth ordered. We will give Rocephin 1 g IM and Toradol 30 mg IM for pain and for the urinary tract infection. This will treat urinary tract infection without concerns of vomiting. I will prescribe Keflex and Zofran for home. 2315: Doing better. She'll like to go home. Discharge home with return precautions. Patient verbalize understanding instructions and agreement with plan. Departure Impression Primary Impression: Urinary tract infection Qualified Codes: N30.00 - Acute cystitis without hematuria Additional Impression: Acute vaginitis Disposition: HOME, SELF-CARE Condition: Stable Departure-Patient Inst. Decision time for Depature: 22:04 Referrals: RUBIO MEZA DO (PCP/Family) Primary Care Physician Patient Instructions: Urinary Tract Infection, Adult (DC), Vaginitis Add. Discharge Instructions: All discharge instructions reviewed with patient and/or family. Voiced understanding. Take medications as directed. You may take Tylenol/acetaminophen 1000 mg every 8 hours as needed for pain. You may take ibuprofen 600 mg every 8 hours as needed for pain. Follow-up with your Dr. in 2-3 days for recheck. Return for worse pain, fever, vomiting, weakness, rhythm problems or other concerns as needed. Continue home medications as previously prescribed. Scripts Metronidazole (Metronidazole) 500 Mg Tablet 500 MG PO BID, #14 TAB 0 Refills Prov: THOMAS HERNANDEZ MD 12/27/18 Ondansetron (Ondansetron Odt) 4 Mg Tab.rapdis 4 MG PO Q6H PRN for NAUSEA/VOMITING, #8 TAB 0 Refills Prov: THOMAS HERNANDEZ MD 12/27/18 Cephalexin (Cephalexin) 500 Mg Tablet 500 MG PO BID, #14 TAB 0 Refills Prov: THOMAS HERNANDEZ MD 12/27/18 Copy Copies To 1: RUBIO MEZA TIMOTHY D MD Dec 27, 2018 20:33
[2018-12-27 20:40] LABS: BILIRUBIN,URINE NEGATIVE (NEGATIVE); CLARITY,URINE SLIGHTLY CLOUDY; COLOR,URINE YELLOW; GLUCOSE, URINE (UA) NEGATIVE (NEGATIVE); KETONES,URINE 3+ (NEGATIVE); LEUKOCYTE ESTERASE ,URINE 2+ (NEGATIVE); NITRITE,URINE NEGATIVE (NEGATIVE); PH,URINE 6.5 (5-9); PROTEIN,URINE 1+ (NEGATIVE); UROBILINOGEN,URINE NORMAL (NORMAL)
[2018-12-27 20:51] LABS: BACTERIA,URINE FEW /HPF; SQUAMOUS EPITHELIAL CELL,UR 25-50 /HPF
[2018-12-27] MEDS ORDERED: KETOROLAC 30 MG/ML VIAL IM STA (21:53)
[2018-12-27] MEDS ORDERED: ONDANSETRON 4 MG (ZOFRAN) ORAL DISSOLVE TAB SL STA (22:00)
[2018-12-27] MEDS ORDERED: cefTRIAXone 1,000 MG/2.86 ml vial (IM ONLY) IM ONE (22:00)
[2018-12-27] MEDS ORDERED: LIDOCAINE 1% INJ 20 ML 20 ML VIAL INJ ONE (22:00)
[2018-12-27] MEDS ORDERED: ALPRAZolam 0.25 MG (XANAX) TAB PO ONE (22:00)
[2018-12-27] MEDS ORDERED: CEPH500T PO (23:18)
[2018-12-27] MEDS ORDERED: ONDA4TAB11 PO (23:18)
[2018-12-27] MEDS ORDERED: METR-145 PO (23:19)
[2018-12-27 23:31] VITALS: BP 157/81
== END 2018-12-27 23:32 | disposition home or self-care (01) ==
LOC: EDUNIT# 17:42 → ER 17:44
DX: N39.0 Urinary tract infection, site not specified (principal); N76.0 Acute vaginitis; E11.9 Type 2 diabetes mellitus without complications; J45.909 Unspecified asthma, uncomplicated; E78.00 Pure hypercholesterolemia, unspecified; I10 Essential (primary) hypertension; G43.909 Migraine, unspecified, not intractable, without status migrainosus; G40.909 Epilepsy, unspecified, not intractable, without status epilepticus; E03.9 Hypothyroidism, unspecified; F41.9 Anxiety disorder, unspecified; F32.9 Major depressive disorder, single episode, unspecified; Z87.820 Personal history of traumatic brain injury; Z87.440 Personal history of urinary (tract) infections; Z87.19 Personal history of other diseases of the digestive system; Z80.0 Family history of malignant neoplasm of digestive organs; Z82.49 Family history of ischemic heart disease and other diseases of the circulatory system; Z88.2 Allergy status to sulfonamides; Z79.51 Long term (current) use of inhaled steroids; Z79.4 Long term (current) use of insulin; Z90.710 Acquired absence of both cervix and uterus; Z98.890 Other specified postprocedural states
CPT/HCPCS: 36415; 81000; 87088; 87210; 87491; 87591; 99284

== ENCOUNTER → 2019-02-28 | Outpatient (CLI) | payer MEDICARE, MEDICAID ==
[~2019-02-28] VITALS: Ht 165.1 cm; Wt 56.7 kg
[~2019-02-28] MED LIST changes: +CATHETER FLUSH 10 ML SYR IV PRN; +CEPH500T PO; -CETI-214 PO; +CETI-458 PO; +METR-145 PO; +REGADENOSON 0.4 MG/5 ML SYR (LEXISCAN) IV ONE
[2019-02-28 08:07] VITALS: BP 142/76
[2019-02-28 08:08] VITALS: BP 126/69
--- NOTE | 2019-02-28 12:51 | STRESS TEST ---
DATE OF SERVICE: 02/28/2019 NUCLEAR MYOVIEW REPORT REFERRING PHYSICIAN: Dr. Patton. In summary, the patient was injected with 10.6 mCi of technetium-99 Myoview and the resting images were obtained with peak stress level. The patient was injected with 30.1 mCi of technetium-99 Myoview. The test was supervised by Dr. Patton. The resting and stress images were reviewed and compared in the short axis, horizontal long axis and vertical long axis views. Review of the images showed good radiotracer uptake with no significant ischemia or infarction. SSS is 1, SDS 1 and TID value 0.97. On the gated images, the left ventricle appeared to be normal size with normal contractility. Calculated ejection fraction is 79%. CONCLUSION: 1. No ischemia or infarction on SPECT images. 2. Normal left ventricular size with normal contractility. 3. Calculated ejection fraction is 79%. Job ID: [id number] DocumentID: [id number] Dictated Date: 02/28/2019 10:31:05 Learning And Development Consultant Date: 02/28/2019 12:50:03 Dictated By: VALENTINA PLAZA MD
== END ==
LOC: CARD 06:47
PROVIDERS: ATTEND Internal Medicine
DX: R55 Syncope and collapse (principal)
CPT/HCPCS: 78452; 93017

== ENCOUNTER 2019-07-28 16:03 | Outpatient (CLI) | payer MEDICARE, MEDICAID ==
[~2019-07-28] VITALS: Ht 162.6 cm; Wt 50.0 kg
[~2019-07-28 16:03] MED LIST changes: -CATHETER FLUSH 10 ML SYR IV PRN; +DULO60CA59 PO; -REGADENOSON 0.4 MG/5 ML SYR (LEXISCAN) IV ONE; -TIZA4TAB3 PO; +TIZA4TAB4 PO
[2019-07-28 16:10] VITALS: BP 120/89
[2019-07-28] MEDS ORDERED: LACTATED RINGERS 1,000 ML IV SCH ×2 (16:15→17:15)
[2019-07-28] MEDS ORDERED: LACTATED RINGERS 1,000 ML IV ONE (16:16)
[2019-07-28] MEDS ORDERED: ONDANSETRON 4 MG/2 ML (SDV) Z0FRAN ONE (16:16)
[2019-07-28] MEDS ORDERED: FAMOTIDINE 20MG/2ML IV (PEPCID) ONE (16:16)
[2019-07-28] MEDS ORDERED: ONDANSETRON 4 MG/2 ML (SDV) Z0FRAN IV ONE (16:45)
[2019-07-28] MEDS ORDERED: FAMOTIDINE 20MG/2ML IV (PEPCID) IV ONE (16:45)
[2019-07-28] MEDS ORDERED: fentaNYL INJECTION 100 MCG/2 ML AMP ONE (16:51)
[2019-07-28] MEDS ORDERED: fentaNYL INJECTION 100 MCG/2 ML AMP IVP PRN (17:00)
--- NOTE | 2019-07-28 17:06 | NUR ---
GAVE REPORT TO SHAVON PATEL.
[2019-07-28 19:10] VITALS: BP 120/89
== END 2019-07-28 19:05 | disposition home or self-care (01) ==
LOC: SDC 16:03
PROVIDERS: ATTEND Internal Medicine
DX: A08.4 Viral intestinal infection, unspecified (principal)
CPT/HCPCS: 96360; 96361; 96374; 96375

== ENCOUNTER → 2019-11-11 | Outpatient (CLI) | payer MEDICARE, MEDICAID ==
--- NOTE | 2019-11-11 12:48 | Diagnostic Imaging Report ---
INDICATION: Routine screening. COMPARISON: Comparison is made with prior mammograms from 12/29/2016 and 12/19/2012. 2-D and 3-D bilateral screening mammography was performed. The current study was also evaluated with a Computer Aided Detection (CAD) system. 3-D tomosynthesis was also performed and reviewed. FINDINGS: Both breasts are heterogeneously dense, limiting the sensitivity of mammography. There are vascular calcifications bilaterally. The overall parenchymal pattern appears to be stable. No mass or malignant-appearing microcalcifications are seen. A BB marker was placed at an area of pain described by the patient in the medial left breast but no underlying abnormality is detected. Axillae are unremarkable. IMPRESSION: No mammographic features suspicious for malignancy are identified. ACR BI-RADS Category 2: Benign findings. Result letter will be mailed to the patient. Note: At least 10% of breast cancer is not imaged by mammography. Dictated by: Dictated on workstation # [id number]
== END ==
LOC: RAD 11:30
PROVIDERS: ATTEND Internal Medicine
DX: Z12.31 Encounter for screening mammogram for malignant neoplasm of breast (principal)
CPT/HCPCS: 77067

== ENCOUNTER → 2020-01-05 | Outpatient (CLI) | payer MEDICARE, MEDICAID ==
[~2020-01-05] MED LIST changes: -MAGN400T6 PO; +MAGN400T8 PO
--- NOTE | 2020-01-05 13:08 | Diagnostic Imaging Report ---
INDICATION: Fall with right ankle pain. FINDINGS: Left ankle: There has been previous internal fixation of left tibial fracture with intramedullary irais. The distal left tibial and fibular fractures are well healed. The plafonds and talar dome are intact. Ankle mortise is symmetric. There is no fracture or dislocation on the left. Right ankle: There is an oblique fracture through the distal fibular diaphysis which extends just above the ankle mortise. This is nondisplaced. The plafonds and talar dome are intact. Ankle mortise remains symmetric. There is no other fracture or dislocation. IMPRESSION: Nondisplaced oblique fracture through the distal right fibula. Previous postsurgical changes of the left ankle as described. Dictated by: Dictated on workstation # [id number]
== END ==
LOC: RAD 12:03
PROVIDERS: ATTEND Internal Medicine
DX: S82.431A Displaced oblique fracture of shaft of right fibula, initial encounter for closed fracture (principal); W19.XXXA Unspecified fall, initial encounter

== ENCOUNTER → 2020-01-23 | Outpatient (CLI) | payer MEDICARE, MEDICAID ==
[~2020-01-23] MED LIST changes: +ACHYD1T PO; +CATHETER FLUSH 10 ML SYR IV PRN; -HYDR-3820 PO; +IOHEXOL 300 MG/ML 50 ML (OMNIPAQUE 300) VIAL IV ONE; +MONT10TA26 PO
--- NOTE | 2020-01-23 12:07 | Diagnostic Imaging Report ---
INDICATION: Chest port malfunction. DETAILS OF PROCEDURE: Patient was brought to the fluoroscopy suite, placed on table in the supine position. The patient's left chest wall port was accessed by radiology nursing. Preliminary radiograph of the chest demonstrates the tip of the chest wall port overlying the SVC. No interruption or kinking of the catheter is identified. Lungs are clear. Contrast was injected through the patient's chest wall port. There is free flow of contrast from the catheter tip into the SVC. No extravasation of contrast is seen. No kinking or interruption is identified. IMPRESSION: Unremarkable port check using fluoroscopy. Dictated by: Dictated on workstation # [id number]
--- NOTE | 2020-01-23 12:09 | Diagnostic Imaging Report ---
INDICATION: Preop for port check. TIME OF EXAM: 11:19 a.m. COMPARISON: Comparison is made with prior chest from 08/05/2018. FINDINGS: Left chest wall port has tip overlying the SVC. No kinking or interruption of the port is identified. Lungs are clear. There is no effusion or pneumothorax. IMPRESSION: Stable chest. Dictated by: Dictated on workstation # [id number]
== END ==
LOC: RAD 10:44
PROVIDERS: ATTEND Internal Medicine
DX: T82.9XXA Unspecified complication of cardiac and vascular prosthetic device, implant and graft, initial encounter (principal)
CPT/HCPCS: 36598; 71045

== ENCOUNTER → 2020-04-02 | Outpatient (CLI) | payer MEDICARE, MEDICAID ==
[~2020-04-02] MED LIST changes: +ALTEPLASE 2 MG (CATHFLO) IV ONE; +ALTEPLASE 2 MG (CATHFLO) ONE; -CATHETER FLUSH 10 ML SYR IV PRN; +HEParin (CENTRAL IV FLUSH) 500 UNIT/5 ML SYR IV ONE; +HEParin (CENTRAL IV FLUSH) 500 UNIT/5 ML SYR ONE; +IOHEXOL 240 MGI/ML 50 ML (OMNIPAQUE) VIAL IV ONE; -IOHEXOL 300 MG/ML 50 ML (OMNIPAQUE 300) VIAL IV ONE
--- NOTE | 2020-04-02 12:06 | Diagnostic Imaging Report ---
INDICATION: Malfunctioning left chest wall port. Patient presents for port check. Patient is brought to fluoroscopy suite placed on table in the supine position. The chest wall port was accessed. Small amount of Omnipaque 240 contrast was injected under fluoroscopic observation. 28 seconds of fluoroscopic time was utilized. Left chest wall port is noted with tip overlying the SVC. No definite kinking or interruption of the port tubing is seen. There is no fracture or evidence of extravasation. There does appear to be a fibrin sheath around the catheter tip. There is flow of contrast from the catheter tip. Catheter flow thrombolytic was placed into the chest wall port per Dr. Torrez's order. IMPRESSION: Fluoroscopically assisted port patency evaluation demonstrating some fibrin sheath around the catheter tip. No other complicating features are seen. Dictated by: Dictated on workstation # [id number]
--- NOTE | 2020-04-02 12:11 | NUR ---
Spoke to Dr. Torrez. Notified him Cathflo was instilled into left chest port post port patency study. Cathflo dwelled in catheter for 30 minutes. Blood return from port was obtained. Port pulsatile flushed with 30mL saline and then heparin flush injected.
== END ==
LOC: RAD 10:05
PROVIDERS: ATTEND Surgery
DX: T82.598A Other mechanical complication of other cardiac and vascular devices and implants, initial encounter (principal)
CPT/HCPCS: 36598

== ENCOUNTER → 2020-04-06 | Outpatient (CLI) | payer MEDICARE, MEDICAID ==
[~2020-04-06] MED LIST changes: -ALTEPLASE 2 MG (CATHFLO) IV ONE; -ALTEPLASE 2 MG (CATHFLO) ONE; -HEParin (CENTRAL IV FLUSH) 500 UNIT/5 ML SYR IV ONE; -HEParin (CENTRAL IV FLUSH) 500 UNIT/5 ML SYR ONE; -IOHEXOL 240 MGI/ML 50 ML (OMNIPAQUE) VIAL IV ONE
--- NOTE | 2020-04-06 16:03 | Diagnostic Imaging Report ---
INDICATION: Postmenopausal state, ankle fracture. COMPARISON: None available. FINDINGS: AP Spine L1-L4: [BMD (g/cm2): 1.078] [T-Score: -1.0] [Z-Score: 0.1] [BMD Previous: NA] [BMD % Change: NA] LT Hip Neck: [BMD (g/cm2): 0.883] [T-Score: -1.1] [Z-Score: 0.1] LT Hip Total: [BMD (g/cm2):0.912] [T-Score:-0.8] [Z-Score: 0.1] [BMD Previous: NA] [BMD % Change: NA] RT Hip Neck: [BMD (g/cm2):0.885] [T-Score:-1.1] [Z-Score:0.1] RT Hip Total: [BMD (g/cm2):0.882] [T-score:-1.0] [Z-Score:-0.1] [BMD Previous:NA] [BMD % Change:NA] *Indicates significant change from prior examination based on 95% confidence level. World Health Organization criteria for BMD interpretation classify patients as Normal (T-score at or above -1.0), Osteopenic (T-score between -1.0 and -2.5) or Osteoporotic (T-score at or below -2.5). LIMITATIONS AND MODIFICATION: None. FRACTURE RISK (FRAX SCORE): The ten year probability of (%): Major Osteoporotic Fracture: [21] Hip Fracture: [4.0] IMPRESSION: 1. Osteopenia (Low bone mass). 2. Baseline examination. 3. See below National Osteoporosis Foundation guidelines on when to potentially initiate pharmacologic therapy. Based on the National Osteoporosis Foundation Guidelines, pharmacologic treatment should be initiated in any of the following, unless clinical conditions suggest otherwise: * Any patient with prior fragility fracture of the hip or vertebrae. A spine fracture indicates 5X risk for subsequent spine fracture and 2X risk for subsequent hip fracture. * Osteoporosis (T-score <-2.5). * Postmenopausal women and men age 50 and older with low bone mass/osteopenia (T-score between -1.0 and -2.5) by DXA and 10-year major osteoporotic fracture greater than 20% or a 10-year probability of hip fracture greater than 3%. These fracture risks are supplied above in the FRAX score, if applicable. * Clinician judgement and/or patient preferences may indicate treatment for people with 10-year fracture probabilities above or below these levels. Dictated by: Dictated on workstation # [id number]
== END ==
LOC: RAD 14:26
PROVIDERS: ATTEND Internal Medicine
DX: S82.64XD Nondisplaced fracture of lateral malleolus of right fibula, subsequent encounter for closed fracture with routine healing (principal); E10.9 Type 1 diabetes mellitus without complications; K31.84 Gastroparesis; M85.80 Other specified disorders of bone density and structure, unspecified site; Z78.0 Asymptomatic menopausal state; Z96.89 Presence of other specified functional implants
CPT/HCPCS: 77080

== ENCOUNTER 2020-05-10 05:38 | Outpatient (RCR) | payer MEDICARE, MEDICAID ==
[~2020-05-10] VITALS: Ht 165 cm; Wt 63.6 kg
[~2020-05-10 05:38] MED LIST changes: +CARB200T2 PO; +CHOL500050 PO; +CYCL10TA9 PO; +DOCU100C37 PO; +DOMPERIDONE PO; +FERR240T2 PO; +FLUT9.9S NS; +INSU100I14 SQ; +LIPA1CAP67 PO; +ONAB100V IJ; +POTA-51 PO; +SCOP1PAT11 TD; +UBID1CAP53 PO; +VITA1CAP PO; +ZOLP10TA PO
== END 2020-05-10 15:22 | disposition home or self-care (01) ==
LOC: PREOP 05:38
PROVIDERS: ATTEND Surgery
DX: Z01.818 Encounter for other preprocedural examination (principal); T82.9XXA Unspecified complication of cardiac and vascular prosthetic device, implant and graft, initial encounter; Z20.828 Contact with and (suspected) exposure to other viral communicable diseases
CPT/HCPCS: 87635

== ENCOUNTER 2020-05-13 07:22 | Day surgery (SDC) | payer MEDICARE, MEDICAID ==
[2020-05-13] VITALS (10 sets, daily range): BP systolic 135–163; BP diastolic 71–95
[~2020-05-13] VITALS: Ht 165 cm; Wt 63.6 kg
--- OUTSIDE RECORDS SUMMARY | 2020-05-13 07:27 | XMS REPORT | Encounter Summary ---
Author Author [facility] Organization [facility] Address Unknown Phone Unavailable Care Team Providers Care Otr Driver Name Role Phone Charles Chau MD Unavailable Migue Patton MD PCP Rsosy Leyva [phone] Unavailable Gogo Espinosa RN 2 Unavailable Encounter Details Care Team Description Date Type Department 04/16/2020 Travel Social History Date Tobacco Use Types Packs/Day Years Used Never Smoker Smokeless Tobacco: Never Used Drinks/Week oz/Week Comments Alcohol Use No Sex Assigned at Date Recorded Not on file Industry Job Start Date Occupation Not on file Not on file Not on file Travel End Travel History Travel Start No recent travel history available. Date Recorded COVID-19 Exposure Response 04/16/2020 10:40 AM CDT In the last month, have you been in contact with No / Unsure someone who was confirmed or suspected to have Coronavirus / COVID-19? documented as of this encounter Functional Status Date of Assessment Functional Status Response 01/28/2020 Does the patient have a hearing impairment: No 01/16/2020 Does the patient have a visual impairment: Yes 01/16/2020 Does the patient have impaired ambulation: No 01/16/2020 Does the patient have an activity of daily living No (ADL) impairment: 01/16/2020 Does the patient have an instrumental activity of No daily living (IADL) impairment: Date of Assessment Cognitive Status Response 01/16/2020 Does the patient have a cognitive impairment: No documented as of this encounter Plan of Treatment Not on filedocumented as of this encounter Goals Goal Patient Associated Recent Progress Patient-Stat Aut hor Goal Type Problems ed? GOAL General No Maxine Mata, RN Note: Get better documented as of this encounter Visit Diagnoses Not on filedocumented in this encounter
--- OUTSIDE RECORDS SUMMARY | 2020-05-13 07:27 | XMS REPORT | Encounter Summary ---
Author Author [facility] Organization [facility] Address Unknown Phone Unavailable Care Team Providers Care Baby Stroller Rental Clerk Name Role Phone Charles hCau MD Unavailable Migue Patton MD PCP Rossy Leyva [phone] Unavailable Gogo Espinosa RN 2 Unavailable Encounter Details Care Team Description Date Type Department 04/20/2020 Travel Social History Date Tobacco Use Types Packs/Day Years Used Never Smoker Smokeless Tobacco: Never Used Drinks/Week oz/Week Comments Alcohol Use No Sex Assigned at Date Recorded Not on file Industry Job Start Date Occupation Not on file Not on file Not on file Travel End Travel History Travel Start No recent travel history available. Date Recorded COVID-19 Exposure Response 04/20/2020 8:57 AM CDT In the last month, have [...]
--- OUTSIDE RECORDS SUMMARY | 2020-05-13 07:27 | XMS REPORT | Encounter Summary ---
Author Author [facility] Organization [facility] Address Unknown Phone Unavailable Care Team Providers Care Bowling Alley Attendant Name Role Phone Charles Chau MD Unavailable Migue Patton MD PCP Rossy Leyva [phone] Unavailable Gogo Espinosa RN 2 Unavailable Encounter Details Care Team Description Date Type Department 04/30/2020 Travel Social History Date Tobacco Use Types Packs/Day Years Used Never Smoker Smokeless Tobacco: Never Used Drinks/Week oz/Week Comments Alcohol Use No Sex Assigned at Date Recorded Not on file Industry Job Start Date Occupation Not on file Not on file Not on file Travel End Travel History Travel Start No recent travel history available. Date Recorded COVID-19 Exposure Response 04/30/2020 9:05 AM CDT In the last month, have you been in contact with No / Unsure someone who was confirmed or suspected to have Coronavirus / COVID-19? documented as of this encounter Functional Status Date of Assessment Functional Status Response 04/30/2020 Does the patient have a hearing impairment: No 04/30/2020 Does the patient have a visual impairment: Yes 04/30/2020 Does the patient have impaired ambulation: No 04/30/2020 Does the patient have an activity of daily living No (ADL) impairment: 04/30/2020 Does the patient have an instrumental activity of No daily living (IADL) impairment: Date of Assessment Cognitive Status Response 04/30/2020 Does the patient have a cognitive impairment: No documented as of this encounter Plan of Treatment Not on filedocumented as of this encounter Goals Goal Patient Associated Recent Progress Patient-Stat Aut hor Goal Type Problems ed? GOAL General No Maxine Mata, SHAVON Note: Get better documented as of this encounter Visit Diagnoses Not on filedocumented in this encounter
--- OUTSIDE RECORDS SUMMARY | 2020-05-13 07:27 | XMS REPORT | Encounter Summary ---
Author Author [facility] Organization [facility] Address Unknown Phone Unavailable Care Team Providers Care Substation Operator Transforming Name Role Phone Charles Chau MD Unavailable Migue Patton MD PCP Rossy Leyva [phone] Unavailable Gogo Espinosa RN 2 Unavailable Reason for Visit * Reason Comments Paperwork [facility] Encounter Details Care Team Description [place] [address] [address] [phone] Paperwork ([facility]) 03/18/2020 Telephone [facility] [address] [facility] [address] [place] [address] Social History Date Tobacco Use Types Packs/Day Years Used Never Smoker Smokeless Tobacco: Never Used Drinks/Week oz/Week Comments Alcohol Use No Sex Assigned at Date Recorded Not on file Industry Job Start Date Occupation Not on file Not on file Not on file Travel End Travel History Travel Start No recent travel history available. documented as of this encounter Functional Status [...] impairment: No documented as of this encounter Miscellaneous Notes * Telephone Encounter - Yumiko Long RN - 03/18/2020 4:43 PM CDT Received another fax from [facility] Medical requesting this form be signed and faxed w ith demographic sheet All requested paperwork faxed, with confirmation received 03/17/20 @ 1108 am Original to PRR to scan Copy to folder Closing encounter documented in this encounter Plan of Treatment Not on filedocumented as of this encounter Goals Goal Patient Associated Recent Progress Patient-Stat Aut hor Goal Type Problems ed? GOAL General No Maxine Mata, SHAVON Note: Get better documented as of this encounter Visit Diagnoses Not on filedocumented in this encounter
--- OUTSIDE RECORDS SUMMARY | 2020-05-13 07:27 | XMS REPORT | Encounter Summary ---
Author Author [facility] Organization [facility] Address Unknown Phone Unavailable Care Team Providers Care Advertising Internship Name Role Phone Charles Chau MD Unavailable Migue Patton MD PCP Rossy Leyva [phone] Unavailable Gogo Espinosa RN 2 Unavailable Reason for Visit * Reason Comments Paperwork [facility]/ Encounter Details Care Team Description [place] [address] [address] [phone] Paperwork ([facility]/) 03/11/2020 Telephone [facility] [address] [facility] [address] [place] [address] Social History Date Tobacco Use Types Packs/Day [...] encounter Miscellaneous Notes * Telephone Encounter - Long, Yumiko, RN - 03/11/2020 5:27 PM CDT CGM form signed and faxed to [facility] Fax confirmation received 03/11/20 @ 1657pm Original to PRR to scan to chart Copy in folder Closing encounter documented in this encounter Plan of Treatment Not on filedocumented as of this encounter Goals Goal Patient Associated Recent Progress Patient-Stat Aut hor Goal Type Problems ed? GOAL General No Maxine Mata, RN Note: Get better documented as of this encounter Visit Diagnoses Not on filedocumented in this encounter
--- OUTSIDE RECORDS SUMMARY | 2020-05-13 07:27 | XMS REPORT | Encounter Summary ---
Author Author [facility] Organization [facility] Address Unknown Phone Unavailable Care Team Providers Care Potato Loader Name Role Phone Charles Chau MD Unavailable Migue Patton MD PCP Rossy Leyva [phone] Unavailable Gogo Espinosa RN 2 Unavailable Encounter Details Care Team Description Date Type Department 04/06/2020 Travel Social History Date Tobacco Use Types Packs/Day Years Used Never Smoker Smokeless Tobacco: Never Used Drinks/Week oz/Week Comments Alcohol Use No Sex Assigned at Date Recorded Not on file Industry Job Start Date Occupation Not on file Not on file Not on file Travel End Travel History Travel Start No recent travel history available. Date Recorded COVID-19 Exposure Response 04/06/2020 10:17 AM CDT In the last month, have [...]
--- OUTSIDE RECORDS SUMMARY | 2020-05-13 07:27 | XMS REPORT | Clinical Summary ---
Author Author [facility] Organization [facility] Address Unknown Phone Unavailable Care Team Providers Care Oracle Fusion Consultant Name Role Phone Charles Chau MD Unavailable Migue Patton MD PCP Rossy Leyva [phone] Unavailable Gogo Espinosa RN 2 Unavailable Source Comments Some departments are not documenting in the electronic medical record. If you d o not see the information that you expected, contact Release of Information in [facility] [employer] Information Management department at [phone] for further assistan ce in locating additional records.[facility] Allergies Comments Active Allergy Reactions Severity Noted Date Mouth dystonia Metoclopramide DYSTONIA High 04/18/2019 Sulfa (Sulfonamide HIVES Medium 07/18/2018 Antibiotics) Medications End Date Status Medication Sig Dispensed Refills Start Date Active pregabalin (LYRICA) 150 Take 150 mg 0 mg capsule by mouth twice daily. Active ALPRAZolam (XANAX) 1 mg Take 1 mg by 0 tablet mouth every 8 hours as needed for Anxiety. Active zolpidem (AMBIEN) 10 mg Take 10 mg by 0 tablet mouth at bedtime daily. Active atorvastatin (LIPITOR) 40 Take 40 mg by 0 mg tablet mouth at bedtime daily. Active levothyroxine (SYNTHROID) Take 175 mcg [...] needed. Shake bottle gently before using. Active vitamins, B complex tab Take one 30 tablet 1 tablet by 8 mouth daily. Active coenzyme Q10(+) 100 mg Take one 60 capsule 1 cap capsule by 8 mouth twice daily. Active onabotulinumtoxinA (BOTOX Inject to 0 IJ) area(s) as directed. Every 3 months for headaches. Active carBAMazepine XR(+) Take 200 mg 0 (TEGRETOL XR) 200 mg by mouth tablet twice daily. Active scopolamine Apply one 10 patch 1 (TRANSDERM-SCOP) 1.5 mg 3 patch to top 9 day patch of skin as directed every 72 hours. Please provide generic product Active ferrous gluconate Take 240 mg 0 (FERGON) 240 mg (27 mg by mouth iron) tablet daily. Active glucagon (human Inject 1 mL 1 each 0 recombinant) 1 mg/1 into the 9 mLIndications: muscle as hypoglycemic disorder Needed. Indications: low blood sugar Active fludrocortisone Take one 0 (FLORINEF) 0.1 mg tablet tablet by 9 mouth daily. Active insulin aspart U-100 Inject three 15 mL 3 03/21 (NOVOLOG FLEXPEN) 100 Units under 9 unit/mL (3 mL) injection the skin PEN three times daily after meals. Additional Information Patient taking differently: (No dose reported), Subcutaneous THREE TIMES DAILY WITH MEALS, Informant: Med List, Reported on 04/20/2020 9:04 AM Active insulin degludec (TRESEBA Inject 12 9 mL 0 SOLOSTAR) 100 unit/mL (3 Units under 9 mL) injection pen the skin at bedtime daily. Additional Information Patient taking differently: 14 Units Subcutaneous AT BEDTIME DAILY, Informant: Med List, Reported on 04/20/2020 9:04 AM Active acetaminophen (TYLENOL) Take one 0 500 mg tablet tablet by 9 mouth every 6 hours as needed for Pain. Max of 4,000 mg of acetaminophen in 24 hours. Active lidocaine (LIDODERM) 5 % Apply one 30 patch 1 0 topical patch patch 9 topically to affected area daily. Apply patch for 12 hours, then remove for 12 hours before repeating. Additional Information Patient taking differently: 1 patch Topical DAILY PRN, Apply patch for 12 hours, then remove for 12 hours before repeating., Informant: Med List, Reported on 09/03/2019 3:16 PM Active ondansetron (ZOFRAN) 4 mg Take one 90 tablet 2 tablet tablet by 9 mouth every 6 hours as needed for Nausea or Vomiting. Active pancrelipase (CREON) Take two 720 capsule 2 06/02 36,000-114,000- 180,000 capsules by 9 unit capsule mouth three times daily with meals AND one capsule with snacks. Active dicyclomine (BENTYL) 10 Take 10 mg by 0 mg capsule mouth before meals and at bedtime. Active docusate (COLACE) 100 mg Take one 60 capsule 0 1 capsule capsule by 9 mouth twice daily. Active Miscellaneous Medical Domperidone 540 each 0 12/20 Supply misc 10 mg PO Take 0 1 tablet 3 times daily. Active cephalexin (KEFLEX) 500 Take one 40 capsule 0 mg capsule capsule by 0 mouth four times daily. Active other medication Domperidone 540 each 0 10 mg three 0 times a day orally. Active DOMPERIDONE (BULK) MISC Use 1 tablet 0 as directed three times daily with meals. One tablet before each meal. Active nortriptyline (PAMELOR) Take three 90 capsule 5 25 mg capsule capsules by 0 mouth at bedtime daily. Active tiZANidine (ZANAFLEX) 4 Take one-half 180 tablet 1 mg tablet tablet to one 0 tablet by mouth three times daily as needed. Clinic visit needed before more refills. 05/02/2020 Discontinued (Reorder) nortriptyline (PAMELOR) Take three 90 capsule 3 25 mg capsule capsules by 9 mouth at bedtime daily. 04/20/2020 Discontinued (Error) enoxaparin (LOVENOX) 40 Inject 0.4 mL 14 each 0 mg injection syringe under the 9 skin daily. 04/19/2020 Discontinued tiZANidine (ZANAFLEX) 4 TAKE 1 TO 2 180 tablet 3 mg tablet TABLETS BY 0 MOUTH THREE TIMES DAILY NEEDED 05/02/2020 Discontinued (Reorder) tiZANidine (ZANAFLEX) 4 Take one-half 180 tablet 0 mg tablet tablet to one 0 tablet by mouth three times daily as needed. Clinic visit needed before more refills. Active Problems Patient Care Coordination Note Please complete a medical screening exam to rule out emergent issues. If no emergent needs are identified, please contact the MVP Team. ? MVP Team Contact: ROSINA Allen Pager: [phone] ED Visits: 3 Admissions: 7 ? Primary Dog License Officer Supervisor of Utilization (see progress note): Patient typically presents to ED with a variety of symptoms including DKA, abdominal pain related to gastroparesis, hypotension, and cyclical vomiting syndrome. ? Considerations for Care Planning: If no acute needs identified, consider redirection to external PCP clinic or an outpatient speciality clinic. Patient may benefit from education regarding early reporting of the onset of symptoms to appropriate clinics. Consider outpatient palliative care follow-up for pain and symptom management. Patient may benefit from support groups or [facility] (P:[phone]) resources. Patient D/C last on 04/18/2019 home with no services. ? Providers: Milena Bhatti [facility] / [facility] / [facility] ? Pt last assessed: Unable to assess last IP admission. Problem Noted Date Hypoglycemia associated with diabetes 04/20/2020 S/P hardware removal 09/02/2019 Gastroparesis 05/05/2019 Chronic pancreatitis 04/18/2019 Intractable vomiting with nausea 04/18/2019 Moderate malnutrition 04/15/2019 History of diabetic gastroparesis 04/14/2019 Gastroparesis due to DM 02/21/2019 Hospital discharge follow-up 02/21/2019 Cyclic vomiting syndrome 02/12/2019 Migraine headache 11/15/2018 Anxiety and depression 10/13/2018 Seizure disorder 10/13/2018 Hypotension 10/09/2018 CLL (chronic lymphocytic leukemia) 10/02/2018 Cancer Staging: Clinical stage from : Modified Diallo Stage I (Modified Diallo risk: Intermediate, Binet : Stage B, Lymphocytosis: Present, Adenopathy: Present, Organomegaly: Abse nt, Anemia: Absent, Thrombocytopenia: Absent) - Signed by Lyn Jensen MBBS on 10/02/2018 Overview: Diagnosis: CLL Modified Diallo-I (Lymphocytosis + enla rged lymph nodes) -Intermediate risk Binet staging-B (Three or more lymph oid bearing areas enlarged) CD38 positive ZAP-70 Neg FISH-has trisomy 12 and 20% of the C LL lines. She also has some very small clone, 1% 17 P deleted clone. IGHV mutation was not done L ast Assessment & Plan: Ms. Issa Castillo is a 59 year old fema le with CLL, Diallo stage I with trisomy 12. She is treatment naive and continues on watchful waiting. Previous left axillary mass with small bilateral cervical nodes were not palpable on exam. Impression: 1. Chronic lymphocytic leukemia, Diallo St age I 2. Type I diabetes with severe hypergly cemia 3. Sprained right foot with diabetic ul cers 4. Diabetic gastroparesis 5. Gastritis 6. 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 ECOG PS 1 Plan: 1. Clinically stable. Leukocytosis and lymphocytosis are only slightly increased since last visit on 10/10/19. ALC at 7,395 today on 04/16/29 compared to 6,200 at last visit. Hemogl obin and platelet counts remain normal. No evidence of lymphocyte doubl ing, lymphadenopathy or organomegaly on today's exam. 2. She has persistently mildly elevated alkaline phosphatase that may be medication related. Will continue to mo nitor. 3. Continue surveillance of CLL with H& P and labs every 6 months. 4. I reinforced prior education on sign s and symptoms of progression of CLL and when to notify clinic. These signs include, recurring fevers without infectious etiology, drenching night sw eats, chills, unintentional weight loss, early satiety or left upper abdom inal discomfort, or progressive, enlarging lymph nodes. 5. Continue follow-up with endocrine an d PCP for management of diabetes mellitus and insulin requirements. 6. Also follow-up with PCP for routine healthcare maintenance and age-appropriate screenings (last colono scopy 2017) and vaccinations. 7. Continue follow-up with GI team maynor chicas diabetic gastroparesis. Follow-up: RTC in 6 months or sooner sh ould concerns develop. Patient agreed with plan of care and ve rbalized understanding. Questions and concerns were addressed to patient' s satisfaction. Nae Mansfield APRN-ELECTRICAL CONTROLS ENGINEER Division of Hematology and Oncology Pager [phone] Abdominal pain 09/18/2018 Healthcare maintenance 08/19/2018 Last Assessment & Plan: -Age appropriate anticipatory guidance given -Vaccinations: -Td/Tdap vaccine: obtain outside record s -Flu vaccine: due, will give today -Pneumococcal vaccine: obtain outside r ecords -Shingles vaccine: obtain outside recor ds -Colon Cancer screening: colonoscopy do 2011, will obtain outside records to determine follow-up interval -Breast cancer screening: done Nov 2017 -Cervical Cancer screening: due -Lung Cancer screening: not indicated b ased on age/risk -Osteoporosis: not indicated based on a ge/risk -BMI: Discussed patient's BMI with her. The body mass index is 23.46 kg/m. and falls within the category o f Acceptable (19 to <25); BMI plan is in progress. -Depression: PHQ2 screen done on 8 -Tobacco/Alcohol: never smoker -HTN/HLD: BP at goal, obtain outside re cords for HLD screening -DM: diagnosed with T1DM -Hepatitis: obtain outside records -HIV: obtain outside records -Eye exam: counseled on regular eye exa Follows [facility], saw them last in 2016 Orthostatic hypotension 08/19/2018 Last Assessment & Plan: -episodes of hypotension while in the h ospital -orthostatic hypotension without syncop e in the office today -recently increased to fludrocortisone 0.3mg and taking at night - managed by her PCP -has appointment with PCP today for rep eat BP check and dose adjustment, will defer management to him Immunosuppression due to drug therapy 08/19/2018 Last Assessment & Plan: -on Plaquenil for arthritis - uncertain diagnosis -patient states she receives this medic ation from her PCP -follows with [facility] -obtain outside records -high-dose flu vaccine today Acquired hypothyroidism 08/19/2018 Last Assessment & Plan: -TSH low 08/04 with normal T4 -continue levothyroxine 175mcg for now, repeat level in 6 weeks if patient decides to follow with our clinic LAD (lymphadenopathy), axillary 08/19/2018 Last Assessment & Plan: -noted on CT chest while in the hospita l -none noted on exam today -olson-positive ROS -mammogram Nov 2017 normal -tiny calcified nodule on CT chest duri ng hospitalization - patient is a non-smoker, no follow-up needed -obtain outside records prior to orderi ng further studies Chronic abdominal pain 07/19/2018 Last Assessment & Plan: -multiple admissions and ER visit -has follow-up with GI scheduled -on tizanidine, sucralafate, promethazi ne, Lyrica, Miralax, PPI, zofran ODT, and GI cocktail -has had normal emptying study -normal cortisol stim test during recen t admission -patient with hyperpigmented skin -question whether she could have polygl andular autoimmune syndrome type 2 given T1DM & hypothyroidism - will foll ow-up endo recommendations and consider Celiac screen if not already d one Other dysphagia 07/18/2018 Other constipation 07/18/2018 Intractable cyclical vomiting with nausea 07/18/2018 Gastritis 07/18/2018 Type 1 diabetes, uncontrolled, with neuropathy 07/18 Last Assessment & Plan: -current regimen Treseba 15U qhs and Hu malog 4U q4h plus SSI -managed by PCP -has had labile BS ranging 30s-500s -symptoms of increased thirst and polyu jennifer -HA1C 11.4% on 07/19/18 - under poor con trol -has appt to establish with endocrine i n Sep 2018 -will refer to diabetic nurse educator due to confusion over SSI Dysthymia 07/18/2018 Anxiety 07/18/2018 Last Assessment & Plan: -Generalized anxiety, not well controll ed -patient on Xanax 1mg qhs PRN as well a s Ambien -also on Ativan for possible seizures -on duloxetine for depression, anxiety, and pain -managed by PCP in [place], [place] -discussed with patient that she would need to establish with psychiatry (referral pending, was ordered in the h ospital) due to need for multiple medications with uncontrolled symptoms -obtain outside records Migraine with aura and with status migrainosus, not i ntractable 07/18/2018 Epigastric pain 07/18/2018 Resolved Problems Problem Noted Date Resolved Date Painful orthopaedic hardware 08/18/2019 9 DKA (diabetic ketoacidoses) 11/15/2018 11/17/2018 Tibia/fibula fracture 10/12/2018 12/15/2019 Diarrhea 10/09/2018 02/21/2019 Encounters Care Team Description Date Type Specialty Lovely Wilson APRN Pain of upper abdomen (Primary Dx); Neuropathic pain 04/30/2020 Office Visit Anesthesia Pain Telehealth 04/30/2020 Travel Taylor Avelar MD Paperwork ([facility] Medical/[facility]) 04/21/2020 Telephone Endocrinology, [facility] Taylor Avelar MD Type 1 diabetes, uncontrolled, with neur opathy (HCC) (Primary Dx); Hypoglycemia associated with diabetes (HCC); CLL (chronic lymphocytic leukemia) (HCC) 04/20/2020 Office Visit Diabetes Services Telehealth 04/20/2020 Travel David Chávez MD 04/17/2020 Refill Anesthesia Pain Nae Mansfield APRN-JACKY CLL (chronic lymphocytic leukemia) (HCC) 04/16/2020 Office Visit Oncology Nae Mansfield APRN-NP CLL (chronic lymphocytic leukemia) (HCC) 04/16/2020 Lab Only Oncology 04/16/2020 Travel Balbina Matamoros APRN-Gunnar Alfaro MD Other chronic pancreatitis (HCC) (Primar y Dx); Gastroparesis 04/06/2020 Office Visit Gastroenterology Telehealth 04/06/2020 Travel Taylor Avelar MD Paperwork ([facility] Medical) 03/23/2020 Telephone Endocrinology, [facility] Taylor Avelar MD Paperwork ([facility] Medical) 03/18/2020 Telephone [facility] Taylor Avelar MD Paperwork ([facility] Medical/[facility]/) 03/11/2020 Telephone [facility]ology [facility] Taylor Avelar MD Paperwork ([facility] note request) 02/26/2020 Telephone Endocrinology, [facility] from Last 3 Months Immunizations Name Administration Dates Next Due Flu Vaccine =>67 YO 08/19/2018 High-Dose (PF) Family History Medical [...] or suspected to have Coronavirus / COVID-19? Last Filed Vital Signs Reading Time Taken Comments Vital Sign 113/73 04/30/2020 9:03 AM CDT Blood Pressure 91 04/30/2020 9:03 AM CDT Pulse 36.4 C (97.6 F) 04/30/2020 9:03 AM CDT Temperature 16 01/28/2020 10:33 AM CDT Respiratory Rate 98% 04/16/2020 11:56 AM CDT Oxygen Saturation - - Inhaled Oxygen Concentration 61.2 kg (135 lb) 04/30/2020 9:03 AM CDT Weight 165.1 cm (5' 5") 04/30/2020 9:03 AM CDT Height 22.47 04/30/2020 9:03 AM CDT Body Mass Index Plan of Treatment Health Maintenance Due Date Last Done Comments MEDICARE ANNUAL WELLNESS 1962 VISIT DTAP/TDAP VACCINES (1 - 1980 Tdap) MICROALBUMIN 1980 PHYSICAL (COMPREHENSIVE) 1980 EXAM PNEUMONIA VACCINE (DM) 1980 CERVICAL CANCER SCREENING 1983 SHINGLES RECOMBINANT 2012 VACCINE (1 of 2) DILATED EYE EXAM 09/19/2018 09/19/2017 (Previously completed) BREAST CANCER SCREENING 11/19/2018 11/19/2017 (Previously completed) FOOT EXAM 06/24/2020 06/24/2019, 10/08/2018 HBA1C 07/30/2020 01/28/2020, 06/24/2019, 01/20/2019, Additional history exists INFLUENZA VACCINE 08/19/2020 08/19/2018 COLORECTAL CANCER 09/20/2023 09/20/2018, SCREENING 2013 (Previously completed) HEPATITIS C SCREENING Completed 09/18/2018 HIV SCREENING Completed 09/18/2018 Goals Goal Patient Associated Recent Progress Patient-Stat Aut hor Goal Type Problems ed? GOAL General No Maxine Mata, SHAVON Note: Get better Implants Device Identifier Shelf Expiration Date Model / Serial / L ot Implanted Type Area Manufactur er 12/19/2022 [id number] / N/A / [id number] Nail [id number] Synthes Left: Tibia SYNTHES Implanted: Qty: 1 on 09/02/2019 by SYNTHES Vinicio Pang MD at [facility] [id number] / N/A / N/A Screw Bone 5mm 8mm 32mm Titanium Left: Tibia DEPU Y Full Thread Femur Blunt Tip - Sn/A SYNTHES CO Implanted: Qty: 1 on 09/02/2019 by Vinicio Pang MD at [facility] Device Identifier Shelf Expiration Date Model / Serial / L ot Explanted Type Area Manufactur er 05/18/2026 [id number] / NA / [id number] Nail 9.3mm 11mm 32cm Tibial Nail Left: Tibia ZI MMER Suprapatella Natural Nail - Sna RYAN US Implanted: Qty: 1 on 10/14/2018 by Paul Manley MD at [facility] Explanted: Qty: 1 on 09/02/2019 by Vinicio Pang MD at [facility] [id number] / NA / NA Plate 1/3 Tube Titanium Henderson Plate Left: Tibia RYAN Locking System 5 Hole Lock - Sna RYAN US Implanted: Qty: 1 on 10/14/2018 by Paul Manley MD at [facility] Explanted: Qty: 1 on 09/02/2019 at [facility] [id number] / NA / NA Screw Bone 4mm 38mm Titanium Screw Left: Tibia Z IMMER Cancellous Nonsterile Henderson - RYAN US Sna Implanted: Qty: 1 on 10/14/2018 by Paul Manley MD at [facility] Explanted: Qty: 1 on 09/02/2019 at [facility] [id number] / NA / NA Screw Bone 3.5mm 5.9mm 30mm [id number] Screw Left: Tibi a UNIDENTIFI Cortical Self Tap - Sna ED MFG Implanted: Qty: 1 on 10/14/2018 by Paul Manley MD at [facility] Explanted: Qty: 1 on 09/02/2019 by Vinicio Pang MD at [facility] 06/18/2028 [id number] / N/A / [id number] Screw Bone 5mm 3.5mm 30mm [id number] Left: Tibia ZIM DEJAN Full Thread Cortical - Sn/A RYAN US Implanted: Qty: 1 on 10/14/2018 by Paul Manley MD at [facility] Explanted: Qty: 1 on 09/02/2019 by Vinicio Pang MD at [facility] 09/18/2027 [id number] / N/A / [id number] Screw Bone 5mm 3.5mm 37.5mm [id number] Left: Tibia Z IMMER Full Thread Cortical - Sn/A RYAN US Implanted: Qty: 1 on 10/14/2018 by Paul Manley MD at [facility] Explanted: Qty: 1 on 09/02/2019 at [facility] 06/18/2028 [id number] / N/A / [id number] Screw Bone 5mm 3.5mm 40mm [id number] Left: Tibia ZIM DEJAN Full Thread Cortical - Sn/A RYAN US Implanted: Qty: 1 on 10/14/2018 by Paul Manley MD at [facility] Explanted: Qty: 1 on 09/02/2019 at [facility] Results Not on filefrom Last 3 Months Insurance Type Payer Benefit Subscriber ID Effective Phone Address Plan / Dates Group Medicare MEDICARE MEDICARE xxxxxxxxxxx 1998-P PART A AND resent B AETNA MEDICAID AETNA xxxxxxxxxxx 2019-P BETTER [facility] [place] [facility] xxxxxxxxx 9 [place] -Present HEALTH/SNF /SENIOR LIVING Advance Directives Patient Special Agent In Charge Explanation Type Date Recorded Advance 01/28/2020 1:06 PM Directive/DPOA Date Inactivated Comments Code Status Date Activated 09/04/2019 3:43 PM Full Code 09/02/2019 5:22 PM Provider has discussed Code Status No, discussion no t w/Patient or Family? necessary based on Dx 05/07/2019 7:04 PM Full Code 05/05/2019 5:12 PM Provider has discussed Code Status Yes w/Patient or Family? 04/18/2019 1:47 PM Full Code 04/14/2019 8:51 PM Provider has discussed Code Status No, more discussi on w/Patient or Family? needed 02/14/2019 3:06 PM Full Code 02/12/2019 7:10 AM Provider has discussed Code Status Yes w/Patient or Family? 11/20/2018 4:16 PM Full Code 11/15/2018 7:37 PM Provider has discussed Code Status Yes w/Patient or Family?
--- OUTSIDE RECORDS SUMMARY | 2020-05-13 07:27 | XMS REPORT | Encounter Summary ---
Author Author [facility] Organization [facility] Address Unknown Phone Unavailable Care Team Providers Care Gas Analyst Name Role Phone Charles Chau MD Unavailable Migue Patton MD PCP Rossy Leyva [phone] Unavailable Gogo Espinosa RN 2 Unavailable Reason for Visit * Reason Comments Heme/Onc Care Encounter Details Care Team Description Date Type Department Nae Mansfield, TRUCK DRIVER RUBBISH COLLECTOR-SUPERVISOR [employer] DIV[employer] [address] [place], [place] [phone] CLL (chronic lymphocytic leukemia) (HCC) 04/16/2020 Lab Only The [address] [address] Social History Date Tobacco Use Types Packs/Day [...] Type Problems ed? GOAL General No Maxine Mata RN Note: Get better documented as of this encounter Visit Diagnoses Diagnosis CLL (chronic lymphocytic leukemia) (HCC ) Chronic lymphoid leukemia, without ment ion of having achieved remission documented in this encounter Administered Medications Action Date Dose Rate Site Medication Order MAR Action 04/16/2020 11:18 AM CDT 500 Units heparin lock flush PF syringe 500 Units Given 500 Units, Flush, ONCE, 1 dose, Sun04/16/20 at 1100, NOTE: This is a HIGH ALERT Medication., documented in this encounter
--- OUTSIDE RECORDS SUMMARY | 2020-05-13 07:27 | XMS REPORT | Encounter Summary ---
Author Author [facility] Organization [facility] Address Unknown Phone Unavailable Care Team Providers Care Export Coordinator Name Role Phone Charles Chau MD Unavailable Migue Patton MD PCP Rossy Leyva [phone] Unavailable Gogo Espinosa RN 2 Unavailable Reason for Visit * Reason Comments Follow Up Encounter Details Care Team Description Date Type Department Nae Mansfield, GERICARE AIDE TEACHER-DIRECTOR OF INTERCOLLEGIATE ATHLETICS [address] [place], [place] [phone] CLL (chronic lymphocytic leukemia) (HCC) 04/16/2020 Office Visit The [address] [phone] Social History Date Tobacco Use Types Packs/Day [...] / COVID-19? documented as of this encounter Last Filed Vital Signs Reading Time Taken Comments Vital Sign 128/72 04/16/2020 11:56 AM CDT Blood Pressure 100 04/16/2020 11:56 AM CDT Pulse 36.1 C (97 F) 04/16/2020 11:56 AM CDT Temperature - - Respiratory Rate 98% 04/16/2020 11:56 AM CDT Oxygen Saturation - - Inhaled Oxygen Concentration - - Weight - - Height - - Body Mass Index documented in this encounter Functional Status Date of [...] impairment: No documented as of this encounter Patient Instructions * Patient Instructions* Nae Mansfield APRN-NP - 04/16/2020 11:30 AM CDT Your care team: Dr. Milena Bhatti Toll Settlement Clerk [facility] Hematology Nurse Practitioner Clinical Nurse Coordinators (CNC's) Sally Moseley RN, BSN Michelle Parikh RN, BSN [place]: - We strongly recommend signing up for [employer], our patient access portal, and s ending us non-urgent questions/concerns through this portal. We will reply withjoann dutton one business day. - This is also a great resource to view all of your labs and scan results. - Please feel free to ask our energy scheduler upon checkout for help setting [facility]. Notify Clinic for the Following: ? Fevers at or greater than 100.5 degrees (do not take Tylenol until you have sp oken to a provider) ? Persistent or uncontrolled vomiting ? Persistent or uncontrolled diarrhea (more than 6 watery stools per day) or sig ns of blood in stools ? Progressive cough with increased sputum (phlegm or mucus) production accompani ed by increased shortness of breath ? Recurrent nosebleeds or nosebleeds that lasts longer than 30 minutes. ? Severe mouth sores/mouth pain ? Severe constipation without a bowel movement in 4-5 days or significant strain ing. Phone numbers: [place]: [phone] Sourav Hinkle: [phone] Bhatti's nurse line if you have non-urgent questions or co ncerns during business hours. Messages left on nurses line are checked Sunday through Sunday between the hours of 8:00 AM and 3:30 PM. Messages left after 3:30 pm will be returned the follow ing day. Evening (after 4:00 PM), weekends, and holiday on-call: [phone] For urgent needs after hours, please ask for the oncologist on-call to be paged. For urgent needs during business hours, please ask for Sally Martinez, Dr. River carrillo's and Nae Mansfield's nurse coordinators, to be paged. Notes: - Allow 7-10 business days for our office to complete any requested paperwork (F MLA, etc.) - Allow two to three business days for all medication refills. Please call your pharmacy first to check for available refills. documented in this encounter Progress Notes * Nae Mansfield APRN-NP - 04/16/2020 11:30 AM CDT Name: Chelsea Castillo : 1960 AGE: 59 y.o. DATE OF SERVICE: 04/16/2020 Reason for Visit: CLL Follow-up Subjective: Interim History 04/16/20: Chelsea Castillo is a 58 y.o. female who returns for 3-month follow-up of CLL. Last seen on 01/16/[address] Bhatti. Denies recent fevers, chills, drenching night sweats, unintentional weight loss, or new or progressive adenopathy. Does not notice previous axillary and neck no dontae. No infections, transfusions, or unplanned hospitalizations in the interim. Her right foot was placed in a boot due to diabetic ulcers and sprain. Continues to have intermittent abdominal pain associated with her diabetic gastr oparesis. Follows with GI clinic and endocrine. She lives in [place], [place]. Currently residing with her sister. Cancer Staging CLL (chronic lymphocytic leukemia) ([facility]) Staging form: Chronic Lymphocytic Leukemia / Small Lymphocytic Lymphoma, AJCC 8t h Edition - Clinical stage from 10/02/2018: Modified Diallo Stage I (Modified Diallo risk: Inter mediate, Binet: Stage B, Lymphocytosis: Present, Adenopathy: Present, Organomega ly: Absent, Anemia: Absent, Thrombocytopenia: Absent) - Signed by Fabián Hammonds MBBS on 10/02/2018 History of Present Illness Chelsea Castillo is a 58-year-old female with multiple comorbidities includ ing type 1 diabetes on insulin, history of seizures, chronic abdominal pain with possible gastroparesis who was referred to our clinic for new diagnosis of chronometer assembler kira lymphocytic leukemia. 1. Patient was admitted to [facility] from 09-17-2018 to 09-27-2018 for evaluation of abdominal pain. She has had several admissions for abdominal pain in the past on e year. 2. CT scan of abdomen pelvis on 09-16-2018 showed mild external iliac lymphadeno tyler bilaterally. Largest left external iliac lymph node measures 1.6 cm. There are also mildly prominent inguinal lymph nodes bilaterally which are reactive in appearance. 3. She also had a CT chest which showed enlarged bilateral axillary and subpecto ral lymph nodes. CT neck revealed mild submental, bilateral submandibular, left level 2A, and bilateral subpectoral and axillary lymphadenopathy. 4. Left axillary lymph node core needle biopsy on 09-24-2018 that showed solid s heets of small monotonous lymphocytes. The diagnosis was consistent with small l ymphocytic lymphoma/CLL. 5. Peripheral blood flow cytometry showed CD5 positive B-cell proliferation. B-c ells comprise 12.8% of total events that are positive for CD5, CD19, CD20, CD23, CD38, CD 200 and monoclonal lambda. Cells were negative for CD10, CD34, and FM C7. 6. Neoplastic B-cells were negative for ZAP 70 and positive for CD38. 7. Currently on surveillance of her CLL. Review of Systems Constitutional: Positive for diaphoresis (1-2 times per months), fatigue and une xpected weight change. HENT: Negative for tinnitus and trouble swallowing. Respiratory: Negative for cough and shortness of breath. Cardiovascular: Negative for chest pain, palpitations and leg swelling. Gastrointestinal: Positive for abdominal pain. Negative for blood in stool, cons tipation and diarrhea. Musculoskeletal: Positive for arthralgias. Skin: Positive for wound (feet). Negative for pallor and rash. Neurological: Positive for weakness and numbness (diabetic neuropathy). Negative for dizziness, light-headedness and headaches. Hematological: Negative for adenopathy. Does not bruise/bleed easily. All other systems reviewed and are negative. Medical History: Diagnosis Date Arthritis Chronic abdominal pain Cyclic vomiting syndrome Diabetes mellitus type 1 (HCC) Orthostatic hypotension Osteoporosis Stomach problems Thyroid disorder Surgical History: Procedure Laterality Date GALLBLADDER SURGERY 1989 HX HYSTERECTOMY 12/2001 EYE SURGERY 07/2005 laser eye rietina, eyes were bleeding behind them. CARPAL TUNNEL RELEASE Right 08/2012 right hand HAND SURGERY 09/2013 HERNIA REPAIR 03/2014 ESOPHAGUS SURGERY 03/2014 Esophageal ulcers and healing ESOPHAGOGASTRODUODENOSCOPY N/A 09/20/2018 Performed by Charles Chau MD at [facility] COLONOSCOPY N/A 09/20/2018 Performed by Charles Chau MD at [facility] ESOPHAGOGASTRODUODENOSCOPY BIOPSY 09/20/2018 Performed by Charles Chau MD at [facility] COLONOSCOPY BIOPSY 09/20/2018 Performed by Charles Chau MD at [facility] COLONOSCOPY EXCISION LESION 09/20/2018 Performed by Charles Chau MD at [facility] ESOPHAGOGASTRODUODENOSCOPY with extensive gastric biopsies, concern for lymp komal involving GI tract N/A 09/26/2018 Performed by Kymberly Us MD at [facility] ENDO ESOPHAGOGASTRODUODENOSCOPY WITH BIOPSY - FLEXIBLE 09/26/2018 Performed by Kymberly Us MD at [facility] OPEN TREATMENT TIBIAL SHAFT FRACTURE IM NAIL Left 10/14/2018 Performed by Paul Manley MD at [facility] OR ESOPHAGOGASTRODUODENOSCOPY WITH SPECIMEN COLLECTION BY BRUSHING/ WASHING N/A 02/03/2019 Performed by Gunnar Kirk MD at [facility] BREATH HYDROGEN/ METHANE TESTING - LACTULOSE N/A 06/18/2019 Performed by Gunnar Kirk MD at [facility]O REMOVAL HARDWARE - DEEP - LOWER EXTREMITY Left 09/02/2019 Performed by Vinicio Pang MD at [facility] OR TREATMENT TIBIAL SHAFT FRACTURE WITH INTRAMEDULLARY IMPLANT WITH INTERLOCKIN G SCREWS Left 09/02/2019 Performed by Vinicio Pang MD at [facility] OR Family History Problem Relation Age of Onset [...] level: Not on file Occupational History Occupation: [employer] Comment: diasabled Tobacco Use Smoking status: Never Smoker Smokeless tobacco: Never Used Substance and Sexual Activity Alcohol use: No Drug use: No Sexual activity: Not on file Other Topics Concern Not on file Social History Narrative Not on file Objective: acetaminophen (TYLENOL) 500 mg tablet Take one tablet by mouth every 6 hours as needed for Pain. Max of 4,000 mg of acetaminophen in 24 hours. ALPRAZolam (XANAX) 1 mg tablet Take 1 mg by mouth every 8 hours as needed fo r Anxiety. atorvastatin (LIPITOR) 40 mg tablet Take 40 mg by mouth at bedtime daily. carBAMazepine XR(+) (TEGRETOL XR) 200 mg tablet Take 200 mg by mouth twice d aily. cephalexin (KEFLEX) 500 mg capsule Take one capsule by mouth four times dena y. cetirizine (ZYRTEC) 10 mg tablet Take 10 mg by mouth every morning. cholecalciferol(+) (VITAMIN D-3) 5,000 unit tablet Take 5,000 Units by mouth daily. coenzyme Q10(+) 100 mg cap Take one capsule by mouth twice daily. dicyclomine (BENTYL) 10 mg capsule Take 10 mg by mouth before meals and at b edtime. docusate (COLACE) 100 mg capsule Take one capsule by mouth twice daily. DOMPERIDONE (BULK) MISC Use 1 tablet as directed three times daily with meal s. One tablet before each meal. enoxaparin (LOVENOX) 40 mg injection syringe Inject 0.4 mL under the skin da дмитрий. ferrous gluconate (FERGON) 240 mg (27 mg iron) tablet Take 240 mg by mouth d aily. fesoterodine ER(+) (TOVIAZ) 4 mg tablet Take 4 mg by mouth daily. fludrocortisone (FLORINEF) 0.1 mg tablet Take one tablet by mouth daily. fluticasone (FLONASE) 50 mcg/actuation nasal spray Apply 1 spray to each nos tril as directed daily as needed. Shake bottle gently before using. glucagon (human recombinant) 1 mg/1 mL Inject 1 mL into the muscle as Needed . Indications: low blood sugar insulin aspart U-100 (NOVOLOG FLEXPEN) 100 unit/mL (3 mL) injection PEN Inje ct three Units under the skin three times daily after meals. (Patient taking dif ferently: Inject 4 Units under the skin three times daily with meals.) insulin degludec (TRESEBA SOLOSTAR) 100 unit/mL (3 mL) injection pen Inject 12 Units under the skin at bedtime daily. levothyroxine (SYNTHROID) 175 mcg tablet Take 175 mcg by mouth daily 30 raciel deuce before breakfast. lidocaine (LIDODERM) 5 % topical patch Apply one patch topically to affected area daily. Apply patch for 12 hours, then remove for 12 hours before repeating. (Patient taking differently: Apply 1 patch topically to affected area daily as needed. Apply patch for 12 hours, then remove for 12 hours before repeating.) Miscellaneous Medical Supply mis Domperidone 10 mg PO Take 1 tablet 3 times daily. montelukast (SINGULAIR) 10 mg tablet Take 10 mg by mouth at bedtime daily. nortriptyline (PAMELOR) 25 mg capsule Take three capsules by mouth at bedtim e daily. onabotulinumtoxinA (BOTOX IJ) Inject to area(s) as directed. Every 3 months for headaches. ondansetron (ZOFRAN) 4 mg tablet Take one tablet by mouth every 6 hours as n eeded for Nausea or Vomiting. other medication Domperidone 10 mg three times a day orally. pancrelipase (CREON) 36,000-114,000- 180,000 unit capsule Take two capsules by mouth three times daily with meals AND one capsule with snacks. pantoprazole DR (PROTONIX) 40 mg tablet Take 40 mg by mouth daily. potassium chloride SR (K-DUR) 10 mEq tablet Take 10 mEq by mouth daily. Take with a meal and a full glass of water. pregabalin (LYRICA) 150 mg capsule Take 150 mg by mouth twice daily. rizatriptan (MAXALT) 10 mg tablet Take 10 mg by mouth once as needed for Hea dache. May repeat in 2 hours if needed scopolamine (TRANSDERM-SCOP) 1.5 mg 3 day patch Apply one patch to top of sk in as directed every 72 hours. Please provide generic product tiZANidine (ZANAFLEX) 4 mg tablet TAKE 1 TO 2 TABLETS BY MOUTH THREE TIMES D AILY NEEDED vitamins, B complex tab Take one tablet by mouth daily. zolpidem (AMBIEN) 10 mg tablet Take 10 mg by mouth at bedtime daily. Vitals: 04/16/20 1156 BP: 128/72 BP Source: Arm, Left Upper Patient Position: Sitting Pulse: 100 Temp: 36.1 C (97 F) TempSrc: Temporal SpO2: 98% PainSc: Two There is no height or weight on file to calculate BMI. Pain Score: Two Pain Loc: Leg Pain Addressed: N/A Patient Evaluated for a Clinical Trial: No treatment clinical trial available fo r this patient. Eastern Cooperative Oncology Group performance status is 0, Fully active, able t o carry on all pre-disease performance without restriction.. Physical Exam Vitals signs and nursing note reviewed. Constitutional: General: She is not in acute distress. Appearance: She is not diaphoretic. HENT: Head: Normocephalic and atraumatic. Nose: Nose normal. Mouth/Throat: Pharynx: No oropharyngeal exudate. Eyes: General: No scleral icterus. Right eye: No discharge. Left eye: No discharge. Conjunctiva/sclera: Conjunctivae normal. Neck: Musculoskeletal: Normal range of motion and neck supple. Cardiovascular: Rate and Rhythm: Normal rate and regular rhythm. Pulses: Normal pulses. Heart sounds: Normal heart sounds, S1 normal and S2 normal. No murmur. Pulmonary: Effort: Pulmonary effort is normal. Breath sounds: Normal breath sounds. No wheezing, rhonchi or rales. Abdominal: General: Bowel sounds are normal. There is no distension. Palpations: Abdomen is soft. There is no hepatomegaly, splenomegaly or mass. Tenderness: There is no abdominal tenderness. There is no guarding. Comments: Liver and spleen nonpalpable Musculoskeletal: Comments: Orthopedic boot to right foot. Lymphadenopathy: Head: Right side of head: No occipital adenopathy. Left side of head: No occipital adenopathy. Cervical: Cervical adenopathy present. Right cervical: Superficial cervical adenopathy present. Left cervical: Superficial cervical adenopathy present. Upper Body: Right upper body: No supraclavicular adenopathy. Left upper body: No supraclavicular adenopathy. Lower Body: No right inguinal adenopathy. No left inguinal adenopathy. Comments: Previous bilateral cervical and left axillary nodes not palpable. Left axillary node previously 3-4 cm. There is no palpable cervical, axillary, or inguinal lymphadenopathy. Skin: General: Skin is warm and dry. Capillary Refill: Capillary refill takes less than 2 seconds. Coloration: Skin is not pale. Findings: No rash. Neurological: Mental Status: She is alert and oriented to person, place, and time. Psychiatric: Behavior: Behavior normal. Assessment and Plan: Problem Cll (Chronic Lymphocytic Leukemia) ([facility]) Diagnosis: CLL Modified Diallo-I (Lymphocytosis + enlarged lymph nodes) -Intermediate risk Binet staging-B (Three or more lymphoid bearing areas enlarged) CD38 positive ZAP-70 Neg FISH-has trisomy 12 and 20% of the CLL lines. She also has some very small c lone, 1% 17 P deleted clone. IGHV mutation was not done CLL (chronic lymphocytic leukemia) ([facility]) Ms. Issa Castillo is a 59 year old female with CLL, Diallo stage I with trisomy 12. She is treatment naive and continues on watchful waiting. Previous left axillary mass with small bilateral cervical nodes were not palpable on exam. Impression: 1. Chronic lymphocytic leukemia, Diallo Stage I 2. Type I diabetes with severe hyperglycemia 3. Sprained right foot with diabetic ulcers 4. Diabetic gastroparesis 5. Gastritis 6. 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 ECOG PS 1 Plan: 7. Clinically stable. Leukocytosis and lymphocytosis are only slightly increased since last visit on 10/10/19. ALC at 7,395 today on 04/16/29 compared to 6,200 at last visit. Hemoglobin and platelet counts remain normal. No evidence of lymph ocyte doubling, lymphadenopathy or organomegaly on today's exam. 8. She has persistently mildly elevated alkaline phosphatase that may be medicat ion related. Will continue to monitor. 9. Continue surveillance of CLL with H&P and labs every 6 months. 10. I reinforced prior education on signs and symptoms of progression of CLL and when to notify clinic. These signs include, recurring fevers without infectious etiology, drenching night sweats, chills, unintentional weight loss, early sati ety or left upper abdominal discomfort, or progressive, enlarging lymph nodes. 11. Continue follow-up with endocrine and PCP for management of diabetes mellitu s and insulin requirements. 12. Also follow-up with PCP for routine healthcare maintenance and age-appropria te screenings (last colonoscopy 2017) and vaccinations. 13. Continue follow-up with GI team regarding diabetic gastroparesis. Follow-up: RTC in 6 months or sooner should concerns develop. Patient agreed with plan of care and verbalized understanding. Questions and con cerns were addressed to patient's satisfaction. [facility] Division of Hematology and Oncology Pager [phone] documented in this encounter Plan of Treatment Order Schedule Name Type Priority Associated Diag noses Every 6 months for 2 Occurrences startin g 04/19/2020 until 04/19/2021 CBC AND DIFF Lab Routine CLL (chronic ly mphocytic leukemia) ([facility]) Every 6 months for 2 Occurrences startin g 04/19/2020 until 04/19/2021 COMPREHENSIVE METABOLIC Lab Routine CLL (c hronic lymphocytic PANEL leukemia) ([facility]) Every 6 months for 2 Occurrences startin g 04/19/2020 until 04/19/2021 LDH-LACTATE DEHYDROGENASE Lab Routine CLL (chronic lymphocytic leukemia) ([facility]) documented as of this encounter Goals Goal Patient Associated Recent Progress Patient-Stat Aut hor Goal Type Problems ed? GOAL General No Maxine Mata, RN Note: Get better documented as of this encounter Visit Diagnoses Diagnosis CLL (chronic lymphocytic leukemia) (HCC ) Chronic lymphoid leukemia, without ment ion of having achieved remission * Assessment & Plan Note - Nae Mansfield APRN-NP - 04/19/2020 1:46 PM CDT Associated Problem(s): CLL (chronic lymphocytic leukemia) (HCC) Ms. Issa Castillo is a 59 year old female with CLL, Diallo stage I with trisomy 12. She is treatment naive and continues on watchful waiting. Previous left axillary mass with small bilateral cervical nodes were not palpable on exam. Impression: 1. Chronic lymphocytic leukemia, Diallo Stage I 2. Type I diabetes with severe hyperglycemia 3. Sprained right foot with diabetic ulcers 4. Diabetic gastroparesis 5. Gastritis 6. 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 ECOG PS 1 Plan: 1. Clinically stable. Leukocytosis and lymphocytosis are only slightly increased since last visit on 10/10/19. ALC at 7,395 today on 04/16/29 compared to 6,200 at last visit. Hemoglobin and platelet counts remain normal. No evidence of lymph ocyte doubling, lymphadenopathy or organomegaly on today's exam. 2. She has persistently mildly elevated alkaline phosphatase that may be medicat ion related. Will continue to monitor. 3. Continue surveillance of CLL with H&P and labs every 6 months. 4. I reinforced prior education on signs and symptoms of progression of CLL and when to notify clinic. These signs include, recurring fevers without infectious etiology, drenching night sweats, chills, unintentional weight loss, early satie ty or left upper abdominal discomfort, or progressive, enlarging lymph nodes. 5. Continue follow-up with endocrine and PCP for management of diabetes mellitus and insulin requirements. 6. Also follow-up with PCP for routine healthcare maintenance and age-appropriat e screenings (last colonoscopy 2017) and vaccinations. 7. Continue follow-up with GI team regarding diabetic gastroparesis. Follow-up: RTC in 6 months or sooner should concerns develop. Patient agreed with plan of care and verbalized understanding. Questions and con cerns were addressed to patient's satisfaction. [facility] Landry Division of Hematology and Oncology Pager [phone] documented in this encounter
--- OUTSIDE RECORDS SUMMARY | 2020-05-13 07:27 | XMS REPORT | Encounter Summary ---
Author Author [facility] Organization [facility] Address Unknown Phone Unavailable Care Team Providers Care Python Architect Name Role Phone Charles Chau MD Unavailable Migue Patton MD PCP Rossy Leyva [phone] Unavailable Gogo Espinosa RN 2 Unavailable Reason for Visit * Reason Comments Diabetes Encounter Details Care Team Description [place] [address] [address] Type 1 diabetes, uncontrolled, with neur opathy (HCC) (Primary Dx); Hypoglycemia associated with diabetes (HCC); CLL (chronic lymphocytic leukemia) (HCC) 04/20/2020 Office Visit [facility] [address] [address] Social History Date Tobacco Use Types [...] Signs Reading Time Taken Comments Vital Sign 105/71 04/20/2020 8:57 AM CDT Blood Pressure - - Pulse 36.3 C (97.4 F) 04/20/2020 8:57 AM CDT Temperature - - Respiratory Rate - - Oxygen Saturation - - Inhaled Oxygen Concentration 62.1 kg (137 lb) 04/20/2020 8:57 AM CDT Weight 165.1 cm (5' 5") 04/20/2020 8:57 AM CDT Height 22.8 04/20/2020 8:57 AM CDT Body Mass Index documented in this encounter [...] this encounter Patient Instructions * Patient Instructions* Yumiko Long, SHAVON - 04/20/2020 9:00 AM CDT For high blood sugars before bed, please change her correction to 1 unit for ping ry 60 mg/dl over 200. If she still wakes with blood sugars below 70 the next mo rning, then change the correction to 1 unit for every 70 over 200. FallPrevention Falls often occur due to slipping, tripping or losing your balance. Millions of people fall every year and injure themselves.Here are ways to reduce your risk of falling again. Think about your fall, was there anything that caused your fall that can be f ixed, removed, or replaced? Make your home safe by keeping walkways clear of objects you may trip over, s uch as electric cords. Use non-slip pads under rugs. Don't use area rugs or small throw rugs. Use non-slip mats in bathtubs and showers. Install handrails and lights on staircases. The handrails should be on both s ides of the stairs. Don't walk in poorly lit areas. Don't stand on chairs or wobbly ladders. Use caution when reaching overhead or looking upward.This position can caus e a loss of balance. Be sure your shoes fit properly, have non-slip bottoms and are in good condit ion. Wear shoes both inside and out. Don't go barefoot or wear slippers. Be cautious when going up and down stairs, curbs, and when walking on uneven sidewalks. If your balance is poor, consider using a cane or walker. If your fall was related to alcohol use, stop or limit alcohol intake. If your fall was related to use of sleeping medicines, talk to your healthcar e provider about this.You may need to reduce your dosage at bedtime if you darius matt during the night to go to the bathroom. To reduce the need for nighttime bathroom trips: ? Don't drink fluids for several hours before going to bed ? Empty your bladder before going to bed ? Men can keep a urinal at the bedside Stay as active as you can. Balance, flexibility, strength, and endurance all come from exercise. They all play a role in preventing falls. Ask your healthcar e provider which types of activity are right for you. Get your vision checked on a regular basis. If you have pets, know where they are before you stand up or walk so you don' t trip over them. Use night lights. Go over all your medicines with a pharmacist or other healthcare provider to see if any of them could make you more likely to fall. [employer] last reviewed this educational content on 02/17/201819996635-8716 [employer]. [address] [place] [address] 7. All rights reserved. This information is not intended as a substitute for pro fessional medical care. Always follow your healthcare professional's instruction s. documented in this encounter Progress Notes * Taylor Avelar MD - 04/20/2020 9:00 AM CDT Date of Service: 04/20/2020 Subjective: Chelsea Castilol is a 59 y.o. female. History of Present Illness Obtained patient's verbal consent to treat them and their agreement to [facility] policy and NPP via this telehealth visit during the [facility] Emergency Diabetes Mellitus: The patient presents to diabetes clinic for ongoing evaluation and management of diabetes mellitus. The patient reports typical BG readings as follows: 255, 272, 380, "high" before bed for the last week. She then takes a dose of no volog for correction 1 for every 50 over 200. Fasting readings for the last week 40, 126, 72, 190, 46 No lows in the last 2 weeks She had a foot blister from her boot at last visit but is following closely with a physician closer to home for this and sees ortho for this as well. She will s ee her burrer operator again this week on . She was initially seen in the hospital by the endocrinology service for manageme nt of diabetes. She has CLL. Type: 1 Dx: Age 15 Hemoglobin A1c not obtained FSBS 126 Frequency of testing FSBS: 5-6/ day per her report Current treatment: Tresiba 12 units nightly. NovoLog 10 units with meals if eat ing the full meal, but her gives her half if she eats less. She does no t dose her own insulin. SHe is doing correction factor for 1 unit for every 50 > 180 though not consistent. Past treatment: Hyperglycemia: Prandial Hypoglycemia: Send fasting as needed above Meals per day: Varies depending on her appetite. She did not point to have cons istent mealtimes or carb amounts at her meals. CHO intake: Not limited. She does not carb count. She says she attempted this previously and recently saw the dietitian but still is not comfortable with this exercise: No Last time for diabetes education: Last visit with the dietitian: DM related hospitalizations: Yes The following questions were discussed with the following answers: Does the patient have symptoms of excessive urination, or thirst? yes Is the patient having any visual problems or ocular pain? No When was the last mud worker examination? Within the last year Has the mud worker diagnosed retinopathy? Not sure Does the patient have any foot problem such as numbness, pain, callus, rednes s, skin break down or ulceration? Yes, numbness Does the patient have any chest pain or exertional shortness of air? No Did the patient relay any additional concerns or problems for this visit? Sh e does not report concerns Complications of DM: CAD: no CVA: no PVD: no Amputations: no Retinopathy: not sure Gastropathy: no Nephropathy: no Neuropathy: yes Medications: Statin: yes TEDDY-I: no ASA: no Review of Systems A comprehensive review of systems was obtained and is negative except for the fo llowing: Tires easily, weakness, dry skin, change in hair and nails, shortness o f breath, frequent urination, numbness tingling, memory loss, trouble with anxie ty, headaches, depression, sleep problems, joint pain is stiffness, back pain, o ften feeling overwhelmed by her disease, few things make her happy. Medical History: Diagnosis Date Arthritis Chronic abdominal [...] 09/20/2018 Performed by Charles Chau MD at [facility] COLONOSCOPY N/A 09/20/2018 Performed by Charles Chau MD at [facility] ESOPHAGOGASTRODUODENOSCOPY BIOPSY 09/20/2018 Performed by Charles Chau MD at [facility] COLONOSCOPY BIOPSY 09/20/2018 Performed by Charles Chau MD at [facility] COLONOSCOPY EXCISION LESION 09/20/2018 Performed by Charles Chau MD at [facility] ESOPHAGOGASTRODUODENOSCOPY with extensive gastric biopsies, concern for lymp komal involving GI tract N/A 09/26/2018 Performed by Kymberly Us MD at [facility] ESOPHAGOGASTRODUODENOSCOPY WITH BIOPSY - FLEXIBLE 09/26/2018 Performed by Kymberly Us MD at [facility] OPEN TREATMENT TIBIAL SHAFT FRACTURE IM NAIL Left 10/14/2018 Performed by Paul Manley MD at [facility] OR ESOPHAGOGASTRODUODENOSCOPY WITH SPECIMEN COLLECTION BY BRUSHING/ WASHING N/A 02/03/2019 Performed by Gunnar Kirk MD at [facility] BREATH HYDROGEN/ METHANE TESTING - LACTULOSE N/A 06/18/2019 Performed by Gunnar Kirk MD at [facility] REMOVAL HARDWARE - DEEP - LOWER EXTREMITY Left 09/02/2019 Performed by Vinicio Pang MD at [facility] OR TREATMENT TIBIAL SHAFT FRACTURE WITH INTRAMEDULLARY IMPLANT WITH INTERLOCKIN G SCREWS Left 09/02/2019 Performed by Vinicio Pang MD at [facility] OR Family History Problem Relation Age [...] meal s. One tablet before each meal. ferrous gluconate (FERGON) 240 mg (27 mg [...] after meals. (Patient taking dif ferently: Inject under the skin three times daily with meals.) insulin degludec (TRESEBA SOLOSTAR) 100 unit/mL (3 mL) injection pen Inject 12 Units under the skin at bedtime daily. (Patient taking differently: Inject 14 Units under the skin at bedtime daily.) levothyroxine (SYNTHROID) 175 mcg tablet Take [...] 12 hours before repeating.) Miscellaneous Medical [employer] [facility] Domperidone 10 mg PO Take 1 tablet [...] generic product tiZANidine (ZANAFLEX) 4 mg tablet Take one-half tablet to one tablet by mout h three times daily as needed. Clinic visit needed before more refills. vitamins, B complex tab Take one tablet by mouth daily. zolpidem (AMBIEN) 10 mg tablet Take 10 mg by mouth at bedtime daily. Vitals: 04/20/20 0857 BP: 105/71 Temp: 36.3 C (97.4 F) Weight: 62.1 kg (137 lb) Height: 165.1 cm (65") PainSc: Two Body mass index is 22.8 kg/m. Physical Exam No physical exam due to telehealth visit Assessment and Plan: Chelsearadha Contehrhona Castillo was seen today for diabetes. Diagnoses and all orders for this visit: Type 1 diabetes, uncontrolled, with neuropathy (HCC) Hypoglycemia associated with diabetes ([facility]) - She has met with the paraeducator for education - She has met with a dietitian for carbohydrate counting - During our discussion today I still do not feel that she has a good grasp on d iabetes management. Her does most of the dosing of her insulin. Would like for her to make another attempt at carbohydrate counting, though she does n ot want to do this at this time. We will consider this for her in the future. - Continue Tresiba 12 units at night. - Changes today: For high blood sugars before bed change correction 1 unit for e very 60 mg/dL over 200. This should help to prevent lows but still control bloo d sugars overnight. - She has glucagon kit at home. - Lipid management by her primary care physician in [facility]. CLL (chronic lymphocytic leukemia) ([facility]) - She follows with hematology for this. Return to clinic in 3 months. Time 9:10-9:40 documented in this encounter Plan of Treatment Not on filedocumented as of this encounter Goals Goal Patient Associated Recent Progress Patient-Stat Aut hor Goal Type Problems ed? GOAL General No Maxine Mata RN Note: Get better documented as of this encounter Visit Diagnoses Diagnosis Type 1 diabetes, uncontrolled, with lisa ropathy (HCC) Type I (juvenile type) diabetes mellitu s with neurological manifestations, uncontrolled Hypoglycemia associated with diabetes ( HCC) Type II or unspecified type diabetes me llitus with other specified manifestations, not stated as uncontrolled CLL (chronic lymphocytic leukemia) (HCC ) Chronic lymphoid leukemia, without ment ion of having achieved remission documented in this encounter
--- OUTSIDE RECORDS SUMMARY | 2020-05-13 07:27 | XMS REPORT | Encounter Summary ---
Author Author [facility] Organization [facility] Address Unknown Phone Unavailable Care Team Providers Care Wet Process Miller Head Name Role Phone Charles Chau MD Unavailable Migue Patton MD PCP Rossy Leyva [phone] Unavailable Gogo Espinosa RN 2 Unavailable Reason for Visit * Reason Comments Medication Refill Encounter Details Care Team Description Date Type Department David Chávez MD [address] [place] [address] 04/17/2020 Refill [facility] [address] [facility] [address] [place] [address] Social History Date Tobacco Use Types Packs/Day [...] encounter Miscellaneous Notes * Telephone Encounter - Amanda Ervin RN - 04/19/2020 3:29 PM CDT Refill request for tizanidine. Patient will need to make/keep appointment prior to any further refills. Otherwise, will need to transfer rx to another provider. documented in this encounter Plan of Treatment Not on filedocumented as of this encounter Goals Goal Patient Associated Recent Progress Patient-Stat Aut hor Goal Type Problems ed? GOAL General No Maxine Mata, RN Note: Get better documented as of this encounter Visit Diagnoses Not on filedocumented in this encounter
--- OUTSIDE RECORDS SUMMARY | 2020-05-13 07:27 | XMS REPORT | Encounter Summary ---
Author Author [facility] Organization [facility] Address Unknown Phone Unavailable Care Team Providers Care Supplier Diversity Director Name Role Phone Charles Chau MD Unavailable Migue Patton MD PCP Rossy Leyva [phone] Unavailable Gogo Espinosa RN 2 Unavailable Reason for Visit * Reason Comments Follow Up Encounter Details Care Team Description Date Type Department Balbina Matamoros, RECORDS ANALYSIS MANAGER-RECORD CHANGER TESTER [address] [facility] [address] [place] [address] [phone] Gunnar Kirk MD [address] [facility] [address] [place] [address] [phone] Other chronic pancreatitis (HCC) (Primar y Dx); Gastroparesis 04/06/2020 Office Visit [facility] [address] [place] [address] Social History Date Tobacco Use [...] Signs Reading Time Taken Comments Vital Sign - - Blood Pressure - - Pulse - - Temperature - - Respiratory Rate - - Oxygen Saturation - - Inhaled Oxygen Concentration 62.1 kg (137 lb) 04/06/2020 10:12 AM CDT per pt w/boot Weight - - Height 22.8 01/28/2020 12:50 PM CDT Body Mass Index documented in this [...] * Patient Instructions* Nanette Piedra RN - 04/06/2020 10:00 AM CDT Chelsea, it was nice talking with you today. I have summarized the recommendation s made for you by Dr. Kirk today. If you have any questions please send me a message in your Cookstr or you may phone me at the number listed below. 1. Reach out to Dr. Patton & ask him to do an EKG in April for you per our request. Please have a report sent to Dr. Kirk. 2. We will get you a refill for your Domperidone. Please call Dr. Kirk's nurse at [phone] if you have any questions or conc erns. General Instructions: To have a medication refilled: Please use the Cookstr Refill request or cont act your pharmacy directly to request medication refills. Please allow 72 hours . Medical Office [facility] Lab is on the 1st floor. It is open from 7 am-6pm Sun-Sunday and 6:30am-7pm on Mondays, and 7 am - Noon on Saturdays [facility] Lab is located on the 2nd floor and is open 8 am-5 pm Sunday-Sunday [facility] lab is located next to the check out desk and is open from 8 AM to 4:45 PM Sunday through Sunday. [place] lab is located on the first floor 7-5:30 M-F, [address] [facility] [place] [facility] is on the 2nd floor of the Medical Office Building and the 2nd Floo r of [facility]. Services also available at [facility] Scheduli ng can be reached at To Schedule an office visits: Call [phone] For procedure scheduling questions at the [facility] call ; for a procedure at [facility] please call . To receive appointment reminders on your cell phone: Make sure we have your c ell phone number, and Text [facility] to [phone]. Support for many chronic illnesses is available through [facility]: [facility] or 937-750-4297. For urgent questions on nights, weekends or holidays, call the Shoe Sticks Repairer at , and ask for the doctor communication technician for Gastroenterology. Call [phone] for an y emergencies. Lab locations; Outpatient Lab Information [place] [facility] ([facility]) [address] [place] [address] 8 a.m.-5 p.m., M-F [place] ( [facility]) [address] [place] [phone] 7 a.m.-5:30 p.m. Sunday-Sunday 7:00 a.m.-12:[address] [facility] [address] [place] [address] Outpatient Lab located on 2nd floor 8 a.m.-5 p.m., M-F [facility] Medical Office Building Lab [address] [facility] [place], [place] [facility] and [facility], adjacent to [facility]. [place]ago myrick in the [place] [address] ([address]) Outpatient Lab located on 1st floor 6:30 a.m.-6:00 p.m., Mon. 7:00 a.m. 6:00 p.m., Tu.-Sun. 7:00 a.m. 12:00 p.m., Sat ? [facility] Lab Appt Only (call [phone]) [address] [place] [address], [place] [address] 8 a.m.-5 p.m., M-F ? [facility] Lab Appt Only (call [phone]) [address] [place] [address] 8 a.m.-5 p.m., M-F documented in this encounter Progress Notes * Gunnar Kirk MD - 04/06/2020 10:00 AM CDT Telehealth Visit Note Date of Service: 04/06/2020 Subjective: Obtained patient's verbal consent to treat them and [facility] via this telehealth visit during the [facility] Chelsea Castillo is a 59 y.o. female. History of Present Illness Obtained patient's verbal consent to treat them and their agreement to [facility] policy and NPP via this telehealth visit during the [facility] Follow-up visit for history of diabetic gastroparesis, has been on domperidone i n last 9 months. Interval history: While on domperidone, she did not notice any side effect, yahir es tremor, extra pyramidal movement, involuntary movement, tachycardia or arrhyt hmia. She is so happy about treatment with domperidone, she was off hospital since Jun last year. She also gained about 9 kg since August 2019. They are requesting a refill of domperidone to obtain from online pharmacy from [facility]. All side effect including history of prior medial discussed with the patient and her . She felt significantly improved regarding nausea/vomiting, abdominal pain. She is able to eat more properly and tolerated food with no nausea and vomiting. No side effect to domperidone noted. 05/07EKG,CQT: 429 Diabetes also more controlled currently. No hospital/ER visit due to gastropare sis in the last 9 months, and she is very happy about treatment with domperidone . No side effect of domperidone noted. Medical History: Diagnosis Date Arthritis Chronic abdominal [...] 09/20/2018 Performed by Charles Chau MD at [facility] COLONOSCOPY N/A 09/20/2018 Performed by Charles Chau MD at [facility] ESOPHAGOGASTRODUODENOSCOPY BIOPSY 09/20/2018 Performed by Charles Chau MD at [facility] COLONOSCOPY BIOPSY 09/20/2018 Performed by Charles Chau MD at [facility] COLONOSCOPY EXCISION LESION 09/20/2018 Performed by Charles Chau MD at [facility] ESOPHAGOGASTRODUODENOSCOPY with extensive gastric biopsies, concern for lymp komal involving GI tract N/A 09/26/2018 Performed by Kymberly Us MD at [facility] ESOPHAGOGASTRODUODENOSCOPY WITH BIOPSY - FLEXIBLE 09/26/2018 Performed by Kymberly Us MD at [facility] OPEN TREATMENT TIBIAL SHAFT FRACTURE IM NAIL Left 10/14/2018 Performed by Paul Manley MD at [facility] OR ESOPHAGOGASTRODUODENOSCOPY WITH SPECIMEN COLLECTION BY BRUSHING/ WASHING N/A 02/03/2019 Performed by Gunnar Kirk MD at [facility] BREATH HYDROGEN/ METHANE TESTING - LACTULOSE N/A 06/18/2019 Performed by Gunnar Kirk MD at [facility] REMOVAL HARDWARE - DEEP - LOWER EXTREMITY Left 09/02/2019 Performed by Vinicio Pang MD at [facility] OR TREATMENT TIBIAL SHAFT FRACTURE WITH INTRAMEDULLARY IMPLANT WITH INTERLOCKIN G SCREWS Left 09/02/2019 Performed by Vinicio Pang MD at [facility] OR Family History Problem Relation Age of [...] level: Not on file Occupational History 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 HENT: Negative. Eyes: Negative. Respiratory: Negative. Cardiovascular: Negative. Gastrointestinal: Negative. Endocrine: Negative. Genitourinary: Negative. Musculoskeletal: Negative. Skin: Negative. Allergic/Immunologic: Negative. Neurological: Negative. Hematological: Negative. Psychiatric/Behavioral: Negative. All other systems reviewed and are negative. Objective: acetaminophen (TYLENOL) 500 mg tablet Take [...] Take one capsule by mouth twice daily. enoxaparin (LOVENOX) 40 mg injection syringe Inject [...] then remove for 12 hours before repeating.) [facility] Domperidone 10 mg PO Take 1 tablet [...] eeded for Nausea or Vomiting. other medication Take one Dose by mouth three times daily. Medication Name & Strength:Domperidone Dose(how many): 10 mg Frequency(how often): by mouth three times daily. pancrelipase (CREON) 36,000-114,000- 180,000 unit capsule Take [...] mg by mouth at bedtime daily. Vitals: 04/06/20 1012 Weight: 62.1 kg (137 lb) PainSc: Four Body mass index is 22.8 kg/m. Physical Exam Vitals signs and nursing note reviewed. Constitutional: Appearance: Normal appearance. Neurological: General: No focal deficit present. Mental Status: She is alert and oriented to person, place, and time. Psychiatric: Mood and Affect: Mood normal. Behavior: Behavior normal. Assessment and Plan: Follow-up visit for history of diabetic gastroparesis in a 59 years old female, with history of uncontrolled diabetes, diabetic gastroparesisand complex past medical history,several admissions in hospital, due to significant nausea/vomi ting, and poor p.o. tolerance. On domperidone 10 mg p.o. 3 times daily,obtained from online pharmacy in [facility]. Again, all side effect of domperidone, not FDA approved, not available in [facility], discussed with the patient and her . Potential side effect i.e. extraparametal side effect, tardive dyskinesia, invol untary movement, discussed in detail with patient and her . QT prolongation also discussed with the patient. Baseline EKG no QT prolongation.Will continue to obtain EKG and CM today and every 3 months and monitor QT interval. No baseline arrhythmia noted in recent EKG. Written prescription for domperidone 10 mg p.o. 3 times daily, 3-month supply, virgilio guallpa to the patient (500 tablet per patient's request). Repeat EKG, for QT interval prolongation evaluation ordered for next month. Re pancreatic MRI reviewed as Unchanged mild nonspecific pancreatic atrophy. The pancreas is otherwise unremarkable. No abdominopelvic lymphadenopathy or ascite s. Follow-up clinically. Discussed not taking unnecessary antibiotic. Follow-up in GI clinic/telehealth in 6 months. Plan of care discussed in detail with patient, and her , they both verbal ized understanding and agreed. Thank you very much for the consult, and for allowing me to participate in this patient's care. This note was in part completed with [employer], a voice recognition software. Some grammatical errors may have occurred. If you have concerns,please contact my o ffice for clarification. Total time 25 minutes. documented in this encounter Plan of Treatment Not on filedocumented as of this encounter Goals Goal Patient Associated Recent Progress Patient-Stat Aut hor Goal Type Problems ed? GOAL General No Maxine Mata, RN Note: Get better documented as of this encounter Visit Diagnoses Diagnosis Other chronic pancreatitis (HCC) Gastroparesis documented in this encounter
--- OUTSIDE RECORDS SUMMARY | 2020-05-13 07:27 | XMS REPORT | Encounter Summary ---
Author Author [facility] Organization [facility] Address Unknown Phone Unavailable Care Team Providers Care Card Feeder Name Role Phone Charles Chau MD Unavailable Migue Patton MD PCP Rossy Leyva [phone] Unavailable Gogo Espinosa RN 2 Unavailable Reason for Visit * Reason Comments Pain stomach issues and Dr Chávez Rx meds and had to follow up Pain Abdomen Encounter Details Care Team Description Date Type Department Lovely Wilson, ALLISON [address] [facility] Sonny Barnes MD [facility] [place], [place] [id number] Pain of upper abdomen (Primary Dx); Neuropathic pain 04/30/2020 [facility] [address] [id number] Social History Date Tobacco Use Types Packs/Day [...] (97.6 F) 04/30/2020 9:03 AM CDT Temperature - - Respiratory Rate - - Oxygen Saturation - - Inhaled Oxygen Concentration 61.2 kg (135 lb) 04/30/2020 9:03 AM CDT Weight 165.1 cm (5' 5") 04/30/2020 9:03 AM CDT Height 22.47 04/30/2020 9:03 AM CDT Body Mass Index documented in [...] impairment: No documented as of this encounter Progress Notes * Lovely Wilson APRN - 04/30/2020 9:00 AM CDT Obtained patient's verbal consent to treat them and their agreement to [facility] policy and NPP via this telehealth visit during the [facility] - Interventional Pain Subjective Chief Complaint: abdominal pain Interval HPI: Chelsea Castillo is a 60 y.o. female who has a past medical history of Arthritis, Chronic abdominal pain, Cyclic vomiting syndrome, Diabetes mellitus type 1 (HCC), Orthostatic hypotension, Osteoporosis, Stomach problems, and Thyroid disorder. who now presents for evaluation. Patient reports about 50% relief TAP block performed on 07/04/2020. Patient repor ts she received moderate relief for several months. Patient is unsure if she is still getting some relief at this point in time or whether her current medicatio n regimen is providing most of the relief. Patient states since the nerve block and neuropathic medications, her pain is no w less frequent and less severe. Patient states she is relatively happy with cur rent level of relief. The pain is in the mid upper abdomen, localized Pain is intermittent, occurs between a couple times a week Typically lasts a few hours Denies radiating pain Numbness/tingling: none The pain ranges 0-6/10 The pain is described as stabbing No known triggers The pain is partially alleviated by rest, prescribed medications +muscle stiffness/tightness Denies weakness or strength loss in BUE/BLE Currently taking Nortriptyline 75mg qhs and Tizanidine 4mg qhs, which provides s ignificant relief. Denies any SEs from medication use. Hx of spine surgery: none No hx of abdominal surgery Patient denies fevers, chills, infection, bleeding issues, anticoagulants, new m uscle weakness, numbness, tingling, bowel/bladder incontinence, or saddle anesth esia. INITIAL HPI: 59 year old female with PMH of middle back and mid-upper abdominal deep stabbing pain associated with cyclic vomiting. No associated instigating factors. Has had progressively less appetite and weight loss along with smaller food amount leslee erance over the past few years associated with this. She now eats 6 small meals per day. No change in bowel movements noted over past several years. Ineffective treatment with oral medications as listed below and abdominal trigger point inj ections. The pain is in the and mid upper abdomen The pain averages 6-8/10 PRIOR MEDICATIONS: Effective IV Fentanyl for rescue in ED setting Ineffective Gabapentin Lyrica Lidocaine 5% patch to upper abdomen Acetaminophen Unable to tolerate NSAID secondary to history of GI bleed Never Ami/Nortriptyline Cymbalta PRIOR INTERVENTIONS: Effective None Ineffective Abdominal Trigger Point Injections x 2 Chelsea Castillo denies any recent fevers, chills, infection, antibiotics, bowel or bladder incontinence, saddle anesthesia, bleeding issues, or recent an ticoagulant. ROS: All 14 systems reviewed and found to be negative except as above and as fol lows. +abdominal pain, nausea, vomiting. Past Medical History: Medical History: Diagnosis Date Arthritis Chronic abdominal pain Cyclic vomiting syndrome Diabetes mellitus type 1 (HCC) Orthostatic hypotension Osteoporosis Stomach problems Thyroid disorder Family History: Family History Problem Relation Age of Onset GI Cancer Mother Cancer-Breast Maternal Grandmother Celiac Disease Neg Hx Cancer-Colon Neg Hx Colon Polyps Neg Hx Inflammatory Bowel Disease Neg Hx Rectal Cancer Neg Hx Ulcerative Colitis Neg Hx Social History: Lives in [facility] [id number] Social History Socioeconomic History Marital status: Spouse [...] file Social History Narrative Not on file Allergies: Allergies Allergen Reactions Reglan [Metoclopramide] DYSTONIA Mouth dystonia Sulfa (Sulfonamide Antibiotics) HIVES Medications: Current Outpatient Medications: acetaminophen (TYLENOL) 500 mg tablet, Take one tablet by mouth every 6 minal rs as needed for Pain. Max of 4,000 mg of acetaminophen in 24 hours., Disp: , Rf l: 0 ALPRAZolam (XANAX) 1 mg tablet, Take 1 mg by mouth every 8 hours as needed for Anxiety., Disp: , Rfl: atorvastatin (LIPITOR) 40 mg tablet, Take 40 mg by mouth at bedtime daily., Disp: , Rfl: carBAMazepine XR(+) (TEGRETOL XR) 200 mg tablet, Take 200 mg by mouth twice daily., Disp: , Rfl: cephalexin (KEFLEX) 500 mg capsule, Take one capsule by mouth four times da дмитрий., Disp: 40 capsule, Rfl: 0 cetirizine (ZYRTEC) 10 mg tablet, Take 10 mg by mouth every morning., Disp: , Rfl: cholecalciferol(+) (VITAMIN D-3) 5,000 unit tablet, Take 5,000 Units by esther th daily., Disp: , Rfl: coenzyme Q10(+) 100 mg cap, Take one capsule by mouth twice daily., Disp: 6 0 capsule, Rfl: 1 dicyclomine (BENTYL) 10 mg capsule, Take 10 mg by mouth before meals and at bedtime., Disp: , Rfl: docusate (COLACE) 100 mg capsule, Take one capsule by mouth twice daily., D isp: 60 capsule, Rfl: 0 DOMPERIDONE (BULK) MISC, Use 1 tablet as directed three times daily with me als. One tablet before each meal., Disp: , Rfl: ferrous gluconate (FERGON) 240 mg (27 mg iron) tablet, Take 240 mg by mouth daily., Disp: , Rfl: fesoterodine ER(+) (TOVIAZ) 4 mg tablet, Take 4 mg by mouth daily., Disp: , Rfl: fludrocortisone (FLORINEF) 0.1 mg tablet, Take one tablet by mouth daily., Disp: , Rfl: fluticasone (FLONASE) 50 mcg/actuation nasal spray, Apply 1 spray to each n ostril as directed daily as needed. Shake bottle gently before using. , Disp: , Rfl: glucagon (human recombinant) 1 mg/1 mL, Inject 1 mL into the muscle as Need ed. Indications: low blood sugar, Disp: 1 each, Rfl: 0 insulin aspart U-100 (NOVOLOG FLEXPEN) 100 unit/mL (3 mL) injection PEN, In ject three Units under the skin three times daily after meals. (Patient taking d ifferently: Inject under the skin three times daily with meals.), Disp: 15 mL, Rfl: 3 insulin degludec (TRESEBA SOLOSTAR) 100 unit/mL (3 mL) injection pen, Injec t 12 Units under the skin at bedtime daily. (Patient taking differently: Inject 14 Units under the skin at bedtime daily.), Disp: 9 mL, Rfl: levothyroxine (SYNTHROID) 175 mcg tablet, Take 175 mcg by mouth daily 30 mi nutes before breakfast., Disp: , Rfl: lidocaine (LIDODERM) 5 % topical patch, Apply one patch topically to affect ed area daily. Apply patch for 12 hours, then remove for 12 hours before repeati ng. (Patient taking differently: Apply 1 patch topically to affected area daily as needed. Apply patch for 12 hours, then remove for 12 hours before repeating.) , Disp: 30 patch, Rfl: 1 Miscellaneous Medical Supply misc, Domperidone 10 mg PO Take 1 tablet 3 eliud es daily., Disp: 540 each, Rfl: 0 montelukast (SINGULAIR) 10 mg tablet, Take 10 mg by mouth at bedtime daily. , Disp: , Rfl: nortriptyline (PAMELOR) 25 mg capsule, Take three capsules by mouth at bedt krishan daily., Disp: 90 capsule, Rfl: 3 onabotulinumtoxinA (BOTOX IJ), Inject to area(s) as directed. Every 3 keith hs for headaches., Disp: , Rfl: ondansetron (ZOFRAN) 4 mg tablet, Take one tablet by mouth every 6 hours as needed for Nausea or Vomiting., Disp: 90 tablet, Rfl: 2 other medication, Domperidone 10 mg three times a day orally., Disp: 540 e ach, Rfl: 0 pancrelipase (CREON) 36,000-114,000- 180,000 unit capsule, Take two capsule s by mouth three times daily with meals AND one capsule with snacks., Disp: 720 capsule, Rfl: [address] (PROTONIX) 40 mg tablet, Take 40 mg by mouth daily., Disp: , Rfl: potassium chloride SR (K-DUR) 10 mEq tablet, Take 10 mEq by mouth daily. Ta ke with a meal and a full glass of water., Disp: , Rfl: pregabalin (LYRICA) 150 mg capsule, Take 150 mg by mouth twice daily., Disp : , Rfl: rizatriptan (MAXALT) 10 mg tablet, Take 10 mg by mouth once as needed for H eadache. May repeat in 2 hours if needed, Disp: , Rfl: scopolamine (TRANSDERM-SCOP) 1.5 mg 3 day patch, Apply one patch to top of skin as directed every 72 hours. Please provide generic product, Disp: 10 patch, Rfl: 1 tiZANidine (ZANAFLEX) 4 mg tablet, Take one-half tablet to one tablet by [facility] three times daily as needed. Clinic visit needed before more refills., Disp: 180 tablet, Rfl: 0 vitamins, B complex tab, Take one tablet by mouth daily., Disp: 30 tablet, Rfl: 1 zolpidem (AMBIEN) 10 mg tablet, Take 10 mg by mouth at bedtime daily., Disp : , Rfl: Physical examination: BP 113/73 | Pulse 91 | Temp 36.4 C (97.6 F) (Oral) | Ht 165.1 cm (65") | Wt 61.2 kg (135 lb) | LMP (LMP Unknown) | BMI 22.47 kg/m Pain Score: Four Female Opioid Risk Score: 1 (05/30/2019 11:00 AM) Opioid Risk Category: Low Risk (05/30/2019 11:00 AM) General: The patient is a well-developed, well nourished 60 y.o. female in no ac danny distress. HEENT: Head is normocephalic and atraumatic. Pupils are equal and reactive to li ght bilaterally. Cardiac: Based on palpation, pulse appears to be regular rate and rhythm. Pulmonary: The patient has unlabored respirations and bilateral symmetric chest excursion. Abdomen: Mild tenderness to light palpation, mild distention yet soft per patien t assessment. There is no rebound or guarding. Extremities: No clubbing, cyanosis, or edema. Neurologic: The patient is alert and oriented times 3. Cranial nerves II through XII are intact without any focal deficits. Musculoskeletal: Gait is normal. CT Abdomen Pelvis 04/14/2019 "CT abdomen and pelvis Clinical Indication: Abdominal pain, gastroparesis, vomiting Technique: Multiple contiguous helical axial imaging was performed through the abdomen and pelvis during and after the uneventful administration of IV contrast. Sagittal and coronal reformations were rendered utilizing postprocessing of the axial image data set area Comparison: October 11, [address] abdomen findings: The lung bases are clear. There is no pleural pericardial effusion. Prior cholecystectomy is noted. Again is mildly elongated Vicky's lobe. Spleen is grossly unremarkable. There is mild diffuse pancreatic atrophy. Adrenal glands grossly unremarkable. Kidneys are normal in size of hydronephrosis. The abdominal aorta is normal in caliber with no retroperitoneal adenopathy. There is no upper abdominal ascites. Lumbar spine is intact. CT pelvis findings: Urinary bladder is grossly unremarkable. The uterus is absent. The large and small bowel appear grossly unremarkable with no bowel obstruction or inflammatory bowel segment. The appendix is not discretely visualized. No ascites. Increased number of normal-sized and mildly enlarged iliac and inguinal lymph nodes are again seen and similar to prior study, likely reactive. IMPRESSION No acute or inflammatory process identified in the abdomen or pelvis. No ascites. Prior cholecystectomy. Stable reactive iliac and inguinal Adenopathy." Last Cr and LFT's: Creatinine Date Value Ref Range Status 01/28/2020 1.01 (H) 0.4 - 1.00 MG/DL Final AST (SGOT) Date Value Ref Range Status 01/28/2020 19 7 - 40 U/L Final ALT (SGPT) Date Value Ref Range Status 01/28/2020 20 7 - 56 U/L Final Alk Phosphatase Date Value Ref Range Status 01/28/2020 145 (H) 25 - 110 U/L Final Total Bilirubin Date Value Ref Range Status 01/28/2020 0.3 0.3 - 1.2 MG/DL Final Assessment: Chelsea Castillo is a 60 y.o. female who has a past medical history of Ar thritis, Chronic abdominal pain, Cyclic vomiting syndrome, Diabetes mellitus typ e 1 (HCC), Orthostatic hypotension, Osteoporosis, Stomach problems, and Thyroid disorder. who presents for evaluation of pain. The pain complaints are most likely due to: 1. Pain of upper abdomen 2. Neuropathic pain Patient has had an adequate trial of > 1 year of rest, exercise, multimodal treatment, and the passage of time without improvement of symptoms. The pain has significant impact on the daily quality of life. Plan: 1. Discussed plan of care options with patient. Okay to repeat bilateral TAP blo ck with U/S in clinic at patient convenience. 2. Continue Nortriptyline and Tizanidine as prescribed. 3. Follow-up in 6 months. Risks/benefits of all pharmacologic and interventional treatments discussed and questions answered. Todays visit took place via [id number] encounter utilizing Zoom application. V isit Start Time 904 Visit End Time 925. Today's visit was prolonged due to ad ditional time spent pharmacological interventions/side effects. documented in this encounter Plan of Treatment Not on filedocumented as of this encounter Goals Goal Patient Associated Recent Progress Patient-Stat Aut hor Goal Type Problems ed? GOAL General No Maxine Mata, RN Note: Get better documented as of this encounter Visit Diagnoses Diagnosis Pain of upper abdomen Abdominal pain, other specified site Neuropathic pain Neuralgia, neuritis, and radiculitis, u nspecified documented in this encounter
--- OUTSIDE RECORDS SUMMARY | 2020-05-13 07:27 | XMS REPORT | Encounter Summary ---
Author Author [facility] Organization [facility] Address Unknown Phone Unavailable Care Team Providers Care Captain Cannery Tender Name Role Phone Charles Chau MD Unavailable Migue Patton MD PCP Rossy Leyva [phone] Unavailable Gogo Espinosa RN 2 Unavailable Reason for Visit * Reason Comments Paperwork [facility] order Encounter Details Care Team Description [place] [address] [place] [id number] Paperwork ([facility] or rossana) 02/10/2020 Telephone [facility] [address] [place] [id number] Social History Date Tobacco Use Types [...] Telephone Encounter - Yumiko Long RN - 02/11/2020 4:20 PM CDT [facility] Orders reviewed/signed/faxed Fax confirmation received 02/11/20 @ 1432 pm Original to PRR to scan to chart Closing encounter * Telephone Encounter - Yumiko Long RN - 02/10/2020 4:45 PM CDT Received faxed [facility] Orders from [facility] Printed recent clinic notes, demographics, and meter download Form completed, placed in Dr. Avelar's folder for review/signing documented in this encounter Plan of Treatment Not on filedocumented as of this encounter Goals Goal Patient Associated Recent Progress Patient-Stat Aut hor Goal Type Problems ed? GOAL General No Maxine Mata, RN Note: Get better documented as of this encounter Visit Diagnoses Not on filedocumented in this encounter
--- OUTSIDE RECORDS SUMMARY | 2020-05-13 07:27 | XMS REPORT | Encounter Summary ---
Author Author [facility] Organization [facility] Address Unknown Phone Unavailable Care Team Providers Care Guitar Player Name Role Phone Charles Chau MD Unavailable Migue Patton MD PCP Rossy Leyva [phone] Unavailable Gogo Espinosa RN 2 Unavailable Reason for Visit * Reason Comments Paperwork [facility] Encounter Details Care Team Description [place] [address] [address] [phone] Paperwork ([facility]) 03/23/2020 Telephone The [facility] [address] [facility] Level [address] [place] [address] Social History Date Tobacco Use Types Packs/Day [...] Telephone Encounter - Yumiko Long RN - 03/23/2020 1:41 PM CDT Received the 4th fax from [facility] for pt's DexCom and supplies Called # on form, , spoke to guest services representative and discussed why this paperwork continues to be faxed when all information has been sent as requested Referral Management Liaison has informed me, that they could not accept current form sent 02/[address] Johnson's name, in place of Dr. Avelar Form sent on 02/10/20 could not be accepted with clinic notes from Nurse Only vis it 01/28/20. And the clinic notes sent for last clinic visit with Dr. Avelar 06/24/19, were too o ld for Medicare guidelines. Patient must have current visit from provider within 6 months. Referral Management Liaison verbalized he will call pt and explain. Dexcom supplies may have to wait till after pt's visit in April with Dr. Avelar Closing encounter documented in this encounter Plan of Treatment Not on filedocumented as of this encounter Goals Goal Patient Associated Recent Progress Patient-Stat Aut hor Goal Type Problems ed? GOAL General No Maxine Mata, RN Note: Get better documented as of this encounter Visit Diagnoses Not on filedocumented in this encounter
--- OUTSIDE RECORDS SUMMARY | 2020-05-13 07:27 | XMS REPORT | Encounter Summary ---
Author Author [facility] Organization [facility] Address Unknown Phone Unavailable Care Team Providers Care Supervisor Knitting Name Role Phone Charles Chau MD Unavailable Migue Patton MD PCP Rossy Leyva [phone] Unavailable Gogo Espinosa RN 2 Unavailable Reason for Visit * Reason Comments Paperwork DexCom Clinic note request Encounter Details Care Team Description [place] [address] [address] [phone] Paperwork (DexCom Clinic note request) 02/26/2020 Telephone [facility] [address] [facility] [address] [place] [address] Social History Date Tobacco Use Types Packs/Day [...] Telephone Encounter - Yumiko Long RN - 02/26/2020 3:59 PM CDT Received call from Katrin rodriguez/Romero, requesting last clinic notes from Dr. Avelar be faxed Clinic note from 06/24/2019 faxed at this time Fax confirmation received 02/26/20 @ 1220 pm Closing encounter documented in this encounter Plan of Treatment Not on filedocumented as of this encounter Goals Goal Patient Associated Recent Progress Patient-Stat Aut hor Goal Type Problems ed? GOAL General No Maxine Mata, RN Note: Get better documented as of this encounter Visit Diagnoses Not on filedocumented in this encounter
--- OUTSIDE RECORDS SUMMARY | 2020-05-13 07:27 | XMS REPORT | Encounter Summary ---
Author Author [facility] Organization [facility] Address Unknown Phone Unavailable Care Team Providers Care Gas Singer Name Role Phone Charles Chau MD Unavailable Migue Patton MD PCP Rossy Leyva [phone] Unavailable Gogo Espinosa RN 2 Unavailable Reason for Visit * Reason Comments Paperwork [facility] Encounter Details Care Team Description [place] [address] [address] [phone] Paperwork ([facility]) 04/21/[address] [facility] [address] [facility] [address] [place] [address] Social History Date Tobacco Use [...] Telephone Encounter - Yumiko Long RN - 04/21/2020 4:08 PM CDT Attempted to contact [facility] to initiate Dexcom order for pt. Was unable to reach senior outside sales representative and hold for 15 minutes. Previous paperwork sent in January and February were not accepted as pt had not seen Dr. Avelar since June 2019 Will call at later time documented in this encounter Plan of Treatment Not on filedocumented as of this encounter Goals Goal Patient Associated Recent Progress Patient-Stat Aut hor Goal Type Problems ed? GOAL General No Maxine Mata, RN Note: Get better documented as of this encounter Visit Diagnoses Not on filedocumented in this encounter
--- OUTSIDE RECORDS SUMMARY | 2020-05-13 07:28 | XMS REPORT | Encounter Summary ---
Author Author [facility] Organization [facility] Address Unknown Phone Unavailable Care Team Providers Care Stucco Plasterer Name Role Phone Charles Chau MD Unavailable Migue Patton MD PCP Rossy Leyva [phone] Unavailable Gogo Espinosa RN 2 Unavailable Reason for Referral * Consult, Test & Treat (Urgent) Referred By Contact Referred To Contact Status Reason Specialty Diagnoses / Procedures Demetrio Barboza DO [address] [place] [address] New Request Procedures F/U APPOINTMENT REQUEST: CARDIOLOGY LOW RISK Reason for Visit * Reason Comments Wound Infection Sent by wound doctor in for blister; blister popped up a week after she broke her ankle; blister opened between Sunday and today. Encounter Details Care Team Description Date Type Department Demetrio Barboza DO [address] [place] [address] 01/28/2020 Emergency [facility] [address] [place], [place] [id number] Social History Date Tobacco Use Types Packs/Day Years Used Never Smoker Smokeless Tobacco: Never Used Drinks/Week oz/Week Comments Alcohol Use No Sex Assigned at Date Recorded Not on file Industry Job Start Date Occupation Not on file Not on file Not on file Travel End Travel History Travel Start No recent travel history available. documented as of this encounter Last Filed Vital Signs Reading Time Taken Comments Vital Sign 108/76 01/28/2020 5:00 PM CDT Blood Pressure 89 01/28/2020 5:00 PM CDT Pulse 37 C (98.6 F) 01/28/2020 1:20 PM CDT Temperature - - Respiratory Rate 96% 01/28/2020 5:00 PM CDT Oxygen Saturation - - Inhaled Oxygen Concentration 61.2 kg (135 lb) 01/28/2020 12:50 PM CDT Weight 165.1 cm (5' 5") 01/28/2020 12:50 PM CDT Height 22.47 01/28/2020 12:50 PM CDT Body Mass Index [...] impairment: No documented as of this encounter Discharge Instructions * Instructions* Leti Maradiaga MD - 01/28/2020 Please take the prescribed Keflex to treat your skin infection. You should also be receiving a call from the cardiology department at to schedule a stress t est within the next upcoming weeks for further evaluation of your chest pain. I f you do not receive a call from them, you can call them at the number provided to schedule this appointment. Please return to the emergency department if you develop worsening redness, warmth, pain at the site of the lesion at the bottom of your foot, or if you have any other worsening or concerning symptoms. * Attachments The following attachments cannot be sent through Care Everywhere.* Chest Pain, Uncertain Cause (AMHARIC) documented in this encounter Medications at Time of Discharge Start Date End Date Medication Sig Dispensed Refills 04/18/2019 acetaminophen (TYLENOL) Take one 0 500 mg tablet tablet by mouth every 6 hours as needed for Pain. Max of 4,000 mg of acetaminophen in 24 hours. ALPRAZolam (XANAX) 1 mg Take 1 mg by 0 tablet mouth every 8 hours as needed for Anxiety. atorvastatin (LIPITOR) 40 Take 40 mg by 0 mg tablet mouth at bedtime daily. carBAMazepine XR(+) Take 200 mg 0 (TEGRETOL XR) 200 mg by mouth tablet twice daily. 01/28/2020 cephalexin (KEFLEX) 500 Take one 40 capsule 0 mg capsule capsule by mouth four times daily. cetirizine (ZYRTEC) 10 mg Take 10 mg by 0 tablet mouth every morning. cholecalciferol(+) Take 5,000 0 (VITAMIN D-3) 5,000 unit Units by tablet mouth daily. 07/22/2018 coenzyme Q10(+) 100 mg Take one 60 capsule 1 cap capsule by mouth twice daily. dicyclomine (BENTYL) 10 Take 10 mg by 0 mg capsule mouth before meals and at bedtime. 09/04/2019 docusate (COLACE) 100 mg Take one 60 capsule 0 capsule capsule by mouth twice daily. ferrous gluconate Take 240 mg 0 (FERGON) 240 mg (27 mg by mouth iron) tablet daily. fesoterodine ER(+) Take 4 mg by 0 (TOVIAZ) 4 mg tablet mouth daily. 04/18/2019 fludrocortisone Take one 0 (FLORINEF) 0.1 mg tablet tablet by mouth daily. fluticasone (FLONASE) 50 Apply 1 spray 0 mcg/actuation nasal spray to each nostril as directed daily as needed. Shake bottle gently before using. 04/18/2019 glucagon (human Inject 1 mL 1 each 0 recombinant) 1 mg/1 into the mLIndications: muscle as hypoglycemic disorder Needed. Indications: low blood sugar 04/18/2019 insulin aspart U-100 Inject three 15 mL 3 (NOVOLOG FLEXPEN) 100 Units under unit/mL (3 mL) injection the skin PEN three times daily after meals. 04/18/2019 insulin degludec (TRESEBA Inject 12 9 mL 0 SOLOSTAR) 100 unit/mL (3 Units under mL) injection pen the skin at bedtime daily. levothyroxine (SYNTHROID) Take 175 mcg 0 175 mcg tablet by mouth daily 30 minutes before breakfast. 05/07/2019 lidocaine (LIDODERM) 5 % Apply one 30 patch 1 topical patch patch topically to affected area daily. Apply patch for 12 hours, then remove for 12 hours before repeating. 01/07/2020 Miscellaneous Medical Domperidone 540 each 0 Supply misc 10 mg PO Take 1 tablet 3 times daily. montelukast (SINGULAIR) Take 10 mg by 0 10 mg tablet mouth at bedtime daily. onabotulinumtoxinA (BOTOX Inject to 0 IJ) area(s) as directed. Every 3 months for headaches. 06/02/2019 ondansetron (ZOFRAN) 4 mg Take one 90 tablet 2 tablet tablet by mouth every 6 hours as needed for Nausea or Vomiting. 06/02/2019 pancrelipase (CREON) Take two 720 capsule 2 36,000-114,000- 180,000 capsules by unit capsule mouth three times daily with meals AND one capsule with snacks. pantoprazole DR Take 40 mg by 0 (PROTONIX) 40 mg tablet mouth daily. potassium chloride SR Take 10 mEq 0 (K-DUR) 10 mEq tablet by mouth daily. Take with a meal and a full glass of water. pregabalin (LYRICA) 150 Take 150 mg 0 mg capsule by mouth twice daily. rizatriptan (MAXALT) 10 Take 10 mg by 0 mg tablet mouth once as needed for Headache. May repeat in 2 hours if needed 02/14/2019 scopolamine Apply one 10 patch 1 (TRANSDERM-SCOP) 1.5 mg 3 patch to top day patch of skin as directed every 72 hours. Please provide generic product 07/22/2018 vitamins, B complex tab Take one 30 tablet 1 tablet by mouth daily. zolpidem (AMBIEN) 10 mg Take 10 mg by 0 tablet mouth at bedtime daily. 09/04/2019 04/20/2020 enoxaparin (LOVENOX) 40 Inject 0.4 mL 14 each 0 mg injection syringe under the skin daily. 05/30/2019 05/02/2020 nortriptyline (PAMELOR) Take three 90 capsule 3 25 mg capsule capsules by mouth at bedtime daily. 09/18/2019 04/06/2020 other medication Take one Dose 90 each 3 by mouth three times daily. Medication Name & Strength:Domp eridone Dose(how many): 10 mg Frequency(how often): by mouth three times daily. 12/16/2019 04/19/2020 tiZANidine (ZANAFLEX) 4 TAKE 1 TO 2 180 tablet 3 mg tablet TABLETS BY MOUTH THREE TIMES DAILY NEEDED documented as of this encounter ED Notes * Gogo Oviedo RN - 01/28/2020 5:55 PM CDT Pt is A&Ox4, pt presented with discharge Rx & instructions. Pt stated understanding and denied any further questions. Pt ambulated in room and dressed without difficulty. * Gogo Oviedo RN - 01/28/2020 3:26 PM CDT Pt's port not power port, IV therapy consulted for access. Pt tearful, georgesin g fear of unsuccessful IV attempts. This RN educated Pt that there are other met hods to obtain blood until port is accessed such as an arterial stick. Pt agreea ble, but still fearful. Pt thanking this RN after blood was obtained via art sti ck, stating she is use having multiple PIV attempts with no success. * Gogo Oviedo RN - 01/28/2020 1:54 PM CDT Pt ambulates to bathroom with smooth and steady gait * Demetrio Barboza DO - 01/28/2020 1:38 PM CDT Chelsea Castillo is a 59 y.o. female. Chief Complaint: Chief Complaint Patient presents with Wound Infection Sent by wound doctor in for blister; blister popped up a week after she broke her ankle; blister opened between Sunday and today. History of Present Illness: Chelsea Castillo is a 59 y.o. female, with a history of DM type 1, gastrop aresis, HLD, hypothyroidism who presents to the emergency department for a wound check and chest pain. Patient reports she was seen in clinic today for a wound on right right ankle and was advised to ED for possible infection given patient has had elevated blood sugars recently. Patient denies any fever, but states her foot sometimes feels hot. She has been fatigued for the last several days. Othe rwise denies any recent cough. She also complains of nausea and severe central c hest pain 2 days ago while she was lying in bed. She has not had the pain since, but has some residual discomfort. She denies any SOA, new leg swelling, or other symptoms. She denies any tobacco use, but reports her mother and grandmother had heart attacks in their 40s. She reports her last stress test was a little over a year ago and states she was told it was normal. 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 Negative for chills and fever. HENT: Negative for congestion, rhinorrhea and sore throat. Eyes: Negative for visual disturbance. Respiratory: Negative for cough and shortness of breath. Cardiovascular: Positive for chest pain. Negative for leg swelling. Gastrointestinal: Positive for nausea. Negative for abdominal pain, constipation , diarrhea and vomiting. Endocrine: Negative for polyuria. Genitourinary: Negative for dysuria. Musculoskeletal: Positive for arthralgias. Negative for back pain and neck pain. Skin: Positive for wound. Negative for rash. Neurological: Negative for weakness, light-headedness, numbness and headaches. Psychiatric/Behavioral: Negative for agitation. Allergies: Reglan [metoclopramide] and Sulfa (sulfonamide antibiotics) Past Medical History: Medical History: Diagnosis Date Arthritis Chronic abdominal pain Cyclic vomiting syndrome Diabetes mellitus type 1 (HCC) Orthostatic hypotension Osteoporosis Stomach problems Thyroid disorder Past Surgical History: Surgical History: Procedure Laterality Date GALLBLADDER SURGERY 1989 HX HYSTERECTOMY 12/2001 EYE SURGERY 07/2005 laser eye rietina, eyes were bleeding behind them. CARPAL TUNNEL RELEASE Right 08/2012 right hand HAND SURGERY 09/2013 HERNIA REPAIR 03/2014 ESOPHAGUS SURGERY 03/2014 Esophageal ulcers and healing ESOPHAGOGASTRODUODENOSCOPY N/A 09/20/2018 Performed by Charles Chau MD at ENDO/GI COLONOSCOPY N/A 09/20/2018 Performed by Charles Chau MD at ENDO/GI ESOPHAGOGASTRODUODENOSCOPY BIOPSY 09/20/2018 Performed by Charles Chau MD at ENDO/GI COLONOSCOPY BIOPSY 09/20/2018 Performed by Charles Chau MD at ENDO/GI COLONOSCOPY EXCISION LESION 09/20/2018 Performed by Charles Chau MD at ENDO/GI ESOPHAGOGASTRODUODENOSCOPY with extensive gastric biopsies, concern for lymp komal involving GI tract N/A 09/26/2018 Performed by Kymberly Us MD at ENDO/GI ESOPHAGOGASTRODUODENOSCOPY WITH BIOPSY - FLEXIBLE 09/26/2018 Performed by Kymberly Us MD at ENDO/GI OPEN TREATMENT TIBIAL SHAFT FRACTURE IM NAIL Left 10/14/2018 Performed by Paul Manley MD at Main OR/Periop ESOPHAGOGASTRODUODENOSCOPY WITH SPECIMEN COLLECTION BY BRUSHING/ WASHING N/A 02/03/2019 Performed by Gunnar Kirk MD at ENDO/GI BREATH HYDROGEN/ METHANE TESTING - LACTULOSE N/A 06/18/2019 Performed by Gunnar Kirk MD at ENDO/GI REMOVAL HARDWARE - DEEP - LOWER EXTREMITY Left 09/02/2019 Performed by Vinicio Pang MD at Main OR/Periop TREATMENT TIBIAL SHAFT FRACTURE WITH INTRAMEDULLARY IMPLANT WITH INTERLOCKIN G SCREWS Left 09/02/2019 Performed by Vinicio Pang MD at Main OR/Periop Pertinent medical/surgical history reviewed Medical History: Diagnosis Date Arthritis Chronic abdominal [...] 09/20/2018 Performed by Charles Chau MD at ENDO/GI COLONOSCOPY N/A 09/20/2018 Performed by Charles Chau MD at ENDO/GI ESOPHAGOGASTRODUODENOSCOPY BIOPSY 09/20/2018 Performed by Charles Chau MD at ENDO/GI COLONOSCOPY BIOPSY 09/20/2018 Performed by Charles Chau MD at ENDO/GI COLONOSCOPY EXCISION LESION 09/20/2018 Performed by Charles Chau MD at ENDO/GI ESOPHAGOGASTRODUODENOSCOPY with extensive gastric biopsies, concern for lymp komal involving GI tract N/A 09/26/2018 Performed by Kymberly Us MD at ENDO/GI ESOPHAGOGASTRODUODENOSCOPY WITH BIOPSY - FLEXIBLE 09/26/2018 Performed by Kymberly Us MD at ENDO/GI OPEN TREATMENT TIBIAL SHAFT FRACTURE IM NAIL Left 10/14/2018 Performed by Paul Manley MD at Main OR/Periop ESOPHAGOGASTRODUODENOSCOPY WITH SPECIMEN COLLECTION BY BRUSHING/ WASHING N/A 02/03/2019 Performed by Gunnar Kirk MD at ENDO/GI BREATH HYDROGEN/ METHANE TESTING - LACTULOSE N/A 06/18/2019 Performed by Gunnar Kirk MD at ENDO/GI REMOVAL HARDWARE - DEEP - LOWER EXTREMITY Left 09/02/2019 Performed by Vinicio Pang MD at Main OR/Periop TREATMENT TIBIAL SHAFT FRACTURE WITH INTRAMEDULLARY IMPLANT WITH INTERLOCKIN G SCREWS Left 09/02/2019 Performed by Vinicio Pang MD at Main OR/Periop Social History: Social History Tobacco Use Smoking [...] T BP P RR SPO2P SPO2 User 01/28/20 1700 -- 108/76 89 18 PER MINUTE 89 96 % [place] 01/28/20 1524 -- 106/75 90 19 PER MINUTE 90 97 % [place] 01/28/20 1430 -- 109/74 95 -- 95 95 % [place] 01/28/20 1320 37 C (98.6 F) 138/84 -- 18 PER MINUTE 110 99 % [place] 01/28/20 1250 37.2 C (99 F) 121/70 -- 14 PER MINUTE 114 99 % SB Physical Exam: Physical Exam Vitals signs and nursing note reviewed. Constitutional: General: She is not in acute distress. Appearance: She is well-developed. She is not diaphoretic. HENT: Head: Normocephalic and atraumatic. Eyes: Conjunctiva/sclera: Conjunctivae normal. Neck: Musculoskeletal: Normal range of motion. Cardiovascular: Rate and Rhythm: Regular rhythm. Tachycardia present. Pulmonary: Effort: Pulmonary effort is normal. No respiratory distress. Breath sounds: Normal breath sounds. No wheezing or rales. Abdominal: General: There is no distension. Palpations: Abdomen is soft. Tenderness: There is abdominal tenderness (mild) in the epigastric area. Ther e is no guarding or rebound. Musculoskeletal: Normal range of motion. General: No tenderness. Feet: Skin: General: Skin is warm and dry. Neurological: Mental Status: She is alert and oriented to person, place, and time. Psychiatric: Behavior: Behavior normal. Laboratory Results: Labs Reviewed CBC AND DIFF - Abnormal Result Value Ref Range Status White Blood Cells 14.5 (*) 4.5 - 11.0 K/UL Final RBC 4.23 4.0 - 5.0 M/UL Final Hemoglobin 12.8 12.0 - 15.0 GM/DL Final Hematocrit 37.6 36 - 45 % Final MCV 89.0 80 - 100 FL Final MCH 30.3 26 - 34 PG Final MCHC 34.0 32.0 - 36.0 G/DL Final RDW 13.2 11 - 15 % Final Platelet Count 250 150 - 400 K/UL Final MPV 7.9 7 - 11 FL Final Segmented Neutrophils 38 (*) 41 - 77 % Final Lymphocytes 51 (*) 24 - 44 % Final Monocytes 5 4 - 12 % Final Eosinophil 4 0 - 5 % Final Basophil 2 0 - 2 % Final Normal RBC Morph NORMAL Final Platelet Estimate NORMAL Final Absolute Neutrophil Count Manual 5.51 1.8 - 7.0 K/UL Final COMPREHENSIVE METABOLIC PANEL - Abnormal Sodium 135 (*) 137 - 147 MMOL/L Final Potassium 4.3 3.5 - 5.1 MMOL/L Final Chloride 101 98 - 110 MMOL/L Final Glucose 288 (*) 70 - 100 MG/DL Final Blood Urea Nitrogen 17 7 - 25 MG/DL Final Creatinine 1.01 (*) 0.4 - 1.00 MG/DL Final Calcium 9.2 8.5 - 10.6 MG/DL Final Total Protein 6.5 6.0 - 8.0 G/DL Final Total Bilirubin 0.3 0.3 - 1.2 MG/DL Final Albumin 3.9 3.5 - 5.0 G/DL Final Alk Phosphatase 145 (*) 25 - 110 U/L Final AST (SGOT) 19 7 - 40 U/L Final CO2 25 21 - 30 MMOL/L Final ALT (SGPT) 20 7 - 56 U/L Final Anion Gap 9 3 - 12 Final eGFR Non 56 (*) >60 mL/min Final eGFR >60 >60 mL/min Final C REACTIVE PROTEIN (CRP) C-Reactive Protein 0.63 <1.0 MG/DL Final SED RATE Sed Rate -ESR 11 0 - 30 MM/HR Final POC TROPONIN Vlxigdjs-E-SDM 0.00 0.00 - 0.05 NG/ML Final D-DIMER D-Dimer 409 <500 ng/mL FEU Final URINALYSIS DIPSTICK URINALYSIS, MICROSCOPIC BLUE TOP TUBE GREEN TOP TUBE POC TROPONIN Radiology Interpretation: CHEST SINGLE VIEW Final Result No acute abnormality. Finalized by MOMO LAMAS M.D. on 01/28/2020 3:51 PM. Dictated by MOMO LAMAS M.D. on 01/28/2020 3:45 PM. FOOT COMP MIN 3 VIEWS RIGHT Final Result Findings/impression: 1. Incompletely characterized minimally displaced partially healed distal fibul ar fracture. 2. Small osseous erosions involving the medial head of the first metatarsal, wh ich can be seen with gout arthropathy. Otherwise no additional osseous erosions or periosteal reactions to suggest osteomyelitis. If concern persists, an MRI ca n be obtained. 3. Complete osseous healing of the previously identified fracture through the b ase of the fifth metatarsal. No acute fracture of the foot. 4. Calcific atherosclerosis throughout the visualized lower extremity. Approved by Brent Virgen MD on 01/28/2020 4:11 PM By my electronic signature, I attest that I have personally reviewed the images for this examination and formulated the interpretations and opinions expressed i n this report Finalized by GILBERT ALTMAN on 01/28/2020 5:16 PM. Dictated by Brent Zuniga i, MD on 01/28/2020 3:23 PM. EKG: Normal sinus rhythm at [address] elevation. Normal intervals, left axis dorene ation, no significant changes from prior EKG. ED Course: 59 y.o. female presenting to the ED for chest pain, right foot wound Workup: Patient seen and evaluated by the resident and attending. See physical exam as above. Her troponin returned within normal limits, and her EKG showed no evidence of ac ely shosh[place] ischemia. Her CXR showed no evidence of acute cardiopulmonary abnormality. The patient is moderate risk by Wells criteria, and her d-dimer returned negativ e, so no further evaluation for PE is necessary at this time. Unclear etiology of the patient's reported chest pain a few days prior, however with a negative troponin and EKG, she is not having any acute ACS. The patient has a low risk heart score of 3 for age, risk factors. Recommended follow-up [facility] cardiology on outpatient basis for a stress test for further evaluation. She states that her last one was more than 1 year ago. Her foot exam is reassuring with no evidence of erythema, warmth, swelling. She states that the pain is been generally unchanged for the past month. Her ESR a nd CRP both returned negative. She does have an elevation in her white blood ce ll count, however she is also on steroids, making this less diagnostic. Fairly low suspicion for acute osteomyelitis given reassuring x-ray, ESR, CRP, a nd exam. There may be some small superficial infection, for which the patient w ill be treated with Keflex, particularly since she is a diabetic and more prone to distal infections. Interventions: The patient is given Toradol for pain control. Consults: None Re-assessment: The patient is resting comfortably and in no acute distress. Her vital signs remained stable throughout her stay. Disposition: Patient was discharged home with instructions to follow up with the primary care provider for further evaluation and treatment of her foot lesion, and she is instructed to follow-up with cardiology for further evaluation and tr eatment of her chest pain. Return precautions were given, including recognition of any new, worsening or concerning symptoms. Patient, family, and/or other resp onsible adult verbalized understanding of, and agreement with, the plan of care. ED Scoring: MDM Reviewed: vitals, nursing note and previous chart Interpretation: labs and ECG Facility Administered Meds: Medications ketorolac (TORADOL) injection 15 mg (15 mg Intravenous Given 01/28/20 1719) heparin lock flush PF syringe 500 Units (500 Units central venous access port in j Given 01/28/20 1747) Clinical Impression: Clinical Impression Skin lesion of foot Chest pain, unspecified type Disposition/Follow up ED Disposition ED Disposition Discharge Migue Patton III, MD [address] [facility] [address] DPT [facility], [facility] [address] [facility] [address] Medications: Discharge Medication List as of 01/28/2020 5:35 PM START taking these medications Details cephalexin (KEFLEX) 500 mg capsule Take one capsule by mouth four times daily., Disp-40 capsule, R-0, Print Procedure Notes: Procedures Attestation / Supervision: Melody Boyd am scribing for and in the presence of Leti Maradiaga MD. Melody Stanley Attestation / Supervision Note concerning Chelsea Castillo: I, Leti Maradiaga MD, personally performed the services described in this documentation as scribed in my presence and it is both accurate and complete. Leti Maradiaga MD ATTESTATION I personally observed the resident performing the E/M, discussed case with resid ent, and concur with resident documentation of history, physical assessment and treatment plan unless otherwise noted. Staff name: Demetrio Barboza DO Date: 02/01/2020 * Gogo Oviedo RN - 01/28/2020 1:12 PM CDT 59 y/o female presents to ED [address] wanting to be examined for any heart injury she may have experienced in the last week. Pt reports she started having sharp left chest pain and nausea about 2 days ago that was relieved on its own, and he r doctor told her to come get checked out. Pt presents with alignment boot on ri ght leg, says she broke her ankle while using the bathroom in the dark, causing her to fall and break it. Pt also concerned about large blisted on bottom of rig ht foot that popped on Sunday, and she feels another one coming up--per Pt, not yet examined by this RN, check later note. Pt ambulates with smooth and steady g ait, is AAOx4. VSS. Answers questions appropriately. Respirations even and unlab ored, skin warm/dry/intact. Pt resting comfortably on cart. RN awaiting further orders from team. Pt belongings: boot, jeats, shoe, shirt, * Hussein Carney RN - 01/28/2020 12:55 PM CDT Bed: [place] [id number] Expected date: Expected time: Means of arrival: Comments: * Ivory Tobin RN - 01/28/2020 12:32 PM CDT Pt denies chest pain. documented in this encounter Plan of Treatment Date/Time Name Type Priority Associated Diag noses 01/28/2020 3:23 PM CDT BLUE TOP TUBE Lab STAT 01/28/2020 3:23 PM CDT GREEN TOP TUBE Lab STAT documented as of this encounter Goals Goal Patient Associated Recent Progress Patient-Stat Aut hor Goal Type Problems ed? GOAL General No Maxine Mata RN Note: Get better documented as of this encounter Procedures Comments Procedure Name Priority Date/Time Associated Diag nosis HC TROPONIN I, POC 01/28/2020 3:24 PM CDT HC SED RATE; MANUAL STAT 01/28/2020 3:23 PM CDT HC D-DIMER STAT 01/28/2020 3:23 PM CDT HC CBC W/ AUTOMATED DIFF STAT 01/28/2020 3:23 PM CDT HC C-REACTIVE PROTEIN STAT 01/28/2020 (CRP) 3:23 PM CDT HC COMPREHENSIVE STAT 01/28/2020 METABOLIC PANEL 3:23 PM CDT CHEST SINGLE VIEW STAT 01/28/2020 3:16 PM CDT FOOT COMP MIN 3 VIEWS STAT 01/28/2020 RIGHT 3:16 PM CDT CONSULT IV THERAPY TEAM STAT 01/28/2020 2:59 PM CDT ECG 12-LEAD STAT 01/28/2020 2:53 PM CDT ECG-SCAN 01/28/2020 12:00 AM CDT documented in this encounter Results * POC TROPONIN (01/28/2020 3:24 PM CDT) Rxexsfhh-S-BFH 0.00 0.00 - 0.05 NG/ML [facility] Specimen Performing Organization Address City/State/Zipcode Ph one Number [facility] [address] [place] [address] * D-DIMER (01/28/2020 3:23 PM CDT) D-Dimer 409 <500 ng/mL FEU [facility] Comment: Recent evidence supports the use of clinical pretest probability and age-adjusted D-Dimer reference ranges for evaluation of deep vein thrombosis and pulmonary embolism in patients greater than 50 years of age. AGE D-Dimer(FEU, ng/mL) 50 years or less <500 >50 years <Age x 10 ng/mL Specimen Performing Organization Address City/[facility] Ph one Number [facility] [address] [place] [address] * SED RATE (01/28/2020 3:23 PM CDT) Sed Rate -ESR 11 0 - 30 MM/HR [facility] Specimen Blood Performing Organization Address [facility] Ph one Number [facility] [address] [place] [address] * COMPREHENSIVE METABOLIC PANEL (01/28/2020 3:23 PM CDT) Sodium 135 (L) 137 - 147 MMOL/L [facility] Potassium 4.3 3.5 - 5.1 MMOL/L [facility] Chloride 101 98 - 110 MMOL/L [facility] Glucose 288 (H) 70 - 100 MG/DL [facility] Blood Urea 17 7 - 25 MG/DL [facility] Nitrogen Creatinine 1.01 (H) 0.4 - 1.00 MG/DL [facility] Calcium 9.2 8.5 - 10.6 MG/DL [facility] Total Protein 6.5 6.0 - 8.0 G/DL [facility] Total Bilirubin 0.3 0.3 - 1.2 MG/DL [facility] Albumin 3.9 3.5 - 5.0 G/DL [facility] MAIN LAB Alk Phosphatase 145 (H) 25 - 110 U/L [facility] AST (SGOT) 19 7 - 40 U/L [facility] CO2 25 21 - 30 MMOL/L [facility] ALT (SGPT) 20 7 - 56 U/L [facility] Anion Gap 9 3 - 12 [facility] eGFR Non 56 (L) >60 mL/min [facility] Comment: Indonesian The eGFR is not validated f or use in drug dosing adjustments. Continue to use estimated creatinine clearance per dosing reference text. Please contact the Clinical Pharmacist for questions. eGFR >60 >60 mL/min [facility] Indonesian Comment: The eGFR is not validated for use in drug dosing adjustments. Continue to use estimated creatinine clearance per dosing reference text. Please contact the Clinical Pharmacist for questions. Specimen Blood Performing Organization Address [facility] one Number [facility] [address] [place] [address] * CBC AND DIFF (01/28/2020 3:23 PM CDT) White Blood 14.5 (H) 4.5 - 11.0 K/UL [facility] Cells RBC 4.23 4.0 - 5.0 M/UL [facility] Hemoglobin 12.8 12.0 - 15.0 GM/DL [facility] Hematocrit 37.6 36 - 45 % [facility] MCV 89.0 80 - 100 FL [facility] MCH 30.3 26 - 34 PG [facility] MCHC 34.0 32.0 - 36.0 G/DL [facility] RDW 13.2 11 - 15 % [facility] Platelet Count 250 150 - 400 K/UL [facility] MPV 7.9 7 - 11 FL [facility] Segmented 38 (L) 41 - 77 % [facility] Neutrophils Lymphocytes 51 (H) 24 - 44 % [facility] Monocytes 5 4 - 12 % [facility] Eosinophil 4 0 - 5 % [facility] Basophil 2 0 - 2 % [facility] Normal RBC NORMAL [facility] Morph Platelet NORMAL [facility] Estimate Absolute 5.51 1.8 - 7.0 K/UL [facility] Neutrophil Count Manual Specimen Blood Performing Organization Address [facility] one Number [facility] [address] [place] [address] * C REACTIVE PROTEIN (CRP) (01/28/2020 3:23 PM CDT) Pathologist [facility] C-Reactive 0.63 <1.0 MG/DL [facility] Protein Specimen Blood Performing Organization Address [facility] one Number [facility] [address] [place] [address] * CHEST SINGLE VIEW (01/28/2020 3:16 PM CDT) Specimen Impressions Performed At No acute abnormality. [facility] RESULTS Finalized by MOMO LAMAS M.D. on 01/27 3:51 PM. Dictated by MOMO LAMAS M.D. on 01/28/2020 3:45 PM. Narrative Performed At CHEST SINGLE VIEW [facility] RESULTS Clinical history: WOUND INFECTION. Comparison: 10/12/2018 Findings: The heart size and pulmonary vascularit y are within normal limits. No consolidation, pleural effusion, or pne umothorax. Left subclavian chest port catheter remains in place. Procedure Note Interface, Radiant Results - 01/28/2020 3:54 PM CDT CHEST SINGLE VIEW Clinical history: WOUND INFECTION. Comparison: 10/12/2018 Findings: The heart size and pulmonary vascularity are within normal limits. No consolidation, pleural effusion, or pneumothorax. Left subclavian chest port catheter remains in place. IMPRESSION No acute abnormality. Finalized by MOMO LAMAS M.D. on 01/28/2020 3:51 PM. Dictated by MOMO LAMAS M.D. on 01/28/2020 3:45 PM. Performing Organization Address City/State/Zipcode Ph one Number [facility] RESULTS * FOOT COMP MIN 3 VIEWS RIGHT (01/28/2020 3:16 PM CDT) Specimen Right Impressions Performed At Findings/impression: [facility] RESULTS 1. Incompletely characterized minimal ly displaced partially healed distal fibular fracture. 2. Small osseous erosions involving t he medial head of the first metatarsal, which can be seen with gout arthropathy . Otherwise no additional osseous erosions or periosteal reactions to sug gest osteomyelitis. If concern persists, an MRI can be obtained. 3. Complete osseous healing of the pr eviously identified fracture through the base of the fifth metatarsal. No acute fracture of the foot. 4. Calcific atherosclerosis throughou t the visualized lower extremity. Approved by Brent Virgen MD on 020 4:11 PM By my electronic signature, I attest th at I have personally reviewed the images for this examination and formulated the interpretations and opinions expressed in this report Finalized by GILBERT ALTMAN on 01/17 5:16 PM. Dictated by Brent Virgen MD on 01/28/2020 3:23 PM. Narrative Performed At FOOT COMP MIN 3 VIEWS RIGHT [facility] RES[facility] CLINICAL HISTORY: Female, 59 years old. WOUND INFECTION. COMPARISON: Tibia and fibula 0 and foot 2 view bilateral 10/12/2019 TECHNIQUE: FOOT COMP MIN 3 VIEWS RIGH T Procedure Note Interface, Radiant Results - 01/28/2020 5:19 PM CDT FOOT COMP MIN 3 VIEWS RIGHT CLINICAL HISTORY: Female, 59 years old. WOUND INFECTION. COMPARISON: Tibia and fibula 12/15/2019 and foot 2 view bilateral 10/12/2019 TECHNIQUE: FOOT COMP MIN 3 VIEWS RIGHT IMPRESSION Findings/impression: 1. Incompletely characterized minimally displaced partially healed distal fibular fracture. 2. Small osseous erosions involving the medial head of the first metatarsal, which can be seen with gout arthropathy. Otherwise no additional osseous erosions or periosteal reactions to suggest osteomyelitis. If concern persists, an MRI can be obtained. 3. Complete osseous healing of the prev iously identified fracture through the base of the fifth metatarsal. No acute fracture of the foot. 4. Calcific atherosclerosis throughout the visualized lower extremity. Approved by Brent Virgen MD on 01/28/2020 4:11 PM By my electronic signature, I attest that I have personally reviewed the images for this examination and formulated the interpretations and opinions expressed in this report Finalized by GILBERT ALTMAN on 01/28/2020 5:16 PM. Dictated by Brent Virgen MD on 01/28/2020 3:23 PM. Performing Organization Address City/State/Zipcode Ph one Number [facility] RESULTS * ECG-SCAN (01/28/2020 12:00 AM CDT) Narrative Performed At This result has an attachment that is n ot available. Ordered by an unspecified provider. documented in this encounter Visit Diagnoses Diagnosis Skin lesion of foot Chest pain, unspecified type documented in this encounter Administered Medications Action Date Dose Rate Site Medication Order MAR Action 01/28/2020 5:47 PM CDT 500 Units heparin lock flush PF syringe 500 Units Given 500 Units, Flush, ONCE, 1 dose, 01/28/20 at 1845, NOTE: This is a HIGH ALERT Medication., HEPARIN, PORCINE (PF) 100 UNIT/ML IV SYRG (Cabinet Override) NOW, 1 dose, 01/28/20 at 1800, Created by cabinet override NOTE: This is a HIGH ALERT Medication., Created by cabinet override, 01/28/2020 5:19 PM CDT 15 mg ketorolac (TORADOL) injection 15 mg Given 15 mg, Intravenous, ONCE, 1 dose, 01/28/20 at 1715, Please note: this medication will be automatically discontinued 5 days after ordered per hospital policy. Please obtain a new order if the medication needs to be continued., documented in this encounter
--- OUTSIDE RECORDS SUMMARY | 2020-05-13 07:28 | XMS REPORT | Encounter Summary ---
Author Author [facility] Organization [facility] Address Unknown Phone Unavailable Care Team Providers Care Resort Manager Name Role Phone Charles Chau MD Unavailable Migue Patton MD PCP Rossy Leyva [phone] Unavailable Gogo Espinosa RN 2 Unavailable Reason for Visit * Reason Comments Diabetes Encounter Details Care Team Description Date Type Department Shirley Lee RN Diabetes 01/29/2020 Telephone The [facility] [address] [address] Social History Date Tobacco Use [...] encounter Miscellaneous Notes * Telephone Encounter - Shirley Lee RN - 01/29/2020 11:24 AM CDT Faxed Referral to Dexcom for CGM therapy. Discussed at clinic visit 01/28/2020 documented in this encounter Plan of Treatment Not on filedocumented as of this encounter Goals Goal Patient Associated Recent Progress Patient-Stat Aut hor Goal Type Problems ed? GOAL General No Maxine Mata, RN Note: Get better documented as of this encounter Visit Diagnoses Not on filedocumented in this encounter
--- OUTSIDE RECORDS SUMMARY | 2020-05-13 07:28 | XMS REPORT | Encounter Summary ---
Author Author [facility] Organization [facility] Address Unknown Phone Unavailable Care Team Providers Care Environmental Research Scientist Name Role Phone Charles Chau MD Unavailable Migue Patton MD PCP Rossy Leyva [phone] Unavailable Gogo Espinosa RN 2 Unavailable Reason for Visit * Reason Comments Follow Up Encounter Details Care Team Description Date Type Department Gunnar Kirk MD [address] [facility] [address] [place] [address] High risk medication use (Primary Dx) 01/07/2020 Office Visit The [facility] [address] [place] [address] Social History Date Tobacco Use [...] Signs Reading Time Taken Comments Vital Sign 143/87 01/07/2020 10:41 AM FENDER MECHANIC APPRENTICE Blood Pressure 118 01/07/2020 10:41 AM FENDER MECHANIC APPRENTICE Pulse 36.8 C (98.2 F) 01/07/2020 10:41 AM FENDER MECHANIC APPRENTICE Temperature 12 01/07/2020 10:41 AM FENDER MECHANIC APPRENTICE Respiratory Rate - - Oxygen Saturation - - Inhaled Oxygen Concentration 60.8 kg (134 lb) 01/07/2020 10:41 AM FENDER MECHANIC APPRENTICE Per patient due to currently wearing a right cam boot. Weight 165.1 cm (5' 5") 01/07/2020 10:41 AM FENDER MECHANIC APPRENTICE per pt Height 22.3 01/07/2020 10:41 AM FENDER MECHANIC APPRENTICE Body Mass Index documented in this encounter Functional Status Date of Assessment Functional Status Response 09/04/2019 Does the patient have a hearing impairment: No 09/04/2019 Does the patient have a visual impairment: Yes 09/04/2019 Does the patient have impaired ambulation: Yes 09/04/2019 Does the patient have an activity of daily living Ye s (ADL) impairment: 09/04/2019 Does the patient have an instrumental activity of Ye s daily living (IADL) impairment: Date of Assessment Cognitive Status Response 09/04/2019 Does the patient have a cognitive impairment: No documented as of this encounter Patient Instructions * Patient Instructions* Nanette Piedra RN - 01/07/2020 11:00 AM FENDER MECHANIC APPRENTICE 1. We will get an EKG on you today. 2. We have given you a prescription for Domperidone 3. Lab orders have been placed for you, please complete ordered testing today. 4. Follow up with Dr. Kirk's nurse practitioner Balbina Matamoros APRN. Please call Dr. Kirk's nurse at [phone] if you have any questions or conc erns. General Instructions: To have a medication refilled: Please use the [employer] Refill request or cont act your pharmacy directly to request medication refills. Please allow 72 hours . [facility] is on the 1st floor. It is open from 7 am-6pm -Sunday and 6:30am-7pm on Mondays, and 7 am - Noon on Saturdays [facility] is located on the 2nd floor and is open 8 am-5 pm Sunday-Sunday [facility] lab is located next to the check out desk and is open from 8 A M to 4:45 PM Sunday through Sunday. [facility] is located on the first floor 7-5:30 M-F, 7-1200 Sat, [facility] is on the 2nd floor of the Medical Office Building and the 2nd Floo r of [facility]. Radiology Scheduling can be reached at To Schedule office visits: Call option 3. For procedure scheduling questions at the Main [facility] or [facility] se call ; for a procedure at [facility] please call . To receive appointment reminders on your cell phone: Make sure we have your c AnybodyOutThere phone number, and Text [facility] to [phone]. Support for many chronic illnesses is available through [employer]: [email or web address] or [phone]. For urgent questions on nights, weekends or holidays, call the Kiss Machine Operator at , and ask for the doctor sculpture conservator for Gastroenterology. Call [phone] for an y emergencies. ER MECHANIC APPRENTICE documented in this encounter Progress Notes * Gunnar Kirk MD - 01/07/2020 11:00 AM FENDER MECHANIC APPRENTICE Date of Service: 01/07/2020 Subjective: Chelsea Castillo is a 59 y.o. female. History of Present Illness Follow-up visit for history of diabetic gastroparesis, has been on domperidone i n last 6 months. Interval history: While on domperidone, she did not notice any side effect, yahir es tremor, extra pyramidal movement, involuntary movement, tachycardia or arrhyt hmia. She is so happy about treatment with domperidone, she was off hospital since Jun last year. She also gained about 6 kg since August 2019. They are requesting a refill of domperidone to obtain from online pharmacy from [place]. All side effect including history of prior medial discussed with the patient and her . She felt significantly improved regarding nausea/vomiting, abdominal pain. She is able to eat more properly and tolerated food with no nausea and vomiting. No side effect to domperidone noted. 05/07 EKG, CQT: 429 She recently tripped and injured right food, on cast, plan to go to PCP to get x -ray. Review of Systems Constitutional: Negative. HENT: Negative. Eyes: Negative. Respiratory: Negative. Cardiovascular: Negative. Gastrointestinal: Negative. Endocrine: Negative. Musculoskeletal: Negative. Skin: Negative. Allergic/Immunologic: Negative. [...] 200 mg by mouth twice d aily. cetirizine (ZYRTEC) 10 mg tablet Take 10 [...] then remove for 12 hours before repeating.) montelukast (SINGULAIR) 10 mg tablet Take 10 [...] mg by mouth at bedtime daily. Vitals: 01/07/20 1041 BP: 143/87 BP Source: Arm, Left Upper Patient Position: Sitting Pulse: 118 Resp: 12 Temp: 36.8 C (98.2 F) TempSrc: Oral Weight: 60.8 kg (134 lb) Height: 165.1 cm (65") Body mass index is 22.3 kg/m. Physical Exam Vitals signs and nursing note reviewed. Constitutional: Appearance: Normal appearance. Neurological: General: No focal deficit present. Mental Status: She is alert and oriented to person, place, and time. Psychiatric: Mood and Affect: Mood normal. Behavior: Behavior normal. Assessment and Plan: Follow-up visit for history of diabetic gastroparesis in a 59 years old female, with history of uncontrolled diabetes, diabetic gastroparesis and complex past m edical history, several admissions in hospital, due to significant nausea/vomiti ng, and poor p.o. tolerance. On domperidone 10 mg p.o. 3 times daily, obtained from online pharmacy in [place] . Again, all side effect of domperidone, not FDA approved, not available in [place] mar ket, discussed with the patient and her . Potential side effect i.e. extraparametal side effect, tardive dyskinesia, invol untary movement, discussed in detail with patient and her . QT prolongation also discussed with the patient. Baseline EKG no QT prolongation. Will continue to obtain EKG and CM today and e very 3 months and monitor QT interval. No baseline arrhythmia noted in recent EKG. Written prescription for domperidone 10 mg p.o. 3 times daily, 3-month supply, virgilio guallpa to the patient. Re pancreatic MRI reviewed as Unchanged mild nonspecific pancreatic atrophy. The pancreas is otherwise unremarkable. No abdominopelvic lymphadenopathy or ascites. Follow-up clinically. Discussed not taking unnecessary antibiotic. Follow-up in GI clinic in 3 months by CAR USHER. Plan of care discussed in detail with patient and her , they both verbali zed understanding and agreed. Thank you very much for the consult, and for allowing me to participate in this patient's care. This note was in part completed with [employer], a voice recognition software. Some grammatical errors may have occurred. If you have concerns,please contact my o ffice for clarification. ER MECHANIC APPRENTICE documented in this encounter Plan of Treatment Order Schedule Name Type Priority Associated Diag noses Expected: 01/07/2020, Expires: 1 ECG 12-LEAD ECG Routine High risk medic ation use documented as of this encounter Goals Goal Patient Associated Recent Progress Patient-Stat Aut hor Goal Type Problems ed? GOAL General No Maxine Mata RN Note: Get better documented as of this encounter Results * COMPREHENSIVE METABOLIC PANEL (01/07/2020 12:46 PM FENDER MECHANIC APPRENTICE) Sodium 140 137 - 147 MMOL/L [facility] Potassium 4.3 3.5 - 5.1 MMOL/L [facility] Chloride 102 98 - 110 MMOL/L [facility] Glucose 197 (H) 70 - 100 MG/DL [facility] Blood Urea 15 7 - 25 MG/DL [facility] Nitrogen Creatinine 0.98 0.4 - 1.00 MG/DL [facility] [...] (L) >60 mL/min [facility] Comment: Romanian The eGFR is not validated f or use in drug dosing adjustments. Continue to use estimated creatinine clearance per dosing reference text. Please contact the Clinical Pharmacist for questions. eGFR >60 >60 mL/min [facility] Romanian Comment: The eGFR is not validated for use in drug dosing adjustments. Continue to use estimated creatinine clearance per dosing reference text. Please contact the Clinical Pharmacist for questions. Specimen Blood Performing Organization Address City/State/Zipcode Ph one Number [facility] [address] [place] [address] documented in this encounter Visit Diagnoses Diagnosis High risk medication use Encounter for long-term (current) use o f other medications documented in this encounter
--- OUTSIDE RECORDS SUMMARY | 2020-05-13 07:28 | XMS REPORT | Encounter Summary ---
Author Author [facility] Organization [facility] Address Unknown Phone Unavailable Care Team Providers Care Field Care Advocate Name Role Phone Charles Chau MD Unavailable Migue Patton MD PCP Rossy Leyva [phone] Unavailable Gogo Espinosa RN 2 Unavailable Reason for Visit * Reason Comments Medication Refill Encounter Details Care Team Description Date Type Department Xochitl Khalil MD [address] [place] [address] 01/12/2020 Refill Internal Medicine [address] [place] [address] Social History Date Tobacco Use [...] encounter Miscellaneous Notes * Telephone Encounter - Xochitl Khalil MD - 01/12/2020 11:01 AM DIRECTOR COMMUNICATIONS Pt needs to get further refills for glucagon from pt's PCP CTOR COMMUNICATIONS documented in this encounter Plan of Treatment Not on filedocumented as of this encounter Goals Goal Patient Associated Recent Progress Patient-Stat Aut hor Goal Type Problems ed? GOAL General No Maxine Mata, SHAVON Note: Get better documented as of this encounter Visit Diagnoses Not on filedocumented in this encounter
--- OUTSIDE RECORDS SUMMARY | 2020-05-13 07:28 | XMS REPORT | Encounter Summary ---
Author Author [facility] Organization [facility] Address Unknown Phone Unavailable Care Team Providers Care Shower Doors And Panels Fabricator Name Role Phone Charles Chau MD Unavailable Migue Patton MD PCP Rossy Leyva [phone] Unavailable Gogo Espinosa RN 2 Unavailable Reason for Visit * Reason Comments Diabetes Encounter Details Care Team Description Date Type Department Shirley Lee RN Diabetes 01/31/2020 Telephone The [facility] [address] [address] Social History Date Tobacco Use [...] Telephone Encounter - Shirley Lee RN - 01/31/2020 10:15 AM CDT Patient left message on my work phone 01/29 asking for return call. Called back today to discuss. Chelsea reports switching Rt ankle boot to alternative that she has at home that feels more comfortable. She now also reports start of blister on Lt heel. Review good foot care, need for supportive but well cushioned shoe for Lt foot, and ne ed to decrease wt bearing and keep feet elevated as possible to decrease swellin g. I've recommended that she call Sunday to obtain follow up with her Orthopedic ph ysician or her PCP if she is unable to get quick appt with Ortho. She needs shauna tional evaluation of boot fit and now new pressure on Lt foot-may be related to altered gate with wearing boot. Instructed her to complete antibiotic prescribed in ED and continue with adjusted insulin dosing that we had discussed at clinic visit. Encouraged continued increase in water and regular eating schedule. I've asked her to call back to update me if BG patterns remain < 200. Patient voiced understanding. Also awaiting call from Cardiology to schedule f/u appt. documented in this encounter Plan of Treatment Not on filedocumented as of this encounter Goals Goal Patient Associated Recent Progress Patient-Stat Aut hor Goal Type Problems ed? GOAL General No Maxine Mata, RN Note: Get better documented as of this encounter Visit Diagnoses Not on filedocumented in this encounter
--- OUTSIDE RECORDS SUMMARY | 2020-05-13 07:28 | XMS REPORT | Encounter Summary ---
Author Author [facility] Organization [facility] Address Unknown Phone Unavailable Care Team Providers Care Seismograph Operator Helper Name Role Phone Charles Chau MD Unavailable Migue Patton MD PCP Rossy Leyva [phone] Unavailable Gogo Espinosa RN 2 Unavailable Reason for Visit * Reason Comments Paperwork Dexcom Encounter Details Care Team Description [place] [address] [address] [phone] Paperwork (Dexcom) 01/30/2020 Telephone The [facility] [address] [facility] [address] [place] [address] Social History Date Tobacco Use Types Packs/Day [...] encounter Miscellaneous Notes * Telephone Encounter - Nelsy Chan RN - 01/30/2020 2:42 PM CDT Faxed paperwork to [employer] at [phone] Copy to PRR to scan Fax confirmation received 01/30/20 [id number] * Telephone Encounter - Nelsy Chan RN - 01/30/2020 10:27 AM CDT Received fax from [employer] Requesting completion of Detailed Written Order for CGM and office notes Routing to Dr. Avelar for signature documented in this encounter Plan of Treatment Not on filedocumented as of this encounter Goals Goal Patient Associated Recent Progress Patient-Stat Aut hor Goal Type Problems ed? GOAL General No Maxine Mata, RN Note: Get better documented as of this encounter Visit Diagnoses Not on filedocumented in this encounter
--- OUTSIDE RECORDS SUMMARY | 2020-05-13 07:28 | XMS REPORT | Encounter Summary ---
Author Author [facility] Organization [facility] Address Unknown Phone Unavailable Care Team Providers Care Emt I/99 Name Role Phone Charles Chau MD Unavailable Migue Patton MD PCP Rossy Leyva [phone] Unavailable Gogo Espinosa RN 2 Unavailable Reason for Visit * Reason Comments Follow Up Encounter Details Care Team Description Date Type Department Milena Bhatti MD [address] [place] [address] [phone] CLL (chronic lymphocytic leukemia) (HCC) (Primary Dx) 01/16/2020 Office Visit The [address] [phone] Social History Date Tobacco Use Types Packs/Day [...] Signs Reading Time Taken Comments Vital Sign 127/70 01/16/2020 1:56 PM GARNETT ROOM WORKER Blood Pressure 95 01/16/2020 1:56 PM GARNETT ROOM WORKER Pulse 36.7 C (98.1 F) 01/16/2020 1:56 PM GARNETT ROOM WORKER Temperature 12 01/16/2020 1:56 PM GARNETT ROOM WORKER Respiratory Rate 98% 01/16/2020 1:56 PM GARNETT ROOM WORKER Oxygen Saturation - - Inhaled Oxygen Concentration 61.2 kg (135 lb) 01/16/2020 1:56 PM GARNETT ROOM WORKER per PT- wearing boot Weight 162.6 cm (5' 4.02") 01/16/2020 1:56 PM GARNETT ROOM WORKER Height 23.16 01/16/2020 1:56 PM GARNETT ROOM WORKER Body Mass Index documented in this encounter Functional Status Date of Assessment Functional Status Response 01/16/2020 Does the patient have a hearing impairment: [...] this encounter Patient Instructions * Patient Instructions* Michelle Parikh RN - 01/16/2020 2:00 PM GARNETT ROOM WORKER Your care team: Dr. Milena Bhatti Consulting Software Engineer Nae Mansfield APRN-RELATIONS DIRECTOR Hematology Nurse Practitioner Clinical Nurse Coordinators (CNC's) Sally Moseley RN, BSN Michelle Parikh RN, BSN Mycmaggyt: - We strongly recommend signing up for [employer], our patient access portal, and s ending us non-urgent questions/concerns through this portal. We will reply withi n one business day. - This is also a great resource to view all of your labs and scan results. - Please feel free to ask our pharmacy scheduler upon checkout for help setting up your [employer] access. Notify Clinic for the Following: ? [...] days or significant strain ing. Phone numbers: [phone] Sourav Hinkle: [phone] Bhatti's nurse line if you have non-urgent questions or co ncerns during business hours. Messages left on nurses line are checked Sunday through Sunday between the hours of 8:00 AM and 3:30 PM. Messages left after 3:30 pm will be returned the follow ing business day. Evening (after 4:00 PM), weekends, and holiday on-call: [phone] For urgent needs after hours, please ask [...] pharmacy first to check for available refills. ETT ROOM WORKER documented in this encounter Progress Notes * Milena Bhatti MD - 01/16/2020 2:00 PM GARNETT ROOM WORKER Name: Chelsea Castillo : 1960 AGE: 59 y.o. DATE OF SERVICE: 01/16/2020 Subjective: Chelsea Castillo is a 58 y.o. Female is here for follow-up. Her major sym ptom used to be abdominal pain which is intermittent which is better since the l ast visit. Extensive workup showed gastritis and evidence of gastroparesis. She is followed by GI and is on treatment for secondary gastroparesis and has on ging improvement in her abdominal symptoms since the last visit with weight gain . She denies any infections or hospitalizations. She feels slightly better overall with her gastroparesis treatments. She denies fevers, chills and weight loss. She does have intermittent night swe ats usually once every week or once every other week and have been stable for ov er a year. She has chronic stable fatigue which is not new. She also has interm ittent exertional shortness of breath. Stable ongoing arthralgias and myalgias. She lives in [facility] [place]. Currently she is residing with her sister. She did not smoke and she does not drink. Reason for Visit: Follow Up Cancer Staging CLL (chronic lymphocytic leukemia) ([facility]) Staging form: Chronic Lymphocytic Leukemia / Small Lymphocytic Lymphoma, AJCC 8t h Edition - Clinical stage from 10/02/2018: Modified Diallo Stage I (Modified Diallo risk: Inter mediate, Binet: Stage B, Lymphocytosis: Present, Adenopathy: Present, Organomega ly: Absent, Anemia: Absent, Thrombocytopenia: Absent) - Signed by Fabián Hammonds MBBS on 10/02/2018 History of Present Illness 58-year-old lady with multiple comorbidities including type 1 diabetes, on insul in, history of seizures, chronic abdominal pain with possible gastroparesis who was referred to our clinic for new diagnosis of chronic lymphocytic leukemia. Patient was admitted to [facility] from 09-17-2018 to 09-27-2018 for evaluation of ab dominal pain. She has had several admissions for abdominal pain in the past one year. CT scan of abdomen pelvis on 09-16-2018 showed mild external iliac lymphadenopat hy bilaterally. Largest left external iliac lymph node measures 1.6 cm. There is also mildly prominent inguinal lymph nodes bilaterally which are reactive in appearance. She also had a CT chest which showed enlarged bilateral axillary an d subpectoral lymph nodes. CT neck revealed mild submental, bilateral submandib ular, left level 2A, and bilateral subpectoral and axillary lymphadenopathy. Rufino mckeon underwent left axillary lymph node core needle biopsy on 09-24-2018 that showe d solid sheets of small monotonous lymphocyte. Immunohistochemistry shows that the cells are positive for CD20 and CD5 and are negative for cyclin D1. Ki-67 w as 5%. The diagnosis was consistent with small lymphocytic lymphoma/CLL. Peripheral blood flow cytometry showed CD5 positive B-cell proliferation. B forest ls comprise 12.8% of total events that are positive for CD5, CD19, CD20, CD23, C D38, CD 200 and monoclonal lambda. Cells were e negative for CD10, CD34, and FM C7. Neoplastic B cells were negative for ZAP 70 and positive for CD38. Patient was eventually discharged with a follow-up appointment in our clinic. Review of Systems Constitutional: Positive for appetite change and fatigue. Negative for activity change, diaphoresis and unexpected weight change. HENT: Negative for mouth sores, rhinorrhea, sneezing, tinnitus and trouble swall owing. Eyes: Negative for photophobia, discharge and visual disturbance. Respiratory: Negative for cough, chest tightness and shortness of breath. Cardiovascular: Negative for chest pain, palpitations and leg swelling. Gastrointestinal: Negative for abdominal distention, abdominal pain, anal bleedi ng, blood in stool, constipation, diarrhea, nausea, rectal pain and vomiting. Genitourinary: Negative for difficulty urinating, dysuria and hematuria. Musculoskeletal: Positive for arthralgias, back pain, myalgias, neck pain and ne ck stiffness. Negative for joint swelling. Skin: Negative for color change, pallor and rash. Neurological: Negative for dizziness, seizures, weakness, light-headedness, numb ness and headaches. Hematological: Negative for adenopathy. Does not bruise/bleed easily. Psychiatric/Behavioral: Positive for confusion. Negative for agitation. The honey ent is nervous/anxious. Medical History: Diagnosis Date Arthritis Chronic abdominal [...] by Vinicio Pang MD at Main OR/Periop Family History Problem Relation Age of Onset [...] 12 hours before repeating.) Miscellaneous Medical Supply [facility] Domperidone 10 mg PO Take 1 tablet [...] mg by mouth at bedtime daily. Vitals: 01/16/20 1356 01/16/20 1359 BP: 127/70 BP Source: Arm, Right Upper Patient Position: Sitting Pulse: 95 Resp: 12 Temp: 36.7 C (98.1 F) TempSrc: Oral SpO2: 98% Weight: 61.2 kg (135 lb) Height: 162.6 cm (64.02") PainSc: Five Body mass index is 23.16 kg/m. Pain Score: Five Pain Loc: Foot((R)) Pain Addressed: N/A Patient Evaluated for a Clinical Trial: No treatment clinical trial available fo r this patient. Eastern Cooperative Oncology Group performance status is 0, Fully active, able t o carry on all pre-disease performance without restriction.. Physical Exam Vitals signs and nursing note reviewed. Constitutional: General: She is not in acute distress. Appearance: She is well-developed. HENT: Head: Normocephalic and atraumatic. Eyes: General: Right eye: No discharge. Left eye: No discharge. Conjunctiva/sclera: Conjunctivae normal. Neck: Musculoskeletal: Neck supple. Cardiovascular: Rate and Rhythm: Normal rate and regular rhythm. Heart sounds: Normal heart sounds. No murmur. Pulmonary: Effort: Pulmonary effort is normal. Breath sounds: Normal breath sounds. No wheezing or rales. Abdominal: General: There is no distension. Palpations: Abdomen is soft. There is no mass. Tenderness: There is no abdominal tenderness. There is no guarding. Musculoskeletal: Normal range of motion. Lymphadenopathy: Cervical: No cervical adenopathy. Upper Body: Left upper body: Axillary adenopathy present. Lower Body: Left inguinal adenopathy present. Comments: Mild increase in the size of left axillary lymph node and now appro ximately 1.5 cm in longest diameter Skin: General: Skin is warm and dry. Coloration: Skin is not pale. Findings: No rash. Neurological: Mental Status: She is alert and oriented to person, place, and time. Psychiatric: Behavior: Behavior normal. Assessment and Plan: CLL: Modified Diallo-I (Lymphocytosis + enlarged lymph nodes) -Intermediate risk Binet staging-B (Three or more lymphoid bearing areas enlarged) CD38 positive ZAP-70 Neg FISH-has trisomy 12 and 20% of the CLL lines. She also has some very small c lone, 1% 17 P deleted clone. IGHV mutation was not done 59-year-old lady with multiple comorbidities including type 1 diabetes, on insul in, history of seizures, chronic abdominal pain with possible gastroparesis who is here for follow up of chronic lymphocytic leukemia. We discussed her diagnosis of chronic lymphocytic leukemia at the initial visit and also the IC WL criteria.. We explained that CLL is a heterogeneous disease with usually an indolent course. We also explained that CLL can be monitored w ith active surveillance if there are no indications of treatment. We explained the common indications for treatment in CLL per the International workshop on CL L: Evidence of progressive marrow failure as manifested by the development of, o r worsening of, anemia and/or thrombocytopenia. Massive (ie, at least 6 cm below the left costal margin) or progressive or sy mptomatic splenomegaly. Massive nodes (ie, at least 10 cm in longest diameter) or progressive or symp tomatic lymphadenopathy. Progressive lymphocytosis with an increase of more than 50% over a two-month period or lymphocyte doubling time. Autoimmune anemia and/or thrombocytopenia that is poorly responsive to cortic osteroids or other standard therapy. Symptomatic or functional extranodal involv ement (eg, skin, kidney, lung, spine). Constitutional symptoms, defined as any one or more of the following disease- related symptoms or signs: a. Unintentional weight loss of 10 percent or more within the previous six mo nths b. Significant fatigue (ie, ECOG PS 2 or worse; inability to work or perform usual activities) c. Fevers higher than 100.5F or 38.0C for two or more weeks without other evidence of infection d. Night sweats for more than one month without evidence of infection All this has been discussed with her during the September 2018 visit. She has been overall stable since the last clinic visit with improving abdominal pain. Stable arthralgias ans myalgias. In regards to CLL, clnically No indication for treatment at this time. No major lymphadenopathy on exam. No hepatosplenomegaly. No B symptoms. Labs were not don e due to difficulty with port and patient refuse peripheral draw. Had alteplase to port during clinic visit and will be drawn after clinic visit if the draw wor ks through port CLL: We will continue observation every 3 months with H&P and labs at this time. She continues to be stable, may change her visits to every 6 months after next v isit. discussed this with her today and she is agreeable We also discussed that CLL patients might be at higher risk of infection given t hat there are immunoglobulin level was low at 566 in September 2018. No ongoing i nfections since the last visit. She needs to be up-to-date with her vaccinations including yearly influenza vacc ine and pneumococcal vaccine as indicated. Anemia: ongoing Likely nutrition related due to gastroparesis. Ferritin is 16 but improved last year B12 was normal in march 2019 Hemoglobin is slightly improved since last visit and no labs today TITO negative. Continue to monitor for now Will repeat iron panel in 3 months at next visit. Hair loss: Stabilized per patient since her nutrition has improved Monitor for now Follow up: 3 months with labs RTC in 3 months ETT ROOM WORKER documented in this encounter Plan of Treatment Order Schedule Name Type Priority Associated Diag noses Expected: 01/23/2020 (Approximate), Expi res: 01/16/2021 CBC AND DIFF Lab Routine CLL (chronic ly mphocytic leukemia) (HCC) documented as of this encounter Goals Goal Patient Associated Recent Progress Patient-Stat Aut hor Goal Type Problems ed? GOAL General No Maxine Mata, RN Note: Get better documented as of this encounter Visit Diagnoses Diagnosis CLL (chronic lymphocytic leukemia) (HCC ) Chronic lymphoid leukemia, without ment ion of having achieved remission documented in this encounter
--- OUTSIDE RECORDS SUMMARY | 2020-05-13 07:28 | XMS REPORT | Encounter Summary ---
Author Author [facility] Organization [facility] Address Unknown Phone Unavailable Care Team Providers Care Director Card Name Role Phone Charles Chau MD Unavailable Migue Patton MD PCP Rossy Leyva [phone] Unavailable Gogo Espinosa RN 2 Unavailable Reason for Visit * Reason Comments Labs Only Encounter Details Care Team Description Date Type Department Milena Bhatti MD [address] [place] [address] [phone] CLL (chronic lymphocytic leukemia) (HCC) 01/16/2020 Nurse Only The [address] [phone] Social History Date Tobacco Use Types Packs/Day [...] as of this encounter Progress Notes * Lyubov Gerardo, RN - 01/16/2020 1:00 PM GOLF COURSE ASSISTANT Pt here for labs from port port flushed without difficulty but not blood return. Attempted to draw from vein not Successful. Alteplase instilled and after 1 ho ur no blood then pt to Dr and came back after 1.5 hours and only a tingle out. Leoncio MendozaParikh stated if no luck pt can go home with out labs being done. Pt stated that the port had not been flushed since Jul 1019. Explained to pt that is need to be flushed at least 4-6 weeks COURSE ASSISTANT documented in this encounter Plan of Treatment [...] Dose Rate Site Medication Order MAR Action 01/16/2020 12:46 PM GOLF COURSE ASSISTANT 2 mg alteplase (CATHFLO ACTIVASE) injection 2 Given mg 2 mg, Injection, ONCE, 1 dose, Sun01/16/20 at 1245 01/16/2020 2:23 PM GOLF COURSE ASSISTANT 500 Units heparin lock flush PF syringe 500 Units Given 500 Units, Intra-catheter, ONCE, 1 dose , Sun01/16/20 at 1230, NOTE: This is a HIGH ALERT Medication., documented in this encounter
--- OUTSIDE RECORDS SUMMARY | 2020-05-13 07:28 | XMS REPORT | Encounter Summary ---
Author Author [facility] Organization [facility] Address Unknown Phone Unavailable Care Team Providers Care Saw Offbearer Name Role Phone Charles Chau MD Unavailable Migue Patton MD PCP Rossy Leyva [phone] Unavailable Gogo Espinosa RN 2 Unavailable Encounter Details Care Team Description Date Type Department 01/28/2020 Travel Social History Date Tobacco Use Types [...]
--- OUTSIDE RECORDS SUMMARY | 2020-05-13 07:28 | XMS REPORT | Encounter Summary ---
Author Author [facility] Organization [facility] Address Unknown Phone Unavailable Care Team Providers Care Senior Manager Creative Services Name Role Phone Charles Chau MD Unavailable Migue Patton MD PCP Rossy Leyva [phone] Unavailable Gogo Espinosa RN 2 Unavailable Encounter Details Care Team Description Date Type Department Gunnar Kirk MD [address] [facility] [address] [place] [address] [phone] 01/07/2020 [facility] [address] [facility] [address] [place] [address] Social History Date Tobacco Use Types Packs/Day [...] impairment: No documented as of this encounter Medications at Time [...] 200 mg by mouth tablet twice daily. cetirizine (ZYRTEC) 10 mg Take [...] DAILY NEEDED documented as of this encounter Plan of Treatment Not on filedocumented as of this encounter Goals Goal Patient Associated Recent Progress Patient-Stat Aut hor Goal Type Problems ed? GOAL General No Maxine Mata, RN Note: Get better documented as of this encounter Procedures Comments Procedure Name Priority Date/Time Associated Diag nosis HC COMPREHENSIVE Routine 01/07/2020 High risk med ication use METABOLIC PANEL 12:46 PM BALLAST REGULATOR OPERATOR documented in this encounter Results * COMPREHENSIVE METABOLIC PANEL (01/07/2020 12:46 PM BALLAST REGULATOR OPERATOR) Sodium 140 137 - 147 MMOL/L [facility] [...] (L) >60 mL/min [facility] Comment: [facility] The eGFR is not validated f or use in drug dosing adjustments. Continue to use estimated creatinine clearance per dosing reference text. Please contact the Clinical Pharmacist for questions. eGFR >60 >60 mL/min [facility] Comment: The eGFR is not validated for use in drug dosing adjustments. Continue to use estimated creatinine clearance per dosing reference text. Please contact the Clinical Pharmacist for questions. Specimen Blood Performing Organization Address City/State/Zipcode Ph one Number [facility] [address] [place] [address] documented in this encounter Visit Diagnoses Diagnosis High risk medication use Encounter for long-term (current) use o f other medications documented in this encounter
--- OUTSIDE RECORDS SUMMARY | 2020-05-13 07:28 | XMS REPORT | Encounter Summary ---
Author Author [facility] Organization [facility] Address Unknown Phone Unavailable Care Team Providers Care Plum Packer Name Role Phone Charles Chau MD Unavailable Migue Patton MD PCP Rossy Leyva [phone] Unavailable Gogo Espinosa RN 2 Unavailable Reason for Visit * Reason Comments Transition Of Care Encounter Details Care Team Description Date Type Department No Pcp, Na Transition Of Care 01/30/2020 Telephone Internal Medicine [address] [place] [phone] Social History Date Tobacco Use Types [...] encounter Miscellaneous Notes * Telephone Encounter - Jane Chou MA - 01/30/2020 10:04 AM CDT ED Discharge Follow Up Reached patient: listed PCP not with [facility] Admission Information Hospital Name : [facility] ED Admission Date: 01/28/20 ED Discharge Date: 01/28/20 Admission Diagnosis: wou nd check Discharge Diagnosis Skin lesion of foot Chest pain, unspecified type Hospital Services: Unplanned Today's call is 2 (calendar) days post discharge Scheduling Follow-up Appointment Upcoming appointment date and time and with whom scheduled: Future Appointments Date Time Provider Department Center 04/09/2020 10:30 AM Balbina Matamoros APRN-JACKY [facility] 04/16/2020 10:30 AM LL2 PHLEBOTOMY CHAIR [facility] Exam 04/16/2020 11:30 AM Nae Mansfield APRN-JACKY [facility] Exam 04/20/2020 9:00 AM Taylor Avelar MD [id number] When was patients last PCP visit: Visit date not found 08/19/2018 PCP primary location: [facility] Gen Medicine PCP appointment scheduled? No, PCP not with [facility] Specialist appointment scheduled? No Both PCP and Specialist appointment scheduled: No Is assistance with transportation needed? No ED Communication Did Pt call Clinic prior to going to ED? Yes Referred to ED by clinic/provider b y diabetes clinic Reason patient went to ED: Referred by clinic/provider Jane Chou MA documented in this encounter Plan of Treatment Not on filedocumented as of this encounter Goals Goal Patient Associated Recent Progress Patient-Stat Aut hor Goal Type Problems ed? GOAL General No Maxine Mata RN Note: Get better documented as of this encounter Visit Diagnoses Not on filedocumented in this encounter
--- OUTSIDE RECORDS SUMMARY | 2020-05-13 07:28 | XMS REPORT | Encounter Summary ---
Author Author [facility] Organization [facility] Address Unknown Phone Unavailable Care Team Providers Care Adult Basic Education Instructor Name Role Phone Charles Chau MD Unavailable Migue Patton MD PCP Rossy Leyva [phone] Unavailable Gogo Espinosa RN 2 Unavailable Reason for Referral * Consult, Test & Treat (Routine) Referred By Contact Referred To Contact Status Reason Specialty Diagnoses / [place] [address] [place] [id number] [facility]5 Im Diabetes Cl [address] [place] [address] No Auth Needed Specialty Services Diabetes Diagnoses Required Services Type 1 diabetes, uncontrolled, with neuropathy (HCC) Reason for Visit * Reason Comments Diabetes Encounter Details Care Team Description [place] [address] [address] [phone] Shirley Lee, SHAVON Diabetic neuropathy, type I diabetes magaly litus (HCC) (Primary Dx); Type I (juvenile type) diabetes mellitus with renal manifestations, 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) (HCC); Type 1 diabetes, uncontrolled, with neuropathy (HCC) 01/28/2020 Nurse Only [facility] [address] [id number] Social History Date Tobacco Use Types Packs/Day [...] Signs Reading Time Taken Comments Vital Sign 121/72 01/28/2020 10:33 AM CDT Blood Pressure 101 01/28/2020 10:33 AM CDT Pulse - - Temperature 16 01/28/2020 10:33 AM CDT Respiratory Rate 98% 01/28/2020 10:33 AM CDT Oxygen Saturation - - Inhaled Oxygen Concentration 61.2 kg (135 lb) 01/28/2020 10:33 AM CDT Weight 165.1 cm (5' 5") 01/28/2020 10:33 AM CDT Height 22.47 01/28/2020 10:33 AM CDT Body Mass Index documented in [...] this encounter Patient Instructions * Patient Instructions* Shirley Lee, SHAVON - 01/28/2020 10:30 AM CDT Chelsea and DENISE it was a pleasure to meet with you again today A1C today 11.6% I am very concerned about the Chest pain and nausea you had the night before las t and the foot blister and swelling and I think you should be evaluated I'd recommend going to the ER at to be evaluated further. Increase the Tresiba to 14 units at bedtime- let me know if you start waking up in the lower 100's Increase Novolog 10 units at meals with correction added of 1 unit for each 50 points over 150 150-200 +1unit 201-250 +2 251-300 +3 301-350 +4 No Correction at bedtime except if you missed your Novolog at dinner, if don't e at lunch Correction only To treat a low use just 1/2 cup of OJ except if Blood sugar below 50 then use 8o z/1 cup and a small snack Blood sugar target is 100-150 before meals and 180 at bedtime. Please rotate the sites where you inject and give the area right around your bel ly a rest You are scheduled for a follow up with Dr. Avelar on April 20, 2020 Shirley Lee RN, MSN, CDE Diabetes Nurse Educator [facility] Office: [phone] For appointments: [phone] [email or web address] documented in this encounter Progress Notes * Shirley Lee RN - 01/28/2020 10:30 AM CDT Date of Service: 01/28/2020 Subjective: Chelsea Castillo is a 59 y.o. female. History of Present Illness Diabetes Mellitus: The patient presents to diabetes clinic for ongoing evaluation and management of diabetes mellitus. The patient brought self blood glucose measurements for rev iew which were reviewed and discussed and may be found scanned into [employer]. General observed trends included average glucose 377 with standard deviation 152. Range 53Hi. Type: 1 Dx: Age 15 Hemoglobin A1c 11.6% FSBS 398 patient reports taking injection of insulin in [facility] lot prior to coming into clinic as BG elevated following breakfast-478 (pre vious 10.5% 06/24/2019) Frequency of testing FSBS: 4+ day Current treatment: Tresiba 12 units nightly. NovoLog 5 units before meals-often just breakfast and lunch. She has correction factor for 1 unit for every 50 > 180 though not using consistently Past treatment: Hyperglycemia: Throughout day although fasting patterns lowest-may be related to HS corrections Hypoglycemia: Patient denies over the last couple of weeks although noted 3 read ings in the 50's about 4wks ago- Patient has been correcting at bedtime or betwe en meals if she finds BG elevated. Meals per day: She reports breakfast and dinner daily. Because of fatigue she of ten will sleep through lunch. Must consume ground or shredded meats. CHO intake: Not limited. She does not carb count. She says she attempted this previously and had a lot of trouble understanding. Exercise: No-current walking boot Rt. Foot secondary to Rt ankle fracture Last time for diabetes education: January 2019. Last visit with the dietitian: November 2019-[facility]. DM related hospitalizations: Hospitalized in June 2019 for gastroparesis flare . The following questions were discussed with the following answers: Does the patient have symptoms of excessive urination, or thirst? Yes both in creased thirst and urination-reports lots of water daily Is the patient having any visual problems or ocular pain? Yes reports vision blurriness When was the last stock sorter examination? Annual-scheduled with Donnie April or May 2020 Has the stock sorter diagnosed retinopathy? Not sure Does the patient have any foot problem such as numbness, pain, callus, rednes s, skin break down or ulceration? Yes, previous Lt tibia fracture-underwent hard han removal Aug 2019. Fell 01/12/2020 during the night and sustained Rt ankle fr acture-walking boot in place. Reports blister on bottom of Rt foot with pain an d swelling. Patient reports considerable pain in Rt. Ankle. Numbness in feet. Does the patient have any chest pain or exertional shortness of air? Yes-nigh t before last she reports episode of severe CP accompanied by nausea. Took anti- nausea medication and it relieved the nausea-no recurrence since that time. Did the patient relay any additional concerns or problems for this visit? Mu ch improved GI symptoms with use of domperidone- Less N/V and ABD pain. Seen 12/[address] Kirk for f/u on gastroparesis. She has CLL and continues to be followed in hematology clinic but has not yet required treatment. Complications of DM: CAD: no CVA: no PVD: no Amputations: no Retinopathy: not sure Gastropathy: yes Nephropathy: no Neuropathy: yes Medications: Statin: yes TEDDY-I: no ASA: no Medical History: Diagnosis Date Arthritis Chronic abdominal [...] then remove for 12 hours before repeating.) [facility] Domperidone 10 mg PO Take 1 tablet [...] mg by mouth at bedtime daily. Vitals: 01/28/20 1033 BP: 121/72 BP Source: Arm, Left Upper Patient Position: Sitting Pulse: 101 Resp: 16 SpO2: 98% Weight: 61.2 kg (135 lb) Height: 165.1 cm (65") PainSc: Zero Body mass index is 22.47 kg/m. Physical Exam Nursing note and vitals reviewed. Constitutional: she is oriented to person, place, and time. HENT: Head: Normocephalic and atraumatic. Mouth/Throat: Oropharynx is clear and moist. Eyes: Conjunctivae normal and EOM are normal. Pupils are equal, round, and react mu to light. Cardiovascular: Normal rate, regular rhythm . Pulmonary/Chest: Effort normal and breath sounds normal. No respiratory distress . Abdominal: Soft. Bowel sounds are normal. She exhibits no distension. Neurological: she is alert and oriented to person, place, and time. Skin: Skin is warm and dry. Psychiatric: She is tearful through out visit today. Her behavior is normal. Tho ught content normal. Diabetic Foot Exam Bilateral vascular, sensation, integument are normal: Diminished sensation to 1 0gm monofilament in bilat feet. Large callous along lower edge of ball of Lt Jewel t. Rt. Foot had a dressing that I removed to examine blister that was not intact . 2" x 1 1/2" oval dark colored wound, tender to touch and warm with swelling in toes and ball of foot. Wound was redressed with sterile guaze and paper tape. T oenails are long with onychomycosis in great toenails. Patient reports f/u with manager of photography in [place], [place] Dr. Aguilar. Assessment and Plan: Chelsea VictoriaVasquez Issa Castillo was seen today for diabetes. Diagnoses and all orders for this visit: Type 1 diabetes, uncontrolled, with neuropathy (HCC) Hypoglycemia associated with diabetes (HCC) - POC HEMOGLOBIN A1C, POC GLUCOSE, glucose meter download all reviewed with the patient and her . - A1C higher than when last checked and well above target. Fasting patterns batres d been lower initially but all elevated the last few days. Prandial hyperglycemi a. - Very concerned about her report of CP with nausea-she reports she had not told anyone that this occurred. This along with foot wound I have advised further ev aluation in ER. Call made to ER to advise that Patient was in transit - Poor eating habits and food choices and irregular eating schedule despite mult iple visits with [employer]. - Discuss importance of improving BG control to lower assisted risks as well as gastroparesis S&S and aide GI function - Recommend increaseTresiba 14 units at night. - Recommend increase in mealtime Novolog to 10 units with Correction and advised against HS corrections as risk of overnight hypoglycemia. - Patient is interested in pursuing Dexcom CGM therapy - Review site rotation for injections and technique - She has glucagon kit at home. - Patient also requests that clinic notes be forwarded to her PCP in [place] Patient Instructions: Chelsea and DENISE it was a pleasure to meet with you again today A1C today 11.6% I am very concerned about the Chest pain and nausea you had the night before las t and the foot blister and swelling and I think you should be evaluated I'd recommend going to the ER at to be evaluated further. Increase the Tresiba to 14 units at bedtime- let me know if you start waking up in the lower 100's Increase Novolog 10 units at meals with correction added of 1 unit for each 50 points over 150 150-200 +1unit 201-250 +2 251-300 +3 301-350 +4 No Correction at bedtime except if you missed your Novolog at dinner, if don't e at lunch Correction only To treat a low use just 1/2 cup of OJ except if Blood sugar below 50 then use 8o z/1 cup and a small snack Blood sugar target is 100-150 before meals and 180 at bedtime. Please rotate the sites where you inject and give the area right around your bel ly a rest You are scheduled for a follow up with Dr. Avelar on April 20, 2020 Scheduled for RTC with Dr. Taylor Avelar 04/20/2020 documented in this encounter Plan of Treatment Order Schedule Name Type Priority Associated Diag noses Ordered: 01/28/2020 AMB REFERRAL TO DIABETIC Outpatient Routine Type 1 diabetes, EDUCATION Referral uncontrolled, with neuropathy (HCC) documented as of this encounter Goals Goal Patient Associated Recent Progress Patient-Stat Aut hor Goal Type Problems ed? 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) ([facility]) GLUCOSE METER DOWNLOAD Routine 01/28/2020 Type 1 diabetes, uncontrolled, with neuropathy ([facility]) POC HEMOGLOBIN A1C Routine 01/28/2020 Diabetic ne uropathy, type I diabetes mellitus ([facility]) Type I (juvenile type) diabetes mellitus with renal manifestations, 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) ([facility]) documented in this encounter Results * POC GLUCOSE QUANTITATIVE BLOOD (01/28/2020) Glucose, POC 398 IN CLINIC Specimen Performing Organization Address [facility] one Number IN CLINIC * POC HEMOGLOBIN A1C (01/28/2020) Poc Hemoglobin 11.6 % IN CLINIC A1C Specimen Blood Performing Organization Address [facility] one Number IN CLINIC documented in this encounter Visit Diagnoses Diagnosis Diabetic neuropathy, type I diabetes me llitus ([facility]) Type I (juvenile type) diabetes mellitu s with neurological manifestations, not stated as uncontrolled Type I (juvenile type) diabetes mellitu s with renal manifestations, 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) ([facility]) Type I (juvenile type) diabetes mellitu s with renal manifestations, uncontrolled Type 1 diabetes, uncontrolled, with lisa ropathy ([facility]) Type I (juvenile type) diabetes mellitu s with neurological manifestations, uncontrolled documented in this encounter
--- OUTSIDE RECORDS SUMMARY | 2020-05-13 07:29 | XMS REPORT | Encounter Summary ---
Author Author [facility] Organization [facility] Address Unknown Phone Unavailable Care Team Providers Care Supervisor Plate Pasting Name Role Phone Charles Chau MD Unavailable Migue Patton MD PCP Rossy Leyva [phone] Unavailable Gogo Espinosa RN 2 Unavailable Encounter Details Care Team Description Date Type Department Vinicio Pang MD [address] [facility] [address] [place] [address] Painful orthopaedic hardware (HCC) (Prim rita Dx); Closed fracture of left tibia and fibula with routine healing, subsequent encounter 12/12/2019 Orders Only [facility] [address] [place] [address] Social History Date Tobacco Use [...] Goal Type Problems ed? GOAL General No Maxien Mata RN Note: Get better documented as of this encounter Results * TIBIA & FIBULA 2 VIEWS LEFT (12/15/2019 10:13 AM [employer]) Specimen Left Impressions Performed At Findings/Impression: [facility] 1. Old healed distal tibia and fibula fractures with alignment similar to prior studies. Intact antegrade IM nail with interlocking screw fixation of the tibia. Mild posterior bowing of the tib ia at the distal tibial healed fracture site. Mild valgus angulation and mild-t o-moderate apex posterior angulation at the healed distal fibula fracture site. Moderate posterior displacement of the healed distal fibular fracture segment. 2. Knee and ankle joint spaces mainta ined. Finalized by Benjamin Lim M.D. on 2019 10:17 AM. Dictated by Benjamin Lim M.D. on 12/15/2019 10:14 AM. Narrative Performed At TIBIA & FIBULA 2 VIEWS LEFT [facility] Clinical Indication: Intramedullary kayode ling of left tibial shaft fracture DOS 10.15.19. Comparison: October 20, 2019 correlatin g August 18, 2019 Procedure Note Interface, Radiant Results - 12/15/2019 10:20 AM AITCH[employer]ONE BREAKER TIBIA & FIBULA 2 VIEWS LEFT Clinical Indication: Intramedullary nailing of left tibial shaft fracture DOS 10.15.19. Comparison: October 20, 2019 correlating August 18, 2019 IMPRESSION Findings/Impression: 1. Old healed distal tibia and fibula f ractures with alignment similar to prior studies. Intact antegrade IM nail with interlocking screw fixation of the tibia. Mild posterior bowing of the tibia at the distal tibial healed fracture site. Mild valgus angulation and [id number] apex posterior angulation at the healed distal fibula fracture site. Moderate posterior displacement of the healed distal fibular fracture segment. 2. Knee and ankle joint spaces maintain ed. Finalized by Benjamin Lim M.D. on 12/15/2019 10:17 AM. Dictated by Benjamin Lim M.D. on 12/15/2019 10:14 AM. Performing Organization Address City/State/Zipcode Ph one Number [facility] RES[facility] documented in this encounter Visit Diagnoses Diagnosis Painful orthopaedic hardware (HCC) Other complications due to other pharmacy intern al orthopedic device, implant, and graft Closed fracture of left tibia and fibul a with routine healing, subsequent encounter documented in this encounter
--- OUTSIDE RECORDS SUMMARY | 2020-05-13 07:29 | XMS REPORT | Encounter Summary ---
Author Author [facility] Address Unknown Phone Unavailable Care Team Providers Care Executive Legal Secretary Name Role Phone Charles Chau MD Unavailable Migue Patton MD PCP Rossy Leyva [phone] Unavailable Gogo Espinosa RN 2 Unavailable Reason for Visit * Reason Comments Diabetes Encounter Details Care Team Description Date Type Department Miranda Herndon, LEXX [address] [facility] Ortho/Med Pavilion [address] [place] [address] [phone] Katrin Lei, RD [address] [place] [address] [phone] Type 1 diabetes, uncontrolled, with neur opathy (HCC) (Primary Dx) 11/27/2019 Clinical [facility] [address] [place] [address] Social History Date Tobacco Use [...] this encounter Patient Instructions * Patient Instructions* Katrin Lei RD - 11/27/2019 11:00 AM GUARD ENTRANCE REGISTRAR I will keep you updated about Dexcom classes! With meals: Continue 7 units + Correction factor with dinner and large meals Decrease to 5 units with director nursing service meals Only use correction factor if you are not eating any carbs with the meal (ex: batres m & cheese) Correction Factor: <150 = no additional units 151-200 = 1 additional unit 201-250 = 2 additional units 251-300 = 3 additional units 301-350 = 4 additional units 351-400 = 5 additional units >400 = 6 additional units Try to avoid taking insulin injections within 4 hours of each other; but if you feel you have to, cut your insulin dose in half Katrin Lei MS, RD, LD, CDE Securities Counselor ? Internet Sales Associate [facility] Self[email or web address] D ENTRANCE REGISTRAR documented in this encounter Progress Notes * Katrin Lei RD - 11/27/2019 11:00 AM GUARD ENTRANCE REGISTRAR Diabetes Self-Management Education Follow Up Assessment Reason for consult: DM education follow up and Nutrition consult; (11/28/2019) Diabetes Management Physician: Taylor Avelar MD Referring Provider: Taylor Avelar MD Diabetes Hx Type of Diabetes: Type 1 Date of Diagnosis: At age 15 HgA1c HISTORY: Lab Results Component Value Date HGBA1C 9.4% 01/20/2019 HGBA1C 9.8 (H) 09/18/2018 HGBA1C 11.4 (H) 07/19/2018 Lab Results Component Value Date A1C 10.5 06/24/2019 A1C 8.5 10/08/2018 LIPID PROFILE: Lab Results Component Value Date CHOL 176 09/18/2018 HDL 53 09/18/2018 LDL 96 09/18/2018 VLDL 32 09/18/2018 TRIG 161 (H) 09/18/2018 WEIGHT HISTORY: Wt Readings from Last 3 Encounters: 10/20/19 59.9 kg (132 lb) 10/10/19 60.1 kg (132 lb 9.6 oz) 09/18/19 54.9 kg (121 lb) BMI Readings from Last 1 Encounters: 10/20/19 22.66 kg/m Medication Comment: Tresiba 12u at night, Novolog 7u with meals + 1u for every 5 0 over 150 Pt. Missing Doses of Diabetes Meds: No Injection/Infusion Set Locations: Abdomen or Back of Arm ( will inject in the back of her arm occasionally) Rotation Injection/Infusion Set Locations: Yes Injection/Infusion Administration: Disposable pens Insulin Pump: No BG Monitoring Frequency: 5.7 values on average daily Source: Downloaded Range per Meter: 45-"Hi" Continuous Glucose Monitor? No - interested in Dexcom; their friend is wearing Dexcom Hypoglycemia Hypoglycemia frequency and severity (<70 mg/dL): 3% below 70 in the past 30 days. Reported using the glucagon pen while pt is alert if blood sugars aren't rising quick enough. Explained purpose and appropriate use of glucagon pen Hypoglycemia Unawareness? No At what BG level pt experiences symptoms? 150 mg/dL Treatment of hypoglycemia: [place] juice, glucose tabs, honey Medical Id: Has and wears regularly; pt has tattoo as Medical ID; also requeste d a tear off for Medical ID website Patient Has Current Glucagon Kit: Yes; has one left, pt and report that insurance will not cover another pen Hypoglycemia comment: Pt is very scared of low blood sugars, therefore runs hig h on purpose because that is where she feels "comfortable". Pt's stated that pt might start crying when having a low blood sugar because she knows somet bebe is wrong but doesn't know how to communicate it to him; pt also reported st acking Novolog one hour apart. Hyperglycemia Using CF for hyperglycemia? Yes ISF: 1u:50>150 Hyperglycemia comment: Above target range 77% of values Diet Comments: Pt reports she doesn't eat as much as she used to. She has gastro paresis and overtime has learned which foods increase symptoms (reportedly greas y and spicy foods). Gets full quickly. Has been omitting insulin doses due to cervantes ch small portions/no carbs. Timing of Bolus: Before Meal Bolus Comment: Usually boluses before, boluses after if she forgets Does pt count carbohydrates?: No -- Dr. Avelar would like pt to count carbs so she can use a carb ratio; last visit, pt began to cry while learning carb counting due to feeling overwhelmed though by the end of the appt she was willing to try; today, she still states it is too overwhelming; it seems that the pt is unwilli ng to try again Insulin to carb ratio? No Type, Frequency, Duration of Exercise: On October 20, 4 of pt's ribs out of li ne Barriers to Treatment: Knowledge Specific Areas of Concern Today: Chelsea is a 59 yo female with T1DM. History of gastroparesis. Referred to education for carb counting support, although pt repo rts feeling very overwhelmed. Today we discussed insulin plan at length. Pt is w illing to try small, medium and large carb meal doses. She is interested in a De xcom; however she is worried the adhesive will not stay on. Gave pt demo to ciarrae ss. Provided education regarding the risks of stacking insulin. Reviewed MNT for gastroparesis. Intervention Learners Present: Patient and Significant Other, , TJ Education Type: 1 on 1 Outpatient DSME Handouts Given: Previously: Carbohydrate List, Measuring Cups and Calculator, ad vised to download 24tidy maury on phone Education provided: Disease Process: Pathophysiology and Treatment Options 2 Carbohydrate Counting: Adjustments for exercise, Eating out/Special occasions, E stimating portion sizes, Main source of carbohydrate and How nutrients affect BG 2 Healthy Eating: Healthy Meals, Special diet (specify in comments) and Gastropare sis 2 Physical Activity: Effect on BG and Bolus adjustments 3 Medications: Mechanism of action of insulin, Calculating insulin doses, Site julio c ection/rotation and Timing 2 Blood Glucose Monitoring: Frequency, Pattern Management and Personal targets 3 Acute Complications: Hyperglycemia: Causes and prevention and Using ISF 2 Acute Complications: Hypoglycemia: Causes and prevention, Fast-acting carbohydra deuce, Glucagon, Rule of 15 and Signs and symptoms 2 Sick Day Management: Effect of illness on BG 2 Insulin Pumps and Continuous Glucose Monitoring: Introduction to sensors 2 Chronic Complications: Development and prevention, Microvascular body of systems affected by diabetes and Macrovascular body systems affected by diabetes 3 Psychosocial Adjustment: Develop routine and Goal setting 2 Preconception Care: NA Developing strategies to promote health & behavior change: 2 Pre-session assessment shown in parentheses following content area assessed 1=needs improvement 2=needs review 3=comprehends ortega points 4=demonstrates understanding NC=not covered N/A=not applicable Patient Instructions I will keep you updated about Dexcom classes! With meals: Continue 7 units + Correction factor with dinner and large meals Decrease to 5 units with director nursing service meals Only use correction factor if you are not eating any carbs with the meal (ex: batres m & cheese) Correction Factor: <150 = no additional units 151-200 = 1 additional unit 201-250 = 2 additional units 251-300 = 3 additional units 301-350 = 4 additional units 351-400 = 5 additional units >400 = 6 additional units Try to avoid taking insulin injections within 4 hours of each other; but if you feel you have to, cut your insulin dose in half Katrin Lei MS, RD, LD, CDE Securities Counselor ? Internet Sales Associate [facility] Diabetes Self-Management [email or web address] Diabetes Management Support Plan: Attend PCP and Diabetes Provider appointments regularly, Return for f/u with educator and Practice carb counting at meals (pt feels very overwhelmed with carbohydrate counting and it is not likely she will try to incorporate this into her diabetes treatment plan), Dexcom training or Cr ay Diabetes Dexcom class in the future Diabetes Program Outcome Monitoring and Evaluation: A1C Program Outcome at Baseline: 8.5% Program Outcome at Follow up: 10.5% Did Diabetes Program Outcome Improve?: No Patient-Selected Behavior Change Objective Area: Nutritional Management/Healthy Eating Patient-Selected Behavior Change Goal: Adjust dose based on low carb, medium car b, and high carb meals Patient-Selected Behavior Change Goal Baseline 25% Start Time: 11:20 Stop Time: 12:30 Monitoring and Evaluation Follow-up: No follow-ups on file. - prefer [place] location - follow up with Shirley Lee & Dr. Avelar - pt's friend wears dexcom and they are interested in using CGM Katrin Lei MS, RD, LD, CDE Securities Counselor ? Internet Sales Associate [facility] Diabetes Self-Management [email or web address] D ENTRANCE REGISTRAR documented in this encounter Plan of Treatment Not on filedocumented as of this encounter Goals Goal Patient Associated Recent Progress Patient-Stat Aut hor Goal Type Problems ed? GOAL General No Maxine Mata RN Note: Get better documented as of this encounter Procedures Comments Procedure Name Priority Date/Time Associated Diag nosis GLUCOSE METER DOWNLOAD Routine 11/27/2019 Type 1 diabetes, uncontrolled, with neuropathy (HCC) documented in this encounter Visit Diagnoses Diagnosis Type 1 diabetes, uncontrolled, with lisa ropathy (HCC) Type I (juvenile type) diabetes mellitu s with neurological manifestations, uncontrolled documented in this encounter
--- OUTSIDE RECORDS SUMMARY | 2020-05-13 07:29 | XMS REPORT | Encounter Summary ---
Author Author [facility] Address Unknown Phone Unavailable Care Team Providers Care Spray Operator Name Role Phone Charles Chau MD Unavailable Migue Patton MD PCP Rossy Leyva [phone] Unavailable Gogo Espinosa RN 2 Unavailable Reason for Visit * Reason Comments Post-op Encounter Details Care Team Description Date Type Department Vinicio Pang MD [address] [facility] Ortho/Med Pavilion [address] [place], [place] [id number] S/P hardware removal (Primary Dx); Closed fracture of right tibia and fibula with routine healing, subsequent encounter 12/15/2019 Office Visit [facility] [address] [place] [address] Social History Date Tobacco Use [...] as of this encounter Progress Notes * Vinicio Pang MD - 12/15/2019 11:00 AM BRICKLAYER APPRENTICE Date of Service: 12/15/2019 Subjective: The patient returns today for follow-up and evaluation of 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 She reports no complaints today. She states that her symptoms are gone. History of Present Illness Chelsea Castillo is a 59 y.o. female. Review of Systems Objective: She remains neurovascular intact to the left lower extremity. She demonstrates excellent range of motion of her left ankle and left knee. All of her surgical wounds are well-healed. She demonstrates ability to dorsiflex the left ankle to nearly 10 degrees and plantarflexion is to about 35 degrees. She is ambulatory weightbearing as tolerated to bilateral lower extremities without any gait abno rmalities noted. Radiographs: AP and lateral views of the left tibia and fibula demonstrate interval consolida tion and healing of the nonunion site. The hardware about the ankle is no longe r prominent at the tibial plafond. The ankle mortise is preserved in the joint space is well-maintained. Assessment: Healed left tibial shaft fracture. Resolved hardware pain left ankle. Plan: Given these findings I would recommend that she follow-up as needed. I had the opportunity to answer all of her questions prior to her departure from clinic to day. She thanked me for my efforts. KLAYER APPRENTICE documented in this encounter Plan of Treatment Not on filedocumented as of this encounter Goals Goal Patient Associated Recent Progress Patient-Stat Aut hor Goal Type Problems ed? GOAL General No Maxine Mata, RN Note: Get better documented as of this encounter Visit Diagnoses Diagnosis S/P hardware removal Other postprocedural status Closed fracture of right tibia and fibu la with routine healing, subsequent encounter documented in this encounter
--- OUTSIDE RECORDS SUMMARY | 2020-05-13 07:29 | XMS REPORT | Encounter Summary ---
Author Author [facility] Organization [facility] Address Unknown Phone Unavailable Care Team Providers Care Petal Shaper Hand Name Role Phone Charles Chau MD Unavailable Migue Patton MD PCP Rossy Leyva [phone] Unavailable Gogo Espinosa RN 2 Unavailable Reason for Visit * Reason Comments Medication Refill Encounter Details Care Team Description Date Type Department David Chávez MD [address] [place] [address] 12/15/2019 Refill [facility] [address] [facility] [address] [place] [address] Social History Date Tobacco Use Types Packs/Day [...]
--- OUTSIDE RECORDS SUMMARY | 2020-05-13 07:29 | XMS REPORT | Encounter Summary ---
Author Author [facility] Organization [facility] Address Unknown Phone Unavailable Care Team Providers Care Space Systems Operations Superintendent Name Role Phone Cahrles Chau MD Unavailable Migue Patton MD PCP Rossy Leyva [phone] Unavailable Gogo Espinosa RN 2 Unavailable Reason for Visit * Reason Comments Medication Refill Encounter Details Care Team Description Date Type Department David Chávez MD [address] [place] [address] 12/13/2019 Refill [facility] [address] [facility] [address] [place] [address] Social History Date Tobacco Use Types Packs/Day [...] encounter Miscellaneous Notes * Telephone Encounter - Terry Clemons RN - 12/15/2019 9:03 AM MANAGER TRANSPORTATION Name from pharmacy: TIZANIDINE 4MG TABLETS Will file in chart as: tiZANidine (ZANAFLEX) 4 mg tablet Sig: TAKE 1 TO 2 TABLETS BY MOUTH THREE TIMES DAILY NEEDED Disp: 180 tablet Refills: 3 (Pharmacy requested: Not specified) Start: 12/13/2019 Class: Normal Non-formulary Last ordered: 5 months ago by David Chávez MD Rx #: [id number] [id number], [place] - [address] [facility] & [place]: 05/2019 FUV: none scheduled with Dr Chávez/Lovely. Patient is following up post-op at time with Dr Pang. Will refill x1 and send message to patient to follow up in clini c. Per last note from [facility] patient taking 8 mg TID PRN. GER TRANSPORTATION documented in this encounter Plan of Treatment Not on filedocumented as of this encounter Goals Goal Patient Associated Recent Progress Patient-Stat Aut hor Goal Type Problems ed? GOAL General No Maxine Mata RN Note: Get better documented as of this encounter Visit Diagnoses Not on filedocumented in this encounter"
--- OUTSIDE RECORDS SUMMARY | 2020-05-13 07:29 | XMS REPORT | Encounter Summary ---
Author Author [facility] Organization [facility] Address Unknown Phone Unavailable Care Team Providers Care Java User Interface Developer Name Role Phone Charles Chau MD Unavailable Migue Patton MD PCP Rossy Leyva [phone] Unavailable Gogo Espinosa RN 2 Unavailable Encounter Details Care Team Description Date Type Department Vinicio Pang MD [address] Ortho/Med Pavilion [address] [place] [id number] 12/15/2019 [facility] [address] [place] [address] Social History Date Tobacco Use Types Packs/Day [...] then remove for 12 hours before repeating. montelukast (SINGULAIR) Take 10 mg by 0 [...] TABLETS BY MOUTH THREE TIMES DAILY NEEDED 12/15/2019 12/16/2019 tiZANidine (ZANAFLEX) 4 TAKE 1 TO 2 [...] Procedure Name Priority Date/Time Associated Diag nosis TIBIA & FIBULA 2 VIEWS Routine 12/15/2019 Painful orthopaedic LEFT 10:13 AM FINAL COAT SPRAYER hardware (HCC) Closed fracture of left tibia and fibula with routine healing, subsequent encounter documented in this encounter Results * TIBIA & FIBULA 2 VIEWS LEFT (12/15/2019 10:13 AM FINAL COAT SPRAYER) Specimen Left Impressions Performed At Findings/Impression: [facility] [...] Interface, Radiant Results - 12/15/2019 10:20 AM FINAL COAT SPRAYER TIBIA & FIBULA 2 VIEWS LEFT Clinical [...] healed fracture site. Mild valgus angulation and [id number] apex posterior angulation at the healed distal [...] hardware (HCC) Other complications due to other international logistics analyst al orthopedic device, implant, and graft Closed fracture of left tibia and fibul a with routine healing, subsequent encounter documented in this encounter
[2020-05-13] MEDS ORDERED: CATHETER FLUSH 10 ML SYR IV PRN (07:45)
[2020-05-13] MEDS ORDERED: ceFAZolin INJECTION 1,000 MG in WATER (STERILE) FOR INJECTION 10 ML IV ONE (07:45)
[2020-05-13] MEDS: LACTATED RINGERS 1,000 ML IV PRN ×2 (08:10→11:21)
[2020-05-13] MEDS ORDERED: inSUlin ASPART (NovoLOG) 1 UNIT/0.01 ML (CHARGE PER UNIT) IV ONE (08:30)
[2020-05-13] MEDS ORDERED: MIDAZOLAM 2 MG/2 ML (VERSED) VIAL IV ONE (09:00)
--- NOTE | 2020-05-13 09:13 | Progress Note-Pre Operative ---
Pre-Operative Progress Note H&P Reviewed The H&P was reviewed, patient examined and no changes noted. Date Seen by Provider: May 13, 2020 Time Seen by Provider: 09:12 Date H&P Reviewed: May 13, 2020 Time H&P Reviewed: 09:13 Pre-Operative Diagnosis: malfunctioning port ADALGISA RICK DO May 13, 2020 09:13
[2020-05-13] MEDS ORDERED: 0.9% SODIUM CHLORIDE PF INJ 20 ML VIAL ONE (09:23)
[2020-05-13] MEDS ORDERED: HEParin (CENTRAL IV FLUSH) 500 UNIT/5 ML SYR ONE (09:23)
[2020-05-13] MEDS ORDERED: BUP/EPI 0.5% 1:200,000 (SENSORCAINE) 30 ML VIAL ONE (09:24)
[2020-05-13] MEDS ORDERED: MEPERIDINE (DEMEROL) INJ 50 MG/ML IVP ONE (11:45)
[2020-05-13] MEDS ORDERED: morphine INJ 10 MG/ML 1ML (SYR OR VIAL) IVP ONE (11:45)
[2020-05-13] MEDS ORDERED: ONDANSETRON 4 MG/2 ML (SDV) Z0FRAN IVP PRN (11:45)
--- NOTE | 2020-05-13 11:57 | Discharge Inst-Simple/Standard ---
Discharge Inst-Standard Discharge Medications New, Converted or Re-Newed RX: RX on Chart Patient Instructions/Follow Up Plan of Care/Instructions/FU: 2 weeks Lore Activity as Tolerated: No Discharge Diet: Regular Diet Other Inst to Patient Follow up Appt: Make appointment for 2 week. Instructions: No lifting greater than 10 pounds. No strenuous activity. May shower in 24 hours, no tub bath or soaking. Use incentive spirometer at home as directed. No Smoking Skin/Wound Care: You have special glue over your incision that will fall off on it's own. Place ice pack on 15 min and off 30 min and repeat for reducing swelling and discomfort. Symptoms to Report: Appetite Changes, Extremity Discoloration, Numbness/Tingling, Swelling Increased, Bleeding Excessive, Eyesight Changes, Pain Increased, Urine Color Change, Constipation(Persistent), Fever over 101 degree F, Pain/Pressure in chest, Urinating Difficulty, Cough Up/Vomit Blood, Heart Beat Irreg/Pounding, Pain/Pressure in jaw, Vaginal Bleeding Increase, Cramps in feet or legs, Lightheadedness, Pain/Pressure in shoulder, Diarrhea(Persistent), Memory Changes Suddenly, Questions/Concerns, Weight gain consecutive days, Dizziness/Fainting, Nausea/Vomiting, Shortness of Breath, Weight gain over 2 pounds If questions or concerns contact your physician Or seek help at emergency department. ADALGISA RICK DO May 13, 2020 11:57
--- NOTE | 2020-05-13 11:58 | Progress Note-Post Operative ---
Post-Operative Progess Note Surgeon (s)/Dough Puncher (s) Surgeon ADALGISA RICK DO Dough Puncher: na Pre-Operative Diagnosis malfunctioning port Post-Operative Diagnosis same Procedure & Operative Findings Date of Procedure 05/13/20 Procedure Performed/Findings left port removal with cut down, and right IJ u/s guided port placement Anesthesia Type mac c local Estimated Blood Loss Estimated blood loss (mL): minimal Specimens/Packing Specimens Removed na ADALGISA RICK DO May 13, 2020 11:58
--- NOTE | 2020-05-13 12:14 | Diagnostic Imaging Report ---
INDICATION: Port removal. Portable chest 11:52 AM FINDINGS: Right IJ Port-A-Cath tip projects over the SVC. Heart size and pulmonary vascularity are normal. There are no effusions or pneumothoraces. IMPRESSION: There has been interval removal of the left subclavian Port-A-Cath and interval placement of a right IJ Port-A-Cath with tip projecting over the SVC. Dictated by: Dictated on workstation # [id number]
--- NOTE | 2020-05-13 12:27 | Diagnostic Imaging Report ---
EXAMINATION: Fluoroscopy at 1042h. INDICATION: Port-A-Cath placement Fluoroscopic assistance was provided for Dr. Lupillo Torrez during his port catheter insertion. 31.9 seconds of fluoroscopy time was utilized. 2 spot films of the thorax were obtained. There is a Port-A-Cath in place on the right with the tip of the catheter overlying the mid/distal superior vena cava. A 2nd film was obtained over the left thorax. There is a linear radiopaque density projected over the left scapular. This is felt to be related to scapular spine and not to a foreign body. IMPRESSION: 1. Fluoroscopic assistance was provided for Dr. Torrez. 2. A follow-up chest exam is pending for further study. Dictated by: Dictated on workstation # [id number]
[2020-05-13] MEDS ORDERED: HYDR-4226 PO (12:46)
[2020-05-13] MEDS ORDERED: HYDROcodone/APAP 5 MG/325 MG (LORTAB) TAB PO ONE (13:00)
--- NOTE | 2020-05-13 15:25 | OPERATIVE REPORT ---
DATE OF SERVICE: 05/13/2020 PREOPERATIVE DIAGNOSIS: Malfunctioning port. POSTOPERATIVE DIAGNOSIS: Malfunctioning port. PROCEDURE PERFORMED: Left port removal with cut down and right internal jugular vein ultrasound-guided port placement. SURGEON: Adalgisa Torrez DO ANESTHESIA: MAC with local. ESTIMATED BLOOD LOSS: Minimal. COMPLICATIONS: None. INDICATIONS FOR PROCEDURE: The patient is a 60-year-old female with a longstanding malfunctioning port in the left chest. She understands risks and benefits of having it removed and also understands risks and benefits of having a new port placed. She understands risks and benefits of the procedure and wished to proceed with the procedure. Consent was signed in the chart. DESCRIPTION OF PROCEDURE: The patient was taken to the operating suite. She was prepped and draped in a sterile fashion. A timeout was performed. Local anesthetic was infiltrated around the port. A 15-blade scalpel was used to make a small skin incision over the existing scar and blunt dissection and cautery dissection was taken down to the port, which was then mobilized and freed. A gentle traction was placed on the port catheter for removal; however, this was not able to be removed. Hence, we are cutting down through the subcutaneous tissues and thin muscle was encountered. There were two areas, where the catheter was sutured in which appears to be old silk and these sutures were divided and then continued to be bluntly dissected cutting down through the pectoral muscle and continue to follow the catheter down to the level of the clavicle. This was continued to be mobilized posterior to the clavicle and traction was continued to be placed on the catheter, which then was able to be removed in its entirety. The wound was then irrigated with copious amounts of irrigation. Hemostasis was achieved. Subcutaneous tissues layered closure was performed using a 3-0 Vicryl and then the skin was then closed using 4-0 Monocryl in a subcuticular fashion. The area was then washed and dried and Skin Affix was placed over the incision. The new port was then placed under ultrasound guidance. The right neck ultrasound was used to locate the internal jugular vein. Local anesthetic was infiltrated above it. Using a micro access needle, the right internal jugular vein was then accessed under visualization of the ultrasound. Dark nonpulsatile blood was withdrawn. The guidewire was inserted and the needle was removed. Fluoroscopy assured proper placement. The 11-blade scalpel was used to make a small skin incision at the insertion point and the dilator was then advanced over the wire. The wire was removed and the guidewire was inserted through the sheath and the sheath was then removed. Fluoroscopy showed proper placement. The wire was then secured. Local anesthetic was infiltrated along the neck down on to the right chest for tunneling purposes and also creation of the right chest pocket. A 15-blade scalpel was used to make a small skin incision and a pocket was created on the right chest. Dilator was then advanced over the guidewire and the dilator and wire were removed, all under fluoroscopy. The catheter was inserted through the sheath and the sheath was then removed. The catheter was then tunneled from the insertion point down to the pocket created on the right chest, which was then cut to length and attached to the port and placed within the pocket. The port was then accessed without difficulty and then flushed without difficulty with saline and then heparin. The subcutaneous tissues were then reapproximated using 3-0 Vicryl. Skin was then closed using Skin Affix after it was washed and dried. The insertion point incision was also closed with Skin Affix. The patient tolerated the procedure well without any complications. She was taken to recovery room in stable condition. Chest x-ray pending. Job ID: [id number] DocumentID: [id number] Dictated Date: 05/13/2020 14:53:29 Chemical Supervisor Date: 05/13/2020 15:24:58 Dictated By: ADALGISA TORREZ DO
== END 2020-05-13 13:23 | disposition home or self-care (01) ==
LOC: SDC 07:22
PROVIDERS: ATTEND Surgery
DX: T82.594A Other mechanical complication of infusion catheter, initial encounter (principal); Z88.2 Allergy status to sulfonamides; Z88.8 Allergy status to other drugs, medicaments and biological substances; I10 Essential (primary) hypertension; G43.909 Migraine, unspecified, not intractable, without status migrainosus; F41.9 Anxiety disorder, unspecified; E03.9 Hypothyroidism, unspecified; E11.42 Type 2 diabetes mellitus with diabetic polyneuropathy; Z79.899 Other long term (current) drug therapy; Z79.891 Long term (current) use of opiate analgesic; Z79.4 Long term (current) use of insulin; Z90.49 Acquired absence of other specified parts of digestive tract; C91.10 Chronic lymphocytic leukemia of B-cell type not having achieved remission
CPT/HCPCS: 36561; 71045; 76000; 82962; 87081; C1788

== ENCOUNTER 2020-05-13 07:46 | Outpatient (CLI) | payer MEDICARE, MEDICAID ==
[2020-05-13 08:24] LABS: BASOPHILS # (AUTO) 0.1 10^3/uL (0.0-0.1); BASOPHILS % (AUTO) 1 % (0-10); EOSINOPHILS # (AUTO) 0.7 10^3/uL (0.0-0.3); EOSINOPHILS % (AUTO) 6 % (0-10); HEMATOCRIT 33 % (35-52); HEMOGLOBIN 11.1 G/DL (11.5-16.0); LYMPHOCYTES # (AUTO) 6.8 X 10^3 (1.0-4.0); LYMPHOCYTES % (AUTO) 62 % (12-44); MEAN CORPUSCULAR HEMOGLOBIN 30 PG (25-34); MEAN CORPUSCULAR HGB CONC 33 G/DL (32-36); MEAN CORPUSCULAR VOLUME 89 FL (80-99); MEAN PLATELET VOLUME 10.6 FL (7.4-10.4); MONOCYTES # (AUTO) 0.7 X 10^3 (0.0-1.0); MONOCYTES % (AUTO) 6 % (0-12); NEUTROPHILS # (AUTO) 2.7 X 10^3 (1.8-7.8); NEUTROPHILS % (AUTO) 25 % (42-75); PLATELET COUNT 207 10^3/uL (130-400); RED CELL DISTRIBUTION WIDTH 14.2 % (10.0-14.5)
[2020-05-13] MEDS ORDERED: inSUlin ASPART (NovoLOG) 1 UNIT/0.01 ML (CHARGE PER UNIT) ONE (08:27)
[2020-05-13 08:31] LABS: ALBUMIN 3.6 GM/DL (3.2-4.5); POTASSIUM 3.9 MMOL/L (3.6-5.0)
[2020-05-13 08:32] LABS: CALCIUM 8.4 MG/DL (8.5-10.1)
[2020-05-13 08:34] LABS: TOTAL PROTEIN 5.9 GM/DL (6.4-8.2)
[2020-05-13 08:35] LABS: BILIRUBIN,TOTAL 0.3 MG/DL (0.1-1.0)
[2020-05-13] MEDS ORDERED: MIDAZOLAM 2 MG/2 ML (VERSED) VIAL ONE ×2 (08:55→09:17)
[2020-05-13] MEDS ORDERED: HEParin (CENTRAL IV FLUSH) 500 UNIT/5 ML SYR ONE (09:16)
[2020-05-13] MEDS ORDERED: 0.9% SODIUM CHLORIDE PF INJ 20 ML VIAL ONE (09:16)
[2020-05-13] MEDS ORDERED: BUP/EPI 0.5% 1:200,000 (SENSORCAINE) 30 ML VIAL ONE (09:16)
[2020-05-13] MEDS ORDERED: fentaNYL INJECTION 100 MCG/2 ML AMP ONE (09:16)
[2020-05-13] MEDS ORDERED: proPOfol 200 MG/20 ML (DIPRIVAN) VIAL IV ONE ×2 (09:17→09:18)
[2020-05-13] MEDS ORDERED: PROPOFOL INJECTION 50 ML IV ONE ×3 (09:18→11:52)
[2020-05-13] MEDS ORDERED: ONDANSETRON 4 MG/2 ML (SDV) Z0FRAN ONE (09:22)
[2020-05-13] MEDS ORDERED: morphine INJ 10 MG/ML 1ML (SYR OR VIAL) ONE (11:46)
[2020-05-13] MEDS ORDERED: HYDR-4226 PO (12:46)
[2020-05-13] MEDS ORDERED: HYDROcodone/APAP 5 MG/325 MG (LORTAB) TAB ONE (12:49)
== END 2020-05-13 08:30 | disposition home or self-care (01) ==
LOC: SDC 07:46
PROVIDERS: ATTEND Internal Medicine
DX: C91.10 Chronic lymphocytic leukemia of B-cell type not having achieved remission (principal)
CPT/HCPCS: 36415; 80053; 83615; 85025

== ENCOUNTER → 2020-09-09 | Outpatient (CLI) | payer MEDICARE, MEDICAID ==
[~2020-09-09] MED LIST changes: +HYDR-4226 PO; +IOHEXOL 300 MG/ML 50 ML (OMNIPAQUE 300) VIAL IV ONE; -PANT40TA3 PO; +PANT40TA52 PO
--- NOTE | 2020-09-09 14:46 | Diagnostic Imaging Report ---
INDICATION: Malfunctioning right chest wall port. PROCEDURE: Patient was brought to the fluoroscopy suite and placed on table in the supine position. The right chest wall port was accessed. Preliminary radiograph demonstrates a right low IJ chest wall port with tip overlying the SVC. No definite kinking or interruption of the tubing is identified. Small amount of Omnipaque 300 contrast was injected during fluoroscopic observation. There is normal opacification of the chest wall port. There is free flow of contrast from the catheter tip into the right atrium. No abnormal collection of contrast or evidence of extravasation is seen. A total of 18 seconds of fluoroscopic time was utilized. IMPRESSION: Right chest wall port evaluation using contrast and fluoroscopic observation. No port malfunction is identified. Dictated by: Dictated on workstation # [id number]
== END ==
LOC: RAD 12:53
PROVIDERS: ATTEND Surgery
DX: Z45.018 Encounter for adjustment and management of other part of cardiac pacemaker (principal)
CPT/HCPCS: 36598

== ENCOUNTER → 2020-12-08 | Outpatient (CLI) | payer MEDICARE, MEDICAID ==
[~2020-12-08] MED LIST changes: -IOHEXOL 300 MG/ML 50 ML (OMNIPAQUE 300) VIAL IV ONE; -MONT10TA26 PO; +MONT10TA97 PO
--- NOTE | 2020-12-08 12:42 | Diagnostic Imaging Report ---
INDICATION: Routine screening. COMPARISON: 11/11/2019 and 12/29/2016. TECHNIQUE: 2D and 3D bilateral screening mammography was performed with CAD. FINDINGS: Scattered fibroglandular densities are identified bilaterally. Benign parenchymal and vascular calcifications are again noted bilaterally. No mass or malignant appearing microcalcifications are seen. The right axilla contains an Infusaport catheter. IMPRESSION: No mammographic features suspicious for malignancy are identified. ACR BI-RADS Category 2: Benign findings. Result letter will be mailed to the patient. Note: At least 10% of breast cancer is not imaged by mammography. Dictated by: Dictated on workstation # [id number]
== END ==
LOC: RAD 10:42
PROVIDERS: ATTEND Internal Medicine
DX: Z12.31 Encounter for screening mammogram for malignant neoplasm of breast (principal)
CPT/HCPCS: 77063; 77067

== ENCOUNTER → 2021-03-29 | Outpatient (CLI) | payer MEDICARE, MEDICAID ==
[~2021-03-29] MED LIST changes: -METO10TA3 PO; +MONT10TA32 PO; -MONT10TA97 PO; +MTC10T PO
[2021-03-29 13:27] VITALS: BP 169/96
== END ==
LOC: SDC 13:00 → EDSTATUS 13:02 → SDC 13:02
PROVIDERS: ATTEND Internal Medicine
DX: Z45.2 Encounter for adjustment and management of vascular access device (principal)
CPT/HCPCS: 96523

== ENCOUNTER → 2021-06-02 | Outpatient (CLI) | payer MEDICARE, MEDICAID ==
[~2021-06-02] MED LIST changes: +LIDO30CR TOP; -LIDO30CR20 TOP
[2021-06-02 14:25] VITALS: BP 181/88
== END ==
LOC: SDC 14:09
PROVIDERS: ATTEND Internal Medicine
DX: Z45.2 Encounter for adjustment and management of vascular access device (principal)
CPT/HCPCS: 96523

== ENCOUNTER 2021-08-01 13:15 | Outpatient (RCR) | payer MEDICARE, MEDICAID ==
[2021-06-28 14:50] VITALS: BP 145/87
[~2021-08-01] VITALS: Wt 63.6 kg
[~2021-08-01 13:15] MED LIST changes: +HEParin (CENTRAL IV FLUSH) 500 UNIT/5 ML SYR IV ONE; +SCOP1PAT10 TD; -SCOP1PAT11 TD
[2021-08-01 13:23] VITALS: BP 146/81
== END 2021-08-31 | disposition home or self-care (01) ==
LOC: SDC 13:15
PROVIDERS: ATTEND Internal Medicine
DX: Z45.2 Encounter for adjustment and management of vascular access device (principal)
CPT/HCPCS: 96523

== ENCOUNTER → 2021-10-18 | Outpatient (CLI) | payer MEDICARE, MEDICAID ==
[~2021-10-18] MED LIST changes: +CYCL10TA25 PO; -CYCL10TA9 PO; -HEParin (CENTRAL IV FLUSH) 500 UNIT/5 ML SYR IV ONE; -MAGN400T8 PO; +MONT-40 PO; -MONT10TA32 PO; +MULT-1054 PO; -MULT-985 PO; +TIZA-186 PO; -TIZA4TAB4 PO
--- NOTE | 2021-10-18 13:20 | Diagnostic Imaging Report ---
EXAMINATION: Left knee at 12:16 p.m. INDICATION: Knee pain. Three views were obtained. There are no prior studies available for comparison. FINDINGS: There is no fracture, dislocation, or acute bony abnormality evident. 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 The orthopedic hardware seems to be in good position. There is only mild degenerative disease involving the knee joint. The soft tissues are unremarkable. IMPRESSION: 1. There is no evidence for an acute bony abnormality. 2. There are postsurgical changes involving the proximal tibia. If previous exams are available, they would be helpful for comparison. Dictated by: Dictated on workstation # [id number]
== END ==
LOC: RAD 11:11
PROVIDERS: ATTEND Internal Medicine
DX: M25.562 Pain in left knee (principal); E10.9 Type 1 diabetes mellitus without complications; C91.10 Chronic lymphocytic leukemia of B-cell type not having achieved remission; E03.8 Other specified hypothyroidism; Z98.890 Other specified postprocedural states
CPT/HCPCS: 73562

== ENCOUNTER 2021-11-16 13:46 | Outpatient (RCR) | payer MEDICARE, MEDICAID ==
[2021-09-14 10:40] VITALS: BP 160/79
[2021-10-18 11:20] VITALS: BP 167/94
[~2021-11-16] VITALS: Ht 162 cm; Wt 63.6 kg
[2021-11-16 13:54] VITALS: BP 139/103
== END 2021-11-18 | disposition home or self-care (01) ==
LOC: SDC 13:46
PROVIDERS: ATTEND Internal Medicine
DX: Z45.2 Encounter for adjustment and management of vascular access device (principal)
CPT/HCPCS: 96523

== ENCOUNTER → 2021-12-16 | Outpatient (CLI) | payer MEDICARE, MEDICAID ==
--- NOTE | 2021-12-16 14:12 | Diagnostic Imaging Report ---
INDICATION: Routine screening. Comparison is made with prior mammogram from 12/08/2020 and 11/11/2019. 2-D and 3-D bilateral screening mammography was performed with CAD. Both breasts are heterogeneously dense, limiting the sensitivity of mammography. There are benign parenchymal and vascular calcifications bilaterally. No mass or malignant-appearing microcalcifications are seen. Chest wall port is located in the right axilla. IMPRESSION: No mammographic features suspicious for malignancy are identified. BI-RADS Category 2 ACR BI-RADS Category 2: Benign findings. Result letter will be mailed to the patient. Note: At least 10% of breast cancer is not imaged by mammography. Dictated by: Dictated on workstation # [id number]
== END ==
LOC: RAD 11:30
PROVIDERS: ATTEND Internal Medicine
DX: Z12.31 Encounter for screening mammogram for malignant neoplasm of breast (principal)
CPT/HCPCS: 77063; 77067

== ENCOUNTER → 2021-12-16 | Outpatient (CLI) | payer MEDICARE, MEDICAID ==
[~2021-12-16] MED LIST changes: +CATHETER FLUSH 10 ML SYR IV PRN
--- NOTE | 2021-12-16 16:51 | Diagnostic Imaging Report ---
INDICATION: Three-phase bone scan of the feet. TECHNIQUE: After intravenous administration of 24.7 mCi of technetium 99m MDP, three-phase bone scan of the feet was performed. Blood flow imaging acquired in the plantar acquisition. Blood pool imaging was acquired in plantar and lateral views. Delayed imaging was then obtained of both feet in both plantar and lateral positions. FINDINGS: The blood flow images demonstrate abnormal increased radionuclide accumulation of activity along the posterior aspect of the left foot surrounding the left calcaneus. There is also abnormal activity at that location on blood flow imaging and abnormal activity demonstrated within the posterior aspect of the calcaneus on the delayed bone phase. Three phase positivity at this location would suggest left posterior calcaneal osteomyelitis. Activity within the mid foot on the left on delayed imaging only is likely reflective of underlying arthritic uptake. IMPRESSION: 1. Three-phase positivity along the posterior aspect of the left calcaneus suggests left posterior calcaneal osteomyelitis. Dictated by: Dictated on workstation # [id number]
== END ==
LOC: CARD 11:50
PROVIDERS: ATTEND Podiatrist Foot & Ankle Surgery
DX: L97.429 Non-pressure chronic ulcer of left heel and midfoot with unspecified severity (principal)
CPT/HCPCS: 78315

== ENCOUNTER → 2021-12-30 | Outpatient (CLI) | payer MEDICARE, MEDICAID ==
[~2021-12-30] MED LIST changes: -CATHETER FLUSH 10 ML SYR IV PRN
--- NOTE | 2021-12-30 17:13 | Diagnostic Imaging Report ---
EXAMINATION: Magnetic resonance imaging of the left ankle without contrast. DATE: December 30, 2021. COMPARISON: Nuclear medicine bone scan December 16, 2021. HISTORY: 61-year-old female, ulcer of the left medial heel. Concern for osteomyelitis. History of diabetes. TECHNIQUE: Magnetic Resonance Imaging sequences were performed of the ankle without contrast. FINDINGS: TENDONS AND LIGAMENTS: The Achilles tendon is unremarkable. There is fluid in the tibialis posterior tendon sheath consistent with tenosynovitis. Additional evaluation of the posterior flexor tendons is unremarkable. The peroneal tendons - peroneus longus and peroneus brevis - are intact. The anterior extensor tendons - tibialis anterior, extensor hallucis longus and extensor digitorum longus tendons - are intact. The anterior and posterior syndesmotic ligaments are intact. The anterior talofibular, posterior talofibular, calcaneofibular and deltoid ligaments are intact. There is thickening and increased signal of the medial cord of the plantar fascia. There is minimal subcortical edema in the calcaneus at the plantar fascial attachment site. This potentially could reflect active plantar fasciitis. There is no identified tear of the plantar fascia. These findings are at the area of focal patient concern denoted by marker. JOINTS: The ankle mortise is intact. The subtalar and visualized joints of the mid-foot are intact. BONE: There is incompletely imaged hardware in the distal tibia with associated artifact. There is no acute fracture, bone contusion, or evidence of osteonecrosis. The talar dome is intact. There is no evidence of osteomyelitis. BURSAE AND SOFT TISSUES: There is mild irregularity of the contour of the skin surface posteriorly and medially at the level of the posterior calcaneus. There is no underlying focal fluid collection. IMPRESSION: 1. Thickening in the medial cord of the plantar fascia with minimal subcortical edema in the calcaneus at the plantar fascial attachment site which may relate to mild findings of active plantar fasciitis. This is at the marker denoting area of focal patient concern. 2. Slight skin contour abnormality posteriorly and medially near the level of the posterior margin of the calcaneus. No identified focal fluid collection or abscess. 3. No evidence of osteomyelitis. 4. Tenosynovitis of tibialis posterior. Dictated by: Dictated on workstation # [id number]
== END ==
LOC: RAD 13:15
PROVIDERS: ATTEND Podiatrist Foot & Ankle Surgery
DX: M65.872 Other synovitis and tenosynovitis, left ankle and foot (principal); M62.89 Other specified disorders of muscle; Z87.81 Personal history of (healed) traumatic fracture

== ENCOUNTER → 2022-02-16 | Outpatient (CLI) | payer MEDICARE, MEDICAID ==
[~2022-02-16] VITALS: Ht 165 cm; Wt 68.2 kg
[~2022-02-16] MED LIST changes: +ACETAMINOPHEN 500 MG TAB (TYLENOL) PO PRN; +EPINEPHrine INJECTION 1 MG/ML AMP IM PRN; +ONDANSETRON 4 MG/2 ML (SDV) Z0FRAN IV PRN; +SOTROVIMAB 500 MG/NS 50 ML IVPB IV ONE; +diphenhydrAMINE 50 MG/ML INJ (BENADRYL) IV PRN
[2022-02-16 09:05] VITALS: BP 140/78
== END ==
LOC: INFUSION 08:47
PROVIDERS: ATTEND Internal Medicine
DX: U07.1 COVID-19 (principal)

== ENCOUNTER → 2022-03-27 | Outpatient (CLI) | payer MEDICARE, MEDICAID ==
[~2022-03-27] MED LIST changes: -ACETAMINOPHEN 500 MG TAB (TYLENOL) PO PRN; -EPINEPHrine INJECTION 1 MG/ML AMP IM PRN; -ONDANSETRON 4 MG/2 ML (SDV) Z0FRAN IV PRN; -SOTROVIMAB 500 MG/NS 50 ML IVPB IV ONE; -diphenhydrAMINE 50 MG/ML INJ (BENADRYL) IV PRN
== END ==
LOC: WOUNDCARE 13:33
PROVIDERS: ATTEND Family Medicine
DX: E11.621 Type 2 diabetes mellitus with foot ulcer (principal); C91.11 Chronic lymphocytic leukemia of B-cell type in remission; L97.422 Non-pressure chronic ulcer of left heel and midfoot with fat layer exposed; E11.65 Type 2 diabetes mellitus with hyperglycemia; I70.244 Atherosclerosis of native arteries of left leg with ulceration of heel and midfoot
CPT/HCPCS: A6197; G0463; 99212

== ENCOUNTER → 2022-03-27 | Outpatient (CLI) | payer MEDICARE, MEDICAID ==
[~2022-03-27] VITALS: Ht 165.1 cm; Wt 70.9 kg
[2022-03-27 15:30] VITALS: BP 149/89
[2022-03-27 15:42] LABS: BASOPHILS # (AUTO) 0.1 10^3/uL (0.0-0.1); BASOPHILS % (AUTO) 1 % (0-10); EOSINOPHILS # (AUTO) 0.5 10^3/uL (0.0-0.3); EOSINOPHILS % (AUTO) 3 % (0-10); HEMATOCRIT 33 % (35-52); HEMOGLOBIN 11.4 g/dL (11.5-16.0); LYMPHOCYTES # (AUTO) 10.3 X 10^3 (1.0-4.0); LYMPHOCYTES % (AUTO) 66 % (12-44); MEAN CORPUSCULAR HEMOGLOBIN 31 pg (25-34); MEAN CORPUSCULAR HGB CONC 34 g/dL (32-36); MEAN CORPUSCULAR VOLUME 91 fL (80-99); MEAN PLATELET VOLUME 10.8 fL (9.0-12.2); MONOCYTES # (AUTO) 0.7 X 10^3 (0.0-1.0); MONOCYTES % (AUTO) 5 % (0-12); NEUTROPHILS # (AUTO) 3.9 X 10^3 (1.8-7.8); NEUTROPHILS % (AUTO) 25 % (42-75); PLATELET COUNT 199 10^3/uL (130-400); WHITE BLOOD COUNT 15.6 10^3/uL (4.3-11.0)
[2022-03-27 15:57] LABS: ALBUMIN 3.5 GM/DL (3.2-4.5); POTASSIUM 3.3 MMOL/L (3.6-5.0)
[2022-03-27 15:58] LABS: CALCIUM 8.2 MG/DL (8.5-10.1)
[2022-03-27 15:59] LABS: TOTAL PROTEIN 5.9 GM/DL (6.4-8.2)
[2022-03-27 16:01] LABS: BILIRUBIN,TOTAL 0.3 MG/DL (0.1-1.0)
[2022-03-27 16:03] LABS: CREATININE SERUM 0.99 MG/DL (0.60-1.30)
[2022-03-27 16:05] LABS: BAND NEUTROPHILS 0 %; BASOPHILS % (MANUAL) 1 %; EOSINOPHILS % (MANUAL) 1 %; LYMPHOCYTES % (MANUAL) 66 %; MONOCYTES % (MANUAL) 3 %; NEUTROPHILS % (MANUAL) 29 %
[2022-03-27 16:06] LABS: ERYTHROCYTE SEDIMENTATION RATE 10 MM/HR (0-30); RBC MORPH NORMAL
== END ==
LOC: LAB 14:52
PROVIDERS: ATTEND Family Medicine
DX: E11.621 Type 2 diabetes mellitus with foot ulcer (principal)
CPT/HCPCS: 36415; 36591; 80053; 85007; 85027; 85652; 86141

== ENCOUNTER → 2022-04-03 | Outpatient (CLI) | payer MEDICARE, MEDICAID | LOC: WOUNDCARE 12:07 | PROVIDERS: ATTEND Family Medicine | DX: E11.621 Type 2 diabetes mellitus with foot ulcer (principal); L97.422 Non-pressure chronic ulcer of left heel and midfoot with fat layer exposed; E11.65 Type 2 diabetes mellitus with hyperglycemia; I70.244 Atherosclerosis of native arteries of left leg with ulceration of heel and midfoot; C91.11 Chronic lymphocytic leukemia of B-cell type in remission; E11.52 Type 2 diabetes mellitus with diabetic peripheral angiopathy with gangrene; I96 Gangrene, not elsewhere classified | CPT/HCPCS: 11042; G0463 ==

== ENCOUNTER → 2022-04-10 | Outpatient (CLI) | payer MEDICARE, MEDICAID | LOC: WOUNDCARE 12:10 | PROVIDERS: ATTEND Family Medicine | DX: E11.621 Type 2 diabetes mellitus with foot ulcer (principal); L97.422 Non-pressure chronic ulcer of left heel and midfoot with fat layer exposed; C91.11 Chronic lymphocytic leukemia of B-cell type in remission; E11.65 Type 2 diabetes mellitus with hyperglycemia; I70.244 Atherosclerosis of native arteries of left leg with ulceration of heel and midfoot; E11.52 Type 2 diabetes mellitus with diabetic peripheral angiopathy with gangrene; I96 Gangrene, not elsewhere classified | CPT/HCPCS: 11042; A6212; G0463 ==

== ENCOUNTER → 2022-04-20 | Outpatient (CLI) | payer MEDICARE, MEDICAID | LOC: WOUNDCARE 13:27 | PROVIDERS: ATTEND Family Medicine | DX: L97.422 Non-pressure chronic ulcer of left heel and midfoot with fat layer exposed (principal); E11.621 Type 2 diabetes mellitus with foot ulcer; E11.65 Type 2 diabetes mellitus with hyperglycemia; I70.244 Atherosclerosis of native arteries of left leg with ulceration of heel and midfoot; C91.11 Chronic lymphocytic leukemia of B-cell type in remission; E11.52 Type 2 diabetes mellitus with diabetic peripheral angiopathy with gangrene | CPT/HCPCS: 11042; G0463 ==

== ENCOUNTER → 2022-04-24 | Outpatient (CLI) | payer MEDICARE, MEDICAID | LOC: WOUNDCARE 12:14 | PROVIDERS: ATTEND Family Medicine | DX: L97.422 Non-pressure chronic ulcer of left heel and midfoot with fat layer exposed (principal); E11.621 Type 2 diabetes mellitus with foot ulcer; E11.65 Type 2 diabetes mellitus with hyperglycemia; I70.244 Atherosclerosis of native arteries of left leg with ulceration of heel and midfoot; C91.11 Chronic lymphocytic leukemia of B-cell type in remission | CPT/HCPCS: 11042; A6207; G0463 ==

== ENCOUNTER → 2022-04-24 | Outpatient (CLI) | payer MEDICARE, MEDICAID ==
[~2022-04-24] VITALS: Ht 165.1 cm; Wt 70.9 kg
[2022-04-24 14:00] VITALS: BP 164/84
== END ==
LOC: SDC 13:33
PROVIDERS: ATTEND Internal Medicine
DX: Z45.2 Encounter for adjustment and management of vascular access device (principal)
CPT/HCPCS: 96523

== ENCOUNTER → 2022-04-26 | Outpatient (CLI) | payer MEDICARE, MEDICAID | LOC: WOUNDCARE 10:41 | PROVIDERS: ATTEND Family Medicine | DX: E11.621 Type 2 diabetes mellitus with foot ulcer (principal); C91.11 Chronic lymphocytic leukemia of B-cell type in remission; L97.422 Non-pressure chronic ulcer of left heel and midfoot with fat layer exposed; E11.65 Type 2 diabetes mellitus with hyperglycemia; E11.52 Type 2 diabetes mellitus with diabetic peripheral angiopathy with gangrene; I96 Gangrene, not elsewhere classified; I70.244 Atherosclerosis of native arteries of left leg with ulceration of heel and midfoot | CPT/HCPCS: 29445; G0463 ==

== ENCOUNTER → 2022-05-01 | Outpatient (CLI) | payer MEDICARE, MEDICAID | LOC: WOUNDCARE 12:28 | PROVIDERS: ATTEND Family Medicine | DX: E11.621 Type 2 diabetes mellitus with foot ulcer (principal); L97.422 Non-pressure chronic ulcer of left heel and midfoot with fat layer exposed; E11.65 Type 2 diabetes mellitus with hyperglycemia; I70.244 Atherosclerosis of native arteries of left leg with ulceration of heel and midfoot; C91.11 Chronic lymphocytic leukemia of B-cell type in remission | CPT/HCPCS: 11042; G0463 ==

== ENCOUNTER → 2022-05-08 | Outpatient (CLI) | payer MEDICARE, MEDICAID | LOC: WOUNDCARE 12:23 | PROVIDERS: ATTEND Family Medicine | DX: E11.621 Type 2 diabetes mellitus with foot ulcer (principal); L97.422 Non-pressure chronic ulcer of left heel and midfoot with fat layer exposed; E11.65 Type 2 diabetes mellitus with hyperglycemia; I70.244 Atherosclerosis of native arteries of left leg with ulceration of heel and midfoot; C91.11 Chronic lymphocytic leukemia of B-cell type in remission | CPT/HCPCS: A6212; G0463; 99212 ==

== ENCOUNTER → 2022-06-05 | Outpatient (CLI) | payer MEDICARE, MEDICAID | LOC: WOUNDCARE 13:01 | PROVIDERS: ATTEND Family Medicine | DX: E11.621 Type 2 diabetes mellitus with foot ulcer (principal); C91.11 Chronic lymphocytic leukemia of B-cell type in remission; E11.65 Type 2 diabetes mellitus with hyperglycemia; E11.52 Type 2 diabetes mellitus with diabetic peripheral angiopathy with gangrene; D46.4 Refractory anemia, unspecified; L97.422 Non-pressure chronic ulcer of left heel and midfoot with fat layer exposed; I96 Gangrene, not elsewhere classified | CPT/HCPCS: 11042; A6197; G0463 ==

== ENCOUNTER → 2022-06-12 | Outpatient (CLI) | payer MEDICARE, MEDICAID | LOC: WOUNDCARE 12:13 | PROVIDERS: ATTEND Family Medicine | DX: L97.422 Non-pressure chronic ulcer of left heel and midfoot with fat layer exposed (principal); E11.621 Type 2 diabetes mellitus with foot ulcer; E11.65 Type 2 diabetes mellitus with hyperglycemia; C91.11 Chronic lymphocytic leukemia of B-cell type in remission; D46.4 Refractory anemia, unspecified; E11.52 Type 2 diabetes mellitus with diabetic peripheral angiopathy with gangrene; I96 Gangrene, not elsewhere classified | CPT/HCPCS: 11042; A6207; G0463 ==

== ENCOUNTER → 2022-06-14 | Outpatient (CLI) | payer MEDICARE, MEDICAID | LOC: WOUNDCARE 15:07 | PROVIDERS: ATTEND Family Medicine | DX: I96 Gangrene, not elsewhere classified (principal); C91.11 Chronic lymphocytic leukemia of B-cell type in remission; L97.422 Non-pressure chronic ulcer of left heel and midfoot with fat layer exposed; E11.621 Type 2 diabetes mellitus with foot ulcer; E11.65 Type 2 diabetes mellitus with hyperglycemia; E11.52 Type 2 diabetes mellitus with diabetic peripheral angiopathy with gangrene; D46.4 Refractory anemia, unspecified | CPT/HCPCS: 29445; G0463 ==

== ENCOUNTER → 2022-06-14 | Outpatient (CLI) | payer MEDICARE, MEDICAID ==
--- NOTE | 2022-06-14 17:00 | Diagnostic Imaging Report ---
INDICATION: Left knee pain 3 views of left knee show the presence of a long intramedullary irais left femoral shaft. The irais is remote from the articular surface. There is no acute fracture or dislocation. Joint spaces well maintained. There are no appreciable effusion. IMPRESSION: No acute abnormality seen in the left knee. Dictated by: Dictated on workstation # [id number]
== END ==
LOC: RAD 14:48
PROVIDERS: ATTEND Internal Medicine
DX: M25.562 Pain in left knee (principal); Z20.822 Contact with and (suspected) exposure to COVID-19
CPT/HCPCS: 73562

== ENCOUNTER → 2022-06-21 | Outpatient (CLI) | payer MEDICARE, MEDICAID | LOC: WOUNDCARE 12:32 | PROVIDERS: ATTEND Family Medicine | DX: E11.621 Type 2 diabetes mellitus with foot ulcer (principal); C91.11 Chronic lymphocytic leukemia of B-cell type in remission; L97.422 Non-pressure chronic ulcer of left heel and midfoot with fat layer exposed; E11.65 Type 2 diabetes mellitus with hyperglycemia; D46.4 Refractory anemia, unspecified; E11.52 Type 2 diabetes mellitus with diabetic peripheral angiopathy with gangrene; I96 Gangrene, not elsewhere classified | CPT/HCPCS: 11042; G0463 ==

== ENCOUNTER → 2022-06-28 | Outpatient (CLI) | payer MEDICARE, MEDICAID | LOC: WOUNDCARE 14:23 | PROVIDERS: ATTEND Family Medicine | DX: L97.422 Non-pressure chronic ulcer of left heel and midfoot with fat layer exposed (principal); E11.621 Type 2 diabetes mellitus with foot ulcer; E11.65 Type 2 diabetes mellitus with hyperglycemia; C91.11 Chronic lymphocytic leukemia of B-cell type in remission; D46.4 Refractory anemia, unspecified; R26.89 Other abnormalities of gait and mobility; E11.52 Type 2 diabetes mellitus with diabetic peripheral angiopathy with gangrene | CPT/HCPCS: 11042; A6207; G0463 ==

== ENCOUNTER → 2022-06-30 | Outpatient (CLI) | payer MEDICARE, MEDICAID | LOC: WOUNDCARE 10:59 | PROVIDERS: ATTEND Family Medicine | DX: L97.422 Non-pressure chronic ulcer of left heel and midfoot with fat layer exposed (principal); E11.621 Type 2 diabetes mellitus with foot ulcer; E11.65 Type 2 diabetes mellitus with hyperglycemia; C91.11 Chronic lymphocytic leukemia of B-cell type in remission; D46.4 Refractory anemia, unspecified; E11.52 Type 2 diabetes mellitus with diabetic peripheral angiopathy with gangrene; R26.89 Other abnormalities of gait and mobility | CPT/HCPCS: 29445; G0463 ==

== ENCOUNTER → 2022-07-05 | Outpatient (CLI) | payer MEDICARE, MEDICAID | LOC: WOUNDCARE 14:29 | PROVIDERS: ATTEND Family Medicine | DX: L97.422 Non-pressure chronic ulcer of left heel and midfoot with fat layer exposed (principal); E11.621 Type 2 diabetes mellitus with foot ulcer; E11.65 Type 2 diabetes mellitus with hyperglycemia; C91.11 Chronic lymphocytic leukemia of B-cell type in remission; D46.4 Refractory anemia, unspecified; R26.89 Other abnormalities of gait and mobility | CPT/HCPCS: 11042; G0463 ==

== ENCOUNTER → 2022-07-12 | Outpatient (CLI) | payer MEDICARE, MEDICAID | LOC: WOUNDCARE 15:45 | PROVIDERS: ATTEND Family Medicine | DX: L97.422 Non-pressure chronic ulcer of left heel and midfoot with fat layer exposed (principal); E11.621 Type 2 diabetes mellitus with foot ulcer; E11.65 Type 2 diabetes mellitus with hyperglycemia; R26.89 Other abnormalities of gait and mobility; C91.11 Chronic lymphocytic leukemia of B-cell type in remission; D46.4 Refractory anemia, unspecified | CPT/HCPCS: 29445; G0463 ==

== ENCOUNTER → 2022-07-18 | Outpatient (CLI) | payer MEDICARE, MEDICAID | LOC: WOUNDCARE 12:26 | PROVIDERS: ATTEND Family Medicine | DX: E11.621 Type 2 diabetes mellitus with foot ulcer (principal); C91.11 Chronic lymphocytic leukemia of B-cell type in remission; E11.65 Type 2 diabetes mellitus with hyperglycemia; L97.422 Non-pressure chronic ulcer of left heel and midfoot with fat layer exposed; D46.4 Refractory anemia, unspecified | CPT/HCPCS: 99212 ==

== ENCOUNTER 2022-07-29 15:08 | Emergency (ER) | payer MEDICARE, MEDICAID ==
[~2022-07-29] VITALS: Ht 165.1 cm; Wt 70.3 kg
--- NOTE | 2022-07-29 15:43 | ED Lower Extremity ---
General Chief Complaint: Lower Extremity Stated Complaint: FALL/LEFT INJURY Nursing Triage Note: PT AMB TO RM 4 WITH . PT STATED THAT SHE TRIPPED ON A CHAIR LAST SUNDAY AND HAS HAD LEFT FOOT PAIN SINCE. Source: patient Exam Limitations: no limitations (CONNIE DENIS APRN) History of Present Illness Date Seen by Provider: Jul 29, 2022 Time Seen by Provider: 13:37 Initial Comments Patient reports that she fell about a week ago after tripping on a chair. Has had right lower leg and left ankle and foot pain. Has spent most of the week in her recliner. Wore a walking boot today to assist with ambulation. Is concerned that she could have broke something because she is still having pain. Denies LOC or any other injuries. Onset: last week Pain/Injury Location: right leg; left foot, left ankle Method of Injury: fell Modifying Factors: Improves With Immobilization; Worse With Movement; Improves With Pain Medication (CONNIE DENIS APRN) Allergies and Home Medications Allergies Coded Allergies: metoclopramide (Verified Allergy, Severe, INVOLUNTARY MOVEMENTS, 05/06/20) Sulfa (Sulfonamide Antibiotics) (Verified Allergy, Mild, HIVES, 05/06/20) Patient Home Medication List Home Medication List Reviewed: Yes (CONNIE DENIS APRN) Home Medication List Reviewed: Yes (SWAPNA ARDON MD) Alprazolam (Alprazolam) 1 Mg Tablet, 1 MG PO Q8H, (Reported) Entered as Reported by: CHAU KNOX on 10/27/15 0830 Atorvastatin Calcium (Atorvastatin Calcium) 40 Mg Tablet, 40 MG PO HS, (Reported) Entered as Reported by: CHAU KNOX on 10/27/15 0830 Carbamazepine (Tegretol Xr) 200 Mg Tab.er.12h, 200 MG PO BID, (Reported) Entered as Reported by: RACIEL NICHOLSON on 05/06/20 1030 Cetirizine HCl (Allergy Relief) 10 Mg Tablet, 10 MG PO DAILY, (Reported) Entered as Reported by: CHAU KNOX on 04/22/18 0946 Cholecalciferol (Vitamin D3) (Vitamin D3) 125 Mcg Capsule, 125 MCG PO DAILY, (Reported) Entered as Reported by: RACIEL NICHOLSON on 05/06/20 1030 Cyclobenzaprine HCl (Cyclobenzaprine HCl) 10 Mg Tablet, 10 MG PO ACHS, (Reported) Entered as Reported by: RACIEL NICHOLSON on 05/06/20 1030 Docusate Sodium (Docusate Sodium) 100 Mg Capsule, 100 MG PO BID, (Reported) Entered as Reported by: RACIEL NICHOLSON on 05/06/20 1030 Ferrous Gluconate (Fergon) 240 Mg Tablet, 240 MG PO DAILY, (Reported) Entered as Reported by: RACIEL NICHLOSON on 05/06/20 1030 Fesoterodine Fumarate (Toviaz) 4 Mg Tab.sr.24h, 4 MG PO DAILY, (Reported) Entered as Reported by: RACIEL NICHOLSON on 05/06/20 1030 Fludrocortisone Acetate (Fludrocortisone Acetate) 0.1 Mg Tab, 0.1 MG PO DAILY, (Reported) Entered as Reported by: RACIEL NICHOLSON on 05/06/20 1030 Fluticasone Propionate (Flonase Allergy Relief) 9.9 Ml [place].susp, 1 SPRAY NS DAILY, (Reported) Entered as Reported by: RACIEL NICHOLSON on 05/06/20 1030 Hydrocodone/Acetaminophen (Hydrocodone/Acetaminophen 5 MG/325 MG TAB) 1 Each Tablet, 1 TAB PO Q4-6HR Prescribed by: ADALGISA RICK on 05/13/20 1246 Insulin Aspart (Novolog Flexpen) 300 Units/3 Ml Solution, 7 UNITS SQ AC, (Reported) Entered as Reported by: RACIEL NICHOLSON on 05/06/20 1030 Insulin Degludec (Tresiba Flextouch U-100) 100 Unit/1 Ml Insuln.pen, 14 UNITS SQ HS, (Reported) Entered as Reported by: KJ LANGE on 09/04/17 1606 Levothyroxine Sodium (Levothyroxine Sodium) 175 Mcg Tablet, 175 MCG PO DAILY, (Reported) Entered as Reported by: CHAU KNOX on 04/22/18 0946 Lipase/Protease/Amylase (Russel Newton 36,000 Units Capsule) 1 Each Capsule.dr, 2 EACH PO TIDAC, (Reported) Entered as Reported by: RACIEL NICHOLSON on 05/06/20 1030 Montelukast Sodium (Montelukast Sodium) 10 Mg Tablet, 10 MG PO DAILY, (Reported) Entered as Reported by: CHAU KNOX on 10/27/15 0830 Nortriptyline HCl (Nortriptyline HCl) 25 Mg Capsule, 75 MG PO HS, (Reported) Entered as Reported by: CHAU KNOX on 04/22/18 0946 Onabotulinumtoxina (Botox) 100 Unit Vial, 100 UNIT IJ Q 3MO PRN for HEADACHE, (Reported) Entered as Reported by: RACIEL NICHOLSON on 05/06/20 1030 Ondansetron (Ondansetron Odt) 4 Mg Tab.rapdis, 8 MG PO Q6H PRN for NAUSEA/VOMITING Prescribed by: CARA LEWIS on 05/17/18 210 Pantoprazole Sodium (Pantoprazole Sodium) 40 Mg Tablet.dr, 40 MG PO DAILY, (Reported) Entered as Reported by: CHAU KNOX on 10/27/15 0830 Potassium Chloride (Potassium Chloride) 20 Meq Tablet.er, 20 MEQ PO DAILY, (Reported) Entered as Reported by: RACIEL NICHOLSON on 05/06/20 1030 Pregabalin (Lyrica) 150 Mg Capsule, 150 MG PO BID, (Reported) Entered as Reported by: JHONNY MERCER on 09/03/17 1206 Rizatriptan Benzoate (Maxalt) 10 Mg Tablet, 10 MG PO PRN PRN for HEADACHE, (Reported) Entered as Reported by: RACIEL NICHOLSON on 05/06/20 1030 Scopolamine (Transderm-Scop) 1 Each Patch.td72, 1 EACH TD Q72H PRN for NAUSEA/VOMITING, (Reported) Entered as Reported by: RACIEL NICHOLSON on 05/06/20 1030 Tizanidine HCl (Zanaflex) 4 Mg Capsule, 4-8 MG PO TID PRN for SPASMS, (Reported) Entered as Reported by: RACIEL NICHOLSON on 05/06/20 1030 Ubidecarenone/Vit E Acetate (Co Q-10 100 mg Softgel) 1 Each Capsule, 1 EACH PO BID, (Reported) Entered as Reported by: RACIEL NICHOLSON on 05/06/20 1030 Vitamin B Complex (Vitamin B Complex) 1 Each Capsule, 1 EACH PO DAILY, (Reported) Entered as Reported by: RACIEL NICHOLSON on 05/06/20 1030 Zolpidem Tartrate (Ambien) 10 Mg Tablet, 10 MG PO HS, (Reported) Entered as Reported by: RACIEL NICHOLSON on 05/06/20 1030 [Domperidone] , 10 MG PO TIDAC, (Reported) Entered as Reported by: RACIEL NICHOLSON on 05/06/20 1030 Review of Systems Constitutional: no symptoms reported, see HPI Respiratory: no symptoms reported Cardiovascular: no symptoms reported Musculoskeletal: No back pain; joint pain (left foot and ankle, right lower leg pain), joint swelling (left foot and ankle) Skin: No lesions, No pruritus, No rash (CONNIE DENIS APRN) All Other Systems Reviewed Negative Unless Noted: Yes (CONNIE DENIS APRN) Past Yubegxw-Lukelj-Yourjq Hx Patient Social History Tobacco Use?: No Substance use?: No Alcohol Use?: No (CONNIE DENIS APRN) Immunizations Up To Date Tetanus Booster (TDap): More than 5yrs PED Vaccines UTD: Yes Influenza Vaccine Up-to-Date: Yes; Up-to-Date (CONNIE DENIS APRN) Seasonal Allergies Seasonal Allergies: Yes (CONNIE DENIS APRN) Past Medical History Surgeries: Yes (PORT,CARPAL TUNNEL, R.HIP, BILAT SHOULDER SURGERY, L LEG MARIO, R ANKLE) Eye Surgery, Gallbladder, Hysterectomy, Orthopedic, Vascular Surgery Respiratory: Yes (DOESN'T USE INHALERS) Asthma Currently Using CPAP: No Currently Using BIPAP: No Cardiac: Yes High Cholesterol, Hypertension Neurological: Yes Concussion, Headaches /Migraines, Neuropathy, Seizure Disorder, Traumatic Brain Injury Reproductive Disorders: No Female Reproductive Disorders: Denies 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 CHRONIC ABDOMINAL PAIN.) Ulcer Musculoskeletal: Yes Arthritis Endocrine: Yes (ADRENAL DISEASE-ADDISONS ) Diabetes, Insulin dep, Hypothyroidsim HEENT: Yes (GLASSES) Chronic Ear Infection Loss of Vision: Denies Hearing Impairment: Denies Cancer: Yes (CLL LEUKEMIA) Leukemia Did You Recieve Any Treatments: Yes Psychosocial: Yes Anxiety, Depression Integumentary: No Blood Disorders: No Adverse Reaction/Blood Tranf: No (N/A) (CONNIE DENIS APRN) Family Medical History Reviewed Nursing Family Hx (CONNIE DENIS APRN) Alcoholism 09 BROTHER Cancer 03 MOTHER (PANCREATIC CA) Myocardial infarction 03 MOTHER Cancer (CONNIE DENIS APRN) Physical Exam Vital Signs Vital Signs - First Documented 07/29/22 15:15 Temp 36.0 Pulse 103 Resp 16 B/P (MAP) 147/94 (111) Pulse Ox 96 O2 Delivery Room Air (SWAPNA ARDON MD) Vital Signs Capillary Refill : Less Than 3 Seconds (CONNIE DENIS APRN) Height, Weight, BMI Height: 5'5.00" Weight: 125lbs. 0.0oz. 56.957558do; 25.00 BMI Method:Stated General Appearance: WD/WN, no apparent distress Neck: non-tender, full range of motion, supple, normal inspection Cardiovascular: normal peripheral pulses, regular rate, rhythm, no edema Respiratory: chest non-tender, lungs clear, normal breath sounds Back: normal inspection, no CVA tenderness, no vertebral tenderness Legs: right leg normal inspection, right leg normal range of motion, right leg pain Knees: bilateral knee non-tender Ankles: right ankle non-tender, right ankle no evidence of injury; left ankle pain, left ankle soft tissue tenderness, left ankle swelling, left ankle other (2+ pedal pulses bilaterally) Feet: left foot pain, left foot soft tissue tenderness, left foot swelling Neurologic/Tendon: normal sensation Neurologic/Psychiatric: alert, normal mood/affect, oriented x 3 Skin: normal color, warm/dry (CONNIE DENIS APRN) Progress/Results/Core Measures Results/Orders Vital Signs/I&O 07/29/22 07/29/22 15:15 16:37 Temp 36.0 Pulse 103 95 Resp 16 B/P (MAP) 147/94 (111) 167/85 Pulse Ox 96 95 O2 Delivery Room Air Room Air (SWAPNA ARDON MD) Blood Pressure Mean: 111 Progress Progress Note : Progress Note Patient with injury a week ago to bilateral lower extremities. Has been able to ambulate but is still having left foot/ankle swelling and tenderness. Concerned that it could be fractured. Is also having some right lower leg pain. Will obtain XR and further plan of care will be made off results of XR. 1623: Spoke to patient and in regards to XR. No acute fractures were appreciated. Discussed home treatment with patient and reasons to return to the ER. Instructed that she could continue to wear walking boot as needed for comfort. Reasons to return to the ER were discussed with patient in addition. (CONNIE DENIS APRN) Diagnostic Imaging Diagonstic Imaging: Xray Plain Films/CT/US/NM/MRI: ankle Comments NAME: [facility] REC#: [id number] PT STATUS: REG ER : 1960 PHYSICIAN: CONNIE DENIS APRN ADMIT DATE: 07/29/22/ER Draft Date of Exam:07/29/22 ANKLE, LEFT, 3 VIEWS INDICATION: Ankle pain. EXAMINATION: Three views were obtained. FINDINGS: The alignment is normal. There is an intramedullary mario in the left tibial diaphysis. There are some degenerative changes of the distal syndesmosis. Plafonds and talar dome are intact. Ankle mortise is symmetric. There is no acute fracture or dislocation. IMPRESSION: 1. Postsurgical changes and degenerative changes in the distal left tibiofibular syndesmotic joint. 2. No acute fracture or dislocation. Dictated on workstation # [id number] Dict: 07/29/22 1607 Trans: 07/29/22 1612 [facility] [id number] Interpreted by: JAN LAGUNAS MD Electronically signed by: Diagonstic Imaging: Xray Plain Films/CT/US/NM/MRI: other (left foot) Comments NAME: [facility]ALL[facility] REC#: [id number] PT STATUS: REG ER : 1960 PHYSICIAN: CONNIE DENIS APRN ADMIT DATE: 07/29/22/ER Draft Date of Exam:07/29/22 FOOT, LEFT, 3 VIEWS INDICATION: Fall. COMPARISON: Prior examination from 07/29/2022. FINDINGS: The bones are somewhat osteopenic. There is no fracture or dislocation. Soft tissues are unremarkable. There are mild degenerative changes. IMPRESSION: Osteopenia and mild degenerative change; however, no acute fracture or dislocation. Dictated on workstation # [id number] Dict: 07/29/22 1614 Trans: 07/29/221616 [facility] [id number] Interpreted by: JAN LAGUNAS MD Electronically signed by: Mary Imaging: Xray Plain Films/CT/US/NM/MRI: other (right tibula/fibula) Comments NAME: [facility] REC#: [id number] PT STATUS: REG ER : 1960 PHYSICIAN: CONNIE DENIS APRN ADMIT DATE: 07/29/22/ER Signed Date of Exam:07/29/22 TIBIA/FIBULA, RIGHT, 2 VIEWS INDICATION: Fall with pain. EXAMINATION: Two views of the right tibia and fibula were performed. FINDINGS: The alignment is normal. There is no fracture or dislocation. The plafond's and talar dome are intact. Ankle mortise is symmetric. IMPRESSION: No acute fracture or dislocation. Dictated by: Dictated on workstation # [id number] Dict: 07/29/22 1615 Trans: 07/29/221619 [facility] [id number] Interpreted by: JAN LAGUNAS MD Electronically signed by: JAN LAGUNAS MD 07/29/221619 (CONNIE DENIS APRN) Departure Impression Primary Impression: Contusion of ankle Qualified Codes: S90.02XA - Contusion of left ankle, initial encounter Additional Impressions: Contusion of foot Qualified Codes: S90.32XA - Contusion of left foot, initial encounter Contusion of leg, right Qualified Codes: S80.11XA - Contusion of right lower leg, initial encounter Disposition: 01 HOME, SELF-CARE Condition: Stable Departure-Patient Inst. Decision time for Depature: 16:28 (CONNIE DENIS APRN) Referrals: RUBIO MEZA DO (PCP/Family) Primary Care Physician Patient Instructions: Contusion (DC), Ankle Sprain ED Add. Discharge Instructions: 1. Home and rest. 2. Push fluids. 3. Alternate Tylenol/Ibuprofen as needed for pain. 4. Ice and elevate. 5. Follow up with PCP as needed. 6. Return here if worse or concerns. 7. Weight bearing as tolerated. All discharge instructions reviewed with patient and/or family. Voiced understanding. ATTENDING NOTE: I was attending physician physically present and available for consultation in the emergency department during the care of this patient. I was not directly involved in the delivery of care or decision making process for this patient during this specific encounter. (SWAPNA ARDON MD) CONNIE DENIS APRN Jul 29, 2022 15:43 SWAPNA ARDON MD Jul 29, 2022 19:01
--- NOTE | 2022-07-29 16:14 | Diagnostic Imaging Report ---
INDICATION: Ankle pain. EXAMINATION: Three views were obtained. FINDINGS: The alignment is normal. There is an intramedullary irais in the left tibial diaphysis. There are some degenerative changes of the distal syndesmosis. Plafonds and talar dome are intact. Ankle mortise is symmetric. There is no acute fracture or dislocation. IMPRESSION: 1. Postsurgical changes and degenerative changes in the distal left tibiofibular syndesmotic joint. 2. No acute fracture or dislocation. Dictated by: Dictated on workstation # [id number]
--- NOTE | 2022-07-29 16:18 | Diagnostic Imaging Report ---
INDICATION: Fall. COMPARISON: Prior examination from 07/29/2022. FINDINGS: The bones are somewhat osteopenic. There is no fracture or dislocation. Soft tissues are unremarkable. There are mild degenerative changes. IMPRESSION: Osteopenia and mild degenerative change; however, no acute fracture or dislocation. Dictated by: Dictated on workstation # [id number]
--- NOTE | 2022-07-29 16:19 | Diagnostic Imaging Report ---
INDICATION: Fall with pain. EXAMINATION: Two views of the right tibia and fibula were performed. FINDINGS: The alignment is normal. There is no fracture or dislocation. The plafond's and talar dome are intact. Ankle mortise is symmetric. IMPRESSION: No acute fracture or dislocation. Dictated by: Dictated on workstation # [id number]
[2022-07-29 16:37] VITALS: BP 167/85
== END 2022-07-29 16:37 | disposition home or self-care (01) ==
LOC: EDUNIT# 15:08 → ER 15:11
DX: S90.02XA Contusion of left ankle, initial encounter (principal); S90.32XA Contusion of left foot, initial encounter; S80.11XA Contusion of right lower leg, initial encounter; W01.0XXA Fall on same level from slipping, tripping and stumbling without subsequent striking against object, initial encounter
CPT/HCPCS: 73590; 73610; 73630

== ENCOUNTER 2022-08-29 15:02 | Outpatient (RCR) | payer MEDICARE, MEDICAID ==
[~2022-08-29] VITALS: Ht 165 cm; Wt 70.3 kg
[~2022-08-29 15:02] MED LIST changes: +RIZA-1 PO
[2022-08-29 15:35] VITALS: BP 178/91
[2022-08-29 16:00] LABS: POTASSIUM 3.8 MMOL/L (3.6-5.0)
[2022-08-29 16:01] LABS: CALCIUM 8.6 MG/DL (8.5-10.1)
[2022-08-29 16:06] LABS: CREATININE SERUM 1.19 MG/DL (0.60-1.30)
== END 2022-09-18 | disposition home or self-care (01) ==
LOC: SDC 15:02
PROVIDERS: ATTEND Internal Medicine
DX: Z45.2 Encounter for adjustment and management of vascular access device (principal); I10 Essential (primary) hypertension; E10.9 Type 1 diabetes mellitus without complications
CPT/HCPCS: 36415; 36591; 80048; 83036

== ENCOUNTER 2022-09-26 10:51 | Outpatient (RCR) | payer MEDICARE, MEDICAID ==
[~2022-09-26] VITALS: Ht 165 cm; Wt 70.3 kg
[2022-09-26 11:23] VITALS: BP 177/80
== END 2022-10-18 | disposition home or self-care (01) ==
LOC: SDC 10:51
PROVIDERS: ATTEND Internal Medicine
DX: Z45.2 Encounter for adjustment and management of vascular access device (principal)
CPT/HCPCS: 96523

== ENCOUNTER → 2022-09-27 | Outpatient (CLI) | payer MEDICARE, MEDICAID | LOC: WOUNDCARE 12:50 | PROVIDERS: ATTEND Family Medicine | DX: L89.623 Pressure ulcer of left heel, stage 3 (principal); E11.621 Type 2 diabetes mellitus with foot ulcer; E11.65 Type 2 diabetes mellitus with hyperglycemia; E11.40 Type 2 diabetes mellitus with diabetic neuropathy, unspecified; R26.89 Other abnormalities of gait and mobility; S90.822A Blister (nonthermal), left foot, initial encounter; X58.XXXA Exposure to other specified factors, initial encounter | CPT/HCPCS: 11042; A6197; G0463 ==

== ENCOUNTER → 2022-10-02 | Outpatient (CLI) | payer MEDICARE, MEDICAID | LOC: WOUNDCARE 13:50 | PROVIDERS: ATTEND Family Medicine | DX: I96 Gangrene, not elsewhere classified (principal); L89.623 Pressure ulcer of left heel, stage 3; E11.621 Type 2 diabetes mellitus with foot ulcer; E11.65 Type 2 diabetes mellitus with hyperglycemia; E11.40 Type 2 diabetes mellitus with diabetic neuropathy, unspecified; E11.52 Type 2 diabetes mellitus with diabetic peripheral angiopathy with gangrene | CPT/HCPCS: 29445; A6207; A6209; G0463 ==

== ENCOUNTER → 2022-10-04 | Outpatient (CLI) | payer MEDICARE, MEDICAID | LOC: WOUNDCARE 13:07 | PROVIDERS: ATTEND Family Medicine | DX: I96 Gangrene, not elsewhere classified (principal); L89.623 Pressure ulcer of left heel, stage 3; E11.621 Type 2 diabetes mellitus with foot ulcer; E11.65 Type 2 diabetes mellitus with hyperglycemia; E11.40 Type 2 diabetes mellitus with diabetic neuropathy, unspecified; R26.89 Other abnormalities of gait and mobility | CPT/HCPCS: 11042; A6209; G0463 ==

== ENCOUNTER → 2022-10-09 | Outpatient (CLI) | payer MEDICARE, MEDICAID | LOC: WOUNDCARE 14:32 | PROVIDERS: ATTEND Family Medicine | DX: I96 Gangrene, not elsewhere classified (principal); L89.623 Pressure ulcer of left heel, stage 3; E11.621 Type 2 diabetes mellitus with foot ulcer; E11.65 Type 2 diabetes mellitus with hyperglycemia; E11.40 Type 2 diabetes mellitus with diabetic neuropathy, unspecified; E11.52 Type 2 diabetes mellitus with diabetic peripheral angiopathy with gangrene | CPT/HCPCS: 11042; A6209; G0463 ==

== ENCOUNTER → 2022-10-16 | Outpatient (CLI) | payer MEDICARE, MEDICAID | LOC: WOUNDCARE 08:20 | PROVIDERS: ATTEND Family Medicine | DX: E11.621 Type 2 diabetes mellitus with foot ulcer (principal); I96 Gangrene, not elsewhere classified; E11.65 Type 2 diabetes mellitus with hyperglycemia; E11.40 Type 2 diabetes mellitus with diabetic neuropathy, unspecified; E11.52 Type 2 diabetes mellitus with diabetic peripheral angiopathy with gangrene; L89.623 Pressure ulcer of left heel, stage 3 | CPT/HCPCS: 29445; A6209; G0463 ==

== ENCOUNTER → 2022-10-23 | Outpatient (CLI) | payer MEDICARE, MEDICAID | LOC: WOUNDCARE 13:50 | PROVIDERS: ATTEND Family Medicine | DX: Z53.9 Procedure and treatment not carried out, unspecified reason (principal) | CPT/HCPCS: 99211 ==

== ENCOUNTER → 2022-10-25 | Outpatient (CLI) | payer MEDICARE, MEDICAID | LOC: WOUNDCARE 13:06 | PROVIDERS: ATTEND Family Medicine | DX: E11.621 Type 2 diabetes mellitus with foot ulcer (principal); L89.623 Pressure ulcer of left heel, stage 3; E11.65 Type 2 diabetes mellitus with hyperglycemia; R26.89 Other abnormalities of gait and mobility; E11.40 Type 2 diabetes mellitus with diabetic neuropathy, unspecified; E11.52 Type 2 diabetes mellitus with diabetic peripheral angiopathy with gangrene; I96 Gangrene, not elsewhere classified | CPT/HCPCS: A6197; G0463; 99213 ==

== ENCOUNTER → 2022-10-30 | Outpatient (CLI) | payer MEDICARE, MEDICAID | LOC: WOUNDCARE 14:07 | PROVIDERS: ATTEND Family Medicine | DX: L89.623 Pressure ulcer of left heel, stage 3 (principal); E11.621 Type 2 diabetes mellitus with foot ulcer; E11.65 Type 2 diabetes mellitus with hyperglycemia; R26.89 Other abnormalities of gait and mobility; E11.40 Type 2 diabetes mellitus with diabetic neuropathy, unspecified; E11.52 Type 2 diabetes mellitus with diabetic peripheral angiopathy with gangrene | CPT/HCPCS: 99212 ==

== ENCOUNTER → 2022-11-27 | Outpatient (CLI) | payer MEDICARE, MEDICAID | LOC: WOUNDCARE 14:03 | PROVIDERS: ATTEND Family Medicine | DX: L89.623 Pressure ulcer of left heel, stage 3 (principal); E11.621 Type 2 diabetes mellitus with foot ulcer; E11.65 Type 2 diabetes mellitus with hyperglycemia; R26.89 Other abnormalities of gait and mobility; E11.40 Type 2 diabetes mellitus with diabetic neuropathy, unspecified; E11.52 Type 2 diabetes mellitus with diabetic peripheral angiopathy with gangrene; I96 Gangrene, not elsewhere classified | CPT/HCPCS: 11042; A6197; G0463 ==

== ENCOUNTER → 2022-12-04 | Outpatient (CLI) | payer MEDICARE, MEDICAID ==
[~2022-12-04] MED LIST changes: -POTA10CA43 PO; +POTA10CA44 PO
== END ==
LOC: WOUNDCARE 12:57
PROVIDERS: ATTEND Family Medicine
DX: L89.623 Pressure ulcer of left heel, stage 3 (principal); E11.621 Type 2 diabetes mellitus with foot ulcer; E11.65 Type 2 diabetes mellitus with hyperglycemia; R26.89 Other abnormalities of gait and mobility; E11.40 Type 2 diabetes mellitus with diabetic neuropathy, unspecified; E11.52 Type 2 diabetes mellitus with diabetic peripheral angiopathy with gangrene
CPT/HCPCS: 11042; A6207; A6209; G0463

== ENCOUNTER → 2022-12-06 | Outpatient (CLI) | payer MEDICARE, MEDICAID ==
[~2022-12-06] VITALS: Wt 70.3 kg
[2022-12-06 13:03] VITALS: BP 125/76
[2022-12-06 13:04] LABS: BASOPHILS # (AUTO) 0.1 10^3/uL (0.0-0.1); BASOPHILS % (AUTO) 1 % (0-10); EOSINOPHILS # (AUTO) 0.9 10^3/uL (0.0-0.3); EOSINOPHILS % (AUTO) 7 % (0-10); HEMATOCRIT 32 % (35-52); HEMOGLOBIN 10.6 g/dL (11.5-16.0); LYMPHOCYTES # (AUTO) 7.3 10^3/uL (1.0-4.0); LYMPHOCYTES % (AUTO) 61 % (12-44); MEAN CORPUSCULAR HEMOGLOBIN 31 pg (25-34); MEAN CORPUSCULAR HGB CONC 34 g/dL (32-36); MEAN CORPUSCULAR VOLUME 92 fL (80-99); MEAN PLATELET VOLUME 10.8 fL (9.0-12.2); MONOCYTES # (AUTO) 0.6 10^3/uL (0.0-1.0); MONOCYTES % (AUTO) 5 % (0-12); NEUTROPHILS # (AUTO) 3.2 10^3/uL (1.8-7.8); NEUTROPHILS % (AUTO) 26 % (42-75); PLATELET COUNT 169 10^3/uL (130-400); WHITE BLOOD COUNT 12.1 10^3/uL (4.3-11.0)
[2022-12-06 13:19] LABS: CALCIUM 8.2 MG/DL (8.5-10.1); CREATININE SERUM 0.93 MG/DL (0.60-1.30); POTASSIUM 3.3 MMOL/L (3.6-5.0)
== END ==
LOC: SDC 12:22
PROVIDERS: ATTEND Family Medicine
DX: L89.623 Pressure ulcer of left heel, stage 3 (principal); E10.621 Type 1 diabetes mellitus with foot ulcer; E10.40 Type 1 diabetes mellitus with diabetic neuropathy, unspecified; E10.65 Type 1 diabetes mellitus with hyperglycemia; R26.89 Other abnormalities of gait and mobility
CPT/HCPCS: 36415; 36591; 80048; 83036; 84134; 85025

== ENCOUNTER → 2022-12-06 | Outpatient (CLI) | payer MEDICARE, MEDICAID | LOC: WOUNDCARE 12:58 | PROVIDERS: ATTEND Family Medicine | DX: L89.623 Pressure ulcer of left heel, stage 3 (principal); R26.89 Other abnormalities of gait and mobility; E10.621 Type 1 diabetes mellitus with foot ulcer; E10.65 Type 1 diabetes mellitus with hyperglycemia; E10.40 Type 1 diabetes mellitus with diabetic neuropathy, unspecified; E10.52 Type 1 diabetes mellitus with diabetic peripheral angiopathy with gangrene; I96 Gangrene, not elsewhere classified | CPT/HCPCS: 29445; A6207; A6209; G0463 ==

== ENCOUNTER → 2022-12-11 | Outpatient (CLI) | payer MEDICARE, MEDICAID | LOC: WOUNDCARE 13:11 | PROVIDERS: ATTEND Family Medicine | DX: L89.623 Pressure ulcer of left heel, stage 3 (principal); E11.621 Type 2 diabetes mellitus with foot ulcer; E11.65 Type 2 diabetes mellitus with hyperglycemia; E11.40 Type 2 diabetes mellitus with diabetic neuropathy, unspecified; E11.52 Type 2 diabetes mellitus with diabetic peripheral angiopathy with gangrene; R26.89 Other abnormalities of gait and mobility | CPT/HCPCS: 29445; A6209; G0463 ==

== ENCOUNTER → 2022-12-21 | Outpatient (CLI) | payer MEDICARE, MEDICAID ==
--- NOTE | 2022-12-21 17:12 | Diagnostic Imaging Report ---
INDICATION: Routine screening. Comparison is made with prior mammogram from 12/16/2021 and 12/08/2020. 2-D and 3-D bilateral screening mammography was performed with CAD. Both breasts are heterogeneously dense, limiting the sensitivity of mammography. The overall parenchymal pattern is stable. There are scattered benign calcifications. No mass or malignant-appearing microcalcifications are seen. The chest wall port hub overlies the right axilla. IMPRESSION: No mammographic features suspicious for malignancy are identified. ACR BI-RADS Category 2: Benign findings. Result letter will be mailed to the patient. Note: At least 10% of breast cancer is not imaged by mammography. BI-RADS Category 2 Dictated by: Dictated on workstation # [id number]
== END ==
LOC: RAD 06:48
PROVIDERS: ATTEND Internal Medicine
DX: Z12.31 Encounter for screening mammogram for malignant neoplasm of breast (principal)
CPT/HCPCS: 77063; 77067

== ENCOUNTER → 2023-03-13 | Outpatient (CLI) | payer MEDICARE, MEDICAID ==
[2023-03-13 11:00] VITALS: BP 161/82
== END ==
LOC: SDC 10:55
PROVIDERS: ATTEND Internal Medicine
DX: Z45.2 Encounter for adjustment and management of vascular access device (principal); I10 Essential (primary) hypertension; E10.9 Type 1 diabetes mellitus without complications
CPT/HCPCS: 96523

== ENCOUNTER → 2023-04-26 | Outpatient (CLI) | payer MEDICARE, MEDICAID ==
[~2023-04-26] MED LIST changes: +POTA-330 PO; -POTA-51 PO
[2023-04-26 12:10] VITALS: BP 159/83
== END ==
LOC: SDC 11:57
PROVIDERS: ATTEND Internal Medicine
DX: Z45.2 Encounter for adjustment and management of vascular access device (principal)
CPT/HCPCS: 96523

== ENCOUNTER → 2023-05-24 | Outpatient (CLI) | payer MEDICARE, MEDICAID ==
[2023-05-24 13:05] VITALS: BP 112/64
== END ==
LOC: SDC 13:07
PROVIDERS: ATTEND Internal Medicine
DX: Z45.2 Encounter for adjustment and management of vascular access device (principal)
CPT/HCPCS: 96523

== ENCOUNTER → 2023-06-15 | Outpatient (CLI) | payer MEDICARE, MEDICAID ==
[~2023-06-15] MED LIST changes: +HYDR200T71 PO; -POTA10CA44 PO; +POTA10CA84 PO
--- NOTE | 2023-06-15 11:08 | Diagnostic Imaging Report ---
INDICATION: Leg pain, diabetes, hypertension, hyperlipidemia Blood pressures recorded both brachial arteries and in the dorsalis pedis and posterior tibial arteries at the ankles. Ankle brachial index on the right is 1.2. Ankle brachial index on the left is 1.5. IMPRESSION: Normal ankle-brachial indices. Dictated by: Dictated on workstation # [id number]
== END ==
LOC: RAD 08:55
PROVIDERS: ATTEND Family Medicine
DX: E11.621 Type 2 diabetes mellitus with foot ulcer (principal); E11.65 Type 2 diabetes mellitus with hyperglycemia; L97.429 Non-pressure chronic ulcer of left heel and midfoot with unspecified severity; M67.02 Short Achilles tendon (acquired), left ankle; D51.3 Other dietary vitamin B12 deficiency anemia; D50.8 Other iron deficiency anemias; D46.4 Refractory anemia, unspecified; R26.89 Other abnormalities of gait and mobility
CPT/HCPCS: 93923

== ENCOUNTER → 2023-06-18 | Outpatient (CLI) | payer MEDICARE, MEDICAID | LOC: WOUNDCARE 09:38 | PROVIDERS: ATTEND Family Medicine | DX: L97.422 Non-pressure chronic ulcer of left heel and midfoot with fat layer exposed (principal); E11.621 Type 2 diabetes mellitus with foot ulcer; E11.65 Type 2 diabetes mellitus with hyperglycemia; R26.89 Other abnormalities of gait and mobility; M67.02 Short Achilles tendon (acquired), left ankle; D51.3 Other dietary vitamin B12 deficiency anemia; D50.8 Other iron deficiency anemias; D46.4 Refractory anemia, unspecified; B95.62 Methicillin resistant Staphylococcus aureus infection as the cause of diseases classified elsewhere; E11.52 Type 2 diabetes mellitus with diabetic peripheral angiopathy with gangrene; I96 Gangrene, not elsewhere classified | CPT/HCPCS: 11042; A6209; G0463 ==

== ENCOUNTER → 2023-06-20 | Outpatient (CLI) | payer MEDICARE, MEDICAID | LOC: WOUNDCARE 10:40 | PROVIDERS: ATTEND Family Medicine | DX: E11.621 Type 2 diabetes mellitus with foot ulcer (principal); L97.422 Non-pressure chronic ulcer of left heel and midfoot with fat layer exposed; E11.65 Type 2 diabetes mellitus with hyperglycemia; R26.89 Other abnormalities of gait and mobility; M67.02 Short Achilles tendon (acquired), left ankle; D51.3 Other dietary vitamin B12 deficiency anemia; D50.8 Other iron deficiency anemias; D46.4 Refractory anemia, unspecified; A49.01 Methicillin susceptible Staphylococcus aureus infection, unspecified site; E11.52 Type 2 diabetes mellitus with diabetic peripheral angiopathy with gangrene | CPT/HCPCS: 29445; A6209; G0463 ==

== ENCOUNTER → 2023-06-25 | Outpatient (CLI) | payer MEDICARE, MEDICAID ==
[2023-06-25 13:20] VITALS: BP 174/83
== END ==
LOC: SDC 13:12
PROVIDERS: ATTEND Internal Medicine
DX: Z45.2 Encounter for adjustment and management of vascular access device (principal)
CPT/HCPCS: 96523

== ENCOUNTER → 2023-06-25 | Outpatient (CLI) | payer MEDICARE, MEDICAID | LOC: WOUNDCARE 13:59 | PROVIDERS: ATTEND Family Medicine | DX: L97.422 Non-pressure chronic ulcer of left heel and midfoot with fat layer exposed (principal); E11.621 Type 2 diabetes mellitus with foot ulcer; E11.65 Type 2 diabetes mellitus with hyperglycemia; R26.89 Other abnormalities of gait and mobility; M67.02 Short Achilles tendon (acquired), left ankle; D51.3 Other dietary vitamin B12 deficiency anemia; D50.8 Other iron deficiency anemias; D46.4 Refractory anemia, unspecified; E11.52 Type 2 diabetes mellitus with diabetic peripheral angiopathy with gangrene; I96 Gangrene, not elsewhere classified | CPT/HCPCS: 11042; A6209; G0463 ==

== ENCOUNTER → 2023-07-02 | Outpatient (CLI) | payer MEDICARE, MEDICAID | LOC: WOUNDCARE 14:23 | PROVIDERS: ATTEND Family Medicine | DX: E11.65 Type 2 diabetes mellitus with hyperglycemia (principal); L97.422 Non-pressure chronic ulcer of left heel and midfoot with fat layer exposed; E11.621 Type 2 diabetes mellitus with foot ulcer; R26.89 Other abnormalities of gait and mobility; M67.02 Short Achilles tendon (acquired), left ankle; D51.3 Other dietary vitamin B12 deficiency anemia; D46.4 Refractory anemia, unspecified; D50.8 Other iron deficiency anemias; E11.52 Type 2 diabetes mellitus with diabetic peripheral angiopathy with gangrene | CPT/HCPCS: 11042; A6209; A6234; G0463 ==

== ENCOUNTER → 2023-07-09 | Outpatient (CLI) | payer MEDICARE, MEDICAID | LOC: WOUNDCARE 12:28 | PROVIDERS: ATTEND Family Medicine | DX: E11.621 Type 2 diabetes mellitus with foot ulcer (principal); L97.422 Non-pressure chronic ulcer of left heel and midfoot with fat layer exposed; E11.65 Type 2 diabetes mellitus with hyperglycemia; R26.81 Unsteadiness on feet; M67.02 Short Achilles tendon (acquired), left ankle; D51.8 Other vitamin B12 deficiency anemias; D50.8 Other iron deficiency anemias; D46.4 Refractory anemia, unspecified; E11.52 Type 2 diabetes mellitus with diabetic peripheral angiopathy with gangrene | CPT/HCPCS: 11042; A6209; G0463 ==

== ENCOUNTER → 2023-07-13 | Outpatient (CLI) | payer MEDICARE, MEDICAID | LOC: WOUNDCARE 09:00 | PROVIDERS: ATTEND Family Medicine | DX: S91.302A Unspecified open wound, left foot, initial encounter (principal); I10 Essential (primary) hypertension; E11.40 Type 2 diabetes mellitus with diabetic neuropathy, unspecified | CPT/HCPCS: A6212; G0463; 99212 ==

== ENCOUNTER → 2023-07-17 | Outpatient (CLI) | payer MEDICARE, MEDICAID | LOC: WOUNDCARE 12:21 | PROVIDERS: ATTEND Family Medicine | DX: L97.422 Non-pressure chronic ulcer of left heel and midfoot with fat layer exposed (principal); E11.621 Type 2 diabetes mellitus with foot ulcer; E11.65 Type 2 diabetes mellitus with hyperglycemia; R26.89 Other abnormalities of gait and mobility; M76.02 Gluteal tendinitis, left hip; D51.3 Other dietary vitamin B12 deficiency anemia; D50.8 Other iron deficiency anemias; D46.4 Refractory anemia, unspecified | CPT/HCPCS: 11042; A6209; G0463 ==

== ENCOUNTER → 2023-07-24 | Outpatient (CLI) | payer MEDICARE, MEDICAID | LOC: WOUNDCARE 12:21 | PROVIDERS: ATTEND Family Medicine | DX: I96 Gangrene, not elsewhere classified (principal); L97.422 Non-pressure chronic ulcer of left heel and midfoot with fat layer exposed; E11.621 Type 2 diabetes mellitus with foot ulcer; E11.65 Type 2 diabetes mellitus with hyperglycemia; R26.89 Other abnormalities of gait and mobility; M67.02 Short Achilles tendon (acquired), left ankle; D51.3 Other dietary vitamin B12 deficiency anemia; D46.4 Refractory anemia, unspecified | CPT/HCPCS: 11042; A6209; G0463 ==

== ENCOUNTER → 2023-07-31 | Outpatient (CLI) | payer MEDICARE, MEDICAID | LOC: WOUNDCARE 12:25 | PROVIDERS: ATTEND Family Medicine | DX: L97.422 Non-pressure chronic ulcer of left heel and midfoot with fat layer exposed (principal); E11.621 Type 2 diabetes mellitus with foot ulcer; E11.65 Type 2 diabetes mellitus with hyperglycemia; R26.89 Other abnormalities of gait and mobility; M67.02 Short Achilles tendon (acquired), left ankle; D51.3 Other dietary vitamin B12 deficiency anemia; D50.8 Other iron deficiency anemias; D46.4 Refractory anemia, unspecified; E11.52 Type 2 diabetes mellitus with diabetic peripheral angiopathy with gangrene; I96 Gangrene, not elsewhere classified | CPT/HCPCS: 11042; A6209; G0463 ==

== ENCOUNTER → 2023-08-07 | Outpatient (CLI) | payer MEDICARE, MEDICAID | LOC: WOUNDCARE 12:10 | PROVIDERS: ATTEND Family Medicine | DX: E11.621 Type 2 diabetes mellitus with foot ulcer (principal); E11.65 Type 2 diabetes mellitus with hyperglycemia; L97.422 Non-pressure chronic ulcer of left heel and midfoot with fat layer exposed; R26.89 Other abnormalities of gait and mobility; M67.02 Short Achilles tendon (acquired), left ankle; D51.3 Other dietary vitamin B12 deficiency anemia; D50.8 Other iron deficiency anemias; D46.4 Refractory anemia, unspecified; Z68.24 Body mass index [BMI] 24.0-24.9, adult | CPT/HCPCS: 11042; A6209; G0463 ==

== ENCOUNTER → 2023-08-21 | Outpatient (CLI) | payer MEDICARE, MEDICAID | LOC: WOUNDCARE 12:22 | PROVIDERS: ATTEND Family Medicine | DX: E11.621 Type 2 diabetes mellitus with foot ulcer (principal); L97.422 Non-pressure chronic ulcer of left heel and midfoot with fat layer exposed; E11.65 Type 2 diabetes mellitus with hyperglycemia; R26.89 Other abnormalities of gait and mobility; M67.02 Short Achilles tendon (acquired), left ankle; D51.8 Other vitamin B12 deficiency anemias; D50.8 Other iron deficiency anemias; D46.4 Refractory anemia, unspecified | CPT/HCPCS: 99212 ==

== ENCOUNTER → 2023-08-31 | Outpatient (CLI) | payer MEDICARE, MEDICAID ==
[~2023-08-31] MED LIST changes: +ONDA4TAB11 SL
== END ==
LOC: WOUNDCARE 11:05
PROVIDERS: ATTEND Family Medicine
DX: I96 Gangrene, not elsewhere classified (principal); E11.621 Type 2 diabetes mellitus with foot ulcer; E11.65 Type 2 diabetes mellitus with hyperglycemia; L97.422 Non-pressure chronic ulcer of left heel and midfoot with fat layer exposed; R26.89 Other abnormalities of gait and mobility; M67.02 Short Achilles tendon (acquired), left ankle; D51.3 Other dietary vitamin B12 deficiency anemia; D50.9 Iron deficiency anemia, unspecified; D46.4 Refractory anemia, unspecified
CPT/HCPCS: A6197; A6212; G0463; 99213

== ENCOUNTER → 2023-08-31 | Day surgery (SDC) | payer MEDICARE, MEDICAID ==
[2023-08-31 13:12] LABS: BASOPHILS # (AUTO) 0.1 10^3/uL (0.0-0.1); BASOPHILS % (AUTO) 1 % (0-10); EOSINOPHILS # (AUTO) 0.4 10^3/uL (0.0-0.3); EOSINOPHILS % (AUTO) 3 % (0-10); HEMATOCRIT 31 % (35-52); HEMOGLOBIN 10.4 g/dL (11.5-16.0); LYMPHOCYTES # (AUTO) 7.3 10^3/uL (1.0-4.0); LYMPHOCYTES % (AUTO) 63 % (12-44); MEAN CORPUSCULAR HEMOGLOBIN 31 pg (25-34); MEAN CORPUSCULAR HGB CONC 34 g/dL (32-36); MEAN CORPUSCULAR VOLUME 92 fL (80-99); MEAN PLATELET VOLUME 10.8 fL (9.0-12.2); MONOCYTES # (AUTO) 0.6 10^3/uL (0.0-1.0); MONOCYTES % (AUTO) 5 % (0-12); NEUTROPHILS # (AUTO) 3.2 10^3/uL (1.8-7.8); NEUTROPHILS % (AUTO) 28 % (42-75); PLATELET COUNT 157 10^3/uL (130-400); WHITE BLOOD COUNT 11.5 10^3/uL (4.3-11.0)
[2023-08-31 13:20] LABS: ALBUMIN 3.3 GM/DL (3.2-4.5); POTASSIUM 3.6 MMOL/L (3.6-5.0)
[2023-08-31 13:21] LABS: CALCIUM 8.2 MG/DL (8.5-10.1)
[2023-08-31 13:23] LABS: TOTAL PROTEIN 5.6 GM/DL (6.4-8.2)
[2023-08-31 13:25] LABS: BILIRUBIN,TOTAL 0.2 MG/DL (0.1-1.0)
[2023-08-31 13:26] LABS: CREATININE SERUM 1.04 MG/DL (0.60-1.30)
== END ==
LOC: LAB 11:54
PROVIDERS: ATTEND Family Medicine
DX: L97.422 Non-pressure chronic ulcer of left heel and midfoot with fat layer exposed (principal)
CPT/HCPCS: 36415; 36591; 80053; 83036; 85025

== ENCOUNTER 2023-09-04 14:20 | Emergency (ER) | payer MEDICARE, MEDICAID ==
[~2023-09-04] VITALS: Ht 165 cm; Wt 68.4 kg
[~2023-09-04 14:20] MED LIST changes: -ONDA4TAB11 SL
[2023-09-04] MEDS ORDERED: DICYCLOMINE 10 MG/ML 2 ML AMPULE IM ONE (15:00)
[2023-09-04] MEDS ORDERED: NS IV 1000 ML 1,000 ML IV SCH ×2 (15:00→17:30)
--- NOTE | 2023-09-04 15:07 | ED Abdominal Pain ---
General Chief Complaint: General Problems/Pain Stated Complaint: DEHYDRATED | STOMACH FLU Nursing Triage Note: PT TO RM [address] JARRETT OFFICE WITH C/O WEAKNESS, LOW BP AND V/D SINCE SUNDAY, BUT NO V/D TODAY Source of Information: Patient Exam Limitations: No Limitations History of Present Illness Date Seen by Provider: Sep 04, 2023 Time Seen by Provider: 14:25 Initial Comments 63-year-old female presents to the ER for dehydration. She was seen by Dr. Norton, who told her to come to the ER. She states that Sunday and Sunday she had multiple episodes of vomiting and diarrhea. She states she has not had any vomiting or diarrhea yesterday or today. She reports mild abdominal pain and a mild headache. Her primary care provider tested her for COVID and flu today and it was negative. When she was seen in the office, her blood pressure was 80/60. They wanted her to come to the ER for IV fluids. Patient is a type I diabetic. She states that this morning her blood sugar was 79, she ate some muffins, when she rechecked her blood sugar it read "high," this means it was greater than 400. She took 4 units of fast acting insulin prior to arrival. She denies fevers and dysuria. She thinks her stomach may hurt because she ate without taking her domperidone for her gastroparesis. Allergies and Home Medications Allergies Coded Allergies: metoclopramide (Verified Allergy, Severe, INVOLUNTARY MOVEMENTS, 05/06/20) Sulfa (Sulfonamide Antibiotics) (Verified Allergy, Mild, HIVES, 05/06/20) Patient Home Medication List Home Medication List Reviewed: Yes Alprazolam (Alprazolam) 1 Mg Tablet, 1 MG PO Q8H, (Reported) Entered as Reported by: CHAU KNOX on 10/27/15 0830 Atorvastatin Calcium (Atorvastatin Calcium) 40 Mg Tablet, 40 MG PO HS, (Reported) Entered as Reported by: CHAU KNOX on 10/27/15 0830 Carbamazepine (Tegretol Xr) 200 Mg Tab.er.12h, 200 MG PO BID, (Reported) Entered as Reported by: RACIEL NICHOLSON on 05/06/20 1030 Cetirizine HCl (Allergy Relief) 10 Mg Tablet, 10 MG PO DAILY, (Reported) Entered as Reported by: CHAU KNOX on 04/22/18 0946 Cholecalciferol (Vitamin D3) (Vitamin D3) 125 Mcg Capsule, 125 MCG PO DAILY, (Reported) Entered as Reported by: RACIEL NICHOLSON on 05/06/20 1030 Cyclobenzaprine HCl (Cyclobenzaprine HCl) 10 Mg Tablet, 10 MG PO ACHS, (Rep orted) Entered as Reported by: RACIEL NICHOLSON on 05/06/20 1030 Docusate Sodium (Docusate Sodium) 100 Mg Capsule, 100 MG PO BID, (Reported) Entered as Reported by: RACIEL NICHOLSON on 05/06/20 1030 Ferrous Gluconate (Fergon) 240 Mg Tablet, 240 MG PO DAILY, (Reported) Entered as Reported by: RACIEL NICHOLSON on 05/06/20 1030 Fesoterodine Fumarate (Toviaz) 4 Mg Tab.sr.24h, 4 MG PO DAILY, (Reported) Entered as Reported by: RACIEL NICHOLSON on 05/06/20 1030 Fludrocortisone Acetate (Fludrocortisone Acetate) 0.1 Mg Tab, 0.1 MG PO DAILY, (Reported) Entered as Reported by: RACIEL NICHOLSON on 05/06/20 1030 Fluticasone Propionate (Flonase Allergy Relief) 9.9 Ml [place].susp, 1 SPRAY NS DAILY, (Reported) Entered as Reported by: RACIEL NICHOLSON on 05/06/20 1030 Hydrocodone/Acetaminophen (Hydrocodone/Acetaminophen 5 MG/325 MG TAB) 1 Each Tablet, 1 TAB PO Q4-6HR Prescribed by: ADALGISA RICK on 05/13/20 1246 Insulin Aspart (Novolog Flexpen) 300 Units/3 Ml Solution, 7 UNITS SQ AC, (Reported) Entered as Reported by: RACIEL NICHOLSON on 05/06/20 1030 Insulin Degludec (Tresiba Flextouch U-100) 100 Unit/1 Ml Insuln.pen, 14 UNITS SQ HS, (Reported) Entered as Reported by: KJ LANGE on 09/04/17 1606 Levothyroxine Sodium (Levothyroxine Sodium) 175 Mcg Tablet, 175 MCG PO DAILY, (Reported) Entered as Reported by: CHAU KNOX on 04/22/18 0946 Lipase/Protease/Amylase (Creon Dr 36,000 Units Capsule) 1 Each Capsule.dr, 2 EACH PO TIDAC, (Reported) Entered as Reported by: RACIEL NICHOLSON on 05/06/20 1030 Montelukast Sodium (Montelukast Sodium) 10 Mg Tablet, 10 MG PO DAILY, (Reported) Entered as Reported by: CHAU KNOX on 10/27/15 0830 Nortriptyline HCl (Nortriptyline HCl) 25 Mg Capsule, 75 MG PO HS, (Reported) Entered as Reported by: CHAU KNOX on 04/22/18 0946 Onabotulinumtoxina (Botox) 100 Unit Vial, 100 UNIT IJ Q 3MO PRN for HEADACHE, (Reported) Entered as Reported by: RACIEL NICHOLSON on 05/06/20 1030 Ondansetron (Ondansetron Odt) 4 Mg Tab.rapdis, 8 MG PO Q6H PRN for NAUSEA/VOMITING Prescribed by: CARA LEWIS on 05/17/182108 Ondansetron (Ondansetron Odt) 4 Mg Tab.rapdis, 4 MG SL Q4H PRN for NAUSEA/VOMITING Prescribed by: Yee Farnsworth on 09/04/23 193 Pantoprazole Sodium (Pantoprazole Sodium) 40 Mg Tablet.dr, 40 MG PO DAILY, (Reported) Entered as Reported by: CHAU KNOX on 10/27/15 0830 Potassium Chloride (Potassium Chloride) 20 Meq Tablet.er, 20 MEQ PO DAILY, (Reported) Entered as Reported by: RACIEL NICHOLSON on 05/06/20 1030 Pregabalin (Lyrica) 150 Mg Capsule, 150 MG PO BID, (Reported) Entered as Reported by: JHONNY MERCER on 09/03/17 1206 Rizatriptan Benzoate (Maxalt) 10 Mg Tablet, 10 MG PO PRN PRN for HEADACHE, (Reported) Entered as Reported by: RACIEL NICHOLSON on 05/06/20 1030 Scopolamine (Transderm-Scop) 1 Each Patch.td72, 1 EACH TD Q72H PRN for NAUSEA/VOMITING, (Reported) Entered as Reported by: RACIEL NICHOLSON on 05/06/20 1030 Tizanidine HCl (Zanaflex) 4 Mg Capsule, 4-8 MG PO TID PRN for SPASMS, (Reported) Entered as Reported by: RACIEL NICHOLSON on 05/06/20 1030 Ubidecarenone/Vit E Acetate (Co Q-10 100 mg Softgel) 1 Each Capsule, 1 EACH PO BID, (Reported) Entered as Reported by: RACIEL NICHOLSON on 05/06/20 1030 Vitamin B Complex (Vitamin B Complex) 1 Each Capsule, 1 EACH PO DAILY, (Reported) Entered as Reported by: RACIEL NICHOLSON on 05/06/20 1030 Zolpidem Tartrate (Ambien) 10 Mg Tablet, 10 MG PO HS, (Reported) Entered as Reported by: RACIEL NICHOLSON on 05/06/20 1030 [Domperidone] , 10 MG PO TIDAC, (Reported) Entered as Reported by: RACIEL NICHOLSON on 05/06/20 1030 Review of Systems Review of Systems Constitutional: see HPI Past Xlfwmfa-Dzarbi-Ftezwc Hx Patient Social History Tobacco Use?: No Use of E-Cig and/or Vaping dev: No Substance use?: No Alcohol Use?: No Pt feels they are or have been: No Immunizations Up To Date Tetanus Booster (TDap): More than 5yrs PED Vaccines UTD: Yes Influenza Vaccine Up-to-Date: Yes; Up-to-Date Seasonal Allergies Seasonal Allergies: Yes Past Medical History Surgery/Hospitalization HX: DM, HTN ANGELICA, RETINA SURGURY, MULTIPLE ORTHO SURGERIES, CARPEL TUNNEL Surgeries: Yes (PORT,CARPAL TUNNEL, R.HIP, BILAT SHOULDER SURGERY, L LEG MARIO, R ANKLE) Eye Surgery, Gallbladder, Hysterectomy, Orthopedic, Vascular Surgery Respiratory: Yes (DOESN'T USE INHALERS) Asthma Currently Using CPAP: No Currently Using BIPAP: No Cardiac: Yes High Cholesterol, Hypertension Neurological: Yes Concussion, Headaches /Migraines, Neuropathy, Seizure Disorder, Traumatic Brain Injury Reproductive Disorders: No Female Reproductive Disorders: Denies [employer] History: Hysterectomy Sexually Transmitted Disease: No HIV/AIDS: No Genitourinary: No Gastrointestinal: Yes (GASTROPARESIS WITH CHRONIC N/V. CHRONIC ABDOMINAL PAIN.) Ulcer Musculoskeletal: Yes Arthritis Endocrine: Yes (ADRENAL DISEASE-ADDISONS ) Diabetes, Insulin dep, Hypothyroidsim HEENT: Yes (GLASSES) Chronic Ear Infection Loss of Vision: Denies Hearing Impairment: Denies Cancer: Yes (CLL LEUKEMIA) Leukemia Did You Recieve Any Treatments: Yes Psychosocial: Yes Anxiety, Depression Integumentary: No Blood Disorders: No Adverse Reaction/Blood Tranf: No (N/A) Family Medical History Alcoholism 09 BROTHER Cancer 03 MOTHER (PANCREATIC CA) Myocardial infarction 03 MOTHER Cancer Physical Exam Vital Signs Vital Signs - First Documented 09/04/23 14:34 Temp 37.2 Pulse 91 Resp 13 B/P (MAP) 104/68 (80) Pulse Ox 94 Capillary Refill : Height/Weight/BMI Height: 5'5.00" Weight: 125lbs. 0.0oz. [id number]; 25.00 BMI Method:Stated General Appearance: WD/WN, mild distress Neck: supple, normal inspection Respiratory: lungs clear, normal breath sounds, no respiratory distress, no accessory muscle use Cardiovascular: regular rate, rhythm Gastrointestinal: normal bowel sounds, soft; No guarding, No rebound; tenderness (Right upper, right lower, and left upper quadrant) Extremities: normal range of motion, normal inspection Neurologic/Psychiatric: alert, normal mood/affect Skin: normal color, warm/dry Focused Exam Lactate Level 09/04/23 16:35: Lactic Acid Level 1.02 Lactic Acid Level Laboratory Tests Test 09/04/23 16:35 Lactic Acid Level 1.02 MMOL/L (0.50-2.00) Progress/Results/Core Measures Results/Orders Lab Results Laboratory Tests Test 09/04/23 14:59 09/04/23 15:52 09/04/23 16:35 09/04/23 17:53 Range/Units Glucometer 247 H 70-110 MG/DL Venous Blood pH 7.43 H 7.31-7.41 Venous Blood Partial Pressure CO2 43 40-52 MMHG Venous Blood HCO3 29 H 22-28 MMOL/L White Blood Count 16.5 H 4.3-11.0 10^3/uL Red Blood Count 4.04 3.80-5.11 10^6/uL Hemoglobin 12.5 # 11.5-16.0 g/dL Hematocrit 38 35-52 % Mean Corpuscular Volume 95 80-99 fL Mean Corpuscular Hemoglobin 31 25-34 pg Mean Corpuscular Hemoglobin Concent 33 32-36 g/dL Red Cell Distribution Width 12.9 10.0-14.5 % Platelet Count 144 130-400 10^3/uL Mean Platelet Volume 10.9 9.0-12.2 fL Immature Granulocyte % (Auto) 0 % Neutrophils (%) (Auto) 16 L 42-75 % Lymphocytes (%) (Auto) 73 H 12-44 % Monocytes (%) (Auto) 3 0-12 % Eosinophils (%) (Auto) 8 0-10 % Basophils (%) (Auto) 1 0-10 % Neutrophils # (Auto) 2.6 1.8-7.8 10^3/uL Lymphocytes # (Auto) 12.0 H 1.0-4.0 10^3/uL Monocytes # (Auto) 0.5 0.0-1.0 10^3/uL Eosinophils # (Auto) 1.3 H 0.0-0.3 10^3/uL Basophils # (Auto) 0.1 0.0-0.1 10^3/uL Immature Granulocyte # (Auto) 0.0 0.0-0.1 10^3/uL Neutrophils % (Manual) 15 % Lymphocytes % (Manual) 76 % Monocytes % (Manual) 2 % Eosinophils % (Manual) 7 % Percent Immature Platelet Fraction 6.1 0.0-7.6 % Blood Morphology Comment NORMAL Sodium Level 140 135-145 MMOL/L Potassium Level 3.3 L 3.6-5.0 MMOL/L Chloride Level 101 98-107 MMOL/L Carbon Dioxide Level 26 21-32 MMOL/L Anion Gap 13 5-14 MMOL/L Blood Urea Nitrogen 17 7-18 MG/DL Creatinine 2.05 H 0.60-1.30 MG/DL Estimat Glomerular Filtration Rate 27 BUN/Creatinine Ratio 8 Glucose Level 208 H 70-105 MG/DL Lactic Acid Level 1.02 0.50-2.00 MMOL/L Calcium Level 8.6 8.5-10.1 MG/DL Corrected Calcium 8.8 8.5-10.1 MG/DL Phosphorus Level 5.1 H 2.3-4.7 MG/DL Total Bilirubin 0.3 0.1-1.0 MG/DL Aspartate Amino Transf (AST/SGOT) 17 5-34 U/L Alanine Aminotransferase (ALT/SGPT) 20 0-55 U/L Alkaline Phosphatase 132 40-136 U/L C-Reactive Protein High Sensitivity 1.55 H 0.00-0.50 MG/DL Total Protein 6.3 L 6.4-8.2 GM/DL Albumin 3.7 3.2-4.5 GM/DL Lipase 13 8-78 U/L Beta-Hydroxybutyrate (Chem panel) 0.05 0.00-0.27 MMOL/L Urine Color YELLOW Urine Clarity CLEAR Urine pH 5.5 5-9 Urine Specific [place] 1.010 L 1.016-1.022 Urine Protein NEGATIVE NEGATIVE Urine Glucose (UA) 1+ H NEGATIVE Urine Ketones TRACE H NEGATIVE Urine Nitrite NEGATIVE NEGATIVE Urine Bilirubin NEGATIVE NEGATIVE Urine Urobilinogen 0.2 < = 1.0 MG/DL Urine Leukocyte Esterase TRACE H NEGATIVE Urine RBC (Auto) NEGATIVE NEGATIVE Urine RBC NONE /HPF Urine WBC 2-5 /HPF Urine Squamous Epithelial Cells 0-2 /HPF Urine Crystals NONE /LPF Urine Leucine Crystals /LPF Urine Bacteria TRACE /HPF Urine Casts PRESENT /LPF Urine Hyaline Casts 10-25 H /LPF Urine Mucus NEGATIVE /LPF Urine Culture Indicated NO My Orders Orders - YEE RENDON APRN Comprehensive Metabolic Panel (09/04/23 14:57) Lipase (09/04/23 14:57) Ua Culture If Indicated (09/04/23 14:57) Ed Iv/Invasive Line Start (09/04/23 14:57) Cbc And Automated Diff (09/04/23 14:57) Venous Blood Gas (09/04/23 14:57) Hs C Reactive Protein (09/04/23 14:57) Ns Iv 1000 Ml (Ns Iv 1000 Ml) (09/04/23 15:00) Dicyclomine Injection (Dicyclomine Injec (09/04/23 15:00) Beta Hydroxybutyrate (09/04/23 14:59) Phosphorus (09/04/23 14:59) Lactic Acid Analyzer (09/04/23 15:01) Manual Differential (09/04/23 16:35) Ns Iv 1000 Ml (Ns Iv 1000 Ml) (09/04/23 17:30) Potassium Chloride (Tablet) (Potassium C (09/04/23 18:00) Ondansetron Injection (Ondansetron Inj (09/04/23 18:45) Heparin (Central Iv Flush) (Heparin ([place] (09/04/23 19:45) Rx-Ondansetron Po (Rx-Zofran Po) (09/04/23 19:46) Medications Given in ED Current Medications Medications Dose Ordered Sig/Reva Route Start Time Stop Time Status Last Admin Dose Admin Dicyclomine HCl 20 mg ONCE ONCE IM 09/04/23 15:00 09/04/23 15:01 DC 09/04/23 15:37 20 MG Heparin Sodium (Porcine) 300 unit ONCE ONCE IV 09/04/23 19:45 09/04/23 19:46 DC 09/04/23 19:43 300 UNIT Ondansetron HCl 4 mg ONCE ONCE IVP 09/04/23 18:45 09/04/23 18:46 DC 09/04/23 18:38 4 MG Potassium Chloride 40 meq ONCE ONCE PO 09/04/23 18:00 09/04/23 18:02 DC 09/04/23 18:14 40 MEQ Vital Signs/I&O 09/04/23 09/04/23 14:34 20:00 Temp 37.2 36.0 Pulse 91 89 Resp 13 13 B/P (MAP) 104/68 (80) 166/86 Pulse Ox 94 99 Blood Pressure Mean: 80 Progress Progress Note : Progress Note Patient seen and evaluated, resting in bed, mild distress. Based on exam and symptoms, work-up initially included CBC, CMP, lipase, CRP, venous blood gas, beta hydroxybutyrate, phosphorus level, lactic acid, urinalysis. IV fluids and fentanyl ordered. 1727 Labs reviewed. CBC showed elevated BBC 16.5, decreased neutrophil percentage 16, elevated lymphocyte percentage 73. This is likely due to viral gastroenteritis. CMP shows decreased potassium 3.3, elevated creatinine 2.5, decreased GFR 27. Glucose 208. Phosphorus elevated 5.1. CRP 1.55. Beta- hydroxybutyrate normal. Lactic acid normal. Blood gas shows slightly elevated pH. Second liter IV fluids ordered for elevated creatinine decreased GFR. Labs completed 4 days ago show creatinine of 1.04 and GFR 61. Will order potassium replacement. 1835 urinalysis reviewed. It shows 1+ glucose, trace ketones, trace leukocytes, 2-5 WBCs, 0-2 squamous epithelial cells, trace bacteria. I am not concerned for urinary tract infection. Patient reevaluated. States she is feeling better, she is just tired. She does report some nausea due to potassium pills. Zofran ordered. 1929 patient reevaluated. States she is feeling better and would like to go home. I coordinated with Dr. Marinelli for outpatient lab work. Patient will return in 2 days to have her kidney function redrawn. He will order the labs a nd the results will be sent to him. Patient instructed to drink plenty of water prior to her lab draw. Blood pressure has improved. She did have a couple of episodes of blood pressures in the 180s and 190s systolic. It has reduced to 166 systolic. Will discharge with take-home Zofran and prescription for Zofran. Patient is stable for discharge. Discharge instructions and return precautions provided. Departure Impression Primary Impression: Gastroenteritis Additional Impression: Acute kidney injury Disposition: HOME, SELF-CARE Condition: Stable Departure-Patient Inst. Decision time for Depature: 19:33 Referrals: RUBIO MEZA DO (PCP/Family) Primary Care Physician Patient Instructions: Acute Kidney Injury (DC) Add. Discharge Instructions: Return on to have your labs drawn. The order will be at outpatient registration. Dr. Marinelli will contact you if there are any changes to this wilfredo n. Drink lots of water over the next couple of days. Take Zofran as needed for nausea and vomiting. Return for inability to keep fluids down, severe diarrhea, or any other new, concerning, or worsening symptoms. All discharge instructions reviewed with patient and/or family. Voiced understanding. Scripts Ondansetron (Ondansetron Odt) 4 Mg Tab.rapdis 4 MG SL Q4H PRN for NAUSEA/VOMITING, #10 TAB 0 Refills Prov: YEE RENDON APRN 09/04/23 YEE RENDON APRN Sep 04, 2023 15:07
[2023-09-04 16:57] LABS: HEMATOCRIT 38 % (35-52)
[2023-09-04 16:58] LABS: BASOPHILS # (AUTO) 0.1 10^3/uL (0.0-0.1); BASOPHILS % (AUTO) 1 % (0-10); EOSINOPHILS # (AUTO) 1.3 10^3/uL (0.0-0.3); EOSINOPHILS % (AUTO) 8 % (0-10); HEMOGLOBIN 12.5 g/dL (11.5-16.0); LYMPHOCYTES % (AUTO) 73 % (12-44); MEAN CORPUSCULAR HEMOGLOBIN 31 pg (25-34); MEAN CORPUSCULAR HGB CONC 33 g/dL (32-36); MEAN CORPUSCULAR VOLUME 95 fL (80-99); MEAN PLATELET VOLUME 10.9 fL (9.0-12.2); MONOCYTES # (AUTO) 0.5 10^3/uL (0.0-1.0); MONOCYTES % (AUTO) 3 % (0-12); NEUTROPHILS # (AUTO) 2.6 10^3/uL (1.8-7.8); NEUTROPHILS % (AUTO) 16 % (42-75); PLATELET COUNT 144 10^3/uL (130-400); WHITE BLOOD COUNT 16.5 10^3/uL (4.3-11.0)
[2023-09-04 17:07] LABS: ALBUMIN 3.7 GM/DL (3.2-4.5); POTASSIUM 3.3 MMOL/L (3.6-5.0)
[2023-09-04 17:08] LABS: CALCIUM 8.6 MG/DL (8.5-10.1)
[2023-09-04 17:10] LABS: TOTAL PROTEIN 6.3 GM/DL (6.4-8.2)
[2023-09-04 17:11] LABS: BILIRUBIN,TOTAL 0.3 MG/DL (0.1-1.0)
[2023-09-04 17:13] LABS: CREATININE SERUM 2.05 MG/DL (0.60-1.30); PHOSPHORUS 5.1 MG/DL (2.3-4.7)
[2023-09-04 17:33] LABS: EOSINOPHILS % (MANUAL) 7 %; LYMPHOCYTES % (MANUAL) 76 %; MONOCYTES % (MANUAL) 2 %; NEUTROPHILS % (MANUAL) 15 %; RBC MORPH NORMAL
[2023-09-04] MEDS ORDERED: POTASSIUM CHLORIDE 20 MEQ TABLET PO ONE (18:00)
[2023-09-04 18:13] LABS: CLARITY,URINE CLEAR; COLOR,URINE YELLOW
[2023-09-04 18:14] LABS: BACTERIA,URINE TRACE /HPF; BILIRUBIN,URINE NEGATIVE (NEGATIVE); GLUCOSE, URINE (UA) 1+ (NEGATIVE); KETONES,URINE TRACE (NEGATIVE); LEUKOCYTE ESTERASE ,URINE TRACE (NEGATIVE); NITRITE,URINE NEGATIVE (NEGATIVE); PH,URINE 5.5 (5-9); PROTEIN,URINE NEGATIVE (NEGATIVE); SQUAMOUS EPITHELIAL CELL,UR 0-2 /HPF
[2023-09-04] MEDS ORDERED: ONDANSETRON INJECTION 4 MG/2 ML (SDV) IVP ONE (18:45)
[2023-09-04] MEDS ORDERED: ONDA4TAB11 SL (19:35)
[2023-09-04] MEDS ORDERED: HEParin (CENTRAL IV FLUSH) 500 UNIT/5 ML SYR IV ONE (19:45)
[2023-09-04] MEDS ORDERED: RX-ONDANSETRON 4 MG ODT (ZOFRAN) PPK #4 PO STA (19:46)
[2023-09-04 20:00] VITALS: BP 166/86
== END 2023-09-04 20:05 | disposition home or self-care (01) ==
LOC: EDUNIT# 14:20 → ER 14:21
DX: K52.9 Noninfective gastroenteritis and colitis, unspecified (principal); N17.9 Acute kidney failure, unspecified; E87.6 Hypokalemia; E83.39 Other disorders of phosphorus metabolism; E10.9 Type 1 diabetes mellitus without complications
CPT/HCPCS: 36415; 36556; 80053; 81000; 82010; 82805; 82947; 83605; 83690; 84100; 85007; 85027; 86141; 96361; 96372; 96374; 96375

== ENCOUNTER → 2023-09-06 | Outpatient (CLI) | payer MEDICARE, MEDICAID ==
[~2023-09-06] MED LIST changes: +ONDA4TAB11 SL
== END ==
LOC: WOUNDCARE 12:51
PROVIDERS: ATTEND Family Medicine
DX: I96 Gangrene, not elsewhere classified (principal); E11.621 Type 2 diabetes mellitus with foot ulcer; E11.65 Type 2 diabetes mellitus with hyperglycemia; L97.422 Non-pressure chronic ulcer of left heel and midfoot with fat layer exposed; R26.89 Other abnormalities of gait and mobility; M67.02 Short Achilles tendon (acquired), left ankle; D51.3 Other dietary vitamin B12 deficiency anemia
CPT/HCPCS: 11042; A6212; G0463

== ENCOUNTER → 2023-09-13 | Outpatient (CLI) | payer MEDICARE, MEDICAID | LOC: WOUNDCARE 12:42 | PROVIDERS: ATTEND Family Medicine | DX: L97.422 Non-pressure chronic ulcer of left heel and midfoot with fat layer exposed (principal); E11.621 Type 2 diabetes mellitus with foot ulcer; E11.65 Type 2 diabetes mellitus with hyperglycemia; R26.89 Other abnormalities of gait and mobility; M67.02 Short Achilles tendon (acquired), left ankle; D51.3 Other dietary vitamin B12 deficiency anemia; D50.8 Other iron deficiency anemias; D46.4 Refractory anemia, unspecified; E11.52 Type 2 diabetes mellitus with diabetic peripheral angiopathy with gangrene; I96 Gangrene, not elsewhere classified | CPT/HCPCS: 11042; G0463 ==

== ENCOUNTER → 2023-09-20 | Outpatient (CLI) | payer MEDICARE, MEDICAID ==
[~2023-09-20] MED LIST changes: +ARMO250T6 PO; +DICY-11 PO; +FLUT15.845 NSEACH; +GLUC1VIA18 SQ; +HYDR-3817 PO; +LEVO125T6 PO; +LEVO5TAB28 PO; +LISI10TA25 PO; +POTA-177 PO; +PREG150C47 PO
== END ==
LOC: WOUNDCARE 12:48
PROVIDERS: ATTEND Family Medicine
DX: L97.422 Non-pressure chronic ulcer of left heel and midfoot with fat layer exposed (principal); E11.621 Type 2 diabetes mellitus with foot ulcer; E11.65 Type 2 diabetes mellitus with hyperglycemia; R26.89 Other abnormalities of gait and mobility; M67.02 Short Achilles tendon (acquired), left ankle; D50.8 Other iron deficiency anemias; D46.4 Refractory anemia, unspecified; E11.52 Type 2 diabetes mellitus with diabetic peripheral angiopathy with gangrene; I96 Gangrene, not elsewhere classified
CPT/HCPCS: 11042; G0463

== ENCOUNTER → 2023-09-28 | Outpatient (CLI) | payer MEDICARE, MEDICAID ==
[~2023-09-28] MED LIST changes: +AMOX1TAB12 PO
== END ==
LOC: WOUNDCARE 10:35
PROVIDERS: ATTEND Family Medicine
DX: L97.422 Non-pressure chronic ulcer of left heel and midfoot with fat layer exposed (principal); E11.621 Type 2 diabetes mellitus with foot ulcer; E11.65 Type 2 diabetes mellitus with hyperglycemia; R26.89 Other abnormalities of gait and mobility; M67.02 Short Achilles tendon (acquired), left ankle; D51.3 Other dietary vitamin B12 deficiency anemia; D50.8 Other iron deficiency anemias; D46.4 Refractory anemia, unspecified; E11.52 Type 2 diabetes mellitus with diabetic peripheral angiopathy with gangrene; I96 Gangrene, not elsewhere classified
CPT/HCPCS: 11042; A6212; G0463

== ENCOUNTER 2023-09-29 21:10 | Inpatient (IN) | payer MEDICARE, MEDICAID ==
[~2023-09-29] VITALS: Ht 165 cm; Wt 66.5 kg
[~2023-09-29 21:10] MED LIST changes: -AMOX1TAB12 PO; -ARMO250T6 PO; -DICY-11 PO; -FLUT15.845 NSEACH; -GLUC1VIA18 SQ; -HYDR-3817 PO; -LEVO125T6 PO; -LEVO5TAB28 PO; -LISI10TA25 PO; -POTA-177 PO; -PREG150C47 PO
[2023-09-29] MEDS ORDERED: fentaNYL INJECTION 100 MCG/2 ML VIAL IVP ONE (21:30)
[2023-09-29] MEDS ORDERED: ONDANSETRON INJECTION 4 MG/2 ML (SDV) IVP ONE (21:30)
--- NOTE | 2023-09-29 21:37 | ED Abdominal Pain ---
General Chief Complaint: Abdominal/GI Problems Stated Complaint: LOWER AB PAIN Nursing Triage Note: ARRIVES VIA EMS TO ROOM 6 WITH A C/O LOWER ABDOMINAL PAIN THAT STARTED AROUND 1900 THIS EVENING. PATIENT C/O NAUSEA AROUND THAT TIME WELL Source of Information: Patient, EMS, Family Exam Limitations: No Limitations History of Present Illness Date Seen by Provider: Sep 29, 2023 Time Seen by Provider: 21:18 Initial Comments This 63-year-old woman presents to the emergency room via EMS with rapidly progressing abdominal pain, nausea, and vomiting that started this evening. She has not had a bowel movement in several days but has a feeling of rectal urgency. She is crying in distress on arrival. She took a hydrocodone at home and received Zofran 4 mg prior to arrival. She has history of type 1 diabetes and gastroparesis. She was seen in this emergency room less than a month ago for gastroenteritis. EMS noted that patient's [id number] was experiencing symptoms of gastroenteritis as well while they were at the home. Allergies and Home Medications Allergies Coded Allergies: metoclopramide (Verified Allergy, Severe, INVOLUNTARY MOVEMENTS, 09/29/23) Sulfa (Sulfonamide Antibiotics) (Verified Allergy, Mild, HIVES, 09/29/23) Patient Home Medication List Home Medication List Reviewed: Yes Alprazolam (Alprazolam) 1 Mg Tablet, 1 MG PO Q8H, (Reported) Entered as Reported by: CHAU KNOX on 10/27/15 0830 Atorvastatin Calcium (Atorvastatin Calcium) 40 Mg Tablet, 40 MG PO HS, (Reported) Entered as Reported by: CHAU KNOX on 10/27/15 0830 Carbamazepine (Tegretol Xr) 200 Mg Tab.er.12h, 200 MG PO BID, (Reported) Entered as Reported by: RACIEL NICHOLSON on 05/06/20 1030 Cetirizine HCl (Allergy Relief) 10 Mg Tablet, 10 MG PO DAILY, (Reported) Entered as Reported by: CHAU KNOX on 04/22/18 0946 Cholecalciferol (Vitamin D3) (Vitamin D3) 125 Mcg Capsule, 125 MCG PO DAILY, (Reported) Entered as Reported by: RACIEL NICHOLSON on 05/06/20 1030 Cyclobenzaprine HCl (Cyclobenzaprine HCl) 10 Mg Tablet, 10 MG PO ACHS, (Reported) Entered as Reported by: RACIEL NICHOLSON on 05/06/20 1030 Docusate Sodium (Docusate Sodium) 100 Mg Capsule, 100 MG PO BID, (Reported) Entered as Reported by: RACIEL NICHOLSON on 05/06/20 1030 Ferrous Gluconate (Fergon) 240 Mg Tablet, 240 MG PO DAILY, (Reported) Entered as Reported by: RACIEL NICHOLSON on 05/06/20 1030 Fesoterodine Fumarate (Toviaz) 4 Mg Tab.sr.24h, 4 MG PO DAILY, (Reported) Entered as Reported by: RACIEL NICHOLSON on 05/06/20 1030 Fludrocortisone Acetate (Fludrocortisone Acetate) 0.1 Mg Tab, 0.1 MG PO DAILY, (Reported) Entered as Reported by: RACIEL NICHOLSON on 05/06/20 1030 Fluticasone Propionate (Flonase Allergy Relief) 9.9 Ml Conklin.susp, 1 SPRAY NS DAILY, (Reported) Entered as Reported by: RACIEL NICHOLSON on 05/06/20 1030 Hydrocodone/Acetaminophen (Hydrocodone/Acetaminophen 5 MG/325 MG TAB) 1 Each Tablet, 1 TAB PO Q4-6HR Prescribed by: ADALGISA RICK on 05/13/20 1246 Insulin Aspart (Novolog Flexpen) 300 Units/3 Ml Solution, 7 UNITS SQ AC, (Reported) Entered as Reported by: RACIEL NICHOLSON on 05/06/20 1030 Insulin Degludec (Tresiba Flextouch U-100) 100 Unit/1 Ml Insuln.pen, 14 UNITS SQ HS, (Reported) Entered as Reported by: KJ LANGE on 09/04/17 1606 Levothyroxine Sodium (Levothyroxine Sodium) 175 Mcg Tablet, 175 MCG PO DAILY, (Reported) Entered as Reported by: CHAU KNOX on 04/22/18 0946 Lipase/Protease/Amylase (Russel Newton 36,000 Units Capsule) 1 Each Capsule.dr, 2 EACH PO TIDAC, (Reported) Entered as Reported by: RACIEL NICHOLSON on 05/06/20 1030 Montelukast Sodium (Montelukast Sodium) 10 Mg Tablet, 10 MG PO DAILY, (Reported) Entered as Reported by: CHAU KNOX on 10/27/15 0830 Nortriptyline HCl (Nortriptyline HCl) 25 Mg Capsule, 75 MG PO HS, (Reported) Entered as Reported by: CHAU KNOX on 04/22/18 0946 Onabotulinumtoxina (Botox) 100 Unit Vial, 100 UNIT IJ Q 3MO PRN for HEADACHE, (Reported) Entered as Reported by: RACIEL NICHOLSON on 05/06/20 1030 Ondansetron (Ondansetron Odt) 4 Mg Tab.rapdis, 8 MG PO Q6H PRN for NAUSEA/VOMITING Prescribed by: CARA LEWIS on 05/17/182108 Ondansetron (Ondansetron Odt) 4 Mg Tab.rapdis, 4 MG SL Q4H PRN for NAUSEA/VOMITING Prescribed by: Yee Farnsworth on 09/04/23 193 Pantoprazole Sodium (Pantoprazole Sodium) 40 Mg Tablet.dr, 40 MG PO DAILY, (Reported) Entered as Reported by: CHAU KNOX on 10/27/15 0830 Potassium Chloride (Potassium Chloride) 20 Meq Tablet.er, 20 MEQ PO DAILY, (Reported) Entered as Reported by: RACIEL NICHOLSON on 05/06/20 1030 Pregabalin (Lyrica) 150 Mg Capsule, 150 MG PO BID, (Reported) Entered as Reported by: JHONNY MERCER on 09/03/17 1206 Rizatriptan Benzoate (Maxalt) 10 Mg Tablet, 10 MG PO PRN PRN for HEADACHE, (Reported) Entered as Reported by: RACIEL NICHOLSON on 05/06/20 1030 Scopolamine (Transderm-Scop) 1 Each Patch.td72, 1 EACH TD Q72H PRN for NAUSEA/VOMITING, (Reported) Entered as Reported by: RACIEL NICHOLSON on 05/06/20 1030 Tizanidine HCl (Zanaflex) 4 Mg Capsule, 4-8 MG PO TID PRN for SPASMS, (Reported) Entered as Reported by: RACIEL NICHOLSON on 05/06/20 1030 Ubidecarenone/Vit E Acetate (Co Q-10 100 mg Softgel) 1 Each Capsule, 1 EACH PO BID, (Reported) Entered as Reported by: RACIEL NICHOLSON on 05/06/20 1030 Vitamin B Complex (Vitamin B Complex) 1 Each Capsule, 1 EACH PO DAILY, (Reporte d) Entered as Reported by: RACIEL NICHOLSON on 05/06/20 1030 Zolpidem Tartrate (Ambien) 10 Mg Tablet, 10 MG PO HS, (Reported) Entered as Reported by: RACIEL NICHOLSON on 05/06/20 1030 [Domperidone] , 10 MG PO TIDAC, (Reported) Entered as Reported by: RACIEL NICHOLSON on 05/06/20 1030 Review of Systems Review of Systems Constitutional: no symptoms reported EENTM: No Symptoms Reported Respiratory: No Symptoms Reported Cardiovascular: No Symptoms Reported Gastrointestinal: See HPI Genitourinary: No Symptoms Reported Musculoskeletal: no symptoms reported Skin: no symptoms reported Psychiatric/Neurological: No Symptoms Reported Endocrine: No Symptoms Reported Hematologic/Lymphatic: No Symptoms Reported Past Lmhkziq-Qegutx-Xyhujm Hx Patient Social History Tobacco Use?: No Use of E-Cig and/or Vaping dev: No Substance use?: No Alcohol Use?: No Immunizations Up To Date Tetanus Booster (TDap): More than 5yrs PED Vaccines UTD: Yes Influenza Vaccine Up-to-Date: Yes; Up-to-Date First/Initial COVID19 Vaccinat: 3 SHOTS Seasonal Allergies Seasonal Allergies: Yes Past Medical History Surgery/Hospitalization HX: DM, HTN,LEUKEMIA, CLL ANGELICA, RETINA SURGURY, MULTIPLE ORTHO SURGERIES, CARPEL TUNNEL Surgeries: Yes (PORT,CARPAL TUNNEL, R.HIP, BILAT SHOULDER SURGERY, L LEG MARIO, R ANKLE) Eye Surgery, Gallbladder, Hysterectomy, Orthopedic, Vascular Surgery Respiratory: Yes (DOESN'T USE INHALERS) Asthma Currently Using CPAP: No Currently Using BIPAP: No Cardiac: Yes High Cholesterol, Hypertension Neurological: Yes Concussion, Headaches /Migraines, Neuropathy, Seizure Disorder, Traumatic Brain Injury Reproductive Disorders: No Female Reproductive Disorders: Denies 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 CHRONIC ABDOMINAL PAIN.) Ulcer Musculoskeletal: Yes Arthritis Endocrine: Yes (ADRENAL DISEASE-ADDISONS ) Diabetes, Insulin dep, Hypothyroidsim HEENT: Yes (GLASSES) Chronic Ear Infection Loss of Vision: Denies Hearing Impairment: Denies Cancer: Yes (CLL LEUKEMIA) Leukemia Did You Recieve Any Treatments: Yes Psychosocial: Yes Anxiety, Depression Integumentary: No Blood Disorders: No Adverse Reaction/Blood Tranf: No (N/A) Family Medical History Alcoholism 09 BROTHER Cancer 03 MOTHER (PANCREATIC CA) Myocardial infarction 03 MOTHER Cancer Physical Exam Vital Signs Vital Signs - First Documented 09/29/23 21:15 Temp 35.9 Pulse 79 Resp 18 B/P (MAP) 120/62 (81) Pulse Ox 99 O2 Delivery Room Air Capillary Refill : Less Than 3 Seconds Height/Weight/BMI Height: 5'5.00" Weight: 125lbs. 0.0oz. [id number]; 25.00 BMI Method:Stated General Appearance: WD/WN, moderate distress HEENT: PERRL/EOMI, normal ENT inspection Neck: normal inspection Respiratory: lungs clear, normal breath sounds, no respiratory distress Cardiovascular: regular rate, rhythm, no edema, no murmur Gastrointestinal: soft, no organomegaly; No distended; tenderness (lower central abdomen) Extremities: normal inspection, no pedal edema Neurologic/Psychiatric: no motor/sensory deficits, alert, normal mood/affect, oriented x 3 Skin: normal color, warm/dry Focused Exam Lactate Level 09/29/23 00:15: Lactic Acid Level 1.53 Lactic Acid Level Laboratory Tests Test 09/29/23 00:15 Lactic Acid Level 1.53 MMOL/L (0.50-2.00) Progress/Results/Core Measures Results/Orders Lab Results Laboratory Tests Test 09/29/23 00:15 09/29/23 00:35 09/29/23 21:30 Range/Units Lactic Acid Level 1.53 0.50-2.00 MMOL/L Urine Color YELLOW Urine Clarity CLEAR Urine pH 6.0 5-9 Urine Specific Marcell <=1.005 1.016-1.022 Urine Protein NEGATIVE NEGATIVE Urine Glucose (UA) 2+ H NEGATIVE Urine Ketones NEGATIVE NEGATIVE Urine Nitrite NEGATIVE NEGATIVE Urine Bilirubin NEGATIVE NEGATIVE Urine Urobilinogen 0.2 < = 1.0 MG/DL Urine Leukocyte Esterase NEGATIVE NEGATIVE Urine RBC (Auto) NEGATIVE NEGATIVE Urine RBC NONE /HPF Urine WBC NONE /HPF Urine Crystals NONE /LPF Urine Bacteria NEGATIVE /HPF Urine Casts NONE /LPF Urine Mucus NEGATIVE /LPF Urine Culture Indicated NO White Blood Count 15.8 H 4.3-11.0 10^3/uL Red Blood Count 3.48 L 3.80-5.11 10^6/uL Hemoglobin 10.9 L 11.5-16.0 g/dL Hematocrit 32 L 35-52 % Mean Corpuscular Volume 92 80-99 fL Mean Corpuscular Hemoglobin 31 25-34 pg Mean Corpuscular Hemoglobin Concent 34 32-36 g/dL Red Cell Distribution Width 13.0 10.0-14.5 % Platelet Count 164 130-400 10^3/uL Mean Platelet Volume 10.7 9.0-12.2 fL Immature Granulocyte % (Auto) 1 % Neutrophils (%) (Auto) 55 42-75 % Lymphocytes (%) (Auto) 38 12-44 % Monocytes (%) (Auto) 4 0-12 % Eosinophils (%) (Auto) 2 0-10 % Basophils (%) (Auto) 0 0-10 % Neutrophils # (Auto) 8.7 H 1.8-7.8 10^3/uL Lymphocytes # (Auto) 6.0 H 1.0-4.0 10^3/uL Monocytes # (Auto) 0.7 0.0-1.0 10^3/uL Eosinophils # (Auto) 0.4 H 0.0-0.3 10^3/uL Basophils # (Auto) 0.1 0.0-0.1 10^3/uL Immature Granulocyte # (Auto) 0.1 0.0-0.1 10^3/uL Neutrophils % (Manual) 55 % Lymphocytes % (Manual) 40 % Monocytes % (Manual) 2 % Eosinophils % (Manual) 3 % Blood Morphology Comment NORMAL Prothrombin Time 13.2 12.2-14.7 SEC INR Comment 1.0 0.8-1.4 Activated Partial Thromboplast Time 21 L 24-35 SEC Sodium Level 140 135-145 MMOL/L Potassium Level 3.3 L 3.6-5.0 MMOL/L Chloride Level 105 98-107 MMOL/L Carbon Dioxide Level 27 21-32 MMOL/L Anion Gap 8 5-14 MMOL/L Blood Urea Nitrogen 8 7-18 MG/DL Creatinine 1.04 0.60-1.30 MG/DL Estimat Glomerular Filtration Rate 61 BUN/Creatinine Ratio 8 Glucose Level 135 H 70-105 MG/DL Calcium Level 8.5 8.5-10.1 MG/DL Corrected Calcium 9.0 8.5-10.1 MG/DL Total Bilirubin 0.3 0.1-1.0 MG/DL Aspartate Amino Transf (AST/SGOT) 14 5-34 U/L Alanine Aminotransferase (ALT/SGPT) 12 0-55 U/L Alkaline Phosphatase 147 H 40-136 U/L Lactate Dehydrogenase 212 125-220 U/L C-Reactive Protein High Sensitivity 0.64 H 0.00-0.50 MG/DL Total Protein 5.7 L 6.4-8.2 GM/DL Albumin 3.4 3.2-4.5 GM/DL Lipase 13 8-78 U/L Micro Results Microbiology 09/29/23 Blood Culture - Preliminary, Resulted 09/29/23 Blood Culture - Preliminary, Resulted My Orders Orders - SWAPNA ARDON MD Cbc And Automated Diff (09/29/23 21:18) Comprehensive Metabolic Panel (09/29/23 21:18) Hs C Reactive Protein (09/29/23 21:18) Lipase (09/29/23 21:18) Ua Culture If Indicated (09/29/23 21:18) Ondansetron Injection (Ondansetron Inj (09/29/23 21:30) Fentanyl Injection (Fentanyl Injection (09/29/23 21:30) Manual Differential (09/29/23 21:30) Ct Abdomen/Pelvis W (09/29/23 22:11) Morphine Injection (Morphine Injection (09/29/23 22:15) Hyoscyamine Tablet (Hyoscyamine Tablet) (09/29/23 22:15) Iohexol Injection (Omnipaque 350 Mg/Ml 1 (09/29/23 22:45) Received Contrast (Hold Metformin- Contr (09/29/23 22:45) Ns (Ivpb) 100 Ml (Sodium Chloride 0.9% 1 (09/29/23 22:45) Blood Culture (09/29/23 22:57) Protime With Inr (09/29/23 22:57) Partial Thromboplastin Time (09/29/23 22:57) Vital Signs Adult Sepsis Patie Q15M (09/29/23 22:57) Remove Rings In Anticipation O (09/29/23 22:57) Lactic Acid Analyzer (09/29/23 22:57) LDH (09/29/23 22:57) Lorazepam Injection (Lorazepam Injection (09/30/23 00:00) Bladder Scan (09/29/23 23:57) Sotelo Cath (09/30/23 00:20) Ondansetron Injection (Ondansetron Inj (09/30/23 01:00) Piperacillin/Tazobactam (Piperacillin/Ta (09/30/23 02:00) Morphine Injection (Morphine Injection (09/30/23 02:56) Medications Given in ED Vital Signs/I&O 09/29/23 21:15 Temp 35.9 Pulse 79 Resp 18 B/P (MAP) 120/62 (81) Pulse Ox 99 O2 Delivery Room Air Blood Pressure Mean: 81 Progress Progress Note #1: Progress Note Labs were obtained, reviewed, and interpreted by me. CBC exhibited leukocytosis with WBC count of 15.8. There is mild anemia with hemoglobin of 10.9. Historically, patient has had leukocytosis by chart review which may correlate with her CLL. CMP was relatively unremarkable. There is mild hyperglycemia with glucose of 135. Alk phos was slightly elevated at 147. Coag panel was relatively unremarkable. Urinalysis was only notable for 2+ glucose. LDH was normal at 212. Lactic acid was normal at 1.53. CRP was less than 1. IV fluids are running as ordered by EMS. Symptoms have been treated with Zofran for nausea, Levsin for cramping, and fentanyl and morphine for pain. Progress Note #2: Time: 00:36 Progress Note Patient has required multiple doses of opioids for pain control. Levsin was also administered for possible spasming. Patient has been up to the bathroom numerous times and has produced small amounts of diarrhea. However, she has not produced any urine that she has been able to discern. This is surprising since she did have a notable amount of urine visible in the bladder on CT. Bladder scan was therefore obtained and revealed greater than 1 L of retained urine. Sotelo catheter is being placed. remarks that she has had problems with urinary retention in the past and required catheter. We will reassess her pain after her bladder has been emptied. CT scan was viewed by me. I appreciated some mild inflammatory response around the distal colon. There was stool throughout the colon but it did not appear obstructed or dilated. Proximal stool appeared liquid. There was no evidence of bowel obstruction by my interpretation. Radiologist's report was also reviewed as noted below. Plan is to reassess after Sotelo catheter is placed and determine disposition at that time. Patient received Ativan for anxiety related to the situation. Progress Note #3: Progress Note Chelsea has some relief after bladder was drained but was still in pain. Admission was sought and she was agreeable. Case was discussed with Dr. Alfred, admitting physician. Code status was discussed with Chelsea who elects a full code order. Diagnostic Imaging Diagonstic Imaging: CT Plain Films/CT/US/NM/MRI: abdomen, pelvis Comments CT abdomen and pelvis with IV contrast was interpreted by stat rad as follows: Findings compatible with mild/moderate acute colitis involving the distal transverse colon and descending colon and proximal sigmoid colon. No pneumatosis. No bowel obstruction. No intraperitoneal free fluid or free air. Moderate/marked retained colonic and rectal stool. Departure Communication (Admissions) Time/Spoke to Admitting Phy: 02:11 Dr. Alfred Impression Primary Impression: Colitis Additional Impressions: Urinary retention Nausea vomiting and diarrhea Disposition: ADMITTED INPATIENT Condition: Stable Admissions Decision to Admit Reason: Admit from ER (General) Decision to Admit/Date: Sep 30, 2023 Time/Decision to Admit Time: 02:11 Departure-Patient Inst. Referrals: RUBIO MEZA DO (PCP/Family) Primary Care Physician Copy Copies To 1: RUBIO MEZA JOSHUA T MD Sep 29, 2023 21:37
[2023-09-29 21:45] LABS: BASOPHILS # (AUTO) 0.1 10^3/uL (0.0-0.1); BASOPHILS % (AUTO) 0 % (0-10); EOSINOPHILS # (AUTO) 0.4 10^3/uL (0.0-0.3); EOSINOPHILS % (AUTO) 2 % (0-10); HEMATOCRIT 32 % (35-52); HEMOGLOBIN 10.9 g/dL (11.5-16.0); LYMPHOCYTES % (AUTO) 38 % (12-44); MEAN CORPUSCULAR HEMOGLOBIN 31 pg (25-34); MEAN CORPUSCULAR HGB CONC 34 g/dL (32-36); MEAN CORPUSCULAR VOLUME 92 fL (80-99); MEAN PLATELET VOLUME 10.7 fL (9.0-12.2); MONOCYTES # (AUTO) 0.7 10^3/uL (0.0-1.0); MONOCYTES % (AUTO) 4 % (0-12); NEUTROPHILS # (AUTO) 8.7 10^3/uL (1.8-7.8); NEUTROPHILS % (AUTO) 55 % (42-75); PLATELET COUNT 164 10^3/uL (130-400); WHITE BLOOD COUNT 15.8 10^3/uL (4.3-11.0)
[2023-09-29 21:59] LABS: ALBUMIN 3.4 GM/DL (3.2-4.5); BILIRUBIN,TOTAL 0.3 MG/DL (0.1-1.0); CALCIUM 8.5 MG/DL (8.5-10.1); CREATININE SERUM 1.04 MG/DL (0.60-1.30); POTASSIUM 3.3 MMOL/L (3.6-5.0); TOTAL PROTEIN 5.7 GM/DL (6.4-8.2)
[2023-09-29 22:14] LABS: NEUTROPHILS % (MANUAL) 55 %
[2023-09-29 22:15] LABS: EOSINOPHILS % (MANUAL) 3 %; LYMPHOCYTES % (MANUAL) 40 %; MONOCYTES % (MANUAL) 2 %; RBC MORPH NORMAL
[2023-09-29] MEDS ORDERED: HYOSCYAMINE 0.125 MG TABLET SL ONE (22:15)
[2023-09-29] MEDS ORDERED: morphine INJ 4 MG/ML 1 ML (VIAL/SYRINGE) IVP ONE (22:15)
[2023-09-29] MEDS ORDERED: IOHEXOL 350 MG/ML 100 ML (OMNIPAQUE 350) VIAL IV ONE (22:45)
[2023-09-29] MEDS ORDERED: NS 100 ML (IVPB) BAG IV ONE (22:45)
[2023-09-29] MEDS ORDERED: HOLD METFORMIN - RECEIVED CONTRAST 20 ML VIAL IV SCH (22:45)
[2023-09-29 23:10] LABS: PROTHROMBIN TIME PATIENT 13.2 SEC (12.2-14.7)
[2023-09-30 00:53] LABS: BACTERIA,URINE NEGATIVE /HPF; BILIRUBIN,URINE NEGATIVE (NEGATIVE); CLARITY,URINE CLEAR; COLOR,URINE YELLOW; GLUCOSE, URINE (UA) 2+ (NEGATIVE); KETONES,URINE NEGATIVE (NEGATIVE); LEUKOCYTE ESTERASE ,URINE NEGATIVE (NEGATIVE); NITRITE,URINE NEGATIVE (NEGATIVE); PROTEIN,URINE NEGATIVE (NEGATIVE)
[2023-09-30] MEDS ORDERED: ONDANSETRON INJECTION 4 MG/2 ML (SDV) IVP ONE (01:00)
[2023-09-30] MEDS ORDERED: PIPERACILLIN/Tazobactam 4.5 GM in NS (IVPB) 100 ML 100 ML IV ONE (02:00)
[2023-09-30] MEDS ORDERED: morphine INJ 10 MG/ML 1ML (SYR OR VIAL) IVP STA (02:56)
[2023-09-30] MEDS ORDERED: LACTATED RINGERS 1,000 ML 1,000 ML IV ONE (03:53)
[2023-09-30] MEDS ORDERED: morphine INJ 4 MG/ML 1 ML (VIAL/SYRINGE) IV PRN (04:00)
[2023-09-30] MEDS: LACTATED RINGERS 1,000 ML 1,000 ML IV SCH ×3 (04:05→14:31)
[2023-09-30] MEDS: morphine INJ 10 MG/ML 1ML (SYR OR VIAL) IV PRN ×6 (04:05→20:00)
[2023-09-30 04:18] VITALS: BP 168/77
[2023-09-30] MEDS: LEVOTHYROXINE 125 MCG TABLET PO SCH (06:00)
[2023-09-30] MEDS: inSUlin ASPART 1 UNIT/0.01 ML (PER UNIT) SC SCH ×4 (06:00→20:02)
[2023-09-30 07:23] VITALS: BP 176/83
[2023-09-30] MEDS: ONDANSETRON INJECTION 4 MG/2 ML (SDV) IV PRN (07:37)
[2023-09-30] MEDS: PIPERACILLIN/Tazobactam 4.5 GM in NS (IVPB) 100 ML 100 ML IV SCH ×2 (07:38→15:38)
--- NOTE | 2023-09-30 07:48 | Diagnostic Imaging Report ---
EXAMINATION: CT abdomen and pelvis with intravenous contrast. TECHNIQUE: Multiple contiguous axial images were obtained through the abdomen and pelvis after the uneventful administration of intravenous contrast. All CT scans use one or more of the following dose optimizing techniques: automated exposure control, MA and/or KvP adjustment based on patient size and exam type or iterative reconstruction. HISTORY: Severe abdominal pain. COMPARISON: 10/27/2015. FINDINGS: Limited views of the lower thorax show bibasilar atelectasis. The liver is normal without focal lesion. There is no biliary ductal dilation. Gallbladder is absent. Pancreas is normal. Spleen is normal. Adrenal glands are normal. The kidneys are normal. There is no hydronephrosis. Urinary bladder is normal. Bowel is normal in caliber without obstruction or inflammation. There is wall thickening and surrounding stranding of the splenic flexure of the colon, descending colon, and sigmoid colon. No obstruction. No abscess. No free fluid or air. There is a 2.2 cm left external iliac lymph node. There is a 1.2 cm left groin lymph node. There is a 1.6 cm right external iliac lymph node. There are other enlarged pelvic lymph nodes. Aorta is normal in caliber without aneurysm. There are no suspicious osseus lesions. IMPRESSION: 1. Colitis of the splenic flexure of the sigmoid colon. No obstruction or abscess. 2. Bilateral pelvic and groin lymphadenopathy. Differential includes lymphoma and metastatic disease. The lymphadenopathy was not identified on the preliminary report. 3. The report was called to Shawn in the ER by [email or web address]@7:44 AM. Dictated by: Dictated on workstation # [id number]
[2023-09-30] MEDS: PREGABALIN 150 MG CAPSULE PO SCH (09:04)
[2023-09-30 11:34] VITALS: BP 127/60
--- NOTE | 2023-09-30 14:09 | Consultation - Surgery ---
History of Present Illness History of Present Illness Patient Consulted On(mir/time) 09/30/23 14:02 Time Seen by Provider: 12:11 History of Present Illness Surgery asked to consult regarding Abdominal pain and Inguinal lymphadenopathy. HPI: Patient is a 63-year-old female who presented to the ER last night with abdominal pain. Patient states she was playing with the grandkids yesterday and then started having some abdominal pain which progressively got worse; she thought she had to go to the bathroom but she could not urinate or have a bowel movement. Pain continued to get worse and so she went to the hospital. She states she has never had pain like this before. She has a history of CLL and states she saw her oncologist in April of this year and was given a clean Slate. She also has GI and other doctors up at that is where she had all of her care she has had a colonoscopy but has been years, "probably over 5". The pain right now is rated as at least a 7-8 out of 10 on a 1-10 scale she is getting constant pain medications and actually getting some Ativan because of the pain. It is a constant crampy pain. Nothing makes it better. She told me that her last colonoscopy was basically negative she does remember them telling her about any type of pathology. She does have a history of gastroparesis. She has been having bloody BMs since she came to the hospital; nurse states they are "bright red". Allergies and Home Medications Allergies Coded Allergies: metoclopramide (Verified Allergy, Severe, INVOLUNTARY MOVEMENTS, 09/29/23) Sulfa (Sulfonamide Antibiotics) (Verified Allergy, Mild, HIVES, 09/29/23) Patient Home Medication List Home Medication List Reviewed: Yes Alprazolam (Alprazolam) 1 Mg Tablet, 1 MG PO Q8H, (Reported) Entered as Reported by: CHAU KNOX on 10/27/15 0830 Atorvastatin Calcium (Atorvastatin Calcium) 40 Mg Tablet, 40 MG PO HS, (Reported) Entered as Reported by: CHAU KNOX on 10/27/15 0830 Carbamazepine (Tegretol Xr) 200 Mg Tab.er.12h, 200 MG PO BID, (Reported) Entered as Reported by: RACIEL NICHOLSON on 05/06/20 1030 Cetirizine HCl (Allergy Relief) 10 Mg Tablet, 10 MG PO DAILY, (Reported) Entered as Reported by: CHAU KNOX on 04/22/18 0946 Cholecalciferol (Vitamin D3) (Vitamin D3) 125 Mcg Capsule, 125 MCG PO DAILY, (Reported) Entered as Reported by: RACIEL NICHOLSON on 05/06/20 1030 Cyclobenzaprine HCl (Cyclobenzaprine HCl) 10 Mg Tablet, 10 MG PO ACHS, (Reported) Entered as Reported by: RACIEL NICHOLSON on 05/06/20 1030 Docusate Sodium (Docusate Sodium) 100 Mg Capsule, 100 MG PO BID, (Reported) Entered as Reported by: RACIEL NICHOLSON on 05/06/20 1030 Ferrous Gluconate (Fergon) 240 Mg Tablet, 240 MG PO DAILY, (Reported) Entered as Reported by: RACIEL NICHOLSON on 05/06/20 1030 Fesoterodine Fumarate (Toviaz) 4 Mg Tab.sr.24h, 4 MG PO DAILY, (Reported) Entered as Reported by: RACIEL NICHOLSON on 05/06/20 1030 Fludrocortisone Acetate (Fludrocortisone Acetate) 0.1 Mg Tab, 0.1 MG PO DAILY, (Reported) Entered as Reported by: RACIEL NICHOLSON on 05/06/20 1030 Fluticasone Propionate (Flonase Allergy Relief) 9.9 Ml [place].susp, 1 SPRAY NS DAILY, (Reported) Entered as Reported by: RACIEL NICHOLSON on 05/06/20 1030 Hydrocodone/Acetaminophen (Hydrocodone/Acetaminophen 5 MG/325 MG TAB) 1 Each Tablet, 1 TAB PO Q4-6HR Prescribed by: ADALGISA RICK on 05/13/20 1246 Insulin Aspart (Novolog Flexpen) 300 Units/3 Ml Solution, 7 UNITS SQ AC, (Reported) Entered as Reported by: RACIEL NICHOLSON on 05/06/20 1030 Insulin Degludec (Tresiba Flextouch U-100) 100 Unit/1 Ml Insuln.pen, 14 UNITS SQ HS, (Reported) Entered as Reported by: KJ LANGE on 09/04/17 1606 Levothyroxine Sodium (Levothyroxine Sodium) 175 Mcg Tablet, 175 MCG PO DAILY, (Reported) Entered as Reported by: CHAU KNOX on 04/22/18 0946 Lipase/Protease/Amylase (Creon Dr 36,000 Units Capsule) 1 Each Capsule.dr, 2 EA CH PO TIDAC, (Reported) Entered as Reported by: RACIEL NICHOLSON on 05/06/20 1030 Montelukast Sodium (Montelukast Sodium) 10 Mg Tablet, 10 MG PO DAILY, (Reported) Entered as Reported by: CHAU KNOX on 10/27/15 0830 Nortriptyline HCl (Nortriptyline HCl) 25 Mg Capsule, 75 MG PO HS, (Reported) Entered as Reported by: CHAU KNOX on 04/22/18 0946 Onabotulinumtoxina (Botox) 100 Unit Vial, 100 UNIT IJ Q 3MO PRN for HEADACHE, (Reported) Entered as Reported by: ARCIEL NICHOLSON on 05/06/20 1030 Ondansetron (Ondansetron Odt) 4 Mg Tab.rapdis, 8 MG PO Q6H PRN for NAUSEA/VOMITING Prescribed by: CARA LEWIS on 05/17/182108 Ondansetron (Ondansetron Odt) 4 Mg Tab.rapdis, 4 MG SL Q4H PRN for NAUSEA/VOMITING Prescribed by: Yee Farnsworth on 09/04/23 193 Pantoprazole Sodium (Pantoprazole Sodium) 40 Mg Tablet.dr, 40 MG PO DAILY, (Reported) Entered as Reported by: CHAU KNOX on 10/27/15 0830 Potassium Chloride (Potassium Chloride) 20 Meq Tablet.er, 20 MEQ PO DAILY, (Reported) Entered as Reported by: RACIEL NICHOLSON on 05/06/20 1030 Pregabalin (Lyrica) 150 Mg Capsule, 150 MG PO BID, (Reported) Entered as Reported by: JHONNY MERCER on 09/03/17 1206 Rizatriptan Benzoate (Maxalt) 10 Mg Tablet, 10 MG PO PRN PRN for HEADACHE, (Reported) Entered as Reported by: RACIEL NICHOLSON on 05/06/20 1030 Scopolamine (Transderm-Scop) 1 Each Patch.td72, 1 EACH TD Q72H PRN for NAUSEA/VOMITING, (Reported) Entered as Reported by: RACIEL NICHOLSON on 05/06/20 1030 Tizanidine HCl (Zanaflex) 4 Mg Capsule, 4-8 MG PO TID PRN for SPASMS, (Reported) Entered as Reported by: RACIEL NICHOLSON on 05/06/20 1030 Ubidecarenone/Vit E Acetate (Co Q-10 100 mg Softgel) 1 Each Capsule, 1 EACH PO BID, (Reported) Entered as Reported by: RACIEL NICHOLSON on 05/06/20 1030 Vitamin B Complex (Vitamin B Complex) 1 Each Capsule, 1 EACH PO DAILY, (Reported) Entered as Reported by: RACIEL NICHOLSON on 05/06/20 1030 Zolpidem Tartrate (Ambien) 10 Mg Tablet, 10 MG PO HS, (Reported) Entered as Reported by: RACIEL NICHOLSON on 05/06/20 1030 [Domperidone] , 10 MG PO TIDAC, (Reported) Entered as Reported by: RACIEL NICHOLSON on 05/06/20 1030 Past Xcmulsx-Sxycqm-Vbqueb Hx Patient Social History Smoking Status: Never a Smoker 2nd Hand Smoke Exposure: No Recent Hopitalizations: No Alcohol Use?: No Immunizations Up To Date Tetanus Booster (TDap): More than 5yrs PED Vaccines UTD: Yes Date of Pneumonia Vaccine: Aug 19, 2014 Date of Influenza Vaccine: Aug 29, 2023 Seasonal Allergies Seasonal Allergies: Yes Surgeries History of Surgeries: Yes (PORT,CARPAL TUNNEL, R.HIP, BILAT SHOULDER SURGERY, L LEG MARIO, R ANKLE) Surgeries: Eye Surgery, Gallbladder, Hysterectomy, Orthopedic, Vascular Surgery Respiratory History of Respiratory Disorde: Yes (DOESN'T USE INHALERS) Respiratory Disorders: Asthma Cardiovascular History of Cardiac Disorders: Yes Cardiac Disorders: High Cholesterol, Hypertension Neurological History of Neurological Disord: Yes Neurological Disorders: Concussion, Headaches /Migraines, Neuropathy, Seizure Disorder, Traumatic Brain Injury Reproductive System Hx Reproductive Disorders: No Sexually Transmitted Disease: No HIV/AIDS: No Female Reproductive Disorders: Denies 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 CHRONIC ABDOMINAL PAIN.) Gastrointestinal Disorders: Ulcer Musculoskeletal History of Musculoskeletal Dis: Yes Musculoskeletal Disorders: Arthritis Endocrine History of Endocrine Disorders: Yes (ADRENAL DISEASE-ADDISONS ) Endocrine Disorders: Diabetes, Insulin dep, Hypothyroidsim HEENT History of HEENT Disorders: Yes (GLASSES) HEENT Disorders: Chronic Ear Infection Loss of Vision: Denies Hearing Impairment: Denies Cancer History of Cancer: Yes (CLL LEUKEMIA) Cancer: Leukemia Psychosocial History of Psychiatric Problem: Yes Behavioral Health Disorders: Anxiety, Depression Integumentary History of Skin or Integumenta: No Blood Transfusions History of Blood Disorders: No Adverse Reaction to a Blood Tr: No (N/A) Family Medical History Significant Family History: Cancer Family Medial History: Alcoholism 09 BROTHER Cancer 03 MOTHER (PANCREATIC CA) Myocardial infarction 03 MOTHER Review of Systems-General Constitutional: No diaphoresis; malaise, weakness EENTM: No double vision, No mouth swelling, No epistaxis Respiratory: No cough, No dyspnea on exertion Cardiovascular: No chest pain, No edema Gastrointestinal: abdominal pain; No jaundice, No melena, No nausea; other (hematochezia) Genitourinary: No dysuria, No frequency, No hematuria Musculoskeletal: joint pain, joint swelling, muscle stiffness Skin: No change in color, No change in hair/nails Psychiatric/Neurological: Anxiety, Depressed, Emotional Problems; Denies Seizure, Denies Tremors Physical Exam-General Problems Physical Exam Vital Signs Vital Signs - First Documented 09/29/23 21:15 Temp 35.9 Pulse 79 Resp 18 B/P (MAP) 120/62 (81) Pulse Ox 99 O2 Delivery Room Air Capillary Refill : Less Than 3 Seconds General Appearance: mild distress, thin Eyes: Bilateral Eye PERRL, Bilateral Eye EOMI HEENT: pharynx normal; No scleral icterus (R), No scleral icterus (L) Neck: non-tender, supple Respiratory: lungs clear, normal breath sounds, no respiratory distress, no accessory muscle use Cardiovascular: regular rate, rhythm, no murmur Gastrointestinal: soft; No distended; guarding (voluntary), tenderness (diffusely), hernia (umbilical) Back: no CVA tenderness, no vertebral tenderness Extremities: no pedal edema, no calf tenderness, normal capillary refill Neurologic/Psychiatric: alert, oriented x 3 Skin: normal color, warm/dry, other (diabetic ulcer left heal) Lymphatic: no adenopathy (axilla or cervical), inguinal node tender (R), inguinal node tender (L) (multiple and large one in the upper thigh) Data Review Labs Laboratory Tests 09/29/23 21:30: White Blood Count 15.8H, Red Blood Count 3.48L, Hemoglobin 10.9L, Hematocrit 32L , Mean Corpuscular Volume 92, Mean Corpuscular Hemoglobin 31, Mean Corpuscular Hemoglobin Concent 34, Red Cell Distribution Width 13.0, Platelet Count 164, Mean Platelet Volume 10.7, Immature Granulocyte % (Auto) 1, Neutrophils (%) (Auto) 55, Lymphocytes (%) (Auto) 38, Monocytes (%) (Auto) 4, Eosinophils (%) (Auto) 2, Basophils (%) (Auto) 0, Neutrophils # (Auto) 8.7H, Lymphocytes # (Auto) 6.0H, Monocytes # (Auto) 0.7, Eosinophils # (Auto) 0.4H, Basophils # (Auto) 0.1, Immature Granulocyte # (Auto) 0.1, Neutrophils % (Manual) 55, Lymphocytes % (Manual) 40, Monocytes % (Manual) 2, Eosinophils % (Manual) 3, Blood Morphology Comment NORMAL, Prothrombin Time 13.2, INR Comment 1.0, Activated Partial Thromboplast Time 21L, Sodium Level 140, Potassium Level 3.3L, Chloride Level 105, Carbon Dioxide Level 27, Anion Gap 8, Blood Urea Nitrogen 8, Creatinine 1.04, Estimat Glomerular Filtration Rate 61, BUN/Creatinine Ratio 8, Glucose Level 135H, Calcium Level 8.5, Corrected Calcium 9.0, Total Bilirubin 0.3, Aspartate Amino Transf (AST/SGOT) 14, Alanine Aminotransferase (ALT/SGPT) 12, Alkaline Phosphatase 147H, Lactate Dehydrogenase 212, C-Reactive Protein High Sensitivity 0.64H, Total Protein 5.7L, Albumin 3.4, Lipase 13 09/30/23 05:52: Glucometer 380H Microbiology 09/30/23 C. difficile GDH Antigen & Toxins - Final, Resulted 09/30/23 Stool Culture, Resulted Pending Radiology Date of Exam:09/29/23 CT ABDOMEN/PELVIS W EXAMINATION: CT abdomen and pelvis with intravenous contrast. TECHNIQUE: Multiple contiguous axial images were obtained through the abdomen and pelvis after the uneventful administration of intravenous contrast. All CT scans use one or more of the following dose optimizing techniques: automated exposure control, MA and/or KvP adjustment based on patient size and exam type or iterative reconstruction. HISTORY: Severe abdominal pain. COMPARISON: 10/27/2015. FINDINGS: Limited views of the lower thorax show bibasilar atelectasis. The liver is normal without focal lesion. There is no biliary ductal dilation. Gallbladder is absent. Pancreas is normal. Spleen is normal. Adrenal glands are normal. The kidneys are normal. There is no hydronephrosis. Urinary bladder is normal. Bowel is normal in caliber without obstruction or inflammation. There is wall thickening and surrounding stranding of the splenic flexure of the colon, descending colon, and sigmoid colon. No obstruction. No abscess. No free fluid or air. There is a 2.2 cm left external iliac lymph node. There is a 1.2 cm left groin lymph node. There is a 1.6 cm right external iliac lymph node. There are other enlarged pelvic lymph nodes. Aorta is normal in caliber without aneurysm. There are no suspicious osseus lesions. IMPRESSION: 1. Colitis of the splenic flexure of the sigmoid colon. No obstruction or abscess. 2. Bilateral pelvic and groin lymphadenopathy. Differential includes lymphoma and metastatic disease. The lymphadenopathy was not identified on the preliminary report. 3. The report was called to Shawn in the ER by [email or web address]@7:44 AM. Dictated on workstation # [id number] Dict: 09/30/23 0731 Trans: 09/30/23 0747 [id number] Interpreted by: HARJEET ARAIZA MD Assessment/Plan Assessment/Plan Assessment/Plan Colitis with diffuse Abdominal pain Rectal bleed with anemia Lymphadenopathy with hx of CLL Gastroparesis Hypokalemia Apparently patient has a history of chronic abdominal pain but she states this is worse than she has ever had before. I reviewed the CT scan myself, discussed the case with the patient and her significant other; as well as, the nurse nurse and the hospitalist. She also has been having some bright red rectal bleeding and on the CT, I can see pretty diffuse inflammation at the splenic flexure with some mild inflammation in the descending colon. In addition, her stomach is very distended with a lot of liquid and solid food in it and this is probably due to her gastroparesis. She states she does take some medications at home to help with her gastroparesis; she actually has to get them from [facility]. She states they don't have them in the [place]. She will need her potassium replaced, IV fluids, pain medications and antiemetics as needed. We will monitor her hemoglobin and if it continues to drop, may need to do a colonoscopy or at least extended flex sig to try and look at the area that is inflamed. Probably will start her on some antibiotics. I did discuss with the patient and her significant other about the lymphadenopathy; there is some in the pelvis and there is some that I can feel in the inguinal area. More on the left and in the upper left leg. I told them that it is not as important to remove them at this time; will at some point need to get a specimen for pathology. Probably can be worked up as an outpatient, need to get her over this acute illness and pain right now. They have no other questions. ANNA GONZALEZ DO Sep 30, 2023 14:09
[2023-09-30 16:09] VITALS: BP 122/59
--- NOTE | 2023-09-30 18:58 | History & Physical-Hospitalist ---
History of Present Illness HPI/Chief Complaint Chelsea Elizabeth is a 63 year old female with PMH T2DM, gastroparesis, HLD, migraines, seizures, TBI, hypothyroidism, anxiety, depression, history of CLL, who presented with abdominal pain. She reports that she was feeling well until last night. She developed pain in her abdomen which was generalized but more severe in her lower abdomen. She also had some bright red blood per rectum this morning. She denies fevers and chills. She denies nausea and vomiting. She denies diarrhea. She did feel diaphoretic and clammy. Her appetite has not been great. She reports a ~40 lbs weight loss in the past year. She has a history of CLL. She has not required any treatment and is just being monitored. Source: patient Exam Limitations: no limitations Date Seen 09/30/23 Time Seen by a Provider: 10:05 Attending Physician Migue Patton DO PCP Admitting Physician: Sharon Webster MD Attending Physician: Sharon Webster MD Referring Physician Date of Admission Sep 30, 2023 at 03:11 Home Medications & Allergies Home Medications Reviewed patient Home Medication Reconciliation performed by pharmacy medication reconciliations facility environmental technician and/or nursing. Patients Allergies have been reviewed. Allergies Allergies Coded Allergies metoclopramide (Verified Allergy, Severe, INVOLUNTARY MOVEMENTS, 09/29/23) Sulfa (Sulfonamide Antibiotics) (Verified Allergy, Mild, HIVES, 09/29/23) Past Sdxxwfa-Dtmwxk-Myrtmd Hx Patient Social History Tobacco Use?: No Smoking Status: Never a Smoker Use of E-Cig and/or Vaping dev: No Substance use?: No Alcohol Use?: No Pt feels they are or have been: No Immunizations Up To Date Date of Influenza Vaccine: Aug 29, 2023 First/Initial COVID19 Vaccinat: 3 SHOTS Tetanus Booster (TDap): Unknown PED Vaccines UTD: Yes Date of Pneumonia Vaccine: Aug 19, 2014 Seasonal Allergies Seasonal Allergies: Yes Current Status status: No Advance Directives: No Advance Directive Location: FULL CODE Communicates: Verbally Primary Language: Mongolian Preferred Spoken Language: Mongolian Is interpretation needed?: No Sensory deficits: Vision impairment Implanted or Applied Medical D: Orthopedic hardware, Port-a-cath Past Medical History Surgeries: Eye Surgery, Gallbladder, Hysterectomy, Orthopedic, Vascular Surgery Asthma Currently Using CPAP: No Currently Using BIPAP: No High Cholesterol, Hypertension Concussion, Headaches /Migraines, Neuropathy, Seizure Disorder, Traumatic Brain Injury 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 Sexually Transmitted Disease: No HIV/AIDS: No Ulcer Arthritis Diabetes, Insulin dep, Hypothyroidsim Chronic Ear Infection Loss of Vision: Denies Hearing Impairment: Denies Leukemia Did You Recieve Any Treatments: Yes Anxiety, Depression Blood Disorders: No Adverse Reaction/Blood Tranf: No (N/A) Family Medical History Alcoholism 09 BROTHER Cancer 03 MOTHER (PANCREATIC CA) Myocardial infarction 03 MOTHER Cancer Review of Systems Constitutional: diaphoresis Respiratory: no symptoms reported Cardiovascular: no symptoms reported Gastrointestinal: abdominal pain Physical Exam Physical Exam Vital Signs Vital Signs - First Documented 09/29/23 21:15 Temp 35.9 Pulse 79 Resp 18 B/P (MAP) 120/62 (81) Pulse Ox 99 O2 Delivery Room Air Capillary Refill : Less Than 3 Seconds Height, Weight, BMI Height: 5'5.00" Weight: 125lbs. 0.0oz. 56.035178ue; 24.42 BMI Method:Stated General Appearance: Anxious, Obese HEENT: PERRL/EOMI, Pharynx Normal Neck: Normal Inspection, Supple Respiratory: Lungs Clear, No Respiratory Distress Cardiovascular: Regular Rate, Rhythm, No Murmur Gastrointestinal: Normal Bowel Sounds, Soft Extremity: Normal Inspection, No Pedal Edema Neurologic/Psychiatric: Alert, Other (anxious, restless) Skin: Normal Color, Warm/Dry Results Results/Procedures Labs Laboratory Tests 09/29/23 21:30 Patient resulted labs reviewed. Imaging: Reviewed Imaging Report Assessment/Plan Admission Diagnosis Colitis Admission Status: Observation Assessment and Plan Sepsis Colitis Bright red blood per rectum Lymphadenopathy History of CLL Surgery consulted, case discussed with Dr. Newell [facility] colitis at the splenic flexure, lymphadenopathy IV fluids Zosyn Pain regimen Considering endoscopic evaluation May need outpatient biopsy T2DM Sliding scale insulin Migraines Seizure disorder TBI Hypothyroidism Anxiety Depression Continue home meds as able DVT prophylaxis: SCDs Diagnosis/Problems Diagnosis/Problems (1) Colitis Status: Acute (2) Sepsis Status: Acute (3) Lymphadenopathy Status: Acute (4) History of chronic lymphocytic leukemia Status: Chronic (5) T2DM (type 2 diabetes mellitus) Status: Chronic Qualifiers: Diabetes mellitus long-term insulin use: with long-term use (6) Migraines Status: Chronic (7) Seizure disorder Status: Chronic (8) History of traumatic brain injury Status: Chronic (9) Hypothyroidism Status: Chronic (10) Anxiety and depression Status: Chronic SHARON WEBSTER MD Sep 30, 2023 18:58
[2023-09-30 19:47] VITALS: BP 117/55
[2023-09-30] MEDS ORDERED: diphenhydrAMINE 25 MG TABLET PO PRN (20:00)
[2023-09-30] MEDS ORDERED: MELATONIN 3 MG TABLET PO PRN (20:00)
[2023-09-30] MEDS ORDERED: CALCIUM CARBONATE 500 MG CHEW TABLET PO PRN (20:00)
[2023-09-30] MEDS ORDERED: ANTACID SUSPENSION 30 ML UDC PO PRN (20:00)
[2023-09-30] MEDS ORDERED: diphenhydrAMINE INJ 50 MG/ML VIAL IVP PRN (20:00)
[2023-09-30] MEDS ORDERED: PREGABALIN 150 MG CAPSULE PO SCH (21:00)
[2023-09-30] MEDS: carBAMazepine 200 MG TABLET PO SCH (21:20)
[2023-09-30] MEDS: MONTELUKAST 10 MG TABLET PO SCH (21:20)
[2023-09-30] MEDS: ACETAMINOPHEN 325 MG TABLET PO PRN (21:21)
[2023-09-30 23:41] VITALS: BP 113/65
[2023-10-01] MEDS: LACTATED RINGERS 1,000 ML 1,000 ML IV SCH ×4 (00:54→17:06)
[2023-10-01] MEDS: PIPERACILLIN/Tazobactam 4.5 GM in NS (IVPB) 100 ML 100 ML IV SCH ×3 (00:54→15:47)
[2023-10-01 03:24] VITALS: BP 120/79
[2023-10-01] MEDS: LEVOTHYROXINE 125 MCG TABLET PO SCH (06:33)
[2023-10-01] MEDS: morphine INJ 10 MG/ML 1ML (SYR OR VIAL) IV PRN (06:33)
[2023-10-01] MEDS: inSUlin ASPART 1 UNIT/0.01 ML (PER UNIT) SC SCH ×4 (06:33→20:41)
[2023-10-01 06:46] LABS: ALBUMIN 2.6 GM/DL (3.2-4.5); BILIRUBIN,TOTAL 0.9 MG/DL (0.1-1.0); CALCIUM 7.5 MG/DL (8.5-10.1); CREATININE SERUM 1.17 MG/DL (0.60-1.30); POTASSIUM 4.1 MMOL/L (3.6-5.0); TOTAL PROTEIN 4.5 GM/DL (6.4-8.2)
[2023-10-01 06:56] LABS: BASOPHILS # (AUTO) 0.1 10^3/uL (0.0-0.1); BASOPHILS % (AUTO) 1 % (0-10)
[2023-10-01 06:57] LABS: EOSINOPHILS # (AUTO) 0.1 10^3/uL (0.0-0.3); EOSINOPHILS % (AUTO) 1 % (0-10); HEMATOCRIT 27 % (35-52); LYMPHOCYTES # (AUTO) 2.8 10^3/uL (1.0-4.0); LYMPHOCYTES % (AUTO) 18 % (12-44); MEAN CORPUSCULAR HEMOGLOBIN 31 pg (25-34); MEAN CORPUSCULAR HGB CONC 33 g/dL (32-36); MEAN CORPUSCULAR VOLUME 95 fL (80-99); MEAN PLATELET VOLUME 11.3 fL (9.0-12.2); MONOCYTES # (AUTO) 1.1 10^3/uL (0.0-1.0); MONOCYTES % (AUTO) 7 % (0-12); NEUTROPHILS # (AUTO) 11.2 10^3/uL (1.8-7.8); NEUTROPHILS % (AUTO) 73 % (42-75); PLATELET COUNT 131 10^3/uL (130-400); WHITE BLOOD COUNT 15.3 10^3/uL (4.3-11.0)
[2023-10-01 07:28] VITALS: BP 123/48
[2023-10-01] MEDS: PREGABALIN 150 MG CAPSULE PO SCH (08:42)
[2023-10-01] MEDS: PANCRELIPASE 5,000 UNITS CAPSULE PO SCH ×3 (08:42→17:18)
[2023-10-01] MEDS: carBAMazepine 200 MG TABLET PO SCH ×2 (08:44→20:41)
[2023-10-01 11:37] VITALS: BP 127/71
[2023-10-01] MEDS ORDERED: HYPOCHLOROUS ACID/NaCl WOUND SOLN 250 ML IR SCH (11:45)
[2023-10-01] MEDS ORDERED: PREG150C47 PO (13:16)
[2023-10-01] MEDS ORDERED: GLUC1VIA18 SQ (13:16)
[2023-10-01] MEDS ORDERED: LISI10TA25 PO (13:16)
[2023-10-01] MEDS ORDERED: POTA-177 PO (13:17)
[2023-10-01] MEDS ORDERED: HYDR-3817 PO (13:18)
[2023-10-01] MEDS ORDERED: ONDA4TAB11 SL (13:19)
[2023-10-01] MEDS ORDERED: ARMO250T6 PO (13:20)
[2023-10-01] MEDS ORDERED: LEVO125T6 PO (13:21)
[2023-10-01] MEDS ORDERED: LEVO5TAB28 PO (13:23)
[2023-10-01] MEDS ORDERED: DICY-11 PO (13:24)
[2023-10-01] MEDS ORDERED: FLUT15.845 NSEACH (13:27)
--- NOTE | 2023-10-01 13:43 | Progress Note - Surgery ---
Subjective Time Seen by a Provider: 11:41 Subjective/Events-last exam Pt seen and examined, she is a little altered and it is hard to tell if she is in any pain. She is moving around and will wince occasionally. She was not answering the nurse when asked about pain. Pt had a BM last night that was brown, no BMs on morning shift. states this confusion is not normal at home, but is normal when she is in hospital. Review of Systems unable to obtain, pt is really not answering Focused Exam Lactate Level 09/29/23 00:15: Lactic Acid Level 1.53 Objective Exam Vital Signs Date Time Temp Pulse Resp B/P (MAP) Pulse Ox O2 Delivery O2 Flow Rate FiO2 10/01/23 11:37 38.0 104 16 127/71 (89) 92 Room Air 10/01/23 08:40 Room Air 10/01/23 07:28 37.2 110 16 123/48 (73) 92 Room Air 10/01/23 03:24 36.8 100 18 120/79 (93) 94 Room Air 09/30/23 23:41 37.0 107 18 113/65 (81) 94 Room Air 09/30/23 21:51 37.6 09/30/23 21:21 38.2 09/30/23 20:00 Room Air 09/30/23 19:47 38.2 100 18 117/55 (75) 94 Room Air 09/30/23 18:00 38.0 09/30/23 17:37 38.0 09/30/23 16:09 38.0 102 20 122/59 (80) 97 Room Air 09/30/23 13:38 36.1 I & O 10/01/23 06:59 Intake Total 3630 ml Output Total 1050 ml Balance 2580 ml Capillary Refill : Less Than 3 Seconds General Appearance: Anxious, Obese Respiratory: Lungs Clear, Normal Breath Sounds, No Accessory Muscle Use, No Respiratory Distress Cardiovascular: Regular Rate, Rhythm, No Murmur Gastrointestinal: soft, no organomegaly; No distended; tenderness (lower central abdomen) Extremity: Normal Inspection, No Pedal Edema Neurologic/Psychiatric: Other (anxious, restless) Results Lab Laboratory Tests 09/30/23 16:28: Glucometer 102 09/30/23 20:02: Glucometer 106 10/01/23 06:15: Sodium Level 134L, Potassium Level 4.1, Chloride Level 103, Carbon Dioxide Level 23, Anion Gap 8, Blood Urea Nitrogen 13, Creatinine 1.17, Estimat Glomerular Filtration Rate 53, BUN/Creatinine Ratio 11, Glucose Level 314H, Calcium Level 7.5L, Corrected Calcium 8.6, Total Bilirubin 0.9, Aspartate Amino Transf (AST/SGOT) 70H, Alanine Aminotransferase (ALT/SGPT) 77H, Alkaline Phosphatase 159H, Total Protein 4.5L, Albumin 2.6L 10/01/23 06:18: Glucometer 319H 10/01/23 06:47: White Blood Count 15.3H, Red Blood Count 2.90L, Hemoglobin 9.0L, Hematocrit 27L, Mean Corpuscular Volume 95, Mean Corpuscular Hemoglobin 31, Mean Corpuscular Hemoglobin Concent 33, Red Cell Distribution Width 13.1, Platelet Count 131, Mean Platelet Volume 11.3, Immature Granulocyte % (Auto) 0, Neutrophils (%) (Auto) 73, Lymphocytes (%) (Auto) 18, Monocytes (%) (Auto) 7, Eosinophils (%) (Auto) 1, Basophils (%) (Auto) 1, Neutrophils # (Auto) 11.2H, Lymphocytes # (Auto) 2.8, Monocytes # (Auto) 1.1H, Eosinophils # (Auto) 0.1, Basophils # (Auto) 0.1, Immature Granulocyte # (Auto) 0.1, Percent Immature Platelet Fraction 6.4 10/01/23 10:56: Glucometer 191H 10/01/23 13:05: Ammonia 29 Microbiology 09/30/23 C. difficile GDH Antigen & Toxins - Final, Resulted 09/30/23 Stool Culture, Resulted Pending 09/29/23 Blood Culture - Preliminary, Resulted Assessment/Plan Assessment/Plan Assessment/Plan Colitis with diffuse Abdominal pain Rectal bleed with anemia - ?stopped Lymphadenopathy with hx of CLL Gastroparesis Hypokalemia Pt appears slightly altered and not answering questions, but this may be normal for her in the hospital. Her Hg did drop to 9, but she is no longer having bloody BMs. It is hard to tell if she is in pain, I believe she probably still is but I told her that I think we should hold off on doing a colonoscopy or flex sig. I don't want to risk a perforation to look at the area if she is not bleeding. I also told him I would try and get a hold of pt's Oncologist and find out timing for LN biopsy. ANNA GONZALEZ DO Oct 01, 2023 13:43
--- NOTE | 2023-10-01 14:39 | Wound Care Assessment ---
Wound Care Assessment Date Seen by Provider: Oct 01, 2023 Time Seen by Provider: 14:33 Chief Complaint Diabetic foot ulcer L heel JOANIE Elizabeth is a 63yoF with past medical history of HTN, HLD, migraines, diabetes mellitus, hypothyroidism, and CLL who presented for abdominal pain and was admitted to Dr Alfred with general surgery consulted for further evaluation. Wound care has been consulted for open wound on posterior surface of L calcaneus. She follows with Dr Xiao for wound care as an outpatient. She reports this wound opened around 1 month ago but has had wounds there that have healed in the past. She is currently scheduled to meet with podiatry on 10/08 to discuss possible gastrocnemius recession for surgical offloading of L heel related to Achilles shortening. She is not reporting any pain in her L heel. She does endorse some abdominal pain but cannot tell me exactly where her abdomen is hurting. She is not able/willing to answer my questions with more than a 1 or 2 word response. Her is present at bedside and says she gets like this when she is sick in the hospital. She reports she feels tired. She was much more communicative in the clinic when we saw her last week. She is currently undergoing workup for abdominal pain, bloody stools, and pelvic lymphadenopathy. Past Medical History: Admits Diabetes Type II, Admits Cancer, Treaments (Hc of CLL, has not required any treatments in the past); Denies Lupas, Denies Raynaud's Diseaase, Denies Scleroderma Smoking Status: Never a Smoker Recreational Drug Use: No Alcohol Use: Denies Use Review of Systems General: No Chills, No Night Sweats HEENT: No Head Aches Pulmonary: No Dyspnea, No Cough Cardiovascular: No: Chest Pain Gastrointestinal: Abdominal Pain; No: Nausea Neurological: Other (answers me with 1 or 2 word answers) Exam Vital Signs Date Time Temp Pulse Resp B/P (MAP) Pulse Ox O2 Delivery O2 Flow Rate FiO2 10/01/23 11:37 38.0 104 16 127/71 (89) 92 Room Air Capillary Refill : Less Than 3 Seconds General Appearance: no apparent distress HEENT: PERRL/EOMI Neck: supple Cardiovascular: normal peripheral pulses Respiratory: no respiratory distress, no accessory muscle use Gastrointestinal: soft Extremities: other (lesion to L heel) Neurologic/Psychiatric: alert, other (oriented to person) Skin: other (lesion to L calcaneus) Skin Character: lesion L calcaneus Full thickness without underlying bone, tendon, or muscle No tunneling or undermining moderate serosanguinous exudate no odor Margins are flat granulation is large and pink necrotic is small and slough Deepest structure 0.1 cm Results Laboratory Tests 09/30/23 16:28: Glucometer 102 09/30/23 20:02: Glucometer 106 10/01/23 06:15: Sodium Level 134L, Potassium Level 4.1, Chloride Level 103, Carbon Dioxide Level 23, Anion Gap 8, Blood Urea Nitrogen 13, Creatinine 1.17, Estimat Glomerular Filtration Rate 53, BUN/Creatinine Ratio 11, Glucose Level 314H, Calcium Level 7.5L, Corrected Calcium 8.6, Total Bilirubin 0.9, Aspartate Amino Transf (AST/SGOT) 70H, Alanine Aminotransferase (ALT/SGPT) 77H, Alkaline Phosphatase 159H, Total Protein 4.5L, Albumin 2.6L 10/01/23 06:18: Glucometer 319H 10/01/23 06:47: White Blood Count 15.3H, Red Blood Count 2.90L, Hemoglobin 9.0L, Hematocrit 27L, Mean Corpuscular Volume 95, Mean Corpuscular Hemoglobin 31, Mean Corpuscular Hemoglobin Concent 33, Red Cell Distribution Width 13.1, Platelet Count 131, Mean Platelet Volume 11.3, Immature Granulocyte % (Auto) 0, Neutrophils (%) (Auto) 73, Lymphocytes (%) (Auto) 18, Monocytes (%) (Auto) 7, Eosinophils (%) (Auto) 1, Basophils (%) (Auto) 1, Neutrophils # (Auto) 11.2H, Lymphocytes # (Auto) 2.8, Monocytes # (Auto) 1.1H, Eosinophils # (Auto) 0.1, Basophils # (Auto) 0.1, Immature Granulocyte # (Auto) 0.1, Percent Immature Platelet Fraction 6.4 10/01/23 10:56: Glucometer 191H 10/01/23 13:05: Ammonia 29 Microbiology 09/30/23 C. difficile GDH Antigen & Toxins - Final, Resulted 09/30/23 Stool Culture, Resulted Pending 09/29/23 Blood Culture - Preliminary, Resulted Microbiology 09/30/23 C. difficile GDH Antigen & Toxins - Final, Resulted 09/30/23 Stool Culture, Resulted Pending Assessment/Plan/Dx 1. L posterior calcaneus diabetic foot ulcer WG1 related to Achilles shortening 2. Colitis 3. rectal bleeding 4 Pelvic Lymphadenopathy with history of CLL 5. T2DM 6. Hypothyroidism 7. Generalized anxiety disorder and major depressive disorder Plan 1. Cleanse daily with vashe. Apply silver alginate dressing. Cover with bordered foam dressing. Change daily. Primo boots bilaterally for off loading 2-7. Per primary team, currently on Zosyn, general surgery holding endoscopy dt inflammation with risk of perforation or other damage to bowel wall. Primary team is considering consult for lymph node biopsy as outpatient. Supervisory-Addendum Brief Verification & Attestation Participated in pt care: history, MDM, physical Personally performed: exam, history, MDM, supervision of care Care discussed with: Medical Student Procedures: n/a Results interpretation: Verified all documentation APRIL GOMEZ Oct 01, 2023 14:39 ROWDY XIAO MD Oct 01, 2023 15:15
[2023-10-01 15:17] VITALS: BP 145/64
[2023-10-01] MEDS ORDERED: VANCOMYCIN INJECTION 0.1 MG in NS (IVPB) 250 ML 250 ML IV SCH (16:00)
--- NOTE | 2023-10-01 16:08 | Progress Note - Hospitalist ---
Subjective HPI/CC On Admission Date Seen by Provider: Oct 01, 2023 Chelsea Elizabeth is a 63 year old female with PMH T2DM, gastroparesis, HLD, migraines, seizures, TBI, hypothyroidism, anxiety, depression, history of CLL, who presented with abdominal pain. She reports that she was feeling well until last night. She developed pain in her abdomen which was generalized but more severe in her lower abdomen. She also had some bright red blood per rectum this morning. She denies fevers and chills. She denies nausea and vomiting. She denies diarrhea. She did feel diaphoretic and clammy. Her appetite has not been great. She reports a ~40 lbs weight loss in the past year. She has a history of CLL. She has not required any treatment and is just being monitored. Subjective/Events-last exam Pt reports doing ok. Mentation slow. Spoke with and he said outside of the hospital she is not normally like this but in the hospital her mentation is always worse. Attempted to call daughter as well. Spoke Dr Xiao about her baseline mention and variation from it. Focused Exam Lactate Level Objective Exam Vital Signs Vital Signs Date Time Temp Pulse Resp B/P (MAP) Pulse Ox O2 Delivery O2 Flow Rate FiO2 10/02/23 07:35 36.5 104 20 146/64 (91) 97 Room Air Capillary Refill : Less Than 3 Seconds General Appearance: No Apparent Distress, Chronically ill Respiratory: Lungs Clear, No Respiratory Distress Cardiovascular: Regular Rate, Rhythm, No Murmur Neurologic/Psychiatric: Alert, Other (oriented but very slow speech) Results/Procedures Lab Laboratory Tests 10/02/23 04:32 Patient resulted labs reviewed. Imaging: Reviewed Imaging Report Assessment/Plan Assessment and Plan Assess & Plan/Chief Complaint Sepsis Colitis Bright red blood per rectum Lymphadenopathy History of CLL Metabolic encephalopathy Surgery consulted, case discussed with Dr. Newell CT wth colitis at the splenic flexure, lymphadenopathy IV fluids- decrease rate Zosyn- add Vanc given persistent fever Pain regimen Considering endoscopic evaluation May need outpatient biopsy- Dr Newell to talk to [facility] oncologist Will get ABG and ammonia level PT/OT T2DM Sliding scale insulin Migraines Seizure disorder TBI Hypothyroidism Anxiety Depression Continue home meds as able Will stress dose steroids DVT prophylaxis: DBs HORACIO THOMAS MD Oct 01, 2023 16:08
[2023-10-01] MEDS ORDERED: morphine INJ 4 MG/ML 1 ML (VIAL/SYRINGE) IV PRN (16:45)
[2023-10-01] MEDS ORDERED: VANCOMYCIN 1500MG/300ML PREMIX IV NR (17:00)
[2023-10-01 17:39] LABS: ABG BASE EXCESS 0.3 MMOL/L (-2.5-2.5); ABG OXYGEN SATURATION 95 % (94-100); ABG PCO2 32 MMHG (35-45); ABG PH 7.47 (7.37-7.43); ABG PO2 65 MMHG (79-93); ABG TCO2 24.3 MMOL/L (21.0-31.0)
[2023-10-01 17:41] LABS: VENTILATOR NO
[2023-10-01] MEDS ORDERED: morphine INJ 10 MG/ML 1ML (SYR OR VIAL) IV PRN (18:00)
[2023-10-01] MEDS ORDERED: NS 100 ML (IVPB) BAG IV ONE (18:15)
[2023-10-01] MEDS ORDERED: HOLD METFORMIN - RECEIVED CONTRAST 20 ML VIAL IV SCH (18:15)
[2023-10-01] MEDS ORDERED: IOHEXOL 350 MG/ML 100 ML (OMNIPAQUE 350) VIAL IV ONE (18:15)
--- NOTE | 2023-10-01 18:52 | Diagnostic Imaging Report ---
INDICATION: Abdominal pain and gastroparesis with colonic mural thickening on recent CT study. TECHNIQUE: CTA of the abdomen and pelvis is performed prior to and after bolus intravenous administration of iodinated contrast. 3-D reformatted images were also produced. Automatic exposure controls were utilized to keep dose as low as reasonably achievable. Comparison is made to prior noncontrasted study dated 09/29/2023. FINDINGS: Partially included on the current examination is an approximately 1.5 cm nodule in the left axilla with additional smaller nodes seen in this region. There is significant dependent atelectasis and pneumonitis in the lung bases. Gallbladder is surgically absent. There is no evidence of focal hepatic abnormality. There are calcified granulomas in the spleen. Small hiatal hernia is present. There is no evidence of pancreatic or adrenal gland abnormality. Kidneys demonstrate normal enhancement bilaterally. Abdominal aorta is of normal caliber with mild atherosclerotic calcification. There is also mild atherosclerotic disease involving the superior mesenteric artery without evidence of focal stenosis, occlusion, or filling defect. Celiac trunk is widely patent. Inferior mesenteric artery is also patent. No iliofemoral stenosis or occlusion is identified. The mesenteric veins including the portal vein and the left and right portal venous branches are patent. There is diffuse mural thickening throughout the colon, most pronounced on the left and in the sigmoid regions. There are mildly prominent lymph nodes at the root of the mesentery with moderately enlarged lymph nodes in the central retroperitoneum measuring up to approximately 1.3 cm in the left periaortic region. There is more extensive bilateral pelvic adenopathy with left external iliac artery nodes reaching approximately 4 cm in long axis with right external iliac lymph node reaching approximately 2.5 cm in long axis. Urinary bladder is decompressed around a Sotelo catheter balloon. IMPRESSION: 1. No CTA evidence of mesenteric artery stenosis or filling defect. There is no evidence of portal venous or mesenteric thrombosis. 2. Extensive mural thickening in the distal colon has shown progression when compared to study of 09/29/2023 and may represent progressive colitis. No cause for ischemic colitis is visible. 3. Left axillary, central retroperitoneal, and extensive pelvic lymphadenopathy could be related to lymphoma or metastatic disease. Clinical correlation is recommended. Dictated by: Dictated on workstation # [id number]
[2023-10-01 20:17] VITALS: BP 159/70
[2023-10-01] MEDS: DICYCLOMINE 10 MG CAPSULE PO SCH (20:41)
[2023-10-01] MEDS: NORTRIPTYLINE 25 MG CAPSULE PO SCH (20:41)
[2023-10-01] MEDS: MONTELUKAST 10 MG TABLET PO SCH (20:41)
[2023-10-01] MEDS: HYDROCORTISONE INJECTION 100 MG/2 ML VIAL IV SCH (20:42)
[2023-10-01] MEDS: morphine INJ 4 MG/ML 1 ML (VIAL/SYRINGE) IV PRN (20:42)
[2023-10-02] VITALS (7 sets, daily range): BP systolic 120–152; BP diastolic 63–80
[2023-10-02] MEDS: PIPERACILLIN/Tazobactam 4.5 GM in NS (IVPB) 100 ML 100 ML IV SCH ×3 (00:09→14:57)
[2023-10-02] MEDS: morphine INJ 4 MG/ML 1 ML (VIAL/SYRINGE) IV PRN ×5 (00:09→08:44)
[2023-10-02 04:43] LABS: HEMATOCRIT 27 % (35-52); HEMOGLOBIN 9.3 g/dL (11.5-16.0); MEAN CORPUSCULAR HEMOGLOBIN 32 pg (25-34); MEAN CORPUSCULAR HGB CONC 34 g/dL (32-36); MEAN CORPUSCULAR VOLUME 94 fL (80-99); MEAN PLATELET VOLUME 11.3 fL (9.0-12.2); PLATELET COUNT 144 10^3/uL (130-400); WHITE BLOOD COUNT 22.6 10^3/uL (4.3-11.0)
[2023-10-02 04:52] LABS: ALBUMIN 2.7 GM/DL (3.2-4.5)
[2023-10-02 04:53] LABS: CALCIUM 7.9 MG/DL (8.5-10.1)
[2023-10-02 04:54] LABS: TOTAL PROTEIN 4.9 GM/DL (6.4-8.2)
[2023-10-02 04:56] LABS: BILIRUBIN,TOTAL 0.8 MG/DL (0.1-1.0)
[2023-10-02 04:58] LABS: CREATININE SERUM 0.95 MG/DL (0.60-1.30)
[2023-10-02] MEDS: HYDROCORTISONE INJECTION 100 MG/2 ML VIAL IV SCH ×3 (06:27→21:58)
[2023-10-02] MEDS: inSUlin ASPART 1 UNIT/0.01 ML (PER UNIT) SC SCH ×6 (06:27→21:54)
[2023-10-02] MEDS: DICYCLOMINE 10 MG CAPSULE PO SCH ×4 (06:34→20:21)
[2023-10-02] MEDS: PANCRELIPASE 5,000 UNITS CAPSULE PO SCH ×3 (07:27→18:08)
[2023-10-02] MEDS: carBAMazepine 200 MG TABLET PO SCH ×2 (07:27→20:21)
[2023-10-02] MEDS: PANTOPRAZOLE 40 MG TABLET PO SCH (07:27)
[2023-10-02] MEDS: FLUTICASONE NASAL SPRAY (120 SPRAYS) NS SCH (08:06)
[2023-10-02] MEDS: ALPRAZolam 0.5 MG TABLET PO PRN ×2 (08:44→21:58)
[2023-10-02] MEDS ORDERED: NON-FORMULARY MEDICATION 1 EA EA (Fluticasone Propionate 1 SPRAY) NSEACH SCH (09:00)
--- NOTE | 2023-10-02 11:04 | Progress Note - Hospitalist ---
Subjective HPI/CC On Admission Date Seen by Provider: Oct 02, 2023 Chelsea Elizabeth is a 63 year old female with PMH T2DM, gastroparesis, HLD, migraines, seizures, TBI, hypothyroidism, anxiety, depression, history of CLL, who presented with abdominal pain. She reports that she was feeling well until last night. She developed pain in her abdomen which was generalized but more severe in her lower abdomen. She also had some bright red blood per rectum this morning. She denies fevers and chills. She denies nausea and vomiting. She denies diarrhea. She did feel diaphoretic and clammy. Her appetite has not been great. She reports a ~40 lbs weight loss in the past year. She has a history of CLL. She has not required any treatment and is just being monitored. Subjective/Events-last exam Pt slightly more alert today. Asking to get some ice chips and ate a couple for me. Denied pain. Still confused. Objective Exam Vital Signs Vital Signs Date Time Temp Pulse Resp B/P (MAP) Pulse Ox O2 Delivery O2 Flow Rate FiO2 10/03/23 08:00 37.4 92 18 160/75 (103) Room Air 10/03/23 04:00 97 10/02/23 11:44 2.00 Capillary Refill : Less Than 3 Seconds General Appearance: No Apparent Distress, Chronically ill Respiratory: Lungs Clear, No Accessory Muscle Use Cardiovascular: Regular Rate, Rhythm, No Murmur Gastrointestinal: Normal Bowel Sounds, Soft Neurologic/Psychiatric: Alert, Other (slowed speech, slightly confused but less so than yesterday) Results/Procedures Lab Laboratory Tests 10/03/23 05:30 Patient resulted labs reviewed. Imaging: Reviewed Imaging Report Assessment/Plan Assessment and Plan Assess & Plan/Chief Complaint Sepsis Colitis Bright red blood per rectum Lymphadenopathy History of CLL Metabolic encephalopathy Surgery consulted, case discussed with Dr. Newell CT with colitis at the splenic flexure, lymphadenopathy- CTA without evidence of ischemia IV fluids Zosyn and Vanc Pain regimen but lowered dose due to mentation Discussed with Dr Newell regarding potential colonscopy vs diagnostic lap Ammonia normal, ABG without hypercapnia PT/OT T2DM Sliding scale insulin Migraines Seizure disorder TBI Hypothyroidism Anxiety Depression Continue home meds as able Continue stress dose steroids DVT prophylaxis: HORACIO Sutherland MD Oct 02, 2023 11:03
--- NOTE | 2023-10-02 11:47 | Physical Therapy Evaluation ---
PT Evaluation-General Medical Diagnosis Admission Date Oct 01, 2023 at 10:30 Medical Diagnosis: colitis/N/V/D/urinary retention Onset Date: Oct 01, 2023 Therapy Diagnosis Therapy Diagnosis: generalized weakness/debility Height/Weight Height (Feet): 5 Height (Inches): 5.00 Weight (Pounds): 125 Weight (Ounces): 0.0 Precautions Precautions/Isolations: Fall Prevention, Standard Precautions Referral Physician: Petty Reason for Referral: Evaluation/Treatment Medical History Pertinent Medical History: DM, HTN, Neuropathy, TBI Current History EMS secondary to abdominal pain Reviewed History: Yes Social History Home: Single Level Current Living Status: Spouse Prior Prior Level of Function SCALE: Activities may be completed with or without assistive devices. 0-Kmvmqipduc-vhvrwoj completes the activity by him/herself with no assistance from a helper. 5-Set-up or Clean-up Assistance-helper sets up or cleans up; patient completes activity. [place] assists only prior to or following the activity. 4-Supervision or Touching Assistance-helper provides verbal cues and/or touching/steadying and/or contact guard assistance as patient completes activity. Assistance may be provided throughout the activity or intermittently. 3-Partial/Moderate Assistance-helper does LESS THAN HALF the effort. [place] lifts, holds or supports trunk or limbs, but provides less than half the effort. 2-Substantial/Maximal Assistance-helper does MORE THAN HALF the effort. [place] lifts or holds trunk or limbs and provides more than half the effort. 7-Fizoeashc-joojrt does ALL the effort. Patient does none of the effort to complete the activity. Or, the assistance of 2 or more helpers is required for the patient to complete the activity. If activity was not attempted, code reason: 7-Patient Refused. 9-Not Applicable-not attempted and the patient did not perform the activity before the current illness, exacerbation or injury. 10-Not Attempted due to Environmental Limitations-(lack of equipment, weather restraints, etc.). 88-Not Attempted due to Medical Conditions or Safety Concerns. Bed Mobility: 6 Transfers (B,C,W/C): 6 Gait: 6 Indoor Mobility (Ambulation): Independent Prior Devices Use: None PT Evaluation-Current Subjective Patient is very slow to respond. Agrees to PT. ROM/Strength ROM Lower Extremities bilateral LE WFL Strength Lower Extremities 3+/5 grossly bilateral LE all planes Integumentary/Posture Bowel Incontinence: No Bladder Incontinence: Sotelo Cath Posture WFL Neuromuscular (Tone, Coordination, Reflexes) diminished coordination Sensory Vision: Functional Hearing: Functional Transfers Lying to Sitting/Side of Bed(Q: 4 Sit to Stand (QC): 4 Chair/Vry-sk-Ulzlm Xfer(QC): 4 Toilet Transfer (QC): 4 Gait Mode of Locomotion: Walk Anticipated Mode of Locomotion: Walk Walk 10 feet (QC): 4 Walk 50 ft with 2 Turns(QC): 4 Walk 150 ft (QC): 88 Distance: 50' Gait Assistive Device: FWW Comments/Gait Description slow, step to gait sequence Balance Sitting Static: Fair Sitting Dynamic: Fair Standing Static: Fair Standing Dynamic: Fair Assessment/Needs Patient will benefit from skilled PT to address functional strength and mobility to improve current LOF to safely return to home with family at maximum LOF. Rehab Potential: Fair PT Snf Goals Metal Drill Operator Goals PT Metal Drill Operator Goals Time Frame: Oct 20, 2023 Roll Left & Right (QC): 6 Sit to Lying (QC): 6 Lying-Sitting on Side/Bed(QC): 6 Sit to Stand (QC): 6 Chair/Zgz-jv-Qrwec Xfer(QC): 6 Toilet Transfer (QC): 6 Walk 10 feet (QC): 5 Walk 50ft with 2 Turns (QC): 5 Walk 150 ft (QC): 5 PT Plan Problem List Problem List: Activity Tolerance, Functional Strength, Safety, Balance, Gait, Transfer, Bed Mobility Treatment/Plan Treatment Plan: Continue Plan of Care Treatment Plan: Bed Mobility, Education, Functional Activity Jeanie, Functional Strength, Gait, Safety, Therapeutic Exercise, Transfers Treatment Duration: Oct 20, 2023 Frequency: 5 times per week Estimated Hrs Per Day: .25 hour per day Patient and/or Family Agrees t: Yes Time Time In: 1025 Time Out: 1035 DATE: Oct 02, 2023 Total Billed Treatment Time: 10 Total Billed Treatment 1 visit EVModC 10 min CEDRIC HEARN PT Oct 02, 2023 11:47
--- NOTE | 2023-10-02 13:58 | Progress Note - Surgery ---
Subjective Time Seen by a Provider: 11:12 Subjective/Events-last exam Pt seen and examined, she is more alert today and does complain of some pain. Nurse states she has not had any more bloody BMs. Review of Systems Pulmonary: No Dyspnea, No Cough Cardiovascular: No: Chest Pain Gastrointestinal: Abdominal Pain, Constipation; No: Nausea, Vomiting unable to obtain, pt is really not answering Objective Exam Vital Signs Date Time Temp Pulse Resp B/P (MAP) Pulse Ox O2 Delivery O2 Flow Rate FiO2 10/02/23 11:44 35.8 78 16 136/70 (92) 93 Nasal Cannula 2.00 10/02/23 11:40 35.6 91 16 132/78 (96) 96 Room Air 10/02/23 08:00 Room Air 10/02/23 07:35 36.5 104 20 146/64 (91) 97 Room Air 10/02/23 04:35 37.0 101 18 120/63 (82) 96 Room Air 10/02/23 00:03 36.4 103 22 136/73 (94) 95 Room Air 10/01/23 20:17 36.7 109 19 159/70 (99) 92 Room Air 10/01/23 20:00 Room Air 10/01/23 15:17 37.6 106 18 145/64 (91) 92 Room Air I & O 10/02/23 06:59 Intake Total 150 ml Output Total 1550 ml Balance -1400 ml Capillary Refill : Less Than 3 Seconds General Appearance: Chronically ill, Mild Distress Respiratory: Lungs Clear, No Accessory Muscle Use, No Respiratory Distress, Decreased Breath Sounds (at bases) Cardiovascular: Regular Rate, Rhythm, No Murmur Gastrointestinal: soft; No distended; tenderness (diffusely) Extremity: No Pedal Edema Neurologic/Psychiatric: Alert, Other (oriented but very slow speech) Results Lab Laboratory Tests 10/01/23 15:25: Glucometer 132H 10/01/23 17:37: Arterial Blood pH 7.47H, Arterial Blood Partial Pressure CO2 32L, Arterial Blood Partial Pressure O2 65L, Arterial Blood HCO3 23, Arterial Blood Total CO2 24.3, Arterial Blood Oxygen Saturation 95, Arterial Blood Base Excess 0.3, Blood Gas Ventilator Setting NO, Blood Gas Inspired Oxygen N/A 10/01/23 20:23: Glucometer 200H 10/02/23 04:32: White Blood Count 22.6H, Red Blood Count 2.92L, Hemoglobin 9.3L, Hematocrit 27L, Mean Corpuscular Volume 94, Mean Corpuscular Hemoglobin 32, Mean Corpuscular Hemoglobin Concent 34, Red Cell Distribution Width 12.8, Platelet Count 144, Mean Platelet Volume 11.3, Sodium Level 137, Potassium Level 4.0, Chloride Level 104, Carbon Dioxide Level 20L, Anion Gap 13, Blood Urea Nitrogen 12, Creatinine 0.95, Estimat Glomerular Filtration Rate 68, BUN/Creatinine Ratio 13, Glucose Level 268H, Calcium Level 7.9L, Corrected Calcium 8.9, Total Bilirubin 0.8, Aspartate Amino Transf (AST/SGOT) 22, Alanine Aminotransferase (ALT/SGPT) 51, Alkaline Phosphatase 176H, Total Protein 4.9L, Albumin 2.7L 10/02/23 11:17: Glucometer 285H Microbiology 09/30/23 C. difficile GDH Antigen & Toxins - Final, Complete 09/30/23 Stool Culture - Final, Complete See Comments 09/29/23 Blood Culture - Preliminary, Resulted Probable Coag Negative Staph See Comments Assessment/Plan Assessment/Plan Assessment/Plan Colitis with diffuse Abdominal pain - looks worse on CT from 10/01 compared to 09/29 Rectal bleed with anemia - ?stopped and Hg stable at 9 Lymphadenopathy with hx of CLL Gastroparesis Hypokalemia Pt is more alert today, but still not really answering questions; this is her normal in the hospital. I spoke with and then called her Daughter in law (TERMITE TECHNICIAN), I am concerned that there is some fluid in the abdomen and the colitis/thickening is worse; however, because her abdomen is soft I think it is still best to hold off on doing a colonoscopy or flex sig. I don't want to risk a perforation to look at the area if she is not bleeding. I also note the elevated WBC, but she did get a high dose of steroids. If her pain worsens we may also need to do a Diagnostic Laparoscopy. I am currently trying to get a hold of pt's Oncologist and find out timing for LN biopsy and if he has any other recommendations. ANNA GONZALEZ DO Oct 02, 2023 13:58
[2023-10-02] MEDS ORDERED: VANCOMYCIN 1 GM/NS 250 ML IVPB IV SCH ×2 (17:00)
[2023-10-02] MEDS: LACTATED RINGERS 1,000 ML 1,000 ML IV SCH (18:08)
[2023-10-02] MEDS: NORTRIPTYLINE 25 MG CAPSULE PO SCH (20:21)
[2023-10-02] MEDS: MONTELUKAST 10 MG TABLET PO SCH (20:21)
[2023-10-02] MEDS: ZOLPIDEM 5 MG (AMBIEN) TAB PO PRN ×2 (21:53→21:54)
[2023-10-03] VITALS: BP 144/77
[2023-10-03] MEDS: PIPERACILLIN/Tazobactam 4.5 GM in NS (IVPB) 100 ML 100 ML IV SCH ×4 (01:27→23:29)
[2023-10-03] MEDS: ONDANSETRON INJECTION 4 MG/2 ML (SDV) IV PRN ×4 (01:36→22:28)
[2023-10-03] MEDS: morphine INJ 4 MG/ML 1 ML (VIAL/SYRINGE) IV PRN ×2 (01:36→16:36)
[2023-10-03 04:00] VITALS: BP 136/72
[2023-10-03 05:41] LABS: HEMATOCRIT 24 % (35-52); MEAN CORPUSCULAR HEMOGLOBIN 31 pg (25-34); MEAN CORPUSCULAR HGB CONC 33 g/dL (32-36); MEAN CORPUSCULAR VOLUME 95 fL (80-99); MEAN PLATELET VOLUME 11.3 fL (9.0-12.2); PLATELET COUNT 156 10^3/uL (130-400); WHITE BLOOD COUNT 20.9 10^3/uL (4.3-11.0)
[2023-10-03 05:54] LABS: ALBUMIN 2.6 GM/DL (3.2-4.5); POTASSIUM 3.4 MMOL/L (3.6-5.0)
[2023-10-03 05:56] LABS: CALCIUM 7.8 MG/DL (8.5-10.1)
[2023-10-03 05:57] LABS: TOTAL PROTEIN 4.7 GM/DL (6.4-8.2)
[2023-10-03 05:59] LABS: BILIRUBIN,TOTAL 0.4 MG/DL (0.1-1.0)
[2023-10-03 06:01] LABS: CREATININE SERUM 0.81 MG/DL (0.60-1.30)
[2023-10-03] MEDS: HYDROCORTISONE INJECTION 100 MG/2 ML VIAL IV SCH (06:27)
[2023-10-03] MEDS: DICYCLOMINE 10 MG CAPSULE PO SCH ×4 (06:27→22:49)
[2023-10-03] MEDS: inSUlin ASPART 1 UNIT/0.01 ML (PER UNIT) SC SCH ×5 (06:28→22:05)
[2023-10-03 08:00] VITALS: BP 160/75
--- NOTE | 2023-10-03 08:35 | Progress Note - Surgery ---
Subjective Time Seen by a Provider: 08:22 Subjective/Events-last exam Pt seen and examined, she appears more alert today and states pain is minimal (better than yesterday). I spoke with nurse and she states last 3 BMs have been brown and liquid to semi-formed. Review of Systems Pulmonary: No Dyspnea, No Cough Gastrointestinal: Abdominal Pain; No: Nausea, Vomiting Objective Exam Vital Signs Date Time Temp Pulse Resp B/P (MAP) Pulse Ox O2 Delivery O2 Flow Rate FiO2 10/03/23 08:00 37.4 92 18 160/75 (103) Room Air 10/03/23 04:00 36.0 86 16 136/72 (93) 97 Room Air 10/03/23 00:00 36.0 86 16 144/77 (99) 97 Room Air 10/02/23 20:00 Room Air 10/02/23 19:06 36.3 91 16 152/80 (104) 97 Room Air 10/02/23 15:33 36.5 89 18 148/73 (98) 97 Room Air 10/02/23 11:44 35.8 78 16 136/70 (92) 93 Nasal Cannula 2.00 10/02/23 11:40 35.6 91 16 132/78 (96) 96 Room Air I & O 10/03/23 07:00 Intake Total 940 ml Output Total 980 ml Balance -40 ml Capillary Refill : Less Than 3 Seconds General Appearance: No Apparent Distress, Chronically ill Respiratory: Lungs Clear, No Accessory Muscle Use, No Respiratory Distress, D ecreased Breath Sounds (at bases) Cardiovascular: Regular Rate, Rhythm, No Murmur Gastrointestinal: soft; No distended; tenderness (improved compared to yesterday) Extremity: No Pedal Edema Neurologic/Psychiatric: Alert, Other (oriented but very slow speech) Results Lab Laboratory Tests 10/02/23 11:17: Glucometer 285H 10/02/23 20:11: Glucometer 194H 10/03/23 05:30: White Blood Count 20.9H, Red Blood Count 2.56L, Hemoglobin 8.0L, Hematocrit 24L, Mean Corpuscular Volume 95, Mean Corpuscular Hemoglobin 31, Mean Corpuscular Hemoglobin Concent 33, Red Cell Distribution Width 12.7, Platelet Count 156, Mean Platelet Volume 11.3, Sodium Level 139, Potassium Level 3.4L, Chloride Level 106, Carbon Dioxide Level 22, Anion Gap 11, Blood Urea Nitrogen 13, Creatinine 0.81, Estimat Glomerular Filtration Rate 83, BUN/Creatinine Ratio 16, Glucose Level 230H, Calcium Level 7.8L, Corrected Calcium 8.9, Total Bilirubin 0.4, Aspartate Amino Transf (AST/SGOT) 10, Alanine Aminotransferase (ALT/SGPT) 33, Alkaline Phosphatase 141H, Total Protein 4.7L, Albumin 2.6L Microbiology 09/30/23 C. difficile GDH Antigen & Toxins - Final, Complete 09/30/23 Stool Culture - Final, Complete See Comments 09/29/23 Blood Culture - Preliminary, Resulted Staphylococcus capitis See Comments Assessment/Plan Assessment/Plan Assessment/Plan Colitis with diffuse Abdominal pain - looks worse on CT from 10/01 compared to 09/29 Rectal bleed - stopped Anemia - Hg down to 8 today Lymphadenopathy with hx of CLL Gastroparesis Hypokalemia Pt is more alert today and seems to be answering questions; this is improved. I think her abdomen is softer and less painful today compared to yesterday and therefore think it is still best to hold off on doing a colonoscopy or flex sig. I don't want to risk a perforation to look at the area if she is not bleeding. I also note the elevated WBC, but she did get a high dose of steroids and it dropped a little today. I got a hold of pt's Oncologist and he does not think she will need a LN biopsy. Will continue non-operative managment. ANNA GONZALEZ DO Oct 03, 2023 08:35
[2023-10-03] MEDS: PANTOPRAZOLE 40 MG TABLET PO SCH (08:43)
[2023-10-03] MEDS: PANCRELIPASE 5,000 UNITS CAPSULE PO SCH ×3 (08:43→16:28)
[2023-10-03] MEDS: carBAMazepine 200 MG TABLET PO SCH ×2 (08:43→22:49)
[2023-10-03] MEDS: FLUTICASONE NASAL SPRAY (120 SPRAYS) NS SCH (08:44)
--- NOTE | 2023-10-03 09:58 | Physical Therapy Daily Note ---
PT Daily Note-Current Subjective Patient lying supine in bed upon PT arrival, agreeable to treatment. Patient rates pain at 0/10 currently. Pain Section J - Health Conditions 1. Rarely or not at all 2. Occasionally 3. Frequently 4. Almost constantly 8. Unable to answer Pain Effect on Sleep: 8 Pain Interference with Therapy: 8 Pain Interference w/Day-to-Day: 8 Transfers SCALE: Activities may be completed with or without assistive devices. 2-Rteemhdyqp-dfarhgg completes the activity by him/herself with no assistance from a helper. 5-Set-up or Clean-up Assistance-helper sets up or cleans up; patient completes activity. [place] assists only prior to or following the activity. 4-Supervision or Touching Assistance-helper provides verbal cues and/or touching/steadying and/or contact guard assistance as patient completes activity. Assistance may be provided throughout the activity or intermittently. 3-Partial/Moderate Assistance-helper does LESS THAN HALF the effort. [place] lif ts, holds or supports trunk or limbs, but provides less than half the effort. 2-Substantial/Maximal Assistance-helper does MORE THAN HALF the effort. [place] lifts or holds trunk or limbs and provides more than half the effort. 7-Fhhwohouo-yyigna does ALL the effort. Patient does none of the effort to complete the activity. Or, the assistance of 2 or more helpers is required for the patient to complete the activity. If activity was not attempted, code reason: 7-Patient Refused. 9-Not Applicable-not attempted and the patient did not perform the activity before the current illness, exacerbation or injury. 10-Not Attempted due to Environmental Limitations-(lack of equipment, weather restraints, etc.). 88-Not Attempted due to Medical Conditions or Safety Concerns. Roll Left & Right (QC): 3 Sit to Lying (QC): 3 Lying to Sitting/Side of Bed(Q: 3 Sit to Stand (QC): 3 Chair/Ciy-vk-Chtbu Xfer(QC): 3 Gait Training Does the Patient Walk?: Yes Distance: 20' Walk 10 feet (QC): 3 Gait Persons Needed: 1 Gait Assistive Device: FWW Assessment Current Status: Poor Progress Patient very unsteady this treatment. Reports she feels sick and like she may vomit. Patient performs all observed bed mobility and transfers with min A. Patient ambulates 20' with FWW, with min A and frequent verbal cues for performance, progression, use of the FWW and safety. Patient in chair post treatment with all needs met nursing notified, call light in hand and chair alarm activated. PT Infrastructure Manager Goals Infrastructure Manager Goals PT Group Home Goals Time Frame: Oct 20, 2023 Roll Left & Right (QC): 6 Sit to Lying (QC): 6 Lying-Sitting on Side/Bed(QC): 6 Sit to Stand (QC): 6 Chair/Lue-nk-Ravly Xfer(QC): 6 Toilet Transfer (QC): 6 Walk 10 feet (QC): 5 Walk 50ft with 2 Turns (QC): 5 Walk 150 ft (QC): 5 PT Plan Treatment/Plan Treatment Plan: Continue Plan of Care Treatment Plan: Bed Mobility, Education, Functional Activity Jeanie, Functional Strength, Gait, Safety, Therapeutic Exercise, Transfers Treatment Duration: Oct 20, 2023 Frequency: 5 times per week Estimated Hrs Per Day: .25 hour per day Patient and/or Family Agrees t: Yes Safety Risks/Education Patient Education: Gait Training, Transfer Techniques Teaching Recipient: Patient Teaching Methods: Demonstration, Discussion Response to Teaching: Reinforcement Needed Time Time In: 955 Time Out: 1010 DATE: Oct 03, 2023 Total Billed Treatment Time: 15 Total Billed Treatment Visit, GT HARJEET TRIVEDI PT Oct 03, 2023 09:58
--- NOTE | 2023-10-03 10:37 | Progress Note - Hospitalist ---
Subjective HPI/CC On Admission Date Seen by Provider: Oct 03, 2023 Chelsea Elizabeth is a 63 year old female with PMH T2DM, gastroparesis, HLD, migraines, seizures, TBI, hypothyroidism, anxiety, depression, history of CLL, who presented with abdominal pain. She reports that she was feeling well until last night. She developed pain in her abdomen which was generalized but more severe in her lower abdomen. She also had some bright red blood per rectum this morning. She denies fevers and chills. She denies nausea and vomiting. She denies diarrhea. She did feel diaphoretic and clammy. Her appetite has not been great. She reports a ~40 lbs weight loss in the past year. She has a history of CLL. She has not required any treatment and is just being monitored. Subjective/Events-last exam Pt reports doing better today. More alert. Still a little confused but answering questions much more quickly today. Denies pain. Objective Exam Vital Signs Vital Signs Date Time Temp Pulse Resp B/P (MAP) Pulse Ox O2 Delivery O2 Flow Rate FiO2 10/03/23 08:00 37.4 92 18 160/75 (103) Room Air 10/03/23 04:00 97 10/02/23 11:44 2.00 Capillary Refill : Less Than 3 Seconds General Appearance: No Apparent Distress, Chronically ill Respiratory: Lungs Clear Cardiovascular: Regular Rate, Rhythm, No Murmur Gastrointestinal: Normal Bowel Sounds, Soft Neurologic/Psychiatric: Alert, Oriented x3 Results/Procedures Lab Laboratory Tests 10/03/23 05:30 Patient resulted labs reviewed. Imaging: Reviewed Imaging Report Assessment/Plan Assessment and Plan Assess & Plan/Chief Complaint Sepsis Colitis Bright red blood per rectum Lymphadenopathy History of CLL Metabolic encephalopathy Surgery consulted, apprecaite recs CT with colitis at the splenic flexure, lymphadenopathy- CTA without evidence of ischemia IV fluids Zosyn, will DC vanc Pain regimen Discussed with Dr Newell regarding potential colonscopy vs diagnostic lap- planning to continue to monitor for now PT/OT T2DM Sliding scale insulin Migraines Seizure disorder TBI Hypothyroidism Anxiety Depression Continue home meds as able Continue stress dose steroids DVT prophylaxis: HORACIO Sutherland MD Oct 03, 2023 10:37
[2023-10-03] MEDS: FLUDROCORTISONE 0.1 MG TABLET PO SCH (11:11)
[2023-10-03 12:30] VITALS: BP 147/76
[2023-10-03] MEDS: LACTATED RINGERS 1,000 ML 1,000 ML IV SCH (15:44)
[2023-10-03] MEDS ORDERED: TROUGH ORDER-PHARMACY XX NR (16:00)
[2023-10-03 16:05] VITALS: BP 156/79
[2023-10-03] MEDS: ACETAMINOPHEN 325 MG TABLET PO PRN (16:28)
[2023-10-03 19:13] VITALS: BP 163/77
[2023-10-03] MEDS: MONTELUKAST 10 MG TABLET PO SCH (22:49)
[2023-10-03] MEDS: ALPRAZolam 0.5 MG TABLET PO PRN (22:50)
[2023-10-03] MEDS: ZOLPIDEM 5 MG (AMBIEN) TAB PO PRN ×2 (22:50)
[2023-10-03] MEDS: NORTRIPTYLINE 25 MG CAPSULE PO SCH (22:50)
[2023-10-03] MEDS ORDERED: PROCHLORPERAZINE 25 MG PR PRN (23:00)
[2023-10-04 00:20] VITALS: BP 160/70
[2023-10-04 03:19] VITALS: BP 146/67
[2023-10-04 05:15] LABS: HEMATOCRIT 26 % (35-52); HEMOGLOBIN 8.6 g/dL (11.5-16.0); MEAN CORPUSCULAR HEMOGLOBIN 31 pg (25-34); MEAN CORPUSCULAR HGB CONC 34 g/dL (32-36); MEAN CORPUSCULAR VOLUME 94 fL (80-99); MEAN PLATELET VOLUME 11.4 fL (9.0-12.2); PLATELET COUNT 174 10^3/uL (130-400); WHITE BLOOD COUNT 16.3 10^3/uL (4.3-11.0)
[2023-10-04 05:43] LABS: ALBUMIN 2.7 GM/DL (3.2-4.5); POTASSIUM 2.9 MMOL/L (3.6-5.0)
[2023-10-04 05:44] LABS: CALCIUM 7.9 MG/DL (8.5-10.1)
[2023-10-04 05:46] LABS: TOTAL PROTEIN 4.9 GM/DL (6.4-8.2)
[2023-10-04 05:48] LABS: BILIRUBIN,TOTAL 0.3 MG/DL (0.1-1.0)
[2023-10-04 05:49] LABS: CREATININE SERUM 0.77 MG/DL (0.60-1.30)
[2023-10-04] MEDS: inSUlin ASPART 1 UNIT/0.01 ML (PER UNIT) SC SCH ×4 (05:58→20:26)
[2023-10-04] MEDS: DICYCLOMINE 10 MG CAPSULE PO SCH ×4 (05:58→20:26)
[2023-10-04 07:06] VITALS: BP 174/75
[2023-10-04] MEDS ORDERED: NS IV 500 ML 500 ML IV PRN (08:00)
[2023-10-04] MEDS: PIPERACILLIN/Tazobactam 4.5 GM in NS (IVPB) 100 ML 100 ML IV SCH ×2 (08:16→15:48)
[2023-10-04] MEDS: FLUTICASONE NASAL SPRAY (120 SPRAYS) NS SCH (08:17)
[2023-10-04] MEDS: carBAMazepine 200 MG TABLET PO SCH ×2 (08:17→20:25)
[2023-10-04] MEDS: POTASSIUM CL 10MEQ/50ML IVPB 50 ML IV SCH ×4 (08:17→11:00)
[2023-10-04] MEDS: PANTOPRAZOLE 40 MG TABLET PO SCH (08:17)
[2023-10-04] MEDS: PANCRELIPASE 5,000 UNITS CAPSULE PO SCH ×3 (08:21→17:09)
[2023-10-04] MEDS: FLUDROCORTISONE 0.1 MG TABLET PO SCH (08:21)
--- NOTE | 2023-10-04 10:34 | Physical Therapy Daily Note ---
PT Daily Note-Current Subjective Patient more alert and oriented on this date. Spouse present. Pain Section J - Health Conditions 1. Rarely or not at all 2. Occasionally 3. Frequently 4. Almost constantly 8. Unable to answer Pain Effect on Sleep: 1 Pain Interference with Therapy: 1 Pain Interference w/Day-to-Day: 1 Transfers SCALE: Activities may be completed with or without assistive devices. 4-Clbuykzduh-xbmuhyk completes the activity by him/herself with no assistance from a helper. 5-Set-up or Clean-up Assistance-helper sets up or cleans up; patient completes activity. [place] assists only prior to or following the activity. 4-Supervision or Touching Assistance-helper provides verbal cues and/or touching/steadying and/or contact guard assistance as patient completes activity. Assistance may be provided throughout the activity or intermittently. 3-Partial/Moderate Assistance-helper does LESS THAN HALF the effort. [place] lifts, holds or supports trunk or limbs, but provides less than half the effort. 2-Substantial/Maximal Assistance-helper does MORE THAN HALF the effort. [place] lifts or holds trunk or limbs and provides more than half the effort. 5-Dqxuuucwm-patpjp does ALL the effort. Patient does none of the effort to complete the activity. Or, the assistance of 2 or more helpers is required for the patient to complete the activity. If activity was not attempted, code reason: 7-Patient Refused. 9-Not Applicable-not attempted and the patient did not perform the activity before the current illness, exacerbation or injury. 10-Not Attempted due to Environmental Limitations-(lack of equipment, weather restraints, etc.). 88-Not Attempted due to Medical Conditions or Safety Concerns. Sit to Stand (QC): 5 Gait Training Distance: 200' Walk 10 feet (QC): 5 Walk 50 ft with 2 Turns(QC): 5 Walk 150 ft (QC): 5 Gait Assistive Device: FWW slow, steady gait sequence/requires redirection to remain on task due to TBI Assessment Patient remains up in recliner with needs met. Patient reports she wants to go home soon. Continue to increase activity as tolerated by patient. PT Rail Car Driver Goals [facility] Goals PT Rail Car Driver Goals Time Frame: Oct 20, 2023 Roll Left & Right (QC): 6 Sit to Lying (QC): 6 Lying-Sitting on Side/Bed(QC): 6 Sit to Stand (QC): 6 Chair/Bzi-qt-Knqmb Xfer(QC): 6 Toilet Transfer (QC): 6 Walk 10 feet (QC): 5 Walk 50ft with 2 Turns (QC): 5 Walk 150 ft (QC): 5 PT Plan Treatment/Plan Treatment Plan: Continue Plan of Care Treatment Plan: Bed Mobility, Education, Functional Activity Jeanie, Functional Strength, Gait, Safety, Therapeutic Exercise, Transfers Treatment Duration: Oct 20, 2023 Frequency: 5 times per week Estimated Hrs Per Day: .25 hour per day Patient and/or Family Agrees t: Yes Time Time In: 904 Time Out: 914 DATE: Oct 04, 2023 Total Billed Treatment Time: 10 Total Billed Treatment 1 visit FA 10 min CEDRIC HEARN PT Oct 04, 2023 10:34
[2023-10-04] MEDS: LACTATED RINGERS 1,000 ML 1,000 ML IV SCH (11:00)
[2023-10-04 11:20] VITALS: BP 168/74
[2023-10-04] MEDS: ONDANSETRON INJECTION 4 MG/2 ML (SDV) IV PRN (11:46)
--- NOTE | 2023-10-04 12:13 | Progress Note - Hospitalist ---
Subjective HPI/CC On Admission Date Seen by Provider: Oct 04, 2023 Chelsea Elizabeth is a 63 year old female with PMH T2DM, gastroparesis, HLD, migraines, seizures, TBI, hypothyroidism, anxiety, depression, history of CLL, who presented with abdominal pain. She reports that she was feeling well until last night. She developed pain in her abdomen which was generalized but more severe in her lower abdomen. She also had some bright red blood per rectum this morning. She denies fevers and chills. She denies nausea and vomiting. She denies diarrhea. She did feel diaphoretic and clammy. Her appetite has not been great. She reports a ~40 lbs weight loss in the past year. She has a history of CLL. She has not required any treatment and is just being monitored. Subjective/Events-last exam Pt reports doing much better today. Speaking in full sentences. No complaints. Pain improved. at bedside and I spoke to son just before he left as well. Objective Exam Vital Signs Vital Signs Date Time Temp Pulse Resp B/P (MAP) Pulse Ox O2 Delivery O2 Flow Rate FiO2 10/04/23 11:20 36.4 91 17 168/74 (105) 97 Room Air 10/02/23 11:44 2.00 Capillary Refill : Less Than 3 Seconds General Appearance: No Apparent Distress, WD/WN Respiratory: Lungs Clear, No Respiratory Distress Cardiovascular: Regular Rate, Rhythm, No Murmur Gastrointestinal: Normal Bowel Sounds, Soft Neurologic/Psychiatric: Alert, Oriented x3 Results/Procedures Lab Laboratory Tests 10/04/23 05:10 Patient resulted labs reviewed. Imaging: Reviewed Imaging Report Assessment/Plan Assessment and Plan Assess & Plan/Chief Complaint Sepsis Colitis Bright red blood per rectum Lymphadenopathy History of CLL Metabolic encephalopathy Surgery consulted, apprecaite recs CT with colitis at the splenic flexure, lymphadenopathy- CTA without evidence of ischemia Zosyn Pain regimen Discussed with Dr Newell regarding potential colonscopy vs diagnostic lap- planning to continue to monitor for now Much improved today PT/OT T2DM Sliding scale insulin Migraines Seizure disorder TBI Hypothyroidism Anxiety Depression Continue home meds as able Continue steroids DVT prophylaxis: HORACIO Sutherland MD Oct 04, 2023 12:12
--- NOTE | 2023-10-04 13:53 | Progress Note - Surgery ---
Subjective Time Seen by a Provider: 10:22 Subjective/Events-last exam Pt seen and examined, she is tolerating diet and looks even more alert today (the best she has been since she has been here); agrees. She is having brown BMs. Review of Systems General: No Chills, No Night Sweats Pulmonary: No Dyspnea, No Cough Cardiovascular: No: Chest Pain, Palpitations Gastrointestinal: Abdominal Pain; No: Nausea, Vomiting Objective Exam Vital Signs Date Time Temp Pulse Resp B/P (MAP) Pulse Ox O2 Delivery O2 Flow Rate FiO2 10/04/23 11:20 36.4 91 17 168/74 (105) 97 Room Air 10/04/23 08:00 Room Air 10/04/23 07:06 37.3 95 18 174/75 (108) 95 Room Air 10/04/23 03:19 36.0 94 18 146/67 (93) 97 Room Air 10/04/23 00:20 36.5 88 18 160/70 (100) 97 Room Air 10/03/23 20:00 Room Air 10/03/23 19:13 36.0 88 18 163/77 (105) 98 Room Air 10/03/23 16:05 36.4 86 18 156/79 (104) 98 Room Air I & O 10/04/23 06:59 Intake Total 440 ml Output Total 650 ml Balance -210 ml Capillary Refill : Less Than 3 Seconds General Appearance: No Apparent Distress, WD/WN Respiratory: Lungs Clear, No Accessory Muscle Use, No Respiratory Distress Cardiovascular: Regular Rate, Rhythm, No Murmur Gastrointestinal: soft; No distended; tenderness (improved compared to yesterday) Extremity: No Pedal Edema Neurologic/Psychiatric: Alert, Oriented x3 Results Lab Laboratory Tests 10/03/23 14:46: Glucometer 233H 10/03/23 19:40: Glucometer 173H 10/03/23 21:40: Glucometer 200H 10/04/23 04:40: Magnesium Level 1.6 10/04/23 05:10: White Blood Count 16.3H, Red Blood Count 2.74L, Hemoglobin 8.6L, Hematocrit 26L, Mean Corpuscular Volume 94, Mean Corpuscular Hemoglobin 31, Mean Corpuscular Hemoglobin Concent 34, Red Cell Distribution Width 13.1, Platelet Count 174, Mean Platelet Volume 11.4, Sodium Level 141, Potassium Level 2.9L, Chloride Level 105, Carbon Dioxide Level 20L, Anion Gap 16H, Blood Urea Nitrogen 9, Creatinine 0.77, Estimat Glomerular Filtration Rate 88, BUN/Creatinine Ratio 12, Glucose Level 254H, Calcium Level 7.9L, Corrected Calcium 8.9, Total Bilirubin 0.3, Aspartate Amino Transf (AST/SGOT) 9, Alanine Aminotransferase (ALT/SGPT) 27, Alkaline Phosphatase 132, Total Protein 4.9L, Albumin 2.7L 10/04/23 10:12: Glucometer 179H Microbiology 09/30/23 C. difficile GDH Antigen & Toxins - Final, Complete 09/30/23 Stool Culture - Final, Complete See Comments 09/29/23 Blood Culture - Final, Complete Staphylococcus capitis See Comments Assessment/Plan Assessment/Plan Assessment/Plan Colitis with diffuse Abdominal pain - seems to be improving Rectal bleed - stopped Anemia - Hg stable at 8.6 today Lymphadenopathy with hx of CLL Gastroparesis Hypokalemia Pt is alert today and her abdomen is softer and less painful today compared to yesterday. Her WBC is trending down, Hg stable and therefore think it is still best to hold off on doing a colonoscopy or flex sig. Will continue non-operative managment and plan for scope as outpt, unless something changes. ANNA GONZALEZ DO Oct 04, 2023 13:53
[2023-10-04 15:21] VITALS: BP 151/67
[2023-10-04 19:10] VITALS: BP 161/70
[2023-10-04] MEDS: MONTELUKAST 10 MG TABLET PO SCH (20:26)
[2023-10-04] MEDS: NORTRIPTYLINE 25 MG CAPSULE PO SCH (20:26)
[2023-10-05] VITALS: BP 166/74
[2023-10-05] MEDS: PIPERACILLIN/Tazobactam 4.5 GM in NS (IVPB) 100 ML 100 ML IV SCH (01:38)
[2023-10-05] MEDS: ONDANSETRON INJECTION 4 MG/2 ML (SDV) IV PRN (01:40)
[2023-10-05 04:11] VITALS: BP 170/77
[2023-10-05] MEDS: DICYCLOMINE 10 MG CAPSULE PO SCH ×2 (05:08→11:10)
[2023-10-05 05:22] LABS: HEMATOCRIT 26 % (35-52); HEMOGLOBIN 8.6 g/dL (11.5-16.0); MEAN CORPUSCULAR HEMOGLOBIN 31 pg (25-34); MEAN CORPUSCULAR HGB CONC 33 g/dL (32-36); MEAN CORPUSCULAR VOLUME 95 fL (80-99); MEAN PLATELET VOLUME 11.1 fL (9.0-12.2); PLATELET COUNT 215 10^3/uL (130-400); WHITE BLOOD COUNT 17.7 10^3/uL (4.3-11.0)
[2023-10-05 05:40] LABS: ALBUMIN 2.8 GM/DL (3.2-4.5); POTASSIUM 3.2 MMOL/L (3.6-5.0)
[2023-10-05 05:41] LABS: CALCIUM 7.9 MG/DL (8.5-10.1)
[2023-10-05] MEDS: inSUlin ASPART 1 UNIT/0.01 ML (PER UNIT) SC SCH ×3 (05:43→15:14)
[2023-10-05 05:44] LABS: BILIRUBIN,TOTAL 0.3 MG/DL (0.1-1.0)
[2023-10-05 05:46] LABS: CREATININE SERUM 0.91 MG/DL (0.60-1.30)
[2023-10-05 08:15] VITALS: BP 167/74
[2023-10-05] MEDS: PANCRELIPASE 5,000 UNITS CAPSULE PO SCH ×2 (09:07→13:03)
[2023-10-05] MEDS: FLUDROCORTISONE 0.1 MG TABLET PO SCH (09:07)
[2023-10-05] MEDS: PANTOPRAZOLE 40 MG TABLET PO SCH (09:07)
[2023-10-05] MEDS: carBAMazepine 200 MG TABLET PO SCH (09:08)
[2023-10-05] MEDS: FLUTICASONE NASAL SPRAY (120 SPRAYS) NS SCH (09:08)
--- NOTE | 2023-10-05 10:07 | Physical Therapy Progress Note ---
Therapy Progress Note Patient to ambulate with nursing or family PRN in hallway. Patient is currently at PLOF with all gross motor skills safely and does not requires continued skilled PT intervention. PT to dismiss patient from services at this time. CEDRCI HEARN PT Oct 05, 2023 10:07
--- NOTE | 2023-10-05 11:33 | Progress Note - Surgery ---
Subjective Time Seen by a Provider: 11:01 Subjective/Events-last exam Pt seen and examined, no complaints. She is sitting up in bed and denies abdominal pain, tolerating clears. She states she is getting a regular diet for lunch and if she tolerates it she can go home. Review of Systems Pulmonary: No Dyspnea, No Cough Cardiovascular: No: Chest Pain, Palpitations Gastrointestinal: No: Nausea, Vomiting, Abdominal Pain Objective Exam Vital Signs Date Time Temp Pulse Resp B/P (MAP) Pulse Ox O2 Delivery O2 Flow Rate FiO2 10/05/23 08:15 36.6 92 17 167/74 (105) 96 Room Air 10/05/23 08:00 96 Nasal Cannula 2.00 10/05/23 04:11 36.7 88 18 170/77 (108) 95 Room Air 10/05/23 00:00 36.6 89 16 166/74 (104) 96 Room Air 10/04/23 20:00 Room Air 10/04/23 19:10 37.0 89 18 161/70 (100) 98 Room Air 10/04/23 15:21 36.8 93 16 151/67 (95) 97 Room Air I & O 10/05/23 06:59 Intake Total 2580 ml Output Total 250 ml Balance 2330 ml Capillary Refill : Less Than 3 Seconds General Appearance: No Apparent Distress, WD/WN Respiratory: Lungs Clear, No Accessory Muscle Use, No Respiratory Distress Cardiovascular: Regular Rate, Rhythm, No Murmur Gastrointestinal: soft; No distended; tenderness (with deep palpation) Extremity: No Pedal Edema Neurologic/Psychiatric: Alert, Oriented x3 Results Lab Laboratory Tests 10/04/23 15:02: Glucometer 341H 10/04/23 19:52: Glucometer 280H 10/05/23 01:45: Glucometer 210H 10/05/23 05:12: White Blood Count 17.7H, Red Blood Count 2.74L, Hemoglobin 8.6L, Hematocrit 26L, Mean Corpuscular Volume 95, Mean Corpuscular Hemoglobin 31, Mean Corpuscular Hemoglobin Concent 33, Red Cell Distribution Width 13.3, Platelet Count 215, Mean Platelet Volume 11.1, Sodium Level 139, Potassium Level 3.2L, Chloride Level 105, Carbon Dioxide Level 17L, Anion Gap 17H, Blood Urea Nitrogen 6L, Creatinine 0.91, Estimat Glomerular Filtration Rate 72, BUN/Creatinine Ratio 7, Glucose Level 322H, Calcium Level 7.9L, Corrected Calcium 8.9, Total Bilirubin 0.3, Aspartate Amino Transf (AST/SGOT) 11, Alanine Aminotransferase (ALT/SGPT) 23, Alkaline Phosphatase 126, Total Protein 5.0L, Albumin 2.8L 10/05/23 05:16: Glucometer 308H 10/05/23 09:39: Glucometer 209H Microbiology 09/30/23 C. difficile GDH Antigen & Toxins - Final, Complete 09/30/23 Stool Culture - Final, Complete See Comments 09/29/23 Blood Culture - Final, Complete Staphylococcus capitis See Comments Assessment/Plan Assessment/Plan Assessment/Plan Colitis with diffuse Abdominal pain - seems to be improving Rectal bleed - stopped Anemia - Hg stable Lymphadenopathy with hx of CLL Gastroparesis Hypokalemia Pt is alert today and her abdomen is softer and less painful today compared to yesterday. Her WBC is trending down, Hg stable and therefore think it is still best to hold off on doing a colonoscopy or flex sig. Will continue non-operative managment and plan for scope as outpt, unless something changes. I told pt I would be happy to see her as an outpt or she can see her GI doctor up at . ANNA GONZALEZ DO Oct 05, 2023 11:33
[2023-10-05 12:24] VITALS: BP 191/74
--- NOTE | 2023-10-05 12:36 | D/C HH Face to Face Order ---
D/C Face to Face Orders Instructions for Patient Via [facility], Patient Instructions/FollowUp: Please continue to take your medications as written. Please follow up with your primary care doctor to follow up this hospital stay. Physician to follow Patient: Dr Patton Discharge Diet for Home: No Restrictions Patient Data-Allergies,Ht & Wt Patient Allergies: Coded Allergies: metoclopramide (Verified Allergy, Severe, INVOLUNTARY MOVEMENTS, 09/29/23) Sulfa (Sulfonamide Antibiotics) (Verified Allergy, Mild, HIVES, 09/29/23) Height (Feet): 5 Height (Inches): 5.00 Weight (Pounds): 125 Weight (Ounces): 0.0 Home Health Need/Face to Face Date of Face to Face: Oct 05, 2023 Clinical Findings: Generalized weakness and fatigue I have seen Pt [id number]: Yes Discharged To: Home Diagnosis/Conditions: Colitis Patient is Homebound due to: [place] fall risk due to instabilty Homebound Status Due to the above stated illness, injury or surgical procedure (medical condition or diagnosis) and associated clinical findings, the patient is homebound because of his/her inability to leave home except with aid of a supportive device and/or person AND leaving the home requires a considerable and taxing effort or is medically contraindicated. Pt req the following assistanc: Aid of another person, [place] Home Health Nursing Orders Home Health Services Order: Nursing Services, Physician President-Evaluate & Treat, Physical Therapy-Evaluate & Treat Home Health Infusion Therapy Line Start Date: Sep 29, 2023 Therapy Orders Therapy Orders: OT (must have SN or PT order), Physical Therapy Therapy Specific Orders: Eval assistive deivces, Teach enviro modifications/safety, Gait training, Increase strength/endurance [facility] that this patient is under my care and that I, a nurse practitioner or a physician; a periodontal assistant working with me, had a face to face encounter that - meets the physician face to face encounter requirements with this patient as dated. HORACIO THOMAS MD Oct 05, 2023 12:35
[2023-10-05] MEDS ORDERED: AMOX1TAB12 PO (12:56)
[2023-10-05] MEDS: ACETAMINOPHEN 325 MG TABLET PO PRN (13:04)
--- NOTE | 2023-10-05 13:12 | Discharge Summary ---
Diagnosis/Chief Complaint Date of Admission Oct 01, 2023 at 10:30 Date of Discharge Discharge Date: Oct 05, 2023 Admission Diagnosis Colitis [facility] Migue Patton DO Discharge Diagnosis (1) Colitis Status: Acute (2) Sepsis Status: Acute (3) Lymphadenopathy Status: Acute (4) History of chronic lymphocytic leukemia Status: Chronic (5) T2DM (type 2 diabetes mellitus) Status: Chronic (6) Migraines Status: Chronic (7) Seizure disorder Status: Chronic (8) History of traumatic brain injury Status: Chronic (9) Hypothyroidism Status: Chronic (10) Anxiety and depression Status: Chronic Discharge Summary Discharge Physical Exam Allergies: Coded Allergies: metoclopramide (Verified Allergy, Severe, INVOLUNTARY MOVEMENTS, 09/29/23) Sulfa (Sulfonamide Antibiotics) (Verified Allergy, Mild, HIVES, 09/29/23) Vitals & I&Os Vital Signs Date Time Temp Pulse Resp B/P (MAP) Pulse Ox O2 Delivery O2 Flow Rate FiO2 10/05/23 12:24 36.6 86 17 191/74 (113) 97 Room Air 10/05/23 08:00 2.00 Hospital Course Labs (last 24 hrs) Laboratory Tests 10/04/23 15:02: Glucometer 341H 10/04/23 19:52: Glucometer 280H 10/05/23 01:45: Glucometer 210H 10/05/23 05:12: White Blood Count 17.7H, Red Blood Count 2.74L, Hemoglobin 8.6L, Hematocrit 26L, Mean Corpuscular Volume 95, Mean Corpuscular Hemoglobin 31, Mean Corpuscular Hemoglobin Concent 33, Red Cell Distribution Width 13.3, Platelet Count 215, Mean Platelet Volume 11.1, Sodium Level 139, Potassium Level 3.2L, Chloride Level 105, Carbon Dioxide Level 17L, Anion Gap 17H, Blood Urea Nitrogen 6L, Cr eatinine 0.91, Estimat Glomerular Filtration Rate 72, BUN/Creatinine Ratio 7, Glucose Level 322H, Calcium Level 7.9L, Corrected Calcium 8.9, Total Bilirubin 0.3, Aspartate Amino Transf (AST/SGOT) 11, Alanine Aminotransferase (ALT/SGPT) 23, Alkaline Phosphatase 126, Total Protein 5.0L, Albumin 2.8L 10/05/23 05:16: Glucometer 308H 10/05/23 09:39: Glucometer 209H Microbiology 09/30/23 C. difficile GDH Antigen & Toxins - Final, Complete 09/30/23 Stool Culture - Final, Complete See Comments 09/29/23 Blood Culture - Final, Complete Staphylococcus capitis See Comments Patient resulted labs reviewed. Pending Labs Laboratory Tests 10/05/23 05:16: Glucometer 308 10/05/23 09:39: Glucometer 209 Imaging: Reviewed Imaging Report Discharge Home Medications: Active Scripts Active Amox Tr-K Clv 875-125 mg Tab (Amoxicillin/Potassium Clav) 875 Mg-125 Mg Tablet 1 Each PO BID Reported Fluticasone Propionate 50 Mcg/Actuation [place].susp 1 [place] NSEACH DAILY Dicyclomine HCl 10 Mg Capsule 10 Mg PO ACHS Xyzal (Levocetirizine Dihydrochloride) 5 Mg Tablet 5 Mg PO DAILY Levothyroxine Sodium 125 Mcg Tablet 125 Mcg PO DAILY Armodafinil 250 Mg Tablet 375 Mg PO DAILY TAKES 1 AND 1/2 OF (250MG) TAB Ondansetron Odt (Ondansetron) 4 Mg Tab.rapdis 4 Mg SL Q4H PRN Hydrocodone-Acetamin 7.5-325 (Hydrocodone/Acetaminophen) 7.5 Mg-325 Mg Tablet 1 Each PO BID PRN Potassium Chloride 10 Meq Tab.er.prt 10 Meq PO DAILY Pregabalin 150 Mg Capsule 300 Mg PO HS TAKES 2 (150MG) CAPS Lisinopril 10 Mg Tablet 10 Mg PO DAILY Gvoke (Glucagon) 1 Mg/0.2 Ml Vial 1 Mg SQ DAILY PRN Ambien (Zolpidem Tartrate) 10 Mg Tablet 10 Mg PO HS Vitamin D3 (Cholecalciferol (Vitamin D3)) 125 Mcg Capsule 125 Mcg PO DAILY Zanaflex (Tizanidine HCl) 4 Mg Capsule 4 Mg PO HS PRN Tegretol Xr (Carbamazepine) 200 Mg Tab.er.12h 200 Mg PO BID Maxalt (Rizatriptan Benzoate) 10 Mg Tablet 10 Mg PO PRN PRN Russel [place] 36,000 Units Capsule (Lipase/Protease/Amylase) 36K-114K Capsule.dr 2 Each PO TIDAC Fludrocortisone Acetate 0.1 Mg Tab 0.1 Mg PO DAILY Toviaz (Fesoterodine Fumarate) 4 Mg Tab.sr.24h 4 Mg PO DAILY [Domperidone] 10 Mg PO TIDAC THE PATIENT SAYS SHE GETS IN [place], WAS UNABLE TO VERIFY Nortriptyline HCl 25 Mg Capsule 75 Mg PO HS TAKES 3 (25MG) CAPS Tresiba Flextouch U-100 (Insulin Degludec) 100 Unit/Ml (3 Ml) Insuln.pen 10 Units SQ HS Lyrica (Pregabalin) 150 Mg Capsule 150 Mg PO DAILY Montelukast Sodium 10 Mg Tablet 10 Mg PO DAILY Atorvastatin Calcium 40 Mg Tablet 40 Mg PO DAILY Pantoprazole Sodium 40 Mg Tablet.dr 40 Mg PO DAILY Alprazolam 1 Mg Tablet 1 Mg PO QID PRN Instructions to patient/family Please see electronic discharge instructions given to patient. Problem Qualifiers (1) T2DM (type 2 diabetes mellitus): Diabetes mellitus battery container tester insulin use: with battery container tester use HORACIO THOMAS MD Oct 05, 2023 13:12
[2023-10-05] MEDS: LACTATED RINGERS 1,000 ML 1,000 ML IV SCH (15:15)
== END 2023-10-05 15:00 | disposition home health service (06) | DRG 871 ==
LOC: EDUNIT# 21:10 → ER 21:12 → 4TH 09-30 03:11 → OBSVTOIN 10-01 10:30
PROVIDERS: ADMIT Internal Medicine; ATTEND Internal Medicine
DX: A41.9 Sepsis, unspecified organism (principal); G93.41 Metabolic encephalopathy; K62.5 Hemorrhage of anus and rectum; R18.8 Other ascites; K52.9 Noninfective gastroenteritis and colitis, unspecified; R59.1 Generalized enlarged lymph nodes; Z85.6 Personal history of leukemia; G43.909 Migraine, unspecified, not intractable, without status migrainosus; G40.909 Epilepsy, unspecified, not intractable, without status epilepticus; E03.9 Hypothyroidism, unspecified; F41.9 Anxiety disorder, unspecified; F32.A Depression, unspecified; Z87.820 Personal history of traumatic brain injury; E11.621 Type 2 diabetes mellitus with foot ulcer; L97.529 Non-pressure chronic ulcer of other part of left foot with unspecified severity; D64.9 Anemia, unspecified; E11.43 Type 2 diabetes mellitus with diabetic autonomic (poly)neuropathy; K31.84 Gastroparesis; E87.6 Hypokalemia
CPT/HCPCS: 36415; 36600; 51702; 74174; 74177; 80053; 81000; 82140; 82805; 82947; 83605; 83615; 83690; 83735; 84439; 84443; 85007; 85025; 85027; 85610; 85730; 86141; 87015; 87040; 87045; 87046; 87077; 87324; 87449; 87899; G0378

== ENCOUNTER → 2023-10-09 | Outpatient (CLI) | payer MEDICARE, MEDICAID ==
[~2023-10-09] MED LIST changes: +AMOX1TAB12 PO; +ARMO250T6 PO; +DICY-11 PO; +FLUT15.845 NSEACH; +GLUC1VIA18 SQ; +HYDR-3817 PO; +LEVO125T6 PO; +LEVO5TAB28 PO; +LISI10TA25 PO; +POTA-177 PO; +PREG150C47 PO
== END ==
LOC: WOUNDCARE 14:31
PROVIDERS: ATTEND Family Medicine
DX: I96 Gangrene, not elsewhere classified (principal); E11.621 Type 2 diabetes mellitus with foot ulcer; E11.65 Type 2 diabetes mellitus with hyperglycemia; L97.422 Non-pressure chronic ulcer of left heel and midfoot with fat layer exposed; R26.89 Other abnormalities of gait and mobility; M67.02 Short Achilles tendon (acquired), left ankle; D51.3 Other dietary vitamin B12 deficiency anemia; D50.9 Iron deficiency anemia, unspecified; D46.4 Refractory anemia, unspecified
CPT/HCPCS: 11042; A6212; G0463

== ENCOUNTER → 2023-10-22 | Outpatient (CLI) | payer MEDICARE, MEDICAID ==
[2023-10-22 14:39] LABS: BASOPHILS # (AUTO) 0.1 10^3/uL (0.0-0.1); BASOPHILS % (AUTO) 0 % (0-10); EOSINOPHILS # (AUTO) 0.4 10^3/uL (0.0-0.3); EOSINOPHILS % (AUTO) 2 % (0-10); HEMATOCRIT 27 % (35-52); HEMOGLOBIN 8.6 g/dL (11.5-16.0); LYMPHOCYTES # (AUTO) 8.2 10^3/uL (1.0-4.0); LYMPHOCYTES % (AUTO) 48 % (12-44); MEAN CORPUSCULAR HEMOGLOBIN 31 pg (25-34); MEAN CORPUSCULAR HGB CONC 33 g/dL (32-36); MEAN CORPUSCULAR VOLUME 94 fL (80-99); MEAN PLATELET VOLUME 10.8 fL (9.0-12.2); MONOCYTES # (AUTO) 1.4 10^3/uL (0.0-1.0); MONOCYTES % (AUTO) 8 % (0-12); NEUTROPHILS % (AUTO) 41 % (42-75); PLATELET COUNT 185 10^3/uL (130-400); WHITE BLOOD COUNT 17.2 10^3/uL (4.3-11.0)
[2023-10-22 15:03] LABS: BASOPHILS % (MANUAL) 0 %; EOSINOPHILS % (MANUAL) 1 %; LYMPHOCYTES % (MANUAL) 47 %; MONOCYTES % (MANUAL) 5 %; NEUTROPHILS % (MANUAL) 47 %
[2023-10-22 15:04] LABS: RBC MORPH NORMAL
== END ==
LOC: WOUNDCARE 13:32
PROVIDERS: ATTEND Family Medicine
DX: E11.621 Type 2 diabetes mellitus with foot ulcer (principal); E11.65 Type 2 diabetes mellitus with hyperglycemia; L97.422 Non-pressure chronic ulcer of left heel and midfoot with fat layer exposed; R26.89 Other abnormalities of gait and mobility; M67.02 Short Achilles tendon (acquired), left ankle; D51.3 Other dietary vitamin B12 deficiency anemia; D50.8 Other iron deficiency anemias; D46.4 Refractory anemia, unspecified; I10 Essential (primary) hypertension; E11.52 Type 2 diabetes mellitus with diabetic peripheral angiopathy with gangrene
CPT/HCPCS: 11042; 82607; 82728; 82746; 83540; 83550; 84134; 85007; 85027; A6212; G0463; 36415